=== PATIENT | male | born 1955 | race American Indian/Alaskan Native ===

== ENCOUNTER 2017-03-16 01:04 | Emergency (ER) | payer MEDICAID ==
--- NOTE | 2017-03-16 06:25 | Emergency Department Report ---
ED General Adult HPI - General Chief complaint: Back Pain/Injury Stated complaint: BACK & NECK PAIN Time Seen by Provider: 03/16/17 06:24 Source: patient Mode of arrival: Ambulatory Limitations: No Limitations - History of Present Illness Initial comments: Patient states that he is here for chronic neck and back pain. He denies any difficulty with his bowel movements or any change in his ability to urinate. He is end-stage renal failure patient on dialysis. This is his dialysis today. He reports no neurological change. He states he is scheduled for a lumbar fusion on Monday. He presents to the emergency department hypertensive. He states he last took his blood pressure medicine last night. -: year(s) Location: neck, back Radiation: non-radiation Quality: aching Consistency: intermittent Improves with: none Worsens with: none Associated Symptoms: denies other symptoms (intermittent mild shortness of breath), shortness of breath Treatments Prior to Arrival: none - Related Data Home Medications Medication Instructions Recorded Confirmed Last Taken Clonidine HCl [Catapres] 0.3 mg PO BID 05/21/15 02/13/17 02/13/17 05:00 Lisinopril [Zestril TAB] 20 mg PO BID 05/21/15 02/13/17 02/12/17 oxyCODONE [Roxicodone TAB] 5 mg PO Q6HR PRN 02/13/17 02/13/17 02/12/17 15:00 Previous Rx's Medication Instructions Recorded Last Taken Type Sulfamethoxazole/Trimethoprim 1 each PO BID #20 tablet 05/21/15 02/12/17 Rx [Bactrim DS TAB] Allergies Allergy/AdvReac Type Severity Reaction Status Date / Time aspirin Allergy Unknown Verified 03/16/17 01:25 bee venom (honey bee) Allergy Anaphylaxis Verified 03/16/17 01:27 pork derived (porcine) Allergy Rash Verified 03/16/17 01:27 Pork/Porcine Containing AdvReac Severe Nausea,VOMI Verified 02/13/17 09:31 Products TING ED Review of Systems ROS: Stated complaint: BACK & NECK PAIN Other details as noted in HPI Constitutional: denies: chills, fever Eyes: denies: eye pain, eye discharge, vision change ENT: denies: ear pain, throat pain Respiratory: SOB with exertion. denies: cough, SOB at rest, wheezing Cardiovascular: denies: chest pain, palpitations Endocrine: no symptoms reported Gastrointestinal: denies: abdominal pain, nausea, diarrhea Genitourinary: denies: urgency, dysuria Musculoskeletal: as per HPI, back pain. 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, dialysis - Surgical History Past Surgical History?: Yes Additional Surgical History: neck and back surgery x3 - Social History Smoking Status: Never Smoker Substance Use Type: None - Medications Home Medications: Home Medications Medication Instructions Recorded Confirmed Last Taken Type Clonidine HCl [Catapres] 0.3 mg PO BID 05/21/15 02/13/17 02/13/17 05:00 History Lisinopril [Zestril TAB] 20 mg PO BID 05/21/15 02/13/17 02/12/17 History Sulfamethoxazole/Trimethoprim 1 each PO BID #20 tablet 05/21/15 02/13/17 Rx [Bactrim DS TAB] oxyCODONE [Roxicodone TAB] 5 mg PO Q6HR PRN 02/13/17 02/13/17 02/12/17 15:00 History ED Physical Exam - General Limitations: No Limitations General appearance: alert, in no apparent distress - Head Head exam: Present: atraumatic, normocephalic - Eye Eye exam: Present: normal appearance. Absent: scleral icterus - ENT ENT exam: Present: mucous membranes moist - Neck Neck exam: Present: normal inspection, full ROM. Absent: tenderness, meningismus - Respiratory Respiratory exam: Present: normal lung sounds bilaterally. Absent: respiratory distress - Cardiovascular Cardiovascular Exam: Present: regular rate, normal rhythm. Absent: systolic murmur, diastolic murmur, rubs, gallop - GI/Abdominal GI/Abdominal exam: Present: soft, normal bowel sounds. Absent: distended, tenderness, guarding, rebound - Rectal Rectal exam: Present: deferred - Extremities Exam Extremities exam: Present: normal inspection, full ROM, other (straight-leg raises negative bilaterally) - Back Exam Back exam: Present: normal inspection - Neurological Exam Neurological exam: Present: alert, oriented X3, CN II-XII intact, reflexes normal (symmetrical). Absent: motor sensory deficit - Psychiatric Psychiatric exam: Present: normal affect, normal mood - Skin Skin exam: Present: warm, dry, intact, normal color. Absent: rash ED Course Vital Signs 03/16/17 03/16/17 03/16/17 01:11 01:14 01:16 Temperature 97.6 F 97.6 F 97.6 F Pulse Rate 45 L 88 88 Respiratory 18 18 18 Rate Blood Pressure 189/98 189/98 Blood Pressure 189/98 [Right] O2 Sat by Pulse 100 100 100 Oximetry 03/16/17 03/16/17 03/16/17 04:36 04:45 04:46 Temperature 97.4 F L Pulse Rate 83 Respiratory 19 Rate Blood Pressure 142/122 Blood Pressure 202/123 [Right] O2 Sat by Pulse 98 99 100 Oximetry 03/16/17 03/16/17 08:20 08:30 Temperature Pulse Rate Respiratory 16 Rate Blood Pressure 184/84 Blood Pressure [Right] O2 Sat by Pulse Oximetry - Reevaluation(s) Reevaluation #1: The patient was seen by the hospitalist nurse practitioner Kelly. She told me that the patient has elected to sign out AGAINST MEDICAL ADVICE. She advised the patient of the risks and benefits. He will be signing out AMA. I' ve given him Kayexalate as his potassium was 5.4. 03/16/17 10:37 ED Medical Decision Making - Lab Data Result diagrams: 03/16/17 07:51 03/16/17 07:51 Laboratory Results - last 24 hr 03/16/17 03/16/17 03/16/17 07:51 07:51 07:51 WBC 4.3 L RBC 3.52 L Hgb 11.5 L Hct 35.1 L MCV 100 H MCH 33 H MCHC 33 RDW 16.3 H Plt Count 134 L Lymph % (Auto) 31.9 [place] % (Auto) 10.8 H Eos % (Auto) 3.8 Baso % (Auto) 1.2 Lymph # 1.4 [place] # 0.5 Eos # 0.2 Baso # 0.1 Seg Neutrophils % 52.3 Seg Neutrophils # 2.3 PT 16.1 H INR 1.30 H APTT 33.1 Sodium 140 Potassium 5.4 H Chloride 96.4 L Carbon Dioxide 27 Anion Gap 22 BUN 36 H Creatinine 7.0 H Estimated GFR 10 BUN/Creatinine Ratio 5.14 Glucose 88 Calcium 10.0 Total Bilirubin 0.70 Direct Bilirubin 0.3 H Indirect Bilirubin 0.4 AST 25 ALT 19 Alkaline Phosphatase 70 Troponin T Total Protein 7.0 Albumin 3.6 L Albumin/Globulin Ratio 1.1 Triglycerides Cholesterol LDL Cholesterol Direct HDL Cholesterol Cholesterol/HDL Ratio 03/16/17 07:51 WBC RBC Hgb Hct MCV MCH MCHC RDW Plt Count Lymph % (Auto) [place] % (Auto) Eos % (Auto) Baso % (Auto) Lymph # [place] # Eos # Baso # Seg Neutrophils % Seg Neutrophils # PT INR APTT Sodium Potassium Chloride Carbon Dioxide Anion Gap BUN Creatinine Estimated GFR BUN/Creatinine Ratio Glucose Calcium Total Bilirubin Direct Bilirubin Indirect Bilirubin AST ALT Alkaline Phosphatase Troponin T 0.236 H* Total Protein Albumin Albumin/Globulin Ratio Triglycerides 71 Cholesterol 103 LDL Cholesterol Direct 43 L HDL Cholesterol 46 Cholesterol/HDL Ratio 2.23 - EKG Data -: EKG Interpreted by Me EKG shows normal: sinus rhythm, axis (left anterior fascicular block), intervals , QRS complexes, ST-T waves - EKG Data Interpretation: LVH (LVH 1 PVC noted and evidence of acute ischemia she was in V2 possibly consistent with old anteroseptal zone) - Radiology Data interpreted by me: Cardio megaly without decompensation on chest x-ray Critical care attestation.: If time is entered above; I have spent that time in minutes in the direct care of this critically ill patient, excluding procedure time. ED Disposition Clinical Impression: Uncontrolled hypertension, End-stage renal disease needing dialysis, Hyperkalemia, Elevated troponin Disposition: [id number] LEFT AGAINST MED ADVICE Is pt being admited?: No Does the pt Need Aspirin: No Condition: Stable Instructions: Hypertension (ED), End-Stage Kidney Disease (ED) Additional Instructions: Review of blood pressure is poorly controlled, your heart marker was elevated, your potassium was elevated. There were multiple reasons for used to be admitted for further stabilization on dialysis. You have elected to sign out AGAINST MEDICAL ADVICE. I would recommend that you go to dialysis clinic today. Referrals: HUGO FELIZ MD [Primary Care Provider] - [place] Forms: AMA Form Time of Disposition: 10:40
[2017-03-16] MEDS ORDERED: BENADRYL IV ONE (06:47)
[2017-03-16] MEDS ORDERED: MORPHINE IV ONE (06:47)
[2017-03-16] MEDS ORDERED: ZOFRAN IV ONE (06:47)
[2017-03-16] MEDS ORDERED: NORMODYNE IV ONE (06:48)
--- NOTE | 2017-03-16 07:40 | XRay Report ---
Single view chest: History: Hypertension. Findings: Cardiomegaly. Trachea is midline. No consolidation, pneumothorax or pleural effusion. Impression: Cardiomegaly. No lung changes.
[2017-03-16 08:01] LABS: Basophils % (Auto) 1.2 % (0.0-1.8); Eosinophils % (Auto) 3.8 % (0.0-4.3); Hematocrit 35.1 % (35.5-45.6); Hemoglobin 11.5 gm/dl (11.8-15.2); Mean Corpuscular HGB Conc 33 % (32-34); Mean Corpuscular Hemoglobin 33 pg (28-32); Mean Corpuscular Volume 100 fl (84-94); Platelet Count 134 K/mm3 (140-440); Red Blood Count 3.52 M/mm3 (3.65-5.03); Red Cell Distribution Width 16.3 % (13.2-15.2); White Blood Count 4.3 K/mm3 (4.5-11.0)
[2017-03-16 08:10] LABS: INR 1.3 (0.87-1.13)
[2017-03-16 08:12] LABS: Partial Thromboplastin Time 33.1 Sec. (24.2-36.6)
[2017-03-16 08:28] LABS: Alanine Aminotransferase 19 units/L (7-56); Albumin 3.6 g/dL (3.9-5); Albumin/Globulin Ratio 1.1 %; Alkaline Phosphatase 70 units/L (35-129); Anion Gap 22 mmol/L; BUN/Creatinine Ratio 5.14; Bilirubin,Direct 0.3 mg/dL (0-0.2); Bilirubin,Indirect 0.4 mg/dL; Blood Urea Nitrogen 36 mg/dL (9-20); Carbon Dioxide 27 mmol/L (22-30); Chloride 96.4 mmol/L (98-107); Glucose 88 mg/dL (75-100); Potassium 5.4 mmol/L (3.6-5.0); Sodium 140 mmol/L (137-145)
[2017-03-16] MEDS ORDERED: NITRO-BID 2% TP ONE (08:32)
[2017-03-16] MEDS ORDERED: KIONEX PO ONE (10:36)
[2017-03-16 12:29] VITALS: BP 155/103
== END 2017-03-16 11:42 | disposition left against medical advice (07) ==
LOC: ED 01:04
DX: I13.11 Hypertensive heart and chronic kidney disease without heart failure, with stage 5 chronic kidney disease, or end stage renal disease (principal); N18.6 End stage renal disease; Z99.2 Dependence on renal dialysis; E87.5 Hyperkalemia; R79.89 Other specified abnormal findings of blood chemistry
CPT/HCPCS: 36415; 71010; 80048; 80061; 80074; 83880; 84484; 85025; 85610; 85730; 93005; 93010; 96374; 96375; 99284; J1200; J2270; J2405

== ENCOUNTER 2018-08-18 18:35 | Inpatient (IN) | payer MEDICAID ==
--- NOTE | 2018-08-18 20:31 | Emergency Department Report ---
ED Chest Pain HPI - General Chief Complaint: Chest Pain Stated Complaint: CHEST PAIN Time Seen by Provider: 08/18/18 19:37 Source: patient Mode of arrival: Ambulatory Limitations: Physical Limitation - History of Present Illness Initial Comments: 71-year-old male with history of ESRD, CHF, afib, chronic respiratory failure, hypertension and diabetes presents to the ED with complaint of left-sided chest pain that began this evening. Onset while at rest, patient states he was laying in the bed. Patient states pain feels like a constant pressure. Also reports shortness of breath. Reports swelling to bilateral feet. Patient states he was dialyzed today. Nepgrology: Dr Blum PCP: Dr Alhaji WASSERMAN Complaint: chest pain -: This evening Onset: during rest Pain Location: left chest Pain Radiation: none Severity: moderate Severity scale (0 -10): 9 Quality: pressure Consistency: constant Improves With: nothing Worsens With: nothing re: diaphoresis, dyspnea Other Symptoms: denies: cough, fever Treatments Prior to Arrival: none - Related Data Previous Rx's Medication Instructions Recorded Last Taken Type Acetaminophen [Acetaminophen TAB] 650 mg PO Q4H PRN tablet 05/05/18 Unknown Rx FLUoxetine HCL [Fluoxetine HCl] 40 mg PO QDAY #30 capsule 05/05/18 Unknown Rx Famotidine [Pepcid] 10 mg PO BID #15 tablet 05/05/18 Unknown Rx Fe Fumarate/FA/Mv, Min Comb#15 1 each PO QDAY #30 capsule 05/05/18 Unknown Rx [Hemocyte Plus] Losartan [Cozaar] 100 mg PO QDAY 30 Days tablet 05/05/18 Unknown Rx Metoprolol Xl [Metoprolol 100 mg PO QDAY #30 tablet 05/05/18 Unknown Rx SUCCINATE ER TAB] diphenhydrAMINE [Benadryl CAP] 25 mg PO Q6H PRN #15 capsule 05/05/18 Unknown Rx oxyCODONE /ACETAMINOPHEN [Percocet 1 tab PO Q6H PRN #20 tablet 05/05/18 Unknown Rx 5/325 mg] Allergies Allergy/AdvReac Type Severity Reaction Status Date / Time aspirin Allergy Unknown Verified 03/16/17 01:25 pork derived (porcine) Allergy Rash Verified 03/16/17 01:27 venom-honey bee Allergy Anaphylaxis Verified 03/16/17 01:27 [bee venom (honey bee)] Pork/Porcine Containing AdvReac Severe Nausea,VOMI Verified 02/13/17 09:31 Products TING Heart Score - HEART Score History: Slightly suspicious EKG: Non-specific Age: > 65 Risk factors: 1-2 risk factors Troponin: 1-3x normal limit HEART Score: 5 ED Review of Systems ROS: Stated complaint: CHEST PAIN Other details as noted in HPI Comment: All other systems reviewed and negative Constitutional: denies: fever Respiratory: shortness of breath Cardiovascular: chest pain Musculoskeletal: other (reports pedal edema) ED Past Medical Hx - Past Medical History Previous Medical History?: Yes Hx Hypertension: Yes Hx Heart Attack/AMI: No Hx Congestive Heart Failure: Yes Hx Diabetes: Yes (IDDM) Hx Deep Vein Thrombosis: No Hx Renal Disease: No Hx Kidney Stones: No Hx Psychiatric Treatment: Yes (PTSD) Hx Asthma: No Hx COPD: No Additional medical history: 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, dialysis - Surgical History Past Surgical History?: Yes Hx Coronary Stent: No Hx Pacemaker: No Hx Internal Defibrillator: No Additional Surgical History: neck and back surgery x3 - Social History Smoking Status: Unknown if ever smoked Substance Use Type: None - Medications Home Medications: Home Medications Medication Instructions Recorded Confirmed Last Taken Type Acetaminophen [Acetaminophen TAB] 650 mg PO Q4H PRN tablet 05/05/18 Unknown Rx FLUoxetine HCL [Fluoxetine HCl] 40 mg PO QDAY #30 capsule 05/05/18 Unknown Rx Famotidine [Pepcid] 10 mg PO BID #15 tablet 05/05/18 Unknown Rx Fe Fumarate/FA/Mv, Min Comb#15 1 each PO QDAY #30 capsule 05/05/18 Unknown Rx [Hemocyte Plus] Losartan [Cozaar] 100 mg PO QDAY 30 Days tablet 05/05/18 Unknown Rx Metoprolol Xl [Metoprolol 100 mg PO QDAY #30 tablet 05/05/18 Unknown Rx SUCCINATE ER TAB] diphenhydrAMINE [Benadryl CAP] 25 mg PO Q6H PRN #15 capsule 05/05/18 Unknown Rx oxyCODONE /ACETAMINOPHEN [Percocet 1 tab PO Q6H PRN #20 tablet 05/05/18 Unknown Rx 5/325 mg] ED Physical Exam - General Limitations: Physical Limitation General appearance: alert, in no apparent distress, other (appears frail) - Head Head exam: Present: atraumatic, normocephalic - Eye Eye exam: Present: normal appearance - ENT ENT exam: Present: mucous membranes moist - Neck Neck exam: Present: normal inspection - Respiratory Respiratory exam: Present: normal lung sounds bilaterally. Absent: respiratory distress - Cardiovascular Cardiovascular Exam: Present: regular rate, normal rhythm - GI/Abdominal GI/Abdominal exam: Present: soft. Absent: distended, tenderness - Extremities Exam Extremities exam: Present: pedal edema. Absent: calf tenderness - Neurological Exam Neurological exam: Present: alert, oriented X3 - Psychiatric Psychiatric exam: Present: normal affect, normal mood - Skin Skin exam: Present: warm, dry, intact, normal color ED Course Vital Signs 08/18/18 08/18/18 08/18/18 19:16 19:27 19:31 Temperature 98.7 F Pulse Rate 92 H 94 H 91 H Respiratory 14 14 24 Rate Blood Pressure 157/122 156/111 O2 Sat by Pulse 100 100 Oximetry 08/18/18 08/18/18 08/18/18 19:45 20:01 20:15 Temperature Pulse Rate 86 98 H 88 Respiratory 16 17 23 Rate Blood Pressure 156/111 149/112 160/115 O2 Sat by Pulse 100 100 100 Oximetry 08/18/18 08/18/18 08/18/18 20:31 20:45 21:01 Temperature Pulse Rate 89 92 H 94 H Respiratory 19 31 H 25 H Rate Blood Pressure 160/111 153/124 145/117 O2 Sat by Pulse 100 100 100 Oximetry 08/18/18 08/18/18 08/18/18 21:15 21:30 21:45 Temperature Pulse Rate 88 88 87 Respiratory 23 22 31 H Rate Blood Pressure 151/115 161/116 159/116 O2 Sat by Pulse 100 100 100 Oximetry 08/19/18 08/19/18 00:57 01:00 Temperature Pulse Rate 88 84 Respiratory Rate Blood Pressure 156/113 151/113 O2 Sat by Pulse Oximetry ED Medical Decision Making - Lab Data Result diagrams: 08/18/18 19:51 08/18/18 19:58 - EKG Data -: EKG Interpreted by Ri EKG shows normal: intervals, QRS complexes Rate: normal - EKG Data When compared to previous EKG there are: no significant change (04/24/18) Interpretation: no acute changes, other (Afib, LAFB) - Radiology Data Radiology results: pending, image reviewed CXR: moderate sized left-sided pleural effusion w/ adjacent consolidation. Small to moderate right-sided pleural effusion w/ hazy opacities right mid to lower lung. Findings are nonspecific and could reflect bilateral pneumonia or edema. Radiology reports not crossing into [place] due to tech issues; results faxed to ED - Medical Decision Making 71-year-old male who issues and seizure related disease and CHF who presents to ED with left-sided constant chest pain since earlier today. Reports associated shortness of breath as well. Patient has large bilateral pleural effusions, left greater than right. Also a consolidation in left upper lobe. Patient is afebrile, wbc's normal, however will cover with a dose of Levaquin for possible pneumonia. EKG shows A. fib with normal rate, no ST changes. Troponin elevated 0.2, however this may be due to patient's renal disease. Unable to give aspirin as patient is allergic. Spoke with Dr Saez, hospitalist, for admission. - Differential Diagnosis ACS, pneumonia, pulm edema Critical care attestation.: If time is entered above; I have spent that time in minutes in the direct care of this critically ill patient, excluding procedure time. ED Disposition Clinical Impression: Pleural effusion, Chest pain Disposition: OP ADMIT IP TO THIS HOSP Is pt being admited?: Yes Condition: Stable Time of Disposition: 22:48
[2018-08-18 20:36] LABS: Basophils % (Auto) 0.5 % (0.0-1.8); Eosinophils % (Auto) 0.5 % (0.0-4.3); Hematocrit 27.7 % (35.5-45.6); Hemoglobin 9.4 gm/dl (11.8-15.2); Lymphocytes # (Auto) 0.9 K/mm3 (1.2-5.4); Lymphocytes % (Auto) 22.1 % (13.4-35.0); Mean Corpuscular HGB Conc 34 % (32-34); Mean Corpuscular Volume 98 fl (84-94); Monocytes # (Auto) 0.3 K/mm3 (0.0-0.8); Monocytes % (Auto) 7.5 % (0.0-7.3); Red Blood Count 2.82 M/mm3 (3.65-5.03)
[2018-08-18 20:46] LABS: Platelet Count 82 K/mm3 (140-440); Red Cell Distribution Width 22.8 % (13.2-15.2)
[2018-08-18 20:49] LABS: Calcium 8.2 mg/dL (8.4-10.2)
[2018-08-18 20:50] LABS: INR 1.33 (0.87-1.13); Partial Thromboplastin Time 36.1 Sec. (24.2-36.6)
[2018-08-18] MEDS ORDERED: MORPHINE IV ONE (21:03)
[2018-08-18] MEDS ORDERED: ZOFRAN IV ONE (21:03)
[2018-08-18] MEDS ORDERED: K-DUR PO ONE (21:30)
[2018-08-18] MEDS ORDERED: LEVAQUIN 750MG/150ML 750 MG/150 ML BAG IV ONE (22:47)
--- NOTE | 2018-08-18 22:57 | History and Physical Report ---
History of Present Illness Date of examination: 08/18/18 History of present illness: 71-year-old man with a history of end-stage renal disease on dialysis, hypertension, CHF, A. fib, coronary artery disease, PTSD comes emergency room with complaints of chest pain. Pain is in the left chest which he describes as sharp pain, feeling like someone stepping on it, constant, intensity 5/10, no radiation, Other than her exacerbating or relieving factors. Denies nausea vomiting, diaphoresis or palpitation. He has baseline shortness of breath which has not worsened, also complaining of cough, nonproductive, no fever or chills Review of systems Constitutional: no weight loss, chills, fever Ears, eyes, nose, mouth and throat: no nasal congestion, no nasal discharge, no sinus pressure, no vision change, no red eye. Neck: No neck pain or rigidity. Cardiovascular: no palpitations Respiratory: + cough, shortness of breath Gastrointestinal: no hematochezia, abdominal pain Genitourinary : no frequency , no hematuria Musculoskeletal: no joint swelling or muscle ache Integumentary: no rash, no pruritis Neurological: no parathesias, no focal weakness Endocrine: no cold or heat intolerance, no polyuria or polydipsia Hematologic/Lymphatic: no easy bruising, no easy bleeding, no gland swelling Allergic/Immunologic: no urticaria, no angioedema. PAST MEDICAL HISTORY: end-stage renal disease on dialysis, hypertension, CHF, A. fib PAST SURGICAL HISTORY: Left arm amputation, multiple fingers amputation, AV fistula, neck and back surgery SOCIAL HISTORY: Denies alcohol, drugs, tobacco FAMILY HISTORY: Hypertension Medications and Allergies Allergies Allergy/AdvReac Type Severity Reaction Status Date / Time aspirin Allergy Unknown Verified 03/16/17 01:25 pork derived (porcine) Allergy Rash Verified 03/16/17 01:27 venom-honey bee Allergy Anaphylaxis Verified 03/16/17 01:27 [bee venom (honey bee)] Pork/Porcine Containing AdvReac Severe Nausea,VOMI Verified 02/13/17 09:31 Products TING Home Medications Medication Instructions Recorded Confirmed Last Taken Type Acetaminophen [Acetaminophen TAB] 650 mg PO Q4H PRN tablet 05/05/18 Unknown Rx FLUoxetine HCL [Fluoxetine HCl] 40 mg PO QDAY #30 capsule 05/05/18 Unknown Rx Famotidine [Pepcid] 10 mg PO BID #15 tablet 05/05/18 Unknown Rx Fe Fumarate/FA/Mv, Min Comb#15 1 each PO QDAY #30 capsule 05/05/18 Unknown Rx [Hemocyte Plus] Losartan [Cozaar] 100 mg PO QDAY 30 Days tablet 05/05/18 Unknown Rx Metoprolol Xl [Metoprolol 100 mg PO QDAY #30 tablet 05/05/18 Unknown Rx SUCCINATE ER TAB] diphenhydrAMINE [Benadryl CAP] 25 mg PO Q6H PRN #15 capsule 05/05/18 Unknown Rx oxyCODONE /ACETAMINOPHEN [Percocet 1 tab PO Q6H PRN #20 tablet 05/05/18 Unknown Rx 5/325 mg] Active Meds: Active Medications Levofloxacin/Dextrose (Levaquin 750mg/150ml) 750 mg in 150 mls @ 100 mls/hr IV ONCE ONE Stop: 08/19/18 00:16 Exam - Physical Exam Narrative exam: General Apperance: The patient lying in bed, breathing comfortable HEENT: Normocephalic, atraumatic. Pupils equally round and reactive to light, EOMI, no sclericterus or JVD or thyromegaly or nodule. , no carotid bruit, mucous membranes moist, no exudate or erythema Heart: S1-S2, regular is rhythm Lungs: Decreased breath sounds bilaterally, breathing comfortable Abdomen: Positive bowel sounds, soft, nontender, nondistended, no organomegaly Extremities: amputation of the left arm, No edema cyanosis clubbing Skin: no rash, nodule, warm and dry Neuro: cranial nerves 2-12 intact, speech is fluent, motor/sensory intact - Constitutional Vitals: Temp Pulse Resp BP Pulse Ox 98.7 F 87 31 H 159/116 100 08/18/18 19:27 08/18/18 21:45 08/18/18 21:45 08/18/18 21:45 08/18/18 21:45 Results - Labs CBC & Chem 7: 08/18/18 19:51 08/18/18 19:58 Labs: Abnormal lab results 08/18/18 08/18/18 08/18/18 Range/Units 19:51 19:58 19:58 WBC 4.0 L (4.5-11.0) K/mm3 RBC 2.82 L (3.65-5.03) M/mm3 Hgb 9.4 L (11.8-15.2) gm/dl Hct 27.7 L (35.5-45.6) % MCV 98 H (84-94) fl MCH 33 H (28-32) pg RDW 22.8 H (13.2-15.2) % Plt Count 82 L (140-440) K/mm3 [place] % (Auto) 7.5 H (0.0-7.3) % Lymph # 0.9 L (1.2-5.4) K/mm3 PT 17.3 H (12.2-14.9) Sec. INR 1.33 H (0.87-1.13) Potassium (3.6-5.0) mmol/L Creatinine (0.8-1.5) mg/dL Calcium (8.4-10.2) mg/dL Troponin T 0.205 H* (0.00-0.029) ng/mL 08/18/18 Range/Units 19:58 WBC (4.5-11.0) K/mm3 RBC (3.65-5.03) M/mm3 Hgb (11.8-15.2) gm/dl Hct (35.5-45.6) % MCV (84-94) fl MCH (28-32) pg RDW (13.2-15.2) % Plt Count (140-440) K/mm3 [place] % (Auto) (0.0-7.3) % Lymph # (1.2-5.4) K/mm3 PT (12.2-14.9) Sec. INR (0.87-1.13) Potassium 2.6 L* (3.6-5.0) mmol/L Creatinine 2.6 H (0.8-1.5) mg/dL Calcium 8.2 L (8.4-10.2) mg/dL Troponin T (0.00-0.029) ng/mL - Imaging and Cardiology Chest x-ray: report reviewed CT scan - chest: report reviewed Assessment and Plan Assessment Community-acquired pneumonia Chest pain Pleural effusion Coronary artery disease CHF A. fib Hypertension End-stage renal disease on dialysis PTSD Thrombocytopenia Plan Admit to medicine Start IV Levaquin, check cardiac enzymes, consult cardiology Consult renal for dialysis, pulmonary Continue appropriate outpatient medications DVT prophylaxis
[2018-08-18 23:00] LABS: Chol/HDL Ratio 1.58 %
[2018-08-18] MEDS: PERCOCET 5/325 PO PRN (23:00)
--- NOTE | 2018-08-18 23:20 | XRay Report ---
XR CHEST 1V AP CLINICAL INDICATION: Male, 71 years of age. chest pain COMPARISON: April 2018. Findings: Frontal view(s) of the chest obtained. Mild cardiac enlargement. Right IJ line and tunnele d catheter remains in place. Moderate to large left-sided pleural effusion increase in size from prio r study. Small to moderate right-sided pleural effusion. Hazy opacities right mid to lower lung. Mult iple surgical clips in the upper abdomen. No gross pneumothorax. IMPRESSION: Moderate size left-sided pleural effusion with adjacent consolidation. [id number] right-sided pleural effusion with hazy opacities right mid to lower lung. Findings are nonspecific and could refl ect bilateral pneumonia or edema. This document is electronically signed by Shawn Gama DO., August 18 2018 07:55:35 PM ET
--- NOTE | 2018-08-18 23:41 | Cat Scan Report ---
PROCEDURE: CT CHEST WO CON TECHNIQUE: Computerized axial tomography of the chest was performed without contrast material. This study is performed without intravenous contrast and the sensitivity for pathology, including neoplasm s, adenopathy, abscess, pulmonary embolism and aortic dissection, is reduced. HISTORY: sob, abnormal cxr COMPARISONS: X-ray chest also performed today and CT chest dated April 30, 2018 . FINDINGS: There are large bilateral pleural fluid collections, left greater than right, with associated meron sive atelectasis in the adjacent lung. There is pulmonary consolidation without volume loss, possible pulmonary infiltrate in the left upper lobe. There is a focus of nodular consolidation in the posterior aspect of the right upper lobe. The trachea and bronchi are patent. The heart is markedly enlarged with atherosclerotic vascular calcification of the coronary arteries. A right central venous double-lumen catheter is demonstrated with the tip in the right atrium. A vascular stent is demonstrated in the left subclavian vein. There is mild aneurysmal dilatation of the descending thoracic aorta (4.3 cm) and posterior aortic ar ch (3.7 cm) similar in appearance to the previous study. There is no evidence of intrathoracic adenopathy. The visualized portion of the upper abdomen is notable for surgical clips in the upper abdomen, exten sive atherosclerotic vascular calcification of the large, medium and small caliber arteries and numer ous bilateral renal cysts. The bony structures are notable for changes consistent with chronic renal disease. There is retained hardware in the cervical and upper thoracic spine. There is lucency surrounding the most inferior screws that is similar in appearance to the previous study. This can be indicative of loosening of the hardware. This is not significantly changed in the interval. IMPRESSION: 1. Large bilateral pleural effusions, left greater than right, with associated compressive atelectasi s. 2. Pulmonary consolidation in left upper lobe without volume loss which may represent a pulmonary inf iltrate. 3. Marked cardiomegaly. 4. Double-lumen central venous catheter with tip in the right atrium. 5. Stent in the left subclavian vein. 6. No significant change in mild aneurysmal dilatation of the thoracic aorta. 7. No significant change in lucency surrounding the most inferior screws in the upper thoracic spine and bony changes consistent with chronic renal disease. This document is electronically signed by Grace Calles MD., August 18 2018 11:38:44 PM ET
[2018-08-18] MEDS ORDERED: TYLENOL PO PRN (23:42)
[2018-08-18] MEDS ORDERED: SODIUM CHLORIDE FLUSH SYRINGE 10 ML IV PRN (23:42)
[2018-08-18] MEDS ORDERED: ZOFRAN IV PRN (23:42)
[2018-08-19 00:38] LABS: Creatine Kinase MB 3.1 ng/mL (0.0-4.0)
[2018-08-19] MEDS: CATAPRES PO ONE ×2 (00:57→01:00)
[2018-08-19] MEDS ORDERED: LEVAQUIN 750MG/150ML 750 MG/150 ML BAG IV ONE (01:16)
[2018-08-19] MEDS ORDERED: CATAPRES ONE (01:18)
[2018-08-19] MEDS ORDERED: APRESOLINE IV ONE (01:32)
[2018-08-19] MEDS: PERCOCET 5/325 PO PRN ×4 (03:29→21:49)
[2018-08-19 07:44] LABS: Basophils % (Auto) 0.7 % (0.0-1.8); Eosinophils % (Auto) 0.6 % (0.0-4.3); Hematocrit 29.6 % (35.5-45.6); Hemoglobin 9.6 gm/dl (11.8-15.2); Lymphocytes # (Auto) 0.9 K/mm3 (1.2-5.4); Lymphocytes % (Auto) 27.7 % (13.4-35.0); Mean Corpuscular HGB Conc 32 % (32-34); Mean Corpuscular Volume 101 fl (84-94); Monocytes # (Auto) 0.3 K/mm3 (0.0-0.8); Monocytes % (Auto) 8.6 % (0.0-7.3); Red Blood Count 2.92 M/mm3 (3.65-5.03)
[2018-08-19 07:53] LABS: Creatine Kinase MB 2.7 ng/mL (0.0-4.0)
[2018-08-19 07:58] LABS: Calcium 8.2 mg/dL (8.4-10.2)
[2018-08-19 07:59] LABS: Platelet Count 81 K/mm3 (140-440); Red Cell Distribution Width 22.8 % (13.2-15.2)
--- NOTE | 2018-08-19 10:04 | Progress Note ---
Assessment and Plan Assessment and plan: --Atypical chest pain; probably noncardiac Heart cath ; single vessel disease with moderate severity, nonobstructive stenosis of proximal LAD, Dilated cardiomyopathy EF 30% Continue current management, cardiology consult if needed --Nonspecific chronic elevation of troponins; Consult cardiology if needed --Large bilateral pleural effusion left more than right; Patient had thoracentesis in the past, pulmonary consulted Possible thoracentesis if needed --Hypokalemia; received supplementation Repeat potassium levels within normal limits, follow electrolytes --End-stage renal disease; on hemodialysis TTS Nephrology following, HD per scheduled --Hypertension; moderate control, continue current antihypertensives ,PRN meds --DVT prophylaxis; heparin renal dose Closely monitor the patient and adjust management as needed Plan of care reviewed with the patient and his nurse --Full Code History Interval history: Patient seen and examined medical records reviewed Patient feels slightly better denies any chest pain or shortness of breath Alert awake oriented , vital signs reviewed Hospitalist Physical - Constitutional Vitals: Temp Pulse Resp BP Pulse Ox 97.8 F 88 18 146/116 100 08/19/18 09:06 08/19/18 09:06 08/19/18 09:06 08/19/18 09:06 08/19/18 09:06 General appearance: Present: no acute distress, well-nourished - EENT Eyes: Present: PERRL, EOM intact - Neck Neck: Present: supple, normal ROM - Respiratory Respiratory effort: normal Respiratory: bilateral: diminished (left more than right), rales, negative: rh onchi, wheezing - Cardiovascular Rhythm: regular Heart Sounds: Present: S1 & S2 - Extremities Extremities: no ischemia, No edema - Abdominal General gastrointestinal: soft, non-tender, non-distended, normal bowel sounds - Integumentary Integumentary: Present: clear, warm - Psychiatric Psychiatric: appropriate mood/affect, cooperative - Neurologic Neurologic: moves all extremities Results - Labs CBC & Chem 7: 08/19/18 07:04 08/19/18 07:04 Labs: Laboratory Last Values WBC 3.2 K/mm3 (4.5-11.0) L 08/19/18 07:04 RBC 2.92 M/mm3 (3.65-5.03) L 08/19/18 07:04 Hgb 9.6 gm/dl (11.8-15.2) L 08/19/18 07:04 Hct 29.6 % (35.5-45.6) L 08/19/18 07:04 MCV 101 fl (84-94) H 08/19/18 07:04 MCH 33 pg (28-32) H 08/19/18 07:04 MCHC 32 % (32-34) 08/19/18 07:04 RDW 22.8 % (13.2-15.2) H 08/19/18 07:04 Plt Count 81 K/mm3 (140-440) L 08/19/18 07:04 Lymph % (Auto) 27.7 % (13.4-35.0) 08/19/18 07:04 [place] % (Auto) 8.6 % (0.0-7.3) H 08/19/18 07:04 Eos % (Auto) 0.6 % (0.0-4.3) 08/19/18 07:04 Baso % (Auto) 0.7 % (0.0-1.8) 08/19/18 07:04 Lymph # 0.9 K/mm3 (1.2-5.4) L 08/19/18 07:04 [place] # 0.3 K/mm3 (0.0-0.8) 08/19/18 07:04 Eos # 0.0 K/mm3 (0.0-0.4) 08/19/18 07:04 Baso # 0.0 K/mm3 (0.0-0.1) 08/19/18 07:04 Seg Neutrophils % 62.4 % (40.0-70.0) 08/19/18 07:04 Seg Neutrophils # 2.0 K/mm3 (1.8-7.7) 08/19/18 07:04 PT 17.3 Sec. (12.2-14.9) H 08/18/18 19:58 INR 1.33 (0.87-1.13) H 08/18/18 19:58 APTT 36.1 Sec. (24.2-36.6) 08/18/18 19:58 Sodium 141 mmol/L (137-145) 08/19/18 07:04 Potassium 3.7 mmol/L (3.6-5.0) D 08/19/18 07:04 Chloride 102.9 mmol/L (98-107) 08/19/18 07:04 Carbon Dioxide 24 mmol/L (22-30) 08/19/18 07:04 Anion Gap 18 mmol/L 08/19/18 07:04 BUN 23 mg/dL (9-20) H 08/19/18 07:04 Creatinine 2.9 mg/dL (0.8-1.5) H 08/19/18 07:04 Estimated GFR 26 ml/min 08/19/18 07:04 BUN/Creatinine Ratio 8 % 08/19/18 07:04 Glucose 85 mg/dL (75-100) 08/19/18 07:04 Calcium 8.2 mg/dL (8.4-10.2) L 08/19/18 07:04 Total Creatine Kinase 29 units/L (55-170) L 08/19/18 07:04 CK-MB (CK-2) 2.7 ng/mL (0.0-4.0) 08/19/18 07:04 CK-MB (CK-2) Rel Index 9.3 (0-4) H 08/19/18 07:04 Troponin T 0.191 ng/mL (0.00-0.029) H* 08/19/18 07:04 NT-Pro-B Natriuret Pep 38562 pg/mL (0-900) H 08/18/18 19:58 Triglycerides 67 mg/dL (2-149) 08/18/18 19:58 Cholesterol 68 mg/dL (50-199) 08/18/18 19:58 LDL Cholesterol Direct 16 mg/dL (50-130) L 08/18/18 19:58 HDL Cholesterol 43 mg/dL (40-59) 08/18/18 19:58 Cholesterol/HDL Ratio 1.58 % 08/18/18 19:58
[2018-08-19] MEDS: SODIUM CHLORIDE FLUSH SYRINGE 10 ML IV SCH ×2 (10:37→21:50)
--- NOTE | 2018-08-19 11:32 | Consultation ---
History of Present Illness - Reason for Consult Consult date: 08/19/18 end stage renal disease Requesting physician: EVER RESENDEZ - History of Present Illness 71-year-old man with a history of end-stage renal disease on dialysis, hypertension, CHF, A. fib, coronary artery disease, PTSD comes emergency room with complaints of chest pain. Pain is in the left chest which he describes as sharp pain, feeling like someone stepping on it, constant, intensity 5/10, no r adiation, Other than her exacerbating or relieving factors. Denies nausea vomiting, diaphoresis or palpitation. He has baseline shortness of breath which has not worsened, also complaining of cough, nonproductive, no fever or chills Past History Past Medical History: atrial fib, CAD, dialysis, heart failure, hypertension Past Surgical History: Other (history of creation of AV fistula and left hand amputation) Social history: no significant social history Family history: no significant family history Medications and Allergies Allergies Allergy/AdvReac Type Severity Reaction Status Date / Time aspirin Allergy Unknown Verified 03/16/17 01:25 pork derived (porcine) Allergy Rash Verified 03/16/17 01:27 venom-honey bee Allergy Anaphylaxis Verified 03/16/17 01:27 [bee venom (honey bee)] Pork/Porcine Containing AdvReac Severe Nausea,VOMI Verified 02/13/17 09:31 Products TING Home Medications Medication Instructions Recorded Confirmed Last Taken Type Acetaminophen [Acetaminophen TAB] 650 mg PO Q4H PRN tablet 05/05/18 Unknown Rx FLUoxetine HCL [Fluoxetine HCl] 40 mg PO QDAY #30 capsule 05/05/18 Unknown Rx Famotidine [Pepcid] 10 mg PO BID #15 tablet 05/05/18 Unknown Rx Fe Fumarate/FA/Mv, Min Comb#15 1 each PO QDAY #30 capsule 05/05/18 Unknown Rx [Hemocyte Plus] Losartan [Cozaar] 100 mg PO QDAY 30 Days tablet 05/05/18 Unknown Rx Metoprolol Xl [Metoprolol 100 mg PO QDAY #30 tablet 05/05/18 Unknown Rx SUCCINATE ER TAB] diphenhydrAMINE [Benadryl CAP] 25 mg PO Q6H PRN #15 capsule 05/05/18 Unknown Rx oxyCODONE /ACETAMINOPHEN [Percocet 1 tab PO Q6H PRN #20 tablet 05/05/18 Unknown Rx 5/325 mg] Active Meds: Active Medications Acetaminophen (Tylenol) 650 mg PO Q4H PRN PRN Reason: Pain MILD(1-3)/Fever >100.5/DOUGLAS Levofloxacin/Dextrose (Levaquin 250mg/50ml) 250 mg in 50 mls @ 50 mls/hr IV Q24HR BEAN; Protocol Ondansetron HCl (Zofran) 4 mg IV Q4H PRN PRN Reason: Nausea And Vomiting Oxycodone/Acetaminophen (Percocet 5/325) 1 tab PO Q4H PRN PRN Reason: Pain, Moderate (4-6) Last Admin: 08/19/18 07:27 Dose: 1 tab Documented by: Sodium Chloride (Sodium Chloride Flush Syringe 10 Ml) 10 ml IV BID BEAN Last Admin: 08/19/18 10:37 Dose: 10 ml Documented by: Sodium Chloride (Sodium Chloride Flush Syringe 10 Ml) 10 ml IV PRN PRN PRN Reason: LINE FLUSH Review of Systems All systems: negative (except as noted above) Exam - Vital Signs Vital signs: Vital Signs Pulse Resp 92 H 14 08/18/18 19:16 08/18/18 19:16 - General Appearance General appearance: chronically ill, frail EENT: PERRL, mucous membranes moist Neck: Present: neck supple, trachea midline, Other (right IJ PermCath in place). Absent: JVD/HJR, Masses Respiratory: Clear to Ascultation Heart: irregular Gastrointestinal: Present: normal. Absent: tenderness, distended, masses, guarding Integumentary: other (no edema. Left hand has been amputated) Results - Lab Results 08/19/18 07:04 08/19/18 07:04 Most recent lab results Calcium 8.2 mg/dL (8.4-10.2) L 08/19/18 07:04 Assessment and Plan Impression * End-stage renal disease and maintenance hemodialysis * Chest pain * Severe peripheral vascular disease * Hypertension * Chronic atrial fibrillation * Coronary artery disease * History of CHF * Anemia secondary to ESRD Recommendations * Patient undergoes dialysis on TTS schedule continue hemodialysis under the ca re of Dr. Canseco * He did complete his dialysis treatment yesterday. No indication for dialysis today * Plan to continue him on his outpatient schedule * Chest pain workup as per primary team and cardiology services * Adjust diet and admits for ESRD state * Binders with meals * Procrit per protocol * Thank you very much for the consultation. Shall follow along with you
[2018-08-19] MEDS ORDERED: D50W (25GM) Syringe IV ONE (12:00)
--- NOTE | 2018-08-19 15:40 | Consultation ---
History of Present Illness Consult date: 08/19/18 Requesting physician: EVER RESENDEZ Reason for consult: pleural effusion History of present illness: Patient well known to me as I saw him last admission for the same complaint. Admitted with left sided chest pain and found to have large left sided effusion. Patient had same effusion prior admit, tapped and transudate. He is on HD but i'm not sure if they can pull more fluid. Past History Past Medical History: atrial fib, CAD, dialysis, heart failure, hypertension, other (pleural effusion) Past Surgical History: Other (history of creation of AV fistula and left hand amputation) Social history: no significant social history Family history: no significant family history Medications and Allergies Allergies Allergy/AdvReac Type Severity Reaction Status Date / Time aspirin Allergy Unknown Verified 03/16/17 01:25 pork derived (porcine) Allergy Rash Verified 03/16/17 01:27 venom-honey bee Allergy Anaphylaxis Verified 03/16/17 01:27 [bee venom (honey bee)] Pork/Porcine Containing AdvReac Severe Nausea,VOMI Verified 02/13/17 09:31 Products TING Home Medications Medication Instructions Recorded Confirmed Last Taken Type Acetaminophen [Acetaminophen TAB] 650 mg PO Q4H PRN tablet 05/05/18 Unknown Rx FLUoxetine HCL [Fluoxetine HCl] 40 mg PO QDAY #30 capsule 05/05/18 Unknown Rx Famotidine [Pepcid] 10 mg PO BID #15 tablet 05/05/18 Unknown Rx Fe Fumarate/FA/Mv, Min Comb#15 1 each PO QDAY #30 capsule 05/05/18 Unknown Rx [Hemocyte Plus] Losartan [Cozaar] 100 mg PO QDAY 30 Days tablet 05/05/18 Unknown Rx Metoprolol Xl [Metoprolol 100 mg PO QDAY #30 tablet 05/05/18 Unknown Rx SUCCINATE ER TAB] diphenhydrAMINE [Benadryl CAP] 25 mg PO Q6H PRN #15 capsule 05/05/18 Unknown Rx oxyCODONE /ACETAMINOPHEN [Percocet 1 tab PO Q6H PRN #20 tablet 05/05/18 Unknown Rx 5/325 mg] Active Meds: Active Medications Acetaminophen (Tylenol) 650 mg PO Q4H PRN PRN Reason: Pain MILD(1-3)/Fever >100.5/DOUGLAS Levofloxacin/Dextrose (Levaquin 250mg/50ml) 250 mg in 50 mls @ 50 mls/hr IV Q24HR BEAN; Protocol Ondansetron HCl (Zofran) 4 mg IV Q4H PRN PRN Reason: Nausea And Vomiting Oxycodone/Acetaminophen (Percocet 5/325) 1 tab PO Q4H PRN PRN Reason: Pain, Moderate (4-6) Last Admin: 08/19/18 14:37 Dose: 1 tab Documented by: Sodium Chloride (Sodium Chloride Flush Syringe 10 Ml) 10 ml IV BID BEAN Last Admin: 08/19/18 10:37 Dose: 10 ml Documented by: Sodium Chloride (Sodium Chloride Flush Syringe 10 Ml) 10 ml IV PRN PRN PRN Reason: LINE FLUSH Review of Systems All systems: negative Physical Examination Vital signs: Vital Signs Pulse Resp 92 H 14 08/18/18 19:16 08/18/18 19:16 General appearance: other (cachectic) Eyes: non-icteric Neck: supple Effort: normal Ascultation: Left: diminished breath sounds Percussion: Left: dull Tactile fremitus: Left: diminished Cardiovascular: regular rate and rhythm Gastrointestinal: soft Extremities: other (no left hand. impaired dark digits maybe from renal disease or PVD) normal mental status Results - Laboratory Findings CBC and BMP: 08/19/18 07:04 08/19/18 07:04 PT/INR, D-dimer PT 17.3 Sec. (12.2-14.9) H 08/18/18 19:58 INR 1.33 (0.87-1.13) H 08/18/18 19:58 Abnormal lab findings: Abnormal Labs 08/18/18 08/18/18 08/18/18 19:51 19:58 19:58 WBC 4.0 L RBC 2.82 L Hgb 9.4 L Hct 27.7 L MCV 98 H MCH 33 H RDW 22.8 H Plt Count 82 L [place] % (Auto) 7.5 H Lymph # 0.9 L PT 17.3 H INR 1.33 H Potassium BUN Creatinine Calcium Total Creatine Kinase CK-MB (CK-2) Rel Index Troponin T 0.205 H* NT-Pro-B Natriuret Pep 99879 H LDL Cholesterol Direct 16 L 08/18/18 08/19/18 08/19/18 19:58 00:06 07:04 WBC 3.2 L RBC 2.92 L Hgb 9.6 L Hct 29.6 L MCV 101 H MCH 33 H RDW 22.8 H Plt Count 81 L [place] % (Auto) 8.6 H Lymph # 0.9 L PT INR Potassium 2.6 L* BUN Creatinine 2.6 H Calcium 8.2 L Total Creatine Kinase 32 L CK-MB (CK-2) Rel Index 9.6 H Troponin T 0.190 H* NT-Pro-B Natriuret Pep LDL Cholesterol Direct 08/19/18 08/19/18 07:04 07:04 WBC RBC Hgb Hct MCV MCH RDW Plt Count [place] % (Auto) Lymph # PT INR Potassium BUN 23 H Creatinine 2.9 H Calcium 8.2 L Total Creatine Kinase 29 L CK-MB (CK-2) Rel Index 9.3 H Troponin T 0.191 H* NT-Pro-B Natriuret Pep LDL Cholesterol Direct - Diagnostic Findings Chest x-ray: image reviewed (large left sided effusion) Assessment and Plan 71 y/o male with chronic effusions, left greater than right. 1. Patient states that he is short of breath but clinically does not appear to be in distress 2. Effusion was a transudate, if possible would suggest pulling more on HD but likely not able to 3. 2 options. Drain now and see how fast it comes back, last time took 2 months, or see if there is an stable family member who can be relied on to learn the Pleurx draining technique and place catheter. he is going to talk to his .
[2018-08-20] MEDS: PERCOCET 5/325 PO PRN ×3 (02:19→17:07)
[2018-08-20] MEDS: APRESOLINE IV PRN (05:16)
[2018-08-20 06:24] LABS: Calcium 8.6 mg/dL (8.4-10.2)
--- NOTE | 2018-08-20 09:23 | Progress Note ---
Assessment and Plan Impression * End-stage renal disease and maintenance hemodialysis * Bilateral pleural effusion * Chest pain * Severe peripheral vascular disease * Hypertension * Chronic atrial fibrillation * Coronary artery disease * History of CHF * Anemia secondary to ESRD Recommendations * Patient undergoes dialysis on TTS schedule under the care of Dr. Canseco * He does have large pleural effusion on the left side. * Pulmonary consultation appreciated. He will most likely require thoracentesis * Shall attempt dialysis today and remove fluid as tolerated * Adjust diet and admits for ESRD state * Binders with meals * Procrit per protocol Subjective Date of service: 08/20/18 Interval history: Patient states that he has some chest pain and shortness of breath last night. Appears comfortable this morning. Denies any nausea or vomiting Objective - Vital Signs Vital signs: Vital Signs - 12hr 08/19/18 08/20/18 08/20/18 23:47 04:35 08:30 Temperature 97.6 F 97.5 F L 98.6 F Pulse Rate 64 86 91 H Respiratory 18 18 16 Rate Blood Pressure 141/106 145/115 141/102 O2 Sat by Pulse 100 100 100 Oximetry - General Appearance General appearance: chronically ill, frail, other (pleasant -[place]ian male) EENT: PERRL, mucous membranes moist Neck: no JVD, no thyromegaly, no carotid bruit, supple, other (right IJ PermCath in place) Respiratory: Present: Decreased Breath Sounds (at the bases) Cardiology: irregular Gastrointestinal: normal, normoactive bowel sounds Integumentary: other (left hand has been amputated) - Lab 08/19/18 07:04 08/20/18 05:46 Most recent lab results Calcium 8.6 mg/dL (8.4-10.2) 08/20/18 05:46 Medications & Allergies - Medications Allergies/Adverse Reactions: Allergies aspirin Allergy (Verified 03/16/17 01:25) Unknown stomach cramps pork derived (porcine) Allergy (Verified 03/16/17 01:27) Rash venom-honey bee [bee venom (honey bee)] Allergy (Verified 03/16/17 01:27) Anaphylaxis Pork/Porcine Containing Products Adverse Reaction (Severe, Verified 02/13/17 09:31) Nausea,VOMITING Home Medications: Home Medications Medication Instructions Recorded Confirmed Last Taken Type Acetaminophen [Acetaminophen TAB] 650 mg PO Q4H PRN tablet 05/05/18 08/19/18 Unknown Rx FLUoxetine HCL [Fluoxetine HCl] 40 mg PO QDAY #30 capsule 05/05/18 08/19/18 Unknown Rx Famotidine [Pepcid] 10 mg PO BID #15 tablet 05/05/18 08/19/18 Unknown Rx Fe Fumarate/FA/Mv, Min Comb#15 1 each PO QDAY #30 capsule 05/05/18 08/19/18 Unknown Rx [Hemocyte Plus] Losartan [Cozaar] 100 mg PO QDAY 30 Days tablet 05/05/18 08/19/18 Unknown Rx Metoprolol Xl [Metoprolol 100 mg PO QDAY #30 tablet 05/05/18 08/19/18 Unknown Rx SUCCINATE ER TAB] diphenhydrAMINE [Benadryl CAP] 25 mg PO Q6H PRN #15 capsule 05/05/18 08/19/18 Unknown Rx oxyCODONE /ACETAMINOPHEN [Percocet 1 tab PO Q6H PRN #20 tablet 05/05/18 08/19/18 Unknown Rx 5/325 mg] Active Medications: Generic Name Dose Route Start Last Admin Trade Name Freq PRN Reason Stop Dose Admin Acetaminophen 650 mg 08/18/18 23:42 Tylenol PO Q4H PRN Pain MILD(1-3)/Fever >100.5/DOUGLAS Hydralazine HCl 5 mg 08/20/18 04:55 08/20/18 05:16 Apresoline IV 5 mg Q6H PRN Administration Hypertension Levofloxacin/Dextrose 250 mg in 50 mls @ 50 mls/hr 08/20/18 10:00 Levaquin 250mg/50ml IV Q24HR [facility] Protocol Ondansetron HCl 4 mg 08/18/18 23:42 Zofran IV Q4H PRN Nausea And Vomiting Oxycodone/Acetaminophen 1 tab 08/18/18 23:42 08/20/18 08:11 Percocet 5/325 PO 1 tab Q4H PRN Administration Pain, Moderate (4-6) Sodium Chloride 10 ml 08/19/18 10:00 08/19/18 21:50 Sodium Chloride Flush Syringe 10 Ml IV 10 ml BID BEAN Administration Sodium Chloride 10 ml 08/18/18 23:42 Sodium Chloride Flush Syringe 10 Ml IV PRN PRN LINE FLUSH
[2018-08-20] MEDS: LEVAQUIN 250MG/50ML 250 MG/50 ML BAG IV SCH (09:44)
[2018-08-20] MEDS: SODIUM CHLORIDE FLUSH SYRINGE 10 ML IV SCH ×2 (09:45→21:10)
[2018-08-20] MEDS ORDERED: NACL 0.9% 100 ML IV PRN (10:00)
--- NOTE | 2018-08-20 11:31 | Progress Note ---
Assessment and Plan Assessment and plan: --Large bilateral pleural effusion left more than right; Patient had thoracentesis in the past, pulmonary consulted Possible thoracentesis if needed -Atypical chest pain; probably noncardiac Heart cath ; single vessel disease with moderate severity, nonobstructive stenosis of proximal LAD, Dilated cardiomyopathy EF 30% Continue current management, cardiology consult if needed --Nonspecific chronic elevation of troponins; Consult cardiology if needed --Hypokalemia; received supplementation Repeat potassium levels within normal limits, follow electrolytes --End-stage renal disease; on hemodialysis TTS Nephrology following, HD per scheduled --Hypertension; moderate control, continue current antihypertensives ,PRN meds --DVT prophylaxis; heparin renal dose Closely monitor the patient and adjust management as needed Plan of care reviewed with the patient and his nurse --Full Code Closely monitor the patient and adjust management as needed Plan of care reviewed with the patient and his nurse History Interval history: Patient seen and examined medical records reviewed Scheduled for hemodialysis today Patient has mild shortness of breath Alert awake oriented 3 not in acute distress Vital signs reviewed Hospitalist Physical - Constitutional Vitals: Temp Pulse Resp BP Pulse Ox 98.6 F 91 H 16 141/102 100 08/20/18 08:30 08/20/18 08:30 08/20/18 08:30 08/20/18 08:30 08/20/18 08:30 General appearance: Present: no acute distress, well-nourished - EENT Eyes: Present: PERRL, EOM intact - Neck Neck: Present: supple, normal ROM - Respiratory Respiratory effort: normal Respiratory: bilateral: diminished (left more than right), rhonchi (left more th an right), negative: rales, wheezing - Cardiovascular Rhythm: regular Heart Sounds: Present: S1 & S2 - Extremities Extremities: no ischemia, No edema - Abdominal General gastrointestinal: soft, non-tender, non-distended, normal bowel sounds - Integumentary Integumentary: Present: clear, warm - Psychiatric Psychiatric: appropriate mood/affect, cooperative - Neurologic Neurologic: CNII-XII intact, moves all extremities Results - Labs CBC & Chem 7: 08/19/18 07:04 08/20/18 05:46 Labs: Laboratory Last Values WBC 3.2 K/mm3 (4.5-11.0) L 08/19/18 07:04 RBC 2.92 M/mm3 (3.65-5.03) L 08/19/18 07:04 Hgb 9.6 gm/dl (11.8-15.2) L 08/19/18 07:04 Hct 29.6 % (35.5-45.6) L 08/19/18 07:04 MCV 101 fl (84-94) H 08/19/18 07:04 MCH 33 pg (28-32) H 08/19/18 07:04 MCHC 32 % (32-34) 08/19/18 07:04 RDW 22.8 % (13.2-15.2) H 08/19/18 07:04 Plt Count 81 K/mm3 (140-440) L 08/19/18 07:04 Lymph % (Auto) 27.7 % (13.4-35.0) 08/19/18 07:04 [place] % (Auto) 8.6 % (0.0-7.3) H 08/19/18 07:04 Eos % (Auto) 0.6 % (0.0-4.3) 08/19/18 07:04 Baso % (Auto) 0.7 % (0.0-1.8) 08/19/18 07:04 Lymph # 0.9 K/mm3 (1.2-5.4) L 08/19/18 07:04 [place] # 0.3 K/mm3 (0.0-0.8) 08/19/18 07:04 Eos # 0.0 K/mm3 (0.0-0.4) 08/19/18 07:04 Baso # 0.0 K/mm3 (0.0-0.1) 08/19/18 07:04 Seg Neutrophils % 62.4 % (40.0-70.0) 08/19/18 07:04 Seg Neutrophils # 2.0 K/mm3 (1.8-7.7) 08/19/18 07:04 PT 17.3 Sec. (12.2-14.9) H 08/18/18 19:58 INR 1.33 (0.87-1.13) H 08/18/18 19:58 APTT 36.1 Sec. (24.2-36.6) 08/18/18 19:58 Sodium 136 mmol/L (137-145) L 08/20/18 05:46 Potassium 4.9 mmol/L (3.6-5.0) D 08/20/18 05:46 Chloride 99.9 mmol/L (98-107) 08/20/18 05:46 Carbon Dioxide 24 mmol/L (22-30) 08/20/18 05:46 Anion Gap 17 mmol/L 08/20/18 05:46 BUN 32 mg/dL (9-20) H 08/20/18 05:46 Creatinine 4.2 mg/dL (0.8-1.5) H 08/20/18 05:46 Estimated GFR 17 ml/min 08/20/18 05:46 BUN/Creatinine Ratio 8 % 08/20/18 05:46 Glucose 93 mg/dL (75-100) 08/20/18 05:46 POC Glucose 117 (70-105) H 08/19/18 17:04 Calcium 8.6 mg/dL (8.4-10.2) 08/20/18 05:46 Total Creatine Kinase 29 units/L (55-170) L 08/19/18 07:04 CK-MB (CK-2) 2.7 ng/mL (0.0-4.0) 08/19/18 07:04 CK-MB (CK-2) Rel Index 9.3 (0-4) H 08/19/18 07:04 Troponin T 0.191 ng/mL (0.00-0.029) H* 08/19/18 07:04 NT-Pro-B Natriuret Pep 40005 pg/mL (0-900) H 08/18/18 19:58 Triglycerides 67 mg/dL (2-149) 08/18/18 19:58 Cholesterol 68 mg/dL (50-199) 08/18/18 19:58 LDL Cholesterol Direct 16 mg/dL (50-130) L 08/18/18 19:58 HDL Cholesterol 43 mg/dL (40-59) 08/18/18 19:58 Cholesterol/HDL Ratio 1.58 % 08/18/18 19:58
[2018-08-20] MEDS ORDERED: NACL 0.9 (PRIMING MACHINE ONLY DIALYSIS) MC ONE (13:11)
--- NOTE | 2018-08-20 13:35 | Progress Note ---
Assessment and Plan 71 y/o male with chronic effusions, left greater than right. No new recs for today. Please see below. 1. Patient states that he is short of breath but clinically does not appear to be in distress 2. Effusion was a transudate, if possible would suggest pulling more on HD but likely not able to 3. 2 options. Drain now and see how fast it comes back, last time took 2 months, or see if there is an stable family member who can be relied on to learn the Pleurx draining technique and place catheter. he is going to talk to his . Subjective Date of service: 08/20/18 Interval history: Patient currently in HD. Breathing is stable. Has not spoke with . Objective Vital Signs - 12hr 08/20/18 08/20/18 08/20/18 04:35 08:30 10:00 Temperature 97.5 F L 98.6 F Pulse Rate 86 91 H Respiratory 18 16 Rate Blood Pressure 145/115 141/102 O2 Sat by Pulse 100 100 98 Oximetry Constitutional: other (cachectic) Eyes: non-icteric Neck: supple Effort: normal Ascultation: Left: diminished breath sounds Percussion: Left: dull Tactile fremitus: Left: diminished Cardiovascular: regular rate and rhythm Gastrointestinal: soft Extremities: other (no left hand. impaired dark digits maybe from renal disease or PVD) Neurologic: normal mental status CBC and BMP: 08/19/18 07:04 08/20/18 05:46 ABG, PT/INR, D-dimer: PT/INR, D-dimer PT 17.3 Sec. (12.2-14.9) H 08/18/18 19:58 INR 1.33 (0.87-1.13) H 08/18/18 19:58 Abnormal lab findings: Abnormal Labs 08/18/18 08/18/18 08/18/18 19:51 19:58 19:58 WBC 4.0 L RBC 2.82 L Hgb 9.4 L Hct 27.7 L MCV 98 H MCH 33 H RDW 22.8 H Plt Count 82 L [place] % (Auto) 7.5 H Lymph # 0.9 L PT 17.3 H INR 1.33 H Sodium Potassium BUN Creatinine POC Glucose Calcium Total Creatine Kinase CK-MB (CK-2) Rel Index Troponin T 0.205 H* NT-Pro-B Natriuret Pep 49317 H LDL Cholesterol Direct 16 L 08/18/18 08/19/18 08/19/18 19:58 00:06 07:04 WBC 3.2 L RBC 2.92 L Hgb 9.6 L Hct 29.6 L MCV 101 H MCH 33 H RDW 22.8 H Plt Count 81 L [place] % (Auto) 8.6 H Lymph # 0.9 L PT INR Sodium Potassium 2.6 L* BUN Creatinine 2.6 H POC Glucose Calcium 8.2 L Total Creatine Kinase 32 L CK-MB (CK-2) Rel Index 9.6 H Troponin T 0.190 H* NT-Pro-B Natriuret Pep LDL Cholesterol Direct 08/19/18 08/19/18 08/19/18 07:04 07:04 17:04 WBC RBC Hgb Hct MCV MCH RDW Plt Count [place] % (Auto) Lymph # PT INR Sodium Potassium BUN 23 H Creatinine 2.9 H POC Glucose 117 H Calcium 8.2 L Total Creatine Kinase 29 L CK-MB (CK-2) Rel Index 9.3 H Troponin T 0.191 H* NT-Pro-B Natriuret Pep LDL Cholesterol Direct 08/20/18 05:46 WBC RBC Hgb Hct MCV MCH RDW Plt Count [place] % (Auto) Lymph # PT INR Sodium 136 L Potassium BUN 32 H Creatinine 4.2 H POC Glucose Calcium Total Creatine Kinase CK-MB (CK-2) Rel Index Troponin T NT-Pro-B Natriuret Pep LDL Cholesterol Direct
[2018-08-20] MEDS ORDERED: BENADRYL IV ONE ×2 (18:35→21:05)
[2018-08-21] MEDS: PERCOCET 5/325 PO PRN ×2 (01:06→21:20)
[2018-08-21] MEDS: BENADRYL PO PRN ×2 (05:50→21:20)
[2018-08-21] MEDS: APRESOLINE IV PRN (05:57)
--- NOTE | 2018-08-21 09:02 | Progress Note ---
Assessment and Plan Impression * End-stage renal disease and maintenance hemodialysis * Bilateral pleural effusion * Chest pain * Severe peripheral vascular disease * Hypertension * Chronic atrial fibrillation * Coronary artery disease * History of CHF * Anemia secondary to ESRD Recommendations * Patient had uneventful hemodialysis yesterday. Continue dialysis on MWF schedule for now * Patient undergoes dialysis on TTS schedule under the care of Dr. Canseco * He does have large pleural effusion on the left side. * Pulmonary consultation appreciated. He will most likely require thoracentesis * Adjust diet and admits for ESRD state * Binders with meals * Procrit per protocol Subjective Date of service: 08/21/18 Interval history: Patient had uneventful hemodialysis yesterday. Feels somewhat better today. No nausea or vomiting. Shortness of breath is slightly better Objective - Vital Signs Vital signs: Vital Signs - 12hr 08/21/18 08/21/18 08/21/18 00:11 01:06 05:09 Temperature 97.0 F L 98.0 F Pulse Rate 64 90 Respiratory 18 20 18 Rate Blood Pressure 155/108 159/109 O2 Sat by Pulse 100 100 Oximetry 08/21/18 05:57 Temperature Pulse Rate 90 Respiratory Rate Blood Pressure 159/109 O2 Sat by Pulse Oximetry - General Appearance General appearance: well-developed, well-nourished, appears stated age EENT: PERRL, mucous membranes moist Neck: no JVD, no thyromegaly, no carotid bruit, supple, other (right IJ PermCath in place) Respiratory: Present: Decreased Breath Sounds (at the bases) Cardiology: regular, normal heart rate, S1S2, no murmurs Gastrointestinal: normal, normoactive bowel sounds Integumentary: other (left hand has been amputated) - Lab 08/19/18 07:04 08/20/18 05:46 Most recent lab results Calcium 8.6 mg/dL (8.4-10.2) 08/20/18 05:46 Medications & Allergies - Medications Allergies/Adverse Reactions: Allergies aspirin Allergy (Verified 03/16/17 01:25) Unknown stomach cramps pork derived (porcine) Allergy (Verified 03/16/17 01:27) Rash venom-honey bee [bee venom (honey bee)] Allergy (Verified 03/16/17 01:27) Anaphylaxis Pork/Porcine Containing Products Adverse Reaction (Severe, Verified 02/13/17 09:31) Nausea,VOMITING Home Medications: Home Medications Medication Instructions Recorded Confirmed Last Taken Type Acetaminophen [Acetaminophen TAB] 650 mg PO Q4H PRN tablet 05/05/18 08/19/18 U nknown Rx FLUoxetine HCL [Fluoxetine HCl] 40 mg PO QDAY #30 capsule 05/05/18 08/19/18 Unknown Rx Famotidine [Pepcid] 10 mg PO BID #15 tablet 05/05/18 08/19/18 Unknown Rx Fe Fumarate/FA/Mv, Min Comb#15 1 each PO QDAY #30 capsule 05/05/18 08/19/18 Unknown Rx [Hemocyte Plus] Losartan [Cozaar] 100 mg PO QDAY 30 Days tablet 05/05/18 08/19/18 Unknown Rx Metoprolol Xl [Metoprolol 100 mg PO QDAY #30 tablet 05/05/18 08/19/18 Unknown Rx SUCCINATE ER TAB] diphenhydrAMINE [Benadryl CAP] 25 mg PO Q6H PRN #15 capsule 05/05/18 08/19/18 Unknown Rx oxyCODONE /ACETAMINOPHEN [Percocet 1 tab PO Q6H PRN #20 tablet 05/05/18 08/19/18 Unknown Rx 5/325 mg] Active Medications: Generic Name Dose Route Start Last Admin Trade Name Freq PRN Reason Stop Dose Admin Acetaminophen 650 mg 08/18/18 23:42 Tylenol PO Q4H PRN Pain MILD(1-3)/Fever >100.5/DOUGLAS Diphenhydramine HCl 25 mg 08/21/18 05:35 08/21/18 05:50 Benadryl PO 25 mg Q6H PRN Administration Itching Hydralazine HCl 5 mg 08/20/18 04:55 08/21/18 05:57 Apresoline IV 5 mg Q6H PRN Administration Hypertension Levofloxacin/Dextrose 250 mg in 50 mls @ 50 mls/hr 08/20/18 10:00 08/20/18 09:44 Levaquin 250mg/50ml IV 50 mls/hr Q24HR BEAN Administration Protocol Sodium Chloride 100 mls @ 999 mls/hr 08/20/18 10:00 Nacl 0.9% IV KATERYNA PRN Hypotension Ondansetron HCl 4 mg 08/18/18 23:42 Zofran IV Q4H PRN Nausea And Vomiting Oxycodone/Acetaminophen 1 tab 08/18/18 23:42 08/21/18 01:06 Percocet 5/325 PO 1 tab Q4H PRN Administration Pain, Moderate (4-6) Sodium Chloride 10 ml 08/19/18 10:00 08/20/18 21:10 Sodium Chloride Flush Syringe 10 Ml IV 10 ml BID BEAN Administration Sodium Chloride 10 ml 08/18/18 23:42 Sodium Chloride Flush Syringe 10 Ml IV PRN PRN LINE FLUSH
[2018-08-21] MEDS: SODIUM CHLORIDE FLUSH SYRINGE 10 ML IV SCH ×2 (09:27→21:20)
[2018-08-21] MEDS: LEVAQUIN 250MG/50ML 250 MG/50 ML BAG IV SCH (09:27)
--- NOTE | 2018-08-21 10:50 | Progress Note ---
Assessment and Plan Assessment and plan: --Large bilateral pleural effusion left more than right; Patient had thoracentesis in the past, pulmonary consulted Possible thoracentesis if needed, patient has no respiratory distress or compromise Discussed the case with pulmonary, if no improvement of symptoms after hemodialysis Patient may need thoracentesis. Closely monitor -Atypical chest pain; probably noncardiac Heart cath ; single vessel disease with moderate severity, nonobstructive stenosis of proximal LAD, Dilated cardiomyopathy EF 30% Continue current management, cardiology consult if needed --Nonspecific chronic elevation of troponins; Consult cardiology if needed --Hypokalemia; received supplementation Repeat potassium levels within normal limits, follow electrolytes --End-stage renal disease; on hemodialysis TTS Nephrology following, HD per scheduled --Hypertension; moderate control, continue current antihypertensives ,PRN meds --DVT prophylaxis; heparin renal dose Closely monitor the patient and adjust management as needed Plan of care reviewed with the patient and his nurse --Full Code Closely monitor the patient and adjust management as needed Plan of care reviewed with the patient and his nurse Possible discharge in 1-2 days if stable History Interval history: Patient seen and examined medical records reviewed Patient feels better no new complaints Alert awake oriented 3 Vital signs reviewed Hospitalist Physical - Constitutional Vitals: Temp Pulse Resp BP Pulse Ox 97.5 F L 68 20 150/106 100 08/21/18 08:08 08/21/18 08:08 08/21/18 08:08 08/21/18 08:08 08/21/18 08:08 General appearance: Present: no acute distress, well-nourished - EENT Eyes: Present: PERRL, EOM intact - Neck Neck: Present: supple, normal ROM - Respiratory Respiratory effort: normal Respiratory: bilateral: diminished (left more than right), negative: rales, rhonchi, wheezing - Cardiovascular Rhythm: regular Heart Sounds: Present: S1 & S2 - Extremities Extremities: no ischemia, No edema - Abdominal General gastrointestinal: soft, non-tender, non-distended, normal bowel sounds - Integumentary Integumentary: Present: clear, warm - Psychiatric Psychiatric: appropriate mood/affect, cooperative - Neurologic Neurologic: CNII-XII intact, moves all extremities Results - Labs CBC & Chem 7: 08/19/18 07:04 08/20/18 05:46 Labs: Laboratory Last Values WBC 3.2 K/mm3 (4.5-11.0) L 08/19/18 07:04 RBC 2.92 M/mm3 (3.65-5.03) L 08/19/18 07:04 Hgb 9.6 gm/dl (11.8-15.2) L 08/19/18 07:04 Hct 29.6 % (35.5-45.6) L 08/19/18 07:04 MCV 101 fl (84-94) H 08/19/18 07:04 MCH 33 pg (28-32) H 08/19/18 07:04 MCHC 32 % (32-34) 08/19/18 07:04 RDW 22.8 % (13.2-15.2) H 08/19/18 07:04 Plt Count 81 K/mm3 (140-440) L 08/19/18 07:04 Lymph % (Auto) 27.7 % (13.4-35.0) 08/19/18 07:04 [place] % (Auto) 8.6 % (0.0-7.3) H 08/19/18 07:04 Eos % (Auto) 0.6 % (0.0-4.3) 08/19/18 07:04 Baso % (Auto) 0.7 % (0.0-1.8) 08/19/18 07:04 Lymph # 0.9 K/mm3 (1.2-5.4) L 08/19/18 07:04 [place] # 0.3 K/mm3 (0.0-0.8) 08/19/18 07:04 Eos # 0.0 K/mm3 (0.0-0.4) 08/19/18 07:04 Baso # 0.0 K/mm3 (0.0-0.1) 08/19/18 07:04 Seg Neutrophils % 62.4 % (40.0-70.0) 08/19/18 07:04 Seg Neutrophils # 2.0 K/mm3 (1.8-7.7) 08/19/18 07:04 PT 17.3 Sec. (12.2-14.9) H 08/18/18 19:58 INR 1.33 (0.87-1.13) H 08/18/18 19:58 APTT 36.1 Sec. (24.2-36.6) 08/18/18 19:58 Sodium 136 mmol/L (137-145) L 08/20/18 05:46 Potassium 4.9 mmol/L (3.6-5.0) D 08/20/18 05:46 Chloride 99.9 mmol/L (98-107) 08/20/18 05:46 Carbon Dioxide 24 mmol/L (22-30) 08/20/18 05:46 Anion Gap 17 mmol/L 08/20/18 05:46 BUN 32 mg/dL (9-20) H 08/20/18 05:46 Creatinine 4.2 mg/dL (0.8-1.5) H 08/20/18 05:46 Estimated GFR 17 ml/min 08/20/18 05:46 BUN/Creatinine Ratio 8 % 08/20/18 05:46 Glucose 93 mg/dL (75-100) 08/20/18 05:46 POC Glucose 117 (70-105) H 08/19/18 17:04 Calcium 8.6 mg/dL (8.4-10.2) 08/20/18 05:46 Total Creatine Kinase 29 units/L (55-170) L 08/19/18 07:04 CK-MB (CK-2) 2.7 ng/mL (0.0-4.0) 08/19/18 07:04 CK-MB (CK-2) Rel Index 9.3 (0-4) H 08/19/18 07:04 Troponin T 0.191 ng/mL (0.00-0.029) H* 08/19/18 07:04 NT-Pro-B Natriuret Pep 83536 pg/mL (0-900) H 08/18/18 19:58 Triglycerides 67 mg/dL (2-149) 08/18/18 19:58 Cholesterol 68 mg/dL (50-199) 08/18/18 19:58 LDL Cholesterol Direct 16 mg/dL (50-130) L 08/18/18 19:58 HDL Cholesterol 43 mg/dL (40-59) 08/18/18 19:58 Cholesterol/HDL Ratio 1.58 % 08/18/18 19:58
--- NOTE | 2018-08-21 11:51 | Progress Note ---
Assessment and Plan Shortness of breath secondary to chronic effusions, left greater than right. Transudate as per prior tabs Congestive heart failure Pneumoniae. CAD recommendations End-stage renal disease Recommendations Continue hemodialysis. If no additional improvement after HD, consider then sonographic guided thoracenteses. Patient as reported improvement with this in the past. She also ID comments. Discussed with patient and hopitalist in detail. All questions answered Subjective Date of service: 08/21/18 Principal diagnosis: shortness of breath, volume overload, pleural effusion Interval history: Currently on hemodialysis. Reports feeling better Objective Vital Signs - 12hr 08/21/18 08/21/18 08/21/18 00:11 01:06 05:09 Temperature 97.0 F L 98.0 F Pulse Rate 64 90 Respiratory 18 20 18 Rate Blood Pressure 155/108 159/109 Blood Pressure [Right] O2 Sat by Pulse 100 100 Oximetry 08/21/18 08/21/18 05:57 08:08 Temperature 97.5 F L Pulse Rate 90 68 Respiratory 20 Rate Blood Pressure 159/109 Blood Pressure 150/106 [Right] O2 Sat by Pulse 100 Oximetry Constitutional: other (chronically ill) Eyes: non-icteric Neck: supple, no JVD Effort: normal Ascultation: Left: diminished breath sounds Percussion: Left: dull Tactile fremitus: Left: diminished Cardiovascular: regular rate and rhythm Gastrointestinal: soft Extremities: other (covered wound the right foot no exudates) Neurologic: normal mental status CBC and BMP: 08/19/18 07:04 08/20/18 05:46 ABG, PT/INR, D-dimer: PT/INR, D-dimer PT 17.3 Sec. (12.2-14.9) H 08/18/18 19:58 INR 1.33 (0.87-1.13) H 08/18/18 19:58 Abnormal lab findings: Abnormal Labs 08/18/18 08/18/18 08/18/18 19:51 19:58 19:58 WBC 4.0 L RBC 2.82 L Hgb 9.4 L Hct 27.7 L MCV 98 H MCH 33 H RDW 22.8 H Plt Count 82 L [place] % (Auto) 7.5 H Lymph # 0.9 L PT 17.3 H INR 1.33 H Sodium Potassium BUN Creatinine POC Glucose Calcium Total Creatine Kinase CK-MB (CK-2) Rel Index Troponin T 0.205 H* NT-Pro-B Natriuret Pep 55564 H LDL Cholesterol Direct 16 L 08/18/18 08/19/18 08/19/18 19:58 00:06 07:04 WBC 3.2 L RBC 2.92 L Hgb 9.6 L Hct 29.6 L MCV 101 H MCH 33 H RDW 22.8 H Plt Count 81 L [place] % (Auto) 8.6 H Lymph # 0.9 L PT INR Sodium Potassium 2.6 L* BUN Creatinine 2.6 H POC Glucose Calcium 8.2 L Total Creatine Kinase 32 L CK-MB (CK-2) Rel Index 9.6 H Troponin T 0.190 H* NT-Pro-B Natriuret Pep LDL Cholesterol Direct 08/19/18 08/19/18 08/19/18 07:04 07:04 17:04 WBC RBC Hgb Hct MCV MCH RDW Plt Count [place] % (Auto) Lymph # PT INR Sodium Potassium BUN 23 H Creatinine 2.9 H POC Glucose 117 H Calcium 8.2 L Total Creatine Kinase 29 L CK-MB (CK-2) Rel Index 9.3 H Troponin T 0.191 H* NT-Pro-B Natriuret Pep LDL Cholesterol Direct 08/20/18 05:46 WBC RBC Hgb Hct MCV MCH RDW Plt Count [place] % (Auto) Lymph # PT INR Sodium 136 L Potassium BUN 32 H Creatinine 4.2 H POC Glucose Calcium Total Creatine Kinase CK-MB (CK-2) Rel Index Troponin T NT-Pro-B Natriuret Pep LDL Cholesterol Direct
[2018-08-22] MEDS: PERCOCET 5/325 PO PRN ×3 (03:40→17:54)
[2018-08-22] MEDS: APRESOLINE IV PRN ×2 (03:52→22:09)
[2018-08-22] MEDS: LEVAQUIN 250MG/50ML 250 MG/50 ML BAG IV SCH (08:59)
[2018-08-22] MEDS: SODIUM CHLORIDE FLUSH SYRINGE 10 ML IV SCH ×2 (10:48→22:11)
--- NOTE | 2018-08-22 11:10 | Event Note ---
Date: 08/22/18 Came to see patient, currently out on study. We'll see back when available for review.
[2018-08-22] MEDS: BENADRYL PO PRN ×2 (12:10→16:34)
--- NOTE | 2018-08-22 15:57 | Progress Note ---
Assessment and Plan Assessment and plan: --Large bilateral pleural effusion left more than right; Patient had thoracentesis in the past, Thoracentesis if needed, management per pulmonary -Atypical chest pain; probably noncardiac Heart cath ; single vessel disease with moderate severity, nonobstructive stenosis of proximal LAD, Dilated cardiomyopathy EF 30% Medical management --Nonspecific chronic elevation of troponins; Consult cardiology if needed --Hypokalemia; resolved --End-stage renal disease; on hemodialysis per schedule Nephrology following, --Hypertension; moderate control, continue current antihypertensives ,PRN meds --DVT prophylaxis; heparin renal dose --Full Code Closely monitor the patient and adjust management as needed Plan of care reviewed with the patient and his nurse Possible discharge tomorrow if cleared by pulmonary History Interval history: Patient seen and examined medical records reviewed Patient feels slightly better scheduled for hemodialysis today No new complaints Vital signs reviewed Hospitalist Physical - Constitutional Vitals: Temp Pulse Resp BP Pulse Ox 98.2 F 71 18 147/68 100 08/22/18 10:20 08/22/18 12:15 08/22/18 10:20 08/22/18 12:15 08/22/18 08:00 General appearance: Present: no acute distress, well-nourished - EENT Eyes: Present: PERRL, EOM intact - Neck Neck: Present: supple, normal ROM - Respiratory Respiratory effort: normal Respiratory: bilateral: diminished (left more than right), negative: rales, rhonchi, wheezing - Cardiovascular Rhythm: regular Heart Sounds: Present: S1 & S2 - Extremities Extremities: no ischemia, No edema Peripheral Pulses: within normal limits - Abdominal General gastrointestinal: soft, non-tender, non-distended, normal bowel sounds - Integumentary Integumentary: Present: clear, warm - Psychiatric Psychiatric: appropriate mood/affect, cooperative - Neurologic Neurologic: CNII-XII intact, moves all extremities Results - Labs CBC & Chem 7: 08/19/18 07:04 08/20/18 05:46 Labs: Laboratory Last Values WBC 3.2 K/mm3 (4.5-11.0) L 08/19/18 07:04 RBC 2.92 M/mm3 (3.65-5.03) L 08/19/18 07:04 Hgb 9.6 gm/dl (11.8-15.2) L 08/19/18 07:04 Hct 29.6 % (35.5-45.6) L 08/19/18 07:04 MCV 101 fl (84-94) H 08/19/18 07:04 MCH 33 pg (28-32) H 08/19/18 07:04 MCHC 32 % (32-34) 08/19/18 07:04 RDW 22.8 % (13.2-15.2) H 08/19/18 07:04 Plt Count 81 K/mm3 (140-440) L 08/19/18 07:04 Lymph % (Auto) 27.7 % (13.4-35.0) 08/19/18 07:04 [place] % (Auto) 8.6 % (0.0-7.3) H 08/19/18 07:04 Eos % (Auto) 0.6 % (0.0-4.3) 08/19/18 07:04 Baso % (Auto) 0.7 % (0.0-1.8) 08/19/18 07:04 Lymph # 0.9 K/mm3 (1.2-5.4) L 08/19/18 07:04 [place] # 0.3 K/mm3 (0.0-0.8) 08/19/18 07:04 Eos # 0.0 K/mm3 (0.0-0.4) 08/19/18 07:04 Baso # 0.0 K/mm3 (0.0-0.1) 08/19/18 07:04 Seg Neutrophils % 62.4 % (40.0-70.0) 08/19/18 07:04 Seg Neutrophils # 2.0 K/mm3 (1.8-7.7) 08/19/18 07:04 PT 17.3 Sec. (12.2-14.9) H 08/18/18 19:58 INR 1.33 (0.87-1.13) H 08/18/18 19:58 APTT 36.1 Sec. (24.2-36.6) 08/18/18 19:58 Sodium 136 mmol/L (137-145) L 08/20/18 05:46 Potassium 4.9 mmol/L (3.6-5.0) D 08/20/18 05:46 Chloride 99.9 mmol/L (98-107) 08/20/18 05:46 Carbon Dioxide 24 mmol/L (22-30) 08/20/18 05:46 Anion Gap 17 mmol/L 08/20/18 05:46 BUN 32 mg/dL (9-20) H 08/20/18 05:46 Creatinine 4.2 mg/dL (0.8-1.5) H 08/20/18 05:46 Estimated GFR 17 ml/min 08/20/18 05:46 BUN/Creatinine Ratio 8 % 08/20/18 05:46 Glucose 93 mg/dL (75-100) 08/20/18 05:46 POC Glucose 117 (70-105) H 08/19/18 17:04 Calcium 8.6 mg/dL (8.4-10.2) 08/20/18 05:46 Total Creatine Kinase 29 units/L (55-170) L 08/19/18 07:04 CK-MB (CK-2) 2.7 ng/mL (0.0-4.0) 08/19/18 07:04 CK-MB (CK-2) Rel Index 9.3 (0-4) H 08/19/18 07:04 Troponin T 0.191 ng/mL (0.00-0.029) H* 08/19/18 07:04 NT-Pro-B Natriuret Pep 16247 pg/mL (0-900) H 08/18/18 19:58 Triglycerides 67 mg/dL (2-149) 08/18/18 19:58 Cholesterol 68 mg/dL (50-199) 08/18/18 19:58 LDL Cholesterol Direct 16 mg/dL (50-130) L 08/18/18 19:58 HDL Cholesterol 43 mg/dL (40-59) 08/18/18 19:58 Cholesterol/HDL Ratio 1.58 % 08/18/18 19:58
--- NOTE | 2018-08-22 17:22 | Progress Note ---
Assessment and Plan - Patient Problems (1) ESRD (end stage renal disease) on dialysis Current Visit: Yes Status: Acute Plan to address problem: ESRD on hemodialysis Dialysis access : AVF - Ultrafiltration goal: 3L - Will assess volume status daily (2) HTN (hypertension) Current Visit: Yes Status: Acute Plan to address problem: HTN : uncontrolled. - ensure current medications. (3) Pleural effusion Current Visit: Yes Status: Acute Plan to address problem: Bilateral Pleural effusion Congestive heart failure - CXR with cardiomegaly ,bilateral effusion - optimize volume status on HD. (4) Anemia Current Visit: Yes Status: Acute Qualifiers: Chronic kidney disease stage: on chronic dialysis Plan to address problem: Moderate Anemia : Hb: 9.6g/dl - etiology 2/2 Chronic kidney disease - Monitor CBC . We will follow with you. Thank you for this consult. Subjective Principal diagnosis: shortness of breath, volume overload, pleural effusion Interval history: 71 year old Gentleman with medical history of ESRD , HTN , Atrial fibrillation , CHF admitted with volume overload , nephrology following . Patient seen today on dialysis at 11.00am . complains of itching Objective - Vital Signs Vital signs: Vital Signs - 12hr 08/22/18 08/22/18 08/22/18 07:57 08:00 08:50 Temperature 97.4 F L Pulse Rate Respiratory 20 20 Rate Blood Pressure 156/114 O2 Sat by Pulse 100 Oximetry 08/22/18 08/22/18 08/22/18 10:20 10:25 10:30 Temperature 98.2 F Pulse Rate 82 68 74 Respiratory 18 Rate Blood Pressure 145/84 131/75 178/77 O2 Sat by Pulse Oximetry 08/22/18 08/22/18 08/22/18 10:45 11:00 11:15 Temperature Pulse Rate 73 72 82 Respiratory Rate Blood Pressure 156/86 140/96 148/59 O2 Sat by Pulse Oximetry 08/22/18 08/22/18 08/22/18 11:30 11:45 12:00 Temperature Pulse Rate 96 H 93 H 82 Respiratory Rate Blood Pressure 170/71 155/65 165/81 O2 Sat by Pulse Oximetry 08/22/18 12:15 Temperature Pulse Rate 71 Respiratory Rate Blood Pressure 147/68 O2 Sat by Pulse Oximetry - General Appearance General appearance: well-developed, frail EENT: ATNC, PERRL, mucous membranes dry Neck: no JVD Respiratory: Present: Clear to Ascultation Cardiology: regular, S1S2 Gastrointestinal: normoactive bowel sounds Integumentary: no rash, chronic venous stasis Neurologic: alert and oriented x3 Psychiatric: mood/affect appropriate - Lab 08/19/18 07:04 08/20/18 05:46 Most recent lab results Calcium 8.6 mg/dL (8.4-10.2) 08/20/18 05:46 - Imaging Chest x-ray: image reviewed Medications & Allergies - Medications Allergies/Adverse Reactions: Allergies aspirin Allergy (Verified 03/16/17 01:25) Unknown stomach cramps pork derived (porcine) Allergy (Verified 03/16/17 01:27) Rash venom-honey bee [bee venom (honey bee)] Allergy (Verified 03/16/17 01:27) Anaphylaxis Pork/Porcine Containing Products Adverse Reaction (Severe, Verified 02/13/17 09:31) Nausea,VOMITING Home Medications: Home Medications Medication Instructions Recorded Confirmed Last Taken Type Acetaminophen [Acetaminophen TAB] 650 mg PO Q4H PRN tablet 05/05/18 08/19/18 Unknown Rx FLUoxetine HCL [Fluoxetine HCl] 40 mg PO QDAY #30 capsule 05/05/18 08/19/18 Unknown Rx Famotidine [Pepcid] 10 mg PO BID #15 tablet 05/05/18 08/19/18 Unknown Rx Fe Fumarate/FA/Mv, Min Comb#15 1 each PO QDAY #30 capsule 05/05/18 08/19/18 Unknown Rx [Hemocyte Plus] Losartan [Cozaar] 100 mg PO QDAY 30 Days tablet 05/05/18 08/19/18 Unknown Rx Metoprolol Xl [Metoprolol 100 mg PO QDAY #30 tablet 05/05/18 08/19/18 Unknown Rx SUCCINATE ER TAB] diphenhydrAMINE [Benadryl CAP] 25 mg PO Q6H PRN #15 capsule 05/05/18 08/19/18 Unknown Rx oxyCODONE /ACETAMINOPHEN [Percocet 1 tab PO Q6H PRN #20 tablet 05/05/18 08/19/18 Unknown Rx 5/325 mg] Active Medications: Generic Name Dose Route Start Last Admin Trade Name Freq PRN Reason Stop Dose Admin Acetaminophen 650 mg 08/18/18 23:42 Tylenol PO Q4H PRN Pain MILD(1-3)/Fever >100.5/DOUGLAS Diphenhydramine HCl 25 mg 08/21/18 05:35 08/22/18 16:34 Benadryl PO 25 mg Q6H PRN Administration Itching Hydralazine HCl 5 mg 08/20/18 04:55 08/22/18 03:52 Apresoline IV 5 mg Q6H PRN Administration Hypertension Sodium Chloride 100 mls @ 999 mls/hr 08/20/18 10:00 Nacl 0.9% IV KATERYNA PRN Hypotension Levofloxacin/Dextrose 500 mg in 100 mls @ 100 mls/hr 08/24/18 10:00 Levaquin 500mg/100ml IV Q48HR BEAN Ondansetron HCl 4 mg 08/18/18 23:42 Zofran IV Q4H PRN Nausea And Vomiting Oxycodone/Acetaminophen 1 tab 08/18/18 23:42 08/22/18 08:50 Percocet 5/325 PO 1 tab Q4H PRN Administration Pain, Moderate (4-6) Sodium Chloride 10 ml 08/19/18 10:00 08/22/18 10:48 Sodium Chloride Flush Syringe 10 Ml IV Not Given BID BEAN Sodium Chloride 10 ml 08/18/18 23:42 Sodium Chloride Flush Syringe 10 Ml IV PRN PRN LINE FLUSH
[2018-08-23] MEDS: PERCOCET 5/325 PO PRN ×3 (03:32→15:06)
[2018-08-23] MEDS: SODIUM CHLORIDE FLUSH SYRINGE 10 ML IV SCH (10:38)
--- NOTE | 2018-08-23 11:34 | Progress Note ---
Assessment and Plan Shortness of breath secondary to chronic effusions, left greater than right. Controlled. Transudate as per prior tabs Congestive heart failure Pneumoniae. CAD recommendations End-stage renal disease Recommendations Fluid management, Hemodialysis,per nephrology. Follow up as needed. Sees at the office Discussed with patient and hospitalist in detail. All questions answered Subjective Date of service: 08/23/18 Principal diagnosis: shortness of breath, volume overload, pleural effusion Objective Vital Signs - 12hr 08/23/18 08/23/18 08/23/18 03:54 07:52 08:34 Temperature 98.3 F 97.9 F Pulse Rate 61 80 Respiratory 16 14 Rate Blood Pressure 155/88 145/104 O2 Sat by Pulse 100 100 100 Oximetry Constitutional: other (chronically ill) Eyes: non-icteric Neck: supple, no JVD Effort: normal Ascultation: Left: diminished breath sounds Percussion: Left: dull Tactile fremitus: Left: diminished Cardiovascular: regular rate and rhythm Gastrointestinal: soft Extremities: other (covered wound the right foot no exudates) Neurologic: normal mental status CBC and BMP: 08/19/18 07:04 08/20/18 05:46 ABG, PT/INR, D-dimer: PT/INR, D-dimer PT 17.3 Sec. (12.2-14.9) H 08/18/18 19:58 INR 1.33 (0.87-1.13) H 08/18/18 19:58 Abnormal lab findings: Abnormal Labs 08/18/18 08/18/18 08/18/18 19:51 19:58 19:58 WBC 4.0 L RBC 2.82 L Hgb 9.4 L Hct 27.7 L MCV 98 H MCH 33 H RDW 22.8 H Plt Count 82 L [place] % (Auto) 7.5 H Lymph # 0.9 L PT 17.3 H INR 1.33 H Sodium Potassium BUN Creatinine POC Glucose Calcium Total Creatine Kinase CK-MB (CK-2) Rel Index Troponin T 0.205 H* NT-Pro-B Natriuret Pep 16230 H LDL Cholesterol Direct 16 L 08/18/18 08/19/18 08/19/18 19:58 00:06 07:04 WBC 3.2 L RBC 2.92 L Hgb 9.6 L Hct 29.6 L MCV 101 H MCH 33 H RDW 22.8 H Plt Count 81 L [place] % (Auto) 8.6 H Lymph # 0.9 L PT INR Sodium Potassium 2.6 L* BUN Creatinine 2.6 H POC Glucose Calcium 8.2 L Total Creatine Kinase 32 L CK-MB (CK-2) Rel Index 9.6 H Troponin T 0.190 H* NT-Pro-B Natriuret Pep LDL Cholesterol Direct 08/19/18 08/19/18 08/19/18 07:04 07:04 17:04 WBC RBC Hgb Hct MCV MCH RDW Plt Count [place] % (Auto) Lymph # PT INR Sodium Potassium BUN 23 H Creatinine 2.9 H POC Glucose 117 H Calcium 8.2 L Total Creatine Kinase 29 L CK-MB (CK-2) Rel Index 9.3 H Troponin T 0.191 H* NT-Pro-B Natriuret Pep LDL Cholesterol Direct 08/20/18 05:46 WBC RBC Hgb Hct MCV MCH RDW Plt Count [place] % (Auto) Lymph # PT INR Sodium 136 L Potassium BUN 32 H Creatinine 4.2 H POC Glucose Calcium Total Creatine Kinase CK-MB (CK-2) Rel Index Troponin T NT-Pro-B Natriuret Pep LDL Cholesterol Direct
--- NOTE | 2018-08-23 15:37 | Discharge Summary ---
Providers - Providers Date of Admission: 08/18/18 23:42 Date of discharge: 08/23/18 Attending physician: MIKA VERDE 08/18/18 23:42 Consult to Physician [CONS] Routine Comment: Consulting Provider: KENNY PINEDA Physician Instructions: Reason For Exam: pleural effusion 08/19/18 05:19 Consult to Physician [CONS] Routine Comment: Consulting Provider: LUDA ANDERSON Physician Instructions: Reason For Exam: hd Primary care physician: MUTTON PUNCHER Hospitalization Reason for admission: Chest pain,shortness of breath Condition: Stable Pertinent studies: CXR,CT chest Hospital course: 71-year-old man with a history of end-stage renal disease on dialysis, hypertension, CHF, A. fib, coronary artery disease, PTSD comes emergency room with complaints of chest pain and shortness of breath. Admitted , symptomatically managed,evaluated by pulm ,no need for thoracentesis, medicalmanagement.Evaluated by nephrology and pulmonary,meds optimised Pt received HD per schedule,Symptoms improved,today patient is comfortable, no new complaints,vital signs stable Cleared by pulm and nephrology Patient is stable at discharge. Discharge Diagnosis: --Large bilateral pleural effusion left more than right; Patient had thoracentesis in the past,Stable with our resp distress Thoracentesis not needed, f/u pulmonary upon dc -Atypical chest pain; probably noncardiac,probably GERD Heart cath ; single vessel disease with moderate severity, nonobstructive stenosis of proximal LAD, Dilated cardiomyopathy EF 30% Medical management --Nonspecific chronic elevation of troponins; Consult cardiology if needed --Hypokalemia; resolved --End-stage renal disease; on hemodialysis per schedule Nephrology following, --Hypertension; moderate control, continue current antihypertensives ,PRN meds --DVT prophylaxis; heparin renal dose --Full Code cleared by pulmonary and nephrology Stable at discharge Disposition: [id number] HOME UNDER HOME HLTH Time spent for discharge: 32 min Core Measure Documentation - Palliative Care Palliative Care/ Comfort Measures: Not Applicable - Core Measures Any of the following diagnoses?: none Exam - Constitutional Vitals: Temp Pulse Resp BP Pulse Ox 97.9 F 58 L 14 156/122 100 08/23/18 07:52 08/23/18 12:28 08/23/18 07:52 08/23/18 12:28 08/23/18 12:28 General appearance: Present: no acute distress, well-nourished - EENT Eyes: Present: PERRL, EOM intact - Neck Neck: Present: supple, normal ROM - Respiratory Respiratory effort: normal Respiratory: bilateral: diminished, negative: rales, rhonchi, wheezing - Cardiovascular Rhythm: regular Heart Sounds: Present: S1 & S2 - Extremities Extremities: no ischemia, pulses intact - Abdominal General gastrointestinal: Present: soft, non-tender, non-distended - Integumentary Integumentary: Present: clear, warm - Musculoskeletal Musculoskeletal: strength equal bilaterally, generalized weakness - Psychiatric Psychiatric: appropriate mood/affect, cooperative - Neurologic Neurologic: other (residual weakness) Plan Activity: advance as tolerated, fall precautions Diet: renal Special Instructions: physical therapy Additional Instructions: Follow nephrology, hemodialysis per schedule. Continue all the home medications as before. Continue home oxygen as needed. Resume health. No new prescriptions needed Follow up with: AVRIL BENITEZ MD [Primary Care Provider] - 3-5 Days ARIADNE MESA MD [Staff Physician] - 7 Days AUSTIN RIGGINS MD [Referring] - 7 Days
--- NOTE | 2018-08-23 16:49 | Progress Note ---
Assessment and Plan - Patient Problems (1) ESRD (end stage renal disease) on dialysis Current Visit: Yes Status: Acute Plan to address problem: ESRD on hemodialysis Dialysis access : AVF - Ultrafiltration goal: 3L -We'll hold hemodialysis today -We will repeat dialysis tomorrow if the patient remains inpatient (2) HTN (hypertension) Current Visit: Yes Status: Acute Plan to address problem: HTN : uncontrolled. - ensure current medications. (3) Pleural effusion Current Visit: Yes Status: Acute (4) Anemia Current Visit: Yes Status: Acute Qualifiers: Chronic kidney disease stage: on chronic dialysis Plan to address problem: Moderate Anemia : Hb: 9.6g/dl - etiology 2/2 Chronic kidney disease - Monitor CBC . We will follow with you. Thank you for this consult. Subjective Principal diagnosis: shortness of breath, volume overload, pleural effusion Interval history: 71 year old Gentleman with medical history of ESRD , HTN , Atrial fibrillation , CHF admitted with volume overload , nephrology following . Patient was seen today tolerated dialysis well yesterday Bilateral effusions on chest x-ray with cardiomegaly Peripheral edema is much improved No nausea or vomiting no fever or chills He complains of area of ulceration at the base of his right thumb Objective - Vital Signs Vital signs: Vital Signs - 12hr 08/23/18 08/23/18 08/23/18 07:52 08:34 12:28 Temperature 97.9 F Pulse Rate 80 58 L Respiratory 14 Rate Blood Pressure 145/104 156/122 O2 Sat by Pulse 100 100 100 Oximetry - General Appearance General appearance: well-developed, well-nourished EENT: ATNC, PERRL Neck: no JVD, JVD Respiratory: Present: Decreased Breath Sounds Cardiology: regular, S1S2 Gastrointestinal: normal, normoactive bowel sounds Integumentary: chronic venous stasis, other (right hand with serial of ulceration/possible ischemia, status post left hand amputation) Neurologic: alert and oriented x3 Musculoskeletal: joint swelling, other (right thumb ulcer, left hand amputation) Psychiatric: mood/affect appropriate - Lab 08/19/18 07:04 08/20/18 05:46 Most recent lab results Calcium 8.6 mg/dL (8.4-10.2) 08/20/18 05:46 - Imaging Chest x-ray: image reviewed (every chest x-ray with cardiomegaly bilateral effusions) Medications & Allergies - Medications Allergies/Adverse Reactions: Allergies aspirin Allergy (Verified 03/16/17 01:25) Unknown stomach cramps pork derived (porcine) Allergy (Verified 03/16/17 01:27) Rash venom-honey bee [bee venom (honey bee)] Allergy (Verified 03/16/17 01:27) Anaphylaxis Pork/Porcine Containing Products Adverse Reaction (Severe, Verified 02/13/17 09:31) Nausea,VOMITING Home Medications: Home Medications Medication Instructions Recorded Confirmed Last Taken Type Acetaminophen [Acetaminophen TAB] 650 mg PO Q4H PRN tablet 05/05/18 08/19/18 Unknown Rx FLUoxetine HCL [Fluoxetine HCl] 40 mg PO QDAY #30 capsule 05/05/18 08/19/18 Unknown Rx Famotidine [Pepcid] 10 mg PO BID #15 tablet 05/05/18 08/19/18 Unknown Rx Fe Fumarate/FA/Mv, Min Comb#15 1 each PO QDAY #30 capsule 05/05/18 08/19/18 Unknown Rx [Hemocyte Plus] Losartan [Cozaar] 100 mg PO QDAY 30 Days tablet 05/05/18 08/19/18 Unknown Rx Metoprolol Xl [Metoprolol 100 mg PO QDAY #30 tablet 05/05/18 08/19/18 Unknown Rx SUCCINATE ER TAB] diphenhydrAMINE [Benadryl CAP] 25 mg PO Q6H PRN #15 capsule 05/05/18 08/19/18 Unknown Rx oxyCODONE /ACETAMINOPHEN [Percocet 1 tab PO Q6H PRN #20 tablet 05/05/18 08/19/18 Unknown Rx 5/325 mg] Active Medications: Generic Name Dose Route Start Last Admin Trade Name Freq PRN Reason Stop Dose Admin Acetaminophen 650 mg 08/18/18 23:42 Tylenol PO Q4H PRN Pain MILD(1-3)/Fever >100.5/DOUGLAS Diphenhydramine HCl 25 mg 08/21/18 05:35 08/22/18 16:34 Benadryl PO 25 mg Q6H PRN Administration Itching Hydralazine HCl 5 mg 08/20/18 04:55 08/22/18 22:09 Apresoline IV 5 mg Q6H PRN Administration Hypertension Sodium Chloride 100 mls @ 999 mls/hr 08/20/18 10:00 Nacl 0.9% IV KATERYNA PRN Hypotension Levofloxacin/Dextrose 500 mg in 100 mls @ 100 mls/hr 08/24/18 10:00 Levaquin 500mg/100ml IV Q48HR BEAN Ondansetron HCl 4 mg 08/18/18 23:42 Zofran IV Q4H PRN Nausea And Vomiting Oxycodone/Acetaminophen 1 tab 08/18/18 23:42 08/23/18 15:06 Percocet 5/325 PO 1 tab Q4H PRN Administration Pain, Moderate (4-6) Sodium Chloride 10 ml 08/19/18 10:00 08/23/18 10:38 Sodium Chloride Flush Syringe 10 Ml IV 10 ml BID BEAN Administration Sodium Chloride 10 ml 08/18/18 23:42 Sodium Chloride Flush Syringe 10 Ml IV PRN PRN LINE FLUSH
[2018-08-23 18:47] VITALS: BP 150/111
[2018-08-24] MEDS ORDERED: LEVAQUIN 500MG/100ML 500 MG/100 ML BAG IV SCH (10:00)
== END 2018-08-23 18:45 | disposition home health service (06) | DRG 871 ==
LOC: EDBD → ED 18:35 → 4A 23:42
PROVIDERS: ADMIT Internal Medicine; ATTEND Internal Medicine
PROC: 5A1D70Z Performance of Urinary Filtration, Intermittent, Less than 6 Hours Per Day (ICD-10-PCS; principal; 2018-08-20)
PROC: 5A1D70Z Performance of Urinary Filtration, Intermittent, Less than 6 Hours Per Day (ICD-10-PCS; 2018-08-22)
DX: A41.9 Sepsis, unspecified organism (principal); J18.9 Pneumonia, unspecified organism; N18.6 End stage renal disease; I25.10 Atherosclerotic heart disease of native coronary artery without angina pectoris; J90 Pleural effusion, not elsewhere classified; E87.6 Hypokalemia; I13.2 Hypertensive heart and chronic kidney disease with heart failure and with stage 5 chronic kidney disease, or end stage renal disease; I50.9 Heart failure, unspecified; I42.0 Dilated cardiomyopathy; I48.2 Chronic atrial fibrillation; D63.1 Anemia in chronic kidney disease; F43.10 Post-traumatic stress disorder, unspecified; D69.6 Thrombocytopenia, unspecified; J96.10 Chronic respiratory failure, unspecified whether with hypoxia or hypercapnia; E11.22 Type 2 diabetes mellitus with diabetic chronic kidney disease; E11.51 Type 2 diabetes mellitus with diabetic peripheral angiopathy without gangrene; Z99.2 Dependence on renal dialysis; Z88.6 Allergy status to analgesic agent; Z79.899 Other long term (current) drug therapy; Z89.112 Acquired absence of left hand; Z91.030 Bee allergy status; Z89.029 Acquired absence of unspecified finger(s); Z82.49 Family history of ischemic heart disease and other diseases of the circulatory system
CPT/HCPCS: 36415; 71045; 71250; 80048; 80061; 82550; 82553; 82962; 83880; 84484; 85025; 85610; 85730; 87040; 93005; 93010; 94760; G0378; J0360; J1200; J1956; J2270; J2405; J7030

== ENCOUNTER 2018-08-24 23:58 | Inpatient (IN) | payer MEDICAID ==
[2018-08-25] MEDS ORDERED: MORPHINE IV ONE ×2 (00:49→04:36)
--- NOTE | 2018-08-25 00:51 | Emergency Department Report ---
ED Chest Pain HPI - General Chief Complaint: Chest Pain Stated Complaint: CHEST PAIN Time Seen by Provider: 08/25/18 00:48 Source: patient, EMS Mode of arrival: Stretcher Limitations: Physical Limitation - History of Present Illness Initial Comments: Patient is a 8-year-old male that presents emergency room with chest pain 1-1/2 hours prior to arrival. Patient brought in by EMS. Patient states he is allergic to aspirin. Fish states he received nitroglycerin and the chest pain is unchanged. Patient states the pain is in the center of his chest and is nonradiating. Patient states the pain is a 10 out of 10. Patient states the pain is worse with exertion and better with rest. Patient states that the chest pain is not changed with nitroglycerin. Patient denies shortness of breath. Patient denies fever and chills. Patient denies diaphoresis. MD Complaint: chest pain -: Sudden Onset: during rest Pain Location: substernal, left chest Pain Radiation: none Severity: severe Severity scale (0 -10): 10 Quality: sharp Consistency: constant Improves With: rest Worsens With: exertion re: denies: nausea, vomting, diaphoresis, dyspnea, sense of impending doom Other Symptoms: denies: cough, fever, syncope, rash, acid taste in mouth, leg swelling, palpitations, burping Treatments Prior to Arrival: nitroglycerin, oxygen Aspirin use within the Past 7 Days: (0) No - Related Data On Oral Contraceptives: No Previous Rx's Medication Instructions Recorded Last Taken Type Acetaminophen [Acetaminophen TAB] 650 mg PO Q4H PRN tablet 05/05/18 Unknown Rx FLUoxetine HCL [Fluoxetine HCl] 40 mg PO QDAY #30 capsule 05/05/18 Unknown Rx Famotidine [Pepcid] 10 mg PO BID #15 tablet 05/05/18 Unknown Rx Fe Fumarate/FA/Mv, Min Comb#15 1 each PO QDAY #30 capsule 05/05/18 Unknown Rx [Hemocyte Plus] Losartan [Cozaar] 100 mg PO QDAY 30 Days tablet 05/05/18 Unknown Rx Metoprolol Xl [Metoprolol 100 mg PO QDAY #30 tablet 05/05/18 Unknown Rx SUCCINATE ER TAB] diphenhydrAMINE [Benadryl CAP] 25 mg PO Q6H PRN #15 capsule 05/05/18 Unknown Rx oxyCODONE /ACETAMINOPHEN [Percocet 1 tab PO Q6H PRN #20 tablet 05/05/18 Unknown Rx 5/325 mg] Allergies Allergy/AdvReac Type Severity Reaction Status Date / Time aspirin Allergy Unknown Verified 03/16/17 01:25 pork derived (porcine) Allergy Rash Verified 03/16/17 01:27 venom-honey bee Allergy Anaphylaxis Verified 03/16/17 01:27 [bee venom (honey bee)] Pork/Porcine Containing AdvReac Severe Nausea,VOMI Verified 02/13/17 09:31 Products TING Heart Score - HEART Score History: Moderately suspicious EKG: Non-specific Age: 45-65 Risk factors: > 3 risk factors or hx of atherosclerotic disease Troponin: > 3x normal limit HEART Score: 7 ED Review of Systems ROS: Stated complaint: CHEST PAIN Other details as noted in HPI Constitutional: denies: chills, fever Eyes: denies: eye pain, eye discharge, vision change ENT: denies: ear pain, throat pain Respiratory: denies: cough, shortness of breath, wheezing Cardiovascular: chest pain. denies: palpitations Endocrine: no symptoms reported Gastrointestinal: denies: abdominal pain, nausea, diarrhea Genitourinary: denies: urgency, dysuria Musculoskeletal: denies: back pain, joint swelling, arthralgia Skin: denies: rash, lesions Neurological: denies: headache, weakness, paresthesias Psychiatric: denies: anxiety, depression Hematological/Lymphatic: denies: easy bleeding, easy bruising ED Past Medical Hx - Past Medical History Previous Medical History?: Yes Hx Hypertension: Yes Hx Heart Attack/AMI: No Hx Congestive Heart Failure: Yes Hx Diabetes: Yes (IDDM) Hx Deep Vein Thrombosis: No Hx Renal Disease: No Hx Kidney Stones: No Hx Psychiatric Treatment: Yes (PTSD) Hx Asthma: No Hx COPD: No Additional medical history: 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, dialysis - Surgical History Past Surgical History?: Yes Hx Coronary Stent: No Hx Pacemaker: No Hx Internal Defibrillator: No Additional Surgical History: neck and back surgery x3 - Family History Family history: no significant - Social History Smoking Status: Never Smoker Substance Use Type: None - Medications Home Medications: Home Medications Medication Instructions Recorded Confirmed Last Taken Type Acetaminophen [Acetaminophen TAB] 650 mg PO Q4H PRN tablet 05/05/18 08/19/18 U nknown Rx FLUoxetine HCL [Fluoxetine HCl] 40 mg PO QDAY #30 capsule 05/05/18 08/19/18 Unknown Rx Famotidine [Pepcid] 10 mg PO BID #15 tablet 05/05/18 08/19/18 Unknown Rx Fe Fumarate/FA/Mv, Min Comb#15 1 each PO QDAY #30 capsule 05/05/18 08/19/18 Unknown Rx [Hemocyte Plus] Losartan [Cozaar] 100 mg PO QDAY 30 Days tablet 05/05/18 08/19/18 Unknown Rx Metoprolol Xl [Metoprolol 100 mg PO QDAY #30 tablet 05/05/18 08/19/18 Unknown Rx SUCCINATE ER TAB] diphenhydrAMINE [Benadryl CAP] 25 mg PO Q6H PRN #15 capsule 05/05/18 08/19/18 Unknown Rx oxyCODONE /ACETAMINOPHEN [Percocet 1 tab PO Q6H PRN #20 tablet 05/05/18 08/19/18 Unknown Rx 5/325 mg] ED Physical Exam - General Limitations: Physical Limitation General appearance: alert, in no apparent distress - Head Head exam: Present: atraumatic, normocephalic - Eye Eye exam: Present: normal appearance, PERRL Pupils: Present: normal accommodation - ENT ENT exam: Present: normal exam, mucous membranes moist - Neck Neck exam: Present: normal inspection - Respiratory Respiratory exam: Present: normal lung sounds bilaterally. Absent: respiratory distress - Cardiovascular Cardiovascular Exam: Present: regular rate, normal rhythm. Absent: systolic murmur, diastolic murmur, rubs, gallop - GI/Abdominal GI/Abdominal exam: Present: soft, normal bowel sounds - Rectal Rectal exam: Present: deferred - Extremities Exam Extremities exam: Present: normal inspection - Back Exam Back exam: Present: normal inspection - Neurological Exam Neurological exam: Present: alert, oriented X3 - Psychiatric Psychiatric exam: Present: normal affect, normal mood - Skin Skin exam: Present: warm, dry, intact, normal color. Absent: rash ED Course Vital Signs 08/25/18 00:38 Temperature 97.4 F L Pulse Rate 97 H Respiratory 18 Rate Blood Pressure 136/110 O2 Sat by Pulse 99 Oximetry - Reevaluation(s) Reevaluation #1: Discussed all results with patient. 08/25/18 01:53 Stress plan of care with patient. Patient agrees with plan of care. Patient states his pain has improved. 08/25/18 02:12 - Consultations Consultation #1: Hospitalist consulted for admission. Hospitalist to admit patient and assume care of patient. Bridging orders were placed 08/25/18 02:12 ARSALAN score - Arsalan Score Age > 65: (1) Yes Aspirin use within the Past 7 Days: (0) No 3 or more CAD Risk Factors: (1) Yes 2 or more Angina events in past 24 hrs: (0) No Known CAD with more than 50% Stenosis: (0) No Elevated Cardiac Markers: (1) Yes ST Deviation Greater than 0.5mm: (0) No ARSALAN Score: 3 ED Medical Decision Making - Lab Data Result diagrams: 08/25/18 01:07 08/25/18 01:07 - EKG Data -: EKG Interpreted by Me EKG shows normal: intervals, QRS complexes, ST-T waves Rate: tachycardia - EKG Data Interpretation: LVH, other (A. fib with a fascicular block.) - Radiology Data Radiology results: image reviewed interpreted by me: Left large pleural effusion. - Medical Decision Making Patient is a 71-year-old male that comes emergency with chest pain 1-1/2 hours prior to arrival. Patient states chest pain was in the center of his chest. Patient initial cardiac workup was negative. Patient's troponin is elevated most likely secondary to chronic kidney disease. X-ray done and findings consistent with large pleural effusion for which the patient has a chronic large pleural effusion in the past. Patient's EKG shows A. fib. Patient will be admitted to the hospitalist service for further evaluation and treatment. - Differential Diagnosis chest pain, ACS. Critical Care Time: Yes Critical care attestation.: If time is entered above; I have spent that time in minutes in the direct care of this critically ill patient, excluding procedure time. Critical Care Time: 35 minutes ED Disposition Clinical Impression: ESRD (end stage renal disease) on dialysis, ESRD needing dialysis, Elevated troponin I level, Pleural effusion Chest pain Qualifiers: Chest pain type: unspecified Qualified Code(s): R07.9 - Chest pain, unspecified Afib Qualifiers: Atrial fibrillation type: unspecified Qualified Code(s): I48.91 - Unspecified atrial fibrillation Disposition: OP ADMIT IP TO THIS HOSP Is pt being admited?: Yes Does the pt Need Aspirin: No Condition: Critical Time of Disposition: 02:15
[2018-08-25 01:22] LABS: Basophils % (Auto) 1.2 % (0.0-1.8); Eosinophils % (Auto) 0.9 % (0.0-4.3); Hematocrit 31.8 % (35.5-45.6); Hemoglobin 10.5 gm/dl (11.8-15.2); Lymphocytes # (Auto) 0.8 K/mm3 (1.2-5.4); Lymphocytes % (Auto) 20.6 % (13.4-35.0); Mean Corpuscular HGB Conc 33 % (32-34); Mean Corpuscular Volume 101 fl (84-94); Monocytes # (Auto) 0.5 K/mm3 (0.0-0.8); Monocytes % (Auto) 12.2 % (0.0-7.3); Red Blood Count 3.14 M/mm3 (3.65-5.03)
[2018-08-25 01:23] LABS: Platelet Count 98 K/mm3 (140-440); Red Cell Distribution Width 22.3 % (13.2-15.2)
[2018-08-25 01:42] LABS: Albumin 2.4 g/dL (3.9-5); Calcium 8.9 mg/dL (8.4-10.2)
--- NOTE | 2018-08-25 02:37 | XRay Report ---
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 CPT 10494 HISTORY: Shortness of breath COMPARISONS: August 18, 2018. FINDINGS: Heart: The heart is enlarged.. Mediastinum/Vessels: Normal. Lungs/Pleural space: There is bilateral perihilar edema or infiltrate. There is a large left pleural effusion. There is no pneumothorax.. Bony thorax: No acute osseous abnormality. Life support devices: There is a right-sided central venous catheter. The tip is in the right atrium of the heart.. IMPRESSION: The heart is enlarged.. There is bilateral perihilar edema or infiltrate. There is a large left pleural effusion. There is no pneumothorax.. There is a right-sided central venous catheter. The tip is in the right atrium of the heart... This document is electronically signed by Carlos Skinner MD., August 25 2018 02:35:09 AM ET
[2018-08-25] MEDS ORDERED: ZOFRAN IV PRN (03:58)
[2018-08-25] MEDS ORDERED: MILK OF MAGNESIA PO PRN (03:58)
--- NOTE | 2018-08-25 04:09 | History and Physical Report ---
History of Present Illness Date of examination: 08/25/18 Date of admission: 08/25/18 02:23 Chief complaint: Chest pain History of present illness: Patient is a 71-year-old male with past medical history of DM type II, hypertension, end-stage renal disease on hemodialysis, CAD, hyperlipidemia, PVD, who was brought to the ER by EMS with complaints of chest pain for about 1-2 hours before arriving. Patient states that he was admitted last week for this same complaints, he feels like someone is walking on her chest, he was told that he has fluid in his lungs and needed to help remove it, but he refused. Patient states that the pain started around 11 PM tonight, he received nitroglycerin in the ambulance with no improvement. Patient states the pain is an intensity of 10 out of 10, it is located in the mid sternal area, associated with shortness of breath, patient denies radiation of the pain. Patient denies cough, fever and chills, denies diaphoresis, denies palpitation. In the ER his EKG shows no STEMI criteria, troponin was 0.210 his H&H was 10.5/31.8, platelet 98.0. Patient is admitted for further evaluation of the chest Pain. Past History Past Medical History: CAD, diabetes, ESRD, hypertension, hyperlipidemia Social history: no significant social history Medications and Allergies Allergies Allergy/AdvReac Type Severity Reaction Status Date / Time aspirin Allergy Unknown Verified 03/16/17 01:25 pork derived (porcine) Allergy Rash Verified 03/16/17 01:27 venom-honey bee Allergy Anaphylaxis Verified 03/16/17 01:27 [bee venom (honey bee)] Pork/Porcine Containing AdvReac Severe Nausea,VOMI Verified 02/13/17 09:31 Products TING Home Medications Medication Instructions Recorded Confirmed Last Taken Type Acetaminophen [Acetaminophen TAB] 650 mg PO Q4H PRN tablet 05/05/18 08/19/18 Unknown Rx FLUoxetine HCL [Fluoxetine HCl] 40 mg PO QDAY #30 capsule 05/05/18 08/19/18 Unknown Rx Famotidine [Pepcid] 10 mg PO BID #15 tablet 05/05/18 08/19/18 Unknown Rx Fe Fumarate/FA/Mv, Min Comb#15 1 each PO QDAY #30 capsule 05/05/18 08/19/18 Unknown Rx [Hemocyte Plus] Losartan [Cozaar] 100 mg PO QDAY 30 Days tablet 05/05/18 08/19/18 Unknown Rx Metoprolol Xl [Metoprolol 100 mg PO QDAY #30 tablet 05/05/18 08/19/18 Unknown Rx SUCCINATE ER TAB] diphenhydrAMINE [Benadryl CAP] 25 mg PO Q6H PRN #15 capsule 05/05/18 08/19/18 Unknown Rx oxyCODONE /ACETAMINOPHEN [Percocet 1 tab PO Q6H PRN #20 tablet 05/05/18 08/19/18 Unknown Rx 5/325 mg] Active Meds: Active Medications Acetaminophen (Tylenol) 650 mg PO Q4H PRN PRN Reason: Pain MILD(1-3)/Fever >100.5/DOUGLAS Magnesium Hydroxide (Milk Of Magnesia) 30 ml PO Q4H PRN PRN Reason: Constipation Ondansetron HCl (Zofran) 4 mg IV Q8H PRN PRN Reason: Nausea And Vomiting Oxycodone/Acetaminophen (Percocet 5/325) 1 tab PO Q6H PRN PRN Reason: Pain, Moderate (4-6) Sodium Chloride (Sodium Chloride Flush Syringe 10 Ml) 10 ml IV BID BEAN Sodium Chloride (Sodium Chloride Flush Syringe 10 Ml) 10 ml IV PRN PRN PRN Reason: LINE FLUSH Review of Systems Constitutional: other (chest pain) Cardiovascular: chest pain, shortness of breath Integumentary: darkening of skin Psychiatric: anxiety Exam - Constitutional Vitals: Temp Pulse Resp BP Pulse Ox 97.4 F L 97 H 18 136/110 99 08/25/18 00:38 08/25/18 00:38 08/25/18 00:38 08/25/18 00:38 08/25/18 00:38 General appearance: Present: mild distress - EENT Eyes: Present: PERRL ENT: hearing intact - Neck Neck: Present: normal ROM - Respiratory Respiratory effort: normal Respiratory: bilateral: diminished - Cardiovascular Rhythm: irregularly irregular - Extremities Extremities: no ischemia Extremity abnormal: edema, other (trace) Peripheral Pulses: within normal limits - Abdominal General gastrointestinal: Present: soft, non-tender, non-distended Male genitourinary: Present: deferred - Rectal Rectal Exam: deferred - Integumentary Integumentary: Present: warm, dry - Musculoskeletal Musculoskeletal: generalized weakness - Psychiatric Psychiatric: appropriate mood/affect - Neurologic Neurologic: moves all extremities Results - Labs CBC & Chem 7: 08/25/18 01:07 08/25/18 01:07 Labs: Laboratory Last Values WBC 4.0 K/mm3 (4.5-11.0) L 08/25/18 01:07 RBC 3.14 M/mm3 (3.65-5.03) L 08/25/18 01:07 Hgb 10.5 gm/dl (11.8-15.2) L 08/25/18 01:07 Hct 31.8 % (35.5-45.6) L 08/25/18 01:07 MCV 101 fl (84-94) H 08/25/18 01:07 MCH 34 pg (28-32) H 08/25/18 01:07 MCHC 33 % (32-34) 08/25/18 01:07 RDW 22.3 % (13.2-15.2) H 08/25/18 01:07 Plt Count 98 K/mm3 (140-440) L 08/25/18 01:07 Lymph % (Auto) 20.6 % (13.4-35.0) 08/25/18 01:07 [place] % (Auto) 12.2 % (0.0-7.3) H 08/25/18 01:07 Eos % (Auto) 0.9 % (0.0-4.3) 08/25/18 01:07 Baso % (Auto) 1.2 % (0.0-1.8) 08/25/18 01:07 Lymph # 0.8 K/mm3 (1.2-5.4) L 08/25/18 01:07 [place] # 0.5 K/mm3 (0.0-0.8) 08/25/18 01:07 Eos # 0.0 K/mm3 (0.0-0.4) 08/25/18 01:07 Baso # 0.0 K/mm3 (0.0-0.1) 08/25/18 01:07 Seg Neutrophils % 65.1 % (40.0-70.0) 08/25/18 01:07 Seg Neutrophils # 2.6 K/mm3 (1.8-7.7) 08/25/18 01:07 Sodium 137 mmol/L (137-145) 08/25/18 01:07 Potassium 3.8 mmol/L (3.6-5.0) D 08/25/18 01:07 Chloride 98.0 mmol/L (98-107) 08/25/18 01:07 Carbon Dioxide 23 mmol/L (22-30) 08/25/18 01:07 Anion Gap 20 mmol/L 08/25/18 01:07 BUN 39 mg/dL (9-20) H 08/25/18 01:07 Creatinine 4.7 mg/dL (0.8-1.5) H 08/25/18 01:07 Estimated GFR 15 ml/min 08/25/18 01:07 BUN/Creatinine Ratio 8 % 08/25/18 01:07 Glucose 94 mg/dL (75-100) 08/25/18 01:07 Calcium 8.9 mg/dL (8.4-10.2) 08/25/18 01:07 Total Bilirubin 0.40 mg/dL (0.1-1.2) 08/25/18 01:07 AST 27 units/L (5-40) 08/25/18 01:07 ALT 19 units/L (7-56) 08/25/18 01:07 Alkaline Phosphatase 110 units/L (35-129) 08/25/18 01:07 Troponin T 0.210 ng/mL (0.00-0.029) H* 08/25/18 01:07 Total Protein 6.1 g/dL (6.3-8.2) L 08/25/18 01:07 Albumin 2.4 g/dL (3.9-5) L 08/25/18 01:07 Albumin/Globulin Ratio 0.6 % 08/25/18 01:07 Assessment and Plan Assessment and plan: 1. Chest pain R/o cardiac etiology 2. DM type II 3. CAD/CHF 4. Hyperlipidemia 5. PVD (s/p left arm amputation) 6. Hypertension 7. ESRD on hemodialysis. 8. Bilateral perihilar Edema/infiltrate Plan: Patient is admitted with chest pain Recently the cardiac Consult cardiology for chest pain Monitor for fever Consult nephrology for hemodialysis Consult cardiology which is Resume home meds DVT prophylaxis heparin Advance Directives: Yes VTE prophylaxis?: Chemical Plan of care discussed with patient/family: Yes
[2018-08-25] MEDS ORDERED: MORPHINE ONE (04:48)
[2018-08-25] MEDS ORDERED: PERCOCET 5/325 PO PRN (06:57)
[2018-08-25] MEDS: HumuLIN R SUB-Q SCH ×3 (09:21→22:37)
--- NOTE | 2018-08-25 09:22 | Consultation ---
History of Present Illness - Reason for Consult Consult date: 08/25/18 end stage renal disease - History of Present Illness The patient is a 71 YO male with history significanty for DM type 2, HTN, A.fib, CAD, CHF, PTSD, PAD s/p left forearm amputation and ESRD on hemodialysis (TTS) who presented to [facility] ED today with chest pain since last night. He was recently admitted with similar presentation. Pain is in the left side of the chest, constant, sharp, not radiating and exacerbating or relieving factors. Patient denies palpitation, N, V, D, increasing sob, diaphoresis, leg swelling, fever, chills, dizziness or syncope. Patient was last dialyzed 2 days ago. Nephrology was consulted for ESRD management. Past History Past Medical History: atrial fib, CAD, diabetes, dialysis, ESRD, hypertension, hyperlipidemia Social history: no significant social history Medications and Allergies Allergies Allergy/AdvReac Type Severity Reaction Status Date / Time aspirin Allergy Unknown Verified 03/16/17 01:25 pork derived (porcine) Allergy Rash Verified 03/16/17 01:27 venom-honey bee Allergy Anaphylaxis Verified 03/16/17 01:27 [bee venom (honey bee)] Pork/Porcine Containing AdvReac Severe Nausea,VOMI Verified 02/13/17 09:31 Products TING Home Medications Medication Instructions Recorded Confirmed Last Taken Type Acetaminophen [Acetaminophen TAB] 650 mg PO Q4H PRN tablet 05/05/18 08/19/18 Unknown Rx FLUoxetine HCL [Fluoxetine HCl] 40 mg PO QDAY #30 capsule 05/05/18 08/19/18 Unknown Rx Famotidine [Pepcid] 10 mg PO BID #15 tablet 05/05/18 08/19/18 Unknown Rx Fe Fumarate/FA/Mv, Min Comb#15 1 each PO QDAY #30 capsule 05/05/18 08/19/18 Unknown Rx [Hemocyte Plus] Losartan [Cozaar] 100 mg PO QDAY 30 Days tablet 05/05/18 08/19/18 Unknown Rx Metoprolol Xl [Metoprolol 100 mg PO QDAY #30 tablet 05/05/18 08/19/18 Unknown Rx SUCCINATE ER TAB] diphenhydrAMINE [Benadryl CAP] 25 mg PO Q6H PRN #15 capsule 05/05/18 08/19/18 Unknown Rx oxyCODONE /ACETAMINOPHEN [Percocet 1 tab PO Q6H PRN #20 tablet 05/05/18 08/19/18 Unknown Rx 5/325 mg] Active Meds: Active Medications Acetaminophen (Tylenol) 650 mg PO Q4H PRN PRN Reason: Pain MILD(1-3)/Fever >100.5/DOUGLAS Diphenhydramine HCl (Benadryl) 25 mg PO Q6H PRN PRN Reason: Itching Famotidine (Pepcid) 10 mg PO BID [facility] Fluoxetine HCl (Prozac) 40 mg PO QDAY [facility] Insulin Human Regular (Humulin R) 0 units SUB-Q ACHS [facility]; Protocol Last Admin: 08/25/18 09:21 Dose: Not Given Documented by: Losartan Potassium (Cozaar) 100 mg PO QDAY [facility] Magnesium Hydroxide (Milk Of Magnesia) 30 ml PO Q4H PRN PRN Reason: Constipation Metoprolol Succinate (Toprol Xl) 100 mg PO QDAY@0800 [facility] Multivitamins/Iron (Hemocyte Plus) 1 each PO QDAY [facility] Ondansetron HCl (Zofran) 4 mg IV Q8H PRN PRN Reason: Nausea And Vomiting Oxycodone/Acetaminophen (Percocet 5/325) 1 tab PO Q6H PRN PRN Reason: Pain, Moderate (4-6) Sodium Chloride (Sodium Chloride Flush Syringe 10 Ml) 10 ml IV BID [facility] Sodium Chloride (Sodium Chloride Flush Syringe 10 Ml) 10 ml IV PRN PRN PRN Reason: LINE FLUSH Review of Systems Constitutional: other (decreased appetite), no weight loss, no weight gain, no fever, no chills, no anorexia, no weakness Cardiovascular: chest pain, orthopnea, shortness of breath, dyspnea on exertion, high blood pressure, no rapid/irregular heart beat, no edema, no syncope, no lightheadedness, no leg edema Respiratory: cough, shortness of breath, dyspnea on exertion Gastrointestinal: no abdominal pain, no nausea, no vomiting, no diarrhea, no melena Genitourinary Male: no dysuria, no hematuria Rectal: no bleeding Musculoskeletal: no shooting arm pain, no redness of joints Integumentary: no rash, no redness, no wounds, no jaundice Neurological: no paralysis, no weakness, no seizures, no syncope, no convulsions, no aphasia, no change in speech, no change in mentation, no confusion Endocrine: no weight change Exam - Vital Signs Vital signs: Vital Signs Temp Pulse Resp BP Pulse Ox 97.4 F L 97 H 18 136/110 99 08/25/18 00:38 08/25/18 00:38 08/25/18 00:38 08/25/18 00:38 08/25/18 00:38 - General Appearance General appearance: well-developed, appears stated age, frail, other (not in distress, right IJ tunnel catheter) EENT: ATNC, PERRL, hearing intact, vision intact Neck: Present: neck supple, trachea midline Respiratory: Clear to Ascultation, Decreased Breath Sounds Heart: irregularly irregular, no murmurs Gastrointestinal: Present: normoactive bowel sounds. Absent: tenderness, disten ded Integumentary: warm and dry, ulcer (right thumb) Neurologic: no focal deficit, no asterixis, alert and oriented x3 Musculoskeletal: Present: other (trace pedal edema, left below elbow amputation) Psychiatric: cooperative Results - Lab Results 08/25/18 01:07 08/25/18 01:07 Most recent lab results Calcium 8.9 mg/dL (8.4-10.2) 08/25/18 01:07 Assessment and Plan 1. ESRD: Patient usually gets hemodialysis on TTSs. HD today, if the heart rate is too high. 2. Chest pain: Followed by cards. 3. A.fib with RVR. 4. DM type 2. 5. Chronic pleural effusion. 6. Anemia: Epogen if needed. 7. PAD.
--- NOTE | 2018-08-25 09:45 | Consultation ---
History of Present Illness Consult date: 08/25/18 Consult reason: chest pain History of present illness: Patient is a 71-year-old male with past medical history of DM type II, hypertension, end-stage renal disease on hemodialysis, CAD, hyperlipidemia, PVD, who was brought to the ER by EMS with complaints of chest pain for about 1-2 hours before arriving. Patient states that he was admitted last week for this same complaints, he feels like someone is walking on her chest, he was told that he has fluid in his lungs and needed to help remove it, but he refused. Patient states that the pain started around 11 PM last night. He reportedly received nitroglycerin in the ambulance with no improvement. Patient states the pain is located in the mid sternal area, associated with shortness of breath, patient denies radiation of the pain. Patient denies orthopnea, pnd, dizzziness, syncope or palpitation. EKG shows sinus rhythm with nonspecific STTW changes Past History Past Medical History: CAD, diabetes, ESRD, hypertension, hyperlipidemia Social history: no significant social history Medications and Allergies Allergies Allergy/AdvReac Type Severity Reaction Status Date / Time aspirin Allergy Unknown Verified 03/16/17 01:25 pork derived (porcine) Allergy Rash Verified 03/16/17 01:27 venom-honey bee Allergy Anaphylaxis Verified 03/16/17 01:27 [bee venom (honey bee)] Pork/Porcine Containing AdvReac Severe Nausea,VOMI Verified 02/13/17 09:31 Products TING Home Medications Medication Instructions Recorded Confirmed Last Taken Type Acetaminophen [Acetaminophen TAB] 650 mg PO Q4H PRN tablet 05/05/18 08/19/18 U nknown Rx FLUoxetine HCL [Fluoxetine HCl] 40 mg PO QDAY #30 capsule 05/05/18 08/19/18 Unknown Rx Famotidine [Pepcid] 10 mg PO BID #15 tablet 05/05/18 08/19/18 Unknown Rx Fe Fumarate/FA/Mv, Min Comb#15 1 each PO QDAY #30 capsule 05/05/18 08/19/18 Unknown Rx [Hemocyte Plus] Losartan [Cozaar] 100 mg PO QDAY 30 Days tablet 05/05/18 08/19/18 Unknown Rx Metoprolol Xl [Metoprolol 100 mg PO QDAY #30 tablet 11/17/18 03/03/19 Unknown Rx SUCCINATE ER TAB] diphenhydrAMINE [Benadryl CAP] 25 mg PO Q6H PRN #15 capsule 05/05/18 08/19/18 Unknown Rx oxyCODONE /ACETAMINOPHEN [Percocet 1 tab PO Q6H PRN #20 tablet 05/05/18 08/19/18 Unknown Rx 5/325 mg] Active Meds: Active Medications Acetaminophen (Tylenol) 650 mg PO Q4H PRN PRN Reason: Pain MILD(1-3)/Fever >100.5/DOUGLAS Diphenhydramine HCl (Benadryl) 25 mg PO Q6H PRN PRN Reason: Itching Famotidine (Pepcid) 10 mg PO BID BEAN Fluoxetine HCl (Prozac) 40 mg PO QDAY [facility] Insulin Human Regular (Humulin R) 0 units SUB-Q ACHS [facility]; Protocol Last Admin: 08/25/18 09:21 Dose: Not Given Documented by: Losartan Potassium (Cozaar) 100 mg PO QDAY [facility] Magnesium Hydroxide (Milk Of Magnesia) 30 ml PO Q4H PRN PRN Reason: Constipation Metoprolol Succinate (Toprol Xl) 100 mg PO QDAY@0800 [facility] Multivitamins/Iron (Hemocyte Plus) 1 each PO QDAY [facility] Ondansetron HCl (Zofran) 4 mg IV Q8H PRN PRN Reason: Nausea And Vomiting Oxycodone/Acetaminophen (Percocet 5/325) 1 tab PO Q6H PRN PRN Reason: Pain, Moderate (4-6) Sodium Chloride (Sodium Chloride Flush Syringe 10 Ml) 10 ml IV BID [facility] Sodium Chloride (Sodium Chloride Flush Syringe 10 Ml) 10 ml IV PRN PRN PRN Reason: LINE FLUSH Review of Systems All systems: negative (pertinent positives in HPI) Physical Examination Vital Signs Temp Pulse Resp BP Pulse Ox 97.4 F L 97 H 18 136/110 99 08/25/18 00:38 08/25/18 00:38 08/25/18 00:38 08/25/18 00:38 08/25/18 00:38 General appearance: no acute distress HEENT: Positive: PERRL, EOMI Cardiac: Positive: Reg Rate and Rhythm, Regular Rate Lungs: Positive: clear to auscultation Neuro: Positive: Grossly Intact Abdomen: Positive: Unremarkable Extremities: Present: normal. Absent: edema Results 03/09/19 01:07 08/25/18 01:07 Cardiac Enzymes 08/25/18 Range/Units 01:07 AST 27 (5-40) units/L CBC 08/25/18 Range/Units 01:07 WBC 4.0 L (4.5-11.0) K/mm3 RBC 3.14 L (3.65-5.03) M/mm3 Hgb 10.5 L (11.8-15.2) gm/dl Hct 31.8 L (35.5-45.6) % Plt Count 98 L (140-440) K/mm3 Lymph # 0.8 L (1.2-5.4) K/mm3 Lares # 0.5 (0.0-0.8) K/mm3 Eos # 0.0 (0.0-0.4) K/mm3 Baso # 0.0 (0.0-0.1) K/mm3 Comprehensive Metabolic Panel 08/25/18 Range/Units 01:07 Sodium 137 (137-145) mmol/L Potassium 3.8 D (3.6-5.0) mmol/L Chloride 98.0 (98-107) mmol/L Carbon Dioxide 23 (22-30) mmol/L BUN 39 H (9-20) mg/dL Creatinine 4.7 H (0.8-1.5) mg/dL Glucose 94 (75-100) mg/dL Calcium 8.9 (8.4-10.2) mg/dL AST 27 (5-40) units/L ALT 19 (7-56) units/L Alkaline Phosphatase 110 (35-129) units/L Total Protein 6.1 L (6.3-8.2) g/dL Albumin 2.4 L (3.9-5) g/dL EKG interpretations - Telemetry EKG Rhythm: Sinus Rhythm (with nonspecific STTW changes) Assessment and Plan 1. Chest pain - patient had an LHC 2016 showing moderate to severe calcification in the left main with minimal irregularities. LAD showed a long 50-70% stenosis of the proximal segment. LCx and RCA were angiographically normal. Given the known coronary disease in the LAD and typical anginal symptoms, would recommend repeat LHC with IFR of the LAD; however, the patient states he "fall all the time". given this, along with his extensive co-morbid ities, the patient is a poor candidate for intervention with long-term duel antiplatelet therapy. Recommend Maximal medical therapy with BB, and statin, as well as additinoal antianginals. Check echo. Patient is aspirin allergic 2. DM type II - management per primary 3. CAD/CHF - check echo. as above 4. Hyperlipidemia - high intensity statin 5. PVD (s/p left arm amputation) - high intensity statin. 6. Hypertension - maximize medical therapy 7. ESRD on hemodialysis - per nephrology
[2018-08-25] MEDS: TOPROL XL PO SCH (10:10)
[2018-08-25] MEDS ORDERED: TOPROL XL PO ONE (10:13)
[2018-08-25] MEDS ORDERED: NACL 0.9% 100 ML IV PRN (10:27)
--- NOTE | 2018-08-25 12:21 | Progress Note ---
<GLADIS DONG R - Last Filed: 08/25/18 12:17> Assessment and Plan Assessment and plan: Chest pain. Continue beta jett and statin. Cardiology consulted and recommends repeat LHC with IFR of the LAD. Patient had an LHC 2017 showing moderate to severe calcification in the left main with minimal irregularities. LAD showed a long 50-70% stenosis of the proximal segment. LCx and RCA were angiographically normal. Follow-up echocardiogram. Diabetes mellitus type 2. Continue Accu-Cheks Scheduled insulin. Hyperlipidemia. Continue statins. Peripheral vascular disease. Continue statins Hypertension. Continue antihypertensive medications. ESRD. Continue hemodialysis per nephrology. History Interval history: No new issues overnight. Hospitalist Physical - Constitutional Vitals: Temp Pulse Resp BP Pulse Ox 98.6 F 117 H 20 159/122 100 08/25/18 07:12 08/25/18 10:30 08/25/18 11:12 08/25/18 10:30 08/25/18 10:30 General appearance: Present: no acute distress - EENT Eyes: Present: PERRL, EOM intact ENT: hearing intact, clear oral mucosa, dentition normal - Neck Neck: Present: supple, normal ROM - Respiratory Respiratory effort: normal Respiratory: bilateral: CTA - Cardiovascular Rhythm: regular Heart Sounds: Present: S1 & S2. Absent: gallop, rub - Extremities Extremities: no ischemia, No edema, Full ROM - Abdominal General gastrointestinal: soft, non-tender, non-distended, normal bowel sounds - Integumentary Integumentary: Present: clear, warm, dry - Neurologic Neurologic: CNII-XII intact, moves all extremities Results - Labs CBC & Chem 7: 08/25/18 01:07 08/25/18 01:07 Labs: Laboratory Last Values WBC 4.0 K/mm3 (4.5-11.0) L 08/25/18 01:07 RBC 3.14 M/mm3 (3.65-5.03) L 08/25/18 01:07 Hgb 10.5 gm/dl (11.8-15.2) L 08/25/18 01:07 Hct 31.8 % (35.5-45.6) L 08/25/18 01:07 MCV 101 fl (84-94) H 08/25/18 01:07 MCH 34 pg (28-32) H 08/25/18 01:07 MCHC 33 % (32-34) 08/25/18 01:07 RDW 22.3 % (13.2-15.2) H 08/25/18 01:07 Plt Count 98 K/mm3 (140-440) L 08/25/18 01:07 Lymph % (Auto) 20.6 % (13.4-35.0) 08/25/18 01:07 Hardy % (Auto) 12.2 % (0.0-7.3) H 08/25/18 01:07 Eos % (Auto) 0.9 % (0.0-4.3) 08/25/18 01:07 Baso % (Auto) 1.2 % (0.0-1.8) 08/25/18 01:07 Lymph # 0.8 K/mm3 (1.2-5.4) L 08/25/18 01:07 Hardy # 0.5 K/mm3 (0.0-0.8) 08/25/18 01:07 Eos # 0.0 K/mm3 (0.0-0.4) 08/25/18 01:07 Baso # 0.0 K/mm3 (0.0-0.1) 08/25/18 01:07 Seg Neutrophils % 65.1 % (40.0-70.0) 08/25/18 01:07 Seg Neutrophils # 2.6 K/mm3 (1.8-7.7) 08/25/18 01:07 Sodium 137 mmol/L (137-145) 08/25/18 01:07 Potassium 3.8 mmol/L (3.6-5.0) D 08/25/18 01:07 Chloride 98.0 mmol/L (98-107) 08/25/18 01:07 Carbon Dioxide 23 mmol/L (22-30) 08/25/18 01:07 Anion Gap 20 mmol/L 08/25/18 01:07 BUN 39 mg/dL (9-20) H 08/25/18 01:07 Creatinine 4.7 mg/dL (0.8-1.5) H 08/25/18 01:07 Estimated GFR 15 ml/min 08/25/18 01:07 BUN/Creatinine Ratio 8 % 08/25/18 01:07 Glucose 94 mg/dL (75-100) 08/25/18 01:07 POC Glucose 82 (70-105) 08/25/18 09:10 Calcium 8.9 mg/dL (8.4-10.2) 08/25/18 01:07 Total Bilirubin 0.40 mg/dL (0.1-1.2) 08/25/18 01:07 AST 27 units/L (5-40) 08/25/18 01:07 ALT 19 units/L (7-56) 08/25/18 01:07 Alkaline Phosphatase 110 units/L (35-129) 08/25/18 01:07 Troponin T 0.210 ng/mL (0.00-0.029) H* 08/25/18 01:07 Total Protein 6.1 g/dL (6.3-8.2) L 08/25/18 01:07 Albumin 2.4 g/dL (3.9-5) L 08/25/18 01:07 Albumin/Globulin Ratio 0.6 % 08/25/18 01:07 <ENEDINA ROCHA - Last Filed: 08/25/18 22:36> Hospitalist Physical - Constitutional Vitals: Temp Pulse Resp BP Pulse Ox 97.9 F 72 18 161/116 100 08/25/18 18:04 08/25/18 18:04 08/25/18 18:04 08/25/18 18:04 08/25/18 21:55 Results - Labs CBC & Chem 7: 08/25/18 01:07 08/25/18 01:07 Labs: Laboratory Last Values WBC 4.0 K/mm3 (4.5-11.0) L 08/25/18 01:07 RBC 3.14 M/mm3 (3.65-5.03) L 08/25/18 01:07 Hgb 10.5 gm/dl (11.8-15.2) L 08/25/18 01:07 Hct 31.8 % (35.5-45.6) L 08/25/18 01:07 MCV 101 fl (84-94) H 08/25/18 01:07 MCH 34 pg (28-32) H 08/25/18 01:07 MCHC 33 % (32-34) 08/25/18 01:07 RDW 22.3 % (13.2-15.2) H 08/25/18 01:07 Plt Count 98 K/mm3 (140-440) L 08/25/18 01:07 Lymph % (Auto) 20.6 % (13.4-35.0) 08/25/18 01:07 Hardy % (Auto) 12.2 % (0.0-7.3) H 08/25/18 01:07 Eos % (Auto) 0.9 % (0.0-4.3) 08/25/18 01:07 Baso % (Auto) 1.2 % (0.0-1.8) 08/25/18 01:07 Lymph # 0.8 K/mm3 (1.2-5.4) L 08/25/18 01:07 Hardy # 0.5 K/mm3 (0.0-0.8) 08/25/18 01:07 Eos # 0.0 K/mm3 (0.0-0.4) 08/25/18 01:07 Baso # 0.0 K/mm3 (0.0-0.1) 08/25/18 01:07 Seg Neutrophils % 65.1 % (40.0-70.0) 08/25/18 01:07 Seg Neutrophils # 2.6 K/mm3 (1.8-7.7) 08/25/18 01:07 Sodium 137 mmol/L (137-145) 08/25/18 01:07 Potassium 3.8 mmol/L (3.6-5.0) D 08/25/18 01:07 Chloride 98.0 mmol/L (98-107) 08/25/18 01:07 Carbon Dioxide 23 mmol/L (22-30) 08/25/18 01:07 Anion Gap 20 mmol/L 08/25/18 01:07 BUN 39 mg/dL (9-20) H 08/25/18 01:07 Creatinine 4.7 mg/dL (0.8-1.5) H 08/25/18 01:07 Estimated GFR 15 ml/min 08/25/18 01:07 BUN/Creatinine Ratio 8 % 08/25/18 01:07 Glucose 94 mg/dL (75-100) 08/25/18 01:07 POC Glucose 146 (70-105) H 08/25/18 21:43 Calcium 8.9 mg/dL (8.4-10.2) 08/25/18 01:07 Total Bilirubin 0.40 mg/dL (0.1-1.2) 08/25/18 01:07 AST 27 units/L (5-40) 08/25/18 01:07 ALT 19 units/L (7-56) 08/25/18 01:07 Alkaline Phosphatase 110 units/L (35-129) 08/25/18 01:07 Troponin T 0.210 ng/mL (0.00-0.029) H* 08/25/18 01:07 Total Protein 6.1 g/dL (6.3-8.2) L 08/25/18 01:07 Albumin 2.4 g/dL (3.9-5) L 08/25/18 01:07 Albumin/Globulin Ratio 0.6 % 08/25/18 01:07
[2018-08-25] MEDS: CATAPRES PO PRN (16:32)
[2018-08-25] MEDS: COZAAR PO SCH (16:38)
[2018-08-25] MEDS: PEPCID PO SCH ×2 (21:15)
[2018-08-25] MEDS: HEMOCYTE PLUS PO SCH (21:16)
[2018-08-25] MEDS: PROzac PO SCH (21:16)
[2018-08-25] MEDS: PERCOCET 5/325 PO PRN (21:16)
[2018-08-25] MEDS: SODIUM CHLORIDE FLUSH SYRINGE 10 ML IV SCH ×2 (21:17)
[2018-08-26] MEDS: PERCOCET 5/325 PO PRN ×3 (04:03→17:52)
[2018-08-26 06:05] LABS: Basophils % (Auto) 0.8 % (0.0-1.8); Eosinophils % (Auto) 0.9 % (0.0-4.3); Hematocrit 32.5 % (35.5-45.6); Hemoglobin 10.6 gm/dl (11.8-15.2); Lymphocytes # (Auto) 0.8 K/mm3 (1.2-5.4); Lymphocytes % (Auto) 22.6 % (13.4-35.0); Mean Corpuscular HGB Conc 33 % (32-34); Mean Corpuscular Volume 102 fl (84-94); Monocytes # (Auto) 0.4 K/mm3 (0.0-0.8); Monocytes % (Auto) 10.7 % (0.0-7.3); Red Blood Count 3.19 M/mm3 (3.65-5.03)
[2018-08-26 06:08] LABS: Platelet Count 90 K/mm3 (140-440)
[2018-08-26] MEDS: BENADRYL PO PRN (06:15)
[2018-08-26 06:37] LABS: Calcium 8.6 mg/dL (8.4-10.2)
--- NOTE | 2018-08-26 08:28 | Progress Note ---
Assessment and Plan 1. ESRD: Continue hemodialysis three times a week, TTS schedule. 2. Chest pain: Followed by cards. 3. A.fib with RVR: SR now. 4. DM type 2. 5. Chronic pleural effusion. 6. Anemia: Epogen if needed. 7. PAD. Subjective Date of service: 08/26/18 Interval history: Patient was examined at the bedside. Objective - Vital Signs Vital signs: Vital Signs - 12hr 08/25/18 08/25/18 08/25/18 20:04 21:55 23:18 Temperature 97.2 F L 97.7 F Pulse Rate 80 67 Respiratory 16 18 Rate Blood Pressure 135/102 133/98 O2 Sat by Pulse 97 100 100 Oximetry 08/26/18 08/26/18 03:48 04:45 Temperature 97.8 F Pulse Rate 46 L 83 Respiratory 18 Rate Blood Pressure 150/106 O2 Sat by Pulse 99 Oximetry - General Appearance General appearance: well-developed, appears stated age, frail, other (not in distress, right IJ tunnel catheter) EENT: ATNC, PERRL, hearing intact, vision intact Neck: supple Respiratory: Present: Clear to Ascultation Cardiology: regular, S1S2, no murmurs Gastrointestinal: normoactive bowel sounds, no tenderness, no distended Integumentary: no rash, warm and dry Neurologic: no focal deficit, no asterixis, alert and oriented x3 Musculoskeletal: other (no edema, left below elbow amputation) - Lab 08/26/18 05:18 08/26/18 05:18 Most recent lab results Calcium 8.6 mg/dL (8.4-10.2) 08/26/18 05:18 Medications & Allergies - Medications Allergies/Adverse Reactions: Allergies aspirin Allergy (Verified 03/16/17 01:25) Unknown stomach cramps pork derived (porcine) Allergy (Verified 03/16/17 01:27) Rash venom-honey bee [bee venom (honey bee)] Allergy (Verified 03/16/17 01:27) Anaphylaxis Pork/Porcine Containing Products Adverse Reaction (Severe, Verified 02/13/17 09:31) Nausea,VOMITING Home Medications: Home Medications Medication Instructions Recorded Confirmed Last Taken Type Acetaminophen [Acetaminophen TAB] 650 mg PO Q4H PRN tablet 05/05/18 08/26/18 Unknown Rx FLUoxetine HCL [Fluoxetine HCl] 40 mg PO QDAY #30 capsule 05/05/18 08/26/18 Unknown Rx Famotidine [Pepcid] 10 mg PO BID #15 tablet 05/05/18 08/26/18 Unknown Rx Fe Fumarate/FA/Mv, Min Comb#15 1 each PO QDAY #30 capsule 05/05/18 08/26/18 Unk nown Rx [Hemocyte Plus] Losartan [Cozaar] 100 mg PO QDAY 30 Days tablet 05/05/18 08/26/18 Unknown Rx Metoprolol Xl [Metoprolol 100 mg PO QDAY #30 tablet 05/05/18 08/26/18 Unknown Rx SUCCINATE ER TAB] diphenhydrAMINE [Benadryl CAP] 25 mg PO Q6H PRN #15 capsule 05/05/18 08/26/18 Unknown Rx oxyCODONE /ACETAMINOPHEN [Percocet 1 tab PO Q6H PRN #20 tablet 05/05/18 08/26/18 Unknown Rx 5/325 mg] Active Medications: Generic Name Dose Route Start Last Admin [facility] Reason Stop Dose Admin Acetaminophen 650 mg 08/25/18 03:58 Tylenol PO Q4H PRN Pain MILD(1-3)/Fever >100.5/DOUGLAS Atorvastatin Calcium 40 mg 08/25/18 22:00 08/25/18 21:16 Lipitor PO 40 mg QHS BEAN Administration Clonidine HCl 0.1 mg 08/25/18 16:09 08/25/18 16:32 Catapres PO 0.1 mg Q4H PRN Administration Chest Pain Diphenhydramine HCl 25 mg 08/25/18 06:57 08/26/18 06:15 Benadryl PO 25 mg Q6H PRN Administration Itching Epoetin Prashant 10,000 unit 08/25/18 10:27 Procrit SUB-Q KATERYNA PRN hemodialysis Famotidine 10 mg 08/25/18 10:00 08/25/18 21:15 Pepcid PO 10 mg BID BEAN Administration Fluoxetine HCl 40 mg 08/25/18 10:00 08/25/18 21:16 Prozac PO 40 mg QDAY BEAN Administration Sodium Chloride 100 mls @ 999 mls/hr 08/25/18 10:27 Nacl 0.9% IV KATERYNA PRN Hypotension Insulin Human Regular 0 units 08/25/18 07:30 08/25/18 22:37 Humulin R SUB-Q Not Given ACHS [facility] Protocol Losartan Potassium 100 mg 08/25/18 10:00 08/25/18 16:38 Cozaar PO 100 mg QDAY BEAN Administration Magnesium Hydroxide 30 ml 08/25/18 03:58 Milk Of Magnesia PO Q4H PRN Constipation Metoprolol Succinate 100 mg 08/25/18 08:00 08/25/18 10:10 Toprol Xl PO 100 mg QDAY@0800 BEAN Administration Multivitamins/Iron 1 each 08/25/18 10:00 08/25/18 21:16 Hemocyte Plus PO 1 each QDAY BEAN Administration Ondansetron HCl 4 mg 08/25/18 03:58 Zofran IV Q8H PRN Nausea And Vomiting Oxycodone/Acetaminophen 1 tab 08/25/18 03:58 08/26/18 04:03 Percocet 5/325 PO 1 tab Q6H PRN Administration Pain, Moderate (4-6) Sodium Chloride 10 ml 08/25/18 10:00 08/25/18 21:17 Sodium Chloride Flush Syringe 10 Ml IV 10 ml BID BEAN Administration Sodium Chloride 10 ml 08/25/18 03:58 Sodium Chloride Flush Syringe 10 Ml IV PRN PRN LINE FLUSH
[2018-08-26] MEDS: HumuLIN R SUB-Q SCH ×4 (08:37→23:04)
[2018-08-26] MEDS: TOPROL XL PO SCH (08:49)
[2018-08-26] MEDS: CATAPRES PO PRN (08:50)
--- NOTE | 2018-08-26 09:39 | Progress Note ---
Assessment and Plan 1. Chest pain - patient had an LHC 2017 showing moderate to severe calcification in the left main with minimal irregularities. LAD showed a long 50-70% stenosis of the proximal segment. LCx and RCA were angiographically normal. Given the known coronary disease in the LAD and typical anginal symptoms, would recommend repeat LHC with IFR of the LAD; however, the patient states he "fall all the time". given this, along with his extensive co- morbidities, the patient is a poor candidate for intervention with long-term duel antiplatelet therapy. Recommend Maximal medical therapy with BB, and statin, as well as additional antianginals as blood pressure tolerates. echo pending. Patient is aspirin allergic 2. DM type II - management per primary 3. CAD/CHF - check echo. as above 4. Hyperlipidemia - high intensity statin 5. PVD (s/p left arm amputation) - high intensity statin. 6. Hypertension - maximize medical therapy 7. ESRD on hemodialysis - per nephrology Subjective Date of service: 08/26/18 Interval history: No acute events. Resting comfortably. no chest pain or SOB. Objective Vital Signs Temp Pulse Pulse Resp BP Pulse Ox Pulse Ox 08/26/18 08:50 87 157/124 08/26/18 08:49 87 157/124 08/26/18 08:33 97.9 F 86 16 157/124 99 08/26/18 04:45 83 08/26/18 03:48 97.8 F 46 L 18 150/106 99 08/25/18 23:18 97.7 F 67 18 133/98 100 08/25/18 21:55 100 08/25/18 20:04 97.2 F L 80 16 135/102 97 08/25/18 19:15 75 08/25/18 18:04 97.9 F 72 18 161/116 100 08/25/18 17:15 97.9 F 78 16 164/117 08/25/18 16:38 77 164/129 08/25/18 16:32 77 184/120 08/25/18 16:30 77 164/129 08/25/18 16:15 78 170/126 08/25/18 16:00 88 172/124 08/25/18 15:45 77 162/115 08/25/18 15:30 76 151/118 08/25/18 15:15 84 153/114 08/25/18 15:00 97.8 F 80 16 151/121 100 08/25/18 12:32 97.7 F 98 H 18 160/127 100 08/25/18 12:10 96 H 94 08/25/18 11:12 20 08/25/18 10:30 117 H 23 159/122 100 08/25/18 10:16 120 H 21 166/129 97 08/25/18 10:10 122 H 166/128 08/25/18 10:00 113 H 25 H 159/122 08/25/18 09:46 120 H 14 159/122 99 08/25/18 09:30 107 H 23 170/118 100 08/25/18 09:16 110 H 22 171/128 98 08/25/18 09:00 110 H 25 H 181/131 100 08/25/18 08:46 100 H 21 171/129 99 - Physical Examination HEENT: Positive: PERRL, EOMI Neck: Positive: neck supple, trachea midline Neuro: Positive: Grossly Intact Abdomen: Positive: Unremarkable Extremities: Present: normal. Absent: edema - Labs and Meds CBC 08/26/18 Range/Units 05:18 WBC 3.3 L (4.5-11.0) K/mm3 RBC 3.19 L (3.65-5.03) M/mm3 Hgb 10.6 L (11.8-15.2) gm/dl Hct 32.5 L (35.5-45.6) % Plt Count 90 L (140-440) K/mm3 Lymph # 0.8 L (1.2-5.4) K/mm3 Orange # 0.4 (0.0-0.8) K/mm3 Eos # 0.0 (0.0-0.4) K/mm3 Baso # 0.0 (0.0-0.1) K/mm3 Comprehensive Metabolic Panel 08/26/18 Range/Units 05:18 Sodium 141 (137-145) mmol/L Potassium 4.3 (3.6-5.0) mmol/L Chloride 102.9 (98-107) mmol/L Carbon Dioxide 28 (22-30) mmol/L BUN 28 H (9-20) mg/dL Creatinine 3.5 H (0.8-1.5) mg/dL Glucose 119 H (75-100) mg/dL Calcium 8.6 (8.4-10.2) mg/dL
[2018-08-26] MEDS ORDERED: NORVASC PO SCH ×2 (10:00→12:11)
[2018-08-26] MEDS: COZAAR PO SCH (10:34)
[2018-08-26] MEDS: PEPCID PO SCH ×2 (10:36→22:11)
[2018-08-26] MEDS: IMDUR PO SCH (10:36)
[2018-08-26] MEDS: SODIUM CHLORIDE FLUSH SYRINGE 10 ML IV SCH ×2 (10:37→22:13)
[2018-08-26] MEDS: PROzac PO SCH (10:37)
--- NOTE | 2018-08-26 11:28 | Progress Note ---
Assessment and Plan Assessment and plan: Chest pain. Continue beta jett and statin. Patient had an LHC 2017 showing moderate to severe calcification in the left main with minimal irregularities. LAD showed a long 50-70% stenosis of the proximal segment. LCx and RCA were angiographically normal. Cardiology consulted and recommends repeat LHC with IFR of the LAD. However, patient reportedly has multiple falls and extensive comorbidities. Therefore cardiology feels the patient is a poor candidate for intervention with long-term dual antiplatelet therapy. Follow-up echocardiogram. ? Pericarditis ? Costochondritis--given that the patient's pain is associated with rotational movement. Diabetes mellitus type 2. Continue Accu-Cheks Scheduled insulin. Hyperlipidemia. Continue statins. Peripheral vascular disease. Continue statins Hypertension. Continue antihypertensive medications. ESRD. Continue hemodialysis per nephrology. History Interval history: No new issues overnight. Patient complained of chest pain while in echocardiogram procedure today. Patient reports pain was associated with movement from a rotational perspective and not exertional. Pain is reproducible with palpation. Hospitalist Physical - Constitutional Vitals: Temp Pulse Resp BP Pulse Ox 97.9 F 83 16 157/112 99 08/26/18 08:33 08/26/18 10:36 08/26/18 08:33 08/26/18 10:36 08/26/18 08:33 General appearance: Present: no acute distress - EENT Eyes: Present: PERRL, EOM intact ENT: hearing intact, clear oral mucosa, dentition normal - Neck Neck: Present: supple, normal ROM - Respiratory Respiratory effort: normal Respiratory: bilateral: CTA - Cardiovascular Rhythm: regular Heart Sounds: Present: S1 & S2. Absent: gallop, rub - Extremities Extremities: no ischemia, No edema, Full ROM - Abdominal General gastrointestinal: soft, non-tender, non-distended, normal bowel sounds - Integumentary Integumentary: Present: clear, warm, dry - Neurologic Neurologic: CNII-XII intact, moves all extremities Results - Labs CBC & Chem 7: 08/26/18 05:18 08/26/18 05:18 Labs: Laboratory Last Values WBC 3.3 K/mm3 (4.5-11.0) L 08/26/18 05:18 RBC 3.19 M/mm3 (3.65-5.03) L 08/26/18 05:18 Hgb 10.6 gm/dl (11.8-15.2) L 08/26/18 05:18 Hct 32.5 % (35.5-45.6) L 08/26/18 05:18 MCV 102 fl (84-94) H 08/26/18 05:18 MCH 33 pg (28-32) H 08/26/18 05:18 MCHC 33 % (32-34) 08/26/18 05:18 RDW 22.0 % (13.2-15.2) H 08/26/18 05:18 Plt Count 90 K/mm3 (140-440) L 08/26/18 05:18 Lymph % (Auto) 22.6 % (13.4-35.0) 08/26/18 05:18 Waldo % (Auto) 10.7 % (0.0-7.3) H 08/26/18 05:18 Eos % (Auto) 0.9 % (0.0-4.3) 08/26/18 05:18 Baso % (Auto) 0.8 % (0.0-1.8) 08/26/18 05:18 Lymph # 0.8 K/mm3 (1.2-5.4) L 08/26/18 05:18 Waldo # 0.4 K/mm3 (0.0-0.8) 08/26/18 05:18 Eos # 0.0 K/mm3 (0.0-0.4) 08/26/18 05:18 Baso # 0.0 K/mm3 (0.0-0.1) 08/26/18 05:18 Seg Neutrophils % 65.0 % (40.0-70.0) 08/26/18 05:18 Seg Neutrophils # 2.2 K/mm3 (1.8-7.7) 08/26/18 05:18 Sodium 141 mmol/L (137-145) 08/26/18 05:18 Potassium 4.3 mmol/L (3.6-5.0) 08/26/18 05:18 Chloride 102.9 mmol/L (98-107) 08/26/18 05:18 Carbon Dioxide 28 mmol/L (22-30) 08/26/18 05:18 Anion Gap 14 mmol/L 08/26/18 05:18 BUN 28 mg/dL (9-20) H 08/26/18 05:18 Creatinine 3.5 mg/dL (0.8-1.5) H 08/26/18 05:18 Estimated GFR 21 ml/min 08/26/18 05:18 BUN/Creatinine Ratio 8 % 08/26/18 05:18 Glucose 119 mg/dL (75-100) H 08/26/18 05:18 POC Glucose 107 (70-105) H 08/26/18 07:36 Calcium 8.6 mg/dL (8.4-10.2) 08/26/18 05:18 Total Bilirubin 0.40 mg/dL (0.1-1.2) 08/25/18 01:07 AST 27 units/L (5-40) 08/25/18 01:07 ALT 19 units/L (7-56) 08/25/18 01:07 Alkaline Phosphatase 110 units/L (35-129) 08/25/18 01:07 Troponin T 0.210 ng/mL (0.00-0.029) H* 08/25/18 01:07 Total Protein 6.1 g/dL (6.3-8.2) L 08/25/18 01:07 Albumin 2.4 g/dL (3.9-5) L 08/25/18 01:07 Albumin/Globulin Ratio 0.6 % 08/25/18 01:07
[2018-08-26] MEDS: HEMOCYTE PLUS PO SCH (13:45)
[2018-08-26] MEDS: APRESOLINE PO SCH ×2 (13:45→22:11)
[2018-08-27] MEDS: PERCOCET 5/325 PO PRN ×3 (01:17→21:15)
[2018-08-27] MEDS: APRESOLINE PO SCH ×3 (06:12→21:16)
[2018-08-27] MEDS: TOPROL XL PO SCH (08:10)
[2018-08-27] MEDS: HumuLIN R SUB-Q SCH ×4 (08:43→21:30)
[2018-08-27] MEDS: HEMOCYTE PLUS PO SCH (09:35)
[2018-08-27] MEDS: PEPCID PO SCH ×2 (09:35→21:16)
[2018-08-27] MEDS: IMDUR PO SCH (09:36)
[2018-08-27] MEDS: COZAAR PO SCH (09:36)
[2018-08-27] MEDS: PROzac PO SCH (09:36)
[2018-08-27] MEDS: NORVASC PO SCH (09:37)
[2018-08-27] MEDS: SODIUM CHLORIDE FLUSH SYRINGE 10 ML IV SCH ×2 (09:38→21:16)
--- NOTE | 2018-08-27 09:43 | Progress Note ---
Assessment and Plan 1. ESRD: Continue hemodialysis three times a week, TTS schedule. 2. Chest pain: Followed by cards. 3. A.fib with RVR: SR now. 4. DM type 2. 5. Chronic pleural effusion. 6. Anemia: Epogen if needed. 7. PAD. Subjective Date of service: 08/27/18 Interval history: Patient was examined at the bedside. Objective - Vital Signs Vital signs: Vital Signs - 12hr 08/26/18 08/27/18 08/27/18 22:11 00:13 03:44 Temperature 98.6 F 98.4 F Pulse Rate 74 65 81 Respiratory 17 18 Rate Blood Pressure 114/86 117/82 134/99 O2 Sat by Pulse 100 100 Oximetry 08/27/18 08/27/18 08/27/18 04:00 06:12 08:10 Temperature Pulse Rate 74 81 81 Respiratory Rate Blood Pressure 134/99 134/99 O2 Sat by Pulse Oximetry 08/27/18 08/27/18 08/27/18 08:38 09:36 09:37 Temperature 97.3 F L Pulse Rate 71 71 71 Respiratory 14 Rate Blood Pressure 137/94 137/94 137/94 O2 Sat by Pulse 100 Oximetry - General Appearance General appearance: well-developed, frail, other (not in distress, right IJ tunnel catheter) EENT: ATNC, PERRL, hearing intact, vision intact Neck: supple Respiratory: Present: Clear to Ascultation Cardiology: regular, S1S2, no murmurs Gastrointestinal: normoactive bowel sounds, no tenderness, no distended Integumentary: warm and dry Neurologic: no focal deficit, no asterixis, alert and oriented x3 Musculoskeletal: other (left below elbow amputation) - Lab 08/26/18 05:18 08/26/18 05:18 Most recent lab results Calcium 8.6 mg/dL (8.4-10.2) 08/26/18 05:18 Medications & Allergies - Medications Allergies/Adverse Reactions: Allergies aspirin Allergy (Verified 03/16/17 01:25) Unknown stomach cramps pork derived (porcine) Allergy (Verified 03/16/17 01:27) Rash venom-honey bee [bee venom (honey bee)] Allergy (Verified 03/16/17 01:27) Anaphylaxis Pork/Porcine Containing Products Adverse Reaction (Severe, Verified 02/13/17 09:31) Nausea,VOMITING Home Medications: Home Medications Medication Instructions Recorded Confirmed Last Taken Type Acetaminophen [Acetaminophen TAB] 650 mg PO Q4H PRN tablet 05/05/18 08/26/18 Unknown Rx FLUoxetine HCL [Fluoxetine HCl] 40 mg PO QDAY #30 capsule 05/05/18 08/26/18 Unknown Rx Famotidine [Pepcid] 10 mg PO BID #15 tablet 05/05/18 08/26/18 Unknown Rx Fe Fumarate/FA/Mv, Min Comb#15 1 each PO QDAY #30 capsule 05/05/18 08/26/18 Unknown Rx [Hemocyte Plus] Losartan [Cozaar] 100 mg PO QDAY 30 Days tablet 05/05/18 08/26/18 Unknown Rx Metoprolol Xl [Metoprolol 100 mg PO QDAY #30 tablet 05/05/18 08/26/18 Unknown Rx SUCCINATE ER TAB] diphenhydrAMINE [Benadryl CAP] 25 mg PO Q6H PRN #15 capsule 05/05/18 08/26/18 Unknown Rx oxyCODONE /ACETAMINOPHEN [Percocet 1 tab PO Q6H PRN #20 tablet 05/05/18 08/26/18 Unknown Rx 5/325 mg] Active Medications: Generic Name Dose Route Start Last Admin Trade Name Freq PRN Reason Stop Dose Admin Acetaminophen 650 mg 08/25/18 03:58 Tylenol PO Q4H PRN Pain MILD(1-3)/Fever >100.5/DOUGLAS Amlodipine Besylate 10 mg 08/27/18 10:00 08/27/18 09:37 Norvasc PO 10 mg DAILY BEAN Administration Atorvastatin Calcium 40 mg 08/25/18 22:00 08/26/18 22:12 Lipitor PO 40 mg QHS BEAN Administration Clonidine HCl 0.1 mg 08/25/18 16:09 08/26/18 08:50 Catapres PO 0.1 mg Q4H PRN Administration Chest Pain Diphenhydramine HCl 25 mg 08/25/18 06:57 08/26/18 06:15 Benadryl PO 25 mg Q6H PRN Administration Itching Epoetin Prashant 10,000 unit 08/25/18 10:27 Procrit SUB-Q KATERYNA PRN hemodialysis Famotidine 10 mg 08/25/18 10:00 08/27/18 09:35 Pepcid PO 10 mg BID BEAN Administration Fluoxetine HCl 40 mg 08/25/18 10:00 08/27/18 09:36 Prozac PO 40 mg QDAY BEAN Administration Hydralazine HCl 50 mg 08/26/18 14:00 08/27/18 06:12 Apresoline PO 50 mg Q8HR BEAN Administration Sodium Chloride 100 mls @ 999 mls/hr 08/25/18 10:27 Nacl 0.9% IV KATERYNA PRN Hypotension Insulin Human Regular 0 units 08/25/18 07:30 08/27/18 08:43 Humulin R SUB-Q Not Given ACHS [facility] Protocol Isosorbide Mononitrate 30 mg 08/26/18 10:00 08/27/18 09:36 Imdur PO 30 mg QDAY BEAN Administration Losartan Potassium 100 mg 08/25/18 10:00 08/27/18 09:36 Cozaar PO 100 mg QDAY BEAN Administration Magnesium Hydroxide 30 ml 08/25/18 03:58 08/27/18 09:37 Milk Of Magnesia PO 30 ml Q4H PRN Administration Constipation Metoprolol Succinate 100 mg 08/25/18 08:00 08/27/18 08:10 Toprol Xl PO 100 mg QDAY@0800 BEAN Administration Multivitamins/Iron 1 each 08/25/18 10:00 08/27/18 09:35 Hemocyte Plus PO 1 each QDAY BEAN Administration Ondansetron HCl 4 mg 08/25/18 03:58 Zofran IV Q8H PRN Nausea And Vomiting Oxycodone/Acetaminophen 1 tab 08/25/18 03:58 08/27/18 01:17 Percocet 5/325 PO 1 tab Q6H PRN Administration Pain, Moderate (4-6) Sodium Chloride 10 ml 08/25/18 10:00 08/27/18 09:38 Sodium Chloride Flush Syringe 10 Ml IV 10 ml BID BEAN Administration Sodium Chloride 10 ml 08/25/18 03:58 Sodium Chloride Flush Syringe 10 Ml IV PRN PRN LINE FLUSH
--- NOTE | 2018-08-27 11:11 | Progress Note ---
Assessment and Plan Assessment and plan: Chest pain. Continue beta jett and statin. Patient had an LHC 2017 showing moderate to severe calcification in the left main with minimal irregularities. LAD showed a long 50-70% stenosis of the proximal segment. LCx and RCA were angiographically normal. Cardiology consulted and recommends repeat LHC with IFR of the LAD. However, patient reportedly has history of multiple falls and extensive comorbidities. Therefore cardiology feels the patient is a poor candidate for intervention with long-term dual antiplatelet therapy. Echocardiogram reveals severe four-chamber dilated cardiomyopathy with moderate concentric left ventricular hypertrophy and an EF of 10-15%. ? Costochondritis--patient's pain is associated with rotational movement. Dilated cardiomyopathy. Patient with severe four-chamber dilated cardiomyopathy. Left ventricle is moderate to severely dilated. Acute systolic heart failure. EF 10-15%. Diabetes mellitus type 2. Continue Accu-Cheks Scheduled insulin. Hyperlipidemia. Continue statins. Peripheral vascular disease. Continue statins Hypertension. Continue antihypertensive medications. ESRD. Continue hemodialysis per nephrology. History Interval history: No new issues overnight. Patient complained of chest pain while in echocardiogram procedure today. Patient reports pain was associated with movement from a rotational perspective and not exertional. Pain is reproducible with palpation. Hospitalist Physical - Constitutional Vitals: Temp Pulse Resp BP Pulse Ox 97.3 F L 71 14 137/94 100 08/27/18 08:38 08/27/18 09:37 08/27/18 08:38 08/27/18 09:37 08/27/18 08:38 General appearance: Present: no acute distress - EENT Eyes: Present: PERRL, EOM intact ENT: hearing intact, clear oral mucosa, dentition normal - Neck Neck: Present: supple, normal ROM - Respiratory Respiratory effort: normal Respiratory: bilateral: CTA - Cardiovascular Rhythm: regular Heart Sounds: Present: S1 & S2. Absent: gallop, rub - Extremities Extremities: no ischemia, No edema, Full ROM - Abdominal General gastrointestinal: soft, non-tender, non-distended, normal bowel sounds - Integumentary Integumentary: Present: clear, warm, dry - Neurologic Neurologic: CNII-XII intact, moves all extremities Results - Labs CBC & Chem 7: 08/26/18 05:18 08/26/18 05:18 Labs: Laboratory Last Values WBC 3.3 K/mm3 (4.5-11.0) L 08/26/18 05:18 RBC 3.19 M/mm3 (3.65-5.03) L 08/26/18 05:18 Hgb 10.6 gm/dl (11.8-15.2) L 08/26/18 05:18 Hct 32.5 % (35.5-45.6) L 08/26/18 05:18 MCV 102 fl (84-94) H 08/26/18 05:18 MCH 33 pg (28-32) H 08/26/18 05:18 MCHC 33 % (32-34) 08/26/18 05:18 RDW 22.0 % (13.2-15.2) H 08/26/18 05:18 Plt Count 90 K/mm3 (140-440) L 08/26/18 05:18 Lymph % (Auto) 22.6 % (13.4-35.0) 08/26/18 05:18 Story % (Auto) 10.7 % (0.0-7.3) H 08/26/18 05:18 Eos % (Auto) 0.9 % (0.0-4.3) 08/26/18 05:18 Baso % (Auto) 0.8 % (0.0-1.8) 08/26/18 05:18 Lymph # 0.8 K/mm3 (1.2-5.4) L 08/26/18 05:18 Story # 0.4 K/mm3 (0.0-0.8) 08/26/18 05:18 Eos # 0.0 K/mm3 (0.0-0.4) 08/26/18 05:18 Baso # 0.0 K/mm3 (0.0-0.1) 08/26/18 05:18 Seg Neutrophils % 65.0 % (40.0-70.0) 08/26/18 05:18 Seg Neutrophils # 2.2 K/mm3 (1.8-7.7) 08/26/18 05:18 Sodium 141 mmol/L (137-145) 08/26/18 05:18 Potassium 4.3 mmol/L (3.6-5.0) 08/26/18 05:18 Chloride 102.9 mmol/L (98-107) 08/26/18 05:18 Carbon Dioxide 28 mmol/L (22-30) 08/26/18 05:18 Anion Gap 14 mmol/L 08/26/18 05:18 BUN 28 mg/dL (9-20) H 08/26/18 05:18 Creatinine 3.5 mg/dL (0.8-1.5) H 08/26/18 05:18 Estimated GFR 21 ml/min 08/26/18 05:18 BUN/Creatinine Ratio 8 % 08/26/18 05:18 Glucose 119 mg/dL (75-100) H 08/26/18 05:18 POC Glucose 90 (70-105) 08/26/18 16:51 Calcium 8.6 mg/dL (8.4-10.2) 08/26/18 05:18 Total Bilirubin 0.40 mg/dL (0.1-1.2) 08/25/18 01:07 AST 27 units/L (5-40) 08/25/18 01:07 ALT 19 units/L (7-56) 08/25/18 01:07 Alkaline Phosphatase 110 units/L (35-129) 08/25/18 01:07 Troponin T 0.210 ng/mL (0.00-0.029) H* 08/25/18 01:07 Total Protein 6.1 g/dL (6.3-8.2) L 08/25/18 01:07 Albumin 2.4 g/dL (3.9-5) L 08/25/18 01:07 Albumin/Globulin Ratio 0.6 % 08/25/18 01:07
--- NOTE | 2018-08-27 11:44 | Progress Note ---
Assessment and Plan Chest pain, managed medically ASA allergy DM type II PVD s/p left arm amputation Hypertension ESRD on hemodialysis Thrombocytopenia, chronic Nonischemic CMP, EF 25-30% Non-obstructive CAD [facility] 01/2017 revealed non-obstructive, single vessel disease of the proximal LAD recommended for medical therapy. Permanent Atrial fibrillation, rate control off coumadin and aspirin due to recent history of GIB 04/09/2018 Subjective Date of service: 08/27/18 Interval history: Patient complains of chest pain. Objective Vital Signs Temp Pulse Pulse Pulse Resp BP BP 08/27/18 10:00 71 71 19 08/27/18 09:37 71 137/94 08/27/18 09:36 71 137/94 08/27/18 08:38 97.3 F L 71 14 137/94 08/27/18 08:10 81 134/99 08/27/18 06:12 81 134/99 08/27/18 04:00 74 08/27/18 03:44 98.4 F 81 18 134/99 08/27/18 00:13 98.6 F 65 17 117/82 08/26/18 22:11 74 114/86 08/26/18 21:40 08/26/18 20:00 76 08/26/18 17:06 98.2 F 69 19 133/95 08/26/18 16:46 97.6 F 62 14 133/95 08/26/18 13:45 75 150/112 08/26/18 13:29 73 150/112 08/26/18 12:00 77 08/26/18 11:49 97.7 F 78 14 148/109 Pulse Ox 08/27/18 10:00 97 08/27/18 09:37 08/27/18 09:36 08/27/18 08:38 100 08/27/18 08:10 08/27/18 06:12 08/27/18 04:00 08/27/18 03:44 100 08/27/18 00:13 100 08/26/18 22:11 08/26/18 21:40 97 08/26/18 20:00 08/26/18 17:06 98 08/26/18 16:46 93 08/26/18 13:45 08/26/18 13:29 100 08/26/18 12:00 03/10/19 11:49 100 - Physical Examination General: No Apparent Distress HEENT: Positive: PERRL Neck: Positive: trachea midline Cardiac: Positive: Reg Rate and Rhythm Lungs: Positive: Decreased Breath Sounds Neuro: Positive: Grossly Intact, Weakness Extremities: Absent: edema
[2018-08-28] MEDS: TYLENOL PO PRN (00:51)
[2018-08-28] MEDS: PERCOCET 5/325 PO PRN (03:03)
[2018-08-28] MEDS: APRESOLINE PO SCH ×3 (05:26→22:48)
[2018-08-28] MEDS: MORPHINE IV PRN ×2 (05:30→14:42)
[2018-08-28 07:13] LABS: Basophils % (Auto) 0.6 % (0.0-1.8); Hematocrit 31.1 % (35.5-45.6); Hemoglobin 10.1 gm/dl (11.8-15.2); Lymphocytes # (Auto) 0.7 K/mm3 (1.2-5.4); Mean Corpuscular HGB Conc 33 % (32-34); Mean Corpuscular Volume 102 fl (84-94); Monocytes # (Auto) 0.4 K/mm3 (0.0-0.8); Monocytes % (Auto) 8.6 % (0.0-7.3); Red Blood Count 3.07 M/mm3 (3.65-5.03)
[2018-08-28 07:17] LABS: Platelet Count 94 K/mm3 (140-440); Red Cell Distribution Width 21.9 % (13.2-15.2)
[2018-08-28 07:20] LABS: Creatine Kinase MB 3.1 ng/mL (0.0-4.0)
[2018-08-28 07:26] LABS: Calcium 9.2 mg/dL (8.4-10.2)
[2018-08-28 08:38] LABS: Chol/HDL Ratio 1.63 %
[2018-08-28] MEDS: HumuLIN R SUB-Q SCH ×4 (08:53→22:48)
--- NOTE | 2018-08-28 09:48 | Progress Note ---
Assessment and Plan 1. ESRD: Continue hemodialysis three times a week, TTS schedule. 2. Chest pain: Followed by cards. 3. A.fib with RVR: SR now. 4. DM type 2. 5. Chronic pleural effusion. 6. Anemia: Epogen if needed. 7. PAD. Subjective Date of service: 08/28/18 Interval history: Patient was examined while on HD. Objective - Vital Signs Vital signs: Vital Signs - 12hr 08/28/18 08/28/18 08/28/18 00:05 03:12 04:35 Temperature 98.2 F 97.4 F L Pulse Rate 69 66 65 Respiratory 18 14 20 Rate Respiratory 20 Rate [Left Arm] Blood Pressure 123/91 153/111 Blood Pressure 132/97 [Right] O2 Sat by Pulse 100 100 100 Oximetry 08/28/18 08/28/18 05:26 08:33 Temperature 97.5 F L Pulse Rate 83 66 Respiratory 18 Rate Respiratory Rate [Left Arm] Blood Pressure 146/108 140/108 Blood Pressure [Right] O2 Sat by Pulse 97 Oximetry - General Appearance General appearance: well-developed, appears stated age, other (not in distress, right IJ tunnel catheter) EENT: ATNC, PERRL Neck: supple Respiratory: Present: Clear to Ascultation Cardiology: regular, S1S2, no murmurs Gastrointestinal: normoactive bowel sounds, no tenderness, no distended Integumentary: other (right thumb necrotic area ) Neurologic: no focal deficit, no asterixis, alert and oriented x3 Musculoskeletal: other (left below elbow amputation) - Lab 08/28/18 06:24 08/28/18 06:24 Most recent lab results Calcium 9.2 mg/dL (8.4-10.2) 08/28/18 06:24 Medications & Allergies - Medications Allergies/Adverse Reactions: Allergies aspirin Allergy (Verified 03/16/17 01:25) Unknown stomach cramps pork derived (porcine) Allergy (Verified 03/16/17 01:27) Rash venom-honey bee [bee venom (honey bee)] Allergy (Verified 03/16/17 01:27) Anaphylaxis Pork/Porcine Containing Products Adverse Reaction (Severe, Verified 02/13/17 09:31) Nausea,VOMITING Home Medications: Home Medications Medication Instructions Recorded Confirmed Last Taken Type Acetaminophen [Acetaminophen TAB] 650 mg PO Q4H PRN tablet 05/05/18 08/26/18 Unknown Rx FLUoxetine HCL [Fluoxetine HCl] 40 mg PO QDAY #30 capsule 05/05/18 08/26/18 Unknown Rx Famotidine [Pepcid] 10 mg PO BID #15 tablet 05/05/18 08/26/18 Unknown Rx Fe Fumarate/FA/Mv, Min Comb#15 1 each PO QDAY #30 capsule 05/05/18 08/26/18 Unknown Rx [Hemocyte Plus] Losartan [Cozaar] 100 mg PO QDAY 30 Days tablet 05/05/18 08/26/18 Unknown Rx Metoprolol Xl [Metoprolol 100 mg PO QDAY #30 tablet 05/05/18 08/26/18 Unknown Rx SUCCINATE ER TAB] diphenhydrAMINE [Benadryl CAP] 25 mg PO Q6H PRN #15 capsule 05/05/18 08/26/18 Unknown Rx oxyCODONE /ACETAMINOPHEN [Percocet 1 tab PO Q6H PRN #20 tablet 05/05/18 08/26/18 Unknown Rx 5/325 mg] Active Medications: Generic Name Dose Route Start Last Admin Trade Name Freq PRN Reason Stop Dose Admin Acetaminophen 650 mg 08/25/18 03:58 08/28/18 00:51 Tylenol PO 650 mg Q4H PRN Administration Pain MILD(1-3)/Fever >100.5/DOUGLAS Amlodipine Besylate 10 mg 08/27/18 10:00 08/27/18 09:37 Norvasc PO 10 mg DAILY BEAN Administration Atorvastatin Calcium 40 mg 08/25/18 22:00 08/27/18 21:15 Lipitor PO 40 mg QHS BEAN Administration Clonidine HCl 0.1 mg 08/25/18 16:09 08/26/18 08:50 Catapres PO 0.1 mg Q4H PRN Administration Chest Pain Diphenhydramine HCl 25 mg 08/25/18 06:57 08/26/18 06:15 Benadryl PO 25 mg Q6H PRN Administration Itching Epoetin Prashant 10,000 unit 08/25/18 10:27 Procrit SUB-Q KATERYNA PRN hemodialysis Famotidine 10 mg 08/25/18 10:00 08/27/18 21:16 Pepcid PO 10 mg BID BAEN Administration Fluoxetine HCl 40 mg 08/25/18 10:00 08/27/18 09:36 Prozac PO 40 mg QDAY BEAN Administration Hydralazine HCl 50 mg 08/26/18 14:00 08/28/18 05:26 Apresoline PO 50 mg Q8HR BEAN Administration Sodium Chloride 100 mls @ 999 mls/hr 08/25/18 10:27 Nacl 0.9% IV KATERYNA PRN Hypotension Insulin Human Regular 0 units 08/25/18 07:30 08/28/18 08:53 Humulin R SUB-Q [facility] Isosorbide Mononitrate 30 mg 08/26/18 10:00 08/27/18 09:36 Imdur PO 30 mg QDAY BEAN Administration Losartan Potassium 100 mg 08/25/18 10:00 08/27/18 09:36 Cozaar PO 100 mg QDAY BEAN Administration Magnesium Hydroxide 30 ml 08/25/18 03:58 08/27/18 09:37 Milk Of Magnesia PO 30 ml Q4H PRN Administration Constipation Metoprolol Succinate 100 mg 08/25/18 08:00 08/27/18 08:10 Toprol Xl PO 100 mg QDAY@0800 BEAN Administration Morphine Sulfate 2 mg 08/28/18 05:20 08/28/18 05:30 Morphine IV 2 mg Q4H PRN Administration Pain, Moderate (4-6) Multivitamins/Iron 1 each 08/25/18 10:00 08/27/18 09:35 Hemocyte Plus PO 1 each QDAY BEAN Administration Ondansetron HCl 4 mg 08/25/18 03:58 Zofran IV Q8H PRN Nausea And Vomiting Sodium Chloride 10 ml 08/25/18 10:00 08/27/18 21:16 Sodium Chloride Flush Syringe 10 Ml IV 10 ml BID BEAN Administration Sodium Chloride 10 ml 08/25/18 03:58 Sodium Chloride Flush Syringe 10 Ml IV PRN PRN LINE FLUSH
[2018-08-28] MEDS ORDERED: NACL 0.9% 100 ML IV PRN (11:00)
--- NOTE | 2018-08-28 12:08 | Progress Note ---
Assessment and Plan Chest pain, managed medically ASA allergy DM type II PVD s/p left arm amputation Hypertension ESRD on hemodialysis Thrombocytopenia, chronic Hx of Nonischemic CMP EF 15-20% by echo this admission. Non-obstructive CAD [facility] 01/2017 revealed non-obstructive, single vessel disease of the proximal LAD recommended for medical therapy. Permanent Atrial fibrillation, rate control off coumadin and aspirin due to recent history of GIB 04/09/2018 Recommend; Due to his multiple severe comorbidities, the patient has previously been determ ined a poor candidate for further aggressive cardiac invasive management. Continue medical therapy for chronic atrial fibrillation, dilated cardiomyopathy and non-obstructive CAD. Subjective Date of service: 08/28/18 Interval history: No interval changes. No distress noted. For dialysis today. Objective Vital Signs Temp Pulse Resp Resp BP BP Pulse Ox 08/28/18 10:30 79 140/85 08/28/18 10:20 98.0 F 70 18 197/103 08/28/18 08:33 97.5 F L 66 18 140/108 97 08/28/18 05:26 83 146/108 08/28/18 04:35 65 20 20 132/97 100 08/28/18 03:12 97.4 F L 66 14 153/111 100 08/28/18 00:05 98.2 F 69 18 123/91 100 08/27/18 20:06 100 08/27/18 20:04 97.4 F L 58 L 16 124/75 99 08/27/18 17:49 97.5 F L 68 16 144/62 99 08/27/18 16:31 60 105/78 08/27/18 14:10 60 105/78 98 08/27/18 12:35 97.4 F L 55 L 14 140/95 100 - Physical Examination General: No Apparent Distress HEENT: Positive: PERRL Neck: Positive: trachea midline Cardiac: Positive: irregularly irregular Lungs: Positive: Decreased Breath Sounds Neuro: Positive: Weakness Extremities: Absent: edema - Labs and Meds Cardiac Enzymes 08/28/18 Range/Units 06:24 CK-MB (CK-2) 3.1 (0.0-4.0) ng/mL Lipids 08/28/18 Range/Units 06:24 Triglycerides 49 (2-149) mg/dL Cholesterol 72 (50-199) mg/dL HDL Cholesterol 44 (40-59) mg/dL Cholesterol/HDL Ratio 1.63 % CBC 08/28/18 Range/Units 06:24 WBC 4.3 L (4.5-11.0) K/mm3 RBC 3.07 L (3.65-5.03) M/mm3 Hgb 10.1 L (11.8-15.2) gm/dl Hct 31.1 L (35.5-45.6) % Plt Count 94 L (140-440) K/mm3 Lymph # 0.7 L (1.2-5.4) K/mm3 [place] # 0.4 (0.0-0.8) K/mm3 Eos # 0.0 (0.0-0.4) K/mm3 Baso # 0.0 (0.0-0.1) K/mm3 Comprehensive Metabolic Panel 08/28/18 Range/Units 06:24 Sodium 134 L (137-145) mmol/L Potassium 5.2 H D (3.6-5.0) mmol/L Chloride 99.3 (98-107) mmol/L Carbon Dioxide 25 (22-30) mmol/L BUN 45 H (9-20) mg/dL Creatinine 5.5 H D (0.8-1.5) mg/dL Glucose 128 H (75-100) mg/dL Calcium 9.2 (8.4-10.2) mg/dL
[2018-08-28] MEDS: PROCRIT SUB-Q PRN (13:15)
[2018-08-28] MEDS ORDERED: NACL 0.9 (PRIMING MACHINE ONLY DIALYSIS) MC ONE (13:24)
[2018-08-28] MEDS: NORVASC PO SCH (14:42)
[2018-08-28] MEDS: TOPROL XL PO SCH (14:42)
[2018-08-28] MEDS: IMDUR PO SCH (14:42)
[2018-08-28] MEDS: PEPCID PO SCH ×2 (14:42→22:48)
[2018-08-28] MEDS: SODIUM CHLORIDE FLUSH SYRINGE 10 ML IV SCH ×2 (14:43→22:48)
[2018-08-28] MEDS: PROzac PO SCH (14:43)
[2018-08-28] MEDS: COZAAR PO SCH (14:43)
[2018-08-28] MEDS: HEMOCYTE PLUS PO SCH (14:44)
--- NOTE | 2018-08-28 16:48 | Progress Note ---
Assessment and Plan Assessment and plan: Chest pain. Continue beta jett and statin. Patient had an LHC 2017 showing moderate to severe calcification in the left main with minimal irregularities. LAD showed a long 50-70% stenosis of the proximal segment. LCx and RCA were angiographically normal. Cardiology consulted and recommends repeat LHC with IFR of the LAD. However, patient reportedly has history of multiple falls and extensive comorbidities. Therefore cardiology feels the patient is a poor candidate for intervention with long-term dual antiplatelet therapy. Echocardiogram reveals severe four-chamber dilated cardiomyopathy with moderate concentric left ventricular hypertrophy and an EF of 10-15%. Elevated troponin. pain control. Dilated cardiomyopathy. Patient with severe four-chamber dilated cardiomyopathy. Left ventricle is moderate to severely dilated. Acute systolic heart failure. EF 10-15%. Diabetes mellitus type 2. Continue Accu-Cheks Scheduled insulin. Hyperlipidemia. Continue statins. Peripheral vascular disease. Continue statins. Right thumb tip darkish discoloration; will consult vascular. Hypertension. Continue antihypertensive medications. ESRD. Continue hemodialysis per nephrology. Patient is appropriate for hospice and have discussed with him and he wants to be explained more with hospice people and I put a hospice consult. History Interval history: Patient was seen and evaluated after he came back from dialysis, patient is complaining left-sided chest pain or radiation to the left arm, pain is worse at the amputee site. Hospitalist Physical - Physical exam Narrative exam: Not in cardiopulmonary distress. The patient is emaciated. Vital signs as documented. Head exam is unremarkable. No scleral icterus . Neck is without jugular venous distension, thyromegaly, or carotid bruits. Lungs are clear to auscultation. Cardiac exam reveals regular rate and Rhythm. Abdominal exam reveals normal bowel sounds, no masses, no organomegaly and no aortic enlargement. Extremities left arm amputee, no ulcer. dark discoloration of the the tip of the right thumb. SKIP MINER: Alert and oriented 3. No focal weakness. - Constitutional Vitals: Temp Pulse Resp BP Pulse Ox 98.0 F 61 18 160/90 97 08/28/18 13:30 08/28/18 13:30 08/28/18 13:30 08/28/18 13:30 08/28/18 08:33 General appearance: Present: no acute distress Results - Labs CBC & Chem 7: 08/28/18 06:24 08/28/18 06:24 Labs: Laboratory Last Values WBC 4.3 K/mm3 (4.5-11.0) L 08/28/18 06:24 RBC 3.07 M/mm3 (3.65-5.03) L 08/28/18 06:24 Hgb 10.1 gm/dl (11.8-15.2) L 08/28/18 06:24 Hct 31.1 % (35.5-45.6) L 08/28/18 06:24 MCV 102 fl (84-94) H 08/28/18 06:24 MCH 33 pg (28-32) H 08/28/18 06:24 MCHC 33 % (32-34) 08/28/18 06:24 RDW 21.9 % (13.2-15.2) H 08/28/18 06:24 Plt Count 94 K/mm3 (140-440) L 08/28/18 06:24 Lymph % (Auto) 17.0 % (13.4-35.0) 08/28/18 06:24 M[place]racken % (Auto) 8.6 % (0.0-7.3) H 08/28/18 06:24 Eos % (Auto) 1.0 % (0.0-4.3) 08/28/18 06:24 Baso % (Auto) 0.6 % (0.0-1.8) 08/28/18 06:24 Lymph # 0.7 K/mm3 (1.2-5.4) L 08/28/18 06:24 [place] # 0.4 K/mm3 (0.0-0.8) 08/28/18 06:24 Eos # 0.0 K/mm3 (0.0-0.4) 08/28/18 06:24 Baso # 0.0 K/mm3 (0.0-0.1) 08/28/18 06:24 Seg Neutrophils % 72.8 % (40.0-70.0) H 08/28/18 06:24 Seg Neutrophils # 3.1 K/mm3 (1.8-7.7) 08/28/18 06:24 Sodium 134 mmol/L (137-145) L 08/28/18 06:24 Potassium 5.2 mmol/L (3.6-5.0) H D 08/28/18 06:24 Chloride 99.3 mmol/L (98-107) 08/28/18 06:24 Carbon Dioxide 25 mmol/L (22-30) 08/28/18 06:24 Anion Gap 15 mmol/L 08/28/18 06:24 BUN 45 mg/dL (9-20) H 08/28/18 06:24 Creatinine 5.5 mg/dL (0.8-1.5) H D 08/28/18 06:24 Estimated GFR 13 ml/min 08/28/18 06:24 BUN/Creatinine Ratio 8 % 08/28/18 06:24 Glucose 128 mg/dL (75-100) H 08/28/18 06:24 POC Glucose 90 (70-105) 08/26/18 16:51 Calcium 9.2 mg/dL (8.4-10.2) 08/28/18 06:24 Total Bilirubin 0.40 mg/dL (0.1-1.2) 08/25/18 01:07 AST 27 units/L (5-40) 08/25/18 01:07 ALT 19 units/L (7-56) 08/25/18 01:07 Alkaline Phosphatase 110 units/L (35-129) 08/25/18 01:07 Total Creatine Kinase 39 units/L (55-170) L 08/28/18 06:24 CK-MB (CK-2) 3.1 ng/mL (0.0-4.0) 08/28/18 06:24 CK-MB (CK-2) Rel Index 7.9 (0-4) H 08/28/18 06:24 Troponin T 0.191 ng/mL (0.00-0.029) H* 08/28/18 06:24 Total Protein 6.1 g/dL (6.3-8.2) L 08/25/18 01:07 Albumin 2.4 g/dL (3.9-5) L 08/25/18 01:07 Albumin/Globulin Ratio 0.6 % 08/25/18 01:07 Triglycerides 49 mg/dL (2-149) 08/28/18 06:24 Cholesterol 72 mg/dL (50-199) 08/28/18 06:24 LDL Cholesterol Direct 20 mg/dL (50-130) L 08/28/18 06:24 HDL Cholesterol 44 mg/dL (40-59) 08/28/18 06:24 Cholesterol/HDL Ratio 1.63 % 08/28/18 06:24 Nutrition/Malnutrition Assess - Dietary Evaluation Nutrition/Malnutrition Findings: Nutrition Notes Start: 08/27/18 16:14 Freq: Status: Active Protocol: Document 08/27/18 16:14 RM (Rec: 08/27/18 16:23 RM [id number]) Nutrition Notes Need for Assessment generated from: Low BMI Initial or Follow up Assessment Current Diagnosis Coronary Artery Disease, Diabetes,Hypertension, Hyperlipidemia Other Pertinent Diagnosis ESRD on HD Current Diet Renal Labs/Tests Reviewed Pertinent Medications Reviewed Height 6 ft 1 in Weight 53 kg [place] Body Weight (kg) 83.63 BMI 15.4 Subjective/Other Information Screened for low BMI. Pt stated that [employer] some days he would not eat at all and others he would eat 2 meals. Declined regular ONS d/t it causeing him diarrhea but requested double portions. Pt agreed to receiving double protein portions. Pt unsure of dry wt. Noted temporal wasting. Burn Absent Trauma Absent #1 Nutrition Diagnosis Malnutrition Etiology decreased appetite, ESRD on HD As Evidenced by Signs and Symptoms pt statement that [employer] some days he would not eat at all and other days he would eat 2 meals, pt BMI of 15.4, temporal wasting Is patient on ventilator? No Is Patient Ambulatory and/or Out of Bed No REE-([facility]-confined to bed) 1665.972 Kcal/Kg value to use for calculation 41 Approximate Energy Requirements Using 2173 kcal/Kg Calculation Used for Recommendations Kcal/kg Additional Notes Protein Needs: 64-80g (1.2-1. 5g/kg) Fluid needs: 1 ml/kcal Nutrition Intervention Change Diet Order: Continue current Add Supplement/Snack (indicate name/kcal Ensure Clear Mixed Marie 1 /protein ) daily Provides kCal: 240 Provides Protein (gm) 8 Goal #1 Meet at least 75% of calorie and protein needs via PO and ONS intakes Anticipated Discharge Needs: Renal diet Follow-Up By: 08/29/18 Additional Comments Follow for PO and ONS intakes
[2018-08-28] MEDS: DILAUDID IV PRN (20:55)
[2018-08-28] MEDS: BENADRYL PO PRN (22:48)
[2018-08-29] MEDS: DILAUDID IV PRN ×6 (01:03→23:29)
[2018-08-29] MEDS: SODIUM CHLORIDE FLUSH SYRINGE 10 ML IV PRN (01:04)
[2018-08-29] MEDS: APRESOLINE PO SCH ×3 (06:54→23:28)
[2018-08-29 08:27] LABS: Calcium 9.3 mg/dL (8.4-10.2)
[2018-08-29] MEDS: HEMOCYTE PLUS PO SCH (09:41)
[2018-08-29] MEDS: PROzac PO SCH (09:41)
[2018-08-29] MEDS: TOPROL XL PO SCH (09:41)
[2018-08-29] MEDS: IMDUR PO SCH (09:42)
[2018-08-29] MEDS: HumuLIN R SUB-Q SCH ×4 (09:42→23:29)
[2018-08-29] MEDS: COZAAR PO SCH (09:42)
[2018-08-29] MEDS: NORVASC PO SCH (09:42)
[2018-08-29] MEDS: PEPCID PO SCH ×2 (09:43→23:28)
[2018-08-29] MEDS: SODIUM CHLORIDE FLUSH SYRINGE 10 ML IV SCH ×2 (09:43→23:29)
--- NOTE | 2018-08-29 10:40 | Progress Note ---
Assessment and Plan 1. ESRD: Continue hemodialysis three times a week, TTS schedule. 2. Chest pain: Followed by cards. 3. A.fib with RVR: SR now. 4. DM type 2. 5. Chronic pleural effusion. 6. Anemia: Epogen if needed. 7. PAD. Subjective Date of service: 08/29/18 Interval history: Patient was examined at the bedside. Objective - Vital Signs Vital signs: Vital Signs - 12hr 08/28/18 08/29/18 08/29/18 22:48 00:04 04:00 Temperature 98.6 F Pulse Rate 63 63 80 Respiratory 16 Rate Respiratory Rate [Left Arm] Blood Pressure 126/83 137/84 O2 Sat by Pulse 100 Oximetry 08/29/18 08/29/18 08/29/18 04:40 06:54 10:00 Temperature 98.2 F Pulse Rate 78 78 Respiratory 20 Rate Respiratory 18 Rate [Left Arm] Blood Pressure 136/99 136/99 O2 Sat by Pulse 100 97 Oximetry 08/29/18 10:15 Temperature 97.9 F Pulse Rate 79 Respiratory 20 Rate Respiratory Rate [Left Arm] Blood Pressure 157/110 O2 Sat by Pulse 100 Oximetry - General Appearance General appearance: well-developed, appears stated age, frail, other (not in distress, right IJ tunnel catheter) EENT: ATNC, PERRL, hearing intact, vision intact Neck: supple Respiratory: Present: Clear to Ascultation Cardiology: regular, S1S2, no murmurs Gastrointestinal: normoactive bowel sounds, no tenderness, no distended Neurologic: no focal deficit, no asterixis, alert and oriented x3 Musculoskeletal: other (no edema, riht thumb tip ischemia, left below elbow amputation) - Lab 08/28/18 06:24 08/29/18 06:40 Most recent lab results Calcium 9.3 mg/dL (8.4-10.2) 08/29/18 06:40 Medications & Allergies - Medications Allergies/Adverse Reactions: Allergies aspirin Allergy (Verified 03/16/17 01:25) Unknown stomach cramps pork derived (porcine) Allergy (Verified 03/16/17 01:27) Rash venom-honey bee [bee venom (honey bee)] Allergy (Verified 03/16/17 01:27) Anaphylaxis Pork/Porcine Containing Products Adverse Reaction (Severe, Verified 02/13/17 09:31) Nausea,VOMITING Home Medications: Home Medications Medication Instructions Recorded Confirmed Last Taken Type Acetaminophen [Acetaminophen TAB] 650 mg PO Q4H PRN tablet 05/05/18 08/26/18 Unknown Rx FLUoxetine HCL [Fluoxetine HCl] 40 mg PO QDAY #30 capsule 05/05/18 08/26/18 Unknown Rx Famotidine [Pepcid] 10 mg PO BID #15 tablet 05/05/18 08/26/18 Unknown Rx Fe Fumarate/FA/Mv, Min Comb#15 1 each PO QDAY #30 capsule 05/05/18 08/26/18 Unknown Rx [Hemocyte Plus] Losartan [Cozaar] 100 mg PO QDAY 30 Days tablet 05/05/18 08/26/18 Unknown Rx Metoprolol Xl [Metoprolol 100 mg PO QDAY #30 tablet 05/05/18 08/26/18 Unknown Rx SUCCINATE ER TAB] diphenhydrAMINE [Benadryl CAP] 25 mg PO Q6H PRN #15 capsule 05/05/18 08/26/18 Unknown Rx oxyCODONE /ACETAMINOPHEN [Percocet 1 tab PO Q6H PRN #20 tablet 05/05/18 08/26/18 Unknown Rx 5/325 mg] Active Medications: Generic Name Dose Route Start Last Admin Trade Name Freq PRN Reason Stop Dose Admin Acetaminophen 650 mg 08/25/18 03:58 08/28/18 00:51 Tylenol PO 650 mg Q4H PRN Administration Pain MILD(1-3)/Fever >100.5/DOUGLAS Amlodipine Besylate 10 mg 08/27/18 10:00 08/29/18 09:42 Norvasc PO 10 mg DAILY BEAN Administration Atorvastatin Calcium 40 mg 08/25/18 22:00 08/28/18 22:48 Lipitor PO 40 mg QHS BEAN Administration Clonidine HCl 0.1 mg 08/25/18 16:09 08/26/18 08:50 Catapres PO 0.1 mg Q4H PRN Administration Chest Pain Diphenhydramine HCl 25 mg 08/25/18 06:57 08/28/18 22:48 Benadryl PO 25 mg Q6H PRN Administration Itching Epoetin Prashant 10,000 unit 08/25/18 10:27 08/28/18 13:15 Procrit SUB-Q 10,000 unit KATERYNA PRN Administration hemodialysis Famotidine 10 mg 08/25/18 10:00 08/29/18 09:43 Pepcid PO 10 mg BID BEAN Administration Fluoxetine HCl 40 mg 08/25/18 10:00 08/29/18 09:41 Prozac PO 40 mg QDAY BEAN Administration Hydralazine HCl 50 mg 08/26/18 14:00 08/29/18 06:54 Apresoline PO 50 mg Q8HR BEAN Administration Hydromorphone HCl 0.5 mg 08/28/18 16:42 08/29/18 06:54 Dilaudid IV 0.5 mg Q3H PRN Administration Pain , Severe (7-10) Sodium Chloride 100 mls @ 999 mls/hr 08/28/18 11:00 Nacl 0.9% IV KATERYNA PRN Hypotension Insulin Human Regular 0 units 08/25/18 07:30 08/29/18 09:42 Humulin R SUB-Q Not Given ACHS [facility] Protocol Isosorbide Mononitrate 30 mg 08/26/18 10:00 08/29/18 09:42 Imdur PO 30 mg QDAY BEAN Administration Losartan Potassium 100 mg 08/25/18 10:00 08/29/18 09:42 Cozaar PO 100 mg QDAY [facility] Administration Magnesium Hydroxide 30 ml 08/25/18 03:58 08/27/18 09:37 Milk Of Magnesia PO 30 ml Q4H PRN Administration Constipation Metoprolol Succinate 100 mg 08/25/18 08:00 08/29/18 09:41 Toprol Xl PO 100 mg QDAY@0800 BEAN Administration Multivitamins/Iron 1 each 08/25/18 10:00 08/29/18 09:41 Hemocyte Plus PO 1 each QDAY BEAN Administration Ondansetron HCl 4 mg 08/25/18 03:58 Zofran IV Q8H PRN Nausea And Vomiting Sodium Chloride 10 ml 08/25/18 10:00 08/29/18 09:43 Sodium Chloride Flush Syringe 10 Ml IV 10 ml BID BEAN Administration Sodium Chloride 10 ml 08/25/18 03:58 08/29/18 01:04 Sodium Chloride Flush Syringe 10 Ml IV 10 ml PRN PRN Administration LINE FLUSH
--- NOTE | 2018-08-29 11:16 | Progress Note ---
Assessment and Plan Chest pain, managed medically ASA allergy DM type II PVD s/p left arm amputation Hypertension ESRD on hemodialysis Thrombocytopenia, chronic Hx of Nonischemic CMP EF 15-20% by echo this admission. Non-obstructive CAD [facility] 01/2017 revealed non-obstructive, single vessel disease of the proximal LAD recommended for medical therapy. Permanent Atrial fibrillation, rate control off coumadin and aspirin due to recent history of GIB 04/09/2018 Recommend; Due to his multiple severe comorbidities, the patient has previously been determ ined a poor candidate for further aggressive cardiac invasive management. Continue medical therapy for chronic atrial fibrillation, dilated cardiomyopathy and non-obstructive CAD. Consider rule out PE protocol and rule out DVT of LUE. Subjective Date of service: 08/29/18 Interval history: Patient complains of chest pain and LUE pain. Objective Vital Signs Temp Pulse Resp Resp BP Pulse Ox 08/29/18 10:15 97.9 F 79 20 157/110 100 08/29/18 10:00 18 97 08/29/18 06:54 78 136/99 08/29/18 04:40 98.2 F 78 20 136/99 100 08/29/18 04:00 80 08/29/18 00:04 98.6 F 63 16 137/84 100 08/28/18 22:48 63 126/83 08/28/18 21:39 100 08/28/18 21:00 98.4 F 63 18 126/83 100 08/28/18 20:00 85 08/28/18 16:53 75 149/101 96 08/28/18 13:30 98.0 F 61 18 160/90 08/28/18 13:20 70 170/76 08/28/18 13:00 68 174/78 08/28/18 12:45 68 176/78 08/28/18 12:30 86 172/92 08/28/18 12:15 67 187/95 08/28/18 12:00 66 164/71 08/28/18 11:45 68 156/71 08/28/18 11:30 77 154/74 08/28/18 11:15 78 162/79 - Physical Examination General: No Apparent Distress HEENT: Positive: PERRL Neck: Positive: trachea midline Cardiac: Positive: irregularly irregular Lungs: Positive: Decreased Breath Sounds Neuro: Positive: Weakness Extremities: Absent: edema - Labs and Meds Comprehensive Metabolic Panel 08/29/18 Range/Units 06:40 Sodium 137 (137-145) mmol/L Potassium 4.4 (3.6-5.0) mmol/L Chloride 100.4 (98-107) mmol/L Carbon Dioxide 27 (22-30) mmol/L BUN 23 H (9-20) mg/dL Creatinine 3.6 H (0.8-1.5) mg/dL Glucose 87 (75-100) mg/dL Calcium 9.3 (8.4-10.2) mg/dL
--- NOTE | 2018-08-29 16:10 | Progress Note ---
Assessment and Plan Assessment and plan: Chest pain. Continue beta jett and statin. Patient had an LHC 2017 showing moderate to severe calcification in the left main with minimal irregularities. LAD showed a long 50-70% stenosis of the proximal segment. LCx and RCA were angiographically normal. Cardiology consulted and recommends repeat LHC with IFR of the LAD. However, patient reportedly has history of multiple falls and extensive comorbidities. Therefore cardiology feels the patient is a poor candidate for intervention with long-term dual antiplatelet therapy. Echocardiogram reveals severe four-chamber dilated cardiomyopathy with moderate concentric left ventricular hypertrophy and an EF of 10-15%. Elevated troponin. pain control. Dilated cardiomyopathy. Patient with severe four-chamber dilated cardiomyopathy. Left ventricle is moderate to severely dilated. Acute systolic heart failure. EF 10-15%. Diabetes mellitus type 2. Continue Accu-Cheks Scheduled insulin. Hyperlipidemia. Continue statins. Peripheral vascular disease. Continue statins. Right thumb tip dry gangrene -Vascular surgery consult. Hypertension. Continue antihypertensive medications. ESRD. Continue hemodialysis per nephrology. Left upper extremity pain - Doppler ultrasound ordered Patient is appropriate for hospice and have discussed with him and he wants to be explained more with hospice people and I put a hospice consult. History Interval history: Patient was seen and evaluated this morning, patient is c/o left upper extremity pain. Hospitalist Physical - Physical exam Narrative exam: Not in cardiopulmonary distress. The patient is emaciated. Vital signs as documented. Head exam is unremarkable. No scleral icterus . Neck is without jugular venous distension, thyromegaly, or carotid bruits. Lungs are clear to auscultation. Cardiac exam reveals regular rate and Rhythm. Abdominal exam reveals normal bowel sounds, no masses, no organomegaly and no aortic enlargement. Extremities left arm amputee, no ulcer. dark discoloration of the the tip of the right thumb. INDUSTRIAL TRAINER: Alert and oriented 3. No focal weakness. - Constitutional Vitals: Temp Pulse Resp BP Pulse Ox 98.6 F 78 20 158/119 100 08/29/18 13:22 08/29/18 13:21 08/29/18 13:21 08/29/18 13:21 08/29/18 13:21 General appearance: Present: no acute distress Results - Labs CBC & Chem 7: 08/28/18 06:24 08/29/18 06:40 Labs: Laboratory Last Values WBC 4.3 K/mm3 (4.5-11.0) L 08/28/18 06:24 RBC 3.07 M/mm3 (3.65-5.03) L 08/28/18 06:24 Hgb 10.1 gm/dl (11.8-15.2) L 08/28/18 06:24 Hct 31.1 % (35.5-45.6) L 08/28/18 06:24 MCV 102 fl (84-94) H 08/28/18 06:24 MCH 33 pg (28-32) H 08/28/18 06:24 MCHC 33 % (32-34) 08/28/18 06:24 RDW 21.9 % (13.2-15.2) H 08/28/18 06:24 Plt Count 94 K/mm3 (140-440) L 08/28/18 06:24 Lymph % (Auto) 17.0 % (13.4-35.0) 08/28/18 06:24 Hinds % (Auto) 8.6 % (0.0-7.3) H 08/28/18 06:24 Eos % (Auto) 1.0 % (0.0-4.3) 08/28/18 06:24 Baso % (Auto) 0.6 % (0.0-1.8) 08/28/18 06:24 Lymph # 0.7 K/mm3 (1.2-5.4) L 08/28/18 06:24 Hinds # 0.4 K/mm3 (0.0-0.8) 08/28/18 06:24 Eos # 0.0 K/mm3 (0.0-0.4) 08/28/18 06:24 Baso # 0.0 K/mm3 (0.0-0.1) 08/28/18 06:24 Seg Neutrophils % 72.8 % (40.0-70.0) H 08/28/18 06:24 Seg Neutrophils # 3.1 K/mm3 (1.8-7.7) 08/28/18 06:24 Sodium 137 mmol/L (137-145) 08/29/18 06:40 Potassium 4.4 mmol/L (3.6-5.0) 08/29/18 06:40 Chloride 100.4 mmol/L (98-107) 08/29/18 06:40 Carbon Dioxide 27 mmol/L (22-30) 08/29/18 06:40 Anion Gap 14 mmol/L 08/29/18 06:40 BUN 23 mg/dL (9-20) H 08/29/18 06:40 Creatinine 3.6 mg/dL (0.8-1.5) H 08/29/18 06:40 Estimated GFR 21 ml/min 08/29/18 06:40 BUN/Creatinine Ratio 6 % 08/29/18 06:40 Glucose 87 mg/dL (75-100) 08/29/18 06:40 POC Glucose 90 (70-105) 08/26/18 16:51 Calcium 9.3 mg/dL (8.4-10.2) 08/29/18 06:40 Total Bilirubin 0.40 mg/dL (0.1-1.2) 08/25/18 01:07 AST 27 units/L (5-40) 08/25/18 01:07 ALT 19 units/L (7-56) 08/25/18 01:07 Alkaline Phosphatase 110 units/L (35-129) 08/25/18 01:07 Total Creatine Kinase 39 units/L (55-170) L 08/28/18 06:24 CK-MB (CK-2) 3.1 ng/mL (0.0-4.0) 08/28/18 06:24 CK-MB (CK-2) Rel Index 7.9 (0-4) H 08/28/18 06:24 Troponin T 0.191 ng/mL (0.00-0.029) H* 08/28/18 06:24 Total Protein 6.1 g/dL (6.3-8.2) L 08/25/18 01:07 Albumin 2.4 g/dL (3.9-5) L 08/25/18 01:07 Albumin/Globulin Ratio 0.6 % 08/25/18 01:07 Triglycerides 49 mg/dL (2-149) 08/28/18 06:24 Cholesterol 72 mg/dL (50-199) 08/28/18 06:24 LDL Cholesterol Direct 20 mg/dL (50-130) L 08/28/18 06:24 HDL Cholesterol 44 mg/dL (40-59) 08/28/18 06:24 Cholesterol/HDL Ratio 1.63 % 08/28/18 06:24 Nutrition/Malnutrition Assess - Dietary Evaluation Nutrition/Malnutrition Findings: Nutrition Notes Start: 08/27/18 16:14 Freq: Status: Active Protocol: Document 08/29/18 15:19 RM (Rec: 08/29/18 15:33 RM [email or web address]) Nutrition Notes Initial or Follow up Reassessment Current Diagnosis Coronary Artery Disease, Diabetes,Hypertension, Hyperlipidemia Other Pertinent Diagnosis ESRD on HD Current Diet Renal Labs/Tests Reviewed Pertinent Medications Reviewed Height 6 ft 1 in Weight 55.1 kg [place] Body Weight (kg) 83.63 BMI 16.0 Subjective/Other Information Pt stated that he eats 1/4 to 1/3 of his meals and drinks the Ensure Clear. Pt and pt considering hospice for pt. Percent of energy/protein needs met: 37%/47% Burn Absent Trauma Absent #1 Nutrition Diagnosis Malnutrition Diagnosis Progress(for reassessment Continues documentation) Is patient on ventilator? No Is Patient Ambulatory and/or Out of Bed No REE-([facility]-confined to bed) 1691.136 Kcal/Kg value to use for calculation 41 Approximate Energy Requirements Using 2259 kcal/Kg Calculation Used for Recommendations Kcal/kg Additional Notes Protein Needs: 64-80g (1.2-1. 5g/kg) Fluid needs: 1 ml/kcal Nutrition Intervention Change Diet Order: Continue current Add Supplement/Snack (indicate name/kcal Ensure Clear Mixed Marie 1 /protein ) daily Provides kCal: 240 Provides Protein (gm) 8 Goal #1 Meet at least 75% of calorie and protein needs via PO and ONS intakes Anticipated Discharge Needs: Renal diet Follow-Up By: 08/31/18 Additional Comments Follow for PO and ONS intakes
--- NOTE | 2018-08-29 17:03 | Consultation ---
History of Present Illness - Reason for Consult Consult date: 08/29/18 ulceration on the right thumb Requesting physician: GINA CONTRERAS - History of Present Illness Patient is a 63-year-old man with end-stage renal disease. He has been chronically dialyzed through dialysis access in both upper extremities. 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 He has no current dialysis access which is patent in the left upper extremity. Approximately 2 months ago, he developed a painful ulceration on the right thumb near the nail. This gives him constant pain. He currently has no working dialysis access in his right upper extremity. He is currently being dialyzed by a jugular vein permacath. Past History Past Medical History: CAD, diabetes, ESRD, hypertension, hyperlipidemia Social history: no significant social history Medications and Allergies Allergies Allergy/AdvReac Type Severity Reaction Status Date / Time aspirin Allergy Unknown Verified 03/16/17 01:25 pork derived (porcine) Allergy Rash Verified 03/16/17 01:27 venom-honey bee Allergy Anaphylaxis Verified 03/16/17 01:27 [bee venom (honey bee)] Pork/Porcine Containing AdvReac Severe Nausea,VOMI Verified 02/13/17 09:31 Products TING Home Medications Medication Instructions Recorded Confirmed Last Taken Type Acetaminophen [Acetaminophen TAB] 650 mg PO Q4H PRN tablet 05/05/18 08/26/18 Unknown Rx FLUoxetine HCL [Fluoxetine HCl] 40 mg PO QDAY #30 capsule 05/05/18 08/26/18 Unknown Rx Famotidine [Pepcid] 10 mg PO BID #15 tablet 05/05/18 08/26/18 Unknown Rx Fe Fumarate/FA/Mv, Min Comb#15 1 each PO QDAY #30 capsule 05/05/18 08/26/18 Unknown Rx [Hemocyte Plus] Losartan [Cozaar] 100 mg PO QDAY 30 Days tablet 05/05/18 08/26/18 Unknown Rx Metoprolol Xl [Metoprolol 100 mg PO QDAY #30 tablet 05/05/18 08/26/18 Unknown Rx SUCCINATE ER TAB] diphenhydrAMINE [Benadryl CAP] 25 mg PO Q6H PRN #15 capsule 05/05/18 08/26/18 Unknown Rx oxyCODONE /ACETAMINOPHEN [Percocet 1 tab PO Q6H PRN #20 tablet 05/05/18 08/26/18 Unknown Rx 5/325 mg] Active Meds: Active Medications Acetaminophen (Tylenol) 650 mg PO Q4H PRN PRN Reason: Pain MILD(1-3)/Fever >100.5/DOUGLAS Last Admin: 08/28/18 00:51 Dose: 650 mg Documented by: Amlodipine Besylate (Norvasc) 10 mg PO DAILY [facility] Last Admin: 08/29/18 09:42 Dose: 10 mg Documented by: Apixaban (Eliquis) 2.5 mg PO Q12HR [facility]; Protocol Atorvastatin Calcium (Lipitor) 40 mg PO QHS [facility] Last Admin: 08/28/18 22:48 Dose: 40 mg Documented by: Clonidine HCl (Catapres) 0.1 mg PO Q4H PRN PRN Reason: Chest Pain Last Admin: 08/26/18 08:50 Dose: 0.1 mg Documented by: Diphenhydramine HCl (Benadryl) 25 mg PO Q6H PRN PRN Reason: Itching Last Admin: 08/28/18 22:48 Dose: 25 mg Documented by: Epoetin Prashant (Procrit) 10,000 unit SUB-Q KATERYNA PRN PRN Reason: hemodialysis Last Admin: 08/28/18 13:15 Dose: 10,000 unit Documented by: Famotidine (Pepcid) 10 mg PO BID [facility] Last Admin: 08/29/18 09:43 Dose: 10 mg Documented by: Fluoxetine HCl (Prozac) 40 mg PO QDAY [facility] Last Admin: 08/29/18 09:41 Dose: 40 mg Documented by: Hydralazine HCl (Apresoline) 50 mg PO Q8HR [facility] Last Admin: 08/29/18 16:15 Dose: 50 mg Documented by: Hydromorphone HCl (Dilaudid) 0.5 mg IV Q3H PRN PRN Reason: Pain , Severe (7-10) Last Admin: 08/29/18 16:16 Dose: 0.5 mg Documented by: Sodium Chloride (Nacl 0.9%) 100 mls @ 999 mls/hr IV KATERYNA PRN PRN Reason: Hypotension Insulin Human Regular (Humulin R) 0 units SUB-Q ACHS [facility]; Protocol Last Admin: 08/29/18 15:02 Dose: Not Given Documented by: Isosorbide Mononitrate (Imdur) 30 mg PO QDAY [facility] Last Admin: 08/29/18 09:42 Dose: 30 mg Documented by: Losartan Potassium (Cozaar) 100 mg PO QDAY [facility] Last Admin: 08/29/18 09:42 Dose: 100 mg Documented by: Magnesium Hydroxide (Milk Of Magnesia) 30 ml PO Q4H PRN PRN Reason: Constipation Last Admin: 08/27/18 09:37 Dose: 30 ml Documented by: Metoprolol Succinate (Toprol Xl) 100 mg PO QDAY@0800 [facility] Last Admin: 08/29/18 09:41 Dose: 100 mg Documented by: Multivitamins/Iron (Hemocyte Plus) 1 each PO QDAY [facility] Last Admin: 08/29/18 09:41 Dose: 1 each Documented by: Ondansetron HCl (Zofran) 4 mg IV Q8H PRN PRN Reason: Nausea And Vomiting Sodium Chloride (Sodium Chloride Flush Syringe 10 Ml) 10 ml IV BID [facility] Last Admin: 08/29/18 09:43 Dose: 10 ml Documented by: Sodium Chloride (Sodium Chloride Flush Syringe 10 Ml) 10 ml IV PRN PRN PRN Reason: LINE FLUSH Last Admin: 08/29/18 01:04 Dose: 10 ml Documented by: Exam - Constitutional Vitals: Temp Pulse Resp BP Pulse Ox 98.6 F 78 20 158/119 100 08/29/18 13:22 08/29/18 13:21 08/29/18 13:21 08/29/18 13:21 08/29/18 13:21 General appearance: Present: no acute distress - EENT Eyes: Present: EOM intact ENT: hearing intact - Neck Neck: Present: supple - Respiratory Respiratory effort: normal Respiratory: bilateral: CTA - Cardiovascular Rhythm: regular Heart Sounds: Present: S1 & S2. Absent: rub, click - Extremities Extremity abnormal: other (the left arm is amputated from the mid forearm. The wound appears to be well-healed. On the right arm, there is a 2+ radial and 2+ ulnar pulse. There is a superficial ulceration near the thumb which has dry e schar over it. There is no erythema and no drainage from the area. There are multiple old dialysis access sites in the right upper extremity but none of them are patent.) - Abdominal General gastrointestinal: Present: soft, non-tender - Integumentary Integumentary: Present: clear, warm, dry - Additional findings Additional findings: There is a permacath in the right internal jugular vein. Results - Labs CBC & Chem 7: 08/28/18 06:24 08/29/18 06:40 Labs: Abnormal lab results 08/29/18 Range/Units 06:40 BUN 23 H (9-20) mg/dL Creatinine 3.6 H (0.8-1.5) mg/dL Assessment and Plan - Patient Problems (1) Ulcer of upper extremity Current Visit: Yes Status: Chronic Qualifiers: Non-pressure ulcer stage: limited to breakdown of skin Qualified Code(s): L98.491 - Non-pressure chronic ulcer of skin of other sites limited to breakdown of skin Plan to address problem: Patient has a likely ischemic ulcer of the right thumb. However, the ischemia is probably related to small vessel disease intrinsic to the thumb itself. Macrovascular perfusion appears to be preserved. Recommend upper extremity arterial studies just to rule out any proximal stenosis which may be of significance in this issue. Otherwise, wound care and pain control are appropriate. Thank you for this consult.
[2018-08-29] MEDS: ELIQUIS PO SCH (23:28)
[2018-08-30] MEDS: DILAUDID IV PRN ×3 (03:01→21:49)
[2018-08-30] MEDS: APRESOLINE PO SCH ×3 (06:41→21:57)
[2018-08-30] MEDS: HumuLIN R SUB-Q SCH ×3 (07:45→17:23)
--- NOTE | 2018-08-30 08:24 | Progress Note ---
Assessment and Plan 1. ESRD: Continue hemodialysis three times a week, TTS schedule. 2. Coronary artery disease and severe nonischemic cardiomyopathy: Medical therapy. Followed by cards. 3. A.fib with RVR: SR now. 4. DM type 2. 5. Chronic pleural effusion. 6. Anemia: Epogen if needed. 7. PAD. Subjective Date of service: 08/30/18 Interval history: Patient was examined at the bedside. Objective - Vital Signs Vital signs: Vital Signs - 12hr 08/29/18 08/29/18 08/29/18 20:35 21:52 22:00 Temperature 97.9 F Pulse Rate 53 L Pulse Rate [ 77 Apical] Respiratory 20 16 Rate Blood Pressure 119/86 O2 Sat by Pulse 100 96 Oximetry 08/29/18 08/30/18 08/30/18 23:29 00:58 03:01 Temperature 98.4 F Pulse Rate 72 Pulse Rate [ Apical] Respiratory 16 20 18 Rate Blood Pressure 128/92 O2 Sat by Pulse 95 Oximetry 08/30/18 08/30/18 08/30/18 04:16 06:41 07:26 Temperature 97.7 F Pulse Rate 72 74 Pulse Rate [ Apical] Respiratory 18 16 Rate Blood Pressure 134/97 O2 Sat by Pulse 100 Oximetry - General Appearance General appearance: well-developed, appears stated age, frail, other (not in distress, right IJ tunnel catheter) EENT: ATNC, PERRL, hearing intact, vision intact Neck: supple Respiratory: Present: Clear to Ascultation Cardiology: regular, S1S2, no murmurs Gastrointestinal: normoactive bowel sounds, no tenderness, no distended Neurologic: no focal deficit, no asterixis, alert and oriented x3 Musculoskeletal: other (no edema, tip of right thumb ischemic area, left below elbow amputation) - Lab 08/28/18 06:24 08/29/18 06:40 Most recent lab results Calcium 9.3 mg/dL (8.4-10.2) 08/29/18 06:40 Medications & Allergies - Medications Allergies/Adverse Reactions: Allergies aspirin Allergy (Verified 03/16/17 01:25) Unknown stomach cramps pork derived (porcine) Allergy (Verified 03/16/17 01:27) Rash venom-honey bee [bee venom (honey bee)] Allergy (Verified 03/16/17 01:27) Anaphylaxis Pork/Porcine Containing Products Adverse Reaction (Severe, Verified 02/13/17 09:31) Nausea,VOMITING Home Medications: Home Medications Medication Instructions Recorded Confirmed Last Taken Type Acetaminophen [Acetaminophen TAB] 650 mg PO Q4H PRN tablet 05/05/18 08/26/18 Unknown Rx FLUoxetine HCL [Fluoxetine HCl] 40 mg PO QDAY #30 capsule 05/05/18 08/26/18 Unknown Rx Famotidine [Pepcid] 10 mg PO BID #15 tablet 05/05/18 08/26/18 Unknown Rx Fe Fumarate/FA/Mv, Min Comb#15 1 each PO QDAY #30 capsule 05/05/18 08/26/18 Unknown Rx [Hemocyte Plus] Losartan [Cozaar] 100 mg PO QDAY 30 Days tablet 05/05/18 08/26/18 Unknown Rx Metoprolol Xl [Metoprolol 100 mg PO QDAY #30 tablet 05/05/18 08/26/18 Unknown Rx SUCCINATE ER TAB] diphenhydrAMINE [Benadryl CAP] 25 mg PO Q6H PRN #15 capsule 05/05/18 08/26/18 Unknown Rx oxyCODONE /ACETAMINOPHEN [Percocet 1 tab PO Q6H PRN #20 tablet 05/05/18 08/26/18 Unknown Rx 5/325 mg] Active Medications: Generic Name Dose Route Start Last Admin Trade Name Freq PRN Reason Stop Dose Admin Acetaminophen 650 mg 08/25/18 03:58 08/28/18 00:51 Tylenol PO 650 mg Q4H PRN Administration Pain MILD(1-3)/Fever >100.5/DOUGLAS Amlodipine Besylate 10 mg 08/27/18 10:00 08/29/18 09:42 Norvasc PO 10 mg DAILY [facility] Administration Apixaban 2.5 mg 08/29/18 22:00 08/29/18 23:28 Eliquis PO 2.5 mg Q12HR [facility] Administration Protocol Atorvastatin Calcium 40 mg 08/25/18 22:00 08/29/18 23:27 Lipitor PO 40 mg QHS [facility] Administration Clonidine HCl 0.1 mg 08/25/18 16:09 08/26/18 08:50 Catapres PO 0.1 mg Q4H PRN Administration Chest Pain Diphenhydramine HCl 25 mg 08/25/18 06:57 08/28/18 22:48 Benadryl PO 25 mg Q6H PRN Administration Itching Epoetin Prashant 10,000 unit 08/25/18 10:27 08/28/18 13:15 Procrit SUB-Q 10,000 unit KATERYNA PRN Administration hemodialysis Famotidine 10 mg 08/25/18 10:00 08/29/18 23:28 Pepcid PO 10 mg BID [facility] Administration Fluoxetine HCl 40 mg 08/25/18 10:00 08/29/18 09:41 Prozac PO 40 mg QDAY [facility] Administration Hydralazine HCl 50 mg 08/26/18 14:00 08/30/18 06:41 Apresoline PO 50 mg Q8HR [facility] Administration Hydromorphone HCl 0.5 mg 08/28/18 16:42 08/30/18 06:41 Dilaudid IV 0.5 mg Q3H PRN Administration Pain , Severe (7-10) Sodium Chloride 100 mls @ 999 mls/hr 08/28/18 11:00 Nacl 0.9% IV KATERYNA PRN Hypotension Insulin Human Regular 0 units 08/25/18 07:30 08/30/18 07:45 Humulin R SUB-Q Not Given ACHS [facility] Protocol Isosorbide Mononitrate 30 mg 08/26/18 10:00 08/29/18 09:42 Imdur PO 30 mg QDAY [facility] Administration Losartan Potassium 100 mg 08/25/18 10:00 08/29/18 09:42 Cozaar PO 100 mg QDAY [facility] Administration Magnesium Hydroxide 30 ml 08/25/18 03:58 08/27/18 09:37 Milk Of Magnesia PO 30 ml Q4H PRN Administration Constipation Metoprolol Succinate 100 mg 08/25/18 08:00 08/29/18 09:41 Toprol Xl PO 100 mg QDAY@0800 [facility] Administration Multivitamins/Iron 1 each 08/25/18 10:00 08/29/18 09:41 Hemocyte Plus PO 1 each QDAY [facility] Administration Ondansetron HCl 4 mg 08/25/18 03:58 Zofran IV Q8H PRN Nausea And Vomiting Sodium Chloride 10 ml 08/25/18 10:00 08/29/18 23:29 Sodium Chloride Flush Syringe 10 Ml IV 10 ml BID [facility] Administration Sodium Chloride 10 ml 08/25/18 03:58 08/29/18 01:04 Sodium Chloride Flush Syringe 10 Ml IV 10 ml PRN PRN Administration LINE FLUSH
[2018-08-30] MEDS: TOPROL XL PO SCH (09:53)
[2018-08-30] MEDS: IMDUR PO SCH (09:54)
[2018-08-30] MEDS: NORVASC PO SCH (09:54)
[2018-08-30] MEDS: SODIUM CHLORIDE FLUSH SYRINGE 10 ML IV SCH (09:54)
[2018-08-30] MEDS: COZAAR PO SCH (09:54)
[2018-08-30] MEDS: PROzac PO SCH (09:54)
[2018-08-30] MEDS: PEPCID PO SCH ×2 (09:54→21:51)
[2018-08-30] MEDS: HEMOCYTE PLUS PO SCH (09:54)
[2018-08-30] MEDS: ELIQUIS PO SCH ×2 (09:54→21:51)
--- NOTE | 2018-08-30 11:30 | Progress Note ---
Assessment and Plan Chest pain, managed medically ASA allergy DM type II PVD s/p left arm amputation Ischemic right thumb Hypertension ESRD on hemodialysis Thrombocytopenia, chronic Hx of Nonischemic CMP EF 15-20% by echo this admission. Non-obstructive CAD [facility] 01/2017 revealed non-obstructive, single vessel disease of the proximal LAD recommended for medical therapy. Permanent Atrial fibrillation, rate control resumed on low dose eliquis Recommend; Due to his multiple severe comorbidities, the patient has previously been determined a poor candidate for further aggressive cardiac invasive management. Continue medical therapy for chronic atrial fibrillation, dilated cardiomyopathy and non-obstructive CAD. Conservative cardiac management. Subjective Date of service: 08/30/18 Interval history: No acute changes. Stable afib on telemetry. Objective Vital Signs Temp Pulse Pulse Resp BP Pulse Ox 08/30/18 10:17 97.5 F L 83 12 148/107 99 08/30/18 07:26 74 08/30/18 06:41 16 08/30/18 04:16 97.7 F 72 18 134/97 100 08/30/18 03:01 18 08/30/18 00:58 98.4 F 72 20 128/92 95 08/29/18 23:29 16 08/29/18 22:00 77 16 08/29/18 21:52 96 08/29/18 20:35 97.9 F 53 L 20 119/86 100 08/29/18 20:00 77 08/29/18 18:25 98.2 F 08/29/18 18:23 76 18 133/92 100 08/29/18 13:22 98.6 F 08/29/18 13:21 78 20 158/119 100 08/29/18 12:00 80 - Physical Examination General: No Apparent Distress HEENT: Positive: PERRL Neck: Positive: trachea midline Cardiac: Positive: irregularly irregular Lungs: Positive: Decreased Breath Sounds Neuro: Positive: Weakness Abdomen: Positive: Unremarkable Extremities: Absent: edema
--- NOTE | 2018-08-30 15:46 | Progress Note ---
Assessment and Plan Assessment and plan: Chest pain. Continue beta jett and statin. Patient had an LHC 2017 showing moderate to severe calcification in the left main with minimal irregularities. LAD showed a long 50-70% stenosis of the proximal segment. LCx and RCA were angiographically normal. Cardiology consulted and recommends repeat LHC with IFR of the LAD. However, patient reportedly has history of multiple falls and extensive comorbidities. Therefore cardiology feels the patient is a poor candidate for intervention with long-term dual antiplatelet therapy. Echocardiogram reveals severe four-chamber dilated cardiomyopathy with moderate concentric left ventricular hypertrophy and an EF of 10-15%. Elevated troponin. pain control. Dilated cardiomyopathy. Patient with severe four-chamber dilated cardiomyopathy. Left ventricle is moderate to severely dilated. Acute systolic heart failure. EF 10-15%. Diabetes mellitus type 2. Continue Accu-Cheks Scheduled insulin. Hyperlipidemia. Continue statins. Peripheral vascular disease. Continue statins. Right thumb tip dry gangrene -Vascular surgery consult. Hypertension. Continue antihypertensive medications. ESRD. Continue hemodialysis per nephrology. History of A. fib; on low-dose eliquis Left upper extremity pain - Doppler ultrasound ordered Disposition; continue inpatient care; continue discussion about hospice. History Interval history: Patient was seen and evaluated this morning, patient is c/o left upper extremity pain. Hospitalist Physical - Physical exam Narrative exam: Not in cardiopulmonary distress. The patient is emaciated. Vital signs as documented. Head exam is unremarkable. No scleral icterus . Neck is without jugular venous distension, thyromegaly, or carotid bruits. Lungs are clear to auscultation. Cardiac exam reveals regular rate and Rhythm. Abdominal exam reveals normal bowel sounds, no masses, no organomegaly and no aortic enlargement. Extremities left arm amputee, no ulcer. dark discoloration of the the tip of the right thumb. SPLIT LEATHER MOSSER: Alert and oriented 3. No focal weakness. - Constitutional Vitals: Temp Pulse Resp BP Pulse Ox 98.4 F 83 20 145/98 100 08/30/18 15:37 08/30/18 15:37 08/30/18 15:37 08/30/18 15:37 08/30/18 15:37 General appearance: Present: no acute distress Results - Labs CBC & Chem 7: 08/28/18 06:24 08/29/18 06:40 Labs: Laboratory Last Values WBC 4.3 K/mm3 (4.5-11.0) L 08/28/18 06:24 RBC 3.07 M/mm3 (3.65-5.03) L 08/28/18 06:24 Hgb 10.1 gm/dl (11.8-15.2) L 08/28/18 06:24 Hct 31.1 % (35.5-45.6) L 08/28/18 06:24 MCV 102 fl (84-94) H 08/28/18 06:24 MCH 33 pg (28-32) H 08/28/18 06:24 MCHC 33 % (32-34) 08/28/18 06:24 RDW 21.9 % (13.2-15.2) H 08/28/18 06:24 Plt Count 94 K/mm3 (140-440) L 08/28/18 06:24 Lymph % (Auto) 17.0 % (13.4-35.0) 08/28/18 06:24 [place] % (Auto) 8.6 % (0.0-7.3) H 08/28/18 06:24 Eos % (Auto) 1.0 % (0.0-4.3) 08/28/18 06:24 Baso % (Auto) 0.6 % (0.0-1.8) 08/28/18 06:24 Lymph # 0.7 K/mm3 (1.2-5.4) L 08/28/18 06:24 [place] # 0.4 K/mm3 (0.0-0.8) 08/28/18 06:24 Eos # 0.0 K/mm3 (0.0-0.4) 08/28/18 06:24 Baso # 0.0 K/mm3 (0.0-0.1) 08/28/18 06:24 Seg Neutrophils % 72.8 % (40.0-70.0) H 08/28/18 06:24 Seg Neutrophils # 3.1 K/mm3 (1.8-7.7) 08/28/18 06:24 Sodium 137 mmol/L (137-145) 08/29/18 06:40 Potassium 4.4 mmol/L (3.6-5.0) 08/29/18 06:40 Chloride 100.4 mmol/L (98-107) 08/29/18 06:40 Carbon Dioxide 27 mmol/L (22-30) 08/29/18 06:40 Anion Gap 14 mmol/L 08/29/18 06:40 BUN 23 mg/dL (9-20) H 08/29/18 06:40 Creatinine 3.6 mg/dL (0.8-1.5) H 08/29/18 06:40 Estimated GFR 21 ml/min 08/29/18 06:40 BUN/Creatinine Ratio 6 % 08/29/18 06:40 Glucose 87 mg/dL (75-100) 08/29/18 06:40 POC Glucose 103 (70-105) 08/30/18 07:48 Calcium 9.3 mg/dL (8.4-10.2) 08/29/18 06:40 Total Bilirubin 0.40 mg/dL (0.1-1.2) 08/25/18 01:07 AST 27 units/L (5-40) 08/25/18 01:07 ALT 19 units/L (7-56) 08/25/18 01:07 Alkaline Phosphatase 110 units/L (35-129) 08/25/18 01:07 Total Creatine Kinase 39 units/L (55-170) L 08/28/18 06:24 CK-MB (CK-2) 3.1 ng/mL (0.0-4.0) 08/28/18 06:24 CK-MB (CK-2) Rel Index 7.9 (0-4) H 08/28/18 06:24 Troponin T 0.191 ng/mL (0.00-0.029) H* 08/28/18 06:24 Total Protein 6.1 g/dL (6.3-8.2) L 08/25/18 01:07 Albumin 2.4 g/dL (3.9-5) L 08/25/18 01:07 Albumin/Globulin Ratio 0.6 % 08/25/18 01:07 Triglycerides 49 mg/dL (2-149) 08/28/18 06:24 Cholesterol 72 mg/dL (50-199) 08/28/18 06:24 LDL Cholesterol Direct 20 mg/dL (50-130) L 08/28/18 06:24 HDL Cholesterol 44 mg/dL (40-59) 08/28/18 06:24 Cholesterol/HDL Ratio 1.63 % 08/28/18 06:24 Nutrition/Malnutrition Assess - Dietary Evaluation Nutrition/Malnutrition Findings: Nutrition Notes Start: 08/27/18 16:14 Freq: Status: Active Protocol: Document 08/29/18 15:19 RM (Rec: 08/29/18 15:33 RM [email or web address]) Nutrition Notes Initial or Follow up Reassessment Current Diagnosis Coronary Artery Disease, Diabetes,Hypertension, Hyperlipidemia Other Pertinent Diagnosis ESRD on HD Current Diet Renal Labs/Tests Reviewed Pertinent Medications Reviewed Height 6 ft 1 in Weight 55.1 kg [place] Body Weight (kg) 83.63 BMI 16.0 Subjective/Other Information Pt stated that he eats 1/4 to 1/3 of his meals and drinks the Ensure Clear. Pt and pt considering hospice for pt. Percent of energy/protein needs met: 37%/47% Burn Absent Trauma Absent #1 Nutrition Diagnosis Malnutrition Diagnosis Progress(for reassessment Continues documentation) Is patient on ventilator? No Is Patient Ambulatory and/or Out of Bed No REE-([facility]-confined to bed) 1691.136 Kcal/Kg value to use for calculation 41 Approximate Energy Requirements Using 2259 kcal/Kg Calculation Used for Recommendations Kcal/kg Additional Notes Protein Needs: 64-80g (1.2-1. 5g/kg) Fluid needs: 1 ml/kcal Nutrition Intervention Change Diet Order: Continue current Add Supplement/Snack (indicate name/kcal Ensure Clear Mixed Marie 1 /protein ) daily Provides kCal: 240 Provides Protein (gm) 8 Goal #1 Meet at least 75% of calorie and protein needs via PO and ONS intakes Anticipated Discharge Needs: Renal diet Follow-Up By: 08/31/18 Additional Comments Follow for PO and ONS intakes
--- NOTE | 2018-08-30 16:31 | Vascular Lab Report ---
PROCEDURE: VL VENOUS DUPLEX UE BILAT TECHNIQUE: Duplex Doppler imaging of the veins of the bilateral upper extremities was performed HISTORY: pain in the left arm COMPARISONS: None. FINDINGS: There is echogenic, partially mobile thrombus within the distal right subclavian vein, with some flow around it. The proximal right subclavian vein is poorly visualized due to dialysis access. The right internal jugular vein, axillary vein, brachial vein, basilic vein, and cephalic vein are pa tent and compressible. There appears to be a thrombosed radial artery to cephalic vein arteriovenous fistula. The left internal jugular vein, subclavian vein, axillary vein, brachial vein, basilic vein, and ceph alic vein are patent. There is a thrombosed arteriovenous fistula in the mid biceps area. In the area of the patient's pain in the left antecubital fossa, there is a hypoechoic, irregular and nonvascularized area that measures 3.4 x 0.5 cm, that may represent a hematoma IMPRESSION: 1. Nonocclusive and partially mobile thrombus in the distal right subclavian vein. 2. Possible thrombosed right radial to cephalic arteriovenous fistula 3. Thrombosed left mid biceps arteriovenous fistula. 4. Painful area in the left antecubital fossa that demonstrates an irregular hypoechoic area that may represent a hematoma. Findings were discussed with RONALDO Helms at 4:27 PM, Eastern standard time, on 08/30/2018. This document is electronically signed by Lizette Barone MD., August 30 2018 04:28:36 PM ET
[2018-08-30] MEDS: PROCRIT SUB-Q PRN (18:30)
--- NOTE | 2018-08-30 18:30 | Event Note ---
Date: 08/30/18 Pt on HD. He complains of LUE pain. Denies discomfort of the RUE except mild pain at the ulcer on his right thumb wound. Arterial duplex complete, but await official report. Further recommendations pending these results No vascular surgery intervention recommended at this point.
[2018-08-30] MEDS ORDERED: NACL 0.9 (PRIMING MACHINE ONLY DIALYSIS) MC ONE (19:00)
[2018-08-30] MEDS: TYLENOL PO PRN (20:40)
[2018-08-31] MEDS: HumuLIN R SUB-Q SCH ×5 (05:30→22:14)
[2018-08-31] MEDS: APRESOLINE PO SCH ×3 (05:35→21:33)
[2018-08-31] MEDS: DILAUDID IV PRN ×3 (05:35→18:24)
[2018-08-31] MEDS: SODIUM CHLORIDE FLUSH SYRINGE 10 ML IV SCH ×3 (07:37→21:32)
--- NOTE | 2018-08-31 07:58 | Progress Note ---
Assessment and Plan 1. ESRD: Continue hemodialysis three times a week, TTS schedule. 2. Coronary artery disease and severe nonischemic cardiomyopathy: Medical therapy. Followed by cards. 3. A.fib with RVR: Rate controlled. 4. DM type 2. 5. Chronic pleural effusion. 6. Anemia: Epogen if needed. 7. PAD. Subjective Date of service: 08/31/18 Interval history: Patient was examined at the bedside. Doing ok. Objective - Vital Signs Vital signs: Vital Signs - 12hr 08/30/18 08/30/18 08/30/18 20:27 20:40 21:40 Temperature 98.2 F Pulse Rate 90 Respiratory 16 17 17 Rate Respiratory Rate [Bilateral Leg] Blood Pressure Blood Pressure 139/101 [Right] O2 Sat by Pulse 95 Oximetry 08/30/18 08/30/18 08/30/18 21:49 21:57 22:00 Temperature Pulse Rate 90 Respiratory 16 16 Rate Respiratory 16 Rate [Bilateral Leg] Blood Pressure 139/101 Blood Pressure [Right] O2 Sat by Pulse 95 Oximetry 08/30/18 08/31/18 08/31/18 22:19 00:42 04:20 Temperature 99.2 F Pulse Rate 72 90 Respiratory 17 16 Rate Respiratory Rate [Bilateral Leg] Blood Pressure Blood Pressure 132/88 [Right] O2 Sat by Pulse 96 Oximetry 08/31/18 08/31/18 08/31/18 05:25 05:35 06:05 Temperature 98 F Pulse Rate 68 81 Respiratory 16 16 17 Rate Respiratory Rate [Bilateral Leg] Blood Pressure 134/94 Blood Pressure 134/94 [Right] O2 Sat by Pulse 97 Oximetry - General Appearance General appearance: well-developed, appears stated age, frail, other (not in distress, right IJ tunnel catheter) EENT: ATNC, PERRL, hearing intact, vision intact Neck: supple Respiratory: Present: Clear to Ascultation Cardiology: irregularly irregular, S1S2, no murmurs Gastrointestinal: normoactive bowel sounds, no tenderness, no distended Integumentary: no rash, warm and dry Neurologic: no focal deficit, no asterixis, alert and oriented x3 Musculoskeletal: other (no edema, right thumb tip appears necrotic) - Lab 08/28/18 06:24 08/29/18 06:40 Most recent lab results Calcium 9.3 mg/dL (8.4-10.2) 08/29/18 06:40 Medications & Allergies - Medications Allergies/Adverse Reactions: Allergies aspirin Allergy (Verified 03/16/17 01:25) Unknown stomach cramps pork derived (porcine) Allergy (Verified 03/16/17 01:27) Rash venom-honey bee [bee venom (honey bee)] Allergy (Verified 03/16/17 01:27) Anaphylaxis Pork/Porcine Containing Products Adverse Reaction (Severe, Verified 02/13/17 09:31) Nausea,VOMITING Home Medications: Home Medications Medication Instructions Recorded Confirmed Last Taken Type Acetaminophen [Acetaminophen TAB] 650 mg PO Q4H PRN tablet 05/05/18 08/26/18 Unknown Rx FLUoxetine HCL [Fluoxetine HCl] 40 mg PO QDAY #30 capsule 05/05/18 08/26/18 Unknown Rx Famotidine [Pepcid] 10 mg PO BID #15 tablet 05/05/18 08/26/18 Unknown Rx Fe Fumarate/FA/Mv, Min Comb#15 1 each PO QDAY #30 capsule 05/05/18 08/26/18 Unknown Rx [Hemocyte Plus] Losartan [Cozaar] 100 mg PO QDAY 30 Days tablet 05/05/18 08/26/18 Unknown Rx Metoprolol Xl [Metoprolol 100 mg PO QDAY #30 tablet 05/05/18 08/26/18 Unknown Rx SUCCINATE ER TAB] diphenhydrAMINE [Benadryl CAP] 25 mg PO Q6H PRN #15 capsule 05/05/18 08/26/18 Unknown Rx oxyCODONE /ACETAMINOPHEN [Percocet 1 tab PO Q6H PRN #20 tablet 05/05/18 08/26/18 Unknown Rx 5/325 mg] Active Medications: Generic Name Dose Route Start Last Admin Trade Name Freq PRN Reason Stop Dose Admin Acetaminophen 650 mg 08/25/18 03:58 08/30/18 20:40 Tylenol PO 650 mg Q4H PRN Administration Pain MILD(1-3)/Fever >100.5/DOUGLAS Amlodipine Besylate 10 mg 08/27/18 10:00 08/30/18 09:54 Norvasc PO 10 mg DAILY BEAN Administration Apixaban 2.5 mg 08/29/18 22:00 08/30/18 21:51 Eliquis PO 2.5 mg Q12HR BEAN Administration Protocol Atorvastatin Calcium 40 mg 08/25/18 22:00 08/30/18 21:51 Lipitor PO 40 mg QHS BEAN Administration Clonidine HCl 0.1 mg 08/25/18 16:09 08/26/18 08:50 Catapres PO 0.1 mg Q4H PRN Administration Chest Pain Diphenhydramine HCl 25 mg 08/25/18 06:57 08/28/18 22:48 Benadryl PO 25 mg Q6H PRN Administration Itching Epoetin Prashant 10,000 unit 08/25/18 10:27 08/30/18 18:30 Procrit SUB-Q 10,000 unit KATERYNA PRN Administration hemodialysis Famotidine 10 mg 08/25/18 10:00 08/30/18 21:51 Pepcid PO 10 mg BID BEAN Administration Fluoxetine HCl 40 mg 08/25/18 10:00 08/30/18 09:54 Prozac PO 40 mg QDAY BEAN Administration Hydralazine HCl 50 mg 08/26/18 14:00 08/31/18 05:35 Apresoline PO 50 mg Q8HR BEAN Administration Hydromorphone HCl 0.5 mg 08/30/18 21:29 08/31/18 05:35 Dilaudid IV 0.5 mg Q4H PRN Administration Pain , Severe (7-10) Sodium Chloride 100 mls @ 999 mls/hr 08/28/18 11:00 Nacl 0.9% IV KATERYNA PRN Hypotension Insulin Human Regular 0 units 08/25/18 07:30 08/31/18 05:30 Humulin R SUB-Q Not Given ACHS [facility] Protocol Isosorbide Mononitrate 30 mg 08/26/18 10:00 08/30/18 09:54 Imdur PO 30 mg QDAY BEAN Administration Losartan Potassium 100 mg 08/25/18 10:00 08/30/18 09:54 Cozaar PO 100 mg QDAY BEAN Administration Magnesium Hydroxide 30 ml 08/25/18 03:58 08/27/18 09:37 Milk Of Magnesia PO 30 ml Q4H PRN Administration Constipation Metoprolol Succinate 100 mg 08/25/18 08:00 08/30/18 09:53 Toprol Xl PO 100 mg QDAY@0800 [facility] Administration Multivitamins/Iron 1 each 08/25/18 10:00 08/30/18 09:54 Hemocyte Plus PO 1 each QDAY BEAN Administration Ondansetron HCl 4 mg 08/25/18 03:58 08/30/18 16:25 Zofran IV 4 mg Q8H PRN Administration Nausea And Vomiting Sodium Chloride 10 ml 08/25/18 10:00 08/31/18 07:37 Sodium Chloride Flush Syringe 10 Ml IV Not Given BID BEAN Sodium Chloride 10 ml 08/25/18 03:58 08/29/18 01:04 Sodium Chloride Flush Syringe 10 Ml IV 10 ml PRN PRN Administration LINE FLUSH
[2018-08-31] MEDS: COZAAR PO SCH (09:34)
[2018-08-31] MEDS: PEPCID PO SCH ×2 (09:34→21:32)
[2018-08-31] MEDS: IMDUR PO SCH (09:34)
[2018-08-31] MEDS: TOPROL XL PO SCH (09:34)
[2018-08-31] MEDS: NORVASC PO SCH (09:34)
[2018-08-31] MEDS: PROzac PO SCH (09:35)
[2018-08-31] MEDS: ELIQUIS PO SCH ×2 (09:35→21:32)
[2018-08-31] MEDS: HEMOCYTE PLUS PO SCH (09:35)
--- NOTE | 2018-08-31 10:40 | Progress Note ---
Assessment and Plan Chest pain, managed medically ASA allergy DM type II PVD s/p left arm amputation Ischemic right thumb Hypertension ESRD on hemodialysis Thrombocytopenia, chronic Hx of Nonischemic CMP EF 15-20% by echo this admission. Non-obstructive CAD [facility] 01/2017 revealed non-obstructive, single vessel disease of the proximal LAD recommended for medical therapy. Permanent Atrial fibrillation, rate control resumed on low dose eliquis Recommend: Continue medical therapy for chronic atrial fibrillation, dilated cardiomyopathy and non-obstructive CAD. Conservative cardiac management. Subjective Date of service: 08/31/18 Interval history: Patient complains of LUE pain. No distress noted. Stable afib on telemetry. Objective Vital Signs Temp Pulse Resp Resp BP BP Pulse Ox 08/31/18 09:13 98.2 F 80 20 133/98 90 08/31/18 06:05 17 08/31/18 05:35 81 16 134/94 08/31/18 05:25 98 F 68 16 134/94 97 08/31/18 04:20 90 08/31/18 00:42 99.2 F 72 16 132/88 96 08/30/18 22:19 17 08/30/18 22:00 16 16 95 08/30/18 21:57 90 139/101 08/30/18 21:49 16 08/30/18 21:40 17 08/30/18 20:40 17 08/30/18 20:27 98.2 F 90 16 139/101 95 08/30/18 19:15 98.2 F 98 H 18 130/96 08/30/18 19:00 94 H 158/94 08/30/18 18:45 96 H 168/90 08/30/18 18:30 94 H 164/96 08/30/18 18:15 96 H 163/97 08/30/18 18:00 106 H 164/96 08/30/18 17:45 108 H 160/98 08/30/18 17:30 118 H 161/111 08/30/18 17:15 94 H 170/108 08/30/18 17:00 96 H 168/94 08/30/18 16:45 98 H 170/98 08/30/18 16:30 100 H 171/108 08/30/18 16:15 89 169/111 08/30/18 16:00 98.4 F 120 H 18 149/108 08/30/18 15:37 98.4 F 83 20 145/98 100 - Physical Examination General: No Apparent Distress HEENT: Positive: PERRL Neck: Positive: trachea midline Cardiac: Positive: irregularly irregular Lungs: Positive: Decreased Breath Sounds Neuro: Positive: Weakness Extremities: Absent: edema
--- NOTE | 2018-08-31 16:24 | Progress Note ---
Assessment and Plan Assessment and plan: Chest pain. Continue beta jett and statin. Patient had an LHC 2017 showing moderate to severe calcification in the left main with minimal irregularities. LAD showed a long 50-70% stenosis of the proximal segment. LCx and RCA were angiographically normal. Cardiology consulted and recommends repeat LHC with IFR of the LAD. However, patient reportedly has history of multiple falls and extensive comorbidities. Therefore cardiology feels the patient is a poor candidate for intervention with long-term dual antiplatelet therapy. Echocardiogram reveals severe four-chamber dilated cardiomyopathy with moderate concentric left ventricular hypertrophy and an EF of 10-15%. Elevated troponin. pain control. Dilated cardiomyopathy. Patient with severe four-chamber dilated cardiomyopathy. Left ventricle is moderate to severely dilated. Acute systolic heart failure. EF 10-15%. Diabetes mellitus type 2. Continue Accu-Cheks Scheduled insulin. Hyperlipidemia. Continue statins. Peripheral vascular disease. Continue statins. Right thumb tip dry gangrene -Vascular surgery consult. -Did and showed no occlusive distal right subclavian vein DVT -Left antecubital fossa hematoma thrombosed, aVF -We will follow vascular recommendations -Patient is already on eliquis Hypertension. Continue antihypertensive medications. ESRD. Continue hemodialysis per nephrology. History of A. fib; on low-dose eliquis Left upper extremity pain -Left antecubital fossa hematoma Disposition; continue inpatient care; patient refused hospice care. Pending vascular recommendations. History Interval history: Patient was seen and evaluated this morning, patient is c/o left upper extremity pain. Hospitalist Physical - Physical exam Narrative exam: Not in cardiopulmonary distress. The patient is emaciated. Vital signs as documented. Head exam is unremarkable. No scleral icterus . Neck is without jugular venous distension, thyromegaly, or carotid bruits. Lungs are clear to auscultation. Cardiac exam reveals regular rate and Rhythm. Abdominal exam reveals normal bowel sounds, no masses, no organomegaly and no aortic enlargement. Extremities left arm amputee, no ulcer. dark discoloration of the the tip of the right thumb. Mild tenderness in the left antecubital fossa. TELEMETRY REGISTERED NURSE: Alert and oriented 3. No focal weakness. - Constitutional Vitals: Temp Pulse Resp BP Pulse Ox 97.9 F 66 18 180/119 100 08/31/18 15:04 08/31/18 15:04 08/31/18 15:04 08/31/18 15:04 08/31/18 15:04 General appearance: Present: no acute distress Results - Labs CBC & Chem 7: 08/28/18 06:24 08/29/18 06:40 Labs: Laboratory Last Values WBC 4.3 K/mm3 (4.5-11.0) L 08/28/18 06:24 RBC 3.07 M/mm3 (3.65-5.03) L 08/28/18 06:24 Hgb 10.1 gm/dl (11.8-15.2) L 08/28/18 06:24 Hct 31.1 % (35.5-45.6) L 08/28/18 06:24 MCV 102 fl (84-94) H 08/28/18 06:24 MCH 33 pg (28-32) H 08/28/18 06:24 MCHC 33 % (32-34) 08/28/18 06:24 RDW 21.9 % (13.2-15.2) H 08/28/18 06:24 Plt Count 94 K/mm3 (140-440) L 08/28/18 06:24 Lymph % (Auto) 17.0 % (13.4-35.0) 08/28/18 06:24 [place] % (Auto) 8.6 % (0.0-7.3) H 08/28/18 06:24 Eos % (Auto) 1.0 % (0.0-4.3) 08/28/18 06:24 Baso % (Auto) 0.6 % (0.0-1.8) 08/28/18 06:24 Lymph # 0.7 K/mm3 (1.2-5.4) L 08/28/18 06:24 [place] # 0.4 K/mm3 (0.0-0.8) 08/28/18 06:24 Eos # 0.0 K/mm3 (0.0-0.4) 08/28/18 06:24 Baso # 0.0 K/mm3 (0.0-0.1) 08/28/18 06:24 Seg Neutrophils % 72.8 % (40.0-70.0) H 08/28/18 06:24 Seg Neutrophils # 3.1 K/mm3 (1.8-7.7) 08/28/18 06:24 Sodium 137 mmol/L (137-145) 08/29/18 06:40 Potassium 4.4 mmol/L (3.6-5.0) 08/29/18 06:40 Chloride 100.4 mmol/L (98-107) 08/29/18 06:40 Carbon Dioxide 27 mmol/L (22-30) 08/29/18 06:40 Anion Gap 14 mmol/L 08/29/18 06:40 BUN 23 mg/dL (9-20) H 08/29/18 06:40 Creatinine 3.6 mg/dL (0.8-1.5) H 08/29/18 06:40 Estimated GFR 21 ml/min 08/29/18 06:40 BUN/Creatinine Ratio 6 % 08/29/18 06:40 Glucose 87 mg/dL (75-100) 08/29/18 06:40 POC Glucose 115 (70-105) H 08/31/18 11:22 Calcium 9.3 mg/dL (8.4-10.2) 08/29/18 06:40 Total Bilirubin 0.40 mg/dL (0.1-1.2) 08/25/18 01:07 AST 27 units/L (5-40) 08/25/18 01:07 ALT 19 units/L (7-56) 08/25/18 01:07 Alkaline Phosphatase 110 units/L (35-129) 08/25/18 01:07 Total Creatine Kinase 39 units/L (55-170) L 08/28/18 06:24 CK-MB (CK-2) 3.1 ng/mL (0.0-4.0) 08/28/18 06:24 CK-MB (CK-2) Rel Index 7.9 (0-4) H 08/28/18 06:24 Troponin T 0.191 ng/mL (0.00-0.029) H* 08/28/18 06:24 Total Protein 6.1 g/dL (6.3-8.2) L 08/25/18 01:07 Albumin 2.4 g/dL (3.9-5) L 08/25/18 01:07 Albumin/Globulin Ratio 0.6 % 08/25/18 01:07 Triglycerides 49 mg/dL (2-149) 08/28/18 06:24 Cholesterol 72 mg/dL (50-199) 08/28/18 06:24 LDL Cholesterol Direct 20 mg/dL (50-130) L 08/28/18 06:24 HDL Cholesterol 44 mg/dL (40-59) 08/28/18 06:24 Cholesterol/HDL Ratio 1.63 % 08/28/18 06:24 Nutrition/Malnutrition Assess - Dietary Evaluation Nutrition/Malnutrition Findings: Nutrition Notes Start: 08/27/18 16:14 Freq: Status: Active Protocol: Document 08/31/18 10:47 TW (Rec: 08/31/18 10:50 TW [email or web address]) Co-Sign 08/31/18 10:47 LP Nutrition Notes Initial or Follow up Reassessment Current Diagnosis Coronary Artery Disease, Diabetes,Hypertension, Hyperlipidemia Other Pertinent Diagnosis ESRD on HD Current Diet Renal Labs/Tests Reviewed Pertinent Medications Reviewed Height 6 ft 1 in Weight 55.7 kg [place] Body Weight (kg) 83.63 BMI 16.2 Subjective/Other Information Pt stated he is eating about 25% of meals and only wants 1 Ensure Clear a day so he does not get sick of it. Percent of energy/protein needs met: 24%/30% Burn Absent Trauma Absent #1 Nutrition Diagnosis Malnutrition Diagnosis Progress(for reassessment Continues documentation) Is patient on ventilator? No Is Patient Ambulatory and/or Out of Bed No REE-([facility]-confined to bed) 1698.336 Kcal/Kg value to use for calculation 41 Approximate Energy Requirements Using 2284 kcal/Kg Calculation Used for Recommendations Kcal/kg Additional Notes Protein Needs: 64-80g (1.2-1. 5g/kg) Fluid needs: 1 ml/kcal Nutrition Intervention Change Diet Order: Continue current Add Supplement/Snack (indicate name/kcal Ensure Clear Mixed Marie 1 /protein ) daily Provides kCal: 240 Provides Protein (gm) 8 Goal #1 Meet at least 75% of calorie and protein needs via PO and ONS intakes Anticipated Discharge Needs: Renal diet Follow-Up By: 09/05/18 Additional Comments Follow for PO and ONS intakes
--- NOTE | 2018-08-31 16:37 | Event Note ---
Date: 08/31/18 Upper extremity arterial study on the right shows patent vessels down to the level of the hand. The radial and ulnar arteries are heavily calcified but multiphasic waveforms are seen throughout. Pathology likely related to small vessel calcification which is not amenable to surgical intervention. Recommend wound care is necessary to the right thumb. No vascular intervention needed at this time.
[2018-08-31] MEDS: CATAPRES PO PRN (18:25)
--- NOTE | 2018-08-31 22:52 | Vascular Lab Report ---
PROCEDURE: VL ARTERIAL DUPLEX UE RT HISTORY: Iscemic right hand FINDINGS: Real-time ultrasound of the right arm was performed using grayscale and color Doppler image s. These images demonstrate that peak systolic velocity in the right distal subclavian artery was 33 cm/ s; proximal right axillary artery 25 cm/s; distal axillary artery 25 cm/s; proximal right brachial ar naveen 54 cm/s; distal brachial artery 42 cm/s; proximal radial artery 41 cm/s; distal radial artery 42 cm/s; proximal ulna 123 cm/s; distal ulnar artery 44 cm second. There is a suspected right AV dialysis fistula, which appears occluded. There is nonocclusive thrombus within the right subclavian vein. IMPRESSION: The right arm arterial vasculature appears patent Deep venous thrombus in right subclavian vein This document is electronically signed by Steve Umana MD., August 31 2018 10:50:06 PM ET
[2018-09-01] MEDS: DILAUDID IV PRN ×4 (00:32→18:15)
[2018-09-01] MEDS: SODIUM CHLORIDE FLUSH SYRINGE 10 ML IV PRN ×2 (00:34→06:38)
[2018-09-01] MEDS: APRESOLINE PO SCH ×3 (06:34→23:08)
[2018-09-01] MEDS: HumuLIN R SUB-Q SCH ×3 (07:30→23:10)
--- NOTE | 2018-09-01 09:22 | Progress Note ---
Assessment and Plan 1. ESRD: Continue hemodialysis three times a week, TTS schedule. 2. Coronary artery disease and severe nonischemic cardiomyopathy: Medical therapy. 3. A.fib with RVR: Rate controlled. 4. DM type 2. 5. Chronic pleural effusion. 6. Anemia: Epogen if needed. 7. PAD. Subjective Date of service: 09/01/18 Interval history: Patient was examined at the bedside. Doing ok. Objective - Vital Signs Vital signs: Vital Signs - 12hr 08/31/18 09/01/18 09/01/18 21:33 00:36 04:35 Temperature 98.1 F Pulse Rate 81 82 75 Respiratory 20 Rate Blood Pressure 104/61 113/80 O2 Sat by Pulse 98 Oximetry 09/01/18 09/01/18 06:13 06:34 Temperature 98.5 F Pulse Rate 76 71 Respiratory 20 Rate Blood Pressure 126/88 128/88 O2 Sat by Pulse 100 Oximetry - General Appearance General appearance: well-developed, appears stated age, other (not in distress, right IJ tunnel catheter) EENT: ATNC, PERRL, hearing intact, vision intact Neck: supple Respiratory: Present: Clear to Ascultation Cardiology: irregularly irregular, S1S2 Gastrointestinal: normoactive bowel sounds, no tenderness, no distended Integumentary: no rash, warm and dry Neurologic: no focal deficit, no asterixis, alert and oriented x3 Musculoskeletal: other (left below elbow amputation) - Lab 08/28/18 06:24 08/29/18 06:40 Most recent lab results Calcium 9.3 mg/dL (8.4-10.2) 08/29/18 06:40 Medications & Allergies - Medications Allergies/Adverse Reactions: Allergies aspirin Allergy (Verified 03/16/17 01:25) Unknown stomach cramps pork derived (porcine) Allergy (Verified 03/16/17 01:27) Rash venom-honey bee [bee venom (honey bee)] Allergy (Verified 03/16/17 01:27) Anaphylaxis Pork/Porcine Containing Products Adverse Reaction (Severe, Verified 02/13/17 09:31) Nausea,VOMITING Home Medications: Home Medications Medication Instructions Recorded Confirmed Last Taken Type Acetaminophen [Acetaminophen TAB] 650 mg PO Q4H PRN tablet 05/05/18 08/26/18 Unknown Rx FLUoxetine HCL [Fluoxetine HCl] 40 mg PO QDAY #30 capsule 05/05/18 08/26/18 Unknown Rx Famotidine [Pepcid] 10 mg PO BID #15 tablet 05/05/18 08/26/18 Unknown Rx Fe Fumarate/FA/Mv, Min Comb#15 1 each PO QDAY #30 capsule 05/05/18 08/26/18 Unknown Rx [Hemocyte Plus] Losartan [Cozaar] 100 mg PO QDAY 30 Days tablet 05/05/18 08/26/18 Unknown Rx Metoprolol Xl [Metoprolol 100 mg PO QDAY #30 tablet 05/05/18 08/26/18 Unknown Rx SUCCINATE ER TAB] diphenhydrAMINE [Benadryl CAP] 25 mg PO Q6H PRN #15 capsule 05/05/18 08/26/18 Unknown Rx oxyCODONE /ACETAMINOPHEN [Percocet 1 tab PO Q6H PRN #20 tablet 05/05/18 08/26/18 Unknown Rx 5/325 mg] Active Medications: Generic Name Dose Route Start Last Admin Trade Name Freq PRN Reason Stop Dose Admin Acetaminophen 650 mg 08/25/18 03:58 08/30/18 20:40 Tylenol PO 650 mg Q4H PRN Administration Pain MILD(1-3)/Fever >100.5/DOUGLAS Amlodipine Besylate 10 mg 08/27/18 10:00 08/31/18 09:34 Norvasc PO 10 mg DAILY BEAN Administration Apixaban 2.5 mg 08/29/18 22:00 08/31/18 21:32 Eliquis PO 2.5 mg Q12HR BEAN Administration Protocol Atorvastatin Calcium 40 mg 08/25/18 22:00 08/31/18 21:32 Lipitor PO 40 mg QHS BEAN Administration Clonidine HCl 0.1 mg 08/25/18 16:09 08/31/18 18:25 Catapres PO 0.1 mg Q4H PRN Administration Chest Pain Diphenhydramine HCl 25 mg 08/25/18 06:57 08/28/18 22:48 Benadryl PO 25 mg Q6H PRN Administration Itching Epoetin Prashant 10,000 unit 08/25/18 10:27 08/30/18 18:30 Procrit SUB-Q 10,000 unit KATERYNA PRN Administration hemodialysis Famotidine 10 mg 08/25/18 10:00 08/31/18 21:32 Pepcid PO 10 mg BID BEAN Administration Fluoxetine HCl 40 mg 08/25/18 10:00 08/31/18 09:35 Prozac PO 40 mg QDAY BEAN Administration Hydralazine HCl 50 mg 08/26/18 14:00 09/01/18 06:34 Apresoline PO 50 mg Q8HR BEAN Administration Hydromorphone HCl 0.5 mg 08/30/18 21:29 09/01/18 06:35 Dilaudid IV 0.5 mg Q4H PRN Administration Pain , Severe (7-10) Sodium Chloride 100 mls @ 999 mls/hr 08/28/18 11:00 Nacl 0.9% IV KATERYNA PRN Hypotension Insulin Human Regular 0 units 08/25/18 07:30 08/31/18 22:14 Humulin R SUB-Q Not Given ACHS [facility] Protocol Isosorbide Mononitrate 30 mg 08/26/18 10:00 08/31/18 09:34 Imdur PO 30 mg QDAY [facility] Administration Losartan Potassium 100 mg 08/25/18 10:00 08/31/18 09:34 Cozaar PO 100 mg QDAY BEAN Administration Magnesium Hydroxide 30 ml 08/25/18 03:58 08/27/18 09:37 Milk Of Magnesia PO 30 ml Q4H PRN Administration Constipation Metoprolol Succinate 100 mg 08/25/18 08:00 08/31/18 09:34 Toprol Xl PO 100 mg QDAY@0800 BEAN Administration Multivitamins/Iron 1 each 08/25/18 10:00 08/31/18 09:35 Hemocyte Plus PO 1 each QDAY BEAN Administration Ondansetron HCl 4 mg 08/25/18 03:58 08/30/18 16:25 Zofran IV 4 mg Q8H PRN Administration Nausea And Vomiting Sodium Chloride 10 ml 08/25/18 10:00 08/31/18 21:32 Sodium Chloride Flush Syringe 10 Ml IV 10 ml BID BEAN Administration Sodium Chloride 10 ml 08/25/18 03:58 09/01/18 06:38 Sodium Chloride Flush Syringe 10 Ml IV 10 ml PRN PRN Administration LINE FLUSH
[2018-09-01] MEDS: PROzac PO SCH (10:50)
[2018-09-01] MEDS: PEPCID PO SCH ×2 (10:50→23:07)
[2018-09-01] MEDS: ELIQUIS PO SCH ×2 (10:51→23:07)
[2018-09-01] MEDS: NORVASC PO SCH (10:51)
[2018-09-01] MEDS: IMDUR PO SCH (10:51)
[2018-09-01] MEDS: SODIUM CHLORIDE FLUSH SYRINGE 10 ML IV SCH ×2 (10:52→23:08)
[2018-09-01] MEDS: TOPROL XL PO SCH (11:02)
[2018-09-01] MEDS: HEMOCYTE PLUS PO SCH (11:03)
[2018-09-01] MEDS: COZAAR PO SCH (11:03)
--- NOTE | 2018-09-01 15:01 | Progress Note ---
Assessment and Plan Assessment and plan: Chest pain. Continue beta jett and statin. Patient had an LHC 2017 showing moderate to severe calcification in the left main with minimal irregularities. LAD showed a long 50-70% stenosis of the proximal segment. LCx and RCA were angiographically normal. Cardiology consulted and recommends repeat LHC with IFR of the LAD. However, patient reportedly has history of multiple falls and extensive comorbidities. Therefore cardiology feels the patient is a poor candidate for intervention with long-term dual antiplatelet therapy. Echocardiogram reveals severe four-chamber dilated cardiomyopathy with moderate concentric left ventricular hypertrophy and an EF of 10-15%. Elevated troponin. pain control. Dilated cardiomyopathy. Patient with severe four-chamber dilated cardiomyopathy. Left ventricle is moderate to severely dilated. Acute systolic heart failure. EF 10-15%. Diabetes mellitus type 2. Continue Accu-Cheks Scheduled insulin. Hyperlipidemia. Continue statins. Peripheral vascular disease. Continue statins. Right thumb tip dry gangrene -Vascular surgery consult. -Did and showed no occlusive distal right subclavian vein DVT -Left antecubital fossa hematoma thrombosed, aVF -Vascular said they are not going to do any intervention -Patient is already on eliquis Hypertension. Continue antihypertensive medications. ESRD. Continue hemodialysis per nephrology. History of A. fib; on low-dose eliquis Left upper extremity pain -Left antecubital fossa hematoma Disposition; continue inpatient care; patient refused hospice care. Patient refused discharge. History Interval history: Patient was seen and evaluated this morning, patient is c/o left upper extremity pain and patient said he will not go home like this and he refused hospice care. Hospitalist Physical - Physical exam Narrative exam: Not in cardiopulmonary distress. The patient is emaciated. Vital signs as documented. Head exam is unremarkable. No scleral icterus . Neck is without jugular venous distension, thyromegaly, or carotid bruits. Lungs are clear to auscultation. Cardiac exam reveals regular rate and Rhythm. Abdominal exam reveals normal bowel sounds, no masses, no organomegaly and no aortic enlargement. Extremities left arm amputee, no ulcer. dark discoloration of the the tip of the right thumb. Mild tenderness in the left antecubital fossa. [employer]: Alert and oriented 3. No focal weakness. - Constitutional Vitals: Temp Pulse Resp BP Pulse Ox 98.5 F 71 20 128/88 100 09/01/18 06:13 09/01/18 11:03 09/01/18 11:03 09/01/18 11:03 09/01/18 06:13 General appearance: Present: no acute distress Results - Labs CBC & Chem 7: 08/28/18 06:24 08/29/18 06:40 Labs: Laboratory Last Values WBC 4.3 K/mm3 (4.5-11.0) L 08/28/18 06:24 RBC 3.07 M/mm3 (3.65-5.03) L 08/28/18 06:24 Hgb 10.1 gm/dl (11.8-15.2) L 08/28/18 06:24 Hct 31.1 % (35.5-45.6) L 08/28/18 06:24 MCV 102 fl (84-94) H 08/28/18 06:24 MCH 33 pg (28-32) H 08/28/18 06:24 MCHC 33 % (32-34) 08/28/18 06:24 RDW 21.9 % (13.2-15.2) H 08/28/18 06:24 Plt Count 94 K/mm3 (140-440) L 08/28/18 06:24 Lymph % (Auto) 17.0 % (13.4-35.0) 08/28/18 06:24 [place] % (Auto) 8.6 % (0.0-7.3) H 08/28/18 06:24 Eos % (Auto) 1.0 % (0.0-4.3) 08/28/18 06:24 Baso % (Auto) 0.6 % (0.0-1.8) 08/28/18 06:24 Lymph # 0.7 K/mm3 (1.2-5.4) L 08/28/18 06:24 [place] # 0.4 K/mm3 (0.0-0.8) 08/28/18 06:24 Eos # 0.0 K/mm3 (0.0-0.4) 08/28/18 06:24 Baso # 0.0 K/mm3 (0.0-0.1) 08/28/18 06:24 Seg Neutrophils % 72.8 % (40.0-70.0) H 08/28/18 06:24 Seg Neutrophils # 3.1 K/mm3 (1.8-7.7) 08/28/18 06:24 Sodium 137 mmol/L (137-145) 08/29/18 06:40 Potassium 4.4 mmol/L (3.6-5.0) 08/29/18 06:40 Chloride 100.4 mmol/L (98-107) 08/29/18 06:40 Carbon Dioxide 27 mmol/L (22-30) 08/29/18 06:40 Anion Gap 14 mmol/L 08/29/18 06:40 BUN 23 mg/dL (9-20) H 08/29/18 06:40 Creatinine 3.6 mg/dL (0.8-1.5) H 08/29/18 06:40 Estimated GFR 21 ml/min 08/29/18 06:40 BUN/Creatinine Ratio 6 % 08/29/18 06:40 Glucose 87 mg/dL (75-100) 08/29/18 06:40 POC Glucose 85 (70-105) 09/01/18 12:09 Calcium 9.3 mg/dL (8.4-10.2) 08/29/18 06:40 Total Bilirubin 0.40 mg/dL (0.1-1.2) 08/25/18 01:07 AST 27 units/L (5-40) 08/25/18 01:07 ALT 19 units/L (7-56) 08/25/18 01:07 Alkaline Phosphatase 110 units/L (35-129) 08/25/18 01:07 Total Creatine Kinase 39 units/L (55-170) L 08/28/18 06:24 CK-MB (CK-2) 3.1 ng/mL (0.0-4.0) 08/28/18 06:24 CK-MB (CK-2) Rel Index 7.9 (0-4) H 08/28/18 06:24 Troponin T 0.191 ng/mL (0.00-0.029) H* 08/28/18 06:24 Total Protein 6.1 g/dL (6.3-8.2) L 08/25/18 01:07 Albumin 2.4 g/dL (3.9-5) L 08/25/18 01:07 Albumin/Globulin Ratio 0.6 % 08/25/18 01:07 Triglycerides 49 mg/dL (2-149) 08/28/18 06:24 Cholesterol 72 mg/dL (50-199) 08/28/18 06:24 LDL Cholesterol Direct 20 mg/dL (50-130) L 08/28/18 06:24 HDL Cholesterol 44 mg/dL (40-59) 08/28/18 06:24 Cholesterol/HDL Ratio 1.63 % 08/28/18 06:24 Nutrition/Malnutrition Assess - Dietary Evaluation Nutrition/Malnutrition Findings: Nutrition Notes Start: 08/27/18 16:14 Freq: Status: Active Protocol: Document 08/31/18 10:47 TW (Rec: 08/31/18 10:50 TW [email or web address]) Co-Sign 08/31/18 10:47 LP Nutrition Notes Initial or Follow up Reassessment Current Diagnosis Coronary Artery Disease, Diabetes,Hypertension, Hyperlipidemia Other Pertinent Diagnosis ESRD on HD Current Diet Renal Labs/Tests Reviewed Pertinent Medications Reviewed Height 6 ft 1 in Weight 55.7 kg [place] Body Weight (kg) 83.63 BMI 16.2 Subjective/Other Information Pt stated he is eating about 25% of meals and only wants 1 Ensure Clear a day so he does not get sick of it. Percent of energy/protein needs met: 24%/30% Burn Absent Trauma Absent #1 Nutrition Diagnosis Malnutrition Diagnosis Progress(for reassessment Continues documentation) Is patient on ventilator? No Is Patient Ambulatory and/or Out of Bed No REE-([facility]-confined to bed) 1698.336 Kcal/Kg value to use for calculation 41 Approximate Energy Requirements Using 2284 kcal/Kg Calculation Used for Recommendations Kcal/kg Additional Notes Protein Needs: 64-80g (1.2-1. 5g/kg) Fluid needs: 1 ml/kcal Nutrition Intervention Change Diet Order: Continue current Add Supplement/Snack (indicate name/kcal Ensure Clear Mixed Marie 1 /protein ) daily Provides kCal: 240 Provides Protein (gm) 8 Goal #1 Meet at least 75% of calorie and protein needs via PO and ONS intakes Anticipated Discharge Needs: Renal diet Follow-Up By: 09/05/18 Additional Comments Follow for PO and ONS intakes
[2018-09-01] MEDS ORDERED: NACL 0.9 (PRIMING MACHINE ONLY DIALYSIS) MC ONE (17:18)
[2018-09-02] MEDS: SODIUM CHLORIDE FLUSH SYRINGE 10 ML IV PRN (00:49)
[2018-09-02] MEDS: DILAUDID IV PRN ×5 (00:49→23:00)
[2018-09-02] MEDS: APRESOLINE PO SCH ×3 (07:09→22:37)
[2018-09-02] MEDS: HumuLIN R SUB-Q SCH ×5 (07:30→22:39)
[2018-09-02] MEDS: TOPROL XL PO SCH ×2 (08:49→20:55)
[2018-09-02] MEDS: PROzac PO SCH (10:49)
[2018-09-02] MEDS: IMDUR PO SCH (10:50)
[2018-09-02] MEDS: HEMOCYTE PLUS PO SCH (10:50)
[2018-09-02] MEDS: COZAAR PO SCH (10:50)
[2018-09-02] MEDS: ELIQUIS PO SCH ×2 (10:50→22:38)
[2018-09-02] MEDS: PEPCID PO SCH ×2 (10:50→22:56)
--- NOTE | 2018-09-02 10:50 | Progress Note ---
Assessment and Plan 1. ESRD: Continue hemodialysis three times a week, TTS schedule. 2. Coronary artery disease and severe nonischemic cardiomyopathy: Medical therapy. 3. A.fib with RVR: Rate controlled. 4. DM type 2. 5. Chronic pleural effusion. 6. Anemia: Epogen if needed. 7. PAD. Subjective Date of service: 09/02/18 Interval history: Patient was examined at the bedside. Doing ok. Objective - Vital Signs Vital signs: Vital Signs - 12hr 09/01/18 09/02/18 09/02/18 23:08 00:37 04:50 Temperature 97.8 F Pulse Rate 70 50 L 76 Respiratory 20 Rate Blood Pressure 121/87 118/78 Blood Pressure [Right] O2 Sat by Pulse 99 Oximetry 09/02/18 09/02/18 09/02/18 07:09 08:21 08:49 Temperature 98.7 F Pulse Rate 71 79 79 Respiratory 20 Rate Blood Pressure 134/88 134/88 Blood Pressure 134/88 [Right] O2 Sat by Pulse 97 Oximetry - General Appearance General appearance: well-developed, appears stated age, other (not in distress, right IJ tunnel catheter) EENT: ATNC, PERRL, hearing intact, vision intact Neck: supple Respiratory: Present: Clear to Ascultation Cardiology: irregularly irregular, S1S2, no murmurs Gastrointestinal: normoactive bowel sounds Neurologic: no focal deficit, no asterixis, alert and oriented x3 Musculoskeletal: other (no edema, left below elbow amputation) - Lab 08/28/18 06:24 08/29/18 06:40 Most recent lab results Calcium 9.3 mg/dL (8.4-10.2) 08/29/18 06:40 Medications & Allergies - Medications Allergies/Adverse Reactions: Allergies aspirin Allergy (Verified 03/16/17 01:25) Unknown stomach cramps pork derived (porcine) Allergy (Verified 03/16/17 01:27) Rash venom-honey bee [bee venom (honey bee)] Allergy (Verified 03/16/17 01:27) Anaphylaxis Pork/Porcine Containing Products Adverse Reaction (Severe, Verified 02/13/17 09:31) Nausea,VOMITING Home Medications: Home Medications Medication Instructions Recorded Confirmed Last Taken Type Acetaminophen [Acetaminophen TAB] 650 mg PO Q4H PRN tablet 05/05/18 08/26/18 Unknown Rx FLUoxetine HCL [Fluoxetine HCl] 40 mg PO QDAY #30 capsule 05/05/18 08/26/18 Unknown Rx Famotidine [Pepcid] 10 mg PO BID #15 tablet 05/05/18 08/26/18 Unknown Rx Fe Fumarate/FA/Mv, Min Comb#15 1 each PO QDAY #30 capsule 05/05/18 08/26/18 Unknown Rx [Hemocyte Plus] Losartan [Cozaar] 100 mg PO QDAY 30 Days tablet 05/05/18 08/26/18 Unknown Rx Metoprolol Xl [Metoprolol 100 mg PO QDAY #30 tablet 05/05/18 08/26/18 Unknown Rx SUCCINATE ER TAB] diphenhydrAMINE [Benadryl CAP] 25 mg PO Q6H PRN #15 capsule 05/05/18 08/26/18 Unknown Rx oxyCODONE /ACETAMINOPHEN [Percocet 1 tab PO Q6H PRN #20 tablet 05/05/18 08/26/18 Unknown Rx 5/325 mg] Active Medications: Generic Name Dose Route Start Last Admin Trade Name Freq PRN Reason Stop Dose Admin Acetaminophen 650 mg 08/25/18 03:58 08/30/18 20:40 Tylenol PO 650 mg Q4H PRN Administration Pain MILD(1-3)/Fever >100.5/DOUGLAS Amlodipine Besylate 10 mg 08/27/18 10:00 09/01/18 10:51 Norvasc PO 10 mg DAILY BEAN Administration Apixaban 2.5 mg 08/29/18 22:00 09/01/18 23:07 Eliquis PO 2.5 mg Q12HR BEAN Administration Protocol Atorvastatin Calcium 40 mg 08/25/18 22:00 09/01/18 23:07 Lipitor PO 40 mg QHS BEAN Administration Clonidine HCl 0.1 mg 08/25/18 16:09 08/31/18 18:25 Catapres PO 0.1 mg Q4H PRN Administration Chest Pain Diphenhydramine HCl 25 mg 08/25/18 06:57 08/28/18 22:48 Benadryl PO 25 mg Q6H PRN Administration Itching Epoetin Prashant 10,000 unit 08/25/18 10:27 08/30/18 18:30 Procrit SUB-Q 10,000 unit KATERYNA PRN Administration hemodialysis Famotidine 10 mg 08/25/18 10:00 09/01/18 23:07 Pepcid PO 10 mg BID BEAN Administration Fluoxetine HCl 40 mg 08/25/18 10:00 09/01/18 10:50 Prozac PO 40 mg QDAY BEAN Administration Hydralazine HCl 50 mg 08/26/18 14:00 09/02/18 07:09 Apresoline PO 50 mg Q8HR BEAN Administration Hydromorphone HCl 0.5 mg 08/30/18 21:29 09/02/18 07:10 Dilaudid IV 0.5 mg Q4H PRN Administration Pain , Severe (7-10) Sodium Chloride 100 mls @ 999 mls/hr 08/28/18 11:00 Nacl 0.9% IV KATERYNA PRN Hypotension Insulin Human Regular 0 units 08/25/18 07:30 09/02/18 07:30 Humulin R SUB-Q Not Given ACHS [facility] Protocol Isosorbide Mononitrate 30 mg 08/26/18 10:00 09/01/18 10:51 Imdur PO 30 mg QDAY BEAN Administration Losartan Potassium 100 mg 08/25/18 10:00 09/01/18 11:03 Cozaar PO 100 mg QDAY BEAN Administration Magnesium Hydroxide 30 ml 08/25/18 03:58 08/27/18 09:37 Milk Of Magnesia PO 30 ml Q4H PRN Administration Constipation Metoprolol Succinate 100 mg 08/25/18 08:00 09/02/18 08:49 Toprol Xl PO 100 mg QDAY@0800 BEAN Administration Multivitamins/Iron 1 each 08/25/18 10:00 09/01/18 11:03 Hemocyte Plus PO 1 each QDAY BEAN Administration Ondansetron HCl 4 mg 08/25/18 03:58 08/30/18 16:25 Zofran IV 4 mg Q8H PRN Administration Nausea And Vomiting Sodium Chloride 10 ml 08/25/18 10:00 09/01/18 23:08 Sodium Chloride Flush Syringe 10 Ml IV 10 ml BID BEAN Administration Sodium Chloride 10 ml 08/25/18 03:58 09/02/18 00:49 Sodium Chloride Flush Syringe 10 Ml IV 10 ml PRN PRN Administration LINE FLUSH
[2018-09-02] MEDS: SODIUM CHLORIDE FLUSH SYRINGE 10 ML IV SCH ×2 (10:51→22:38)
[2018-09-02] MEDS: NORVASC PO SCH (10:51)
--- NOTE | 2018-09-02 11:07 | Progress Note ---
Assessment and Plan Assessment and plan: NSTEMI -Continue conservative management with beta jett and statin. Patient had an LHC in 2017 which showed moderate to severe calcification in the left main with minimal irregularities. LAD showed a long 50-70% stenosis of the proximal segment. LCx and RCA were angiographically normal. Cardiology consulted and recommends repeat LHC with IFR of the LAD. However, patient reportedly has history of multiple falls and extensive comorbidities. Therefore cardiology determined that the patient is a poor candidate for intervention with long-term dual antiplatelet therapy. Echocardiogram reveals severe four-chamber dilated cardiomyopathy with moderate concentric left ventricular hypertrophy and an EF of 10-15%. Chronic combined systolic and diastolic heart failure with EF of 10-15% -Stable Diabetes mellitus type 2. -Controlled Hyperlipidemia. -Continue statins. Peripheral vascular disease with ischemic ulcer of right thumb -No surgical intervention by vascular surgery DVT right subclavian vein -Continue current dose of eliquis Hypertension. -Blood pressure low normal, XLToprol dose decreased ESRD. -Continue hemodialysis per nephrology. History of chronic A. fib -HR controlled -cont on low-dose eliquis Chronic anemia -H/H stable Disposition: Prognosis is very poor. continue inpatient care, patient refused hospice care and discharge. History Interval history: Pt complaining of constipation Hospitalist Physical - Constitutional Vitals: Temp Pulse Resp BP Pulse Ox 98.7 F 69 20 126/85 97 09/02/18 08:21 09/02/18 10:51 09/02/18 08:21 09/02/18 10:51 09/02/18 08:21 General appearance: Present: no acute distress - EENT Eyes: Present: PERRL, EOM intact ENT: hearing intact, clear oral mucosa - Neck Neck: Present: supple - Respiratory Respiratory effort: normal Respiratory: bilateral: CTA - Cardiovascular Rhythm: irregularly irregular Heart Sounds: Present: S1 & S2 - Extremities Extremities: No edema - Abdominal General gastrointestinal: soft, non-tender, non-distended, normal bowel sounds - Neurologic Neurologic: other (awake and responsive) Results - Labs CBC & Chem 7: 08/28/18 06:24 08/29/18 06:40 Labs: Laboratory Last Values WBC 4.3 K/mm3 (4.5-11.0) L 08/28/18 06:24 RBC 3.07 M/mm3 (3.65-5.03) L 08/28/18 06:24 Hgb 10.1 gm/dl (11.8-15.2) L 08/28/18 06:24 Hct 31.1 % (35.5-45.6) L 08/28/18 06:24 MCV 102 fl (84-94) H 08/28/18 06:24 MCH 33 pg (28-32) H 08/28/18 06:24 MCHC 33 % (32-34) 08/28/18 06:24 RDW 21.9 % (13.2-15.2) H 08/28/18 06:24 Plt Count 94 K/mm3 (140-440) L 08/28/18 06:24 Lymph % (Auto) 17.0 % (13.4-35.0) 08/28/18 06:24 [place] % (Auto) 8.6 % (0.0-7.3) H 08/28/18 06:24 Eos % (Auto) 1.0 % (0.0-4.3) 08/28/18 06:24 Baso % (Auto) 0.6 % (0.0-1.8) 08/28/18 06:24 Lymph # 0.7 K/mm3 (1.2-5.4) L 08/28/18 06:24 [place] # 0.4 K/mm3 (0.0-0.8) 08/28/18 06:24 Eos # 0.0 K/mm3 (0.0-0.4) 08/28/18 06:24 Baso # 0.0 K/mm3 (0.0-0.1) 08/28/18 06:24 Seg Neutrophils % 72.8 % (40.0-70.0) H 08/28/18 06:24 Seg Neutrophils # 3.1 K/mm3 (1.8-7.7) 08/28/18 06:24 Sodium 137 mmol/L (137-145) 08/29/18 06:40 Potassium 4.4 mmol/L (3.6-5.0) 08/29/18 06:40 Chloride 100.4 mmol/L (98-107) 08/29/18 06:40 Carbon Dioxide 27 mmol/L (22-30) 08/29/18 06:40 Anion Gap 14 mmol/L 08/29/18 06:40 BUN 23 mg/dL (9-20) H 08/29/18 06:40 Creatinine 3.6 mg/dL (0.8-1.5) H 08/29/18 06:40 Estimated GFR 21 ml/min 08/29/18 06:40 BUN/Creatinine Ratio 6 % 08/29/18 06:40 Glucose 87 mg/dL (75-100) 08/29/18 06:40 POC Glucose 87 (70-105) 09/02/18 08:25 Calcium 9.3 mg/dL (8.4-10.2) 08/29/18 06:40 Total Bilirubin 0.40 mg/dL (0.1-1.2) 08/25/18 01:07 AST 27 units/L (5-40) 08/25/18 01:07 ALT 19 units/L (7-56) 08/25/18 01:07 Alkaline Phosphatase 110 units/L (35-129) 08/25/18 01:07 Total Creatine Kinase 39 units/L (55-170) L 08/28/18 06:24 CK-MB (CK-2) 3.1 ng/mL (0.0-4.0) 08/28/18 06:24 CK-MB (CK-2) Rel Index 7.9 (0-4) H 08/28/18 06:24 Troponin T 0.191 ng/mL (0.00-0.029) H* 08/28/18 06:24 Total Protein 6.1 g/dL (6.3-8.2) L 08/25/18 01:07 Albumin 2.4 g/dL (3.9-5) L 08/25/18 01:07 Albumin/Globulin Ratio 0.6 % 08/25/18 01:07 Triglycerides 49 mg/dL (2-149) 08/28/18 06:24 Cholesterol 72 mg/dL (50-199) 08/28/18 06:24 LDL Cholesterol Direct 20 mg/dL (50-130) L 08/28/18 06:24 HDL Cholesterol 44 mg/dL (40-59) 08/28/18 06:24 Cholesterol/HDL Ratio 1.63 % 08/28/18 06:24 Nutrition/Malnutrition Assess - Dietary Evaluation Nutrition/Malnutrition Findings: Nutrition Notes Start: 08/27/18 16:14 Freq: Status: Active Protocol: Document 08/31/18 10:47 TW (Rec: 08/31/18 10:50 TW [email or web address]) Co-Sign 08/31/18 10:47 LP Nutrition Notes Initial or Follow up Reassessment Current Diagnosis Coronary Artery Disease, Diabetes,Hypertension, Hyperlipidemia Other Pertinent Diagnosis ESRD on HD Current Diet Renal Labs/Tests Reviewed Pertinent Medications Reviewed Height 6 ft 1 in Weight 55.7 kg [place] Body Weight (kg) 83.63 BMI 16.2 Subjective/Other Information Pt stated he is eating about 25% of meals and only wants 1 Ensure Clear a day so he does not get sick of it. Percent of energy/protein needs met: 24%/30% Burn Absent Trauma Absent #1 Nutrition Diagnosis Malnutrition Diagnosis Progress(for reassessment Continues documentation) Is patient on ventilator? No Is Patient Ambulatory and/or Out of Bed No REE-([facility]-confined to bed) 1698.336 Kcal/Kg value to use for calculation 41 Approximate Energy Requirements Using 2284 kcal/Kg Calculation Used for Recommendations Kcal/kg Additional Notes Protein Needs: 64-80g (1.2-1. 5g/kg) Fluid needs: 1 ml/kcal Nutrition Intervention Change Diet Order: Continue current Add Supplement/Snack (indicate name/kcal Ensure Clear Mixed Marie 1 /protein ) daily Provides kCal: 240 Provides Protein (gm) 8 Goal #1 Meet at least 75% of calorie and protein needs via PO and ONS intakes Anticipated Discharge Needs: Renal diet Follow-Up By: 09/05/18 Additional Comments Follow for PO and ONS intakes
[2018-09-02] MEDS ORDERED: MIRALAX 3350 PO PRN (12:43)
[2018-09-02] MEDS: SENOKOT S PO SCH ×2 (14:00→22:38)
[2018-09-02] MEDS: CEPHULAC PO SCH ×2 (14:00→22:38)
[2018-09-03] MEDS: DILAUDID IV PRN ×5 (03:15→21:53)
[2018-09-03] MEDS: APRESOLINE PO SCH ×3 (05:49→22:00)
--- NOTE | 2018-09-03 08:09 | Progress Note ---
Assessment and Plan 1. ESRD: Continue hemodialysis three times a week, TTS schedule. 2. Coronary artery disease and severe nonischemic cardiomyopathy: Medical therapy. 3. A.fib with RVR: Rate controlled. 4. DM type 2. 5. Chronic pleural effusion. 6. Anemia: Epogen if needed. 7. PAD. Subjective Date of service: 09/03/18 Interval history: Patient was examined at the bedside. C/o intermittent left arm pain. Objective - Vital Signs Vital signs: Vital Signs - 12hr 09/02/18 09/02/18 09/03/18 20:55 22:37 00:00 Temperature 98.2 F Pulse Rate 61 61 64 Respiratory 18 Rate Blood Pressure 106/71 106/71 Blood Pressure 103/68 [Right] O2 Sat by Pulse 100 Oximetry 09/03/18 09/03/18 09/03/18 04:00 05:00 05:49 Temperature Pulse Rate 66 64 66 Respiratory 16 Rate Blood Pressure 110/77 Blood Pressure 110/77 [Right] O2 Sat by Pulse Oximetry 09/03/18 07:54 Temperature 97.9 F Pulse Rate 73 Respiratory 18 Rate Blood Pressure 115/81 Blood Pressure [Right] O2 Sat by Pulse 100 Oximetry - General Appearance General appearance: well-developed, appears stated age, other (not in distress, right IJ tunnel catheter) EENT: ATNC, PERRL, hearing intact, vision intact Neck: supple Respiratory: Present: Clear to Ascultation Cardiology: irregularly irregular, S1S2, no murmurs Gastrointestinal: normoactive bowel sounds Integumentary: other (right thumb tip necrosis) Neurologic: no focal deficit, no asterixis, alert and oriented x3 Musculoskeletal: other (no edema, left below elbow amputation) - Lab 09/03/18 08:31 08/29/18 06:40 Most recent lab results Calcium 9.3 mg/dL (8.4-10.2) 08/29/18 06:40 Medications & Allergies - Medications Allergies/Adverse Reactions: Allergies aspirin Allergy (Verified 03/16/17 01:25) Unknown stomach cramps pork derived (porcine) Allergy (Verified 03/16/17 01:27) Rash venom-honey bee [bee venom (honey bee)] Allergy (Verified 03/16/17 01:27) Anaphylaxis Pork/Porcine Containing Products Adverse Reaction (Severe, Verified 02/13/17 09:31) Nausea,VOMITING Home Medications: Home Medications Medication Instructions Recorded Confirmed Last Taken Type Acetaminophen [Acetaminophen TAB] 650 mg PO Q4H PRN tablet 05/05/18 08/26/18 Unknown Rx FLUoxetine HCL [Fluoxetine HCl] 40 mg PO QDAY #30 capsule 05/05/18 08/26/18 Unknown Rx Famotidine [Pepcid] 10 mg PO BID #15 tablet 05/05/18 08/26/18 Unknown Rx Fe Fumarate/FA/Mv, Min Comb#15 1 each PO QDAY #30 capsule 05/05/18 08/26/18 Unknown Rx [Hemocyte Plus] Losartan [Cozaar] 100 mg PO QDAY 30 Days tablet 05/05/18 08/26/18 Unknown Rx Metoprolol Xl [Metoprolol 100 mg PO QDAY #30 tablet 05/05/18 08/26/18 Unknown Rx SUCCINATE ER TAB] diphenhydrAMINE [Benadryl CAP] 25 mg PO Q6H PRN #15 capsule 05/05/18 08/26/18 Unknown Rx oxyCODONE /ACETAMINOPHEN [Percocet 1 tab PO Q6H PRN #20 tablet 05/05/18 08/26/18 Unknown Rx 5/325 mg] Active Medications: Generic Name Dose Route Start Last Admin Trade Name Freq PRN Reason Stop Dose Admin Acetaminophen 650 mg 08/25/18 03:58 08/30/18 20:40 Tylenol PO 650 mg Q4H PRN Administration Pain MILD(1-3)/Fever >100.5/DOUGLAS Amlodipine Besylate 10 mg 08/27/18 10:00 09/02/18 10:51 Norvasc PO 10 mg DAILY BEAN Administration Apixaban 2.5 mg 08/29/18 22:00 09/02/18 22:38 Eliquis PO 2.5 mg Q12HR BEAN Administration Protocol Atorvastatin Calcium 40 mg 08/25/18 22:00 09/02/18 22:38 Lipitor PO 40 mg QHS BEAN Administration Clonidine HCl 0.1 mg 08/25/18 16:09 08/31/18 18:25 Catapres PO 0.1 mg Q4H PRN Administration Chest Pain Diphenhydramine HCl 25 mg 08/25/18 06:57 08/28/18 22:48 Benadryl PO 25 mg Q6H PRN Administration Itching Epoetin Prashant 10,000 unit 08/25/18 10:27 08/30/18 18:30 Procrit SUB-Q 10,000 unit KATERYNA PRN Administration hemodialysis Famotidine 10 mg 08/25/18 10:00 09/02/18 22:56 Pepcid PO 10 mg BID [facility] Administration Fluoxetine HCl 40 mg 08/25/18 10:00 09/02/18 10:49 Prozac PO Not Given QDAY [facility] Hydralazine HCl 50 mg 08/26/18 14:00 09/03/18 05:49 Apresoline PO 50 mg Q8HR [facility] Administration Hydromorphone HCl 0.5 mg 08/30/18 21:29 09/03/18 03:15 Dilaudid IV 0.5 mg Q4H PRN Administration Pain , Severe (7-10) Sodium Chloride 100 mls @ 999 mls/hr 08/28/18 11:00 Nacl 0.9% IV KATERYNA PRN Hypotension Insulin Human Regular 0 units 08/25/18 07:30 09/02/18 22:39 Humulin R SUB-Q [facility] Protocol Isosorbide Mononitrate 30 mg 08/26/18 10:00 09/02/18 10:50 Imdur PO 30 mg QDAY [facility] Administration Lactulose 20 gm 09/02/18 14:00 09/02/18 22:38 Cephulac PO 09/05/18 13:59 Not Given BID [facility] Losartan Potassium 100 mg 08/25/18 10:00 09/02/18 10:50 Cozaar PO 100 mg QDAY [facility] Administration Magnesium Hydroxide 30 ml 08/25/18 03:58 08/27/18 09:37 Milk Of Magnesia PO 30 ml Q4H PRN Administration Constipation Metoprolol Succinate 50 mg 09/02/18 20:00 09/02/18 20:55 Toprol Xl PO Not Given QDAY@0800 [facility] Multivitamins/Iron 1 each 08/25/18 10:00 09/02/18 10:50 Hemocyte Plus PO 1 each QDAY [facility] Administration Ondansetron HCl 4 mg 08/25/18 03:58 08/30/18 16:25 Zofran IV 4 mg Q8H PRN Administration Nausea And Vomiting Polyethylene Glycol 17 gm 09/02/18 12:43 Miralax 3350 PO QDAY PRN Constipation Senna/Docusate Sodium 1 tab 09/02/18 14:00 09/02/18 22:38 Senokot S PO Not Given BID BEAN Sodium Chloride 10 ml 08/25/18 10:00 09/02/18 22:38 Sodium Chloride Flush Syringe 10 Ml IV 10 ml BID BEAN Administration Sodium Chloride 10 ml 08/25/18 03:58 09/02/18 00:49 Sodium Chloride Flush Syringe 10 Ml IV 10 ml PRN PRN Administration LINE FLUSH
[2018-09-03] MEDS: HumuLIN R SUB-Q SCH ×4 (08:35→21:57)
[2018-09-03] MEDS: TOPROL XL PO SCH (08:39)
[2018-09-03 08:52] LABS: Hematocrit 30.5 % (35.5-45.6); Hemoglobin 9.8 gm/dl (11.8-15.2); Mean Corpuscular HGB Conc 32 % (32-34); Mean Corpuscular Volume 104 fl (84-94); Platelet Count 140 K/mm3 (140-440); Red Blood Count 2.94 M/mm3 (3.65-5.03)
[2018-09-03 08:55] LABS: Red Cell Distribution Width 21.3 % (13.2-15.2)
[2018-09-03] MEDS: COZAAR PO SCH (10:26)
[2018-09-03] MEDS: IMDUR PO SCH (10:26)
[2018-09-03] MEDS: CEPHULAC PO SCH ×2 (10:26→21:52)
[2018-09-03] MEDS: ELIQUIS PO SCH ×2 (10:27→21:53)
[2018-09-03] MEDS: NORVASC PO SCH (10:27)
[2018-09-03] MEDS: PROzac PO SCH (10:27)
[2018-09-03] MEDS: SENOKOT S PO SCH ×2 (10:28→21:52)
[2018-09-03] MEDS: SODIUM CHLORIDE FLUSH SYRINGE 10 ML IV SCH ×2 (10:28→21:52)
[2018-09-03] MEDS: HEMOCYTE PLUS PO SCH (10:29)
[2018-09-03] MEDS: PEPCID PO SCH ×2 (11:48→21:52)
--- NOTE | 2018-09-03 14:41 | Progress Note ---
Assessment and Plan Assessment and plan: NSTEMI -Continue conservative management with beta jett and statin. Patient had an LHC in 2017 which showed moderate to severe calcification in the left main with minimal irregularities. LAD showed a long 50-70% stenosis of the proximal segment. LCx and RCA were angiographically normal. Cardiology consulted and recommended repeat LHC with IFR of the LAD. However, patient reportedly has history of multiple falls and extensive comorbidities. Therefore cardiology determined that the patient is a poor candidate for intervention with long-term dual antiplatelet therapy. Echocardiogram reveals severe four-chamber dilated cardiomyopathy with moderate concentric left ventricular hypertrophy and an EF of 10-15%. Chronic combined systolic and diastolic heart failure with EF of 10-15% -Stable Diabetes mellitus type 2. -Controlled Hyperlipidemia. -Continue statins. Peripheral vascular disease with ischemic ulcer of right thumb -No surgical intervention by vascular surgery DVT right subclavian vein -Continue current dose of eliquis Hypertension. -Blood pressure low normal, XLToprol dose decreased ESRD. -Continue hemodialysis per nephrology. History of chronic A. fib -HR controlled -cont on low-dose eliquis Chronic anemia -H/H stable -on epogen Disposition: Prognosis is very poor. continue inpatient care, patient refused hospice care or home discharge. History Interval history: Patient continues to complain of left arm pain, otherwise no new complaint. He admits to having bowel movement. Hospitalist Physical - Constitutional Vitals: Temp Pulse Resp BP Pulse Ox 98.0 F 63 18 105/73 100 09/03/18 11:50 09/03/18 14:12 09/03/18 11:50 09/03/18 14:12 09/03/18 11:50 General appearance: Present: no acute distress - EENT Eyes: Present: PERRL, EOM intact ENT: hearing intact, clear oral mucosa - Neck Neck: Present: supple - Respiratory Respiratory effort: normal Respiratory: bilateral: CTA - Cardiovascular Rhythm: irregularly irregular Heart Sounds: Present: S1 & S2 - Extremities Extremities: No edema (in BLE) Extremity abnormal: other (left forearm amputation with healing ulcer on the amputated area) - Abdominal General gastrointestinal: soft, non-tender, non-distended, normal bowel sounds - Neurologic Neurologic: CNII-XII intact Results - Labs CBC & Chem 7: 09/03/18 08:31 08/29/18 06:40 Labs: Laboratory Last Values WBC 4.6 K/mm3 (4.5-11.0) 09/03/18 08:31 RBC 2.94 M/mm3 (3.65-5.03) L 09/03/18 08:31 Hgb 9.8 gm/dl (11.8-15.2) L 09/03/18 08:31 Hct 30.5 % (35.5-45.6) L 09/03/18 08:31 MCV 104 fl (84-94) H 09/03/18 08:31 MCH 33 pg (28-32) H 09/03/18 08:31 MCHC 32 % (32-34) 09/03/18 08:31 RDW 21.3 % (13.2-15.2) H 09/03/18 08:31 Plt Count 140 K/mm3 (140-440) 09/03/18 08:31 Lymph % (Auto) 17.0 % (13.4-35.0) 08/28/18 06:24 [place] % (Auto) 8.6 % (0.0-7.3) H 08/28/18 06:24 Eos % (Auto) 1.0 % (0.0-4.3) 08/28/18 06:24 Baso % (Auto) 0.6 % (0.0-1.8) 08/28/18 06:24 Lymph # 0.7 K/mm3 (1.2-5.4) L 08/28/18 06:24 [place] # 0.4 K/mm3 (0.0-0.8) 08/28/18 06:24 Eos # 0.0 K/mm3 (0.0-0.4) 08/28/18 06:24 Baso # 0.0 K/mm3 (0.0-0.1) 08/28/18 06:24 Seg Neutrophils % 72.8 % (40.0-70.0) H 08/28/18 06:24 Seg Neutrophils # 3.1 K/mm3 (1.8-7.7) 08/28/18 06:24 Sodium 137 mmol/L (137-145) 08/29/18 06:40 Potassium 4.4 mmol/L (3.6-5.0) 08/29/18 06:40 Chloride 100.4 mmol/L (98-107) 08/29/18 06:40 Carbon Dioxide 27 mmol/L (22-30) 08/29/18 06:40 Anion Gap 14 mmol/L 08/29/18 06:40 BUN 23 mg/dL (9-20) H 08/29/18 06:40 Creatinine 3.6 mg/dL (0.8-1.5) H 08/29/18 06:40 Estimated GFR 21 ml/min 08/29/18 06:40 BUN/Creatinine Ratio 6 % 08/29/18 06:40 Glucose 87 mg/dL (75-100) 08/29/18 06:40 POC Glucose 99 (70-105) 09/03/18 11:52 Calcium 9.3 mg/dL (8.4-10.2) 08/29/18 06:40 Total Bilirubin 0.40 mg/dL (0.1-1.2) 08/25/18 01:07 AST 27 units/L (5-40) 08/25/18 01:07 ALT 19 units/L (7-56) 08/25/18 01:07 Alkaline Phosphatase 110 units/L (35-129) 08/25/18 01:07 Total Creatine Kinase 39 units/L (55-170) L 08/28/18 06:24 CK-MB (CK-2) 3.1 ng/mL (0.0-4.0) 08/28/18 06:24 CK-MB (CK-2) Rel Index 7.9 (0-4) H 08/28/18 06:24 Troponin T 0.191 ng/mL (0.00-0.029) H* 08/28/18 06:24 Total Protein 6.1 g/dL (6.3-8.2) L 08/25/18 01:07 Albumin 2.4 g/dL (3.9-5) L 08/25/18 01:07 Albumin/Globulin Ratio 0.6 % 08/25/18 01:07 Triglycerides 49 mg/dL (2-149) 08/28/18 06:24 Cholesterol 72 mg/dL (50-199) 08/28/18 06:24 LDL Cholesterol Direct 20 mg/dL (50-130) L 08/28/18 06:24 HDL Cholesterol 44 mg/dL (40-59) 08/28/18 06:24 Cholesterol/HDL Ratio 1.63 % 08/28/18 06:24 Active Medications - Current Medications Current Medications: Generic Name Dose Route Start Last Admin Trade Name Freq PRN Reason Stop Dose Admin Acetaminophen 650 mg 08/25/18 03:58 08/30/18 20:40 Tylenol PO 650 mg Q4H PRN Administration Pain MILD(1-3)/Fever >100.5/DOUGLAS Amlodipine Besylate 10 mg 08/27/18 10:00 09/03/18 10:27 Norvasc PO 10 mg DAILY BEAN Administration Apixaban 2.5 mg 08/29/18 22:00 09/03/18 10:27 Eliquis PO 2.5 mg Q12HR BEAN Administration Protocol Atorvastatin Calcium 40 mg 08/25/18 22:00 09/02/18 22:38 Lipitor PO 40 mg QHS BEAN Administration Clonidine HCl 0.1 mg 08/25/18 16:09 08/31/18 18:25 Catapres PO 0.1 mg Q4H PRN Administration Chest Pain Diphenhydramine HCl 25 mg 08/25/18 06:57 08/28/18 22:48 Benadryl PO 25 mg Q6H PRN Administration Itching Epoetin Prashant 10,000 unit 08/25/18 10:27 08/30/18 18:30 Procrit SUB-Q 10,000 unit KATERYNA PRN Administration hemodialysis Famotidine 10 mg 08/25/18 10:00 09/03/18 11:48 Pepcid PO 10 mg BID [facility] Administration Fluoxetine HCl 40 mg 08/25/18 10:00 09/03/18 10:27 Prozac PO 40 mg QDAY BEAN Administration Hydralazine HCl 50 mg 08/26/18 14:00 09/03/18 14:12 Apresoline PO Not Given Q8HR [facility] Hydromorphone HCl 0.5 mg 08/30/18 21:29 09/03/18 13:32 Dilaudid IV 0.5 mg Q4H PRN Administration Pain , Severe (7-10) Sodium Chloride 100 mls @ 999 mls/hr 08/28/18 11:00 Nacl 0.9% IV KATERYNA PRN Hypotension Insulin Human Regular 0 units 08/25/18 07:30 09/03/18 11:48 Humulin R SUB-Q Not Given ACHS BEAN Protocol Isosorbide Mononitrate 30 mg 08/26/18 10:00 09/03/18 10:26 Imdur PO 30 mg QDAY BEAN Administration Lactulose 20 gm 09/02/18 14:00 09/03/18 10:26 Cephulac PO 09/05/18 13:59 Not Given BID BEAN Losartan Potassium 100 mg 08/25/18 10:00 09/03/18 10:26 Cozaar PO 100 mg QDAY BE[facility] Administration Magnesium Hydroxide 30 ml 08/25/18 03:58 08/27/18 09:37 Milk Of Magnesia PO 30 ml Q4H PRN Administration Constipation Metoprolol Succinate 50 mg 09/02/18 20:00 09/03/18 08:39 Toprol Xl PO 50 mg QDAY@0800 [facility] Administration Multivitamins/Iron 1 each 08/25/18 10:00 09/03/18 10:29 Hemocyte Plus PO 1 each QDAY BE[facility] Administration Ondansetron HCl 4 mg 08/25/18 03:58 08/30/18 16:25 Zofran IV 4 mg Q8H PRN Administration Nausea And Vomiting Polyethylene Glycol 17 gm 09/02/18 12:43 Miralax 3350 PO QDAY PRN Constipation Senna/Docusate Sodium 1 tab 09/02/18 14:00 09/03/18 10:28 Senokot S PO Not Given BID BEAN Sodium Chloride 10 ml 08/25/18 10:00 09/03/18 10:28 Sodium Chloride Flush Syringe 10 Ml IV 10 ml BID BEAN Administration Sodium Chloride 10 ml 08/25/18 03:58 09/02/18 00:49 Sodium Chloride Flush Syringe 10 Ml IV 10 ml PRN PRN Administration LINE FLUSH Nutrition/Malnutrition Assess - Dietary Evaluation Nutrition/Malnutrition Findings: Nutrition Notes Start: 08/27/18 16:14 Freq: Status: Active Protocol: Document 08/31/18 10:47 TW (Rec: 08/31/18 10:50 TW [email or web address]) Co-Sign 08/31/18 10:47 LP Nutrition Notes Initial or Follow up Reassessment Current Diagnosis Coronary Artery Disease, Diabetes,Hypertension, Hyperlipidemia Other Pertinent Diagnosis ESRD on HD Current Diet Renal Labs/Tests Reviewed Pertinent Medications Reviewed Height 6 ft 1 in Weight 55.7 kg [place] Body Weight (kg) 83.63 BMI 16.2 Subjective/Other Information Pt stated he is eating about 25% of meals and only wants 1 Ensure Clear a day so he does not get sick of it. Percent of energy/protein needs met: 24%/30% Burn Absent Trauma Absent #1 Nutrition Diagnosis Malnutrition Diagnosis Progress(for reassessment Continues documentation) Is patient on ventilator? No Is Patient Ambulatory and/or Out of Bed No REE-([facility]-confined to bed) 1698.336 Kcal/Kg value to use for calculation 41 Approximate Energy Requirements Using 2284 kcal/Kg Calculation Used for Recommendations Kcal/kg Additional Notes Protein Needs: 64-80g (1.2-1. 5g/kg) Fluid needs: 1 ml/kcal Nutrition Intervention Change Diet Order: Continue current Add Supplement/Snack (indicate name/kcal Ensure Clear Mixed Marie 1 /protein ) daily Provides kCal: 240 Provides Protein (gm) 8 Goal #1 Meet at least 75% of calorie and protein needs via PO and ONS intakes Anticipated Discharge Needs: Renal diet Follow-Up By: 09/05/18 Additional Comments Follow for PO and ONS intakes
[2018-09-04] MEDS: DILAUDID IV PRN ×5 (01:55→21:09)
[2018-09-04] MEDS: BENADRYL PO PRN (01:59)
[2018-09-04] MEDS: APRESOLINE PO SCH ×3 (06:44→21:11)
[2018-09-04] MEDS: HumuLIN R SUB-Q SCH ×4 (08:04→22:00)
--- NOTE | 2018-09-04 08:44 | Progress Note ---
Assessment and Plan 1. ESRD: Continue hemodialysis three times a week, TTS schedule. 2. Coronary artery disease and severe nonischemic cardiomyopathy: Medical therapy. 3. A.fib with RVR: Rate controlled. 4. DM type 2. 5. Chronic pleural effusion. 6. Anemia: Epogen if needed. 7. PAD. Subjective Date of service: 09/04/18 Interval history: Patient was examined at the bedside. Doing ok. Objective - Vital Signs Vital signs: Vital Signs - 12hr 09/04/18 09/04/18 09/04/18 00:00 04:47 06:44 Temperature 98.1 F 98.1 F Pulse Rate 76 73 73 Respiratory 18 18 Rate Blood Pressure 125/81 125/81 Blood Pressure 103/61 [Right] O2 Sat by Pulse 100 95 Oximetry - General Appearance General appearance: well-developed, appears stated age, other (not in distress, right IJ tunnel catheter) EENT: ATNC, PERRL, hearing intact, vision intact Neck: supple Respiratory: Present: Clear to Ascultation Cardiology: irregularly irregular, S1S2, no murmurs Gastrointestinal: normoactive bowel sounds, no tenderness, no distended Integumentary: other (right thumb tip necrotic area) Neurologic: no focal deficit, no asterixis, alert and oriented x3 Musculoskeletal: other (left below elbow amputation) - Lab 09/03/18 08:31 08/29/18 06:40 Most recent lab results Calcium 9.3 mg/dL (8.4-10.2) 08/29/18 06:40 Medications & Allergies - Medications Allergies/Adverse Reactions: Allergies aspirin Allergy (Verified 03/16/17 01:25) Unknown stomach cramps pork derived (porcine) Allergy (Verified 03/16/17 01:27) Rash venom-honey bee [bee venom (honey bee)] Allergy (Verified 03/16/17 01:27) Anaphylaxis Pork/Porcine Containing Products Adverse Reaction (Severe, Verified 02/13/17 09:31) Nausea,VOMITING Home Medications: Home Medications Medication Instructions Recorded Confirmed Last Taken Type Acetaminophen [Acetaminophen TAB] 650 mg PO Q4H PRN tablet 05/05/18 08/26/18 Unknown Rx FLUoxetine HCL [Fluoxetine HCl] 40 mg PO QDAY #30 capsule 05/05/18 08/26/18 Unknown Rx Famotidine [Pepcid] 10 mg PO BID #15 tablet 05/05/18 08/26/18 Unknown Rx Fe Fumarate/FA/Mv, Min Comb#15 1 each PO QDAY #30 capsule 05/05/18 08/26/18 Unknown Rx [Hemocyte Plus] Losartan [Cozaar] 100 mg PO QDAY 30 Days tablet 05/05/18 08/26/18 Unknown Rx Metoprolol Xl [Metoprolol 100 mg PO QDAY #30 tablet 05/05/18 08/26/18 Unknown Rx SUCCINATE ER TAB] diphenhydrAMINE [Benadryl CAP] 25 mg PO Q6H PRN #15 capsule 05/05/18 08/26/18 Unknown Rx oxyCODONE /ACETAMINOPHEN [Percocet 1 tab PO Q6H PRN #20 tablet 05/05/18 08/26/18 Unknown Rx 5/325 mg] Active Medications: Generic Name Dose Route Start Last Admin Trade Name Freq PRN Reason Stop Dose Admin Acetaminophen 650 mg 08/25/18 03:58 08/30/18 20:40 Tylenol PO 650 mg Q4H PRN Administration Pain MILD(1-3)/Fever >100.5/DOUGLAS Amlodipine Besylate 10 mg 08/27/18 10:00 09/03/18 10:27 Norvasc PO 10 mg DAILY BEAN Administration Apixaban 2.5 mg 08/29/18 22:00 09/03/18 21:53 Eliquis PO 2.5 mg Q12HR BEAN Administration Protocol Atorvastatin Calcium 40 mg 08/25/18 22:00 09/03/18 21:52 Lipitor PO 40 mg QHS BEAN Administration Clonidine HCl 0.1 mg 08/25/18 16:09 08/31/18 18:25 Catapres PO 0.1 mg Q4H PRN Administration Chest Pain Diphenhydramine HCl 25 mg 08/25/18 06:57 09/04/18 01:59 Benadryl PO 25 mg Q6H PRN Administration Itching Epoetin Prashant 10,000 unit 08/25/18 10:27 08/30/18 18:30 Procrit SUB-Q 10,000 unit KATERYNA PRN Administration hemodialysis Famotidine 10 mg 08/25/18 10:00 09/03/18 21:52 Pepcid PO 10 mg BID BEAN Administration Fluoxetine HCl 40 mg 08/25/18 10:00 09/03/18 10:27 Prozac PO 40 mg QDAY [facility] Administration Hydralazine HCl 50 mg 08/26/18 14:00 09/04/18 06:44 Apresoline PO 50 mg Q8HR BEAN Administration Hydromorphone HCl 0.5 mg 08/30/18 21:29 09/04/18 06:44 Dilaudid IV 0.5 mg Q4H PRN Administration Pain , Severe (7-10) Sodium Chloride 100 mls @ 999 mls/hr 08/28/18 11:00 Nacl 0.9% IV KATERYNA PRN Hypotension Insulin Human Regular 0 units 08/25/18 07:30 09/03/18 21:57 Humulin R SUB-Q Not Given ACHS [facility] Protocol Isosorbide Mononitrate 30 mg 08/26/18 10:00 09/03/18 10:26 Imdur PO 30 mg QDAY [facility] Administration Lactulose 20 gm 09/02/18 14:00 09/03/18 21:52 Cephulac PO 09/05/18 13:59 Not Given BID BEAN Losartan Potassium 100 mg 08/25/18 10:00 09/03/18 10:26 Cozaar PO 100 mg QDAY [facility] Administration Magnesium Hydroxide 30 ml 08/25/18 03:58 08/27/18 09:37 Milk Of Magnesia PO 30 ml Q4H PRN Administration Constipation Metoprolol Succinate 50 mg 09/02/18 20:00 09/03/18 08:39 Toprol Xl PO 50 mg QDAY@0800 [facility] Administration Multivitamins/Iron 1 each 08/25/18 10:00 09/03/18 10:29 Hemocyte Plus PO 1 each QDAY [facility] Administration Ondansetron HCl 4 mg 08/25/18 03:58 08/30/18 16:25 Zofran IV 4 mg Q8H PRN Administration Nausea And Vomiting Polyethylene Glycol 17 gm 09/02/18 12:43 Miralax 3350 PO QDAY PRN Constipation Senna/Docusate Sodium 1 tab 09/02/18 14:00 09/03/18 21:52 Senokot S PO Not Given BID BEAN Sodium Chloride 10 ml 08/25/18 10:00 09/03/18 21:52 Sodium Chloride Flush Syringe 10 Ml IV 10 ml BID [facility]AN Administration Sodium Chloride 10 ml 08/25/18 03:58 09/02/18 00:49 Sodium Chloride Flush Syringe 10 Ml IV 10 ml PRN PRN Administration LINE FLUSH
[2018-09-04] MEDS: TOPROL XL PO SCH (09:50)
[2018-09-04] MEDS: ELIQUIS PO SCH ×2 (09:50→21:07)
[2018-09-04] MEDS: HEMOCYTE PLUS PO SCH (09:50)
[2018-09-04] MEDS: COZAAR PO SCH (09:50)
[2018-09-04] MEDS: SENOKOT S PO SCH ×2 (09:50→21:08)
[2018-09-04] MEDS: NORVASC PO SCH (09:51)
[2018-09-04] MEDS: IMDUR PO SCH (09:51)
[2018-09-04] MEDS: PEPCID PO SCH ×2 (09:51→21:07)
[2018-09-04] MEDS: PROzac PO SCH (09:51)
[2018-09-04] MEDS: CEPHULAC PO SCH ×2 (10:05→21:08)
--- NOTE | 2018-09-04 11:59 | Progress Note ---
Assessment and Plan Assessment and plan: NSTEMI -Continue conservative management with beta jett and statin. Patient had an LHC in 2017 which showed moderate to severe calcification in the left main with minimal irregularities. LAD showed a long 50-70% stenosis of the proximal segment. LCx and RCA were angiographically normal. Cardiology consulted and recommended repeat LHC with IFR of the LAD. However, patient reportedly has history of multiple falls and extensive comorbidities. Therefore, cardiology determined that the patient is a poor candidate for intervention with long-term dual antiplatelet therapy. Echocardiogram reveals severe four-chamber dilated cardiomyopathy with moderate concentric left ventricular hypertrophy and an EF of 10-15%. Chronic combined systolic and diastolic heart failure with EF of 10-15% -Stable Diabetes mellitus type 2. -Controlled Hyperlipidemia. -Continue statins. Peripheral vascular disease with ischemic ulcer of right thumb -No surgical intervention by vascular surgery DVT right subclavian vein -Continue current dose of eliquis Hypertension. -Blood pressure low normal, XLToprol dose decreased ESRD. -Continue hemodialysis per nephrology. History of chronic A. fib -HR controlled -cont on low-dose eliquis Chronic anemia -H/H stable -on epogen Disposition: Prognosis is very poor. continue inpatient care, patient refused hospice care or home discharge. History Interval history: No new issues overnight. Hospitalist Physical - Constitutional Vitals: Temp Pulse Resp BP Pulse Ox 97.8 F 65 18 121/79 100 09/04/18 11:50 09/04/18 11:50 09/04/18 11:50 09/04/18 11:50 09/04/18 11:50 General appearance: Present: no acute distress - EENT Eyes: Present: PERRL, EOM intact ENT: hearing intact, clear oral mucosa, dentition normal - Neck Neck: Present: supple, normal ROM - Respiratory Respiratory effort: normal Respiratory: bilateral: CTA - Cardiovascular Rhythm: regular Heart Sounds: Present: S1 & S2. Absent: gallop, rub - Extremities Extremities: no ischemia, No edema, Full ROM - Abdominal General gastrointestinal: soft, non-tender, non-distended, normal bowel sounds - Integumentary Integumentary: Present: clear, warm, dry - Neurologic Neurologic: CNII-XII intact, moves all extremities Results - Labs CBC & Chem 7: 09/03/18 08:31 08/29/18 06:40 Labs: Laboratory Last Values WBC 4.6 K/mm3 (4.5-11.0) 09/03/18 08:31 RBC 2.94 M/mm3 (3.65-5.03) L 09/03/18 08:31 Hgb 9.8 gm/dl (11.8-15.2) L 09/03/18 08:31 Hct 30.5 % (35.5-45.6) L 09/03/18 08:31 MCV 104 fl (84-94) H 09/03/18 08:31 MCH 33 pg (28-32) H 09/03/18 08:31 MCHC 32 % (32-34) 09/03/18 08:31 RDW 21.3 % (13.2-15.2) H 09/03/18 08:31 Plt Count 140 K/mm3 (140-440) 09/03/18 08:31 Lymph % (Auto) 17.0 % (13.4-35.0) 08/28/18 06:24 [place] % (Auto) 8.6 % (0.0-7.3) H 08/28/18 06:24 Eos % (Auto) 1.0 % (0.0-4.3) 08/28/18 06:24 Baso % (Auto) 0.6 % (0.0-1.8) 08/28/18 06:24 Lymph # 0.7 K/mm3 (1.2-5.4) L 08/28/18 06:24 [place] # 0.4 K/mm3 (0.0-0.8) 08/28/18 06:24 Eos # 0.0 K/mm3 (0.0-0.4) 08/28/18 06:24 Baso # 0.0 K/mm3 (0.0-0.1) 08/28/18 06:24 Seg Neutrophils % 72.8 % (40.0-70.0) H 08/28/18 06:24 Seg Neutrophils # 3.1 K/mm3 (1.8-7.7) 08/28/18 06:24 Sodium 137 mmol/L (137-145) 08/29/18 06:40 Potassium 4.4 mmol/L (3.6-5.0) 08/29/18 06:40 Chloride 100.4 mmol/L (98-107) 08/29/18 06:40 Carbon Dioxide 27 mmol/L (22-30) 08/29/18 06:40 Anion Gap 14 mmol/L 08/29/18 06:40 BUN 23 mg/dL (9-20) H 08/29/18 06:40 Creatinine 3.6 mg/dL (0.8-1.5) H 08/29/18 06:40 Estimated GFR 21 ml/min 08/29/18 06:40 BUN/Creatinine Ratio 6 % 08/29/18 06:40 Glucose 87 mg/dL (75-100) 08/29/18 06:40 POC Glucose 91 (70-105) 09/04/18 08:09 Calcium 9.3 mg/dL (8.4-10.2) 08/29/18 06:40 Total Bilirubin 0.40 mg/dL (0.1-1.2) 08/25/18 01:07 AST 27 units/L (5-40) 08/25/18 01:07 ALT 19 units/L (7-56) 08/25/18 01:07 Alkaline Phosphatase 110 units/L (35-129) 08/25/18 01:07 Total Creatine Kinase 39 units/L (55-170) L 08/28/18 06:24 CK-MB (CK-2) 3.1 ng/mL (0.0-4.0) 08/28/18 06:24 CK-MB (CK-2) Rel Index 7.9 (0-4) H 08/28/18 06:24 Troponin T 0.191 ng/mL (0.00-0.029) H* 08/28/18 06:24 Total Protein 6.1 g/dL (6.3-8.2) L 08/25/18 01:07 Albumin 2.4 g/dL (3.9-5) L 08/25/18 01:07 Albumin/Globulin Ratio 0.6 % 08/25/18 01:07 Triglycerides 49 mg/dL (2-149) 08/28/18 06:24 Cholesterol 72 mg/dL (50-199) 08/28/18 06:24 LDL Cholesterol Direct 20 mg/dL (50-130) L 08/28/18 06:24 HDL Cholesterol 44 mg/dL (40-59) 08/28/18 06:24 Cholesterol/HDL Ratio 1.63 % 08/28/18 06:24 Active Medications - Current Medications Current Medications: Generic Name Dose Route Start Last Admin Trade Name Freq PRN Reason Stop Dose Admin Acetaminophen 650 mg 08/25/18 03:58 08/30/18 20:40 Tylenol PO 650 mg Q4H PRN Administration Pain MILD(1-3)/Fever >100.5/DOUGLAS Amlodipine Besylate 10 mg 08/27/18 10:00 09/04/18 09:51 Norvasc PO 10 mg DAILY BEAN Administration Apixaban 2.5 mg 08/29/18 22:00 09/04/18 09:50 Eliquis PO 2.5 mg Q12HR BEAN Administration Protocol Atorvastatin Calcium 40 mg 08/25/18 22:00 09/03/18 21:52 Lipitor PO 40 mg QHS BEAN Administration Clonidine HCl 0.1 mg 08/25/18 16:09 08/31/18 18:25 Catapres PO 0.1 mg Q4H PRN Administration Chest Pain Diphenhydramine HCl 25 mg 08/25/18 06:57 09/04/18 01:59 Benadryl PO 25 mg Q6H PRN Administration Itching Epoetin Prashant 10,000 unit 08/25/18 10:27 08/30/18 18:30 Procrit SUB-Q 10,000 unit KATERYNA PRN Administration hemodialysis Famotidine 10 mg 08/25/18 10:00 09/04/18 09:51 Pepcid PO 10 mg BID BEAN Administration Fluoxetine HCl 40 mg 08/25/18 10:00 09/04/18 09:51 Prozac PO 40 mg QDAY BEAN Administration Hydralazine HCl 50 mg 08/26/18 14:00 09/04/18 06:44 Apresoline PO 50 mg Q8HR BEAN Administration Hydromorphone HCl 0.5 mg 08/30/18 21:29 09/04/18 06:44 Dilaudid IV 0.5 mg Q4H PRN Administration Pain , Severe (7-10) Sodium Chloride 100 mls @ 999 mls/hr 08/28/18 11:00 Nacl 0.9% IV KATERYNA PRN Hypotension Insulin Human Regular 0 units 08/25/18 07:30 09/03/18 21:57 Humulin R SUB-Q Not Given ACHS [facility] Protocol Isosorbide Mononitrate 30 mg 08/26/18 10:00 09/04/18 09:51 Imdur PO 30 mg QDAY BEAN Administration Lactulose 20 gm 09/02/18 14:00 09/03/18 21:52 Cephulac PO 09/05/18 13:59 Not Given BID BEAN Losartan Potassium 100 mg 08/25/18 10:00 09/04/18 09:50 Cozaar PO 100 mg QDAY BEAN Administration Magnesium Hydroxide 30 ml 08/25/18 03:58 08/27/18 09:37 Milk Of Magnesia PO 30 ml Q4H PRN Administration Constipation Metoprolol Succinate 50 mg 09/02/18 20:00 09/04/18 09:50 Toprol Xl PO 50 mg QDAY@0800 BEAN Administration Multivitamins/Iron 1 each 08/25/18 10:00 09/04/18 09:50 Hemocyte Plus PO 1 each QDAY BEAN Administration Ondansetron HCl 4 mg 08/25/18 03:58 08/30/18 16:25 Zofran IV 4 mg Q8H PRN Administration Nausea And Vomiting Polyethylene Glycol 17 gm 09/02/18 12:43 Miralax 3350 PO QDAY PRN Constipation Senna/Docusate Sodium 1 tab 09/02/18 14:00 09/04/18 09:50 Senokot S PO 1 tab BID BEAN Administration Sodium Chloride 10 ml 08/25/18 10:00 09/03/18 21:52 Sodium Chloride Flush Syringe 10 Ml IV 10 ml BID BEAN Administration Sodium Chloride 10 ml 08/25/18 03:58 09/02/18 00:49 Sodium Chloride Flush Syringe 10 Ml IV 10 ml PRN PRN Administration LINE FLUSH Nutrition/Malnutrition Assess - Dietary Evaluation Nutrition/Malnutrition Findings: Nutrition Notes Start: 08/27/18 16:14 Freq: Status: Active Protocol: Document 08/31/18 10:47 TW (Rec: 08/31/18 10:50 TW [email or web address]) Co-Sign 08/31/18 10:47 LP Nutrition Notes Initial or Follow up Reassessment Current Diagnosis Coronary Artery Disease, Diabetes,Hypertension, Hyperlipidemia Other Pertinent Diagnosis ESRD on HD Current Diet Renal Labs/Tests Reviewed Pertinent Medications Reviewed Height 6 ft 1 in Weight 55.7 kg [place] Body Weight (kg) 83.63 BMI 16.2 Subjective/Other Information Pt stated he is eating about 25% of meals and only wants 1 Ensure Clear a day so he does not get sick of it. Percent of energy/protein needs met: 24%/30% Burn Absent Trauma Absent #1 Nutrition Diagnosis Malnutrition Diagnosis Progress(for reassessment Continues documentation) Is patient on ventilator? No Is Patient Ambulatory and/or Out of Bed No REE-([facility]-confined to bed) 1698.336 Kcal/Kg value to use for calculation 41 Approximate Energy Requirements Using 2284 kcal/Kg Calculation Used for Recommendations Kcal/kg Additional Notes Protein Needs: 64-80g (1.2-1. 5g/kg) Fluid needs: 1 ml/kcal Nutrition Intervention Change Diet Order: Continue current Add Supplement/Snack (indicate name/kcal Ensure Clear Mixed Marie 1 /protein ) daily Provides kCal: 240 Provides Protein (gm) 8 Goal #1 Meet at least 75% of calorie and protein needs via PO and ONS intakes Anticipated Discharge Needs: Renal diet Follow-Up By: 09/05/18 Additional Comments Follow for PO and ONS intakes
[2018-09-04] MEDS ORDERED: NACL 0.9 (PRIMING MACHINE ONLY DIALYSIS) MC ONE (15:02)
[2018-09-04] MEDS: PROCRIT SUB-Q PRN (18:25)
[2018-09-04] MEDS: SODIUM CHLORIDE FLUSH SYRINGE 10 ML IV SCH (21:08)
[2018-09-05] MEDS: DILAUDID IV PRN ×3 (01:57→10:10)
[2018-09-05] MEDS: APRESOLINE PO SCH ×2 (06:11→14:50)
--- NOTE | 2018-09-05 08:06 | Progress Note ---
Assessment and Plan 1. ESRD: Continue hemodialysis three times a week, TTS schedule. 2. Coronary artery disease and severe nonischemic cardiomyopathy: Medical therapy. 3. A.fib with RVR: Rate controlled. 4. DM type 2. 5. Chronic pleural effusion. 6. Anemia: Epogen if needed. 7. PAD. Subjective Date of service: 09/05/18 Interval history: Patient was examined at the bedside. Doing ok. Objective - Vital Signs Vital signs: Vital Signs - 12hr 09/04/18 09/04/18 09/05/18 21:11 23:05 05:35 Temperature 98.3 F 99.0 F Pulse Rate 74 81 75 Respiratory 16 20 Rate Blood Pressure 122/87 144/89 O2 Sat by Pulse 99 87 Oximetry 09/05/18 06:11 Temperature Pulse Rate 81 Respiratory Rate Blood Pressure 122/87 O2 Sat by Pulse Oximetry - General Appearance General appearance: well-developed, appears stated age, other (not in distress, right IJ tunnel catheter) EENT: ATNC, PERRL, hearing intact, vision intact Neck: supple Respiratory: Present: Clear to Ascultation Cardiology: irregularly irregular, S1S2, no murmurs Gastrointestinal: normoactive bowel sounds, no tenderness, no distended Integumentary: warm and dry Neurologic: no focal deficit, no asterixis, alert and oriented x3 Musculoskeletal: other (no edema, left below elbow amputation) - Lab 09/03/18 08:31 08/29/18 06:40 Most recent lab results Calcium 9.3 mg/dL (8.4-10.2) 08/29/18 06:40 Medications & Allergies - Medications Allergies/Adverse Reactions: Allergies aspirin Allergy (Verified 03/16/17 01:25) Unknown stomach cramps pork derived (porcine) Allergy (Verified 03/16/17 01:27) Rash venom-honey bee [bee venom (honey bee)] Allergy (Verified 03/16/17 01:27) Anaphylaxis Pork/Porcine Containing Products Adverse Reaction (Severe, Verified 02/13/17 09:31) Nausea,VOMITING Home Medications: Home Medications Medication Instructions Recorded Confirmed Last Taken Type Acetaminophen [Acetaminophen TAB] 650 mg PO Q4H PRN tablet 05/05/18 08/26/18 Unknown Rx diphenhydrAMINE [Benadryl CAP] 25 mg PO Q6H PRN #15 capsule 05/05/18 08/26/18 Unknown Rx Apixaban [Eliquis] 2.5 mg PO Q12HR #60 tablet 09/05/18 Unknown Rx AtorvaSTATin [Lipitor] 40 mg PO QHS #30 tablet 09/05/18 Unknown Rx Epoetin Prashant 10,000 Unit [Procrit] 10,000 unit SUB-Q KATERYNA PRN #30 vial 09/05/18 Unknown Rx FLUoxetine HCL [Fluoxetine HCl] 40 mg PO QDAY #30 capsule 09/05/18 Unknown Rx Famotidine [Pepcid] 10 mg PO BID #15 tablet 09/05/18 Unknown Rx Fe Fumarate/FA/Mv, Min Comb#15 1 each PO QDAY #30 capsule 09/05/18 Unknown Rx [Hemocyte Plus] ISOSORBIDE MONOnitrate [Imdur ER] 30 mg PO QDAY #30 tablet 09/05/18 Unknown Rx Lactulose [Cephulac] 20 gm PO BID oral.liqd 09/05/18 Unknown Rx Losartan [Cozaar] 100 mg PO QDAY 30 Days tablet 09/05/18 Unknown Rx Metoprolol Xl [Metoprolol 100 mg PO QDAY #30 tablet 09/05/18 Unknown Rx SUCCINATE ER TAB] Polyethylene Glycol 3350 [Miralax 17 gm PO QDAY PRN powd.pack 09/05/18 Unknown Rx 3350] Sennosides/Docusate [Senokot S] 1 tab PO BID tablet 09/05/18 Unknown Rx amLODIPine [Norvasc] 10 mg PO DAILY #30 tablet 09/05/18 Unknown Rx hydrALAZINE [Apresoline TAB] 50 mg PO Q8HR #90 tablet 09/05/18 Unknown Rx oxyCODONE /ACETAMINOPHEN [Percocet 1 tab PO Q6H PRN #20 tablet 09/05/18 Unknown Rx 5/325 mg] Active Medications: Generic Name Dose Route Start Last Admin Trade Name Freq PRN Reason Stop Dose Admin Acetaminophen 650 mg 08/25/18 03:58 08/30/18 20:40 Tylenol PO 650 mg Q4H PRN Administration Pain MILD(1-3)/Fever >100.5/DOUGLAS Amlodipine Besylate 10 mg 08/27/18 10:00 09/04/18 09:51 Norvasc PO 10 mg DAILY BEAN Administration Apixaban 2.5 mg 08/29/18 22:00 09/04/18 21:07 Eliquis PO 2.5 mg Q12HR BEAN Administration Protocol Atorvastatin Calcium 40 mg 08/25/18 22:00 09/04/18 21:07 Lipitor PO 40 mg QHS BEAN Administration Clonidine HCl 0.1 mg 08/25/18 16:09 08/31/18 18:25 Catapres PO 0.1 mg Q4H PRN Administration Chest Pain Diphenhydramine HCl 25 mg 08/25/18 06:57 09/04/18 01:59 Benadryl PO 25 mg Q6H PRN Administration Itching Epoetin Prashant 10,000 unit 08/25/18 10:27 09/04/18 18:25 Procrit SUB-Q 10,000 unit KATERYNA PRN Administration hemodialysis Famotidine 10 mg 08/25/18 10:00 09/04/18 21:07 Pepcid PO 10 mg BID BEAN Administration Fluoxetine HCl 40 mg 08/25/18 10:00 09/04/18 09:51 Prozac PO 40 mg QDAY BEAN Administration Hydralazine HCl 50 mg 08/26/18 14:00 09/05/18 06:11 Apresoline PO 50 mg Q8HR BEAN Administration Hydromorphone HCl 0.5 mg 08/30/18 21:29 09/05/18 06:10 Dilaudid IV 0.5 mg Q4H PRN Administration Pain , Severe (7-10) Sodium Chloride 100 mls @ 999 mls/hr 08/28/18 11:00 Nacl 0.9% IV KATERYNA PRN Hypotension Insulin Human Regular 0 units 08/25/18 07:30 09/04/18 22:00 Humulin R SUB-Q Not Given ACHS [facility] Protocol Isosorbide Mononitrate 30 mg 08/26/18 10:00 09/04/18 09:51 Imdur PO 30 mg QDAY BEAN Administration Lactulose 20 gm 09/02/18 14:00 09/04/18 21:08 Cephulac PO 09/05/18 13:59 Not Given BID BEAN Losartan Potassium 100 mg 08/25/18 10:00 09/04/18 09:50 Cozaar PO 100 mg QDAY BEAN Administration Magnesium Hydroxide 30 ml 08/25/18 03:58 08/27/18 09:37 Milk Of Magnesia PO 30 ml Q4H PRN Administration Constipation Metoprolol Succinate 50 mg 09/02/18 20:00 09/04/18 09:50 Toprol Xl PO 50 mg QDAY@0800 BEAN Administration Multivitamins/Iron 1 each 08/25/18 10:00 09/04/18 09:50 Hemocyte Plus PO 1 each QDAY BEAN Administration Ondansetron HCl 4 mg 08/25/18 03:58 08/30/18 16:25 Zofran IV 4 mg Q8H PRN Administration Nausea And Vomiting Polyethylene Glycol 17 gm 09/02/18 12:43 Miralax 3350 PO QDAY PRN Constipation Senna/Docusate Sodium 1 tab 09/02/18 14:00 09/04/18 21:08 Senokot S PO Not Given BID BEAN Sodium Chloride 10 ml 08/25/18 10:00 09/04/18 21:08 Sodium Chloride Flush Syringe 10 Ml IV 10 ml BID BEAN Administration Sodium Chloride 10 ml 08/25/18 03:58 09/02/18 00:49 Sodium Chloride Flush Syringe 10 Ml IV 10 ml PRN PRN Administration LINE FLUSH
[2018-09-05] MEDS: COZAAR PO SCH (09:39)
[2018-09-05] MEDS: PROzac PO SCH (09:39)
[2018-09-05] MEDS: HEMOCYTE PLUS PO SCH (09:39)
[2018-09-05] MEDS: TOPROL XL PO SCH (09:39)
[2018-09-05] MEDS: SODIUM CHLORIDE FLUSH SYRINGE 10 ML IV SCH (09:39)
[2018-09-05] MEDS: SENOKOT S PO SCH (09:40)
[2018-09-05] MEDS: ELIQUIS PO SCH (09:40)
[2018-09-05] MEDS: CEPHULAC PO SCH (09:40)
[2018-09-05] MEDS: PEPCID PO SCH (09:40)
[2018-09-05] MEDS: NORVASC PO SCH (09:40)
[2018-09-05] MEDS: IMDUR PO SCH (09:40)
[2018-09-05] MEDS: HumuLIN R SUB-Q SCH ×2 (09:44→12:52)
--- NOTE | 2018-09-05 12:16 | Discharge Summary ---
Providers - Providers Date of Admission: 08/25/18 02:23 Date of discharge: 09/05/18 Attending physician: GLADIS DONG 08/25/18 07:03 Consult to Physician [CONS] Routine Comment: DR DIAMOND NOTIFIED 08 Consulting Provider: LYRIC DIAMOND Physician Instructions: Reason For Exam: hemodialysis 08/26/18 08:10 Consult to Wound/ET Nurse [CONS] Routine Reason For Exam: wound eval 08/29/18 08:23 Consult to Physician [CONS] Routine Comment: Consulting Provider: DIONY PAYAN Physician Instructions: Reason For Exam: dark discoloration of the tip of the right thumb Primary care physician: ARSLAN PIMENTEL Hospitalization Reason for admission: cp Condition: Critical Hospital course: Patient is a 71-year-old male with past medical history of DM type II, hypertension, end-stage renal disease on hemodialysis, CAD, hyperlipidemia, PVD, who was brought to the ER by EMS with complaints of chest pain for about 1-2 hours before arriving. Patient had an LHC 2017 showing moderate to severe calcification in the left main with minimal irregularities. LAD showed a long 50-70% stenosis of the proximal segment. LCx and RCA were angiographically normal. Cardiology consulted and recommends repeat LHC with IFR of the LAD. However, patient reportedly has history of multiple falls and extensive comor bidities. Therefore cardiology feels the patient is a poor candidate for intervention with long-term dual antiplatelet therapy. Echocardiogram revealed severe four-chamber dilated cardiomyopathy with moderate concentric left ventricular hypertrophy and an EF of 10-15%. Other complications during hospital stay included an ulceration of his right upper extremity. 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 Additionally, 2 months ago, he developed a painful ulceration on the right thumb near the nail. Vascular surgery evaluated this during the hospitalization and felt that it was likely an ischemic ulcer of the right thumb. However, the ischemia is probably related to small vessel disease intrinsic to the thumb itself. Macrovascular perfusion appears to be preserved. Upper extremity arterial studies were found to be negative. Upper extremity arterial study on the right shows patent vessels down to the level of the hand. The radial and ulnar arteries are heavily calcified but multiphasic waveforms are seen throughout. Pathology likely related to small vessel calcification which is not amenable to surgical intervention. Also, patient was noted to have DVT of the right subclavian vein for which she has continued treatment with eliquis. A hospice consultation was placed given the patient's severe dilated cardiomyopathy/end-stage systolic heart failure and severe peripheral vascular disease. Case management met with the patient and patient opted to be discharged home with home health and is willing for hospice rep. to visit with him and his in the home. Dedicated discharge time 38 minutes. Disposition: [id number] TO HOME OR SELFCARE Time spent for discharge: 38 - Discharge Diagnoses (1) Afib Status: Acute Qualifiers: Atrial fibrillation type: unspecified Qualified Code(s): I48.91 - Unspecified atrial fibrillation (2) Chest pain Status: Acute Qualifiers: Chest pain type: unspecified Qualified Code(s): R07.9 - Chest pain, unspecified (3) ESRD (end stage renal disease) on dialysis Status: Acute (4) ESRD needing dialysis Status: Chronic (5) Ulcer of upper extremity Status: Chronic Qualifiers: Non-pressure ulcer stage: limited to breakdown of skin Qualified Code(s): L98.491 - Non-pressure chronic ulcer of skin of other sites limited to breakdown of skin (6) Acute exacerbation of CHF (congestive heart failure) Status: Acute Qualifiers: Heart failure type: combined systolic and diastolic Qualified Code(s): I50.43 - Acute on chronic combined systolic (congestive) and diastolic (congestive) heart failure (7) HTN (hypertension) Status: Acute (8) Cardiomyopathy Status: Chronic Qualifiers: Cardiomyopathy type: dilated Qualified Code(s): I42.0 - Dilated cardiomyopathy (9) HTN (hypertension) Status: Chronic Qualifiers: Hypertension type: essential hypertension Qualified Code(s): I10 - Essential (primary) hypertension (10) IDDM (insulin dependent diabetes mellitus) Status: Chronic Core Measure Documentation - Palliative Care Palliative Care/ Comfort Measures: Not Applicable - Core Measures Any of the following diagnoses?: none Exam - Constitutional Vitals: Temp Pulse Resp BP Pulse Ox 98.2 F 81 20 122/87 87 09/05/18 10:05 09/05/18 06:11 09/05/18 05:35 09/05/18 06:11 09/05/18 05:35 General appearance: Present: no acute distress, well-nourished - EENT Eyes: Present: PERRL ENT: hearing intact, clear oral mucosa - Neck Neck: Present: supple, normal ROM - Respiratory Respiratory effort: normal Respiratory: bilateral: CTA - Cardiovascular Heart Sounds: Present: S1 & S2. Absent: rub, click - Extremities Extremities: pulses symmetrical, No edema Peripheral Pulses: within normal limits - Abdominal General gastrointestinal: Present: soft, non-tender, non-distended, normal bowel sounds Male genitourinary: Present: normal - Integumentary Integumentary: Present: clear, warm, dry - Musculoskeletal Musculoskeletal: gait normal, strength equal bilaterally - Psychiatric Psychiatric: appropriate mood/affect, intact judgment & insight - Neurologic Neurologic: CNII-XII intact, moves all extremities Plan Activity: no restrictions Weight Bearing Status: Full Weight Bearing Diet: low fat, low cholesterol, low salt, diabetic, renal [facility] - [facility]5 Days Prescriptions: hydrALAZINE [Apresoline TAB] 50 mg PO Q8HR #90 tablet Losartan [Cozaar] 100 mg PO QDAY 30 Days tablet Apixaban [Eliquis] 2.5 mg PO Q12HR #60 tablet FLUoxetine HCL [Fluoxetine HCl] 40 mg PO QDAY #30 capsule Fe Fumarate/FA/Mv, Min Comb#15 [Hemocyte Plus] 1 each PO QDAY #30 capsule ISOSORBIDE MONOnitrate [Imdur ER] 30 mg PO QDAY #30 tablet AtorvaSTATin [Lipitor] 40 mg PO QHS #30 tablet Metoprolol Xl [Metoprolol SUCCINATE ER TAB] 100 mg PO QDAY #30 tablet amLODIPine [Norvasc] 10 mg PO DAILY #30 tablet Famotidine [Pepcid] 10 mg PO BID #15 tablet oxyCODONE /ACETAMINOPHEN [Percocet 5/325 mg] 1 tab PO Q6H PRN #20 tablet PRN Reason: Pain , Severe (7-10) Epoetin Prashant 10,000 Unit [Procrit] 10,000 unit SUB-Q KATERYNA PRN #30 vial PRN Reason: Hemodialysis
[2018-09-05 12:29] VITALS: BP 113/83
== END 2018-09-05 17:44 | disposition hospice, home (50) | DRG 280 ==
LOC: EDBD → ED 23:58 → EDBD 08-25 02:23 → 4A 08-25 02:23
PROVIDERS: ADMIT Internal Medicine; ATTEND Hospitalist
PROC: 5A1D70Z Performance of Urinary Filtration, Intermittent, Less than 6 Hours Per Day (ICD-10-PCS; principal; 2018-08-25)
PROC: 5A1D70Z Performance of Urinary Filtration, Intermittent, Less than 6 Hours Per Day (ICD-10-PCS; 2018-08-28)
PROC: 5A1D70Z Performance of Urinary Filtration, Intermittent, Less than 6 Hours Per Day (ICD-10-PCS; 2018-08-30)
PROC: 5A1D70Z Performance of Urinary Filtration, Intermittent, Less than 6 Hours Per Day (ICD-10-PCS; 2018-09-01)
PROC: 5A1D70Z Performance of Urinary Filtration, Intermittent, Less than 6 Hours Per Day (ICD-10-PCS; 2018-09-04)
DX: I21.4 Non-ST elevation (NSTEMI) myocardial infarction (principal); N18.6 End stage renal disease; I50.43 Acute on chronic combined systolic (congestive) and diastolic (congestive) heart failure; I13.2 Hypertensive heart and chronic kidney disease with heart failure and with stage 5 chronic kidney disease, or end stage renal disease; R07.9 Chest pain, unspecified; E11.22 Type 2 diabetes mellitus with diabetic chronic kidney disease; F41.9 Anxiety disorder, unspecified; M94.0 Chondrocostal junction syndrome [Tietze]; I25.10 Atherosclerotic heart disease of native coronary artery without angina pectoris; L98.491 Non-pressure chronic ulcer of skin of other sites limited to breakdown of skin; I42.0 Dilated cardiomyopathy; D69.6 Thrombocytopenia, unspecified; I48.2 Chronic atrial fibrillation; E11.52 Type 2 diabetes mellitus with diabetic peripheral angiopathy with gangrene; I82.621 Acute embolism and thrombosis of deep veins of right upper extremity; I96 Gangrene, not elsewhere classified; E78.5 Hyperlipidemia, unspecified; Z88.6 Allergy status to analgesic agent; Z91.030 Bee allergy status; Z88.8 Allergy status to other drugs, medicaments and biological substances; Z91.018 Allergy to other foods; Z79.899 Other long term (current) drug therapy; Z79.01 Long term (current) use of anticoagulants; Z89.212 Acquired absence of left upper limb below elbow; Z79.84 Long term (current) use of oral hypoglycemic drugs; Z99.2 Dependence on renal dialysis
CPT/HCPCS: 36415; 71045; 80048; 80053; 80061; 82550; 82553; 82962; 84484; 85025; 85027; 93005; 93010; 93306; 93970; 94760; G0378; A9270-GY; J0885; J1170; J1815; J2270; J2405; J7030

== ENCOUNTER 2018-09-21 20:49 | Inpatient (IN) | payer MEDICAID ==
--- NOTE | 2018-09-21 21:15 | Emergency Department Report ---
ED Chest Pain HPI - General Chief Complaint: Chest Pain Stated Complaint: CHEST PAIN Time Seen by Provider: 09/21/18 20:53 Source: patient, EMS Mode of arrival: Stretcher Limitations: Physical Limitation - History of Present Illness Initial Comments: 63-year-old male with history of A. fib, ESRD, CHF, CAD presents to ED with acute exacerbation of chronic left-sided chest pain. Patient states pain is sharp in nature and began this evening, approximately 2 hours ago. Patient states no relief with changing positions. Reports associated shortness of breath, for which he states he had to use his oxygen at home. Patient was recently seen for same and discharged approximately 2 weeks ago on 09/05/18. Cardiology recommended medical management for patient's chest pain. Patient was found to have nonobstructive CAD after undergoing left heart cath in 2017. Due to his multiple severe comorbidities, patient was found by cardiology to be a poor candidate for further cardiac invasive management. Patient reports he was dialyzed yesterday. MD Complaint: chest pain -: This evening Onset: during rest Pain Location: left chest Pain Radiation: none Severity: moderate Severity scale (0 -10): 8 Quality: sharp Consistency: constant Improves With: nothing Worsens With: nothing re: dyspnea. denies: nausea, vomting, diaphoresis Treatments Prior to Arrival: none - Related Data Previous Rx's Medication Instructions Recorded Last Taken Type Acetaminophen [Acetaminophen TAB] 650 mg PO Q4H PRN tablet 05/05/18 09/21/18 Rx diphenhydrAMINE [Benadryl CAP] 25 mg PO Q6H PRN #15 capsule 05/05/18 09/21/18 Rx Apixaban [Eliquis] 2.5 mg PO Q12HR #60 tablet 09/05/18 09/21/18 Rx AtorvaSTATin [Lipitor] 40 mg PO QHS #30 tablet 09/05/18 09/21/18 Rx Epoetin Prashant 10,000 Unit [Procrit] 10,000 unit SUB-Q KATERYNA PRN #30 vial 09/05/18 09/21/18 Rx FLUoxetine HCL [Fluoxetine HCl] 40 mg PO QDAY #30 capsule 09/05/18 09/21/18 Rx Famotidine [Pepcid] 10 mg PO BID #15 tablet 09/05/18 09/21/18 Rx Fe Fumarate/FA/Mv, Min Comb#15 1 each PO QDAY #30 capsule 09/05/18 09/21/18 Rx [Hemocyte Plus] ISOSORBIDE MONOnitrate [Imdur ER] 30 mg PO QDAY #30 tablet 09/05/18 09/21/18 Rx Lactulose [Cephulac] 20 gm PO BID oral.liqd 09/05/18 09/21/18 Rx Losartan [Cozaar] 100 mg PO QDAY 30 Days tablet 09/05/18 09/21/18 Rx Metoprolol Xl [Metoprolol 100 mg PO QDAY #30 tablet 09/05/18 09/21/18 Rx SUCCINATE ER TAB] Polyethylene Glycol 3350 [Miralax 17 gm PO QDAY PRN powd.pack 09/05/18 09/21/18 Rx 3350] Sennosides/Docusate [Senokot S] 1 tab PO BID tablet 09/05/18 09/21/18 Rx amLODIPine [Norvasc] 10 mg PO DAILY #30 tablet 09/05/18 09/21/18 Rx hydrALAZINE [Apresoline TAB] 50 mg PO Q8HR #90 tablet 09/05/18 09/21/18 Rx oxyCODONE /ACETAMINOPHEN [Percocet 1 tab PO Q6H PRN #20 tablet 09/05/18 09/21/18 Rx 5/325 mg] Allergies Allergy/AdvReac Type Severity Reaction Status Date / Time aspirin Allergy Unknown Verified 03/16/17 01:25 pork derived (porcine) Allergy Rash Verified 03/16/17 01:27 venom-honey bee Allergy Anaphylaxis Verified 03/16/17 01:27 [bee venom (honey bee)] Pork/Porcine Containing AdvReac Severe Nausea,VOMI Verified 02/13/17 09:31 Products TING Heart Score - HEART Score History: Slightly suspicious EKG: Non-specific Age: 45-65 Risk factors: > 3 risk factors or hx of atherosclerotic disease Troponin: 1-3x normal limit HEART Score: 5 ED Review of Systems ROS: Stated complaint: CHEST PAIN Other details as noted in HPI Comment: All other systems reviewed and negative Constitutional: denies: chills, fever Respiratory: shortness of breath. 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, dialysis - Surgical History Hx Coronary Stent: No Hx Pacemaker: No Hx Internal Defibrillator: No Additional Surgical History: neck and back surgery x3 - Social History Smoking Status: Former Smoker Substance Use Type: None - Medications Home Medications: Home Medications Medication Instructions Recorded Confirmed Last Taken Type Acetaminophen [Acetaminophen TAB] 650 mg PO Q4H PRN tablet 05/05/18 09/21/18 09/21/18 Rx diphenhydrAMINE [Benadryl CAP] 25 mg PO Q6H PRN #15 capsule 05/05/18 09/21/18 09/21/18 Rx Apixaban [Eliquis] 2.5 mg PO Q12HR #60 tablet 09/05/18 09/21/18 09/21/18 Rx AtorvaSTATin [Lipitor] 40 mg PO QHS #30 tablet 09/05/18 09/21/18 09/21/18 Rx Epoetin Prashant 10,000 Unit [Procrit] 10,000 unit SUB-Q KATERYNA PRN #30 vial 09/05/18 09/21/18 09/21/18 Rx FLUoxetine HCL [Fluoxetine HCl] 40 mg PO QDAY #30 capsule 09/05/18 09/21/18 09/21/18 Rx Famotidine [Pepcid] 10 mg PO BID #15 tablet 09/05/18 09/21/18 09/21/18 Rx Fe Fumarate/FA/Mv, Min Comb#15 1 each PO QDAY #30 capsule 09/05/18 09/21/18 Rx [Hemocyte Plus] ISOSORBIDE MONOnitrate [Imdur ER] 30 mg PO QDAY #30 tablet 09/05/18 09/21/18 09/21/18 Rx Lactulose [Cephulac] 20 gm PO BID oral.liqd 09/05/18 09/21/18 09/21/18 Rx Losartan [Cozaar] 100 mg PO QDAY 30 Days tablet 03/20/19 04/05/19 04/05/19 Rx Metoprolol Xl [Metoprolol 100 mg PO QDAY #30 tablet 09/05/18 09/21/18 09/21/18 Rx SUCCINATE ER TAB] Polyethylene Glycol 3350 [Miralax 17 gm PO QDAY PRN powd.pack 09/05/18 09/21/18 09/21/18 Rx 3350] Sennosides/Docusate [Senokot S] 1 tab PO BID tablet 09/05/18 09/21/18 09/21/18 Rx amLODIPine [Norvasc] 10 mg PO DAILY #30 tablet 09/05/18 09/21/18 09/21/18 Rx hydrALAZINE [Apresoline TAB] 50 mg PO Q8HR #90 tablet 09/05/18 09/21/18 09/21/18 Rx oxyCODONE /ACETAMINOPHEN [Percocet 1 tab PO Q6H PRN #20 tablet 09/05/18 09/21/18 09/21/18 Rx 5/325 mg] ED Physical Exam - General Limitations: Physical Limitation General appearance: alert, in no apparent distress, other (appears frail) - Head Head exam: Present: atraumatic, normocephalic - Eye Eye exam: Present: normal appearance - ENT ENT exam: Present: mucous membranes moist - Neck Neck exam: Present: normal inspection - Respiratory Respiratory exam: Present: normal lung sounds bilaterally. Absent: respiratory distress - Cardiovascular Cardiovascular Exam: Present: regular rate, normal rhythm - GI/Abdominal GI/Abdominal exam: Present: soft. Absent: distended, tenderness - Extremities Exam Extremities exam: Present: normal inspection - Neurological Exam Neurological exam: Present: alert, oriented X3 - Psychiatric Psychiatric exam: Present: normal affect, normal mood - Skin Skin exam: Present: warm, dry, intact, normal color ED Course Vital Signs 09/21/18 09/21/18 09/21/18 20:48 20:50 21:00 Temperature 97.7 F Pulse Rate 87 84 101 H Respiratory 11 L 17 22 Rate Blood Pressure 152/100 152/110 O2 Sat by Pulse 99 97 Oximetry 09/21/18 09/21/18 09/21/18 21:16 21:30 21:46 Temperature Pulse Rate 89 88 102 H Respiratory 19 19 20 Rate Blood Pressure 155/109 139/102 155/123 O2 Sat by Pulse 98 100 100 Oximetry 09/21/18 09/21/18 09/21/18 22:00 22:16 22:30 Temperature Pulse Rate 96 H 87 101 H Respiratory 15 21 17 Rate Blood Pressure 151/121 150/121 157/115 O2 Sat by Pulse 100 99 100 Oximetry 09/21/18 09/21/18 22:45 23:00 Temperature Pulse Rate 86 97 H Respiratory 19 16 Rate Blood Pressure 164/123 156/113 O2 Sat by Pulse 100 100 Oximetry - Reevaluation(s) Reevaluation #1: 09/21/18 22:36 Trop resulted at 0.20. Chart review shows that this seems to be pt's baseline troponin, given hx of ESRD, dating back to 2017. Troponin has been generally 0.19-0.2. ROGER score - Roger Score Age > 65: (1) Yes Aspirin use within the Past 7 Days: (0) No 3 or more CAD Risk Factors: (1) Yes 2 or more Angina events in past 24 hrs: (0) No Known CAD with more than 50% Stenosis: (0) No Elevated Cardiac Markers: (1) Yes ST Deviation Greater than 0.5mm: (0) No ROGER Score: 3 ED Medical Decision Making - Lab Data Result diagrams: 09/21/18 21:25 09/21/18 21:45 - EKG Data -: EKG Interpreted by Me EKG shows normal: QRS complexes Rate: normal - EKG Data Interpretation: nonspecific ST-T wave adriana, LVH, other (Afib) - Radiology Data Radiology results: report reviewed, image reviewed - Medical Decision Making 63-year-old male with left-sided chest pain. Reports associated shortness of breath, however O2 sats normal on room air, patient in no respiratory distress. EKG shows A. fib, no ST changes. Troponin elevated at 0.2, which appears to be patient's baseline. Following last admission, patient states he and his met with hospice representatives. However he was unhappy with the idea of hospice because he felt as if they were trying to "off" him, by telling him that he would have to discontinue dialysis. I explained to patient that there are other palliative care options and when she could remain on dialysis, but they would be able to address his medical problems and prevent some of his hospital admissions. Spoke with hospitalist, Dr. Saez, will admit for further management. - Differential Diagnosis pleural effusion, ACS, chronic pain Critical care attestation.: If time is entered above; I have spent that time in minutes in the direct care o f this critically ill patient, excluding procedure time. ED Disposition Clinical Impression: Chest pain, Pleural effusion, ESRD (end stage renal disease) on dialysis Disposition: OP ADMIT IP TO THIS HOSP Is pt being admited?: Yes Condition: Stable Time of Disposition: 22:59
[2018-09-21] MEDS ORDERED: MORPHINE IV ONE ×2 (21:27→23:05)
[2018-09-21 21:36] LABS: Basophils % (Auto) 0.8 % (0.0-1.8); Eosinophils # (Auto) 0.1 K/mm3 (0.0-0.4); Eosinophils % (Auto) 2.8 % (0.0-4.3); Hematocrit 30.1 % (35.5-45.6); Lymphocytes % (Auto) 21.6 % (13.4-35.0); Mean Corpuscular HGB Conc 33 % (32-34); Mean Corpuscular Volume 103 fl (84-94); Monocytes # (Auto) 0.4 K/mm3 (0.0-0.8); Monocytes % (Auto) 9.2 % (0.0-7.3); Platelet Count 116 K/mm3 (140-440); Red Blood Count 2.94 M/mm3 (3.65-5.03)
[2018-09-21 22:23] LABS: Calcium 8.6 mg/dL (8.4-10.2)
[2018-09-21 22:44] LABS: Chol/HDL Ratio 1.45 %
--- NOTE | 2018-09-21 22:47 | XRay Report ---
PROCEDURE: XR CHEST 1V AP TECHNIQUE: Chest radiograph single view. HISTORY: Chest Pain COMPARISONS: 08/25/2018 . FINDINGS: Heart: Heart is enlarged. Mediastinum/Vessels: Normal. Lungs/Pleural space: There is a large left pleural effusion similar to prior study. Lungs are well e xpanded. There are no pneumothoraces.. Bony thorax: No acute osseous abnormality. Life support devices: There is a right-sided central venous catheter. The tip is in the superior vena cava.. IMPRESSION: Heart is enlarged. There is a large left pleural effusion similar to prior study. Lungs are well expanded. There are no pneumothoraces.. There is a right-sided central venous catheter. The tip is in the superior vena cava... This document is electronically signed by Carlos Skinner MD., September 21 2018 10:46:04 PM ET
[2018-09-21] MEDS ORDERED: K-DUR PO ONE (23:05)
[2018-09-21] MEDS ORDERED: TYLENOL PO PRN (23:41)
[2018-09-21] MEDS ORDERED: ZOFRAN IV PRN (23:41)
[2018-09-21] MEDS ORDERED: D50W (25GM) Syringe IV PRN (23:41)
[2018-09-21] MEDS ORDERED: MIRALAX 3350 PO PRN (23:45)
--- NOTE | 2018-09-21 23:46 | History and Physical Report ---
<EVER RESENDEZ Christian - Last Filed: 09/22/18 00:15> History of Present Illness Date of examination: 09/21/18 History of present illness: 63-year-old man with a history of end-stage renal disease on dialysis, hypertension, CHF, A. fib, coronary artery disease, PTSD comes emergency room with complaints of chest pain. Pain is in the left chest which he describes as sharp pain, feeling like someone stepping on it, constant, intensity 5/10, no radiation, Other than her exacerbating or relieving factors. Denies nausea vomiting, diaphoresis or palpitation. He has baseline shortness of breath which has not worsened, also complaining of cough, nonproductive, no fever or chills Review of systems Constitutional: no weight loss, chills, fever Ears, eyes, nose, mouth and throat: no nasal congestion, no nasal discharge, no sinus pressure, no vision change, no red eye. Neck: No neck pain or rigidity. Cardiovascular: no palpitations Respiratory: + cough, shortness of breath Gastrointestinal: no hematochezia, abdominal pain Genitourinary : no frequency , no hematuria Musculoskeletal: no joint swelling or muscle ache Integumentary: no rash, no pruritis Neurological: no parathesias, no focal weakness Endocrine: no cold or heat intolerance, no polyuria or polydipsia Hematologic/Lymphatic: no easy bruising, no easy bleeding, no gland swelling Allergic/Immunologic: no urticaria, no angioedema. PAST MEDICAL HISTORY: end-stage renal disease on dialysis, hypertension, CHF, A. fib PAST SURGICAL HISTORY: Left arm amputation, multiple fingers amputation, AV fistula, neck and back surgery SOCIAL HISTORY: Denies alcohol, drugs, tobacco FAMILY HISTORY: Hypertension Medications and Allergies Allergies Allergy/AdvReac Type Severity Reaction Status Date / Time aspirin Allergy Unknown Verified 03/16/17 01:25 pork derived (porcine) Allergy Rash Verified 03/16/17 01:27 venom-honey bee Allergy Anaphylaxis Verified 03/16/17 01:27 [bee venom (honey bee)] Pork/Porcine Containing AdvReac Severe Nausea,VOMI Verified 02/13/17 09:31 Products TING Home Medications Medication Instructions Recorded Confirmed Last Taken Type Acetaminophen [Acetaminophen TAB] 650 mg PO Q4H PRN tablet 05/05/18 09/21/18 09/21/18 Rx diphenhydrAMINE [Benadryl CAP] 25 mg PO Q6H PRN #15 capsule 05/05/18 09/21/18 09/21/18 Rx Apixaban [Eliquis] 2.5 mg PO Q12HR #60 tablet 09/05/18 09/21/18 09/21/18 Rx AtorvaSTATin [Lipitor] 40 mg PO QHS #30 tablet 09/05/18 09/21/18 09/21/18 Rx Epoetin Prashant 10,000 Unit [Procrit] 10,000 unit SUB-Q KATERYNA PRN #30 vial 09/05/18 09/21/18 09/21/18 Rx FLUoxetine HCL [Fluoxetine HCl] 40 mg PO QDAY #30 capsule 09/05/18 09/21/18 09/21/18 Rx Famotidine [Pepcid] 10 mg PO BID #15 tablet 09/05/18 09/21/18 09/21/18 Rx Fe Fumarate/FA/Mv, Min Comb#15 1 each PO QDAY #30 capsule 09/05/18 09/21/18 0 09/21/18 Rx [Hemocyte Plus] ISOSORBIDE MONOnitrate [Imdur ER] 30 mg PO QDAY #30 tablet 09/05/18 09/21/18 09/21/18 Rx Lactulose [Cephulac] 20 gm PO BID oral.liqd 09/05/18 09/21/18 09/21/18 Rx Losartan [Cozaar] 100 mg PO QDAY 30 Days tablet 09/05/18 09/21/18 09/21/18 Rx Metoprolol Xl [Metoprolol 100 mg PO QDAY #30 tablet 09/05/18 09/21/18 09/21/18 Rx SUCCINATE ER TAB] Polyethylene Glycol 3350 [Miralax 17 gm PO QDAY PRN powd.pack 09/05/18 09/21/18 09/21/18 Rx 3350] Sennosides/Docusate [Senokot S] 1 tab PO BID tablet 09/05/18 09/21/18 09/21/18 Rx amLODIPine [Norvasc] 10 mg PO DAILY #30 tablet 09/05/18 09/21/18 09/21/18 Rx hydrALAZINE [Apresoline TAB] 50 mg PO Q8HR #90 tablet 09/05/18 09/21/18 09/21/18 Rx oxyCODONE /ACETAMINOPHEN [Percocet 1 tab PO Q6H PRN #20 tablet 09/05/18 09/21/18 09/21/18 Rx 5/325 mg] Active Meds: Active Medications Acetaminophen (Tylenol) 650 mg PO Q4H PRN PRN Reason: Pain MILD(1-3)/Fever >100.5/DOUGLAS Dextrose (D50w (25gm) Syringe) 50 ml IV PRN PRN PRN Reason: Hypoglycemia Insulin Human Lispro (Humalog) 0 unit SUB-Q ACHS BEAN; Protocol Morphine Sulfate (Morphine) 2 mg IV Q4H PRN PRN Reason: Pain, Moderate (4-6) Ondansetron HCl (Zofran) 4 mg IV Q4H PRN PRN Reason: Nausea And Vomiting Sodium Chloride (Sodium Chloride Flush Syringe 10 Ml) 10 ml IV BID BEAN Sodium Chloride (Sodium Chloride Flush Syringe 10 Ml) 10 ml IV PRN PRN PRN Reason: LINE FLUSH Exam - Physical Exam Narrative exam: General Apperance: The patient lying in bed, breathing comfortable HEENT: Normocephalic, atraumatic. Pupils equally round and reactive to light, EOMI, no sclericterus or JVD or thyromegaly or nodule. , no carotid bruit, mucous membranes moist, no exudate or erythema Heart: S1-S2, regular is rhythm Lungs: Decreased breath sounds bilaterally, breathing comfortable Abdomen: Positive bowel sounds, soft, nontender, nondistended, no organomegaly Extremities: amputation of the left arm, No edema cyanosis clubbing Skin: no rash, nodule, warm and dry Neuro: cranial nerves 2-12 intact, speech is fluent, motor/sensory intact - Constitutional Vitals: Temp Pulse Resp BP Pulse Ox 97.7 F 97 H 16 156/113 100 09/21/18 20:50 09/21/18 23:00 09/21/18 23:00 09/21/18 23:00 09/21/18 23:00 Results - Labs CBC & Chem 7: 09/21/18 21:25 09/21/18 21:45 Labs: Abnormal lab results 09/21/18 09/21/18 Range/Units 21:25 21:45 RBC 2.94 L (3.65-5.03) M/mm3 Hgb 10.0 L (11.8-15.2) gm/dl Hct 30.1 L (35.5-45.6) % MCV 103 H (84-94) fl MCH 34 H (28-32) pg RDW 18.0 H (13.2-15.2) % Plt Count 116 L (140-440) K/mm3 King % (Auto) 9.2 H (0.0-7.3) % Lymph # 1.0 L (1.2-5.4) K/mm3 Potassium 3.1 L (3.6-5.0) mmol/L BUN 36 H (9-20) mg/dL Creatinine 5.9 H (0.8-1.5) mg/dL Troponin T 0.200 H* (0.00-0.029) ng/mL LDL Cholesterol Direct 19 L (50-130) mg/dL Assessment and Plan Assessment unstable angina Coronary artery disease Pleural effusion CHF, Chronic, systolic A. fib Hypertension End-stage renal disease on dialysis PTSD Plan Admit to medicine check cardiac enzymes, consult cardiology Consult renal for dialysis Continue appropriate outpatient medications DVT prophylaxis <MARY ANN JACKSON A - Last Filed: 09/22/18 07:28> History of Present Illness Date of admission: 09/21/18 23:41 Medications and Allergies Active Meds: Active Medications Acetaminophen (Tylenol) 650 mg PO Q4H PRN PRN Reason: Pain MILD(1-3)/Fever >100.5/DOUGLAS Amlodipine Besylate (Norvasc) 10 mg PO DAILY [facility] Apixaban (Eliquis) 2.5 mg PO Q12HR [facility]; Protocol Atorvastatin Calcium (Lipitor) 40 mg PO QHS [facility] Dextrose (D50w (25gm) Syringe) 50 ml IV PRN PRN PRN Reason: Hypoglycemia Famotidine (Pepcid) 10 mg PO BID [facility] Fluoxetine HCl (Prozac) 40 mg PO QDAY [facility] Hydralazine HCl (Apresoline) 50 mg PO Q8HR [facility] Last Admin: 09/22/18 05:38 Dose: 50 mg Documented by: Hydralazine HCl (Apresoline) 20 mg IV Q4H PRN PRN Reason: Hypertension Last Admin: 09/22/18 02:27 Dose: 20 mg Documented by: Insulin Human Lispro (Humalog) 0 unit SUB-Q [facility]; Protocol Isosorbide Mononitrate (Imdur) 30 mg PO QDAY [facility] Losartan Potassium (Cozaar) 100 mg PO QDAY [facility] Metoprolol Succinate (Toprol Xl) 100 mg PO QDAY@0800 [facility] Morphine Sulfate (Morphine) 2 mg IV Q4H PRN PRN Reason: Pain, Moderate (4-6) Last Admin: 09/22/18 03:32 Dose: 2 mg Documented by: Multivitamins/Iron (Hemocyte Plus) 1 each PO QDAY [facility] Ondansetron HCl (Zofran) 4 mg IV Q4H PRN PRN Reason: Nausea And Vomiting Polyethylene Glycol (Miralax 3350) 17 gm PO QDAY PRN PRN Reason: Constipation Sodium Chloride (Sodium Chloride Flush Syringe 10 Ml) 10 ml IV BID [facility] Sodium Chloride (Sodium Chloride Flush Syringe 10 Ml) 10 ml IV PRN PRN PRN Reason: LINE FLUSH Exam - Constitutional Vitals: Temp Pulse Resp BP Pulse Ox 97.6 F 101 H 18 142/104 98 09/22/18 05:18 09/22/18 05:18 09/22/18 05:18 09/22/18 05:18 09/22/18 05:18 Results - Labs CBC & Chem 7: 09/22/18 03:24 09/22/18 03:24 Labs: Abnormal lab results 09/21/18 09/21/18 09/22/18 Range/Units 21:25 21:45 00:03 RBC 2.94 L (3.65-5.03) M/mm3 Hgb 10.0 L (11.8-15.2) gm/dl Hct 30.1 L (35.5-45.6) % MCV 103 H (84-94) fl MCH 34 H (28-32) pg RDW 18.0 H (13.2-15.2) % Plt Count 116 L (140-440) K/mm3 King % (Auto) 9.2 H (0.0-7.3) % Lymph # 1.0 L (1.2-5.4) K/mm3 Potassium 3.1 L (3.6-5.0) mmol/L Carbon Dioxide (22-30) mmol/L BUN 36 H (9-20) mg/dL Creatinine 5.9 H (0.8-1.5) mg/dL Glucose (75-100) mg/dL Total Creatine Kinase (55-170) units/L CK-MB (CK-2) Rel Index (0-4) Troponin T 0.200 H* 0.219 H* (0.00-0.029) ng/mL LDL Cholesterol Direct 19 L (50-130) mg/dL 09/22/18 09/22/18 09/22/18 Range/Units 00:39 00:39 03:24 RBC (3.65-5.03) M/mm3 Hgb (11.8-15.2) gm/dl Hct (35.5-45.6) % MCV (84-94) fl MCH (28-32) pg RDW (13.2-15.2) % Plt Count (140-440) K/mm3 King % (Auto) (0.0-7.3) % Lymph # (1.2-5.4) K/mm3 Potassium (3.6-5.0) mmol/L Carbon Dioxide (22-30) mmol/L BUN (9-20) mg/dL Creatinine (0.8-1.5) mg/dL Glucose (75-100) mg/dL Total Creatine Kinase 36 L (55-170) units/L CK-MB (CK-2) Rel Index 8.8 H (0-4) Troponin T 0.222 H* 0.216 H* (0.00-0.029) ng/mL LDL Cholesterol Direct (50-130) mg/dL 09/22/18 09/22/18 09/22/18 Range/Units 03:24 03:24 05:09 RBC 3.37 L (3.65-5.03) M/mm3 Hgb 11.3 L (11.8-15.2) gm/dl Hct 34.9 L (35.5-45.6) % MCV 104 H (84-94) fl MCH 33 H (28-32) pg RDW 18.2 H (13.2-15.2) % Plt Count 121 L (140-440) K/mm3 King % (Auto) 7.4 H (0.0-7.3) % Lymph # (1.2-5.4) K/mm3 Potassium (3.6-5.0) mmol/L Carbon Dioxide 21 L (22-30) mmol/L BUN 38 H (9-20) mg/dL Creatinine 6.1 H (0.8-1.5) mg/dL Glucose 104 H (75-100) mg/dL Total Creatine Kinase 40 L (55-170) units/L CK-MB (CK-2) Rel Index 8.5 H (0-4) Troponin T (0.00-0.029) ng/mL LDL Cholesterol Direct (50-130) mg/dL 09/22/18 Range/Units 05:09 RBC (3.65-5.03) M/mm3 Hgb (11.8-15.2) gm/dl Hct (35.5-45.6) % MCV (84-94) fl MCH (28-32) pg RDW (13.2-15.2) % Plt Count (140-440) K/mm3 King % (Auto) (0.0-7.3) % Lymph # (1.2-5.4) K/mm3 Potassium (3.6-5.0) mmol/L Carbon Dioxide (22-30) mmol/L BUN (9-20) mg/dL Creatinine (0.8-1.5) mg/dL Glucose (75-100) mg/dL Total Creatine Kinase (55-170) units/L CK-MB (CK-2) Rel Index (0-4) Troponin T 0.215 H* (0.00-0.029) ng/mL LDL Cholesterol Direct (50-130) mg/dL
[2018-09-22 01:16] LABS: Creatine Kinase MB 3.2 ng/mL (0.0-4.0)
[2018-09-22] MEDS ORDERED: APRESOLINE IV PRN (01:23)
[2018-09-22] MEDS: MORPHINE IV PRN ×4 (03:32→20:05)
[2018-09-22 03:41] LABS: Eosinophils # (Auto) 0.1 K/mm3 (0.0-0.4); Eosinophils % (Auto) 3.1 % (0.0-4.3); Hematocrit 34.9 % (35.5-45.6); Hemoglobin 11.3 gm/dl (11.8-15.2); Lymphocytes # (Auto) 1.3 K/mm3 (1.2-5.4); Lymphocytes % (Auto) 26.6 % (13.4-35.0); Mean Corpuscular HGB Conc 32 % (32-34); Mean Corpuscular Volume 104 fl (84-94); Monocytes # (Auto) 0.3 K/mm3 (0.0-0.8); Monocytes % (Auto) 7.4 % (0.0-7.3); Platelet Count 121 K/mm3 (140-440); Red Blood Count 3.37 M/mm3 (3.65-5.03); Red Cell Distribution Width 18.2 % (13.2-15.2)
[2018-09-22 04:05] LABS: Calcium 9.3 mg/dL (8.4-10.2)
[2018-09-22] MEDS: APRESOLINE PO SCH ×3 (05:38→22:29)
[2018-09-22 06:06] LABS: Creatine Kinase MB 3.4 ng/mL (0.0-4.0)
--- NOTE | 2018-09-22 07:24 | Consultation ---
History of Present Illness Consult date: 09/22/18 History of present illness: 63 year old -[place] male presenting with left precordial chest pain. Pain is sharp and states this intense and is constant at a time of my evaluation denied any fever or chills. Previous chest x-rays had showed patient to have left pleural effusion. Past History Past Medical History: atrial fib, CAD, COPD, ESRD, hypertension, hyperlipidemia Social history: no significant social history Family history: no significant family history Medications and Allergies Allergies Allergy/AdvReac Type Severity Reaction Status Date / Time aspirin Allergy Unknown Verified 03/16/17 01:25 pork derived (porcine) Allergy Rash Verified 03/16/17 01:27 venom-honey bee Allergy Anaphylaxis Verified 03/16/17 01:27 [bee venom (honey bee)] Pork/Porcine Containing AdvReac Severe Nausea,VOMI Verified 02/13/17 09:31 Products TING Home Medications Medication Instructions Recorded Confirmed Last Taken Type Acetaminophen [Acetaminophen TAB] 650 mg PO Q4H PRN tablet 05/05/18 09/21/18 09/21/18 Rx diphenhydrAMINE [Benadryl CAP] 25 mg PO Q6H PRN #15 capsule 05/05/18 09/21/18 09/21/18 Rx Apixaban [Eliquis] 2.5 mg PO Q12HR #60 tablet 09/05/18 09/21/18 09/21/18 Rx AtorvaSTATin [Lipitor] 40 mg PO QHS #30 tablet 09/05/18 09/21/18 09/21/18 Rx Epoetin Prashant 10,000 Unit [Procrit] 10,000 unit SUB-Q KATERYNA PRN #30 vial 09/05/18 09/21/18 09/21/18 Rx FLUoxetine HCL [Fluoxetine HCl] 40 mg PO QDAY #30 capsule 09/05/18 09/21/18 09/21/18 Rx Famotidine [Pepcid] 10 mg PO BID #15 tablet 09/05/18 09/21/18 09/21/18 Rx Fe Fumarate/FA/Mv, Min Comb#15 1 each PO QDAY #30 capsule 09/05/18 09/21/18 09/21/18 Rx [Hemocyte Plus] ISOSORBIDE MONOnitrate [Imdur ER] 30 mg PO QDAY #30 tablet 09/05/18 09/21/18 09/21/18 Rx Lactulose [Cephulac] 20 gm PO BID oral.liqd 09/05/18 09/21/18 09/21/18 Rx Losartan [Cozaar] 100 mg PO QDAY 30 Days tablet 09/05/18 09/21/18 09/21/18 Rx Metoprolol Xl [Metoprolol 100 mg PO QDAY #30 tablet 09/05/18 09/21/18 09/21/18 Rx SUCCINATE ER TAB] Polyethylene Glycol 3350 [Miralax 17 gm PO QDAY PRN powd.pack 09/05/18 09/21/18 09/21/18 Rx 3350] Sennosides/Docusate [Senokot S] 1 tab PO BID tablet 09/05/18 09/21/18 09/21/18 Rx amLODIPine [Norvasc] 10 mg PO DAILY #30 tablet 09/05/18 09/21/18 09/21/18 Rx hydrALAZINE [Apresoline TAB] 50 mg PO Q8HR #90 tablet 09/05/18 09/21/18 09/21/18 Rx oxyCODONE /ACETAMINOPHEN [Percocet 1 tab PO Q6H PRN #20 tablet 09/05/18 09/21/18 09/21/18 Rx 5/325 mg] Active Meds: Active Medications Acetaminophen (Tylenol) 650 mg PO Q4H PRN PRN Reason: Pain MILD(1-3)/Fever >100.5/DOUGLAS Amlodipine Besylate (Norvasc) 10 mg PO DAILY [facility] Apixaban (Eliquis) 2.5 mg PO Q12HR [facility]; Protocol Atorvastatin Calcium (Lipitor) 40 mg PO QHS [facility] Dextrose (D50w (25gm) Syringe) 50 ml IV PRN PRN PRN Reason: Hypoglycemia Famotidine (Pepcid) 10 mg PO BID [facility] Fluoxetine HCl (Prozac) 40 mg PO QDAY [facility] Hydralazine HCl (Apresoline) 50 mg PO Q8HR [facility] Last Admin: 09/22/18 05:38 Dose: 50 mg Documented by: Hydralazine HCl (Apresoline) 20 mg IV Q4H PRN PRN Reason: Hypertension Last Admin: 09/22/18 02:27 Dose: 20 mg Documented by: Insulin Human Lispro (Humalog) 0 unit SUB-Q [facility]; Protocol Isosorbide Mononitrate (Imdur) 30 mg PO QDAY [facility] Losartan Potassium (Cozaar) 100 mg PO QDAY [facility] Metoprolol Succinate (Toprol Xl) 100 mg PO QDAY@0800 [facility] Morphine Sulfate (Morphine) 2 mg IV Q4H PRN PRN Reason: Pain, Moderate (4-6) Last Admin: 09/22/18 03:32 Dose: 2 mg Documented by: Multivitamins/Iron (Hemocyte Plus) 1 each PO QDAY [facility] Ondansetron HCl (Zofran) 4 mg IV Q4H PRN PRN Reason: Nausea And Vomiting Polyethylene Glycol (Miralax 3350) 17 gm PO QDAY PRN PRN Reason: Constipation Sodium Chloride (Sodium Chloride Flush Syringe 10 Ml) 10 ml IV BID [facility] Sodium Chloride (Sodium Chloride Flush Syringe 10 Ml) 10 ml IV PRN PRN PRN Reason: LINE FLUSH Review of Systems Constitutional: weight loss, anorexia, fatigue, no fever, no chills Ears, nose, mouth and throat: no deferred, no ear pain, no ear discharge, no sinus pressure, no sinus pain, no mouth pain Cardiovascular: chest pain, shortness of breath, no orthopnea, no palpitations, no edema, no syncope, no dyspnea on exertion, no paroxysmal nocturnal dyspnea Respiratory: shortness of breath, dyspnea on exertion, no congestion, no wheezing Gastrointestinal: no abdominal pain, no nausea, no vomiting, no diarrhea, no constipation Genitourinary Male: no dysuria, no flank pain Musculoskeletal: no neck stiffness, no neck pain, no shooting arm pain Integumentary: no rash, no pruritis, no redness Neurological: no paralysis, no parathesias, no numbness Endocrine: no cold intolerance, no heat intolerance, no polyphagia, no excessive thirst, no polydipsia, no polyuria Hematologic/Lymphatic: no easy bruising, no easy bleeding Physical Examination Vital Signs Pulse Resp Pulse Ox 87 11 L 99 09/21/18 20:48 09/21/18 20:48 09/21/18 20:48 General appearance: no acute distress HEENT: Positive: EOMI, Normocephaly, Mucus Membranes Moist Neck: Negative: neck supple, trachea midline, JVD/HJR Cardiac: Positive: Regular Rate, S1/S2, S3, PMI, Laterally Displaced Lungs: Positive: Other (decreased left sided breath sounds) Neuro: Positive: Grossly Intact Abdomen: Positive: Unremarkable, Active Bowel Sounds Extremities: Absent: edema Results 09/22/18 03:24 09/22/18 03:24 Cardiac Enzymes 09/22/18 09/22/18 Range/Units 00:39 05:09 CK-MB (CK-2) 3.2 3.4 (0.0-4.0) ng/mL Lipids 09/21/18 Range/Units 21:45 Triglycerides 47 (2-149) mg/dL Cholesterol 74 (50-199) mg/dL HDL Cholesterol 51 (40-59) mg/dL Cholesterol/HDL Ratio 1.45 % CBC 09/21/18 09/22/18 Range/Units 21:25 03:24 WBC 4.7 4.7 (4.5-11.0) K/mm3 RBC 2.94 L 3.37 L (3.65-5.03) M/mm3 Hgb 10.0 L 11.3 L (11.8-15.2) gm/dl Hct 30.1 L 34.9 L (35.5-45.6) % Plt Count 116 L 121 L (140-440) K/mm3 Lymph # 1.0 L 1.3 (1.2-5.4) K/mm3 [place] # 0.4 0.3 (0.0-0.8) K/mm3 Eos # 0.1 0.1 (0.0-0.4) K/mm3 Baso # 0.0 0.0 (0.0-0.1) K/mm3 Comprehensive Metabolic Panel 09/21/18 09/22/18 Range/Units 21:45 03:24 Sodium 142 141 (137-145) mmol/L Potassium 3.1 L 3.8 D (3.6-5.0) mmol/L Chloride 104.5 101.3 (98-107) mmol/L Carbon Dioxide 26 21 L (22-30) mmol/L BUN 36 H 38 H (9-20) mg/dL Creatinine 5.9 H 6.1 H (0.8-1.5) mg/dL Glucose 81 104 H (75-100) mg/dL Calcium 8.6 9.3 (8.4-10.2) mg/dL EKG interpretations - EKG Sinus rhythms and dysrhythmias: sinus rhythm Assessment and Plan 1. Chest pain probably pleuritic from left-sided pleural effusion 2. Chronic atrial fibrillation 3. Coronary artery disease 4. Essential hypertension 5. End-stage renal disease on hemodialysis 6. PTSD Plan. Patient's chest pain appears to be noncardiac probably related to pleurisy from left-sided pleural effusion. Recommend pulmonary consult to evaluate. Serial cardiac isoenzymes fequivocally elevated secondary to ESRD and trend flat,not consistent with acute coronary syndrome.
[2018-09-22] MEDS: HumaLOG SUB-Q SCH ×4 (07:30→22:55)
--- NOTE | 2018-09-22 07:37 | Progress Note ---
Subjective Date of service: 09/22/18 Objective - Vital Signs Vital signs: Vital Signs - 12hr 09/21/18 09/21/18 09/21/18 20:48 20:50 21:00 Temperature 97.7 F Pulse Rate 87 84 101 H Respiratory 11 L 17 22 Rate Blood Pressure 152/100 152/110 O2 Sat by Pulse 99 97 Oximetry 09/21/18 09/21/18 09/21/18 21:16 21:30 21:46 Temperature Pulse Rate 89 88 102 H Respiratory 19 19 20 Rate Blood Pressure 155/109 139/102 155/123 O2 Sat by Pulse 98 100 100 Oximetry 09/21/18 09/21/18 09/21/18 22:00 22:16 22:30 Temperature Pulse Rate 96 H 87 101 H Respiratory 15 21 17 Rate Blood Pressure 151/121 150/121 157/115 O2 Sat by Pulse 100 99 100 Oximetry 09/21/18 09/21/18 09/21/18 22:45 23:00 23:01 Temperature Pulse Rate 86 97 H 94 H Respiratory 19 16 17 Rate Blood Pressure 164/123 156/113 156/113 O2 Sat by Pulse 100 100 98 Oximetry 09/21/18 09/21/18 09/21/18 23:10 23:20 23:30 Temperature Pulse Rate 82 96 H 98 H Respiratory 19 22 18 Rate Blood Pressure 156/113 158/118 158/121 O2 Sat by Pulse 100 99 100 Oximetry 09/21/18 09/21/18 09/22/18 23:40 23:50 00:00 Temperature Pulse Rate 89 98 H 107 H Respiratory 18 23 15 Rate Blood Pressure 158/121 159/113 153/108 O2 Sat by Pulse 100 99 98 Oximetry 09/22/18 09/22/18 09/22/18 00:10 00:20 01:02 Temperature 97.4 F L Pulse Rate 98 H 101 H 89 Respiratory 13 17 18 Rate Blood Pressure 153/108 170/121 176/122 O2 Sat by Pulse 99 96 96 Oximetry 09/22/18 09/22/18 02:40 05:18 Temperature 97.6 F Pulse Rate 103 H 101 H Respiratory 18 Rate Blood Pressure 142/104 O2 Sat by Pulse 98 Oximetry - Lab 09/22/18 03:24 09/22/18 03:24 Most recent lab results Calcium 9.3 mg/dL (8.4-10.2) 09/22/18 03:24 Medications & Allergies - Medications Allergies/Adverse Reactions: Allergies aspirin Allergy (Verified 03/16/17 01:25) Unknown stomach cramps pork derived (porcine) Allergy (Verified 03/16/17 01:27) Rash venom-honey bee [bee venom (honey bee)] Allergy (Verified 03/16/17 01:27) Anaphylaxis Pork/Porcine Containing Products Adverse Reaction (Severe, Verified 02/13/17 09:31) Nausea,VOMITING Home Medications: Home Medications Medication Instructions Recorded Confirmed Last Taken Type Acetaminophen [Acetaminophen TAB] 650 mg PO Q4H PRN tablet 05/05/18 09/21/18 09/21/18 Rx diphenhydrAMINE [Benadryl CAP] 25 mg PO Q6H PRN #15 capsule 05/05/18 09/21/18 09/21/18 Rx Apixaban [Eliquis] 2.5 mg PO Q12HR #60 tablet 09/05/18 09/21/18 09/21/18 Rx AtorvaSTATin [Lipitor] 40 mg PO QHS #30 tablet 09/05/18 09/21/18 09/21/18 Rx Epoetin Prashant 10,000 Unit [Procrit] 10,000 unit SUB-Q KATERYNA PRN #30 vial 09/05/18 09/21/18 09/21/18 Rx FLUoxetine HCL [Fluoxetine HCl] 40 mg PO QDAY #30 capsule 09/05/18 09/21/18 09/21/18 Rx Famotidine [Pepcid] 10 mg PO BID #15 tablet 09/05/18 09/21/18 09/21/18 Rx Fe Fumarate/FA/Mv, Min Comb#15 1 each PO QDAY #30 capsule 09/05/18 09/21/18 09/21/18 Rx [Hemocyte Plus] ISOSORBIDE MONOnitrate [Imdur ER] 30 mg PO QDAY #30 tablet 09/05/18 09/21/18 09/21/18 Rx Lactulose [Cephulac] 20 gm PO BID oral.liqd 09/05/18 09/21/18 09/21/18 Rx Losartan [Cozaar] 100 mg PO QDAY 30 Days tablet 09/05/18 09/21/18 09/21/18 Rx Metoprolol Xl [Metoprolol 100 mg PO QDAY #30 tablet 09/05/18 09/21/18 09/21/18 Rx SUCCINATE ER TAB] Polyethylene Glycol 3350 [Miralax 17 gm PO QDAY PRN powd.pack 09/05/18 09/21/18 09/21/18 Rx 3350] Sennosides/Docusate [Senokot S] 1 tab PO BID tablet 09/05/18 09/21/18 09/21/18 Rx amLODIPine [Norvasc] 10 mg PO DAILY #30 tablet 09/05/18 09/21/18 09/21/18 Rx hydrALAZINE [Apresoline TAB] 50 mg PO Q8HR #90 tablet 09/05/18 09/21/18 09/21/18 Rx oxyCODONE /ACETAMINOPHEN [Percocet 1 tab PO Q6H PRN #20 tablet 09/05/18 09/21/18 09/21/18 Rx 5/325 mg] Active Medications: Generic Name Dose Route Start Last Admin Trade Name Freq PRN Reason Stop Dose Admin Acetaminophen 650 mg 09/21/18 23:41 Tylenol PO Q4H PRN Pain MILD(1-3)/Fever >100.5/DOUGLAS Amlodipine Besylate 10 mg 09/22/18 10:00 Norvasc PO DAILY [facility] Apixaban 2.5 mg 09/22/18 10:00 Eliquis PO Q12HR [facility] Protocol Atorvastatin Calcium 40 mg 09/22/18 22:00 Lipitor PO QHS [facility] Dextrose 50 ml 09/21/18 23:41 D50w (25gm) Syringe IV PRN PRN Hypoglycemia Famotidine 10 mg 09/22/18 10:00 Pepcid PO BID [facility] Fluoxetine HCl 40 mg 09/22/18 10:00 Prozac PO QDAY [facility] Hydralazine HCl 50 mg 09/22/18 06:00 09/22/18 05:38 Apresoline PO 50 mg Q8HR [facility] Administration Hydralazine HCl 20 mg 09/22/18 01:23 09/22/18 02:27 Apresoline IV 20 mg Q4H PRN Administration Hypertension Insulin Human Lispro 0 unit 09/22/18 07:30 Humalog SUB-Q ACHS [facility] Protocol Isosorbide Mononitrate 30 mg 09/22/18 10:00 Imdur PO QDAY [facility] Losartan Potassium 100 mg 09/22/18 10:00 Cozaar PO QDAY [facility] Metoprolol Succinate 100 mg 09/22/18 08:00 Toprol Xl PO QDAY@0800 [facility] Morphine Sulfate 2 mg 09/21/18 23:41 09/22/18 03:32 Morphine IV 2 mg Q4H PRN Administration Pain, Moderate (4-6) Multivitamins/Iron 1 each 09/22/18 10:00 Hemocyte Plus PO QDAY [facility] Ondansetron HCl 4 mg 09/21/18 23:41 Zofran IV Q4H PRN Nausea And Vomiting Polyethylene Glycol 17 gm 09/21/18 23:45 Miralax 3350 PO QDAY PRN Constipation Sodium Chloride 10 ml 09/22/18 10:00 Sodium Chloride Flush Syringe 10 Ml IV BID [facility] Sodium Chloride 10 ml 09/21/18 23:41 Sodium Chloride Flush Syringe 10 Ml IV PRN PRN LINE FLUSH
--- NOTE | 2018-09-22 07:41 | Consultation ---
History of Present Illness - Reason for Consult Consult date: 09/22/18 end stage renal disease, other (anemia) - History of Present Illness The patient is a 63 YO male with history significant for DM type 2, HTN, A.fib, CAD, CHF, PTSD, PAD s/p left forearm amputation and ESRD on hemodialysis (TTS) who presented to [facility] ED with c/o chest pain. Pain was in the left side of the chest, sharp in charater, constant, intensity 5/10, not radiating and no exacerbating or relieving factors. He was recently admitted with similar presentation. Patient denies palpitation, N, V, D, increasing sob, diaphoresis, leg swelling, fever, chills, dizziness or syncope. Patient was last dialyzed 2 days ago. Nephrology was consulted for ESRD management. Past History Past Medical History: atrial fib, CAD, COPD, ESRD, hypertension, hyperlipidemia Social history: no significant social history Family history: no significant family history Medications and Allergies Allergies Allergy/AdvReac Type Severity Reaction Status Date / Time aspirin Allergy Unknown Verified 03/16/17 01:25 pork derived (porcine) Allergy Rash Verified 03/16/17 01:27 venom-honey bee Allergy Anaphylaxis Verified 03/16/17 01:27 [bee venom (honey bee)] Pork/Porcine Containing AdvReac Severe Nausea,VOMI Verified 02/13/17 09:31 Products TING Home Medications Medication Instructions Recorded Confirmed Last Taken Type Acetaminophen [Acetaminophen TAB] 650 mg PO Q4H PRN tablet 05/05/18 09/21/18 09/21/18 Rx diphenhydrAMINE [Benadryl CAP] 25 mg PO Q6H PRN #15 capsule 05/05/18 09/21/18 09/21/18 Rx Apixaban [Eliquis] 2.5 mg PO Q12HR #60 tablet 09/05/18 09/21/18 09/21/18 Rx AtorvaSTATin [Lipitor] 40 mg PO QHS #30 tablet 09/05/18 09/21/18 09/21/18 Rx Epoetin Prashant 10,000 Unit [Procrit] 10,000 unit SUB-Q K[facility] PRN #30 vial 09/05/18 09/21/18 09/21/18 Rx FLUoxetine HCL [Fluoxetine HCl] 40 mg PO QDAY #30 capsule 09/05/18 09/21/1819 Rx Famotidine [Pepcid] 10 mg PO BID #15 tablet 09/05/18 09/21/18 09/21/18 Rx Fe Fumarate/FA/Mv, Min Comb#15 1 each PO QDAY #30 capsule 09/05/18 09/21/18 09/21/18 Rx [Hemocyte Plus] ISOSORBIDE MONOnitrate [Imdur ER] 30 mg PO QDAY #30 tablet 09/05/18 09/21/18 09/21/18 Rx Lactulose [Cephulac] 20 gm PO BID oral.liqd 09/05/18 09/21/18 09/21/18 Rx Losartan [Cozaar] 100 mg PO QDAY 30 Days tablet 09/05/18 09/21/18 09/21/18 Rx Metoprolol Xl [Metoprolol 100 mg PO QDAY #30 tablet 09/05/18 09/21/18 09/21/18 Rx SUCCINATE ER TAB] Polyethylene Glycol 3350 [Miralax 17 gm PO QDAY PRN powd.pack 09/05/18 09/21/18 09/21/18 Rx 3350] Sennosides/Docusate [Senokot S] 1 tab PO BID tablet 09/05/18 09/21/18 09/21/18 Rx amLODIPine [Norvasc] 10 mg PO DAILY #30 tablet 09/05/18 09/21/18 09/21/18 Rx hydrALAZINE [Apresoline TAB] 50 mg PO Q8HR #90 tablet 09/05/18 09/21/18 09/21/18 Rx oxyCODONE /ACETAMINOPHEN [Percocet 1 tab PO Q6H PRN #20 tablet 09/05/18 09/21/18 09/21/18 Rx 5/325 mg] Active Meds: Active Medications Acetaminophen (Tylenol) 650 mg PO Q4H PRN PRN Reason: Pain MILD(1-3)/Fever >100.5/DOUGLAS Amlodipine Besylate (Norvasc) 10 mg PO DAILY [facility] Apixaban (Eliquis) 2.5 mg PO Q12HR [facility]; Protocol Atorvastatin Calcium (Lipitor) 40 mg PO QHS [facility] Dextrose (D50w (25gm) Syringe) 50 ml IV PRN PRN PRN Reason: Hypoglycemia Famotidine (Pepcid) 10 mg PO BID [facility] Fluoxetine HCl (Prozac) 40 mg PO QDAY [facility] Hydralazine HCl (Apresoline) 50 mg PO Q8HR [facility] Last Admin: 09/22/18 05:38 Dose: 50 mg Documented by: Hydralazine HCl (Apresoline) 20 mg IV Q4H PRN PRN Reason: Hypertension Last Admin: 09/22/18 02:27 Dose: 20 mg Documented by: Insulin Human Lispro (Humalog) 0 unit SUB-Q [facility]; Protocol Isosorbide Mononitrate (Imdur) 30 mg PO QDAY [facility] Losartan Potassium (Cozaar) 100 mg PO QDAY [facility] Metoprolol Succinate (Toprol Xl) 100 mg PO QDAY@0800 [facility] Morphine Sulfate (Morphine) 2 mg IV Q4H PRN PRN Reason: Pain, Moderate (4-6) Last Admin: 09/22/18 03:32 Dose: 2 mg Documented by: Multivitamins/Iron (Hemocyte Plus) 1 each PO QDAY [facility] Ondansetron HCl (Zofran) 4 mg IV Q4H PRN PRN Reason: Nausea And Vomiting Polyethylene Glycol (Miralax 3350) 17 gm PO QDAY PRN PRN Reason: Constipation Sodium Chloride (Sodium Chloride Flush Syringe 10 Ml) 10 ml IV BID [facility] Sodium Chloride (Sodium Chloride Flush Syringe 10 Ml) 10 ml IV PRN PRN PRN Reason: LINE FLUSH Review of Systems Constitutional: no weight loss, no weight gain, no fever, no chills, no weakness Cardiovascular: chest pain, shortness of breath, dyspnea on exertion, high blood pressure, no orthopnea, no edema, no syncope, no lightheadedness, no leg edema Respiratory: shortness of breath, no cough, no hemoptysis Gastrointestinal: no abdominal pain, no nausea, no vomiting, no diarrhea, no melena Genitourinary Male: no dysuria, no hematuria Rectal: no bleeding Integumentary: sores (right thumb), no rash, no redness Neurological: no paralysis, no weakness, no convulsions, no aphasia, no change in speech, no change in mentation, no confusion, no memory loss, no double vision, no loss of vision Exam - Vital Signs Vital signs: Vital Signs Pulse Resp Pulse Ox 87 11 L 99 09/21/18 20:48 09/21/18 20:48 09/21/18 20:48 - General Appearance General appearance: well-developed, appears stated age, other (not in distress, right IJ tunnel catheter) EENT: ATNC, PERRL Neck: Present: neck supple, trachea midline Respiratory: Clear to Ascultation, Decreased Breath Sounds Heart: S1S2, no murmurs Gastrointestinal: Present: normoactive bowel sounds. Absent: tenderness, distended Integumentary: warm and dry, other (right thumb tip dry ulcer) Neurologic: no focal deficit, no asterixis, alert and oriented x3 Musculoskeletal: Present: other (no edema) Results - Lab Results 09/22/18 03:24 09/22/18 03:24 Most recent lab results Calcium 9.3 mg/dL (8.4-10.2) 09/22/18 03:24 Assessment and Plan 1. ESRD: Continue hemodialysis three times a week, TTS schedule. 2. Chest pain: Evaluated by Cards. h/o Coronary artery disease and severe nonischemic cardiomyopathy. 3. A.fib: Rate controlled. 4. DM type 2. 5. Chronic pleural effusion. 6. Anemia: Epogen if needed. 7. PAD.
[2018-09-22] MEDS ORDERED: NACL 0.9% 100 ML IV PRN (08:24)
[2018-09-22] MEDS: COZAAR PO SCH (09:02)
[2018-09-22] MEDS: PROzac PO SCH (09:03)
[2018-09-22] MEDS: IMDUR PO SCH (09:03)
[2018-09-22] MEDS: NORVASC PO SCH (09:04)
[2018-09-22] MEDS: PEPCID PO SCH ×2 (09:04→22:22)
[2018-09-22] MEDS: TOPROL XL PO SCH (09:12)
--- NOTE | 2018-09-22 09:50 | Progress Note ---
Assessment and Plan Assessment and plan: 63-year-old man who presented to the hospital complaining of chest pain 2 hours PMH; A. fib, end-stage renal disease on dialysis, , CHF EF of 10%, hypertension, diabetes, CAD with recent cath showing a long LAD stenosis of 50-70% and proximal segments Chest x-ray shows large left pleural effusion similar to previous study. Diagnoses Chest pain Left pleural effusion End-stage renal disease CHF EF 10% Chronic CAD Diabetes Atrial fibrillation Hypercoagulable states Plan Cardiology input appreciated, chest pain is most likely related to his large pleural effusion Obtain thoracentesis and send fluid for analysis Continue dialysis per nephrology Optimize medications for chronic conditions DVT prophylaxis, on eliquis which will be held for planned thoracentesis on Monday. We'll restart after thoracentesis History Interval history: Review of systems Constitutional: No fevers, no malaise, no joint pains CVS: Continues to complain of pleuritic left-sided chest pain, no orthopnea, no dyspnea on exertion, no pedal edema GI: No abdominal pain, no diarrhea, no vomiting, no constipation Respiratory: No shortness of breath, no wheezing, no coughing Hospitalist Physical - Physical exam Narrative exam: General.: Appears well, no distress, nontoxic HEENT: Moist mucous membranes, extraocular muscles intact, no lymphadenopathy Neck: supple Cardiac: S1-S2 heard Lungs: Dullness to left lung Abdomen: soft , nontender, nondistended, bowel sounds positive Extremities: no edema clubbing or cyanosis Skin: no rash or lesions Neurologic: no gross focal deficits Psych: calm, and cooperative - Constitutional Vitals: Temp Pulse Resp BP Pulse Ox 97.9 F 92 H 20 148/102 97 09/22/18 08:56 09/22/18 09:12 09/22/18 09:04 09/22/18 09:12 09/22/18 08:56 General appearance: Present: no acute distress Results - Labs CBC & Chem 7: 09/22/18 03:24 09/22/18 03:24 Labs: Laboratory Last Values WBC 4.7 K/mm3 (4.5-11.0) 09/22/18 03:24 RBC 3.37 M/mm3 (3.65-5.03) L 09/22/18 03:24 Hgb 11.3 gm/dl (11.8-15.2) L 09/22/18 03:24 Hct 34.9 % (35.5-45.6) L 09/22/18 03:24 MCV 104 fl (84-94) H 09/22/18 03:24 MCH 33 pg (28-32) H 09/22/18 03:24 MCHC 32 % (32-34) 09/22/18 03:24 RDW 18.2 % (13.2-15.2) H 09/22/18 03:24 Plt Count 121 K/mm3 (140-440) L 09/22/18 03:24 Lymph % (Auto) 26.6 % (13.4-35.0) 09/22/18 03:24 [place] % (Auto) 7.4 % (0.0-7.3) H 09/22/18 03:24 Eos % (Auto) 3.1 % (0.0-4.3) 09/22/18 03:24 Baso % (Auto) 1.0 % (0.0-1.8) 09/22/18 03:24 Lymph # 1.3 K/mm3 (1.2-5.4) 09/22/18 03:24 [place] # 0.3 K/mm3 (0.0-0.8) 09/22/18 03:24 Eos # 0.1 K/mm3 (0.0-0.4) 09/22/18 03:24 Baso # 0.0 K/mm3 (0.0-0.1) 09/22/18 03:24 Seg Neutrophils % 61.9 % (40.0-70.0) 09/22/18 03:24 Seg Neutrophils # 2.9 K/mm3 (1.8-7.7) 09/22/18 03:24 Sodium 141 mmol/L (137-145) 09/22/18 03:24 Potassium 3.8 mmol/L (3.6-5.0) D 09/22/18 03:24 Chloride 101.3 mmol/L (98-107) 09/22/18 03:24 Carbon Dioxide 21 mmol/L (22-30) L 09/22/18 03:24 Anion Gap 23 mmol/L 09/22/18 03:24 BUN 38 mg/dL (9-20) H 09/22/18 03:24 Creatinine 6.1 mg/dL (0.8-1.5) H 09/22/18 03:24 Estimated GFR 11 ml/min 09/22/18 03:24 BUN/Creatinine Ratio 6 % 09/22/18 03:24 Glucose 104 mg/dL (75-100) H 09/22/18 03:24 Calcium 9.3 mg/dL (8.4-10.2) 09/22/18 03:24 Total Creatine Kinase 40 units/L (55-170) L 09/22/18 05:09 CK-MB (CK-2) 3.4 ng/mL (0.0-4.0) 09/22/18 05:09 CK-MB (CK-2) Rel Index 8.5 (0-4) H 09/22/18 05:09 Troponin T 0.215 ng/mL (0.00-0.029) H* 09/22/18 05:09 Triglycerides 47 mg/dL (2-149) 09/21/18 21:45 Cholesterol 74 mg/dL (50-199) 09/21/18 21:45 LDL Cholesterol Direct 19 mg/dL (50-130) L 09/21/18 21:45 HDL Cholesterol 51 mg/dL (40-59) 09/21/18 21:45 Cholesterol/HDL Ratio 1.45 % 09/21/18 21:45 Active Medications - Current Medications Current Medications: Generic Name Dose Route Start Last Admin Trade Name Freq PRN Reason Stop Dose Admin Acetaminophen 650 mg 09/21/18 23:41 Tylenol PO Q4H PRN Pain MILD(1-3)/Fever >100.5/DOUGLAS Amlodipine Besylate 10 mg 09/22/18 10:00 09/22/18 09:04 Norvasc PO 10 mg DAILY BEAN Administration Atorvastatin Calcium 40 mg 09/22/18 22:00 Lipitor PO QHS BEAN Dextrose 50 ml 09/21/18 23:41 D50w (25gm) Syringe IV PRN PRN Hypoglycemia Famotidine 10 mg 09/22/18 10:00 09/22/18 09:04 Pepcid PO 10 mg BID BEAN Administration Fluoxetine HCl 40 mg 09/22/18 10:00 09/22/18 09:03 Prozac PO 40 mg QDAY BEAN Administration Hydralazine HCl 50 mg 09/22/18 06:00 09/22/18 05:38 Apresoline PO 50 mg Q8HR BEAN Administration Hydralazine HCl 20 mg 09/22/18 01:23 09/22/18 02:27 Apresoline IV 20 mg Q4H PRN Administration Hypertension Sodium Chloride 100 mls @ 999 mls/hr 09/22/18 08:24 Nacl 0.9% IV KATERYNA PRN Hypotension Insulin Human Lispro 0 unit 09/22/18 07:30 09/22/18 07:30 Humalog SUB-Q Not Given ACHS [facility] Protocol Isosorbide Mononitrate 30 mg 09/22/18 10:00 09/22/18 09:03 Imdur PO 30 mg QDAY [facility] Administration Losartan Potassium 100 mg 09/22/18 10:00 09/22/18 09:02 Cozaar PO 100 mg QDAY [facility] Administration Metoprolol Succinate 100 mg 09/22/18 08:00 09/22/18 09:12 Toprol Xl PO 100 mg QDAY@0800 [facility] Administration Morphine Sulfate 2 mg 09/21/18 23:41 09/22/18 09:04 Morphine IV 2 mg Q4H PRN Administration Pain, Moderate (4-6) Multivitamins/Iron 1 each 09/22/18 10:00 Hemocyte Plus PO QDAY [facility] Ondansetron HCl 4 mg 09/21/18 23:41 Zofran IV Q4H PRN Nausea And Vomiting Polyethylene Glycol 17 gm 09/21/18 23:45 Miralax 3350 PO QDAY PRN Constipation Sodium Chloride 10 ml 09/22/18 10:00 Sodium Chloride Flush Syringe 10 Ml IV BID BEAN Sodium Chloride 10 ml 09/21/18 23:41 Sodium Chloride Flush Syringe 10 Ml IV PRN PRN LINE FLUSH
[2018-09-22] MEDS ORDERED: ELIQUIS PO SCH (10:00)
[2018-09-22] MEDS: SODIUM CHLORIDE FLUSH SYRINGE 10 ML IV SCH (10:00)
[2018-09-22] MEDS: HEMOCYTE PLUS PO SCH (10:00)
[2018-09-22] MEDS ORDERED: NACL 0.9 (PRIMING MACHINE ONLY DIALYSIS) MC ONE (12:23)
[2018-09-22] MEDS: HEPARIN SUB-Q SCH ×2 (14:48→22:21)
[2018-09-22] MEDS: SODIUM CHLORIDE FLUSH SYRINGE 10 ML IV PRN (22:34)
[2018-09-23] MEDS: MORPHINE IV PRN ×5 (00:30→19:56)
[2018-09-23] MEDS: HEPARIN SUB-Q SCH ×2 (06:30→14:38)
[2018-09-23] MEDS: APRESOLINE PO SCH ×3 (06:30→22:13)
[2018-09-23] MEDS: HumaLOG SUB-Q SCH ×4 (07:30→22:55)
[2018-09-23] MEDS: TOPROL XL PO SCH (08:14)
[2018-09-23] MEDS: SODIUM CHLORIDE FLUSH SYRINGE 10 ML IV SCH ×3 (08:31→22:16)
--- NOTE | 2018-09-23 09:02 | Progress Note ---
Assessment and Plan Assessment and plan: 63-year-old man who presented to the hospital complaining of chest pain 2 hours PMH; A. fib, end-stage renal disease on dialysis, , CHF EF of 10%, hypertension, diabetes, CAD with recent cath showing a long LAD stenosis of 50-70% and proximal segments Chest x-ray shows large left pleural effusion similar to previous study. Diagnoses Chest pain Left pleural effusion End-stage renal disease CHF EF 10% Chronic CAD Diabetes Atrial fibrillation Hypercoagulable states Plan Cardiology input appreciated, chest pain is most likely related to his large pleural effusion Obtain thoracentesis and send fluid for analysis Continue dialysis per nephrology Optimize medications for chronic conditions DVT prophylaxis, on eliquis which will be held for planned thoracentesis on Monday. We'll restart after thoracentesis History Interval history: Review of systems Constitutional: No fevers, no malaise, no joint pains CVS: Continues to complain of pleuritic left-sided chest pain, no orthopnea, no dyspnea on exertion, no pedal edema GI: No abdominal pain, no diarrhea, no vomiting, no constipation Respiratory: No shortness of breath, no wheezing, no coughing Hospitalist Physical - Physical exam Narrative exam: General.: Appears well, no distress, nontoxic HEENT: Moist mucous membranes, extraocular muscles intact, no lymphadenopathy Neck: supple Cardiac: S1-S2 heard Lungs: Dullness to left lung Abdomen: soft , nontender, nondistended, bowel sounds positive Extremities: no edema clubbing or cyanosis Skin: no rash or lesions Neurologic: no gross focal deficits Psych: calm, and cooperative - Constitutional Vitals: Temp Pulse Resp BP Pulse Ox 98.8 F 71 20 143/96 97 09/23/18 05:34 09/23/18 08:18 09/23/18 08:18 09/23/18 08:14 09/23/18 08:18 General appearance: Present: no acute distress Results - Labs CBC & Chem 7: 09/22/18 03:24 09/22/18 03:24 Labs: Laboratory Last Values WBC 4.7 K/mm3 (4.5-11.0) 09/22/18 03:24 RBC 3.37 M/mm3 (3.65-5.03) L 09/22/18 03:24 Hgb 11.3 gm/dl (11.8-15.2) L 09/22/18 03:24 Hct 34.9 % (35.5-45.6) L 09/22/18 03:24 MCV 104 fl (84-94) H 09/22/18 03:24 MCH 33 pg (28-32) H 09/22/18 03:24 MCHC 32 % (32-34) 09/22/18 03:24 RDW 18.2 % (13.2-15.2) H 09/22/18 03:24 Plt Count 121 K/mm3 (140-440) L 09/22/18 03:24 Lymph % (Auto) 26.6 % (13.4-35.0) 09/22/18 03:24 [place] % (Auto) 7.4 % (0.0-7.3) H 09/22/18 03:24 Eos % (Auto) 3.1 % (0.0-4.3) 09/22/18 03:24 Baso % (Auto) 1.0 % (0.0-1.8) 09/22/18 03:24 Lymph # 1.3 K/mm3 (1.2-5.4) 09/22/18 03:24 [place] # 0.3 K/mm3 (0.0-0.8) 09/22/18 03:24 Eos # 0.1 K/mm3 (0.0-0.4) 09/22/18 03:24 Baso # 0.0 K/mm3 (0.0-0.1) 09/22/18 03:24 Seg Neutrophils % 61.9 % (40.0-70.0) 09/22/18 03:24 Seg Neutrophils # 2.9 K/mm3 (1.8-7.7) 09/22/18 03:24 Sodium 141 mmol/L (137-145) 09/22/18 03:24 Potassium 3.8 mmol/L (3.6-5.0) D 09/22/18 03:24 Chloride 101.3 mmol/L (98-107) 09/22/18 03:24 Carbon Dioxide 21 mmol/L (22-30) L 09/22/18 03:24 Anion Gap 23 mmol/L 09/22/18 03:24 BUN 38 mg/dL (9-20) H 09/22/18 03:24 Creatinine 6.1 mg/dL (0.8-1.5) H 09/22/18 03:24 Estimated GFR 11 ml/min 09/22/18 03:24 BUN/Creatinine Ratio 6 % 09/22/18 03:24 Glucose 104 mg/dL (75-100) H 09/22/18 03:24 POC Glucose 83 (70-105) 09/23/18 07:26 Calcium 9.3 mg/dL (8.4-10.2) 09/22/18 03:24 Total Creatine Kinase 40 units/L (55-170) L 09/22/18 05:09 CK-MB (CK-2) 3.4 ng/mL (0.0-4.0) 09/22/18 05:09 CK-MB (CK-2) Rel Index 8.5 (0-4) H 09/22/18 05:09 Troponin T 0.215 ng/mL (0.00-0.029) H* 09/22/18 05:09 Triglycerides 47 mg/dL (2-149) 09/21/18 21:45 Cholesterol 74 mg/dL (50-199) 09/21/18 21:45 LDL Cholesterol Direct 19 mg/dL (50-130) L 09/21/18 21:45 HDL Cholesterol 51 mg/dL (40-59) 09/21/18 21:45 Cholesterol/HDL Ratio 1.45 % 09/21/18 21:45 Active Medications - Current Medications Current Medications: Generic Name Dose Route Start Last Admin Trade Name Freq PRN Reason Stop Dose Admin Acetaminophen 650 mg 09/21/18 23:41 Tylenol PO Q4H PRN Pain MILD(1-3)/Fever >100.5/DOUGLAS Amlodipine Besylate 10 mg 09/22/18 10:00 09/22/18 09:04 Norvasc PO 10 mg DAILY BEAN Administration Atorvastatin Calcium 40 mg 09/22/18 22:00 09/22/18 22:22 Lipitor PO 40 mg QHS BEAN Administration Dextrose 50 ml 09/21/18 23:41 D50w (25gm) Syringe IV PRN PRN Hypoglycemia Famotidine 10 mg 09/22/18 10:00 09/22/18 22:22 Pepcid PO 10 mg BID BEAN Administration Fluoxetine HCl 40 mg 09/22/18 10:00 09/22/18 09:03 Prozac PO 40 mg QDAY [facility] Administration Heparin Sodium (Porcine) 5,000 unit 09/22/18 14:00 09/23/18 06:30 Heparin SUB-Q 09/25/18 23:59 5,000 unit Q8HR BEAN Administration Hydralazine HCl 50 mg 09/22/18 06:00 09/23/18 06:30 Apresoline PO 50 mg Q8HR BEAN Administration Hydralazine HCl 20 mg 09/22/18 01:23 09/22/18 02:27 Apresoline IV 20 mg Q4H PRN Administration Hypertension Sodium Chloride 100 mls @ 999 mls/hr 09/22/18 08:24 Nacl 0.9% IV KATERYNA PRN Hypotension Insulin Human Lispro 0 unit 09/22/18 07:30 09/22/18 22:55 Humalog SUB-Q Not Given ACHS [facility] Protocol Isosorbide Mononitrate 30 mg 09/22/18 10:00 09/22/18 09:03 Imdur PO 30 mg QDAY [facility] Administration Losartan Potassium 100 mg 09/22/18 10:00 09/22/18 09:02 Cozaar PO 100 mg QDAY [facility] Administration Metoprolol Succinate 100 mg 09/22/18 08:00 09/23/18 08:14 Toprol Xl PO 100 mg QDAY@0800 [facility] Administration Morphine Sulfate 2 mg 09/21/18 23:41 09/23/18 04:43 Morphine IV 2 mg Q4H PRN Administration Pain, Moderate (4-6) Multivitamins/Iron 1 each 09/22/18 10:00 09/22/18 10:00 Hemocyte Plus PO Not Given QDAY [facility] Ondansetron HCl 4 mg 09/21/18 23:41 Zofran IV Q4H PRN Nausea And Vomiting Polyethylene Glycol 17 gm 09/21/18 23:45 Miralax 3350 PO QDAY PRN Constipation Sodium Chloride 10 ml 09/22/18 10:00 09/23/18 08:31 Sodium Chloride Flush Syringe 10 Ml IV Not Given BID BEAN Sodium Chloride 10 ml 09/21/18 23:41 09/22/18 22:34 Sodium Chloride Flush Syringe 10 Ml IV 10 ml PRN PRN Administration LINE FLUSH
[2018-09-23] MEDS: COZAAR PO SCH (10:09)
[2018-09-23] MEDS: IMDUR PO SCH (10:10)
[2018-09-23] MEDS: PEPCID PO SCH ×2 (10:10→22:13)
[2018-09-23] MEDS: NORVASC PO SCH (10:11)
[2018-09-23] MEDS: PROzac PO SCH (10:11)
--- NOTE | 2018-09-23 10:25 | Progress Note ---
Assessment and Plan 1. ESRD: Continue hemodialysis three times a week, TTS schedule. Last dialyzed yesterday. 2. Chest pain: Evaluated by Cards. H/o Coronary artery disease and severe Cardiomyopathy. 3. A.fib: Rate controlled. 4. DM type 2. 5. Chronic pleural effusion. 6. Anemia: Epogen if needed. 7. PAD. Subjective Date of service: 09/23/18 Interval history: Patient was seen and examined at the bedside. Objective - Vital Signs Vital signs: Vital Signs - 12hr 09/22/18 09/22/18 09/22/18 22:28 22:29 23:28 Temperature 97.7 F 97.5 F L Pulse Rate 76 79 74 Pulse Rate [ Right Radial] Respiratory 17 20 Rate Respiratory Rate [Back] Respiratory Rate [Bilateral Leg] Blood Pressure 133/99 133/103 Blood Pressure 133/99 [Right] O2 Sat by Pulse 100 97 Oximetry 09/23/18 09/23/18 09/23/18 00:30 01:00 02:00 Temperature Pulse Rate Pulse Rate [ Right Radial] Respiratory 16 17 Rate Respiratory 17 Rate [Back] Respiratory 17 Rate [Bilateral Leg] Blood Pressure Blood Pressure [Right] O2 Sat by Pulse Oximetry 09/23/18 09/23/18 09/23/18 04:43 05:13 05:34 Temperature 98.8 F Pulse Rate 71 Pulse Rate [ Right Radial] Respiratory 16 16 20 Rate Respiratory Rate [Back] Respiratory Rate [Bilateral Leg] Blood Pressure 143/96 Blood Pressure [Right] O2 Sat by Pulse 97 Oximetry 09/23/18 09/23/18 09/23/18 06:30 08:14 08:18 Temperature Pulse Rate 71 71 Pulse Rate [ 71 Right Radial] Respiratory 20 Rate Respiratory Rate [Back] Respiratory Rate [Bilateral Leg] Blood Pressure 143/96 143/96 Blood Pressure [Right] O2 Sat by Pulse 97 Oximetry 09/23/18 09/23/18 10:09 10:11 Temperature Pulse Rate Pulse Rate [ Right Radial] Respiratory 20 Rate Respiratory Rate [Back] Respiratory Rate [Bilateral Leg] Blood Pressure 143/96 Blood Pressure [Right] O2 Sat by Pulse Oximetry - General Appearance General appearance: well-developed, appears stated age, other (not in distress, right IJ tunnel catheter) EENT: ATNC, PERRL Neck: supple Respiratory: Present: Clear to Ascultation, Decreased Breath Sounds Cardiology: S1S2, no murmurs Gastrointestinal: normoactive bowel sounds, no tenderness, no distended Integumentary: warm and dry, other (righ thumb tip chronic ischemic ulcer) Neurologic: no focal deficit, no asterixis, alert and oriented x3 Musculoskeletal: other (no edema) - Lab 09/22/18 03:24 09/22/18 03:24 Most recent lab results Calcium 9.3 mg/dL (8.4-10.2) 09/22/18 03:24 Medications & Allergies - Medications Allergies/Adverse Reactions: Allergies aspirin Allergy (Verified 03/16/17 01:25) Unknown stomach cramps pork derived (porcine) Allergy (Verified 03/16/17 01:27) Rash venom-honey bee [bee venom (honey bee)] Allergy (Verified 03/16/17 01:27) Anaphylaxis Pork/Porcine Containing Products Adverse Reaction (Severe, Verified 02/13/17 09:31) Nausea,VOMITING Home Medications: Home Medications Medication Instructions Recorded Confirmed Last Taken Type Acetaminophen [Acetaminophen TAB] 650 mg PO Q4H PRN tablet 05/05/18 09/21/18 09/21/18 Rx diphenhydrAMINE [Benadryl CAP] 25 mg PO Q6H PRN #15 capsule 05/05/18 09/21/18 09/21/18 Rx Apixaban [Eliquis] 2.5 mg PO Q12HR #60 tablet 09/05/18 09/21/18 09/21/18 Rx AtorvaSTATin [Lipitor] 40 mg PO QHS #30 tablet 09/05/18 09/21/18 09/21/18 Rx Epoetin Prashant 10,000 Unit [Procrit] 10,000 unit SUB-Q KATERYNA PRN #30 vial 09/05/18 09/21/18 09/21/18 Rx FLUoxetine HCL [Fluoxetine HCl] 40 mg PO QDAY #30 capsule 09/05/18 09/21/18 09/21/18 Rx Famotidine [Pepcid] 10 mg PO BID #15 tablet 09/05/18 09/21/18 09/21/18 Rx Fe Fumarate/FA/Mv, Min Comb#15 1 each PO QDAY #30 capsule 09/05/18 09/21/1811/04 Rx [Hemocyte Plus] ISOSORBIDE MONOnitrate [Imdur ER] 30 mg PO QDAY #30 tablet 09/05/18 09/21/18 09/21/18 Rx Lactulose [Cephulac] 20 gm PO BID oral.liqd 09/05/18 09/21/18 09/21/18 Rx Losartan [Cozaar] 100 mg PO QDAY 30 Days tablet 09/05/18 09/21/18 09/21/18 Rx Metoprolol Xl [Metoprolol 100 mg PO QDAY #30 tablet 09/05/18 09/21/18 09/21/18 Rx SUCCINATE ER TAB] Polyethylene Glycol 3350 [Miralax 17 gm PO QDAY PRN powd.pack 09/05/18 09/21/18 09/21/18 Rx 3350] Sennosides/Docusate [Senokot S] 1 tab PO BID tablet 09/05/18 09/21/18 09/21/18 Rx amLODIPine [Norvasc] 10 mg PO DAILY #30 tablet 09/05/18 09/21/18 09/21/18 Rx hydrALAZINE [Apresoline TAB] 50 mg PO Q8HR #90 tablet 09/05/18 09/21/18 09/21/18 Rx oxyCODONE /ACETAMINOPHEN [Percocet 1 tab PO Q6H PRN #20 tablet 09/05/18 09/21/18 09/21/18 Rx 5/325 mg] Active Medications: Generic Name Dose Route Start Last Admin Trade Name Freq PRN Reason Stop Dose Admin Acetaminophen 650 mg 09/21/18 23:41 Tylenol PO Q4H PRN Pain MILD(1-3)/Fever >100.5/DOUGLAS Amlodipine Besylate 10 mg 09/22/18 10:00 09/23/18 10:11 Norvasc PO 10 mg DAILY BEAN Administration Atorvastatin Calcium 40 mg 09/22/18 22:00 09/22/18 22:22 Lipitor PO 40 mg QHS BEAN Administration Dextrose 50 ml 09/21/18 23:41 D50w (25gm) Syringe IV PRN PRN Hypoglycemia Famotidine 10 mg 09/22/18 10:00 09/23/18 10:10 Pepcid PO 10 mg BID BEAN Administration Fluoxetine HCl 40 mg 09/22/18 10:00 09/23/18 10:11 Prozac PO 40 mg QDAY [facility] Administration Heparin Sodium (Porcine) 5,000 unit 09/22/18 14:00 09/23/18 06:30 Heparin SUB-Q 09/25/18 23:59 5,000 unit Q8HR BEAN Administration Hydralazine HCl 50 mg 09/22/18 06:00 09/23/18 06:30 Apresoline PO 50 mg Q8HR BEAN Administration Hydralazine HCl 20 mg 09/22/18 01:23 09/22/18 02:27 Apresoline IV 20 mg Q4H PRN Administration Hypertension Sodium Chloride 100 mls @ 999 mls/hr 09/22/18 08:24 Nacl 0.9% IV KATERYNA PRN Hypotension Insulin Human Lispro 0 unit 09/22/18 07:30 09/23/18 07:30 [facility]alog SUB-Q [facility] Protocol Isosorbide Mononitrate 30 mg 09/22/18 10:00 09/23/18 10:10 Imdur PO 30 mg QDAY [facility] Administration Losartan Potassium 100 mg 09/22/18 10:00 09/23/18 10:09 Cozaar PO 100 mg QDAY [facility] Administration Metoprolol Succinate 100 mg 09/22/18 08:00 09/23/18 08:14 Toprol Xl PO 100 mg QDAY@0800 [facility] Administration Morphine Sulfate 2 mg 09/21/18 23:41 09/23/18 10:11 Morphine IV 2 mg Q4H PRN Administration Pain, Moderate (4-6) Multivitamins/Iron 1 each 09/22/18 10:00 09/22/18 10:00 Hemocyte Plus PO Not Given QDAY [facility] Ondansetron HCl 4 mg 09/21/18 23:41 09/23/18 10:12 Zofran IV 4 mg Q4H PRN Administration Nausea And Vomiting Polyethylene Glycol 17 gm 09/21/18 23:45 Miralax 3350 PO QDAY PRN Constipation Sodium Chloride 10 ml 09/22/18 10:00 09/23/18 10:19 Sodium Chloride Flush Syringe 10 Ml IV 10 ml BID BEAN Administration Sodium Chloride 10 ml 09/21/18 23:41 09/22/18 22:34 Sodium Chloride Flush Syringe 10 Ml IV 10 ml PRN PRN Administration LINE FLUSH
[2018-09-23] MEDS: HEMOCYTE PLUS PO SCH (11:11)
--- NOTE | 2018-09-23 12:00 | Progress Note ---
Assessment and Plan 1. Chest pain probably pleuritic from left-sided pleural effusion 2. Chronic atrial fibrillation 3. Coronary artery disease 4. Essential hypertension 5. End-stage renal disease on hemodialysis 6. PTSD Plan. Patient's chest pain appears to be noncardiac probably related to pleurisy from left-sided pleural effusion. Recommend pulmonary consult to evaluate. Serial cardiac isoenzymes fequivocally elevated secondary to ESRD and trend flat,not consistent with acute coronary syndrome. Subjective Date of service: 09/23/18 Interval history: Patient having vomiting Objective Vital Signs Temp Pulse Pulse Resp Resp Resp BP 09/23/18 10:11 20 09/23/18 10:09 143/96 09/23/18 08:18 71 20 09/23/18 08:14 71 143/96 09/23/18 06:30 71 143/96 09/23/18 05:34 98.8 F 71 20 143/96 09/23/18 05:13 16 09/23/18 04:43 16 09/23/18 02:00 17 17 09/23/18 01:00 17 09/23/18 00:30 16 09/22/18 23:28 97.5 F L 74 20 133/103 09/22/18 22:29 79 133/99 09/22/18 22:28 97.7 F 76 17 09/22/18 22:23 09/22/18 22:00 09/22/18 20:35 17 09/22/18 20:05 17 09/22/18 16:43 97.6 F 72 19 122/92 09/22/18 14:49 77 123/77 09/22/18 13:40 98.0 F 78 18 131/87 09/22/18 13:30 80 140/74 09/22/18 13:15 81 144/76 09/22/18 13:00 74 123/95 09/22/18 12:45 72 129/88 09/22/18 12:30 82 113/85 09/22/18 12:15 65 146/71 09/22/18 12:00 81 134/82 BP Pulse Ox 09/23/18 10:11 09/23/18 10:09 09/23/18 08:18 97 09/23/18 08:14 09/23/18 06:30 09/23/18 05:34 97 09/23/18 05:13 09/23/18 04:43 09/23/18 02:00 09/23/18 01:00 09/23/18 00:30 09/22/18 23:28 97 09/22/18 22:29 09/22/18 22:28 133/99 100 09/22/18 22:23 96 09/22/18 22:00 99 09/22/18 20:35 09/22/18 20:05 09/22/18 16:43 99 09/22/18 14:49 09/22/18 13:40 09/22/18 13:30 09/22/18 13:15 09/22/18 13:00 09/22/18 12:45 09/22/18 12:30 09/22/18 12:15 09/22/18 12:00 - Physical Examination General: Appears Well HEENT: Positive: EOMI, Normocephaly, Mucus Membranes Moist Neck: Positive: neck supple, trachea midline, JVD/HJR Cardiac: Positive: irregularly irregular, S1/S2, S3, PMI, Dilated, Laterally Displaced Lungs: Positive: Other (decreased breath sounds left base) Neuro: Positive: Grossly Intact Abdomen: Positive: Unremarkable, Active Bowel Sounds Extremities: Absent: edema - EKG Sinus rhythms and dysrhythmias: sinus rhythm
[2018-09-23] MEDS: SODIUM CHLORIDE FLUSH SYRINGE 10 ML IV PRN (19:57)
[2018-09-24] MEDS: MORPHINE IV PRN ×4 (00:34→21:33)
[2018-09-24] MEDS: HEPARIN SUB-Q SCH ×4 (06:29→21:09)
[2018-09-24] MEDS: APRESOLINE PO SCH ×3 (06:30→21:32)
[2018-09-24] MEDS: IMDUR PO SCH (10:04)
[2018-09-24] MEDS: COZAAR PO SCH (10:04)
[2018-09-24] MEDS: SODIUM CHLORIDE FLUSH SYRINGE 10 ML IV SCH ×2 (10:06→21:01)
[2018-09-24 11:03] LABS: INR 1.24 (0.87-1.13)
[2018-09-24] MEDS: HumaLOG SUB-Q SCH ×4 (11:19→21:32)
--- NOTE | 2018-09-24 11:42 | Progress Note ---
Assessment and Plan Left pleural effusion DM type II PVD s/p left arm amputation Hypertension ESRD on hemodialysis Thrombocytopenia, chronic Hx of Nonischemic CMP, EF 15-20% Non-obstructive CAD [facility] 01/2017 revealed non-obstructive, single vessel disease of the proximal LAD recommended for medical therapy. Permanent Atrial fibrillation, rate control on low dose eliquis as an outpatient Recommend: Dialysis for fluid management. Continue medical therapy for chronic atrial fibrillation, dilated cardiomyopathy and non-obstructive CAD as tolerated. Conservative cardiac management. Subjective Date of service: 09/24/18 Interval history: Patient is resting in bed comfortably. Awaits planned thoracentesis. Afib with a well controlled ventricular rate on telemetry. Objective Vital Signs Temp Pulse Resp Resp BP BP Pulse Ox 09/24/18 10:06 135/91 09/24/18 10:04 70 135/91 09/24/18 05:40 66 100 09/24/18 05:39 97.3 F L 56 L 18 122/91 85 09/24/18 01:04 17 09/24/18 00:34 17 09/23/18 22:59 97.5 F L 64 18 122/83 100 09/23/18 22:13 70 123/88 09/23/18 22:10 97.6 F 70 17 123/88 100 09/23/18 20:26 17 09/23/18 20:00 17 09/23/18 19:56 16 09/23/18 16:54 99.6 F 63 20 118/85 97 09/23/18 14:37 20 - Physical Examination General: Appears Well HEENT: Positive: PERRL Neck: Positive: trachea midline Cardiac: Positive: Reg Rate and Rhythm Lungs: Positive: Decreased Breath Sounds Neuro: Positive: Grossly Intact - Labs and Meds Coagulation 09/24/18 Range/Units 10:17 PT 16.4 H (12.2-14.9) Sec. INR 1.24 H (0.87-1.13)
[2018-09-24] MEDS: NORVASC PO SCH (12:06)
[2018-09-24] MEDS: TOPROL XL PO SCH (12:06)
[2018-09-24] MEDS: HEMOCYTE PLUS PO SCH ×2 (12:14→16:08)
[2018-09-24] MEDS: PROzac PO SCH ×2 (12:14→16:08)
[2018-09-24] MEDS: PEPCID PO SCH ×3 (12:14→21:01)
--- NOTE | 2018-09-24 12:40 | Progress Note ---
Assessment and Plan Assessment and plan: 63-year-old man who presented to the hospital complaining of chest pain 2 hours PMH; A. fib, end-stage renal disease on dialysis, , CHF EF of 10%, hypertension, diabetes, CAD with recent cath showing a long LAD stenosis of 50-70% and proximal segments Chest x-ray shows large left pleural effusion similar to previous study. Diagnoses Chest pain Left pleural effusion End-stage renal disease CHF EF 10% Chronic CAD Diabetes Atrial fibrillation Hypercoagulable states Plan Cardiology input appreciated, chest pain is most likely related to his large pleural effusion Obtain thoracentesis and send fluid for analysis Continue dialysis per nephrology Optimize medications for chronic conditions DVT prophylaxis, on eliquis which will be held for planned thoracentesis on Monday. We'll restart after thoracentesis History Interval history: Review of systems Constitutional: No fevers, no malaise, no joint pains CVS: Continues to complain of pleuritic left-sided chest pain, no orthopnea, no dyspnea on exertion, no pedal edema GI: No abdominal pain, no diarrhea, no vomiting, no constipation Respiratory: No shortness of breath, no wheezing, no coughing Hospitalist Physical - Physical exam Narrative exam: General.: Appears well, no distress, nontoxic HEENT: Moist mucous membranes, extraocular muscles intact, no lymphadenopathy Neck: supple Cardiac: S1-S2 heard Lungs: Dullness to left lung Abdomen: soft , nontender, nondistended, bowel sounds positive Extremities: no edema clubbing or cyanosis Skin: no rash or lesions Neurologic: no gross focal deficits Psych: calm, and cooperative - Constitutional Vitals: Temp Pulse Resp BP Pulse Ox 97.5 F L 67 20 147/101 97 09/24/18 11:57 09/24/18 11:57 09/24/18 11:57 09/24/18 11:57 09/24/18 11:57 General appearance: Present: no acute distress Results - Labs CBC & Chem 7: 09/22/18 03:24 09/22/18 03:24 Labs: Laboratory Last Values WBC 4.7 K/mm3 (4.5-11.0) 09/22/18 03:24 RBC 3.37 M/mm3 (3.65-5.03) L 09/22/18 03:24 Hgb 11.3 gm/dl (11.8-15.2) L 09/22/18 03:24 Hct 34.9 % (35.5-45.6) L 09/22/18 03:24 MCV 104 fl (84-94) H 09/22/18 03:24 MCH 33 pg (28-32) H 09/22/18 03:24 MCHC 32 % (32-34) 09/22/18 03:24 RDW 18.2 % (13.2-15.2) H 09/22/18 03:24 Plt Count 121 K/mm3 (140-440) L 09/22/18 03:24 Lymph % (Auto) 26.6 % (13.4-35.0) 09/22/18 03:24 Foster % (Auto) 7.4 % (0.0-7.3) H 09/22/18 03:24 Eos % (Auto) 3.1 % (0.0-4.3) 09/22/18 03:24 Baso % (Auto) 1.0 % (0.0-1.8) 09/22/18 03:24 Lymph # 1.3 K/mm3 (1.2-5.4) 09/22/18 03:24 Foster # 0.3 K/mm3 (0.0-0.8) 09/22/18 03:24 Eos # 0.1 K/mm3 (0.0-0.4) 09/22/18 03:24 Baso # 0.0 K/mm3 (0.0-0.1) 09/22/18 03:24 Seg Neutrophils % 61.9 % (40.0-70.0) 09/22/18 03:24 Seg Neutrophils # 2.9 K/mm3 (1.8-7.7) 09/22/18 03:24 PT 16.4 Sec. (12.2-14.9) H 09/24/18 10:17 INR 1.24 (0.87-1.13) H 09/24/18 10:17 Sodium 141 mmol/L (137-145) 09/22/18 03:24 Potassium 3.8 mmol/L (3.6-5.0) D 09/22/18 03:24 Chloride 101.3 mmol/L (98-107) 09/22/18 03:24 Carbon Dioxide 21 mmol/L (22-30) L 09/22/18 03:24 Anion Gap 23 mmol/L 09/22/18 03:24 BUN 38 mg/dL (9-20) H 09/22/18 03:24 Creatinine 6.1 mg/dL (0.8-1.5) H 09/22/18 03:24 Estimated GFR 11 ml/min 09/22/18 03:24 BUN/Creatinine Ratio 6 % 09/22/18 03:24 Glucose 104 mg/dL (75-100) H 09/22/18 03:24 POC Glucose 90 (70-105) 09/24/18 12:03 Calcium 9.3 mg/dL (8.4-10.2) 09/22/18 03:24 Total Creatine Kinase 40 units/L (55-170) L 09/22/18 05:09 CK-MB (CK-2) 3.4 ng/mL (0.0-4.0) 09/22/18 05:09 CK-MB (CK-2) Rel Index 8.5 (0-4) H 09/22/18 05:09 Troponin T 0.215 ng/mL (0.00-0.029) H* 09/22/18 05:09 Triglycerides 47 mg/dL (2-149) 09/21/18 21:45 Cholesterol 74 mg/dL (50-199) 09/21/18 21:45 LDL Cholesterol Direct 19 mg/dL (50-130) L 09/21/18 21:45 HDL Cholesterol 51 mg/dL (40-59) 09/21/18 21:45 Cholesterol/HDL Ratio 1.45 % 09/21/18 21:45 Active Medications - Current Medications Current Medications: Generic Name Dose Route Start Last Admin Trade Name Freq PRN Reason Stop Dose Admin Acetaminophen 650 mg 09/21/18 23:41 Tylenol PO Q4H PRN Pain MILD(1-3)/Fever >100.5/DOUGLAS Amlodipine Besylate 10 mg 09/22/18 10:00 09/24/18 12:06 Norvasc PO 10 mg DAILY BEAN Administration Atorvastatin Calcium 40 mg 09/22/18 22:00 09/23/18 22:13 Lipitor PO 40 mg QHS BEAN Administration Dextrose 50 ml 09/21/18 23:41 D50w (25gm) Syringe IV PRN PRN Hypoglycemia Famotidine 10 mg 09/22/18 10:00 09/24/18 12:14 Pepcid PO Not Given BID [facility] Fluoxetine HCl 40 mg 09/22/18 10:00 09/24/18 12:14 Prozac PO Not Given QDAY [facility] Heparin Sodium (Porcine) 5,000 unit 09/22/18 14:00 09/24/18 06:30 Heparin SUB-Q 09/25/18 23:59 Not Given Q8HR [facility] Hydralazine HCl 50 mg 09/22/18 06:00 09/24/18 06:30 Apresoline PO Not Given Q8HR [facility] Hydralazine HCl 20 mg 09/22/18 01:23 09/22/18 02:27 Apresoline IV 20 mg Q4H PRN Administration Hypertension Sodium Chloride 100 mls @ 999 mls/hr 09/22/18 08:24 Nacl 0.9% IV KATERYNA PRN Hypotension Insulin Human Lispro 0 unit 09/22/18 07:30 09/24/18 12:15 Humalog SUB-Q Not Given [facility] Protocol Isosorbide Mononitrate 30 mg 09/22/18 10:00 09/24/18 10:04 Imdur PO 30 mg QDAY [facility] Administration Losartan Potassium 100 mg 09/22/18 10:00 09/24/18 10:04 Cozaar PO 100 mg QDAY [facility] Administration Metoprolol Succinate 100 mg 09/22/18 08:00 09/24/18 12:06 Toprol Xl PO 100 mg QDAY@0800 [facility] Administration Morphine Sulfate 2 mg 09/21/18 23:41 09/24/18 12:10 Morphine IV 2 mg Q4H PRN Administration Pain, Moderate (4-6) Multivitamins/Iron 1 each 09/22/18 10:00 09/24/18 12:14 Hemocyte Plus PO Not Given QDAY [facility] Ondansetron HCl 4 mg 09/21/18 23:41 09/23/18 10:12 Zofran IV 4 mg Q4H PRN Administration Nausea And Vomiting Polyethylene Glycol 17 gm 09/21/18 23:45 Miralax 3350 PO QDAY PRN Constipation Sodium Chloride 10 ml 09/22/18 10:00 09/24/18 10:06 Sodium Chloride Flush Syringe 10 Ml IV 10 ml BID BEAN Administration Sodium Chloride 10 ml 09/21/18 23:41 09/23/18 19:57 Sodium Chloride Flush Syringe 10 Ml IV 10 ml PRN PRN Administration LINE FLUSH
--- NOTE | 2018-09-24 12:45 | Progress Note ---
Assessment and Plan 1. ESRD: Continue hemodialysis three times a week, TTS schedule. Last dialyzed 2 days ago. 2. Chest pain: Evaluated by Cards. H/o Coronary artery disease and severe Cardiomyopathy. 3. A.fib: Rate controlled. 4. DM type 2. 5. Chronic pleural effusion. 6. Anemia: Epogen if needed. 7. PAD. Subjective Date of service: 09/24/18 Interval history: Patient was seen and examined at the bedside. No new complaint. Objective - Vital Signs Vital signs: Vital Signs - 12hr 09/24/18 09/24/18 09/24/18 01:04 05:39 05:40 Temperature 97.3 F L Pulse Rate 56 L 66 Respiratory 17 18 Rate Blood Pressure 122/91 O2 Sat by Pulse 85 100 Oximetry 09/24/18 09/24/18 09/24/18 10:04 10:06 11:57 Temperature 97.5 F L Pulse Rate 70 67 Respiratory 20 Rate Blood Pressure 135/91 135/91 147/101 O2 Sat by Pulse 97 Oximetry - General Appearance General appearance: well-developed, appears stated age, other (not in distress, right IJ tunnel catheter) EENT: ATNC Neck: supple Respiratory: Present: Clear to Ascultation Cardiology: S1S2, no murmurs Gastrointestinal: normoactive bowel sounds, no tenderness, no distended Integumentary: warm and dry Neurologic: no asterixis, alert and oriented x3 Musculoskeletal: other (left below elbow amputation, right thumb tip is nectrotic) - Lab 09/22/18 03:24 09/22/18 03:24 Most recent lab results Calcium 9.3 mg/dL (8.4-10.2) 09/22/18 03:24 Medications & Allergies - Medications Allergies/Adverse Reactions: Allergies aspirin Allergy (Verified 03/16/17 01:25) Unknown stomach cramps pork derived (porcine) Allergy (Verified 03/16/17 01:27) Rash venom-honey bee [bee venom (honey bee)] Allergy (Verified 03/16/17 01:27) Anaphylaxis Pork/Porcine Containing Products Adverse Reaction (Severe, Verified 02/13/17 09:31) Nausea,VOMITING Home Medications: Home Medications Medication Instructions Recorded Confirmed Last Taken Type Acetaminophen [Acetaminophen TAB] 650 mg PO Q4H PRN tablet 05/05/18 09/21/18 09/21/18 Rx diphenhydrAMINE [Benadryl CAP] 25 mg PO Q6H PRN #15 capsule 05/05/18 09/21/18 09/21/18 Rx Apixaban [Eliquis] 2.5 mg PO Q12HR #60 tablet 09/05/18 09/21/18 09/21/18 Rx AtorvaSTATin [Lipitor] 40 mg PO QHS #30 tablet 09/05/18 09/21/18 09/21/18 Rx Epoetin Prashant 10,000 Unit [Procrit] 10,000 unit SUB-Q KATERYNA PRN #30 vial 09/05/18 09/21/18 09/21/18 Rx FLUoxetine HCL [Fluoxetine HCl] 40 mg PO QDAY #30 capsule 09/05/18 09/21/18 09/21/18 Rx Famotidine [Pepcid] 10 mg PO BID #15 tablet 09/05/18 09/21/18 09/21/18 Rx Fe Fumarate/FA/Mv, Min Comb#15 1 each PO QDAY #30 capsule 09/05/18 09/21/18 09/21/18 Rx [Hemocyte Plus] ISOSORBIDE MONOnitrate [Imdur ER] 30 mg PO QDAY #30 tablet 09/05/18 09/21/18 09/21/18 Rx Lactulose [Cephulac] 20 gm PO BID oral.liqd 09/05/18 09/21/18 09/21/18 Rx Losartan [Cozaar] 100 mg PO QDAY 30 Days tablet 09/05/18 09/21/18 09/21/18 Rx Metoprolol Xl [Metoprolol 100 mg PO QDAY #30 tablet 09/05/18 09/21/18 09/21/18 Rx SUCCINATE ER TAB] Polyethylene Glycol 3350 [Miralax 17 gm PO QDAY PRN powd.pack 09/05/18 09/21/18 09/21/18 Rx 3350] Sennosides/Docusate [Senokot S] 1 tab PO BID tablet 09/05/18 09/21/18 09/21/18 Rx amLODIPine [Norvasc] 10 mg PO DAILY #30 tablet 09/05/18 09/21/18 09/21/18 Rx hydrALAZINE [Apresoline TAB] 50 mg PO Q8HR #90 tablet 09/05/18 09/21/18 09/21/18 Rx oxyCODONE /ACETAMINOPHEN [Percocet 1 tab PO Q6H PRN #20 tablet 09/05/18 09/21/18 09/21/18 Rx 5/325 mg] Active Medications: Generic Name Dose Route Start Last Admin Trade Name Freq PRN Reason Stop Dose Admin Acetaminophen 650 mg 09/21/18 23:41 Tylenol PO Q4H PRN Pain MILD(1-3)/Fever >100.5/DOUGLAS Amlodipine Besylate 10 mg 09/22/18 10:00 09/24/18 12:06 Norvasc PO 10 mg DAILY BEAN Administration Atorvastatin Calcium 40 mg 09/22/18 22:00 09/23/18 22:13 Lipitor PO 40 mg QHS [facility] Administration Dextrose 50 ml 09/21/18 23:41 D50w (25gm) Syringe IV PRN PRN Hypoglycemia Famotidine 10 mg 09/22/18 10:00 09/24/18 12:14 Pepcid PO Not Given BID [facility] Fluoxetine HCl 40 mg 09/22/18 10:00 09/24/18 12:14 Prozac PO Not Given QDAY [facility] Heparin Sodium (Porcine) 5,000 unit 09/22/18 14:00 09/24/18 06:30 Heparin SUB-Q 09/25/18 23:59 Not Given Q8HR [facility] Hydralazine HCl 50 mg 09/22/18 06:00 09/24/18 06:30 Apresoline PO Not Given Q8HR [facility] Hydralazine HCl 20 mg 09/22/18 01:23 09/22/18 02:27 Apresoline IV 20 mg Q4H PRN Administration Hypertension Sodium Chloride 100 mls @ 999 mls/hr 09/22/18 08:24 Nacl 0.9% IV KATERYNA PRN Hypotension Insulin Human Lispro 0 unit 09/22/18 07:30 09/24/18 12:15 Humalog SUB-Q Not Given ACHS [facility] Protocol Isosorbide Mononitrate 30 mg 09/22/18 10:00 09/24/18 10:04 Imdur PO 30 mg QDAY BEAN Administration Losartan Potassium 100 mg 09/22/18 10:00 09/24/18 10:04 Cozaar PO 100 mg QDAY [facility] Administration Metoprolol Succinate 100 mg 09/22/18 08:00 09/24/18 12:06 Toprol Xl PO 100 mg QDAY@0800 [facility] Administration Morphine Sulfate 2 mg 09/21/18 23:41 09/24/18 12:10 Morphine IV 2 mg Q4H PRN Administration Pain, Moderate (4-6) Multivitamins/Iron 1 each 09/22/18 10:00 09/24/18 12:14 Hemocyte Plus PO Not Given QDAY [facility] Ondansetron HCl 4 mg 09/21/18 23:41 09/23/18 10:12 Zofran IV 4 mg Q4H PRN Administration Nausea And Vomiting Polyethylene Glycol 17 gm 09/21/18 23:45 Miralax 3350 PO QDAY PRN Constipation Sodium Chloride 10 ml 09/22/18 10:00 09/24/18 10:06 Sodium Chloride Flush Syringe 10 Ml IV 10 ml BID BEAN Administration Sodium Chloride 10 ml 09/21/18 23:41 09/23/18 19:57 Sodium Chloride Flush Syringe 10 Ml IV 10 ml PRN PRN Administration LINE FLUSH
[2018-09-24] MEDS ORDERED: XYLOCAINE 1% 20 mL ONE (13:55)
--- NOTE | 2018-09-24 14:18 | Procedure Note ---
Date of procedure: 09/24/18 Pre-op diagnosis: lt. pleural effusion Post-op diagnosis: same Procedure: thorasentesis Findings: straw colored fluid Anesthesia: local Surgeon: EMERALD PAYAN Estimated blood loss: none Pathology: list (120cc lt effusion) Specimen disposition: to lab Condition: stable Disposition: floor
--- NOTE | 2018-09-24 14:54 | Ultrasound Report ---
Ultrasound-guided left thoracentesis: Imaging over the posterior left chest demonstrates a moderate volume of clear pleural fluid. The skin was marked for entrance site. The skin was cleansed and draped. 1% lidocaine used for local anesthesia. A small skin ezequiel a 5 [place] Y[place] catheter was successfully placed into the fluid pocket. 120 cc of straw-colored fluid was successfully removed for laboratory evaluation and a total of 720 cc was removed. Imaging following removal of the fluid showed no significant residual. There is no apparent patient or technical complications. AP chest: An expiratory view was obtained following left thoracentesis. No pneumothorax identified. There is significantly less fluid noted in the left chest than on prior exam of September 21. There is still a small amount residual at the left lung base with consolidation at the base. The findings otherwise appear unchanged. Impression: No complication of left thoracentesis identified.
[2018-09-24 16:26] LABS: Total Cells Counted 100 /mm3
[2018-09-25] MEDS: MORPHINE IV PRN ×4 (02:46→15:54)
[2018-09-25] MEDS: APRESOLINE PO SCH ×2 (06:13→14:44)
[2018-09-25] MEDS: HEPARIN SUB-Q SCH ×2 (06:16→14:16)
--- NOTE | 2018-09-25 08:41 | Progress Note ---
Assessment and Plan Left pleural effusion s/p thoracentesis Acute systolic heart failure DM type II PVD s/p left arm amputation Hypertension ESRD on hemodialysis Thrombocytopenia, chronic Hx of Nonischemic CMP, EF 15-20% Non-obstructive CAD [facility] 01/2017 revealed non-obstructive, single vessel disease of the proximal LAD recommended for medical therapy. Permanent Atrial fibrillation, rate control on low dose eliquis as an outpatient Recommend: Dialysis for fluid management. Continue medical therapy for chronic atrial fibrillation, dilated cardiomyopathy and non-obstructive CAD as tolerated. Otherwise, conservative cardiac management. Subjective Date of service: 09/25/18 Interval history: Patient has no complaints; reports his breathing is better. Objective Vital Signs Temp Pulse Pulse Resp Resp BP Pulse Ox 09/25/18 07:22 18 09/25/18 06:52 17 09/25/18 06:13 58 L 130/88 09/25/18 04:05 97.4 F L 58 L 18 130/88 98 09/25/18 03:16 18 09/25/18 02:46 18 09/24/18 22:03 18 09/24/18 22:00 60 18 09/24/18 21:33 18 09/24/18 21:32 60 107/81 09/24/18 21:07 98.0 F 56 L 20 107/81 98 09/24/18 20:00 18 09/24/18 17:40 97.6 F 63 20 111/84 98 09/24/18 11:57 97.5 F L 67 20 147/101 97 09/24/18 10:06 135/91 09/24/18 10:04 70 135/91 - Physical Examination General: No Apparent Distress HEENT: Positive: PERRL Neck: Positive: trachea midline Cardiac: Positive: irregularly irregular Lungs: Positive: Decreased Breath Sounds Neuro: Positive: Grossly Intact Abdomen: Positive: Active Bowel Sounds Extremities: Absent: edema - Labs and Meds Coagulation 09/24/18 Range/Units 10:17 PT 16.4 H (12.2-14.9) Sec. INR 1.24 H (0.87-1.13)
--- NOTE | 2018-09-25 10:28 | Progress Note ---
Assessment and Plan 1. ESRD: Continue hemodialysis three times a week, TTS schedule. Last dialyzed 2 days ago. 2. Chest pain: Evaluated by Cards. H/o Coronary artery disease and severe Cardiomyopathy. 3. A.fib: Rate controlled. 4. DM type 2. 5. Chronic pleural effusion: S/p pleurocentesis. 6. Anemia: Epogen if needed. 7. PAD. Subjective Date of service: 09/25/18 Interval history: Patient was seen and examined at the bedside. No new complaint. Objective - Vital Signs Vital signs: Vital Signs - 12hr 09/25/18 09/25/18 09/25/18 02:46 03:16 04:05 Temperature 97.4 F L Pulse Rate 58 L Respiratory 18 18 18 Rate Blood Pressure 130/88 O2 Sat by Pulse 98 Oximetry 09/25/18 09/25/18 09/25/18 06:13 06:52 07:22 Temperature Pulse Rate 58 L Respiratory 17 18 Rate Blood Pressure 130/88 O2 Sat by Pulse Oximetry - General Appearance General appearance: well-developed, appears stated age, other (not in distress, right IJ tunnel catheter) EENT: ATNC, PERRL Neck: supple Respiratory: Present: Clear to Ascultation Cardiology: S1S2, no murmurs Gastrointestinal: normoactive bowel sounds, no tenderness, no distended Integumentary: other (right thumb tip necrotic) Neurologic: no focal deficit, no asterixis, alert and oriented x3 Musculoskeletal: other (no edema, left below elbow amputation) - Lab 09/22/18 03:24 09/22/18 03:24 Most recent lab results Calcium 9.3 mg/dL (8.4-10.2) 09/22/18 03:24 Medications & Allergies - Medications Allergies/Adverse Reactions: Allergies aspirin Allergy (Verified 03/16/17 01:25) Unknown stomach cramps pork derived (porcine) Allergy (Verified 03/16/17 01:27) Rash venom-honey bee [bee venom (honey bee)] Allergy (Verified 03/16/17 01:27) Anaphylaxis Pork/Porcine Containing Products Adverse Reaction (Severe, Verified 02/13/17 09:31) Nausea,VOMITING Home Medications: Home Medications Medication Instructions Recorded Confirmed Last Taken Type Acetaminophen [Acetaminophen TAB] 650 mg PO Q4H PRN tablet 05/05/18 09/21/18 09/21/18 Rx diphenhydrAMINE [Benadryl CAP] 25 mg PO Q6H PRN #15 capsule 05/05/18 09/21/18 09/21/18 Rx Apixaban [Eliquis] 2.5 mg PO Q12HR #60 tablet 09/05/18 09/21/18 09/21/18 Rx AtorvaSTATin [Lipitor] 40 mg PO QHS #30 tablet 09/05/18 09/21/18 09/21/18 Rx Epoetin Prashant 10,000 Unit [Procrit] 10,000 unit SUB-Q KATERYNA PRN #30 vial 09/05/18 09/21/18 09/21/18 Rx FLUoxetine HCL [Fluoxetine HCl] 40 mg PO QDAY #30 capsule 09/05/18 09/21/18 0 09/21/18 Rx Famotidine [Pepcid] 10 mg PO BID #15 tablet 09/05/18 09/21/18 09/21/18 Rx Fe Fumarate/FA/Mv, Min Comb#15 1 each PO QDAY #30 capsule 09/05/18 09/21/18 09/21/18 Rx [Hemocyte Plus] ISOSORBIDE MONOnitrate [Imdur ER] 30 mg PO QDAY #30 tablet 09/05/18 09/21/18 09/21/18 Rx Lactulose [Cephulac] 20 gm PO BID oral.liqd 09/05/18 09/21/18 09/21/18 Rx Losartan [Cozaar] 100 mg PO QDAY 30 Days tablet 09/05/18 09/21/18 09/21/18 Rx Metoprolol Xl [Metoprolol 100 mg PO QDAY #30 tablet 09/05/18 09/21/18 09/21/18 Rx SUCCINATE ER TAB] Polyethylene Glycol 3350 [Miralax 17 gm PO QDAY PRN powd.pack 09/05/18 09/21/18 09/21/18 Rx 3350] Sennosides/Docusate [Senokot S] 1 tab PO BID tablet 09/05/18 09/21/18 09/21/18 Rx amLODIPine [Norvasc] 10 mg PO DAILY #30 tablet 09/05/18 09/21/18 09/21/18 Rx hydrALAZINE [Apresoline TAB] 50 mg PO Q8HR #90 tablet 09/05/18 09/21/18 09/21/18 Rx oxyCODONE /ACETAMINOPHEN [Percocet 1 tab PO Q6H PRN #20 tablet 09/05/18 09/21/18 09/21/18 Rx 5/325 mg] Active Medications: Generic Name Dose Route Start Last Admin Trade Name Freq PRN Reason Stop Dose Admin Acetaminophen 650 mg 09/21/18 23:41 Tylenol PO Q4H PRN Pain MILD(1-3)/Fever >100.5/DOUGLAS Amlodipine Besylate 10 mg 09/22/18 10:00 09/24/18 12:06 Norvasc PO 10 mg DAILY [facility] Administration Apixaban 2.5 mg 09/25/18 22:00 Eliquis PO Q12HR [facility] Protocol Atorvastatin Calcium 40 mg 09/22/18 22:00 09/24/18 21:02 Lipitor PO 40 mg QHS [facility] Administration Dextrose 50 ml 09/21/18 23:41 D50w (25gm) Syringe IV PRN PRN Hypoglycemia Famotidine 10 mg 09/22/18 10:00 09/24/18 21:01 Pepcid PO 10 mg BID BEAN Administration Fluoxetine HCl 40 mg 09/22/18 10:00 09/24/18 16:08 Prozac PO 40 mg QDAY [facility] Administration Heparin Sodium (Porcine) 5,000 unit 09/22/18 14:00 09/25/18 06:16 Heparin SUB-Q 09/25/18 23:59 5,000 unit Q8HR [facility] Administration Hydralazine HCl 50 mg 09/22/18 06:00 09/25/18 06:13 Apresoline PO 50 mg Q8HR [facility] Administration Hydralazine HCl 20 mg 09/22/18 01:23 09/22/18 02:27 Apresoline IV 20 mg Q4H PRN Administration Hypertension Sodium Chloride 100 mls @ 999 mls/hr 09/22/18 08:24 Nacl 0.9% IV KATERYNA PRN Hypotension Insulin Human Lispro 0 unit 09/22/18 07:30 09/24/18 21:32 Humalog SUB-Q Not Given ACHS [facility] Protocol Isosorbide Mononitrate 30 mg 09/22/18 10:00 09/24/18 10:04 Imdur PO 30 mg QDAY BE[facility] Administration Losartan Potassium 100 mg 09/22/18 10:00 09/24/18 10:04 Cozaar PO 100 mg QDAY [facility] Administration Metoprolol Succinate 100 mg 09/22/18 08:00 09/24/18 12:06 Toprol Xl PO 100 mg QDAY@0800 [facility] Administration Morphine Sulfate 2 mg 09/21/18 23:41 09/25/18 06:52 Morphine IV 2 mg Q4H PRN Administration Pain, Moderate (4-6) Multivitamins/Iron 1 each 09/22/18 10:00 09/24/18 16:08 Hemocyte Plus PO 1 each QDAY [facility] Administration Ondansetron HCl 4 mg 09/21/18 23:41 09/23/18 10:12 Zofran IV 4 mg Q4H PRN Administration Nausea And Vomiting Polyethylene Glycol 17 gm 09/21/18 23:45 Miralax 3350 PO QDAY PRN Constipation Sodium Chloride 10 ml 09/22/18 10:00 09/24/18 21:01 Sodium Chloride Flush Syringe 10 Ml IV 10 ml BID BEAN Administration Sodium Chloride 10 ml 09/21/18 23:41 09/23/18 19:57 Sodium Chloride Flush Syringe 10 Ml IV 10 ml PRN PRN Administration LINE FLUSH
--- NOTE | 2018-09-25 11:47 | Discharge Summary ---
Providers - Providers Date of Admission: 09/21/18 23:41 Attending physician: SHERRY MOBLEY MD 09/21/18 23:41 Consult to Physician [CONS] Routine Comment: Consulting Provider: DELMA VAUGHN Physician Instructions: Reason For Exam: ua 09/22/18 00:08 Consult to Physician [CONS] Routine Comment: Consulting Provider: LYRIC DIAMOND Physician Instructions: Reason For Exam: hd 09/22/18 09:47 Physical Therapy Evaluation and Treat [CONS] Routine Comment: Reason For Exam: debility 09/23/18 13:59 Consult to Wound/ET Nurse [CONS] Routine Reason For Exam: wound eval 09/24/18 13:00 Physical Therapy Evaluation and Treat [CONS] Routine Comment: Reason For Exam: ataxia Primary care physician: ARSLAN PIMENTEL Hospitalization Condition: Stable Hospital course: 63-year-old man who presented to the hospital complaining of chest pain 2 hours PMH; A. fib, end-stage renal disease on dialysis, , CHF EF of 10%, hypertension, diabetes, CAD with recent cath showing a long LAD stenosis of 50-70% and proximal segments Chest x-ray shows large left pleural effusion similar to previous study. Diagnoses Chest pain Left pleural effusion-transudative End-stage renal disease CHF EF 10% Chronic CAD Diabetes Atrial fibrillation Hypercoagulable states Hospital Course Cardiology evaluated the patient and per their consult, chest pain did not appear cardiac in etiology, chest pain is most due related to his large pleural effusion he received thoracentesis and 720cc of transudate was drained, after which his symptoms improved He was continued on his chronic meds and HD while in the hospital he was dc in improved condition Disposition: [id number] HOME UNDER HOME [facility] Time spent for discharge: 33 mins Core Measure Documentation - Palliative Care Palliative Care/ Comfort Measures: Not Applicable - Core Measures Any of the following diagnoses?: heart failure - Heart Failure Discharge Requirements BEATRICE/ARB for LVSD if EF <40%: Yes Beta jett at discharge: Yes Exam - Physical Exam Narrative exam: General.: Appears well, no distress, nontoxic HEENT: Moist mucous membranes, extraocular muscles intact, no lymphadenopathy Neck: supple Cardiac: S1-S2 heard Lungs: Dullness to left lung base Abdomen: soft , nontender, nondistended, bowel sounds positive Extremities: no edema clubbing or cyanosis Skin: no rash or lesions Neurologic: no gross focal deficits Psych: calm, and cooperative - Constitutional Vitals: Temp Pulse Resp BP Pulse Ox 97.4 F L 66 18 139/98 98 09/25/18 09:30 09/25/18 10:30 09/25/18 09:30 09/25/18 10:30 09/25/18 04:05 Plan Follow up with: JOSEPH JORGE MD [Staff Physician] - 3-5 Days
[2018-09-25] MEDS ORDERED: NACL 0.9 (PRIMING MACHINE ONLY DIALYSIS) MC ONE (11:57)
[2018-09-25] MEDS: HumaLOG SUB-Q SCH ×2 (12:41→13:33)
[2018-09-25] MEDS: TOPROL XL PO SCH (14:14)
[2018-09-25] MEDS: PROzac PO SCH (14:15)
[2018-09-25] MEDS: PEPCID PO SCH (14:15)
[2018-09-25] MEDS: HEMOCYTE PLUS PO SCH (14:23)
[2018-09-25] MEDS: COZAAR PO SCH (14:43)
[2018-09-25] MEDS: IMDUR PO SCH (14:44)
[2018-09-25] MEDS: NORVASC PO SCH (14:44)
[2018-09-25] MEDS: SODIUM CHLORIDE FLUSH SYRINGE 10 ML IV SCH (14:45)
[2018-09-25 17:39] VITALS: BP 113/88
[2018-09-25] MEDS ORDERED: ELIQUIS PO SCH (22:00)
[2018-09-28 09:39] LABS: LDH,Body Fluid 49
[2018-09-28 09:40] LABS: Total Protein,Body Fluid < 3.0 (15.0-45.0)
== END 2018-09-25 18:45 | disposition home health service (06) | DRG 291 ==
LOC: EDBD → ED 20:49 → 4A 23:41 → 3A 09-22 14:04
PROVIDERS: ADMIT Internal Medicine; ATTEND Internal Medicine
PROC: 5A1D70Z Performance of Urinary Filtration, Intermittent, Less than 6 Hours Per Day (ICD-10-PCS; 2018-09-22)
PROC: 0W9B3ZZ Drainage of Left Pleural Cavity, Percutaneous Approach (ICD-10-PCS; principal; 2018-09-24)
PROC: 5A1D70Z Performance of Urinary Filtration, Intermittent, Less than 6 Hours Per Day (ICD-10-PCS; 2018-09-25)
DX: I13.2 Hypertensive heart and chronic kidney disease with heart failure and with stage 5 chronic kidney disease, or end stage renal disease (principal); I50.21 Acute systolic (congestive) heart failure; N18.6 End stage renal disease; J91.8 Pleural effusion in other conditions classified elsewhere; I25.10 Atherosclerotic heart disease of native coronary artery without angina pectoris; I48.2 Chronic atrial fibrillation; D68.59 Other primary thrombophilia; F43.10 Post-traumatic stress disorder, unspecified; I42.0 Dilated cardiomyopathy; D69.6 Thrombocytopenia, unspecified; X58.XXXA Exposure to other specified factors, initial encounter; E11.22 Type 2 diabetes mellitus with diabetic chronic kidney disease; Z99.2 Dependence on renal dialysis; Z89.202 Acquired absence of left upper limb, unspecified level; Z82.49 Family history of ischemic heart disease and other diseases of the circulatory system; Z79.01 Long term (current) use of anticoagulants; Z79.899 Other long term (current) drug therapy; Z91.030 Bee allergy status; Z91.018 Allergy to other foods; Y93.89 Activity, other specified; Y92.89 Other specified places as the place of occurrence of the external cause; Y99.8 Other external cause status
CPT/HCPCS: 32555; 36415; 71045; 80048; 80061; 82550; 82553; 82962; 83605; 84160; 84484; 85025; 85610; 87116; 88112; 88305; 88341; 88342; 89051; 93005; 93010; G0378; A9270-GY; J0360; J1644; J2270; J2405; J7030

== ENCOUNTER 2018-10-08 00:12 | Emergency (ER) | payer MEDICAID ==
--- NOTE | 2018-10-08 01:20 | Emergency Department Report ---
ED General Adult HPI - General Chief complaint: Weakness Stated complaint: BLEEDING FROM PORT Time Seen by Provider: 10/08/18 00:26 Source: EMS Mode of arrival: Stretcher Limitations: Physical Limitation - History of Present Illness Initial comments: Mr. Herrera has hx of ESRD on HD. Last dialysis session performed on . Next HD scheduled on Monday due to holiday weekend. Noticed blood on shirt, leaking from dialysis catheter at right chest. Occurred while sitting at home watching TV. No pain, has been in normal state of health. -: Sudden, minutes(s) (10) Severity scale (0 -10): 0 Improves with: other (EMS treatment) Associated Symptoms: denies other symptoms - Related Data Previous Rx's Medication Instructions Recorded Last Taken Type Acetaminophen [Acetaminophen TAB] 650 mg PO Q4H PRN tablet 05/05/18 09/21/18 Rx diphenhydrAMINE [Benadryl CAP] 25 mg PO Q6H PRN #15 capsule 05/05/18 09/21/18 Rx Apixaban [Eliquis] 2.5 mg PO Q12HR #60 tablet 09/05/18 09/21/18 Rx AtorvaSTATin [Lipitor] 40 mg PO QHS #30 tablet 09/05/18 09/21/18 Rx Epoetin Prashant 10,000 Unit [Procrit] 10,000 unit SUB-Q KATERYNA PRN #30 vial 09/05/18 09/21/18 Rx FLUoxetine HCL [Fluoxetine HCl] 40 mg PO QDAY #30 capsule 09/05/18 09/21/18 Rx Famotidine [Pepcid] 10 mg PO BID #15 tablet 09/05/18 09/21/18 Rx Fe Fumarate/FA/Mv, Min Comb#15 1 each PO QDAY #30 capsule 09/05/18 09/21/18 Rx [Hemocyte Plus] ISOSORBIDE MONOnitrate [Imdur ER] 30 mg PO QDAY #30 tablet 09/05/18 09/21/18 Rx Lactulose [Cephulac] 20 gm PO BID oral.liqd 09/05/18 09/21/18 Rx Losartan [Cozaar] 100 mg PO QDAY 30 Days tablet 09/05/18 09/21/18 Rx Metoprolol Xl [Metoprolol 100 mg PO QDAY #30 tablet 09/05/18 09/21/18 Rx SUCCINATE ER TAB] Polyethylene Glycol 3350 [Miralax 17 gm PO QDAY PRN powd.pack 09/05/18 09/21/18 Rx 3350] Sennosides/Docusate [Senokot S] 1 tab PO BID tablet 09/05/18 09/21/18 Rx amLODIPine [Norvasc] 10 mg PO DAILY #30 tablet 09/05/18 09/21/18 Rx hydrALAZINE [Apresoline TAB] 50 mg PO Q8HR #90 tablet 09/05/18 09/21/18 Rx oxyCODONE /ACETAMINOPHEN [Percocet 1 tab PO Q6H PRN #20 tablet 09/05/18 09/21/18 Rx 5/325 mg] Allergies Allergy/AdvReac Type Severity Reaction Status Date / Time aspirin Allergy Unknown Verified 03/16/17 01:25 pork derived (porcine) Allergy Rash Verified 03/16/17 01:27 venom-honey bee Allergy Anaphylaxis Verified 03/16/17 01:27 [bee venom (honey bee)] Pork/Porcine Containing AdvReac Severe Nausea,VOMI Verified 02/13/17 09:31 Products TING ED Review of Systems ROS: Stated complaint: BLEEDING FROM PORT Other details as noted in HPI Comment: All other systems reviewed and negative Constitutional: denies: diaphoresis, fever, malaise Respiratory: denies: cough Cardiovascular: denies: chest pain ED Past Medical Hx - Past Medical History Previous Medical History?: Yes Hx Hypertension: Yes Hx Heart Attack/AMI: No Hx Congestive Heart Failure: No Hx Diabetes: No (IDDM) Hx Deep Vein Thrombosis: No Hx Renal Disease: No Hx Kidney Stones: No Hx Psychiatric Treatment: Yes (PTSD) Hx Asthma: No Hx COPD: No Additional medical history: 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, dialysis - Surgical History Past Surgical History?: Yes Hx Coronary Stent: No Hx Pacemaker: No Hx Internal Defibrillator: No Additional Surgical History: neck and back surgery x3 - Social History Smoking Status: Former Smoker Substance Use Type: Alcohol - Medications Home Medications: Home Medications Medication Instructions Recorded Confirmed Last Taken Type Acetaminophen [Acetaminophen TAB] 650 mg PO Q4H PRN tablet 05/05/18 09/21/18 09/21/18 Rx diphenhydrAMINE [Benadryl CAP] 25 mg PO Q6H PRN #15 capsule 05/05/18 09/21/18 09/21/18 Rx Apixaban [Eliquis] 2.5 mg PO Q12HR #60 tablet 09/05/18 09/21/18 09/21/18 Rx AtorvaSTATin [Lipitor] 40 mg PO QHS #30 tablet 09/05/18 09/21/18 09/21/18 Rx Epoetin Prashant 10,000 Unit [Procrit] 10,000 unit SUB-Q KATERYNA PRN #30 vial 09/05/18 09/21/18 09/21/18 Rx FLUoxetine HCL [Fluoxetine HCl] 40 mg PO QDAY #30 capsule 09/05/18 09/21/18 09/21/18 Rx Famotidine [Pepcid] 10 mg PO BID #15 tablet 09/05/18 09/21/18 09/21/18 Rx Fe Fumarate/FA/Mv, Min Comb#15 1 each PO QDAY #30 capsule 09/05/18 09/21/18 09/21/18 Rx [Hemocyte Plus] ISOSORBIDE MONOnitrate [Imdur ER] 30 mg PO QDAY #30 tablet 09/05/18 09/21/18 09/21/18 Rx Lactulose [Cephulac] 20 gm PO BID oral.liqd 09/05/18 09/21/18 09/21/18 Rx Losartan [Cozaar] 100 mg PO QDAY 30 Days tablet 09/05/18 09/21/18 09/21/18 Rx Metoprolol Xl [Metoprolol 100 mg PO QDAY #30 tablet 09/05/18 09/21/18 09/21/18 Rx SUCCINATE ER TAB] Polyethylene Glycol 3350 [Miralax 17 gm PO QDAY PRN powd.pack 09/05/18 09/21/18 09/21/18 Rx 3350] Sennosides/Docusate [Senokot S] 1 tab PO BID tablet 09/05/18 09/21/18 09/21/18 Rx amLODIPine [Norvasc] 10 mg PO DAILY #30 tablet 09/05/18 09/21/18 09/21/18 Rx hydrALAZINE [Apresoline TAB] 50 mg PO Q8HR #90 tablet 09/05/18 09/21/1809/21/19 Rx oxyCODONE /ACETAMINOPHEN [Percocet 1 tab PO Q6H PRN #20 tablet 09/05/18 09/21/18 09/21/18 Rx 5/325 mg] ED Physical Exam - General Limitations: No Limitations, Physical Limitation General appearance: alert, in no apparent distress - Head Head exam: Present: atraumatic, normocephalic - Eye Eye exam: Present: normal appearance - ENT ENT exam: Present: mucous membranes moist - Neck Neck exam: Present: normal inspection, full ROM - Respiratory Respiratory exam: Present: normal lung sounds bilaterally. Absent: respiratory distress, wheezes, rales, rhonchi - Cardiovascular Cardiovascular Exam: Present: regular rate, normal rhythm, normal heart sounds, other (dried blood at caps of tunneled dialysis catheter at chest, no bleeding at insertion site). Absent: systolic murmur, diastolic murmur, rubs, gallop - GI/Abdominal GI/Abdominal exam: Present: soft, normal bowel sounds. Absent: distended, tenderness - Rectal Rectal exam: Present: deferred - Extremities Exam Extremities exam: Present: normal inspection - Back Exam Back exam: Present: normal inspection - Neurological Exam Neurological exam: Present: alert, oriented X3 - Psychiatric Psychiatric exam: Present: normal affect - Skin Skin exam: Present: warm, dry, intact, normal color. Absent: rash ED Course Vital Signs 10/08/18 10/08/18 10/08/18 00:29 00:45 00:48 Temperature 98.3 F 98.3 F Pulse Rate 95 H 97 H Respiratory 22 18 18 Rate Blood Pressure 128/95 Blood Pressure 128/95 [Right] O2 Sat by Pulse 98 98 99 Oximetry ED Medical Decision Making - Medical Decision Making Mr. Herrera appears to have blood oozing from caps of dialysis tunneled catheter. Given reassurance. Observed in ED for one hour without rebleeding. dc'd home Critical care attestation.: If time is entered above; I have spent that time in minutes in the direct care of this critically ill patient, excluding procedure time. ED Disposition Clinical Impression: Problem with dialysis access Disposition: DC-01 TO HOME OR SELFCARE Is pt being admited?: No Does the pt Need Aspirin: No Condition: Stable Additional Instructions: Please call 911 if bleeding recurs.
[2018-10-08 11:37] VITALS: BP 158/100
== END 2018-10-08 11:36 | disposition home or self-care (01) ==
LOC: EDBD → ED 00:12
DX: T82.838A Hemorrhage due to vascular prosthetic devices, implants and grafts, initial encounter (principal); I12.0 Hypertensive chronic kidney disease with stage 5 chronic kidney disease or end stage renal disease; N18.6 End stage renal disease; Z99.2 Dependence on renal dialysis; Z87.891 Personal history of nicotine dependence; Z88.8 Allergy status to other drugs, medicaments and biological substances; Z88.6 Allergy status to analgesic agent; Z91.030 Bee allergy status
CPT/HCPCS: 99283

== ENCOUNTER 2018-10-14 04:58 | Emergency (ER) | payer MEDICAID ==
[2018-10-14] MEDS ORDERED: ZOFRAN IM ONE (06:27)
[2018-10-14] MEDS ORDERED: MORPHINE IM ONE (06:27)
--- NOTE | 2018-10-14 06:27 | Emergency Department Report ---
ED Fall HPI - General Chief Complaint: Fall Stated Complaint: BACK PAIN Time Seen by Provider: 10/14/18 06:19 Source: patient, EMS Mode of arrival: Stretcher - History of Present Illness Initial Comments: Patient is 71 years old male with history of end-stage renal disease, last dialysis was yesterday. Patient discharged from the hospital yesterday. Patient stated that he tried to get out of his bed and he tripped and fell landing on his back. Patient stated that he hit his head. He denied any loss of consciousness. Patient is complaining of lower back pain. Patient denied any chest pain, shortness of breath, any weakness numbness or tingling sensation. MD Complaint: fall -: Last night Fall From: out of bed Fall Witnessed: yes, by family Place Fall Occurred: home Loss of Consciousness: none Prolonged Down Time?: no Symptoms Prior to Fall: none Location: head, back Severity: moderate Severity scale (0 -10): 4 Quality: sharp Context: tripped/slipped Associated Symptoms: denies - Related Data Previous Rx's Medication Instructions Recorded Last Taken Type Acetaminophen [Acetaminophen TAB] 650 mg PO Q4H PRN tablet 05/05/18 09/21/18 Rx diphenhydrAMINE [Benadryl CAP] 25 mg PO Q6H PRN #15 capsule 05/05/18 09/21/18 Rx Apixaban [Eliquis] 2.5 mg PO Q12HR #60 tablet 09/05/18 09/21/18 Rx AtorvaSTATin [Lipitor] 40 mg PO QHS #30 tablet 09/05/18 09/21/18 Rx Epoetin Prashant 10,000 Unit [Procrit] 10,000 unit SUB-Q KATERYNA PRN #30 vial 09/05/18 09/21/18 Rx FLUoxetine HCL [Fluoxetine HCl] 40 mg PO QDAY #30 capsule 09/05/18 09/21/18 Rx Famotidine [Pepcid] 10 mg PO BID #15 tablet 09/05/18 09/21/18 Rx Fe Fumarate/FA/Mv, Min Comb#15 1 each PO QDAY #30 capsule 09/05/18 09/21/18 Rx [Hemocyte Plus] ISOSORBIDE MONOnitrate [Imdur ER] 30 mg PO QDAY #30 tablet 09/05/18 09/21/18 Rx Lactulose [Cephulac] 20 gm PO BID oral.liqd 09/05/18 09/21/18 Rx Losartan [Cozaar] 100 mg PO QDAY 30 Days tablet 09/05/18 09/21/18 Rx Metoprolol Xl [Metoprolol 100 mg PO QDAY #30 tablet 09/05/18 09/21/18 Rx SUCCINATE ER TAB] Polyethylene Glycol 3350 [Miralax 17 gm PO QDAY PRN powd.pack 09/05/18 09/21/18 Rx 3350] Sennosides/Docusate [Senokot S] 1 tab PO BID tablet 09/05/18 09/21/18 Rx amLODIPine [Norvasc] 10 mg PO DAILY #30 tablet 09/05/18 09/21/18 Rx hydrALAZINE [Apresoline TAB] 50 mg PO Q8HR #90 tablet 09/05/18 09/21/18 Rx oxyCODONE /ACETAMINOPHEN [Percocet 1 tab PO Q6H PRN #20 tablet 09/05/18 09/21/18 Rx 5/325 mg] Azithromycin [Zithromax Z-IGNACIO] 0 mg PO DAILY #1 tab 10/13/18 Unknown Rx Allergies Allergy/AdvReac Type Severity Reaction Status Date / Time aspirin Allergy Unknown Verified 03/16/17 01:25 pork derived (porcine) Allergy Rash Verified 03/16/17 01:27 venom-honey bee Allergy Anaphylaxis Verified 03/16/17 01:27 [bee venom (honey bee)] Pork/Porcine Containing AdvReac Severe Nausea,VOMI Verified 02/13/17 09:31 Products TING ED Review of Systems ROS: Stated complaint: BACK PAIN Other details as noted in HPI Comment: All other systems reviewed and negative Constitutional: denies: chills, fever Respiratory: denies: cough, orthopnea, shortness of breath, SOB with exertion, SOB at rest, wheezing Cardiovascular: denies: chest pain, palpitations, dyspnea on exertion Gastrointestinal: denies: abdominal pain, nausea, vomiting, diarrhea, constipation, hematemesis, melena, hematochezia Musculoskeletal: back pain Neurological: denies: headache, weakness ED Past Medical Hx - Past Medical History Previous Medical History?: Yes Hx Hypertension: Yes Hx Heart Attack/AMI: No Hx Congestive Heart Failure: Yes Hx Diabetes: Yes Hx Deep Vein Thrombosis: Yes Hx Renal Disease: No Hx Arthritis: Yes Hx Kidney Stones: No Hx Psychiatric Treatment: Yes (PTSD) Hx Asthma: No Hx COPD: Yes (Pt is on Home O2 2L/NC.) Additional medical history: 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, dialysis - Surgical History Past Surgical History?: Yes Hx Coronary Stent: No Hx Pacemaker: No Hx Internal Defibrillator: No Additional Surgical History: neck and back surgery x3 - Social History Smoking Status: Former Smoker Substance Use Type: None - Medications Home Medications: Home Medications Medication Instructions Recorded Confirmed Last Taken Type Acetaminophen [Acetaminophen TAB] 650 mg PO Q4H PRN tablet 05/05/18 10/12/18 09/21/18 Rx diphenhydrAMINE [Benadryl CAP] 25 mg PO Q6H PRN #15 capsule 05/05/18 10/12/18 09/21/18 Rx Apixaban [Eliquis] 2.5 mg PO Q12HR #60 tablet 09/05/18 10/12/18 09/21/18 Rx AtorvaSTATin [Lipitor] 40 mg PO QHS #30 tablet 09/05/18 10/12/18 09/21/18 Rx Epoetin Prashant 10,000 Unit [Procrit] 10,000 unit SUB-Q KATERYNA PRN #30 vial 09/05/18 10/12/18 09/21/18 Rx FLUoxetine HCL [Fluoxetine HCl] 40 mg PO QDAY #30 capsule 09/05/18 10/12/18 09/21/18 Rx Famotidine [Pepcid] 10 mg PO BID #15 tablet 09/05/18 10/12/18 09/21/18 Rx Fe Fumarate/FA/Mv, Min Comb#15 1 each PO QDAY #30 capsule 09/05/18 10/12/18 09/21/18 Rx [Hemocyte Plus] ISOSORBIDE MONOnitrate [Imdur ER] 30 mg PO QDAY #30 tablet 09/05/18 10/12/18 09/21/18 Rx Lactulose [Cephulac] 20 gm PO BID oral.liqd 09/05/18 10/12/18 09/21/18 Rx Losartan [Cozaar] 100 mg PO QDAY 30 Days tablet 09/05/18 10/12/18 09/21/18 Rx Metoprolol Xl [Metoprolol 100 mg PO QDAY #30 tablet 09/05/18 10/12/18 09/21/18 Rx SUCCINATE ER TAB] Polyethylene Glycol 3350 [Miralax 17 gm PO QDAY PRN powd.pack 09/05/18 10/12/18 09/21/18 Rx 3350] Sennosides/Docusate [Senokot S] 1 tab PO BID tablet 09/05/18 10/12/18 09/21/18 Rx amLODIPine [Norvasc] 10 mg PO DAILY #30 tablet 09/05/18 10/12/18 09/21/18 Rx hydrALAZINE [Apresoline TAB] 50 mg PO Q8HR #90 tablet 09/05/18 10/12/18 09/21/18 Rx oxyCODONE /ACETAMINOPHEN [Percocet 1 tab PO Q6H PRN #20 tablet 09/05/18 10/12/18 09/21/18 Rx 5/325 mg] Azithromycin [Zithromax Z-IGNACIO] 0 mg PO DAILY #1 tab 10/13/18 Unknown Rx ED Physical Exam - General Limitations: No Limitations General appearance: alert, in no apparent distress - Head Head exam: Present: atraumatic, normocephalic, normal inspection - Eye Eye exam: Present: normal appearance - ENT ENT exam: Present: normal exam, normal orophraynx, mucous membranes moist - Neck Neck exam: Present: normal inspection, full ROM. Absent: tenderness, meningismus, lymphadenopathy, thyromegaly - Respiratory Respiratory exam: Present: normal lung sounds bilaterally - Cardiovascular Cardiovascular Exam: Present: regular rate, normal heart sounds - GI/Abdominal GI/Abdominal exam: Present: soft, normal bowel sounds. Absent: distended, tenderness, guarding, rebound, rigid, mass, bruit, pulsatile mass, hernia - Extremities Exam Extremities exam: Present: normal inspection, full ROM, normal capillary refill - Back Exam Back exam: Present: normal inspection. Absent: tenderness, CVA tenderness (R), CVA tenderness (L), muscle spasm, paraspinal tenderness, vertebral tenderness - Neurological Exam Neurological exam: Present: alert, oriented X3, CN II-XII intact - Skin Skin exam: Present: warm, intact, normal color ED Course Vital Signs 10/14/18 10/14/18 10/14/18 05:08 06:25 06:38 Temperature 97.8 F Pulse Rate 73 Respiratory 18 18 18 Rate Blood Pressure 123/89 Blood Pressure [Left] O2 Sat by Pulse 97 97 Oximetry 10/14/18 10/14/18 06:42 08:39 Temperature Pulse Rate 79 70 Respiratory 18 18 Rate Blood Pressure Blood Pressure 139/93 151/97 [Left] O2 Sat by Pulse 99 95 Oximetry ED Medical Decision Making - Lab Data Result diagrams: 10/14/18 07:29 10/14/18 07:25 - Radiology Data Radiology results: report reviewed CT brain, CT cervical spine, CT lumbar spine are negative for acute finding. - Medical Decision Making Patient is 71 years old male with history of end-stage renal disease, last dialysis was yesterday. Patient discharged from the hospital yesterday. Patien t stated that he tried to get out of his bed and he tripped and fell landing on his back. Patient stated that he hit his head. He denied any loss of consciousness. Patient is complaining of lower back pain. Patient denied any chest pain, shortness of breath, any weakness numbness or tingling sensation. CT brain, CT C-spine, CT lumbar spine are negative for acute findings. Labs reviewed and is unremarkable. Critical care attestation.: If time is entered above; I have spent that time in minutes in the direct care of this critically ill patient, excluding procedure time. ED Disposition Clinical Impression: Fall, Head injury, Back contusion Disposition: -01 TO HOME OR SELFCARE Is pt being admited?: No Condition: Stable Instructions: Fall Prevention for Older Adults (ED), Minor Head Injury (ED), Contusion in Adults (ED) Referrals: PRIMARY CARE, [Primary Care Provider] - 3-5 Days
[2018-10-14] MEDS ORDERED: MORPHINE ONE (06:31)
[2018-10-14] MEDS ORDERED: ZOFRAN ONE (06:31)
--- NOTE | 2018-10-14 07:37 | Cat Scan Report ---
PROCEDURE: CT CERVICAL SPINE WO CON TECHNIQUE: Routine axial imaging was obtained of the cervical spine without IV contrast. HISTORY: NECK INJURY COMPARISONS: None FINDINGS: There is been previous multilevel fusion surgery with hardware extending from the pedicles of C2 thro ugh the upper thoracic spine. Additional anterior hardware is seen at the C3-C4 level with posterior laminectomies at this level. There is complete fusion at the C5-C6 level with a bone graft in place. There is no evidence of fracture. There is no evidence of hardware complication. The prevertebral sof t tissues appear intact. There is moderate to severe arthritic changes of the C1-C2 articulation with erosions of the tip of the odontoid process. The surrounding soft tissues reveal extensive vascular calcifications in the soft tissues. IMPRESSION: Extensive remote postsurgical changes with hardware extending from C2 through the upper thoracic spin e. No evidence of hardware complication or acute fracture. Extensive vascular calcifications in the soft tissues.. This document is electronically signed by Juan Garcia MD., October 14 2018 07:34:17 AM ET
--- NOTE | 2018-10-14 07:38 | Cat Scan Report ---
PROCEDURE: CT HEAD/BRAIN WO CON TECHNIQUE: Routine axial imaging was obtained of the brain without IV contrast. HISTORY: head injury COMPARISONS: None FINDINGS: There is age-related volume loss. There is no evidence of acute stroke or hemorrhage. The ventricular system is appropriate in size and is symmetric. The visualized sinuses are clear. The mastoid air ce lls are well pneumatized. The calvarium appears intact. The soft tissues reveal extensive vascular ca lcifications in the soft tissues. IMPRESSION: Age-related volume loss. No evidence of acute stroke or hemorrhage.. This document is electronically signed by Juan Garcia MD., October 14 2018 07:36:18 AM ET
[2018-10-14 07:40] LABS: Basophils # (Auto) 0.1 K/mm3 (0.0-0.1); Basophils % (Auto) 1.2 % (0.0-1.8); Eosinophils # (Auto) 0.2 K/mm3 (0.0-0.4); Eosinophils % (Auto) 3.9 % (0.0-4.3); Hematocrit 29.7 % (35.5-45.6); Hemoglobin 9.5 gm/dl (11.8-15.2); Lymphocytes # (Auto) 0.8 K/mm3 (1.2-5.4); Mean Corpuscular HGB Conc 32 % (32-34); Mean Corpuscular Volume 104 fl (84-94); Monocytes # (Auto) 0.4 K/mm3 (0.0-0.8); Monocytes % (Auto) 10.2 % (0.0-7.3); Platelet Count 145 K/mm3 (140-440); Red Blood Count 2.87 M/mm3 (3.65-5.03); Red Cell Distribution Width 16.6 % (13.2-15.2)
--- NOTE | 2018-10-14 07:47 | Cat Scan Report ---
PROCEDURE: CT LUMBAR SPINE WO CON TECHNIQUE: Routine axial imaging was obtained of the lumbar spine without IV contrast with sagittal and coronal reconstructions. HISTORY: injury COMPARISONS: None FINDINGS: There has been previous laminectomies at the L4-5 and L5-S1 levels. At the L5-S1 level there has been fusion along with placement of a disc prosthesis. The left bone scr ew at L5 partially erodes through the superior endplate of L4. There are no additional hardware issue s. There is a grade 1 anterolisthesis of L4 over L5. The upper lumbar disks are normal height. There are Schmorl's nodes involving the endplates of L2 and L3. There is mild canal stenosis at the L3 level with bulging of the annulus. There is borderline canal s ize at the L2-3 level. There is osteoporosis. There is no evidence of acute fracture. IMPRESSION: Central laminectomy at the L5-S1 level as described. The left L5 bone screw protrudes through the sup erior endplate of L5.. Central laminectomy at the L4-5 level with grade 1 anterolisthesis. Central bulging of the L3-4 disc annulus with mild canal stenosis. Borderline canal size at the L2-3 level. Multiple Schmorl's nodes indenting endplates at L2, L3 and L4. Osteoporosis. No evidence of fracture. This document is electronically signed by Juan Garcia MD., October 14 2018 07:46:05 AM ET
[2018-10-14 08:48] VITALS: BP 151/97
[2018-10-14 08:53] LABS: Calcium 9.2 mg/dL (8.4-10.2)
== END 2018-10-14 14:53 | disposition home or self-care (01) ==
LOC: EDBD → ED 04:58
DX: S30.0XXA Contusion of lower back and pelvis, initial encounter (principal); S09.90XA Unspecified injury of head, initial encounter; I13.2 Hypertensive heart and chronic kidney disease with heart failure and with stage 5 chronic kidney disease, or end stage renal disease; I50.9 Heart failure, unspecified; E11.22 Type 2 diabetes mellitus with diabetic chronic kidney disease; N18.6 End stage renal disease; Z99.2 Dependence on renal dialysis; J44.9 Chronic obstructive pulmonary disease, unspecified; M19.90 Unspecified osteoarthritis, unspecified site; Z87.891 Personal history of nicotine dependence; Z88.6 Allergy status to analgesic agent; Z91.018 Allergy to other foods; Z91.030 Bee allergy status; W06.XXXA Fall from bed, initial encounter; Y93.89 Activity, other specified; Y92.098 Other place in other non-institutional residence as the place of occurrence of the external cause; Y99.8 Other external cause status
CPT/HCPCS: 36415; 70450; 72125; 72131; 80048; 85025; 96372; 99284; J2270; J2405

== ENCOUNTER 2018-11-05 21:47 | Inpatient (IN) | payer MEDICAID ==
[2018-11-05 23:00] LABS: Basophils # (Auto) 0.1 K/mm3 (0.0-0.1); Basophils % (Auto) 1.2 % (0.0-1.8); Eosinophils # (Auto) 0.2 K/mm3 (0.0-0.4); Eosinophils % (Auto) 4.6 % (0.0-4.3); Hemoglobin 10.4 gm/dl (11.8-15.2); Lymphocytes # (Auto) 1.4 K/mm3 (1.2-5.4); Lymphocytes % (Auto) 29.5 % (13.4-35.0); Mean Corpuscular HGB Conc 33 % (32-34); Mean Corpuscular Volume 103 fl (84-94); Monocytes # (Auto) 0.4 K/mm3 (0.0-0.8); Monocytes % (Auto) 8.1 % (0.0-7.3); Platelet Count 149 K/mm3 (140-440); Red Blood Count 3.11 M/mm3 (3.65-5.03); Red Cell Distribution Width 16.8 % (13.2-15.2)
[2018-11-05] MEDS ORDERED: BSS ONE (23:14)
[2018-11-05] MEDS ORDERED: TETRACAINE 0.5% ONE (23:14)
[2018-11-05] MEDS ORDERED: FUL-GLO OP ONE (23:15)
[2018-11-05 23:18] LABS: Albumin 3.1 g/dL (3.9-5); Calcium 8.4 mg/dL (8.4-10.2)
--- NOTE | 2018-11-05 23:37 | XRay Report ---
PROCEDURE: XR CHEST 1V AP TECHNIQUE: Chest radiograph single view. HISTORY: morin, hx of esrd COMPARISONS: October 11, 2018 . FINDINGS: Heart: The heart size is slightly pronounced but stable. Mediastinum/Vessels: Normal. Lungs/Pleural space: No significant change in infiltrate/atelectasis and effusion in the left lower lung. Slight atelectasis right lower lung.. Bony thorax: There is been previous spinal fixation in the lower cervical upper thoracic vertebral se gments.. Life support devices: Right central catheter ends in the SVC. IMPRESSION: There is been no significant change in infiltrate/atelectasis and effusion in the left l ower lung. There is slight atelectasis right lower lung. Mild stable cardiomegaly.. This document is electronically signed by Zandra Yang DO., Nov 05 2018 11:35:25 PM ET
--- NOTE | 2018-11-05 23:57 | Cat Scan Report ---
PROCEDURE: CT ABDOMEN PELVIS WO CON TECHNIQUE: Computerized axial tomography of the abdomen and pelvis was performed without intravenous contrast. This study is performed without intravascular contrast material and its sensitivity for ab dominal and pelvic pathology, including neoplasms, inflammation, abscess, free fluid, thrombosis, art erial dissection and infarction, is reduced compared with a contrast enhanced study. CT DOSE LENGTH PRODUCT: mGycm HISTORY: abd pain, diarrhea, hx of stomach vs intestinal COMPARISONS: None . FINDINGS: There is moderate degree cardiomegaly. Coronary arterial calcification is noted. Mild degree of bilat eral pleural effusions are identified. Liver, spleen, pancreas and adrenal glands are within normal l imits. Bilateral kidneys demonstrate multiple cystic lesions with parenchymal distortion. There is no obstructive uropathy. Urinary bladder is empty. Mild degree of ascites is noted. There is no free ai r. Status post cholecystectomy. Small bowel loops are within normal limits. Appendix is not definitiv heelne visualized. There are no inflammatory changes in the right lower quadrant. Sclerotic changes are noted throughout skeleton consistent with renal osteodystrophy. Vertebral height is normal. IMPRESSION: Mild degree of ascites in mild degree bilateral pleural effusions Moderate degree cardiomegaly with coronary vascular calcification Polycystic kidney disease with atrophic bilateral renal parenchyma. No obvious acute intra-abdominal or pelvic pathology as visualized on this noncontrast study. This document is electronically signed by Russell Landa MD., Nov 05 2018 11:55:40 PM ET
[2018-11-06] MEDS ORDERED: NORCO 5/325 PO ONE (00:22)
[2018-11-06] MEDS ORDERED: IMODIUM PO ONE (00:23)
[2018-11-06] MEDS ORDERED: NACL 0.9% 100 ML IV PRN (00:41)
--- NOTE | 2018-11-06 01:05 | Emergency Department Report ---
ED Abdominal Pain HPI - General Chief Complaint: Nausea/Vomiting/Diarrhea Stated Complaint: DIARRHEA Time Seen by Provider: 11/05/18 22:19 Source: patient, EMS Mode of arrival: Stretcher Limitations: No Limitations - History of Present Illness Initial Comments: 71-year-old male with a past medical history CHF, COPD on 2 L of oxygen at home, DVT, hypertension, A. fib currently on Eliquis, and end-stage renal disease on dialysis presents to the hospital complaints of diarrhea and abdominal pain. Symptoms 1 day. Patient states he has 8 episodes of black watery stool. He complains of lower and left-sided abdominal pain. No complaints of fever, re cent antibiotic use, or travel. Patient has been compliant with his Monday, , and Monday dialysis and is due again tomorrow. Complains of chronic shortness of breath with exertion and is on home oxygen. Patient states he has had his stomach partially removed after a war injury. Patient also was noted to have a red left eye. Patient states he woke up with his eye discoloration 2 day s ago. He denies blurry vision and complains of mild pain. He does not wear glasses or contacts. Severity scale (0 -10): 8 - Related Data Previous Rx's Medication Instructions Recorded Last Taken Type Acetaminophen [Acetaminophen TAB] 650 mg PO Q4H PRN tablet 05/05/18 09/21/18 Rx diphenhydrAMINE [Benadryl CAP] 25 mg PO Q6H PRN #15 capsule 05/05/18 09/21/18 Rx Apixaban [Eliquis] 2.5 mg PO Q12HR #60 tablet 09/05/18 09/21/18 Rx AtorvaSTATin [Lipitor] 40 mg PO QHS #30 tablet 09/05/18 09/21/18 Rx Epoetin Prashant 10,000 Unit [Procrit] 10,000 unit SUB-Q KATERYNA PRN #30 vial 09/05/18 09/21/18 Rx FLUoxetine HCL [Fluoxetine HCl] 40 mg PO QDAY #30 capsule 09/05/18 09/21/18 Rx Famotidine [Pepcid] 10 mg PO BID #15 tablet 09/05/18 09/21/18 Rx Fe Fumarate/FA/Mv, Min Comb#15 1 each PO QDAY #30 capsule 09/05/18 09/21/18 Rx [Hemocyte Plus] ISOSORBIDE MONOnitrate [Imdur ER] 30 mg PO QDAY #30 tablet 09/05/18 09/21/18 Rx Lactulose [Cephulac] 20 gm PO BID oral.liqd 09/05/18 09/21/18 Rx Losartan [Cozaar] 100 mg PO QDAY 30 Days tablet 09/05/18 09/21/18 Rx Metoprolol Xl [Metoprolol 100 mg PO QDAY #30 tablet 09/05/18 09/21/18 Rx SUCCINATE ER TAB] Polyethylene Glycol 3350 [Miralax 17 gm PO QDAY PRN powd.pack 09/05/18 09/21/18 Rx 3350] Sennosides/Docusate [Senokot S] 1 tab PO BID tablet 09/05/18 09/21/18 Rx amLODIPine [Norvasc] 10 mg PO DAILY #30 tablet 09/05/18 09/21/18 Rx hydrALAZINE [Apresoline TAB] 50 mg PO Q8HR #90 tablet 09/05/18 09/21/18 Rx oxyCODONE /ACETAMINOPHEN [Percocet 1 tab PO Q6H PRN #20 tablet 09/05/18 09/21/18 Rx 5/325 mg] Azithromycin [Zithromax Z-IGNACIO] 0 mg PO DAILY #1 tab 10/13/18 Unknown Rx Allergies Allergy/AdvReac Type Severity Reaction Status Date / Time aspirin Allergy Unknown Verified 03/16/17 01:25 pork derived (porcine) Allergy Rash Verified 03/16/17 01:27 venom-honey bee Allergy Anaphylaxis Verified 03/16/17 01:27 [bee venom (honey bee)] Pork/Porcine Containing AdvReac Severe Nausea,VOMI Verified 02/13/17 09:31 Products TING ED Review of Systems ROS: Stated complaint: DIARRHEA Other details as noted in HPI Comment: All other systems reviewed and negative ED Past Medical Hx - Past Medical History Previous Medical History?: Yes Hx Hypertension: Yes Hx Heart Attack/AMI: No Hx Congestive Heart Failure: Yes Hx Diabetes: Yes Hx Deep Vein Thrombosis: Yes Hx Renal Disease: No Hx Arthritis: Yes Hx Kidney Stones: No Hx Psychiatric Treatment: Yes (PTSD) Hx Asthma: No Hx COPD: Yes (Pt is on Home O2 2L/NC.) Additional medical history: 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 abd surgery after war related ingury partial "stomach removal' - Social History Smoking Status: Former Smoker Substance Use Type: Prescribed - Medications Home Medications: Home Medications Medication Instructions Recorded Confirmed Last Taken Type Acetaminophen [Acetaminophen TAB] 650 mg PO Q4H PRN tablet 05/05/18 10/12/18 09/21/18 Rx diphenhydrAMINE [Benadryl CAP] 25 mg PO Q6H PRN #15 capsule 05/05/18 10/12/18 09/21/18 Rx Apixaban [Eliquis] 2.5 mg PO Q12HR #60 tablet 09/05/18 10/12/18 09/21/18 Rx AtorvaSTATin [Lipitor] 40 mg PO QHS #30 tablet 09/05/18 10/12/18 09/21/18 Rx Epoetin Prashant 10,000 Unit [Procrit] 10,000 unit SUB-Q KATERYNA PRN #30 vial 09/05/18 0 10/12/18 09/21/18 Rx FLUoxetine HCL [Fluoxetine HCl] 40 mg PO QDAY #30 capsule 09/05/18 10/12/18 Rx Famotidine [Pepcid] 10 mg PO BID #15 tablet 09/05/18 10/12/18 09/21/18 Rx Fe Fumarate/FA/Mv, Min Comb#15 1 each PO QDAY #30 capsule 09/05/18 10/12/18 09/21/18 Rx [Hemocyte Plus] ISOSORBIDE MONOnitrate [Imdur ER] 30 mg PO QDAY #30 tablet 09/05/18 10/12/18 09/21/18 Rx Lactulose [Cephulac] 20 gm PO BID oral.liqd 09/05/18 10/12/18 09/21/18 Rx Losartan [Cozaar] 100 mg PO QDAY 30 Days tablet 09/05/18 10/12/18 09/21/18 Rx Metoprolol Xl [Metoprolol 100 mg PO QDAY #30 tablet 09/05/18 10/12/18 09/21/18 Rx SUCCINATE ER TAB] Polyethylene Glycol 3350 [Miralax 17 gm PO QDAY PRN powd.pack 09/05/18 10/12/18 09/21/18 Rx 3350] Sennosides/Docusate [Senokot S] 1 tab PO BID tablet 09/05/18 10/12/18 09/21/18 Rx amLODIPine [Norvasc] 10 mg PO DAILY #30 tablet 09/05/18 10/12/18 09/21/18 Rx hydrALAZINE [Apresoline TAB] 50 mg PO Q8HR #90 tablet 09/05/18 10/12/18 09/21/18 Rx oxyCODONE /ACETAMINOPHEN [Percocet 1 tab PO Q6H PRN #20 tablet 09/05/18 10/12/18 09/21/18 Rx 5/325 mg] Azithromycin [Zithromax Z-IGNACIO] 0 mg PO DAILY #1 tab 10/13/18 Unknown Rx ED Physical Exam - General Limitations: No Limitations - Other Other exam information: General: No limitations, patient is alert in no acute distress Head exam: Atraumatic, normocephalic Eyes exam: Diffuse left eyes subconjunctival hematoma. Pupils equal reactive to light. No fluorescein uptake with staining. Right 20/40, Left 20/50, Both 20/30 ENT: Moist mucous membrane, normal oropharynx Neck exam: Normal inspection, full range of motion, no meningismus nontender Respiratory exam: Clear to auscultation bilateral, no wheezes, rales, crackles Cardiovascular: Irregular rhythm. Right upper chest wall Vas-Cath. Clotted previous right arm access. Left arm access site with jonathon with palpable pulse Abdomen: Soft, nondistended, midline vertical upper abdominal scar noted. Tenderness to the left lower quadrant and epigastric tenderness, with normal bowel sounds, no rebound, or guarding Extremity: Full range of motion normal inspection no deformity Back: Normal Inspection, full range of motion, no tenderness Neurologic: Alert, oriented x3, cranial nerves intact, no motor or sensory deficit Psychiatric: normal affect, normal mood Skin: Warm, dry, intact ED Course Vital Signs 11/05/18 11/05/18 11/05/18 21:59 23:00 23:50 Temperature 97.6 F 97.7 F Pulse Rate 82 76 Respiratory 22 20 20 Rate Blood Pressure 166/119 Blood Pressure 166/105 [Right] O2 Sat by Pulse 100 98 98 Oximetry 11/06/18 00:31 Temperature Pulse Rate Respiratory 20 Rate Blood Pressure Blood Pressure [Right] O2 Sat by Pulse Oximetry - Consultations Consultation #1: 11/06/18 01:17 Is discussed with one call toe puncher is Dr. Masters who recommends admission for dialysis and reassessment of pleural effusion after volume/fluid removal. ED Medical Decision Making - Lab Data Result diagrams: 11/05/18 22:07 11/05/18 22:07 Lab Results 11/05/18 11/05/18 Range/Units 22:07 22:07 WBC 4.8 (4.5-11.0) K/mm3 RBC 3.11 L (3.65-5.03) M/mm3 Hgb 10.4 L (11.8-15.2) gm/dl Hct 32.0 L (35.5-45.6) % MCV 103 H (84-94) fl MCH 33 H (28-32) pg MCHC 33 (32-34) % RDW 16.8 H (13.2-15.2) % Plt Count 149 (140-440) K/mm3 Lymph % (Auto) 29.5 (13.4-35.0) % Mcculloch % (Auto) 8.1 H (0.0-7.3) % Eos % (Auto) 4.6 H (0.0-4.3) % Baso % (Auto) 1.2 (0.0-1.8) % Lymph # 1.4 (1.2-5.4) K/mm3 [place]cculloch # 0.4 (0.0-0.8) K/mm3 Eos # 0.2 (0.0-0.4) K/mm3 Baso # 0.1 (0.0-0.1) K/mm3 Seg Neutrophils % 56.6 (40.0-70.0) % Seg Neutrophils # 2.7 (1.8-7.7) K/mm3 Sodium 141 (137-145) mmol/L Potassium 4.8 (3.6-5.0) mmol/L Chloride 103.4 (98-107) mmol/L Carbon Dioxide 22 (22-30) mmol/L Anion Gap 20 mmol/L BUN 56 H (9-20) mg/dL Creatinine 8.4 H (0.8-1.5) mg/dL Estimated GFR 8 ml/min BUN/Creatinine Ratio 7 % Glucose 64 L (75-100) mg/dL Calcium 8.4 (8.4-10.2) mg/dL Total Bilirubin 0.40 (0.1-1.2) mg/dL AST 48 H (5-40) units/L ALT 28 (7-56) units/L Alkaline Phosphatase 151 H (35-129) units/L Total Protein 6.3 (6.3-8.2) g/dL Albumin 3.1 L (3.9-5) g/dL Albumin/Globulin Ratio 1.0 % - EKG Data -: EKG Interpreted by Me (atrial fibrillation ) EKG shows normal: axis (qrs -59), QRS complexes (qrsd 109), ST-T waves (no stemi) Rate: normal (90) - Medical Decision Making Patient be admitted to the hospital to receive dialysis for ascites and pleural effusions identified on CT. Patient appears to have a spontaneous subconjunctival hemorrhage upon awaking and is on anticoagulants. No signs of cornea abrasion and patient has a good visual acuity. Outpatient follow-up ophthalmology suggested - Differential Diagnosis gastroenteritis, food poisoning, obstruction Critical Care Time: No Critical care attestation.: If time is entered above; I have spent that time in minutes in the direct care of this critically ill patient, excluding procedure time. ED Disposition Clinical Impression: Acute diarrhea, Afib, Anticoagulant long-term use, Pleural effusion, ESRD needing dialysis, Subconjunctival hemorrhage of left eye, HTN (hypertension) Disposition: -09 OP ADMIT IP TO THIS HOSP Is pt being admited?: Yes Condition: Stable Time of Disposition: 01:05 (DR Cordero/hosp)
[2018-11-06] MEDS ORDERED: SODIUM CHLORIDE FLUSH SYRINGE 10 ML IV PRN (01:48)
[2018-11-06] MEDS ORDERED: TYLENOL PO PRN (01:48)
[2018-11-06] MEDS ORDERED: ZOFRAN IV PRN (01:48)
[2018-11-06] MEDS ORDERED: APRESOLINE IV PRN (01:58)
[2018-11-06] MEDS ORDERED: TETRACAINE 0.5% OU ONE (02:00)
[2018-11-06] MEDS: NORVASC PO SCH ×2 (02:33→09:35)
[2018-11-06] MEDS: DILAUDID IV PRN ×6 (02:35→23:59)
--- NOTE | 2018-11-06 03:08 | History and Physical Report ---
History of Present Illness Date of examination: 11/06/18 Chief complaint: Diarrhea History of present illness: Patient is a 71 year old -[place] male with history of end-stage renal disease on hemodialysis who presented to the ED with a day history of diarrhea. He stated that he has had 8 episodes of diarrhea today. The stool is nonbloody, non-mucoid and foul-smelling. He has associated generalized abdominal pain, headaches, lightheadedness and generalized weakness. He also has positive history of shortness of breath on mild exertion. He denies chest pain, palpitations, fever, chills, leg swelling, sore throat, runny nose or congestion, orthopnea or PND. No nausea, vomiting, syncope or loss of consciousness. Of note, patient admits to taking antibiotic about a week ago Past History Past Medical History: atrial fib, arthritis, COPD (on home oxygen 2 L), diabetes, dialysis, DVT, ESRD, heart failure, hypertension, other (PTSD) Past Surgical History: Other (neck and back surgery, dialysis catheter placem ent, left forearm amputation, clot removal in left upper extremity) Social history: smoking (patient smoked cigarettes for 10 years but quit 5-6 years ago. He denies alcohol or illicit drug use) Family history: other (reviewed and noncontributory to current complaint) Medications and Allergies Allergies Allergy/AdvReac Type Severity Reaction Status Date / Time aspirin Allergy Unknown Verified 03/16/17 01:25 pork derived (porcine) Allergy Rash Verified 03/16/17 01:27 venom-honey bee Allergy Anaphylaxis Verified 03/16/17 01:27 [bee venom (honey bee)] Pork/Porcine Containing AdvReac Severe Nausea,VOMI Verified 02/13/17 09:31 Products TING Home Medications Medication Instructions Recorded Confirmed Last Taken Type Acetaminophen [Acetaminophen TAB] 650 mg PO Q4H PRN tablet 05/05/18 10/12/18 09/21/18 Rx diphenhydrAMINE [Benadryl CAP] 25 mg PO Q6H PRN #15 capsule 05/05/18 10/12/18 09/21/18 Rx Apixaban [Eliquis] 2.5 mg PO Q12HR #60 tablet 09/05/18 10/12/18 09/21/18 Rx AtorvaSTATin [Lipitor] 40 mg PO QHS #30 tablet 09/05/18 10/12/18 09/21/18 Rx Epoetin Prashant 10,000 Unit [Procrit] 10,000 unit SUB-Q KATERYNA PRN #30 vial 09/05/18 10/12/18 09/21/18 Rx FLUoxetine HCL [Fluoxetine HCl] 40 mg PO QDAY #30 capsule 09/05/18 10/12/18 04/11/04 Rx Famotidine [Pepcid] 10 mg PO BID #15 tablet 09/05/18 10/12/18 09/21/18 Rx Fe Fumarate/FA/Mv, Min Comb#15 1 each PO QDAY #30 capsule 09/05/18 10/12/18 09/21/18 Rx [Hemocyte Plus] ISOSORBIDE MONOnitrate [Imdur ER] 30 mg PO QDAY #30 tablet 09/05/18 10/12/18 09/21/18 Rx Lactulose [Cephulac] 20 gm PO BID oral.liqd 09/05/18 10/12/18 09/21/18 Rx Losartan [Cozaar] 100 mg PO QDAY 30 Days tablet 09/05/18 10/12/18 09/21/18 Rx Metoprolol Xl [Metoprolol 100 mg PO QDAY #30 tablet 09/05/18 10/12/18 09/21/18 Rx SUCCINATE ER TAB] Polyethylene Glycol 3350 [Miralax 17 gm PO QDAY PRN powd.pack 09/05/18 10/12/18 09/21/18 Rx 3350] Sennosides/Docusate [Senokot S] 1 tab PO BID tablet 09/05/18 10/12/18 09/21/18 Rx amLODIPine [Norvasc] 10 mg PO DAILY #30 tablet 09/05/18 10/12/18 09/21/18 Rx hydrALAZINE [Apresoline TAB] 50 mg PO Q8HR #90 tablet 09/05/18 10/12/18 09/21/18 Rx oxyCODONE /ACETAMINOPHEN [Percocet 1 tab PO Q6H PRN #20 tablet 09/05/18 10/12/18 09/21/18 Rx 5/325 mg] Azithromycin [Zithromax Z-IGNACIO] 0 mg PO DAILY #1 tab 10/13/18 Unknown Rx Active Meds: Active Medications Acetaminophen (Tylenol) 650 mg PO Q4H PRN PRN Reason: Pain MILD(1-3)/Fever >100.5/DOUGLAS Amlodipine Besylate (Norvasc) 10 mg PO QDAY [facility] Last Admin: 11/06/18 02:33 Dose: 10 mg Documented by: Hydralazine HCl (Apresoline) 20 mg IV Q4H PRN PRN Reason: Blood Pressure Hydromorphone HCl (Dilaudid) 0.5 mg IV Q3H PRN PRN Reason: Pain , Severe (7-10) Last Admin: 11/06/18 02:35 Dose: 0.5 mg Documented by: Sodium Chloride (Nacl 0.9%) 100 mls @ 999 mls/hr IV KATERYNA PRN PRN Reason: Hypotension Losartan Potassium (Cozaar) 100 mg PO QDAY [facility] Metoprolol Succinate (Toprol Xl) 50 mg PO QDAY [facility] Ondansetron HCl (Zofran) 4 mg IV Q8H PRN PRN Reason: Nausea And Vomiting Sodium Chloride (Sodium Chloride Flush Syringe 10 Ml) 10 ml IV BID BEAN Sodium Chloride (Sodium Chloride Flush Syringe 10 Ml) 10 ml IV PRN PRN PRN Reason: LINE FLUSH Review of Systems All systems: negative (except as documented in the HPI, 14 point system were negative) Exam - Constitutional Vitals: Temp Pulse Resp BP Pulse Ox 97.7 F 89 20 169/130 98 11/05/18 23:00 11/06/18 02:33 11/06/18 02:35 11/06/18 02:33 11/05/18 23:50 General appearance: Present: no acute distress - EENT Eyes: Present: PERRL, EOM intact, conjunctival injection (left eye) ENT: hearing intact, clear oral mucosa - Neck Neck: Present: supple - Respiratory Respiratory effort: normal Respiratory: bilateral: diminished - Cardiovascular Rhythm: irregularly irregular Heart Sounds: Present: S1 & S2 - Extremities Extremities: No edema Extremity abnormal: other (LT forearm amputation) - Abdominal General gastrointestinal: Present: soft, tender (generalized), non-distended, normal bowel sounds Male genitourinary: Present: deferred - Integumentary Integumentary: Present: clear, warm, dry - Musculoskeletal Musculoskeletal: strength equal bilaterally - Psychiatric Psychiatric: appropriate mood/affect, intact judgment & insight - Neurologic Neurologic: moves all extremities Results - Labs CBC & Chem 7: 11/05/18 22:07 11/05/18 22:07 Labs: Laboratory Last Values WBC 4.8 K/mm3 (4.5-11.0) 11/05/18 22:07 RBC 3.11 M/mm3 (3.65-5.03) L 11/05/18 22:07 Hgb 10.4 gm/dl (11.8-15.2) L 11/05/18 22:07 Hct 32.0 % (35.5-45.6) L 11/05/18 22:07 MCV 103 fl (84-94) H 11/05/18 22:07 MCH 33 pg (28-32) H 11/05/18 22:07 MCHC 33 % (32-34) 11/05/18 22:07 RDW 16.8 % (13.2-15.2) H 11/05/18 22:07 Plt Count 149 K/mm3 (140-440) 11/05/18 22:07 Lymph % (Auto) 29.5 % (13.4-35.0) 11/05/18 22:07 [place]ney % (Auto) 8.1 % (0.0-7.3) H 11/05/18 22:07 Eos % (Auto) 4.6 % (0.0-4.3) H 11/05/18 22:07 Baso % (Auto) 1.2 % (0.0-1.8) 11/05/18 22:07 Lymph # 1.4 K/mm3 (1.2-5.4) 11/05/18 22:07 [place]ney # 0.4 K/mm3 (0.0-0.8) 11/05/18 22:07 Eos # 0.2 K/mm3 (0.0-0.4) 11/05/18 22:07 Baso # 0.1 K/mm3 (0.0-0.1) 11/05/18 22:07 Seg Neutrophils % 56.6 % (40.0-70.0) 11/05/18 22:07 Seg Neutrophils # 2.7 K/mm3 (1.8-7.7) 11/05/18 22:07 Sodium 141 mmol/L (137-145) 11/05/18 22:07 Potassium 4.8 mmol/L (3.6-5.0) 11/05/18 22:07 Chloride 103.4 mmol/L (98-107) 11/05/18 22:07 Carbon Dioxide 22 mmol/L (22-30) 11/05/18 22:07 20 mmol/L 11/05/18 22:07 BUN 56 mg/dL (9-20) H 11/05/18 22:07 8.4 mg/dL (0.8-1.5) H 11/05/18 22:07 Estimated GFR 8 ml/min 11/05/18 22:07 7 % 11/05/18 22:07 Glucose 64 mg/dL (75-100) L 11/05/18 22:07 POC Glucose 82 (70-105) 11/06/18 01:16 Calcium 8.4 mg/dL (8.4-10.2) 11/05/18 22:07 0.40 mg/dL (0.1-1.2) 11/05/18 22:07 AST 48 units/L (5-40) H 11/05/18 22:07 ALT 28 units/L (7-56) 11/05/18 22:07 151 units/L (35-129) H 11/05/18 22:07 6.3 g/dL (6.3-8.2) 11/05/18 22:07 3.1 g/dL (3.9-5) L 11/05/18 22:07 1.0 % 11/05/18 22:07 Assessment and Plan Assessment and plan: Diarrhea -Stool studies including C. difficile toxin -Contact isolation Acute and chronic combined systolic heart failure with EF of 10-15% -No diuretic since patient does not make urine -Nephrology consulted for hemodialysis Hypertensive urgency -On antihypertensives, adjust as needed Fluid overload in ESRD on HD -Nephrology consulted Chronic atrial fibrillation -Heart rate controlled -Continue home anticoagulation with Eliquis DM2 with hypoglycemia -On hypoglycemic protocol COPD -No acute exacerbation -On duonebs Chronic hypoxic respiratory failure on home oxygen 2 L -Cont oxygen supplementation as needed Left subconjunctival hemorrhage -We will monitor. Disposition: For discharge when medically stable Time spent: 38 minutes
[2018-11-06] MEDS ORDERED: FUL-GLO OP ONE (03:16)
[2018-11-06] MEDS ORDERED: PROVENTIL IH PRN (03:18)
[2018-11-06] MEDS: COZAAR PO SCH ×2 (04:13→09:35)
[2018-11-06] MEDS ORDERED: D50W (25GM) Syringe IV PRN (04:35)
[2018-11-06] MEDS: TOPROL XL PO SCH ×2 (05:00→09:35)
[2018-11-06] MEDS: HumaLOG SUB-Q SCH ×4 (07:30→22:43)
--- NOTE | 2018-11-06 09:14 | Consultation ---
History of Present Illness - Reason for Consult Consult date: 11/06/18 end stage renal disease - History of Present Illness The patient is a 71 YO male who is known to our service with history significant for DM type 2, HTN, A.fib, CAD, CHF, PTSD, PAD s/p left forearm amputation, chronic L pleural effusion and ESRD on hemodialysis (TTS) who presented to [facility] ED with c/o diarrhea. Per patient the symptoms started yesterday evening iwth watery stools. He had about 4-5 episodes before he came to the ER. Associated symptoms include abd discomfort. He denies any N, V, fever, chills, increasing sob, diaphoresis, leg swelling, dizziness or syncope. Patient was last dialyzed 3 days ago. Nephrology was consulted for ESRD management. Past History Past Medical History: atrial fib, arthritis, COPD (on home oxygen 2 L), diabetes, dialysis, DVT, ESRD, heart failure, hypertension, other (PTSD) Past Surgical History: Other (neck and back surgery, dialysis catheter placement, left forearm amputation, clot removal in left upper extremity) Social history: smoking (patient smoked cigarettes for 10 years but quit 5-6 years ago. He denies alcohol or illicit drug use) Family history: other (reviewed and noncontributory to current complaint) Medications and Allergies Allergies Allergy/AdvReac Type Severity Reaction Status Date / Time aspirin Allergy Unknown Verified 03/16/17 01:25 pork derived (porcine) Allergy Rash Verified 03/16/17 01:27 venom-honey bee Allergy Anaphylaxis Verified 03/16/17 01:27 [bee venom (honey bee)] Pork/Porcine Containing AdvReac Severe Nausea,VOMI Verified 02/13/17 09:31 Products TING Home Medications Medication Instructions Recorded Confirmed Last Taken Type Acetaminophen [Acetaminophen TAB] 650 mg PO Q4H PRN tablet 05/05/18 11/06/18 0 09/21/18 Rx Apixaban [Eliquis] 2.5 mg PO Q12HR #60 tablet 09/05/18 11/06/18 09/21/18 Rx AtorvaSTATin [Lipitor] 40 mg PO QHS #30 tablet 09/05/18 11/06/18 09/21/18 Rx Epoetin Prashant 10,000 Unit [Procrit] 10,000 unit SUB-Q KATERYNA PRN #30 vial 03/11/06/18 09/21/18 Rx FLUoxetine HCL [Fluoxetine HCl] 40 mg PO QDAY #30 capsule 09/05/18 11/06/18 09/21/18 Rx Famotidine [Pepcid] 10 mg PO BID #15 tablet 09/05/18 11/06/18 09/21/18 Rx Fe Fumarate/FA/Mv, Min Comb#15 1 each PO QDAY #30 capsule 09/05/18 11/06/18 09/21/18 Rx [Hemocyte Plus] ISOSORBIDE MONOnitrate [Imdur ER] 30 mg PO QDAY #30 tablet 09/05/18 11/06/18 09/21/18 Rx Losartan [Cozaar] 100 mg PO QDAY 30 Days tablet 09/05/18 11/06/18 09/21/18 Rx Metoprolol Xl [Metoprolol 100 mg PO QDAY #30 tablet 09/05/18 11/06/18 09/21/18 Rx SUCCINATE ER TAB] Polyethylene Glycol 3350 [Miralax 17 gm PO QDAY PRN powd.pack 09/05/18 11/06/18 09/21/18 Rx 3350] Sennosides/Docusate [Senokot S] 1 tab PO BID tablet 09/05/18 11/06/18 09/21/18 Rx amLODIPine [Norvasc] 10 mg PO DAILY #30 tablet 09/05/18 11/06/18 09/21/18 Rx Azithromycin [Zithromax Z-IGNACIO] 0 mg PO DAILY #1 tab 10/13/18 11/06/18 Unknown Rx hydrALAZINE [Apresoline TAB] 50 mg PO BID 11/06/18 11/06/18 Unknown History Active Meds: Active Medications Acetaminophen (Tylenol) 650 mg PO Q4H PRN PRN Reason: Pain MILD(1-3)/Fever >100.5/DOUGLAS Albuterol (Proventil) 2.5 mg IH Q4HRT PRN PRN Reason: Shortness Of Breath Amlodipine Besylate (Norvasc) 10 mg PO QDAY BEAN Last Admin: 11/06/18 02:33 Dose: 10 mg Documented by: Apixaban (Eliquis) 2.5 mg PO Q12HR BEAN; Protocol Dextrose (D50w (25gm) Syringe) 50 ml IV PRN PRN PRN Reason: Hypoglycemia Hydralazine HCl (Apresoline) 20 mg IV Q4H PRN PRN Reason: Blood Pressure Hydromorphone HCl (Dilaudid) 0.5 mg IV Q3H PRN PRN Reason: Pain , Severe (7-10) Last Admin: 11/06/18 07:11 Dose: 0.5 mg Documented by: Sodium Chloride (Nacl 0.9%) 100 mls @ 999 mls/hr IV KATERYNA PRN PRN Reason: Hypotension Insulin Human Lispro (Humalog) 0 unit SUB-Q ACHS [facility]; Protocol Losartan Potassium (Cozaar) 100 mg PO QDAY [facility] Last Admin: 11/06/18 04:13 Dose: 100 mg Documented by: Metoprolol Succinate (Toprol Xl) 50 mg PO QDAY [facility] Last Admin: 11/06/18 05:00 Dose: 50 mg Documented by: Ondansetron HCl (Zofran) 4 mg IV Q8H PRN PRN Reason: Nausea And Vomiting Sodium Chloride (Sodium Chloride Flush Syringe 10 Ml) 10 ml IV BID [facility] Sodium Chloride (Sodium Chloride Flush Syringe 10 Ml) 10 ml IV PRN PRN PRN Reason: LINE FLUSH Review of Systems Constitutional: no weight loss, no weight gain, no fever, no chills, no anorexia, no weakness, no poor appetite Cardiovascular: shortness of breath, dyspnea on exertion, decreased exercise tolerance, no chest pain, no orthopnea, no edema, no syncope, no lightheadedness Respiratory: shortness of breath, dyspnea on exertion, no cough, no hemoptysis Gastrointestinal: abdominal pain, diarrhea, no nausea, no vomiting, no he matemesis, no melena Genitourinary Male: no dysuria, no hematuria Rectal: no bleeding Musculoskeletal: no muscle weakness, no muscle cramps Integumentary: no rash, no jaundice Neurological: no paralysis, no weakness, no convulsions, no aphasia, no change in speech, no change in mentation, no confusion Exam - Vital Signs Vital signs: Vital Signs Temp Pulse Resp BP Pulse Ox 97.6 F 82 22 166/119 100 11/05/18 21:59 11/05/18 21:59 11/05/18 21:59 11/05/18 21:59 11/05/18 21:59 - General Appearance General appearance: well-developed, appears stated age, other (not in distress, R IJ tunnel catheter) EENT: ATNC, PERRL, hearing intact, vision intact Neck: Present: neck supple, trachea midline Respiratory: Clear to Ascultation, Decreased Breath Sounds (L base) Heart: irregularly irregular, S1S2, no murmurs Gastrointestinal: Present: normoactive bowel sounds. Absent: tenderness, distended Integumentary: no rash Neurologic: no focal deficit, no asterixis, alert and oriented x3 Musculoskeletal: Present: other (L below elbow amputation) Results - Lab Results 11/05/18 22:07 11/05/18 22:07 Most recent lab results Calcium 8.4 mg/dL (8.4-10.2) 11/05/18 22:07 Assessment and Plan 1. ESRD: Continue hemodialysis three times a week, TTS schedule. HD today. 2. Diarrhea: Resolved now. 3. A.fib: Rate controlled. 4. DM type 2. 5. Chronic pleural effusion. 6. Anemia: Epogen if needed. 7. PAD.
[2018-11-06] MEDS: ELIQUIS PO SCH ×2 (09:35→22:41)
[2018-11-06] MEDS: SODIUM CHLORIDE FLUSH SYRINGE 10 ML IV SCH ×2 (09:38→22:43)
[2018-11-06] MEDS ORDERED: HEPARIN SUB-Q SCH (10:00)
--- NOTE | 2018-11-06 10:14 | Event Note ---
Date: 11/06/18 Patient was admitted this morning with diarrhea Patient feels slightly better, stool analysis pending Medical records reviewed, agree with the current management
[2018-11-06] MEDS ORDERED: NACL 0.9 (PRIMING MACHINE ONLY DIALYSIS) MC ONE (11:11)
[2018-11-06] MEDS ORDERED: MIRALAX 3350 PO PRN (19:16)
[2018-11-06] MEDS: APRESOLINE PO SCH (22:41)
[2018-11-07] MEDS: DILAUDID IV PRN ×6 (03:20→23:10)
[2018-11-07] MEDS ORDERED: BENADRYL PO ONE (04:28)
[2018-11-07 07:10] LABS: Basophils # (Auto) 0.1 K/mm3 (0.0-0.1); Basophils % (Auto) 1.9 % (0.0-1.8); Eosinophils # (Auto) 0.2 K/mm3 (0.0-0.4); Hematocrit 30.2 % (35.5-45.6); Lymphocytes # (Auto) 0.9 K/mm3 (1.2-5.4); Lymphocytes % (Auto) 21.6 % (13.4-35.0); Mean Corpuscular HGB Conc 33 % (32-34); Mean Corpuscular Volume 103 fl (84-94); Monocytes # (Auto) 0.3 K/mm3 (0.0-0.8); Monocytes % (Auto) 7.2 % (0.0-7.3); Platelet Count 128 K/mm3 (140-440); Red Blood Count 2.95 M/mm3 (3.65-5.03); Red Cell Distribution Width 17.1 % (13.2-15.2)
[2018-11-07 07:34] LABS: Albumin 2.9 g/dL (3.9-5); Calcium 8.6 mg/dL (8.4-10.2)
--- NOTE | 2018-11-07 09:05 | Progress Note ---
Assessment and Plan 1. ESRD: Continue hemodialysis three times a week, TTS schedule. 2. Diarrhea: Resolved. 3. A.fib: Rate controlled. 4. DM type 2. 5. Chronic pleural effusion. 6. Anemia: Epogen if needed. 7. PAD. Subjective Date of service: 11/07/18 Interval history: Patient is feeling better today. Objective - Vital Signs Vital signs: Vital Signs - 12hr 11/06/18 11/06/18 11/06/18 22:41 23:01 23:59 Temperature 97.4 F L Pulse Rate 70 64 Respiratory 16 18 Rate Blood Pressure 123/84 149/102 O2 Sat by Pulse 100 Oximetry 11/07/18 11/07/18 11/07/18 00:29 03:20 03:31 Temperature 97.8 F Pulse Rate 72 Respiratory 18 18 16 Rate Blood Pressure 147/100 O2 Sat by Pulse 100 Oximetry 11/07/18 11/07/18 03:50 06:36 Temperature Pulse Rate Respiratory 18 18 Rate Blood Pressure O2 Sat by Pulse Oximetry - General Appearance General appearance: well-developed, appears stated age, other (not in distress, R IJ tunnel catheter) EENT: PERRL, other (L subconjunctival hemorrhage (POA)) Neck: supple Respiratory: Present: Clear to Ascultation Cardiology: irregularly irregular, S1S2, no murmurs Gastrointestinal: normoactive bowel sounds, no tenderness, no distended Integumentary: no rash, warm and dry Neurologic: no focal deficit, no asterixis, alert and oriented x3 Musculoskeletal: other (L arm below elbow amputation) - Lab 11/07/18 05:10 11/07/18 05:10 Most recent lab results Calcium 8.6 mg/dL (8.4-10.2) 11/07/18 05:10 Magnesium 1.80 mg/dL (1.7-2.3) 11/07/18 05:10 Medications & Allergies - Medications Allergies/Adverse Reactions: Allergies aspirin Allergy (Verified 03/16/17 01:25) Unknown stomach cramps pork derived (porcine) Allergy (Verified 03/16/17 01:27) Rash venom-honey bee [bee venom (honey bee)] Allergy (Verified 03/16/17 01:27) Anaphylaxis Pork/Porcine Containing Products Adverse Reaction (Severe, Verified 02/13/17 09:31) Nausea,VOMITING Home Medications: Home Medications Medication Instructions Recorded Confirmed Last Taken Type Acetaminophen [Acetaminophen TAB] 650 mg PO Q4H PRN tablet 05/05/18 11/06/18 09/21/18 Rx Apixaban [Eliquis] 2.5 mg PO Q12HR #60 tablet 09/05/18 11/06/18 09/21/18 Rx AtorvaSTATin [Lipitor] 40 mg PO QHS #30 tablet 09/05/18 11/06/18 09/21/18 Rx Epoetin Prashant 10,000 Unit [Procrit] 10,000 unit SUB-Q KATERYNA PRN #30 vial 09/05/18 11/06/18 09/21/18 Rx FLUoxetine HCL [Fluoxetine HCl] 40 mg PO QDAY #30 capsule 09/05/18 11/06/1811/04 Rx Famotidine [Pepcid] 10 mg PO BID #15 tablet 09/05/18 11/06/18 09/21/18 Rx Fe Fumarate/FA/Mv, Min Comb#15 1 each PO QDAY #30 capsule 09/05/18 11/06/18 09/21/18 Rx [Hemocyte Plus] ISOSORBIDE MONOnitrate [Imdur ER] 30 mg PO QDAY #30 tablet 09/05/18 11/06/18 09/21/18 Rx Losartan [Cozaar] 100 mg PO QDAY 30 Days tablet 09/05/18 11/06/18 09/21/18 Rx Metoprolol Xl [Metoprolol 100 mg PO QDAY #30 tablet 09/05/18 11/06/18 09/21/18 Rx SUCCINATE ER TAB] Polyethylene Glycol 3350 [Miralax 17 gm PO QDAY PRN powd.pack 09/05/18 11/06/18 09/21/18 Rx 3350] Sennosides/Docusate [Senokot S] 1 tab PO BID tablet 09/05/18 11/06/18 09/21/18 Rx amLODIPine [Norvasc] 10 mg PO DAILY #30 tablet 09/05/18 11/06/18 09/21/18 Rx hydrALAZINE [Apresoline TAB] 50 mg PO BID 11/06/18 11/06/18 Unknown History Mag Hydrox/Aluminum Hyd/Simeth 355 ml PO DAILY PRN 15 Days 11/08/18 Unknown Rx [Maalox Advanced Suspension] oral.susp Active Medications: Generic Name Dose Route Start Last Admin Trade Name Freq PRN Reason Stop Dose Admin Acetaminophen 650 mg 11/06/18 01:48 Tylenol PO Q4H PRN Pain MILD(1-3)/Fever >100.5/DOUGLAS Albuterol 2.5 mg 11/06/18 03:18 Proventil IH Q4HRT PRN Shortness Of Breath Amlodipine Besylate 10 mg 11/06/18 01:57 11/06/18 09:35 Norvasc PO 10 mg QDAY BEAN Administration Apixaban 2.5 mg 11/06/18 10:00 11/06/18 22:41 Eliquis PO 2.5 mg Q12HR BEAN Administration Protocol Atorvastatin Calcium 40 mg 11/06/18 22:00 11/06/18 22:41 Lipitor PO 40 mg QHS BEAN Administration Dextrose 50 ml 11/06/18 04:35 D50w (25gm) Syringe IV PRN PRN Hypoglycemia Fluoxetine HCl 40 mg 11/07/18 10:00 Prozac PO QDAY BEAN Hydralazine HCl 20 mg 11/06/18 01:58 Apresoline IV Q4H PRN Blood Pressure Hydralazine HCl 50 mg 11/06/18 22:00 11/06/18 22:41 Apresoline PO 50 mg BID BEAN Administration Hydromorphone HCl 0.5 mg 11/06/18 01:48 11/07/18 06:36 Dilaudid IV 0.5 mg Q3H PRN Administration Pain , Severe (7-10) Sodium Chloride 100 mls @ 999 mls/hr 11/06/18 00:41 Nacl 0.9% IV KATERYNA PRN Hypotension Insulin Human Lispro 0 unit 11/06/18 07:30 11/06/18 22:43 Humalog SUB-Q Not Given ACHS [facility] Protocol Isosorbide Mononitrate 30 mg 11/07/18 10:00 Imdur PO QDAY BEAN Losartan Potassium 100 mg 11/06/18 01:57 11/06/18 09:35 Cozaar PO 100 mg QDAY BEAN Administration Metoprolol Succinate 50 mg 11/06/18 01:58 11/06/18 09:35 Toprol Xl PO 50 mg QDAY BEAN Administration Ondansetron HCl 4 mg 11/06/18 01:48 Zofran IV Q8H PRN Nausea And Vomiting Polyethylene Glycol 17 gm 11/06/18 19:16 Miralax 3350 PO QDAY PRN Constipation Sodium Chloride 10 ml 11/06/18 10:00 11/06/18 22:43 Sodium Chloride Flush Syringe 10 Ml IV 10 ml BID BEAN Administration Sodium Chloride 10 ml 11/06/18 01:48 Sodium Chloride Flush Syringe 10 Ml IV PRN PRN LINE FLUSH
[2018-11-07] MEDS ORDERED: NON-FORMULARY (Fluoxetine Hcl [Fluoxetine Hcl] 40 MG) PO SCH (10:00)
[2018-11-07] MEDS: HumaLOG SUB-Q SCH ×4 (11:27→21:47)
[2018-11-07] MEDS: PROzac PO SCH (11:29)
[2018-11-07] MEDS: COZAAR PO SCH (11:31)
[2018-11-07] MEDS: APRESOLINE PO SCH ×2 (11:31→21:46)
[2018-11-07] MEDS: ELIQUIS PO SCH ×2 (11:34→21:46)
[2018-11-07] MEDS: SODIUM CHLORIDE FLUSH SYRINGE 10 ML IV SCH ×2 (11:34→21:47)
--- NOTE | 2018-11-07 18:41 | Progress Note ---
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% No diuretic since patient does not make urine Hemodialysis per schedule --Hypertensive urgency; blood pressures moderate control Continue antihypertensives, when necessary medications --Fluid overload in ESRD on HD, nephrology following --Chronic atrial fibrillation; rate controlled Continue beta blockers ,anticoagulation with Eliquis --DM2 with hypoglycemia; close monitoring of blood sugars --History of COPD; well compensated Continue oxygen and DuoNeb's , supportive care --The left forearm s/p vascular procedure Surgical clips and wound clean, continue wound care --Chronic hypoxic respiratory failure on home oxygen 2 L Stable --Left subconjunctival hemorrhage improved; Disposition: Possible discharge tomorrow if stable Plan of care is reviewed with the patient and his nurse Consults noted no appreciated History Interval history: Patient seen and examined and medical records reviewed No new events reported by the nursing Diarrhea significantly improved Vital signs noted Hospitalist Physical - Constitutional Vitals: Temp Pulse Resp BP Pulse Ox 98.0 F 71 14 146/99 100 11/07/18 16:55 11/07/18 16:55 11/07/18 16:55 11/07/18 16:55 11/07/18 16:55 General appearance: Present: no acute distress, well-nourished, cachectic, disheveled - EENT Eyes: Present: PERRL, EOM intact - Neck Neck: Present: supple, normal ROM - Respiratory Respiratory effort: normal Respiratory: bilateral: diminished, negative: rales, rhonchi, wheezing - Cardiovascular Rhythm: regular Heart Sounds: Present: S1 & S2 - Extremities Extremities: no ischemia, No edema - Abdominal General gastrointestinal: soft, non-tender, non-distended, normal bowel sounds - Integumentary Integumentary: Present: clear, warm - Psychiatric Psychiatric: appropriate mood/affect, cooperative - Neurologic Neurologic: CNII-XII intact, moves all extremities Results - Labs CBC & Chem 7: 11/07/18 05:10 11/07/18 05:10 Labs: Laboratory Last Values WBC 4.2 K/mm3 (4.5-11.0) L 11/07/18 05:10 RBC 2.95 M/mm3 (3.65-5.03) L 11/07/18 05:10 Hgb 10.0 gm/dl (11.8-15.2) L 11/07/18 05:10 Hct 30.2 % (35.5-45.6) L 11/07/18 05:10 MCV 103 fl (84-94) H 11/07/18 05:10 MCH 34 pg (28-32) H 11/07/18 05:10 MCHC 33 % (32-34) 11/07/18 05:10 RDW 17.1 % (13.2-15.2) H 11/07/18 05:10 Plt Count 128 K/mm3 (140-440) L 11/07/18 05:10 Lymph % (Auto) 21.6 % (13.4-35.0) 11/07/18 05:10 C[place]ay % (Auto) 7.2 % (0.0-7.3) 11/07/18 05:10 Eos % (Auto) 4.0 % (0.0-4.3) 11/07/18 05:10 Baso % (Auto) 1.9 % (0.0-1.8) H 11/07/18 05:10 Lymph # 0.9 K/mm3 (1.2-5.4) L 11/07/18 05:10 [place]ay # 0.3 K/mm3 (0.0-0.8) 11/07/18 05:10 Eos # 0.2 K/mm3 (0.0-0.4) 11/07/18 05:10 Baso # 0.1 K/mm3 (0.0-0.1) 11/07/18 05:10 Seg Neutrophils % 65.3 % (40.0-70.0) 11/07/18 05:10 Seg Neutrophils # 2.7 K/mm3 (1.8-7.7) 11/07/18 05:10 Sodium 140 mmol/L (137-145) 11/07/18 05:10 Potassium 4.2 mmol/L (3.6-5.0) 11/07/18 05:10 Chloride 99.8 mmol/L (98-107) 11/07/18 05:10 Carbon Dioxide 25 mmol/L (22-30) 11/07/18 05:10 19 mmol/L 11/07/18 05:10 BUN 27 mg/dL (9-20) H 11/07/18 05:10 4.7 mg/dL (0.8-1.5) H 11/07/18 05:10 Estimated GFR 15 ml/min 11/07/18 05:10 6 % 11/07/18 05:10 Glucose 92 mg/dL (75-100) 11/07/18 05:10 POC Glucose 98 (70-105) 11/07/18 12:11 Calcium 8.6 mg/dL (8.4-10.2) 11/07/18 05:10 Magnesium 1.80 mg/dL (1.7-2.3) 11/07/18 05:10 0.30 mg/dL (0.1-1.2) 11/07/18 05:10 AST 64 units/L (5-40) H 11/07/18 05:10 ALT 34 units/L (7-56) 11/07/18 05:10 151 units/L (35-129) H 11/07/18 05:10 6.4 g/dL (6.3-8.2) 11/07/18 05:10 2.9 g/dL (3.9-5) L 11/07/18 05:10 0.8 % 11/07/18 05:10 Active Medications - Current Medications Current Medications: Generic Name Dose Route Start Last Admin Trade Name Freq PRN Reason Stop Dose Admin Acetaminophen 650 mg 11/06/18 01:48 Tylenol PO Q4H PRN Pain MILD(1-3)/Fever >100.5/DOUGLAS Albuterol 2.5 mg 11/06/18 03:18 Proventil IH Q4HRT PRN Shortness Of Breath Amlodipine Besylate 10 mg 11/06/18 01:57 11/06/18 09:35 Norvasc PO 10 mg QDAY BEAN Administration Apixaban 2.5 mg 11/06/18 10:00 11/07/18 11:34 Eliquis PO 2.5 mg Q12HR BEAN Administration Protocol Atorvastatin Calcium 40 mg 11/06/18 22:00 11/06/18 22:41 Lipitor PO 40 mg QHS BEAN Administration Dextrose 50 ml 11/06/18 04:35 D50w (25gm) Syringe IV PRN PRN Hypoglycemia Fluoxetine HCl 40 mg 11/07/18 10:00 11/07/18 11:29 Prozac PO 40 mg QDAY BEAN Administration Hydralazine HCl 20 mg 11/06/18 01:58 Apresoline IV Q4H PRN Blood Pressure Hydralazine HCl 50 mg 11/06/18 22:00 11/07/18 11:31 Apresoline PO 50 mg BID BEAN Administration Hydromorphone HCl 0.5 mg 11/06/18 01:48 11/07/18 15:48 Dilaudid IV 0.5 mg Q3H PRN Administration Pain , Severe (7-10) Sodium Chloride 100 mls @ 999 mls/hr 11/06/18 00:41 Nacl 0.9% IV KATERYNA PRN Hypotension Insulin Human Lispro 0 unit 11/06/18 07:30 11/07/18 11:30 Humalog SUB-Q Not Given ACHS [facility] Protocol Isosorbide Mononitrate 30 mg 11/07/18 10:00 Imdur PO QDAY BEAN Losartan Potassium 100 mg 11/06/18 01:57 11/07/18 11:31 Cozaar PO 100 mg QDAY BEAN Administration Metoprolol Succinate 50 mg 11/06/18 01:58 11/06/18 09:35 Toprol Xl PO 50 mg QDAY BEAN Administration Ondansetron HCl 4 mg 11/06/18 01:48 Zofran IV Q8H PRN Nausea And Vomiting Polyethylene Glycol 17 gm 11/06/18 19:16 Miralax 3350 PO QDAY PRN Constipation Sodium Chloride 10 ml 11/06/18 10:00 11/07/18 11:34 Sodium Chloride Flush Syringe 10 Ml IV 10 ml BID BEAN Administration Sodium Chloride 10 ml 11/06/18 01:48 Sodium Chloride Flush Syringe 10 Ml IV PRN PRN LINE FLUSH Nutrition/Malnutrition Assess - Dietary Evaluation Nutrition/Malnutrition Findings: Nutrition Notes Start: 11/06/18 15:53 Freq: Status: Active Protocol: Document 11/06/18 15:53 RM (Rec: 11/06/18 15:59 RM [id number]) Nutrition Notes Need for Assessment generated from: continuous improvement specialist Initial or Follow up Assessment Current Diagnosis COPD,Diabetes Other Pertinent Diagnosis ESRD on HD, diarrhea, Fluid overload, Abdominal pain Current Diet Renal Labs/Tests Reviewed Pertinent Medications Reviewed Height 5 ft 9 in Weight 50.8 kg [place] Body Weight (kg) 72.72 BMI 16.5 Subjective/Other Information Screened for malnutrition, new onset DM, and Low BMI. Pt stated that SALES ORDER CLERK his appetite was poor and that he ate 0-2 meals daily. Stated he has not had the chance to eat yet d/t having just come back from HD. Declined regular ONS d/t it causing him diarrhea. Unsure of dry wt. Declined DM diet education. Noted temporal wasting. Burn Absent Trauma Absent #1 Nutrition Diagnosis Malnutrition Etiology decreased appetite As Evidenced by Signs and Symptoms pt statement that SALES ORDER CLERK he ate 1 -2 meals daily, temporal wasting, BMI of 16.5 Is patient on ventilator? No Is Patient Ambulatory and/or Out of Bed No REE-([facility]-confined to bed) 1516.164 Kcal/Kg value to use for calculation 36 Approximate Energy Requirements Using 1829 kcal/Kg Calculation Used for Recommendations Kcal/kg Additional Notes Protein needs: 61-76g (1.2-1. 5g/kg) Fluid needs: 1 ml/kcal Nutrition Intervention Change Diet Order: Continue current Add Supplement/Snack (indicate name/kcal Ensure Clear BID /protein ) Provides kCal: 480 Provides Protein (gm) 16 Goal #1 Meet at least 75% of calorie and protein needs via PO and ONS intakes Anticipated Discharge Needs: Renal diet Follow-Up By: 11/13/18 Additional Comments Follow for PO and ONS intakes
[2018-11-07] MEDS: TOPROL XL PO SCH (19:02)
[2018-11-07] MEDS: IMDUR PO SCH (19:02)
[2018-11-07] MEDS: NORVASC PO SCH (19:03)
[2018-11-08] MEDS: DILAUDID IV PRN ×3 (02:26→09:27)
[2018-11-08] MEDS: PROzac PO SCH (09:28)
[2018-11-08] MEDS: ELIQUIS PO SCH (09:29)
--- NOTE | 2018-11-08 09:55 | Progress Note ---
Assessment and Plan 1. ESRD: Continue hemodialysis three times a week, TTS schedule. 2. Diarrhea: Resolved. 3. A.fib: Rate controlled. 4. DM type 2. 5. Chronic pleural effusion. 6. Anemia: Epogen if needed. 7. PAD. Subjective Date of service: 11/08/18 Interval history: Patient is feeling better. Objective - Vital Signs Vital signs: Vital Signs - 12hr 11/07/18 11/07/18 11/07/18 23:10 23:22 23:40 Temperature 98.6 F Pulse Rate 61 Respiratory 18 22 18 Rate Blood Pressure 127/91 O2 Sat by Pulse 98 Oximetry 11/08/18 11/08/18 11/08/18 02:26 02:56 04:16 Temperature 98.4 F Pulse Rate 78 Respiratory 18 18 19 Rate Blood Pressure 153/99 O2 Sat by Pulse 97 Oximetry 11/08/18 11/08/18 06:10 08:15 Temperature 97.5 F L Pulse Rate 68 Respiratory 18 16 Rate Blood Pressure 148/104 O2 Sat by Pulse 100 Oximetry - General Appearance General appearance: well-developed, appears stated age, other (not in distress, R IJ tunnel catheter) EENT: PERRL, other (L subconjunctival hemorrhage (POA)) Neck: supple Respiratory: Present: Clear to Ascultation Cardiology: irregularly irregular, S1S2, no murmurs Gastrointestinal: normoactive bowel sounds, no tenderness, no distended Integumentary: no rash, warm and dry Neurologic: no focal deficit, no asterixis, alert and oriented x3 Musculoskeletal: other (no edema, L arm below elbow amputation) - Lab 11/07/18 05:10 11/07/18 05:10 Most recent lab results Calcium 8.6 mg/dL (8.4-10.2) 11/07/18 05:10 Magnesium 1.80 mg/dL (1.7-2.3) 11/07/18 05:10 Medications & Allergies - Medications Allergies/Adverse Reactions: Allergies aspirin Allergy (Verified 03/16/17 01:25) Unknown stomach cramps pork derived (porcine) Allergy (Verified 03/16/17 01:27) Rash venom-honey bee [bee venom (honey bee)] Allergy (Verified 03/16/17 01:27) Anaphylaxis Pork/Porcine Containing Products Adverse Reaction (Severe, Verified 02/13/17 09:31) Nausea,VOMITING Home Medications: Home Medications Medication Instructions Recorded Confirmed Last Taken Type Acetaminophen [Acetaminophen TAB] 650 mg PO Q4H PRN tablet 05/05/18 11/06/18 09/21/18 Rx Apixaban [Eliquis] 2.5 mg PO Q12HR #60 tablet 09/05/18 11/06/18 09/21/18 Rx AtorvaSTATin [Lipitor] 40 mg PO QHS #30 tablet 09/05/18 11/06/18 09/21/18 Rx Epoetin Prashant 10,000 Unit [Procrit] 10,000 unit SUB-Q KATERYNA PRN #30 vial 09/05/18 11/06/18 09/21/18 Rx FLUoxetine HCL [Fluoxetine HCl] 40 mg PO QDAY #30 capsule 09/05/18 11/06/18 09/21/18 Rx Famotidine [Pepcid] 10 mg PO BID #15 tablet 09/05/18 11/06/18 09/21/18 Rx Fe Fumarate/FA/Mv, Min Comb#15 1 each PO QDAY #30 capsule 09/05/18 11/06/18 09/21/18 Rx [Hemocyte Plus] ISOSORBIDE MONOnitrate [Imdur ER] 30 mg PO QDAY #30 tablet 09/05/18 11/06/18 09/21/18 Rx Losartan [Cozaar] 100 mg PO QDAY 30 Days tablet 09/05/18 11/06/18 09/21/18 Rx Metoprolol Xl [Metoprolol 100 mg PO QDAY #30 tablet 09/05/18 11/06/18 09/21/18 Rx SUCCINATE ER TAB] Polyethylene Glycol 3350 [Miralax 17 gm PO QDAY PRN powd.pack 09/05/18 11/06/18 09/21/18 Rx 3350] Sennosides/Docusate [Senokot S] 1 tab PO BID tablet 09/05/18 11/06/18 09/21/18 Rx amLODIPine [Norvasc] 10 mg PO DAILY #30 tablet 09/05/18 11/06/18 09/21/18 Rx hydrALAZINE [Apresoline TAB] 50 mg PO BID 11/06/18 11/06/18 Unknown History Mag Hydrox/Aluminum Hyd/Simeth 355 ml PO DAILY PRN 15 Days 11/08/18 Unknown Rx [Maalox Advanced Suspension] oral.susp Active Medications: Generic Name Dose Route Start Last Admin Trade Name Freq PRN Reason Stop Dose Admin Acetaminophen 650 mg 11/06/18 01:48 Tylenol PO Q4H PRN Pain MILD(1-3)/Fever >100.5/DOUGLAS Albuterol 2.5 mg 11/06/18 03:18 Proventil IH Q4HRT PRN Shortness Of Breath Amlodipine Besylate 10 mg 11/06/18 01:57 11/07/18 19:03 Norvasc PO Not Given QDAY BEAN Apixaban 2.5 mg 11/06/18 10:00 11/08/18 09:29 Eliquis PO 2.5 mg Q12HR BEAN Administration Protocol Atorvastatin Calcium 40 mg 11/06/18 22:00 11/07/18 21:46 Lipitor PO 40 mg QHS BEAN Administration Dextrose 50 ml 11/06/18 04:35 D50w (25gm) Syringe IV PRN PRN Hypoglycemia Fluoxetine HCl 40 mg 11/07/18 10:00 11/08/18 09:28 Prozac PO 40 mg QDAY BEAN Administration Hydralazine HCl 20 mg 11/06/18 01:58 Apresoline IV Q4H PRN Blood Pressure Hydralazine HCl 50 mg 11/06/18 22:00 11/07/18 21:46 Apresoline PO 50 mg BID BEAN Administration Hydromorphone HCl 0.5 mg 11/06/18 01:48 11/08/18 09:27 Dilaudid IV 0.5 mg Q3H PRN Administration Pain , Severe (7-10) Sodium Chloride 100 mls @ 999 mls/hr 11/06/18 00:41 Nacl 0.9% IV KATERYNA PRN Hypotension Insulin Human Lispro 0 unit 11/06/18 07:30 11/07/18 21:47 Humalog SUB-Q Not Given ACHS [facility] Protocol Isosorbide Mononitrate 30 mg 11/07/18 10:00 11/07/18 19:02 Imdur PO Not Given QDAY BEAN Losartan Potassium 100 mg 11/06/18 01:57 11/07/18 11:31 Cozaar PO 100 mg QDAY BEAN Administration Metoprolol Succinate 50 mg 11/06/18 01:58 11/07/18 19:02 Toprol Xl PO Not Given QDAY BEAN Ondansetron HCl 4 mg 11/06/18 01:48 Zofran IV Q8H PRN Nausea And Vomiting Polyethylene Glycol 17 gm 11/06/18 19:16 Miralax 3350 PO QDAY PRN Constipation Sodium Chloride 10 ml 11/06/18 10:00 11/07/18 21:47 Sodium Chloride Flush Syringe 10 Ml IV 10 ml BID BEAN Administration Sodium Chloride 10 ml 11/06/18 01:48 Sodium Chloride Flush Syringe 10 Ml IV PRN PRN LINE FLUSH
[2018-11-08] MEDS ORDERED: BENADRYL PO NR (11:30)
[2018-11-08] MEDS: TOPROL XL PO SCH (14:24)
[2018-11-08] MEDS: APRESOLINE PO SCH (14:25)
[2018-11-08] MEDS: COZAAR PO SCH (14:25)
[2018-11-08] MEDS: NORVASC PO SCH (14:26)
[2018-11-08] MEDS: IMDUR PO SCH (14:26)
[2018-11-08] MEDS: SODIUM CHLORIDE FLUSH SYRINGE 10 ML IV SCH (14:27)
--- NOTE | 2018-11-08 14:46 | Discharge Summary ---
Providers - Providers Date of Admission: 11/06/18 04:27 Date of discharge: 11/08/18 Attending physician: MIKA VERDE 11/06/18 07:07 Consult to Wound/ET Nurse [CONS] Routine Reason For Exam: wound eval Primary care physician: ARSLAN PIMENTEL Hospitalization Reason for admission: Diarrhea and shortness of breath Condition: Stable Pertinent studies: ct abdomen and pelvis CXR Hospital course: Patient is a 71 year old -[place] male with history of end-stage renal disease on hemodialysis was admitted through ED with history of diarrhea. He stated that he has had 8 episodes of diarrhea generalized weakness. He also c/o history of shortness of breath on mild exertion. noted to have uncontrolled hypertension. Managed with appropriate management,Renal evaluated HD per schedule. 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% No diuretic since patient does not make urine Hemodialysis per schedule --Hypertensive urgency; blood pressures moderate control Continue antihypertensives, when necessary medications --Fluid overload in ESRD on HD, nephrology following --Chronic atrial fibrillation; rate controlled Continue beta blockers ,anticoagulation with Eliquis --DM2 with hypoglycemia; close monitoring of blood sugars --History of COPD; well compensated Continue oxygen and DuoNeb's , supportive care --The left forearm s/p vascular procedure Surgical clips and wound clean, continue wound care --Chronic hypoxic respiratory failure on home oxygen 2 L Stable --Left subconjunctival hemorrhage improved; Disposition: Possible discharge tomorrow if stable Plan of care is reviewed with the patient and his nurse Consults noted no appreciated Disposition: [id number] TO HOME OR SELFCARE Time spent for discharge: 32 min Core Measure Documentation - Palliative Care Palliative Care/ Comfort Measures: Not Applicable - Core Measures Any of the following diagnoses?: none Exam - Constitutional Vitals: Temp Pulse Resp BP Pulse Ox 98.3 F 71 18 150/110 100 11/08/18 10:20 11/08/18 14:26 11/08/18 10:20 11/08/18 14:26 11/08/18 08:15 General appearance: Present: no acute distress, well-nourished - EENT Eyes: Present: PERRL, EOM intact - Neck Neck: Present: supple, normal ROM - Respiratory Respiratory effort: normal Respiratory: bilateral: diminished, negative: rales, rhonchi, wheezing - Cardiovascular Rhythm: regular Heart Sounds: Present: S1 & S2 - Extremities Extremities: no ischemia, No edema - Abdominal General gastrointestinal: Present: soft, non-tender, non-distended, normal bowel sounds - Integumentary Integumentary: Present: clear, warm - Musculoskeletal Musculoskeletal: strength equal bilaterally - Psychiatric Psychiatric: appropriate mood/affect, cooperative - Neurologic Neurologic: moves all extremities Plan Activity: advance as tolerated, fall precautions Diet: renal, other (cardiac diet) Additional Instructions: f/u renal ,Hemodialysis per schedule TTS. Follow private peanut separator per schedule Follow up with: ARSLAN PIMENTEL MD [Primary Care Provider] - 7 Days LYRIC DIAMOND MD [Staff Physician] - 7 Days Prescriptions: Mag Hydrox/Aluminum Hyd/Simeth [Maalox Advanced Suspension] 355 ml PO DAILY PRN 15 Days oral.susp PRN Reason: Dyspepsia
[2018-11-08] MEDS ORDERED: NACL 0.9 (PRIMING MACHINE ONLY DIALYSIS) MC ONE (14:57)
[2018-11-08 17:53] VITALS: BP 142/101
== END 2018-11-08 19:48 | disposition home or self-care (01) | DRG 291 ==
LOC: EDBD → ED 21:47 → 4A 11-06 04:27
PROVIDERS: ADMIT Internal Medicine; ATTEND Internal Medicine
PROC: 5A1D70Z Performance of Urinary Filtration, Intermittent, Less than 6 Hours Per Day (ICD-10-PCS; principal; 2018-11-06)
PROC: 5A1D70Z Performance of Urinary Filtration, Intermittent, Less than 6 Hours Per Day (ICD-10-PCS; 2018-11-08)
DX: I13.2 Hypertensive heart and chronic kidney disease with heart failure and with stage 5 chronic kidney disease, or end stage renal disease (principal); I50.43 Acute on chronic combined systolic (congestive) and diastolic (congestive) heart failure; N18.6 End stage renal disease; I16.0 Hypertensive urgency; E11.649 Type 2 diabetes mellitus with hypoglycemia without coma; H11.32 Conjunctival hemorrhage, left eye; I48.2 Chronic atrial fibrillation; E11.22 Type 2 diabetes mellitus with diabetic chronic kidney disease; J44.9 Chronic obstructive pulmonary disease, unspecified; E11.51 Type 2 diabetes mellitus with diabetic peripheral angiopathy without gangrene; J96.11 Chronic respiratory failure with hypoxia; D64.9 Anemia, unspecified; M19.90 Unspecified osteoarthritis, unspecified site; Z86.718 Personal history of other venous thrombosis and embolism; Z89.212 Acquired absence of left upper limb below elbow; Z87.891 Personal history of nicotine dependence; Z88.6 Allergy status to analgesic agent; Z91.030 Bee allergy status; Z79.899 Other long term (current) drug therapy; Z79.01 Long term (current) use of anticoagulants
CPT/HCPCS: 36415; 71045; 74176; 80048; 80053; 82271; 82962; 83735; 85025; 93005; 93010; G0378; A9270-GY; J1170; J7030

== ENCOUNTER 2018-11-19 23:41 | Inpatient (IN) | payer MEDICAID ==
[2018-11-19] MEDS ORDERED: CARDIZEM/D5W 100MG/100ML 100 MG/100 ML BAG IV SCH (23:45)
[2018-11-19] MEDS ORDERED: SOLU-Medrol IV ONE (23:51)
[2018-11-19] MEDS ORDERED: ATROVENT IH ONE (23:51)
[2018-11-19] MEDS ORDERED: XOPENEX IH ONE (23:51)
[2018-11-19] MEDS ORDERED: ZOFRAN IV ONE (23:53)
[2018-11-19] MEDS ORDERED: MORPHINE IV ONE (23:53)
--- NOTE | 2018-11-19 23:56 | Emergency Department Report ---
ED Shortness of Breath HPI - General Stated Complaint: CHEST PAIN Time Seen by Provider: 11/19/18 23:45 Source: patient, EMS Mode of arrival: Stretcher Limitations: No Limitations - History of Present Illness Initial Comments: 71-year-old male with a past medical history of CHF with EF of 10-15%, hypertension, end-stage renal disease on dialysis Monday, , and Monday, chronic atrial fibrillation anticoagulated on Eliquis, COPD with 2 L O2 oxygen dependence and recent left forearm vascular procedure with surgical clips still in place presents to the hospital complains of shortness of breath since waking up 14 hours ago. Patient states he was short of breath with wheezing. Symptoms are lying supine did not significantly improve with sitting up. He uses home nebulizer treatments without any improvement. This complains of constant left-sided chest pain throughout the day. Pain is worse with palpation. No complaints of cough and fever. Patient is compliant with his dialysis. His medical records were reviewed. Patient was just admitted here November 09 until 11/08/2018 for diarrhea and volume overload.. - Related Data Home Medications Medication Instructions Recorded Confirmed Last Taken hydrALAZINE [Apresoline TAB] 50 mg PO BID 11/06/18 11/06/18 Unknown Previous Rx's Medication Instructions Recorded Last Taken Type Acetaminophen [Acetaminophen TAB] 650 mg PO Q4H PRN tablet 05/05/18 09/21/18 Rx Apixaban [Eliquis] 2.5 mg PO Q12HR #60 tablet 09/05/18 09/21/18 Rx AtorvaSTATin [Lipitor] 40 mg PO QHS #30 tablet 09/05/18 09/21/18 Rx Epoetin Prashant 10,000 Unit [Procrit] 10,000 unit SUB-Q KATERYNA PRN #30 vial 09/05/18 09/21/18 Rx FLUoxetine HCL [Fluoxetine HCl] 40 mg PO QDAY #30 capsule 09/05/18 09/21/18 Rx Famotidine [Pepcid] 10 mg PO BID #15 tablet 09/05/18 09/21/18 Rx Fe Fumarate/FA/Mv, Min Comb#15 1 each PO QDAY #30 capsule 09/05/18 09/21/18 Rx [Hemocyte Plus] ISOSORBIDE MONOnitrate [Imdur ER] 30 mg PO QDAY #30 tablet 09/05/18 09/21/18 Rx Losartan [Cozaar] 100 mg PO QDAY 30 Days tablet 09/05/18 09/21/18 Rx Metoprolol Xl [Metoprolol 100 mg PO QDAY #30 tablet 09/05/18 09/21/18 Rx SUCCINATE ER TAB] Polyethylene Glycol 3350 [Miralax 17 gm PO QDAY PRN powd.pack 09/05/18 09/21/18 Rx 3350] Sennosides/Docusate [Senokot S] 1 tab PO BID tablet 09/05/18 09/21/18 Rx amLODIPine [Norvasc] 10 mg PO DAILY #30 tablet 09/05/18 09/21/18 Rx Mag Hydrox/Aluminum Hyd/Simeth 355 ml PO DAILY PRN 15 Days 11/08/18 Unknown Rx [Maalox Advanced Suspension] oral.susp Allergies Allergy/AdvReac Type Severity Reaction Status Date / Time aspirin Allergy Unknown Verified 03/16/17 01:25 pork derived (porcine) Allergy Rash Verified 03/16/17 01:27 venom-honey bee Allergy Anaphylaxis Verified 03/16/17 01:27 [bee venom (honey bee)] Pork/Porcine Containing AdvReac Severe Nausea,VOMI Verified 02/13/17 09:31 Products TING ED Review of Systems ROS: Stated complaint: CHEST PAIN Other details as noted in HPI Comment: All other systems reviewed and negative ED Past Medical Hx - Past Medical History Hx Hypertension: Yes Hx Heart Attack/AMI: No Hx Congestive Heart Failure: Yes Hx Diabetes: Yes Hx Deep Vein Thrombosis: Yes Hx Renal Disease: No Hx Arthritis: Yes Hx Kidney Stones: No Hx Psychiatric Treatment: Yes (PTSD) Hx Asthma: No Hx COPD: Yes (Pt is on Home O2 2L/NC.) Additional medical history: 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 abd surgery after war related ingury partial "stomach removal' - Social History Smoking Status: Former Smoker - Medications Home Medications: Home Medications Medication Instructions Recorded Confirmed Last Taken Type Acetaminophen [Acetaminophen TAB] 650 mg PO Q4H PRN tablet 05/05/18 11/06/18 09/21/18 Rx Apixaban [Eliquis] 2.5 mg PO Q12HR #60 tablet 09/05/18 11/06/18 09/21/18 Rx AtorvaSTATin [Lipitor] 40 mg PO QHS #30 tablet 09/05/18 11/06/18 09/21/18 Rx Epoetin Prashant 10,000 Unit [Procrit] 10,000 unit SUB-Q KATERYNA PRN #30 vial 09/05/18 11/06/18 09/21/18 Rx FLUoxetine HCL [Fluoxetine HCl] 40 mg PO QDAY #30 capsule 09/05/18 11/06/18 09/21/18 Rx Famotidine [Pepcid] 10 mg PO BID #15 tablet 09/05/18 11/06/18 09/21/18 Rx Fe Fumarate/FA/Mv, Min Comb#15 1 each PO QDAY #30 capsule 09/05/18 11/06/18 09/21/18 Rx [Hemocyte Plus] ISOSORBIDE MONOnitrate [Imdur ER] 30 mg PO QDAY #30 tablet 09/05/18 11/06/18 09/21/18 Rx Losartan [Cozaar] 100 mg PO QDAY 30 Days tablet 09/05/18 11/06/18 09/21/18 Rx Metoprolol Xl [Metoprolol 100 mg PO QDAY #30 tablet 09/05/18 11/06/18 09/21/18 Rx SUCCINATE ER TAB] Polyethylene Glycol 3350 [Miralax 17 gm PO QDAY PRN powd.pack 09/05/18 11/06/18 09/21/18 Rx 3350] Sennosides/Docusate [Senokot S] 1 tab PO BID tablet 09/05/18 11/06/18 09/21/18 Rx amLODIPine [Norvasc] 10 mg PO DAILY #30 tablet 09/05/18 11/06/18 09/21/18 Rx hydrALAZINE [Apresoline TAB] 50 mg PO BID 11/06/18 11/06/18 Unknown History Mag Hydrox/Aluminum Hyd/Simeth 355 ml PO DAILY PRN 15 Days 11/08/18 Unknown Rx [Maalox Advanced Suspension] oral.susp ED Physical Exam - Other Other exam information: General: No limitations, patient is alert in no acute distress Head exam: Atraumatic, normocephalic Eyes exam: Normal appearance, residual subconjunctival hemorrhage ENT: Moist mucous membrane, normal oropharynx Neck exam: Normal inspection, full range of motion, no meningismus nontender Respiratory exam: Diminished breath sounds bilaterally with mild expiratory wheezing. No accessory muscle use Cardiovascular: Irregular rhythm and tachycardiac. left chest wall tenderness. Abdomen: Soft, nondistended, and nontender, with normal bowel sounds, no rebound, or guarding Extremity: Left arm partial amputation, surgical clips from recent vascular procedure. No lower extremity edema, calf tenderness or leg asymmetry Back: Normal Inspection Neurologic: Alert, oriented x3, cranial nerves intact, no motor or sensory deficit Psychiatric: normal affect, normal mood Skin: Warm, dry, intact ED Course Vital Signs 11/19/18 11/20/18 11/20/18 23:58 00:56 00:57 Temperature 98.2 F Pulse Rate 112 H 125 H Respiratory 24 21 Rate Blood Pressure 153/119 Blood Pressure 162/111 [Right] O2 Sat by Pulse 97 97 Oximetry - Consultations Consultation #1: 11/20/18 01:[address] Nicole. Will plan for dialysis in am ED Medical Decision Making - Lab Data Result diagrams: 11/20/18 00:17 11/20/18 00:17 Lab Results 11/20/18 11/20/18 11/20/18 Range/Units 00:17 00:17 00:17 WBC 5.0 (4.5-11.0) K/mm3 RBC 3.04 L (3.65-5.03) M/mm3 Hgb 10.0 L (11.8-15.2) gm/dl Hct 30.4 L (35.5-45.6) % MCV 100 H (84-94) fl MCH 33 H (28-32) pg MCHC 33 (32-34) % RDW 15.5 H (13.2-15.2) % Plt Count 106 L (140-440) K/mm3 Lymph % (Auto) 19.5 (13.4-35.0) % [place] % (Auto) 9.8 H (0.0-7.3) % Eos % (Auto) 1.2 (0.0-4.3) % Baso % (Auto) 1.5 (0.0-1.8) % Lymph # 1.0 L (1.2-5.4) K/mm3 [place] # 0.5 (0.0-0.8) K/mm3 Eos # 0.1 (0.0-0.4) K/mm3 Baso # 0.1 (0.0-0.1) K/mm3 Seg Neutrophils % 68.0 (40.0-70.0) % Seg Neutrophils # 3.4 (1.8-7.7) K/mm3 PT 19.0 H (12.2-14.9) Sec. INR 1.49 H (0.87-1.13) APTT 36.1 (24.2-36.6) Sec. Sodium 135 L (137-145) mmol/L Potassium 6.3 H* (3.6-5.0) mmol/L Chloride 96.9 L (98-107) mmol/L Carbon Dioxide 21 L (22-30) mmol/L Anion Gap 23 mmol/L BUN 54 H (9-20) mg/dL Creatinine 8.3 H (0.8-1.5) mg/dL Estimated GFR 8 ml/min BUN/Creatinine Ratio 7 % Glucose 86 (75-100) mg/dL Calcium 9.0 (8.4-10.2) mg/dL Troponin T 0.258 H* (0.00-0.029) ng/mL - EKG Data -: EKG Interpreted by Me (afib) EKG shows normal: axis (qrs -59), QRS complexes (qrsd 109), ST-T waves (no stemi,) - Radiology Data Radiology results: report reviewed PROCEDURE: XR CHEST 1V AP TECHNIQUE: Chest radiograph single view. HISTORY: Chest Pain COMPARISONS: 11/05/2018 . FINDINGS: Heart: The heart is enlarged. Mediastinum/Vessels: Normal. Lungs/Pleural space: There are bilateral lower lobe infiltrates and effusions greater on the left. There is no pneumothorax.. Bony thorax: No acute osseous abnormality. Life support devices: There is a right-sided central venous catheter. The tip is in the right atrium of the heart.. IMPRESSION: The heart is enlarged. There are bilateral lower lobe infiltrates and effusions greater on the left. There is no pneumothorax.. There is a right-sided central venous catheter. The tip is in the right atrium of the heart... - Medical Decision Making The patient has shortness of breath with wheezing. Patient treated with nebs and Solu-Medrol for COPD exacerbation. X-ray also has pleural effusions. Patient chronically has profuse on chest x-ray. His potassium is elevated. Ca se was discussed with nephrology. Meds order for hyperkalemia with plan to perform dialysis in the morning. There are no peaked T waves on EKG. Patient has reproducible left-sided chest wall tenderness with baseline elevation in troponin. No signs of ST elevation SD. Chronic A. fib noted slightly tachycardic. Cardizem was initiated. Hospitalist informed for admission. - Differential Diagnosis COPD, pneumonia, CHF, volume overload, SD Critical Care Time: No Critical care attestation.: If time is entered above; I have spent that time in minutes in the direct care of this critically ill patient, excluding procedure time. ED Disposition Clinical Impression: Atrial fibrillation with rapid ventricular response, Acute CHF (congestive heart failure), Pleural effusion, ESRD needing dialysis, Anticoagulant long-term use, Acute chest pain, Elevated troponin I level, COPD exacerbation, Hyperkalemia, Thrombocytopenia, HTN (hypertension) Disposition: -09 OP ADMIT IP TO THIS HOSP Is pt being admited?: Yes Condition: Stable Instructions: Chest Pain (ED), Hypertension (ED) Time of Disposition: 01:20 (DR Saez/hosp)
[2018-11-20 00:30] LABS: Basophils # (Auto) 0.1 K/mm3 (0.0-0.1); Basophils % (Auto) 1.5 % (0.0-1.8); Eosinophils # (Auto) 0.1 K/mm3 (0.0-0.4); Eosinophils % (Auto) 1.2 % (0.0-4.3); Hematocrit 30.4 % (35.5-45.6); Lymphocytes % (Auto) 19.5 % (13.4-35.0); Mean Corpuscular HGB Conc 33 % (32-34); Mean Corpuscular Volume 100 fl (84-94); Monocytes # (Auto) 0.5 K/mm3 (0.0-0.8); Monocytes % (Auto) 9.8 % (0.0-7.3); Platelet Count 106 K/mm3 (140-440); Red Blood Count 3.04 M/mm3 (3.65-5.03); Red Cell Distribution Width 15.5 % (13.2-15.2)
--- NOTE | 2018-11-20 00:40 | XRay Report ---
PROCEDURE: XR CHEST 1V AP TECHNIQUE: Chest radiograph single view. HISTORY: Chest Pain COMPARISONS: 11/05/2018 . FINDINGS: Heart: The heart is enlarged. Mediastinum/Vessels: Normal. Lungs/Pleural space: There are bilateral lower lobe infiltrates and effusions greater on the left. T here is no pneumothorax.. Bony thorax: No acute osseous abnormality. Life support devices: There is a right-sided central venous catheter. The tip is in the right atrium of the heart.. IMPRESSION: The heart is enlarged. There are bilateral lower lobe infiltrates and effusions greater on the left. There is no pneumothora x.. There is a right-sided central venous catheter. The tip is in the right atrium of the heart... This document is electronically signed by Carlos Skinner MD., November 20 2018 01:38:35 AM ET
[2018-11-20 00:44] LABS: INR 1.49 (0.87-1.13)
[2018-11-20 00:45] LABS: Partial Thromboplastin Time 36.1 Sec. (24.2-36.6)
[2018-11-20 00:53] LABS: BUN/Creatinine Ratio 7; Blood Urea Nitrogen 54 mg/dL (9-20); Hemolysis Index 10
[2018-11-20] MEDS ORDERED: HumuLIN R IV ONE (01:15)
[2018-11-20] MEDS ORDERED: D50W (25GM) Syringe IV ONE (01:15)
[2018-11-20] MEDS ORDERED: KIONEX PO ONE (01:25)
[2018-11-20 02:02] LABS: Chol/HDL Ratio 1.88 %; HDL Cholesterol 50 mg/dL (40-59); LDL Cholesterol,Direct 32 mg/dL (50-130)
[2018-11-20] MEDS ORDERED: TYLENOL PO PRN (02:09)
[2018-11-20] MEDS ORDERED: ZOFRAN IV PRN (02:09)
--- NOTE | 2018-11-20 02:14 | History and Physical Report ---
History of Present Illness Date of examination: 11/20/18 History of present illness: 71-year-old man with a history of end-stage renal disease on dialysis, hypertension, CHF, A. fib, coronary artery disease, PTSD comes emergency room with complaints of shortness of breath, wheezing since 8:00 yesterday morning, relief with nebulizer treatments.. Also complain of chest pain. Pain is in the left chest which he describes as sharp pain, constant, intensity 5/10, no radiation , cannot identify exacerbating factors, relieved with pain medication in the emergency room. Denies nausea vomiting, shortness of breath, + d iaphoresis, + palpitation. He was found to be in A. fib with RVR in the field, started on a Cardizem drip in the emergency room Review of systems Constitutional: no weight loss, chills, fever Ears, eyes, nose, mouth and throat: no nasal congestion, no nasal discharge, no sinus pressure, no vision change, no red eye. Neck: No neck pain or rigidity. Cardiovascular: no palpitations Respiratory: no cough, shortness of breath Gastrointestinal: no hematochezia, abdominal pain Genitourinary : no frequency , no hematuria Musculoskeletal: no joint swelling or muscle ache Integumentary: no rash, no pruritis Neurological: no parathesias, no focal weakness Endocrine: no cold or heat intolerance, no polyuria or polydipsia Hematologic/Lymphatic: no easy bruising, no easy bleeding, no gland swelling Allergic/Immunologic: no urticaria, no angioedema. PAST MEDICAL HISTORY: end-stage renal disease on dialysis, hypertension, CHF, A. fib PAST SURGICAL HISTORY: clot removal in left upper extremity left arm amputation, multiple fingers amputation, AV fistula, neck and back surgery SOCIAL HISTORY: Denies alcohol, drugs, tobacco FAMILY HISTORY: Hypertension Medications and Allergies Allergies Allergy/AdvReac Type Severity Reaction Status Date / Time aspirin Allergy Unknown Verified 03/16/17 01:25 pork derived (porcine) Allergy Rash Verified 03/16/17 01:27 venom-honey bee Allergy Anaphylaxis Verified 03/16/17 01:27 [bee venom (honey bee)] Pork/Porcine Containing AdvReac Severe Nausea,VOMI Verified 02/13/17 09:31 Products TING Home Medications Medication Instructions Recorded Confirmed Last Taken Type Acetaminophen [Acetaminophen TAB] 650 mg PO Q4H PRN tablet 05/05/18 11/20/18 09/21/18 Rx Apixaban [Eliquis] 2.5 mg PO Q12HR #60 tablet 09/05/18 11/20/18 09/21/18 Rx AtorvaSTATin [Lipitor] 40 mg PO QHS #30 tablet 09/05/18 11/20/18 09/21/18 Rx Epoetin Prashant 10,000 Unit [Procrit] 10,000 unit SUB-Q KATERYNA PRN #30 vial 09/05/18 11/20/18 09/21/18 Rx FLUoxetine HCL [Fluoxetine HCl] 40 mg PO QDAY #30 capsule 09/05/18 11/20/18 09/21/18 Rx Famotidine [Pepcid] 10 mg PO BID #15 tablet 09/05/18 11/20/18 09/21/18 Rx Fe Fumarate/FA/Mv, Min Comb#15 1 each PO QDAY #30 capsule 09/05/18 11/20/18 09/21/18 Rx [Hemocyte Plus] ISOSORBIDE MONOnitrate [Imdur ER] 30 mg PO QDAY #30 tablet 09/05/18 11/20/18 09/21/18 Rx Losartan [Cozaar] 100 mg PO QDAY 30 Days tablet 09/05/18 11/20/18 09/21/18 Rx Metoprolol Xl [Metoprolol 100 mg PO QDAY #30 tablet 09/05/18 11/20/18 09/21/18 Rx SUCCINATE ER TAB] Polyethylene Glycol 3350 [Miralax 17 gm PO QDAY PRN powd.pack 09/05/18 11/20/18 09/21/18 Rx 3350] Sennosides/Docusate [Senokot S] 1 tab PO BID tablet 09/05/18 11/20/18 09/21/18 Rx amLODIPine [Norvasc] 10 mg PO DAILY #30 tablet 09/05/18 11/20/18 09/21/18 Rx hydrALAZINE [Apresoline TAB] 50 mg PO BID 11/06/18 11/20/18 Unknown History Mag Hydrox/Aluminum Hyd/Simeth 355 ml PO DAILY PRN 15 Days 11/08/18 11/20/18 Unknown Rx [Maalox Advanced Suspension] oral.susp Active Meds: Active Medications Acetaminophen (Tylenol) 650 mg PO Q4H PRN PRN Reason: Pain MILD(1-3)/Fever >100.5/DOUGLAS Albuterol/Ipratropium (Duoneb *Not For Prn Use*) 1 ampul IH Q6HRT BEAN Diltiazem HCl (Cardizem/D5w 100mg/100ml) 100 mg in 100 mls @ 5 mls/hr IV TITR BEAN; Protocol Last Titration: 11/20/18 01:27 Dose: 10 mg/hr, 10 mls/hr Documented by: Methylprednisolone Sodium Succinate (Solu-Medrol) 80 mg IV Q6HR BEAN Ondansetron HCl (Zofran) 4 mg IV Q8H PRN PRN Reason: Nausea And Vomiting Sodium Chloride (Sodium Chloride Flush Syringe 10 Ml) 10 ml IV BID BEAN Sodium Chloride (Sodium Chloride Flush Syringe 10 Ml) 10 ml IV PRN PRN PRN Reason: LINE FLUSH Exam - Physical Exam Narrative exam: General Apperance: The patient lying in bed, breathing comfortable HEENT: Normocephalic, atraumatic. Pupils equally round and reactive to light, EOMI, Left subconjunctival hemorrhage no sclericterus or JVD or thyromegaly or nodule. , no carotid bruit, mucous membranes moist, no exudate or erythema Heart: S1-S2, regular is rhythm Lungs: Decreased breath, wheezing sounds bilaterally, breathing comfortable Abdomen: Positive bowel sounds, soft, nontender, nondistended, no organomegaly Extremities: amputation of the left forearm, No edema cyanosis clubbing Skin: no rash, nodule, warm and dry Neuro: cranial nerves 2-12 intact, speech is fluent, motor/sensory intact - Constitutional Vitals: Temp Pulse Resp BP Pulse Ox 98.2 F 89 18 153/119 97 11/19/18 23:58 11/20/18 01:10 11/20/18 01:10 11/20/18 00:56 11/20/18 00:57 Results - Labs CBC & Chem 7: 11/21/18 08:18 11/22/18 08:32 Labs: Abnormal lab results 11/20/18 11/20/18 11/20/18 Range/Units 00:17 00:17 00:17 RBC 3.04 L (3.65-5.03) M/mm3 Hgb 10.0 L (11.8-15.2) gm/dl Hct 30.4 L (35.5-45.6) % MCV 100 H (84-94) fl MCH 33 H (28-32) pg RDW 15.5 H (13.2-15.2) % Plt Count 106 L (140-440) K/mm3 [place] % (Auto) 9.8 H (0.0-7.3) % Lymph # 1.0 L (1.2-5.4) K/mm3 PT 19.0 H (12.2-14.9) Sec. INR 1.49 H (0.87-1.13) Sodium 135 L (137-145) mmol/L Potassium 6.3 H* (3.6-5.0) mmol/L Chloride 96.9 L (98-107) mmol/L Carbon Dioxide 21 L (22-30) mmol/L BUN 54 H (9-20) mg/dL Creatinine 8.3 H (0.8-1.5) mg/dL Troponin T 0.258 H* (0.00-0.029) ng/mL NT-Pro-B Natriuret Pep > 21352 H (0-900) pg/mL LDL Cholesterol Direct 32 L (50-130) mg/dL - Imaging and Cardiology EKG: image reviewed Chest x-ray: report reviewed Assessment and Plan Assessment A. fib with rvr pneumonia Chest pain Chronically elevated troponin Coronary artery disease CHF, Chronic, systolic Hypertension End-stage renal disease on dialysis PTSD Left subconjunctival hemorrhage Thrombocytopenia Plan Admit to medicine Megan wood drip check cardiac enzymes, consult cardiology Consult renal for dialysis, start levaquin patient recently treated forn pneumonia Continue appropriate outpatient medications DVT prophylaxis, monitor subconjunctival hemorrhage
[2018-11-20] MEDS ORDERED: PERCOCET 5/325 ONE (03:23)
[2018-11-20 03:24] LABS: Basophils % (Auto) 0.5 % (0.0-1.8); Eosinophils % (Auto) 0.3 % (0.0-4.3); Hemoglobin 10.5 gm/dl (11.8-15.2); Lymphocytes # (Auto) 0.6 K/mm3 (1.2-5.4); Lymphocytes % (Auto) 14.9 % (13.4-35.0); Mean Corpuscular HGB Conc 33 % (32-34); Mean Corpuscular Volume 101 fl (84-94); Monocytes # (Auto) 0.2 K/mm3 (0.0-0.8); Red Blood Count 3.16 M/mm3 (3.65-5.03); Red Cell Distribution Width 15.5 % (13.2-15.2)
[2018-11-20] MEDS ORDERED: PERCOCET 5/325 PO ONE (03:35)
[2018-11-20 03:47] LABS: Creatine Kinase MB 3.4 ng/mL (0.0-4.0)
[2018-11-20 03:50] LABS: Calcium 8.8 mg/dL (8.4-10.2)
[2018-11-20 03:57] LABS: Platelet Count 95 K/mm3 (140-440)
[2018-11-20] MEDS ORDERED: SOLU-Medrol IV SCH (06:00)
[2018-11-20] MEDS ORDERED: MIRALAX 3350 PO PRN (06:34)
[2018-11-20] MEDS ORDERED: DUONEB *Not for PRN Use IH SCH (08:00)
[2018-11-20] MEDS ORDERED: NACL 0.9% 100 ML IV PRN (09:19)
--- NOTE | 2018-11-20 09:20 | Consultation ---
History of Present Illness - Reason for Consult Consult date: 11/20/18 end stage renal disease, hyperkalemia - History of Present Illness The patient is a 71 YO male who is known to our service with history significant for DM type 2, HTN, Chronic A.fib, CAD, CHF, PTSD, PAD s/p left forearm ampu tation, chronic L pleural effusion (Transudate) and ESRD on hemodialysis (TTS) who presented to [facility] ED with c/o shortness of breath, wheezing and L sided chest pain. Pain was sharp, constant, intensity 5/10 and no radiation. He denies any N, V, fever, chills, diaphoresis, leg swelling, dizziness or syncope. He was found to be in A. fib with RVR in the field, started on Cardizem drip in the emergency room. Patient was admitted in the ICU. He was last dialyzed 3 days ago. Potassium level was 6.3 in the ED. Nephrology was consulted for ESRD and hyperkalemia management. Past History Past Medical History: atrial fib, anemia, diabetes, dialysis, ESRD, heart failure, hypertension, hyperlipidemia, other (L pleural effusion) Medications and Allergies Allergies Allergy/AdvReac Type Severity Reaction Status Date / Time aspirin Allergy Unknown Verified 03/16/17 01:25 pork derived (porcine) Allergy Rash Verified 03/16/17 01:27 venom-honey bee Allergy Anaphylaxis Verified 03/16/17 01:27 [bee venom (honey bee)] Pork/Porcine Containing AdvReac Severe Nausea,VOMI Verified 02/13/17 09:31 Products TING Home Medications Medication Instructions Recorded Confirmed Last Taken Type Acetaminophen [Acetaminophen TAB] 650 mg PO Q4H PRN tablet 05/05/18 11/20/18 09/21/18 Rx Apixaban [Eliquis] 2.5 mg PO Q12HR #60 tablet 09/05/18 11/20/18 09/21/18 Rx AtorvaSTATin [Lipitor] 40 mg PO QHS #30 tablet 09/05/18 11/20/18 09/21/18 Rx Epoetin Prashant 10,000 Unit [Procrit] 10,000 unit SUB-Q KATERYNA PRN #30 vial 09/05/18 11/20/18 09/21/18 Rx FLUoxetine HCL [Fluoxetine HCl] 40 mg PO QDAY #30 capsule 0311/20/18 09/21/18 Rx Famotidine [Pepcid] 10 mg PO BID #15 tablet 09/05/18 11/20/18 09/21/18 Rx Fe Fumarate/FA/Mv, Min Comb#15 1 each PO QDAY #30 capsule 09/05/18 11/20/18 09/21/18 Rx [Hemocyte Plus] ISOSORBIDE MONOnitrate [Imdur ER] 30 mg PO QDAY #30 tablet 09/05/18 11/20/18 09/21/18 Rx Losartan [Cozaar] 100 mg PO QDAY 30 Days tablet 09/05/18 11/20/18 09/21/18 Rx Metoprolol Xl [Metoprolol 100 mg PO QDAY #30 tablet 09/05/18 11/20/18 09/21/18 Rx SUCCINATE ER TAB] Polyethylene Glycol 3350 [Miralax 17 gm PO QDAY PRN powd.pack 09/05/18 11/20/18 09/21/18 Rx 3350] Sennosides/Docusate [Senokot S] 1 tab PO BID tablet 09/05/18 11/20/18 09/21/18 Rx amLODIPine [Norvasc] 10 mg PO DAILY #30 tablet 09/05/18 11/20/18 09/21/18 Rx hydrALAZINE [Apresoline TAB] 50 mg PO BID 11/06/18 11/20/18 Unknown History Mag Hydrox/Aluminum Hyd/Simeth 355 ml PO DAILY PRN 15 Days 11/08/18 11/20/18 Unknown Rx [Maalox Advanced Suspension] oral.susp Active Meds: Active Medications Acetaminophen (Tylenol) 650 mg PO Q4H PRN PRN Reason: Pain MILD(1-3)/Fever >100.5/DOUGLAS Albuterol/Ipratropium (Duoneb *Not For Prn Use*) 1 ampul IH Q6HRT [facility] Apixaban (Eliquis) 2.5 mg PO Q12HR [facility]; Protocol Atorvastatin Calcium (Lipitor) 40 mg PO QHS BEAN Famotidine (Pepcid) 10 mg PO BID BEAN Fluoxetine HCl (Prozac) 40 mg PO QDAY [facility] Diltiazem HCl (Cardizem/D5w 100mg/100ml) 100 mg in 100 mls @ 5 mls/hr IV TITR BEAN; Protocol Last Titration: 11/20/18 04:42 Dose: 10 mg/hr, 10 mls/hr Documented by: Levofloxacin (Levaquin) 500 mg PO Q48HR [facility] Methylprednisolone Sodium Succinate (Solu-Medrol) 80 mg IV Q6HR [facility] Last Admin: 11/20/18 06:00 Dose: 80 mg Documented by: Ondansetron HCl (Zofran) 4 mg IV Q8H PRN PRN Reason: Nausea And Vomiting Polyethylene Glycol (Miralax 3350) 17 gm PO QDAY PRN PRN Reason: Constipation Senna/Docusate Sodium (Senokot S) 1 tab PO BID BEAN Sodium Chloride (Sodium Chloride Flush Syringe 10 Ml) 10 ml IV BID BEAN Sodium Chloride (Sodium Chloride Flush Syringe 10 Ml) 10 ml IV PRN PRN PRN Reason: LINE FLUSH Review of Systems Constitutional: no weight loss, no weight gain, no fever, no chills, no anorexia, no weakness, no poor appetite Cardiovascular: chest pain, shortness of breath, dyspnea on exertion, high blood pressure, no orthopnea, no palpitations, no rapid/irregular heart beat, no edema, no syncope, no lightheadedness, no leg edema Respiratory: cough, shortness of breath, dyspnea on exertion, wheezing Gastrointestinal: no abdominal pain, no nausea, no vomiting, no diarrhea, no melena Genitourinary Male: no dysuria, no hematuria Integumentary: no rash, no wounds, no jaundice Neurological: no head injury, no paralysis, no weakness, no seizures, no syncope, no convulsions, no aphasia, no change in speech, no change in mentation, no confusion Exam - Vital Signs Vital signs: Vital Signs Pulse Resp Pulse Ox 116 H 28 H 97 11/19/18 23:52 11/19/18 23:52 11/19/18 23:52 - General Appearance General appearance: well-developed, appears stated age, other (not in distress, R IJ tunnel catheter) EENT: ATNC, PERRL, mucous membranes moist, hearing intact, vision intact Neck: Present: neck supple, trachea midline Respiratory: Clear to Ascultation, Decreased Breath Sounds (L side) Heart: irregularly irregular, S1S2, no murmurs Gastrointestinal: Present: normoactive bowel sounds. Absent: tenderness, distended Integumentary: no rash, warm and dry Neurologic: no focal deficit, no asterixis, alert and oriented x3 Musculoskeletal: Present: other (L forearm amputation) Results - Lab Results 11/21/18 08:18 11/22/18 08:32 Most recent lab results Calcium 8.8 mg/dL (8.4-10.2) 11/20/18 03:12 Assessment and Plan 1. ESRD: Continue hemodialysis three times a week, TTS schedule. HD today. 2. FEN: Hyperkalemia, HD today. Suspected volume overload, UF with HD as tolerated. Monitor lytes. 3. A.fib with RVR: Rate controlled. 4. DM type 2. 5. Chronic pleural effusion: Followed by pulmonary. 6. Anemia: Epogen with HD. 7. PAD.
--- NOTE | 2018-11-20 09:23 | Consultation ---
History of Present Illness - Reason for Consult Consult date: 11/20/18 Afib with RVR on cardizem Requesting physician: ENEDINA WASHINGTON - History of Present Illness 71 y/o male, well known to me as I have seen him several times in the hospital for left sided chest pain and left sided transudative effusion who presents again with left sided chest pain and shortness of breath. Does have moderate sized left sided effusion but also had afib with RVR. Started on cardizem drip. Currently appears to be in fib but rate controlled. patient is awake and alert. BP stable. Currently on oxygen satting 96%. No family at bedside. This is his 6th admit this year. Past History Past Medical History: ESRD, hypertension, hyperlipidemia, other (psych issues) Past Surgical History: Other (vas cath placement) Social history: ( has a stroke and cannot come to the hospital) Family history: no significant family history Medications and Allergies Allergies Allergy/AdvReac Type Severity Reaction Status Date / Time aspirin Allergy Unknown Verified 03/16/17 01:25 pork derived (porcine) Allergy Rash Verified 03/16/17 01:27 venom-honey bee Allergy Anaphylaxis Verified 03/16/17 01:27 [bee venom (honey bee)] Pork/Porcine Containing AdvReac Severe Nausea,VOMI Verified 02/13/17 09:31 Products TING Home Medications Medication Instructions Recorded Confirmed Last Taken Type Acetaminophen [Acetaminophen TAB] 650 mg PO Q4H PRN tablet 05/05/18 11/20/18 09/21/18 Rx Apixaban [Eliquis] 2.5 mg PO Q12HR #60 tablet 09/05/18 11/20/18 09/21/18 Rx AtorvaSTATin [Lipitor] 40 mg PO QHS #30 tablet 09/05/18 11/20/18 09/21/18 Rx Epoetin Prashant 10,000 Unit [Procrit] 10,000 unit SUB-Q KATERYNA PRN #30 vial 09/05/18 11/20/18 09/21/18 Rx FLUoxetine HCL [Fluoxetine HCl] 40 mg PO QDAY #30 capsule 09/05/18 11/20/18 09/21/18 Rx Famotidine [Pepcid] 10 mg PO BID #15 tablet 09/05/18 11/20/18 09/21/18 Rx Fe Fumarate/FA/Mv, Min Comb#15 1 each PO QDAY #30 capsule 09/05/18 11/20/18 09/21/18 Rx [Hemocyte Plus] ISOSORBIDE MONOnitrate [Imdur ER] 30 mg PO QDAY #30 tablet 09/05/18 11/20/18 09/21/18 Rx Losartan [Cozaar] 100 mg PO QDAY 30 Days tablet 09/05/18 11/20/18 09/21/18 Rx Metoprolol Xl [Metoprolol 100 mg PO QDAY #30 tablet 09/05/18 11/20/18 09/21/18 Rx SUCCINATE ER TAB] Polyethylene Glycol 3350 [Miralax 17 gm PO QDAY PRN powd.pack 09/05/18 11/20/18 09/21/18 Rx 3350] Sennosides/Docusate [Senokot S] 1 tab PO BID tablet 09/05/18 11/20/18 09/21/18 Rx amLODIPine [Norvasc] 10 mg PO DAILY #30 tablet 09/05/18 11/20/18 09/21/18 Rx hydrALAZINE [Apresoline TAB] 50 mg PO BID 11/06/18 11/20/18 Unknown History Mag Hydrox/Aluminum Hyd/Simeth 355 ml PO DAILY PRN 15 Days 11/08/18 11/20/18 Unknown Rx [Maalox Advanced Suspension] oral.susp Active Meds: Active Medications Acetaminophen (Tylenol) 650 mg PO Q4H PRN PRN Reason: Pain MILD(1-3)/Fever >100.5/DOUGLAS Albuterol/Ipratropium (Duoneb *Not For Prn Use*) 1 ampul IH Q6HRT BEAN Apixaban (Eliquis) 2.5 mg PO Q12HR BEAN; Protocol Atorvastatin Calcium (Lipitor) 40 mg PO QHS BEAN Famotidine (Pepcid) 10 mg PO BID BEAN Fluoxetine HCl (Prozac) 40 mg PO QDAY BEAN Diltiazem HCl (Cardizem/D5w 100mg/100ml) 100 mg in 100 mls @ 5 mls/hr IV TITR BEAN; Protocol Last Titration: 11/20/18 04:42 Dose: 10 mg/hr, 10 mls/hr Documented by: Levofloxacin (Levaquin) 500 mg PO Q48HR [facility] Methylprednisolone Sodium Succinate (Solu-Medrol) 80 mg IV Q6HR [facility] Last Admin: 11/20/18 06:00 Dose: 80 mg Documented by: Ondansetron HCl (Zofran) 4 mg IV Q8H PRN PRN Reason: Nausea And Vomiting Polyethylene Glycol (Miralax 3350) 17 gm PO QDAY PRN PRN Reason: Constipation Senna/Docusate Sodium (Senokot S) 1 tab PO BID BEAN Sodium Chloride (Sodium Chloride Flush Syringe 10 Ml) 10 ml IV BID BEAN Sodium Chloride (Sodium Chloride Flush Syringe 10 Ml) 10 ml IV PRN PRN PRN Reason: LINE FLUSH Review of Systems All systems: negative Exam - Constitutional Vitals: Temp Pulse Resp BP Pulse Ox 97.6 F 85 15 145/103 97 11/20/18 08:00 11/20/18 08:31 11/20/18 08:31 11/20/18 08:31 11/20/18 08:11 General appearance: Present: no acute distress, cachectic - EENT Eyes: Present: PERRL, conjunctival injection (of left eye) ENT: hearing intact, clear oral mucosa - Neck Neck: Present: supple, normal ROM - Respiratory Respiratory effort: normal Respiratory: left: diminished, bilateral: rales - Cardiovascular Rhythm: irregularly irregular - Extremities Extremities: pulses intact - Abdominal General gastrointestinal: Present: soft, non-tender, normal bowel sounds Male genitourinary: Present: deferred - Rectal Rectal Exam: deferred - Integumentary Integumentary: Present: clear, warm, dry - Psychiatric Psychiatric: appropriate mood/affect Results - Labs CBC & Chem 7: 11/20/18 03:11 11/20/18 03:12 Labs: Abnormal lab results 11/20/18 11/20/18 11/20/18 Range/Units 00:17 00:17 00:17 WBC (4.5-11.0) K/mm3 RBC 3.04 L (3.65-5.03) M/mm3 Hgb 10.0 L (11.8-15.2) gm/dl Hct 30.4 L (35.5-45.6) % MCV 100 H (84-94) fl MCH 33 H (28-32) pg RDW 15.5 H (13.2-15.2) % Plt Count 106 L (140-440) K/mm3 [place] % (Auto) 9.8 H (0.0-7.3) % Lymph # 1.0 L (1.2-5.4) K/mm3 Seg Neutrophils % (40.0-70.0) % PT 19.0 H (12.2-14.9) Sec. INR 1.49 H (0.87-1.13) Sodium 135 L (137-145) mmol/L Potassium 6.3 H* (3.6-5.0) mmol/L Chloride 96.9 L (98-107) mmol/L Carbon Dioxide 21 L (22-30) mmol/L BUN 54 H (9-20) mg/dL Creatinine 8.3 H (0.8-1.5) mg/dL Glucose (75-100) mg/dL Troponin T 0.258 H* (0.00-0.029) ng/mL NT-Pro-B Natriuret Pep > 39175 H (0-900) pg/mL LDL Cholesterol Direct 32 L (50-130) mg/dL 11/20/18 11/20/18 11/20/18 Range/Units 03:11 03:11 03:12 WBC 3.8 L (4.5-11.0) K/mm3 RBC 3.16 L (3.65-5.03) M/mm3 Hgb 10.5 L (11.8-15.2) gm/dl Hct 32.0 L (35.5-45.6) % MCV 101 H (84-94) fl MCH 33 H (28-32) pg RDW 15.5 H (13.2-15.2) % Plt Count 95 L (140-440) K/mm3 [place] % (Auto) (0.0-7.3) % Lymph # 0.6 L (1.2-5.4) K/mm3 Seg Neutrophils % 80.3 H (40.0-70.0) % PT (12.2-14.9) Sec. INR (0.87-1.13) Sodium 136 L (137-145) mmol/L Potassium 5.8 H (3.6-5.0) mmol/L Chloride 97.7 L (98-107) mmol/L Carbon Dioxide 20 L (22-30) mmol/L BUN 55 H (9-20) mg/dL Creatinine 8.4 H (0.8-1.5) mg/dL Glucose 121 H (75-100) mg/dL Troponin T 0.264 H* (0.00-0.029) ng/mL NT-Pro-B Natriuret Pep (0-900) pg/mL LDL Cholesterol Direct (50-130) mg/dL 11/20/18 Range/Units 05:43 WBC (4.5-11.0) K/mm3 RBC (3.65-5.03) M/mm3 Hgb (11.8-15.2) gm/dl Hct (35.5-45.6) % MCV (84-94) fl MCH (28-32) pg RDW (13.2-15.2) % Plt Count (140-440) K/mm3 [place] % (Auto) (0.0-7.3) % Lymph # (1.2-5.4) K/mm3 Seg Neutrophils % (40.0-70.0) % PT (12.2-14.9) Sec. INR (0.87-1.13) Sodium (137-145) mmol/L Potassium (3.6-5.0) mmol/L Chloride (98-107) mmol/L Carbon Dioxide (22-30) mmol/L BUN (9-20) mg/dL Creatinine (0.8-1.5) mg/dL Glucose (75-100) mg/dL Troponin T 0.253 H* (0.00-0.029) ng/mL NT-Pro-B Natriuret Pep (0-900) pg/mL LDL Cholesterol Direct (50-130) mg/dL - Imaging and Cardiology Chest x-ray: image reviewed (moderate left sided pleural effusion.) Assessment and Plan 71 y/o male with afib with RVR and left sided pleural effusion 1. Spoke with renal about the possiblity of trying to pull more fluid 2. Spoke with patient about the possibility of pleurx catheter. Concerned about family dynamics. Will talk with CM 3. Need to transition to oral rate control meds 4. Will discuss on rounds but likely needs to be switched to heparin therapy in the event that we need to do something invasive
--- NOTE | 2018-11-20 09:43 | Progress Note ---
Assessment and Plan Assessment and plan: Cole rader with RVRr pneumonia Chest pain Chronically elevated troponin Coronary artery disease CHF, Chronic, systolic Hypertension End-stage renal disease on dialysis PTSD Left subconjunctival hemorrhage Thrombocytopenia Plan Admitted to ICU Now off cardizem drip Cardiology following Nephrology following patient recently treated forn pneumonia Continue appropriate outpatient medications DVT prophylaxis, monitor subconjunctival hemorrhage Hospitalist Physical - Physical exam Narrative exam: Gen: Not in acute distress, lying in bed, HEENT: Normocephalic, atraumatic Neck: supple, no JVD Heart: S1 and S2 reg, no murmurs, rubs or gallop Lungs: Clear, no crackles, no wheeze Abd: soft, non tender, non distended, normal BS Ext: No edema, no clubbing, no cyanosis, Neuro: Awake,alert, oriented x 3, moves all ext, non focal Psych:Normal mood - Constitutional Vitals: Temp Pulse Resp BP Pulse Ox 97.6 F 85 15 145/103 97 11/20/18 08:00 11/20/18 08:31 11/20/18 08:31 11/20/18 08:31 11/20/18 08:11 Results - Labs CBC & Chem 7: 11/20/18 03:11 11/20/18 03:12 Labs: Laboratory Last Values WBC 3.8 K/mm3 (4.5-11.0) L 11/20/18 03:11 RBC 3.16 M/mm3 (3.65-5.03) L 11/20/18 03:11 Hgb 10.5 gm/dl (11.8-15.2) L 11/20/18 03:11 Hct 32.0 % (35.5-45.6) L 11/20/18 03:11 MCV 101 fl (84-94) H 11/20/18 03:11 MCH 33 pg (28-32) H 11/20/18 03:11 MCHC 33 % (32-34) 11/20/18 03:11 RDW 15.5 % (13.2-15.2) H 11/20/18 03:11 Plt Count 95 K/mm3 (140-440) L 11/20/18 03:11 Lymph % (Auto) 14.9 % (13.4-35.0) 11/20/18 03:11 [place] % (Auto) 4.0 % (0.0-7.3) 11/20/18 03:11 Eos % (Auto) 0.3 % (0.0-4.3) 11/20/18 03:11 Baso % (Auto) 0.5 % (0.0-1.8) 11/20/18 03:11 Lymph # 0.6 K/mm3 (1.2-5.4) L 11/20/18 03:11 [place] # 0.2 K/mm3 (0.0-0.8) 11/20/18 03:11 Eos # 0.0 K/mm3 (0.0-0.4) 11/20/18 03:11 Baso # 0.0 K/mm3 (0.0-0.1) 11/20/18 03:11 Seg Neutrophils % 80.3 % (40.0-70.0) H 11/20/18 03:11 Seg Neutrophils # 3.1 K/mm3 (1.8-7.7) 11/20/18 03:11 PT 19.0 Sec. (12.2-14.9) H 11/20/18 00:17 INR 1.49 (0.87-1.13) H 11/20/18 00:17 APTT 36.1 Sec. (24.2-36.6) 11/20/18 00:17 Sodium 136 mmol/L (137-145) L 11/20/18 03:12 Potassium 5.8 mmol/L (3.6-5.0) H 11/20/18 03:12 Chloride 97.7 mmol/L (98-107) L 11/20/18 03:12 Carbon Dioxide 20 mmol/L (22-30) L 11/20/18 03:12 24 mmol/L 11/20/18 03:12 BUN 55 mg/dL (9-20) H 11/20/18 03:12 8.4 mg/dL (0.8-1.5) H 11/20/18 03:12 Estimated GFR 8 ml/min 11/20/18 03:12 7 % 11/20/18 03:12 Glucose 121 mg/dL (75-100) H 11/20/18 03:12 Calcium 8.8 mg/dL (8.4-10.2) 11/20/18 03:12 100 units/L (55-170) 11/20/18 03:11 CK-MB (CK-2) 3.4 ng/mL (0.0-4.0) 11/20/18 03:11 CK-MB (CK-2) Rel Index 3.4 (0-4) 11/20/18 03:11 0.253 ng/mL (0.00-0.029) H* 11/20/18 05:43 NT-Pro-B Natriuret Pep > 35974 pg/mL (0-900) H 11/20/18 00:17 Triglycerides 83 mg/dL (2-149) 11/20/18 00:17 Cholesterol 94 mg/dL (50-199) 11/20/18 00:17 32 mg/dL (50-130) L 11/20/18 00:17 50 mg/dL (40-59) 11/20/18 00:17 1.88 % 11/20/18 00:17 Active Medications - Current Medications Current Medications: Generic Name Dose Route Start Last Admin Trade Name Freq PRN Reason Stop Dose Admin Acetaminophen 650 mg 11/20/18 02:09 Tylenol PO Q4H PRN Pain MILD(1-3)/Fever >100.5/DOUGLAS Apixaban 2.5 mg 11/20/18 10:00 Eliquis PO Q12HR [facility] Protocol Arformoterol Tartrate 15 mcg 11/20/18 09:45 Brovana Nebu IH Q12HRT [facility] Atorvastatin Calcium 40 mg 11/20/18 22:00 Lipitor PO QHS BEAN Budesonide 0.5 mg 11/20/18 09:45 Pulmicort IH Q12HRT BEAN Famotidine 10 mg 11/20/18 10:00 Pepcid PO BID BEAN Fluoxetine HCl 40 mg 11/20/18 10:00 Prozac PO QDAY BEAN Diltiazem HCl 100 mg in 100 mls @ 5 mls/hr 11/19/18 23:45 11/20/18 04:42 Cardizem/D5w 100mg/100ml IV 10 mg/hr TITR BEAN 10 mls/hr Titration Protocol 5 MG/HR Sodium Chloride 100 mls @ 999 mls/hr 11/20/18 09:19 Nacl 0.9% IV KATERYNA PRN Hypotension Levofloxacin 500 mg 11/20/18 10:00 Levaquin PO Q48HR BEAN Ondansetron HCl 4 mg 11/20/18 02:09 Zofran IV Q8H PRN Nausea And Vomiting Polyethylene Glycol 17 gm 11/20/18 06:34 Miralax 3350 PO QDAY PRN Constipation Senna/Docusate Sodium 1 tab 11/20/18 10:00 Senokot S PO BID BEAN Sodium Chloride 10 ml 11/20/18 10:00 Sodium Chloride Flush Syringe 10 Ml IV BID BEAN Sodium Chloride 10 ml 11/20/18 02:09 Sodium Chloride Flush Syringe 10 Ml IV PRN PRN LINE FLUSH
[2018-11-20] MEDS ORDERED: LEVAQUIN 250MG/50ML 250 MG/50 ML BAG IV SCH (10:00)
[2018-11-20] MEDS ORDERED: LEVAQUIN PO SCH (10:00)
[2018-11-20] MEDS: PEPCID PO SCH ×2 (10:02→21:29)
[2018-11-20] MEDS: SENOKOT S PO SCH ×2 (10:02→21:29)
[2018-11-20] MEDS: ELIQUIS PO SCH ×2 (10:02→21:29)
[2018-11-20] MEDS: PROzac PO SCH (10:03)
[2018-11-20] MEDS: SODIUM CHLORIDE FLUSH SYRINGE 10 ML IV SCH ×2 (10:03→21:29)
[2018-11-20] MEDS: LOPRESSOR PO SCH ×2 (10:32→17:28)
[2018-11-20 10:47] LABS: Creatine Kinase MB 4.6 ng/mL (0.0-4.0)
[2018-11-20] MEDS: BROVANA NEBU IH SCH ×2 (11:10→20:54)
[2018-11-20] MEDS: PULMICORT IH SCH ×2 (11:11→20:54)
--- NOTE | 2018-11-20 11:27 | Consultation ---
History of Present Illness Consult date: 11/20/18 Consult reason: atrial fibrillation, congestive heart failure History of present illness: Patient is a 71 year old man with frequent hospitalizations. He has end-stage renal disease on hemodialysis. He has severe dilated nonischemic cardiomyopathy. He has single vessel, mild nonobstructive disease of the LAD noted on a cardiac catheterization January of 2017. His latest cardiac workup was done at [facility] a month ago. He had a persantine thallium stress test that reports a no perfusion abnormalities, ejection fraction 40% by echocardiogram. He has chronic atrial fibrillation and is on low dose eliquis therapy. In addition, he has recurrent pleural effusion requiring frequent thoracentesis. Patient returns with chest pain anad shortness of breath, admitted with rapid atrial fibrillation, decompensated heart failure with left pleural effusion. Currently undergoing dialysis and appears comfortable. He is on intravenous Diltiazem drip for rate control. A cardiac consultation was requested for CHF and atrial fibrillation management. Past History Past Medical History: ESRD, heart failure, hypertension, hyperlipidemia, other (psych issues) Past Surgical History: Other (vas cath placement) Social history: ( has a stroke and cannot come to the hospital) Family history: no significant family history Medications and Allergies Allergies Allergy/AdvReac Type Severity Reaction Status Date / Time aspirin Allergy Unknown Verified 03/16/17 01:25 pork derived (porcine) Allergy Rash Verified 03/16/17 01:27 venom-honey bee Allergy Anaphylaxis Verified 03/16/17 01:27 [bee venom (honey bee)] Pork/Porcine Containing AdvReac Severe Nausea,VOMI Verified 02/13/17 09:31 Products TING Home Medications Medication Instructions Recorded Confirmed Last Taken Type Acetaminophen [Acetaminophen TAB] 650 mg PO Q4H PRN tablet 05/05/18 11/20/18 09/21/18 Rx Apixaban [Eliquis] 2.5 mg PO Q12HR #60 tablet 09/05/18 11/20/18 09/21/18 Rx AtorvaSTATin [Lipitor] 40 mg PO QHS #30 tablet 09/05/18 11/20/18 09/21/18 Rx Epoetin Prashant 10,000 Unit [Procrit] 10,000 unit SUB-Q KATERYNA PRN #30 vial 09/05/18 11/20/18 09/21/18 Rx FLUoxetine HCL [Fluoxetine HCl] 40 mg PO QDAY #30 capsule 09/05/18 11/20/18 09/21/18 Rx Famotidine [Pepcid] 10 mg PO BID #15 tablet 09/05/18 11/20/18 09/21/18 Rx Fe Fumarate/FA/Mv, Min Comb#15 1 each PO QDAY #30 capsule 09/05/18 11/20/18 09/21/18 Rx [Hemocyte Plus] ISOSORBIDE MONOnitrate [Imdur ER] 30 mg PO QDAY #30 tablet 09/05/18 11/20/18 09/21/18 Rx Losartan [Cozaar] 100 mg PO QDAY 30 Days tablet 09/05/18 11/20/18 09/21/18 Rx Metoprolol Xl [Metoprolol 100 mg PO QDAY #30 tablet 09/05/18 11/20/18 09/21/18 Rx SUCCINATE ER TAB] Polyethylene Glycol 3350 [Miralax 17 gm PO QDAY PRN powd.pack 09/05/18 11/20/18 09/21/18 Rx 3350] Sennosides/Docusate [Senokot S] 1 tab PO BID tablet 09/05/18 11/20/18 09/21/18 Rx amLODIPine [Norvasc] 10 mg PO DAILY #30 tablet 09/05/18 11/20/18 09/21/18 Rx hydrALAZINE [Apresoline TAB] 50 mg PO BID 11/06/18 11/20/18 Unknown History Mag Hydrox/Aluminum Hyd/Simeth 355 ml PO DAILY PRN 15 Days 11/08/18 11/20/18 Unknown Rx [Maalox Advanced Suspension] oral.susp Active Meds: Active Medications Acetaminophen (Tylenol) 650 mg PO Q4H PRN PRN Reason: Pain MILD(1-3)/Fever >100.5/DOUGLAS Apixaban (Eliquis) 2.5 mg PO Q12HR BEAN; Protocol Last Admin: 11/20/18 10:02 Dose: 2.5 mg Documented by: Arformoterol Tartrate (Brovana Nebu) 15 mcg IH Q12HRT BEAN Last Admin: 11/20/18 11:10 Dose: Not Given Documented by: Atorvastatin Calcium (Lipitor) 40 mg PO QHS BEAN Budesonide (Pulmicort) 0.5 mg IH Q12HRT [facility] Last Admin: 11/20/18 11:11 Dose: Not Given Documented by: Famotidine (Pepcid) 10 mg PO BID [facility] Last Admin: 11/20/18 10:02 Dose: 10 mg Documented by: Fluoxetine HCl (Prozac) 40 mg PO QDAY [facility] Last Admin: 11/20/18 10:03 Dose: Not Given Documented by: Diltiazem HCl (Cardizem/D5w 100mg/100ml) 100 mg in 100 mls @ 5 mls/hr IV TITR [facility]; Protocol Last Titration: 11/20/18 10:33 Dose: 0 mg/hr, 0 mls/hr Documented by: Sodium Chloride (Nacl 0.9%) 100 mls @ 999 mls/hr IV KATERYNA PRN PRN Reason: Hypotension Metoprolol Tartrate (Lopressor) 25 mg PO Q6HR [facility] Last Admin: 11/20/18 10:32 Dose: 25 mg Documented by: Ondansetron HCl (Zofran) 4 mg IV Q8H PRN PRN Reason: Nausea And Vomiting Polyethylene Glycol (Miralax 3350) 17 gm PO QDAY PRN PRN Reason: Constipation Senna/Docusate Sodium (Senokot S) 1 tab PO BID [facility] Last Admin: 11/20/18 10:02 Dose: 1 tab Documented by: Sodium Chloride (Sodium Chloride Flush Syringe 10 Ml) 10 ml IV BID [facility] Last Admin: 11/20/18 10:03 Dose: 10 ml Documented by: Sodium Chloride (Sodium Chloride Flush Syringe 10 Ml) 10 ml IV PRN PRN PRN Reason: LINE FLUSH Physical Examination Vital Signs Pulse Resp Pulse Ox 116 H 28 H 97 11/19/18 23:52 11/19/18 23:52 11/19/18 23:52 General appearance: no acute distress HEENT: Positive: PERRL Neck: Positive: trachea midline Cardiac: Positive: irregularly irregular Lungs: Positive: Decreased Breath Sounds Neuro: Positive: Grossly Intact, Weakness Results 11/20/18 03:11 11/20/18 03:12 Cardiac Enzymes 11/20/18 11/20/18 Range/Units 03:11 09:29 CK-MB (CK-2) 3.4 4.6 H (0.0-4.0) ng/mL Coagulation 11/20/18 Range/Units 00:17 PT 19.0 H (12.2-14.9) Sec. INR 1.49 H (0.87-1.13) APTT 36.1 (24.2-36.6) Sec. Lipids 11/20/18 Range/Units 00:17 Triglycerides 83 (2-149) mg/dL Cholesterol 94 (50-199) mg/dL HDL Cholesterol 50 (40-59) mg/dL Cholesterol/HDL Ratio 1.88 % CBC 11/20/18 11/20/18 Range/Units 00:17 03:11 WBC 5.0 3.8 L (4.5-11.0) K/mm3 RBC 3.04 L 3.16 L (3.65-5.03) M/mm3 Hgb 10.0 L 10.5 L (11.8-15.2) gm/dl Hct 30.4 L 32.0 L (35.5-45.6) % Plt Count 106 L 95 L (140-440) K/mm3 Lymph # 1.0 L 0.6 L (1.2-5.4) K/mm3 [place] # 0.5 0.2 (0.0-0.8) K/mm3 Eos # 0.1 0.0 (0.0-0.4) K/mm3 Baso # 0.1 0.0 (0.0-0.1) K/mm3 Comprehensive Metabolic Panel 11/20/18 11/20/18 Range/Units 00:17 03:12 Sodium 135 L 136 L (137-145) mmol/L Potassium 6.3 H* 5.8 H (3.6-5.0) mmol/L Chloride 96.9 L 97.7 L (98-107) mmol/L Carbon Dioxide 21 L 20 L (22-30) mmol/L BUN 54 H 55 H (9-20) mg/dL Creatinine 8.3 H 8.4 H (0.8-1.5) mg/dL Glucose 86 121 H (75-100) mg/dL Calcium 9.0 8.8 (8.4-10.2) mg/dL Assessment and Plan Left pleural effusion Decompensated systolic heart failure DM type II PVD s/p left arm amputation Hypertension ESRD on hemodialysis Thrombocytopenia, chronic Hx of Nonischemic CMP, EF 40% Non-obstructive CAD LHC 01/2017 revealed non-obstructive, single vessel disease of the proximal LAD recommended for medical therapy. normal perfusion MPI at [facility] 10/03/18. Permanent Atrial fibrillation, rate control on low dose eliquis as an outpatient
[2018-11-20] MEDS: NORVASC PO SCH (14:41)
[2018-11-20] MEDS: IMDUR PO SCH (14:41)
[2018-11-20] MEDS: MORPHINE IV PRN (17:28)
[2018-11-20] MEDS: SODIUM CHLORIDE FLUSH SYRINGE 10 ML IV PRN (17:30)
--- NOTE | 2018-11-20 17:51 | Event Note ---
Date: 11/20/18 Patient with rapid afib. I have seen and examined him. Continue current management. May transfer out of ICU later today.
[2018-11-20] MEDS ORDERED: APRESOLINE IV PRN (18:27)
[2018-11-20] MEDS ORDERED: PROVENTIL IH PRN (22:12)
[2018-11-21] MEDS: LOPRESSOR PO SCH ×5 (00:29→23:14)
[2018-11-21] MEDS: MORPHINE IV PRN ×5 (00:37→23:12)
[2018-11-21] MEDS ORDERED: NACL 0.9% 100 ML IV PRN (07:38)
[2018-11-21] MEDS: BROVANA NEBU IH SCH ×2 (08:34→19:25)
[2018-11-21] MEDS: PULMICORT IH SCH ×2 (08:34→19:25)
[2018-11-21 08:41] LABS: Hematocrit 26.8 % (35.5-45.6); Mean Corpuscular HGB Conc 34 % (32-34); Mean Corpuscular Volume 99 fl (84-94); Red Blood Count 2.71 M/mm3 (3.65-5.03); Red Cell Distribution Width 15.6 % (13.2-15.2)
[2018-11-21 08:43] LABS: Platelet Count 93 K/mm3 (140-440)
[2018-11-21 09:00] LABS: Calcium 8.4 mg/dL (8.4-10.2)
--- NOTE | 2018-11-21 09:29 | Progress Note ---
Assessment and Plan Assessment and plan: Cole rader with RVR Chest pain Chronically elevated troponin Coronary artery disease CHF, Chronic, systolic Hypertension End-stage renal disease on dialysis PTSD Left subconjunctival hemorrhage Thrombocytopenia Hyperkalemia Plan Admitted to medicine Off cardizem drip, now on oral meds Cardiology following Nephrology following patient recently treated for pneumonia Continue appropriate outpatient medications DVT prophylaxis, monitor subconjunctival hemorrhage History Interval history: Less shortness of breath No more chest pain Hospitalist Physical - Physical exam Narrative exam: Gen: Not in acute distress, lying in bed, HEENT: Normocephalic, atraumatic Neck: supple, no JVD Heart: S1 and S2 irreg, no murmurs, rubs or gallop Lungs: Clear, no crackles, no wheeze Abd: soft, non tender, non distended, normal BS Ext: No edema, no clubbing, no cyanosis, Neuro: Awake,alert, oriented x 3, moves all ext Psych:Normal mood - Constitutional Vitals: Temp Pulse Resp BP Pulse Ox 98.0 F 74 18 156/109 98 11/21/18 05:07 11/21/18 06:06 11/21/18 05:06 11/21/18 06:06 11/21/18 05:06 General appearance: Present: no acute distress Results - Labs CBC & Chem 7: 11/21/18 08:18 11/21/18 08:18 Labs: Laboratory Last Values WBC 5.2 K/mm3 (4.5-11.0) 11/21/18 08:18 RBC 2.71 M/mm3 (3.65-5.03) L 11/21/18 08:18 Hgb 9.0 gm/dl (11.8-15.2) L 11/21/18 08:18 Hct 26.8 % (35.5-45.6) L 11/21/18 08:18 MCV 99 fl (84-94) H 11/21/18 08:18 MCH 33 pg (28-32) H 11/21/18 08:18 MCHC 34 % (32-34) 11/21/18 08:18 RDW 15.6 % (13.2-15.2) H 11/21/18 08:18 Plt Count 93 K/mm3 (140-440) L 11/21/18 08:18 Lymph % (Auto) 14.9 % (13.4-35.0) 11/20/18 03:11 [place] % (Auto) 4.0 % (0.0-7.3) 11/20/18 03:11 Eos % (Auto) 0.3 % (0.0-4.3) 11/20/18 03:11 Baso % (Auto) 0.5 % (0.0-1.8) 11/20/18 03:11 Lymph # 0.6 K/mm3 (1.2-5.4) L 11/20/18 03:11 [place] # 0.2 K/mm3 (0.0-0.8) 11/20/18 03:11 Eos # 0.0 K/mm3 (0.0-0.4) 11/20/18 03:11 Baso # 0.0 K/mm3 (0.0-0.1) 11/20/18 03:11 Seg Neutrophils % 80.3 % (40.0-70.0) H 11/20/18 03:11 Seg Neutrophils # 3.1 K/mm3 (1.8-7.7) 11/20/18 03:11 PT 19.0 Sec. (12.2-14.9) H 11/20/18 00:17 INR 1.49 (0.87-1.13) H 11/20/18 00:17 APTT 36.1 Sec. (24.2-36.6) 11/20/18 00:17 Sodium 138 mmol/L (137-145) 11/21/18 08:18 Potassium 5.5 mmol/L (3.6-5.0) H 11/21/18 08:18 Chloride 97.9 mmol/L (98-107) L 11/21/18 08:18 Carbon Dioxide 25 mmol/L (22-30) 11/21/18 08:18 21 mmol/L 11/21/18 08:18 BUN 39 mg/dL (9-20) H 11/21/18 08:18 5.7 mg/dL (0.8-1.5) H 11/21/18 08:18 Estimated GFR 12 ml/min 11/21/18 08:18 7 % 11/21/18 08:18 Glucose 107 mg/dL (75-100) H 11/21/18 08:18 Calcium 8.4 mg/dL (8.4-10.2) 11/21/18 08:18 108 units/L (55-170) 11/20/18 09:29 CK-MB (CK-2) 4.6 ng/mL (0.0-4.0) H 11/20/18 09:29 CK-MB (CK-2) Rel Index 4.2 (0-4) H 11/20/18 09:29 0.219 ng/mL (0.00-0.029) H* 11/20/18 09:29 NT-Pro-B Natriuret Pep > 02015 pg/mL (0-900) H 11/20/18 00:17 Triglycerides 83 mg/dL (2-149) 11/20/18 00:17 Cholesterol 94 mg/dL (50-199) 11/20/18 00:17 32 mg/dL (50-130) L 11/20/18 00:17 50 mg/dL (40-59) 11/20/18 00:17 1.88 % 11/20/18 00:17 Active Medications - Current Medications Current Medications: Generic Name Dose Route Start Last Admin Trade Name Freq PRN Reason Stop Dose Admin Acetaminophen 650 mg 11/20/18 02:09 Tylenol PO Q4H PRN Pain MILD(1-3)/Fever >100.5/DOUGLAS Albuterol 2.5 mg 11/20/18 22:12 Proventil IH Q4HRT PRN Shortness Of Breath Amlodipine Besylate 10 mg 11/20/18 15:00 11/20/18 14:41 Norvasc PO 10 mg DAILY BEAN Administration Apixaban 2.5 mg 11/20/18 10:00 11/20/18 21:29 Eliquis PO 2.5 mg Q12HR BEAN Administration Protocol Arformoterol Tartrate 15 mcg 11/20/18 09:45 11/21/18 08:34 Brovana Nebu IH Not Given Q12HRT BEAN Atorvastatin Calcium 40 mg 11/20/18 22:00 11/20/18 21:29 Lipitor PO 40 mg QHS BEAN Administration Budesonide 0.5 mg 11/20/18 09:45 11/21/18 08:34 Pulmicort IH Not Given Q12HRT BEAN Famotidine 10 mg 11/20/18 10:00 11/20/18 21:29 Pepcid PO 10 mg BID BEAN Administration Fluoxetine HCl 40 mg 11/20/18 10:00 11/20/18 10:03 Prozac PO Not Given QDAY BEAN Hydralazine HCl 20 mg 11/20/18 18:27 Apresoline IV Q4HR PRN SBP>160 or DBP>110 Diltiazem HCl 100 mg in 100 mls @ 5 mls/hr 11/19/18 23:45 11/20/18 10:33 Cardizem/D5w 100mg/100ml IV 0 mg/hr TITR BEAN 0 mls/hr Titration Protocol 5 MG/HR Sodium Chloride 100 mls @ 999 mls/hr 11/21/18 07:38 Nacl 0.9% IV KATERYNA PRN Hypotension Isosorbide Mononitrate 30 mg 11/20/18 15:00 11/20/18 14:41 Imdur PO 30 mg DAILY BEAN Administration Metoprolol Tartrate 25 mg 11/20/18 11:00 11/21/18 06:06 Lopressor PO 25 mg Q6HR BEAN Administration Morphine Sulfate 2 mg 11/20/18 15:44 11/21/18 06:09 Morphine IV 2 mg Q4H PRN Administration Pain, Moderate (4-6) Ondansetron HCl 4 mg 11/20/18 02:09 Zofran IV Q8H PRN Nausea And Vomiting Polyethylene Glycol 17 gm 11/20/18 06:34 Miralax 3350 PO QDAY PRN Constipation Senna/Docusate Sodium 1 tab 11/20/18 10:00 11/20/18 21:29 Senokot S PO 1 tab BID EBAN Administration Sodium Chloride 10 ml 11/20/18 10:00 11/20/18 21:29 Sodium Chloride Flush Syringe 10 Ml IV 10 ml BID BEAN Administration Sodium Chloride 10 ml 11/20/18 02:09 11/20/18 17:30 Sodium Chloride Flush Syringe 10 Ml IV 10 ml PRN PRN Administration LINE FLUSH
--- NOTE | 2018-11-21 09:32 | Progress Note ---
Assessment and Plan Left pleural effusion Chronic systolic heart failure DM type II PVD s/p left arm amputation Hypertension ESRD on hemodialysis Thrombocytopenia, chronic Hx of Nonischemic CMP, EF 40% Non-obstructive CAD [facility] 01/2017 revealed non-obstructive, single vessel disease of the proximal LAD recommended for medical therapy. normal perfusion MPI at [facility] 10/03/18. Permanent Atrial fibrillation rate controlled with metoprolol on low dose eliquis as an outpatient Continue medical therapy for nonischemic cardiomyopathy and chronic systolic heart failure. Dialysis for fluid management. Subjective Date of service: 11/21/18 Interval history: Undergoing dialysis. No distress noted. Afib with a well controlled ventricular rate on telemetry. Objective Vital Signs Temp Pulse Pulse Pulse Resp Resp BP 11/21/18 06:06 74 156/109 11/21/18 05:07 98.0 F 11/21/18 05:06 74 18 156/109 11/21/18 00:37 20 11/21/18 00:29 98 H 145/102 11/20/18 23:31 97.6 F 11/20/18 23:30 92 H 20 145/102 11/20/18 21:24 97.6 F 11/20/18 21:04 78 20 11/20/18 20:57 11/20/18 20:56 98 H 11/20/18 20:54 84 17 11/20/18 20:04 74 20 141/99 11/20/18 18:41 79 15 144/101 11/20/18 18:30 79 22 144/101 11/20/18 18:21 153/112 11/20/18 18:11 151/102 11/20/18 18:00 79 14 153/112 11/20/18 17:50 78 17 153/112 11/20/18 17:41 78 12 155/111 11/20/18 17:31 73 14 155/111 11/20/18 17:28 77 162/109 11/20/18 17:21 86 12 162/109 11/20/18 17:11 83 13 149/108 11/20/18 17:01 73 17 149/108 11/20/18 16:51 73 16 155/107 11/20/18 16:41 69 17 136/83 11/20/18 16:30 73 22 136/83 11/20/18 16:21 76 21 155/107 11/20/18 16:11 74 18 154/108 11/20/18 16:01 76 15 154/108 11/20/18 16:00 97.5 F L 76 15 11/20/18 15:51 73 15 157/105 11/20/18 15:41 69 13 156/109 11/20/18 15:30 76 14 156/109 11/20/18 15:21 71 14 152/109 11/20/18 15:11 74 16 171/107 11/20/18 15:00 82 12 171/107 11/20/18 14:51 80 19 152/101 11/20/18 14:41 70 13 156/116 11/20/18 14:31 73 12 145/94 11/20/18 14:20 76 11 L 156/116 11/20/18 14:11 85 11 L 150/113 11/20/18 14:01 82 14 150/113 11/20/18 13:55 97.6 F 95 H 15 219/97 11/20/18 13:51 83 15 219/97 11/20/18 13:41 83 14 145/118 11/20/18 13:31 73 11 L 145/118 11/20/18 13:30 96 H 219/97 11/20/18 13:21 78 11 L 160/103 11/20/18 13:15 80 160/103 11/20/18 13:11 84 14 196/106 11/20/18 13:00 74 12 196/106 11/20/18 12:51 78 14 180/105 11/20/18 12:46 68 180/105 11/20/18 12:41 79 12 178/109 11/20/18 12:31 83 12 178/109 11/20/18 12:21 68 13 148/101 11/20/18 12:15 74 148/101 11/20/18 12:11 74 12 161/102 11/20/18 12:00 97.6 F 74 74 13 161/102 11/20/18 11:51 73 14 151/101 11/20/18 11:45 74 151/101 11/20/18 11:41 72 13 148/98 11/20/18 11:31 69 11 L 148/98 11/20/18 11:30 64 148/98 11/20/18 11:21 69 12 134/108 11/20/18 11:15 69 134/108 11/20/18 11:11 72 12 147/103 11/20/18 11:01 68 17 147/103 11/20/18 11:00 68 149/93 11/20/18 10:51 74 14 149/93 11/20/18 10:45 63 145/93 11/20/18 10:41 66 12 145/93 11/20/18 10:32 66 145/93 11/20/18 10:31 68 15 145/93 11/20/18 10:30 61 149/93 11/20/18 10:21 68 12 136/89 11/20/18 10:20 97.6 F 69 12 145/93 11/20/18 10:11 66 15 140/93 11/20/18 10:01 74 16 140/93 11/20/18 09:51 65 13 143/92 11/20/18 09:41 66 13 143/92 11/20/18 09:31 64 12 143/92 Pulse Ox Pulse Ox 11/21/18 06:06 11/21/18 05:07 11/21/18 05:06 98 11/21/18 00:37 11/21/18 00:29 11/20/18 23:31 11/20/18 23:30 98 11/20/18 21:24 11/20/18 21:04 11/20/18 20:57 98 11/20/18 20:56 11/20/18 20:54 99 11/20/18 20:04 99 11/20/18 18:41 100 11/20/18 18:30 100 11/20/18 18:21 100 11/20/18 18:11 100 11/20/18 18:00 100 11/20/18 17:50 100 11/20/18 17:41 100 11/20/18 17:31 11/20/18 17:28 11/20/18 17:21 84 11/20/18 17:11 11/20/18 17:01 85 11/20/18 16:51 87 11/20/18 16:41 11/20/18 16:30 100 11/20/18 16:21 100 11/20/18 16:11 97 11/20/18 16:01 92 11/20/18 16:00 98 11/20/18 15:51 95 11/20/18 15:41 94 11/20/18 15:30 98 11/20/18 15:21 99 11/20/18 15:11 99 11/20/18 15:00 96 11/20/18 14:51 100 11/20/18 14:41 11/20/18 14:31 11/20/18 14:20 11/20/18 14:11 11/20/18 14:01 85 11/20/18 13:55 11/20/18 13:51 11/20/18 13:41 100 11/20/18 13:31 99 11/20/18 13:30 11/20/18 13:21 100 11/20/18 13:15 11/20/18 13:11 98 11/20/18 13:00 98 11/20/18 12:51 100 11/20/18 12:46 11/20/18 12:41 99 11/20/18 12:31 100 11/20/18 12:21 99 11/20/18 12:15 11/20/18 12:11 98 11/20/18 12:00 99 11/20/18 11:51 100 11/20/18 11:45 11/20/18 11:41 97 11/20/18 11:31 98 11/20/18 11:30 11/20/18 11:21 99 11/20/18 11:15 11/20/18 11:11 100 11/20/18 11:01 95 11/20/18 11:00 11/20/18 10:51 98 11/20/18 10:45 11/20/18 10:41 100 11/20/18 10:32 11/20/18 10:31 11/20/18 10:30 11/20/18 10:21 11/20/18 10:20 98 11/20/18 10:11 95 11/20/18 10:01 97 11/20/18 09:51 100 11/20/18 09:41 97 11/20/18 09:31 95 - Physical Examination General: No Apparent Distress HEENT: Positive: PERRL Neck: Positive: trachea midline Cardiac: Positive: irregularly irregular Lungs: Positive: Decreased Breath Sounds Neuro: Positive: Grossly Intact, Weakness - Labs and Meds Cardiac Enzymes 11/20/18 Range/Units 09:29 CK-MB (CK-2) 4.6 H (0.0-4.0) ng/mL CBC 11/21/18 Range/Units 08:18 WBC 5.2 (4.5-11.0) K/mm3 RBC 2.71 L (3.65-5.03) M/mm3 Hgb 9.0 L (11.8-15.2) gm/dl Hct 26.8 L (35.5-45.6) % Plt Count 93 L (140-440) K/mm3 Comprehensive Metabolic Panel 11/21/18 Range/Units 08:18 Sodium 138 (137-145) mmol/L Potassium 5.5 H (3.6-5.0) mmol/L Chloride 97.9 L (98-107) mmol/L Carbon Dioxide 25 (22-30) mmol/L BUN 39 H (9-20) mg/dL Creatinine 5.7 H (0.8-1.5) mg/dL Glucose 107 H (75-100) mg/dL Calcium 8.4 (8.4-10.2) mg/dL
--- NOTE | 2018-11-21 09:36 | Progress Note ---
Assessment and Plan 1. ESRD: Continue hemodialysis three times a week, TTS schedule. Additional HD today. 2. FEN: Hyperkalemia, HD today. Suspected volume overload, UF with HD as tolerated. Monitor lytes. 3. A.fib with RVR: Rate controlled. 4. DM type 2. 5. Chronic pleural effusion: Followed by pulmonary. 6. Anemia: Epogen with HD. 7. PAD. Subjective Date of service: 11/21/18 Interval history: Patient was seen an examined at the bedside. Objective - Vital Signs Vital signs: Vital Signs - 12hr 11/20/18 11/20/18 11/21/18 23:30 23:31 00:29 Temperature 97.6 F Pulse Rate 92 H 98 H Respiratory 20 Rate Blood Pressure 145/102 145/102 O2 Sat by Pulse 98 Oximetry 11/21/18 11/21/18 11/21/18 00:37 05:06 05:07 Temperature 98.0 F Pulse Rate 74 Respiratory 20 18 Rate Blood Pressure 156/109 O2 Sat by Pulse 98 Oximetry 11/21/18 06:06 Temperature Pulse Rate 74 Respiratory Rate Blood Pressure 156/109 O2 Sat by Pulse Oximetry - General Appearance General appearance: well-developed, appears stated age, other (no dsitress, R IJ tunnel catheter) EENT: ATNC, PERRL, mucous membranes moist, hearing intact, vision intact Neck: supple Respiratory: Present: Clear to Ascultation Cardiology: irregularly irregular, S1S2, no murmurs Gastrointestinal: normoactive bowel sounds, no tenderness, no distended Integumentary: warm and dry Neurologic: no focal deficit, no asterixis, alert and oriented x3 Musculoskeletal: other (L forearm amputated) - Lab 11/21/18 08:18 11/22/18 08:32 Most recent lab results Calcium 8.4 mg/dL (8.4-10.2) 11/21/18 08:18 Medications & Allergies - Medications Allergies/Adverse Reactions: Allergies aspirin Allergy (Verified 03/16/17 01:25) Unknown stomach cramps pork derived (porcine) Allergy (Verified 03/16/17 01:27) Rash venom-honey bee [bee venom (honey bee)] Allergy (Verified 03/16/17 01:27) Anaphylaxis Pork/Porcine Containing Products Adverse Reaction (Severe, Verified 02/13/17 09:31) Nausea,VOMITING Home Medications: Home Medications Medication Instructions Recorded Confirmed Last Taken Type Acetaminophen [Acetaminophen TAB] 650 mg PO Q4H PRN tablet 05/05/18 11/20/18 09/21/18 Rx Apixaban [Eliquis] 2.5 mg PO Q12HR #60 tablet 09/05/18 11/20/18 09/21/18 Rx AtorvaSTATin [Lipitor] 40 mg PO QHS #30 tablet 09/05/18 11/20/18 09/21/18 Rx Epoetin Prashant 10,000 Unit [Procrit] 10,000 unit SUB-Q KATERYNA PRN #30 vial 09/05/18 11/20/18 09/21/18 Rx FLUoxetine HCL [Fluoxetine HCl] 40 mg PO QDAY #30 capsule 09/05/18 11/20/18 09/21/18 Rx Famotidine [Pepcid] 10 mg PO BID #15 tablet 09/05/18 11/20/18 09/21/18 Rx Fe Fumarate/FA/Mv, Min Comb#15 1 each PO QDAY #30 capsule 09/05/18 11/20/18 09/21/18 Rx [Hemocyte Plus] ISOSORBIDE MONOnitrate [Imdur ER] 30 mg PO QDAY #30 tablet 09/05/18 11/20/18 09/21/18 Rx Losartan [Cozaar] 100 mg PO QDAY 30 Days tablet 09/05/18 11/20/18 09/21/18 Rx Metoprolol Xl [Metoprolol 100 mg PO QDAY #30 tablet 09/05/18 11/20/18 09/21/18 Rx SUCCINATE ER TAB] Polyethylene Glycol 3350 [Miralax 17 gm PO QDAY PRN powd.pack 09/05/18 11/20/18 09/21/18 Rx 3350] Sennosides/Docusate [Senokot S] 1 tab PO BID tablet 09/05/18 11/20/18 09/21/18 Rx amLODIPine [Norvasc] 10 mg PO DAILY #30 tablet 09/05/18 11/20/18 09/21/18 Rx hydrALAZINE [Apresoline TAB] 50 mg PO BID 11/06/18 11/20/18 Unknown History Mag Hydrox/Aluminum Hyd/Simeth 355 ml PO DAILY PRN 15 Days 11/08/18 11/20/18 Unknown Rx [Maalox Advanced Suspension] oral.susp Active Medications: Generic Name Dose Route Start Last Admin Trade Name Tricia PRN Reason Stop Dose Admin Acetaminophen 650 mg 11/20/18 02:09 Tylenol PO Q4H PRN Pain MILD(1-3)/Fever >100.5/DOUGLAS Albuterol 2.5 mg 11/20/18 22:12 Proventil IH Q4HRT PRN Shortness Of Breath Amlodipine Besylate 10 mg 11/20/18 15:00 11/20/18 14:41 Norvasc PO 10 mg DAILY BEAN Administration Apixaban 2.5 mg 11/20/18 10:00 11/20/18 21:29 Eliquis PO 2.5 mg Q12HR BEAN Administration Protocol Arformoterol Tartrate 15 mcg 11/20/18 09:45 11/21/18 08:34 Brovana Nebu IH Not Given Q12HRT BEAN Atorvastatin Calcium 40 mg 11/20/18 22:00 11/20/18 21:29 Lipitor PO 40 mg QHS BEAN Administration Budesonide 0.5 mg 11/20/18 09:45 11/21/18 08:34 Pulmicort IH Not Given Q12HRT BEAN Famotidine 10 mg 11/20/18 10:00 11/20/18 21:29 Pepcid PO 10 mg BID BEAN Administration Fluoxetine HCl 40 mg 11/20/18 10:00 11/20/18 10:03 Prozac PO Not Given QDAY BEAN Hydralazine HCl 20 mg 11/20/18 18:27 Apresoline IV Q4HR PRN SBP>160 or DBP>110 Diltiazem HCl 100 mg in 100 mls @ 5 mls/hr 11/19/18 23:45 11/20/18 10:33 Cardizem/D5w 100mg/100ml IV 0 mg/hr TITR BEAN 0 mls/hr Titration Protocol 5 MG/HR Sodium Chloride 100 mls @ 999 mls/hr 11/21/18 07:38 Nacl 0.9% IV KATERYNA PRN Hypotension Isosorbide Mononitrate 30 mg 11/20/18 15:00 11/20/18 14:41 Imdur PO 30 mg DAILY BEAN Administration Metoprolol Tartrate 25 mg 11/20/18 11:00 11/21/18 06:06 Lopressor PO 25 mg Q6HR BEAN Administration Morphine Sulfate 2 mg 11/20/18 15:44 11/21/18 06:09 Morphine IV 2 mg Q4H PRN Administration Pain, Moderate (4-6) Ondansetron HCl 4 mg 11/20/18 02:09 Zofran IV Q8H PRN Nausea And Vomiting Polyethylene Glycol 17 gm 11/20/18 06:34 Miralax 3350 PO QDAY PRN Constipation Senna/Docusate Sodium 1 tab 11/20/18 10:00 11/20/18 21:29 Senokot S PO 1 tab BID BEAN Administration Sodium Chloride 10 ml 11/20/18 10:00 11/20/18 21:29 Sodium Chloride Flush Syringe 10 Ml IV 10 ml BID BEAN Administration Sodium Chloride 10 ml 11/20/18 02:09 11/20/18 17:30 Sodium Chloride Flush Syringe 10 Ml IV 10 ml PRN PRN Administration LINE FLUSH
[2018-11-21] MEDS: SENOKOT S PO SCH ×2 (12:32→22:28)
[2018-11-21] MEDS: PROzac PO SCH (12:32)
[2018-11-21] MEDS: IMDUR PO SCH (12:33)
[2018-11-21] MEDS: PEPCID PO SCH ×2 (12:33→22:28)
[2018-11-21] MEDS: NORVASC PO SCH (12:33)
[2018-11-21] MEDS: SODIUM CHLORIDE FLUSH SYRINGE 10 ML IV SCH ×2 (12:34→22:29)
[2018-11-21] MEDS: ELIQUIS PO SCH ×2 (12:35→22:28)
--- NOTE | 2018-11-21 13:22 | Progress Note ---
Assessment and Plan 71 y/o male with afib with RVR and left sided pleural effusion 1. Spoke with renal about the possiblity of trying to pull more fluid 2. Spoke with patient about the possibility of pleurx catheter. Concerned about family dynamics. Likely will not be a candidate as no one can drain it. 3. Need to transition to oral rate control meds Subjective Date of service: 11/21/18 Interval history: No acute events. Rate is better controlled Objective Vital Signs - 12hr 11/21/18 11/21/18 11/21/18 05:06 05:07 06:06 Temperature 98.0 F Pulse Rate 74 74 Respiratory 18 Rate Blood Pressure 156/109 156/109 O2 Sat by Pulse 98 Oximetry 11/21/18 11/21/18 11/21/18 08:50 09:00 09:15 Temperature 98.0 F Pulse Rate 105 H 79 67 Respiratory 18 Rate Blood Pressure 147/114 147/107 146/105 O2 Sat by Pulse Oximetry 11/21/18 11/21/18 11/21/18 09:30 09:45 10:15 Temperature Pulse Rate 71 62 78 Respiratory Rate Blood Pressure 148/116 148/111 149/119 O2 Sat by Pulse Oximetry 11/21/18 11/21/18 11/21/18 10:30 10:45 10:53 Temperature Pulse Rate 93 H 92 H 75 Respiratory Rate Blood Pressure 163/122 176/118 175/117 O2 Sat by Pulse Oximetry 11/21/18 11/21/18 11/21/18 11:00 12:33 12:34 Temperature 98.0 F Pulse Rate 82 75 75 Respiratory 18 Rate Blood Pressure 156/103 175/117 175/117 O2 Sat by Pulse Oximetry CBC and BMP: 11/21/18 08:18 11/22/18 08:32 ABG, PT/INR, D-dimer: PT/INR, D-dimer PT 19.0 Sec. (12.2-14.9) H 11/20/18 00:17 INR 1.49 (0.87-1.13) H 11/20/18 00:17 Abnormal lab findings: Abnormal Labs 11/20/18 11/20/18 11/20/18 00:17 00:17 00:17 WBC RBC 3.04 L Hgb 10.0 L Hct 30.4 L MCV 100 H MCH 33 H RDW 15.5 H Plt Count 106 L [place] % (Auto) 9.8 H Lymph # 1.0 L Seg Neutrophils % PT 19.0 H INR 1.49 H Sodium 135 L Potassium 6.3 H* Chloride 96.9 L Carbon Dioxide 21 L BUN 54 H Creatinine 8.3 H Glucose CK-MB (CK-2) CK-MB (CK-2) Rel Index Troponin T 0.258 H* NT-Pro-B Natriuret Pep > 58120 H LDL Cholesterol Direct 32 L 11/20/18 11/20/18 11/20/18 03:11 03:11 03:12 WBC 3.8 L RBC 3.16 L Hgb 10.5 L Hct 32.0 L MCV 101 H MCH 33 H RDW 15.5 H Plt Count 95 L [place] % (Auto) Lymph # 0.6 L Seg Neutrophils % 80.3 H PT INR Sodium 136 L Potassium 5.8 H Chloride 97.7 L Carbon Dioxide 20 L BUN 55 H Creatinine 8.4 H Glucose 121 H CK-MB (CK-2) CK-MB (CK-2) Rel Index Troponin T 0.264 H* NT-Pro-B Natriuret Pep LDL Cholesterol Direct 11/20/18 11/20/18 11/21/18 05:43 09:29 08:18 WBC RBC 2.71 L Hgb 9.0 L Hct 26.8 L MCV 99 H MCH 33 H RDW 15.6 H Plt Count 93 L [place] % (Auto) Lymph # Seg Neutrophils % PT INR Sodium Potassium Chloride Carbon Dioxide BUN Creatinine Glucose CK-MB (CK-2) 4.6 H CK-MB (CK-2) Rel Index 4.2 H Troponin T 0.253 H* 0.219 H* NT-Pro-B Natriuret Pep LDL Cholesterol Direct 11/21/18 08:18 WBC RBC Hgb Hct MCV MCH RDW Plt Count [place] % (Auto) Lymph # Seg Neutrophils % PT INR Sodium Potassium 5.5 H Chloride 97.9 L Carbon Dioxide BUN 39 H Creatinine 5.7 H Glucose 107 H CK-MB (CK-2) CK-MB (CK-2) Rel Index Troponin T NT-Pro-B Natriuret Pep LDL Cholesterol Direct
[2018-11-21 14:56] LABS: Hepatitis B Surface Antigen Non-Reactive (Negative); Hepatitis C Virus Antibody Reactive (NonReactive)
[2018-11-21] MEDS ORDERED: NACL 0.9 (PRIMING MACHINE ONLY DIALYSIS) MC ONE (15:08)
[2018-11-22] MEDS: MORPHINE IV PRN ×4 (03:32→18:45)
[2018-11-22] MEDS: LOPRESSOR PO SCH ×3 (06:33→18:46)
--- NOTE | 2018-11-22 08:52 | Progress Note ---
Assessment and Plan Assessment and plan: Cole rader with RVR Chest pain Chronically elevated troponin Coronary artery disease CHF, Chronic, systolic Hypertension End-stage renal disease on dialysis PTSD Left subconjunctival hemorrhage Thrombocytopenia Hyperkalemia,resolve Plan Admitted to medicine Off cardizem drip, now on oral meds Cardiology following Nephrology following patient recently treated for pneumonia Continue appropriate outpatient medications DVT prophylaxis Likely dc home tomorrow History Interval history: Less shortness of breath No more chest pain Hospitalist Physical - Physical exam Narrative exam: Gen: Not in acute distress, lying in bed, HEENT: Normocephalic, atraumatic Neck: supple, no JVD Heart: S1 and S2 irreg, no murmurs, rubs or gallop Lungs: Clear, no crackles, no wheeze Abd: soft, non tender, non distended, normal BS Ext: No edema, no clubbing, no cyanosis, Neuro: Awake,alert, oriented x 3, moves all ext Psych:Normal mood - Constitutional Vitals: Temp Pulse Resp BP Pulse Ox 98.4 F 72 18 149/113 98 11/22/18 03:50 11/22/18 06:33 11/22/18 03:50 11/22/18 06:33 11/22/18 03:50 General appearance: Present: no acute distress Results - Labs CBC & Chem 7: 11/21/18 08:18 11/22/18 08:32 Labs: Laboratory Last Values WBC 5.2 K/mm3 (4.5-11.0) 11/21/18 08:18 RBC 2.71 M/mm3 (3.65-5.03) L 11/21/18 08:18 Hgb 9.0 gm/dl (11.8-15.2) L 11/21/18 08:18 Hct 26.8 % (35.5-45.6) L 11/21/18 08:18 MCV 99 fl (84-94) H 11/21/18 08:18 MCH 33 pg (28-32) H 11/21/18 08:18 MCHC 34 % (32-34) 11/21/18 08:18 RDW 15.6 % (13.2-15.2) H 11/21/18 08:18 Plt Count 93 K/mm3 (140-440) L 11/21/18 08:18 Lymph % (Auto) 14.9 % (13.4-35.0) 11/20/18 03:11 [place] % (Auto) 4.0 % (0.0-7.3) 11/20/18 03:11 Eos % (Auto) 0.3 % (0.0-4.3) 11/20/18 03:11 Baso % (Auto) 0.5 % (0.0-1.8) 11/20/18 03:11 Lymph # 0.6 K/mm3 (1.2-5.4) L 11/20/18 03:11 [place] # 0.2 K/mm3 (0.0-0.8) 11/20/18 03:11 Eos # 0.0 K/mm3 (0.0-0.4) 11/20/18 03:11 Baso # 0.0 K/mm3 (0.0-0.1) 11/20/18 03:11 Seg Neutrophils % 80.3 % (40.0-70.0) H 11/20/18 03:11 Seg Neutrophils # 3.1 K/mm3 (1.8-7.7) 11/20/18 03:11 PT 19.0 Sec. (12.2-14.9) H 11/20/18 00:17 INR 1.49 (0.87-1.13) H 11/20/18 00:17 APTT 36.1 Sec. (24.2-36.6) 11/20/18 00:17 Sodium 138 mmol/L (137-145) 11/21/18 08:18 Potassium 5.5 mmol/L (3.6-5.0) H 11/21/18 08:18 Chloride 97.9 mmol/L (98-107) L 11/21/18 08:18 Carbon Dioxide 25 mmol/L (22-30) 11/21/18 08:18 21 mmol/L 11/21/18 08:18 BUN 39 mg/dL (9-20) H 11/21/18 08:18 5.7 mg/dL (0.8-1.5) H 11/21/18 08:18 Estimated GFR 12 ml/min 11/21/18 08:18 7 % 11/21/18 08:18 Glucose 107 mg/dL (75-100) H 11/21/18 08:18 Calcium 8.4 mg/dL (8.4-10.2) 11/21/18 08:18 108 units/L (55-170) 11/20/18 09:29 CK-MB (CK-2) 4.6 ng/mL (0.0-4.0) H 11/20/18 09:29 CK-MB (CK-2) Rel Index 4.2 (0-4) H 11/20/18 09:29 0.219 ng/mL (0.00-0.029) H* 11/20/18 09:29 NT-Pro-B Natriuret Pep > 53293 pg/mL (0-900) H 11/20/18 00:17 Triglycerides 83 mg/dL (2-149) 11/20/18 00:17 Cholesterol 94 mg/dL (50-199) 11/20/18 00:17 32 mg/dL (50-130) L 11/20/18 00:17 50 mg/dL (40-59) 11/20/18 00:17 1.88 % 11/20/18 00:17 Hepatitis A IgM Ab Non-reactive (NonReactive) 11/21/18 13:18 Hep Bs Antigen Non-reactive (Negative) 11/21/18 13:18 Hep B Core IgM Ab Non-reactive (NonReactive) 11/21/18 13:18 Reactive (NonReactive) A 11/21/18 13:18 Active Medications - Current Medications Current Medications: Generic Name Dose Route Start Last Admin Trade Name Freq PRN Reason Stop Dose Admin Acetaminophen 650 mg 11/20/18 02:09 Tylenol PO Q4H PRN Pain MILD(1-3)/Fever >100.5/DOUGLAS Albuterol 2.5 mg 11/20/18 22:12 Proventil IH Q4HRT PRN Shortness Of Breath Amlodipine Besylate 10 mg 11/20/18 15:00 11/21/18 12:33 Norvasc PO 10 mg DAILY BEAN Administration Apixaban 2.5 mg 11/20/18 10:00 11/21/18 22:28 Eliquis PO 2.5 mg Q12HR BEAN Administration Protocol Arformoterol Tartrate 15 mcg 11/20/18 09:45 11/21/18 19:25 Brovana Nebu IH Not Given Q12HRT [facility] Atorvastatin Calcium 40 mg 11/20/18 22:00 11/21/18 22:28 Lipitor PO 40 mg QHS BEAN Administration Budesonide 0.5 mg 11/20/18 09:45 11/21/18 19:25 Pulmicort IH Not Given Q12HRT BEAN Famotidine 10 mg 11/20/18 10:00 11/21/18 22:28 Pepcid PO 10 mg BID BEAN Administration Fluoxetine HCl 40 mg 11/20/18 10:00 11/21/18 12:32 Prozac PO 40 mg QDAY BEAN Administration Hydralazine HCl 20 mg 11/20/18 18:27 Apresoline IV Q4HR PRN SBP>160 or DBP>110 Sodium Chloride 100 mls @ 999 mls/hr 11/21/18 07:38 Nacl 0.9% IV KATERYNA PRN Hypotension Isosorbide Mononitrate 30 mg 11/20/18 15:00 11/21/18 12:33 Imdur PO 30 mg DAILY BEAN Administration Metoprolol Tartrate 25 mg 11/20/18 11:00 11/22/18 06:33 Lopressor PO 25 mg Q6HR BEAN Administration Morphine Sulfate 2 mg 11/20/18 15:44 11/22/18 03:32 Morphine IV 2 mg Q4H PRN Administration Pain, Moderate (4-6) Ondansetron HCl 4 mg 11/20/18 02:09 Zofran IV Q8H PRN Nausea And Vomiting Polyethylene Glycol 17 gm 11/20/18 06:34 Miralax 3350 PO QDAY PRN Constipation Senna/Docusate Sodium 1 tab 11/20/18 10:00 11/21/18 22:28 Senokot S PO 1 tab BID BEAN Administration Sodium Chloride 10 ml 11/20/18 10:00 11/21/18 22:29 Sodium Chloride Flush Syringe 10 Ml IV 10 ml BID BEAN Administration Sodium Chloride 10 ml 11/20/18 02:09 11/20/18 17:30 Sodium Chloride Flush Syringe 10 Ml IV 10 ml PRN PRN Administration LINE FLUSH Nutrition/Malnutrition Assess - Dietary Evaluation Nutrition/Malnutrition Findings: Nutrition Notes Start: 11/21/18 15:23 Freq: Status: Active Protocol: Document 11/21/18 15:23 RM (Rec: 11/21/18 15:33 RM [id number]) Nutrition Notes Need for Assessment generated from: Low BMI Initial or Follow up Assessment Current Diagnosis Coronary Artery Disease, Hypertension,Heart Failure Other Pertinent Diagnosis PTSD, ESRD on HD, Pneu Current Diet Cardiac Labs/Tests K 5.5 Pertinent Medications Reviewed Height 5 ft 9 in Weight 53.9 kg Usual Body Weight 80.91 kg [place] Body Weight (kg) 72.72 BMI 17.5 Weight change and time frame [facility]% wt loss X 2 years Subjective/Other Information Screened for low BMI. 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 Noted preferences. Stated his UBW was 175 to 180 lbs 2 years ago . Unsure of dry wt. Noted temporal wasting. Burn Absent Trauma Absent #1 Nutrition Diagnosis Malnutrition Etiology decreased appetite As Evidenced by Signs and Symptoms pt statement that IGNITION EXPERT he ate 1 meal daily, temporal wasting, BMI 18.1 Is patient on ventilator? No Is Patient Ambulatory and/or Out of Bed Yes REE-([place]-ambulatory/OOB) [ 1676.194 [id number]] Kcal/Kg value to use for calculation 37 Approximate Energy Requirements Using 1994 kcal/Kg Calculation Used for Recommendations Kcal/kg Additional Notes Protein Need: 67-72g (1.2-1.3g /kg) Fluid Needs: 1 ml/kcal Nutrition Intervention Change Diet Order: Continue current Add Supplement/Snack (indicate name/kcal Ensure Clear BID (M/W/F/Sun) /protein ) Provides kCal: 480 Provides Protein (gm) 16 Goal #1 Meet at least 75% of calorie and protein needs via PO and ONS intakes Anticipated Discharge Needs: Cardiac diet Follow-Up By: 11/23/18 Additional Comments Follow for PO and ONS intakes
[2018-11-22 09:11] LABS: Calcium 8.4 mg/dL (8.4-10.2)
[2018-11-22] MEDS ORDERED: NACL 0.9% 100 ML IV PRN (09:20)
--- NOTE | 2018-11-22 09:45 | Progress Note ---
Assessment and Plan 1. ESRD: Continue hemodialysis three times a week, TTS schedule. HD today. 2. FEN: Hyperkalemia, improved. Suspected volume overload, UF with HD as tolerated. Monitor lytes. 3. A.fib with RVR: Rate controlled. 4. DM type 2. 5. Chronic pleural effusion: Followed by pulmonary. 6. Anemia: Epogen with HD. 7. PAD. Subjective Date of service: 11/22/18 Interval history: Patient was seen an examined at the bedside. Doing ok. Objective - Vital Signs Vital signs: Vital Signs - 12hr 11/21/18 11/21/18 11/21/18 22:46 23:10 23:14 Temperature 97.4 F L Pulse Rate 90 89 Pulse Rate [ 74 Bilateral Throughout] Respiratory 16 Rate Respiratory 20 Rate [Bilateral Throughout] Blood Pressure 139/93 139/93 O2 Sat by Pulse 99 Oximetry 11/22/18 11/22/18 11/22/18 00:00 03:50 04:00 Temperature 98.4 F Pulse Rate 89 81 81 Pulse Rate [ Bilateral Throughout] Respiratory 18 Rate Respiratory Rate [Bilateral Throughout] Blood Pressure 151/104 O2 Sat by Pulse 98 Oximetry 11/22/18 11/22/18 06:33 07:41 Temperature 97.6 F Pulse Rate 72 Pulse Rate [ Bilateral Throughout] Respiratory 18 Rate Respiratory Rate [Bilateral Throughout] Blood Pressure 149/113 150/106 O2 Sat by Pulse Oximetry - General Appearance General appearance: well-developed, appears stated age, other (no distress, R IJ tunnel catheter) EENT: ATNC, PERRL, mucous membranes moist, hearing intact, vision intact Neck: supple Respiratory: Present: Clear to Ascultation Cardiology: irregularly irregular, S1S2, no murmurs Gastrointestinal: normoactive bowel sounds, no tenderness, no distended Integumentary: warm and dry Neurologic: no focal deficit, no asterixis, alert and oriented x3 Musculoskeletal: other (no edema, L forearm amputated) - Lab 11/21/18 08:18 11/22/18 08:32 Most recent lab results Calcium 8.4 mg/dL (8.4-10.2) 11/22/18 08:32 Medications & Allergies - Medications Allergies/Adverse Reactions: Allergies aspirin Allergy (Verified 03/16/17 01:25) Unknown stomach cramps pork derived (porcine) Allergy (Verified 03/16/17 01:27) Rash venom-honey bee [bee venom (honey bee)] Allergy (Verified 03/16/17 01:27) Anaphylaxis Pork/Porcine Containing Products Adverse Reaction (Severe, Verified 02/13/17 09:31) Nausea,VOMITING Home Medications: Home Medications Medication Instructions Recorded Confirmed Last Taken Type Acetaminophen [Acetaminophen TAB] 650 mg PO Q4H PRN tablet 05/05/18 11/20/18 09/21/18 Rx Apixaban [Eliquis] 2.5 mg PO Q12HR #60 tablet 09/05/18 11/20/18 09/21/18 Rx AtorvaSTATin [Lipitor] 40 mg PO QHS #30 tablet 09/05/18 11/20/18 09/21/18 Rx Epoetin Prashant 10,000 Unit [Procrit] 10,000 unit SUB-Q KATERYNA PRN #30 vial 09/05/18 11/20/18 09/21/18 Rx FLUoxetine HCL [Fluoxetine HCl] 40 mg PO QDAY #30 capsule 09/05/18 11/20/18 09/21/18 Rx Famotidine [Pepcid] 10 mg PO BID #15 tablet 09/05/18 11/20/18 09/21/18 Rx Fe Fumarate/FA/Mv, Min Comb#15 1 each PO QDAY #30 capsule 09/05/18 11/20/18 09/21/18 Rx [Hemocyte Plus] ISOSORBIDE MONOnitrate [Imdur ER] 30 mg PO QDAY #30 tablet 09/05/18 11/20/18 09/21/18 Rx Losartan [Cozaar] 100 mg PO QDAY 30 Days tablet 09/05/18 11/20/18 09/21/18 Rx Metoprolol Xl [Metoprolol 100 mg PO QDAY #30 tablet 09/05/18 11/20/18 09/21/18 Rx SUCCINATE ER TAB] Polyethylene Glycol 3350 [Miralax 17 gm PO QDAY PRN powd.pack 09/05/18 11/20/18 09/21/18 Rx 3350] Sennosides/Docusate [Senokot S] 1 tab PO BID tablet 09/05/18 11/20/18 09/21/18 Rx amLODIPine [Norvasc] 10 mg PO DAILY #30 tablet 09/05/18 11/20/18 09/21/18 Rx hydrALAZINE [Apresoline TAB] 50 mg PO BID 11/06/18 11/20/18 Unknown History Mag Hydrox/Aluminum Hyd/Simeth 355 ml PO DAILY PRN 15 Days 11/08/18 11/20/18 Unknown Rx [Maalox Advanced Suspension] oral.susp Active Medications: Generic Name Dose Route Start Last Admin Trade Name Freq PRN Reason Stop Dose Admin Acetaminophen 650 mg 11/20/18 02:09 Tylenol PO Q4H PRN Pain MILD(1-3)/Fever >100.5/DOUGLAS Albuterol 2.5 mg 11/20/18 22:12 Proventil IH Q4HRT PRN Shortness Of Breath Amlodipine Besylate 10 mg 11/20/18 15:00 11/21/18 12:33 Norvasc PO 10 mg DAILY BEAN Administration Apixaban 2.5 mg 11/20/18 10:00 11/21/18 22:28 Eliquis PO 2.5 mg Q12HR BEAN Administration Protocol Arformoterol Tartrate 15 mcg 11/20/18 09:45 11/21/18 19:25 Brovana Nebu IH Not Given Q12HRT BEAN Atorvastatin Calcium 40 mg 11/20/18 22:00 11/21/18 22:28 Lipitor PO 40 mg QHS BEAN Administration Budesonide 0.5 mg 11/20/18 09:45 11/21/18 19:25 Pulmicort IH Not Given Q12HRT BEAN Epoetin Prashant 10,000 unit 11/22/18 09:20 Procrit SUB-Q KATERYNA PRN hemodialysis Famotidine 10 mg 11/20/18 10:00 11/21/18 22:28 Pepcid PO 10 mg BID BEAN Administration Fluoxetine HCl 40 mg 11/20/18 10:00 11/21/18 12:32 Prozac PO 40 mg QDAY BEAN Administration Hydralazine HCl 20 mg 11/20/18 18:27 Apresoline IV Q4HR PRN SBP>160 or DBP>110 Sodium Chloride 100 mls @ 999 mls/hr 11/21/18 07:38 Nacl 0.9% IV KATERYNA PRN Hypotension Sodium Chloride 100 mls @ 999 mls/hr 11/22/18 09:20 Nacl 0.9% IV KATERYNA PRN Hypotension Isosorbide Mononitrate 30 mg 11/20/18 15:00 11/21/18 12:33 Imdur PO 30 mg DAILY BEAN Administration Metoprolol Tartrate 25 mg 11/20/18 11:00 11/22/18 06:33 Lopressor PO 25 mg Q6HR BEAN Administration Morphine Sulfate 2 mg 11/20/18 15:44 11/22/18 09:33 Morphine IV 2 mg Q4H PRN Administration Pain, Moderate (4-6) Ondansetron HCl 4 mg 11/20/18 02:09 Zofran IV Q8H PRN Nausea And Vomiting Polyethylene Glycol 17 gm 11/20/18 06:34 Miralax 3350 PO QDAY PRN Constipation Senna/Docusate Sodium 1 tab 11/20/18 10:00 11/21/18 22:28 Senokot S PO 1 tab BID BEAN Administration Sodium Chloride 10 ml 11/20/18 10:00 11/21/18 22:29 Sodium Chloride Flush Syringe 10 Ml IV 10 ml BID BEAN Administration Sodium Chloride 10 ml 11/20/18 02:09 11/20/18 17:30 Sodium Chloride Flush Syringe 10 Ml IV 10 ml PRN PRN Administration LINE FLUSH
--- NOTE | 2018-11-22 10:28 | Progress Note ---
Assessment and Plan Left pleural effusion Chronic systolic heart failure DM type II PVD s/p left arm amputation Hypertension ESRD on hemodialysis Thrombocytopenia, chronic Hx of Nonischemic CMP, EF 40% Non-obstructive CAD [facility] 01/2017 revealed non-obstructive, single vessel disease of the proximal LAD recommended for medical therapy. normal perfusion MPI at [facility] 10/03/18. Permanent Atrial fibrillation rate controlled with metoprolol on low dose eliquis as an outpatient Continue medical therapy for nonischemic cardiomyopathy and chronic systolic heart failure. Dialysis for fluid management. Otherwise, conservative cardiac management. Subjective Date of service: 11/22/18 Interval history: Patient complains of lower abdominal pain. Patient also reports intermittent chest pain and left arm pain overnight. Afib with a well controlled ventricular rate on telemetry. Objective Vital Signs Temp Pulse Pulse Pulse Resp Resp BP 11/22/18 07:41 97.6 F 18 150/106 11/22/18 06:33 72 149/113 11/22/18 04:00 81 11/22/18 03:50 98.4 F 81 18 151/104 11/22/18 00:00 89 11/21/18 23:14 89 139/93 11/21/18 23:10 97.4 F L 90 16 139/93 11/21/18 22:46 74 20 11/21/18 20:00 88 88 16 11/21/18 19:38 97.5 F L 86 17 143/96 11/21/18 19:27 11/21/18 19:26 76 20 11/21/18 18:12 79 127/84 11/21/18 16:35 98.2 F 79 18 127/89 11/21/18 16:00 89 11/21/18 13:50 97.8 F 81 20 147/98 11/21/18 12:34 75 175/117 11/21/18 12:33 75 175/117 11/21/18 12:32 82 175/117 11/21/18 12:00 87 11/21/18 11:00 98.0 F 82 18 156/103 11/21/18 10:53 75 175/117 11/21/18 10:45 92 H 176/118 11/21/18 10:30 93 H 163/122 Pulse Ox 11/22/18 07:41 11/22/18 06:33 11/22/18 04:00 11/22/18 03:50 98 11/22/18 00:00 11/21/18 23:14 11/21/18 23:10 99 11/21/18 22:46 11/21/18 20:00 100 11/21/18 19:38 100 11/21/18 19:27 97 11/21/18 19:26 11/21/18 18:12 11/21/18 16:35 94 11/21/18 16:00 11/21/18 13:50 100 11/21/18 12:34 11/21/18 12:33 11/21/18 12:32 99 11/21/18 12:00 11/21/18 11:00 11/21/18 10:53 11/21/18 10:45 11/21/18 10:30 - Physical Examination General: No Apparent Distress HEENT: Positive: PERRL Neck: Positive: trachea midline Cardiac: Positive: irregularly irregular Lungs: Positive: Decreased Breath Sounds Neuro: Positive: Grossly Intact, Weakness - Labs and Meds Comprehensive Metabolic Panel 11/22/18 Range/Units 08:32 Sodium 141 (137-145) mmol/L Potassium 4.7 (3.6-5.0) mmol/L Chloride 98.5 (98-107) mmol/L Carbon Dioxide 28 (22-30) mmol/L BUN 43 H (9-20) mg/dL Creatinine 5.5 H (0.8-1.5) mg/dL Glucose 85 (75-100) mg/dL Calcium 8.4 (8.4-10.2) mg/dL
[2018-11-22] MEDS: NORVASC PO SCH (13:57)
[2018-11-22] MEDS: ELIQUIS PO SCH ×2 (13:57→22:27)
[2018-11-22] MEDS: PEPCID PO SCH ×2 (13:58→22:27)
[2018-11-22] MEDS: SODIUM CHLORIDE FLUSH SYRINGE 10 ML IV SCH ×2 (13:59→22:27)
[2018-11-22] MEDS: IMDUR PO SCH (14:04)
[2018-11-22] MEDS: PROzac PO SCH (14:17)
[2018-11-22] MEDS: SENOKOT S PO SCH ×2 (14:17→22:28)
--- NOTE | 2018-11-22 17:02 | XRay Report ---
PROCEDURE: XR CHEST ROUTINE 2V TECHNIQUE: PA and lateral chest radiographs were obtained. HISTORY: pleural effusion bilateral COMPARISONS: 11/19/2018. FINDINGS: A right venous catheter remains in place with distal tip near the cavoatrial junction region. Stable postoperative findings. Nonspecific opacity unchanged in the lower half of the left lung. This is again most compatible with large pleural effusion and adjacent atelectasis and/or pneumonitis. Stable small pleural effusion right lung base. Findings suggest interval resolution of vascular congestion although the cardiac silhouette size ashley ins enlarged. IMPRESSION: Stable lower left lung opacity most compatible with large pleural effusion and adjacent atelectasis a nd/or pneumonitis Stable small right pleural effusion Findings suggest interval resolution of vascular congestion although cardiomegaly persists This document is electronically signed by Jamison Figureedo MD., November 22 2018 05:00:20 PM ET
[2018-11-22] MEDS: BROVANA NEBU IH SCH (20:32)
[2018-11-22] MEDS: PULMICORT IH SCH (20:32)
[2018-11-23] MEDS: LOPRESSOR PO SCH ×4 (00:41→17:57)
[2018-11-23] MEDS: MORPHINE IV PRN ×5 (02:03→21:57)
[2018-11-23] MEDS: BROVANA NEBU IH SCH ×3 (08:27→20:13)
[2018-11-23] MEDS: PULMICORT IH SCH ×3 (08:27→20:13)
--- NOTE | 2018-11-23 09:40 | Progress Note ---
Assessment and Plan Left pleural effusion Chronic systolic heart failure DM type II PVD s/p left arm amputation Hypertension ESRD on hemodialysis Thrombocytopenia, chronic Hx of Nonischemic CMP, EF 40% Non-obstructive CAD [facility] 01/2017 revealed non-obstructive, single vessel disease of the proximal LAD recommended for medical therapy. normal perfusion MPI at [facility] 10/03/18. Permanent Atrial fibrillation rate controlled with metoprolol on low dose eliquis as an outpatient Continue medical therapy for nonischemic cardiomyopathy and chronic systolic heart failure. Dialysis for fluid management. Otherwise, conservative cardiac management. Subjective Date of service: 11/23/18 Interval history: Patient complains of lower abdominal pain. Patient also reports intermittent chest pain and left arm pain overnight. Afib with a well controlled ventricular rate on telemetry. Objective Vital Signs Temp Pulse Pulse Pulse Pulse Resp Resp 11/23/18 08:38 60 16 11/23/18 08:28 65 16 11/23/18 08:26 11/23/18 07:53 98.0 F 75 18 11/23/18 07:46 98.0 F 67 18 11/23/18 07:40 98.0 F 70 16 11/23/18 05:45 79 11/23/18 04:00 98.4 F 84 16 11/23/18 00:41 88 11/22/18 23:10 98.1 F 88 18 11/22/18 22:00 84 84 16 11/22/18 20:40 77 16 11/22/18 20:34 11/22/18 20:32 78 16 11/22/18 19:51 97.5 F L 68 17 11/22/18 18:46 91 H 11/22/18 17:01 97.4 F L 18 11/22/18 14:19 97.5 F L 18 11/22/18 14:04 78 11/22/18 13:57 78 11/22/18 13:15 98.1 F 78 16 11/22/18 13:00 70 11/22/18 12:45 89 11/22/18 12:30 70 11/22/18 12:15 78 11/22/18 12:00 78 11/22/18 11:45 78 11/22/18 11:30 76 11/22/18 11:15 93 H 11/22/18 11:00 86 11/22/18 10:45 70 11/22/18 10:30 74 11/22/18 10:15 98.1 F 67 16 BP BP Pulse Ox 11/23/18 08:38 11/23/18 08:28 11/23/18 08:26 100 11/23/18 07:53 148/103 100 11/23/18 07:46 148/103 11/23/18 07:40 146/117 99 11/23/18 05:45 149/106 11/23/18 04:00 149/106 96 11/23/18 00:41 136/97 11/22/18 23:10 136/97 100 11/22/18 22:00 100 11/22/18 20:40 11/22/18 20:34 100 11/22/18 20:32 11/22/18 19:51 126/92 98 11/22/18 18:46 144/104 11/22/18 17:01 144/104 11/22/18 14:19 159/118 11/22/18 14:04 148/107 11/22/18 13:57 148/107 11/22/18 13:15 148/107 11/22/18 13:00 154/105 11/22/18 12:45 143/121 11/22/18 12:30 147/104 11/22/18 12:15 174/111 11/22/18 12:00 171/107 11/22/18 11:45 152/105 11/22/18 11:30 151/115 11/22/18 11:15 145/102 11/22/18 11:00 142/83 11/22/18 10:45 163/114 11/22/18 10:30 162/106 11/22/18 10:15 145/101 - Physical Examination General: No Apparent Distress HEENT: Positive: PERRL Neck: Positive: trachea midline Cardiac: Positive: irregularly irregular Lungs: Positive: Decreased Breath Sounds Neuro: Positive: Grossly Intact, Weakness
[2018-11-23] MEDS: PROzac PO SCH (10:28)
[2018-11-23] MEDS: IMDUR PO SCH (10:28)
[2018-11-23] MEDS: PEPCID PO SCH ×2 (10:29→21:56)
[2018-11-23] MEDS: ELIQUIS PO SCH (10:29)
[2018-11-23] MEDS: NORVASC PO SCH (10:29)
[2018-11-23] MEDS: SODIUM CHLORIDE FLUSH SYRINGE 10 ML IV SCH ×2 (10:30→21:56)
[2018-11-23] MEDS: SENOKOT S PO SCH ×2 (10:31→21:56)
--- NOTE | 2018-11-23 10:56 | Progress Note ---
Assessment and Plan Assessment and plan: Cole rader with RVR Chest pain Chronically elevated troponin Coronary artery disease CHF, Chronic, systolic Hypertension End-stage renal disease on dialysis PTSD Left subconjunctival hemorrhage Thrombocytopenia Hyperkalemia,resolved large left pleural effusion Plan Admitted to medicine Off cardizem drip, now on oral meds Cardiology following Nephrology following patient recently treated for pneumonia For thoracentesis of large left pleural eff. i discussed with Pulm Will hold Eliquis Continue appropriate outpatient medications DVT prophylaxis History Interval history: Less shortness of breath No more chest pain Hospitalist Physical - Physical exam Narrative exam: Gen: Not in acute distress, lying in bed, HEENT: Normocephalic, atraumatic Neck: supple, no JVD Heart: S1 and S2 irreg, no murmurs, rubs or gallop Lungs: Clear, no crackles, no wheeze Abd: soft, non tender, non distended, normal BS Ext: No edema, no clubbing, no cyanosis, Neuro: Awake,alert, oriented x 3, moves all ext Psych:Normal mood - Constitutional Vitals: Temp Pulse Resp BP Pulse Ox 98.0 F 60 16 148/103 100 11/23/18 07:53 11/23/18 08:38 11/23/18 08:38 11/23/18 10:29 11/23/18 08:26 General appearance: Present: no acute distress Results - Labs CBC & Chem 7: 11/21/18 08:18 11/22/18 08:32 Labs: Laboratory Last Values WBC 5.2 K/mm3 (4.5-11.0) 11/21/18 08:18 RBC 2.71 M/mm3 (3.65-5.03) L 11/21/18 08:18 Hgb 9.0 gm/dl (11.8-15.2) L 11/21/18 08:18 Hct 26.8 % (35.5-45.6) L 11/21/18 08:18 MCV 99 fl (84-94) H 11/21/18 08:18 MCH 33 pg (28-32) H 11/21/18 08:18 MCHC 34 % (32-34) 11/21/18 08:18 RDW 15.6 % (13.2-15.2) H 11/21/18 08:18 Plt Count 93 K/mm3 (140-440) L 11/21/18 08:18 Lymph % (Auto) 14.9 % (13.4-35.0) 11/20/18 03:11 [place] % (Auto) 4.0 % (0.0-7.3) 11/20/18 03:11 Eos % (Auto) 0.3 % (0.0-4.3) 11/20/18 03:11 Baso % (Auto) 0.5 % (0.0-1.8) 11/20/18 03:11 Lymph # 0.6 K/mm3 (1.2-5.4) L 11/20/18 03:11 [place] # 0.2 K/mm3 (0.0-0.8) 11/20/18 03:11 Eos # 0.0 K/mm3 (0.0-0.4) 11/20/18 03:11 Baso # 0.0 K/mm3 (0.0-0.1) 11/20/18 03:11 Seg Neutrophils % 80.3 % (40.0-70.0) H 11/20/18 03:11 Seg Neutrophils # 3.1 K/mm3 (1.8-7.7) 11/20/18 03:11 PT 19.0 Sec. (12.2-14.9) H 11/20/18 00:17 INR 1.49 (0.87-1.13) H 11/20/18 00:17 APTT 36.1 Sec. (24.2-36.6) 11/20/18 00:17 Sodium 141 mmol/L (137-145) 11/22/18 08:32 Potassium 4.7 mmol/L (3.6-5.0) 11/22/18 08:32 Chloride 98.5 mmol/L (98-107) 11/22/18 08:32 Carbon Dioxide 28 mmol/L (22-30) 11/22/18 08:32 19 mmol/L 11/22/18 08:32 BUN 43 mg/dL (9-20) H 11/22/18 08:32 5.5 mg/dL (0.8-1.5) H 11/22/18 08:32 Estimated GFR 12 ml/min 11/22/18 08:32 8 % 11/22/18 08:32 Glucose 85 mg/dL (75-100) 11/22/18 08:32 Calcium 8.4 mg/dL (8.4-10.2) 11/22/18 08:32 108 units/L (55-170) 11/20/18 09:29 CK-MB (CK-2) 4.6 ng/mL (0.0-4.0) H 11/20/18 09:29 CK-MB (CK-2) Rel Index 4.2 (0-4) H 11/20/18 09:29 0.219 ng/mL (0.00-0.029) H* 11/20/18 09:29 NT-Pro-B Natriuret Pep > 44851 pg/mL (0-900) H 11/20/18 00:17 Triglycerides 83 mg/dL (2-149) 11/20/18 00:17 Cholesterol 94 mg/dL (50-199) 11/20/18 00:17 32 mg/dL (50-130) L 11/20/18 00:17 50 mg/dL (40-59) 11/20/18 00:17 1.88 % 11/20/18 00:17 Hepatitis A IgM Ab Non-reactive (NonReactive) 11/21/18 13:18 Hep Bs Antigen Non-reactive (Negative) 11/21/18 13:18 Hep B Core IgM Ab Non-reactive (NonReactive) 11/21/18 13:18 Reactive (NonReactive) A 11/21/18 13:18 Active Medications - Current Medications Current Medications: Generic Name Dose Route Start Last Admin Trade Name Freq PRN Reason Stop Dose Admin Acetaminophen 650 mg 11/20/18 02:09 Tylenol PO Q4H PRN Pain MILD(1-3)/Fever >100.5/DOUGLAS Albuterol 2.5 mg 11/20/18 22:12 Proventil IH Q4HRT PRN Shortness Of Breath Amlodipine Besylate 10 mg 11/20/18 15:00 11/23/18 10:29 Norvasc PO 10 mg DAILY BEAN Administration Apixaban 2.5 mg 11/20/18 10:00 11/23/18 10:29 Eliquis PO 2.5 mg Q12HR BEAN Administration Protocol Arformoterol Tartrate 15 mcg 11/20/18 09:45 11/23/18 08:28 Brovana Nebu IH Not Given Q12HRT [facility] Atorvastatin Calcium 40 mg 11/20/18 22:00 11/22/18 22:27 Lipitor PO 40 mg QHS BEAN Administration Budesonide 0.5 mg 11/20/18 09:45 11/23/18 08:28 Pulmicort IH Not Given Q12HRT [facility] Epoetin Prashant 10,000 unit 11/22/18 09:20 Procrit SUB-Q KATERYNA PRN hemodialysis Famotidine 10 mg 11/20/18 10:00 11/23/18 10:29 Pepcid PO 10 mg BID BEAN Administration Fluoxetine HCl 40 mg 11/20/18 10:00 11/23/18 10:28 Prozac PO 40 mg QDAY BEAN Administration Hydralazine HCl 20 mg 11/20/18 18:27 Apresoline IV Q4HR PRN SBP>160 or DBP>110 Sodium Chloride 100 mls @ 999 mls/hr 11/21/18 07:38 Nacl 0.9% IV KATERYNA PRN Hypotension Isosorbide Mononitrate 30 mg 11/20/18 15:00 11/23/18 10:28 Imdur PO 30 mg DAILY [facility] Administration Metoprolol Tartrate 25 mg 11/20/18 11:00 11/23/18 05:45 Lopressor PO 25 mg Q6HR BEAN Administration Morphine Sulfate 2 mg 11/20/18 15:44 11/23/18 06:58 Morphine IV 2 mg Q4H PRN Administration Pain, Moderate (4-6) Ondansetron HCl 4 mg 11/20/18 02:09 Zofran IV Q8H PRN Nausea And Vomiting Polyethylene Glycol 17 gm 11/20/18 06:34 Miralax 3350 PO QDAY PRN Constipation Senna/Docusate Sodium 1 tab 11/20/18 10:00 11/23/18 10:31 Senokot S PO Not Given BID [facility] Sodium Chloride 10 ml 11/20/18 10:00 11/23/18 10:30 Sodium Chloride Flush Syringe 10 Ml IV 10 ml BID BEAN Administration Sodium Chloride 10 ml 11/20/18 02:09 11/20/18 17:30 Sodium Chloride Flush Syringe 10 Ml IV 10 ml PRN PRN Administration LINE FLUSH Nutrition/Malnutrition Assess - Dietary Evaluation Nutrition/Malnutrition Findings: Nutrition Notes Start: 11/21/18 15:23 Freq: Status: Active Protocol: Document 11/21/18 15:23 RM (Rec: 11/21/18 15:33 RM [id number]) Nutrition Notes Need for Assessment generated from: Low BMI Initial or Follow up Assessment Current Diagnosis Coronary Artery Disease, Hypertension,Heart Failure Other Pertinent Diagnosis PTSD, ESRD on HD, Pneu Current Diet Cardiac Labs/Tests K 5.5 Pertinent Medications Reviewed Height 5 ft 9 in Weight 53.9 kg Usual Body Weight 80.91 kg [place] Body Weight (kg) 72.72 BMI 17.5 Weight change and time frame [facility] 33% wt loss X 2 years Subjective/Other Information Screened for low BMI. 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 Noted preferences. Stated his UBW was 175 to 180 lbs 2 years ago . Unsure of dry wt. Noted temporal wasting. 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 No Is Patient Ambulatory and/or Out of Bed Yes REE-([facility]-ambulatory/OOB) [ 1676.194 NUTR.MSJOOB] Kcal/Kg value to use for calculation 37 Approximate Energy Requirements Using 1994 kcal/Kg Calculation Used for Recommendations Kcal/kg Additional Notes Protein Need: 67-72g (1.2-1.3g /kg) Fluid Needs: 1 ml/kcal Nutrition Intervention Change Diet Order: Continue current Add Supplement/Snack (indicate name/kcal Ensure Clear BID (M/W/F/Sun) /protein ) Provides kCal: 480 Provides Protein (gm) 16 Goal #1 Meet at least 75% of calorie and protein needs via PO and ONS intakes Anticipated Discharge Needs: Cardiac diet Follow-Up By: 11/23/18 Additional Comments Follow for PO and ONS intakes
--- NOTE | 2018-11-23 14:03 | Progress Note ---
Assessment and Plan 1. ESRD: Continue hemodialysis three times a week, TTS schedule. 2. FEN: Hyperkalemia, improved. Suspected volume overload, UF with HD as tolerated. Monitor lytes. 3. A.fib with RVR: Rate controlled. 4. DM type 2. 5. Chronic pleural effusion: Followed by pulmonary. 6. Anemia: Epogen with HD. 7. PAD. Subjective Date of service: 11/23/18 Interval history: Patient was seen an examined at the bedside. Doing ok. Objective - Vital Signs Vital signs: Vital Signs - 12hr 11/23/18 11/23/18 11/23/18 04:00 05:45 07:40 Temperature 98.4 F 98.0 F Pulse Rate 84 79 70 Pulse Rate [ Bilateral Throughout] Pulse Rate [ From Monitor] Pulse Rate [ Right Radial] Respiratory 16 16 Rate Respiratory Rate [Bilateral Throughout] Blood Pressure 149/106 149/106 146/117 Blood Pressure [Right] O2 Sat by Pulse 96 99 Oximetry 11/23/18 11/23/18 11/23/18 07:46 07:53 08:26 Temperature 98.0 F 98.0 F Pulse Rate 67 75 Pulse Rate [ Bilateral Throughout] Pulse Rate [ From Monitor] Pulse Rate [ Right Radial] Respiratory 18 18 Rate Respiratory Rate [Bilateral Throughout] Blood Pressure 148/103 Blood Pressure 148/103 [Right] O2 Sat by Pulse 100 100 Oximetry 11/23/18 11/23/18 11/23/18 08:28 08:38 10:00 Temperature Pulse Rate Pulse Rate [ 65 60 Bilateral Throughout] Pulse Rate [ 60 From Monitor] Pulse Rate [ 60 Right Radial] Respiratory 16 Rate Respiratory 16 16 Rate [Bilateral Throughout] Blood Pressure Blood Pressure [Right] O2 Sat by Pulse 100 Oximetry 11/23/18 11/23/18 11/23/18 10:28 10:29 13:13 Temperature 98.0 F Pulse Rate 75 Pulse Rate [ Bilateral Throughout] Pulse Rate [ From Monitor] Pulse Rate [ Right Radial] Respiratory 18 Rate Respiratory Rate [Bilateral Throughout] Blood Pressure 148/103 148/103 126/97 Blood Pressure [Right] O2 Sat by Pulse 97 Oximetry - General Appearance General appearance: well-developed, appears stated age, other (no distress, R IJ tunnel catheter) EENT: ATNC, PERRL, mucous membranes moist, hearing intact, vision intact Neck: supple Respiratory: Present: Clear to Ascultation Cardiology: irregularly irregular, S1S2, no murmurs Gastrointestinal: normoactive bowel sounds, no tenderness, no distended Integumentary: warm and dry Neurologic: no focal deficit, no asterixis, alert and oriented x3 Musculoskeletal: other (no edema, R IJ tunnel catheter) - Lab 11/21/18 08:18 11/22/18 08:32 Most recent lab results Calcium 8.4 mg/dL (8.4-10.2) 11/22/18 08:32 Medications & Allergies - Medications Allergies/Adverse Reactions: Allergies aspirin Allergy (Verified 03/16/17 01:25) Unknown stomach cramps pork derived (porcine) Allergy (Verified 03/16/17 01:27) Rash venom-honey bee [bee venom (honey bee)] Allergy (Verified 03/16/17 01:27) Anaphylaxis Pork/Porcine Containing Products Adverse Reaction (Severe, Verified 02/13/17 09:31) Nausea,VOMITING Home Medications: Home Medications Medication Instructions Recorded Confirmed Last Taken Type Acetaminophen [Acetaminophen TAB] 650 mg PO Q4H PRN tablet 05/05/18 11/20/18 09/21/18 Rx Apixaban [Eliquis] 2.5 mg PO Q12HR #60 tablet 09/05/18 11/20/18 09/21/18 Rx AtorvaSTATin [Lipitor] 40 mg PO QHS #30 tablet 09/05/18 11/20/18 09/21/18 Rx Epoetin Prashant 10,000 Unit [Procrit] 10,000 unit SUB-Q KATERYNA PRN #30 vial 09/05/18 11/20/18 09/21/18 Rx FLUoxetine HCL [Fluoxetine HCl] 40 mg PO QDAY #30 capsule 09/05/18 11/20/18 09/21/18 Rx Famotidine [Pepcid] 10 mg PO BID #15 tablet 09/05/18 11/20/18 09/21/18 Rx Fe Fumarate/FA/Mv, Min Comb#15 1 each PO QDAY #30 capsule 09/05/18 11/20/18 09/21/18 Rx [Hemocyte Plus] ISOSORBIDE MONOnitrate [Imdur ER] 30 mg PO QDAY #30 tablet 09/05/18 11/20/18 09/21/18 Rx Losartan [Cozaar] 100 mg PO QDAY 30 Days tablet 09/05/18 11/20/18 09/21/18 Rx Metoprolol Xl [Metoprolol 100 mg PO QDAY #30 tablet 09/05/18 11/20/18 09/21/18 Rx SUCCINATE ER TAB] Polyethylene Glycol 3350 [Miralax 17 gm PO QDAY PRN powd.pack 09/05/18 11/20/18 09/21/18 Rx 3350] Sennosides/Docusate [Senokot S] 1 tab PO BID tablet 09/05/18 11/20/18 09/21/18 Rx amLODIPine [Norvasc] 10 mg PO DAILY #30 tablet 09/05/18 11/20/18 09/21/18 Rx hydrALAZINE [Apresoline TAB] 50 mg PO BID 11/06/18 11/20/18 Unknown History Mag Hydrox/Aluminum Hyd/Simeth 355 ml PO DAILY PRN 15 Days 11/08/18 11/20/18 Unknown Rx [Maalox Advanced Suspension] oral.susp Active Medications: Generic Name Dose Route Start Last Admin Trade Name Freq PRN Reason Stop Dose Admin Acetaminophen 650 mg 11/20/18 02:09 Tylenol PO Q4H PRN Pain MILD(1-3)/Fever >100.5/DOUGLAS Albuterol 2.5 mg 11/20/18 22:12 Proventil IH Q4HRT PRN Shortness Of Breath Amlodipine Besylate 10 mg 11/20/18 15:00 11/23/18 10:29 Norvasc PO 10 mg DAILY BEAN Administration Arformoterol Tartrate 15 mcg 11/20/18 09:45 11/23/18 08:28 Brovana Nebu IH Not Given Q12HRT BEAN Atorvastatin Calcium 40 mg 11/20/18 22:00 11/22/18 22:27 Lipitor PO 40 mg QHS BEAN Administration Budesonide 0.5 mg 11/20/18 09:45 11/23/18 08:28 Pulmicort IH Not Given Q12HRT BEAN Epoetin Prashant 10,000 unit 11/22/18 09:20 Procrit SUB-Q KATERYNA PRN hemodialysis Famotidine 10 mg 11/20/18 10:00 11/23/18 10:29 Pepcid PO 10 mg BID BEAN Administration Fluoxetine HCl 40 mg 11/20/18 10:00 11/23/18 10:28 Prozac PO 40 mg QDAY BEAN Administration Hydralazine HCl 20 mg 11/20/18 18:27 Apresoline IV Q4HR PRN SBP>160 or DBP>110 Sodium Chloride 100 mls @ 999 mls/hr 11/21/18 07:38 Nacl 0.9% IV KATERYNA PRN Hypotension Isosorbide Mononitrate 30 mg 11/20/18 15:00 11/23/18 10:28 Imdur PO 30 mg DAILY BEAN Administration Metoprolol Tartrate 25 mg 11/20/18 11:00 11/23/18 11:44 Lopressor PO 25 mg Q6HR BEAN Administration Morphine Sulfate 2 mg 11/20/18 15:44 11/23/18 11:43 Morphine IV 2 mg Q4H PRN Administration Pain, Moderate (4-6) Ondansetron HCl 4 mg 11/20/18 02:09 Zofran IV Q8H PRN Nausea And Vomiting Polyethylene Glycol 17 gm 11/20/18 06:34 Miralax 3350 PO QDAY PRN Constipation Senna/Docusate Sodium 1 tab 11/20/18 10:00 11/23/18 10:31 Senokot S PO Not Given BID BEAN Sodium Chloride 10 ml 11/20/18 10:00 11/23/18 10:30 Sodium Chloride Flush Syringe 10 Ml IV 10 ml BID BEAN Administration Sodium Chloride 10 ml 11/20/18 02:09 11/20/18 17:30 Sodium Chloride Flush Syringe 10 Ml IV 10 ml PRN PRN Administration LINE FLUSH
[2018-11-24] MEDS: LOPRESSOR PO SCH ×5 (01:19→23:15)
[2018-11-24] MEDS: MORPHINE IV PRN ×5 (02:07→19:57)
[2018-11-24] MEDS: SODIUM CHLORIDE FLUSH SYRINGE 10 ML IV PRN (05:57)
[2018-11-24] MEDS: SENOKOT S PO SCH ×2 (10:10→21:20)
[2018-11-24] MEDS: PEPCID PO SCH ×2 (10:10→21:20)
[2018-11-24] MEDS: SODIUM CHLORIDE FLUSH SYRINGE 10 ML IV SCH ×2 (10:11→21:22)
--- NOTE | 2018-11-24 10:20 | Progress Note ---
Assessment and Plan Assessment and plan: Cole rader with RVR Chest pain Chronically elevated troponin Coronary artery disease CHF, Chronic, systolic Hypertension End-stage renal disease on dialysis PTSD Left subconjunctival hemorrhage Thrombocytopenia Hyperkalemia,resolved large left pleural effusion Plan Admitted to medicine Off cardizem drip, now on oral meds Cardiology following Nephrology following patient recently treated for pneumonia For thoracentesis of large left pleural effusion on Mon. I discussed with Pulm earlier. Eliquis on hold Continue appropriate outpatient medications History Interval history: No shortness of breath currently No more chest pain Hospitalist Physical - Physical exam Narrative exam: Gen: Not in acute distress, lying in bed, HEENT: Normocephalic, atraumatic Neck: supple, no JVD Heart: S1 and S2 irreg, no murmurs, rubs or gallop Lungs: Clear, Decreased breath sounds on left base, no crackles, no wheeze Abd: soft, non tender, non distended, normal BS Ext: No edema, no clubbing, no cyanosis, left partial forearm amputated Neuro: Awake,alert, oriented x 3, moves all ext Psych:Normal mood - Constitutional Vitals: Temp Pulse Resp BP Pulse Ox 97.7 F 60 18 162/113 98 11/24/18 07:20 11/24/18 05:54 11/24/18 07:20 11/24/18 07:20 11/24/18 05:08 General appearance: Present: no acute distress Results - Labs CBC & Chem 7: 11/26/18 04:54 11/26/18 04:54 Labs: Laboratory Last Values WBC 5.2 K/mm3 (4.5-11.0) 11/21/18 08:18 RBC 2.71 M/mm3 (3.65-5.03) L 11/21/18 08:18 Hgb 9.0 gm/dl (11.8-15.2) L 11/21/18 08:18 Hct 26.8 % (35.5-45.6) L 11/21/18 08:18 MCV 99 fl (84-94) H 11/21/18 08:18 MCH 33 pg (28-32) H 11/21/18 08:18 MCHC 34 % (32-34) 11/21/18 08:18 RDW 15.6 % (13.2-15.2) H 11/21/18 08:18 Plt Count 93 K/mm3 (140-440) L 11/21/18 08:18 Lymph % (Auto) 14.9 % (13.4-35.0) 11/20/18 03:11 [place] % (Auto) 4.0 % (0.0-7.3) 11/20/18 03:11 Eos % (Auto) 0.3 % (0.0-4.3) 11/20/18 03:11 Baso % (Auto) 0.5 % (0.0-1.8) 11/20/18 03:11 Lymph # 0.6 K/mm3 (1.2-5.4) L 11/20/18 03:11 [place] # 0.2 K/mm3 (0.0-0.8) 11/20/18 03:11 Eos # 0.0 K/mm3 (0.0-0.4) 11/20/18 03:11 Baso # 0.0 K/mm3 (0.0-0.1) 11/20/18 03:11 Seg Neutrophils % 80.3 % (40.0-70.0) H 11/20/18 03:11 Seg Neutrophils # 3.1 K/mm3 (1.8-7.7) 11/20/18 03:11 PT 19.0 Sec. (12.2-14.9) H 11/20/18 00:17 INR 1.49 (0.87-1.13) H 11/20/18 00:17 APTT 36.1 Sec. (24.2-36.6) 11/20/18 00:17 Sodium 141 mmol/L (137-145) 11/22/18 08:32 Potassium 4.7 mmol/L (3.6-5.0) 11/22/18 08:32 Chloride 98.5 mmol/L (98-107) 11/22/18 08:32 Carbon Dioxide 28 mmol/L (22-30) 11/22/18 08:32 19 mmol/L 11/22/18 08:32 BUN 43 mg/dL (9-20) H 11/22/18 08:32 5.5 mg/dL (0.8-1.5) H 11/22/18 08:32 Estimated GFR 12 ml/min 11/22/18 08:32 8 % 11/22/18 08:32 Glucose 85 mg/dL (75-100) 11/22/18 08:32 Calcium 8.4 mg/dL (8.4-10.2) 11/22/18 08:32 108 units/L (55-170) 11/20/18 09:29 CK-MB (CK-2) 4.6 ng/mL (0.0-4.0) H 11/20/18 09:29 CK-MB (CK-2) Rel Index 4.2 (0-4) H 11/20/18 09:29 0.219 ng/mL (0.00-0.029) H* 11/20/18 09:29 NT-Pro-B Natriuret Pep > 80019 pg/mL (0-900) H 11/20/18 00:17 Triglycerides 83 mg/dL (2-149) 11/20/18 00:17 Cholesterol 94 mg/dL (50-199) 11/20/18 00:17 32 mg/dL (50-130) L 11/20/18 00:17 50 mg/dL (40-59) 11/20/18 00:17 1.88 % 11/20/18 00:17 Hepatitis A IgM Ab Non-reactive (NonReactive) 11/21/18 13:18 Hep Bs Antigen Non-reactive (Negative) 11/21/18 13:18 Hep B Core IgM Ab Non-reactive (NonReactive) 11/21/18 13:18 Reactive (NonReactive) A 11/21/18 13:18 Active Medications - Current Medications Current Medications: Generic Name Dose Route Start Last Admin Trade Name Freq PRN Reason Stop Dose Admin Acetaminophen 650 mg 11/20/18 02:09 Tylenol PO Q4H PRN Pain MILD(1-3)/Fever >100.5/DOUGLAS Albuterol 2.5 mg 11/20/18 22:12 Proventil IH Q4HRT PRN Shortness Of Breath Amlodipine Besylate 10 mg 11/20/18 15:00 11/23/18 10:29 Norvasc PO 10 mg DAILY BEAN Administration Arformoterol Tartrate 15 mcg 11/20/18 09:45 11/23/18 20:13 Brovana Nebu IH 15 mcg Q12HRT BEAN Administration Atorvastatin Calcium 40 mg 11/20/18 22:00 11/23/18 21:56 Lipitor PO 40 mg QHS BEAN Administration Budesonide 0.5 mg 11/20/18 09:45 11/23/18 20:13 Pulmicort IH 0.5 mg Q12HRT BEAN Administration Epoetin Prashant 10,000 unit 11/22/18 09:20 Procrit SUB-Q KATERYNA PRN hemodialysis Famotidine 10 mg 11/20/18 10:00 11/23/18 21:56 Pepcid PO 10 mg BID BEAN Administration Fluoxetine HCl 40 mg 11/20/18 10:00 11/23/18 10:28 Prozac PO 40 mg QDAY BEAN Administration Hydralazine HCl 20 mg 11/20/18 18:27 Apresoline IV Q4HR PRN SBP>160 or DBP>110 Sodium Chloride 100 mls @ 999 mls/hr 11/21/18 07:38 Nacl 0.9% IV KATERYNA PRN Hypotension Isosorbide Mononitrate 30 mg 11/20/18 15:00 11/23/18 10:28 Imdur PO 30 mg DAILY BEAN Administration Metoprolol Tartrate 25 mg 11/20/18 11:00 11/24/18 05:54 Lopressor PO 25 mg Q6HR BEAN Administration Morphine Sulfate 2 mg 11/20/18 15:44 11/24/18 08:45 Morphine IV 2 mg Q4H PRN Administration Pain, Moderate (4-6) Ondansetron HCl 4 mg 11/20/18 02:09 Zofran IV Q8H PRN Nausea And Vomiting Polyethylene Glycol 17 gm 11/20/18 06:34 Miralax 3350 PO QDAY PRN Constipation Senna/Docusate Sodium 1 tab 11/20/18 10:00 11/23/18 21:56 Senokot S PO 1 tab BID BEAN Administration Sodium Chloride 10 ml 11/20/18 10:00 11/23/18 21:56 Sodium Chloride Flush Syringe 10 Ml IV 10 ml BID BEAN Administration Sodium Chloride 10 ml 11/20/18 02:09 11/24/18 05:57 Sodium Chloride Flush Syringe 10 Ml IV 10 ml PRN PRN Administration LINE FLUSH Nutrition/Malnutrition Assess - Dietary Evaluation Nutrition/Malnutrition Findings: Nutrition Notes Start: 11/21/18 15:23 Freq: Status: Active Protocol: Document 11/23/18 15:51 RM (Rec: 11/23/18 16:01 RM [id number]) Nutrition Notes Initial or Follow up Reassessment Current Diagnosis Coronary Artery Disease, Hypertension,Heart Failure Other Pertinent Diagnosis PTSD, ESRD on HD, Pneu Current Diet Cardiac Labs/Tests K 4.7 Pertinent Medications Reviewed Height 5 ft 9 in Weight 51.4 kg [place] Body Weight (kg) 72.72 BMI 16.7 Subjective/Other Information Pt stated that he eats most of his meals and drinks the Ensure Clear but requested Regular diet. Statistical Assistant explained risk of elevated K and cardiac risk. Pt still requested Regular diet. Percent of energy/protein needs met: 83%/93% Burn Absent Trauma Absent #1 Nutrition Diagnosis Malnutrition Diagnosis Progress(for reassessment Continues documentation) Is patient on ventilator? No Is Patient Ambulatory and/or Out of Bed Yes REE-([facility]-ambulatory/OOB) [ 1643.694 NUTR.MSJOOB] Kcal/Kg value to use for calculation 37 Approximate Energy Requirements Using 1902 kcal/Kg Calculation Used for Recommendations Kcal/kg Additional Notes Protein Need: 67-72g (1.2-1.3g /kg) Fluid Needs: 1 ml/kcal Nutrition Intervention Change Diet Order: Regular Add Supplement/Snack (indicate name/kcal Ensure Clear BID (M/W/F/Sun) /protein ) Provides kCal: 480 Provides Protein (gm) 16 Goal #1 Continue to meet at least 75% of calorie and protein needs via PO and ONS intakes Anticipated Discharge Needs: Renal diet Follow-Up By: 11/25/18 Additional Comments Follow for PO and ONS intakes, K lab
[2018-11-24] MEDS: PROCRIT SUB-Q PRN (12:00)
--- NOTE | 2018-11-24 12:32 | Progress Note ---
Assessment and Plan - Patient Problems (1) Acute on chronic systolic heart failure Current Visit: Yes Status: Acute Plan to address problem: Continue medical therapy for chronic systolic heart failure, continue hemodialysis for fluid overload. Subjective Date of service: 11/24/18 Interval history: Patient is comfortable, no new cardiac complaints, currently undergoing hemodialysis. Objective Vital Signs Temp Pulse Pulse Resp Resp BP Pulse Ox 11/24/18 11:30 83 133/90 11/24/18 11:15 68 158/110 11/24/18 11:00 69 150/87 11/24/18 10:45 66 136/93 11/24/18 10:30 58 L 158/84 11/24/18 10:15 81 144/99 11/24/18 10:00 75 117/76 11/24/18 09:30 63 131/91 11/24/18 09:07 71 151/105 11/24/18 09:05 75 153/134 11/24/18 09:00 97.7 F 76 18 153/134 11/24/18 07:20 97.7 F 18 162/113 11/24/18 05:57 18 11/24/18 05:54 60 155/108 11/24/18 05:08 98.4 F 60 18 155/108 98 11/24/18 04:56 16 11/24/18 04:21 99 11/24/18 02:07 20 11/24/18 01:19 69 133/104 11/24/18 00:37 98.5 F 69 18 133/104 99 11/23/18 21:57 20 11/23/18 20:41 97.8 F 67 18 136/93 100 11/23/18 20:28 84 16 11/23/18 20:14 100 11/23/18 20:13 82 16 11/23/18 17:06 98.1 F 74 18 147/113 99 11/23/18 13:13 98.0 F 75 18 126/97 97 - Physical Examination General: No Apparent Distress HEENT: Positive: PERRL Neck: Positive: trachea midline Cardiac: Positive: Reg Rate and Rhythm Lungs: Positive: Decreased Breath Sounds Neuro: Positive: Grossly Intact, Weakness Abdomen: Positive: Soft Skin: Positive: Clear Extremities: Absent: edema - Imaging and Cardiology EKG: image reviewed
[2018-11-24] MEDS ORDERED: NACL 0.9 (PRIMING MACHINE ONLY DIALYSIS) MC ONE (12:57)
--- NOTE | 2018-11-24 15:46 | Progress Note ---
Assessment and Plan 1. ESRD: Continue hemodialysis three times a week, TTS schedule. HD today. 2. FEN: Hyperkalemia, improved. Suspected volume overload, UF with HD as tolerated. Monitor lytes. 3. A.fib with RVR: Rate controlled. 4. DM type 2. 5. Chronic pleural effusion: Followed by pulmonary. 6. Anemia: Epogen with HD. 7. PAD. Subjective Date of service: 11/24/18 Interval history: Patient was seen an examined at the bedside. Doing ok. Objective - Vital Signs Vital signs: Vital Signs - 12hr 11/24/18 11/24/18 11/24/18 04:21 04:56 05:08 Temperature 98.4 F Pulse Rate 60 Respiratory 16 18 Rate Blood Pressure 155/108 O2 Sat by Pulse 99 98 Oximetry 11/24/18 11/24/18 11/24/18 05:54 05:57 07:20 Temperature 97.7 F Pulse Rate 60 Respiratory 18 18 Rate Blood Pressure 155/108 162/113 O2 Sat by Pulse Oximetry 11/24/18 11/24/18 11/24/18 09:00 09:05 09:07 Temperature 97.7 F Pulse Rate 76 75 71 Respiratory 18 Rate Blood Pressure 153/134 153/134 151/105 O2 Sat by Pulse Oximetry 11/24/18 11/24/18 11/24/18 09:30 10:00 10:15 Temperature Pulse Rate 63 75 81 Respiratory Rate Blood Pressure 131/91 117/76 144/99 O2 Sat by Pulse Oximetry 11/24/18 11/24/18 11/24/18 10:30 10:45 11:00 Temperature Pulse Rate 58 L 66 69 Respiratory Rate Blood Pressure 158/84 136/93 150/87 O2 Sat by Pulse Oximetry 11/24/18 11/24/18 11:15 11:30 Temperature Pulse Rate 68 83 Respiratory Rate Blood Pressure 158/110 133/90 O2 Sat by Pulse Oximetry - General Appearance General appearance: well-developed, appears stated age, other (no distress, R IJ tunnel catheter) EENT: ATNC, PERRL, mucous membranes moist, hearing intact, vision intact Neck: supple Respiratory: Present: Clear to Ascultation, Decreased Breath Sounds (L base) Cardiology: irregularly irregular, S1S2, no murmurs Gastrointestinal: normoactive bowel sounds, no tenderness, no distended Integumentary: no rash, warm and dry Neurologic: no focal deficit, no asterixis, alert and oriented x3 Musculoskeletal: other (no edema, L forearm amputated) - Lab 11/21/18 08:18 11/22/18 08:32 Most recent lab results Calcium 8.4 mg/dL (8.4-10.2) 11/22/18 08:32 Medications & Allergies - Medications Allergies/Adverse Reactions: Allergies aspirin Allergy (Verified 03/16/17 01:25) Unknown stomach cramps pork derived (porcine) Allergy (Verified 03/16/17 01:27) Rash venom-honey bee [bee venom (honey bee)] Allergy (Verified 03/16/17 01:27) Anaphylaxis Pork/Porcine Containing Products Adverse Reaction (Severe, Verified 02/13/17 09:31) Nausea,VOMITING Home Medications: Home Medications Medication Instructions Recorded Confirmed Last Taken Type Acetaminophen [Acetaminophen TAB] 650 mg PO Q4H PRN tablet 05/05/18 11/20/18 09/21/18 Rx Apixaban [Eliquis] 2.5 mg PO Q12HR #60 tablet 09/05/18 11/20/18 09/21/18 Rx AtorvaSTATin [Lipitor] 40 mg PO QHS #30 tablet 09/05/18 11/20/18 09/21/18 Rx Epoetin Prashant 10,000 Unit [Procrit] 10,000 unit SUB-Q KATERYNA PRN #30 vial 09/05/18 11/20/18 09/21/18 Rx FLUoxetine HCL [Fluoxetine HCl] 40 mg PO QDAY #30 capsule 09/05/18 11/20/18 09/21/18 Rx Famotidine [Pepcid] 10 mg PO BID #15 tablet 09/05/18 11/20/18 09/21/18 Rx Fe Fumarate/FA/Mv, Min Comb#15 1 each PO QDAY #30 capsule 09/05/18 11/20/18 09/21/18 Rx [Hemocyte Plus] ISOSORBIDE MONOnitrate [Imdur ER] 30 mg PO QDAY #30 tablet 09/05/18 11/20/18 09/21/18 Rx Losartan [Cozaar] 100 mg PO QDAY 30 Days tablet 09/05/18 11/20/18 09/21/18 Rx Metoprolol Xl [Metoprolol 100 mg PO QDAY #30 tablet 09/05/18 11/20/18 09/21/18 Rx SUCCINATE ER TAB] Polyethylene Glycol 3350 [Miralax 17 gm PO QDAY PRN powd.pack 09/05/18 11/20/18 09/21/18 Rx 3350] Sennosides/Docusate [Senokot S] 1 tab PO BID tablet 09/05/18 11/20/18 09/21/18 Rx amLODIPine [Norvasc] 10 mg PO DAILY #30 tablet 09/05/18 11/20/18 09/21/18 Rx hydrALAZINE [Apresoline TAB] 50 mg PO BID 11/06/18 11/20/18 Unknown History Mag Hydrox/Aluminum Hyd/Simeth 355 ml PO DAILY PRN 15 Days 11/08/18 11/20/18 Unknown Rx [Maalox Advanced Suspension] oral.susp Active Medications: Generic Name Dose Route Start Last Admin Trade Name Freq PRN Reason Stop Dose Admin Acetaminophen 650 mg 11/20/18 02:09 Tylenol PO Q4H PRN Pain MILD(1-3)/Fever >100.5/DOUGLAS Albuterol 2.5 mg 11/20/18 22:12 Proventil IH Q4HRT PRN Shortness Of Breath Amlodipine Besylate 10 mg 11/20/18 15:00 11/23/18 10:29 Norvasc PO 10 mg DAILY BEAN Administration Arformoterol Tartrate 15 mcg 11/20/18 09:45 11/23/18 20:13 Brovana Nebu IH 15 mcg Q12HRT BEAN Administration Atorvastatin Calcium 40 mg 11/20/18 22:00 11/23/18 21:56 Lipitor PO 40 mg QHS BEAN Administration Budesonide 0.5 mg 11/20/18 09:45 11/23/18 20:13 Pulmicort IH 0.5 mg Q12HRT BEAN Administration Epoetin Prashant 10,000 unit 11/22/18 09:20 Procrit SUB-Q KATERYNA PRN hemodialysis Famotidine 10 mg 11/20/18 10:00 11/23/18 21:56 Pepcid PO 10 mg BID BEAN Administration Fluoxetine HCl 40 mg 11/20/18 10:00 11/23/18 10:28 Prozac PO 40 mg QDAY BEAN Administration Hydralazine HCl 20 mg 11/20/18 18:27 Apresoline IV Q4HR PRN SBP>160 or DBP>110 Sodium Chloride 100 mls @ 999 mls/hr 11/21/18 07:38 Nacl 0.9% IV KATERYNA PRN Hypotension Isosorbide Mononitrate 30 mg 11/20/18 15:00 11/23/18 10:28 Imdur PO 30 mg DAILY BEAN Administration Metoprolol Tartrate 25 mg 11/20/18 11:00 11/24/18 05:54 Lopressor PO 25 mg Q6HR BEAN Administration Morphine Sulfate 2 mg 11/20/18 15:44 11/24/18 08:45 Morphine IV 2 mg Q4H PRN Administration Pain, Moderate (4-6) Ondansetron HCl 4 mg 11/20/18 02:09 Zofran IV Q8H PRN Nausea And Vomiting Polyethylene Glycol 17 gm 11/20/18 06:34 Miralax 3350 PO QDAY PRN Constipation Senna/Docusate Sodium 1 tab 11/20/18 10:00 11/23/18 21:56 Senokot S PO 1 tab BID BEAN Administration Sodium Chloride 10 ml 11/20/18 10:00 11/23/18 21:56 Sodium Chloride Flush Syringe 10 Ml IV 10 ml BID BEAN Administration Sodium Chloride 10 ml 11/20/18 02:09 11/24/18 05:57 Sodium Chloride Flush Syringe 10 Ml IV 10 ml PRN PRN Administration LINE FLUSH
[2018-11-24] MEDS: PULMICORT IH SCH ×2 (16:09→20:52)
[2018-11-24] MEDS: BROVANA NEBU IH SCH ×2 (16:09→20:52)
[2018-11-24] MEDS: IMDUR PO SCH (16:36)
[2018-11-24] MEDS: NORVASC PO SCH (16:37)
[2018-11-24] MEDS: PROzac PO SCH (16:37)
[2018-11-24] MEDS ORDERED: FLEXERIL PO ONE (22:40)
[2018-11-25] MEDS: MORPHINE IV PRN ×5 (01:37→20:32)
[2018-11-25] MEDS: LOPRESSOR PO SCH ×4 (04:43→17:26)
[2018-11-25] MEDS: BROVANA NEBU IH SCH ×2 (08:16→20:58)
[2018-11-25] MEDS: PULMICORT IH SCH ×2 (08:16→20:58)
[2018-11-25] MEDS: SENOKOT S PO SCH ×2 (10:37→20:32)
[2018-11-25] MEDS: IMDUR PO SCH (10:37)
[2018-11-25] MEDS: PROzac PO SCH (10:37)
[2018-11-25] MEDS: NORVASC PO SCH (10:37)
[2018-11-25] MEDS: PEPCID PO SCH ×2 (10:37→20:32)
[2018-11-25] MEDS: SODIUM CHLORIDE FLUSH SYRINGE 10 ML IV SCH (10:38)
--- NOTE | 2018-11-25 13:01 | Progress Note ---
Assessment and Plan - Patient Problems (1) Acute on chronic systolic heart failure Current Visit: Yes Status: Acute Plan to address problem: Continue medical therapy for chronic systolic heart failure, continue hemodialysis for fluid overload. Subjective Date of service: 11/25/18 Interval history: Patient is comfortable, no new cardiac complaints. Objective Vital Signs Temp Pulse Pulse Resp Resp BP BP 11/25/18 08:24 82 16 11/25/18 08:20 53 L 18 142/103 11/25/18 08:17 11/25/18 08:16 78 16 11/25/18 04:45 20 11/25/18 04:43 70 154/108 11/25/18 04:02 98.1 F 22 154/108 11/25/18 04:01 70 11/25/18 01:39 97.5 F L 70 20 132/52 11/25/18 01:37 20 11/25/18 01:17 70 11/24/18 23:15 69 128/96 11/24/18 22:21 20 11/24/18 21:21 18 11/24/18 21:05 92 H 20 11/24/18 20:54 11/24/18 20:53 82 20 11/24/18 19:59 98.0 F 69 18 128/96 11/24/18 16:48 97.7 F 78 18 174/98 11/24/18 16:12 98.1 F 18 154/116 Pulse Ox 11/25/18 08:24 11/25/18 08:20 99 11/25/18 08:17 96 11/25/18 08:16 11/25/18 04:45 11/25/18 04:43 11/25/18 04:02 11/25/18 04:01 99 11/25/18 01:39 11/25/18 01:37 11/25/18 01:17 100 11/24/18 23:15 11/24/18 22:21 11/24/18 21:21 11/24/18 21:05 11/24/18 20:54 99 11/24/18 20:53 11/24/18 19:59 100 11/24/18 16:48 11/24/18 16:12 - Physical Examination General: No Apparent Distress HEENT: Positive: PERRL Neck: Positive: trachea midline Cardiac: Positive: Reg Rate and Rhythm Lungs: Positive: Decreased Breath Sounds Neuro: Positive: Grossly Intact, Weakness Abdomen: Positive: Soft Skin: Positive: Clear Extremities: Present: Other (left arm below the elbow amputation). Absent: edema - Imaging and Cardiology EKG: image reviewed
--- NOTE | 2018-11-25 13:05 | Progress Note ---
Assessment and Plan 1. ESRD: Continue hemodialysis three times a week, TTS schedule. 2. FEN: Hyperkalemia, improved. Suspected volume overload, UF with HD as tolerated. Monitor lytes. 3. A.fib with RVR: Rate controlled. 4. DM type 2. 5. Chronic pleural effusion: US guided Thoracentesis tomorrow. 6. Anemia: Epogen with HD. 7. PAD. Subjective Date of service: 11/25/18 Interval history: Patient was seen an examined at the bedside. Doing ok. Objective - Vital Signs Vital signs: Vital Signs - 12hr 11/25/18 11/25/18 11/25/18 01:17 01:37 01:39 Temperature 97.5 F L Pulse Rate 70 70 Pulse Rate [ Bilateral Throughout] Respiratory 20 20 Rate Respiratory Rate [Bilateral Throughout] Blood Pressure Blood Pressure 132/52 [Right] O2 Sat by Pulse 100 Oximetry 11/25/18 11/25/18 11/25/18 04:01 04:02 04:43 Temperature 98.1 F Pulse Rate 70 70 Pulse Rate [ Bilateral Throughout] Respiratory 22 Rate Respiratory Rate [Bilateral Throughout] Blood Pressure 154/108 154/108 Blood Pressure [Right] O2 Sat by Pulse 99 Oximetry 11/25/18 11/25/18 11/25/18 04:45 08:16 08:17 Temperature Pulse Rate Pulse Rate [ 78 Bilateral Throughout] Respiratory 20 Rate Respiratory 16 Rate [Bilateral Throughout] Blood Pressure Blood Pressure [Right] O2 Sat by Pulse 96 Oximetry 11/25/18 11/25/18 11/25/18 08:20 08:24 12:33 Temperature 98.2 F Pulse Rate 53 L 56 L Pulse Rate [ 82 Bilateral Throughout] Respiratory 18 18 Rate Respiratory 16 Rate [Bilateral Throughout] Blood Pressure 142/103 127/93 Blood Pressure [Right] O2 Sat by Pulse 99 100 Oximetry - General Appearance General appearance: well-developed, appears stated age, other (no distress, R IJ tunnel catheter) EENT: ATNC, PERRL, hearing intact, vision intact Neck: supple Respiratory: Present: Clear to Ascultation, Decreased Breath Sounds (L base) Cardiology: irregularly irregular, S1S2, no murmurs Gastrointestinal: normoactive bowel sounds, no tenderness, no distended Integumentary: no rash, warm and dry Neurologic: no focal deficit, no asterixis, alert and oriented x3 Musculoskeletal: other (no edema, L forearm amputated) - Lab 11/21/18 08:18 11/22/18 08:32 Most recent lab results Calcium 8.4 mg/dL (8.4-10.2) 11/22/18 08:32 Medications & Allergies - Medications Allergies/Adverse Reactions: Allergies aspirin Allergy (Verified 03/16/17 01:25) Unknown stomach cramps pork derived (porcine) Allergy (Verified 03/16/17 01:27) Rash venom-honey bee [bee venom (honey bee)] Allergy (Verified 03/16/17 01:27) Anaphylaxis Pork/Porcine Containing Products Adverse Reaction (Severe, Verified 02/13/17 09:31) Nausea,VOMITING Home Medications: Home Medications Medication Instructions Recorded Confirmed Last Taken Type Acetaminophen [Acetaminophen TAB] 650 mg PO Q4H PRN tablet 05/05/18 11/20/18 09/21/18 Rx Apixaban [Eliquis] 2.5 mg PO Q12HR #60 tablet 09/05/18 11/20/18 09/21/18 Rx AtorvaSTATin [Lipitor] 40 mg PO QHS #30 tablet 09/05/18 11/20/18 09/21/18 Rx Epoetin Prashant 10,000 Unit [Procrit] 10,000 unit SUB-Q KATERYNA PRN #30 vial 09/05/18 11/20/18 09/21/18 Rx FLUoxetine HCL [Fluoxetine HCl] 40 mg PO QDAY #30 capsule 09/05/18 11/20/18 09/21/18 Rx Famotidine [Pepcid] 10 mg PO BID #15 tablet 09/05/18 11/20/18 09/21/18 Rx Fe Fumarate/FA/Mv, Min Comb#15 1 each PO QDAY #30 capsule 09/05/18 11/20/18 09/21/18 Rx [Hemocyte Plus] ISOSORBIDE MONOnitrate [Imdur ER] 30 mg PO QDAY #30 tablet 09/05/18 11/20/18 09/21/18 Rx Losartan [Cozaar] 100 mg PO QDAY 30 Days tablet 09/05/18 11/20/18 09/21/18 Rx Metoprolol Xl [Metoprolol 100 mg PO QDAY #30 tablet 09/05/18 11/20/18 09/21/18 Rx SUCCINATE ER TAB] Polyethylene Glycol 3350 [Miralax 17 gm PO QDAY PRN powd.pack 09/05/18 11/20/18 09/21/18 Rx 3350] Sennosides/Docusate [Senokot S] 1 tab PO BID tablet 09/05/18 11/20/18 09/21/18 Rx amLODIPine [Norvasc] 10 mg PO DAILY #30 tablet 09/05/18 11/20/18 09/21/18 Rx hydrALAZINE [Apresoline TAB] 50 mg PO BID 11/06/18 11/20/18 Unknown History Mag Hydrox/Aluminum Hyd/Simeth 355 ml PO DAILY PRN 15 Days 11/08/18 11/20/18 Unknown Rx [Maalox Advanced Suspension] oral.susp Active Medications: Generic Name Dose Route Start Last Admin Trade Name Freq PRN Reason Stop Dose Admin Acetaminophen 650 mg 11/20/18 02:09 11/24/18 21:21 Tylenol PO 650 mg Q4H PRN Administration Pain MILD(1-3)/Fever >100.5/DOUGLAS Albuterol 2.5 mg 11/20/18 22:12 Proventil IH Q4HRT PRN Shortness Of Breath Amlodipine Besylate 10 mg 11/20/18 15:00 11/25/18 10:37 Norvasc PO 10 mg DAILY BEAN Administration Arformoterol Tartrate 15 mcg 11/20/18 09:45 11/25/18 08:16 Brovana Nebu IH 15 mcg Q12HRT BEAN Administration Atorvastatin Calcium 40 mg 11/20/18 22:00 11/24/18 21:20 Lipitor PO 40 mg QHS BEAN Administration Budesonide 0.5 mg 11/20/18 09:45 11/25/18 08:16 Pulmicort IH 0.5 mg Q12HRT BEAN Administration Epoetin Prashant 10,000 unit 11/22/18 09:20 11/24/18 12:00 Procrit SUB-Q 10,000 unit KATERYNA PRN Administration hemodialysis Famotidine 10 mg 11/20/18 10:00 11/25/18 10:37 Pepcid PO 10 mg BID BEAN Administration Fluoxetine HCl 40 mg 11/20/18 10:00 11/25/18 10:37 Prozac PO 40 mg QDAY BEAN Administration Hydralazine HCl 20 mg 11/20/18 18:27 Apresoline IV Q4HR PRN SBP>160 or DBP>110 Sodium Chloride 100 mls @ 999 mls/hr 11/21/18 07:38 Nacl 0.9% IV KATERYNA PRN Hypotension Isosorbide Mononitrate 30 mg 11/20/18 15:00 11/25/18 10:37 Imdur PO 30 mg DAILY BEAN Administration Metoprolol Tartrate 25 mg 11/20/18 11:00 11/25/18 06:59 Lopressor PO Not Given Q6HR BEAN Morphine Sulfate 2 mg 11/20/18 15:44 11/25/18 10:36 Morphine IV 2 mg Q4H PRN Administration Pain, Moderate (4-6) Ondansetron HCl 4 mg 11/20/18 02:09 Zofran IV Q8H PRN Nausea And Vomiting Polyethylene Glycol 17 gm 11/20/18 06:34 Miralax 3350 PO QDAY PRN Constipation Senna/Docusate Sodium 1 tab 11/20/18 10:00 11/25/18 10:37 Senokot S PO 1 tab BID BEAN Administration Sodium Chloride 10 ml 11/20/18 10:00 11/25/18 10:38 Sodium Chloride Flush Syringe 10 Ml IV 10 ml BID BEAN Administration Sodium Chloride 10 ml 11/20/18 02:09 11/24/18 05:57 Sodium Chloride Flush Syringe 10 Ml IV 10 ml PRN PRN Administration LINE FLUSH
--- NOTE | 2018-11-25 13:54 | Progress Note ---
Assessment and Plan Assessment and plan: Cole rader with RVR Chest pain Chronically elevated troponin Coronary artery disease CHF, Chronic, systolic Hypertension End-stage renal disease on dialysis PTSD Left subconjunctival hemorrhage Thrombocytopenia Hyperkalemia,resolved large left pleural effusion Plan Admitted to medicine Off cardizem drip, now on oral meds Cardiology following Nephrology following patient recently treated for pneumonia For thoracentesis of large left pleural eff Mon. I discussed with Pulm earlier. Eliquis on hold Continue appropriate outpatient medications DVT prophylaxis History Interval history: No shortness of breath currently No more chest pain Hospitalist Physical - Physical exam Narrative exam: Gen: Not in acute distress, lying in bed, HEENT: Normocephalic, atraumatic Neck: supple, no JVD Heart: S1 and S2 irreg, no murmurs, rubs or gallop Lungs: Clear, Decreased breath sounds on left base, no crackles, no wheeze Abd: soft, non tender, non distended, normal BS Ext: No edema, no clubbing, no cyanosis, left partial forearm amputated Neuro: Awake,alert, oriented x 3, moves all ext Psych:Normal mood - Constitutional Vitals: Temp Pulse Resp BP Pulse Ox 98.2 F 56 L 18 127/93 100 11/25/18 12:33 11/25/18 12:33 11/25/18 12:33 11/25/18 12:33 11/25/18 12:33 General appearance: Present: no acute distress Results - Labs CBC & Chem 7: 11/21/18 08:18 11/22/18 08:32 Labs: Laboratory Last Values WBC 5.2 K/mm3 (4.5-11.0) 11/21/18 08:18 RBC 2.71 M/mm3 (3.65-5.03) L 11/21/18 08:18 Hgb 9.0 gm/dl (11.8-15.2) L 11/21/18 08:18 Hct 26.8 % (35.5-45.6) L 11/21/18 08:18 MCV 99 fl (84-94) H 11/21/18 08:18 MCH 33 pg (28-32) H 11/21/18 08:18 MCHC 34 % (32-34) 11/21/18 08:18 RDW 15.6 % (13.2-15.2) H 11/21/18 08:18 Plt Count 93 K/mm3 (140-440) L 11/21/18 08:18 Lymph % (Auto) 14.9 % (13.4-35.0) 11/20/18 03:11 [place] % (Auto) 4.0 % (0.0-7.3) 11/20/18 03:11 Eos % (Auto) 0.3 % (0.0-4.3) 11/20/18 03:11 Baso % (Auto) 0.5 % (0.0-1.8) 11/20/18 03:11 Lymph # 0.6 K/mm3 (1.2-5.4) L 11/20/18 03:11 [place] # 0.2 K/mm3 (0.0-0.8) 11/20/18 03:11 Eos # 0.0 K/mm3 (0.0-0.4) 11/20/18 03:11 Baso # 0.0 K/mm3 (0.0-0.1) 11/20/18 03:11 Seg Neutrophils % 80.3 % (40.0-70.0) H 11/20/18 03:11 Seg Neutrophils # 3.1 K/mm3 (1.8-7.7) 11/20/18 03:11 PT 19.0 Sec. (12.2-14.9) H 11/20/18 00:17 INR 1.49 (0.87-1.13) H 11/20/18 00:17 APTT 36.1 Sec. (24.2-36.6) 11/20/18 00:17 Sodium 141 mmol/L (137-145) 11/22/18 08:32 Potassium 4.7 mmol/L (3.6-5.0) 11/22/18 08:32 Chloride 98.5 mmol/L (98-107) 11/22/18 08:32 Carbon Dioxide 28 mmol/L (22-30) 11/22/18 08:32 19 mmol/L 11/22/18 08:32 BUN 43 mg/dL (9-20) H 11/22/18 08:32 5.5 mg/dL (0.8-1.5) H 11/22/18 08:32 Estimated GFR 12 ml/min 11/22/18 08:32 8 % 11/22/18 08:32 Glucose 85 mg/dL (75-100) 11/22/18 08:32 POC Glucose 96 (70-105) 11/25/18 11:39 Calcium 8.4 mg/dL (8.4-10.2) 11/22/18 08:32 108 units/L (55-170) 11/20/18 09:29 CK-MB (CK-2) 4.6 ng/mL (0.0-4.0) H 11/20/18 09:29 CK-MB (CK-2) Rel Index 4.2 (0-4) H 11/20/18 09:29 0.219 ng/mL (0.00-0.029) H* 11/20/18 09:29 NT-Pro-B Natriuret Pep > 88618 pg/mL (0-900) H 11/20/18 00:17 Triglycerides 83 mg/dL (2-149) 11/20/18 00:17 Cholesterol 94 mg/dL (50-199) 11/20/18 00:17 32 mg/dL (50-130) L 11/20/18 00:17 50 mg/dL (40-59) 11/20/18 00:17 1.88 % 11/20/18 00:17 Hepatitis A IgM Ab Non-reactive (NonReactive) 11/21/18 13:18 Hep Bs Antigen Non-reactive (Negative) 11/21/18 13:18 Hep B Core IgM Ab Non-reactive (NonReactive) 11/21/18 13:18 Reactive (NonReactive) A 11/21/18 13:18 Active Medications - Current Medications Current Medications: Generic Name Dose Route Start Last Admin Trade Name Freq PRN Reason Stop Dose Admin Acetaminophen 650 mg 11/20/18 02:09 11/24/18 21:21 Tylenol PO 650 mg Q4H PRN Administration Pain MILD(1-3)/Fever >100.5/DOUGLAS Albuterol 2.5 mg 11/20/18 22:12 Proventil IH Q4HRT PRN Shortness Of Breath Amlodipine Besylate 10 mg 11/20/18 15:00 11/25/18 10:37 Norvasc PO 10 mg DAILY BEAN Administration Arformoterol Tartrate 15 mcg 11/20/18 09:45 11/25/18 08:16 Brovana Nebu IH 15 mcg Q12HRT BEAN Administration Atorvastatin Calcium 40 mg 11/20/18 22:00 11/24/18 21:20 Lipitor PO 40 mg QHS BEAN Administration Budesonide 0.5 mg 11/20/18 09:45 11/25/18 08:16 Pulmicort IH 0.5 mg Q12HRT BEAN Administration Epoetin Prashant 10,000 unit 11/22/18 09:20 11/24/18 12:00 Procrit SUB-Q 10,000 unit KATERYNA PRN Administration hemodialysis Famotidine 10 mg 11/20/18 10:00 11/25/18 10:37 Pepcid PO 10 mg BID BEAN Administration Fluoxetine HCl 40 mg 11/20/18 10:00 11/25/18 10:37 Prozac PO 40 mg QDAY BEAN Administration Hydralazine HCl 20 mg 11/20/18 18:27 Apresoline IV Q4HR PRN SBP>160 or DBP>110 Sodium Chloride 100 mls @ 999 mls/hr 11/21/18 07:38 Nacl 0.9% IV KATERYNA PRN Hypotension Isosorbide Mononitrate 30 mg 11/20/18 15:00 11/25/18 10:37 Imdur PO 30 mg DAILY BEAN Administration Metoprolol Tartrate 25 mg 11/20/18 11:00 11/25/18 06:59 Lopressor PO Not Given Q6HR [facility] Morphine Sulfate 2 mg 11/20/18 15:44 11/25/18 10:36 Morphine IV 2 mg Q4H PRN Administration Pain, Moderate (4-6) Ondansetron HCl 4 mg 11/20/18 02:09 Zofran IV Q8H PRN Nausea And Vomiting Polyethylene Glycol 17 gm 11/20/18 06:34 Miralax 3350 PO QDAY PRN Constipation Senna/Docusate Sodium 1 tab 11/20/18 10:00 11/25/18 10:37 Senokot S PO 1 tab BID BEAN Administration Sodium Chloride 10 ml 11/20/18 10:00 11/25/18 10:38 Sodium Chloride Flush Syringe 10 Ml IV 10 ml BID BEAN Administration Sodium Chloride 10 ml 11/20/18 02:09 11/24/18 05:57 Sodium Chloride Flush Syringe 10 Ml IV 10 ml PRN PRN Administration LINE FLUSH Nutrition/Malnutrition Assess - Dietary Evaluation Nutrition/Malnutrition Findings: Nutrition Notes Start: 11/21/18 15:23 Freq: Status: Active Protocol: Document 11/24/18 17:13 RM (Rec: 11/24/18 17:14 RM [id number]) Nutrition Notes Need for Assessment generated from: MD Order Initial or Follow up Brief Note Subjective/Other Information Consulted for pt meal choices. Pt already being followed. Meal choices discussed yesterady. Nutrition Intervention Follow-Up By: 11/25/18 Additional Comments Follow for PO and ONS intakes, K lab
[2018-11-26] MEDS: MORPHINE IV PRN ×4 (02:31→21:50)
[2018-11-26] MEDS: SENOKOT S PO SCH ×3 (02:37→21:49)
[2018-11-26] MEDS: PEPCID PO SCH ×3 (02:37→21:49)
[2018-11-26] MEDS: LOPRESSOR PO SCH ×4 (02:48→18:41)
[2018-11-26 05:44] LABS: Basophils % (Auto) 0.5 % (0.0-1.8); Eosinophils # (Auto) 0.1 K/mm3 (0.0-0.4); Eosinophils % (Auto) 2.9 % (0.0-4.3); Hematocrit 32.3 % (35.5-45.6); Hemoglobin 10.7 gm/dl (11.8-15.2); Lymphocytes # (Auto) 0.9 K/mm3 (1.2-5.4); Lymphocytes % (Auto) 24.4 % (13.4-35.0); Mean Corpuscular HGB Conc 33 % (32-34); Mean Corpuscular Volume 100 fl (84-94); Monocytes # (Auto) 0.4 K/mm3 (0.0-0.8); Monocytes % (Auto) 9.7 % (0.0-7.3); Platelet Count 112 K/mm3 (140-440); Red Blood Count 3.25 M/mm3 (3.65-5.03); Red Cell Distribution Width 15.1 % (13.2-15.2)
[2018-11-26 06:13] LABS: Calcium 9.2 mg/dL (8.4-10.2)
[2018-11-26] MEDS: SODIUM CHLORIDE FLUSH SYRINGE 10 ML IV SCH ×3 (06:32→21:52)
[2018-11-26] MEDS: SODIUM CHLORIDE FLUSH SYRINGE 10 ML IV PRN (06:32)
[2018-11-26] MEDS ORDERED: NACL 0.9% 100 ML IV PRN (07:31)
[2018-11-26] MEDS: PULMICORT IH SCH ×2 (07:58→19:11)
[2018-11-26] MEDS: BROVANA NEBU IH SCH ×2 (07:58→19:11)
[2018-11-26] MEDS ORDERED: D50W (25GM) Vial IV NR (08:21)
[2018-11-26] MEDS ORDERED: HumuLIN R IV NR (08:21)
[2018-11-26] MEDS: PROzac PO SCH (10:42)
[2018-11-26] MEDS: IMDUR PO SCH (10:43)
[2018-11-26] MEDS: NORVASC PO SCH (10:43)
--- NOTE | 2018-11-26 11:47 | Progress Note ---
Assessment and Plan Left pleural effusion Chronic systolic heart failure Chronic and constant atypical chest pain DM type II PVD s/p left arm amputation Hypertension ESRD on hemodialysis Thrombocytopenia, chronic Hx of Nonischemic CMP, EF 40% Non-obstructive CAD [facility] 01/2017 revealed non-obstructive, single vessel disease of the proximal LAD recommended for medical therapy. normal perfusion MPI at [facility] 10/03/18. Permanent Atrial fibrillation rate controlled with metoprolol on low dose eliquis as an outpatient Continue medical therapy for nonischemic cardiomyopathy and chronic systolic heart failure. Dialysis for fluid management. Otherwise, conservative cardiac management. Subjective Date of service: 11/26/18 Interval history: Patient is resting in bed comfortably. Afib with a well controlled ventricular rate on telemetry. Objective Vital Signs Temp Pulse Pulse Resp Resp BP Pulse Ox 11/26/18 10:43 78 147/99 11/26/18 08:07 97.3 F L 78 16 147/99 96 11/26/18 07:58 72 18 100 11/26/18 06:31 20 11/26/18 06:30 69 137/99 11/26/18 03:54 98.0 F 69 18 137/99 96 11/25/18 23:51 98.0 F 75 18 100/75 99 11/25/18 21:01 97 11/25/18 21:00 82 20 11/25/18 19:18 97.0 F L 69 20 120/86 100 11/25/18 17:10 98.1 F 67 18 130/102 100 11/25/18 12:33 98.2 F 56 L 18 127/93 100 - Physical Examination General: No Apparent Distress HEENT: Positive: PERRL Neck: Positive: trachea midline Cardiac: Positive: irregularly irregular Lungs: Positive: Decreased Breath Sounds Neuro: Positive: Grossly Intact, Weakness Abdomen: Positive: Soft Skin: Positive: Clear Extremities: Present: Other (left arm below the elbow amputation). Absent: edema - Labs and Meds Cardiac Enzymes 11/26/18 Range/Units 04:54 AST 89 H (5-40) units/L CBC 11/26/18 Range/Units 04:54 WBC 3.8 L (4.5-11.0) K/mm3 RBC 3.25 L (3.65-5.03) M/mm3 Hgb 10.7 L (11.8-15.2) gm/dl Hct 32.3 L (35.5-45.6) % Plt Count 112 L (140-440) K/mm3 Lymph # 0.9 L (1.2-5.4) K/mm3 [place] # 0.4 (0.0-0.8) K/mm3 Eos # 0.1 (0.0-0.4) K/mm3 Baso # 0.0 (0.0-0.1) K/mm3 Comprehensive Metabolic Panel 11/26/18 Range/Units 04:54 Sodium 141 (137-145) mmol/L Potassium 5.5 H (3.6-5.0) mmol/L Chloride 100.4 (98-107) mmol/L Carbon Dioxide 25 (22-30) mmol/L BUN 48 H (9-20) mg/dL Creatinine 6.0 H (0.8-1.5) mg/dL Glucose 97 (75-100) mg/dL Calcium 9.2 (8.4-10.2) mg/dL AST 89 H (5-40) units/L ALT 75 H (7-56) units/L Alkaline Phosphatase 186 H (35-129) units/L Total Protein 6.8 (6.3-8.2) g/dL Albumin 3.0 L (3.9-5) g/dL
--- NOTE | 2018-11-26 12:16 | Progress Note ---
Assessment and Plan 1. ESRD: Continue hemodialysis three times a week, TTS schedule. Additional HD today for hyperkalemia. 2. FEN: Hyperkalemia, HD today. Suspected volume overload, UF with HD as tolerated. Monitor lytes. 3. A.fib with RVR: Rate controlled. 4. DM type 2. 5. Chronic pleural effusion: US guided Thoracentesis today. 6. Anemia: Epogen with HD. 7. PAD. Subjective Date of service: 11/26/18 Interval history: Patient was seen an examined at the bedside. Doing ok. Objective - Vital Signs Vital signs: Vital Signs - 12hr 11/26/18 11/26/18 11/26/18 03:54 06:30 06:31 Temperature 98.0 F Pulse Rate 69 69 Pulse Rate [ Bilateral Throughout] Respiratory 18 20 Rate Respiratory Rate [Bilateral Throughout] Blood Pressure 137/99 137/99 O2 Sat by Pulse 96 Oximetry 11/26/18 11/26/18 11/26/18 07:58 08:07 10:43 Temperature 97.3 F L Pulse Rate 78 78 Pulse Rate [ 72 Bilateral Throughout] Respiratory 16 Rate Respiratory 18 Rate [Bilateral Throughout] Blood Pressure 147/99 147/99 O2 Sat by Pulse 100 96 Oximetry - General Appearance General appearance: well-developed, appears stated age, other (no distress, R IJ tunnel catheter) EENT: ATNC, PERRL, hearing intact, vision intact Neck: supple Respiratory: Present: Clear to Ascultation Cardiology: irregularly irregular, S1S2, no murmurs Gastrointestinal: normoactive bowel sounds, no tenderness, no distended Integumentary: warm and dry Neurologic: no focal deficit, no asterixis, alert and oriented x3 Musculoskeletal: other (amputation of L forearm, no edema) - Lab 11/26/18 04:54 11/26/18 04:54 Most recent lab results Calcium 9.2 mg/dL (8.4-10.2) 11/26/18 04:54 Phosphorus 5.00 mg/dL (2.5-4.5) H 11/26/18 04:54 Medications & Allergies - Medications Allergies/Adverse Reactions: Allergies aspirin Allergy (Verified 03/16/17 01:25) Unknown stomach cramps pork derived (porcine) Allergy (Verified 03/16/17 01:27) Rash venom-honey bee [bee venom (honey bee)] Allergy (Verified 03/16/17 01:27) Anaphylaxis Pork/Porcine Containing Products Adverse Reaction (Severe, Verified 02/13/17 09:31) Nausea,VOMITING Home Medications: Home Medications Medication Instructions Recorded Confirmed Last Taken Type Acetaminophen [Acetaminophen TAB] 650 mg PO Q4H PRN tablet 05/05/18 11/20/18 09/21/18 Rx Apixaban [Eliquis] 2.5 mg PO Q12HR #60 tablet 09/05/18 11/20/18 09/21/18 Rx AtorvaSTATin [Lipitor] 40 mg PO QHS #30 tablet 09/05/18 11/20/18 09/21/18 Rx Epoetin Prashant 10,000 Unit [Procrit] 10,000 unit SUB-Q KATERYNA PRN #30 vial 09/05/18 11/20/18 09/21/18 Rx FLUoxetine HCL [Fluoxetine HCl] 40 mg PO QDAY #30 capsule 09/05/18 11/20/18 09/21/18 Rx Famotidine [Pepcid] 10 mg PO BID #15 tablet 09/05/18 11/20/18 09/21/18 Rx Fe Fumarate/FA/Mv, Min Comb#15 1 each PO QDAY #30 capsule 09/05/18 11/20/18 09/21/18 Rx [Hemocyte Plus] ISOSORBIDE MONOnitrate [Imdur ER] 30 mg PO QDAY #30 tablet 09/05/18 11/20/18 09/21/18 Rx Losartan [Cozaar] 100 mg PO QDAY 30 Days tablet 09/05/18 11/20/18 09/21/18 Rx Metoprolol Xl [Metoprolol 100 mg PO QDAY #30 tablet 09/05/18 11/20/18 09/21/18 Rx SUCCINATE ER TAB] Polyethylene Glycol 3350 [Miralax 17 gm PO QDAY PRN powd.pack 09/05/18 11/20/18 09/21/18 Rx 3350] Sennosides/Docusate [Senokot S] 1 tab PO BID tablet 09/05/18 11/20/18 09/21/18 Rx amLODIPine [Norvasc] 10 mg PO DAILY #30 tablet 09/05/18 11/20/18 09/21/18 Rx hydrALAZINE [Apresoline TAB] 50 mg PO BID 11/06/18 11/20/18 Unknown History Mag Hydrox/Aluminum Hyd/Simeth 355 ml PO DAILY PRN 15 Days 11/08/18 11/20/18 Unknown Rx [Maalox Advanced Suspension] oral.susp Active Medications: Generic Name Dose Route Start Last Admin Trade Name Freq PRN Reason Stop Dose Admin Acetaminophen 650 mg 11/20/18 02:09 11/24/18 21:21 Tylenol PO 650 mg Q4H PRN Administration Pain MILD(1-3)/Fever >100.5/DOUGLAS Albuterol 2.5 mg 11/20/18 22:12 Proventil IH Q4HRT PRN Shortness Of Breath Amlodipine Besylate 10 mg 11/20/18 15:00 11/26/18 10:43 Norvasc PO 10 mg DAILY BEAN Administration Arformoterol Tartrate 15 mcg 11/20/18 09:45 11/26/18 07:58 Brovana Nebu IH 15 mcg Q12HRT BEAN Administration Atorvastatin Calcium 40 mg 11/20/18 22:00 11/26/18 02:38 Lipitor PO Not Given QHS BEAN Budesonide 0.5 mg 11/20/18 09:45 11/26/18 07:58 Pulmicort IH 0.5 mg Q12HRT BEAN Administration Epoetin Prashant 10,000 unit 11/22/18 09:20 11/24/18 12:00 Procrit SUB-Q 10,000 unit KATERYNA PRN Administration hemodialysis Famotidine 10 mg 11/20/18 10:00 11/26/18 10:42 Pepcid PO 10 mg BID BEAN Administration Fluoxetine HCl 40 mg 11/20/18 10:00 11/26/18 10:42 Prozac PO 40 mg QDAY BEAN Administration Hydralazine HCl 20 mg 11/20/18 18:27 Apresoline IV Q4HR PRN SBP>160 or DBP>110 Sodium Chloride 100 mls @ 999 mls/hr 11/26/18 07:31 Nacl 0.9% IV KATERYNA PRN Hypotension Isosorbide Mononitrate 30 mg 11/20/18 15:00 11/26/18 10:43 Imdur PO 30 mg DAILY BEAN Administration Metoprolol Tartrate 25 mg 11/20/18 11:00 11/26/18 06:30 Lopressor PO 25 mg Q6HR BEAN Administration Morphine Sulfate 2 mg 11/20/18 15:44 11/26/18 06:31 Morphine IV 2 mg Q4H PRN Administration Pain, Moderate (4-6) Ondansetron HCl 4 mg 11/20/18 02:09 Zofran IV Q8H PRN Nausea And Vomiting Polyethylene Glycol 17 gm 11/20/18 06:34 Miralax 3350 PO QDAY PRN Constipation Senna/Docusate Sodium 1 tab 11/20/18 10:00 11/26/18 10:42 Senokot S PO 1 tab BID BEAN Administration Sodium Chloride 10 ml 11/20/18 10:00 11/26/18 10:47 Sodium Chloride Flush Syringe 10 Ml IV 10 ml BID BEAN Administration Sodium Chloride 10 ml 11/20/18 02:09 11/26/18 06:32 Sodium Chloride Flush Syringe 10 Ml IV 10 ml PRN PRN Administration LINE FLUSH
--- NOTE | 2018-11-26 16:11 | Progress Note ---
Assessment and Plan Assessment and plan: Patient is 71-year-old man with a history of end-stage renal disease on dialysis, hypertension, CHF, A. fib, coronary artery disease, PTSD presented to emergency room with complaints of shortness of breath, wheezing, chest pain. He was found to be in A. fib with RVR in the field, started on a Cardizem drip in the emergency room, admitted. He was later weaned off Cardizem drip, placed on oral Lopressor. For chest pain was evaluated by cardiology, chest pain determined to bee non cardiac. He has large left pleural effusion. I discussed with Pulmonology and US guided thoracentesis left recommended. This was ordered, but he was on Eliquis for afib and this was put on hold. To discharge home after thoracentesis on left. A. fib with RVR Chest pain Chronically elevated troponin Coronary artery disease,non obstructive CHF, Chronic, systolic Hypertension End-stage renal disease on dialysis PTSD Left subconjunctival hemorrhage Thrombocytopenia Hyperkalemia,resolved large left pleural effusion Chronic pain cardiomyopathy Plan Off cardizem drip, now on oral Metoprolol Cardiology following Nephrology following patient recently treated for pneumonia Patient has large left pleural effusion US guided thoracentesis ordered, was to be done today, not done yet. Eliquis on hold for thoracentesis, to resume on discharge Plan is to dc home after thoracentesis on left. History Interval history: No shortness of breath currently No more chest pain Hospitalist Physical - Physical exam Narrative exam: Gen: Not in acute distress, lying in bed, HEENT: Normocephalic, atraumatic Neck: supple, no JVD Heart: S1 and S2 irreg, no murmurs, rubs or gallop Lungs: Clear, Decreased breath sounds on left base, no crackles, no wheeze Abd: soft, non tender, non distended, normal BS Ext: No edema, no clubbing, no cyanosis, left partial forearm amputated Neuro: Awake,alert, oriented x 3, moves all ext Psych:Normal mood - Constitutional Vitals: Temp Pulse Resp BP Pulse Ox 97.3 F L 72 18 128/87 96 11/26/18 08:07 11/26/18 13:08 11/26/18 13:08 11/26/18 12:44 11/26/18 08:07 General appearance: Present: no acute distress Results - Labs CBC & Chem 7: 11/26/18 04:54 11/26/18 04:54 Labs: Laboratory Last Values WBC 3.8 K/mm3 (4.5-11.0) L 11/26/18 04:54 RBC 3.25 M/mm3 (3.65-5.03) L 11/26/18 04:54 Hgb 10.7 gm/dl (11.8-15.2) L 11/26/18 04:54 Hct 32.3 % (35.5-45.6) L 11/26/18 04:54 MCV 100 fl (84-94) H 11/26/18 04:54 MCH 33 pg (28-32) H 11/26/18 04:54 MCHC 33 % (32-34) 11/26/18 04:54 RDW 15.1 % (13.2-15.2) 11/26/18 04:54 Plt Count 112 K/mm3 (140-440) L 11/26/18 04:54 Lymph % (Auto) 24.4 % (13.4-35.0) 11/26/18 04:54 [place] % (Auto) 9.7 % (0.0-7.3) H 11/26/18 04:54 Eos % (Auto) 2.9 % (0.0-4.3) 11/26/18 04:54 Baso % (Auto) 0.5 % (0.0-1.8) 11/26/18 04:54 Lymph # 0.9 K/mm3 (1.2-5.4) L 11/26/18 04:54 [place] # 0.4 K/mm3 (0.0-0.8) 11/26/18 04:54 Eos # 0.1 K/mm3 (0.0-0.4) 11/26/18 04:54 Baso # 0.0 K/mm3 (0.0-0.1) 11/26/18 04:54 Seg Neutrophils % 62.5 % (40.0-70.0) 11/26/18 04:54 Seg Neutrophils # 2.4 K/mm3 (1.8-7.7) 11/26/18 04:54 PT 19.0 Sec. (12.2-14.9) H 11/20/18 00:17 INR 1.49 (0.87-1.13) H 11/20/18 00:17 APTT 36.1 Sec. (24.2-36.6) 11/20/18 00:17 Sodium 141 mmol/L (137-145) 11/26/18 04:54 Potassium 5.5 mmol/L (3.6-5.0) H 11/26/18 04:54 Chloride 100.4 mmol/L (98-107) 11/26/18 04:54 Carbon Dioxide 25 mmol/L (22-30) 11/26/18 04:54 21 mmol/L 11/26/18 04:54 BUN 48 mg/dL (9-20) H 11/26/18 04:54 6.0 mg/dL (0.8-1.5) H 11/26/18 04:54 Estimated GFR 11 ml/min 11/26/18 04:54 8 % 11/26/18 04:54 Glucose 97 mg/dL (75-100) 11/26/18 04:54 POC Glucose 96 (70-105) 11/26/18 07:23 Calcium 9.2 mg/dL (8.4-10.2) 11/26/18 04:54 Phosphorus 5.00 mg/dL (2.5-4.5) H 11/26/18 04:54 0.30 mg/dL (0.1-1.2) 11/26/18 04:54 AST 89 units/L (5-40) H 11/26/18 04:54 ALT 75 units/L (7-56) H 11/26/18 04:54 186 units/L (35-129) H 11/26/18 04:54 108 units/L (55-170) 11/20/18 09:29 CK-MB (CK-2) 4.6 ng/mL (0.0-4.0) H 11/20/18 09:29 CK-MB (CK-2) Rel Index 4.2 (0-4) H 11/20/18 09:29 0.219 ng/mL (0.00-0.029) H* 11/20/18 09:29 NT-Pro-B Natriuret Pep > 31523 pg/mL (0-900) H 11/20/18 00:17 6.8 g/dL (6.3-8.2) 11/26/18 04:54 3.0 g/dL (3.9-5) L 11/26/18 04:54 0.8 % 11/26/18 04:54 Triglycerides 83 mg/dL (2-149) 11/20/18 00:17 Cholesterol 94 mg/dL (50-199) 11/20/18 00:17 32 mg/dL (50-130) L 11/20/18 00:17 50 mg/dL (40-59) 11/20/18 00:17 1.88 % 11/20/18 00:17 Hepatitis A IgM Ab Non-reactive (NonReactive) 11/21/18 13:18 Hep Bs Antigen Non-reactive (Negative) 11/21/18 13:18 Hep B Core IgM Ab Non-reactive (NonReactive) 11/21/18 13:18 Reactive (NonReactive) A 11/21/18 13:18 Active Medications - Current Medications Current Medications: Generic Name Dose Route Start Last Admin Trade Name Freq PRN Reason Stop Dose Admin Acetaminophen 650 mg 11/20/18 02:09 11/24/18 21:21 Tylenol PO 650 mg Q4H PRN Administration Pain MILD(1-3)/Fever >100.5/DOUGLAS Albuterol 2.5 mg 11/20/18 22:12 Proventil IH Q4HRT PRN Shortness Of Breath Amlodipine Besylate 10 mg 11/20/18 15:00 11/26/18 10:43 Norvasc PO 10 mg DAILY BEAN Administration Arformoterol Tartrate 15 mcg 11/20/18 09:45 11/26/18 07:58 Brovana Nebu IH 15 mcg Q12HRT BEAN Administration Atorvastatin Calcium 40 mg 11/20/18 22:00 11/26/18 02:38 Lipitor PO Not Given QHS BEAN Budesonide 0.5 mg 11/20/18 09:45 11/26/18 07:58 Pulmicort IH 0.5 mg Q12HRT BEAN Administration Epoetin Prashant 10,000 unit 11/22/18 09:20 11/24/18 12:00 Procrit SUB-Q 10,000 unit KATERYNA PRN Administration hemodialysis Famotidine 10 mg 11/20/18 10:00 11/26/18 10:42 Pepcid PO 10 mg BID BEAN Administration Fluoxetine HCl 40 mg 11/20/18 10:00 11/26/18 10:42 Prozac PO 40 mg QDAY BEAN Administration Hydralazine HCl 20 mg 11/20/18 18:27 Apresoline IV Q4HR PRN SBP>160 or DBP>110 Sodium Chloride 100 mls @ 999 mls/hr 11/26/18 07:31 Nacl 0.9% IV KATERYNA PRN Hypotension Isosorbide Mononitrate 30 mg 11/20/18 15:00 11/26/18 10:43 Imdur PO 30 mg DAILY BEAN Administration Metoprolol Tartrate 25 mg 11/20/18 11:00 11/26/18 12:44 Lopressor PO 25 mg Q6HR BEAN Administration Morphine Sulfate 2 mg 11/20/18 15:44 11/26/18 06:31 Morphine IV 2 mg Q4H PRN Administration Pain, Moderate (4-6) Ondansetron HCl 4 mg 11/20/18 02:09 Zofran IV Q8H PRN Nausea And Vomiting Polyethylene Glycol 17 gm 11/20/18 06:34 Miralax 3350 PO QDAY PRN Constipation Senna/Docusate Sodium 1 tab 11/20/18 10:00 11/26/18 10:42 Senokot S PO 1 tab BID BEAN Administration Sodium Chloride 10 ml 11/20/18 10:00 11/26/18 10:47 Sodium Chloride Flush Syringe 10 Ml IV 10 ml BID BEAN Administration Sodium Chloride 10 ml 11/20/18 02:09 11/26/18 06:32 Sodium Chloride Flush Syringe 10 Ml IV 10 ml PRN PRN Administration LINE FLUSH Nutrition/Malnutrition Assess - Dietary Evaluation Nutrition/Malnutrition Findings: Nutrition Notes Start: 11/21/18 15:23 Freq: Status: Active Protocol: Document 11/25/18 14:51 RM (Rec: 11/25/18 14:57 RM [id number]) Nutrition Notes Initial or Follow up Reassessment Current Diagnosis Coronary Artery Disease, Hypertension,Heart Failure Other Pertinent Diagnosis PTSD, ESRD on HD, Pneu Current Diet Cardiac Labs/Tests No recent labs Pertinent Medications Reviewed Height 5 ft 9 in Weight 52.8 kg [place] Body Weight (kg) 72.72 BMI 17.2 Subjective/Other Information Pt stated that his appetite is good and that he is eating 100% of his meals. Also stated that he drinks the Ensure clear. Formulator Compounder requested BMP from MD. stated that pt is planned to be D/C'd soon and ordered for diet to be changed back to renal. Percent of energy/protein needs met: 83%/93% Burn Absent Trauma Absent #1 Nutrition Diagnosis Malnutrition Diagnosis Progress(for reassessment Continues documentation) Is patient on ventilator? No Is Patient Ambulatory and/or Out of Bed Yes REE-([place]-ambulatory/OOB) [ 1661.894 [id number]] Kcal/Kg value to use for calculation 37 Approximate Energy Requirements Using 4 kcal/Kg Calculation Used for Recommendations Kcal/kg Additional Notes Protein Need: 67-72g (1.2-1.3g /kg) Fluid Needs: 1 ml/kcal Nutrition Intervention Change Diet Order: Renal Add Supplement/Snack (indicate name/kcal Ensure Clear BID (M/W/F/Sun) /protein ) Provides kCal: 480 Provides Protein (gm) 16 Goal #1 Continue to meet at least 75% of calorie and protein needs via PO and ONS intakes Anticipated Discharge Needs: Renal diet Follow-Up By: 11/28/18 Additional Comments Follow for PO and ONS intakes
[2018-11-26] MEDS: PROCRIT SUB-Q PRN (20:39)
[2018-11-27] MEDS: LOPRESSOR PO SCH ×4 (01:32→18:18)
[2018-11-27] MEDS: MORPHINE IV PRN ×5 (02:42→19:49)
[2018-11-27 06:54] LABS: Calcium 8.8 mg/dL (8.4-10.2)
[2018-11-27] MEDS: BROVANA NEBU IH SCH ×2 (07:47→19:05)
[2018-11-27] MEDS: PULMICORT IH SCH ×2 (07:47→19:05)
[2018-11-27] MEDS ORDERED: NACL 0.9 (PRIMING MACHINE ONLY DIALYSIS) MC ONE (09:39)
--- NOTE | 2018-11-27 10:19 | Progress Note ---
Assessment and Plan Left pleural effusion Chronic systolic heart failure Chronic and constant atypical chest pain DM type II PVD s/p left arm amputation Hypertension ESRD on hemodialysis Thrombocytopenia, chronic Hx of Nonischemic CMP, EF 40% Non-obstructive CAD [facility] 01/2017 revealed non-obstructive, single vessel disease of the proximal LAD recommended for medical therapy. normal perfusion MPI at [facility] 10/03/18. Permanent Atrial fibrillation rate controlled with metoprolol on low dose eliquis as an outpatient Continue medical therapy for nonischemic cardiomyopathy and chronic systolic heart failure. Dialysis for fluid management. Otherwise, conservative cardiac management. Subjective Date of service: 11/27/18 Interval history: No interval changes. For planned thoracentesis Afib with a well controlled ventricular rate on telemetry. Objective Vital Signs Temp Pulse Pulse Pulse Pulse Pulse Resp 11/27/18 07:52 11/27/18 07:50 75 80 11/27/18 04:36 97.7 F 68 20 11/27/18 00:57 97.6 F 62 20 11/26/18 21:43 97.7 F 62 20 11/26/18 20:00 72 11/26/18 19:23 71 11/26/18 19:13 11/26/18 19:12 68 11/26/18 18:41 71 11/26/18 17:19 97.3 F L 50 L 18 11/26/18 17:00 98.2 F 73 18 11/26/18 16:40 84 11/26/18 16:30 84 11/26/18 16:15 81 11/26/18 16:00 72 11/26/18 15:45 69 11/26/18 15:30 73 11/26/18 15:15 76 11/26/18 15:00 51 L 11/26/18 14:45 71 11/26/18 14:40 80 11/26/18 14:20 98.2 F 65 18 11/26/18 13:08 72 76 18 11/26/18 12:44 72 11/26/18 10:43 78 Resp Resp BP Pulse Ox 11/27/18 07:52 100 11/27/18 07:50 18 16 11/27/18 04:36 132/97 99 11/27/18 00:57 115/79 100 11/26/18 21:43 113/82 100 11/26/18 20:00 11/26/18 19:23 18 11/26/18 19:13 100 11/26/18 19:12 16 11/26/18 18:41 109/83 11/26/18 17:19 107/79 100 11/26/18 17:00 131/62 11/26/18 16:40 112/64 11/26/18 16:30 132/62 11/26/18 16:15 123/62 11/26/18 16:00 119/62 11/26/18 15:45 132/86 11/26/18 15:30 129/64 11/26/18 15:15 132/97 11/26/18 15:00 134/88 11/26/18 14:45 142/93 11/26/18 14:40 133/85 11/26/18 14:20 135/85 11/26/18 13:08 11/26/18 12:44 128/87 11/26/18 10:43 147/99 - Physical Examination General: No Apparent Distress HEENT: Positive: PERRL Neck: Positive: trachea midline Cardiac: Positive: irregularly irregular Lungs: Positive: Decreased Breath Sounds Neuro: Positive: Grossly Intact, Weakness Extremities: Present: Other (left arm below the elbow amputation). Absent: edema - Labs and Meds Comprehensive Metabolic Panel 11/27/18 Range/Units 05:46 Sodium 132 L D (137-145) mmol/L Potassium 5.2 H (3.6-5.0) mmol/L Chloride 93.3 L (98-107) mmol/L Carbon Dioxide 24 (22-30) mmol/L BUN 37 H (9-20) mg/dL Creatinine 5.0 H (0.8-1.5) mg/dL Glucose 134 H (75-100) mg/dL Calcium 8.8 (8.4-10.2) mg/dL
--- NOTE | 2018-11-27 10:50 | Progress Note ---
Assessment and Plan 1. ESRD: Continue hemodialysis three times a week, TTS schedule. 2. FEN: Hyperkalemia, HD today. Suspected volume overload, UF with HD as tolerated. Monitor lytes. 3. A.fib with RVR: Rate controlled. 4. DM type 2. 5. Chronic pleural effusion: US guided Thoracentesis ordered. 6. Anemia: Epogen with HD. 7. PAD. Subjective Date of service: 11/27/18 Interval history: Patient was seen an examined at the bedside. Doing ok. Objective - Vital Signs Vital signs: Vital Signs - 12hr 11/27/18 11/27/18 11/27/18 00:57 04:36 07:50 Temperature 97.6 F 97.7 F Pulse Rate 62 68 Pulse Rate [ 75 Bilateral Throughout] Pulse Rate [ 80 Bilateral] Respiratory 20 20 Rate Respiratory 18 Rate [Bilateral Throughout] Respiratory 16 Rate [Bilateral ] Blood Pressure 115/79 132/97 O2 Sat by Pulse 100 99 Oximetry 11/27/18 07:52 Temperature Pulse Rate Pulse Rate [ Bilateral Throughout] Pulse Rate [ Bilateral] Respiratory Rate Respiratory Rate [Bilateral Throughout] Respiratory Rate [Bilateral ] Blood Pressure O2 Sat by Pulse 100 Oximetry - General Appearance General appearance: well-developed, appears stated age, other (no distress, R IJ tunnel catheter) EENT: ATNC, PERRL, hearing intact, vision intact Neck: supple Respiratory: Present: Clear to Ascultation, Decreased Breath Sounds (L side) Cardiology: irregularly irregular, S1S2 Gastrointestinal: normoactive bowel sounds, no tenderness, no distended Integumentary: warm and dry Neurologic: no focal deficit, no asterixis, alert and oriented x3 Musculoskeletal: other (amputation of L FA, no edema) - Lab 11/27/18 Unknown 11/27/18 05:46 Most recent lab results Calcium 8.8 mg/dL (8.4-10.2) 11/27/18 05:46 Phosphorus 5.00 mg/dL (2.5-4.5) H 11/26/18 04:54 Medications & Allergies - Medications Allergies/Adverse Reactions: Allergies aspirin Allergy (Verified 03/16/17 01:25) Unknown stomach cramps pork derived (porcine) Allergy (Verified 03/16/17 01:27) Rash venom-honey bee [bee venom (honey bee)] Allergy (Verified 03/16/17 01:27) Anaphylaxis Pork/Porcine Containing Products Adverse Reaction (Severe, Verified 02/13/17 09:31) Nausea,VOMITING Home Medications: Home Medications Medication Instructions Recorded Confirmed Last Taken Type Acetaminophen [Acetaminophen TAB] 650 mg PO Q4H PRN tablet 05/05/18 11/20/18 09/21/18 Rx Apixaban [Eliquis] 2.5 mg PO Q12HR #60 tablet 09/05/18 11/20/18 09/21/18 Rx AtorvaSTATin [Lipitor] 40 mg PO QHS #30 tablet 09/05/18 11/20/18 09/21/18 Rx Epoetin Prashant 10,000 Unit [Procrit] 10,000 unit SUB-Q KATERYNA PRN #30 vial 09/05/18 11/20/18 09/21/18 Rx FLUoxetine HCL [Fluoxetine HCl] 40 mg PO QDAY #30 capsule 09/05/18 11/20/18 09/21/18 Rx Famotidine [Pepcid] 10 mg PO BID #15 tablet 09/05/18 11/20/18 09/21/18 Rx Fe Fumarate/FA/Mv, Min Comb#15 1 each PO QDAY #30 capsule 09/05/18 11/20/18 09/21/18 Rx [Hemocyte Plus] ISOSORBIDE MONOnitrate [Imdur ER] 30 mg PO QDAY #30 tablet 09/05/18 11/20/18 09/21/18 Rx Losartan [Cozaar] 100 mg PO QDAY 30 Days tablet 09/05/18 11/20/18 09/21/18 Rx Metoprolol Xl [Metoprolol 100 mg PO QDAY #30 tablet 09/05/18 11/20/18 09/21/18 Rx SUCCINATE ER TAB] Polyethylene Glycol 3350 [Miralax 17 gm PO QDAY PRN powd.pack 09/05/18 11/20/18 09/21/18 Rx 3350] Sennosides/Docusate [Senokot S] 1 tab PO BID tablet 09/05/18 11/20/18 09/21/18 Rx amLODIPine [Norvasc] 10 mg PO DAILY #30 tablet 09/05/18 11/20/18 09/21/18 Rx hydrALAZINE [Apresoline TAB] 50 mg PO BID 11/06/18 11/20/18 Unknown History Mag Hydrox/Aluminum Hyd/Simeth 355 ml PO DAILY PRN 15 Days 11/08/18 11/20/18 Unknown Rx [Maalox Advanced Suspension] oral.susp Active Medications: Generic Name Dose Route Start Last Admin Trade Name Freq PRN Reason Stop Dose Admin Acetaminophen 650 mg 11/20/18 02:09 11/24/18 21:21 Tylenol PO 650 mg Q4H PRN Administration Pain MILD(1-3)/Fever >100.5/DOUGLAS Albuterol 2.5 mg 11/20/18 22:12 Proventil IH Q4HRT PRN Shortness Of Breath Amlodipine Besylate 10 mg 11/20/18 15:00 11/26/18 10:43 Norvasc PO 10 mg DAILY BEAN Administration Arformoterol Tartrate 15 mcg 11/20/18 09:45 11/27/18 07:47 Brovana Nebu IH 15 mcg Q12HRT BEAN Administration Atorvastatin Calcium 40 mg 11/20/18 22:00 11/26/18 21:49 Lipitor PO 40 mg QHS BEAN Administration Budesonide 0.5 mg 11/20/18 09:45 11/27/18 07:47 Pulmicort IH 0.5 mg Q12HRT BEAN Administration Epoetin Prashant 10,000 unit 11/22/18 09:20 11/26/18 20:39 Procrit SUB-Q 10,000 unit KATERYNA PRN Administration hemodialysis Famotidine 10 mg 11/20/18 10:00 11/26/18 21:49 Pepcid PO 10 mg BID BEAN Administration Fluoxetine HCl 40 mg 11/20/18 10:00 11/26/18 10:42 Prozac PO 40 mg QDAY BEAN Administration Hydralazine HCl 20 mg 11/20/18 18:27 Apresoline IV Q4HR PRN SBP>160 or DBP>110 Sodium Chloride 100 mls @ 999 mls/hr 11/26/18 07:31 Nacl 0.9% IV KATERYNA PRN Hypotension Isosorbide Mononitrate 30 mg 11/20/18 15:00 11/26/18 10:43 Imdur PO 30 mg DAILY BEAN Administration Metoprolol Tartrate 25 mg 11/20/18 11:00 11/27/18 05:32 Lopressor PO 25 mg Q6HR BEAN Administration Morphine Sulfate 2 mg 11/20/18 15:44 11/27/18 09:42 Morphine IV 2 mg Q4H PRN Administration Pain, Moderate (4-6) Ondansetron HCl 4 mg 11/20/18 02:09 Zofran IV Q8H PRN Nausea And Vomiting Polyethylene Glycol 17 gm 11/20/18 06:34 Miralax 3350 PO QDAY PRN Constipation Senna/Docusate Sodium 1 tab 11/20/18 10:00 11/26/18 21:49 Senokot S PO 1 tab BID BEAN Administration Sodium Chloride 10 ml 11/20/18 10:00 11/26/18 21:52 Sodium Chloride Flush Syringe 10 Ml IV 10 ml BID BEAN Administration Sodium Chloride 10 ml 11/20/18 02:09 11/26/18 06:32 Sodium Chloride Flush Syringe 10 Ml IV 10 ml PRN PRN Administration LINE FLUSH
[2018-11-27] MEDS: PROCRIT SUB-Q PRN (10:56)
--- NOTE | 2018-11-27 11:59 | Progress Note ---
Assessment and Plan Assessment and plan: Left pleural effusion. Thoracentesis per pulmonary. Chronic systolic heart failure/nonischemic cardiomyopathy Continue medical therapy for nonischemic cardiomyopathy and chronic systolic heart failure. Continue hemodialysis for fluid management. Chronic and constant atypical chest pain DM type II. Continue Accu-Cheks and sliding scale insulin. PVD s/p left arm amputation Hypertension. Continue antihypertensive medications. Hydralazine when necessary. Hyperlipidemia. Continue Lipitor. ESRD on hemodialysis Thrombocytopenia, chronic Hx of Nonischemic CMP, EF 40% Non-obstructive CAD. [facility] 01/2017 revealed non-obstructive, single vessel disease of the proximal LAD recommended for medical therapy. Normal perfusion MPI at [facility] 10/03/18. Permanent Atrial fibrillation. Rate controlled with metoprolol 25 mg by mouth every 6 hours. Pt is on low dose eliquis as an outpatient History Interval history: Patient is 71-year-old man with a history of end-stage renal disease on dialysis, hypertension, CHF, A. fib, coronary artery disease, PTSD presented to emergency room with complaints of shortness of breath, wheezing, chest pain. He was found to be in A. fib with RVR in the field, started on a Cardizem drip in the emergency room, admitted. He was later weaned off Cardizem drip, placed on oral Lopressor. For chest pain was evaluated by cardiology, chest pain determined to bee non cardiac. He has large left pleural effusion. I discussed with Pulmonology and US guided thoracentesis left recommended. This was ordered, but he was on Eliquis for afib and this was put on hold. To discharge home after thoracentesis on left. No new issues overnight. Hospitalist Physical - Constitutional Vitals: Temp Pulse Resp BP Pulse Ox 97.7 F 66 20 141/91 100 11/27/18 09:00 11/27/18 09:00 11/27/18 09:00 11/27/18 09:00 11/27/18 07:52 General appearance: Present: no acute distress - EENT Eyes: Present: PERRL, EOM intact ENT: hearing intact, clear oral mucosa, dentition normal - Neck Neck: Present: supple, normal ROM - Respiratory Respiratory effort: normal Respiratory: bilateral: CTA - Cardiovascular Rhythm: regular Heart Sounds: Present: S1 & S2. Absent: gallop, rub - Extremities Extremities: no ischemia, No edema, Full ROM - Abdominal General gastrointestinal: soft, non-tender, non-distended, normal bowel sounds - Integumentary Integumentary: Present: clear, warm, dry - Neurologic Neurologic: CNII-XII intact, moves all extremities Results - Labs CBC & Chem 7: 11/26/18 04:54 11/27/18 05:46 Labs: Laboratory Last Values WBC 3.8 K/mm3 (4.5-11.0) L 11/26/18 04:54 RBC 3.25 M/mm3 (3.65-5.03) L 11/26/18 04:54 Hgb 10.7 gm/dl (11.8-15.2) L 11/26/18 04:54 Hct 32.3 % (35.5-45.6) L 11/26/18 04:54 MCV 100 fl (84-94) H 11/26/18 04:54 MCH 33 pg (28-32) H 11/26/18 04:54 MCHC 33 % (32-34) 11/26/18 04:54 RDW 15.1 % (13.2-15.2) 11/26/18 04:54 Plt Count 112 K/mm3 (140-440) L 11/26/18 04:54 Lymph % (Auto) 24.4 % (13.4-35.0) 11/26/18 04:54 Ware % (Auto) 9.7 % (0.0-7.3) H 11/26/18 04:54 Eos % (Auto) 2.9 % (0.0-4.3) 11/26/18 04:54 Baso % (Auto) 0.5 % (0.0-1.8) 11/26/18 04:54 Lymph # 0.9 K/mm3 (1.2-5.4) L 11/26/18 04:54 Ware # 0.4 K/mm3 (0.0-0.8) 11/26/18 04:54 Eos # 0.1 K/mm3 (0.0-0.4) 11/26/18 04:54 Baso # 0.0 K/mm3 (0.0-0.1) 11/26/18 04:54 Seg Neutrophils % 62.5 % (40.0-70.0) 11/26/18 04:54 Seg Neutrophils # 2.4 K/mm3 (1.8-7.7) 11/26/18 04:54 PT 19.0 Sec. (12.2-14.9) H 11/20/18 00:17 INR 1.49 (0.87-1.13) H 11/20/18 00:17 APTT 36.1 Sec. (24.2-36.6) 11/20/18 00:17 Sodium 132 mmol/L (137-145) L D 11/27/18 05:46 Potassium 5.2 mmol/L (3.6-5.0) H 11/27/18 05:46 Chloride 93.3 mmol/L (98-107) L 11/27/18 05:46 Carbon Dioxide 24 mmol/L (22-30) 11/27/18 05:46 20 mmol/L 11/27/18 05:46 BUN 37 mg/dL (9-20) H 11/27/18 05:46 5.0 mg/dL (0.8-1.5) H 11/27/18 05:46 Estimated GFR 14 ml/min 11/27/18 05:46 7 % 11/27/18 05:46 Glucose 134 mg/dL (75-100) H 11/27/18 05:46 POC Glucose 96 (70-105) 11/26/18 07:23 Calcium 8.8 mg/dL (8.4-10.2) 11/27/18 05:46 Phosphorus 5.00 mg/dL (2.5-4.5) H 11/26/18 04:54 0.30 mg/dL (0.1-1.2) 11/26/18 04:54 AST 89 units/L (5-40) H 11/26/18 04:54 ALT 75 units/L (7-56) H 11/26/18 04:54 186 units/L (35-129) H 11/26/18 04:54 108 units/L (55-170) 11/20/18 09:29 CK-MB (CK-2) 4.6 ng/mL (0.0-4.0) H 11/20/18 09:29 CK-MB (CK-2) Rel Index 4.2 (0-4) H 11/20/18 09:29 0.219 ng/mL (0.00-0.029) H* 11/20/18 09:29 NT-Pro-B Natriuret Pep > 05555 pg/mL (0-900) H 11/20/18 00:17 6.8 g/dL (6.3-8.2) 11/26/18 04:54 3.0 g/dL (3.9-5) L 11/26/18 04:54 0.8 % 11/26/18 04:54 Triglycerides 83 mg/dL (2-149) 11/20/18 00:17 Cholesterol 94 mg/dL (50-199) 11/20/18 00:17 32 mg/dL (50-130) L 11/20/18 00:17 50 mg/dL (40-59) 11/20/18 00:17 1.88 % 11/20/18 00:17 Hepatitis A IgM Ab Non-reactive (NonReactive) 11/21/18 13:18 Hep Bs Antigen Non-reactive (Negative) 11/21/18 13:18 Hep B Core IgM Ab Non-reactive (NonReactive) 11/21/18 13:18 Reactive (NonReactive) A 11/21/18 13:18 Active Medications - Current Medications Current Medications: Generic Name Dose Route Start Last Admin Trade Name Freq PRN Reason Stop Dose Admin Acetaminophen 650 mg 11/20/18 02:09 11/24/18 21:21 Tylenol PO 650 mg Q4H PRN Administration Pain MILD(1-3)/Fever >100.5/DOUGLAS Albuterol 2.5 mg 11/20/18 22:12 Proventil IH Q4HRT PRN Shortness Of Breath Amlodipine Besylate 10 mg 11/20/18 15:00 11/26/18 10:43 Norvasc PO 10 mg DAILY BEAN Administration Arformoterol Tartrate 15 mcg 11/20/18 09:45 11/27/18 07:47 Brovana Nebu IH 15 mcg Q12HRT BEAN Administration Atorvastatin Calcium 40 mg 11/20/18 22:00 11/26/18 21:49 Lipitor PO 40 mg QHS BEAN Administration Budesonide 0.5 mg 11/20/18 09:45 11/27/18 07:47 Pulmicort IH 0.5 mg Q12HRT BEAN Administration Epoetin Prashant 10,000 unit 11/22/18 09:20 11/27/18 10:56 Procrit SUB-Q 10,000 unit KATERYNA PRN Administration hemodialysis Famotidine 10 mg 11/20/18 10:00 11/26/18 21:49 Pepcid PO 10 mg BID BEAN Administration Fluoxetine HCl 40 mg 11/20/18 10:00 11/26/18 10:42 Prozac PO 40 mg QDAY BEAN Administration Hydralazine HCl 20 mg 11/20/18 18:27 Apresoline IV Q4HR PRN SBP>160 or DBP>110 Sodium Chloride 100 mls @ 999 mls/hr 11/26/18 07:31 Nacl 0.9% IV KATERYNA PRN Hypotension Isosorbide Mononitrate 30 mg 11/20/18 15:00 11/26/18 10:43 Imdur PO 30 mg DAILY BEAN Administration Metoprolol Tartrate 25 mg 11/20/18 11:00 11/27/18 05:32 Lopressor PO 25 mg Q6HR BEAN Administration Morphine Sulfate 2 mg 11/20/18 15:44 11/27/18 09:42 Morphine IV 2 mg Q4H PRN Administration Pain, Moderate (4-6) Ondansetron HCl 4 mg 11/20/18 02:09 Zofran IV Q8H PRN Nausea And Vomiting Polyethylene Glycol 17 gm 11/20/18 06:34 Miralax 3350 PO QDAY PRN Constipation Senna/Docusate Sodium 1 tab 11/20/18 10:00 11/26/18 21:49 Senokot S PO 1 tab BID BEAN Administration Sodium Chloride 10 ml 11/20/18 10:00 11/26/18 21:52 Sodium Chloride Flush Syringe 10 Ml IV 10 ml BID BEAN Administration Sodium Chloride 10 ml 11/20/18 02:09 11/26/18 06:32 Sodium Chloride Flush Syringe 10 Ml IV 10 ml PRN PRN Administration LINE FLUSH Nutrition/Malnutrition Assess - Dietary Evaluation Nutrition/Malnutrition Findings: Nutrition Notes Start: 11/21/18 15:23 Freq: Status: Active Protocol: Document 11/25/18 14:51 RM (Rec: 11/25/18 14:57 RM [id number]) Nutrition Notes Initial or Follow up Reassessment Current Diagnosis Coronary Artery Disease, Hypertension,Heart Failure Other Pertinent Diagnosis PTSD, ESRD on HD, Pneu Current Diet Cardiac Labs/Tests No recent labs Pertinent Medications Reviewed Height 5 ft 9 in Weight 52.8 kg [place] Body Weight (kg) 72.72 BMI 17.2 Subjective/Other Information Pt stated that his appetite is good and that he is eating 100% of his meals. Also stated that he drinks the Ensure clear. Leather Worker requested BMP from MD. stated that pt is planned to be D/C'd soon and ordered for diet to be changed back to renal. Percent of energy/protein needs met: 83%/93% Burn Absent Trauma Absent #1 Nutrition Diagnosis Malnutrition Diagnosis Progress(for reassessment Continues documentation) Is patient on ventilator? No Is Patient Ambulatory and/or Out of Bed Yes REE-([place]-ambulatory/OOB) [ 1661.894 [id number]] Kcal/Kg value to use for calculation 37 Approximate Energy Requirements Using 1954 kcal/Kg Calculation Used for Recommendations Kcal/kg Additional Notes Protein Need: 67-72g (1.2-1.3g /kg) Fluid Needs: 1 ml/kcal Nutrition Intervention Change Diet Order: Renal Add Supplement/Snack (indicate name/kcal Ensure Clear BID (M/W/F/Sun) /protein ) Provides kCal: 480 Provides Protein (gm) 16 Goal #1 Continue to meet at least 75% of calorie and protein needs via PO and ONS intakes Anticipated Discharge Needs: Renal diet Follow-Up By: 11/28/18 Additional Comments Follow for PO and ONS intakes
[2018-11-27 12:35] LABS: Hematocrit 38.7 % (35.5-45.6); Hemoglobin 12.8 gm/dl (11.8-15.2); Mean Corpuscular HGB Conc 33 % (32-34); Mean Corpuscular Volume 99 fl (84-94); Platelet Count 177 K/mm3 (140-440); Red Cell Distribution Width 15.7 % (13.2-15.2)
[2018-11-27] MEDS: IMDUR PO SCH (13:43)
[2018-11-27] MEDS: SENOKOT S PO SCH (13:43)
[2018-11-27] MEDS: PROzac PO SCH (13:43)
[2018-11-27] MEDS: PEPCID PO SCH (13:43)
[2018-11-27] MEDS: NORVASC PO SCH (13:43)
[2018-11-27] MEDS ORDERED: D50W (25GM) Syringe IV PRN (16:45)
[2018-11-28] MEDS: HumuLIN R SUB-Q SCH ×4 (01:26→17:23)
[2018-11-28] MEDS: SODIUM CHLORIDE FLUSH SYRINGE 10 ML IV SCH ×2 (01:26→15:19)
[2018-11-28] MEDS: LOPRESSOR PO SCH ×4 (01:29→18:21)
[2018-11-28] MEDS: PEPCID PO SCH ×3 (01:29→22:05)
[2018-11-28] MEDS: SENOKOT S PO SCH ×3 (01:29→22:06)
[2018-11-28] MEDS: MORPHINE IV PRN ×4 (03:53→20:37)
[2018-11-28] MEDS: PULMICORT IH SCH ×2 (08:22→21:39)
[2018-11-28] MEDS: BROVANA NEBU IH SCH ×2 (08:22→21:39)
--- NOTE | 2018-11-28 09:30 | Progress Note ---
Assessment and Plan 1. ESRD: Continue hemodialysis three times a week, TTS schedule. 2. FEN: Hyperkalemia, s/p HD yesterday. Suspected volume overload, UF with HD as tolerated. Monitor lytes. 3. A.fib with RVR: Rate controlled. 4. DM type 2. 5. Chronic pleural effusion: Unable to do Thoracentesis due to very little pleural fluid left. Likely the pleural effusion has improved with UF during HD. 6. Anemia: Epogen with HD. 7. PAD. Subjective Date of service: 11/28/18 Interval history: Patient was seen an examined at the bedside. Doing ok. Objective - Vital Signs Vital signs: Vital Signs - 12hr 11/27/18 11/28/18 11/28/18 23:41 04:50 08:16 Temperature 98.1 F 98.5 F 97.7 F Pulse Rate 67 64 60 Pulse Rate [ Bilateral] Respiratory 18 18 14 Rate Respiratory Rate [Bilateral ] Blood Pressure 117/74 121/85 120/86 O2 Sat by Pulse 100 100 100 Oximetry 11/28/18 11/28/18 08:22 09:00 Temperature Pulse Rate 64 Pulse Rate [ 73 Bilateral] Respiratory Rate Respiratory 18 Rate [Bilateral ] Blood Pressure O2 Sat by Pulse Oximetry - General Appearance General appearance: well-developed, appears stated age, other (no distress, R IJ tunnel catheter) EENT: ATNC, PERRL, hearing intact, vision intact Neck: supple Respiratory: Present: Clear to Ascultation Cardiology: irregularly irregular, S1S2, no murmurs Gastrointestinal: normoactive bowel sounds, no tenderness, no distended Integumentary: warm and dry Neurologic: no focal deficit, no asterixis, alert and oriented x3 Musculoskeletal: other (no edema, L forearm amputation) - Lab 11/27/18 Unknown 11/27/18 05:46 Most recent lab results Calcium 8.8 mg/dL (8.4-10.2) 11/27/18 05:46 Phosphorus 5.00 mg/dL (2.5-4.5) H 11/26/18 04:54 Medications & Allergies - Medications Allergies/Adverse Reactions: Allergies aspirin Allergy (Verified 03/16/17 01:25) Unknown stomach cramps pork derived (porcine) Allergy (Verified 03/16/17 01:27) Rash venom-honey bee [bee venom (honey bee)] Allergy (Verified 03/16/17 01:27) Anaphylaxis Pork/Porcine Containing Products Adverse Reaction (Severe, Verified 02/13/17 09:31) Nausea,VOMITING Home Medications: Home Medications Medication Instructions Recorded Confirmed Last Taken Type Acetaminophen [Acetaminophen TAB] 650 mg PO Q4H PRN tablet 05/05/18 11/20/18 09/21/18 Rx Apixaban [Eliquis] 2.5 mg PO Q12HR #60 tablet 09/05/18 11/20/18 09/21/18 Rx AtorvaSTATin [Lipitor] 40 mg PO QHS #30 tablet 09/05/18 11/20/18 09/21/18 Rx Epoetin Prashant 10,000 Unit [Procrit] 10,000 unit SUB-Q KATERYNA PRN #30 vial 09/05/18 11/20/18 09/21/18 Rx FLUoxetine HCL [Fluoxetine HCl] 40 mg PO QDAY #30 capsule 09/05/18 11/20/18 09/21/18 Rx Famotidine [Pepcid] 10 mg PO BID #15 tablet 09/05/18 11/20/18 09/21/18 Rx Fe Fumarate/FA/Mv, Min Comb#15 1 each PO QDAY #30 capsule 09/05/18 11/20/18 09/21/18 Rx [Hemocyte Plus] ISOSORBIDE MONOnitrate [Imdur ER] 30 mg PO QDAY #30 tablet 09/05/18 11/20/18 09/21/18 Rx Losartan [Cozaar] 100 mg PO QDAY 30 Days tablet 09/05/18 11/20/18 09/21/18 Rx Metoprolol Xl [Metoprolol 100 mg PO QDAY #30 tablet 09/05/18 11/20/18 09/21/18 Rx SUCCINATE ER TAB] Polyethylene Glycol 3350 [Miralax 17 gm PO QDAY PRN powd.pack 09/05/18 11/20/18 09/21/18 Rx 3350] Sennosides/Docusate [Senokot S] 1 tab PO BID tablet 09/05/18 11/20/18 09/21/18 Rx amLODIPine [Norvasc] 10 mg PO DAILY #30 tablet 09/05/18 11/20/18 09/21/18 Rx hydrALAZINE [Apresoline TAB] 50 mg PO BID 11/06/18 11/20/18 Unknown History Mag Hydrox/Aluminum Hyd/Simeth 355 ml PO DAILY PRN 15 Days 11/08/18 11/20/18 Unknown Rx [Maalox Advanced Suspension] oral.susp Active Medications: Generic Name Dose Route Start Last Admin Trade Name Freq PRN Reason Stop Dose Admin Acetaminophen 650 mg 11/20/18 02:09 11/24/18 21:21 Tylenol PO 650 mg Q4H PRN Administration Pain MILD(1-3)/Fever >100.5/DOUGLAS Albuterol 2.5 mg 11/20/18 22:12 Proventil IH Q4HRT PRN Shortness Of Breath Amlodipine Besylate 10 mg 11/20/18 15:00 11/27/18 13:43 Norvasc PO 10 mg DAILY BEAN Administration Arformoterol Tartrate 15 mcg 11/20/18 09:45 11/28/18 08:22 Brovana Nebu IH 15 mcg Q12HRT BEAN Administration Atorvastatin Calcium 40 mg 11/20/18 22:00 11/28/18 01:29 Lipitor PO Not Given QHS BEAN Budesonide 0.5 mg 11/20/18 09:45 11/28/18 08:22 Pulmicort IH 0.5 mg Q12HRT BEAN Administration Dextrose 50 ml 11/27/18 16:45 D50w (25gm) Syringe IV PRN PRN Hypoglycemia Epoetin Prashant 10,000 unit 11/22/18 09:20 11/27/18 10:56 Procrit SUB-Q 10,000 unit KATERYNA PRN Administration hemodialysis Famotidine 10 mg 11/20/18 10:00 11/28/18 01:29 Pepcid PO Not Given BID BEAN Fluoxetine HCl 40 mg 11/20/18 10:00 11/27/18 13:43 Prozac PO 40 mg QDAY BEAN Administration Hydralazine HCl 20 mg 11/20/18 18:27 Apresoline IV Q4HR PRN SBP>160 or DBP>110 Sodium Chloride 100 mls @ 999 mls/hr 11/26/18 07:31 Nacl 0.9% IV KATERYNA PRN Hypotension Insulin Human Regular 0 units 11/27/18 22:00 11/28/18 09:00 Humulin R SUB-Q Not Given ACHS BEAN Protocol Isosorbide Mononitrate 30 mg 11/20/18 15:00 11/27/18 13:43 Imdur PO 30 mg DAILY BEAN Administration Metoprolol Tartrate 25 mg 11/20/18 11:00 11/28/18 05:18 Lopressor PO 25 mg Q6HR BEAN Administration Morphine Sulfate 2 mg 11/20/18 15:44 11/28/18 08:24 Morphine IV 2 mg Q4H PRN Administration Pain, Moderate (4-6) Ondansetron HCl 4 mg 11/20/18 02:09 Zofran IV Q8H PRN Nausea And Vomiting Polyethylene Glycol 17 gm 11/20/18 06:34 Miralax 3350 PO QDAY PRN Constipation Senna/Docusate Sodium 1 tab 11/20/18 10:00 11/28/18 01:29 Senokot S PO Not Given BID BEAN Sodium Chloride 10 ml 11/20/18 10:00 11/28/18 01:26 Sodium Chloride Flush Syringe 10 Ml IV Not Given BID BEAN Sodium Chloride 10 ml 11/20/18 02:09 11/26/18 06:32 Sodium Chloride Flush Syringe 10 Ml IV 10 ml PRN PRN Administration LINE FLUSH
--- NOTE | 2018-11-28 09:52 | Ultrasound Report ---
ULTRASOUND CHEST History: Left pleural effusion Findings: This was scheduled today an ultrasound guided left thoracentesis. Initial scan the left side of the chest demonstrates a small left pleural collection estimated at 100 cc. No radiographic window large enough for thoracentesis. Impression: Small left pleural effusion.
--- NOTE | 2018-11-28 11:43 | Progress Note ---
Assessment and Plan Assessment and plan: Abdominal pain. Patient complaining of left upper and lower quadrant abdominal pain. CT scan of the abdomen and pelvis. Left pleural effusion. No radiographic window available for thoracentesis. There is less than 100 mL of pleural fluid noted. Pleural effusion likely resolved with hemodialysis. Chronic systolic heart failure/nonischemic cardiomyopathy Continue medical therapy for nonischemic cardiomyopathy and chronic systolic heart failure. Continue hemodialysis for fluid management. Chronic and constant atypical chest pain DM type II. Continue Accu-Cheks and sliding scale insulin. PVD s/p left arm amputation Hypertension. Continue antihypertensive medications. Hydralazine when necessary. Hyperlipidemia. Continue Lipitor. ESRD on hemodialysis Thrombocytopenia, chronic Hx of Nonischemic CMP, EF 40% Non-obstructive CAD. LHC 01/2017 revealed non-obstructive, single vessel disease of the proximal LAD recommended for medical therapy. Normal perfusion MPI at [facility] 10/03/18. Permanent Atrial fibrillation. Rate controlled with metoprolol 25 mg by mouth every 6 hours. Resume eliquis since thoracentesis could not be completed. History Interval history: Patient is 71-year-old man with a history of end-stage renal disease on dialysis, hypertension, CHF, A. fib, coronary artery disease, PTSD presented to emergency room with complaints of shortness of breath, wheezing, chest pain. He was found to be in A. fib with RVR in the field, started on a Cardizem drip in the emergency room, admitted. He was later weaned off Cardizem drip, placed on oral Lopressor. For chest pain was evaluated by cardiology, chest pain determined to be non cardiac. He has large left pleural effusion. I discussed with Pulmonology and US guided thoracentesis left recommended. This was ordered, but he was on Eliquis for afib and this was put on hold. The pt however went down for the exam and there was no radiographic window large enough for th oracentesis. Only approximately 100 mL of fluid collection was estimated. Confusion likely resolved with hemodialysis. Patient now complains of primarily left upper quadrant and left lower quadrant abdominal pain. No new issues overnight. Hospitalist Physical - Constitutional Vitals: Temp Pulse Resp BP Pulse Ox 97.7 F 64 18 120/86 100 11/28/18 08:16 11/28/18 09:00 11/28/18 08:39 11/28/18 08:16 11/28/18 09:39 General appearance: Present: no acute distress - EENT Eyes: Present: PERRL, EOM intact ENT: hearing intact, clear oral mucosa, dentition normal - Neck Neck: Present: supple, normal ROM - Respiratory Respiratory effort: normal Respiratory: bilateral: CTA - Cardiovascular Rhythm: regular Heart Sounds: Present: S1 & S2. Absent: gallop, rub - Extremities Extremities: no ischemia, No edema, Full ROM - Abdominal General gastrointestinal: soft, non-tender, non-distended, normal bowel sounds - Integumentary Integumentary: Present: clear, warm, dry - Neurologic Neurologic: CNII-XII intact, moves all extremities Results - Labs CBC & Chem 7: 11/27/18 Unknown 11/27/18 05:46 Labs: Laboratory Last Values WBC 4.6 K/mm3 (4.5-11.0) 11/27/18 Unknown RBC 3.90 M/mm3 (3.65-5.03) 11/27/18 Unknown Hgb 12.8 gm/dl (11.8-15.2) 11/27/18 Unknown Hct 38.7 % (35.5-45.6) D 11/27/18 Unknown MCV 99 fl (84-94) H 11/27/18 Unknown MCH 33 pg (28-32) H 11/27/18 Unknown MCHC 33 % (32-34) 11/27/18 Unknown RDW 15.7 % (13.2-15.2) H 11/27/18 Unknown Plt Count 177 K/mm3 (140-440) 11/27/18 Unknown Lymph % (Auto) 24.4 % (13.4-35.0) 11/26/18 04:54 [place] % (Auto) 9.7 % (0.0-7.3) H 11/26/18 04:54 Eos % (Auto) 2.9 % (0.0-4.3) 11/26/18 04:54 Baso % (Auto) 0.5 % (0.0-1.8) 11/26/18 04:54 Lymph # 0.9 K/mm3 (1.2-5.4) L 11/26/18 04:54 [place] # 0.4 K/mm3 (0.0-0.8) 11/26/18 04:54 Eos # 0.1 K/mm3 (0.0-0.4) 11/26/18 04:54 Baso # 0.0 K/mm3 (0.0-0.1) 11/26/18 04:54 Seg Neutrophils % 62.5 % (40.0-70.0) 11/26/18 04:54 Seg Neutrophils # 2.4 K/mm3 (1.8-7.7) 11/26/18 04:54 PT 19.0 Sec. (12.2-14.9) H 11/20/18 00:17 INR 1.49 (0.87-1.13) H 11/20/18 00:17 APTT 36.1 Sec. (24.2-36.6) 11/20/18 00:17 Sodium 132 mmol/L (137-145) L D 11/27/18 05:46 Potassium 5.2 mmol/L (3.6-5.0) H 11/27/18 05:46 Chloride 93.3 mmol/L (98-107) L 11/27/18 05:46 Carbon Dioxide 24 mmol/L (22-30) 11/27/18 05:46 20 mmol/L 11/27/18 05:46 BUN 37 mg/dL (9-20) H 11/27/18 05:46 5.0 mg/dL (0.8-1.5) H 11/27/18 05:46 Estimated GFR 14 ml/min 11/27/18 05:46 7 % 11/27/18 05:46 Glucose 134 mg/dL (75-100) H 11/27/18 05:46 POC Glucose 72 (70-105) 11/28/18 08:21 Calcium 8.8 mg/dL (8.4-10.2) 11/27/18 05:46 Phosphorus 5.00 mg/dL (2.5-4.5) H 11/26/18 04:54 0.30 mg/dL (0.1-1.2) 11/26/18 04:54 AST 89 units/L (5-40) H 11/26/18 04:54 ALT 75 units/L (7-56) H 11/26/18 04:54 186 units/L (35-129) H 11/26/18 04:54 108 units/L (55-170) 11/20/18 09:29 CK-MB (CK-2) 4.6 ng/mL (0.0-4.0) H 11/20/18 09:29 CK-MB (CK-2) Rel Index 4.2 (0-4) H 11/20/18 09:29 0.219 ng/mL (0.00-0.029) H* 11/20/18 09:29 NT-Pro-B Natriuret Pep > 20836 pg/mL (0-900) H 11/20/18 00:17 6.8 g/dL (6.3-8.2) 11/26/18 04:54 3.0 g/dL (3.9-5) L 11/26/18 04:54 0.8 % 11/26/18 04:54 Triglycerides 83 mg/dL (2-149) 11/20/18 00:17 Cholesterol 94 mg/dL (50-199) 11/20/18 00:17 32 mg/dL (50-130) L 11/20/18 00:17 50 mg/dL (40-59) 11/20/18 00:17 1.88 % 11/20/18 00:17 Hepatitis A IgM Ab Non-reactive (NonReactive) 11/21/18 13:18 Hep Bs Antigen Non-reactive (Negative) 11/21/18 13:18 Hep B Core IgM Ab Non-reactive (NonReactive) 11/21/18 13:18 Reactive (NonReactive) A 11/21/18 13:18 Active Medications - Current Medications Current Medications: Generic Name Dose Route Start Last Admin Trade Name Freq PRN Reason Stop Dose Admin Acetaminophen 650 mg 11/20/18 02:09 11/24/18 21:21 Tylenol PO 650 mg Q4H PRN Administration Pain MILD(1-3)/Fever >100.5/DOUGLAS Albuterol 2.5 mg 11/20/18 22:12 Proventil IH Q4HRT PRN Shortness Of Breath Amlodipine Besylate 10 mg 11/20/18 15:00 11/27/18 13:43 Norvasc PO 10 mg DAILY BEAN Administration Arformoterol Tartrate 15 mcg 11/20/18 09:45 11/28/18 08:22 Brovana Nebu IH 15 mcg Q12HRT BEAN Administration Atorvastatin Calcium 40 mg 11/20/18 22:00 11/28/18 01:29 Lipitor PO Not Given QHS BEAN Budesonide 0.5 mg 11/20/18 09:45 11/28/18 08:22 Pulmicort IH 0.5 mg Q12HRT BEAN Administration Dextrose 50 ml 11/27/18 16:45 D50w (25gm) Syringe IV PRN PRN Hypoglycemia Epoetin Prashant 10,000 unit 11/22/18 09:20 11/27/18 10:56 Procrit SUB-Q 10,000 unit KATERYNA PRN Administration hemodialysis Famotidine 10 mg 11/20/18 10:00 11/28/18 01:29 Pepcid PO Not Given BID [facility] Fluoxetine HCl 40 mg 11/20/18 10:00 11/27/18 13:43 Prozac PO 40 mg QDAY BEAN Administration Hydralazine HCl 20 mg 11/20/18 18:27 Apresoline IV Q4HR PRN SBP>160 or DBP>110 Sodium Chloride 100 mls @ 999 mls/hr 11/26/18 07:31 Nacl 0.9% IV KATERYNA PRN Hypotension Insulin Human Regular 0 units 11/27/18 22:00 11/28/18 09:00 Humulin R SUB-Q Not Given ACHS [facility] Protocol Isosorbide Mononitrate 30 mg 11/20/18 15:00 11/27/18 13:43 Imdur PO 30 mg DAILY [facility] Administration Metoprolol Tartrate 25 mg 11/20/18 11:00 11/28/18 05:18 Lopressor PO 25 mg Q6HR [facility] Administration Morphine Sulfate 2 mg 11/20/18 15:44 11/28/18 08:24 Morphine IV 2 mg Q4H PRN Administration Pain, Moderate (4-6) Ondansetron HCl 4 mg 11/20/18 02:09 Zofran IV Q8H PRN Nausea And Vomiting Polyethylene Glycol 17 gm 11/20/18 06:34 Miralax 3350 PO QDAY PRN Constipation Senna/Docusate Sodium 1 tab 11/20/18 10:00 11/28/18 01:29 Senokot S PO Not Given BID [facility] Sodium Chloride 10 ml 11/20/18 10:00 11/28/18 01:26 Sodium Chloride Flush Syringe 10 Ml IV Not Given BID BEAN Sodium Chloride 10 ml 11/20/18 02:09 11/26/18 06:32 Sodium Chloride Flush Syringe 10 Ml IV 10 ml PRN PRN Administration LINE FLUSH Nutrition/Malnutrition Assess - Dietary Evaluation Nutrition/Malnutrition Findings: Nutrition Notes Start: 11/21/18 15:23 Freq: Status: Active Protocol: Document 11/25/18 14:51 RM (Rec: 11/25/18 14:57 RM [id number]) Nutrition Notes Initial or Follow up Reassessment Current Diagnosis Coronary Artery Disease, Hypertension,Heart Failure Other Pertinent Diagnosis PTSD, ESRD on HD, Pneu Current Diet Cardiac Labs/Tests No recent labs Pertinent Medications Reviewed Height 5 ft 9 in Weight 52.8 kg [place] Body Weight (kg) 72.72 BMI 17.2 Subjective/Other Information Pt stated that his appetite is good and that he is eating 100% of his meals. Also stated that he drinks the Ensure clear. Kindergarten Assistant requested BMP from . stated that pt is planned to be D/C'd soon and ordered for diet to be changed back to renal. Percent of energy/protein needs met: 83%/93% Burn Absent Trauma Absent #1 Nutrition Diagnosis Malnutrition Diagnosis Progress(for reassessment Continues documentation) Is patient on ventilator? No Is Patient Ambulatory and/or Out of Bed Yes REE-([facility]-ambulatory/OOB) [ 1551.894 [id number]] Kcal/Kg value to use for calculation 37 Approximate Energy Requirements Using 1954 kcal/Kg Calculation Used for Recommendations Kcal/kg Additional Notes Protein Need: 67-72g (1.2-1.3g /kg) Fluid Needs: 1 ml/kcal Nutrition Intervention Change Diet Order: Renal Add Supplement/Snack (indicate name/kcal Ensure Clear BID (M/W/F/Sun) /protein ) Provides kCal: 480 Provides Protein (gm) 16 Goal #1 Continue to meet at least 75% of calorie and protein needs via PO and ONS intakes Anticipated Discharge Needs: Renal diet Follow-Up By: 11/28/18 Additional Comments Follow for PO and ONS intakes
[2018-11-28] MEDS: PROzac PO SCH ×2 (12:18→12:24)
[2018-11-28] MEDS: IMDUR PO SCH (12:19)
[2018-11-28] MEDS: NORVASC PO SCH (12:19)
--- NOTE | 2018-11-28 18:15 | Cat Scan Report ---
PROCEDURE: CT ABDOMEN PELVIS WO CON TECHNIQUE: Computerized axial tomography of the abdomen and pelvis was performed without intravenous contrast. This study is performed without intravascular contrast material and its sensitivity for ab dominal and pelvic pathology, including neoplasms, inflammation, abscess, free fluid, thrombosis, art erial dissection and infarction, is reduced compared with a contrast enhanced study. CT DOSE LENGTH PRODUCT: 361.7 mGycm HISTORY: L upper and lower quad abd pain COMPARISONS: None . FINDINGS: Visualized lower thorax: Cardiomegaly. Bilateral pleural effusions, left greater than right and left lung base airspace consolidation. Liver: Normal size and attenuation. Spleen: Normal size and attenuation. Gallbladder and biliary system: Gallbladder is not identified. Pancreas: Normal. Adrenals: Normal. Kidneys: Bilateral cystic changes of the kidneys. GI tract: No appendiceal inflammation the colon is not fully distended, however there may be mild di ffuse colonic wall thickening, suggesting a nonspecific colitis. No acute inflammatory changes are se en. No bowel obstruction . Lymph nodes and mesentery: Normal. Vasculature: Diffuse arterial calcification Bladder: Normal. Reproductive organs: Normal. Peritoneum: No free fluid. Musculoskeletal structures: Diffuse sclerotic changes of the osseous structures, likely related to re nal osteodystrophy. There has been posterior fusion at L5-S1. IMPRESSION: Diffuse colonic wall thickening is likely accentuated by lack of distention, however findings could a lso be related to nonspecific diffuse mild colitis. No significant acute inflammatory changes are see n. No bowel obstruction. Other findings as above. This document is electronically signed by Lois Liao MD., November 28 2018 06:13:07 PM ET
[2018-11-28] MEDS: ELIQUIS PO SCH (22:06)
[2018-11-29] MEDS: LOPRESSOR PO SCH ×5 (00:22→23:04)
[2018-11-29] MEDS: MORPHINE IV PRN ×5 (00:23→19:41)
[2018-11-29] MEDS: SODIUM CHLORIDE FLUSH SYRINGE 10 ML IV SCH ×3 (06:05→23:05)
[2018-11-29] MEDS: HumuLIN R SUB-Q SCH ×5 (06:05→23:12)
[2018-11-29] MEDS: PULMICORT IH SCH ×2 (07:33→19:47)
[2018-11-29] MEDS: BROVANA NEBU IH SCH ×2 (07:33→19:46)
[2018-11-29] MEDS: PROzac PO SCH (09:21)
[2018-11-29] MEDS: ELIQUIS PO SCH ×2 (09:21→23:04)
[2018-11-29] MEDS: IMDUR PO SCH (09:21)
[2018-11-29] MEDS: PEPCID PO SCH ×2 (09:22→23:04)
[2018-11-29] MEDS: NORVASC PO SCH (09:22)
[2018-11-29] MEDS: SENOKOT S PO SCH ×2 (09:22→23:05)
--- NOTE | 2018-11-29 09:53 | Progress Note ---
Assessment and Plan 1. ESRD: Continue hemodialysis three times a week, TTS schedule. 2. FEN: Hyperkalemia, HD today. Suspected volume overload, UF with HD as tolerated. Monitor lytes. 3. A.fib with RVR: Rate controlled. 4. DM type 2. 5. Chronic pleural effusion: Unable to do Thoracentesis due to very little pleural fluid left. Likely the pleural effusion has improved with UF during HD. 6. Anemia: Epogen with HD. 7. PAD. Subjective Date of service: 11/29/18 Interval history: Patient was seen an examined at the bedside. Doing ok. Objective - Vital Signs Vital signs: Vital Signs - 12hr 11/28/18 11/28/18 11/28/18 22:00 23:42 23:43 Temperature 97.7 F Pulse Rate 76 50 L Pulse Rate [ Bilateral] Respiratory 18 Rate Respiratory Rate [Bilateral ] Blood Pressure 126/81 O2 Sat by Pulse 100 Oximetry 11/29/18 11/29/18 11/29/18 00:22 04:33 04:37 Temperature 97.6 F Pulse Rate 58 L 60 Pulse Rate [ Bilateral] Respiratory 18 Rate Respiratory Rate [Bilateral ] Blood Pressure 126/81 138/103 O2 Sat by Pulse 100 Oximetry 11/29/18 11/29/18 11/29/18 06:07 07:33 07:34 Temperature Pulse Rate 60 Pulse Rate [ 62 Bilateral] Respiratory Rate Respiratory 19 Rate [Bilateral ] Blood Pressure 138/103 O2 Sat by Pulse 100 Oximetry 11/29/18 09:18 Temperature 97.7 F Pulse Rate 74 Pulse Rate [ Bilateral] Respiratory 14 Rate Respiratory Rate [Bilateral ] Blood Pressure 122/88 O2 Sat by Pulse 100 Oximetry - General Appearance General appearance: well-developed, appears stated age, other (no distress, R IJ tunnel catheter) EENT: ATNC, PERRL, hearing intact, vision intact Neck: supple Respiratory: Present: Clear to Ascultation Cardiology: irregularly irregular, S1S2, no murmurs Gastrointestinal: normoactive bowel sounds, no tenderness, no distended Integumentary: warm and dry Neurologic: no focal deficit, no asterixis, alert and oriented x3 Musculoskeletal: other (no edema, L forearm amputated) - Lab 11/27/18 Unknown 11/27/18 05:46 Most recent lab results Calcium 8.8 mg/dL (8.4-10.2) 11/27/18 05:46 Phosphorus 5.00 mg/dL (2.5-4.5) H 11/26/18 04:54 Medications & Allergies - Medications Allergies/Adverse Reactions: Allergies aspirin Allergy (Verified 03/16/17 01:25) Unknown stomach cramps pork derived (porcine) Allergy (Verified 03/16/17 01:27) Rash venom-honey bee [bee venom (honey bee)] Allergy (Verified 03/16/17 01:27) Anaphylaxis Pork/Porcine Containing Products Adverse Reaction (Severe, Verified 02/13/17 09:31) Nausea,VOMITING Home Medications: Home Medications Medication Instructions Recorded Confirmed Last Taken Type Acetaminophen [Acetaminophen TAB] 650 mg PO Q4H PRN tablet 05/05/18 11/20/18 09/21/18 Rx Apixaban [Eliquis] 2.5 mg PO Q12HR #60 tablet 09/05/18 11/20/18 09/21/18 Rx AtorvaSTATin [Lipitor] 40 mg PO QHS #30 tablet 09/05/18 11/20/18 09/21/18 Rx Epoetin Prashant 10,000 Unit [Procrit] 10,000 unit SUB-Q KATERYNA PRN #30 vial 09/05/18 11/20/18 09/21/18 Rx FLUoxetine HCL [Fluoxetine HCl] 40 mg PO QDAY #30 capsule 09/05/18 11/20/18 09/21/18 Rx Famotidine [Pepcid] 10 mg PO BID #15 tablet 09/05/18 11/20/18 09/21/18 Rx Fe Fumarate/FA/Mv, Min Comb#15 1 each PO QDAY #30 capsule 09/05/18 11/20/18 04/11/04 Rx [Hemocyte Plus] ISOSORBIDE MONOnitrate [Imdur ER] 30 mg PO QDAY #30 tablet 09/05/18 11/20/18 09/21/18 Rx Losartan [Cozaar] 100 mg PO QDAY 30 Days tablet 09/05/18 11/20/18 09/21/18 Rx Metoprolol Xl [Metoprolol 100 mg PO QDAY #30 tablet 09/05/18 11/20/18 09/21/18 Rx SUCCINATE ER TAB] Polyethylene Glycol 3350 [Miralax 17 gm PO QDAY PRN powd.pack 09/05/18 11/20/18 09/21/18 Rx 3350] Sennosides/Docusate [Senokot S] 1 tab PO BID tablet 09/05/18 11/20/18 09/21/18 Rx amLODIPine [Norvasc] 10 mg PO DAILY #30 tablet 09/05/18 11/20/18 09/21/18 Rx hydrALAZINE [Apresoline TAB] 50 mg PO BID 11/06/18 11/20/18 Unknown History Mag Hydrox/Aluminum Hyd/Simeth 355 ml PO DAILY PRN 15 Days 11/08/18 11/20/18 Unknown Rx [Maalox Advanced Suspension] oral.susp Active Medications: Generic Name Dose Route Start Last Admin Trade Name Freq PRN Reason Stop Dose Admin Acetaminophen 650 mg 11/20/18 02:09 11/24/18 21:21 Tylenol PO 650 mg Q4H PRN Administration Pain MILD(1-3)/Fever >100.5/DOUGLAS Albuterol 2.5 mg 11/20/18 22:12 Proventil IH Q4HRT PRN Shortness Of Breath Amlodipine Besylate 10 mg 11/20/18 15:00 11/29/18 09:22 Norvasc PO 10 mg DAILY BEAN Administration Apixaban 2.5 mg 11/28/18 22:00 11/29/18 09:21 Eliquis PO 2.5 mg Q12HR BEAN Administration Protocol Arformoterol Tartrate 15 mcg 11/20/18 09:45 11/29/18 07:33 Brovana Nebu IH 15 mcg Q12HRT BEAN Administration Atorvastatin Calcium 40 mg 11/20/18 22:00 11/28/18 22:05 Lipitor PO 40 mg QHS BEAN Administration Budesonide 0.5 mg 11/20/18 09:45 11/29/18 07:33 Pulmicort IH 0.5 mg Q12HRT BEAN Administration Dextrose 50 ml 11/27/18 16:45 D50w (25gm) Syringe IV PRN PRN Hypoglycemia Epoetin Prashant 10,000 unit 11/22/18 09:20 11/27/18 10:56 Procrit SUB-Q 10,000 unit KATERYNA PRN Administration hemodialysis Famotidine 10 mg 11/20/18 10:00 11/29/18 09:22 Pepcid PO 10 mg BID BEAN Administration Fluoxetine HCl 40 mg 11/20/18 10:00 11/29/18 09:21 Prozac PO Not Given QDAY BEAN Hydralazine HCl 20 mg 11/20/18 18:27 Apresoline IV Q4HR PRN SBP>160 or DBP>110 Sodium Chloride 100 mls @ 999 mls/hr 11/26/18 07:31 Nacl 0.9% IV KATERYNA PRN Hypotension Metronidazole 500 mg in 100 mls @ 100 mls/hr 11/29/18 14:00 Flagyl 500 Mg/100 Ml IV Q8HR [facility] Protocol Levofloxacin/Dextrose 500 mg in 100 mls @ 100 mls/hr 11/29/18 10:00 Levaquin 500mg/100ml IV Q24HR [facility] Protocol Insulin Human Regular 0 units 11/27/18 22:00 11/29/18 09:22 Humulin R SUB-Q Not Given ACHS [facility] Protocol Isosorbide Mononitrate 30 mg 11/20/18 15:00 11/29/18 09:21 Imdur PO 30 mg DAILY BEAN Administration Metoprolol Tartrate 25 mg 11/20/18 11:00 11/29/18 06:07 Lopressor PO 25 mg Q6HR BEAN Administration Morphine Sulfate 2 mg 11/20/18 15:44 11/29/18 09:22 Morphine IV 2 mg Q4H PRN Administration Pain, Moderate (4-6) Ondansetron HCl 4 mg 11/20/18 02:09 Zofran IV Q8H PRN Nausea And Vomiting Polyethylene Glycol 17 gm 11/20/18 06:34 Miralax 3350 PO QDAY PRN Constipation Senna/Docusate Sodium 1 tab 11/20/18 10:00 11/29/18 09:22 Senokot S PO 1 tab BID BEAN Administration Sodium Chloride 10 ml 11/20/18 10:00 11/29/18 09:23 Sodium Chloride Flush Syringe 10 Ml IV 10 ml BID BEAN Administration Sodium Chloride 10 ml 11/20/18 02:09 11/26/18 06:32 Sodium Chloride Flush Syringe 10 Ml IV 10 ml PRN PRN Administration LINE FLUSH
[2018-11-29] MEDS ORDERED: LEVAQUIN 500MG/100ML 500 MG/100 ML BAG IV SCH ×2 (10:00→14:00)
[2018-11-29] MEDS ORDERED: NACL 0.9% 100 ML IV PRN (10:36)
--- NOTE | 2018-11-29 11:12 | Gastroenterology Consultation ---
<CHRIS GRESHAM - Last Filed: 11/29/18 11:29> History of Present Illness - Reason for Consult Consult date: 11/29/18 colitis Requesting physician: GLADIS DONG - History of Present Illness Patient is a 71 y/o male with PMH of ESRD on HD, anemia, HTN, CAD, CHF, DM, PVD, hyperlipidemia, and PTSD who presented to ED with c/o SOB and CP. Upon admission, he was found to have Afib with RVR and a large left pleural effusion to which he is being treated. He c/o abdominal pain yesterday and underwent an abd CT that showed colitis to which GI has been consulted. This morning patient was resting in bed w/o acute distress. He reports an onset of abdominal pain a couple of days ago that is predominately in lower abdomen. Had a BM yesterday with loose stool but has not had a BM so far today. No blood in stool. Baseline bowel habit is ~3x/week. Denies N/V. Tolerating diet. He was recently treated with antibiotics for pneumonia. Had a previous colonoscopy but is unable to tell me details on timing or results (noted to be a poor historian), however he denies any hx of Fhx of IBD. Past History Past Medical History: other (see HPI) Past Surgical History: Other (clot removal in left upper extremity left arm amputation, multiple fingers amputation, AV fistula, neck and back surgery) Social history: other (former smoker). denies: alcohol abuse Family history: hypertension Medications and Allergies Allergies Allergy/AdvReac Type Severity Reaction Status Date / Time aspirin Allergy Unknown Verified 03/16/17 01:25 pork derived (porcine) Allergy Rash Verified 03/16/17 01:27 venom-honey bee Allergy Anaphylaxis Verified 03/16/17 01:27 [bee venom (honey bee)] Pork/Porcine Containing AdvReac Severe Nausea,VOMI Verified 02/13/17 09:31 Products TING Home Medications Medication Instructions Recorded Confirmed Last Taken Type Acetaminophen [Acetaminophen TAB] 650 mg PO Q4H PRN tablet 05/05/18 11/20/18 09/21/18 Rx Apixaban [Eliquis] 2.5 mg PO Q12HR #60 tablet 09/05/18 11/20/18 09/21/18 Rx FLUoxetine HCL [Fluoxetine HCl] 40 mg PO QDAY #30 capsule 09/05/18 11/20/18 09/21/18 Rx Famotidine [Pepcid] 10 mg PO BID #15 tablet 09/05/18 11/20/18 09/21/18 Rx Fe Fumarate/FA/Mv, Min Comb#15 1 each PO QDAY #30 capsule 09/05/18 11/20/18 09/21/18 Rx [Hemocyte Plus] ISOSORBIDE MONOnitrate [Imdur ER] 30 mg PO QDAY #30 tablet 09/05/18 11/20/18 09/21/18 Rx Losartan [Cozaar] 100 mg PO QDAY 30 Days tablet 09/05/18 11/20/18 09/21/18 Rx amLODIPine [Norvasc] 10 mg PO DAILY #30 tablet 09/05/18 11/20/18 09/21/18 Rx hydrALAZINE [Apresoline TAB] 50 mg PO BID 11/06/18 11/20/18 Unknown History Mag Hydrox/Aluminum Hyd/Simeth 355 ml PO DAILY PRN 15 Days 11/08/18 11/20/18 Unknown Rx [Maalox Advanced Suspension] oral.susp Apixaban [Eliquis] 2.5 mg PO Q12HR #60 tablet 12/01/18 Unknown Rx AtorvaSTATin [Lipitor] 40 mg PO QHS #30 tablet 12/01/18 Unknown Rx Epoetin Prashant 10,000 Unit [Procrit] 10,000 unit SUB-Q KATERYNA PRN #30 vial 12/01/18 Unknown Rx ISOSORBIDE MONOnitrate [Imdur ER] 30 mg PO DAILY #30 tablet 12/01/18 Unknown Rx Metoprolol Xl [Metoprolol 100 mg PO QDAY #30 tablet 12/01/18 Unknown Rx SUCCINATE ER TAB] Sennosides/Docusate [Senokot S] 1 tab PO BID #20 tablet 12/01/18 Unknown Rx amLODIPine [Norvasc] 10 mg PO DAILY #30 tablet 12/01/18 Unknown Rx levoFLOXacin [Levaquin TAB] 500 mg PO QDAY #7 tablet 12/01/18 Unknown Rx metroNIDAZOLE [Flagyl] 500 mg PO Q8HR #21 tablet 12/01/18 Unknown Rx Active Meds: Active Medications Acetaminophen (Tylenol) 650 mg PO Q4H PRN PRN Reason: Pain MILD(1-3)/Fever >100.5/DOUGLAS Last Admin: 11/24/18 21:21 Dose: 650 mg Documented by: Albuterol (Proventil) 2.5 mg IH Q4HRT PRN PRN Reason: Shortness Of Breath Amlodipine Besylate (Norvasc) 10 mg PO DAILY [facility] Last Admin: 11/29/18 09:22 Dose: 10 mg Documented by: Apixaban (Eliquis) 2.5 mg PO Q12HR [facility]; Protocol Last Admin: 11/29/18 09:21 Dose: 2.5 mg Documented by: Arformoterol Tartrate (Brovana Nebu) 15 mcg IH Q12HRT [facility] Last Admin: 11/29/18 07:33 Dose: 15 mcg Documented by: Atorvastatin Calcium (Lipitor) 40 mg PO QHS [facility] Last Admin: 11/28/18 22:05 Dose: 40 mg Documented by: Budesonide (Pulmicort) 0.5 mg IH Q12HRT [facility] Last Admin: 11/29/18 07:33 Dose: 0.5 mg Documented by: Dextrose (D50w (25gm) Syringe) 50 ml IV PRN PRN PRN Reason: Hypoglycemia Epoetin Prashant (Procrit) 10,000 unit SUB-Q KATERYNA PRN PRN Reason: hemodialysis Last Admin: 11/27/18 10:56 Dose: 10,000 unit Documented by: Famotidine (Pepcid) 10 mg PO BID [facility] Last Admin: 11/29/18 09:22 Dose: 10 mg Documented by: Fluoxetine HCl (Prozac) 40 mg PO QDAY [facility] Last Admin: 11/29/18 09:21 Dose: Not Given Documented by: Hydralazine HCl (Apresoline) 20 mg IV Q4HR PRN PRN Reason: SBP>160 or DBP>110 Sodium Chloride (Nacl 0.9%) 100 mls @ 999 mls/hr IV KATERYNA PRN PRN Reason: Hypotension Metronidazole (Flagyl 500 Mg/100 Ml) 500 mg in 100 mls @ 100 mls/hr IV Q8HR [facility]; Protocol Levofloxacin/Dextrose (Levaquin 500mg/100ml) 500 mg in 100 mls @ 100 mls/hr IV Q24HR [facility]; Protocol Sodium Chloride (Nacl 0.9%) 100 mls @ 999 mls/hr IV KATERYNA PRN PRN Reason: Hypotension Insulin Human Regular (Humulin R) 0 units SUB-Q ACHS [facility]; Protocol Last Admin: 11/29/18 09:22 Dose: Not Given Documented by: Isosorbide Mononitrate (Imdur) 30 mg PO DAILY [facility] Last Admin: 11/29/18 09:21 Dose: 30 mg Documented by: Metoprolol Tartrate (Lopressor) 25 mg PO Q6HR [facility] Last Admin: 11/29/18 06:07 Dose: 25 mg Documented by: Morphine Sulfate (Morphine) 2 mg IV Q4H PRN PRN Reason: Pain, Moderate (4-6) Last Admin: 11/29/18 09:22 Dose: 2 mg Documented by: Ondansetron HCl (Zofran) 4 mg IV Q8H PRN PRN Reason: Nausea And Vomiting Polyethylene Glycol (Miralax 3350) 17 gm PO QDAY PRN PRN Reason: Constipation Senna/Docusate Sodium (Senokot S) 1 tab PO BID [facility] Last Admin: 11/29/18 09:22 Dose: 1 tab Documented by: Sodium Chloride (Sodium Chloride Flush Syringe 10 Ml) 10 ml IV BID [facility] Last Admin: 11/29/18 09:23 Dose: 10 ml Documented by: Sodium Chloride (Sodium Chloride Flush Syringe 10 Ml) 10 ml IV PRN PRN PRN Reason: LINE FLUSH Last Admin: 11/26/18 06:32 Dose: 10 ml Documented by: medications reviewed/updated as required Review of Systems - Review of Systems All systems: negative Gastrointestinal: abdominal pain (lower abdomen), other (loose stool), no nausea, no vomiting, no hematochezia Exam - Constitutional Vital Signs: Temp Pulse Resp BP Pulse Ox 97.7 F 72 14 122/88 100 11/29/18 09:18 11/29/18 10:00 11/29/18 09:18 11/29/18 09:18 11/29/18 09:18 General appearance: no acute distress - Respiratory Respiratory effort: normal Respiratory: bilateral: diminished - Cardiovascular Rhythm: other (irregular) - Gastrointestinal General gastrointestinal: Present: soft, tender (slight TTP in lower abdomen), non-distended, normal bowel sounds - Musculoskeletal Musculoskeletal: other (left arm amputation) - Neurologic Neurological: alert and oriented x3 - Labs CBC & Chem 7: 11/27/18 Unknown 11/27/18 05:46 Lab Results: Laboratory Results - last 24 hr 11/28/18 11/28/18 11/28/18 11:42 17:58 20:59 POC Glucose 101 70 124 H 11/29/18 08:00 POC Glucose 98 Assessment and Plan 1.colitis -afebrile -WBC WNL -H/H stable-no active signs of bleeding -abd CT showed diffuse colonic wall thickening (lack of distention vs colitis; no obstruction) -previous colonoscopy negative per pt report (unknown timing or details of results-records no available) -etiology unclear- possibly infectious vs other -no plan for scope at this time -will order stool studies to r/o infection -continue empiric antibiotics (levaquin/flagyl) -continue supportive care -will follow <ALEN PRESTON R - Last Filed: 12/01/18 12:47> Medications and Allergies Active Meds: Active Medications Acetaminophen (Tylenol) 650 mg PO Q4H PRN PRN Reason: Pain MILD(1-3)/Fever >100.5/DOUGLAS Last Admin: 11/24/18 21:21 Dose: 650 mg Documented by: Albuterol (Proventil) 2.5 mg IH Q4HRT PRN PRN Reason: Shortness Of Breath Amlodipine Besylate (Norvasc) 10 mg PO DAILY [facility] Last Admin: 12/01/18 10:35 Dose: 10 mg Documented by: Apixaban (Eliquis) 2.5 mg PO Q12HR [facility]; Protocol Last Admin: 12/01/18 10:35 Dose: 2.5 mg Documented by: Arformoterol Tartrate (Brovana Nebu) 15 mcg IH Q12HRT [facility] Last Admin: 12/01/18 07:27 Dose: 15 mcg Documented by: Atorvastatin Calcium (Lipitor) 40 mg PO QHS [facility] Last Admin: 11/30/18 22:41 Dose: 40 mg Documented by: Budesonide (Pulmicort) 0.5 mg IH Q12HRT [facility] Last Admin: 12/01/18 07:27 Dose: 0.5 mg Documented by: Dextrose (D50w (25gm) Syringe) 50 ml IV PRN PRN PRN Reason: Hypoglycemia Epoetin Prashant (Procrit) 10,000 unit SUB-Q KATERYNA PRN PRN Reason: hemodialysis Last Admin: 11/27/18 10:56 Dose: 10,000 unit Documented by: Famotidine (Pepcid) 10 mg PO BID [facility] Last Admin: 12/01/18 10:35 Dose: 10 mg Documented by: Fluoxetine HCl (Prozac) 40 mg PO QDAY [facility] Last Admin: 12/01/18 10:38 Dose: Not Given Documented by: Hydralazine HCl (Apresoline) 20 mg IV Q4HR PRN PRN Reason: SBP>160 or DBP>110 Metronidazole (Flagyl 500 Mg/100 Ml) 500 mg in 100 mls @ 100 mls/hr IV Q8H [facility]; Protocol Last Admin: 12/01/18 05:28 Dose: 100 mls/hr Documented by: Sodium Chloride (Nacl 0.9%) 100 mls @ 999 mls/hr IV KATERYNA PRN PRN Reason: Hypotension Levofloxacin/Dextrose (Levaquin 500mg/100ml) 500 mg in 100 mls @ 100 mls/hr IV Q48H [facility]; Protocol Last Admin: 11/29/18 17:41 Dose: 100 mls/hr Documented by: Insulin Human Regular (Humulin R) 0 units SUB-Q ACHS [facility]; Protocol Last Admin: 12/01/18 08:00 Dose: Not Given Documented by: Isosorbide Mononitrate (Imdur) 30 mg PO DAILY [facility] Last Admin: 12/01/18 10:35 Dose: 30 mg Documented by: Metoprolol Tartrate (Lopressor) 25 mg PO Q6HR [facility] Last Admin: 12/01/18 05:27 Dose: 25 mg Documented by: Morphine Sulfate (Morphine) 2 mg IV Q4H PRN PRN Reason: Pain, Moderate (4-6) Last Admin: 12/01/18 06:36 Dose: 2 mg Documented by: Ondansetron HCl (Zofran) 4 mg IV Q8H PRN PRN Reason: Nausea And Vomiting Polyethylene Glycol (Miralax 3350) 17 gm PO QDAY PRN PRN Reason: Constipation Senna/Docusate Sodium (Senokot S) 1 tab PO BID [facility] Last Admin: 12/01/18 10:36 Dose: Not Given Documented by: Sodium Chloride (Sodium Chloride Flush Syringe 10 Ml) 10 ml IV BID [facility] Last Admin: 12/01/18 10:36 Dose: 10 ml Documented by: Sodium Chloride (Sodium Chloride Flush Syringe 10 Ml) 10 ml IV PRN PRN PRN Reason: LINE FLUSH Last Admin: 11/26/18 06:32 Dose: 10 ml Documented by: Exam - Constitutional Vital Signs: Temp Pulse Resp BP Pulse Ox 97.6 F 62 20 140/82 100 12/01/18 08:54 12/01/18 10:35 12/01/18 10:00 12/01/18 10:35 12/01/18 08:54 - Labs CBC & Chem 7: 11/27/18 Unknown 11/27/18 05:46 Lab Results: Laboratory Results - last 24 hr 11/30/18 11/30/18 11/30/18 12:28 16:36 20:53 POC Glucose 87 144 H 119 H 12/01/18 12/01/18 07:42 11:26 POC Glucose 97 89 Assessment and Plan Pt seen. CT reviewed. Plan as noted.
--- NOTE | 2018-11-29 11:57 | Progress Note ---
Assessment and Plan Assessment and plan: Colitis. CT scan of the abdomen and pelvis reveals diffuse colonic wall thickening (lack of distention vs colitis; no obstruction). Empiric antibiotics and follow-up stool studies. Sepsis. Present on admission. Etiology likely secondary to above +/- pneumonia. Left pleural effusion. No radiographic window available for thoracentesis. There is less than 100 mL of pleural fluid noted. Pleural effusion likely resolved with hemodialysis. Chronic systolic heart failure/nonischemic cardiomyopathy Continue medical therapy for nonischemic cardiomyopathy and chronic systolic heart failure. Continue hemodialysis for fluid management. Chronic and constant atypical chest pain DM type II. Continue Accu-Cheks and sliding scale insulin. PVD s/p left arm amputation Hypertension. Continue antihypertensive medications. Hydralazine when necessary. Hyperlipidemia. Continue Lipitor. ESRD on hemodialysis Thrombocytopenia, chronic Hx of Nonischemic CMP, EF 40% Non-obstructive CAD. LHC 01/2017 revealed non-obstructive, single vessel disease of the proximal LAD recommended for medical therapy. Normal perfusion MPI at [facility] 10/03/18. Permanent Atrial fibrillation. Rate controlled with metoprolol 25 mg by mouth every 6 hours. Resume eliquis since thoracentesis could not be completed. History Interval history: Patient is 71-year-old man with a history of end-stage renal disease on dialysis, hypertension, CHF, A. fib, coronary artery disease, PTSD presented to emergency room with complaints of shortness of breath, wheezing, chest pain. He was found to be in A. fib with RVR in the field, started on a Cardizem drip in the emergency room, admitted. He was later weaned off Cardizem drip, placed on oral Lopressor. For chest pain was evaluated by cardiology, chest pain determined to be non cardiac. He has large left pleural effusion. I discussed with Pulmonology and US guided thoracentesis left recommended. This was ordered, but he was on Eliquis for afib and this was put on hold. The pt however went down for the exam and there was no radiographic window large enough for thoracentesis. Only approximately 100 mL of fluid collection was estimated. Confusion likely resolved with hemodialysis. Patient now complains of primarily left upper quadrant and left lower quadrant abdominal pain. No new issues overnight. Hospitalist Physical - Constitutional Vitals: Temp Pulse Resp BP Pulse Ox 97.7 F 72 14 122/88 100 11/29/18 09:18 11/29/18 10:00 11/29/18 09:18 11/29/18 09:18 11/29/18 09:18 General appearance: Present: no acute distress - EENT Eyes: Present: PERRL, EOM intact ENT: hearing intact, clear oral mucosa, dentition normal - Neck Neck: Present: supple, normal ROM - Respiratory Respiratory effort: normal Respiratory: bilateral: CTA - Cardiovascular Rhythm: regular Heart Sounds: Present: S1 & S2. Absent: gallop, rub - Extremities Extremities: no ischemia, No edema, Full ROM - Abdominal General gastrointestinal: soft, non-tender, non-distended, normal bowel sounds - Integumentary Integumentary: Present: clear, warm, dry - Neurologic Neurologic: CNII-XII intact, moves all extremities Results - Labs CBC & Chem 7: 11/27/18 Unknown 11/27/18 05:46 Labs: Laboratory Last Values WBC 4.6 K/mm3 (4.5-11.0) 11/27/18 Unknown RBC 3.90 M/mm3 (3.65-5.03) 11/27/18 Unknown Hgb 12.8 gm/dl (11.8-15.2) 11/27/18 Unknown Hct 38.7 % (35.5-45.6) D 11/27/18 Unknown MCV 99 fl (84-94) H 11/27/18 Unknown MCH 33 pg (28-32) H 11/27/18 Unknown MCHC 33 % (32-34) 11/27/18 Unknown RDW 15.7 % (13.2-15.2) H 11/27/18 Unknown Plt Count 177 K/mm3 (140-440) 11/27/18 Unknown Lymph % (Auto) 24.4 % (13.4-35.0) 11/26/18 04:54 [place] % (Auto) 9.7 % (0.0-7.3) H 11/26/18 04:54 Eos % (Auto) 2.9 % (0.0-4.3) 11/26/18 04:54 Baso % (Auto) 0.5 % (0.0-1.8) 11/26/18 04:54 Lymph # 0.9 K/mm3 (1.2-5.4) L 11/26/18 04:54 [place] # 0.4 K/mm3 (0.0-0.8) 11/26/18 04:54 Eos # 0.1 K/mm3 (0.0-0.4) 11/26/18 04:54 Baso # 0.0 K/mm3 (0.0-0.1) 11/26/18 04:54 Seg Neutrophils % 62.5 % (40.0-70.0) 11/26/18 04:54 Seg Neutrophils # 2.4 K/mm3 (1.8-7.7) 11/26/18 04:54 PT 19.0 Sec. (12.2-14.9) H 11/20/18 00:17 INR 1.49 (0.87-1.13) H 11/20/18 00:17 APTT 36.1 Sec. (24.2-36.6) 11/20/18 00:17 Sodium 132 mmol/L (137-145) L D 11/27/18 05:46 Potassium 5.2 mmol/L (3.6-5.0) H 11/27/18 05:46 Chloride 93.3 mmol/L (98-107) L 11/27/18 05:46 Carbon Dioxide 24 mmol/L (22-30) 11/27/18 05:46 20 mmol/L 11/27/18 05:46 BUN 37 mg/dL (9-20) H 11/27/18 05:46 5.0 mg/dL (0.8-1.5) H 11/27/18 05:46 Estimated GFR 14 ml/min 11/27/18 05:46 7 % 11/27/18 05:46 Glucose 134 mg/dL (75-100) H 11/27/18 05:46 POC Glucose 98 (70-105) 11/29/18 08:00 Calcium 8.8 mg/dL (8.4-10.2) 11/27/18 05:46 Phosphorus 5.00 mg/dL (2.5-4.5) H 11/26/18 04:54 0.30 mg/dL (0.1-1.2) 11/26/18 04:54 AST 89 units/L (5-40) H 11/26/18 04:54 ALT 75 units/L (7-56) H 11/26/18 04:54 186 units/L (35-129) H 11/26/18 04:54 108 units/L (55-170) 11/20/18 09:29 CK-MB (CK-2) 4.6 ng/mL (0.0-4.0) H 11/20/18 09:29 CK-MB (CK-2) Rel Index 4.2 (0-4) H 11/20/18 09:29 0.219 ng/mL (0.00-0.029) H* 11/20/18 09:29 NT-Pro-B Natriuret Pep > 45133 pg/mL (0-900) H 11/20/18 00:17 6.8 g/dL (6.3-8.2) 11/26/18 04:54 3.0 g/dL (3.9-5) L 11/26/18 04:54 0.8 % 11/26/18 04:54 Triglycerides 83 mg/dL (2-149) 11/20/18 00:17 Cholesterol 94 mg/dL (50-199) 11/20/18 00:17 32 mg/dL (50-130) L 11/20/18 00:17 50 mg/dL (40-59) 11/20/18 00:17 1.88 % 11/20/18 00:17 Hepatitis A IgM Ab Non-reactive (NonReactive) 11/21/18 13:18 Hep Bs Antigen Non-reactive (Negative) 11/21/18 13:18 Hep B Core IgM Ab Non-reactive (NonReactive) 11/21/18 13:18 Reactive (NonReactive) A 11/21/18 13:18 Active Medications - Current Medications Current Medications: Generic Name Dose Route Start Last Admin Trade Name Freq PRN Reason Stop Dose Admin Acetaminophen 650 mg 11/20/18 02:09 11/24/18 21:21 Tylenol PO 650 mg Q4H PRN Administration Pain MILD(1-3)/Fever >100.5/DOUGLAS Albuterol 2.5 mg 11/20/18 22:12 Proventil IH Q4HRT PRN Shortness Of Breath Amlodipine Besylate 10 mg 11/20/18 15:00 11/29/18 09:22 Norvasc PO 10 mg DAILY [facility] Administration Apixaban 2.5 mg 11/28/18 22:00 11/29/18 09:21 Eliquis PO 2.5 mg Q12HR [facility] Administration Protocol Arformoterol Tartrate 15 mcg 11/20/18 09:45 11/29/18 07:33 Ila Matau IH 15 mcg Q12HRT [facility] Administration Atorvastatin Calcium 40 mg 11/20/18 22:00 11/28/18 22:05 Lipitor PO 40 mg QHS [facility] Administration Budesonide 0.5 mg 11/20/18 09:45 11/29/18 07:33 Pulmicort IH 0.5 mg Q12HRT [facility] Administration Dextrose 50 ml 11/27/18 16:45 D50w (25gm) Syringe IV PRN PRN Hypoglycemia Epoetin Prashant 10,000 unit 11/22/18 09:20 11/27/18 10:56 Procrit SUB-Q 10,000 unit KATERYNA PRN Administration hemodialysis Famotidine 10 mg 11/20/18 10:00 11/29/18 09:22 Pepcid PO 10 mg BID [facility] Administration Fluoxetine HCl 40 mg 11/20/18 10:00 11/29/18 09:21 Prozac PO Not Given QDAY [facility] Hydralazine HCl 20 mg 11/20/18 18:27 Apresoline IV Q4HR PRN SBP>160 or DBP>110 Sodium Chloride 100 mls @ 999 mls/hr 11/26/18 07:31 Nacl 0.9% IV KATERYNA PRN Hypotension Metronidazole 500 mg in 100 mls @ 100 mls/hr 11/29/18 14:00 Flagyl 500 Mg/100 Ml IV Q8H [facility] Protocol Levofloxacin/Dextrose 500 mg in 100 mls @ 100 mls/hr 11/29/18 10:00 Levaquin 500mg/100ml IV Q24HR [facility] Protocol Sodium Chloride 100 mls @ 999 mls/hr 11/29/18 10:36 Nacl 0.9% IV KATERYNA PRN Hypotension Insulin Human Regular 0 units 11/27/18 22:00 11/29/18 09:22 Humulin R SUB-Q Not Given ACHS [facility] Protocol Isosorbide Mononitrate 30 mg 11/20/18 15:00 11/29/18 09:21 Imdur PO 30 mg DAILY [facility] Administration Metoprolol Tartrate 25 mg 11/20/18 11:00 11/29/18 06:07 Lopressor PO 25 mg Q6HR [facility] Administration Morphine Sulfate 2 mg 11/20/18 15:44 11/29/18 09:22 Morphine IV 2 mg Q4H PRN Administration Pain, Moderate (4-6) Ondansetron HCl 4 mg 11/20/18 02:09 Zofran IV Q8H PRN Nausea And Vomiting Polyethylene Glycol 17 gm 11/20/18 06:34 Miralax 3350 PO QDAY PRN Constipation Senna/Docusate Sodium 1 tab 11/20/18 10:00 11/29/18 09:22 Senokot S PO 1 tab BID [facility] Administration Sodium Chloride 10 ml 11/20/18 10:00 11/29/18 09:23 Sodium Chloride Flush Syringe 10 Ml IV 10 ml BID [facility] Administration Sodium Chloride 10 ml 11/20/18 02:09 11/26/18 06:32 Sodium Chloride Flush Syringe 10 Ml IV 10 ml PRN PRN Administration LINE FLUSH Nutrition/Malnutrition Assess - Dietary Evaluation Nutrition/Malnutrition Findings: Nutrition Notes Start: 11/21/18 15:23 Freq: Status: Active Protocol: Document 11/28/18 15:07 [facility] (Rec: 11/28/18 15:14 [facility] SRW- [id number]) Nutrition Notes Initial or Follow up Brief Note Current Diagnosis CKD (stage V CKD),Diabetes, Hypertension,Heart Failure, Hyperlipidemia Other Pertinent Diagnosis (L) pleural effusion Height 5 ft 9 in Weight 49.5 kg [place] Body Weight (kg) 72.72 BMI 16.1 Subjective/Other Information Pt reports eating ~50% of meals because he rarely receives foods he wants. He verbalizes food preferences that are not usually given for renal diets. He wants diet liberalization if possible. He knows which foods are high in K and Phos. He drinks Ensure Clear ONS. Percent of energy/protein needs met: 100% energy 93% pro (includes ONS) Is patient on ventilator? No Is Patient Ambulatory and/or Out of Bed No REE-([facility]-confined to bed) 1500.576 Kcal/Kg value to use for calculation 37 Approximate Energy Requirements Using 1832 kcal/Kg Calculation Used for Recommendations Kcal/kg Additional Notes Pro needs 1.2-1.4g/k-69g/ day Fluid needs 1-1.5L/day Nutrition Intervention Goal #1 Continue to meet at least 75% of calorie and protein needs via PO and ONS intakes Follow-Up By: 12/05/18 Additional Comments F/U: intakes, wt
[2018-11-29] MEDS: FLAGYL 500 MG/100 ML 500 MG/100 ML BAG IV SCH ×2 (13:59→23:05)
[2018-11-30] MEDS: MORPHINE IV PRN ×6 (00:09→22:42)
[2018-11-30] MEDS: FLAGYL 500 MG/100 ML 500 MG/100 ML BAG IV SCH ×3 (05:07→22:41)
[2018-11-30] MEDS: LOPRESSOR PO SCH ×4 (05:07→22:41)
[2018-11-30] MEDS: BROVANA NEBU IH SCH ×2 (07:38→20:49)
[2018-11-30] MEDS: PULMICORT IH SCH ×2 (07:38→20:48)
--- NOTE | 2018-11-30 08:13 | Progress Note ---
Assessment and Plan 1. ESRD: Continue hemodialysis three times a week, TTS schedule. 2. FEN: Hyperkalemia, s/p HD. Suspected volume overload, UF with HD as tolerated. Monitor lytes. 3. A.fib with RVR: Rate controlled. 4. DM type 2. 5. Chronic pleural effusion: Unable to do Thoracentesis due to very little pleural fluid left. Pleural effusion has improved with UF during HD. 6. Anemia: Epogen with HD. 7. PAD. Subjective Date of service: 11/30/18 Interval history: Patient was seen an examined at the bedside. Doing ok. Objective - Vital Signs Vital signs: Vital Signs - 12hr 11/29/18 11/29/18 11/30/18 22:00 23:03 04:05 Temperature 98.3 F 98.2 F Pulse Rate 72 67 66 Respiratory 20 18 18 Rate Blood Pressure 120/89 123/88 O2 Sat by Pulse 99 100 Oximetry - General Appearance General appearance: well-developed, appears stated age, other (no distress, R IJ tunnel catheter) EENT: ATNC, PERRL, hearing intact, vision intact Neck: supple Respiratory: Present: Clear to Ascultation Cardiology: irregularly irregular, S1S2, no murmurs Gastrointestinal: normoactive bowel sounds, no tenderness, no distended Integumentary: no rash, warm and dry Neurologic: no focal deficit, no asterixis, alert and oriented x3 Musculoskeletal: other (no edema) - Lab 11/27/18 Unknown 11/27/18 05:46 Most recent lab results Calcium 8.8 mg/dL (8.4-10.2) 11/27/18 05:46 Phosphorus 5.00 mg/dL (2.5-4.5) H 11/26/18 04:54 Medications & Allergies - Medications Allergies/Adverse Reactions: Allergies aspirin Allergy (Verified 03/16/17 01:25) Unknown stomach cramps pork derived (porcine) Allergy (Verified 03/16/17 01:27) Rash venom-honey bee [bee venom (honey bee)] Allergy (Verified 03/16/17 01:27) Anaphylaxis Pork/Porcine Containing Products Adverse Reaction (Severe, Verified 02/13/17 09:31) Nausea,VOMITING Home Medications: Home Medications Medication Instructions Recorded Confirmed Last Taken Type Acetaminophen [Acetaminophen TAB] 650 mg PO Q4H PRN tablet 05/05/18 11/20/18 09/21/18 Rx Apixaban [Eliquis] 2.5 mg PO Q12HR #60 tablet 09/05/18 11/20/18 09/21/18 Rx FLUoxetine HCL [Fluoxetine HCl] 40 mg PO QDAY #30 capsule 09/05/18 11/20/18 09/21/18 Rx Famotidine [Pepcid] 10 mg PO BID #15 tablet 09/05/18 11/20/18 09/21/18 Rx Fe Fumarate/FA/Mv, Min Comb#15 1 each PO QDAY #30 capsule 09/05/18 11/20/18 09/21/18 Rx [Hemocyte Plus] ISOSORBIDE MONOnitrate [Imdur ER] 30 mg PO QDAY #30 tablet 09/05/18 11/20/18 09/21/18 Rx Losartan [Cozaar] 100 mg PO QDAY 30 Days tablet 09/05/18 11/20/18 09/21/18 Rx amLODIPine [Norvasc] 10 mg PO DAILY #30 tablet 09/05/18 11/20/18 09/21/18 Rx hydrALAZINE [Apresoline TAB] 50 mg PO BID 11/06/18 11/20/18 Unknown History Mag Hydrox/Aluminum Hyd/Simeth 355 ml PO DAILY PRN 15 Days 11/08/18 11/20/18 Unknown Rx [Maalox Advanced Suspension] oral.susp Apixaban [Eliquis] 2.5 mg PO Q12HR #60 tablet 12/01/18 Unknown Rx AtorvaSTATin [Lipitor] 40 mg PO QHS #30 tablet 12/01/18 Unknown Rx Epoetin Prashant 10,000 Unit [Procrit] 10,000 unit SUB-Q KATERYNA PRN #30 vial 12/01/18 Unknown Rx ISOSORBIDE MONOnitrate [Imdur ER] 30 mg PO DAILY #30 tablet 12/01/18 Unknown Rx Metoprolol Xl [Metoprolol 100 mg PO QDAY #30 tablet 12/01/18 Unknown Rx SUCCINATE ER TAB] Sennosides/Docusate [Senokot S] 1 tab PO BID #20 tablet 12/01/18 Unknown Rx amLODIPine [Norvasc] 10 mg PO DAILY #30 tablet 12/01/18 Unknown Rx levoFLOXacin [Levaquin TAB] 500 mg PO QDAY #7 tablet 12/01/18 Unknown Rx metroNIDAZOLE [Flagyl] 500 mg PO Q8HR #21 tablet 12/01/18 Unknown Rx Active Medications: Generic Name Dose Route Start Last Admin Trade Name Freq PRN Reason Stop Dose Admin Acetaminophen 650 mg 11/20/18 02:09 11/24/18 21:21 Tylenol PO 650 mg Q4H PRN Administration Pain MILD(1-3)/Fever >100.5/DOUGLAS Albuterol 2.5 mg 11/20/18 22:12 Proventil IH Q4HRT PRN Shortness Of Breath Amlodipine Besylate 10 mg 11/20/18 15:00 11/29/18 09:22 Norvasc PO 10 mg DAILY BEAN Administration Apixaban 2.5 mg 11/28/18 22:00 11/29/18 23:04 Eliquis PO 2.5 mg Q12HR BEAN Administration Protocol Arformoterol Tartrate 15 mcg 11/20/18 09:45 11/30/18 07:38 Brovana Nebu IH 15 mcg Q12HRT BEAN Administration Atorvastatin Calcium 40 mg 11/20/18 22:00 11/29/18 23:04 Lipitor PO 40 mg QHS BEAN Administration Budesonide 0.5 mg 11/20/18 09:45 11/30/18 07:38 Pulmicort IH 0.5 mg Q12HRT BEAN Administration Dextrose 50 ml 11/27/18 16:45 D50w (25gm) Syringe IV PRN PRN Hypoglycemia Epoetin Prashant 10,000 unit 11/22/18 09:20 11/27/18 10:56 Procrit SUB-Q 10,000 unit KATERYNA PRN Administration hemodialysis Famotidine 10 mg 11/20/18 10:00 11/29/18 23:04 Pepcid PO 10 mg BID BEAN Administration Fluoxetine HCl 40 mg 11/20/18 10:00 11/29/18 09:21 Prozac PO Not Given QDAY BEAN Hydralazine HCl 20 mg 11/20/18 18:27 Apresoline IV Q4HR PRN SBP>160 or DBP>110 Sodium Chloride 100 mls @ 999 mls/hr 11/26/18 07:31 Nacl 0.9% IV KATERYNA PRN Hypotension Metronidazole 500 mg in 100 mls @ 100 mls/hr 11/29/18 14:00 11/30/18 05:07 Flagyl 500 Mg/100 Ml IV 100 mls/hr Q8H BEAN Administration Protocol Sodium Chloride 100 mls @ 999 mls/hr 11/29/18 10:36 Nacl 0.9% IV KATERYNA PRN Hypotension Levofloxacin/Dextrose 500 mg in 100 mls @ 100 mls/hr 11/29/18 14:00 11/29/18 17:41 Levaquin 500mg/100ml IV 100 mls/hr Q48H BEAN Administration Protocol Insulin Human Regular 0 units 11/27/18 22:00 11/29/18 23:12 Humulin R SUB-Q Not Given ACHS [facility] Protocol Isosorbide Mononitrate 30 mg 11/20/18 15:00 11/29/18 09:21 Imdur PO 30 mg DAILY BEAN Administration Metoprolol Tartrate 25 mg 11/20/18 11:00 11/30/18 05:07 Lopressor PO 25 mg Q6HR BEAN Administration Morphine Sulfate 2 mg 11/20/18 15:44 11/30/18 04:07 Morphine IV 2 mg Q4H PRN Administration Pain, Moderate (4-6) Ondansetron HCl 4 mg 11/20/18 02:09 Zofran IV Q8H PRN Nausea And Vomiting Polyethylene Glycol 17 gm 11/20/18 06:34 Miralax 3350 PO QDAY PRN Constipation Senna/Docusate Sodium 1 tab 11/20/18 10:00 11/29/18 23:05 Senokot S PO Not Given BID BEAN Sodium Chloride 10 ml 11/20/18 10:00 11/29/18 23:05 Sodium Chloride Flush Syringe 10 Ml IV 10 ml BID BEAN Administration Sodium Chloride 10 ml 11/20/18 02:09 11/26/18 06:32 Sodium Chloride Flush Syringe 10 Ml IV 10 ml PRN PRN Administration LINE FLUSH
[2018-11-30] MEDS: HumuLIN R SUB-Q SCH ×4 (08:20→22:55)
[2018-11-30] MEDS: NORVASC PO SCH (09:03)
[2018-11-30] MEDS: PROzac PO SCH ×2 (09:03→09:06)
[2018-11-30] MEDS: IMDUR PO SCH (09:04)
[2018-11-30] MEDS: ELIQUIS PO SCH ×2 (09:04→22:41)
[2018-11-30] MEDS: SENOKOT S PO SCH ×2 (09:05→22:56)
[2018-11-30] MEDS: PEPCID PO SCH ×2 (09:23→22:41)
[2018-11-30] MEDS: SODIUM CHLORIDE FLUSH SYRINGE 10 ML IV SCH ×2 (09:23→22:56)
--- NOTE | 2018-11-30 11:55 | Progress Note ---
Assessment and Plan Assessment and plan: Colitis. CT scan of the abdomen and pelvis reveals diffuse colonic wall thickening (lack of distention vs colitis; no obstruction). Empiric antibiotics and follow-up stool studies. Sepsis. Present on admission. Etiology likely secondary to above +/- pneumonia. Left pleural effusion. No radiographic window available for thoracentesis. There is less than 100 mL of pleural fluid noted. Pleural effusion likely resolved with hemodialysis. Chronic systolic heart failure/nonischemic cardiomyopathy Continue medical therapy for nonischemic cardiomyopathy and chronic systolic heart failure. Continue hemodialysis for fluid management. Chronic and constant atypical chest pain DM type II. Continue Accu-Cheks and sliding scale insulin. PVD s/p left arm amputation Hypertension. Continue antihypertensive medications. Hydralazine when necessary. Hyperlipidemia. Continue Lipitor. ESRD on hemodialysis Thrombocytopenia, chronic Hx of Nonischemic CMP, EF 40% Non-obstructive CAD. LHC 01/2017 revealed non-obstructive, single vessel disease of the proximal LAD recommended for medical therapy. Normal perfusion MPI at [facility] 10/03/18. Permanent Atrial fibrillation. Rate controlled with metoprolol 25 mg by mouth every 6 hours. Resume eliquis since thoracentesis could not be completed. History Interval history: Patient is 71-year-old man with a history of end-stage renal disease on dialysis, hypertension, CHF, A. fib, coronary artery disease, PTSD presented to emergency room with complaints of shortness of breath, wheezing, chest pain. He was found to be in A. fib with RVR in the field, started on a Cardizem drip in the emergency room, admitted. He was later weaned off Cardizem drip, placed on oral Lopressor. For chest pain was evaluated by cardiology, chest pain determined to be non cardiac. He has large left pleural effusion. I discussed with Pulmonology and US guided thoracentesis left recommended. This was ordered, but he was on Eliquis for afib and this was put on hold. The pt however went down for the exam and there was no radiographic window large enough for thoracentesis. Only approximately 100 mL of fluid collection was estimated. Confusion likely resolved with hemodialysis. Patient revised his complaints and reported primarily left upper quadrant and left lower quadrant abdominal pain. CT scan of the abdomen revealed diffuse colonic wall thickening (lack of distention vs colitis; no obstruction). The patient was started on antibiotics of Levaquin and Flagyl. GI was consulted. Stool studies are pending. No new issues overnight. Hospitalist Physical - Constitutional Vitals: Temp Pulse Resp BP Pulse Ox 98.2 F 70 20 120/82 100 11/30/18 08:40 11/30/18 10:00 11/30/18 10:00 11/30/18 09:04 11/30/18 08:40 General appearance: Present: no acute distress - EENT Eyes: Present: PERRL, EOM intact ENT: hearing intact, clear oral mucosa, dentition normal - Neck Neck: Present: supple, normal ROM - Respiratory Respiratory effort: normal Respiratory: bilateral: CTA - Cardiovascular Rhythm: regular Heart Sounds: Present: S1 & S2. Absent: gallop, rub - Extremities Extremities: no ischemia, No edema, Full ROM - Abdominal General gastrointestinal: soft, non-tender, non-distended, normal bowel sounds - Integumentary Integumentary: Present: clear, warm, dry - Neurologic Neurologic: CNII-XII intact, moves all extremities Results - Labs CBC & Chem 7: 11/27/18 Unknown 11/27/18 05:46 Labs: Laboratory Last Values WBC 4.6 K/mm3 (4.5-11.0) 11/27/18 Unknown RBC 3.90 M/mm3 (3.65-5.03) 11/27/18 Unknown Hgb 12.8 gm/dl (11.8-15.2) 11/27/18 Unknown Hct 38.7 % (35.5-45.6) D 11/27/18 Unknown MCV 99 fl (84-94) H 11/27/18 Unknown MCH 33 pg (28-32) H 11/27/18 Unknown MCHC 33 % (32-34) 11/27/18 Unknown RDW 15.7 % (13.2-15.2) H 11/27/18 Unknown Plt Count 177 K/mm3 (140-440) 11/27/18 Unknown Lymph % (Auto) 24.4 % (13.4-35.0) 11/26/18 04:54 [place] % (Auto) 9.7 % (0.0-7.3) H 11/26/18 04:54 Eos % (Auto) 2.9 % (0.0-4.3) 11/26/18 04:54 Baso % (Auto) 0.5 % (0.0-1.8) 11/26/18 04:54 Lymph # 0.9 K/mm3 (1.2-5.4) L 11/26/18 04:54 Douglas # 0.4 K/mm3 (0.0-0.8) 11/26/18 04:54 Eos # 0.1 K/mm3 (0.0-0.4) 11/26/18 04:54 Baso # 0.0 K/mm3 (0.0-0.1) 11/26/18 04:54 Seg Neutrophils % 62.5 % (40.0-70.0) 11/26/18 04:54 Seg Neutrophils # 2.4 K/mm3 (1.8-7.7) 11/26/18 04:54 PT 19.0 Sec. (12.2-14.9) H 11/20/18 00:17 INR 1.49 (0.87-1.13) H 11/20/18 00:17 APTT 36.1 Sec. (24.2-36.6) 11/20/18 00:17 Sodium 132 mmol/L (137-145) L D 11/27/18 05:46 Potassium 5.2 mmol/L (3.6-5.0) H 11/27/18 05:46 Chloride 93.3 mmol/L (98-107) L 11/27/18 05:46 Carbon Dioxide 24 mmol/L (22-30) 11/27/18 05:46 20 mmol/L 11/27/18 05:46 BUN 37 mg/dL (9-20) H 11/27/18 05:46 5.0 mg/dL (0.8-1.5) H 11/27/18 05:46 Estimated GFR 14 ml/min 11/27/18 05:46 7 % 11/27/18 05:46 Glucose 134 mg/dL (75-100) H 11/27/18 05:46 POC Glucose 98 (70-105) 11/30/18 07:30 Calcium 8.8 mg/dL (8.4-10.2) 11/27/18 05:46 Phosphorus 5.00 mg/dL (2.5-4.5) H 11/26/18 04:54 0.30 mg/dL (0.1-1.2) 11/26/18 04:54 AST 89 units/L (5-40) H 11/26/18 04:54 ALT 75 units/L (7-56) H 11/26/18 04:54 186 units/L (35-129) H 11/26/18 04:54 108 units/L (55-170) 11/20/18 09:29 CK-MB (CK-2) 4.6 ng/mL (0.0-4.0) H 11/20/18 09:29 CK-MB (CK-2) Rel Index 4.2 (0-4) H 11/20/18 09:29 0.219 ng/mL (0.00-0.029) H* 11/20/18 09:29 NT-Pro-B Natriuret Pep > 63338 pg/mL (0-900) H 11/20/18 00:17 6.8 g/dL (6.3-8.2) 11/26/18 04:54 3.0 g/dL (3.9-5) L 11/26/18 04:54 0.8 % 11/26/18 04:54 Triglycerides 83 mg/dL (2-149) 11/20/18 00:17 Cholesterol 94 mg/dL (50-199) 11/20/18 00:17 32 mg/dL (50-130) L 11/20/18 00:17 50 mg/dL (40-59) 11/20/18 00:17 1.88 % 11/20/18 00:17 Hepatitis A IgM Ab Non-reactive (NonReactive) 11/21/18 13:18 Hep Bs Antigen Non-reactive (Negative) 11/21/18 13:18 Hep B Core IgM Ab Non-reactive (NonReactive) 11/21/18 13:18 Reactive (NonReactive) A 11/21/18 13:18 Active Medications - Current Medications Current Medications: Generic Name Dose Route Start Last Admin Trade Name Freq PRN Reason Stop Dose Admin Acetaminophen 650 mg 11/20/18 02:09 11/24/18 21:21 Tylenol PO 650 mg Q4H PRN Administration Pain MILD(1-3)/Fever >100.5/DOUGLAS Albuterol 2.5 mg 11/20/18 22:12 Proventil IH Q4HRT PRN Shortness Of Breath Amlodipine Besylate 10 mg 11/20/18 15:00 11/30/18 09:03 Norvasc PO 10 mg DAILY BEAN Administration Apixaban 2.5 mg 11/28/18 22:00 11/30/18 09:04 Eliquis PO 2.5 mg Q12HR BEAN Administration Protocol Arformoterol Tartrate 15 mcg 11/20/18 09:45 11/30/18 07:38 Brovana Nebu IH 15 mcg Q12HRT BEAN Administration Atorvastatin Calcium 40 mg 11/20/18 22:00 11/29/18 23:04 Lipitor PO 40 mg QHS BEAN Administration Budesonide 0.5 mg 11/20/18 09:45 11/30/18 07:38 Pulmicort IH 0.5 mg Q12HRT BEAN Administration Dextrose 50 ml 11/27/18 16:45 D50w (25gm) Syringe IV PRN PRN Hypoglycemia Epoetin Prashant 10,000 unit 11/22/18 09:20 11/27/18 10:56 Procrit SUB-Q 10,000 unit KATERYNA PRN Administration hemodialysis Famotidine 10 mg 11/20/18 10:00 11/30/18 09:23 Pepcid PO 10 mg BID BEAN Administration Fluoxetine HCl 40 mg 11/20/18 10:00 11/30/18 09:06 Prozac PO Not Given QDAY BEAN Hydralazine HCl 20 mg 11/20/18 18:27 Apresoline IV Q4HR PRN SBP>160 or DBP>110 Sodium Chloride 100 mls @ 999 mls/hr 11/26/18 07:31 Nacl 0.9% IV KATERYNA PRN Hypotension Metronidazole 500 mg in 100 mls @ 100 mls/hr 11/29/18 14:00 11/30/18 05:07 Flagyl 500 Mg/100 Ml IV 100 mls/hr Q8H BEAN Administration Protocol Sodium Chloride 100 mls @ 999 mls/hr 11/29/18 10:36 Nacl 0.9% IV KATERYNA PRN Hypotension Levofloxacin/Dextrose 500 mg in 100 mls @ 100 mls/hr 11/29/18 14:00 11/29/18 17:41 Levaquin 500mg/100ml IV 100 mls/hr Q48H BEAN Administration Protocol Insulin Human Regular 0 units 11/27/18 22:00 11/30/18 08:20 Humulin R SUB-Q Not Given [facility] Protocol Isosorbide Mononitrate 30 mg 11/20/18 15:00 11/30/18 09:04 Imdur PO 30 mg DAILY BEAN Administration Metoprolol Tartrate 25 mg 11/20/18 11:00 11/30/18 05:07 Lopressor PO 25 mg Q6HR BEAN Administration Morphine Sulfate 2 mg 11/20/18 15:44 11/30/18 08:43 Morphine IV 2 mg Q4H PRN Administration Pain, Moderate (4-6) Ondansetron HCl 4 mg 11/20/18 02:09 Zofran IV Q8H PRN Nausea And Vomiting Polyethylene Glycol 17 gm 11/20/18 06:34 Miralax 3350 PO QDAY PRN Constipation Senna/Docusate Sodium 1 tab 11/20/18 10:00 11/30/18 09:05 Senokot S PO Not Given BID BEAN Sodium Chloride 10 ml 11/20/18 10:00 11/30/18 09:23 Sodium Chloride Flush Syringe 10 Ml IV 10 ml BID BEAN Administration Sodium Chloride 10 ml 11/20/18 02:09 11/26/18 06:32 Sodium Chloride Flush Syringe 10 Ml IV 10 ml PRN PRN Administration LINE FLUSH Nutrition/Malnutrition Assess - Dietary Evaluation Nutrition/Malnutrition Findings: Nutrition Notes Start: 11/21/18 15:23 Freq: Status: Active Protocol: Document 11/28/18 15:07 MEGAN (Rec: 11/28/18 15:14 [facility] SRW- [id number]) Nutrition Notes Initial or Follow up Brief Note Current Diagnosis CKD (stage V CKD),Diabetes, Hypertension,Heart Failure, Hyperlipidemia Other Pertinent Diagnosis (L) pleural effusion Height 5 ft 9 in Weight 49.5 kg [place] Body Weight (kg) 72.72 BMI 16.1 Subjective/Other Information Pt reports eating ~50% of meals because he rarely receives foods he wants. He verbalizes food preferences that are not usually given for renal diets. He wants diet liberalization if possible. He knows which foods are high in K and Phos. He drinks Ensure Clear ONS. Percent of energy/protein needs met: 100% energy 93% pro (includes ONS) Is patient on ventilator? No Is Patient Ambulatory and/or Out of Bed No REE-([place]-St. Jeor-confined to bed) 1500.576 Kcal/Kg value to use for calculation 37 Approximate Energy Requirements Using 1832 kcal/Kg Calculation Used for Recommendations Kcal/kg Additional Notes Pro needs 1.2-1.4g/k-69g/ day Fluid needs 1-1.5L/day Nutrition Intervention Goal #1 Continue to meet at least 75% of calorie and protein needs via PO and ONS intakes Follow-Up By: 12/05/18 Additional Comments F/U: intakes, wt
--- NOTE | 2018-11-30 11:57 | Gastroenterology Progress Note ---
<CHRIS GRESHAM - Last Filed: 11/30/18 12:31> Assessment and Plan 1.colitis -afebrile -WBC WNL -H/H stable -abd CT showed diffuse colonic wall thickening (lack of distention vs colitis; no obstruction) -previous colonoscopy negative per pt report (unknown timing or details of results-records no available) -etiology unclear- possibly infectious vs other -clinically, patient is stable with continued mild lower abd discomfort w/o change. No N/V, diarrhea, or signs of bleeding. Tolerating diet. -no plan for scope at this time -stool studies if diarrhea develops to r/o infection -continue empiric antibiotics (levaquin/flagyl) -continue supportive care -patient okay to be d/c per GI standpoint on current antibiotics x total of 7 days with f/u in clinic in ~2-3 weeks -will sign off, please call if needed Subjective Date of service: 11/30/18 Principal diagnosis: colitis Interval history: Patient sitting up in bed this am eating breakfast w/o acute distress. Reports some continued mild lower abdominal discomfort with no change. No N/V. No diarrhea/BM overnight or this am or signs of bleeding. Tolerating diet. Objective - Constitutional Vitals: Temp Pulse Resp BP Pulse Ox 98.2 F 70 20 120/82 100 11/30/18 08:40 11/30/18 10:00 11/30/18 10:00 11/30/18 09:04 11/30/18 08:40 General appearance: no acute distress - Respiratory Respiratory effort: normal Respiratory: bilateral: diminished - Cardiovascular Rhythm: regular - Gastrointestinal General gastrointestinal: Present: soft, tender (slight TTP in lower abdomen), normal bowel sounds - Musculoskeletal Musculoskeletal: other (left arm amputation) - Neurologic Neurological: alert and oriented x3 - Labs CBC & Chem 7: 11/27/18 Unknown 11/27/18 05:46 Labs: Laboratory Results - last 24 hr 11/29/18 11/29/18 11/29/18 12:46 17:47 21:22 POC Glucose 79 109 H 75 11/30/18 07:30 POC Glucose 98 <ALEN PRESTON - Last Filed: 11/30/18 15:47> Assessment and Plan Pt stable. Plan as noted. Objective - Constitutional Vitals: Temp Pulse Resp BP Pulse Ox 98.2 F 62 20 120/80 100 11/30/18 08:40 11/30/18 14:09 11/30/18 14:04 11/30/18 14:09 11/30/18 08:40 - Labs CBC & Chem 7: 11/27/18 Unknown 11/27/18 05:46 Labs: Laboratory Results - last 24 hr 11/29/18 11/29/18 11/30/18 17:47 21:22 07:30 POC Glucose 109 H 75 98
[2018-12-01] MEDS: LOPRESSOR PO SCH ×2 (00:26→05:27)
[2018-12-01] MEDS: MORPHINE IV PRN ×2 (02:35→06:36)
[2018-12-01] MEDS: FLAGYL 500 MG/100 ML 500 MG/100 ML BAG IV SCH (05:28)
[2018-12-01] MEDS: PULMICORT IH SCH (07:27)
[2018-12-01] MEDS: BROVANA NEBU IH SCH (07:27)
[2018-12-01] MEDS: HumuLIN R SUB-Q SCH ×2 (08:00→11:30)
--- NOTE | 2018-12-01 09:04 | Discharge Summary ---
Providers - Providers Date of Admission: 11/20/18 02:09 Date of discharge: 12/01/18 Attending physician: GLADIS DONG 11/20/18 01:25 Consult to Physician [CONS] Urgent Comment: Dr. Rust spoke with Dr. Diamond @ 0124 Consulting Provider: LYRIC DIAMOND Physician Instructions: Reason For Exam: hyperkalemia 11/23/18 08:59 Consult to Dietitian/Nutrition [CONS] Routine Physician Instructions: Reason For Exam: Reason for Consult: Pt requests consult on meal choices. 11/24/18 06:39 Consult to Wound/ET Nurse [CONS] Stat Reason For Exam: wound eval 11/29/18 08:56 Consult to Physician [CONS] Routine Comment: Consulting Provider: CAROLEE HUTCHINS Physician Instructions: Reason For Exam: colitis Primary care physician: ARSLAN PIMENTEL Hospitalization Reason for admission: sob, cp Condition: Stable Hospital course: Patient is 71-year-old man with a history of end-stage renal disease on di alysis, hypertension, CHF, A. fib, coronary artery disease, PTSD presented to emergency room with complaints of shortness of breath, wheezing, chest pain. He was found to be in A. fib with RVR in the field, started on a Cardizem drip in the emergency room, admitted. He was later weaned off Cardizem drip, placed on oral Lopressor. For chest pain was evaluated by cardiology, chest pain determined to be non cardiac. He had large left pleural effusion. Pulmonology was consulted and US guided thoracentesis was recommended. This was ordered, but he was on Eliquis for afib and this was put on hold. The pt however went down for the exam and there was no radiographic window large enough for thoracentesis. Only approximately 100 mL of fluid collection was estimated. Pleural effusion likely resolved with hemodialysis. Patient had a new complaint of left upper quadrant and left lower quadrant abdominal pain. CT scan of the abdomen revealed diffuse colonic wall thickening (lack of distention vs colitis; no obstruction). The patient was started on antibiotics of Levaquin and Flagyl. GI was consulted and agreed with the antibiotic selection. Patient received a couple days of IV antibiotics and GI felt that patient could discharge on current antibiotics x total of 7 days with f/u in clinic in ~2-3 weeks. Case management was consulted with regards to discharge planning and arrange for home health occupational therapy. Patient is felt to have received maximal hospital benefit and will be discharged home. Dedicated discharge time 35 minutes. Disposition: DC-01 TO HOME OR SELFCARE Time spent for discharge: 35 - Discharge Diagnoses (1) Colitis Status: Acute (2) Acute chest pain Status: Acute (3) Acute on chronic systolic heart failure Status: Acute (4) Anticoagulant long-term use Status: Acute (5) Atrial fibrillation with rapid ventricular response Status: Acute (6) HTN (hypertension) Status: Acute (7) Pleural effusion Status: Acute (8) ESRD needing dialysis Status: Chronic Core Measure Documentation - Palliative Care Palliative Care/ Comfort Measures: Not Applicable - Core Measures Any of the following diagnoses?: none Exam - Constitutional Vitals: Temp Pulse Resp BP Pulse Ox 97.7 F 63 17 139/90 100 12/01/18 04:02 12/01/18 04:02 12/01/18 04:02 12/01/18 04:02 12/01/18 04:02 General appearance: Present: no acute distress, well-nourished - EENT Eyes: Present: PERRL ENT: hearing intact, clear oral mucosa - Neck Neck: Present: supple, normal ROM - Respiratory Respiratory effort: normal Respiratory: bilateral: CTA - Cardiovascular Heart Sounds: Present: S1 & S2. Absent: rub, click - Extremities Extremities: pulses symmetrical, No edema Peripheral Pulses: within normal limits - Abdominal General gastrointestinal: Present: soft, non-tender, non-distended, normal bowel sounds Male genitourinary: Present: normal - Integumentary Integumentary: Present: clear, warm, dry - Musculoskeletal Musculoskeletal: gait normal, strength equal bilaterally - Psychiatric Psychiatric: appropriate mood/affect, intact judgment & insight - Neurologic Neurologic: CNII-XII intact, moves all extremities Plan Activity: advance as tolerated Weight Bearing Status: Weight Bear as Tolerated Diet: renal Special Instructions: restrict fluid intake to (1 L) Follow up with: ARSLAN PIMENTEL MD [Primary Care Provider] - 7 Days CAROLEE HUTCHINS MD [Staff Physician] - 7 Days LYRIC DIAMOND MD [Staff Physician] - 7 Days COLLEEN SAGE MD [Staff Physician] - 7 Days Prescriptions: Apixaban [Eliquis] 2.5 mg PO Q12HR #60 tablet metroNIDAZOLE [Flagyl] 500 mg PO Q8HR #21 tablet ISOSORBIDE MONOnitrate [Imdur ER] 30 mg PO DAILY #30 tablet levoFLOXacin [Levaquin TAB] 500 mg PO QDAY #7 tablet AtorvaSTATin [Lipitor] 40 mg PO QHS #30 tablet Metoprolol Xl [Metoprolol SUCCINATE ER TAB] 100 mg PO QDAY #30 tablet amLODIPine [Norvasc] 10 mg PO DAILY #30 tablet Epoetin Prashant 10,000 Unit [Procrit] 10,000 unit SUB-Q KATERYNA PRN #30 vial PRN Reason: Hemodialysis Sennosides/Docusate [Senokot S] 1 tab PO BID #20 tablet Other Discharge Orders: Occupational Therapy (Amb) Location: None Selected
[2018-12-01] MEDS: PROzac PO SCH ×2 (10:35→10:38)
[2018-12-01] MEDS: NORVASC PO SCH (10:35)
[2018-12-01] MEDS: IMDUR PO SCH (10:35)
[2018-12-01] MEDS: PEPCID PO SCH (10:35)
[2018-12-01] MEDS: ELIQUIS PO SCH (10:35)
[2018-12-01] MEDS: SODIUM CHLORIDE FLUSH SYRINGE 10 ML IV SCH (10:36)
[2018-12-01] MEDS: SENOKOT S PO SCH (10:36)
[2018-12-01 10:37] VITALS: BP 140/82
--- NOTE | 2018-12-01 10:46 | Progress Note ---
Assessment and Plan 1. ESRD: Continue hemodialysis three times a week, TTS schedule. 2. FEN: Hyperkalemia, s/p HD. Suspected volume overload, improved. Monitor lytes. 3. A.fib with RVR: Rate controlled. 4. DM type 2. 5. Chronic pleural effusion: Pleural effusion has improved with UF during HD. 6. Anemia: Epogen with HD. 7. PAD. Subjective Date of service: 12/01/18 Principal diagnosis: colitis Interval history: Patient was seen an examined at the bedside. Doing ok. Objective - Vital Signs Vital signs: Vital Signs - 12hr 11/30/18 12/01/18 12/01/18 23:03 04:02 07:06 Temperature 98.4 F 97.7 F Pulse Rate 68 63 Pulse Rate [ Bilateral Throughout] Respiratory 17 17 20 Rate Respiratory Rate [Bilateral Throughout] Blood Pressure 108/79 139/90 O2 Sat by Pulse 100 100 Oximetry 12/01/18 12/01/18 12/01/18 07:27 07:37 08:54 Temperature 97.6 F Pulse Rate 63 Pulse Rate [ 59 L 62 Bilateral Throughout] Respiratory 16 Rate Respiratory 18 18 Rate [Bilateral Throughout] Blood Pressure 140/92 O2 Sat by Pulse 100 Oximetry 12/01/18 10:35 Temperature Pulse Rate 62 Pulse Rate [ Bilateral Throughout] Respiratory Rate Respiratory Rate [Bilateral Throughout] Blood Pressure 140/82 O2 Sat by Pulse Oximetry - General Appearance General appearance: well-developed, appears stated age, other (no distress, R IJ tunnel catheter) EENT: ATNC, PERRL, hearing intact, vision intact Neck: supple Respiratory: Present: Clear to Ascultation Cardiology: irregularly irregular, S1S2, no murmurs Gastrointestinal: normoactive bowel sounds, no tenderness, no distended Integumentary: no rash, warm and dry Neurologic: no focal deficit, no asterixis, alert and oriented x3 Musculoskeletal: other (no edema, L below elbow amputation) - Lab 11/27/18 Unknown 11/27/18 05:46 Most recent lab results Calcium 8.8 mg/dL (8.4-10.2) 11/27/18 05:46 Phosphorus 5.00 mg/dL (2.5-4.5) H 11/26/18 04:54 Medications & Allergies - Medications Allergies/Adverse Reactions: Allergies aspirin Allergy (Verified 03/16/17 01:25) Unknown stomach cramps pork derived (porcine) Allergy (Verified 03/16/17 01:27) Rash venom-honey bee [bee venom (honey bee)] Allergy (Verified 03/16/17 01:27) Anaphylaxis Pork/Porcine Containing Products Adverse Reaction (Severe, Verified 02/13/17 09:31) Nausea,VOMITING Home Medications: Home Medications Medication Instructions Recorded Confirmed Last Taken Type Acetaminophen [Acetaminophen TAB] 650 mg PO Q4H PRN tablet 05/05/18 11/20/18 09/21/18 Rx Apixaban [Eliquis] 2.5 mg PO Q12HR #60 tablet 09/05/18 11/20/18 09/21/18 Rx FLUoxetine HCL [Fluoxetine HCl] 40 mg PO QDAY #30 capsule 09/05/18 11/20/18 09/21/18 Rx Famotidine [Pepcid] 10 mg PO BID #15 tablet 09/05/18 11/20/18 09/21/18 Rx Fe Fumarate/FA/Mv, Min Comb#15 1 each PO QDAY #30 capsule 09/05/18 11/20/18 09/21/18 Rx [Hemocyte Plus] ISOSORBIDE MONOnitrate [Imdur ER] 30 mg PO QDAY #30 tablet 09/05/18 11/20/18 09/21/18 Rx Losartan [Cozaar] 100 mg PO QDAY 30 Days tablet 09/05/18 11/20/18 09/21/18 Rx amLODIPine [Norvasc] 10 mg PO DAILY #30 tablet 09/05/18 11/20/18 09/21/18 Rx hydrALAZINE [Apresoline TAB] 50 mg PO BID 11/06/18 11/20/18 Unknown History Mag Hydrox/Aluminum Hyd/Simeth 355 ml PO DAILY PRN 15 Days 11/08/18 11/20/18 Unknown Rx [Maalox Advanced Suspension] oral.susp Apixaban [Eliquis] 2.5 mg PO Q12HR #60 tablet 12/01/18 Unknown Rx AtorvaSTATin [Lipitor] 40 mg PO QHS #30 tablet 12/01/18 Unknown Rx Epoetin Prashant 10,000 Unit [Procrit] 10,000 unit SUB-Q KATERYNA PRN #30 vial 12/01/18 Unknown Rx ISOSORBIDE MONOnitrate [Imdur ER] 30 mg PO DAILY #30 tablet 12/01/18 Unknown Rx Metoprolol Xl [Metoprolol 100 mg PO QDAY #30 tablet 12/01/18 Unknown Rx SUCCINATE ER TAB] Sennosides/Docusate [Senokot S] 1 tab PO BID #20 tablet 12/01/18 Unknown Rx amLODIPine [Norvasc] 10 mg PO DAILY #30 tablet 12/01/18 Unknown Rx levoFLOXacin [Levaquin TAB] 500 mg PO QDAY #7 tablet 12/01/18 Unknown Rx metroNIDAZOLE [Flagyl] 500 mg PO Q8HR #21 tablet 12/01/18 Unknown Rx Active Medications: Generic Name Dose Route Start Last Admin Trade Name Freq PRN Reason Stop Dose Admin Acetaminophen 650 mg 11/20/18 02:09 11/24/18 21:21 Tylenol PO 650 mg Q4H PRN Administration Pain MILD(1-3)/Fever >100.5/DOUGLAS Albuterol 2.5 mg 11/20/18 22:12 Proventil IH Q4HRT PRN Shortness Of Breath Amlodipine Besylate 10 mg 11/20/18 15:00 12/01/18 10:35 Norvasc PO 10 mg DAILY BEAN Administration Apixaban 2.5 mg 11/28/18 22:00 12/01/18 10:35 Eliquis PO 2.5 mg Q12HR BEAN Administration Protocol Arformoterol Tartrate 15 mcg 11/20/18 09:45 12/01/18 07:27 Brovana Nebu IH 15 mcg Q12HRT BEAN Administration Atorvastatin Calcium 40 mg 11/20/18 22:00 11/30/18 22:41 Lipitor PO 40 mg QHS BEAN Administration Budesonide 0.5 mg 11/20/18 09:45 12/01/18 07:27 Pulmicort IH 0.5 mg Q12HRT BEAN Administration Dextrose 50 ml 11/27/18 16:45 D50w (25gm) Syringe IV PRN PRN Hypoglycemia Epoetin Prashant 10,000 unit 11/22/18 09:20 11/27/18 10:56 Procrit SUB-Q 10,000 unit KATERYNA PRN Administration hemodialysis Famotidine 10 mg 11/20/18 10:00 12/01/18 10:35 Pepcid PO 10 mg BID BEAN Administration Fluoxetine HCl 40 mg 11/20/18 10:00 12/01/18 10:38 Prozac PO Not Given QDAY BEAN Hydralazine HCl 20 mg 11/20/18 18:27 Apresoline IV Q4HR PRN SBP>160 or DBP>110 Metronidazole 500 mg in 100 mls @ 100 mls/hr 11/29/18 14:00 12/01/18 05:28 Flagyl 500 Mg/100 Ml IV 100 mls/hr Q8H [facility] Administration Protocol Sodium Chloride 100 mls @ 999 mls/hr 11/29/18 10:36 Nacl 0.9% IV KATERYNA PRN Hypotension Levofloxacin/Dextrose 500 mg in 100 mls @ 100 mls/hr 11/29/18 14:00 11/29/18 17:41 Levaquin 500mg/100ml IV 100 mls/hr Q48H BEAN Administration Protocol Insulin Human Regular 0 units 11/27/18 22:00 12/01/18 08:00 Humulin R SUB-Q Not Given ACHS [facility] Protocol Isosorbide Mononitrate 30 mg 11/20/18 15:00 12/01/18 10:35 Imdur PO 30 mg DAILY BEAN Administration Metoprolol Tartrate 25 mg 11/20/18 11:00 12/01/18 05:27 Lopressor PO 25 mg Q6HR BEAN Administration Morphine Sulfate 2 mg 11/20/18 15:44 12/01/18 06:36 Morphine IV 2 mg Q4H PRN Administration Pain, Moderate (4-6) Ondansetron HCl 4 mg 11/20/18 02:09 Zofran IV Q8H PRN Nausea And Vomiting Polyethylene Glycol 17 gm 11/20/18 06:34 Miralax 3350 PO QDAY PRN Constipation Senna/Docusate Sodium 1 tab 11/20/18 10:00 12/01/18 10:36 Senokot S PO Not Given BID BEAN Sodium Chloride 10 ml 11/20/18 10:00 12/01/18 10:36 Sodium Chloride Flush Syringe 10 Ml IV 10 ml BID BEAN Administration Sodium Chloride 10 ml 11/20/18 02:09 11/26/18 06:32 Sodium Chloride Flush Syringe 10 Ml IV 10 ml PRN PRN Administration LINE FLUSH
== END 2018-12-01 12:05 | disposition home or self-care (01) | DRG 871 ==
LOC: EDBD → ED 23:41 → CC1 11-20 02:09 → 4A 11-20 20:28
PROVIDERS: ADMIT Internal Medicine; ATTEND Hospitalist
PROC: 5A1D70Z Performance of Urinary Filtration, Intermittent, Less than 6 Hours Per Day (ICD-10-PCS; principal; 2018-11-20)
PROC: 5A1D70Z Performance of Urinary Filtration, Intermittent, Less than 6 Hours Per Day (ICD-10-PCS; 2018-11-21)
PROC: 5A1D70Z Performance of Urinary Filtration, Intermittent, Less than 6 Hours Per Day (ICD-10-PCS; 2018-11-22)
PROC: 5A1D70Z Performance of Urinary Filtration, Intermittent, Less than 6 Hours Per Day (ICD-10-PCS; 2018-11-24)
PROC: 5A1D70Z Performance of Urinary Filtration, Intermittent, Less than 6 Hours Per Day (ICD-10-PCS; 2018-11-26)
PROC: 5A1D70Z Performance of Urinary Filtration, Intermittent, Less than 6 Hours Per Day (ICD-10-PCS; 2018-11-27)
PROC: 5A1D70Z Performance of Urinary Filtration, Intermittent, Less than 6 Hours Per Day (ICD-10-PCS; 2018-11-29)
DX: A41.9 Sepsis, unspecified organism (principal); J18.9 Pneumonia, unspecified organism; N18.6 End stage renal disease; I50.23 Acute on chronic systolic (congestive) heart failure; J44.1 Chronic obstructive pulmonary disease with (acute) exacerbation; D69.6 Thrombocytopenia, unspecified; H11.32 Conjunctival hemorrhage, left eye; E11.22 Type 2 diabetes mellitus with diabetic chronic kidney disease; J44.0 Chronic obstructive pulmonary disease with (acute) lower respiratory infection; I13.2 Hypertensive heart and chronic kidney disease with heart failure and with stage 5 chronic kidney disease, or end stage renal disease; I25.10 Atherosclerotic heart disease of native coronary artery without angina pectoris; I48.2 Chronic atrial fibrillation; E11.51 Type 2 diabetes mellitus with diabetic peripheral angiopathy without gangrene; E78.5 Hyperlipidemia, unspecified; F43.10 Post-traumatic stress disorder, unspecified; X58.XXXA Exposure to other specified factors, initial encounter; I42.9 Cardiomyopathy, unspecified; K52.9 Noninfective gastroenteritis and colitis, unspecified; E87.5 Hyperkalemia; Z99.2 Dependence on renal dialysis; Z89.022 Acquired absence of left finger(s); Z82.49 Family history of ischemic heart disease and other diseases of the circulatory system; Z79.899 Other long term (current) drug therapy; Z91.030 Bee allergy status; Z88.8 Allergy status to other drugs, medicaments and biological substances; Z91.018 Allergy to other foods; Z79.01 Long term (current) use of anticoagulants; Z99.81 Dependence on supplemental oxygen; Z86.718 Personal history of other venous thrombosis and embolism; Z90.49 Acquired absence of other specified parts of digestive tract; Z87.891 Personal history of nicotine dependence; Z79.84 Long term (current) use of oral hypoglycemic drugs; Y93.89 Activity, other specified; Y92.89 Other specified places as the place of occurrence of the external cause; Y99.8 Other external cause status
CPT/HCPCS: 36415; 71045; 71046; 74176; 76604; 80048; 80053; 80061; 80074; 82550; 82553; 82962; 83880; 84100; 84484; 85025; 85027; 85610; 85730; 93005; 93010; 94640; 94644; 94760; 96374; 96375; G0378; A9270-GY; J0360; J0885; J1815; J1956; J2270; J2405; J2920; J2930; J7030

== ENCOUNTER 2018-12-22 03:25 | Inpatient (IN) | payer MEDICAID ==
[2018-12-22] MEDS ORDERED: NITRO-BID 2% TP ONE (03:57)
[2018-12-22] MEDS ORDERED: MORPHINE IV ONE ×2 (03:58→07:54)
--- NOTE | 2018-12-22 04:16 | XRay Report ---
CHEST 1 VIEW INDICATION: Chest Pain. COMPARISON: 11/22/2018. FINDINGS: Support devices: Unchanged. Heart: Stable. Lungs/Pleura: Left pleural effusion has increased in size. Diffuse increased interstitial opacities a re noted in both lungs. IMPRESSION: 1. Worsening left pleural effusion. Mild increased interstitial opacities are suggestive of interstit ial edema but are nonspecific. Signer Name: Ilir Ohara MD Signed: 12/22/2018 4:12 AM Workstation Name: [email or web address]
[2018-12-22 04:38] LABS: Basophils % (Auto) 0.8 % (0.0-1.8); Eosinophils # (Auto) 0.1 K/mm3 (0.0-0.4); Eosinophils % (Auto) 3.8 % (0.0-4.3); Hematocrit 29.6 % (35.5-45.6); Hemoglobin 9.6 gm/dl (11.8-15.2); Lymphocytes # (Auto) 0.7 K/mm3 (1.2-5.4); Lymphocytes % (Auto) 23.5 % (13.4-35.0); Mean Corpuscular HGB Conc 32 % (32-34); Mean Corpuscular Volume 101 fl (84-94); Monocytes # (Auto) 0.3 K/mm3 (0.0-0.8); Monocytes % (Auto) 10.5 % (0.0-7.3); Platelet Count 120 K/mm3 (140-440); Red Blood Count 2.92 M/mm3 (3.65-5.03); Red Cell Distribution Width 16.9 % (13.2-15.2)
[2018-12-22 04:45] LABS: INR 1.42 (0.87-1.13)
[2018-12-22 04:46] LABS: Partial Thromboplastin Time 32.4 Sec. (24.2-36.6)
--- NOTE | 2018-12-22 05:35 | Emergency Department Report ---
<HERMELINDA LAGUERRE - Last Filed: 12/22/18 05:32> ED Chest Pain HPI - General Chief Complaint: Dyspnea/Respdistress Stated Complaint: HI Time Seen by Provider: 12/22/18 03:42 Source: patient, EMS Mode of arrival: Stretcher Limitations: Physical Limitation - History of Present Illness Initial Comments: Patient is a 71-year-old male with a past medical history of end- stage renal disease who goes to dialysis on Monday as well as COPD and atrial fibrillation who is complaining of chest pain. Patient's pain has been present for approximately 2 hours prior to arrival. Patient states she does have a dry cough and there is a pleuritic component to the pain. This stated hurts worse when he takes a deep breath. Patient states she is very short of breath. Patient denies any fevers chills nausea vomiting diarrhea. Severity scale (0 -10): 9 - Related Data Home Medications Medication Instructions Recorded Confirmed Last Taken hydrALAZINE [Apresoline TAB] 50 mg PO BID 11/06/18 12/22/18 Unknown cloNIDine 0.3 mg 12/22/18 Unknown Previous Rx's Medication Instructions Recorded Last Taken Type Acetaminophen [Acetaminophen TAB] 650 mg PO Q4H PRN tablet 05/05/18 09/21/18 Rx Apixaban [Eliquis] 2.5 mg PO Q12HR #60 tablet 09/05/18 09/21/18 Rx FLUoxetine HCL [Fluoxetine HCl] 40 mg PO QDAY #30 capsule 09/05/18 09/21/18 Rx Famotidine [Pepcid] 10 mg PO BID #15 tablet 09/05/18 09/21/18 Rx Fe Fumarate/FA/Mv, Min Comb#15 1 each PO QDAY #30 capsule 09/05/18 09/21/18 Rx [Hemocyte Plus] ISOSORBIDE MONOnitrate [Imdur ER] 30 mg PO QDAY #30 tablet 09/05/18 09/21/18 Rx Losartan [Cozaar] 100 mg PO QDAY 30 Days tablet 09/05/18 09/21/18 Rx amLODIPine [Norvasc] 10 mg PO DAILY #30 tablet 09/05/18 09/21/18 Rx Mag Hydrox/Aluminum Hyd/Simeth 355 ml PO DAILY PRN 15 Days 11/08/18 Unknown Rx [Maalox Advanced Suspension] oral.susp Apixaban [Eliquis] 2.5 mg PO Q12HR #60 tablet 12/01/18 Unknown Rx AtorvaSTATin [Lipitor] 40 mg PO QHS #30 tablet 12/01/18 Unknown Rx Epoetin Prashant 10,000 Unit [Procrit] 10,000 unit SUB-Q KATERYNA PRN #30 vial 12/01/18 Unknown Rx ISOSORBIDE MONOnitrate [Imdur ER] 30 mg PO DAILY #30 tablet 12/01/18 Unknown Rx Metoprolol Xl [Metoprolol 100 mg PO QDAY #30 tablet 12/01/18 Unknown Rx SUCCINATE ER TAB] Sennosides/Docusate [Senokot S] 1 tab PO BID #20 tablet 12/01/18 Unknown Rx amLODIPine [Norvasc] 10 mg PO DAILY #30 tablet 12/01/18 Unknown Rx levoFLOXacin [Levaquin TAB] 500 mg PO QDAY #7 tablet 12/01/18 Unknown Rx metroNIDAZOLE [Flagyl] 500 mg PO Q8HR #21 tablet 12/01/18 Unknown Rx Allergies Allergy/AdvReac Type Severity Reaction Status Date / Time aspirin Allergy Unknown Verified 03/16/17 01:25 pork derived (porcine) Allergy Rash Verified 03/16/17 01:27 venom-honey bee Allergy Anaphylaxis Verified 03/16/17 01:27 [bee venom (honey bee)] Pork/Porcine Containing AdvReac Severe Nausea,VOMI Verified 02/13/17 09:31 Products TING Heart Score - HEART Score History: Moderately suspicious EKG: Non-specific Age: > 65 Risk factors: 1-2 risk factors ED Review of Systems Comment: All other systems reviewed and negative ED Past Medical Hx - Past Medical History Hx Hypertension: Yes Hx Heart Attack/AMI: No Hx Congestive Heart Failure: Yes Hx Diabetes: Yes Hx Deep Vein Thrombosis: Yes Hx Renal Disease: No Hx Arthritis: Yes Hx Kidney Stones: No Hx Psychiatric Treatment: Yes (PTSD) Hx Asthma: No Hx COPD: Yes (Pt is on Home O2 2L/NC.) Hx HIV: No Additional medical history: 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 abd surgery after war related ingury partial "stomach removal' - Social History Smoking Status: Former Smoker Substance Use Type: None - Medications Home Medications: Home Medications Medication Instructions Recorded Confirmed Last Taken Type Acetaminophen [Acetaminophen TAB] 650 mg PO Q4H PRN tablet 05/05/18 11/20/18 09/21/18 Rx Apixaban [Eliquis] 2.5 mg PO Q12HR #60 tablet 09/05/18 11/20/18 09/21/18 Rx FLUoxetine HCL [Fluoxetine HCl] 40 mg PO QDAY #30 capsule 09/05/18 12/22/18 09/21/18 Rx Famotidine [Pepcid] 10 mg PO BID #15 tablet 09/05/18 12/22/18 09/21/18 Rx Fe Fumarate/FA/Mv, Min Comb#15 1 each PO QDAY #30 capsule 09/05/18 11/20/18 09/21/18 Rx [Hemocyte Plus] ISOSORBIDE MONOnitrate [Imdur ER] 30 mg PO QDAY #30 tablet 09/05/18 11/20/18 09/21/18 Rx Losartan [Cozaar] 100 mg PO QDAY 30 Days tablet 09/05/18 12/22/18 09/21/18 Rx amLODIPine [Norvasc] 10 mg PO DAILY #30 tablet 09/05/18 12/22/18 09/21/18 Rx hydrALAZINE [Apresoline TAB] 50 mg PO BID 11/06/18 12/22/18 Unknown History Mag Hydrox/Aluminum Hyd/Simeth 355 ml PO DAILY PRN 15 Days 11/08/18 12/22/18 Unknown Rx [Maalox Advanced Suspension] oral.susp Apixaban [Eliquis] 2.5 mg PO Q12HR #60 tablet 12/01/18 12/22/18 Unknown Rx AtorvaSTATin [Lipitor] 40 mg PO QHS #30 tablet 12/01/18 12/22/18 Unknown Rx Epoetin Prashant 10,000 Unit [Procrit] 10,000 unit SUB-Q KATERYNA PRN #30 vial 12/01/18 Unknown Rx ISOSORBIDE MONOnitrate [Imdur ER] 30 mg PO DAILY #30 tablet 12/01/18 12/22/18 Unknown Rx Metoprolol Xl [Metoprolol 100 mg PO QDAY #30 tablet 12/01/18 Unknown Rx SUCCINATE ER TAB] Sennosides/Docusate [Senokot S] 1 tab PO BID #20 tablet 12/01/18 12/22/18 Unknown Rx amLODIPine [Norvasc] 10 mg PO DAILY #30 tablet 12/01/18 Unknown Rx levoFLOXacin [Levaquin TAB] 500 mg PO QDAY #7 tablet 12/01/18 Unknown Rx metroNIDAZOLE [Flagyl] 500 mg PO Q8HR #21 tablet 12/01/18 Unknown Rx cloNIDine 0.3 mg 12/22/18 Unknown History ED Physical Exam - General Limitations: Physical Limitation General appearance: alert, in no apparent distress - Head Head exam: Present: atraumatic, normocephalic - Eye Eye exam: Present: normal appearance, PERRL, EOMI - ENT ENT exam: Present: mucous membranes moist - Neck Neck exam: Present: normal inspection - Respiratory Respiratory exam: Present: normal lung sounds bilaterally. Absent: respiratory distress, wheezes, rales, rhonchi - Cardiovascular Cardiovascular Exam: Present: regular rate, irregular rhythm. Absent: systolic murmur, diastolic murmur, rubs, gallop - GI/Abdominal GI/Abdominal exam: Present: soft, normal bowel sounds. Absent: distended, tenderness, guarding - Rectal Rectal exam: Present: deferred - Extremities Exam Extremities exam: Present: normal inspection - Back Exam Back exam: Present: normal inspection - Neurological Exam Neurological exam: Present: alert, oriented X3 - Psychiatric Psychiatric exam: Present: normal affect, normal mood - Skin Skin exam: Present: warm, dry, intact, normal color. Absent: rash ED Course - Reevaluation(s) Reevaluation #1: 12/22/18 05:34 Patient is a 71-year-old -[place] male presented with chest pain. Patient is in atrial fibrillation at this time. Patient is awaiting laboratory studies to return. D-dimer is elevated and the patient will need either a VQ scan or a CTA. Patient turned over to the next physician. ROGER score - Roger Score Age > 65: (1) Yes Aspirin use within the Past 7 Days: (0) No 3 or more CAD Risk Factors: (1) Yes 2 or more Angina events in past 24 hrs: (0) No Known CAD with more than 50% Stenosis: (0) No Elevated Cardiac Markers: (1) Yes ST Deviation Greater than 0.5mm: (0) No ROGER Score: 3 ED Medical Decision Making - Lab Data Result diagrams: 12/22/18 04:12 ED Disposition Clinical Impression: ESRD needing dialysis, HTN (hypertension), Elevated troponin I level, Nonischemic cardiomyopathy, Anticoagulant long-term use, Thrombocytopenia, Afib, Pleural effusion Disposition: OP ADMIT IP TO THIS HOSP Condition: Stable Instructions: Hypertension (ED) Referrals: ARSLAN PIMENTEL MD [Primary Care Provider] - 3-5 Days <ENEDINA GREENBERG - Last Filed: 12/22/18 08:54> Heart Score - HEART Score History: Moderately suspicious EKG: Non-specific Age: > 65 Risk factors: 1-2 risk factors Troponin: 1-3x normal limit HEART Score: 6 - Critical Actions Critical Actions: 4-6 pts:12-16.6% risk of adverse cardiac event. Should be admitted ED Review of Systems ROS: Stated complaint: HI Other details as noted in HPI ED Course Vital Signs 12/22/18 12/22/18 12/22/18 03:33 03:36 03:43 Temperature 97.7 F Pulse Rate 88 87 Respiratory 14 Rate Blood Pressure Blood Pressure 182/121 [Right] O2 Sat by Pulse 98 Oximetry 12/22/18 12/22/18 12/22/18 03:45 04:00 04:15 Temperature Pulse Rate 93 H 86 85 Respiratory 18 26 H 18 Rate Blood Pressure 167/126 178/122 178/122 Blood Pressure [Right] O2 Sat by Pulse 94 98 97 Oximetry 12/22/18 12/22/18 12/22/18 04:31 04:45 05:01 Temperature Pulse Rate 87 86 98 H Respiratory 17 18 20 Rate Blood Pressure 182/121 170/118 176/129 Blood Pressure [Right] O2 Sat by Pulse 97 84 97 Oximetry 12/22/18 12/22/18 12/22/18 05:15 05:31 05:45 Temperature Pulse Rate 90 Respiratory 12 Rate Blood Pressure 195/127 185/128 194/127 Blood Pressure [Right] O2 Sat by Pulse 96 97 Oximetry 12/22/18 12/22/18 12/22/18 06:00 06:15 07:41 Temperature Pulse Rate 82 Respiratory Rate Blood Pressure 185/129 189/130 197/125 Blood Pressure [Right] O2 Sat by Pulse 92 94 Oximetry - Reevaluation(s) Reevaluation #2: 12/22/18 07:28 Patient found to have large left sided pleural effusion. This is a likely etiology of the patient's pain. The patient is not a suitable candidate for nuclear medicine study at this time secondary to his large left-sided pleural effusion, which will essentially render the study nondiagnostic. Patient hemodynamically stable, in fact, hypertensive, his antihypertensive regimen has been continued, however, d-dimer ordered prior to my arrival, and found to be elevated. The patient is on systemic anticoagulation, eliquis. He has a large bore peripheral external jugular IV that is in place. As per this institution's protocol, patient may not receive power CT contrast injection through external jugular IV. He does not require emergent placement of central line at this time. He does not require vasopressor therapy at this time. Adequate peripheral IV access has been established for administration of medications. Consult has been placed to PICC line nurse. Patient will require midline placement, which this provider is not capable of placing, for acquisition of angiogram. Nephrology transportation job titles has been paged. Dr Bonilla to admit for hypertensive urgency, and presumed symptomatic pleural effusion. Elevated troponin chronic, likely secondary to type II [place]. As per recent cardiology documentation, from 11/27/2018, he had a normal nuclear medicine study September 2018, and conservative cardiac management was recommended. Reevaluation #3: 12/22/18 07:41 Dr. Panchal of nephrology to follow in consultation. ROGER score - Roger Score Age > 65: (1) Yes Aspirin use within the Past 7 Days: (0) No 3 or more CAD Risk Factors: (1) Yes 2 or more Angina events in past 24 hrs: (0) No Known CAD with more than 50% Stenosis: (0) No Elevated Cardiac Markers: (1) Yes ST Deviation Greater than 0.5mm: (0) No ROGER Score: 3 ED Medical Decision Making - Lab Data Result diagrams: 12/22/18 04:12 12/22/18 04:12 Vital Signs 12/22/18 12/22/18 12/22/18 03:33 03:36 03:43 Temperature 97.7 F Pulse Rate 88 87 Respiratory 14 Rate Blood Pressure Blood Pressure 182/121 [Right] O2 Sat by Pulse 98 Oximetry 12/22/18 12/22/18 12/22/18 03:45 04:00 04:15 Temperature Pulse Rate 93 H 86 85 Respiratory 18 26 H 18 Rate Blood Pressure 167/126 178/122 178/122 Blood Pressure [Right] O2 Sat by Pulse 94 98 97 Oximetry 12/22/18 12/22/18 12/22/18 04:31 04:45 05:01 Temperature Pulse Rate 87 86 98 H Respiratory 17 18 20 Rate Blood Pressure 182/121 170/118 176/129 Blood Pressure [Right] O2 Sat by Pulse 97 84 97 Oximetry 12/22/18 12/22/18 12/22/18 05:15 05:31 05:45 Temperature Pulse Rate 90 Respiratory 12 Rate Blood Pressure 195/127 185/128 194/127 Blood Pressure [Right] O2 Sat by Pulse 96 97 Oximetry 12/22/18 12/22/18 06:00 06:15 Temperature Pulse Rate Respiratory Rate Blood Pressure 185/129 189/130 Blood Pressure [Right] O2 Sat by Pulse 92 94 Oximetry Lab Results 12/22/18 12/22/18 12/22/18 Range/Units 04:12 04:12 04:12 WBC 2.8 L (4.5-11.0) K/mm3 RBC 2.92 L (3.65-5.03) M/mm3 Hgb 9.6 L (11.8-15.2) gm/dl Hct 29.6 L (35.5-45.6) % MCV 101 H (84-94) fl MCH 33 H (28-32) pg MCHC 32 (32-34) % RDW 16.9 H (13.2-15.2) % Plt Count 120 L (140-440) K/mm3 Lymph % (Auto) 23.5 (13.4-35.0) % [place] % (Auto) 10.5 H (0.0-7.3) % Eos % (Auto) 3.8 (0.0-4.3) % Baso % (Auto) 0.8 (0.0-1.8) % Lymph # 0.7 L (1.2-5.4) K/mm3 [place] # 0.3 (0.0-0.8) K/mm3 Eos # 0.1 (0.0-0.4) K/mm3 Baso # 0.0 (0.0-0.1) K/mm3 Seg Neutrophils % 61.4 (40.0-70.0) % Seg Neutrophils # 1.7 L (1.8-7.7) K/mm3 PT 17.0 H (12.2-14.9) Sec. INR 1.42 H (0.87-1.13) APTT 32.4 (24.2-36.6) Sec. D-Dimer 1122.85 H (0-234) ng/mlDDU Sodium 141 (137-145) mmol/L Potassium 4.1 (3.6-5.0) mmol/L Chloride 105.3 (98-107) mmol/L Carbon Dioxide 22 (22-30) mmol/L Anion Gap 18 mmol/L BUN 42 H (9-20) mg/dL Creatinine 7.6 H (0.8-1.5) mg/dL Estimated GFR 9 ml/min BUN/Creatinine Ratio 6 % Glucose 118 H (75-100) mg/dL Calcium 8.8 (8.4-10.2) mg/dL Troponin T 0.147 H* (0.00-0.029) ng/mL Triglycerides 53 (2-149) mg/dL Cholesterol 87 (50-199) mg/dL LDL Cholesterol Direct 34 L (50-130) mg/dL HDL Cholesterol 47 (40-59) mg/dL Cholesterol/HDL Ratio 1.85 % - EKG Data 12/22/18 07:32 Atrial fibrillation, 93 bpm, left axis deviation, left anterior fascicular block, poor R progression, QTC prolonged, this is an abnormal EKG, the EKG is not consistent with ST elevation myocardial infarction - Radiology Data Radiology results: report reviewed, image reviewed Print Report Referring Physician: HERMELINDA LAGUERER Patient Name: NEENA GARCIA Date of : 1947-02-12 Sex: Male Report Date: 2018-12-22 Report Status: Finalized Findings [facility] [address] [place] [address] XRay Report Signed Patient: NEENA GARCIA MR#: [id number] : 02/12/1947 Acct:[id number] Age/Sex: 71 / M ADM Date: 12/22/18 Loc: ED Attending Dr: Ordering Physician: HERMELINDA LAGUERRE MD Date of Service: 12/22/18 Procedure(s): XR chest 1V ap Accession Number(s): [id number] cc: HERMELINDA LAGUERRE MD Fluoro Time In Minutes: CHEST 1 VIEW INDICATION: Chest Pain. COMPARISON: 11/22/2018. FINDINGS: Support devices: Unchanged. Heart: Stable. Lungs/Pleura: Left pleural effusion has increased in size. Diffuse increased interstitial opacities are noted in both lungs. IMPRESSION: 1. Worsening left pleural effusion. Mild increased interstitial opacities are suggestive of interstitial edema but are nonspecific. Signer Name: Ilir Ohara MD Signed: 12/22/2018 4:12 AM Workstation Name: [id number] Transcribed By: GABBY Dictated By: Ilir Ohara MD Electronically Authenticated By: Ilir Ohara MD Signed Date/Time: 12/22/18 0412 Critical care attestation.: If time is entered above; I have spent that time in minutes in the direct care of this critically ill patient, excluding procedure time. ED Disposition Is pt being admited?: Yes Does the pt Need Aspirin: Yes
[2018-12-22 05:52] LABS: BUN/Creatinine Ratio 6; Blood Urea Nitrogen 42 mg/dL (9-20); Calcium 8.8 mg/dL (8.4-10.2); Hemolysis Index 9
[2018-12-22 06:38] LABS: Chol/HDL Ratio 1.85 %; HDL Cholesterol 47 mg/dL (40-59); LDL Cholesterol,Direct 34 mg/dL (50-130)
[2018-12-22] MEDS ORDERED: NON-FORMULARY (Clonidine 0.3 MG) PO SCH (07:15)
--- NOTE | 2018-12-22 07:28 | History and Physical Report ---
History of Present Illness Date of examination: 12/22/18 Date of admission: 12/22/18 Chief complaint: Worsening shortness of breath for the last 3-4 days History of present illness: 71-year-old -[place] male patient with significant past medical history of end-stage renal disease on hemodialysis hypotension and congestive heart failure A. fib coronary artery disease PTSD hypertension presented to the emergency room with worsening shortness of breath of 3-4 days duration Patient is competent with hemodialysis, next dialysis is due today Impression evaluation in the ED chest x-rays consistent with large left-sided pleural effusion Nonspecific elevation of troponins, and elevated D dimers patient is already on Eliquis for his A. fib denies nausea or vomiting or abdominal pain Complaints of chest pain No headache dizziness, complains of generalized weakness Past History Past Medical History: atrial fib, dialysis, ESRD, heart failure, hypertension, hyperlipidemia Past Surgical History: Other (left arm amputation, left upper extremity clot removal, multiple finger amputations, back and spine surgery) Social history: lives with family. denies: smoking, alcohol abuse, prescription drug abuse Family history: hypertension Medications and Allergies Allergies Allergy/AdvReac Type Severity Reaction Status Date / Time aspirin Allergy Unknown Verified 03/16/17 01:25 pork derived (porcine) Allergy Rash Verified 03/16/17 01:27 venom-honey bee Allergy Anaphylaxis Verified 03/16/17 01:27 [bee venom (honey bee)] Pork/Porcine Containing AdvReac Severe Nausea,VOMI Verified 02/13/17 09:31 Products TING Home Medications Medication Instructions Recorded Confirmed Last Taken Type RX: Acetaminophen [Acetaminophen 650 mg PO Q4H PRN tablet 05/05/18 11/20/18 09/21/18 Rx TAB] RX: Apixaban [Eliquis] 2.5 mg PO Q12HR #60 tablet 09/05/18 11/20/18 09/21/18 Rx RX: FLUoxetine HCL [Fluoxetine HCl] 40 mg PO QDAY #30 capsule 09/05/18 12/22/18 09/21/18 Rx RX: Famotidine [Pepcid] 10 mg PO BID #15 tablet 09/05/18 12/22/18 09/21/18 Rx RX: Fe Fumarate/FA/Mv, Min Comb#15 1 each PO QDAY #30 capsule 09/05/18 11/20/18 09/21/18 Rx [Hemocyte Plus] RX: ISOSORBIDE MONOnitrate [Imdur 30 mg PO QDAY #30 tablet 09/05/18 11/20/1811/04 Rx ER] RX: Losartan [Cozaar] 100 mg PO QDAY 30 Days tablet 09/05/18 12/22/18 09/21/18 Rx RX: amLODIPine [Norvasc] 10 mg PO DAILY #30 tablet 09/05/18 12/22/18 09/21/18 Rx RX: hydrALAZINE [Apresoline TAB] 50 mg PO BID 11/06/18 12/22/18 Unknown History RX: Mag Hydrox/Aluminum Hyd/Simeth 355 ml PO DAILY PRN 15 Days 11/08/18 12/22/18 Unknown Rx [Maalox Advanced Suspension] oral.susp RX: Apixaban [Eliquis] 2.5 mg PO Q12HR #60 tablet 12/01/18 12/22/18 Unknown Rx RX: AtorvaSTATin [Lipitor] 40 mg PO QHS #30 tablet 12/01/18 12/22/18 Unknown Rx RX: Epoetin Prashant 10,000 Unit 10,000 unit SUB-Q KATERYNA PRN #30 vial 12/01/18 Unknown Rx [Procrit] RX: ISOSORBIDE MONOnitrate [Imdur 30 mg PO DAILY #30 tablet 12/01/18 12/22/18 Unknown Rx ER] RX: Metoprolol Xl [Metoprolol 100 mg PO QDAY #30 tablet 12/01/18 Unknown Rx SUCCINATE ER TAB] RX: Sennosides/Docusate [Senokot S] 1 tab PO BID #20 tablet 12/01/18 12/22/18 Unknown Rx RX: amLODIPine [Norvasc] 10 mg PO DAILY #30 tablet 12/01/18 Unknown Rx levoFLOXacin [Levaquin TAB] 500 mg PO QDAY #7 tablet 12/01/18 Unknown Rx metroNIDAZOLE [Flagyl] 500 mg PO Q8HR #21 tablet 12/01/18 Unknown Rx cloNIDine 0.3 mg 12/22/18 Unknown History Active Meds: Active Medications Amlodipine Besylate (Norvasc) 10 mg PO DAILY BEAN Hydralazine HCl (Apresoline) 50 mg PO BID BEAN Miscellaneous Medication (Clonidine) 0.3 mg PO Q8HR [facility] Review of Systems Constitutional: weakness, no weight loss, no weight gain, no fever Ears, nose, mouth and throat: no nasal congestion, no nasal discharge Cardiovascular: chest pain, orthopnea, shortness of breath Respiratory: shortness of breath, dyspnea on exertion Gastrointestinal: no abdominal pain, no nausea, no vomiting Genitourinary Male: no flank pain Musculoskeletal: no myalgias, no arthritis Integumentary: no rash, no lesions Neurological: no seizures, no syncope Psychiatric: no anxiety, no depression Endocrine: no cold intolerance, no heat intolerance Hematologic/Lymphatic: no easy bruising, no easy bleeding Allergic/Immunologic: no urticaria, no allergic rhinitis Exam - Constitutional Vitals: Temp Pulse Resp BP Pulse Ox 97.7 F 90 12 189/130 94 12/22/18 03:36 12/22/18 05:15 12/22/18 05:15 12/22/18 06:15 12/22/18 06:15 General appearance: Present: mild distress, cachectic, disheveled - EENT Eyes: Present: PERRL, EOM intact - Neck Neck: Present: supple, normal ROM - Respiratory Respiratory effort: normal Respiratory: bilateral: diminished (left >right), rales, negative: rhonchi, wheezing - Cardiovascular Rhythm: regular Heart Sounds: Present: S1 & S2 - Extremities Extremities: no ischemia, abnormal (left arm amputation) - Abdominal General gastrointestinal: Present: soft, non-tender, non-distended, normal bowel sounds - Integumentary Integumentary: Present: clear, warm - Musculoskeletal Musculoskeletal: strength equal bilaterally, generalized weakness - Psychiatric Psychiatric: appropriate mood/affect, cooperative - Neurologic Neurologic: moves all extremities Results - Labs CBC & Chem 7: 12/22/18 04:12 12/22/18 04:12 Labs: Abnormal lab results 12/22/18 12/22/18 12/22/18 Range/Units 04:12 04:12 04:12 WBC 2.8 L (4.5-11.0) K/mm3 RBC 2.92 L (3.65-5.03) M/mm3 Hgb 9.6 L (11.8-15.2) gm/dl Hct 29.6 L (35.5-45.6) % MCV 101 H (84-94) fl MCH 33 H (28-32) pg RDW 16.9 H (13.2-15.2) % Plt Count 120 L (140-440) K/mm3 [place] % (Auto) 10.5 H (0.0-7.3) % Lymph # 0.7 L (1.2-5.4) K/mm3 Seg Neutrophils # 1.7 L (1.8-7.7) K/mm3 PT 17.0 H (12.2-14.9) Sec. INR 1.42 H (0.87-1.13) D-Dimer 1122.85 H (0-234) ng/mlDDU BUN 42 H (9-20) mg/dL Creatinine 7.6 H (0.8-1.5) mg/dL Glucose 118 H (75-100) mg/dL Troponin T 0.147 H* (0.00-0.029) ng/mL LDL Cholesterol Direct 34 L (50-130) mg/dL Assessment and Plan --Acute respiratory failure secondary to fluid overload as well as left pleural effusion Oxygen titrated to O2 sats more than 90%, nebulizers as needed Due to underlying cause, hemodialysis per schedule --Large left pleural effusion; Hemodialysis, supportive care, possible thoracentesis Pulmonary consult --End-stage renal disease on hemodialysis; Nephrology consult, hemodialysis per schedule --Elevated d-dimer; VQ scan low probability for PE in September 2018 CT of chest prior to hemodialysisTo rule out PE, patient is already on Eliquis for afib Lower extremity venous Doppler to rule out DVT --Chronic elevation of troponins; nonspecific Patient had extensive cardiac evaluation during previous admissions Closely monitor --History of A. fib ; rate controlled Continue beta blockers, chronic anticoagulation with Eliquis --History of coronary artery disease; continue current cardiac medications --History of CHF; continue hemodialysis per schedule Cardiac medications --History of PTSD; resume medications Psych evaluation if needed --DVT Prophylaxis: patient on Eliquis --Full code Monitor closely and adjust management as needed Plan of care is reviewed with the patient and his nurse I spent 55 minutes coordinating this admission ,
[2018-12-22] MEDS ORDERED: APRESOLINE IV NR (07:31)
[2018-12-22] MEDS: CATAPRES PO SCH ×6 (07:41→21:41)
[2018-12-22] MEDS ORDERED: ALUM-MAG HYDROX-SIMETH 200-200-20MG/5ML PO PRN (10:00)
[2018-12-22] MEDS ORDERED: NORVASC PO SCH (10:00)
[2018-12-22] MEDS ORDERED: PEPCID PO SCH (10:00)
[2018-12-22] MEDS ORDERED: APRESOLINE PO SCH (10:00)
[2018-12-22] MEDS ORDERED: NON-FORMULARY (Fluoxetine Hcl [Fluoxetine Hcl] 40 MG) PO SCH (10:00)
--- NOTE | 2018-12-22 10:22 | Consultation ---
History of Present Illness Reason for consult: dyspnea, pleural effusion History of present illness: Patient with esrd on hd sp amputation. He was admitted with volume overload and pleural eff Pt on HD still sob Past History Past Medical History: atrial fib, dialysis, ESRD, heart failure, hypertension, hyperlipidemia Past Surgical History: Other (left arm amputation, left upper extremity clot removal, multiple finger amputations, back and spine surgery) Social history: lives with family. denies: smoking, alcohol abuse, prescription drug abuse Family history: hypertension Medications and Allergies Allergies Allergy/AdvReac Type Severity Reaction Status Date / Time aspirin Allergy Unknown Verified 03/16/17 01:25 pork derived (porcine) Allergy Rash Verified 03/16/17 01:27 venom-honey bee Allergy Anaphylaxis Verified 03/16/17 01:27 [bee venom (honey bee)] Pork/Porcine Containing AdvReac Severe Nausea,VOMI Verified 02/13/17 09:31 Products TING Home Medications Medication Instructions Recorded Confirmed Last Taken Type Acetaminophen [Acetaminophen TAB] 650 mg PO Q4H PRN tablet 05/05/18 11/20/18 09/21/18 Rx Apixaban [Eliquis] 2.5 mg PO Q12HR #60 tablet 09/05/18 11/20/18 09/21/18 Rx FLUoxetine HCL [Fluoxetine HCl] 40 mg PO QDAY #30 capsule 09/05/18 12/22/18 09/21/18 Rx Famotidine [Pepcid] 10 mg PO BID #15 tablet 09/05/18 12/22/18 09/21/18 Rx Fe Fumarate/FA/Mv, Min Comb#15 1 each PO QDAY #30 capsule 09/05/18 11/20/18 09/21/18 Rx [Hemocyte Plus] ISOSORBIDE MONOnitrate [Imdur ER] 30 mg PO QDAY #30 tablet 09/05/18 11/20/18 09/21/18 Rx Losartan [Cozaar] 100 mg PO QDAY 30 Days tablet 09/05/18 12/22/18 09/21/18 Rx amLODIPine [Norvasc] 10 mg PO DAILY #30 tablet 09/05/18 12/22/18 09/21/18 Rx hydrALAZINE [Apresoline TAB] 50 mg PO BID 11/06/18 12/22/18 Unknown History Mag Hydrox/Aluminum Hyd/Simeth 355 ml PO DAILY PRN 15 Days 11/08/18 12/22/18 Unknown Rx [Maalox Advanced Suspension] oral.susp Apixaban [Eliquis] 2.5 mg PO Q12HR #60 tablet 12/01/18 12/22/18 Unknown Rx AtorvaSTATin [Lipitor] 40 mg PO QHS #30 tablet 12/01/18 12/22/18 Unknown Rx Epoetin Prashant 10,000 Unit [Procrit] 10,000 unit SUB-Q KATERYNA PRN #30 vial 12/01/18 Unknown Rx ISOSORBIDE MONOnitrate [Imdur ER] 30 mg PO DAILY #30 tablet 12/01/18 12/22/18 Unknown Rx Metoprolol Xl [Metoprolol 100 mg PO QDAY #30 tablet 12/01/18 Unknown Rx SUCCINATE ER TAB] Sennosides/Docusate [Senokot S] 1 tab PO BID #20 tablet 12/01/18 12/22/18 Unknown Rx amLODIPine [Norvasc] 10 mg PO DAILY #30 tablet 12/01/18 Unknown Rx levoFLOXacin [Levaquin TAB] 500 mg PO QDAY #7 tablet 12/01/18 Unknown Rx metroNIDAZOLE [Flagyl] 500 mg PO Q8HR #21 tablet 12/01/18 Unknown Rx cloNIDine 0.3 mg 12/22/18 Unknown History Active Meds: Active Medications Al Hydrox/Mg Hydrox/Simethicone (Alum-Mag Hydrox-Simeth [id number]/5ml) 20 ml PO DAILY PRN PRN Reason: Dyspepsia Amlodipine Besylate (Norvasc) 10 mg PO DAILY BEAN Amlodipine Besylate (Norvasc) 10 mg PO DAILY BEAN Apixaban (Eliquis) 2.5 mg PO Q12HR BEAN; Protocol Atorvastatin Calcium (Lipitor) 40 mg PO QHS [facility] Clonidine HCl (Catapres) 0.1 mg PO Q8HR BEAN Last Admin: 12/22/18 07:41 Dose: 0.1 mg Documented by: Clonidine HCl (Catapres) 0.2 mg PO Q8HR BEAN Last Admin: 12/22/18 07:41 Dose: 0.2 mg Documented by: Epoetin Prashant (Procrit) 10,000 unit SUB-Q KATERYNA PRN PRN Reason: hemodialysis Famotidine (Pepcid) 5 mg PO BID [facility] Fluoxetine HCl (Prozac) 40 mg PO QDAY [facility] Hydralazine HCl (Apresoline) 25 mg PO BID [facility] Hydralazine HCl (Apresoline) 10 mg IV Q4H PRN PRN Reason: Hypertension Isosorbide Mononitrate (Imdur) 30 mg PO QDAY [facility] Losartan Potassium (Cozaar) 100 mg PO QDAY [facility] Metoprolol Succinate (Toprol Xl) 100 mg PO QDAY [facility] Multivitamins/Iron (Hemocyte Plus) 1 each PO QDAY [facility] Senna/Docusate Sodium (Senokot S) 1 tab PO BID [facility] Physical Examination Vital signs: Vital Signs Pulse Resp Pulse Ox 88 14 98 12/22/18 03:33 12/22/18 03:33 12/22/18 03:33 Results - Laboratory Findings CBC and BMP: 12/22/18 04:12 12/22/18 04:12 PT/INR, D-dimer PT 17.0 Sec. (12.2-14.9) H 12/22/18 04:12 INR 1.42 (0.87-1.13) H 12/22/18 04:12 1122.85 ng/mlDDU (0-234) H 12/22/18 04:12 Abnormal lab findings: Abnormal Labs 12/22/18 12/22/18 12/22/18 04:12 04:12 04:12 WBC 2.8 L RBC 2.92 L Hgb 9.6 L Hct 29.6 L MCV 101 H MCH 33 H RDW 16.9 H Plt Count 120 L [place] % (Auto) 10.5 H Lymph # 0.7 L Seg Neutrophils # 1.7 L PT 17.0 H INR 1.42 H D-Dimer 1122.85 H BUN 42 H Creatinine 7.6 H Glucose 118 H Troponin T 0.147 H* NT-Pro-B Natriuret Pep > 03201 H LDL Cholesterol Direct 34 L 12/22/18 06:37 WBC RBC Hgb Hct MCV MCH RDW Plt Count [place] % (Auto) Lymph # Seg Neutrophils # PT INR D-Dimer BUN Creatinine Glucose Troponin T 0.144 H* NT-Pro-B Natriuret Pep LDL Cholesterol Direct - Diagnostic Findings Chest x-ray: report reviewed, image reviewed Assessment and Plan - Patient Problems (1) Afib Current Visit: Yes Status: Acute (2) Anemia in CKD (chronic kidney disease) Current Visit: Yes Status: Acute Qualifiers: Chronic kidney disease stage: on chronic dialysis Qualified Code(s): N18.6 - End stage renal disease; D63.1 - Anemia in chronic kidney disease; Z99.2 - Dependence on renal dialysis (3) HTN (hypertension) Current Visit: Yes Status: Acute (4) Nonischemic cardiomyopathy Current Visit: Yes Status: Acute (5) Thrombocytopenia Current Visit: Yes Status: Acute (6) ESRD needing dialysis Current Visit: Yes Status: Chronic (7) Pleural effusion Current Visit: Yes Status: Chronic
[2018-12-22] MEDS ORDERED: NACL 0.9 (PRIMING MACHINE ONLY DIALYSIS) MC ONE (10:50)
--- NOTE | 2018-12-22 11:21 | Consultation ---
History of Present Illness - Reason for Consult Consult date: 12/22/18 end stage renal disease - History of Present Illness Pleasant 71-year-old [place]inean male with past medical history of end-stage renal disease in the setting of hypertension, diabetes with also a history of chronic A. fib, coronary disease, and congestive heart failure, with chronic left-sided pleural effusions that has required multiple thoracentesis in the past and documented as transudate, essentially presents to the emergency department secondary to worsening shortness of breath. He dialyzes at the [place] dialysis unit and is on a Monday//Monday schedule as outpatient dialysis. His last dialysis was . Nephrology is being consulted for chronic hemodialysis needs. Patient was evaluated in the dialysis unit this morning. Past History Past Medical History: atrial fib, dialysis, ESRD, heart failure, hypertension, hyperlipidemia Past Surgical History: Other (left arm amputation, left upper extremity clot removal, multiple finger amputations, back and spine surgery) Social history: lives with family. denies: smoking, alcohol abuse, prescription drug abuse Family history: hypertension Medications and Allergies Allergies Allergy/AdvReac Type Severity Reaction Status Date / Time aspirin Allergy Unknown Verified 03/16/17 01:25 pork derived (porcine) Allergy Rash Verified 03/16/17 01:27 venom-honey bee Allergy Anaphylaxis Verified 03/16/17 01:27 [bee venom (honey bee)] Pork/Porcine Containing AdvReac Severe Nausea,VOMI Verified 02/13/17 09:31 Products TING Home Medications Medication Instructions Recorded Confirmed Last Taken Type Acetaminophen [Acetaminophen TAB] 650 mg PO Q4H PRN tablet 05/05/18 11/20/18 09/21/18 Rx Apixaban [Eliquis] 2.5 mg PO Q12HR #60 tablet 09/05/18 11/20/18 09/21/18 Rx FLUoxetine HCL [Fluoxetine HCl] 40 mg PO QDAY #30 capsule 09/05/18 12/22/18 09/21/18 Rx Famotidine [Pepcid] 10 mg PO BID #15 tablet 09/05/18 12/22/18 09/21/18 Rx Fe Fumarate/FA/Mv, Min Comb#15 1 each PO QDAY #30 capsule 09/05/18 11/20/18 09/21/18 Rx [Hemocyte Plus] ISOSORBIDE MONOnitrate [Imdur ER] 30 mg PO QDAY #30 tablet 09/05/18 11/20/18 09/21/18 Rx Losartan [Cozaar] 100 mg PO QDAY 30 Days tablet 09/05/18 12/22/18 09/21/18 Rx amLODIPine [Norvasc] 10 mg PO DAILY #30 tablet 09/05/18 12/22/18 09/21/18 Rx hydrALAZINE [Apresoline TAB] 50 mg PO BID 11/06/18 12/22/18 Unknown History Mag Hydrox/Aluminum Hyd/Simeth 355 ml PO DAILY PRN 15 Days 11/08/18 12/22/18 Unknown Rx [Maalox Advanced Suspension] oral.susp Apixaban [Eliquis] 2.5 mg PO Q12HR #60 tablet 12/01/18 12/22/18 Unknown Rx AtorvaSTATin [Lipitor] 40 mg PO QHS #30 tablet 12/01/18 12/22/18 Unknown Rx Epoetin Prashant 10,000 Unit [Procrit] 10,000 unit SUB-Q KATERYNA PRN #30 vial 12/01/18 Unknown Rx ISOSORBIDE MONOnitrate [Imdur ER] 30 mg PO DAILY #30 tablet 12/01/18 12/22/18 Unknown Rx Metoprolol Xl [Metoprolol 100 mg PO QDAY #30 tablet 12/01/18 Unknown Rx SUCCINATE ER TAB] Sennosides/Docusate [Senokot S] 1 tab PO BID #20 tablet 12/01/18 12/22/18 Unknown Rx amLODIPine [Norvasc] 10 mg PO DAILY #30 tablet 12/01/18 Unknown Rx levoFLOXacin [Levaquin TAB] 500 mg PO QDAY #7 tablet 12/01/18 Unknown Rx metroNIDAZOLE [Flagyl] 500 mg PO Q8HR #21 tablet 12/01/18 Unknown Rx cloNIDine 0.3 mg 12/22/18 Unknown History Active Meds: Active Medications Al Hydrox/Mg Hydrox/Simethicone (Alum-Mag Hydrox-Simeth [id number]/5ml) 20 ml PO DAILY PRN PRN Reason: Dyspepsia Amlodipine Besylate (Norvasc) 10 mg PO DAILY BEAN Amlodipine Besylate (Norvasc) 10 mg PO DAILY BEAN Apixaban (Eliquis) 2.5 mg PO Q12HR BEAN; Protocol Atorvastatin Calcium (Lipitor) 40 mg PO QHS BEAN Clonidine HCl (Catapres) 0.1 mg PO Q8HR BEAN Last Admin: 12/22/18 07:41 Dose: 0.1 mg Documented by: Clonidine HCl (Catapres) 0.2 mg PO Q8HR BEAN Last Admin: 12/22/18 07:41 Dose: 0.2 mg Documented by: Epoetin Prashant (Procrit) 10,000 unit SUB-Q KATERYNA PRN PRN Reason: hemodialysis Famotidine (Pepcid) 5 mg PO BID [facility] Fluoxetine HCl (Prozac) 40 mg PO QDAY [facility] Hydralazine HCl (Apresoline) 25 mg PO BID BEAN Hydralazine HCl (Apresoline) 10 mg IV Q4H PRN PRN Reason: Hypertension Isosorbide Mononitrate (Imdur) 30 mg PO QDAY [facility] Losartan Potassium (Cozaar) 100 mg PO QDAY [facility] Metoprolol Succinate (Toprol Xl) 100 mg PO QDAY [facility] Multivitamins/Iron (Hemocyte Plus) 1 each PO QDAY [facility] Senna/Docusate Sodium (Senokot S) 1 tab PO BID [facility] Review of Systems All systems: negative Cardiovascular: orthopnea Respiratory: cough, shortness of breath Exam - Vital Signs Vital signs: Vital Signs Pulse Resp Pulse Ox 88 14 98 12/22/18 03:33 12/22/18 03:33 12/22/18 03:33 - General Appearance General appearance: well-developed, appears stated age EENT: ATNC, PERRL Neck: Present: neck supple, trachea midline Respiratory: Decreased Breath Sounds Heart: regular, S1S2 Gastrointestinal: Present: normal Integumentary: no rash, warm and dry Neurologic: no focal deficit, no asterixis Musculoskeletal: Present: other (-edema ) Psychiatric: mood/affect appropriate, cooperative Results - Lab Results 12/22/18 04:12 12/22/18 04:12 Most recent lab results Calcium 8.8 mg/dL (8.4-10.2) 12/22/18 04:12 Assessment and Plan - Patient Problems (1) ESRD needing dialysis Current Visit: Yes Status: Chronic Plan to address problem: Maintain on a Monday inpatient hemodialysis schedule. (2) Pleural effusion Current Visit: Yes Status: Chronic Plan to address problem: Await further recommendations and evaluation from pulmonology. Doubt we will achieve any significant changes with his chronic left-sided pleural effusion with hemodialysis and ultrafiltration. Patient may need to have the thoracentesis. (3) Hypertensive chronic kidney disease with stage 5 chronic kidney disease or end stage renal disease Current Visit: Yes Status: Chronic Plan to address problem: We'll monitor on his current regimen. (4) Type 2 diabetes mellitus with diabetic chronic kidney disease Current Visit: Yes Status: Chronic Qualifiers: Chronic kidney disease stage: on chronic dialysis Plan to address problem: Diabetes management per primary attending. (5) Anemia in CKD (chronic kidney disease) Current Visit: Yes Status: Acute Qualifiers: Chronic kidney disease stage: on chronic dialysis Qualified Code(s): N18.6 - End stage renal disease; D63.1 - Anemia in chronic kidney disease; Z99.2 - Dependence on renal dialysis Plan to address problem: Epogen with hemodialysis.
[2018-12-22] MEDS ORDERED: NACL 0.9% 100 ML IV PRN (11:23)
[2018-12-22] MEDS: BENADRYL IV PRN ×2 (11:52→20:47)
[2018-12-22] MEDS: APRESOLINE PO SCH ×2 (17:05→21:40)
[2018-12-22] MEDS: ELIQUIS PO SCH ×2 (17:06→21:41)
[2018-12-22] MEDS: HEMOCYTE PLUS PO SCH (17:06)
[2018-12-22] MEDS: COZAAR PO SCH (17:06)
[2018-12-22] MEDS: IMDUR PO SCH (17:07)
[2018-12-22] MEDS: PEPCID PO SCH ×3 (17:09→21:40)
[2018-12-22] MEDS: TOPROL XL PO SCH (17:09)
[2018-12-22] MEDS: NORVASC PO SCH (17:09)
[2018-12-22] MEDS: PROzac PO SCH (17:33)
[2018-12-22] MEDS: SENOKOT S PO SCH ×2 (17:34→21:41)
[2018-12-22] MEDS: PERCOCET 5/325 PO PRN (17:52)
[2018-12-23] MEDS: APRESOLINE IV PRN (04:55)
[2018-12-23] MEDS: BENADRYL IV PRN ×2 (04:56→12:04)
[2018-12-23] MEDS: CATAPRES PO SCH ×6 (05:02→22:23)
[2018-12-23 05:23] LABS: Creatine Kinase MB 2.7 ng/mL (0.0-4.0)
[2018-12-23 06:36] LABS: Calcium 8.9 mg/dL (8.4-10.2)
--- NOTE | 2018-12-23 08:54 | Progress Note ---
Assessment and Plan - Patient Problems (1) ESRD needing dialysis Current Visit: Yes Status: Chronic Plan to address problem: Maintain on a Monday inpatient hemodialysis schedule. (2) Pleural effusion Current Visit: Yes Status: Chronic Plan to address problem: Await further recommendations and evaluation from pulmonology. Tolerated his of ultrafiltration with hemodialysis. Unsure whether we will achieve any significant changes with his chronic left-sided pleural effusion with hemodialysis and ultrafiltration. Patient may need to have the thoracentesis. (3) Hypertensive chronic kidney disease with stage 5 chronic kidney disease or end stage renal disease Current Visit: Yes Status: Chronic Plan to address problem: We'll monitor on his current regimen. (4) Type 2 diabetes mellitus with diabetic chronic kidney disease Current Visit: Yes Status: Chronic Qualifiers: Chronic kidney disease stage: on chronic dialysis Plan to address problem: Diabetes management per primary attending. (5) Anemia in CKD (chronic kidney disease) Current Visit: Yes Status: Acute Qualifiers: Chronic kidney disease stage: on chronic dialysis Qualified Code(s): N18.6 - End stage renal disease; D63.1 - Anemia in chronic kidney disease; Z99.2 - Dependence on renal dialysis Plan to address problem: Epogen with hemodialysis. Subjective Date of service: 12/23/18 Interval history: No acute issues overnight. Tolerated hemodialysis well. Labs noted. Resting this morning without any acute complaints Objective - Vital Signs Vital signs: Vital Signs - 12hr 12/22/18 12/23/18 12/23/18 23:49 04:00 04:47 Temperature 97.5 F L Pulse Rate 66 72 63 Respiratory 18 18 Rate Blood Pressure 134/100 165/118 O2 Sat by Pulse 100 97 Oximetry 12/23/18 08:10 Temperature 97.5 F L Pulse Rate Respiratory 18 Rate Blood Pressure 170/121 O2 Sat by Pulse Oximetry - General Appearance General appearance: well-nourished, appears stated age EENT: ATNC, PERRL Neck: no JVD, no thyromegaly Respiratory: Present: Clear to Ascultation Cardiology: regular, S1S2 Gastrointestinal: normal, normoactive bowel sounds Integumentary: no rash Neurologic: no focal deficit, no asterixis Musculoskeletal: other (negative edema) Psychiatric: mood/affect appropriate, cooperative - Lab 12/22/18 04:12 12/23/18 04:14 Most recent lab results Calcium 8.9 mg/dL (8.4-10.2) 12/23/18 04:14 - Allied health notes Allied health notes reviewed: nursing Medications & Allergies - Medications Allergies/Adverse Reactions: Allergies aspirin Allergy (Verified 03/16/17 01:25) Unknown stomach cramps pork derived (porcine) Allergy (Verified 03/16/17 01:27) Rash venom-honey bee [bee venom (honey bee)] Allergy (Verified 03/16/17 01:27) Anaphylaxis Pork/Porcine Containing Products Adverse Reaction (Severe, Verified 02/13/17 09:31) Nausea,VOMITING Home Medications: Home Medications Medication Instructions Recorded Confirmed Last Taken Type Acetaminophen [Acetaminophen TAB] 650 mg PO Q4H PRN tablet 05/05/18 11/20/18 09/21/18 Rx Apixaban [Eliquis] 2.5 mg PO Q12HR #60 tablet 09/05/18 11/20/18 09/21/18 Rx FLUoxetine HCL [Fluoxetine HCl] 40 mg PO QDAY #30 capsule 09/05/18 12/22/18 09/21/18 Rx Famotidine [Pepcid] 10 mg PO BID #15 tablet 09/05/18 12/22/18 09/21/18 Rx Fe Fumarate/FA/Mv, Min Comb#15 1 each PO QDAY #30 capsule 09/05/18 11/20/18 09/21/18 Rx [Hemocyte Plus] ISOSORBIDE MONOnitrate [Imdur ER] 30 mg PO QDAY #30 tablet 09/05/18 11/20/18 09/21/18 Rx Losartan [Cozaar] 100 mg PO QDAY 30 Days tablet 09/05/18 12/22/18 09/21/18 Rx amLODIPine [Norvasc] 10 mg PO DAILY #30 tablet 09/05/18 12/22/18 09/21/18 Rx hydrALAZINE [Apresoline TAB] 50 mg PO BID 11/06/18 12/22/18 Unknown History Mag Hydrox/Aluminum Hyd/Simeth 355 ml PO DAILY PRN 15 Days 11/08/18 12/22/18 Unknown Rx [Maalox Advanced Suspension] oral.susp Apixaban [Eliquis] 2.5 mg PO Q12HR #60 tablet 12/01/18 12/22/18 Unknown Rx AtorvaSTATin [Lipitor] 40 mg PO QHS #30 tablet 12/01/18 12/22/18 Unknown Rx Epoetin Prashant 10,000 Unit [Procrit] 10,000 unit SUB-Q KATERYNA PRN #30 vial 12/01/18 Unknown Rx ISOSORBIDE MONOnitrate [Imdur ER] 30 mg PO DAILY #30 tablet 12/01/18 12/22/18 Unknown Rx Metoprolol Xl [Metoprolol 100 mg PO QDAY #30 tablet 12/01/18 Unknown Rx SUCCINATE ER TAB] Sennosides/Docusate [Senokot S] 1 tab PO BID #20 tablet 12/01/18 12/22/18 Unknown Rx amLODIPine [Norvasc] 10 mg PO DAILY #30 tablet 12/01/18 Unknown Rx levoFLOXacin [Levaquin TAB] 500 mg PO QDAY #7 tablet 12/01/18 Unknown Rx metroNIDAZOLE [Flagyl] 500 mg PO Q8HR #21 tablet 12/01/18 Unknown Rx cloNIDine 0.3 mg 12/22/18 Unknown History Active Medications: Generic Name Dose Route Start Last Admin Trade Name Freq PRN Reason Stop Dose Admin Al Hydrox/Mg Hydrox/Simethicone 20 ml 12/22/18 10:00 Alum-Mag Hydrox-Simeth [phone]/5ml PO DAILY PRN Dyspepsia Amlodipine Besylate 10 mg 12/22/18 10:00 12/22/18 17:09 Norvasc PO Not Given DAILY BEAN Apixaban 2.5 mg 12/22/18 10:00 12/22/18 21:41 Eliquis PO 2.5 mg Q12HR BEAN Administration Protocol Atorvastatin Calcium 40 mg 12/22/18 22:00 12/22/18 21:39 Lipitor PO 40 mg QHS BEAN Administration Clonidine HCl 0.1 mg 12/22/18 07:45 12/23/18 05:02 Catapres PO 0.1 mg Q8HR BEAN Administration Clonidine HCl 0.2 mg 12/22/18 07:45 12/23/18 05:02 Catapres PO 0.2 mg Q8HR BEAN Administration Diphenhydramine HCl 25 mg 12/22/18 11:23 12/23/18 04:56 Benadryl IV 25 mg KATERYNA PRN Administration Itching Epoetin Prashant 10,000 unit 12/22/18 07:28 Procrit SUB-Q KATERYNA PRN hemodialysis Famotidine 5 mg 12/22/18 10:00 12/22/18 21:40 Pepcid PO 5 mg BID BEAN Administration Fluoxetine HCl 40 mg 12/22/18 10:00 12/22/18 17:33 Prozac PO 40 mg QDAY BEAN Administration Hydralazine HCl 25 mg 12/22/18 10:00 12/22/18 21:40 Apresoline PO 25 mg BID BEAN Administration Hydralazine HCl 10 mg 12/22/18 07:31 12/23/18 04:55 Apresoline IV 10 mg Q4H PRN Administration Hypertension Sodium Chloride 100 mls @ 999 mls/hr 12/22/18 11:23 Nacl 0.9% IV KATERYNA PRN Hypotension Isosorbide Mononitrate 30 mg 12/22/18 10:00 12/22/18 17:07 Imdur PO Not Given QDAY [facility] Losartan Potassium 100 mg 12/22/18 10:00 12/22/18 17:06 Cozaar PO Not Given QDAY [facility] Metoprolol Succinate 100 mg 12/22/18 10:00 12/22/18 17:09 Toprol Xl PO Not Given QDAY [facility] Multivitamins/Iron 1 each 12/22/18 10:00 12/22/18 17:06 Hemocyte Plus PO Not Given QDAY [facility] Oxycodone/Acetaminophen 1 tab 12/22/18 17:41 12/22/18 17:52 Percocet 5/325 PO 1 tab Q6H PRN Administration Pain, Moderate (4-6) Senna/Docusate Sodium 1 tab 12/22/18 10:00 12/22/18 21:41 Senokot S PO 1 tab BID BEAN Administration
--- NOTE | 2018-12-23 09:42 | Progress Note ---
Assessment and Plan - Patient Problems (1) Afib Current Visit: Yes Status: Acute (2) Anemia in CKD (chronic kidney disease) Current Visit: Yes Status: Acute Qualifiers: Chronic kidney disease stage: on chronic dialysis Qualified Code(s): N18.6 - End stage renal disease; D63.1 - Anemia in chronic kidney disease; Z99.2 - Dependence on renal dialysis (3) HTN (hypertension) Current Visit: Yes Status: Acute (4) Nonischemic cardiomyopathy Current Visit: Yes Status: Acute (5) Thrombocytopenia Current Visit: Yes Status: Acute (6) ESRD needing dialysis Current Visit: Yes Status: Chronic (7) Pleural effusion Current Visit: Yes Status: Chronic Subjective Interval history: pt not in room Objective Vital Signs - 12hr 12/22/18 12/23/18 12/23/18 23:49 04:00 04:47 Temperature 97.5 F L Pulse Rate 66 72 63 Respiratory 18 18 Rate Blood Pressure 134/100 165/118 O2 Sat by Pulse 100 97 Oximetry 12/23/18 08:10 Temperature 97.5 F L Pulse Rate Respiratory 18 Rate Blood Pressure 170/121 O2 Sat by Pulse Oximetry CBC and BMP: 12/22/18 04:12 12/23/18 04:14 ABG, PT/INR, D-dimer: PT/INR, D-dimer PT 17.0 Sec. (12.2-14.9) H 12/22/18 04:12 INR 1.42 (0.87-1.13) H 12/22/18 04:12 1122.85 ng/mlDDU (0-234) H 12/22/18 04:12 Abnormal lab findings: Abnormal Labs 12/22/18 12/22/18 12/22/18 04:12 04:12 04:12 WBC 2.8 L RBC 2.92 L Hgb 9.6 L Hct 29.6 L MCV 101 H MCH 33 H RDW 16.9 H Plt Count 120 L [place] % (Auto) 10.5 H Lymph # 0.7 L Seg Neutrophils # 1.7 L PT 17.0 H INR 1.42 H D-Dimer 1122.85 H Sodium BUN 42 H Creatinine 7.6 H Glucose 118 H Total Creatine Kinase CK-MB (CK-2) Rel Index Troponin T 0.147 H* NT-Pro-B Natriuret Pep > 65915 H LDL Cholesterol Direct 34 L 12/22/18 12/23/18 12/23/18 06:37 04:14 04:14 WBC RBC Hgb Hct MCV MCH RDW Plt Count [place] % (Auto) Lymph # Seg Neutrophils # PT INR D-Dimer Sodium 135 L BUN 24 H Creatinine 4.7 H Glucose Total Creatine Kinase 46 L CK-MB (CK-2) Rel Index 5.8 H Troponin T 0.144 H* 0.177 H* D NT-Pro-B Natriuret Pep LDL Cholesterol Direct Chest x-ray: report reviewed, image reviewed Allied health notes reviewed: nursing
--- NOTE | 2018-12-23 09:54 | Consultation ---
History of Present Illness Consult date: 12/23/18 Consult reason: atrial fibrillation, hypertension History of present illness: 71 year old -[place] male presented with shortness of breath and chest pain. Chest pain described as left precordial constant. Not associated with exertion diaphoresis or radiation. Past History Past Medical History: atrial fib, dialysis, ESRD, heart failure, hypertension, hyperlipidemia Past Surgical History: Other (left arm amputation, left upper extremity clot removal, multiple finger amputations, back and spine surgery) Social history: lives with family. denies: smoking, alcohol abuse, prescription drug abuse Family history: hypertension Medications and Allergies Allergies Allergy/AdvReac Type Severity Reaction Status Date / Time aspirin Allergy Unknown Verified 03/16/17 01:25 pork derived (porcine) Allergy Rash Verified 03/16/17 01:27 venom-honey bee Allergy Anaphylaxis Verified 03/16/17 01:27 [bee venom (honey bee)] Pork/Porcine Containing AdvReac Severe Nausea,VOMI Verified 02/13/17 09:31 Products TING Home Medications Medication Instructions Recorded Confirmed Last Taken Type Acetaminophen [Acetaminophen TAB] 650 mg PO Q4H PRN tablet 05/05/18 11/20/18 09/21/18 Rx Apixaban [Eliquis] 2.5 mg PO Q12HR #60 tablet 09/05/18 11/20/18 09/21/18 Rx FLUoxetine HCL [Fluoxetine HCl] 40 mg PO QDAY #30 capsule 09/05/18 12/22/18 09/21/18 Rx Famotidine [Pepcid] 10 mg PO BID #15 tablet 09/05/18 12/22/18 09/21/18 Rx Fe Fumarate/FA/Mv, Min Comb#15 1 each PO QDAY #30 capsule 09/05/18 11/20/18 09/21/18 Rx [Hemocyte Plus] ISOSORBIDE MONOnitrate [Imdur ER] 30 mg PO QDAY #30 tablet 09/05/18 11/20/18 09/21/18 Rx Losartan [Cozaar] 100 mg PO QDAY 30 Days tablet 09/05/18 12/22/18 09/21/18 Rx amLODIPine [Norvasc] 10 mg PO DAILY #30 tablet 09/05/18 12/22/18 09/21/18 Rx hydrALAZINE [Apresoline TAB] 50 mg PO BID 11/06/18 12/22/18 Unknown History Mag Hydrox/Aluminum Hyd/Simeth 355 ml PO DAILY PRN 15 Days 11/08/18 12/22/18 Unknown Rx [Maalox Advanced Suspension] oral.susp Apixaban [Eliquis] 2.5 mg PO Q12HR #60 tablet 12/01/18 12/22/18 Unknown Rx AtorvaSTATin [Lipitor] 40 mg PO QHS #30 tablet 12/01/18 12/22/18 Unknown Rx Epoetin Prashant 10,000 Unit [Procrit] 10,000 unit SUB-Q KATERYNA PRN #30 vial 12/01/18 Unknown Rx ISOSORBIDE MONOnitrate [Imdur ER] 30 mg PO DAILY #30 tablet 12/01/18 12/22/18 Unknown Rx Metoprolol Xl [Metoprolol 100 mg PO QDAY #30 tablet 12/01/18 Unknown Rx SUCCINATE ER TAB] Sennosides/Docusate [Senokot S] 1 tab PO BID #20 tablet 12/01/18 12/22/18 Unknown Rx amLODIPine [Norvasc] 10 mg PO DAILY #30 tablet 12/01/18 Unknown Rx levoFLOXacin [Levaquin TAB] 500 mg PO QDAY #7 tablet 12/01/18 Unknown Rx metroNIDAZOLE [Flagyl] 500 mg PO Q8HR #21 tablet 12/01/18 Unknown Rx cloNIDine 0.3 mg 12/22/18 Unknown History Active Meds: Active Medications Al Hydrox/Mg Hydrox/Simethicone (Alum-Mag Hydrox-Simeth [phone]/5ml) 20 ml PO DAILY PRN PRN Reason: Dyspepsia Amlodipine Besylate (Norvasc) 10 mg PO DAILY [facility] Last Admin: 12/22/18 17:09 Dose: Not Given Documented by: Apixaban (Eliquis) 2.5 mg PO Q12HR [facility]; Protocol Last Admin: 12/22/18 21:41 Dose: 2.5 mg Documented by: Atorvastatin Calcium (Lipitor) 40 mg PO QHS [facility] Last Admin: 12/22/18 21:39 Dose: 40 mg Documented by: Clonidine HCl (Catapres) 0.1 mg PO Q8HR [facility] Last Admin: 12/23/18 05:02 Dose: 0.1 mg Documented by: Clonidine HCl (Catapres) 0.2 mg PO Q8HR [facility] Last Admin: 12/23/18 05:02 Dose: 0.2 mg Documented by: Diphenhydramine HCl (Benadryl) 25 mg IV KATERYNA PRN PRN Reason: Itching Last Admin: 12/23/18 04:56 Dose: 25 mg Documented by: Epoetin Prashant (Procrit) 10,000 unit SUB-Q KATERYNA PRN PRN Reason: hemodialysis Famotidine (Pepcid) 5 mg PO BID [facility] Last Admin: 12/22/18 21:40 Dose: 5 mg Documented by: Fluoxetine HCl (Prozac) 40 mg PO QDAY [facility] Last Admin: 12/22/18 17:33 Dose: 40 mg Documented by: Hydralazine HCl (Apresoline) 25 mg PO BID [facility] Last Admin: 12/22/18 21:40 Dose: 25 mg Documented by: Hydralazine HCl (Apresoline) 10 mg IV Q4H PRN PRN Reason: Hypertension Last Admin: 12/23/18 04:55 Dose: 10 mg Documented by: Sodium Chloride (Nacl 0.9%) 100 mls @ 999 mls/hr IV KATERYNA PRN PRN Reason: Hypotension Isosorbide Mononitrate (Imdur) 30 mg PO QDAY [facility] Last Admin: 12/22/18 17:07 Dose: Not Given Documented by: Losartan Potassium (Cozaar) 100 mg PO QDAY [facility] Last Admin: 12/22/18 17:06 Dose: Not Given Documented by: Metoprolol Succinate (Toprol Xl) 100 mg PO QDAY [facility] Last Admin: 12/22/18 17:09 Dose: Not Given Documented by: Multivitamins/Iron (Hemocyte Plus) 1 each PO QDAY [facility] Last Admin: 12/22/18 17:06 Dose: Not Given Documented by: Oxycodone/Acetaminophen (Percocet 5/325) 1 tab PO Q6H PRN PRN Reason: Pain, Moderate (4-6) Last Admin: 12/22/18 17:52 Dose: 1 tab Documented by: Senna/Docusate Sodium (Senokot S) 1 tab PO BID [facility] Last Admin: 12/22/18 21:41 Dose: 1 tab Documented by: Review of Systems Constitutional: sweats, no weight loss, no weight gain, no fatigue, no weakness Ears, nose, mouth and throat: no deferred, no ear pain, no ear discharge, no vertigo Cardiovascular: chest pain, shortness of breath, dyspnea on exertion, paroxysmal nocturnal dyspnea Respiratory: no cough, no cough with sputum, no congestion Gastrointestinal: no abdominal pain, no nausea, no vomiting Genitourinary Male: no dysuria, no hematuria, no flank pain Rectal: no pain, no bleeding Musculoskeletal: no neck stiffness, no neck pain Integumentary: no deferred, no rash, no pruritis, no redness Neurological: no head injury, no transient paralysis, no paralysis, no weakness, no parathesias Endocrine: no cold intolerance, no heat intolerance, no polydipsia, no polyuria, no nocturia Hematologic/Lymphatic: no easy bruising, no easy bleeding Allergic/Immunologic: no urticaria, no allergic rhinitis Physical Examination Vital Signs Pulse Resp Pulse Ox 88 14 98 12/22/18 03:33 12/22/18 03:33 12/22/18 03:33 General appearance: no acute distress HEENT: Positive: PERRL, Normocephaly, Mucus Membranes Moist Neck: Positive: trachea midline. Negative: neck supple, JVD/HJR Cardiac: Positive: irregularly irregular, S1/S2, Systolic Murmur, PMI, Laterally Displaced Lungs: Positive: Decreased Breath Sounds. Negative: Rales, Rhonchi Neuro: Positive: Grossly Intact Abdomen: Positive: Unremarkable, Soft, Active Bowel Sounds Extremities: Absent: edema Results 12/22/18 04:12 12/23/18 04:14 Cardiac Enzymes 12/23/18 Range/Units 04:14 CK-MB (CK-2) 2.7 (0.0-4.0) ng/mL Comprehensive Metabolic Panel 12/23/18 Range/Units 04:14 Sodium 135 L (137-145) mmol/L Potassium 4.6 (3.6-5.0) mmol/L Chloride 98.0 (98-107) mmol/L Carbon Dioxide 24 (22-30) mmol/L BUN 24 H (9-20) mg/dL Creatinine 4.7 H (0.8-1.5) mg/dL Glucose 98 (75-100) mg/dL Calcium 8.9 (8.4-10.2) mg/dL - EKG Interpretation EKG shows: atrial fibrillation EKG interpretations - Telemetry EKG Rhythm: Atrial Fibrillation Assessment and Plan 1. Atypical chest pain probably related 2. Chronic atrial fibrillation 3. Nonischemic cardiomyopathy 4. End stage renal disease on hemodialysis 5. Nonobstructive coronary artery disease 6. Essential hypertension 7. Large left pleural effusion 8. PTSD Plan Obtain an echocardiogram to assess global neurologic no function. Pulmonary consult for elective thoracocentesis. Lexiscan thallium to rule out ischemic coronary artery disease.
--- NOTE | 2018-12-23 09:56 | XRay Report ---
CHEST 2 VIEWS INDICATION / CLINICAL INFORMATION: Pleural effusion. COMPARISON: Yesterday. FINDINGS: SUPPORT DEVICES: The position of the right jugular CVL has not changed with the tip overlying the upp er right atrium. HEART / MEDIASTINUM: Unchanged. LUNGS / PLEURA: Moderately severe pleuroparenchymal opacity in the left mid to lower hemithorax is st able. Much milder disease in the right lower hemithorax may be mildly increased. Pulmonary vascular c ongestion and interstitial edema are again noted. There is no evidence of pneumothorax. ADDITIONAL FINDINGS: There is a left subclavian endovascular stent graft. Surgical changes are presen t in the cervicothoracic spine. IMPRESSION: Bilateral pleuroparenchymal opacity, much greater on the left than the right. Disease on the right may be mildly increased. Signer Name: Juan Sarabia MD Signed: 12/23/2018 9:52 AM Workstation Name: [id number]
[2018-12-23] MEDS: ELIQUIS PO SCH ×2 (10:55→22:24)
[2018-12-23] MEDS: COZAAR PO SCH (10:55)
[2018-12-23] MEDS: HEMOCYTE PLUS PO SCH (10:55)
[2018-12-23] MEDS: SENOKOT S PO SCH ×2 (10:56→22:23)
[2018-12-23] MEDS: PROzac PO SCH (10:56)
[2018-12-23] MEDS: IMDUR PO SCH (10:56)
[2018-12-23] MEDS: APRESOLINE PO SCH ×2 (10:56→22:22)
[2018-12-23] MEDS: TOPROL XL PO SCH (10:56)
[2018-12-23] MEDS: NORVASC PO SCH (10:57)
--- NOTE | 2018-12-23 11:03 | Vascular Lab Report ---
DUPLEX DOPPLER LOWER EXTREMITY VEINS, BILATERAL INDICATION: Elevated d-dimer. TECHNIQUE: Duplex doppler imaging was performed through the veins of both lower extremities using venous meron gosia and other maneuvers. COMPARISON: None available. FINDINGS: Right Common femoral vein: Negative. Right Superficial femoral vein: Negative. Right Popliteal vein: Negative. Right Calf veins: Negative. Left Common femoral vein: Negative. Left Superficial femoral vein: Negative. Left Popliteal vein: Negative. Left Calf veins: Negative. Additional findings: There is no evidence of a popliteal cyst or other abnormality. IMPRESSION: No sonographic evidence for DVT in either lower extremity. Signer Name: Juan Sarabia MD Signed: 12/23/2018 10:59 AM Workstation Name: [id number]
[2018-12-23] MEDS: PEPCID PO SCH ×2 (11:05→22:21)
[2018-12-23 12:58] LABS: Creatine Kinase MB 3.5 ng/mL (0.0-4.0)
--- NOTE | 2018-12-23 15:55 | Progress Note ---
Assessment and Plan Assessment and plan: --Acute respiratory failure secondary to fluid overload as well as left pleural effusion Oxygen titrated to O2 sats more than 90%, nebulizers as needed Due to underlying cause, hemodialysis per schedule --Acute on chronic systolic CHF; ejection fraction 10-15%, HD per schedule,anti-failure medications. --Large left pleural effusion; Hemodialysis, supportive care, possible thoracentesis Pulmonary evaluation noted --End-stage renal disease on hemodialysis; Nephrology consult, hemodialysis per schedule --Elevated d-dimer; VQ scan low probability for PE in September 2018 CT of chest prior to hemodialysisTo rule out PE, patient is already on Eliquis for afib Lower extremity venous Doppler to rule out DVT --Chronic elevation of troponins; nonspecific Patient had extensive cardiac evaluation during previous admissions Cardiology consult --History of A. fib ; rate controlled Continue beta blockers, chronic anticoagulation with Eliquis --History of coronary artery disease; continue current cardiac medications --History of PTSD; resume medications Psych evaluation if needed --DVT Prophylaxis: patient on Eliquis --Full code Monitor closely and adjust management as needed Plan of care is reviewed with the patient and his nurse I spent 55 minutes coordinating this admission , History Interval history: Patient seen and examined medical records reviewed Since admission patient is seen in hemodialysis, feels slightly better Still has shortness of breath Alert awake oriented cachectic Vital signs reviewed, Hospitalist Physical - Constitutional Vitals: Temp Pulse Resp BP Pulse Ox 97.5 F L 62 18 118/80 98 12/23/18 08:10 12/23/18 14:02 12/23/18 09:00 12/23/18 14:02 12/23/18 15:42 General appearance: Present: no acute distress, well-nourished - EENT Eyes: Present: PERRL, EOM intact - Neck Neck: Present: supple, normal ROM - Respiratory Respiratory effort: normal Respiratory: bilateral: diminished, negative: rhonchi - Cardiovascular Rhythm: regular Heart Sounds: Present: S1 & S2 - Extremities Extremities: no ischemia Extremity abnormal: edema - Abdominal General gastrointestinal: soft, non-tender, non-distended, normal bowel sounds - Integumentary Integumentary: Present: clear, warm - Psychiatric Psychiatric: appropriate mood/affect, cooperative - Neurologic Neurologic: CNII-XII intact, moves all extremities Results - Labs CBC & Chem 7: 12/22/18 04:12 12/23/18 04:14 Labs: Laboratory Last Values WBC 2.8 K/mm3 (4.5-11.0) L 12/22/18 04:12 RBC 2.92 M/mm3 (3.65-5.03) L 12/22/18 04:12 Hgb 9.6 gm/dl (11.8-15.2) L 12/22/18 04:12 Hct 29.6 % (35.5-45.6) L 12/22/18 04:12 MCV 101 fl (84-94) H 12/22/18 04:12 MCH 33 pg (28-32) H 12/22/18 04:12 MCHC 32 % (32-34) 12/22/18 04:12 RDW 16.9 % (13.2-15.2) H 12/22/18 04:12 Plt Count 120 K/mm3 (140-440) L 12/22/18 04:12 Lymph % (Auto) 23.5 % (13.4-35.0) 12/22/18 04:12 [place] % (Auto) 10.5 % (0.0-7.3) H 12/22/18 04:12 Eos % (Auto) 3.8 % (0.0-4.3) 12/22/18 04:12 Baso % (Auto) 0.8 % (0.0-1.8) 12/22/18 04:12 Lymph # 0.7 K/mm3 (1.2-5.4) L 12/22/18 04:12 [place] # 0.3 K/mm3 (0.0-0.8) 12/22/18 04:12 Eos # 0.1 K/mm3 (0.0-0.4) 12/22/18 04:12 Baso # 0.0 K/mm3 (0.0-0.1) 12/22/18 04:12 Seg Neutrophils % 61.4 % (40.0-70.0) 12/22/18 04:12 Seg Neutrophils # 1.7 K/mm3 (1.8-7.7) L 12/22/18 04:12 PT 17.0 Sec. (12.2-14.9) H 12/22/18 04:12 INR 1.42 (0.87-1.13) H 12/22/18 04:12 APTT 32.4 Sec. (24.2-36.6) 12/22/18 04:12 1122.85 ng/mlDDU (0-234) H 12/22/18 04:12 Sodium 135 mmol/L (137-145) L 12/23/18 04:14 Potassium 4.6 mmol/L (3.6-5.0) 12/23/18 04:14 Chloride 98.0 mmol/L (98-107) 12/23/18 04:14 Carbon Dioxide 24 mmol/L (22-30) 12/23/18 04:14 18 mmol/L 12/23/18 04:14 BUN 24 mg/dL (9-20) H 12/23/18 04:14 4.7 mg/dL (0.8-1.5) H 12/23/18 04:14 Estimated GFR 15 ml/min 12/23/18 04:14 5 % 12/23/18 04:14 Glucose 98 mg/dL (75-100) 12/23/18 04:14 Calcium 8.9 mg/dL (8.4-10.2) 12/23/18 04:14 113 units/L (55-170) 12/23/18 12:21 CK-MB (CK-2) 3.5 ng/mL (0.0-4.0) 12/23/18 12:21 CK-MB (CK-2) Rel Index 3.0 (0-4) 12/23/18 12:21 0.179 ng/mL (0.00-0.029) H* 12/23/18 12:21 NT-Pro-B Natriuret Pep > 82116 pg/mL (0-900) H 12/22/18 04:12 Triglycerides 53 mg/dL (2-149) 12/22/18 04:12 Cholesterol 87 mg/dL (50-199) 12/22/18 04:12 34 mg/dL (50-130) L 12/22/18 04:12 47 mg/dL (40-59) 12/22/18 04:12 1.85 % 12/22/18 04:12 Active Medications - Current Medications Current Medications: Generic Name Dose Route Start Last Admin Trade Name Freq PRN Reason Stop Dose Admin Al Hydrox/Mg Hydrox/Simethicone 20 ml 12/22/18 10:00 Alum-Mag Hydrox-Simeth 234-086-81un/5ml PO DAILY PRN Dyspepsia Amlodipine Besylate 10 mg 12/22/18 10:00 12/23/18 10:57 Norvasc PO 10 mg DAILY BEAN Administration Apixaban 2.5 mg 12/22/18 10:00 12/23/18 10:55 Eliquis PO 2.5 mg Q12HR BEAN Administration Protocol Atorvastatin Calcium 40 mg 12/22/18 22:00 12/22/18 21:39 Lipitor PO 40 mg QHS BEAN Administration Clonidine HCl 0.1 mg 12/22/18 07:45 12/23/18 14:02 Catapres PO 0.1 mg Q8HR BEAN Administration Clonidine HCl 0.2 mg 12/22/18 07:45 12/23/18 14:02 Catapres PO 0.2 mg Q8HR BEAN Administration Diphenhydramine HCl 25 mg 12/22/18 11:23 12/23/18 12:04 Benadryl IV 25 mg KATERYNA PRN Administration Itching Epoetin Prashant 10,000 unit 12/22/18 07:28 Procrit SUB-Q KATERYNA PRN hemodialysis Famotidine 5 mg 12/22/18 10:00 12/23/18 11:05 Pepcid PO 5 mg BID BEAN Administration Fluoxetine HCl 40 mg 12/22/18 10:00 12/23/18 10:56 Prozac PO 40 mg QDAY BEAN Administration Hydralazine HCl 25 mg 12/22/18 10:00 12/23/18 10:56 Apresoline PO 25 mg BID BEAN Administration Hydralazine HCl 10 mg 12/22/18 07:31 12/23/18 04:55 Apresoline IV 10 mg Q4H PRN Administration Hypertension Sodium Chloride 100 mls @ 999 mls/hr 12/22/18 11:23 Nacl 0.9% IV KATERYNA PRN Hypotension Isosorbide Mononitrate 30 mg 12/22/18 10:00 12/23/18 10:56 Imdur PO 30 mg QDAY BEAN Administration Losartan Potassium 100 mg 12/22/18 10:00 12/23/18 10:55 Cozaar PO 100 mg QDAY BEAN Administration Metoprolol Succinate 100 mg 12/22/18 10:00 12/23/18 10:56 Toprol Xl PO 100 mg QDAY BEAN Administration Multivitamins/Iron 1 each 12/22/18 10:00 12/23/18 10:55 Hemocyte Plus PO 1 each QDAY BEAN Administration Oxycodone/Acetaminophen 1 tab 12/22/18 17:41 12/22/18 17:52 Percocet 5/325 PO 1 tab Q6H PRN Administration Pain, Moderate (4-6) Senna/Docusate Sodium 1 tab 12/22/18 10:00 12/23/18 10:56 Senokot S PO 1 tab BID BEAN Administration Nutrition/Malnutrition Assess - Dietary Evaluation Nutrition/Malnutrition Findings: Nutrition Notes Start: 12/23/18 14:30 Freq: Status: Active Protocol: Document 12/23/18 14:30 RM (Rec: 12/23/18 14:41 RM [id number]) Nutrition Notes Need for Assessment generated from: MD Order Initial or Follow up Assessment Current Diagnosis Coronary Artery Disease, Hypertension,Heart Failure, Respiratory Failure, Hyperlipidemia Other Pertinent Diagnosis ESRD on HD, PTSD Current Diet ONS diet Labs/Tests Reviewed Pertinent Medications Reviewed Height 5 ft 9 in Weight 53.7 kg [place] Body Weight (kg) 72.72 BMI 17.4 Subjective/Other Information Consulted for ONS diet. Pt lethargic from recent HD session at time of visit. Pt stated that [employer] his appetite was fair. Unsure of dry wt. Per nurse pt has been receiving Renal diet and is eating his meals. Stock Dealer informed nurse that Renal diet is not active in computer. Nurse stated she would put in back in. Noted temporal and orbital wasting. Burn Absent Trauma Absent #1 Nutrition Diagnosis Malnutrition Etiology decreased appetite As Evidenced by Signs and Symptoms BMI 17.3, temporal wasting, orbital wasting Is patient on ventilator? No Is Patient Ambulatory and/or Out of Bed No REE-([facility]-confined to bed) 1550.928 Kcal/Kg value to use for calculation 35 Approximate Energy Requirements Using 1880 kcal/Kg Calculation Used for Recommendations Kcal/kg Additional Notes Protein needs: 64-80g (1.2-1. 5g/kg) Fluid Needs: 1 ml/kcal Nutrition Intervention Change Diet Order: Renal diet Add Supplement/Snack (indicate name/kcal Ensure Clear 1 daily (M/W/F/ /protein ) Sun) Provides kCal: 240 Provides Protein (gm) 8 Goal #1 Meet at least 75% of calorie and protein via PO and ONS intakes Goal #2 Wt gain/maintenance Anticipated Discharge Needs: Renal diet Follow-Up By: 12/25/18 Additional Comments Follow for PO and ONS intakes
[2018-12-23] MEDS: BENADRYL PO PRN (22:23)
[2018-12-23] MEDS: PERCOCET 5/325 PO PRN (22:23)
[2018-12-24] MEDS: CATAPRES PO SCH ×6 (05:47→21:39)
[2018-12-24] MEDS: PERCOCET 5/325 PO PRN ×2 (08:21→21:39)
--- NOTE | 2018-12-24 08:46 | Progress Note ---
Assessment and Plan - Patient Problems (1) ESRD needing dialysis Current Visit: Yes Status: Chronic Plan to address problem: Maintain on a Monday inpatient hemodialysis schedule. (2) Pleural effusion Current Visit: Yes Status: Chronic Plan to address problem: Await further recommendations and evaluation from pulmonology. Plan for thor acentesis today. (3) Hypertensive chronic kidney disease with stage 5 chronic kidney disease or end stage renal disease Current Visit: Yes Status: Chronic Plan to address problem: We'll monitor on his current regimen. (4) Type 2 diabetes mellitus with diabetic chronic kidney disease Current Visit: Yes Status: Chronic Qualifiers: Chronic kidney disease stage: on chronic dialysis Plan to address problem: Diabetes management per primary attending. (5) Anemia in CKD (chronic kidney disease) Current Visit: Yes Status: Acute Qualifiers: Chronic kidney disease stage: on chronic dialysis Qualified Code(s): N18.6 - End stage renal disease; D63.1 - Anemia in chronic kidney disease; Z99.2 - Dependence on renal dialysis Plan to address problem: Epogen with hemodialysis. Subjective Date of service: 12/24/18 Interval history: No acute issues overnight. Pending thoracentesis today. Objective - Vital Signs Vital signs: Vital Signs - 12hr 12/23/18 12/23/18 12/23/18 22:10 23:29 23:38 Temperature 97.8 F Pulse Rate 41 L 58 L Respiratory 18 Rate Blood Pressure 125/87 O2 Sat by Pulse 97 100 Oximetry 12/24/18 12/24/18 12/24/18 01:00 04:03 07:52 Temperature 97.7 F 98.6 F Pulse Rate 61 54 L 51 L Respiratory 20 18 Rate Blood Pressure 118/84 140/95 O2 Sat by Pulse 100 100 Oximetry - General Appearance General appearance: well-developed, appears stated age EENT: ATNC, PERRL Neck: no JVD, no thyromegaly Respiratory: Present: Decreased Breath Sounds Cardiology: regular, S1S2 Gastrointestinal: normal, normoactive bowel sounds Integumentary: no rash, warm and dry Neurologic: no focal deficit, alert and oriented x3 Musculoskeletal: other (-edema ) Psychiatric: mood/affect appropriate, cooperative - Lab 12/22/18 04:12 12/23/18 04:14 Most recent lab results Calcium 8.9 mg/dL (8.4-10.2) 12/23/18 04:14 - Allied health notes Allied health notes reviewed: nursing Medications & Allergies - Medications Allergies/Adverse Reactions: Allergies aspirin Allergy (Verified 03/16/17 01:25) Unknown stomach cramps pork derived (porcine) Allergy (Verified 03/16/17 01:27) Rash venom-honey bee [bee venom (honey bee)] Allergy (Verified 03/16/17 01:27) Anaphylaxis Pork/Porcine Containing Products Adverse Reaction (Severe, Verified 02/13/17 09:31) Nausea,VOMITING Home Medications: Home Medications Medication Instructions Recorded Confirmed Last Taken Type Acetaminophen [Acetaminophen TAB] 650 mg PO Q4H PRN tablet 05/05/18 12/24/18 09/21/18 Rx Apixaban [Eliquis] 2.5 mg PO Q12HR #60 tablet 09/05/18 12/24/18 09/21/18 Rx FLUoxetine HCL [Fluoxetine HCl] 40 mg PO QDAY #30 capsule 09/05/18 12/22/18 09/21/18 Rx Famotidine [Pepcid] 10 mg PO BID #15 tablet 09/05/18 12/22/18 09/21/18 Rx Fe Fumarate/FA/Mv, Min Comb#15 1 each PO QDAY #30 capsule 09/05/18 12/24/18 09/21/18 Rx [Hemocyte Plus] ISOSORBIDE MONOnitrate [Imdur ER] 30 mg PO QDAY #30 tablet 09/05/18 12/24/18 09/21/18 Rx Losartan [Cozaar] 100 mg PO QDAY 30 Days tablet 09/05/18 12/22/18 09/21/18 Rx amLODIPine [Norvasc] 10 mg PO DAILY #30 tablet 09/05/18 12/22/18 09/21/18 Rx hydrALAZINE [Apresoline TAB] 50 mg PO BID 11/06/18 12/22/18 Unknown History Mag Hydrox/Aluminum Hyd/Simeth 355 ml PO DAILY PRN 15 Days 11/08/18 12/22/18 Unknown Rx [Maalox Advanced Suspension] oral.susp Apixaban [Eliquis] 2.5 mg PO Q12HR #60 tablet 12/01/18 12/22/18 Unknown Rx AtorvaSTATin [Lipitor] 40 mg PO QHS #30 tablet 12/01/18 12/22/18 Unknown Rx Epoetin Prashant 10,000 Unit [Procrit] 10,000 unit SUB-Q KATERYNA PRN #30 vial 12/01/18 12/24/18 Unknown Rx ISOSORBIDE MONOnitrate [Imdur ER] 30 mg PO DAILY #30 tablet 12/01/18 12/22/18 Unknown Rx Metoprolol Xl [Metoprolol 100 mg PO QDAY #30 tablet 12/01/18 12/24/18 Unknown Rx SUCCINATE ER TAB] Sennosides/Docusate [Senokot S] 1 tab PO BID #20 tablet 12/01/18 12/22/18 Unknown Rx amLODIPine [Norvasc] 10 mg PO DAILY #30 tablet 12/01/18 12/24/18 Unknown Rx levoFLOXacin [Levaquin TAB] 500 mg PO QDAY #7 tablet 12/01/18 12/24/18 Unknown Rx metroNIDAZOLE [Flagyl] 500 mg PO Q8HR #21 tablet 12/01/18 12/24/18 Unknown Rx cloNIDine 0.3 mg PO ONCE 12/22/18 12/24/18 Unknown History Active Medications: Generic Name Dose Route Start Last Admin Trade Name Freq PRN Reason Stop Dose Admin Al Hydrox/Mg Hydrox/Simethicone 20 ml 12/22/18 10:00 Alum-Mag Hydrox-Simeth 969-025-92ck/5ml PO DAILY PRN Dyspepsia Amlodipine Besylate 10 mg 12/22/18 10:00 12/23/18 10:57 Norvasc PO 10 mg DAILY BEAN Administration Apixaban 2.5 mg 12/22/18 10:00 12/23/18 22:24 Eliquis PO 2.5 mg Q12HR BEAN Administration Protocol Atorvastatin Calcium 40 mg 12/22/18 22:00 12/23/18 22:23 Lipitor PO 40 mg QHS BEAN Administration Clonidine HCl 0.1 mg 12/22/18 07:45 12/24/18 05:47 Catapres PO 0.1 mg Q8HR BEAN Administration Clonidine HCl 0.2 mg 12/22/18 07:45 12/24/18 05:47 Catapres PO 0.2 mg Q8HR BEAN Administration Diphenhydramine HCl 25 mg 12/22/18 11:23 12/23/18 12:04 Benadryl IV 25 mg KATERYNA PRN Administration Itching Diphenhydramine HCl 25 mg 12/23/18 20:22 12/23/18 22:23 Benadryl PO 25 mg Q6H PRN Administration Itching Epoetin Prashant 10,000 unit 12/22/18 07:28 Procrit SUB-Q KATERYNA PRN hemodialysis Famotidine 5 mg 12/22/18 10:00 12/23/18 22:21 Pepcid PO 5 mg BID BEAN Administration Fluoxetine HCl 40 mg 12/22/18 10:00 12/23/18 10:56 Prozac PO 40 mg QDAY BEAN Administration Hydralazine HCl 25 mg 12/22/18 10:00 12/23/18 22:22 Apresoline PO 25 mg BID BEAN Administration Hydralazine HCl 10 mg 12/22/18 07:31 12/23/18 04:55 Apresoline IV 10 mg Q4H PRN Administration Hypertension Sodium Chloride 100 mls @ 999 mls/hr 12/22/18 11:23 Nacl 0.9% IV KATERYNA PRN Hypotension Isosorbide Mononitrate 30 mg 12/22/18 10:00 12/23/18 10:56 Imdur PO 30 mg QDAY BEAN Administration Losartan Potassium 100 mg 12/22/18 10:00 12/23/18 10:55 Cozaar PO 100 mg QDAY BEAN Administration Metoprolol Succinate 100 mg 12/22/18 10:00 12/23/18 10:56 Toprol Xl PO 100 mg QDAY BEAN Administration Multivitamins/Iron 1 each 12/22/18 10:00 12/23/18 10:55 Hemocyte Plus PO 1 each QDAY BEAN Administration Oxycodone/Acetaminophen 1 tab 12/22/18 17:41 12/24/18 08:21 Percocet 5/325 PO 1 tab Q6H PRN Administration Pain, Moderate (4-6) Senna/Docusate Sodium 1 tab 12/22/18 10:00 12/23/18 22:23 Senokot S PO 1 tab BID BEAN Administration
--- NOTE | 2018-12-24 09:22 | Progress Note ---
Assessment and Plan Recurrent Left pleural effusion Chronic systolic heart failure Chronic and constant atypical chest pain DM type II PVD s/p left arm amputation Hypertension ESRD on hemodialysis Thrombocytopenia, chronic Hx of Nonischemic CMP EF 10-15% by echo 08/2018 Non-obstructive CAD [facility] 01/2017 revealed non-obstructive, single vessel disease of the proximal LAD recommended for medical therapy. normal perfusion MPI at [facility] 10/03/18. Permanent Atrial fibrillation rate controlled with metoprolol on low dose eliquis as an outpatient Recommendations: Dialysis for fluid management. Continue medical therapy for nonischemic cardiomyopathy and chronic systolic heart failure. Otherwise, conservative cardiac management. Subjective Date of service: 12/24/18 Interval history: Patient is resting in bed comfortably. No distress noted. Afib with a well controlled ventricular rate on telemetry. Objective Vital Signs Temp Pulse Resp BP Pulse Ox 12/24/18 07:52 98.6 F 51 L 18 140/95 100 12/24/18 04:03 97.7 F 54 L 20 118/84 100 12/24/18 01:00 61 12/23/18 23:38 58 L 12/23/18 23:29 97.8 F 41 L 18 125/87 100 12/23/18 22:10 97 12/23/18 19:32 97.4 F L 57 L 20 125/90 100 12/23/18 16:11 98.4 F 18 148/111 12/23/18 15:42 98 12/23/18 14:02 62 118/80 12/23/18 14:00 97.4 F L 60 18 118/80 97 12/23/18 12:08 98.4 F 18 157/105 12/23/18 12:00 81 12/23/18 10:57 170/101 12/23/18 10:56 171/101 12/23/18 10:55 170/101 - Physical Examination General: No Apparent Distress HEENT: Positive: PERRL Neck: Positive: trachea midline Cardiac: Positive: irregularly irregular Lungs: Positive: Decreased Breath Sounds Neuro: Positive: Grossly Intact, Weakness Extremities: Absent: edema - Labs and Meds Cardiac Enzymes 12/23/18 Range/Units 12:21 CK-MB (CK-2) 3.5 (0.0-4.0) ng/mL - Allied health notes Allied health notes reviewed: nursing
[2018-12-24] MEDS: IMDUR PO SCH (10:35)
[2018-12-24] MEDS: APRESOLINE PO SCH ×2 (10:36→21:39)
[2018-12-24] MEDS: TOPROL XL PO SCH (10:36)
[2018-12-24] MEDS: PROzac PO SCH (10:37)
[2018-12-24] MEDS: SENOKOT S PO SCH ×2 (10:37→21:38)
[2018-12-24] MEDS: ELIQUIS PO SCH (10:37)
[2018-12-24] MEDS: PEPCID PO SCH ×2 (10:38→21:38)
[2018-12-24] MEDS: COZAAR PO SCH (10:38)
[2018-12-24] MEDS: HEMOCYTE PLUS PO SCH (10:39)
[2018-12-24] MEDS: NORVASC PO SCH (10:39)
--- NOTE | 2018-12-24 10:39 | Progress Note ---
Assessment and Plan Assessment and plan: --Large left pleural effusion;Thoracentesis this morning Hemodialysis, supportive care, fluid analysis Pulmonary evaluation note --Acute respiratory failure secondary to fluid overload as well as left pleural effusion Oxygen titrated to O2 sats more than 90%, nebulizers as needed Due to underlying cause, hemodialysis per schedule --Acute on chronic systolic CHF; ejection fraction 10-15%, HD per schedule,anti-failure medications. --End-stage renal disease on hemodialysis; Nephrology consult, hemodialysis per schedule --Elevated d-dimer; VQ scan low probability for PE in September 2018 CT of chest prior to hemodialysisTo rule out PE, patient is already on Eliquis for afib Lower extremity venous Doppler to rule out DVT --Chronic elevation of troponins; nonspecific Patient had extensive cardiac evaluation during previous admissions Cardiology consult --History of A. fib ; rate controlled Continue beta blockers, chronic anticoagulation with Eliquis --History of coronary artery disease; continue current cardiac medications --History of PTSD; resume medications Psych evaluation if needed --DVT Prophylaxis: patient on Eliquis --Full code Monitor closely and adjust management as needed Plan of care is reviewed with the patient and his nurse Disposition: f/u thoracentesis/fluid analysis History Interval history: Patient seen and examined medical records reviewed Thoracentesis rescheduled for morning Patient comfortable,no new complaintsVitals reviewed Hospitalist Physical - Constitutional Vitals: Temp Pulse Resp BP Pulse Ox 98.6 F 54 L 18 137/94 100 12/24/18 07:52 12/24/18 10:38 12/24/18 07:52 12/24/18 10:38 12/24/18 07:52 General appearance: Present: no acute distress, well-nourished - EENT Eyes: Present: PERRL, EOM intact - Neck Neck: Present: supple, normal ROM - Respiratory Respiratory effort: normal Respiratory: bilateral: diminished, rales, rhonchi, negative: wheezing - Cardiovascular Rhythm: regular Heart Sounds: Present: S1 & S2 - Extremities Extremities: no ischemia Extremity abnormal: edema - Abdominal General gastrointestinal: soft, non-tender, non-distended, normal bowel sounds - Integumentary Integumentary: Present: clear, warm - Psychiatric Psychiatric: appropriate mood/affect, cooperative - Neurologic Neurologic: CNII-XII intact Results - Labs CBC & Chem 7: 12/22/18 04:12 12/23/18 04:14 Labs: Laboratory Last Values WBC 2.8 K/mm3 (4.5-11.0) L 12/22/18 04:12 RBC 2.92 M/mm3 (3.65-5.03) L 12/22/18 04:12 Hgb 9.6 gm/dl (11.8-15.2) L 12/22/18 04:12 Hct 29.6 % (35.5-45.6) L 12/22/18 04:12 MCV 101 fl (84-94) H 12/22/18 04:12 MCH 33 pg (28-32) H 12/22/18 04:12 MCHC 32 % (32-34) 12/22/18 04:12 RDW 16.9 % (13.2-15.2) H 12/22/18 04:12 Plt Count 120 K/mm3 (140-440) L 12/22/18 04:12 Lymph % (Auto) 23.5 % (13.4-35.0) 12/22/18 04:12 [place] % (Auto) 10.5 % (0.0-7.3) H 12/22/18 04:12 Eos % (Auto) 3.8 % (0.0-4.3) 12/22/18 04:12 Baso % (Auto) 0.8 % (0.0-1.8) 12/22/18 04:12 Lymph # 0.7 K/mm3 (1.2-5.4) L 12/22/18 04:12 [place] # 0.3 K/mm3 (0.0-0.8) 12/22/18 04:12 Eos # 0.1 K/mm3 (0.0-0.4) 12/22/18 04:12 Baso # 0.0 K/mm3 (0.0-0.1) 12/22/18 04:12 Seg Neutrophils % 61.4 % (40.0-70.0) 12/22/18 04:12 Seg Neutrophils # 1.7 K/mm3 (1.8-7.7) L 12/22/18 04:12 PT 17.0 Sec. (12.2-14.9) H 12/22/18 04:12 INR 1.42 (0.87-1.13) H 12/22/18 04:12 APTT 32.4 Sec. (24.2-36.6) 12/22/18 04:12 1122.85 ng/mlDDU (0-234) H 12/22/18 04:12 Sodium 135 mmol/L (137-145) L 12/23/18 04:14 Potassium 4.6 mmol/L (3.6-5.0) 12/23/18 04:14 Chloride 98.0 mmol/L (98-107) 12/23/18 04:14 Carbon Dioxide 24 mmol/L (22-30) 12/23/18 04:14 18 mmol/L 12/23/18 04:14 BUN 24 mg/dL (9-20) H 12/23/18 04:14 4.7 mg/dL (0.8-1.5) H 12/23/18 04:14 Estimated GFR 15 ml/min 12/23/18 04:14 5 % 12/23/18 04:14 Glucose 98 mg/dL (75-100) 12/23/18 04:14 Calcium 8.9 mg/dL (8.4-10.2) 12/23/18 04:14 113 units/L (55-170) 12/23/18 12:21 CK-MB (CK-2) 3.5 ng/mL (0.0-4.0) 12/23/18 12:21 CK-MB (CK-2) Rel Index 3.0 (0-4) 12/23/18 12:21 0.179 ng/mL (0.00-0.029) H* 12/23/18 12:21 NT-Pro-B Natriuret Pep > 78156 pg/mL (0-900) H 12/22/18 04:12 Triglycerides 53 mg/dL (2-149) 12/22/18 04:12 Cholesterol 87 mg/dL (50-199) 12/22/18 04:12 34 mg/dL (50-130) L 12/22/18 04:12 47 mg/dL (40-59) 12/22/18 04:12 1.85 % 12/22/18 04:12 Active Medications - Current Medications Current Medications: Generic Name Dose Route Start Last Admin Trade Name Freq PRN Reason Stop Dose Admin Al Hydrox/Mg Hydrox/Simethicone 20 ml 12/22/18 10:00 Alum-Mag Hydrox-Simeth 018-702-18vx/5ml PO DAILY PRN Dyspepsia Amlodipine Besylate 10 mg 12/22/18 10:00 12/23/18 10:57 Norvasc PO 10 mg DAILY BEAN Administration Apixaban 2.5 mg 12/22/18 10:00 12/24/18 10:37 Eliquis PO 2.5 mg Q12HR BEAN Administration Protocol Atorvastatin Calcium 40 mg 12/22/18 22:00 12/23/18 22:23 Lipitor PO 40 mg QHS BEAN Administration Clonidine HCl 0.1 mg 12/22/18 07:45 12/24/18 05:47 Catapres PO 0.1 mg Q8HR BENA Administration Clonidine HCl 0.2 mg 12/22/18 07:45 12/24/18 05:47 Catapres PO 0.2 mg Q8HR BEAN Administration Diphenhydramine HCl 25 mg 12/22/18 11:23 12/23/18 12:04 Benadryl IV 25 mg KATERYNA PRN Administration Itching Diphenhydramine HCl 25 mg 12/23/18 20:22 12/23/18 22:23 Benadryl PO 25 mg Q6H PRN Administration Itching Epoetin Prashant 10,000 unit 12/22/18 07:28 Procrit SUB-Q KATERYNA PRN hemodialysis Famotidine 5 mg 12/22/18 10:00 12/24/18 10:38 Pepcid PO 5 mg BID BEAN Administration Fluoxetine HCl 40 mg 12/22/18 10:00 12/24/18 10:37 Prozac PO 40 mg QDAY BEAN Administration Hydralazine HCl 25 mg 12/22/18 10:00 12/24/18 10:36 Apresoline PO 25 mg BID BEAN Administration Hydralazine HCl 10 mg 12/22/18 07:31 12/23/18 04:55 Apresoline IV 10 mg Q4H PRN Administration Hypertension Sodium Chloride 100 mls @ 999 mls/hr 12/22/18 11:23 Nacl 0.9% IV KATERYNA PRN Hypotension Isosorbide Mononitrate 30 mg 12/22/18 10:00 12/24/18 10:35 Imdur PO 30 mg QDAY BEAN Administration Losartan Potassium 100 mg 12/22/18 10:00 12/24/18 10:38 Cozaar PO 100 mg QDAY BEAN Administration Metoprolol Succinate 100 mg 12/22/18 10:00 12/24/18 10:36 Toprol Xl PO Not Given QDAY BEAN Multivitamins/Iron 1 each 12/22/18 10:00 12/23/18 10:55 Hemocyte Plus PO 1 each QDAY BEAN Administration Oxycodone/Acetaminophen 1 tab 12/22/18 17:41 12/24/18 08:21 Percocet 5/325 PO 1 tab Q6H PRN Administration Pain, Moderate (4-6) Senna/Docusate Sodium 1 tab 12/22/18 10:00 12/24/18 10:37 Senokot S PO 1 tab BID BEAN Administration Nutrition/Malnutrition Assess - Dietary Evaluation Nutrition/Malnutrition Findings: Nutrition Notes Start: 12/23/18 14:30 Freq: Status: Active Protocol: Document 12/23/18 14:30 RM (Rec: 12/23/18 14:41 RM [id number]) Nutrition Notes Need for Assessment generated from: MD Order Initial or Follow up Assessment Current Diagnosis Coronary Artery Disease, Hypertension,Heart Failure, Respiratory Failure, Hyperlipidemia Other Pertinent Diagnosis ESRD on HD, PTSD Current Diet ONS diet Labs/Tests Reviewed Pertinent Medications Reviewed Height 5 ft 9 in Weight 53.7 kg [place] Body Weight (kg) 72.72 BMI 17.4 Subjective/Other Information Consulted for ONS diet. Pt lethargic from recent HD session at time of visit. 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 Unsure of dry wt. Per nurse pt has been receiving Renal diet and is eating his meals. Refining Equipment Operator informed nurse that Renal diet is not active in computer. Nurse stated she would put in back in. Noted temporal and orbital wasting. Burn Absent Trauma Absent #1 Nutrition Diagnosis Malnutrition Etiology decreased appetite As Evidenced by Signs and Symptoms BMI 17.3, temporal wasting, orbital wasting Is patient on ventilator? No Is Patient Ambulatory and/or Out of Bed No REE-([facility]-confined to bed) 1550.928 Kcal/Kg value to use for calculation 35 Approximate Energy Requirements Using 1880 kcal/Kg Calculation Used for Recommendations Kcal/kg Additional Notes Protein needs: 64-80g (1.2-1. 5g/kg) Fluid Needs: 1 ml/kcal Nutrition Intervention Change Diet Order: Renal diet Add Supplement/Snack (indicate name/kcal Ensure Clear 1 daily (M/W/F/ /protein ) Sun) Provides kCal: 240 Provides Protein (gm) 8 Goal #1 Meet at least 75% of calorie and protein via PO and ONS intakes Goal #2 Wt gain/maintenance Anticipated Discharge Needs: Renal diet Follow-Up By: 12/25/18 Additional Comments Follow for PO and ONS intakes
[2018-12-24] MEDS ORDERED: BENADRYL IV ONE (12:30)
--- NOTE | 2018-12-24 17:54 | Progress Note ---
Assessment and Plan Imp: 1. L pleural effusion, transudative previously 2. NICMP 3. Chronic systolic CHF 4. ESRD 5. Pleurisy 6. Pancytopenia Rec: 1. Await CTA chest and US guided L thoracentesis (fluid studies ordered) 2. Consider hematology eval. for pancytopenia Plan of care reviewed w/ patient, he understands/agrees Subjective Date of service: 12/24/18 Principal diagnosis: L Pleural effusion Interval history: No events. On RA. Awake, alert. SOB still above baseline and ongoing L sided pleuritic chest pain. No other complaints. Active Medications Al Hydrox/Mg Hydrox/Simethicone (Alum-Mag Hydrox-Simeth [id number]/5ml) 20 ml PO DAILY PRN PRN Reason: Dyspepsia Amlodipine Besylate (Norvasc) 10 mg PO DAILY [facility] Last Admin: 12/24/18 10:39 Dose: 10 mg Documented by: Atorvastatin Calcium (Lipitor) 40 mg PO QHS [facility] Last Admin: 12/23/18 22:23 Dose: 40 mg Documented by: Clonidine HCl (Catapres) 0.1 mg PO Q8HR [facility] Last Admin: 12/24/18 14:15 Dose: 0.1 mg Documented by: Clonidine HCl (Catapres) 0.2 mg PO Q8HR [facility] Last Admin: 12/24/18 14:15 Dose: 0.2 mg Documented by: Diphenhydramine HCl (Benadryl) 25 mg IV KATERYNA PRN PRN Reason: Itching Last Admin: 12/23/18 12:04 Dose: 25 mg Documented by: Diphenhydramine HCl (Benadryl) 25 mg PO Q6H PRN PRN Reason: Itching Last Admin: 12/23/18 22:23 Dose: 25 mg Documented by: Epoetin Prashant (Procrit) 10,000 unit SUB-Q KATERYNA PRN PRN Reason: hemodialysis Famotidine (Pepcid) 5 mg PO BID [facility] Last Admin: 12/24/18 10:38 Dose: 5 mg Documented by: Fluoxetine HCl (Prozac) 40 mg PO QDAY [facility] Last Admin: 12/24/18 10:37 Dose: 40 mg Documented by: Hydralazine HCl (Apresoline) 25 mg PO BID [facility] Last Admin: 12/24/18 10:36 Dose: 25 mg Documented by: Hydralazine HCl (Apresoline) 10 mg IV Q4H PRN PRN Reason: Hypertension Last Admin: 12/23/18 04:55 Dose: 10 mg Documented by: Sodium Chloride (Nacl 0.9%) 100 mls @ 999 mls/hr IV KATERYNA PRN PRN Reason: Hypotension Isosorbide Mononitrate (Imdur) 30 mg PO QDAY [facility] Last Admin: 12/24/18 10:35 Dose: 30 mg Documented by: Losartan Potassium (Cozaar) 100 mg PO QDAY [facility] Last Admin: 12/24/18 10:38 Dose: 100 mg Documented by: Metoprolol Succinate (Toprol Xl) 100 mg PO QDAY [facility] Last Admin: 12/24/18 10:36 Dose: Not Given Documented by: Multivitamins/Iron (Hemocyte Plus) 1 each PO QDAY [facility] Last Admin: 12/24/18 10:39 Dose: 1 each Documented by: Oxycodone/Acetaminophen (Percocet 5/325) 1 tab PO Q6H PRN PRN Reason: Pain, Moderate (4-6) Last Admin: 12/24/18 08:21 Dose: 1 tab Documented by: Senna/Docusate Sodium (Senokot S) 1 tab PO BID [facility] Last Admin: 12/24/18 10:37 Dose: 1 tab Documented by: Objective Vital Signs - 12hr 12/24/18 12/24/18 12/24/18 07:52 09:00 10:33 Temperature 98.6 F Pulse Rate 51 L 54 L Pulse Rate [ 94 H Apical] Pulse Rate [ 94 H Left Radial] Pulse Rate [ 94 H Right Radial] Respiratory 18 19 Rate Blood Pressure 140/95 137/94 Blood Pressure [Right] O2 Sat by Pulse 100 98 100 Oximetry 12/24/18 12/24/18 12/24/18 10:35 10:36 10:38 Temperature Pulse Rate 54 L 54 L 54 L Pulse Rate [ Apical] Pulse Rate [ Left Radial] Pulse Rate [ Right Radial] Respiratory Rate Blood Pressure 137/94 137/94 137/94 Blood Pressure [Right] O2 Sat by Pulse Oximetry 12/24/18 12/24/18 12/24/18 10:39 12:00 12:54 Temperature 98.1 F Pulse Rate 54 L 61 58 L Pulse Rate [ Apical] Pulse Rate [ Left Radial] Pulse Rate [ Right Radial] Respiratory 18 Rate Blood Pressure 137/94 Blood Pressure 136/96 [Right] O2 Sat by Pulse Oximetry 12/24/18 12/24/18 12/24/18 13:36 13:51 14:15 Temperature Pulse Rate 61 45 L 61 Pulse Rate [ Apical] Pulse Rate [ Left Radial] Pulse Rate [ Right Radial] Respiratory Rate Blood Pressure 136/96 120/61 137/93 Blood Pressure [Right] O2 Sat by Pulse 98 100 Oximetry 12/24/18 12/24/18 12/24/18 14:49 15:46 16:12 Temperature 97.9 F Pulse Rate 58 L 65 Pulse Rate [ Apical] Pulse Rate [ Left Radial] Pulse Rate [ Right Radial] Respiratory 18 Rate Blood Pressure 130/91 Blood Pressure [Right] O2 Sat by Pulse 96 98 Oximetry 12/24/18 17:00 Temperature Pulse Rate 63 Pulse Rate [ Apical] Pulse Rate [ Left Radial] Pulse Rate [ Right Radial] Respiratory Rate Blood Pressure Blood Pressure [Right] O2 Sat by Pulse Oximetry Constitutional: no acute distress, alert Eyes: non-icteric ENT: oropharynx moist Neck: supple Effort: normal Ascultation: Left: diminished breath sounds (hemithorax) Cardiovascular: irregular rhythm (ir/ir, no mrg) Gastrointestinal: normoactive bowel sounds, soft, non-tender, non-distended Integumentary: normal Extremities: no cyanosis, no edema, pink and warm Neurologic: normal mental status, non-focal exam, pupils equal and round, CN II- XII normal Psychiatric: mood appropriate, affect normal CBC and BMP: 12/22/18 04:12 12/23/18 04:14 ABG, PT/INR, D-dimer: PT/INR, D-dimer PT 17.0 Sec. (12.2-14.9) H 12/22/18 04:12 INR 1.42 (0.87-1.13) H 12/22/18 04:12 1122.85 ng/mlDDU (0-234) H 12/22/18 04:12 Abnormal lab findings: Abnormal Labs 12/22/18 12/22/18 12/22/18 04:12 04:12 04:12 WBC 2.8 L RBC 2.92 L Hgb 9.6 L Hct 29.6 L MCV 101 H MCH 33 H RDW 16.9 H Plt Count 120 L [place] % (Auto) 10.5 H Lymph # 0.7 L Seg Neutrophils # 1.7 L PT 17.0 H INR 1.42 H D-Dimer 1122.85 H Sodium BUN 42 H Creatinine 7.6 H Glucose 118 H Total Creatine Kinase CK-MB (CK-2) Rel Index Troponin T 0.147 H* NT-Pro-B Natriuret Pep > 16701 H LDL Cholesterol Direct 34 L 12/22/18 12/23/18 12/23/18 06:37 04:14 04:14 WBC RBC Hgb Hct MCV MCH RDW Plt Count [place] % (Auto) Lymph # Seg Neutrophils # PT INR D-Dimer Sodium 135 L BUN 24 H Creatinine 4.7 H Glucose Total Creatine Kinase 46 L CK-MB (CK-2) Rel Index 5.8 H Troponin T 0.144 H* 0.177 H* D NT-Pro-B Natriuret Pep LDL Cholesterol Direct 12/23/18 12:21 WBC RBC Hgb Hct MCV MCH RDW Plt Count [place] % (Auto) Lymph # Seg Neutrophils # PT INR D-Dimer Sodium BUN Creatinine Glucose Total Creatine Kinase CK-MB (CK-2) Rel Index Troponin T 0.179 H* NT-Pro-B Natriuret Pep LDL Cholesterol Direct Chest x-ray: report reviewed, image reviewed (large L effusion) Allied health notes reviewed: nursing
[2018-12-24] MEDS: BENADRYL PO PRN (21:38)
[2018-12-25] MEDS: MORPHINE IV PRN ×3 (02:56→18:51)
[2018-12-25] MEDS: CATAPRES PO SCH ×6 (05:22→21:23)
[2018-12-25 06:54] LABS: Basophils % (Auto) 0.8 % (0.0-1.8); Eosinophils # (Auto) 0.1 K/mm3 (0.0-0.4); Eosinophils % (Auto) 3.8 % (0.0-4.3); Hematocrit 31.6 % (35.5-45.6); Hemoglobin 10.4 gm/dl (11.8-15.2); Lymphocytes # (Auto) 0.9 K/mm3 (1.2-5.4); Lymphocytes % (Auto) 28.4 % (13.4-35.0); Mean Corpuscular HGB Conc 33 % (32-34); Mean Corpuscular Volume 99 fl (84-94); Monocytes # (Auto) 0.3 K/mm3 (0.0-0.8); Monocytes % (Auto) 7.8 % (0.0-7.3); Platelet Count 119 K/mm3 (140-440); Red Blood Count 3.19 M/mm3 (3.65-5.03); Red Cell Distribution Width 17.4 % (13.2-15.2)
[2018-12-25 07:38] LABS: Calcium 8.7 mg/dL (8.4-10.2)
--- NOTE | 2018-12-25 08:21 | Progress Note ---
Assessment and Plan - Patient Problems (1) ESRD needing dialysis Current Visit: Yes Status: Chronic Plan to address problem: Maintain on a Monday inpatient hemodialysis schedule. (2) Pleural effusion Current Visit: Yes Status: Chronic Plan to address problem: Await further recommendations and evaluation from pulmonology. Plan for thor acentesis/CT angio today. (3) Hypertensive chronic kidney disease with stage 5 chronic kidney disease or end stage renal disease Current Visit: Yes Status: Chronic Plan to address problem: We'll monitor on his current regimen. (4) Type 2 diabetes mellitus with diabetic chronic kidney disease Current Visit: Yes Status: Chronic Qualifiers: Chronic kidney disease stage: on chronic dialysis Plan to address problem: Diabetes management per primary attending. (5) Anemia in CKD (chronic kidney disease) Current Visit: Yes Status: Acute Qualifiers: Chronic kidney disease stage: on chronic dialysis Qualified Code(s): N18.6 - End stage renal disease; D63.1 - Anemia in chronic kidney disease; Z99.2 - Dependence on renal dialysis Plan to address problem: Epogen with hemodialysis. Subjective Date of service: 12/25/18 Principal diagnosis: L Pleural effusion Interval history: No acute issues overnight. Plan for CT angiogram as well as thoracentesis today. Plan for hemodialysis today as well. Objective - Vital Signs Vital signs: Vital Signs - 12hr 12/24/18 12/25/18 12/25/18 21:00 00:00 03:42 Temperature 98.2 F 99.2 F Pulse Rate 58 L 62 Respiratory 20 20 19 Rate Blood Pressure 110/85 142/100 O2 Sat by Pulse 97 99 Oximetry 12/25/18 04:06 Temperature Pulse Rate 63 Respiratory Rate Blood Pressure O2 Sat by Pulse Oximetry - General Appearance General appearance: well-developed, appears stated age EENT: ATNC, PERRL Neck: no JVD Respiratory: Present: Decreased Breath Sounds Cardiology: regular, S1S2 Gastrointestinal: normal, normoactive bowel sounds Integumentary: no rash, warm and dry Neurologic: no focal deficit, alert and oriented x3 Musculoskeletal: other (-edema ) Psychiatric: mood/affect appropriate, cooperative - Lab 12/25/18 05:49 12/25/18 05:49 Most recent lab results Calcium 8.7 mg/dL (8.4-10.2) 12/25/18 05:49 Magnesium 1.90 mg/dL (1.7-2.3) 12/25/18 05:49 - Allied health notes Allied health notes reviewed: nursing Medications & Allergies - Medications Allergies/Adverse Reactions: Allergies aspirin Allergy (Verified 03/16/17 01:25) Unknown stomach cramps pork derived (porcine) Allergy (Verified 03/16/17 01:27) Rash venom-honey bee [bee venom (honey bee)] Allergy (Verified 03/16/17 01:27) Anaphylaxis Pork/Porcine Containing Products Adverse Reaction (Severe, Verified 02/13/17 09:31) Nausea,VOMITING Home Medications: Home Medications Medication Instructions Recorded Confirmed Last Taken Type Acetaminophen [Acetaminophen TAB] 650 mg PO Q4H PRN tablet 05/05/18 12/24/18 09/21/18 Rx Apixaban [Eliquis] 2.5 mg PO Q12HR #60 tablet 09/05/18 12/24/18 09/21/18 Rx FLUoxetine HCL [Fluoxetine HCl] 40 mg PO QDAY #30 capsule 09/05/18 12/22/18 09/21/18 Rx Famotidine [Pepcid] 10 mg PO BID #15 tablet 09/05/18 12/22/18 09/21/18 Rx Fe Fumarate/FA/Mv, Min Comb#15 1 each PO QDAY #30 capsule 09/05/18 12/24/18 09/21/18 Rx [Hemocyte Plus] ISOSORBIDE MONOnitrate [Imdur ER] 30 mg PO QDAY #30 tablet 09/05/18 12/24/18 09/21/18 Rx Losartan [Cozaar] 100 mg PO QDAY 30 Days tablet 09/05/18 12/22/18 09/21/18 Rx amLODIPine [Norvasc] 10 mg PO DAILY #30 tablet 09/05/18 12/22/18 09/21/18 Rx hydrALAZINE [Apresoline TAB] 50 mg PO BID 11/06/18 12/22/18 Unknown History Mag Hydrox/Aluminum Hyd/Simeth 355 ml PO DAILY PRN 15 Days 11/08/18 12/22/18 Unknown Rx [Maalox Advanced Suspension] oral.susp Apixaban [Eliquis] 2.5 mg PO Q12HR #60 tablet 12/01/18 12/22/18 Unknown Rx AtorvaSTATin [Lipitor] 40 mg PO QHS #30 tablet 12/01/18 12/22/18 Unknown Rx Epoetin Prashant 10,000 Unit [Procrit] 10,000 unit SUB-Q KATERYNA PRN #30 vial 12/01/18 12/24/18 Unknown Rx ISOSORBIDE MONOnitrate [Imdur ER] 30 mg PO DAILY #30 tablet 12/01/18 12/22/18 Unknown Rx Metoprolol Xl [Metoprolol 100 mg PO QDAY #30 tablet 12/01/18 12/24/18 Unknown Rx SUCCINATE ER TAB] Sennosides/Docusate [Senokot S] 1 tab PO BID #20 tablet 12/01/18 12/22/18 Unknown Rx amLODIPine [Norvasc] 10 mg PO DAILY #30 tablet 12/01/18 12/24/18 Unknown Rx levoFLOXacin [Levaquin TAB] 500 mg PO QDAY #7 tablet 12/01/18 12/24/18 Unknown Rx metroNIDAZOLE [Flagyl] 500 mg PO Q8HR #21 tablet 12/01/18 12/24/18 Unknown Rx cloNIDine 0.3 mg PO ONCE 12/22/18 12/24/18 Unknown History Active Medications: Generic Name Dose Route Start Last Admin Trade Name Freq PRN Reason Stop Dose Admin Al Hydrox/Mg Hydrox/Simethicone 20 ml 12/22/18 10:00 Alum-Mag Hydrox-Simeth [id number]/5ml PO DAILY PRN Dyspepsia Amlodipine Besylate 10 mg 12/22/18 10:00 12/24/18 10:39 Norvasc PO 10 mg DAILY BEAN Administration Atorvastatin Calcium 40 mg 12/22/18 22:00 12/24/18 21:39 Lipitor PO 40 mg QHS BEAN Administration Clonidine HCl 0.1 mg 12/22/18 07:45 12/25/18 05:22 Catapres PO 0.1 mg Q8HR BEAN Administration Clonidine HCl 0.2 mg 12/22/18 07:45 12/25/18 05:22 Catapres PO 0.2 mg Q8HR BEAN Administration Diphenhydramine HCl 25 mg 12/22/18 11:23 12/23/18 12:04 Benadryl IV 25 mg KATERYNA PRN Administration Itching Diphenhydramine HCl 25 mg 12/23/18 20:22 12/24/18 21:38 Benadryl PO 25 mg Q6H PRN Administration Itching Epoetin Prashant 10,000 unit 12/22/18 07:28 Procrit SUB-Q KATERYNA PRN hemodialysis Famotidine 5 mg 12/22/18 10:00 12/24/18 21:38 Pepcid PO 5 mg BID BEAN Administration Fluoxetine HCl 40 mg 12/22/18 10:00 12/24/18 10:37 Prozac PO 40 mg QDAY BEAN Administration Hydralazine HCl 25 mg 12/22/18 10:00 12/24/18 21:39 Apresoline PO 25 mg BID BEAN Administration Hydralazine HCl 10 mg 12/22/18 07:31 12/23/18 04:55 Apresoline IV 10 mg Q4H PRN Administration Hypertension Sodium Chloride 100 mls @ 999 mls/hr 12/22/18 11:23 Nacl 0.9% IV KATERYNA PRN Hypotension Isosorbide Mononitrate 30 mg 12/22/18 10:00 12/24/18 10:35 Imdur PO 30 mg QDAY BEAN Administration Losartan Potassium 100 mg 12/22/18 10:00 12/24/18 10:38 Cozaar PO 100 mg QDAY BEAN Administration Metoprolol Succinate 100 mg 12/22/18 10:00 12/24/18 10:36 Toprol Xl PO Not Given QDAY BEAN Morphine Sulfate 2 mg 12/25/18 02:36 12/25/18 02:56 Morphine IV 2 mg Q6H PRN Administration Pain , Severe (7-10) Multivitamins/Iron 1 each 12/22/18 10:00 12/24/18 10:39 Hemocyte Plus PO 1 each QDAY BEAN Administration Oxycodone/Acetaminophen 1 tab 12/22/18 17:41 12/24/18 21:39 Percocet 5/325 PO 1 tab Q6H PRN Administration Pain, Moderate (4-6) Senna/Docusate Sodium 1 tab 12/22/18 10:00 12/24/18 21:38 Senokot S PO 1 tab BID BEAN Administration
--- NOTE | 2018-12-25 08:35 | Progress Note ---
Assessment and Plan Recurrent Left pleural effusion Chronic systolic heart failure Chronic and constant atypical chest pain DM type II PVD s/p left arm amputation Hypertension ESRD on hemodialysis Thrombocytopenia, chronic Hx of Nonischemic CMP EF 10-15% by echo 08/2018 Non-obstructive CAD [facility] 01/2017 revealed non-obstructive, single vessel disease of the proximal LAD recommended for medical therapy. normal perfusion MPI at [facility] 10/03/18. Permanent Atrial fibrillation rate controlled with metoprolol on low dose eliquis as an outpatient Recommendations: Dialysis for fluid management. Continue medical therapy for nonischemic cardiomyopathy and chronic systolic heart failure. Otherwise, conservative cardiac management. Subjective Date of service: 12/25/18 Principal diagnosis: L Pleural effusion Interval history: Patient is resting in bed comfortably. No distress noted. Afib with a well controlled ventricular rate on telemetry. Objective Vital Signs Temp Pulse Pulse Pulse Pulse Resp BP 12/25/18 04:06 63 12/25/18 03:42 99.2 F 62 19 142/100 12/25/18 00:00 98.2 F 58 L 20 110/85 12/24/18 21:00 20 12/24/18 20:02 98.4 F 63 18 125/88 12/24/18 19:16 12/24/18 17:00 63 12/24/18 16:12 97.9 F 65 18 130/91 12/24/18 15:46 58 L 12/24/18 14:49 12/24/18 14:15 61 137/93 12/24/18 13:51 45 L 120/61 12/24/18 13:36 61 136/96 12/24/18 12:54 58 L 12/24/18 12:00 98.1 F 61 18 12/24/18 10:39 54 L 137/94 12/24/18 10:38 54 L 137/94 12/24/18 10:36 54 L 137/94 12/24/18 10:35 54 L 137/94 12/24/18 10:33 54 L 137/94 12/24/18 09:00 94 H 94 H 94 H 19 BP Pulse Ox 12/25/18 04:06 12/25/18 03:42 99 12/25/18 00:00 97 12/24/18 21:00 12/24/18 20:02 100 12/24/18 19:16 99 12/24/18 17:00 12/24/18 16:12 98 12/24/18 15:46 12/24/18 14:49 96 12/24/18 14:15 12/24/18 13:51 100 12/24/18 13:36 98 12/24/18 12:54 12/24/18 12:00 136/96 12/24/18 10:39 12/24/18 10:38 12/24/18 10:36 12/24/18 10:35 12/24/18 10:33 100 12/24/18 09:00 98 - Physical Examination General: No Apparent Distress HEENT: Positive: PERRL Neck: Positive: trachea midline Cardiac: Positive: irregularly irregular Lungs: Positive: Decreased Breath Sounds Neuro: Positive: Grossly Intact, Weakness Extremities: Absent: edema - Labs and Meds CBC 12/25/18 Range/Units 05:49 WBC 3.3 L (4.5-11.0) K/mm3 RBC 3.19 L (3.65-5.03) M/mm3 Hgb 10.4 L (11.8-15.2) gm/dl Hct 31.6 L (35.5-45.6) % Plt Count 119 L (140-440) K/mm3 Lymph # 0.9 L (1.2-5.4) K/mm3 [place] # 0.3 (0.0-0.8) K/mm3 Eos # 0.1 (0.0-0.4) K/mm3 Baso # 0.0 (0.0-0.1) K/mm3 Comprehensive Metabolic Panel 12/25/18 Range/Units 05:49 Sodium 131 L (137-145) mmol/L Potassium 5.2 H (3.6-5.0) mmol/L Chloride 93.6 L (98-107) mmol/L Carbon Dioxide 22 (22-30) mmol/L BUN 45 H (9-20) mg/dL Creatinine 7.0 H (0.8-1.5) mg/dL Glucose 99 (75-100) mg/dL Calcium 8.7 (8.4-10.2) mg/dL - Allied health notes Allied health notes reviewed: nursing
[2018-12-25] MEDS ORDERED: NACL 0.9% 100 ML IV PRN (09:09)
[2018-12-25] MEDS: PEPCID PO SCH ×2 (09:16→21:23)
[2018-12-25] MEDS: SENOKOT S PO SCH ×2 (09:16→21:22)
[2018-12-25] MEDS: PROzac PO SCH (09:16)
[2018-12-25] MEDS: HEMOCYTE PLUS PO SCH (09:17)
[2018-12-25] MEDS: APRESOLINE PO SCH ×2 (10:45→21:22)
[2018-12-25] MEDS: COZAAR PO SCH (10:46)
[2018-12-25] MEDS: IMDUR PO SCH (10:47)
[2018-12-25] MEDS: NORVASC PO SCH (10:47)
[2018-12-25] MEDS: TOPROL XL PO SCH (10:48)
--- NOTE | 2018-12-25 11:39 | Cat Scan Report ---
CTA CHEST WITH CONTRAST INDICATION : pleuritic chest pain, hypertension, hitsory of heart attack. TECHNIQUE: Axial imaging performed through the chest, with contrast bolus timing set to maximize opa cification of the pulmonary arteries. Sagittal and coronal reformatted images. 3-plane MIP reformatte d images were obtained. All CT scans at this location are performed using CT dose reduction for ALAR A by means of automated exposure control. 100 mL of intravenous contrast administered. COMPARISON: Chest x-ray performed 12/23/2018 FINDINGS: Bolus: Contrast bolus timing is adequate. PTE: No filling defect is present to suggest PTE. Mediastinum: There is moderate four-chamber cardiac enlargement. No pericardial effusion. Three-vess el coronary artery calcifications are identified. The thyroid gland, tracheobronchial tree and esopha timothy are unremarkable. There are mild diffuse aortic calcifications. No pathologic mediastinal adenop athy. Lungs: Moderate layering right pleural effusion and large slightly scalloped left pleural effusion a re identified. There is compressive atelectasis in both lungs, left greater than right. No obvious in filtrate or mass. No pneumothorax. Upper abdomen: Diffuse vascular calcifications are noted in the upper abdomen. Numerous left renal c ysts are identified in the visualized left kidney. Bones: The bony structures are slightly sclerotic suggesting renal osteodystrophy. Scoliosis is note d. No fracture or suspicious bony lesion is identified. Lower cervical/upper thoracic posterior fusio n changes are partially imaged. IMPRESSION: No evidence for pulmonary embolus. Mild to moderate CHF. Signer Name: Piero Lang Jr, MD Signed: 12/25/2018 11:34 AM Workstation Name: [id number]
--- NOTE | 2018-12-25 13:06 | Progress Note ---
Assessment and Plan Imp: 1. L pleural effusion, transudative previously 2. NICMP 3. Chronic systolic CHF 4. ESRD 5. Pleurisy 6. Pancytopenia Rec: 1. CTA chest shows bilateral effusions, L >> R, w/ compressive atelectasis; o/w negative; fluid could be related to CHF or 3rd spacing due to poor nutrition; check Albumin and Prealbumin, consider increasing fluid removal with HD if tolerated, and await US guided Thoracentesis on the L 2. Consider hematology eval. for pancytopenia Plan of care reviewed w/ patient, he understands/agrees Subjective Date of service: 12/25/18 Principal diagnosis: L Pleural effusion Interval history: No events. On 2L NC about to start HD after CTA chest. Awake, alert. SOB still above baseline and ongoing L sided pleuritic chest pain. No other complaints. Active Medications Al Hydrox/Mg Hydrox/Simethicone (Alum-Mag Hydrox-Simeth [id number]/5ml) 20 ml PO DAILY PRN PRN Reason: Dyspepsia Amlodipine Besylate (Norvasc) 10 mg PO DAILY [facility] Last Admin: 12/25/18 10:47 Dose: Not Given Documented by: Atorvastatin Calcium (Lipitor) 40 mg PO QHS [facility] Last Admin: 12/24/18 21:39 Dose: 40 mg Documented by: Clonidine HCl (Catapres) 0.1 mg PO Q8HR [facility] Last Admin: 12/25/18 05:22 Dose: 0.1 mg Documented by: Clonidine HCl (Catapres) 0.2 mg PO Q8HR BEAN Last Admin: 12/25/18 05:22 Dose: 0.2 mg Documented by: Diphenhydramine HCl (Benadryl) 25 mg IV KATERYNA PRN PRN Reason: Itching Last Admin: 12/23/18 12:04 Dose: 25 mg Documented by: Diphenhydramine HCl (Benadryl) 25 mg PO Q6H PRN PRN Reason: Itching Last Admin: 12/24/18 21:38 Dose: 25 mg Documented by: Epoetin Prashant (Procrit) 10,000 unit SUB-Q KATERYNA PRN PRN Reason: hemodialysis Famotidine (Pepcid) 5 mg PO BID [facility] Last Admin: 12/25/18 09:16 Dose: 5 mg Documented by: Fluoxetine HCl (Prozac) 40 mg PO QDAY [facility] Last Admin: 12/25/18 09:16 Dose: 40 mg Documented by: Hydralazine HCl (Apresoline) 25 mg PO BID [facility] Last Admin: 12/25/18 10:45 Dose: Not Given Documented by: Hydralazine HCl (Apresoline) 10 mg IV Q4H PRN PRN Reason: Hypertension Last Admin: 12/23/18 04:55 Dose: 10 mg Documented by: Sodium Chloride (Nacl 0.9%) 100 mls @ 999 mls/hr IV KATERYNA PRN PRN Reason: Hypotension Sodium Chloride (Nacl 0.9%) 100 mls @ 999 mls/hr IV KATERYNA PRN PRN Reason: Hypotension Isosorbide Mononitrate (Imdur) 30 mg PO QDAY [facility] Last Admin: 12/25/18 10:47 Dose: Not Given Documented by: Losartan Potassium (Cozaar) 100 mg PO QDAY [facility] Last Admin: 12/25/18 10:46 Dose: Not Given Documented by: Metoprolol Succinate (Toprol Xl) 100 mg PO QDAY [facility] Last Admin: 12/25/18 10:48 Dose: Not Given Documented by: Morphine Sulfate (Morphine) 2 mg IV Q6H PRN PRN Reason: Pain , Severe (7-10) Last Admin: 12/25/18 09:24 Dose: 2 mg Documented by: Multivitamins/Iron (Hemocyte Plus) 1 each PO QDAY [facility] Last Admin: 12/25/18 09:17 Dose: 1 each Documented by: Oxycodone/Acetaminophen (Percocet 5/325) 1 tab PO Q6H PRN PRN Reason: Pain, Moderate (4-6) Last Admin: 12/24/18 21:39 Dose: 1 tab Documented by: Senna/Docusate Sodium (Senokot S) 1 tab PO BID [facility] Last Admin: 12/25/18 09:16 Dose: 1 tab Documented by: Objective Vital Signs - 12hr 12/25/18 12/25/18 12/25/18 03:42 04:06 08:29 Temperature 99.2 F 97.3 F L Pulse Rate 62 63 57 L Respiratory 19 16 Rate Blood Pressure 142/100 148/105 O2 Sat by Pulse 99 100 Oximetry 12/25/18 12/25/18 12/25/18 10:00 10:45 10:46 Temperature Pulse Rate 61 63 63 Respiratory Rate Blood Pressure 142/100 142/100 O2 Sat by Pulse Oximetry 12/25/18 12/25/18 10:47 10:48 Temperature Pulse Rate 63 63 Respiratory Rate Blood Pressure 142/100 142/100 O2 Sat by Pulse Oximetry Constitutional: no acute distress, alert, other (cachectic) Eyes: non-icteric ENT: oropharynx moist Neck: supple Effort: normal Ascultation: Left: diminished breath sounds (hemithorax) Cardiovascular: irregular rhythm (ir/ir, no mrg) Gastrointestinal: normoactive bowel sounds, soft, non-tender, non-distended Integumentary: normal Extremities: no cyanosis, no edema, pink and warm Neurologic: normal mental status, non-focal exam, pupils equal and round, CN II- XII normal Psychiatric: mood appropriate, affect normal CBC and BMP: 12/25/18 05:49 12/25/18 05:49 ABG, PT/INR, D-dimer: PT/INR, D-dimer PT 17.0 Sec. (12.2-14.9) H 12/22/18 04:12 INR 1.42 (0.87-1.13) H 12/22/18 04:12 1122.85 ng/mlDDU (0-234) H 12/22/18 04:12 Abnormal lab findings: Abnormal Labs 12/22/18 12/22/18 12/22/18 04:12 04:12 04:12 WBC 2.8 L RBC 2.92 L Hgb 9.6 L Hct 29.6 L MCV 101 H MCH 33 H RDW 16.9 H Plt Count 120 L [place] % (Auto) 10.5 H Lymph # 0.7 L Seg Neutrophils # 1.7 L PT 17.0 H INR 1.42 H D-Dimer 1122.85 H Sodium Potassium Chloride BUN 42 H Creatinine 7.6 H Glucose 118 H Total Creatine Kinase CK-MB (CK-2) Rel Index Troponin T 0.147 H* NT-Pro-B Natriuret Pep > 16356 H LDL Cholesterol Direct 34 L 12/22/18 12/23/18 12/23/18 06:37 04:14 04:14 WBC RBC Hgb Hct MCV MCH RDW Plt Count [place] % (Auto) Lymph # Seg Neutrophils # PT INR D-Dimer Sodium 135 L Potassium Chloride BUN 24 H Creatinine 4.7 H Glucose Total Creatine Kinase 46 L CK-MB (CK-2) Rel Index 5.8 H Troponin T 0.144 H* 0.177 H* D NT-Pro-B Natriuret Pep LDL Cholesterol Direct 12/23/18 12/25/18 12/25/18 12:21 05:49 05:49 WBC 3.3 L RBC 3.19 L Hgb 10.4 L Hct 31.6 L MCV 99 H MCH 33 H RDW 17.4 H Plt Count 119 L [place] % (Auto) 7.8 H Lymph # 0.9 L Seg Neutrophils # PT INR D-Dimer Sodium 131 L Potassium 5.2 H Chloride 93.6 L BUN 45 H Creatinine 7.0 H Glucose Total Creatine Kinase CK-MB (CK-2) Rel Index Troponin T 0.179 H* NT-Pro-B Natriuret Pep LDL Cholesterol Direct Chest x-ray: report reviewed, image reviewed CT scan - chest: report reviewed, image reviewed Allied health notes reviewed: nursing
[2018-12-25] MEDS ORDERED: NACL 0.9 (PRIMING MACHINE ONLY DIALYSIS) MC ONE (15:02)
[2018-12-25] MEDS: PROCRIT SUB-Q PRN (15:30)
[2018-12-25] MEDS: APRESOLINE IV PRN (18:46)
--- NOTE | 2018-12-25 19:54 | Progress Note ---
Assessment and Plan Assessment and plan: 71-year-old -[place] male patient with significant past medical history of end-stage renal disease on hemodialysis hypotension and congestive heart failure A. fib coronary artery disease PTSD hypertension presented to the emergency room with worsening shortness of breath of 3-4 days duration Patient is compliant with hemodialysis, next dialysis is due today, evaluation in the ED chest x-rays consistent with large left-sided pleural effusion Nonspecific elevation of troponins, and elevated D dimers Assessment and plan: --Elevated d-dimer; VQ scan low probability for PE in September 2018 CTA chest ; negative for PE Patient received hemodialysis post CTA Lower extremity venous Doppler negative for DVT --Large left pleural effusion; possible Thoracentesis tomorrow Eliquis is on hold, Hemodialysis, supportive care, fluid analysis Pulmonary following --Acute respiratory failure secondary to fluid overload as well as left pleural effusion Oxygen titrated to O2 sats more than 90%, nebulizers as needed Due to underlying cause, hemodialysis per schedule --Chronic systolic CHF; ejection fraction 10-15%, HD per schedule,anti-failure medications. --End-stage renal disease on hemodialysis; Nephrology consult, hemodialysis per schedule --Chronic elevation of troponins; nonspecific Cardiology following --History of A. fib ; rate controlled Continue beta blockers, chronic anticoagulation with Eliquis --History of coronary artery disease; continue current cardiac medications --History of PTSD; resume medications Psych evaluation if needed --DVT Prophylaxis: patient on Eliquis --Full code Monitor closely and adjust management as needed Plan of care is reviewed with the patient and his nurse Disposition: f/u thoracentesis/fluid analysis tomorrow Possible discharge in 1-2 days if stable History Interval history: Patient seen and examined medical records reviewed Scheduled for CTA chest today followed by hemodialysis Patient feels better complaints of mild shortness of breath Vital signs reviewed Hospitalist Physical - Constitutional Vitals: Temp Pulse Resp BP Pulse Ox 97.2 F L 58 L 14 171/108 98 12/25/18 17:59 12/25/18 18:46 12/25/18 17:59 12/25/18 18:46 12/25/18 19:09 General appearance: Present: no acute distress, well-nourished - EENT Eyes: Present: PERRL, EOM intact - Neck Neck: Present: supple, normal ROM - Respiratory Respiratory: bilateral: diminished (left more than right), rales, rhonchi, negative: wheezing - Cardiovascular Rhythm: regular Heart Sounds: Present: S1 & S2 - Extremities Extremities: no ischemia, No edema - Abdominal General gastrointestinal: soft, non-tender, non-distended, normal bowel sounds - Integumentary Integumentary: Present: clear, warm - Psychiatric Psychiatric: appropriate mood/affect, cooperative - Neurologic Neurologic: CNII-XII intact, moves all extremities Results - Labs CBC & Chem 7: 12/25/18 05:49 12/25/18 05:49 Labs: Laboratory Last Values WBC 3.3 K/mm3 (4.5-11.0) L 12/25/18 05:49 RBC 3.19 M/mm3 (3.65-5.03) L 12/25/18 05:49 Hgb 10.4 gm/dl (11.8-15.2) L 12/25/18 05:49 Hct 31.6 % (35.5-45.6) L 12/25/18 05:49 MCV 99 fl (84-94) H 12/25/18 05:49 MCH 33 pg (28-32) H 12/25/18 05:49 MCHC 33 % (32-34) 12/25/18 05:49 RDW 17.4 % (13.2-15.2) H 12/25/18 05:49 Plt Count 119 K/mm3 (140-440) L 12/25/18 05:49 Lymph % (Auto) 28.4 % (13.4-35.0) 12/25/18 05:49 [place] % (Auto) 7.8 % (0.0-7.3) H 12/25/18 05:49 Eos % (Auto) 3.8 % (0.0-4.3) 12/25/18 05:49 Baso % (Auto) 0.8 % (0.0-1.8) 12/25/18 05:49 Lymph # 0.9 K/mm3 (1.2-5.4) L 12/25/18 05:49 [place] # 0.3 K/mm3 (0.0-0.8) 12/25/18 05:49 Eos # 0.1 K/mm3 (0.0-0.4) 12/25/18 05:49 Baso # 0.0 K/mm3 (0.0-0.1) 12/25/18 05:49 Seg Neutrophils % 59.2 % (40.0-70.0) 12/25/18 05:49 Seg Neutrophils # 2.0 K/mm3 (1.8-7.7) 12/25/18 05:49 PT 17.0 Sec. (12.2-14.9) H 12/22/18 04:12 INR 1.42 (0.87-1.13) H 12/22/18 04:12 APTT 32.4 Sec. (24.2-36.6) 12/22/18 04:12 1122.85 ng/mlDDU (0-234) H 12/22/18 04:12 Sodium 131 mmol/L (137-145) L 12/25/18 05:49 Potassium 5.2 mmol/L (3.6-5.0) H 12/25/18 05:49 Chloride 93.6 mmol/L (98-107) L 12/25/18 05:49 Carbon Dioxide 22 mmol/L (22-30) 12/25/18 05:49 21 mmol/L 12/25/18 05:49 BUN 45 mg/dL (9-20) H 12/25/18 05:49 7.0 mg/dL (0.8-1.5) H 12/25/18 05:49 Estimated GFR 9 ml/min 12/25/18 05:49 6 % 12/25/18 05:49 Glucose 99 mg/dL (75-100) 12/25/18 05:49 Calcium 8.7 mg/dL (8.4-10.2) 12/25/18 05:49 Magnesium 1.90 mg/dL (1.7-2.3) 12/25/18 05:49 113 units/L (55-170) 12/23/18 12:21 CK-MB (CK-2) 3.5 ng/mL (0.0-4.0) 12/23/18 12:21 CK-MB (CK-2) Rel Index 3.0 (0-4) 12/23/18 12:21 0.179 ng/mL (0.00-0.029) H* 12/23/18 12:21 NT-Pro-B Natriuret Pep > 14361 pg/mL (0-900) H 12/22/18 04:12 Triglycerides 53 mg/dL (2-149) 12/22/18 04:12 Cholesterol 87 mg/dL (50-199) 12/22/18 04:12 34 mg/dL (50-130) L 12/22/18 04:12 47 mg/dL (40-59) 12/22/18 04:12 1.85 % 12/22/18 04:12 Active Medications - Current Medications Current Medications: Generic Name Dose Route Start Last Admin Trade Name Freq PRN Reason Stop Dose Admin Al Hydrox/Mg Hydrox/Simethicone 20 ml 12/22/18 10:00 Alum-Mag Hydrox-Simeth [id number]/5ml PO DAILY PRN Dyspepsia Amlodipine Besylate 10 mg 12/22/18 10:00 12/25/18 10:47 Norvasc PO Not Given DAILY BEAN Atorvastatin Calcium 40 mg 12/22/18 22:00 12/24/18 21:39 Lipitor PO 40 mg QHS BEAN Administration Clonidine HCl 0.1 mg 12/22/18 07:45 12/25/18 14:26 Catapres PO Not Given Q8HR BEAN Clonidine HCl 0.2 mg 12/22/18 07:45 12/25/18 14:26 Catapres PO Not Given Q8HR BEAN Diphenhydramine HCl 25 mg 12/22/18 11:23 12/23/18 12:04 Benadryl IV 25 mg KATERYNA PRN Administration Itching Diphenhydramine HCl 25 mg 12/23/18 20:22 12/24/18 21:38 Benadryl PO 25 mg Q6H PRN Administration Itching Epoetin Prashant 10,000 unit 12/22/18 07:28 12/25/18 15:30 Procrit SUB-Q 10,000 unit KATERYNA PRN Administration hemodialysis Famotidine 5 mg 12/22/18 10:00 12/25/18 09:16 Pepcid PO 5 mg BID BEAN Administration Fluoxetine HCl 40 mg 12/22/18 10:00 12/25/18 09:16 Prozac PO 40 mg QDAY BEAN Administration Hydralazine HCl 25 mg 12/22/18 10:00 12/25/18 10:45 Apresoline PO Not Given BID BEAN Hydralazine HCl 10 mg 12/22/18 07:31 12/25/18 18:46 Apresoline IV 10 mg Q4H PRN Administration Hypertension Sodium Chloride 100 mls @ 999 mls/hr 12/22/18 11:23 Nacl 0.9% IV KATERYNA PRN Hypotension Sodium Chloride 100 mls @ 999 mls/hr 12/25/18 09:09 Nacl 0.9% IV KATERYNA PRN Hypotension Isosorbide Mononitrate 30 mg 12/22/18 10:00 12/25/18 10:47 Imdur PO Not Given QDAY [facility] Losartan Potassium 100 mg 12/22/18 10:00 12/25/18 10:46 Cozaar PO Not Given QDAY [facility] Metoprolol Succinate 100 mg 12/22/18 10:00 12/25/18 10:48 Toprol Xl PO Not Given QDAY [facility] Morphine Sulfate 2 mg 12/25/18 02:36 12/25/18 18:51 Morphine IV 2 mg Q6H PRN Administration Pain , Severe (7-10) Multivitamins/Iron 1 each 12/22/18 10:00 12/25/18 09:17 Hemocyte Plus PO 1 each QDAY BEAN Administration Oxycodone/Acetaminophen 1 tab 12/22/18 17:41 12/24/18 21:39 Percocet 5/325 PO 1 tab Q6H PRN Administration Pain, Moderate (4-6) Senna/Docusate Sodium 1 tab 12/22/18 10:00 12/25/18 09:16 Senokot S PO 1 tab BID BEAN Administration Nutrition/Malnutrition Assess - Dietary Evaluation Nutrition/Malnutrition Findings: Nutrition Notes Start: 12/23/18 14: 30 Freq: Status: Active Protocol: Document 12/25/18 13:27 MEGAN (Rec: 12/25/18 13:33 [id number]) Nutrition Notes Initial or Follow up Reassessment Current Diagnosis CKD (stage V CKD),Coronary Artery Disease,Heart Failure, Respiratory Failure Other Pertinent Diagnosis Large (L) pleural effusion Current Diet Regular + Ensure Clear daily ( M, W, F) Labs/Tests Na 131 K 5.2 BUN 45 Cr 7 Pertinent Medications Reviewed Height 5 ft 9 in Weight 57 kg [place] Body Weight (kg) 72.72 BMI 18.5 Subjective/Other Information Pt not in room at time of visit (11:08). He is scheduled for thoracentesis today. He has consumed 75% of meals. Despite being an HD pt, pt requests Regular diet and does not like Nepro shakes . Percent of energy/protein needs met: 100% energy 86% pro (without ONS) Burn Absent Trauma Absent #1 Nutrition Diagnosis Malnutrition Diagnosis Progress(for reassessment Continues documentation) Is patient on ventilator? No Is Patient Ambulatory and/or Out of Bed No REE-([facility]-confined to bed) 1590.492 Kcal/Kg value to use for calculation 35 Approximate Energy Requirements Using 1994 kcal/Kg Calculation Used for Recommendations Kcal/kg Additional Notes Pro needs 1.2-1.4g/k-80g/ day Fluid needs 1-1.5L/day Nutrition Intervention Change Diet Order: Continue current diet order Add Supplement/Snack (indicate name/kcal Ensure Clear 1 daily (M/W/F/ /protein ) Sun) Provides kCal: 240 Provides Protein (gm) 8 Goal #1 PO intake of meals plus ONS to meet 80-100% energy and pro needs Goal #2 Wt gain/maintenance Revisit per MD consult or patient Sign Off request:
[2018-12-25] MEDS: BENADRYL PO PRN (21:22)
[2018-12-26] MEDS: MORPHINE IV PRN ×3 (00:47→21:57)
[2018-12-26] MEDS: CATAPRES PO SCH ×5 (05:37→21:57)
[2018-12-26] MEDS: BENADRYL PO PRN (05:44)
[2018-12-26 06:53] LABS: Calcium 8.9 mg/dL (8.4-10.2)
[2018-12-26 06:59] LABS: Albumin 3.1 g/dL (3.9-5); Prealbumin 0.139 g/L (0.200-0.400)
--- NOTE | 2018-12-26 08:43 | Progress Note ---
<LONI DEL VALLE - Last Filed: 12/26/18 10:02> Assessment and Plan Recurrent Left pleural effusion Chronic systolic heart failure Chronic and constant atypical chest pain DM type II PVD s/p left arm amputation Hypertension ESRD on hemodialysis Thrombocytopenia, chronic Hx of Nonischemic CMP EF 10-15% by echo 08/2018 Non-obstructive CAD [facility] 01/2017 revealed non-obstructive, single vessel disease of the proximal LAD recommended for medical therapy. normal perfusion MPI at [facility] 10/03/18. Permanent Atrial fibrillation rate controlled with metoprolol on low dose eliquis as an outpatient Recommendations: Dialysis for fluid management. Continue medical therapy for nonischemic cardiomyopathy and chronic systolic heart failure. Oral anticoagulation therapy temporarily held until workup and management of left pleural effusion is completed. Otherwise, conservative cardiac management. Subjective Date of service: 12/26/18 Principal diagnosis: L Pleural effusion Interval history: Patient is resting in bed comfortably. No distress noted. Awaits thoracentesis. Afib with a well controlled ventricular rate on telemetry. Objective Vital Signs Temp Pulse Pulse Pulse Pulse Resp BP 12/26/18 08:04 97.7 F 63 16 153/98 12/26/18 05:38 61 157/108 12/26/18 05:37 61 157/108 12/26/18 04:05 98.3 F 61 18 157/108 12/25/18 23:47 98.1 F 60 18 143/99 12/25/18 21:23 61 157/106 12/25/18 21:22 61 157/106 12/25/18 20:34 65 12/25/18 19:57 98.0 F 54 L 19 157/106 12/25/18 19:09 12/25/18 18:46 58 L 171/108 12/25/18 17:59 97.2 F L 58 L 14 171/108 12/25/18 17:00 84 12/25/18 15:40 98.0 F 66 18 154/92 12/25/18 15:30 66 154/91 12/25/18 15:15 63 155/70 12/25/18 15:00 60 139/96 12/25/18 14:45 65 170/93 12/25/18 14:30 66 145/102 12/25/18 14:15 71 147/95 12/25/18 14:00 67 141/82 12/25/18 13:45 64 165/90 12/25/18 13:30 71 148/99 12/25/18 13:15 61 156/80 12/25/18 13:00 61 158/98 12/25/18 12:45 62 156/128 12/25/18 12:30 98.0 F 63 18 183/113 12/25/18 12:00 58 L 12/25/18 10:48 63 142/100 12/25/18 10:47 63 142/100 12/25/18 10:46 63 142/100 12/25/18 10:45 63 142/100 12/25/18 10:00 61 12/25/18 09:00 63 63 63 Pulse Ox 12/26/18 08:04 100 12/26/18 05:38 12/26/18 05:37 12/26/18 04:05 95 12/25/18 23:47 100 12/25/18 21:23 12/25/18 21:22 12/25/18 20:34 12/25/18 19:57 100 12/25/18 19:09 98 12/25/18 18:46 12/25/18 17:59 100 12/25/18 17:00 12/25/18 15:40 12/25/18 15:30 12/25/18 15:15 12/25/18 15:00 12/25/18 14:45 12/25/18 14:30 12/25/18 14:15 12/25/18 14:00 12/25/18 13:45 12/25/18 13:30 12/25/18 13:15 12/25/18 13:00 12/25/18 12:45 12/25/18 12:30 12/25/18 12:00 12/25/18 10:48 12/25/18 10:47 12/25/18 10:46 12/25/18 10:45 12/25/18 10:00 12/25/18 09:00 - Physical Examination General: No Apparent Distress HEENT: Positive: PERRL Neck: Positive: trachea midline Cardiac: Positive: irregularly irregular Lungs: Positive: Decreased Breath Sounds Neuro: Positive: Grossly Intact, Weakness Extremities: Absent: edema - Labs and Meds Comprehensive Metabolic Panel 12/26/18 12/26/18 Range/Units 05:33 05:33 Sodium 131 L (137-145) mmol/L Potassium 4.1 D (3.6-5.0) mmol/L Chloride 95.4 L (98-107) mmol/L Carbon Dioxide 25 (22-30) mmol/L BUN 24 H (9-20) mg/dL Creatinine 4.8 H (0.8-1.5) mg/dL Glucose 106 H (75-100) mg/dL Calcium 8.9 (8.4-10.2) mg/dL Albumin 3.1 L (3.9-5) g/dL - Allied health notes Allied health notes reviewed: nursing <ENEDINA ROCHA - Last Filed: 12/26/18 19:05> Assessment and Plan I have seen and evaluated the patient and agree with the assessment and plan. Patient has a history of nonischemic cardiomyopathy with EF 10-15%, and non- obstructive coronary artery disease. Recommend Dialysis for fluid management. Continue medical therapy for nonischemic cardiomyopathy and chronic systolic heart failure. Objective Vital Signs Temp Pulse Resp BP Pulse Ox 12/26/18 12:29 98.1 F 62 16 152/96 100 12/26/18 11:13 63 12/26/18 11:12 63 12/26/18 11:11 63 12/26/18 09:52 100 12/26/18 08:04 97.7 F 63 16 153/98 100 12/26/18 05:38 61 157/108 12/26/18 05:37 61 157/108 12/26/18 04:05 98.3 F 61 18 157/108 95 12/25/18 23:47 98.1 F 60 18 143/99 100 12/25/18 21:23 61 157/106 12/25/18 21:22 61 157/106 12/25/18 20:34 65 12/25/18 19:57 98.0 F 54 L 19 157/106 100 12/25/18 19:09 98 - Labs and Meds Comprehensive Metabolic Panel 12/26/18 12/26/18 Range/Units 05:33 05:33 Sodium 131 L (137-145) mmol/L Potassium 4.1 D (3.6-5.0) mmol/L Chloride 95.4 L (98-107) mmol/L Carbon Dioxide 25 (22-30) mmol/L BUN 24 H (9-20) mg/dL Creatinine 4.8 H (0.8-1.5) mg/dL Glucose 106 H (75-100) mg/dL Calcium 8.9 (8.4-10.2) mg/dL Albumin 3.1 L (3.9-5) g/dL
--- NOTE | 2018-12-26 09:25 | Progress Note ---
Assessment and Plan - Patient Problems (1) ESRD needing dialysis Current Visit: Yes Status: Chronic Plan to address problem: Maintain on a Monday inpatient hemodialysis schedule. (2) Pleural effusion Current Visit: Yes Status: Chronic Plan to address problem: CT angiogram noted. Pulmonary evaluation with recommendations for increased UF during dialysis before attempting thoracentesis if pleural effusion remained stable. We will increase his UF goal with hemodialysis to 3-4 L tolerated. We will see whether or not this may have any significant impact. We'll monitor closely (3) Hypertensive chronic kidney disease with stage 5 chronic kidney disease or end stage renal disease Current Visit: Yes Status: Chronic Plan to address problem: We'll monitor on his current regimen. (4) Type 2 diabetes mellitus with diabetic chronic kidney disease Current Visit: Yes Status: Chronic Qualifiers: Chronic kidney disease stage: on chronic dialysis Plan to address problem: Diabetes management per primary attending. (5) Anemia in CKD (chronic kidney disease) Current Visit: Yes Status: Acute Qualifiers: Chronic kidney disease stage: on chronic dialysis Qualified Code(s): N18.6 - End stage renal disease; D63.1 - Anemia in chronic kidney disease; Z99.2 - Dependence on renal dialysis Plan to address problem: Epogen with hemodialysis. Subjective Date of service: 12/26/18 Principal diagnosis: L Pleural effusion Interval history: Patient tolerated 2 L of ultrafiltration with his hemodialysis session yesterday. CT noted without any acute findings concerning for pulmonary embolus. Concern for possible underlying CHF. Left pleural effusion still present greater than the right pleural effusion. Pulmonology evaluation noted. We will try to remove more fluid with the hemodialysis with goal increased to 3- 4 L as tolerated. Objective - Vital Signs Vital signs: Vital Signs - 12hr 12/25/18 12/25/18 12/26/18 21:23 23:47 04:05 Temperature 98.1 F 98.3 F Pulse Rate 61 60 61 Respiratory 18 18 Rate Blood Pressure 157/106 143/99 157/108 O2 Sat by Pulse 100 95 Oximetry 12/26/18 12/26/18 12/26/18 05:37 05:38 08:04 Temperature 97.7 F Pulse Rate 61 61 63 Respiratory 16 Rate Blood Pressure 157/108 157/108 153/98 O2 Sat by Pulse 100 Oximetry - General Appearance General appearance: appears stated age, chronically ill, frail EENT: ATNC, PERRL Neck: no JVD, no thyromegaly Respiratory: Present: Decreased Breath Sounds Cardiology: regular, S1S2 Gastrointestinal: normal, normoactive bowel sounds Integumentary: no rash Neurologic: alert and oriented x3 Psychiatric: mood/affect appropriate, cooperative - Lab 12/25/18 05:49 12/26/18 05:33 Most recent lab results Calcium 8.9 mg/dL (8.4-10.2) 12/26/18 05:33 Magnesium 1.90 mg/dL (1.7-2.3) 12/25/18 05:49 - Imaging Other: report reviewed - Allied health notes Allied health notes reviewed: nursing Medications & Allergies - Medications Allergies/Adverse Reactions: Allergies aspirin Allergy (Verified 03/16/17 01:25) Unknown stomach cramps pork derived (porcine) Allergy (Verified 03/16/17 01:27) Rash venom-honey bee [bee venom (honey bee)] Allergy (Verified 03/16/17 01:27) Anaphylaxis Pork/Porcine Containing Products Adverse Reaction (Severe, Verified 02/13/17 09:31) Nausea,VOMITING Home Medications: Home Medications Medication Instructions Recorded Confirmed Last Taken Type Acetaminophen [Acetaminophen TAB] 650 mg PO Q4H PRN tablet 05/05/18 12/24/18 09/21/18 Rx Apixaban [Eliquis] 2.5 mg PO Q12HR #60 tablet 09/05/18 12/24/18 09/21/18 Rx FLUoxetine HCL [Fluoxetine HCl] 40 mg PO QDAY #30 capsule 09/05/18 12/22/18 09/21/18 Rx Famotidine [Pepcid] 10 mg PO BID #15 tablet 09/05/18 12/22/18 09/21/18 Rx Fe Fumarate/FA/Mv, Min Comb#15 1 each PO QDAY #30 capsule 09/05/18 12/24/18 09/21/18 Rx [Hemocyte Plus] ISOSORBIDE MONOnitrate [Imdur ER] 30 mg PO QDAY #30 tablet 09/05/18 12/24/18 09/21/18 Rx Losartan [Cozaar] 100 mg PO QDAY 30 Days tablet 09/05/18 12/22/18 09/21/18 Rx amLODIPine [Norvasc] 10 mg PO DAILY #30 tablet 09/05/18 12/22/18 09/21/18 Rx hydrALAZINE [Apresoline TAB] 50 mg PO BID 11/06/18 12/22/18 Unknown History Mag Hydrox/Aluminum Hyd/Simeth 355 ml PO DAILY PRN 15 Days 11/08/18 12/22/18 Unknown Rx [Maalox Advanced Suspension] oral.susp Apixaban [Eliquis] 2.5 mg PO Q12HR #60 tablet 12/01/18 12/22/18 Unknown Rx AtorvaSTATin [Lipitor] 40 mg PO QHS #30 tablet 12/01/18 12/22/18 Unknown Rx Epoetin Prashant 10,000 Unit [Procrit] 10,000 unit SUB-Q KATERYNA PRN #30 vial 12/01/18 12/24/18 Unknown Rx ISOSORBIDE MONOnitrate [Imdur ER] 30 mg PO DAILY #30 tablet 12/01/18 12/22/18 Unknown Rx Metoprolol Xl [Metoprolol 100 mg PO QDAY #30 tablet 12/01/18 12/24/18 Unknown Rx SUCCINATE ER TAB] Sennosides/Docusate [Senokot S] 1 tab PO BID #20 tablet 12/01/18 12/22/18 Unknown Rx amLODIPine [Norvasc] 10 mg PO DAILY #30 tablet 12/01/18 12/24/18 Unknown Rx levoFLOXacin [Levaquin TAB] 500 mg PO QDAY #7 tablet 12/01/18 12/24/18 Unknown Rx metroNIDAZOLE [Flagyl] 500 mg PO Q8HR #21 tablet 12/01/18 12/24/18 Unknown Rx cloNIDine 0.3 mg PO ONCE 12/22/18 12/24/18 Unknown History Active Medications: Generic Name Dose Route Start Last Admin Trade Name Freq PRN Reason Stop Dose Admin Al Hydrox/Mg Hydrox/Simethicone 20 ml 12/22/18 10:00 Alum-Mag Hydrox-Simeth 773-903-17fk/5ml PO DAILY PRN Dyspepsia Amlodipine Besylate 10 mg 12/22/18 10:00 12/25/18 10:47 Norvasc PO Not Given DAILY BEAN Atorvastatin Calcium 40 mg 12/22/18 22:00 12/25/18 21:22 Lipitor PO 40 mg QHS BEAN Administration Clonidine HCl 0.1 mg 12/22/18 07:45 12/26/18 05:37 Catapres PO 0.1 mg Q8HR BEAN Administration Clonidine HCl 0.2 mg 12/22/18 07:45 12/26/18 05:38 Catapres PO 0.2 mg Q8HR BEAN Administration Diphenhydramine HCl 25 mg 12/22/18 11:23 12/23/18 12:04 Benadryl IV 25 mg KATERYNA PRN Administration Itching Diphenhydramine HCl 25 mg 12/23/18 20:22 12/26/18 05:44 Benadryl PO 25 mg Q6H PRN Administration Itching Epoetin Prashant 10,000 unit 12/22/18 07:28 12/25/18 15:30 Procrit SUB-Q 10,000 unit KATERYNA PRN Administration hemodialysis Famotidine 5 mg 12/22/18 10:00 12/25/18 21:23 Pepcid PO 5 mg BID BEAN Administration Fluoxetine HCl 40 mg 12/22/18 10:00 12/25/18 09:16 Prozac PO 40 mg QDAY BEAN Administration Hydralazine HCl 25 mg 12/22/18 10:00 12/25/18 21:22 Apresoline PO 25 mg BID BEAN Administration Hydralazine HCl 10 mg 12/22/18 07:31 12/25/18 18:46 Apresoline IV 10 mg Q4H PRN Administration Hypertension Sodium Chloride 100 mls @ 999 mls/hr 12/22/18 11:23 Nacl 0.9% IV KATERYNA PRN Hypotension Sodium Chloride 100 mls @ 999 mls/hr 12/25/18 09:09 Nacl 0.9% IV KATERYNA PRN Hypotension Isosorbide Mononitrate 30 mg 12/22/18 10:00 12/25/18 10:47 Imdur PO Not Given QDAY BEAN Losartan Potassium 100 mg 12/22/18 10:00 12/25/18 10:46 Cozaar PO Not Given QDAY BEAN Metoprolol Succinate 100 mg 12/22/18 10:00 12/25/18 10:48 Toprol Xl PO Not Given QDAY BEAN Morphine Sulfate 2 mg 12/25/18 02:36 12/26/18 00:47 Morphine IV 2 mg Q6H PRN Administration Pain , Severe (7-10) Multivitamins/Iron 1 each 12/22/18 10:00 12/25/18 09:17 Hemocyte Plus PO 1 each QDAY BEAN Administration Oxycodone/Acetaminophen 1 tab 12/22/18 17:41 12/24/18 21:39 Percocet 5/325 PO 1 tab Q6H PRN Administration Pain, Moderate (4-6) Senna/Docusate Sodium 1 tab 12/22/18 10:00 12/25/18 21:22 Senokot S PO 1 tab BID BEAN Administration
--- NOTE | 2018-12-26 10:04 | Progress Note ---
Hospitalist Physical - Constitutional Vitals: Temp Pulse Resp BP Pulse Ox 97.7 F 63 16 153/98 100 12/26/18 08:04 12/26/18 08:04 12/26/18 08:04 12/26/18 08:04 12/26/18 09:52 General appearance: Present: no acute distress, well-nourished Results - Labs CBC & Chem 7: 12/25/18 05:49 12/26/18 05:33 Labs: Laboratory Last Values WBC 3.3 K/mm3 (4.5-11.0) L 12/25/18 05:49 RBC 3.19 M/mm3 (3.65-5.03) L 12/25/18 05:49 Hgb 10.4 gm/dl (11.8-15.2) L 12/25/18 05:49 Hct 31.6 % (35.5-45.6) L 12/25/18 05:49 MCV 99 fl (84-94) H 12/25/18 05:49 MCH 33 pg (28-32) H 12/25/18 05:49 MCHC 33 % (32-34) 12/25/18 05:49 RDW 17.4 % (13.2-15.2) H 12/25/18 05:49 Plt Count 119 K/mm3 (140-440) L 12/25/18 05:49 Lymph % (Auto) 28.4 % (13.4-35.0) 12/25/18 05:49 [place] % (Auto) 7.8 % (0.0-7.3) H 12/25/18 05:49 Eos % (Auto) 3.8 % (0.0-4.3) 12/25/18 05:49 Baso % (Auto) 0.8 % (0.0-1.8) 12/25/18 05:49 Lymph # 0.9 K/mm3 (1.2-5.4) L 12/25/18 05:49 Harris # 0.3 K/mm3 (0.0-0.8) 12/25/18 05:49 Eos # 0.1 K/mm3 (0.0-0.4) 12/25/18 05:49 Baso # 0.0 K/mm3 (0.0-0.1) 12/25/18 05:49 Seg Neutrophils % 59.2 % (40.0-70.0) 12/25/18 05:49 Seg Neutrophils # 2.0 K/mm3 (1.8-7.7) 12/25/18 05:49 PT 17.0 Sec. (12.2-14.9) H 12/22/18 04:12 INR 1.42 (0.87-1.13) H 12/22/18 04:12 APTT 32.4 Sec. (24.2-36.6) 12/22/18 04:12 1122.85 ng/mlDDU (0-234) H 12/22/18 04:12 Sodium 131 mmol/L (137-145) L 12/26/18 05:33 Potassium 4.1 mmol/L (3.6-5.0) D 12/26/18 05:33 Chloride 95.4 mmol/L (98-107) L 12/26/18 05:33 Carbon Dioxide 25 mmol/L (22-30) 12/26/18 05:33 15 mmol/L 12/26/18 05:33 BUN 24 mg/dL (9-20) H 12/26/18 05:33 4.8 mg/dL (0.8-1.5) H 12/26/18 05:33 Estimated GFR 15 ml/min 12/26/18 05:33 5 % 12/26/18 05:33 Glucose 106 mg/dL (75-100) H 12/26/18 05:33 Calcium 8.9 mg/dL (8.4-10.2) 12/26/18 05:33 Magnesium 1.90 mg/dL (1.7-2.3) 12/25/18 05:49 113 units/L (55-170) 12/23/18 12:21 CK-MB (CK-2) 3.5 ng/mL (0.0-4.0) 12/23/18 12:21 CK-MB (CK-2) Rel Index 3.0 (0-4) 12/23/18 12:21 0.179 ng/mL (0.00-0.029) H* 12/23/18 12:21 NT-Pro-B Natriuret Pep > 93169 pg/mL (0-900) H 12/22/18 04:12 3.1 g/dL (3.9-5) L 12/26/18 05:33 0.139 g/L (0.200-0.400) L 12/26/18 05:33 Triglycerides 53 mg/dL (2-149) 12/22/18 04:12 Cholesterol 87 mg/dL (50-199) 12/22/18 04:12 34 mg/dL (50-130) L 12/22/18 04:12 47 mg/dL (40-59) 12/22/18 04:12 1.85 % 12/22/18 04:12 Active Medications - Current Medications Current Medications: Generic Name Dose Route Start Last Admin Trade Name Freq PRN Reason Stop Dose Admin Al Hydrox/Mg Hydrox/Simethicone 20 ml 12/22/18 10:00 Alum-Mag Hydrox-Simeth 144-007-82oy/5ml PO DAILY PRN Dyspepsia Amlodipine Besylate 10 mg 12/22/18 10:00 12/25/18 10:47 Norvasc PO Not Given DAILY BEAN Atorvastatin Calcium 40 mg 12/22/18 22:00 12/25/18 21:22 Lipitor PO 40 mg QHS BEAN Administration Clonidine HCl 0.1 mg 12/22/18 07:45 12/26/18 05:37 Catapres PO 0.1 mg Q8HR BEAN Administration Clonidine HCl 0.2 mg 12/22/18 07:45 12/26/18 05:38 Catapres PO 0.2 mg Q8HR BEAN Administration Diphenhydramine HCl 25 mg 12/22/18 11:23 12/23/18 12:04 Benadryl IV 25 mg KATERYNA PRN Administration Itching Diphenhydramine HCl 25 mg 12/23/18 20:22 12/26/18 05:44 Benadryl PO 25 mg Q6H PRN Administration Itching Epoetin Prashant 10,000 unit 12/22/18 07:28 12/25/18 15:30 Procrit SUB-Q 10,000 unit KATERYNA PRN Administration hemodialysis Famotidine 5 mg 12/22/18 10:00 12/25/18 21:23 Pepcid PO 5 mg BID BEAN Administration Fluoxetine HCl 40 mg 12/22/18 10:00 07/09/19 09:16 Prozac PO 40 mg QDAY BEAN Administration Hydralazine HCl 25 mg 12/22/18 10:00 12/25/18 21:22 Apresoline PO 25 mg BID BEAN Administration Hydralazine HCl 10 mg 12/22/18 07:31 12/25/18 18:46 Apresoline IV 10 mg Q4H PRN Administration Hypertension Sodium Chloride 100 mls @ 999 mls/hr 12/22/18 11:23 Nacl 0.9% IV KATERYNA PRN Hypotension Sodium Chloride 100 mls @ 999 mls/hr 12/25/18 09:09 Nacl 0.9% IV KATERYNA PRN Hypotension Isosorbide Mononitrate 30 mg 12/22/18 10:00 12/25/18 10:47 Imdur PO Not Given QDAY [facility] Losartan Potassium 100 mg 12/22/18 10:00 12/25/18 10:46 Cozaar PO Not Given QDAY [facility] Metoprolol Succinate 100 mg 12/22/18 10:00 12/25/18 10:48 Toprol Xl PO Not Given QDAY [facility] Morphine Sulfate 2 mg 12/25/18 02:36 12/26/18 00:47 Morphine IV 2 mg Q6H PRN Administration Pain , Severe (7-10) Multivitamins/Iron 1 each 12/22/18 10:00 12/25/18 09:17 Hemocyte Plus PO 1 each QDAY BEAN Administration Oxycodone/Acetaminophen 1 tab 12/22/18 17:41 12/24/18 21:39 Percocet 5/325 PO 1 tab Q6H PRN Administration Pain, Moderate (4-6) Senna/Docusate Sodium 1 tab 12/22/18 10:00 12/25/18 21:22 Senokot S PO 1 tab BID BEAN Administration Nutrition/Malnutrition Assess - Dietary Evaluation Nutrition/Malnutrition Findings: Nutrition Notes Start: 12/23/18 1 4:30 Freq: Status: Active Protocol: Document 12/25/18 13:27 MEGAN (Rec: 12/25/18 13:33 MEGAN [email or web address]) Nutrition Notes Initial or Follow up Reassessment Current Diagnosis CKD (stage V CKD),Coronary Artery Disease,Heart Failure, Respiratory Failure Other Pertinent Diagnosis Large (L) pleural effusion Current Diet Regular + Ensure Clear daily ( M, W, F) Labs/Tests Na 131 K 5.2 BUN 45 Cr 7 Pertinent Medications Reviewed Height 5 ft 9 in Weight 57 kg [place] Body Weight (kg) 72.72 BMI 18.5 Subjective/Other Information Pt not in room at time of visit (11:08). He is scheduled for thoracentesis today. He has consumed 75% of meals. Despite being an HD pt, pt requests Regular diet and does not like Nepro shakes . Percent of energy/protein needs met: 100% energy 86% pro (without ONS) Burn Absent Trauma Absent #1 Nutrition Diagnosis Malnutrition Diagnosis Progress(for reassessment Continues documentation) Is patient on ventilator? No Is Patient Ambulatory and/or Out of Bed No REE-([facility]-confined to bed) 1590.492 Kcal/Kg value to use for calculation 35 Approximate Energy Requirements Using 1995 kcal/Kg Calculation Used for Recommendations Kcal/kg Additional Notes Pro needs 1.2-1.4g/k-80g/ day Fluid needs 1-1.5L/day Nutrition Intervention Change Diet Order: Continue current diet order Add Supplement/Snack (indicate name/kcal Ensure Clear 1 daily (M/W/F/ /protein ) Sun) Provides kCal: 240 Provides Protein (gm) 8 Goal #1 PO intake of meals plus ONS to meet 80-100% energy and pro needs Goal #2 Wt gain/maintenance Revisit per MD consult or patient Sign Off request:
[2018-12-26] MEDS: SENOKOT S PO SCH ×2 (11:10→21:55)
[2018-12-26] MEDS: PERCOCET 5/325 PO PRN (11:11)
[2018-12-26] MEDS: NORVASC PO SCH (11:11)
[2018-12-26] MEDS: PROzac PO SCH (11:12)
[2018-12-26] MEDS: APRESOLINE PO SCH ×2 (11:12→21:55)
[2018-12-26] MEDS: COZAAR PO SCH (11:12)
[2018-12-26] MEDS: IMDUR PO SCH (11:12)
[2018-12-26] MEDS: HEMOCYTE PLUS PO SCH (11:13)
[2018-12-26] MEDS: TOPROL XL PO SCH (11:13)
[2018-12-26] MEDS: PEPCID PO SCH ×2 (11:13→21:55)
--- NOTE | 2018-12-26 15:29 | Procedure Note ---
Date of procedure: 12/26/18 Pre-op diagnosis: left pleural effusion Post-op diagnosis: same Procedure: US left thoracentesis Findings: moderate left pleural fluid Anesthesia: local Surgeon: TERRI CAZARES Estimated blood loss: none Pathology: list (120cc) Specimen disposition: to lab Condition: stable Disposition: floor
--- NOTE | 2018-12-26 15:32 | Progress Note ---
Assessment and Plan - Patient Problems (1) Afib Current Visit: Yes Status: Acute (2) Anemia in CKD (chronic kidney disease) Current Visit: Yes Status: Acute Qualifiers: Chronic kidney disease stage: on chronic dialysis Qualified Code(s): N18.6 - End stage renal disease; D63.1 - Anemia in chronic kidney disease; Z99.2 - Dependence on renal dialysis (3) HTN (hypertension) Current Visit: Yes Status: Acute (4) Nonischemic cardiomyopathy Current Visit: Yes Status: Acute (5) Thrombocytopenia Current Visit: Yes Status: Acute (6) ESRD needing dialysis Current Visit: Yes Status: Chronic (7) Pleural effusion Current Visit: Yes Status: Chronic Subjective Principal diagnosis: L Pleural effusion Interval history: off the floor Objective Vital Signs - 12hr 12/26/18 12/26/18 12/26/18 04:05 05:37 05:38 Temperature 98.3 F Pulse Rate 61 61 61 Respiratory 18 Rate Blood Pressure 157/108 157/108 157/108 O2 Sat by Pulse 95 Oximetry 12/26/18 12/26/18 12/26/18 08:04 09:52 11:11 Temperature 97.7 F Pulse Rate 63 63 Respiratory 16 Rate Blood Pressure 153/98 O2 Sat by Pulse 100 100 Oximetry 12/26/18 12/26/18 12/26/18 11:12 11:13 12:29 Temperature 98.1 F Pulse Rate 63 63 62 Respiratory 16 Rate Blood Pressure 152/96 O2 Sat by Pulse 100 Oximetry Constitutional: no acute distress, alert, other (cachectic) Eyes: non-icteric ENT: oropharynx moist Neck: supple Effort: normal Ascultation: Left: diminished breath sounds (hemithorax) Cardiovascular: irregular rhythm (ir/ir, no mrg) Gastrointestinal: normoactive bowel sounds, soft, non-tender, non-distended Integumentary: normal Extremities: no cyanosis, no edema, pink and warm Neurologic: normal mental status, non-focal exam, pupils equal and round, CN II- XII normal Psychiatric: mood appropriate, affect normal CBC and BMP: 12/25/18 05:49 12/26/18 05:33 ABG, PT/INR, D-dimer: PT/INR, D-dimer PT 17.0 Sec. (12.2-14.9) H 12/22/18 04:12 INR 1.42 (0.87-1.13) H 12/22/18 04:12 1122.85 ng/mlDDU (0-234) H 12/22/18 04:12 Abnormal lab findings: Abnormal Labs 12/22/18 12/22/18 12/22/18 04:12 04:12 04:12 WBC 2.8 L RBC 2.92 L Hgb 9.6 L Hct 29.6 L MCV 101 H MCH 33 H RDW 16.9 H Plt Count 120 L [place] % (Auto) 10.5 H Lymph # 0.7 L Seg Neutrophils # 1.7 L PT 17.0 H INR 1.42 H D-Dimer 1122.85 H Sodium Potassium Chloride BUN 42 H Creatinine 7.6 H Glucose 118 H Total Creatine Kinase CK-MB (CK-2) Rel Index Troponin T 0.147 H* NT-Pro-B Natriuret Pep > 52167 H Albumin Prealbumin LDL Cholesterol Direct 34 L 12/22/18 12/23/18 12/23/18 06:37 04:14 04:14 WBC RBC Hgb Hct MCV MCH RDW Plt Count [place] % (Auto) Lymph # Seg Neutrophils # PT INR D-Dimer Sodium 135 L Potassium Chloride BUN 24 H Creatinine 4.7 H Glucose Total Creatine Kinase 46 L CK-MB (CK-2) Rel Index 5.8 H Troponin T 0.144 H* 0.177 H* D NT-Pro-B Natriuret Pep Albumin Prealbumin LDL Cholesterol Direct 12/23/18 12/25/18 12/25/18 12:21 05:49 05:49 WBC 3.3 L RBC 3.19 L Hgb 10.4 L Hct 31.6 L MCV 99 H MCH 33 H RDW 17.4 H Plt Count 119 L [place] % (Auto) 7.8 H Lymph # 0.9 L Seg Neutrophils # PT INR D-Dimer Sodium 131 L Potassium 5.2 H Chloride 93.6 L BUN 45 H Creatinine 7.0 H Glucose Total Creatine Kinase CK-MB (CK-2) Rel Index Troponin T 0.179 H* NT-Pro-B Natriuret Pep Albumin Prealbumin LDL Cholesterol Direct 12/26/18 12/26/18 05:33 05:33 WBC RBC Hgb Hct MCV MCH RDW Plt Count [place] % (Auto) Lymph # Seg Neutrophils # PT INR D-Dimer Sodium 131 L Potassium Chloride 95.4 L BUN 24 H Creatinine 4.8 H Glucose 106 H Total Creatine Kinase CK-MB (CK-2) Rel Index Troponin T NT-Pro-B Natriuret Pep Albumin 3.1 L Prealbumin 0.139 L LDL Cholesterol Direct Allied health notes reviewed: nursing
--- NOTE | 2018-12-26 16:06 | Ultrasound Report ---
Ultrasound-guided thoracentesis HISTORY: Left pleural effusion. COMPARISON: None PROCEDURE: The risks (including but not limited to bleeding, infection, and pneumothorax) and benefi ts were explained to the patient and informed consent was obtained. A time out procedure was perform ed. Ultrasound was used to evaluate the left pleural effusion and locate the optimal site for needle entr y. Once the skin was marked, the procedure site was prepped and draped in the usual sterile fashion and lidocaine was used for local anesthesia. A skin ezequiel was made and a [address]-[place] [address] was placed. The patient was monitored closely throughout the procedure, and a total of 700 mL of yellow fluid was aspirated. Samples were sent to the lab for further evaluation per the primary cli nicians orders. The patient tolerated the procedure well with no complications. A post-procedure chest x-ray was imm ediately ordered. IMPRESSION: Successful thoracentesis as above with a total of 700 mL of yellow fluid aspirated. Signer Name: Piero Lang Jr, MD Signed: 12/26/2018 4:02 PM Workstation Name: [id number]
[2018-12-26 17:17] LABS: Total Cells Counted 100 /mm3
--- NOTE | 2018-12-26 17:43 | XRay Report ---
CHEST 1 VIEW INDICATION: sob, recent left thoracentesis. COMPARISON: 12/23/2018. FINDINGS: Support devices: Right-sided dialysis catheter unchanged. Heart: Within normal limits. Lungs/Pleura: Significant improvement in left-sided pleural effusion with minimal residual at the lef t base. Negative for pneumothorax. Improving aeration right base. Additional findings: None. IMPRESSION: 1. Resolution of left-sided effusion status post thoracentesis. Negative for pneumothorax. 2. Improving aeration right base. Signer Name: Francois Ang MD Signed: 12/26/2018 5:39 PM Workstation Name: [id number]
--- NOTE | 2018-12-26 19:17 | Progress Note ---
Assessment and Plan Assessment and plan: 71-year-old -[place] male patient with significant past medical history of end-stage renal disease on hemodialysis hypotension and congestive heart failure A. fib coronary artery disease PTSD hypertension presented to the emergency room with worsening shortness of breath of 3-4 days duration Patient is compliant with hemodialysis, next dialysis is due today, Nonspecific elevation of troponins, and elevated D dimers, negative PE, negative DVT chest x-rays consistent with large left-sided pleural effusion, s/p US guided Thoracentesis today Assessment and plan: --Large left pleural effusion; s/p US guided Thoracentesis [700 ml removed] Eliquis is on hold,f/u fluid analysis Pulmonary following --Elevated d-dimer; VQ scan low probability for PE in September 2018 CTA chest ; negative for PE Patient received hemodialysis post CTA Lower extremity venous Doppler negative for DVT --Acute respiratory failure; fluid overload , left pleural effusion Oxygen titrated to O2 sats more than 90%, nebulizers as needed Due to underlying cause, hemodialysis per schedule --Chronic systolic CHF; ejection fraction 10-15%, HD per schedule,anti-failure medications. --End-stage renal disease on hemodialysis; Nephrology consult, hemodialysis per schedule --Chronic elevation of troponins; nonspecific Cardiology following --History of A. fib ; rate controlled Continue beta blockers, chronic anticoagulation with Eliquis --History of coronary artery disease; continue current cardiac medications --History of PTSD; resume medications Psych evaluation if needed --DVT Prophylaxis: patient on Eliquis --Full code Monitor closely and adjust management as needed Plan of care is reviewed with the patient and his nurse Disposition: Possible discharge in 1-2 days of stable Follow-up consultation and recommendations History Interval history: Patient seen and examined medical records reviewed Patient underwent ultrasound-guided left thoracentesis and removal of 700 mL of Yellow colored pleural fluid, sent for analysis Patient tolerated the procedure without Complaints of mild pain, generalized weakness Hospitalist Physical - Constitutional Vitals: Temp Pulse Resp BP Pulse Ox 98.1 F 62 16 152/96 100 12/26/18 12:29 12/26/18 12:29 12/26/18 12:29 12/26/18 12:29 12/26/18 19:01 General appearance: Present: no acute distress, cachectic, disheveled - EENT Eyes: Present: PERRL, EOM intact - Neck Neck: Present: supple, normal ROM - Respiratory Respiratory effort: normal Respiratory: bilateral: diminished (left more diminished than right), rhonchi, negative: wheezing - Cardiovascular Rhythm: regular Heart Sounds: Present: S1 & S2 - Extremities Extremities: no ischemia, No edema, abnormal (left arm amputation) - Abdominal General gastrointestinal: soft, non-tender, non-distended, normal bowel sounds - Integumentary Integumentary: Present: clear, warm - Psychiatric Psychiatric: appropriate mood/affect, cooperative - Neurologic Neurologic: CNII-XII intact, moves all extremities Results - Labs CBC & Chem 7: 12/25/18 05:49 12/26/18 05:33 Labs: Laboratory Last Values WBC 3.3 K/mm3 (4.5-11.0) L 12/25/18 05:49 RBC 3.19 M/mm3 (3.65-5.03) L 12/25/18 05:49 Hgb 10.4 gm/dl (11.8-15.2) L 12/25/18 05:49 Hct 31.6 % (35.5-45.6) L 12/25/18 05:49 MCV 99 fl (84-94) H 12/25/18 05:49 MCH 33 pg (28-32) H 12/25/18 05:49 MCHC 33 % (32-34) 12/25/18 05:49 RDW 17.4 % (13.2-15.2) H 12/25/18 05:49 Plt Count 119 K/mm3 (140-440) L 12/25/18 05:49 Lymph % (Auto) 28.4 % (13.4-35.0) 12/25/18 05:49 [place] % (Auto) 7.8 % (0.0-7.3) H 12/25/18 05:49 Eos % (Auto) 3.8 % (0.0-4.3) 12/25/18 05:49 Baso % (Auto) 0.8 % (0.0-1.8) 12/25/18 05:49 Lymph # 0.9 K/mm3 (1.2-5.4) L 12/25/18 05:49 [place] # 0.3 K/mm3 (0.0-0.8) 12/25/18 05:49 Eos # 0.1 K/mm3 (0.0-0.4) 12/25/18 05:49 Baso # 0.0 K/mm3 (0.0-0.1) 12/25/18 05:49 Seg Neutrophils % 59.2 % (40.0-70.0) 12/25/18 05:49 Seg Neutrophils # 2.0 K/mm3 (1.8-7.7) 12/25/18 05:49 PT 17.0 Sec. (12.2-14.9) H 12/22/18 04:12 INR 1.42 (0.87-1.13) H 12/22/18 04:12 APTT 32.4 Sec. (24.2-36.6) 12/22/18 04:12 1122.85 ng/mlDDU (0-234) H 12/22/18 04:12 Sodium 131 mmol/L (137-145) L 12/26/18 05:33 Potassium 4.1 mmol/L (3.6-5.0) D 12/26/18 05:33 Chloride 95.4 mmol/L (98-107) L 12/26/18 05:33 Carbon Dioxide 25 mmol/L (22-30) 12/26/18 05:33 15 mmol/L 12/26/18 05:33 BUN 24 mg/dL (9-20) H 12/26/18 05:33 4.8 mg/dL (0.8-1.5) H 12/26/18 05:33 Estimated GFR 15 ml/min 12/26/18 05:33 5 % 12/26/18 05:33 Glucose 106 mg/dL (75-100) H 12/26/18 05:33 Calcium 8.9 mg/dL (8.4-10.2) 12/26/18 05:33 Magnesium 1.90 mg/dL (1.7-2.3) 12/25/18 05:49 113 units/L (55-170) 12/23/18 12:21 CK-MB (CK-2) 3.5 ng/mL (0.0-4.0) 12/23/18 12:21 CK-MB (CK-2) Rel Index 3.0 (0-4) 12/23/18 12:21 0.179 ng/mL (0.00-0.029) H* 12/23/18 12:21 NT-Pro-B Natriuret Pep > 45103 pg/mL (0-900) H 12/22/18 04:12 3.1 g/dL (3.9-5) L 12/26/18 05:33 0.139 g/L (0.200-0.400) L 12/26/18 05:33 Triglycerides 53 mg/dL (2-149) 12/22/18 04:12 Cholesterol 87 mg/dL (50-199) 12/22/18 04:12 34 mg/dL (50-130) L 12/22/18 04:12 47 mg/dL (40-59) 12/22/18 04:12 1.85 % 12/22/18 04:12 Fluid Type Pleural 12/26/18 Unknown Fluid Color Straw 12/26/18 Unknown Fluid Appearance Clear 12/26/18 Unknown Fluid WBC 6 /mm3 12/26/18 Unknown Fluid RBC 7 /mm3 12/26/18 Unknown Fluid Seg Neutrophils 35.0 % 12/26/18 Unknown Fluid Lymphocytes 55.0 % 12/26/18 Unknown Fluid Reactive Lymphs 0 % 12/26/18 Unknown Fluid Monocytes 9.0 % 12/26/18 Unknown Fluid Eosinophils 1.0 % 12/26/18 Unknown Fluid Basophils 0 % 12/26/18 Unknown Active Medications - Current Medications Current Medications: Generic Name Dose Route Start Last Admin Trade Name Freq PRN Reason Stop Dose Admin Al Hydrox/Mg Hydrox/Simethicone 20 ml 12/22/18 10:00 Alum-Mag Hydrox-Simeth 567-955-13rc/5ml PO DAILY PRN Dyspepsia Amlodipine Besylate 10 mg 12/22/18 10:00 12/26/18 11:11 Norvasc PO 10 mg DAILY BEAN Administration Atorvastatin Calcium 40 mg 12/22/18 22:00 12/25/18 21:22 Lipitor PO 40 mg QHS BEAN Administration Clonidine HCl 0.1 mg 12/22/18 07:45 12/26/18 15:59 Catapres PO 0.1 mg Q8HR BEAN Administration Clonidine HCl 0.2 mg 12/22/18 07:45 12/26/18 15:59 Catapres PO 0.2 mg Q8HR BEAN Administration Diphenhydramine HCl 25 mg 12/22/18 11:23 12/23/18 12:04 Benadryl IV 25 mg KATERYNA PRN Administration Itching Diphenhydramine HCl 25 mg 12/23/18 20:22 12/26/18 05:44 Benadryl PO 25 mg Q6H PRN Administration Itching Epoetin Prashant 10,000 unit 12/22/18 07:28 12/25/18 15:30 Procrit SUB-Q 10,000 unit KATERYNA PRN Administration hemodialysis Famotidine 5 mg 12/22/18 10:00 12/26/18 11:13 Pepcid PO 5 mg BID BEAN Administration Fluoxetine HCl 40 mg 12/22/18 10:00 12/26/18 11:12 Prozac PO 40 mg QDAY BEAN Administration Hydralazine HCl 25 mg 12/22/18 10:00 12/26/18 11:12 Apresoline PO 25 mg BID BEAN Administration Hydralazine HCl 10 mg 12/22/18 07:31 12/25/18 18:46 Apresoline IV 10 mg Q4H PRN Administration Hypertension Sodium Chloride 100 mls @ 999 mls/hr 12/22/18 11:23 Nacl 0.9% IV KATERYNA PRN Hypotension Sodium Chloride 100 mls @ 999 mls/hr 12/25/18 09:09 Nacl 0.9% IV KATERYNA PRN Hypotension Isosorbide Mononitrate 30 mg 12/22/18 10:00 12/26/18 11:12 Imdur PO 30 mg QDAY BEAN Administration Losartan Potassium 100 mg 12/22/18 10:00 12/26/18 11:12 Cozaar PO 100 mg QDAY BEAN Administration Metoprolol Succinate 100 mg 12/22/18 10:00 12/26/18 11:13 Toprol Xl PO 100 mg QDAY BEAN Administration Morphine Sulfate 2 mg 12/25/18 02:36 12/26/18 16:00 Morphine IV 2 mg Q6H PRN Administration Pain , Severe (7-10) Multivitamins/Iron 1 each 12/22/18 10:00 12/26/18 11:13 Hemocyte Plus PO 1 each QDAY BEAN Administration Oxycodone/Acetaminophen 1 tab 12/22/18 17:41 12/26/18 11:11 Percocet 5/325 PO 1 tab Q6H PRN Administration Pain, Moderate (4-6) Senna/Docusate Sodium 1 tab 12/22/18 10:00 12/26/18 11:10 Senokot S PO 1 tab BID BEAN Administration Nutrition/Malnutrition Assess - Dietary Evaluation Nutrition/Malnutrition Findings: Nutrition Notes Start: 12/23/18 14:30 Freq: Status: Active Protocol: Document 12/25/18 13:27 MEGAN (Rec: 12/25/18 13:33 MEGAN MARTINES-FNSERWHITNEY 1) Nutrition Notes Initial or Follow up Reassessment Current Diagnosis CKD (stage V CKD),Coronary Artery Disease,Heart Failure, Respiratory Failure Other Pertinent Diagnosis Large (L) pleural effusion Current Diet Regular + Ensure Clear daily ( M, W, F) Labs/Tests Na 131 K 5.2 BUN 45 Cr 7 Pertinent Medications Reviewed Height 5 ft 9 in Weight 57 kg [place] Body Weight (kg) 72.72 BMI 18.5 Subjective/Other Information Pt not in room at time of visit (11:08). He is scheduled for thoracentesis today. He has consumed 75% of meals. Despite being an HD pt, pt requests Regular diet and does not like Nepro shakes . Percent of energy/protein needs met: 100% energy 86% pro (without ONS) Burn Absent Trauma Absent #1 Nutrition Diagnosis Malnutrition Diagnosis Progress(for reassessment Continues documentation) Is patient on ventilator? No Is Patient Ambulatory and/or Out of Bed No REE-([facility]-confined to bed) 1590.492 Kcal/Kg value to use for calculation 35 Approximate Energy Requirements Using 1995 kcal/Kg Calculation Used for Recommendations Kcal/kg Additional Notes Pro needs 1.2-1.4g/k-80g/ day Fluid needs 1-1.5L/day Nutrition Intervention Change Diet Order: Continue current diet order Add Supplement/Snack (indicate name/kcal Ensure Clear 1 daily (M/W/F/ /protein ) Sun) Provides kCal: 240 Provides Protein (gm) 8 Goal #1 PO intake of meals plus ONS to meet 80-100% energy and pro needs Goal #2 Wt gain/maintenance Revisit per MD consult or patient Sign Off request:
[2018-12-26] MEDS ORDERED: CATAPRES PO SCH (19:28)
[2018-12-26 20:40] LABS: Hepatitis B Surface Antigen Non-Reactive (Negative)
[2018-12-26 22:37] LABS: Hepatitis C Virus Antibody Reactive (NonReactive)
[2018-12-27] MEDS: APRESOLINE IV PRN ×2 (04:55→16:12)
[2018-12-27] MEDS: CATAPRES PO SCH ×3 (06:29→22:11)
--- NOTE | 2018-12-27 09:37 | Progress Note ---
Assessment and Plan Recurrent Left pleural effusion s/p thoracentesis Chronic systolic heart failure Chronic and constant atypical chest pain DM type II PVD s/p left arm amputation Hypertension ESRD on hemodialysis Thrombocytopenia, chronic Hx of Nonischemic CMP EF 10-15% by echo 08/2018 Non-obstructive CAD [facility] 01/2017 revealed non-obstructive, single vessel disease of the proximal LAD recommended for medical therapy. normal perfusion MPI at [facility] 10/03/18. Permanent Atrial fibrillation rate controlled with metoprolol on low dose eliquis as an outpatient Recommendations: Dialysis for fluid management. Continue medical therapy for nonischemic cardiomyopathy, chronic systolic heart failure and permanent atrial fibrillation. Otherwise, conservative cardiac management. Subjective Date of service: 12/27/18 Principal diagnosis: L Pleural effusion Interval history: Patient is resting in bed comfortably. Afib with a well controlled ventricular rate on telemetry. Objective Vital Signs Temp Pulse Resp BP Pulse Ox 12/27/18 07:40 97.5 F L 70 12 149/88 99 12/27/18 06:29 62 165/98 12/27/18 06:22 20 165/98 12/27/18 04:55 58 L 170/105 12/27/18 04:04 98.0 F 58 L 18 170/105 98 12/26/18 23:57 98.0 F 18 139/93 12/26/18 21:57 60 135/86 12/26/18 21:55 60 135/86 12/26/18 19:20 52 L 12/26/18 19:06 98.0 F 53 L 18 135/86 99 12/26/18 19:01 100 12/26/18 17:43 97.1 F L 57 L 16 123/83 98 12/26/18 12:29 98.1 F 62 16 152/96 100 12/26/18 11:13 63 12/26/18 11:12 63 12/26/18 11:11 63 12/26/18 09:52 100 - Physical Examination General: No Apparent Distress HEENT: Positive: PERRL Neck: Positive: trachea midline Cardiac: Positive: irregularly irregular Lungs: Positive: Decreased Breath Sounds Neuro: Positive: Grossly Intact, Weakness Extremities: Absent: edema - Allied health notes Allied health notes reviewed: nursing
--- NOTE | 2018-12-27 09:44 | Progress Note ---
Assessment and Plan - Patient Problems (1) ESRD needing dialysis Current Visit: Yes Status: Chronic Plan to address problem: Maintain on a Monday inpatient hemodialysis schedule. (2) Pleural effusion Current Visit: Yes Status: Chronic Plan to address problem: Status post ultrasound-guided thoracentesis with removal of 700 mL of fluid. Pending fluid studies at this time. We'll continue to monitor. Respiratory status overall stable. (3) Hypertensive chronic kidney disease with stage 5 chronic kidney disease or end stage renal disease Current Visit: Yes Status: Chronic Plan to address problem: We'll monitor on his current regimen. (4) Type 2 diabetes mellitus with diabetic chronic kidney disease Current Visit: Yes Status: Chronic Qualifiers: Chronic kidney disease stage: on chronic dialysis Plan to address problem: Diabetes management per primary attending. (5) Anemia in CKD (chronic kidney disease) Current Visit: Yes Status: Acute Qualifiers: Chronic kidney disease stage: on chronic dialysis Qualified Code(s): N18.6 - End stage renal disease; D63.1 - Anemia in chronic kidney disease; Z99.2 - Dependence on renal dialysis Plan to address problem: Epogen with hemodialysis. Subjective Date of service: 12/27/18 Principal diagnosis: L Pleural effusion Interval history: No acute issues or complaints this morning. He underwent an ultrasound guided thoracentesis yesterday with removal of 700 mL of serosanguineous fluid. Fluid studies pending at this time. Chest x-ray did show resolution of left-sided pleural effusion post thoracentesis. Plan for hemodialysis session today prior studies if there is a Monday and patient schedule. Objective - Vital Signs Vital signs: Vital Signs - 12hr 12/26/18 12/26/18 12/26/18 21:55 21:57 23:57 Temperature 98.0 F Pulse Rate 60 60 Respiratory 18 Rate Blood Pressure 135/86 135/86 139/93 O2 Sat by Pulse Oximetry 12/27/18 12/27/18 12/27/18 04:04 04:55 06:22 Temperature 98.0 F Pulse Rate 58 L 58 L Respiratory 18 20 Rate Blood Pressure 170/105 170/105 165/98 O2 Sat by Pulse 98 Oximetry 12/27/18 12/27/18 06:29 07:40 Temperature 97.5 F L Pulse Rate 62 70 Respiratory 12 Rate Blood Pressure 165/98 149/88 O2 Sat by Pulse 99 Oximetry - General Appearance General appearance: cachectic, chronically ill, frail EENT: ATNC, PERRL Neck: no JVD Respiratory: Present: Wheezes Cardiology: regular, S1S2 Gastrointestinal: normal, normoactive bowel sounds Integumentary: no rash, warm and dry Neurologic: no focal deficit, no asterixis, alert and oriented x3 Musculoskeletal: other (-edema) Psychiatric: mood/affect appropriate, cooperative - Lab 12/25/18 05:49 12/26/18 05:33 Most recent lab results Calcium 8.9 mg/dL (8.4-10.2) 12/26/18 05:33 Magnesium 1.90 mg/dL (1.7-2.3) 12/25/18 05:49 - Imaging Chest x-ray: report reviewed, image reviewed - Allied health notes Allied health notes reviewed: nursing Medications & Allergies - Medications Allergies/Adverse Reactions: Allergies aspirin Allergy (Verified 03/16/17 01:25) Unknown stomach cramps pork derived (porcine) Allergy (Verified 03/16/17 01:27) Rash venom-honey bee [bee venom (honey bee)] Allergy (Verified 03/16/17 01:27) Anaphylaxis Pork/Porcine Containing Products Adverse Reaction (Severe, Verified 02/13/17 09:31) Nausea,VOMITING Home Medications: Home Medications Medication Instructions Recorded Confirmed Last Taken Type Acetaminophen [Acetaminophen TAB] 650 mg PO Q4H PRN tablet 05/05/18 12/24/18 09/21/18 Rx Apixaban [Eliquis] 2.5 mg PO Q12HR #60 tablet 09/05/18 12/24/18 09/21/18 Rx FLUoxetine HCL [Fluoxetine HCl] 40 mg PO QDAY #30 capsule 09/05/18 12/22/18 04/11/04 Rx Famotidine [Pepcid] 10 mg PO BID #15 tablet 09/05/18 12/22/18 09/21/18 Rx Fe Fumarate/FA/Mv, Min Comb#15 1 each PO QDAY #30 capsule 09/05/18 12/24/18 09/21/18 Rx [Hemocyte Plus] ISOSORBIDE MONOnitrate [Imdur ER] 30 mg PO QDAY #30 tablet 09/05/18 12/24/18 09/21/18 Rx Losartan [Cozaar] 100 mg PO QDAY 30 Days tablet 09/05/18 12/22/18 09/21/18 Rx amLODIPine [Norvasc] 10 mg PO DAILY #30 tablet 09/05/18 12/22/18 09/21/18 Rx hydrALAZINE [Apresoline TAB] 50 mg PO BID 11/06/18 12/22/18 Unknown History Mag Hydrox/Aluminum Hyd/Simeth 355 ml PO DAILY PRN 15 Days 11/08/18 12/22/18 Unknown Rx [Maalox Advanced Suspension] oral.susp Apixaban [Eliquis] 2.5 mg PO Q12HR #60 tablet 12/01/18 12/22/18 Unknown Rx AtorvaSTATin [Lipitor] 40 mg PO QHS #30 tablet 12/01/18 12/22/18 Unknown Rx Epoetin Prashant 10,000 Unit [Procrit] 10,000 unit SUB-Q KATERYNA PRN #30 vial 12/01/18 12/24/18 Unknown Rx ISOSORBIDE MONOnitrate [Imdur ER] 30 mg PO DAILY #30 tablet 12/01/18 12/22/18 Unknown Rx Metoprolol Xl [Metoprolol 100 mg PO QDAY #30 tablet 12/01/18 12/24/18 Unknown Rx SUCCINATE ER TAB] Sennosides/Docusate [Senokot S] 1 tab PO BID #20 tablet 12/01/18 12/22/18 Unknown Rx amLODIPine [Norvasc] 10 mg PO DAILY #30 tablet 12/01/18 12/24/18 Unknown Rx levoFLOXacin [Levaquin TAB] 500 mg PO QDAY #7 tablet 12/01/18 12/24/18 Unknown Rx metroNIDAZOLE [Flagyl] 500 mg PO Q8HR #21 tablet 12/01/18 12/24/18 Unknown Rx cloNIDine 0.3 mg PO ONCE 12/22/18 12/24/18 Unknown History Active Medications: Generic Name Dose Route Start Last Admin Trade Name Freq PRN Reason Stop Dose Admin Al Hydrox/Mg Hydrox/Simethicone 20 ml 12/22/18 10:00 Alum-Mag Hydrox-Simeth 240-799-87jn/5ml PO DAILY PRN Dyspepsia Amlodipine Besylate 10 mg 12/22/18 10:00 12/26/18 11:11 Norvasc PO 10 mg DAILY BEAN Administration Apixaban 2.5 mg 12/27/18 10:00 Eliquis PO Q12HR BEAN Protocol Atorvastatin Calcium 40 mg 12/22/18 22:00 12/26/18 21:54 Lipitor PO 40 mg QHS BEAN Administration Clonidine HCl 0.3 mg 12/26/18 22:00 12/27/18 06:29 Catapres PO 0.3 mg Q8HR BEAN Administration Diphenhydramine HCl 25 mg 12/22/18 11:23 12/23/18 12:04 Benadryl IV 25 mg KATERYNA PRN Administration Itching Diphenhydramine HCl 25 mg 12/23/18 20:22 12/26/18 05:44 Benadryl PO 25 mg Q6H PRN Administration Itching Epoetin Prashant 10,000 unit 12/22/18 07:28 12/25/18 15:30 Procrit SUB-Q 10,000 unit KATERYNA PRN Administration hemodialysis Famotidine 5 mg 12/22/18 10:00 12/26/18 21:55 Pepcid PO 5 mg BID BEAN Administration Fluoxetine HCl 40 mg 12/22/18 10:00 12/26/18 11:12 Prozac PO 40 mg QDAY BEAN Administration Hydralazine HCl 25 mg 12/22/18 10:00 12/26/18 21:55 Apresoline PO 25 mg BID BEAN Administration Hydralazine HCl 10 mg 12/22/18 07:31 12/27/18 04:55 Apresoline IV 10 mg Q4H PRN Administration Hypertension Sodium Chloride 100 mls @ 999 mls/hr 12/22/18 11:23 Nacl 0.9% IV KATERYNA PRN Hypotension Sodium Chloride 100 mls @ 999 mls/hr 12/25/18 09:09 Nacl 0.9% IV KATERYNA PRN Hypotension Isosorbide Mononitrate 30 mg 12/22/18 10:00 12/26/18 11:12 Imdur PO 30 mg QDAY BEAN Administration Losartan Potassium 100 mg 12/22/18 10:00 12/26/18 11:12 Cozaar PO 100 mg QDAY BEAN Administration Metoprolol Succinate 100 mg 12/22/18 10:00 12/26/18 11:13 Toprol Xl PO 100 mg QDAY BEAN Administration Morphine Sulfate 2 mg 12/25/18 02:36 12/26/18 21:57 Morphine IV 2 mg Q6H PRN Administration Pain , Severe (7-10) Multivitamins/Iron 1 each 12/22/18 10:00 12/26/18 11:13 Hemocyte Plus PO 1 each QDAY BEAN Administration Oxycodone/Acetaminophen 1 tab 12/22/18 17:41 12/26/18 11:11 Percocet 5/325 PO 1 tab Q6H PRN Administration Pain, Moderate (4-6) Senna/Docusate Sodium 1 tab 12/22/18 10:00 12/26/18 21:55 Senokot S PO 1 tab BID BEAN Administration
[2018-12-27] MEDS: APRESOLINE PO SCH ×2 (10:31→22:13)
[2018-12-27] MEDS: COZAAR PO SCH (10:31)
[2018-12-27] MEDS: HEMOCYTE PLUS PO SCH (10:31)
[2018-12-27] MEDS: ELIQUIS PO SCH ×2 (10:31→22:10)
[2018-12-27] MEDS: IMDUR PO SCH (10:32)
[2018-12-27] MEDS: NORVASC PO SCH (10:32)
[2018-12-27] MEDS: PROzac PO SCH (10:32)
[2018-12-27] MEDS: PEPCID PO SCH ×2 (10:32→22:10)
[2018-12-27] MEDS: TOPROL XL PO SCH (10:33)
[2018-12-27] MEDS: SENOKOT S PO SCH ×2 (10:33→22:10)
[2018-12-27] MEDS ORDERED: NACL 0.9 (PRIMING MACHINE ONLY DIALYSIS) MC ONE (10:43)
[2018-12-27] MEDS: MORPHINE IV PRN ×2 (10:53→17:37)
[2018-12-27] MEDS: BENADRYL IV PRN ×2 (10:54→17:40)
--- NOTE | 2018-12-27 12:54 | Progress Note ---
Assessment and Plan Imp: 1. L pleural effusion, transudative previously 2. NICMP 3. Chronic systolic CHF 4. ESRD 5. Pleurisy 6. Pancytopenia Rec: 1. Fluid could be related to CHF or 3rd spacing due to poor nutrition; Albumin and Prealbumin are low; consider increasing fluid removal with HD if tolerated; recommend improving nutritional status and optimizing BP 2. Consider hematology eval. for pancytopenia 3. F/u Pleural fluid studies Plan of care reviewed w/ patient, he understands/agrees Subjective Date of service: 12/27/18 Principal diagnosis: L Pleural effusion Interval history: No events. On 2L NC on HD. Awake, alert. SOB better after thoracentesis on the L. No chest pain currently. 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 Active Medications Al Hydrox/Mg Hydrox/Simethicone (Alum-Mag Hydrox-Simeth [phone]/5ml) 20 ml PO DAILY PRN PRN Reason: Dyspepsia Amlodipine Besylate (Norvasc) 10 mg PO DAILY [facility] Last Admin: 12/27/18 10:32 Dose: Not Given Documented by: Apixaban (Eliquis) 2.5 mg PO Q12HR BEAN; Protocol Last Admin: 12/27/18 10:31 Dose: Not Given Documented by: Atorvastatin Calcium (Lipitor) 40 mg PO QHS BEAN Last Admin: 12/26/18 21:54 Dose: 40 mg Documented by: Clonidine HCl (Catapres) 0.3 mg PO Q8HR BEAN Last Admin: 12/27/18 06:29 Dose: 0.3 mg Documented by: Diphenhydramine HCl (Benadryl) 25 mg IV KATERYNA PRN PRN Reason: Itching Last Admin: 12/27/18 10:54 Dose: 25 mg Documented by: Diphenhydramine HCl (Benadryl) 25 mg PO Q6H PRN PRN Reason: Itching Last Admin: 12/26/18 05:44 Dose: 25 mg Documented by: Epoetin Prashant (Procrit) 10,000 unit SUB-Q KATERYNA PRN PRN Reason: hemodialysis Last Admin: 12/25/18 15:30 Dose: 10,000 unit Documented by: Famotidine (Pepcid) 5 mg PO BID [facility] Last Admin: 12/27/18 10:32 Dose: Not Given Documented by: Fluoxetine HCl (Prozac) 40 mg PO QDAY [facility] Last Admin: 12/27/18 10:32 Dose: Not Given Documented by: Hydralazine HCl (Apresoline) 25 mg PO BID [facility] Last Admin: 12/27/18 10:31 Dose: Not Given Documented by: Hydralazine HCl (Apresoline) 10 mg IV Q4H PRN PRN Reason: Hypertension Last Admin: 12/27/18 04:55 Dose: 10 mg Documented by: Sodium Chloride (Nacl 0.9%) 100 mls @ 999 mls/hr IV KATERYNA PRN PRN Reason: Hypotension Sodium Chloride (Nacl 0.9%) 100 mls @ 999 mls/hr IV KATERYNA PRN PRN Reason: Hypotension Isosorbide Mononitrate (Imdur) 30 mg PO QDAY [facility] Last Admin: 12/27/18 10:32 Dose: Not Given Documented by: Losartan Potassium (Cozaar) 100 mg PO QDAY [facility] Last Admin: 12/27/18 10:31 Dose: Not Given Documented by: Metoprolol Succinate (Toprol Xl) 100 mg PO QDAY [facility] Last Admin: 12/27/18 10:33 Dose: Not Given Documented by: Morphine Sulfate (Morphine) 2 mg IV Q6H PRN PRN Reason: Pain , Severe (7-10) Last Admin: 12/27/18 10:53 Dose: 2 mg Documented by: Multivitamins/Iron (Hemocyte Plus) 1 each PO QDAY [facility] Last Admin: 12/27/18 10:31 Dose: Not Given Documented by: Oxycodone/Acetaminophen (Percocet 5/325) 1 tab PO Q6H PRN PRN Reason: Pain, Moderate (4-6) Last Admin: 12/26/18 11:11 Dose: 1 tab Documented by: Senna/Docusate Sodium (Senokot S) 1 tab PO BID [facility] Last Admin: 12/27/18 10:33 Dose: Not Given Documented by: Objective Vital Signs - 12hr 12/27/18 12/27/18 12/27/18 04:04 04:55 06:22 Temperature 98.0 F Pulse Rate 58 L 58 L Respiratory 18 20 Rate Blood Pressure 170/105 170/105 165/98 O2 Sat by Pulse 98 Oximetry 12/27/18 12/27/18 12/27/18 06:29 07:40 08:00 Temperature 97.5 F L Pulse Rate 62 70 71 Respiratory 12 Rate Blood Pressure 165/98 149/88 O2 Sat by Pulse 99 Oximetry 12/27/18 12/27/18 12/27/18 10:30 11:00 11:15 Temperature 97.8 F Pulse Rate 66 62 58 L Respiratory 18 Rate Blood Pressure 160/108 157/104 161/104 O2 Sat by Pulse Oximetry 12/27/18 12/27/18 12/27/18 11:30 11:45 12:00 Temperature Pulse Rate 66 73 64 Respiratory Rate Blood Pressure 149/91 152/98 128/93 O2 Sat by Pulse Oximetry 12/27/18 12:15 Temperature Pulse Rate 54 L Respiratory Rate Blood Pressure 159/92 O2 Sat by Pulse Oximetry Constitutional: no acute distress, alert, other (cachectic) Eyes: non-icteric ENT: oropharynx moist Neck: supple Effort: normal Ascultation: Bilateral: clear (anteriorly) Cardiovascular: irregular rhythm (ir/ir, no mrg) Gastrointestinal: normoactive bowel sounds, soft, non-tender, non-distended Integumentary: normal Extremities: no cyanosis, no edema, pink and warm Neurologic: normal mental status, non-focal exam, pupils equal and round, CN II- XII normal Psychiatric: mood appropriate, affect normal CBC and BMP: 12/25/18 05:49 12/26/18 05:33 ABG, PT/INR, D-dimer: PT/INR, D-dimer PT 17.0 Sec. (12.2-14.9) H 12/22/18 04:12 INR 1.42 (0.87-1.13) H 12/22/18 04:12 1122.85 ng/mlDDU (0-234) H 12/22/18 04:12 Abnormal lab findings: Abnormal Labs 12/22/18 12/22/18 12/22/18 04:12 04:12 04:12 WBC 2.8 L RBC 2.92 L Hgb 9.6 L Hct 29.6 L MCV 101 H MCH 33 H RDW 16.9 H Plt Count 120 L [place] % (Auto) 10.5 H Lymph # 0.7 L Seg Neutrophils # 1.7 L PT 17.0 H INR 1.42 H D-Dimer 1122.85 H Sodium Potassium Chloride BUN 42 H Creatinine 7.6 H Glucose 118 H Total Creatine Kinase CK-MB (CK-2) Rel Index Troponin T 0.147 H* NT-Pro-B Natriuret Pep > 23275 H Albumin Prealbumin LDL Cholesterol Direct 34 L Hepatitis C Antibody 12/22/18 12/23/18 12/23/18 06:37 04:14 04:14 WBC RBC Hgb Hct MCV MCH RDW Plt Count [place] % (Auto) Lymph # Seg Neutrophils # PT INR D-Dimer Sodium 135 L Potassium Chloride BUN 24 H Creatinine 4.7 H Glucose Total Creatine Kinase 46 L CK-MB (CK-2) Rel Index 5.8 H Troponin T 0.144 H* 0.177 H* D NT-Pro-B Natriuret Pep Albumin Prealbumin LDL Cholesterol Direct Hepatitis C Antibody 12/23/18 12/25/18 12/25/18 12:21 05:49 05:49 WBC 3.3 L RBC 3.19 L Hgb 10.4 L Hct 31.6 L MCV 99 H MCH 33 H RDW 17.4 H Plt Count 119 L [place] % (Auto) 7.8 H Lymph # 0.9 L Seg Neutrophils # PT INR D-Dimer Sodium 131 L Potassium 5.2 H Chloride 93.6 L BUN 45 H Creatinine 7.0 H Glucose Total Creatine Kinase CK-MB (CK-2) Rel Index Troponin T 0.179 H* NT-Pro-B Natriuret Pep Albumin Prealbumin LDL Cholesterol Direct Hepatitis C Antibody 12/26/18 12/26/18 12/26/18 05:33 05:33 19:31 WBC RBC Hgb Hct MCV MCH RDW Plt Count [place] % (Auto) Lymph # Seg Neutrophils # PT INR D-Dimer Sodium 131 L Potassium Chloride 95.4 L BUN 24 H Creatinine 4.8 H Glucose 106 H Total Creatine Kinase CK-MB (CK-2) Rel Index Troponin T NT-Pro-B Natriuret Pep Albumin 3.1 L Prealbumin 0.139 L LDL Cholesterol Direct Hepatitis C Antibody Reactive A Chest x-ray: report reviewed, image reviewed (resolution of L effusion, + cardiomegaly, + atelectasis or scarring on the L) Allied health notes reviewed: nursing
--- NOTE | 2018-12-27 12:59 | Progress Note ---
Assessment and Plan - Patient Problems (1) ESRD needing dialysis Current Visit: Yes Status: Chronic Plan to address problem: Patient tolerating hemodialysis well. Schedule again today to remove more fluid. (2) Pleural effusion Current Visit: Yes Status: Chronic Plan to address problem: Patient status post thoracentesis. Pulmonology following was therapeutic as well. Body fluid culture pending (3) Type 2 diabetes mellitus with diabetic chronic kidney disease Current Visit: Yes Status: Chronic Qualifiers: Chronic kidney disease stage: on chronic dialysis Plan to address problem: Optimal control of blood glucose. (4) Acute on chronic systolic heart failure Current Visit: No Status: Acute Plan to address problem: At present suboptimal control of systolic heart failure secondary to volume overload and end-stage renal disease. Patient continues dialysis this should continue to improve. 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 Nonoliguric. (5) Anemia Current Visit: No Status: Acute Qualifiers: Chronic kidney disease stage: on chronic dialysis Plan to address problem: Secondary to chronic disease also stable. (6) Atrial fibrillation with rapid ventricular response Current Visit: No Status: Acute Plan to address problem: Patient rate is controlled. We'll place patient back on elaquis after thorace ntesis. (7) HTN (hypertension) Current Visit: No Status: Chronic Qualifiers: Hypertension type: essential hypertension Qualified Code(s): I10 - Essential (primary) hypertension Plan to address problem: Fair control with current antihypertensive agents. Amlodipine losartan and metoprolol. (8) Acute and chronic respiratory failure with hypoxia Current Visit: Yes Status: Acute Plan to address problem: Patient respiratory failure secondary to volume overload pleural effusion and underlying congestive heart failure with ejection fraction of 10-15%. Patient has improved status post thoracentesis and ultrafiltration with hemodialysis. Pulmonology and neurology following. Discharge planning 1-2 days. History Interval history: Patient 71-year-old with a history of end-stage renal disease on hemodialysis congestive heart failure atrial fibrillation coronary artery disease posttraumatic stress disorder and hypertension. States today he feels pretty good. Aware he scheduled to go to dialysis today. States he is breathing better after thoracentesis. Hospitalist Physical - Constitutional Vitals: Temp Pulse Resp BP Pulse Ox 97.8 F 54 L 18 159/92 99 12/27/18 10:30 12/27/18 12:15 12/27/18 10:30 12/27/18 12:15 12/27/18 07:40 General appearance: Present: no acute distress, well-nourished - EENT Eyes: Present: PERRL, EOM intact, scleral icterus. Absent: miosis, mydriasis, discharge ENT: hearing intact, clear oral mucosa, poor dentition - Neck Neck: Present: supple, normal ROM - Respiratory Respiratory effort: normal Respiratory: bilateral: diminished - Cardiovascular Rhythm: regular - Extremities Extremities: no ischemia, pulses intact, pulses symmetrical, No edema, normal temperature, normal color Peripheral Pulses: within normal limits - Abdominal General gastrointestinal: soft, non-tender, non-distended, normal bowel sounds - Integumentary Integumentary: Present: clear, warm, dry - Psychiatric Psychiatric: appropriate mood/affect - Neurologic Neurologic: CNII-XII intact Results - Labs CBC & Chem 7: 12/25/18 05:49 12/26/18 05:33 Labs: Laboratory Last Values WBC 3.3 K/mm3 (4.5-11.0) L 12/25/18 05:49 RBC 3.19 M/mm3 (3.65-5.03) L 12/25/18 05:49 Hgb 10.4 gm/dl (11.8-15.2) L 12/25/18 05:49 Hct 31.6 % (35.5-45.6) L 12/25/18 05:49 MCV 99 fl (84-94) H 12/25/18 05:49 MCH 33 pg (28-32) H 12/25/18 05:49 MCHC 33 % (32-34) 12/25/18 05:49 RDW 17.4 % (13.2-15.2) H 12/25/18 05:49 Plt Count 119 K/mm3 (140-440) L 12/25/18 05:49 Lymph % (Auto) 28.4 % (13.4-35.0) 12/25/18 05:49 [place] % (Auto) 7.8 % (0.0-7.3) H 12/25/18 05:49 Eos % (Auto) 3.8 % (0.0-4.3) 12/25/18 05:49 Baso % (Auto) 0.8 % (0.0-1.8) 12/25/18 05:49 Lymph # 0.9 K/mm3 (1.2-5.4) L 12/25/18 05:49 [place] # 0.3 K/mm3 (0.0-0.8) 12/25/18 05:49 Eos # 0.1 K/mm3 (0.0-0.4) 12/25/18 05:49 Baso # 0.0 K/mm3 (0.0-0.1) 12/25/18 05:49 Seg Neutrophils % 59.2 % (40.0-70.0) 12/25/18 05:49 Seg Neutrophils # 2.0 K/mm3 (1.8-7.7) 12/25/18 05:49 PT 17.0 Sec. (12.2-14.9) H 12/22/18 04:12 INR 1.42 (0.87-1.13) H 12/22/18 04:12 APTT 32.4 Sec. (24.2-36.6) 12/22/18 04:12 1122.85 ng/mlDDU (0-234) H 12/22/18 04:12 Sodium 131 mmol/L (137-145) L 12/26/18 05:33 Potassium 4.1 mmol/L (3.6-5.0) D 12/26/18 05:33 Chloride 95.4 mmol/L (98-107) L 12/26/18 05:33 Carbon Dioxide 25 mmol/L (22-30) 12/26/18 05:33 15 mmol/L 12/26/18 05:33 BUN 24 mg/dL (9-20) H 12/26/18 05:33 4.8 mg/dL (0.8-1.5) H 12/26/18 05:33 Estimated GFR 15 ml/min 12/26/18 05:33 5 % 12/26/18 05:33 Glucose 106 mg/dL (75-100) H 12/26/18 05:33 Calcium 8.9 mg/dL (8.4-10.2) 12/26/18 05:33 Magnesium 1.90 mg/dL (1.7-2.3) 12/25/18 05:49 113 units/L (55-170) 12/23/18 12:21 CK-MB (CK-2) 3.5 ng/mL (0.0-4.0) 12/23/18 12:21 CK-MB (CK-2) Rel Index 3.0 (0-4) 12/23/18 12:21 0.179 ng/mL (0.00-0.029) H* 12/23/18 12:21 NT-Pro-B Natriuret Pep > 23989 pg/mL (0-900) H 12/22/18 04:12 3.1 g/dL (3.9-5) L 12/26/18 05:33 0.139 g/L (0.200-0.400) L 12/26/18 05:33 Triglycerides 53 mg/dL (2-149) 12/22/18 04:12 Cholesterol 87 mg/dL (50-199) 12/22/18 04:12 34 mg/dL (50-130) L 12/22/18 04:12 47 mg/dL (40-59) 12/22/18 04:12 1.85 % 12/22/18 04:12 Fluid Type Pleural 12/26/18 Unknown Fluid Color Straw 12/26/18 Unknown Fluid Appearance Clear 12/26/18 Unknown Fluid WBC 6 /mm3 12/26/18 Unknown Fluid RBC 7 /mm3 12/26/18 Unknown Fluid Seg Neutrophils 35.0 % 12/26/18 Unknown Fluid Lymphocytes 55.0 % 12/26/18 Unknown Fluid Reactive Lymphs 0 % 12/26/18 Unknown Fluid Monocytes 9.0 % 12/26/18 Unknown Fluid Eosinophils 1.0 % 12/26/18 Unknown Fluid Basophils 0 % 12/26/18 Unknown Hepatitis A IgM Ab Non-reactive (NonReactive) 12/26/18 19:31 Hep Bs Antigen Non-reactive (Negative) 12/26/18 19:31 Hep B Core IgM Ab Non-reactive (NonReactive) 12/26/18 19:31 Reactive (NonReactive) A 12/26/18 19:31 Active Medications - Current Medications Current Medications: Generic Name Dose Route Start Last Admin Trade Name Freq PRN Reason Stop Dose Admin Al Hydrox/Mg Hydrox/Simethicone 20 ml 12/22/18 10:00 Alum-Mag Hydrox-Simeth [phone]/5ml PO DAILY PRN Dyspepsia Amlodipine Besylate 10 mg 12/22/18 10:00 12/27/18 10:32 Norvasc PO Not Given DAILY [facility] Apixaban 2.5 mg 12/27/18 10:00 12/27/18 10:31 Eliquis PO Not Given Q12HR [facility] Protocol Atorvastatin Calcium 40 mg 12/22/18 22:00 12/26/18 21:54 Lipitor PO 40 mg QHS BEAN Administration Clonidine HCl 0.3 mg 12/26/18 22:00 12/27/18 06:29 Catapres PO 0.3 mg Q8HR BEAN Administration Diphenhydramine HCl 25 mg 12/22/18 11:23 12/27/18 10:54 Benadryl IV 25 mg KATERYNA PRN Administration Itching Diphenhydramine HCl 25 mg 12/23/18 20:22 12/26/18 05:44 Benadryl PO 25 mg Q6H PRN Administration Itching Epoetin Prashant 10,000 unit 12/22/18 07:28 12/25/18 15:30 Procrit SUB-Q 10,000 unit KATERYNA PRN Administration hemodialysis Famotidine 5 mg 12/22/18 10:00 12/27/18 10:32 Pepcid PO Not Given BID [facility] Fluoxetine HCl 40 mg 12/22/18 10:00 12/27/18 10:32 Prozac PO Not Given QDAY [facility] Hydralazine HCl 25 mg 12/22/18 10:00 12/27/18 10:31 Apresoline PO Not Given BID [facility] Hydralazine HCl 10 mg 12/22/18 07:31 12/27/18 04:55 Apresoline IV 10 mg Q4H PRN Administration Hypertension Sodium Chloride 100 mls @ 999 mls/hr 12/22/18 11:23 Nacl 0.9% IV KATERYNA PRN Hypotension Sodium Chloride 100 mls @ 999 mls/hr 12/25/18 09:09 Nacl 0.9% IV KATERYNA PRN Hypotension Isosorbide Mononitrate 30 mg 12/22/18 10:00 12/27/18 10:32 Imdur PO Not Given QDAY [facility] Losartan Potassium 100 mg 12/22/18 10:00 12/27/18 10:31 Cozaar PO Not Given QDAY [facility] Metoprolol Succinate 100 mg 12/22/18 10:00 12/27/18 10:33 Toprol Xl PO Not Given QDAY [facility] Morphine Sulfate 2 mg 12/25/18 02:36 12/27/18 10:53 Morphine IV 2 mg Q6H PRN Administration Pain , Severe (7-10) Multivitamins/Iron 1 each 12/22/18 10:00 12/27/18 10:31 Hemocyte Plus PO Not Given QDAY [facility] Oxycodone/Acetaminophen 1 tab 12/22/18 17:41 12/26/18 11:11 Percocet 5/325 PO 1 tab Q6H PRN Administration Pain, Moderate (4-6) Senna/Docusate Sodium 1 tab 12/22/18 10:00 12/27/18 10:33 Senokot S PO Not Given BID [facility] Nutrition/Malnutrition Assess - Dietary Evaluation Nutrition/Malnutrition Findings: Nutrition Notes Start: 12/23/18 14:30 Freq: Status: Active Protocol: Document 12/25/18 13:27 MEGAN (Rec: 12/25/18 13:33 MEGAN JANE [email or web address]) Nutrition Notes Initial or Follow up Reassessment Current Diagnosis CKD (stage V CKD),Coronary Artery Disease,Heart Failure, Respiratory Failure Other Pertinent Diagnosis Large (L) pleural effusion Current Diet Regular + Ensure Clear daily ( M, W, F) Labs/Tests Na 131 K 5.2 BUN 45 Cr 7 Pertinent Medications Reviewed Height 5 ft 9 in Weight 57 kg [place] Body Weight (kg) 72.72 BMI 18.5 Subjective/Other Information Pt not in room at time of visit (11:08). He is scheduled for thoracentesis today. He has consumed 75% of meals. Despite being an HD pt, pt requests Regular diet and does not like Nepro shakes . Percent of energy/protein needs met: 100% energy 86% pro (without ONS) Burn Absent Trauma Absent #1 Nutrition Diagnosis Malnutrition Diagnosis Progress(for reassessment Continues documentation) Is patient on ventilator? No Is Patient Ambulatory and/or Out of Bed No REE-([facility]-confined to bed) 1590.492 Kcal/Kg value to use for calculation 35 Approximate Energy Requirements Using 1995 kcal/Kg Calculation Used for Recommendations Kcal/kg Additional Notes Pro needs 1.2-1.4g/k-80g/ day Fluid needs 1-1.5L/day Nutrition Intervention Change Diet Order: Continue current diet order Add Supplement/Snack (indicate name/kcal Ensure Clear 1 daily (M/W/F/ /protein ) Sun) Provides kCal: 240 Provides Protein (gm) 8 Goal #1 PO intake of meals plus ONS to meet 80-100% energy and pro needs Goal #2 Wt gain/maintenance Revisit per MD consult or patient Sign Off request:
[2018-12-27] MEDS: PROCRIT SUB-Q PRN (13:46)
--- NOTE | 2018-12-27 15:45 | Consultation ---
History of Present Illness - Reason for Consult Consult date: 12/27/18 Pancytopenia, covering DR Box/KERVIN. - History of Present Illness Thank you for this consult,patient seen/examined, resting in bed, I am covering DR Box/KERVIN.Kindly asked to see for reasons of pancytopenia. Patient has mult iple medical problems, shawn cardiac, including A .fib,for which he s on Eliquis.He has ESRD, on HD, multiple limb amputations. Meds reviewed.He is s/p thoracenthesis, with serosangeonous fluid.Patient has OLIVIA with very poor EF 15%.Please see w/up oders.will continue to follow you. Past History Past Medical History: atrial fib, dialysis, ESRD, heart failure, hypertension, hyperlipidemia Past Surgical History: Other (left arm amputation, left upper extremity clot removal, multiple finger amputations, back and spine surgery) Social history: lives with family. denies: smoking, alcohol abuse, prescription drug abuse Family history: hypertension Medications and Allergies Allergies Allergy/AdvReac Type Severity Reaction Status Date / Time aspirin Allergy Unknown Verified 03/16/17 01:25 pork derived (porcine) Allergy Rash Verified 03/16/17 01:27 venom-honey bee Allergy Anaphylaxis Verified 03/16/17 01:27 [bee venom (honey bee)] Pork/Porcine Containing AdvReac Severe Nausea,VOMI Verified 02/13/17 09:31 Products TING Home Medications Medication Instructions Recorded Confirmed Last Taken Type Acetaminophen [Acetaminophen TAB] 650 mg PO Q4H PRN tablet 05/05/18 12/24/18 0 09/21/18 Rx Apixaban [Eliquis] 2.5 mg PO Q12HR #60 tablet 09/05/18 12/24/18 09/21/18 Rx FLUoxetine HCL [Fluoxetine HCl] 40 mg PO QDAY #30 capsule 09/05/18 12/22/18 09/21/18 Rx Famotidine [Pepcid] 10 mg PO BID #15 tablet 09/05/18 12/22/18 09/21/18 Rx Fe Fumarate/FA/Mv, Min Comb#15 1 each PO QDAY #30 capsule 09/05/18 12/24/18 09/21/18 Rx [Hemocyte Plus] ISOSORBIDE MONOnitrate [Imdur ER] 30 mg PO QDAY #30 tablet 09/05/18 12/24/18 09/21/18 Rx Losartan [Cozaar] 100 mg PO QDAY 30 Days tablet 09/05/18 12/22/18 09/21/18 Rx amLODIPine [Norvasc] 10 mg PO DAILY #30 tablet 09/05/18 12/22/18 09/21/18 Rx hydrALAZINE [Apresoline TAB] 50 mg PO BID 11/06/18 12/22/18 Unknown History Mag Hydrox/Aluminum Hyd/Simeth 355 ml PO DAILY PRN 15 Days 11/08/18 12/22/18 Unknown Rx [Maalox Advanced Suspension] oral.susp Apixaban [Eliquis] 2.5 mg PO Q12HR #60 tablet 12/01/18 12/22/18 Unknown Rx AtorvaSTATin [Lipitor] 40 mg PO QHS #30 tablet 12/01/18 12/22/18 Unknown Rx Epoetin Prashant 10,000 Unit [Procrit] 10,000 unit SUB-Q KATERYNA PRN #30 vial 12/01/18 12/24/18 Unknown Rx ISOSORBIDE MONOnitrate [Imdur ER] 30 mg PO DAILY #30 tablet 12/01/18 12/22/18 Unknown Rx Metoprolol Xl [Metoprolol 100 mg PO QDAY #30 tablet 12/01/18 12/24/18 Unknown Rx SUCCINATE ER TAB] Sennosides/Docusate [Senokot S] 1 tab PO BID #20 tablet 12/01/18 12/22/18 Unknown Rx amLODIPine [Norvasc] 10 mg PO DAILY #30 tablet 12/01/18 12/24/18 Unknown Rx levoFLOXacin [Levaquin TAB] 500 mg PO QDAY #7 tablet 12/01/18 12/24/18 Unknown Rx metroNIDAZOLE [Flagyl] 500 mg PO Q8HR #21 tablet 12/01/18 12/24/18 Unknown Rx cloNIDine 0.3 mg PO ONCE 12/22/18 12/24/18 Unknown History Active Meds: Active Medications Al Hydrox/Mg Hydrox/Simethicone (Alum-Mag Hydrox-Simeth [id number]/5ml) 20 ml PO DAILY PRN PRN Reason: Dyspepsia Amlodipine Besylate (Norvasc) 10 mg PO DAILY BEAN Last Admin: 12/27/18 10:32 Dose: Not Given Documented by: Apixaban (Eliquis) 2.5 mg PO Q12HR [facility]; Protocol Last Admin: 12/27/18 10:31 Dose: Not Given Documented by: Atorvastatin Calcium (Lipitor) 40 mg PO QHS [facility] Last Admin: 12/26/18 21:54 Dose: 40 mg Documented by: Clonidine HCl (Catapres) 0.3 mg PO Q8HR [facility] Last Admin: 12/27/18 14:45 Dose: 0.3 mg Documented by: Diphenhydramine HCl (Benadryl) 25 mg IV KATERYNA PRN PRN Reason: Itching Last Admin: 12/27/18 10:54 Dose: 25 mg Documented by: Diphenhydramine HCl (Benadryl) 25 mg PO Q6H PRN PRN Reason: Itching Last Admin: 12/26/18 05:44 Dose: 25 mg Documented by: Epoetin Prashant (Procrit) 10,000 unit SUB-Q KATERYNA PRN PRN Reason: hemodialysis Last Admin: 12/27/18 13:46 Dose: 10,000 unit Documented by: Famotidine (Pepcid) 5 mg PO BID [facility] Last Admin: 12/27/18 10:32 Dose: Not Given Documented by: Fluoxetine HCl (Prozac) 40 mg PO QDAY [facility] Last Admin: 12/27/18 10:32 Dose: Not Given Documented by: Hydralazine HCl (Apresoline) 25 mg PO BID [facility] Last Admin: 12/27/18 10:31 Dose: Not Given Documented by: Hydralazine HCl (Apresoline) 10 mg IV Q4H PRN PRN Reason: Hypertension Last Admin: 12/27/18 04:55 Dose: 10 mg Documented by: Sodium Chloride (Nacl 0.9%) 100 mls @ 999 mls/hr IV KATERYNA PRN PRN Reason: Hypotension Sodium Chloride (Nacl 0.9%) 100 mls @ 999 mls/hr IV KATERYNA PRN PRN Reason: Hypotension Isosorbide Mononitrate (Imdur) 30 mg PO QDAY [facility] Last Admin: 12/27/18 10:32 Dose: Not Given Documented by: Losartan Potassium (Cozaar) 100 mg PO QDAY [facility] Last Admin: 12/27/18 10:31 Dose: Not Given Documented by: Metoprolol Succinate (Toprol Xl) 100 mg PO QDAY [facility] Last Admin: 12/27/18 10:33 Dose: Not Given Documented by: Morphine Sulfate (Morphine) 2 mg IV Q6H PRN PRN Reason: Pain , Severe (7-10) Last Admin: 12/27/18 10:53 Dose: 2 mg Documented by: Multivitamins/Iron (Hemocyte Plus) 1 each PO QDAY [facility] Last Admin: 12/27/18 10:31 Dose: Not Given Documented by: Oxycodone/Acetaminophen (Percocet 5/325) 1 tab PO Q6H PRN PRN Reason: Pain, Moderate (4-6) Last Admin: 12/26/18 11:11 Dose: 1 tab Documented by: Senna/Docusate Sodium (Senokot S) 1 tab PO BID [facility] Last Admin: 12/27/18 10:33 Dose: Not Given Documented by: Exam - Constitutional Vitals: Temp Pulse Resp BP Pulse Ox 98.0 F 61 16 144/100 99 12/27/18 13:45 12/27/18 15:14 12/27/18 13:45 12/27/18 14:45 12/27/18 07:40 General appearance: Present: mild distress, well-nourished - EENT Eyes: Present: PERRL ENT: hearing intact, clear oral mucosa - Neck Neck: Present: supple, normal ROM - Respiratory Respiratory: bilateral: diminished - Cardiovascular Heart Sounds: Present: S1 & S2. Absent: rub, click - Extremities Extremities: pulses symmetrical, No edema Peripheral Pulses: within normal limits - Abdominal General gastrointestinal: Present: soft, non-tender, non-distended, normal bowel sounds Male genitourinary: Present: deferred - Rectal Rectal Exam: deferred - Integumentary Integumentary: Present: clear, warm, dry - Musculoskeletal Musculoskeletal: gait normal, strength equal bilaterally - Psychiatric Psychiatric: appropriate mood/affect, intact judgment & insight - Neurologic Neurologic: CNII-XII intact, moves all extremities Results - Labs CBC & Chem 7: 12/25/18 05:49 12/26/18 05:33 Labs: Abnormal lab results 12/26/18 Range/Units 19:31 Hepatitis C Antibody Reactive A (NonReactive) Assessment and Plan - Patient Problems (1) Anemia in CKD (chronic kidney disease) Current Visit: Yes Status: Acute Qualifiers: Chronic kidney disease stage: on chronic dialysis Qualified Code(s): N18.6 - End stage renal disease; D63.1 - Anemia in chronic kidney disease; Z99.2 - Dependence on renal dialysis (2) Thrombocytopenia Current Visit: Yes Status: Acute Plan to address problem: See w/up orders. (3) Nonischemic cardiomyopathy Current Visit: Yes Status: Acute Plan to address problem: Follow cardiology. (4) Anticoagulant long-term use Current Visit: Yes Status: Acute Plan to address problem: Continue as current
[2018-12-28] MEDS: CATAPRES PO SCH ×3 (06:08→21:37)
[2018-12-28] MEDS: MORPHINE IV PRN ×3 (06:15→21:42)
[2018-12-28 06:19] LABS: Iron 59 ug/dL (49-181); Total Iron Binding Capacity 180 mcg/dL (250-450)
--- NOTE | 2018-12-28 07:59 | Progress Note ---
Assessment and Plan Assessment and plan: ESRD needing dialysis Patient tolerating hemodialysis well. Continue per nephrology Pleural effusion Patient status post thoracentesis. Pulmonology following was therapeutic as well. Body fluid culture pending Type 2 diabetes mellitus with diabetic chronic kidney disease Optimal control of blood glucose. Acute on chronic systolic heart failure Continues dialysis for volume control. 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 Nonoliguric. Anemia Secondary to chronic disease. Stable. Atrial fibrillation with rapid ventricular response Patient rate is controlled. Resume eliquis s/p thoracentesis. HTN (hypertension) Fair control with current antihypertensive agents. Amlodipine losartan and metoprolol. Acute and chronic respiratory failure with hypoxia Patient respiratory failure secondary to volume overload pleural effusion and underlying congestive heart failure with ejection fraction of 10-15%. Patient has improved status post thoracentesis and ultrafiltration with hemodialysis. Pulmonology and neurology following. Discharge planning 1-2 days. History Interval history: No new issues overnight. Hospitalist Physical - Constitutional Vitals: Temp Pulse Resp BP Pulse Ox 98.2 F 52 L 16 169/97 100 12/28/18 07:50 12/28/18 07:50 12/28/18 07:50 12/28/18 07:50 12/28/18 07:50 General appearance: Present: no acute distress, cachectic - EENT Eyes: Present: PERRL, EOM intact ENT: hearing intact, clear oral mucosa, dentition normal - Neck Neck: Present: supple, normal ROM - Respiratory Respiratory effort: normal Respiratory: bilateral: CTA - Cardiovascular Rhythm: regular Heart Sounds: Present: S1 & S2. Absent: gallop, rub - Extremities Extremities: no ischemia, No edema, Full ROM - Abdominal General gastrointestinal: soft, non-tender, non-distended, normal bowel sounds - Integumentary Integumentary: Present: clear, warm, dry - Neurologic Neurologic: CNII-XII intact, moves all extremities Results - Labs CBC & Chem 7: 12/25/18 05:49 12/26/18 05:33 Labs: Laboratory Last Values WBC 3.3 K/mm3 (4.5-11.0) L 12/25/18 05:49 RBC 3.19 M/mm3 (3.65-5.03) L 12/25/18 05:49 Hgb 10.4 gm/dl (11.8-15.2) L 12/25/18 05:49 Hct 31.6 % (35.5-45.6) L 12/25/18 05:49 MCV 99 fl (84-94) H 12/25/18 05:49 MCH 33 pg (28-32) H 12/25/18 05:49 MCHC 33 % (32-34) 12/25/18 05:49 RDW 17.4 % (13.2-15.2) H 12/25/18 05:49 Plt Count 119 K/mm3 (140-440) L 12/25/18 05:49 Lymph % (Auto) 28.4 % (13.4-35.0) 12/25/18 05:49 Potter % (Auto) 7.8 % (0.0-7.3) H 12/25/18 05:49 Eos % (Auto) 3.8 % (0.0-4.3) 12/25/18 05:49 Baso % (Auto) 0.8 % (0.0-1.8) 12/25/18 05:49 Lymph # 0.9 K/mm3 (1.2-5.4) L 12/25/18 05:49 Potter # 0.3 K/mm3 (0.0-0.8) 12/25/18 05:49 Eos # 0.1 K/mm3 (0.0-0.4) 12/25/18 05:49 Baso # 0.0 K/mm3 (0.0-0.1) 12/25/18 05:49 Seg Neutrophils % 59.2 % (40.0-70.0) 12/25/18 05:49 Seg Neutrophils # 2.0 K/mm3 (1.8-7.7) 12/25/18 05:49 ESR 18 mm/Hr (0-20) 12/28/18 04:35 PT 17.0 Sec. (12.2-14.9) H 12/22/18 04:12 INR 1.42 (0.87-1.13) H 12/22/18 04:12 APTT 32.4 Sec. (24.2-36.6) 12/22/18 04:12 1122.85 ng/mlDDU (0-234) H 12/22/18 04:12 Sodium 131 mmol/L (137-145) L 12/26/18 05:33 Potassium 4.1 mmol/L (3.6-5.0) D 12/26/18 05:33 Chloride 95.4 mmol/L (98-107) L 12/26/18 05:33 Carbon Dioxide 25 mmol/L (22-30) 12/26/18 05:33 15 mmol/L 12/26/18 05:33 BUN 24 mg/dL (9-20) H 12/26/18 05:33 4.8 mg/dL (0.8-1.5) H 12/26/18 05:33 Estimated GFR 15 ml/min 12/26/18 05:33 5 % 12/26/18 05:33 Glucose 106 mg/dL (75-100) H 12/26/18 05:33 Calcium 8.9 mg/dL (8.4-10.2) 12/26/18 05:33 Magnesium 1.90 mg/dL (1.7-2.3) 12/25/18 05:49 Iron 59 ug/dL (49-181) 12/28/18 04:35 TIBC 180 mcg/dL (250-450) L 12/28/18 04:35 156 units/L (91-180) 12/27/18 16:45 113 units/L (55-170) 12/23/18 12:21 CK-MB (CK-2) 3.5 ng/mL (0.0-4.0) 12/23/18 12:21 CK-MB (CK-2) Rel Index 3.0 (0-4) 12/23/18 12:21 0.179 ng/mL (0.00-0.029) H* 12/23/18 12:21 NT-Pro-B Natriuret Pep > 89480 pg/mL (0-900) H 12/22/18 04:12 3.1 g/dL (3.9-5) L 12/26/18 05:33 0.139 g/L (0.200-0.400) L 12/26/18 05:33 Triglycerides 53 mg/dL (2-149) 12/22/18 04:12 Cholesterol 87 mg/dL (50-199) 12/22/18 04:12 34 mg/dL (50-130) L 12/22/18 04:12 47 mg/dL (40-59) 12/22/18 04:12 1.85 % 12/22/18 04:12 Vitamin B12 723.0 pg/mL (211-911) 12/27/18 16:45 12.03 ng/mL (7.3-26.0) 12/28/18 04:35 Fluid Type Pleural 12/26/18 Unknown Fluid Color Straw 12/26/18 Unknown Fluid Appearance Clear 12/26/18 Unknown Fluid WBC 6 /mm3 12/26/18 Unknown Fluid RBC 7 /mm3 12/26/18 Unknown Fluid Seg Neutrophils 35.0 % 12/26/18 Unknown Fluid Lymphocytes 55.0 % 12/26/18 Unknown Fluid Reactive Lymphs 0 % 12/26/18 Unknown Fluid Monocytes 9.0 % 12/26/18 Unknown Fluid Eosinophils 1.0 % 12/26/18 Unknown Fluid Basophils 0 % 12/26/18 Unknown Hepatitis A IgM Ab Non-reactive (NonReactive) 12/26/18 19:31 Hep Bs Antigen Non-reactive (Negative) 12/26/18 19:31 Hep B Core IgM Ab Non-reactive (NonReactive) 12/26/18 19:31 Reactive (NonReactive) A 12/26/18 19:31 Active Medications - Current Medications Current Medications: Generic Name Dose Route Start Last Admin Trade Name Freq PRN Reason Stop Dose Admin Al Hydrox/Mg Hydrox/Simethicone 20 ml 12/22/18 10:00 Alum-Mag Hydrox-Simeth [id number]/5ml PO DAILY PRN Dyspepsia Amlodipine Besylate 10 mg 12/22/18 10:00 12/27/18 10:32 Norvasc PO Not Given DAILY BEAN Apixaban 2.5 mg 12/27/18 10:00 12/27/18 22:10 Eliquis PO 2.5 mg Q12HR BEAN Administration Protocol Atorvastatin Calcium 40 mg 12/22/18 22:00 12/27/18 22:11 Lipitor PO 40 mg QHS BEAN Administration Clonidine HCl 0.3 mg 12/26/18 22:00 12/28/18 06:08 Catapres PO 0.3 mg Q8HR BEAN Administration Diphenhydramine HCl 25 mg 12/22/18 11:23 12/27/18 17:40 Benadryl IV 25 mg KATERYNA PRN Administration Itching Diphenhydramine HCl 25 mg 12/23/18 20:22 12/26/18 05:44 Benadryl PO 25 mg Q6H PRN Administration Itching Epoetin Prashant 10,000 unit 12/22/18 07:28 12/27/18 13:46 Procrit SUB-Q 10,000 unit KATERYNA PRN Administration hemodialysis Famotidine 5 mg 12/22/18 10:00 12/27/18 22:10 Pepcid PO 5 mg BID BEAN Administration Fluoxetine HCl 40 mg 12/22/18 10:00 12/27/18 10:32 Prozac PO Not Given QDAY [facility] Hydralazine HCl 25 mg 12/22/18 10:00 12/27/18 22:13 Apresoline PO 25 mg BID BEAN Administration Hydralazine HCl 10 mg 12/22/18 07:31 12/27/18 16:12 Apresoline IV 10 mg Q4H PRN Administration Hypertension Sodium Chloride 100 mls @ 999 mls/hr 12/22/18 11:23 Nacl 0.9% IV KATERYNA PRN Hypotension Sodium Chloride 100 mls @ 999 mls/hr 12/25/18 09:09 Nacl 0.9% IV KATERYNA PRN Hypotension Isosorbide Mononitrate 30 mg 12/22/18 10:00 12/27/18 10:32 Imdur PO Not Given QDAY [facility] Losartan Potassium 100 mg 12/22/18 10:00 12/27/18 10:31 Cozaar PO Not Given QDAY [facility] Metoprolol Succinate 100 mg 12/22/18 10:00 12/27/18 10:33 Toprol Xl PO Not Given QDAY [facility] Morphine Sulfate 2 mg 12/25/18 02:36 12/28/18 06:15 Morphine IV 2 mg Q6H PRN Administration Pain , Severe (7-10) Multivitamins/Iron 1 each 12/22/18 10:00 12/27/18 10:31 Hemocyte Plus PO Not Given QDAY [facility] Oxycodone/Acetaminophen 1 tab 12/22/18 17:41 12/26/18 11:11 Percocet 5/325 PO 1 tab Q6H PRN Administration Pain, Moderate (4-6) Senna/Docusate Sodium 1 tab 12/22/18 10:00 12/27/18 22:10 Senokot S PO 1 tab BID BEAN Administration Nutrition/Malnutrition Assess - Dietary Evaluation Nutrition/Malnutrition Findings: Nutrition Notes Start: 12/23/18 14:30 Freq: Status: Active Protocol: Document 12/25/18 13:27 MEGAN (Rec: 12/25/18 13:33 MEGAN [id number] [email or web address]) Nutrition Notes Initial or Follow up Reassessment Current Diagnosis CKD (stage V CKD),Coronary Artery Disease,Heart Failure, Respiratory Failure Other Pertinent Diagnosis Large (L) pleural effusion Current Diet Regular + Ensure Clear daily ( M, W, F) Labs/Tests Na 131 K 5.2 BUN 45 Cr 7 Pertinent Medications Reviewed Height 5 ft 9 in Weight 57 kg [place] Body Weight (kg) 72.72 BMI 18.5 Subjective/Other Information Pt not in room at time of visit (11:08). He is scheduled for thoracentesis today. He has consumed 75% of meals. Despite being an HD pt, pt requests Regular diet and does not like Nepro shakes . Percent of energy/protein needs met: 100% energy 86% pro (without ONS) Burn Absent Trauma Absent #1 Nutrition Diagnosis Malnutrition Diagnosis Progress(for reassessment Continues documentation) Is patient on ventilator? No Is Patient Ambulatory and/or Out of Bed No REE-([facility]-confined to bed) 1590.492 Kcal/Kg value to use for calculation 35 Approximate Energy Requirements Using 1995 kcal/Kg Calculation Used for Recommendations Kcal/kg Additional Notes Pro needs 1.2-1.4g/k-80g/ day Fluid needs 1-1.5L/day Nutrition Intervention Change Diet Order: Continue current diet order Add Supplement/Snack (indicate name/kcal Ensure Clear 1 daily (M/W/F/ /protein ) Sun) Provides kCal: 240 Provides Protein (gm) 8 Goal #1 PO intake of meals plus ONS to meet 80-100% energy and pro needs Goal #2 Wt gain/maintenance Revisit per MD consult or patient Sign Off request:
--- NOTE | 2018-12-28 08:50 | Progress Note ---
Assessment and Plan Recurrent Left pleural effusion s/p thoracentesis Chronic systolic heart failure Chronic and constant atypical chest pain DM type II PVD s/p left arm amputation Hypertension ESRD on hemodialysis Thrombocytopenia, chronic Hx of Nonischemic CMP EF 10-15% by echo 08/2018 Non-obstructive CAD C 01/2017 revealed non-obstructive, single vessel disease of the proximal LAD recommended for medical therapy. normal perfusion MPI at [facility] 10/03/18. Permanent Atrial fibrillation rate controlled with metoprolol on low dose eliquis as an outpatient Recommendations: Dialysis for fluid management. Continue medical therapy for nonischemic cardiomyopathy, chronic systolic heart failure and permanent atrial fibrillation. Otherwise, conservative cardiac management. Subjective Date of service: 12/28/18 Principal diagnosis: L Pleural effusion Interval history: Patient is resting in bed comfortably. Afib with a well controlled ventricular rate on telemetry. Objective Vital Signs Temp Pulse Resp BP Pulse Ox 12/28/18 07:50 98.2 F 52 L 16 169/97 100 12/28/18 06:08 71 163/98 12/28/18 03:38 63 12/28/18 03:30 98.0 F 63 18 163/98 100 12/28/18 00:01 98.0 F 58 L 18 165/104 100 12/27/18 22:13 69 180/110 12/27/18 22:11 69 180/110 12/27/18 22:05 69 12/27/18 22:03 18 180/110 12/27/18 19:18 98.0 F 63 18 188/125 100 12/27/18 19:11 62 12/27/18 18:07 14 12/27/18 17:37 14 12/27/18 17:30 62 12/27/18 16:12 61 161/101 12/27/18 15:53 97.8 F 61 14 163/101 99 12/27/18 15:14 61 12/27/18 14:45 69 144/100 12/27/18 14:44 144/100 12/27/18 13:45 98.0 F 66 16 161/89 12/27/18 13:30 94 H 119/57 12/27/18 13:15 74 134/94 12/27/18 13:00 63 135/80 12/27/18 12:45 74 154/90 12/27/18 12:30 65 148/95 07/11/19 12:15 54 L 159/92 12/27/18 12:00 64 128/93 12/27/18 11:45 73 152/98 12/27/18 11:30 66 149/91 12/27/18 11:15 58 L 161/104 12/27/18 11:00 62 157/104 12/27/18 10:30 97.8 F 66 18 160/108 - Physical Examination General: No Apparent Distress HEENT: Positive: PERRL Neck: Positive: trachea midline Cardiac: Positive: irregularly irregular Lungs: Positive: Decreased Breath Sounds Neuro: Positive: Grossly Intact, Weakness Abdomen: Positive: Soft Extremities: Absent: edema - Labs and Meds Cardiac Enzymes 12/27/18 Range/Units 16:45 Lactate Dehydrogenase 156 (91-180) units/L - Allied health notes Allied health notes reviewed: nursing
[2018-12-28] MEDS: COZAAR PO SCH (09:53)
[2018-12-28] MEDS: TOPROL XL PO SCH (09:54)
[2018-12-28] MEDS: PEPCID PO SCH ×2 (09:54→21:36)
[2018-12-28] MEDS: PROzac PO SCH (09:55)
[2018-12-28] MEDS: ELIQUIS PO SCH ×2 (09:55→21:37)
[2018-12-28] MEDS: IMDUR PO SCH (09:56)
[2018-12-28] MEDS: SENOKOT S PO SCH ×2 (09:57→21:36)
[2018-12-28] MEDS: APRESOLINE PO SCH ×2 (09:57→21:37)
[2018-12-28] MEDS: HEMOCYTE PLUS PO SCH (09:57)
[2018-12-28] MEDS: NORVASC PO SCH (09:57)
--- NOTE | 2018-12-28 11:51 | Progress Note ---
Assessment and Plan Imp: 1. L pleural effusion, transudative previously 2. NICMP 3. Chronic systolic CHF 4. ESRD 5. Pleurisy 6. Pancytopenia Rec: 1. Fluid could be related to CHF or 3rd spacing due to poor nutrition; Albumin and Prealbumin are low; recommend improving nutritional status and optimizing BP; patient admits to missing some dialysis sessions or coming off machine early due to cramping, which could be playing a role in the formation of his L ef fusion 2. F/u hematology eval. for pancytopenia 3. F/u remaining Pleural fluid studies; culture and cytology negative 4. Can go home pulm-gandhi, and f/u in office 1-2 weeks to review remaining fluid studies, and to repeat a CXR to eval. for recurrence Plan of care reviewed w/ patient, he understands/agrees Subjective Date of service: 12/28/18 Principal diagnosis: L Pleural effusion Interval history: No events. On RA. Awake, alert. SOB better after thoracentesis on the L. No chest pain currently. Active Medications Al Hydrox/Mg Hydrox/Simethicone (Alum-Mag Hydrox-Simeth [id number]/5ml) 20 ml PO DAILY PRN PRN Reason: Dyspepsia Amlodipine Besylate (Norvasc) 10 mg PO DAILY [facility] Last Admin: 12/28/18 09:57 Dose: 10 mg Documented by: Apixaban (Eliquis) 2.5 mg PO Q12HR BEAN; Protocol Last Admin: 12/28/18 09:55 Dose: 2.5 mg Documented by: Atorvastatin Calcium (Lipitor) 40 mg PO QHS BEAN Last Admin: 12/27/18 22:11 Dose: 40 mg Documented by: Clonidine HCl (Catapres) 0.3 mg PO Q8HR BEAN Last Admin: 12/28/18 06:08 Dose: 0.3 mg Documented by: Diphenhydramine HCl (Benadryl) 25 mg IV KATERYNA PRN PRN Reason: Itching Last Admin: 12/27/18 17:40 Dose: 25 mg Documented by: Diphenhydramine HCl (Benadryl) 25 mg PO Q6H PRN PRN Reason: Itching Last Admin: 12/26/18 05:44 Dose: 25 mg Documented by: Epoetin Prashant (Procrit) 10,000 unit SUB-Q KATERYNA PRN PRN Reason: hemodialysis Last Admin: 12/27/18 13:46 Dose: 10,000 unit Documented by: Famotidine (Pepcid) 5 mg PO BID [facility] Last Admin: 12/28/18 09:54 Dose: 5 mg Documented by: Fluoxetine HCl (Prozac) 40 mg PO QDAY [facility] Last Admin: 12/28/18 09:55 Dose: Not Given Documented by: Hydralazine HCl (Apresoline) 25 mg PO BID [facility] Last Admin: 12/28/18 09:57 Dose: 25 mg Documented by: Hydralazine HCl (Apresoline) 10 mg IV Q4H PRN PRN Reason: Hypertension Last Admin: 12/27/18 16:12 Dose: 10 mg Documented by: Sodium Chloride (Nacl 0.9%) 100 mls @ 999 mls/hr IV KATERYNA PRN PRN Reason: Hypotension Sodium Chloride (Nacl 0.9%) 100 mls @ 999 mls/hr IV KATERYNA PRN PRN Reason: Hypotension Isosorbide Mononitrate (Imdur) 30 mg PO QDAY [facility] Last Admin: 12/28/18 09:56 Dose: 30 mg Documented by: Losartan Potassium (Cozaar) 100 mg PO QDAY [facility] Last Admin: 12/28/18 09:53 Dose: 100 mg Documented by: Metoprolol Succinate (Toprol Xl) 100 mg PO QDAY [facility] Last Admin: 12/28/18 09:54 Dose: 100 mg Documented by: Morphine Sulfate (Morphine) 2 mg IV Q6H PRN PRN Reason: Pain , Severe (7-10) Last Admin: 12/28/18 06:15 Dose: 2 mg Documented by: Multivitamins/Iron (Hemocyte Plus) 1 each PO QDAY [facility] Last Admin: 12/28/18 09:57 Dose: 1 each Documented by: Oxycodone/Acetaminophen (Percocet 5/325) 1 tab PO Q6H PRN PRN Reason: Pain, Moderate (4-6) Last Admin: 12/26/18 11:11 Dose: 1 tab Documented by: Senna/Docusate Sodium (Senokot S) 1 tab PO BID [facility] Last Admin: 12/28/18 09:57 Dose: 1 tab Documented by: Objective Vital Signs - 12hr 12/28/18 12/28/1819 00:01 03:30 03:38 Temperature 98.0 F 98.0 F Pulse Rate 58 L 63 63 Respiratory 18 18 Rate Blood Pressure 165/104 163/98 O2 Sat by Pulse 100 100 Oximetry 12/28/18 12/28/18 06:08 07:50 Temperature 98.2 F Pulse Rate 71 52 L Respiratory 16 Rate Blood Pressure 163/98 169/97 O2 Sat by Pulse 100 Oximetry Constitutional: no acute distress, alert, other (cachectic) Eyes: non-icteric ENT: oropharynx moist Neck: supple Effort: normal Ascultation: Right: clear, Left: diminished breath sounds (base) Cardiovascular: irregular rhythm (ir/ir, no mrg) Gastrointestinal: normoactive bowel sounds, soft, non-tender, non-distended Integumentary: normal Extremities: no cyanosis, no edema, pink and warm Neurologic: normal mental status, non-focal exam, pupils equal and round, CN II- XII normal Psychiatric: mood appropriate, affect normal CBC and BMP: 12/25/18 05:49 12/26/18 05:33 ABG, PT/INR, D-dimer: PT/INR, D-dimer PT 17.0 Sec. (12.2-14.9) H 12/22/18 04:12 INR 1.42 (0.87-1.13) H 12/22/18 04:12 1122.85 ng/mlDDU (0-234) H 12/22/18 04:12 Abnormal lab findings: Abnormal Labs 12/22/18 12/22/18 12/22/18 04:12 04:12 04:12 WBC 2.8 L RBC 2.92 L Hgb 9.6 L Hct 29.6 L MCV 101 H MCH 33 H RDW 16.9 H Plt Count 120 L [place] % (Auto) 10.5 H Lymph # 0.7 L Seg Neutrophils # 1.7 L PT 17.0 H INR 1.42 H D-Dimer 1122.85 H Sodium Potassium Chloride BUN 42 H Creatinine 7.6 H Glucose 118 H TIBC Total Creatine Kinase CK-MB (CK-2) Rel Index Troponin T 0.147 H* NT-Pro-B Natriuret Pep > 38868 H Albumin Prealbumin LDL Cholesterol Direct 34 L Hepatitis C Antibody 07/12/0512/23/18 12/23/18 06:37 04:14 04:14 WBC RBC Hgb Hct MCV MCH RDW Plt Count [place] % (Auto) Lymph # Seg Neutrophils # PT INR D-Dimer Sodium 135 L Potassium Chloride BUN 24 H Creatinine 4.7 H Glucose TIBC Total Creatine Kinase 46 L CK-MB (CK-2) Rel Index 5.8 H Troponin T 0.144 H* 0.177 H* D NT-Pro-B Natriuret Pep Albumin Prealbumin LDL Cholesterol Direct Hepatitis C Antibody 12/23/18 12/25/18 12/25/18 12:21 05:49 05:49 WBC 3.3 L RBC 3.19 L Hgb 10.4 L Hct 31.6 L MCV 99 H MCH 33 H RDW 17.4 H Plt Count 119 L [place] % (Auto) 7.8 H Lymph # 0.9 L Seg Neutrophils # PT INR D-Dimer Sodium 131 L Potassium 5.2 H Chloride 93.6 L BUN 45 H Creatinine 7.0 H Glucose TIBC Total Creatine Kinase CK-MB (CK-2) Rel Index Troponin T 0.179 H* NT-Pro-B Natriuret Pep Albumin Prealbumin LDL Cholesterol Direct Hepatitis C Antibody 12/26/18 12/26/18 12/26/18 05:33 05:33 19:31 WBC RBC Hgb Hct MCV MCH RDW Plt Count [place] % (Auto) Lymph # Seg Neutrophils # PT INR D-Dimer Sodium 131 L Potassium Chloride 95.4 L BUN 24 H Creatinine 4.8 H Glucose 106 H TIBC Total Creatine Kinase CK-MB (CK-2) Rel Index Troponin T NT-Pro-B Natriuret Pep Albumin 3.1 L Prealbumin 0.139 L LDL Cholesterol Direct Hepatitis C Antibody Reactive A 12/28/18 04:35 WBC RBC Hgb Hct MCV MCH RDW Plt Count [place] % (Auto) Lymph # Seg Neutrophils # PT INR D-Dimer Sodium Potassium Chloride BUN Creatinine Glucose TIBC 180 L Total Creatine Kinase CK-MB (CK-2) Rel Index Troponin T NT-Pro-B Natriuret Pep Albumin Prealbumin LDL Cholesterol Direct Hepatitis C Antibody Chest x-ray: report reviewed, image reviewed Allied health notes reviewed: nursing
--- NOTE | 2018-12-28 13:38 | Progress Note ---
Assessment and Plan - Patient Problems (1) ESRD needing dialysis Current Visit: Yes Status: Chronic Plan to address problem: Maintain on a Monday inpatient hemodialysis schedule. From renal standpoint patient is stable for DC. (2) Pleural effusion Current Visit: Yes Status: Chronic Plan to address problem: Status post ultrasound-guided thoracentesis with removal of 700 mL of fluid. We'll continue to monitor. Respiratory status overall stable. (3) Hypertensive chronic kidney disease with stage 5 chronic kidney disease or end stage renal disease Current Visit: Yes Status: Chronic Plan to address problem: We'll monitor on his current regimen. (4) Type 2 diabetes mellitus with diabetic chronic kidney disease Current Visit: Yes Status: Chronic Qualifiers: Chronic kidney disease stage: on chronic dialysis Plan to address problem: Diabetes management per primary attending. (5) Anemia in CKD (chronic kidney disease) Current Visit: Yes Status: Acute Qualifiers: Chronic kidney disease stage: on chronic dialysis Qualified Code(s): N18.6 - End stage renal disease; D63.1 - Anemia in chronic kidney disease; Z99.2 - Dependence on renal dialysis Plan to address problem: Epogen with hemodialysis. Subjective Date of service: 12/28/18 Principal diagnosis: L Pleural effusion Interval history: Seen earlier this am. No acute issues overnight. s/p thoracentesis. Tolerated HD session well, with increased UF goal. Objective - Vital Signs Vital signs: Vital Signs - 12hr 12/28/18 12/28/18 12/28/18 03:30 03:38 06:08 Temperature 98.0 F Pulse Rate 63 63 71 Respiratory 18 Rate Blood Pressure 163/98 163/98 O2 Sat by Pulse 100 Oximetry 12/28/18 12/28/18 07:50 12:28 Temperature 98.2 F 97.9 F Pulse Rate 52 L 59 L Respiratory 16 16 Rate Blood Pressure 169/97 148/106 O2 Sat by Pulse 100 100 Oximetry - General Appearance General appearance: cachectic, chronically ill, frail EENT: ATNC, PERRL Neck: no JVD, no thyromegaly Respiratory: Present: Clear to Ascultation Cardiology: regular, S1S2 Gastrointestinal: normal, normoactive bowel sounds Integumentary: warm and dry Neurologic: no focal deficit Psychiatric: mood/affect appropriate, cooperative - Lab 12/25/18 05:49 12/26/18 05:33 Most recent lab results Calcium 8.9 mg/dL (8.4-10.2) 12/26/18 05:33 Magnesium 1.90 mg/dL (1.7-2.3) 12/25/18 05:49 - Imaging Chest x-ray: report reviewed, image reviewed - Allied health notes Allied health notes reviewed: nursing Medications & Allergies - Medications Allergies/Adverse Reactions: Allergies aspirin Allergy (Verified 03/16/17 01:25) Unknown stomach cramps pork derived (porcine) Allergy (Verified 03/16/17 01:27) Rash venom-honey bee [bee venom (honey bee)] Allergy (Verified 03/16/17 01:27) Anaphylaxis Pork/Porcine Containing Products Adverse Reaction (Severe, Verified 02/13/17 09:31) Nausea,VOMITING Home Medications: Home Medications Medication Instructions Recorded Confirmed Last Taken Type Acetaminophen [Acetaminophen TAB] 650 mg PO Q4H PRN tablet 05/05/18 12/24/18 09/21/18 Rx Apixaban [Eliquis] 2.5 mg PO Q12HR #60 tablet 09/05/18 12/24/18 09/21/18 Rx FLUoxetine HCL [Fluoxetine HCl] 40 mg PO QDAY #30 capsule 09/05/18 12/22/18 09/21/18 Rx Famotidine [Pepcid] 10 mg PO BID #15 tablet 09/05/18 12/22/18 09/21/18 Rx Fe Fumarate/FA/Mv, Min Comb#15 1 each PO QDAY #30 capsule 09/05/18 12/24/18 09/21/18 Rx [Hemocyte Plus] ISOSORBIDE MONOnitrate [Imdur ER] 30 mg PO QDAY #30 tablet 09/05/18 12/24/18 09/21/18 Rx Losartan [Cozaar] 100 mg PO QDAY 30 Days tablet 09/05/18 12/22/18 09/21/18 Rx amLODIPine [Norvasc] 10 mg PO DAILY #30 tablet 09/05/18 12/22/18 09/21/18 Rx hydrALAZINE [Apresoline TAB] 50 mg PO BID 11/06/18 12/22/18 Unknown History Mag Hydrox/Aluminum Hyd/Simeth 355 ml PO DAILY PRN 15 Days 11/08/18 12/22/18 Unknown Rx [Maalox Advanced Suspension] oral.susp Apixaban [Eliquis] 2.5 mg PO Q12HR #60 tablet 12/01/18 12/22/18 Unknown Rx AtorvaSTATin [Lipitor] 40 mg PO QHS #30 tablet 12/01/18 12/22/18 Unknown Rx Epoetin Prashant 10,000 Unit [Procrit] 10,000 unit SUB-Q KATERYNA PRN #30 vial 12/01/18 12/24/18 Unknown Rx ISOSORBIDE MONOnitrate [Imdur ER] 30 mg PO DAILY #30 tablet 12/01/18 12/22/18 Unknown Rx Metoprolol Xl [Metoprolol 100 mg PO QDAY #30 tablet 12/01/18 12/24/18 Unknown Rx SUCCINATE ER TAB] Sennosides/Docusate [Senokot S] 1 tab PO BID #20 tablet 12/01/18 12/22/18 Unknown Rx amLODIPine [Norvasc] 10 mg PO DAILY #30 tablet 12/01/18 12/24/18 Unknown Rx levoFLOXacin [Levaquin TAB] 500 mg PO QDAY #7 tablet 12/01/18 12/24/18 Unknown Rx metroNIDAZOLE [Flagyl] 500 mg PO Q8HR #21 tablet 12/01/18 12/24/18 Unknown Rx cloNIDine 0.3 mg PO ONCE 12/22/18 12/24/18 Unknown History Active Medications: Generic Name Dose Route Start Last Admin Trade Name Freq PRN Reason Stop Dose Admin Al Hydrox/Mg Hydrox/Simethicone 20 ml 12/22/18 10:00 Alum-Mag Hydrox-Simeth 340-408-91cg/5ml PO DAILY PRN Dyspepsia Amlodipine Besylate 10 mg 12/22/18 10:00 12/28/18 09:57 Norvasc PO 10 mg DAILY BEAN Administration Apixaban 2.5 mg 12/27/18 10:00 12/28/18 09:55 Eliquis PO 2.5 mg Q12HR BEAN Administration Protocol Atorvastatin Calcium 40 mg 12/22/18 22:00 12/27/18 22:11 Lipitor PO 40 mg QHS BEAN Administration Clonidine HCl 0.3 mg 12/26/18 22:00 12/28/18 06:08 Catapres PO 0.3 mg Q8HR BEAN Administration Diphenhydramine HCl 25 mg 12/22/18 11:23 12/27/18 17:40 Benadryl IV 25 mg KATERYNA PRN Administration Itching Diphenhydramine HCl 25 mg 12/23/18 20:22 12/26/18 05:44 Benadryl PO 25 mg Q6H PRN Administration Itching Epoetin Prashant 10,000 unit 12/22/18 07:28 12/27/18 13:46 Procrit SUB-Q 10,000 unit KATERYNA PRN Administration hemodialysis Famotidine 5 mg 12/22/18 10:00 12/28/18 09:54 Pepcid PO 5 mg BID BEAN Administration Fluoxetine HCl 40 mg 12/22/18 10:00 12/28/18 09:55 Prozac PO Not Given QDAY BEAN Hydralazine HCl 25 mg 12/22/18 10:00 12/28/18 09:57 Apresoline PO 25 mg BID BEAN Administration Hydralazine HCl 10 mg 12/22/18 07:31 12/27/18 16:12 Apresoline IV 10 mg Q4H PRN Administration Hypertension Sodium Chloride 100 mls @ 999 mls/hr 12/25/18 09:09 Nacl 0.9% IV KATERYNA PRN Hypotension Isosorbide Mononitrate 30 mg 12/22/18 10:00 12/28/18 09:56 Imdur PO 30 mg QDAY BEAN Administration Losartan Potassium 100 mg 12/22/18 10:00 12/28/18 09:53 Cozaar PO 100 mg QDAY BEAN Administration Metoprolol Succinate 100 mg 12/22/18 10:00 12/28/18 09:54 Toprol Xl PO 100 mg QDAY BEAN Administration Morphine Sulfate 2 mg 12/25/18 02:36 12/28/18 06:15 Morphine IV 2 mg Q6H PRN Administration Pain , Severe (7-10) Multivitamins/Iron 1 each 12/22/18 10:00 12/28/18 09:57 Hemocyte Plus PO 1 each QDAY BEAN Administration Oxycodone/Acetaminophen 1 tab 12/22/18 17:41 12/26/18 11:11 Percocet 5/325 PO 1 tab Q6H PRN Administration Pain, Moderate (4-6) Senna/Docusate Sodium 1 tab 12/22/18 10:00 12/28/18 09:57 Jerome S PO 1 tab BID BEAN Administration
--- NOTE | 2018-12-28 22:02 | Progress Note ---
Assessment and Plan - Patient Problems (1) Anemia in CKD (chronic kidney disease) Current Visit: Yes Status: Acute Qualifiers: Chronic kidney disease stage: on chronic dialysis Qualified Code(s): N18.6 - End stage renal disease; D63.1 - Anemia in chronic kidney disease; Z99.2 - Dependence on renal dialysis Plan to address problem: continue to monitor labs. (2) Thrombocytopenia Current Visit: Yes Status: Acute Plan to address problem: See w/up orders. Hep C checked, and is positive, and may be the etiology. Will check HIV panel. (3) Nonischemic cardiomyopathy Current Visit: Yes Status: Acute Plan to address problem: Follow cardiology. (4) Anticoagulant long-term use Current Visit: Yes Status: Acute Plan to address problem: Continue as current Subjective Date of service: 12/28/18 Principal diagnosis: L Pleural effusion Interval history: This is hematology note, patient seen/examined, resting in bed, w/up labs still pending, except HEP C+, will do quantitative testing. this is probably the etiology for his thrombocytopenia. Objective - Constitutional Vitals: Vital Signs - 12hr 12/28/18 12/28/18 12/28/18 10:00 12:28 15:44 Temperature 97.9 F 98.0 F Pulse Rate 59 L 52 L Respiratory 16 Rate Blood Pressure 148/106 Blood Pressure 129/90 [Right] O2 Sat by Pulse 100 100 Oximetry 12/28/18 12/28/18 12/28/18 19:10 20:53 21:37 Temperature 97.8 F Pulse Rate 58 L 58 L 58 L Respiratory 19 Rate Blood Pressure 95/68 Blood Pressure [Right] O2 Sat by Pulse 88 Oximetry 12/28/18 21:42 Temperature Pulse Rate Respiratory 18 Rate Blood Pressure Blood Pressure [Right] O2 Sat by Pulse Oximetry General appearance: Present: mild distress, cachectic - EENT Eyes: PERRL, EOM intact ENT: hearing intact, clear oral mucosa Ears: bilateral: normal - Neck Neck: supple, normal ROM - Respiratory Respiratory effort: normal Respiratory: bilateral: CTA - Breasts Breasts: deferred - Cardiovascular Rhythm: regular Heart Sounds: Present: S1 & S2. Absent: gallop, rub Extremities: pulses intact, No edema, normal color, Full ROM - Gastrointestinal General gastrointestinal: Present: soft, non-tender, non-distended, normal bowel sounds Rectal Exam: deferred - Genitourinary Male genitourinary: deferred - Integumentary Integumentary: clear, warm, dry - Musculoskeletal Musculoskeletal: 1, strength equal bilaterally - Neurologic Neurologic: moves all extremities - Psychiatric Psychiatric: memory intact, appropriate mood/affect, intact judgment & insight - Labs CBC & Chem 7: 12/25/18 05:49 12/26/18 05:33 Labs: Abnormal lab results 12/28/18 Range/Units 04:35 TIBC 180 L (250-450) mcg/dL Medications & Allergies - Medications Allergies/Adverse Reactions: Allergies aspirin Allergy (Verified 03/16/17 01:25) Unknown stomach cramps pork derived (porcine) Allergy (Verified 03/16/17 01:27) Rash venom-honey bee [bee venom (honey bee)] Allergy (Verified 03/16/17 01:27) Anaphylaxis Pork/Porcine Containing Products Adverse Reaction (Severe, Verified 02/13/17 09:31) Nausea,VOMITING Home Medications: Home Medications Medication Instructions Recorded Confirmed Last Taken Type Acetaminophen [Acetaminophen TAB] 650 mg PO Q4H PRN tablet 05/05/18 12/24/18 09/21/18 Rx Apixaban [Eliquis] 2.5 mg PO Q12HR #60 tablet 09/05/18 12/24/18 09/21/18 Rx FLUoxetine HCL [Fluoxetine HCl] 40 mg PO QDAY #30 capsule 09/05/18 12/22/18 09/21/18 Rx Famotidine [Pepcid] 10 mg PO BID #15 tablet 09/05/18 12/22/18 09/21/18 Rx Fe Fumarate/FA/Mv, Min Comb#15 1 each PO QDAY #30 capsule 09/05/18 12/24/18 09/21/18 Rx [Hemocyte Plus] ISOSORBIDE MONOnitrate [Imdur ER] 30 mg PO QDAY #30 tablet 09/05/18 12/24/18 09/21/18 Rx Losartan [Cozaar] 100 mg PO QDAY 30 Days tablet 09/05/18 12/22/18 09/21/18 Rx amLODIPine [Norvasc] 10 mg PO DAILY #30 tablet 09/05/18 12/22/18 09/21/18 Rx hydrALAZINE [Apresoline TAB] 50 mg PO BID 11/06/18 12/22/18 Unknown History Mag Hydrox/Aluminum Hyd/Simeth 355 ml PO DAILY PRN 15 Days 11/08/18 12/22/18 Un known Rx [Maalox Advanced Suspension] oral.susp Apixaban [Eliquis] 2.5 mg PO Q12HR #60 tablet 12/01/18 12/22/18 Unknown Rx AtorvaSTATin [Lipitor] 40 mg PO QHS #30 tablet 12/01/18 12/22/18 Unknown Rx Epoetin Prashant 10,000 Unit [Procrit] 10,000 unit SUB-Q KATERYNA PRN #30 vial 12/01/18 12/24/18 Unknown Rx ISOSORBIDE MONOnitrate [Imdur ER] 30 mg PO DAILY #30 tablet 12/01/18 12/22/18 Unknown Rx Metoprolol Xl [Metoprolol 100 mg PO QDAY #30 tablet 12/01/18 12/24/18 Unknown Rx SUCCINATE ER TAB] Sennosides/Docusate [Senokot S] 1 tab PO BID #20 tablet 12/01/18 12/22/18 Unknown Rx amLODIPine [Norvasc] 10 mg PO DAILY #30 tablet 12/01/18 12/24/18 Unknown Rx levoFLOXacin [Levaquin TAB] 500 mg PO QDAY #7 tablet 12/01/18 12/24/18 Unknown Rx metroNIDAZOLE [Flagyl] 500 mg PO Q8HR #21 tablet 12/01/18 12/24/18 Unknown Rx cloNIDine 0.3 mg PO ONCE 12/22/18 12/24/18 Unknown History Active Medications: Generic Name Dose Route Start Last Admin Trade Name Amanq PRN Reason Stop Dose Admin Al Hydrox/Mg Hydrox/Simethicone 20 ml 12/22/18 10:00 Alum-Mag Hydrox-Simeth 830-925-52ql/5ml PO DAILY PRN Dyspepsia Amlodipine Besylate 10 mg 12/22/18 10:00 12/28/18 09:57 Norvasc PO 10 mg DAILY BEAN Administration Apixaban 2.5 mg 12/27/18 10:00 12/28/18 21:37 Eliquis PO 2.5 mg Q12HR BEAN Administration Protocol Atorvastatin Calcium 40 mg 12/22/18 22:00 12/28/18 21:36 Lipitor PO 40 mg QHS BEAN Administration Clonidine HCl 0.3 mg 12/26/18 22:00 12/28/18 21:37 Catapres PO Not Given Q8HR BEAN Diphenhydramine HCl 25 mg 12/22/18 11:23 12/27/18 17:40 Benadryl IV 25 mg KATERYNA PRN Administration Itching Diphenhydramine HCl 25 mg 12/23/18 20:22 12/26/18 05:44 Benadryl PO 25 mg Q6H PRN Administration Itching Epoetin Prashant 10,000 unit 12/22/18 07:28 12/27/18 13:46 Procrit SUB-Q 10,000 unit KATERYNA PRN Administration hemodialysis Famotidine 5 mg 12/22/18 10:00 12/28/18 21:36 Pepcid PO 5 mg BID BEAN Administration Fluoxetine HCl 40 mg 12/22/18 10:00 12/28/18 09:55 Prozac PO Not Given QDAY BEAN Hydralazine HCl 25 mg 12/22/18 10:00 12/28/18 21:37 Apresoline PO Not Given BID BEAN Hydralazine HCl 10 mg 12/22/18 07:31 12/27/18 16:12 Apresoline IV 10 mg Q4H PRN Administration Hypertension Sodium Chloride 100 mls @ 999 mls/hr 12/25/18 09:09 Nacl 0.9% IV KATERYNA PRN Hypotension Isosorbide Mononitrate 30 mg 12/22/18 10:00 12/28/18 09:56 Imdur PO 30 mg QDAY BEAN Administration Losartan Potassium 100 mg 12/22/18 10:00 12/28/18 09:53 Cozaar PO 100 mg QDAY BEAN Administration Metoprolol Succinate 100 mg 12/22/18 10:00 12/28/18 09:54 Toprol Xl PO 100 mg QDAY BEAN Administration Morphine Sulfate 2 mg 12/25/18 02:36 12/28/18 21:42 Morphine IV 2 mg Q6H PRN Administration Pain , Severe (7-10) Multivitamins/Iron 1 each 12/22/18 10:00 12/28/18 09:57 Hemocyte Plus PO 1 each QDAY BEAN Administration Oxycodone/Acetaminophen 1 tab 12/22/18 17:41 12/26/18 11:11 Percocet 5/325 PO 1 tab Q6H PRN Administration Pain, Moderate (4-6) Senna/Docusate Sodium 1 tab 12/22/18 10:00 12/28/18 21:36 Senokot S PO 1 tab BID BEAN Administration
[2018-12-29] MEDS: APRESOLINE PO SCH ×2 (00:44→10:00)
[2018-12-29] MEDS: BENADRYL PO PRN (02:54)
[2018-12-29 04:10] LABS: Basophils % (Auto) 0.6 % (0.0-1.8); Eosinophils # (Auto) 0.2 K/mm3 (0.0-0.4); Eosinophils % (Auto) 5.9 % (0.0-4.3); Hematocrit 30.3 % (35.5-45.6); Hemoglobin 9.9 gm/dl (11.8-15.2); Lymphocytes % (Auto) 26.8 % (13.4-35.0); Mean Corpuscular HGB Conc 33 % (32-34); Mean Corpuscular Volume 100 fl (84-94); Monocytes # (Auto) 0.4 K/mm3 (0.0-0.8); Monocytes % (Auto) 11.1 % (0.0-7.3); Platelet Count 102 K/mm3 (140-440); Red Blood Count 3.05 M/mm3 (3.65-5.03); Red Cell Distribution Width 17.6 % (13.2-15.2)
[2018-12-29] MEDS: MORPHINE IV PRN (04:42)
[2018-12-29] MEDS: CATAPRES PO SCH ×2 (06:03→12:00)
--- NOTE | 2018-12-29 08:52 | Discharge Summary ---
Providers - Providers Date of Admission: 12/22/18 07:33 Date of discharge: 12/29/18 Attending physician: GLADIS DONG 12/22/18 07:02 Consult to Physician [CONS] Urgent Comment: Consulting Provider: FERN ARIAS Physician Instructions: Reason For Exam: esrd 12/22/18 07:20 PICC Line Insertion [Consult to PICC Line RN] [CONS] Stat Reason For Exam: needs midline cta injection Type Line:: Midline 12/22/18 08:36 Consult to Physician [CONS] Routine Comment: Consulting Provider: KENNY PINEDA Physician Instructions: Reason For Exam: Large Lt.Pleural effusion 12/23/18 07:43 Consult to Physician [CONS] Routine Comment: Consulting Provider: MARY ANN JACKSON Physician Instructions: Reason For Exam: Ac on Chr syst CHF, EF15%,positive CE 12/27/18 13:08 Consult to Physician [CONS] Routine Comment: Consulting Provider: MIKA SAXENA Physician Instructions: Reason For Exam: pancytopenia Primary care physician: ARSLAN PIMENTEL Hospitalization Reason for admission: sob Condition: Stable Hospital course: 71-year-old -[place]i male patient with significant past medical history of end-stage renal disease on hemodialysis hypotension and congestive heart failure A. fib coronary artery disease PTSD hypertension presented to the emergency room with worsening shortness of breath of 3-4 days duration. The patient was admitted with diagnosis of acute hypoxic respiratory failure secondary to fluid overload, left pleural effusion and acute on chronic systolic heart failure. Patient received appropriate treatment with hemodialysis and nephrology was consulted. Patient maintained hemodialysis schedule., Nonspecific elevation of troponins, and elevated D dimers, negative PE --CTA negative chest, negative DVT, chest x-rays consistent with large left-sided pleural effusion, s/p US guided Thoracentesis 12/26 with 700 ml removed. Pulmonary and cardiology also saw the patient in consultation. Pulmonary felt that the Fluid could be related to CHF or 3rd spacing due to poor nutrition; Albumin and Prealbumin are low; recommend improving nutritional status and o ptimizing BP; patient admits to missing some dialysis sessions or coming off machine early due to cramping, which could be playing a role in the formation of his L effusion. Patient was also noted to have pancytopenia and was seen by hematology. Hematology initiated workup can be followed up as an outpatient. Hepatitis C was positive which may be possible etiology. HIV panel is pending. Patient to have further follow-up with GI as an outpatient. Also, patient is to follow-up remaining Pleural fluid studies; culture and cytology negative. Repeat chest x-ray as an outpatient. Patient reports that he is back to his baseline pulmonary-gandhi. Dedicated discharge time 32 minutes. Disposition: [id number] TO HOME OR SELFCARE Time spent for discharge: 32 - Discharge Diagnoses (1) Acute and chronic respiratory failure with hypoxia Status: Acute (2) Afib Status: Acute (3) Anemia in CKD (chronic kidney disease) Status: Acute Qualifiers: Chronic kidney disease stage: on chronic dialysis Qualified Code(s): N18.6 - End stage renal disease; D63.1 - Anemia in chronic kidney disease; Z99.2 - Dependence on renal dialysis (4) Anticoagulant long-term use Status: Acute (5) Elevated troponin I level Status: Acute (6) HTN (hypertension) Status: Acute (7) Nonischemic cardiomyopathy Status: Acute (8) Thrombocytopenia Status: Acute (9) ESRD needing dialysis Status: Chronic (10) Hypertensive chronic kidney disease with stage 5 chronic kidney disease or end stage renal disease Status: Chronic (11) Pleural effusion Status: Chronic (12) Type 2 diabetes mellitus with diabetic chronic kidney disease Status: Chronic Qualifiers: Chronic kidney disease stage: on chronic dialysis (13) Acute CHF (congestive heart failure) Status: Acute (14) Acute on chronic systolic heart failure Status: Acute (15) Anemia Status: Acute Qualifiers: Chronic kidney disease stage: on chronic dialysis (16) ESRD (end stage renal disease) on dialysis Status: Acute (17) Cardiomyopathy Status: Chronic Qualifiers: Cardiomyopathy type: dilated Qualified Code(s): I42.0 - Dilated cardiomyopathy (18) IDDM (insulin dependent diabetes mellitus) Status: Chronic Core Measure Documentation - Palliative Care Palliative Care/ Comfort Measures: Not Applicable - Core Measures Any of the following diagnoses?: none - Heart Failure Discharge Requirements BEATRICE/ARB for LVSD if EF <40%: Yes Beta jett at discharge: Yes Exam - Constitutional Vitals: Temp Pulse Resp BP Pulse Ox 98.6 F 70 20 138/94 100 12/29/18 04:22 12/29/18 04:22 12/29/18 04:42 12/29/18 04:22 12/29/18 04:22 General appearance: Present: no acute distress, well-nourished - EENT Eyes: Present: PERRL ENT: hearing intact, clear oral mucosa - Neck Neck: Present: supple, normal ROM - Respiratory Respiratory effort: normal Respiratory: bilateral: CTA - Cardiovascular Heart Sounds: Present: S1 & S2. Absent: rub, click - Extremities Extremities: pulses symmetrical, No edema Peripheral Pulses: within normal limits - Abdominal General gastrointestinal: Present: soft, non-tender, non-distended, normal bowel sounds Male genitourinary: Present: normal - Integumentary Integumentary: Present: clear, warm, dry - Musculoskeletal Musculoskeletal: gait normal, strength equal bilaterally - Psychiatric Psychiatric: appropriate mood/affect, intact judgment & insight - Neurologic Neurologic: CNII-XII intact, moves all extremities Plan Activity: advance as tolerated Weight Bearing Status: Weight Bear as Tolerated Diet: diabetic, renal Follow up with: ARSLAN PIMENTEL MD [Primary Care Provider] - 3-5 Days FERN ARIAS DO [Staff Physician] - 7 Days COLLEEN SAGE MD [Staff Physician] - 7 Days HUGO POWELL MD [Staff Physician] - 7 Days MIKA SAXENA DO [Staff Physician] - 7 Days Prescriptions: hydrALAZINE [Apresoline TAB] 50 mg PO BID #60 tablet cloNIDine 0.3 mg PO ONCE #30 Losartan [Cozaar] 100 mg PO QDAY 30 Days tablet Apixaban [Eliquis] 2.5 mg PO Q12HR #60 tablet Apixaban [Eliquis] 2.5 mg PO Q12HR #60 tablet Fe Fumarate/FA/Mv, Min Comb#15 [Hemocyte Plus] 1 each PO QDAY #30 capsule ISOSORBIDE MONOnitrate [Imdur ER] 30 mg PO DAILY #30 tablet ISOSORBIDE MONOnitrate [Imdur ER] 30 mg PO QDAY #30 tablet AtorvaSTATin [Lipitor] 40 mg PO QHS #30 tablet Mag Hydrox/Aluminum Hyd/Simeth [Maalox Advanced Suspension] 355 ml PO DAILY PRN 15 Days oral.susp PRN Reason: Dyspepsia Metoprolol Xl [Metoprolol SUCCINATE ER TAB] 100 mg PO QDAY #30 tablet amLODIPine [Norvasc] 10 mg PO DAILY #30 tablet amLODIPine [Norvasc] 10 mg PO DAILY #30 tablet Famotidine [Pepcid] 10 mg PO BID #15 tablet Epoetin Prashant 10,000 Unit [Procrit] 10,000 unit SUB-Q KATERYNA PRN #30 vial PRN Reason: Hemodialysis
[2018-12-29] MEDS: PEPCID PO SCH (10:00)
[2018-12-29] MEDS: ELIQUIS PO SCH (10:00)
[2018-12-29] MEDS: SENOKOT S PO SCH (10:00)
--- NOTE | 2018-12-29 10:24 | Progress Note ---
Assessment and Plan Recurrent Left pleural effusion s/p thoracentesis Chronic systolic heart failure Chronic and constant atypical chest pain DM type II PVD s/p left arm amputation Hypertension ESRD on hemodialysis Thrombocytopenia, chronic Hx of Nonischemic CMP EF 10-15% by echo 08/2018 Non-obstructive CAD [facility] 01/2017 revealed non-obstructive, single vessel disease of the proximal LAD recommended for medical therapy. normal perfusion MPI at [facility] 10/03/18. Permanent Atrial fibrillation rate controlled with metoprolol on low dose eliquis as an outpatient Recommendations: Dialysis for fluid management. Continue medical therapy for nonischemic cardiomyopathy, chronic systolic heart failure and permanent atrial fibrillation. Otherwise, conservative cardiac management. Subjective Date of service: 12/29/18 Principal diagnosis: L Pleural effusion Interval history: Pt being discharged Objective Vital Signs Temp Pulse Resp BP BP Pulse Ox 12/29/18 09:05 98.3 F 61 18 160/91 96 12/29/18 04:42 20 12/29/18 04:22 98.6 F 70 19 138/94 100 12/28/18 23:27 98.0 F 57 L 18 125/80 100 12/28/18 22:26 99 12/28/18 21:42 18 12/28/18 21:37 58 L 12/28/18 20:53 58 L 12/28/18 19:10 97.8 F 58 L 19 95/68 88 12/28/18 15:44 98.0 F 52 L 129/90 12/28/18 12:28 97.9 F 59 L 16 148/106 100 - Physical Examination General: No Apparent Distress HEENT: Positive: PERRL Neck: Positive: trachea midline Cardiac: Positive: irregularly irregular Lungs: Positive: Decreased Breath Sounds Neuro: Positive: Grossly Intact, Weakness Abdomen: Positive: Soft Extremities: Absent: edema - Labs and Meds CBC 12/29/18 Range/Units 03:45 WBC 3.8 L (4.5-11.0) K/mm3 RBC 3.05 L (3.65-5.03) M/mm3 Hgb 9.9 L (11.8-15.2) gm/dl Hct 30.3 L (35.5-45.6) % Plt Count 102 L (140-440) K/mm3 Lymph # 1.0 L (1.2-5.4) K/mm3 [place] # 0.4 (0.0-0.8) K/mm3 Eos # 0.2 (0.0-0.4) K/mm3 Baso # 0.0 (0.0-0.1) K/mm3 - Allied health notes Allied health notes reviewed: nursing
[2018-12-29] MEDS ORDERED: NACL 0.9 (PRIMING MACHINE ONLY DIALYSIS) MC ONE (10:57)
[2018-12-29] MEDS: PROCRIT SUB-Q PRN (13:15)
[2018-12-29 14:13] VITALS: BP 115/59
--- NOTE | 2018-12-29 15:49 | Progress Note ---
Assessment and Plan - Patient Problems (1) Anemia in CKD (chronic kidney disease) Current Visit: Yes Status: Acute Qualifiers: Chronic kidney disease stage: on chronic dialysis Qualified Code(s): N18.6 - End stage renal disease; D63.1 - Anemia in chronic kidney disease; Z99.2 - Dependence on renal dialysis Plan to address problem: continue to monitor labs. (2) Thrombocytopenia Current Visit: Yes Status: Acute Plan to address problem: See w/up orders. Hep C checked, and is positive, and may be the etiology. Will check HIV panel. completed, see notes. (3) Nonischemic cardiomyopathy Current Visit: Yes Status: Acute Plan to address problem: Follow cardiology. (4) Anticoagulant long-term use Current Visit: Yes Status: Acute Plan to address problem: Continue as current Subjective Date of service: 12/29/18 Principal diagnosis: L Pleural effusion Interval history: This is hematology note, patient seen/examined, resting in bed, w/up labs still pending, except HEP C+, will do quantitative testing. this is probably the etiology for his thrombocytopenia. Patient seen. resting in bed, this is a late note entry.labs reviewed, HIV panel negative. Final hep c panel results still pending. Objective - Constitutional Vitals: Vital Signs - 12hr 12/29/18 12/29/18 12/29/18 04:22 04:42 08:00 Temperature 98.6 F Pulse Rate 70 72 Respiratory 19 20 Rate Blood Pressure 138/94 Blood Pressure [Right] O2 Sat by Pulse 100 Oximetry 12/29/18 12/29/18 12/29/18 09:05 10:30 10:35 Temperature 98.3 F 97.2 F L Pulse Rate 61 71 68 Respiratory 18 16 Rate Blood Pressure 156/91 166/97 Blood Pressure 160/91 [Right] O2 Sat by Pulse 96 Oximetry 12/29/18 12/29/18 12/29/18 10:45 11:00 11:15 Temperature Pulse Rate 69 72 53 L Respiratory Rate Blood Pressure 147/93 129/79 118/63 Blood Pressure [Right] O2 Sat by Pulse Oximetry 12/29/18 12/29/18 12/29/18 11:30 11:45 12:00 Temperature Pulse Rate 64 72 67 Respiratory Rate Blood Pressure 110/74 111/55 107/58 Blood Pressure [Right] O2 Sat by Pulse Oximetry 12/29/18 12/29/18 12/29/18 12:15 12:30 12:45 Temperature Pulse Rate 77 63 61 Respiratory Rate Blood Pressure 105/71 113/75 121/66 Blood Pressure [Right] O2 Sat by Pulse Oximetry 12/29/18 12/29/18 12/29/18 13:00 13:15 13:30 Temperature Pulse Rate 71 59 L 61 Respiratory Rate Blood Pressure 118/67 114/68 106/68 Blood Pressure [Right] O2 Sat by Pulse Oximetry 12/29/18 12/29/18 13:35 13:45 Temperature 97.9 F Pulse Rate 46 L 58 L Respiratory 20 Rate Blood Pressure 116/81 115/59 Blood Pressure [Right] O2 Sat by Pulse Oximetry General appearance: Present: mild distress, cachectic - EENT Eyes: PERRL, EOM intact ENT: hearing intact, clear oral mucosa Ears: bilateral: normal - Neck Neck: supple, normal ROM - Respiratory Respiratory effort: normal Respiratory: bilateral: CTA - Breasts Breasts: deferred - Cardiovascular Rhythm: regular Heart Sounds: Present: S1 & S2. Absent: gallop, rub Extremities: pulses intact, No edema, normal color, Full ROM - Gastrointestinal General gastrointestinal: Present: soft, non-tender, non-distended, normal bowel sounds Rectal Exam: deferred - Genitourinary Male genitourinary: deferred - Integumentary Integumentary: clear, warm, dry - Musculoskeletal Musculoskeletal: 1, strength equal bilaterally - Neurologic Neurologic: moves all extremities - Psychiatric Psychiatric: memory intact, appropriate mood/affect, intact judgment & insight - Labs CBC & Chem 7: 12/29/18 03:45 12/26/18 05:33 Labs: Abnormal lab results 12/29/18 12/29/18 Range/Units 03:45 03:45 WBC 3.8 L (4.5-11.0) K/mm3 RBC 3.05 L (3.65-5.03) M/mm3 Hgb 9.9 L (11.8-15.2) gm/dl Hct 30.3 L (35.5-45.6) % MCV 100 H (84-94) fl RDW 17.6 H (13.2-15.2) % Plt Count 102 L (140-440) K/mm3 [place] % (Auto) 11.1 H (0.0-7.3) % Eos % (Auto) 5.9 H (0.0-4.3) % Lymph # 1.0 L (1.2-5.4) K/mm3 Ferritin 430.8 H (13.0-400.0) ng/mL Medications & Allergies - Medications Allergies/Adverse Reactions: Allergies aspirin Allergy (Verified 03/16/17 01:25) Unknown stomach cramps pork derived (porcine) Allergy (Verified 03/16/17 01:27) Rash venom-honey bee [bee venom (honey bee)] Allergy (Verified 03/16/17 01:27) Anaphylaxis Pork/Porcine Containing Products Adverse Reaction (Severe, Verified 02/13/17 09:31) Nausea,VOMITING Home Medications: Home Medications Medication Instructions Recorded Confirmed Last Taken Type Acetaminophen [Acetaminophen TAB] 650 mg PO Q4H PRN tablet 05/05/18 12/24/18 09/21/18 Rx FLUoxetine HCL [Fluoxetine HCl] 40 mg PO QDAY #30 capsule 09/05/18 12/22/18 09/21/18 Rx levoFLOXacin [Levaquin TAB] 500 mg PO QDAY #7 tablet 12/01/18 12/24/18 Unknown Rx metroNIDAZOLE [Flagyl TAB] 500 mg PO Q8HR #21 tablet 12/01/18 12/24/18 Unknown Rx Apixaban [Eliquis] 2.5 mg PO Q12HR #60 tablet 12/29/18 Unknown Rx Apixaban [Eliquis] 2.5 mg PO Q12HR #60 tablet 12/29/18 Unknown Rx AtorvaSTATin [Lipitor] 40 mg PO QHS #30 tablet 12/29/18 Unknown Rx Epoetin Prashant 10,000 Unit [Procrit] 10,000 unit SUB-Q KATERYNA PRN #30 vial 12/29/18 Unknown Rx Famotidine [Pepcid] 10 mg PO BID #15 tablet 12/29/18 Unknown Rx Fe Fumarate/FA/Mv, Min Comb#15 1 each PO QDAY #30 capsule 12/29/18 Unknown Rx [Hemocyte Plus] ISOSORBIDE MONOnitrate [Imdur ER] 30 mg PO DAILY #30 tablet 12/29/18 Unknown Rx ISOSORBIDE MONOnitrate [Imdur ER] 30 mg PO QDAY #30 tablet 07/13/19 Unknown Rx Losartan [Cozaar] 100 mg PO QDAY 30 Days tablet 12/29/18 Unknown Rx Mag Hydrox/Aluminum Hyd/Simeth 355 ml PO DAILY PRN 15 Days 12/29/18 Unknown Rx [Maalox Advanced Suspension] oral.susp Metoprolol Xl [Metoprolol 100 mg PO QDAY #30 tablet 12/29/18 Unknown Rx SUCCINATE ER TAB] amLODIPine [Norvasc] 10 mg PO DAILY #30 tablet 12/29/18 Unknown Rx amLODIPine [Norvasc] 10 mg PO DAILY #30 tablet 12/29/18 Unknown Rx cloNIDine 0.3 mg PO ONCE #30 12/29/18 Unknown Rx hydrALAZINE [Apresoline TAB] 50 mg PO BID #60 tablet 12/29/18 Unknown Rx traMADol [Ultram 50 MG tab] 50 mg PO Q4HR PRN #8 tablet 12/29/18 Unknown Rx Active Medications: Generic Name Dose Route Start Last Admin Trade Name Freq PRN Reason Stop Dose Admin Al Hydrox/Mg Hydrox/Simethicone 20 ml 12/22/18 10:00 Alum-Mag Hydrox-Simeth 329-571-31ru/5ml PO DAILY PRN Dyspepsia Amlodipine Besylate 10 mg 12/22/18 10:00 12/28/18 09:57 Norvasc PO 10 mg DAILY BEAN Administration Apixaban 2.5 mg 12/27/18 10:00 12/28/18 21:37 Eliquis PO 2.5 mg Q12HR BEAN Administration Protocol Atorvastatin Calcium 40 mg 12/22/18 22:00 12/28/18 21:36 Lipitor PO 40 mg QHS BEAN Administration Clonidine HCl 0.3 mg 12/26/18 22:00 12/29/18 06:03 Catapres PO 0.3 mg Q8HR BEAN Administration Diphenhydramine HCl 25 mg 12/22/18 11:23 12/27/18 17:40 Benadryl IV 25 mg KATERYNA PRN Administration Itching Diphenhydramine HCl 25 mg 12/23/18 20:22 12/29/18 02:54 Benadryl PO 25 mg Q6H PRN Administration Itching Epoetin Prashant 10,000 unit 12/22/18 07:28 12/29/18 13:15 Procrit SUB-Q 10,000 unit KATERYNA PRN Administration hemodialysis Famotidine 5 mg 12/22/18 10:00 12/28/18 21:36 Pepcid PO 5 mg BID BEAN Administration Fluoxetine HCl 40 mg 12/22/18 10:00 12/28/18 09:55 Prozac PO Not Given QDAY BEAN Hydralazine HCl 25 mg 12/22/18 10:00 12/29/18 00:44 Apresoline PO 25 mg BID BEAN Administration Hydralazine HCl 10 mg 12/22/18 07:31 12/27/18 16:12 Apresoline IV 10 mg Q4H PRN Administration Hypertension Sodium Chloride 100 mls @ 999 mls/hr 12/25/18 09:09 Nacl 0.9% IV KATERYNA PRN Hypotension Isosorbide Mononitrate 30 mg 12/22/18 10:00 12/28/18 09:56 Imdur PO 30 mg QDAY BEAN Administration Losartan Potassium 100 mg 12/22/18 10:00 12/28/18 09:53 Cozaar PO 100 mg QDAY BEAN Administration Metoprolol Succinate 100 mg 12/22/18 10:00 12/28/18 09:54 Toprol Xl PO 100 mg QDAY BEAN Administration Morphine Sulfate 2 mg 12/25/18 02:36 12/29/18 04:42 Morphine IV 2 mg Q6H PRN Administration Pain , Severe (7-10) Multivitamins/Iron 1 each 12/22/18 10:00 12/28/18 09:57 Hemocyte Plus PO 1 each QDAY BEAN Administration Oxycodone/Acetaminophen 1 tab 12/22/18 17:41 12/26/18 11:11 Percocet 5/325 PO 1 tab Q6H PRN Administration Pain, Moderate (4-6) Senna/Docusate Sodium 1 tab 12/22/18 10:00 12/28/18 21:36 Senokot S PO 1 tab BID BEAN Administration
--- NOTE | 2018-12-29 17:11 | Progress Note ---
Assessment and Plan Imp: 1. L pleural effusion, transudative previously 2. NICMP 3. Chronic systolic CHF 4. ESRD 5. Pleurisy 6. Pancytopenia Rec: 1. Fluid could be related to CHF or 3rd spacing due to poor nutrition; Albumin and Prealbumin are low; recommend improving nutritional status and optimizing BP; patient admits to missing some dialysis sessions or coming off machine early due to cramping, which could be playing a role in the formation of his L ef fusion 2. F/u hematology eval. for pancytopenia 3. F/u remaining Pleural fluid studies; culture and cytology negative 4. Can go home pulm-gandhi, and f/u in office 1-2 weeks to review remaining fluid studies, and to repeat a CXR to eval. for recurrence Plan of care reviewed w/ patient, he understands/agrees Subjective Date of service: 12/29/18 Principal diagnosis: L Pleural effusion Interval history: No events. On RA. Awake, alert. SOB better after thoracentesis on the L. No significant chest pain currently. Active Medications Al Hydrox/Mg Hydrox/Simethicone (Alum-Mag Hydrox-Simeth [id number]/5ml) 20 ml PO DAILY PRN PRN Reason: Dyspepsia Amlodipine Besylate (Norvasc) 10 mg PO DAILY [facility] Last Admin: 12/28/18 09:57 Dose: 10 mg Documented by: Apixaban (Eliquis) 2.5 mg PO Q12HR BEAN; Protocol Last Admin: 12/29/18 10:00 Dose: Not Given Documented by: Atorvastatin Calcium (Lipitor) 40 mg PO QHS [facility] Last Admin: 12/28/18 21:36 Dose: 40 mg Documented by: Clonidine HCl (Catapres) 0.3 mg PO Q8HR BEAN Last Admin: 12/29/18 12:00 Dose: Not Given Documented by: Diphenhydramine HCl (Benadryl) 25 mg IV KATERYNA PRN PRN Reason: Itching Last Admin: 12/27/18 17:40 Dose: 25 mg Documented by: Diphenhydramine HCl (Benadryl) 25 mg PO Q6H PRN PRN Reason: Itching Last Admin: 12/29/18 02:54 Dose: 25 mg Documented by: Epoetin Prashant (Procrit) 10,000 unit SUB-Q KATERYNA PRN PRN Reason: hemodialysis Last Admin: 12/29/18 13:15 Dose: 10,000 unit Documented by: Famotidine (Pepcid) 5 mg PO BID [facility] Last Admin: 12/29/18 10:00 Dose: Not Given Documented by: Fluoxetine HCl (Prozac) 40 mg PO QDAY [facility] Last Admin: 12/28/18 09:55 Dose: Not Given Documented by: Hydralazine HCl (Apresoline) 25 mg PO BID [facility] Last Admin: 12/29/18 10:00 Dose: Not Given Documented by: Hydralazine HCl (Apresoline) 10 mg IV Q4H PRN PRN Reason: Hypertension Last Admin: 12/27/18 16:12 Dose: 10 mg Documented by: Sodium Chloride (Nacl 0.9%) 100 mls @ 999 mls/hr IV KATERYNA PRN PRN Reason: Hypotension Isosorbide Mononitrate (Imdur) 30 mg PO QDAY [facility] Last Admin: 12/28/18 09:56 Dose: 30 mg Documented by: Losartan Potassium (Cozaar) 100 mg PO QDAY [facility] Last Admin: 12/28/18 09:53 Dose: 100 mg Documented by: Metoprolol Succinate (Toprol Xl) 100 mg PO QDAY [facility] Last Admin: 12/28/18 09:54 Dose: 100 mg Documented by: Morphine Sulfate (Morphine) 2 mg IV Q6H PRN PRN Reason: Pain , Severe (7-10) Last Admin: 12/29/18 04:42 Dose: 2 mg Documented by: Multivitamins/Iron (Hemocyte Plus) 1 each PO QDAY [facility] Last Admin: 12/28/18 09:57 Dose: 1 each Documented by: Oxycodone/Acetaminophen (Percocet 5/325) 1 tab PO Q6H PRN PRN Reason: Pain, Moderate (4-6) Last Admin: 12/26/18 11:11 Dose: 1 tab Documented by: Senna/Docusate Sodium (Senokot S) 1 tab PO BID [facility] Last Admin: 12/29/18 10:00 Dose: Not Given Documented by: Objective Vital Signs - 12hr 12/29/18 12/29/18 12/29/18 08:00 09:05 10:30 Temperature 98.3 F 97.2 F L Pulse Rate 72 61 71 Respiratory 18 16 Rate Blood Pressure 156/91 Blood Pressure 160/91 [Right] O2 Sat by Pulse 96 Oximetry 12/29/18 12/29/18 12/29/18 10:35 10:45 11:00 Temperature Pulse Rate 68 69 72 Respiratory Rate Blood Pressure 166/97 147/93 129/79 Blood Pressure [Right] O2 Sat by Pulse Oximetry 12/29/18 12/29/18 12/29/18 11:15 11:30 11:45 Temperature Pulse Rate 53 L 64 72 Respiratory Rate Blood Pressure 118/63 110/74 111/55 Blood Pressure [Right] O2 Sat by Pulse Oximetry 12/29/18 12/29/18 12/29/18 12:00 12:15 12:30 Temperature Pulse Rate 67 77 63 Respiratory Rate Blood Pressure 107/58 105/71 113/75 Blood Pressure [Right] O2 Sat by Pulse Oximetry 12/29/18 12/29/18 12/29/18 12:45 13:00 13:15 Temperature Pulse Rate 61 71 59 L Respiratory Rate Blood Pressure 121/66 118/67 114/68 Blood Pressure [Right] O2 Sat by Pulse Oximetry 12/29/18 12/29/18 12/29/18 13:30 13:35 13:45 Temperature 97.9 F Pulse Rate 61 46 L 58 L Respiratory 20 Rate Blood Pressure 106/68 116/81 115/59 Blood Pressure [Right] O2 Sat by Pulse Oximetry Constitutional: no acute distress, alert, other (cachectic) Eyes: non-icteric ENT: oropharynx moist Neck: supple Effort: normal Ascultation: Right: clear, Left: diminished breath sounds (base) Cardiovascular: irregular rhythm (ir/ir, no mrg) Gastrointestinal: normoactive bowel sounds, soft, non-tender, non-distended Integumentary: normal Extremities: no cyanosis, no edema, pink and warm Neurologic: normal mental status, non-focal exam, pupils equal and round, CN II- XII normal Psychiatric: mood appropriate, affect normal CBC and BMP: 12/29/18 03:45 12/26/18 05:33 ABG, PT/INR, D-dimer: PT/INR, D-dimer PT 17.0 Sec. (12.2-14.9) H 12/22/18 04:12 INR 1.42 (0.87-1.13) H 12/22/18 04:12 1122.85 ng/mlDDU (0-234) H 12/22/18 04:12 Abnormal lab findings: Abnormal Labs 12/22/18 12/22/18 12/22/18 04:12 04:12 04:12 WBC 2.8 L RBC 2.92 L Hgb 9.6 L Hct 29.6 L MCV 101 H MCH 33 H RDW 16.9 H Plt Count 120 L [place] % (Auto) 10.5 H Eos % (Auto) Lymph # 0.7 L Seg Neutrophils # 1.7 L PT 17.0 H INR 1.42 H D-Dimer 1122.85 H Sodium Potassium Chloride BUN 42 H Creatinine 7.6 H Glucose 118 H TIBC Ferritin Total Creatine Kinase CK-MB (CK-2) Rel Index Troponin T 0.147 H* NT-Pro-B Natriuret Pep > 05427 H Albumin Prealbumin LDL Cholesterol Direct 34 L Hepatitis C Antibody 12/22/18 12/23/18 12/23/18 06:37 04:14 04:14 WBC RBC Hgb Hct MCV MCH RDW Plt Count [place] % (Auto) Eos % (Auto) Lymph # Seg Neutrophils # PT INR D-Dimer Sodium 135 L Potassium Chloride BUN 24 H Creatinine 4.7 H Glucose TIBC Ferritin Total Creatine Kinase 46 L CK-MB (CK-2) Rel Index 5.8 H Troponin T 0.144 H* 0.177 H* D NT-Pro-B Natriuret Pep Albumin Prealbumin LDL Cholesterol Direct Hepatitis C Antibody 12/23/18 12/25/18 12/25/18 12:21 05:49 05:49 WBC 3.3 L RBC 3.19 L Hgb 10.4 L Hct 31.6 L MCV 99 H MCH 33 H RDW 17.4 H Plt Count 119 L [place] % (Auto) 7.8 H Eos % (Auto) Lymph # 0.9 L Seg Neutrophils # PT INR D-Dimer Sodium 131 L Potassium 5.2 H Chloride 93.6 L BUN 45 H Creatinine 7.0 H Glucose TIBC Ferritin Total Creatine Kinase CK-MB (CK-2) Rel Index Troponin T 0.179 H* NT-Pro-B Natriuret Pep Albumin Prealbumin LDL Cholesterol Direct Hepatitis C Antibody 12/26/18 12/26/18 12/26/18 05:33 05:33 19:31 WBC RBC Hgb Hct MCV MCH RDW Plt Count [place] % (Auto) Eos % (Auto) Lymph # Seg Neutrophils # PT INR D-Dimer Sodium 131 L Potassium Chloride 95.4 L BUN 24 H Creatinine 4.8 H Glucose 106 H TIBC Ferritin Total Creatine Kinase CK-MB (CK-2) Rel Index Troponin T NT-Pro-B Natriuret Pep Albumin 3.1 L Prealbumin 0.139 L LDL Cholesterol Direct Hepatitis C Antibody Reactive A 12/28/18 12/29/18 12/29/18 04:35 03:45 03:45 WBC 3.8 L RBC 3.05 L Hgb 9.9 L Hct 30.3 L MCV 100 H MCH RDW 17.6 H Plt Count 102 L [place] % (Auto) 11.1 H Eos % (Auto) 5.9 H Lymph # 1.0 L Seg Neutrophils # PT INR D-Dimer Sodium Potassium Chloride BUN Creatinine Glucose TIBC 180 L Ferritin 430.8 H Total Creatine Kinase CK-MB (CK-2) Rel Index Troponin T NT-Pro-B Natriuret Pep Albumin Prealbumin LDL Cholesterol Direct Hepatitis C Antibody Chest x-ray: report reviewed, image reviewed Allied health notes reviewed: nursing
[2018-12-31 08:12] LABS: LDH,Body Fluid 80
[2019-01-02 12:12] LABS: ANA Screen, IFA Positive (Negative)
== END 2018-12-29 17:15 | disposition home or self-care (01) | DRG 291 ==
LOC: EDBD → ED 03:25 → 4A 07:33
PROVIDERS: ADMIT Internal Medicine; ATTEND Hospitalist
PROC: 5A1D70Z Performance of Urinary Filtration, Intermittent, Less than 6 Hours Per Day (ICD-10-PCS; 2018-12-22)
PROC: 5A1D70Z Performance of Urinary Filtration, Intermittent, Less than 6 Hours Per Day (ICD-10-PCS; 2018-12-25)
PROC: 0W9B3ZZ Drainage of Left Pleural Cavity, Percutaneous Approach (ICD-10-PCS; principal; 2018-12-26)
PROC: 5A1D70Z Performance of Urinary Filtration, Intermittent, Less than 6 Hours Per Day (ICD-10-PCS; 2018-12-27)
PROC: 5A1D70Z Performance of Urinary Filtration, Intermittent, Less than 6 Hours Per Day (ICD-10-PCS; 2018-12-29)
DX: I13.2 Hypertensive heart and chronic kidney disease with heart failure and with stage 5 chronic kidney disease, or end stage renal disease (principal); I50.23 Acute on chronic systolic (congestive) heart failure; N18.6 End stage renal disease; J96.21 Acute and chronic respiratory failure with hypoxia; D63.1 Anemia in chronic kidney disease; F43.10 Post-traumatic stress disorder, unspecified; X58.XXXA Exposure to other specified factors, initial encounter; J44.9 Chronic obstructive pulmonary disease, unspecified; I42.0 Dilated cardiomyopathy; I48.2 Chronic atrial fibrillation; J91.8 Pleural effusion in other conditions classified elsewhere; D61.818 Other pancytopenia; E11.22 Type 2 diabetes mellitus with diabetic chronic kidney disease; B19.20 Unspecified viral hepatitis C without hepatic coma; I25.10 Atherosclerotic heart disease of native coronary artery without angina pectoris; Z99.2 Dependence on renal dialysis; Z82.49 Family history of ischemic heart disease and other diseases of the circulatory system; Z89.202 Acquired absence of left upper limb, unspecified level; Z88.3 Allergy status to other anti-infective agents; Z91.030 Bee allergy status; Z91.018 Allergy to other foods; Z79.01 Long term (current) use of anticoagulants; Z79.899 Other long term (current) drug therapy; Z79.84 Long term (current) use of oral hypoglycemic drugs; Y93.89 Activity, other specified; Y92.89 Other specified places as the place of occurrence of the external cause; Y99.8 Other external cause status; Z86.718 Personal history of other venous thrombosis and embolism; Z99.81 Dependence on supplemental oxygen; Z87.891 Personal history of nicotine dependence
CPT/HCPCS: 32555; 36415; 71045; 71046; 71275; 80048; 80061; 80074; 82040; 82550; 82553; 82607; 82728; 82747; 82962; 83550; 83605; 83615; 83735; 83880; 84134; 84154; 84160; 84484; 85025; 85379; 85610; 85652; 85730; 86038; 87116; 87517; 87806; 87902; 88112; 88305; 89051; 93005; 93010; 93970; 94760; 96374; 96376; G0378; A9270-GY; J0360; J0885; J1200; J2270; J7030; Q9967

== ENCOUNTER 2019-01-02 14:27 | Inpatient (IN) | payer MEDICAID ==
[2019-01-02] MEDS ORDERED: NORCO 5/325 PO ONE (15:42)
--- NOTE | 2019-01-02 15:53 | Emergency Department Report ---
HPI - General Chief Complaint: Tube Replacement Time Seen by Provider: 01/02/19 15:36 - HPI HPI: [place] 26 The patient is a 71-year-old male presenting with a chief complaint of pain and swelling to right upper extremity. The patient has a history of a right upper extremity fistula that is no longer in use. The patient states last night he developed pain and swelling to the proximal right forearm. Patient states there was no preceding trauma. 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 abd surgery after war related ingury partial "stomach removal'. Left upper extremity amputation - Family History Family history: no significant - Social History Smoking Status: Former Smoker Substance Use Type: None - Medications Home Medications: Home Medications Medication Instructions Recorded Confirmed Last Taken Type Acetaminophen [Acetaminophen TAB] 650 mg PO Q4H PRN tablet 05/05/18 12/24/18 09/21/18 Rx FLUoxetine HCL [Fluoxetine HCl] 40 mg PO QDAY #30 capsule 09/05/18 12/22/18 09/21/18 Rx levoFLOXacin [Levaquin TAB] 500 mg PO QDAY #7 tablet 12/01/18 12/24/18 Unknown Rx metroNIDAZOLE [Flagyl TAB] 500 mg PO Q8HR #21 tablet 12/01/18 12/24/18 Unknown Rx Apixaban [Eliquis] 2.5 mg PO Q12HR #60 tablet 12/29/18 Unknown Rx Apixaban [Eliquis] 2.5 mg PO Q12HR #60 tablet 12/29/18 Unknown Rx AtorvaSTATin [Lipitor] 40 mg PO QHS #30 tablet 12/29/18 Unknown Rx Epoetin Prashant 10,000 Unit [Procrit] 10,000 unit SUB-Q KATERYNA PRN #30 vial 12/29/18 Unknown Rx Famotidine [Pepcid] 10 mg PO BID #15 tablet 12/29/18 Unknown Rx Fe Fumarate/FA/Mv, Min Comb#15 1 each PO QDAY #30 capsule 12/29/18 Unknown Rx [Hemocyte Plus] ISOSORBIDE MONOnitrate [Imdur ER] 30 mg PO DAILY #30 tablet 12/29/18 Unknown Rx ISOSORBIDE MONOnitrate [Imdur ER] 30 mg PO QDAY #30 tablet 12/29/18 Unknown Rx Losartan [Cozaar] 100 mg PO QDAY 30 Days tablet 12/29/18 Unknown Rx Mag Hydrox/Aluminum Hyd/Simeth 355 ml PO DAILY PRN 15 Days 12/29/18 Unknown Rx [Maalox Advanced Suspension] oral.susp Metoprolol Xl [Metoprolol 100 mg PO QDAY #30 tablet 12/29/18 Unknown Rx SUCCINATE ER TAB] amLODIPine [Norvasc] 10 mg PO DAILY #30 tablet 12/29/18 Unknown Rx amLODIPine [Norvasc] 10 mg PO DAILY #30 tablet 12/29/18 Unknown Rx cloNIDine 0.3 mg PO ONCE #30 12/29/18 Unknown Rx hydrALAZINE [Apresoline TAB] 50 mg PO BID #60 tablet 12/29/18 Unknown Rx traMADol [Ultram 50 MG tab] 50 mg PO Q4HR PRN #8 tablet 12/29/18 Unknown Rx ED Review of Systems ROS: Stated complaint: POSSIBLE CLOT Other details as noted in HPI Constitutional: no symptoms reported Eyes: denies: eye pain ENT: denies: throat pain Respiratory: no symptoms reported Cardiovascular: denies: chest pain Endocrine: no symptoms reported Gastrointestinal: denies: abdominal pain Genitourinary: denies: dysuria Musculoskeletal: myalgia Skin: denies: lesions Neurological: denies: headache Physical Exam - Physical Exam Vital Signs: Vital Signs 01/02/19 14:36 Temperature 98.4 F Pulse Rate 80 Respiratory 16 Rate Blood Pressure 158/107 O2 Sat by Pulse 100 Oximetry Physical Exam: GENERAL: The patient is well-developed well-nourished male lying on stretcher not appearing to be in acute distress eating food. [] HEENT: Normocephalic. Atraumatic. Extraocular motions are intact. Patient has moist mucous membranes. NECK: Supple. Trachea midline CHEST/LUNGS: There is no respiratory distress noted. HEART/CARDIOVASCULAR: Regular. There is no tachycardia. 2+ right radial pulse ABDOMEN:There is no abdominal distention. SKIN: There is a swollen mass to the proximal right forearm is very tender to touch. The skin in the region of the mass appears hyperpigmented. Evidence of a previous fistula just proximal to the forearm mass still has a thrill present NEURO: The patient is awake, alert, and oriented. The patient is cooperative. The patient has no focal neurologic deficits. The patient has normal speech MUSCULOSKELETAL: There is no evidence of acute injury. ED Course Vital Signs 01/02/19 14:36 Temperature 98.4 F Pulse Rate 80 Respiratory 16 Rate Blood Pressure 158/107 O2 Sat by Pulse 100 Oximetry - Consultations Consultation #1: 01/02/19 17:18 Vascular surgery paged 01/02/19 17:[address] Jimenez- recommends patient be admitted to the hospital for further evaluation. Request patient be made NPO after midnight ED Medical Decision Making - Lab Data Result diagrams: 01/02/19 15:55 01/02/19 15:55 Laboratory Tests 01/02/19 01/02/19 01/02/19 15:55 15:55 15:55 WBC 2.8 L RBC 3.56 L Hgb 11.4 L Hct 35.9 MCV 101 H MCH 32 MCHC 32 RDW 19.0 H Plt Count 92 L Lymph % (Auto) 30.5 [place] % (Auto) 15.2 H Eos % (Auto) 5.4 H Baso % (Auto) 1.1 Lymph # 0.8 L Teller # 0.4 Eos # 0.1 Baso # 0.0 Seg Neutrophils % 47.8 Seg Neutrophils # 1.3 L PT 17.2 H INR 1.44 H APTT 37.0 H Sodium 141 Potassium 4.5 Chloride 102.4 Carbon Dioxide 27 Anion Gap 16 BUN 34 H Creatinine 5.9 H Estimated GFR 12 BUN/Creatinine Ratio 6 Glucose 137 H Calcium 9.3 - Radiology Data Radiology results: report reviewed (right upper extremity Doppler), image reviewed (right upper extremity Doppler) [facility] [address] [place] [address] Vascular Lab Report Signed Patient: NEENA GARCIA#: [id number] : 02/12/1947 Acct:[id number] Age/Sex: 71 / M ADM Date: 01/02/19 Loc: ED Attending Dr: Ordering Physician: REED KRAMER MD Date of Service: 01/02/19 Procedure(s): VL venous duplex UE RT Accession Number(s): [id number] cc: REED KRAMER MD Ultrasound venous Doppler of the right upper extremity INDICATION: Right upper extremity pain and swelling TECHNIQUE: Real-time grayscale and Doppler imaging of the right upper extremity pain FINDINGS: No acute DVT is identified within the subclavian vein, right internal jugular vein, brachial vein or the radial/ulnar vein. There is a near occlusive thrombus identified within the cephalic vein IMPRESSION: No acute DVT. There is superficial thrombosis within the right cephalic vein at the level the mid forearm. Signer Name: Judah Mendoza MD Signed: 01/02/2019 4:41 PM Workstation Name: [id number] Transcribed By: Dictated By: Judah Mendoza MD Electronically Authenticated By: Judah Mendoza MD Signed Date/Time: 01/02/19 1641 DD/ 1640 TD/TT: - Differential Diagnosis DVT Critical care attestation.: If time is entered above; I have spent that time in minutes in the direct care of this critically ill patient, excluding procedure time. ED Disposition Clinical Impression: Right arm pain, Acute thrombosis of right cephalic vein Disposition: OP ADMIT IP TO THIS HOSP Is pt being admited?: Yes Does the pt Need Aspirin: No Condition: Fair [facility] [Primary Care Provider] - 3-5 Days Time of Disposition: 17:55 (hospitalist paged (Dr Vanegas))
[2019-01-02 16:19] LABS: INR 1.44 (0.87-1.13)
[2019-01-02 16:21] LABS: Basophils % (Auto) 1.1 % (0.0-1.8); Eosinophils # (Auto) 0.1 K/mm3 (0.0-0.4); Eosinophils % (Auto) 5.4 % (0.0-4.3); Hematocrit 35.9 % (35.5-45.6); Hemoglobin 11.4 gm/dl (11.8-15.2); Lymphocytes # (Auto) 0.8 K/mm3 (1.2-5.4); Lymphocytes % (Auto) 30.5 % (13.4-35.0); Mean Corpuscular HGB Conc 32 % (32-34); Mean Corpuscular Volume 101 fl (84-94); Monocytes # (Auto) 0.4 K/mm3 (0.0-0.8); Monocytes % (Auto) 15.2 % (0.0-7.3); Red Blood Count 3.56 M/mm3 (3.65-5.03)
[2019-01-02 16:23] LABS: Platelet Count 92 K/mm3 (140-440)
[2019-01-02 16:34] LABS: Calcium 9.3 mg/dL (8.4-10.2)
--- NOTE | 2019-01-02 16:45 | Vascular Lab Report ---
"Ultrasound venous Doppler of the right upper extremity INDICATION: Right upper extremity pain and swelling TECHNIQUE: Real-time grayscale and Doppler imaging of the right upper extremity pain FINDINGS: No acute DVT is identified within the subclavian vein, right internal jugular vein, brachia l vein or the radial/ulnar vein. There is a near occlusive thrombus identified within the cephalic ve in IMPRESSION: No acute DVT. There is superficial thrombosis within the right cephalic vein at the level the mid forearm. Signer Name: Judah Mendoza MD Signed: 01/02/2019 4:41 PM Workstation Name: [id number] | [id number]"
[2019-01-02] MEDS ORDERED: NORCO 5/325 ONE ×2 (19:26→19:27)
[2019-01-02] MEDS ORDERED: SODIUM CHLORIDE FLUSH SYRINGE 10 ML IV PRN (19:43)
[2019-01-02] MEDS ORDERED: ZOFRAN IV PRN (19:43)
[2019-01-02] MEDS ORDERED: TYLENOL PO PRN (19:43)
[2019-01-02] MEDS ORDERED: D50W (25GM) Syringe IV PRN (19:48)
[2019-01-02] MEDS: MORPHINE IV PRN (20:30)
[2019-01-02] MEDS ORDERED: MORPHINE ONE (20:31)
--- NOTE | 2019-01-02 21:26 | History and Physical Report ---
History of Present Illness Date of examination: 01/02/19 Date of admission: 01/02/19 19:43 Chief complaint: Right arm pain and swelling History of present illness: 71-year-old -Swedish male with history of ESRD on HD T/Th/S, hepatitis C, chronic anemia, hypertension, A. fib on Eliquis, who presents to [facility] ED with complaints of pain and swelling to right upper extremity. Patient previously had right forearm fistula that is no longer working due to multiple complications.Approximately 2 days ago patient stated that he started experiencing swelling followed by pain in right area. Patient states that his home health nurse came this morning to evaluate him and recommended that he goes to ED for further evaluation and treatment. Denies: Fever, nausea, vomiting, diarrhea, or recent injury/trauma to right upper extremity Past History Past Medical History: atrial fib (rate controlled on Eliquis), arthritis, COPD, diabetes, DVT, ESRD (on HD T/TH/S), heart failure (systolic), hypertension, other (PTSD, chronic hypoxic respiratory failure) Past Surgical History: Other ( neck and back surgery x3, Vessel taken from right thigh and placed in left upper arm d/t blood clot. abd surgery after war related ingury partial "stomach removal'. 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) Family history: no significant family history Medications and Allergies Allergies Allergy/AdvReac Type Severity Reaction Status Date / Time aspirin Allergy Unknown Verified 01/02/19 14:41 pork derived (porcine) Allergy Rash Verified 01/02/19 14:41 venom-honey bee Allergy Anaphylaxis Verified 01/02/19 14:41 [bee venom (honey bee)] Pork/Porcine Containing AdvReac Severe Nausea,VOMI Verified 01/02/19 14:41 Products TING Home Medications Medication Instructions Recorded Confirmed Last Taken Type Acetaminophen [Acetaminophen TAB] 650 mg PO Q4H PRN tablet 05/05/18 01/02/19 01/01/19 Rx FLUoxetine HCL [Fluoxetine HCl] 40 mg PO QDAY #30 capsule 09/05/18 01/02/19 01/01/19 Rx levoFLOXacin [Levaquin TAB] 500 mg PO QDAY #7 tablet 12/01/18 01/02/19 01/01/19 Rx metroNIDAZOLE [Flagyl TAB] 500 mg PO Q8HR #21 tablet 12/01/18 01/02/19 01/01/19 Rx Apixaban [Eliquis] 2.5 mg PO Q12HR #60 tablet 12/29/18 01/02/19 01/01/19 Rx AtorvaSTATin [Lipitor] 40 mg PO QHS #30 tablet 12/29/18 01/02/19 01/01/19 Rx Epoetin Prashant 10,000 Unit [Procrit] 10,000 unit SUB-Q KATERYNA PRN #30 vial 12/29/18 01/02/19 12/19/18 Rx Famotidine [Pepcid] 10 mg PO BID #15 tablet 12/29/18 01/02/19 01/01/19 Rx Metoprolol Xl [Metoprolol 100 mg PO QDAY #30 tablet 12/29/18 01/02/19 01/01/19 Rx SUCCINATE ER TAB] amLODIPine [Norvasc] 10 mg PO DAILY #30 tablet 12/29/18 01/02/19 01/01/19 Rx cloNIDine 0.3 mg PO ONCE #30 12/29/18 01/02/19 01/01/19 Rx hydrALAZINE [Apresoline TAB] 50 mg PO BID #60 tablet 12/29/18 01/02/19 01/01/19 Rx traMADol [Ultram 50 MG tab] 50 mg PO Q4HR PRN #8 tablet 12/29/18 01/02/19 01/01/19 Rx diphenhydrAMINE [Benadryl CAP] 50 mg PO Q8HR PRN 01/02/19 01/02/19 01/01/19 History Active Meds: Active Medications Acetaminophen (Tylenol) 650 mg PO Q4H PRN PRN Reason: Pain MILD(1-3)/Fever >100.5/DOUGLAS Amlodipine Besylate (Norvasc) 10 mg PO DAILY BEAN Apixaban (Eliquis) 2.5 mg PO Q12HR [facility]; Protocol Atorvastatin Calcium (Lipitor) 40 mg PO QHS [facility] Dextrose (D50w (25gm) Syringe) 50 ml IV PRN PRN PRN Reason: Hypoglycemia Famotidine (Pepcid) 10 mg PO BID BE[facility] Hydralazine HCl (Apresoline) 50 mg PO BID BEAN Hydralazine HCl (Apresoline) 10 mg IV Q4HR PRN PRN Reason: Blood Pressure Insulin Human Regular (Humulin R) 0 units SUB-Q Q6HR [facility]; Protocol Metoprolol Succinate (Toprol Xl) 100 mg PO QDAY [facility] Miscellaneous Medication (Fluoxetine Hcl [Fluoxetine Hcl]) 40 mg PO QDAY [facility] Morphine Sulfate (Morphine) 2 mg IV Q4H PRN PRN Reason: Pain, Moderate (4-6) Stop: 01/03/19 23:59 Last Admin: 01/02/19 20:30 Dose: 2 mg Documented by: Ondansetron HCl (Zofran) 4 mg IV Q8H PRN PRN Reason: Nausea And Vomiting Sodium Chloride (Sodium Chloride Flush Syringe 10 Ml) 10 ml IV BID BEAN Sodium Chloride (Sodium Chloride Flush Syringe 10 Ml) 10 ml IV PRN PRN PRN Reason: LINE FLUSH Review of Systems All systems: negative (reviewed and no additional remarkable complaints except as noted below) Musculoskeletal: myalgias, other (right arm pain and swelling) Exam - Physical Exam Narrative exam: Physical exam General appearance: Present: No acute distress, thin, well-developed, chronically ill appearing older adult male - EENT Eyes: Present: PERRL, EOM intact ENT: hearing intact, poor dentition - Neck Neck: Present: supple, normal ROM - Respiratory Respiratory effort: Non-labored Respiratory: bilateral: diminished (bases) - Cardiovascular Heart rate: 80 (bpm) Rhythm: regular Heart Sounds: Present: S1 & S2. Absent: rub, click - Extremities Extremities: no ischemia, pulses intact, abnormal (right lower arm amputation, left lower arm hematoma) - Peripheral Assessment Peripheral Pulses: within normal limits - Abdominal General gastrointestinal: soft, non-tender, normal bowel sounds - Integumentary Integumentary: Present: warm, dry, proximal right forearm is tender to touch, no warmth noted. mass appears hyperpigmented. Evidence of a previous fistula proximal to the forearm mass and still has a thrill present - Musculoskeletal Musculoskeletal: generalized weakness - Psychiatric Psychiatric: cooperative - Constitutional Vitals: Temp Pulse Resp BP Pulse Ox 97.9 F 85 16 128/91 99 01/02/19 20:40 01/02/19 20:40 01/02/19 20:40 01/02/19 20:40 01/02/19 20:40 Results - Labs CBC & Chem 7: 01/02/19 15:55 01/02/19 15:55 Labs: Laboratory Last Values WBC 2.8 K/mm3 (4.5-11.0) L 01/02/19 15:55 RBC 3.56 M/mm3 (3.65-5.03) L 01/02/19 15:55 Hgb 11.4 gm/dl (11.8-15.2) L 01/02/19 15:55 Hct 35.9 % (35.5-45.6) 01/02/19 15:55 MCV 101 fl (84-94) H 01/02/19 15:55 MCH 32 pg (28-32) 01/02/19 15:55 MCHC 32 % (32-34) 01/02/19 15:55 RDW 19.0 % (13.2-15.2) H 01/02/19 15:55 Plt Count 92 K/mm3 (140-440) L 01/02/19 15:55 Lymph % (Auto) 30.5 % (13.4-35.0) 01/02/19 15:55 [place] % (Auto) 15.2 % (0.0-7.3) H 01/02/19 15:55 Eos % (Auto) 5.4 % (0.0-4.3) H 01/02/19 15:55 Baso % (Auto) 1.1 % (0.0-1.8) 01/02/19 15:55 Lymph # 0.8 K/mm3 (1.2-5.4) L 01/02/19 15:55 [place] # 0.4 K/mm3 (0.0-0.8) 01/02/19 15:55 Eos # 0.1 K/mm3 (0.0-0.4) 01/02/19 15:55 Baso # 0.0 K/mm3 (0.0-0.1) 01/02/19 15:55 Seg Neutrophils % 47.8 % (40.0-70.0) 01/02/19 15:55 Seg Neutrophils # 1.3 K/mm3 (1.8-7.7) L 01/02/19 15:55 PT 17.2 Sec. (12.2-14.9) H 01/02/19 15:55 INR 1.44 (0.87-1.13) H 01/02/19 15:55 APTT 37.0 Sec. (24.2-36.6) H 01/02/19 15:55 Sodium 141 mmol/L (137-145) 01/02/19 15:55 Potassium 4.5 mmol/L (3.6-5.0) 01/02/19 15:55 Chloride 102.4 mmol/L (98-107) 01/02/19 15:55 Carbon Dioxide 27 mmol/L (22-30) 01/02/19 15:55 16 mmol/L 01/02/19 15:55 BUN 34 mg/dL (9-20) H 01/02/19 15:55 5.9 mg/dL (0.8-1.5) H 01/02/19 15:55 Estimated GFR 12 ml/min 01/02/19 15:55 6 % 01/02/19 15:55 Glucose 137 mg/dL (75-100) H 01/02/19 15:55 Calcium 9.3 mg/dL (8.4-10.2) 01/02/19 15:55 - Imaging and Cardiology Imaging and Cardiology: Right Upper Extremity Arterial Duplex: FINDINGS: No acute DVT is identified within the subclavian vein, right internal jugular vein, brachial vein or the radial/ulnar vein. There is a near occlusive thrombus identified within the cephalic vein IMPRESSION: No acute DVT. There is superficial thrombosis within the right cephalic vein at the level the mid forearm. Assessment and Plan Assessment and plan: 71-year-old -Swedish male with history of ESRD on HD T/Th/S, hepatitis C, chronic anemia, hypertension, A. fib on Eliquis, amputation of left hand/forearm who presents to [facility] ED with complaints of pain and swelling to right upper extremity for the past 2 days. Right upper extremity arterial duplex showed superficial thrombosis within the right cephalic vein, negative for DVT. Vascular surgery has her anything consultative and will evaluate patient in a.m. Will admit to surgical floor. Superficial thrombosis within the right cephalic vein ESRD on HD T/Th/S Chronic systolic heart failure Atrial fibrillation rate controlled on Eliquis Hypertension Chronic hypoxic respiratory failure Chronic anemia Hep C positive COPD Left hand/forearm amputation History of PTSD Plan: Continue supportive care Remote telemetry monitoring Vascular surgery (Dr. Jimenez) following Nephrology consulted (Dr. Panchal) for mgmt of HD Cardiology consulted Nothing by mouth midnight Monitor BP Resume home antihypertensive meds: Amlodipine 10 mg daily, hydralazine 50 mg twice a day, metoprolol 100 mg daily, IV hydralazine when necessary POC BG monitoring SSI coverage Monitor oxygen saturation Continue supplemental oxygen Albuterol when necessary Continue Prozac 40 mg daily Continue Lipitor 40 mg daily at bedtime DVT ppx AC on Eliquis Advance Directives: No VTE prophylaxis?: Chemical Plan of care discussed with patient/family: Yes
[2019-01-02] MEDS: HumuLIN R SUB-Q SCH (22:00)
[2019-01-02] MEDS ORDERED: ELIQUIS PO SCH (22:00)
[2019-01-03] MEDS: MORPHINE IV PRN ×4 (01:25→22:38)
[2019-01-03] MEDS: SODIUM CHLORIDE FLUSH SYRINGE 10 ML IV SCH ×3 (01:30→21:35)
[2019-01-03] MEDS: PEPCID PO SCH ×3 (01:33→21:34)
[2019-01-03 05:01] LABS: Hematocrit 33.7 % (35.5-45.6); Hemoglobin 11.2 gm/dl (11.8-15.2); Mean Corpuscular HGB Conc 33 % (32-34); Mean Corpuscular Volume 100 fl (84-94); Red Blood Count 3.37 M/mm3 (3.65-5.03); Red Cell Distribution Width 18.3 % (13.2-15.2)
[2019-01-03 05:26] LABS: Calcium 8.7 mg/dL (8.4-10.2)
[2019-01-03 05:28] LABS: Platelet Count 83 K/mm3 (140-440)
[2019-01-03 07:17] LABS: Anisocytosis 1+; Platelet Estimate Consistent w Auto; Total Cells Counted 100
[2019-01-03] MEDS: HumuLIN R SUB-Q SCH ×3 (07:54→22:00)
--- NOTE | 2019-01-03 09:45 | Vascular Lab Report ---
VL HEMODIALYSIS ACCESS HISTORY: Right upper extremity AV fistula access tomorrow TECHNIQUE: Grayscale ultrasound with spectral Doppler imaging. COMPARISON: None. FINDINGS: Velocity in the right radial artery measures 66 cm/s. Velocity in the right ulnar artery measures 50 cm/s. Images of the right AV fistula graft demonstrate no evidence for internal flow in the graft consisten t with thrombosis. IMPRESSION: Thrombosed right AVF. Arterial velocities as described above. Signer Name: Piero Lang Jr, MD Signed: 01/03/2019 9:40 AM Workstation Name: [id number]
[2019-01-03] MEDS: NORVASC PO SCH (09:51)
[2019-01-03] MEDS: TOPROL XL PO SCH (09:51)
[2019-01-03] MEDS: APRESOLINE IV PRN (09:54)
[2019-01-03] MEDS ORDERED: NON-FORMULARY (Fluoxetine Hcl [Fluoxetine Hcl] 40 MG) PO SCH (10:00)
--- NOTE | 2019-01-03 10:07 | Consultation ---
History of Present Illness Consult date: 01/03/19 Consult reason: congestive heart failure History of present illness: This is a 71-year old male with multiple medical problems. He has end-stage renal disease on hemodialysis. He has severe dilated nonischemic cardiomyopathy. He has single vessel, mild to moderate non-obstructive disease of the proximal LAD noted on a cardiac catheterization January of 2017. His latest cardiac workup was done at [facility] 3 months ago. He had a persantine thallium stress test that reports a no perfusion abnormalities, ejection fraction 40% by echoc ardiogram. He has chronic atrial fibrillation and is on low dose eliquis therapy. In addition, he has recurrent pleural effusion requiring frequent thoracentesis. Patient presents to this hospital with hematoma of the right upper extremity and pain. Found with acute thrombosis of the right cephalic vein and thrombosed nonfunctioning right AV fistula graft. Patient denies chest pain, unusual short ness of breath and palpitations. There is no lower extremity edema. Patient admits compliance with his medications. There is no ECG available and her had no chest x-ray. A cardiac consultation has been requested for CHF management. Past History Past Medical History: atrial fib (rate controlled on Eliquis), arthritis, COPD, diabetes, DVT, ESRD (on HD T//S), heart failure (systolic), hypertension, other (PTSD, chronic hypoxic respiratory failure) Past Surgical History: Other ( neck and back surgery x3, Vessel taken from right thigh and placed in left upper arm d/t blood clot. abd surgery after war related ingury partial "stomach removal'. 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) Family history: no significant family history Medications and Allergies Allergies Allergy/AdvReac Type Severity Reaction Status Date / Time aspirin Allergy Unknown Verified 01/02/19 14:41 pork derived (porcine) Allergy Rash Verified 01/02/19 14:41 venom-honey bee Allergy Anaphylaxis Verified 01/02/19 14:41 [bee venom (honey bee)] Pork/Porcine Containing AdvReac Severe Nausea,VOMI Verified 01/02/19 14:41 Products TING Home Medications Medication Instructions Recorded Confirmed Last Taken Type Acetaminophen [Acetaminophen TAB] 650 mg PO Q4H PRN tablet 05/05/18 01/02/19 01/01/19 Rx FLUoxetine HCL [Fluoxetine HCl] 40 mg PO QDAY #30 capsule 09/05/18 01/02/19 01/01/19 Rx levoFLOXacin [Levaquin TAB] 500 mg PO QDAY #7 tablet 12/01/18 01/02/19 01/01/19 Rx metroNIDAZOLE [Flagyl TAB] 500 mg PO Q8HR #21 tablet 12/01/18 01/02/19 01/01/19 Rx Apixaban [Eliquis] 2.5 mg PO Q12HR #60 tablet 12/29/18 01/02/19 01/01/19 Rx AtorvaSTATin [Lipitor] 40 mg PO QHS #30 tablet 12/29/18 01/02/19 01/01/19 Rx Epoetin Prashant 10,000 Unit [Procrit] 10,000 unit SUB-Q KATERYNA PRN #30 vial 12/29/18 01/02/19 12/19/18 Rx Famotidine [Pepcid] 10 mg PO BID #15 tablet 12/29/18 01/02/19 01/01/19 Rx Metoprolol Xl [Metoprolol 100 mg PO QDAY #30 tablet 12/29/18 01/02/19 01/01/19 Rx SUCCINATE ER TAB] amLODIPine [Norvasc] 10 mg PO DAILY #30 tablet 12/29/18 01/02/19 01/01/19 Rx cloNIDine 0.3 mg PO ONCE #30 12/29/18 01/02/19 01/01/19 Rx hydrALAZINE [Apresoline TAB] 50 mg PO BID #60 tablet 12/29/18 01/02/19 01/01/19 Rx traMADol [Ultram 50 MG tab] 50 mg PO Q4HR PRN #8 tablet 12/29/18 01/02/19 01/01/19 Rx diphenhydrAMINE [Benadryl CAP] 50 mg PO Q8HR PRN 01/02/19 01/02/19 01/01/19 History Active Meds: Active Medications Acetaminophen (Tylenol) 650 mg PO Q4H PRN PRN Reason: Pain MILD(1-3)/Fever >100.5/DOUGLAS Amlodipine Besylate (Norvasc) 10 mg PO DAILY BEAN Last Admin: 01/03/19 09:51 Dose: 10 mg Documented by: Atorvastatin Calcium (Lipitor) 40 mg PO QHS [facility] Dextrose (D50w (25gm) Syringe) 50 ml IV PRN PRN PRN Reason: Hypoglycemia Famotidine (Pepcid) 10 mg PO BID [facility] Last Admin: 01/03/19 09:51 Dose: 10 mg Documented by: Hydralazine HCl (Apresoline) 50 mg PO BID [facility] Hydralazine HCl (Apresoline) 10 mg IV Q4H PRN PRN Reason: Blood Pressure Last Admin: 01/03/19 09:54 Dose: 10 mg Documented by: Insulin Human Regular (Humulin R) 0 units SUB-Q Q6HR [facility]; Protocol Last Admin: 01/03/19 07:54 Dose: Not Given Documented by: Metoprolol Succinate (Toprol Xl) 100 mg PO QDAY [facility] Last Admin: 01/03/19 09:51 Dose: 100 mg Documented by: Miscellaneous Medication (Fluoxetine Hcl [Fluoxetine Hcl]) 40 mg PO QDAY [facility] Morphine Sulfate (Morphine) 2 mg IV Q4H PRN PRN Reason: Pain, Moderate (4-6) Stop: 01/03/19 23:59 Last Admin: 01/03/19 07:57 Dose: 2 mg Documented by: Ondansetron HCl (Zofran) 4 mg IV Q8H PRN PRN Reason: Nausea And Vomiting Sodium Chloride (Sodium Chloride Flush Syringe 10 Ml) 10 ml IV BID [facility] Last Admin: 01/03/19 01:30 Dose: 10 ml Documented by: Sodium Chloride (Sodium Chloride Flush Syringe 10 Ml) 10 ml IV PRN PRN PRN Reason: LINE FLUSH Physical Examination Vital Signs Temp Pulse Resp BP Pulse Ox 98.4 F 80 16 158/107 100 01/02/19 14:36 01/02/19 14:36 01/02/19 14:36 01/02/19 14:36 01/02/19 14:36 General appearance: no acute distress HEENT: Positive: PERRL Neck: Positive: trachea midline Cardiac: Positive: irregularly irregular Lungs: Positive: Decreased Breath Sounds Neuro: Positive: Grossly Intact Extremities: Absent: edema Results 01/03/19 04:33 01/03/19 04:33 Coagulation 01/02/19 Range/Units 15:55 PT 17.2 H (12.2-14.9) Sec. INR 1.44 H (0.87-1.13) APTT 37.0 H (24.2-36.6) Sec. CBC 01/02/19 01/03/19 Range/Units 15:55 04:33 WBC 2.8 L 3.0 L (4.5-11.0) K/mm3 RBC 3.56 L 3.37 L (3.65-5.03) M/mm3 Hgb 11.4 L 11.2 L (11.8-15.2) gm/dl Hct 35.9 33.7 L (35.5-45.6) % Plt Count 92 L 83 L (140-440) K/mm3 Lymph # 0.8 L (1.2-5.4) K/mm3 [place] # 0.4 (0.0-0.8) K/mm3 Eos # 0.1 (0.0-0.4) K/mm3 Baso # 0.0 (0.0-0.1) K/mm3 Comprehensive Metabolic Panel 01/02/19 01/03/19 Range/Units 15:55 04:33 Sodium 141 139 (137-145) mmol/L Potassium 4.5 5.4 H (3.6-5.0) mmol/L Chloride 102.4 102.3 (98-107) mmol/L Carbon Dioxide 27 21 L (22-30) mmol/L BUN 34 H 40 H (9-20) mg/dL Creatinine 5.9 H 6.3 H (0.8-1.5) mg/dL Glucose 137 H 93 (75-100) mg/dL Calcium 9.3 8.7 (8.4-10.2) mg/dL Assessment and Plan Acute Thrombosis of Right cephalic vein and right AV fistula graft Chronic systolic heart failure DM type II PVD s/p left arm amputation Hypertension ESRD on hemodialysis Thrombocytopenia, chronic Hx of Recurrent Left pleural effusion Hx of Nonischemic CMP EF 10-15% by echo 08/2018 Non-obstructive CAD [facility] 01/2017 revealed non-obstructive, single vessel disease of the proximal LAD recommended for medical therapy. normal perfusion MPI at [facility] 10/03/18. Permanent Atrial fibrillation rate controlled with metoprolol on low dose eliquis as an outpatient Recommendations: Obtain a 12 lead ECG and CXR. Dialysis for fluid management. Medical therapy for nonischemic cardiomyopathy, chronic systolic heart failure and permanent atrial fibrillation.
[2019-01-03] MEDS: APRESOLINE PO SCH ×2 (10:16→21:34)
[2019-01-03] MEDS: PROzac PO SCH (10:23)
--- NOTE | 2019-01-03 10:35 | Consultation ---
History of Present Illness - Reason for Consult Consult date: 01/03/19 Right forearm hematoma - History of Present Illness 71-year-old -Mexican male with history of ESRD on HD T/Th/S, hepatitis C, chronic anemia, hypertension, A. fib on Eliquis, who presents to [facility] ED with complaints of pain and swelling to right upper extremity. Patient previously had right forearm fistula that is no longer working due to multiple complications.Approximately 2 days ago patient stated that he started experiencing swelling followed by pain in right area. Patient states that his home health nurse came this morning to evaluate him and recommended that he goes to ED for further evaluation and treatment. Denies: Fever, nausea, vomiting, diarrhea, or recent injury/trauma to right upper extremity Vascular was consulted for right upper extremity forearm hematoma. Ultrasound was performed of the right upper extremity demonstrating that the AV fistula is thrombosed and it was ligated in the past. There is no extravasation or pseudoaneurysm around the hematoma on ultrasound. The patient has a palpable right radial and ulnar pulse, and palpable pedal pulses. The left upper extremity is amputated at the forearm. This was due to a chronic nonhealing wound. The right forearm has a large hematoma at the mid forearm. Due to patient's cachexia, his brachial artery is enlarged and visible at his antecubital fossa. Ultrasound also demonstrated a cephalic vein thrombus which has some associated pain and could be subacute. Past History Past Medical History: atrial fib (rate controlled on Eliquis), arthritis, COPD, diabetes, DVT, ESRD (on HD T/TH/S), heart failure (systolic), hypertension, other (PTSD, chronic hypoxic respiratory failure) Past Surgical History: Other ( neck and back surgery x3, Vessel taken from right thigh and placed in left upper arm d/t blood clot. abd surgery after war related ingury partial "stomach removal'. 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) Family history: no significant family history Medications and Allergies Allergies Allergy/AdvReac Type Severity Reaction Status Date / Time aspirin Allergy Unknown Verified 01/02/19 14:41 pork derived (porcine) Allergy Rash Verified 01/02/19 14:41 venom-honey bee Allergy Anaphylaxis Verified 01/02/19 14:41 [bee venom (honey bee)] Pork/Porcine Containing AdvReac Severe Nausea,VOMI Verified 01/02/19 14:41 Products TING Home Medications Medication Instructions Recorded Confirmed Last Taken Type Acetaminophen [Acetaminophen TAB] 650 mg PO Q4H PRN tablet 05/05/18 01/02/19 01/01/19 Rx FLUoxetine HCL [Fluoxetine HCl] 40 mg PO QDAY #30 capsule 09/05/18 01/02/19 01/01/19 Rx levoFLOXacin [Levaquin TAB] 500 mg PO QDAY #7 tablet 12/01/18 01/02/19 01/01/19 Rx metroNIDAZOLE [Flagyl TAB] 500 mg PO Q8HR #21 tablet 12/01/18 01/02/19 01/01/19 Rx Apixaban [Eliquis] 2.5 mg PO Q12HR #60 tablet 12/29/18 01/02/19 01/01/19 Rx AtorvaSTATin [Lipitor] 40 mg PO QHS #30 tablet 12/29/18 01/02/19 01/01/19 Rx Epoetin Prashant 10,000 Unit [Procrit] 10,000 unit SUB-Q KATERYNA PRN #30 vial 12/29/18 01/02/19 12/19/18 Rx Famotidine [Pepcid] 10 mg PO BID #15 tablet 12/29/18 01/02/19 01/01/19 Rx Metoprolol Xl [Metoprolol 100 mg PO QDAY #30 tablet 12/29/18 01/02/19 01/01/19 Rx SUCCINATE ER TAB] amLODIPine [Norvasc] 10 mg PO DAILY #30 tablet 12/29/18 01/02/19 01/01/19 Rx cloNIDine 0.3 mg PO ONCE #30 12/29/18 01/02/19 01/01/19 Rx hydrALAZINE [Apresoline TAB] 50 mg PO BID #60 tablet 12/29/18 01/02/19 01/01/19 Rx traMADol [Ultram 50 MG tab] 50 mg PO Q4HR PRN #8 tablet 12/29/18 01/02/19 01/01/19 Rx diphenhydrAMINE [Benadryl CAP] 50 mg PO Q8HR PRN 01/02/19 01/02/19 01/01/19 History Active Meds: Active Medications Acetaminophen (Tylenol) 650 mg PO Q4H PRN PRN Reason: Pain MILD(1-3)/Fever >100.5/DOUGLAS Amlodipine Besylate (Norvasc) 10 mg PO DAILY [facility] Last Admin: 01/03/19 09:51 Dose: 10 mg Documented by: Atorvastatin Calcium (Lipitor) 40 mg PO QHS [facility] Dextrose (D50w (25gm) Syringe) 50 ml IV PRN PRN PRN Reason: Hypoglycemia Famotidine (Pepcid) 10 mg PO BID [facility] Last Admin: 01/03/19 09:51 Dose: 10 mg Documented by: Fluoxetine HCl (Prozac) 40 mg PO QDAY [facility] Last Admin: 01/03/19 10:23 Dose: 40 mg Documented by: Hydralazine HCl (Apresoline) 50 mg PO BID [facility] Last Admin: 01/03/19 10:16 Dose: 50 mg Documented by: Hydralazine HCl (Apresoline) 10 mg IV Q4H PRN PRN Reason: Blood Pressure Last Admin: 01/03/19 09:54 Dose: 10 mg Documented by: Insulin Human Regular (Humulin R) 0 units SUB-Q Q6HR [facility]; Protocol Last Admin: 01/03/19 07:54 Dose: Not Given Documented by: Metoprolol Succinate (Toprol Xl) 100 mg PO QDAY [facility] Last Admin: 01/03/19 09:51 Dose: 100 mg Documented by: Morphine Sulfate (Morphine) 2 mg IV Q4H PRN PRN Reason: Pain, Moderate (4-6) Stop: 01/03/19 23:59 Last Admin: 01/03/19 07:57 Dose: 2 mg Documented by: Ondansetron HCl (Zofran) 4 mg IV Q8H PRN PRN Reason: Nausea And Vomiting Sodium Chloride (Sodium Chloride Flush Syringe 10 Ml) 10 ml IV BID [facility] Last Admin: 01/03/19 10:18 Dose: 10 ml Documented by: Sodium Chloride (Sodium Chloride Flush Syringe 10 Ml) 10 ml IV PRN PRN PRN Reason: LINE FLUSH Review of Systems All systems: negative (see HPI) Exam - Constitutional Vitals: Temp Pulse Resp BP Pulse Ox 97.8 F 80 18 150/104 100 01/03/19 07:56 01/03/19 10:16 01/03/19 07:56 01/03/19 10:16 01/03/19 07:56 General appearance: Present: no acute distress - EENT Eyes: Present: EOM intact ENT: hearing intact - Respiratory Respiratory effort: normal - Extremities Extremities: normal temperature, normal color, abnormal (see HPI) - Abdominal General gastrointestinal: Present: soft - Psychiatric Psychiatric: appropriate mood/affect, cooperative Results - Labs CBC & Chem 7: 01/03/19 04:33 01/03/19 04:33 Labs: Abnormal lab results 01/02/19 01/02/19 01/02/19 Range/Units 15:55 15:55 15:55 WBC 2.8 L (4.5-11.0) K/mm3 RBC 3.56 L (3.65-5.03) M/mm3 Hgb 11.4 L (11.8-15.2) gm/dl Hct (35.5-45.6) % MCV 101 H (84-94) fl MCH (28-32) pg RDW 19.0 H (13.2-15.2) % Plt Count 92 L (140-440) K/mm3 Riley % (Auto) 15.2 H (0.0-7.3) % Eos % (Auto) 5.4 H (0.0-4.3) % Lymph # 0.8 L (1.2-5.4) K/mm3 Monocytes % (Manual) (0.0-7.3) % Eosinophils % (Manual) (0.0-4.3) % Seg Neutrophils # 1.3 L (1.8-7.7) K/mm3 Seg Neutrophils # Man (1.8-7.7) K/mm3 Lymphocytes # (Manual) (1.2-5.4) K/mm3 PT 17.2 H (12.2-14.9) Sec. INR 1.44 H (0.87-1.13) APTT 37.0 H (24.2-36.6) Sec. Potassium (3.6-5.0) mmol/L Carbon Dioxide (22-30) mmol/L BUN 34 H (9-20) mg/dL Creatinine 5.9 H (0.8-1.5) mg/dL Glucose 137 H (75-100) mg/dL 01/03/19 01/03/19 Range/Units 04:33 04:33 WBC 3.0 L (4.5-11.0) K/mm3 RBC 3.37 L (3.65-5.03) M/mm3 Hgb 11.2 L (11.8-15.2) gm/dl Hct 33.7 L (35.5-45.6) % MCV 100 H (84-94) fl MCH 33 H (28-32) pg RDW 18.3 H (13.2-15.2) % Plt Count 83 L (140-440) K/mm3 Riley % (Auto) (0.0-7.3) % Eos % (Auto) (0.0-4.3) % Lymph # (1.2-5.4) K/mm3 Monocytes % (Manual) 13.0 H (0.0-7.3) % Eosinophils % (Manual) 8.0 H (0.0-4.3) % Seg Neutrophils # (1.8-7.7) K/mm3 Seg Neutrophils # Man 1.5 L (1.8-7.7) K/mm3 Lymphocytes # (Manual) 0.8 L (1.2-5.4) K/mm3 PT (12.2-14.9) Sec. INR (0.87-1.13) APTT (24.2-36.6) Sec. Potassium 5.4 H (3.6-5.0) mmol/L Carbon Dioxide 21 L (22-30) mmol/L BUN 40 H (9-20) mg/dL Creatinine 6.3 H (0.8-1.5) mg/dL Glucose (75-100) mg/dL - Imaging and Cardiology Venous US: report reviewed, image reviewed Assessment and Plan 71-year-old male with end-stage renal disease and multiple medical issues who presents with right forearm hematoma. History of left forearm amputation for nonhealing wound. The radial and ulnar artery of the right upper extremity are palpable with good Doppler triphasic waveforms. There should be adequate blood flow to heal. No pseudoaneurysm or extravasation in the forearm hematoma. The right upper extremity AV fistula has previously been ligated and it is thrombosed. The cephalic vein in the arm and antecubital fossa may be subacutely thrombosed. Warm compresses, 15 minutes out of 15 minutes off are usually adequate for pain relief. Right upper extremity forearm hematoma is painful and may benefit from drainage. Etiology for the hematoma may be due to a collateral vein which has bled and subsequently thrombosed. Consider general surgery consult for drainage and subsequent wound care. Patient was previously on Eliquis. I have held the Eliquis. The patient may benefit from holding anticoagulation for 1-2 weeks based on general surgery decision making. Patient's vascular surgeon is Dr. Gil. Discussed with the patient should follow-up with his vascular surgeon.
[2019-01-03] MEDS ORDERED: PROCRIT IV PRN (11:00)
[2019-01-03] MEDS ORDERED: NACL 0.9% 100 ML IV PRN (11:00)
--- NOTE | 2019-01-03 11:10 | Consultation ---
History of Present Illness - Reason for Consult Consult date: 01/03/19 end stage renal disease Requesting physician: GINA CONTRERAS - History of Present Illness 71-year-old male with a history of hypertension, hepatitis C and End stage renal disease on hemodialysis on a Monday, and Monday schedule. Patient presents with a right upper extremity swelling which is quite painful. Patient denies any trauma but on further inquiry, he does admit to frequent falls and he fell on or Monday last week. He does not remember hitting his hand or arm. No fever or chills. No other constitutional symptoms. Patient was admitted because of these problems and was seen by vascular and is now being evaluated by general surgeon. Past History Past Medical History: atrial fib (rate controlled on Eliquis), anemia, a rthritis, COPD, diabetes, DVT, ESRD (on HD //), heart failure (systolic), hepatitis (C), hypertension, other (PTSD, chronic hypoxic respiratory failure) Past Surgical History: Other ( neck and back surgery x3, Vessel taken from right thigh and placed in left upper arm d/t blood clot. abd surgery after war related ingury partial "stomach removal'. 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 denies: smoking (Quit 4-5 years ago), alcohol abuse (Quit 4-5 yrs ago), prescription drug abuse, IV drug use Family history: hypertension (in siblings and mother), other (father had liver cirrhosis) Medications and Allergies Allergies Allergy/AdvReac Type Severity Reaction Status Date / Time aspirin Allergy Unknown Verified 01/02/19 14:41 pork derived (porcine) Allergy Rash Verified 01/02/19 14:41 venom-honey bee Allergy Anaphylaxis Verified 01/02/19 14:41 [bee venom (honey bee)] Pork/Porcine Containing AdvReac Severe Nausea,VOMI Verified 01/02/19 14:41 Products TING Home Medications Medication Instructions Recorded Confirmed Last Taken Type Acetaminophen [Acetaminophen TAB] 650 mg PO Q4H PRN tablet 05/05/18 01/02/19 01/01/19 Rx FLUoxetine HCL [Fluoxetine HCl] 40 mg PO QDAY #30 capsule 09/05/18 01/02/19 01/01/19 Rx levoFLOXacin [Levaquin TAB] 500 mg PO QDAY #7 tablet 12/01/18 01/02/19 01/01/19 Rx metroNIDAZOLE [Flagyl TAB] 500 mg PO Q8HR #21 tablet 12/01/18 01/02/19 01/01/19 Rx Apixaban [Eliquis] 2.5 mg PO Q12HR #60 tablet 12/29/18 01/02/19 01/01/19 Rx AtorvaSTATin [Lipitor] 40 mg PO QHS #30 tablet 12/29/18 01/02/19 01/01/19 Rx Epoetin Prashant 10,000 Unit [Procrit] 10,000 unit SUB-Q KATERYNA PRN #30 vial 12/29/18 01/02/19 12/19/18 Rx Famotidine [Pepcid] 10 mg PO BID #15 tablet 12/29/18 01/02/19 01/01/19 Rx Metoprolol Xl [Metoprolol 100 mg PO QDAY #30 tablet 12/29/18 01/02/19 01/01/19 Rx SUCCINATE ER TAB] amLODIPine [Norvasc] 10 mg PO DAILY #30 tablet 12/29/18 01/02/19 01/01/19 Rx cloNIDine 0.3 mg PO ONCE #30 12/29/18 01/02/19 01/01/19 Rx hydrALAZINE [Apresoline TAB] 50 mg PO BID #60 tablet 12/29/18 01/02/19 01/01/19 Rx traMADol [Ultram 50 MG tab] 50 mg PO Q4HR PRN #8 tablet 12/29/18 01/02/19 01/01/19 Rx diphenhydrAMINE [Benadryl CAP] 50 mg PO Q8HR PRN 01/02/19 01/02/19 01/01/19 History Active Meds: Active Medications Acetaminophen (Tylenol) 650 mg PO Q4H PRN PRN Reason: Pain MILD(1-3)/Fever >100.5/DOUGLAS Amlodipine Besylate (Norvasc) 10 mg PO DAILY [facility] Last Admin: 01/03/19 09:51 Dose: 10 mg Documented by: Atorvastatin Calcium (Lipitor) 40 mg PO QHS [facility] Dextrose (D50w (25gm) Syringe) 50 ml IV PRN PRN PRN Reason: Hypoglycemia Epoetin Prashant (Procrit) 10,000 unit IV KATERYNA PRN PRN Reason: hemodialysis Famotidine (Pepcid) 10 mg PO BID [facility] Last Admin: 01/03/19 09:51 Dose: 10 mg Documented by: Fluoxetine HCl (Prozac) 40 mg PO QDAY [facility] Last Admin: 01/03/19 10:23 Dose: 40 mg Documented by: Hydralazine HCl (Apresoline) 50 mg PO BID [facility] Last Admin: 01/03/19 10:16 Dose: 50 mg Documented by: Hydralazine HCl (Apresoline) 10 mg IV Q4H PRN PRN Reason: Blood Pressure Last Admin: 01/03/19 09:54 Dose: 10 mg Documented by: Sodium Chloride (Nacl 0.9%) 100 mls @ 999 mls/hr IV KATERYNA PRN PRN Reason: Hypotension Insulin Human Regular (Humulin R) 0 units SUB-Q Q6HR [facility]; Protocol Last Admin: 01/03/19 07:54 Dose: Not Given Documented by: Metoprolol Succinate (Toprol Xl) 100 mg PO QDAY [facility] Last Admin: 01/03/19 09:51 Dose: 100 mg Documented by: Morphine Sulfate (Morphine) 2 mg IV Q4H PRN PRN Reason: Pain, Moderate (4-6) Stop: 01/03/19 23:59 Last Admin: 01/03/19 07:57 Dose: 2 mg Documented by: Ondansetron HCl (Zofran) 4 mg IV Q8H PRN PRN Reason: Nausea And Vomiting Sodium Chloride (Sodium Chloride Flush Syringe 10 Ml) 10 ml IV BID [facility] Last Admin: 01/03/19 10:18 Dose: 10 ml Documented by: Sodium Chloride (Sodium Chloride Flush Syringe 10 Ml) 10 ml IV PRN PRN PRN Reason: LINE FLUSH Review of Systems All systems: negative (Constitutional: no fever or chills. No anorexia or weight loss. HEENT: No sore throat or sinus drainage no hearing or vision impairment . Cardiovascular: Occasional chest pain, shortness of breath, palpitations, lower extremity swelling or dizziness. Respiratory: No cough, sputum, shortness of breath, hemoptysis or wheezing. Gastrointestinal: Admits to nausea, no vomiting , diarrhea, abdominal pain, hematemesis or melena. Genitourinary: He does not make urine. No frequency urgency dysuria or hematuria. hematologic: No abnormal bleeding but admits to easy bruising. Integumentary: Admits to itching but no rash. Neurological: No headache no focal weakness or numbness, no syncope or seizures. Musculoskeletal: Admits to joint pains no stiffness. Psychiatry: Admits to anxiety and depression) Exam - Vital Signs Vital signs: Vital Signs Temp Pulse Resp BP Pulse Ox 98.4 F 80 16 158/107 100 01/02/19 14:36 01/02/19 14:36 01/02/19 14:36 01/02/19 14:36 01/02/19 14:36 - Physical Exam Narrative exam: Elderly -Dutch male lying in bed in no acute distress HEENT: NCAT, pink oral mucous membrane Neck: Supple, no venous distention CVS: S1S2 RRR with no murmur, rub or gallop Chest: Clear to auscultation Abdomen: Protuberant, soft, nontender, no organomegaly, bowel sounds are present Extremities: No edema, left forearm amputation healed, swelling which is soft to firm right upper extremity around clotted AV graft Neuro: Awake, alert no focal deficits Results - Lab Results 01/04/19 04:35 01/04/19 04:35 Most recent lab results Calcium 8.7 mg/dL (8.4-10.2) 01/03/19 04:33 Assessment and Plan - Patient Problems (1) Swelling of right upper extremity Current Visit: Yes Status: Acute Plan to address problem: Probably a hematoma. Patient was on Plavix which has been stopped. Being evalu ated by general surgeon (2) Chronic HFrEF (heart failure with reduced ejection fraction) Current Visit: Yes Status: Acute Plan to address problem: Patient is stable regarding volume status. (3) Anemia in CKD (chronic kidney disease) Current Visit: No Status: Acute Qualifiers: Chronic kidney disease stage: on chronic dialysis Qualified Code(s): N18.6 - End stage renal disease; D63.1 - Anemia in chronic kidney disease; Z99.2 - Dependence on renal dialysis Plan to address problem: Erythropoetin on dialysis if hemoglobin is less than 11 g/dL. Follow-up hemoglobin (4) ESRD needing dialysis Current Visit: No Status: Chronic Plan to address problem: Hemodialysis today and then on a Monday, and Monday schedule (5) Hypertensive chronic kidney disease with stage 5 chronic kidney disease or end stage renal disease Current Visit: No Status: Chronic Plan to address problem: Follow-up blood pressure on current medications. (6) Type 2 diabetes mellitus with diabetic chronic kidney disease Current Visit: No Status: Chronic Qualifiers: Chronic kidney disease stage: on chronic dialysis Plan to address problem: Blood sugar management by primary attending
--- NOTE | 2019-01-03 11:35 | Consultation ---
History of Present Illness Consult date: 01/03/19 Reason for consult: other (right arm swelling) Requesting physician: GINA CONTRERAS Chief complaint: right forearm swelling and pain - History of present illness History of present illness: 71yo M with multiple medical problems who presented due to acute pain and swelling in the right forearm. Patient has been evaluated by vascular surgery. There does not seem to be any association with his fistula. Patient reports the fistula has not been used in 4 years. This began last Monday. He was not active or doing any strenuous activity. Denies any trauma. He was resting at home. On Monday morning he noticed a large painful swelling in the right forearm. It has been causing him severe pain ever since. There have been no recent needle sticks or anything that might have caused bleeding. He would like the swelling to be addressed to relieve the pain. Gen. surgery has been consulted for this issue. Patient last took his Eliquis on Monday. Past History Past Medical History: atrial fib (rate controlled on Eliquis), anemia, arthritis, COPD, diabetes, DVT, ESRD (on HD T//S), heart failure (systolic), hepatitis (C), hypertension, other (PTSD, chronic hypoxic respiratory failure) Past Surgical History: Other ( neck and back surgery x3, Vessel taken from right thigh and placed in left upper arm d/t blood clot. abd surgery after war related ingury partial "stomach removal'. 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 denies: smoking (Quit 4-5 years ago), alcohol abuse (Quit 4-5 yrs ago), prescription drug abuse, IV drug use Family history: hypertension (in siblings and mother), other (father had liver cirrhosis) Medications and Allergies Allergies Allergy/AdvReac Type Severity Reaction Status Date / Time aspirin Allergy Unknown Verified 01/02/19 14:41 pork derived (porcine) Allergy Rash Verified 01/02/19 14:41 venom-honey bee Allergy Anaphylaxis Verified 01/02/19 14:41 [bee venom (honey bee)] Pork/Porcine Containing AdvReac Severe Nausea,VOMI Verified 01/02/19 14:41 Products TING Home Medications Medication Instructions Recorded Confirmed Last Taken Type Acetaminophen [Acetaminophen TAB] 650 mg PO Q4H PRN tablet 05/05/18 01/02/19 01/01/19 Rx FLUoxetine HCL [Fluoxetine HCl] 40 mg PO QDAY #30 capsule 09/05/18 01/02/19 01/01/19 Rx levoFLOXacin [Levaquin TAB] 500 mg PO QDAY #7 tablet 12/01/18 01/02/19 01/01/19 Rx metroNIDAZOLE [Flagyl TAB] 500 mg PO Q8HR #21 tablet 12/01/18 01/02/19 01/01/19 Rx Apixaban [Eliquis] 2.5 mg PO Q12HR #60 tablet 12/29/18 01/02/19 01/01/19 Rx AtorvaSTATin [Lipitor] 40 mg PO QHS #30 tablet 12/29/18 01/02/19 01/01/19 Rx Epoetin Prashant 10,000 Unit [Procrit] 10,000 unit SUB-Q KATERYNA PRN #30 vial 12/29/18 01/02/19 12/19/18 Rx Famotidine [Pepcid] 10 mg PO BID #15 tablet 12/29/18 01/02/19 01/01/19 Rx Metoprolol Xl [Metoprolol 100 mg PO QDAY #30 tablet 12/29/18 01/02/19 01/01/19 Rx SUCCINATE ER TAB] amLODIPine [Norvasc] 10 mg PO DAILY #30 tablet 12/29/18 01/02/19 01/01/19 Rx cloNIDine 0.3 mg PO ONCE #30 12/29/18 01/02/19 01/01/19 Rx hydrALAZINE [Apresoline TAB] 50 mg PO BID #60 tablet 12/29/18 01/02/19 01/01/19 Rx traMADol [Ultram 50 MG tab] 50 mg PO Q4HR PRN #8 tablet 12/29/18 01/02/19 01/01/19 Rx diphenhydrAMINE [Benadryl CAP] 50 mg PO Q8HR PRN 01/02/19 01/02/19 01/01/19 History Active Meds: Active Medications Acetaminophen (Tylenol) 650 mg PO Q4H PRN PRN Reason: Pain MILD(1-3)/Fever >100.5/DOUGLAS Amlodipine Besylate (Norvasc) 10 mg PO DAILY BEAN Last Admin: 01/03/19 09:51 Dose: 10 mg Documented by: Atorvastatin Calcium (Lipitor) 40 mg PO QHS [facility] Dextrose (D50w (25gm) Syringe) 50 ml IV PRN PRN PRN Reason: Hypoglycemia Epoetin Prashant (Procrit) 10,000 unit IV KATERYNA PRN PRN Reason: hemodialysis Famotidine (Pepcid) 10 mg PO BID [facility] Last Admin: 01/03/19 09:51 Dose: 10 mg Documented by: Fluoxetine HCl (Prozac) 40 mg PO QDAY [facility] Last Admin: 01/03/19 10:23 Dose: 40 mg Documented by: Hydralazine HCl (Apresoline) 50 mg PO BID [facility] Last Admin: 01/03/19 10:16 Dose: 50 mg Documented by: Hydralazine HCl (Apresoline) 10 mg IV Q4H PRN PRN Reason: Blood Pressure Last Admin: 01/03/19 09:54 Dose: 10 mg Documented by: Sodium Chloride (Nacl 0.9%) 100 mls @ 999 mls/hr IV KATERYNA PRN PRN Reason: Hypotension Insulin Human Regular (Humulin R) 0 units SUB-Q ACHS [facility]; Protocol Metoprolol Succinate (Toprol Xl) 100 mg PO QDAY [facility] Last Admin: 01/03/19 09:51 Dose: 100 mg Documented by: Morphine Sulfate (Morphine) 2 mg IV Q4H PRN PRN Reason: Pain, Moderate (4-6) Stop: 01/03/19 23:59 Last Admin: 01/03/19 07:57 Dose: 2 mg Documented by: Ondansetron HCl (Zofran) 4 mg IV Q8H PRN PRN Reason: Nausea And Vomiting Sodium Chloride (Sodium Chloride Flush Syringe 10 Ml) 10 ml IV BID [facility] Last Admin: 01/03/19 10:18 Dose: 10 ml Documented by: Sodium Chloride (Sodium Chloride Flush Syringe 10 Ml) 10 ml IV PRN PRN PRN Reason: LINE FLUSH Review of Systems - Constitutional no fever, no chills - Cardiovascular no chest pain, no shortness of breath - Muskuloskeletal prior amputations right: other (forearm pain) - Integumentary other (large swelling on the right forearm) Exam Vital Signs Temp Pulse Resp BP Pulse Ox 98.4 F 80 16 158/107 100 01/02/19 14:36 01/02/19 14:36 01/02/19 14:36 01/02/19 14:36 01/02/19 14:36 - General physical appearance Positive: no distress, no pain, cathetic, other (pleasant) - Respiratory Positive: normal expansion, normal respiratory effort, clear to auscultation - Cardiovascular Rhythm: irregularly irregular - Extremities Extremity abnormal: other (large, tender mass on volar aspect of right forearm. No thrill. No erythema. About 5cm in longest dimension. Tenting the skin. Adjacent fistula has no thrill. ) - Neurologic Neurologic: alert and oriented to time, place and person - Psychiatric Psychiatric: appropriate mood/affect, intact judgment & insight, cooperative Results - Labs 01/03/19 04:33 01/03/19 04:33 Abnormal lab results 01/02/19 01/02/19 01/02/19 Range/Units 15:55 15:55 15:55 WBC 2.8 L (4.5-11.0) K/mm3 RBC 3.56 L (3.65-5.03) M/mm3 Hgb 11.4 L (11.8-15.2) gm/dl Hct (35.5-45.6) % MCV 101 H (84-94) fl MCH (28-32) pg RDW 19.0 H (13.2-15.2) % Plt Count 92 L (140-440) K/mm3 [place] % (Auto) 15.2 H (0.0-7.3) % Eos % (Auto) 5.4 H (0.0-4.3) % Lymph # 0.8 L (1.2-5.4) K/mm3 Monocytes % (Manual) (0.0-7.3) % Eosinophils % (Manual) (0.0-4.3) % Seg Neutrophils # 1.3 L (1.8-7.7) K/mm3 Seg Neutrophils # Man (1.8-7.7) K/mm3 Lymphocytes # (Manual) (1.2-5.4) K/mm3 PT 17.2 H (12.2-14.9) Sec. INR 1.44 H (0.87-1.13) APTT 37.0 H (24.2-36.6) Sec. Potassium (3.6-5.0) mmol/L Carbon Dioxide (22-30) mmol/L BUN 34 H (9-20) mg/dL Creatinine 5.9 H (0.8-1.5) mg/dL Glucose 137 H (75-100) mg/dL 01/03/19 01/03/19 Range/Units 04:33 04:33 WBC 3.0 L (4.5-11.0) K/mm3 RBC 3.37 L (3.65-5.03) M/mm3 Hgb 11.2 L (11.8-15.2) gm/dl Hct 33.7 L (35.5-45.6) % MCV 100 H (84-94) fl MCH 33 H (28-32) pg RDW 18.3 H (13.2-15.2) % Plt Count 83 L (140-440) K/mm3 [place] % (Auto) (0.0-7.3) % Eos % (Auto) (0.0-4.3) % Lymph # (1.2-5.4) K/mm3 Monocytes % (Manual) 13.0 H (0.0-7.3) % Eosinophils % (Manual) 8.0 H (0.0-4.3) % Seg Neutrophils # (1.8-7.7) K/mm3 Seg Neutrophils # Man 1.5 L (1.8-7.7) K/mm3 Lymphocytes # (Manual) 0.8 L (1.2-5.4) K/mm3 PT (12.2-14.9) Sec. INR (0.87-1.13) APTT (24.2-36.6) Sec. Potassium 5.4 H (3.6-5.0) mmol/L Carbon Dioxide 21 L (22-30) mmol/L BUN 40 H (9-20) mg/dL Creatinine 6.3 H (0.8-1.5) mg/dL Glucose (75-100) mg/dL Diabetes panel 01/02/19 01/03/19 Range/Units 15:55 04:33 Sodium 141 139 (137-145) mmol/L Potassium 4.5 5.4 H (3.6-5.0) mmol/L Chloride 102.4 102.3 (98-107) mmol/L Carbon Dioxide 27 21 L (22-30) mmol/L BUN 34 H 40 H (9-20) mg/dL Creatinine 5.9 H 6.3 H (0.8-1.5) mg/dL Glucose 137 H 93 (75-100) mg/dL Calcium 9.3 8.7 (8.4-10.2) mg/dL Calcium panel 01/02/19 01/03/19 Range/Units 15:55 04:33 Calcium 9.3 8.7 (8.4-10.2) mg/dL Pituitary panel 01/02/19 01/03/19 Range/Units 15:55 04:33 Sodium 141 139 (137-145) mmol/L Potassium 4.5 5.4 H (3.6-5.0) mmol/L Chloride 102.4 102.3 (98-107) mmol/L Carbon Dioxide 27 21 L (22-30) mmol/L BUN 34 H 40 H (9-20) mg/dL Creatinine 5.9 H 6.3 H (0.8-1.5) mg/dL Glucose 137 H 93 (75-100) mg/dL Calcium 9.3 8.7 (8.4-10.2) mg/dL Adrenal panel 01/02/19 01/03/19 Range/Units 15:55 04:33 Sodium 141 139 (137-145) mmol/L Potassium 4.5 5.4 H (3.6-5.0) mmol/L Chloride 102.4 102.3 (98-107) mmol/L Carbon Dioxide 27 21 L (22-30) mmol/L BUN 34 H 40 H (9-20) mg/dL Creatinine 5.9 H 6.3 H (0.8-1.5) mg/dL Glucose 137 H 93 (75-100) mg/dL Calcium 9.3 8.7 (8.4-10.2) mg/dL - Imaging Additional studies: Duplex studies - images and report reviewed Assessment and Plan - Patient Problems (1) Swelling of right upper extremity Current Visit: Yes Status: Acute Plan to address problem: Pt stable. Due to the severity of his pain, I think he would benefit from incision and drainage of the right forearm mass (probable hematoma). Procedure, risks, benefits were discussed. All questions were answered. Consent was obtained. We will plan on arranging surgery for tomorrow. Please call with questions. Time=30min
--- NOTE | 2019-01-03 12:31 | XRay Report ---
CHEST 1 VIEW INDICATION: CHF, Hx of left pleural effusion. COMPARISON: 12/26/2018 FINDINGS: Support devices: Right IJ venous catheter terminates in the superior right atrium. Heart: Mild cardiomegaly Lungs/Pleura: Mild pulmonary venous congestion and small left pleural effusion are identified. Atelec tatic changes are suspected in the left lower lobe. Otherwise, the lungs are clear. No pneumothorax. Additional findings: None. IMPRESSION: Mild CHF. Signer Name: Piero Lang Jr, MD Signed: 01/03/2019 12:26 PM Workstation Name: [id number]
--- NOTE | 2019-01-03 15:08 | Progress Note ---
Assessment and Plan Assessment and plan: Hematoma in the right forearm - Vascular surgery consult appreciated - Gen. surgery consulted and will do surgery to remove hematoma Chronic systolic CHF - Continue his euvolemic - Continue all medications Paroxysmal A. fib - Continue Toprol for rate control, held eliquis for surgery Hypertension -Continue her medications DVT prophylaxis - SCDs Disposition - continue inpatient care History Interval history: Patient was seen and evaluated this morning, patient is complaining of pain in the right forearm. Hospitalist Physical - Physical exam Narrative exam: Not in cardiopulmonary distress. The patient appeared well nourished and normally developed. Vital signs as documented. Head exam is unremarkable. No scleral icterus . Neck is without jugular venous distension, thyromegaly, or carotid bruits. Lungs are clear to auscultation. Cardiac exam reveals regular rate and Rhythm. First and second heart sounds normal. No murmurs, rubs or gallops. Abdominal exam reveals normal bowel sounds, no masses, no organomegaly and no aortic enlargement. Extremities are swelling in the right forearm, complicated left arm below the elbow. IT INFRASTRUCTURE SPECIALIST: Alert and oriented 3. No focal weakness. - Constitutional Vitals: Temp Pulse Resp BP Pulse Ox 96.8 F L 61 18 121/66 99 01/03/19 13:45 01/03/19 14:30 01/03/19 13:45 01/03/19 14:30 01/03/19 13:38 General appearance: Present: no acute distress Results - Labs CBC & Chem 7: 01/03/19 04:33 01/03/19 04:33 Labs: Laboratory Last Values WBC 3.0 K/mm3 (4.5-11.0) L 01/03/19 04:33 RBC 3.37 M/mm3 (3.65-5.03) L 01/03/19 04:33 Hgb 11.2 gm/dl (11.8-15.2) L 01/03/19 04:33 Hct 33.7 % (35.5-45.6) L 01/03/19 04:33 MCV 100 fl (84-94) H 01/03/19 04:33 MCH 33 pg (28-32) H 01/03/19 04:33 MCHC 33 % (32-34) 01/03/19 04:33 RDW 18.3 % (13.2-15.2) H 01/03/19 04:33 Plt Count 83 K/mm3 (140-440) L 01/03/19 04:33 Lymph % (Auto) 30.5 % (13.4-35.0) 01/02/19 15:55 [place] % (Auto) Park Keeper 01/03/19 04:33 Eos % (Auto) 5.4 % (0.0-4.3) H 01/02/19 15:55 Baso % (Auto) 1.1 % (0.0-1.8) 01/02/19 15:55 Lymph # 0.8 K/mm3 (1.2-5.4) L 01/02/19 15:55 [place] # 0.4 K/mm3 (0.0-0.8) 01/02/19 15:55 Eos # 0.1 K/mm3 (0.0-0.4) 01/02/19 15:55 Baso # 0.0 K/mm3 (0.0-0.1) 01/02/19 15:55 Add Manual Diff Complete 01/03/19 04:33 Total Counted 100 01/03/19 04:33 Seg Neutrophils % 47.8 % (40.0-70.0) 01/02/19 15:55 Seg Neuts % (Manual) 50.0 % (40.0-70.0) 01/03/19 04:33 0 % 01/03/19 04:33 27.0 % (13.4-35.0) 01/03/19 04:33 Reactive Lymphs % (Man) 1.0 % 01/03/19 04:33 13.0 % (0.0-7.3) H 01/03/19 04:33 8.0 % (0.0-4.3) H 01/03/19 04:33 1.0 % (0.0-1.8) 01/03/19 04:33 0 % 01/03/19 04:33 0 % 01/03/19 04:33 0 % 01/03/19 04:33 0 % 01/03/19 04:33 Nucleated RBC % Not Reportable 01/03/19 04:33 Seg Neutrophils # 1.3 K/mm3 (1.8-7.7) L 01/02/19 15:55 Seg Neutrophils # Man 1.5 K/mm3 (1.8-7.7) L 01/03/19 04:33 Band Neutrophils # 0.0 K/mm3 01/03/19 04:33 0.8 K/mm3 (1.2-5.4) L 01/03/19 04:33 Abs React Lymphs (Man) 0.0 K/mm3 01/03/19 04:33 0.4 K/mm3 (0.0-0.8) 01/03/19 04:33 0.2 K/mm3 (0.0-0.4) 01/03/19 04:33 0.0 K/mm3 (0.0-0.1) 01/03/19 04:33 0.0 K/mm3 01/03/19 04:33 0.0 K/mm3 01/03/19 04:33 0.0 K/mm3 01/03/19 04:33 Blast Cells # 0.0 K/mm3 01/03/19 04:33 WBC Morphology Not Reportable 01/03/19 04:33 Hypersegmented Neuts Not Reportable 01/03/19 04:33 Hyposegmented Neuts Not Reportable 01/03/19 04:33 Hypogranular Neuts Not Reportable 01/03/19 04:33 Not Reportable 01/03/19 04:33 Not Reportable 01/03/19 04:33 Not Reportable 01/03/19 04:33 Not Reportable 01/03/19 04:33 Not Reportable 01/03/19 04:33 Not Reportable 01/03/19 04:33 Consistent w auto 01/03/19 04:33 Not Reportable 01/03/19 04:33 Plt Clumps, EDTA Not Reportable 01/03/19 04:33 Not Reportable 01/03/19 04:33 Not Reportable 01/03/19 04:33 Not Reportable 01/03/19 04:33 Plt Morphology Comment Not Reportable 01/03/19 04:33 RBC Morphology Not Reportable 01/03/19 04:33 Dimorphic RBCs Not Reportable 01/03/19 04:33 Not Reportable 01/03/19 04:33 Not Reportable 01/03/19 04:33 Not Reportable 01/03/19 04:33 1+ 01/03/19 04:33 Not Reportable 01/03/19 04:33 Not Reportable 01/03/19 04:33 Not Reportable 01/03/19 04:33 Not Reportable 01/03/19 04:33 Not Reportable 01/03/19 04:33 Not Reportable 01/03/19 04:33 Not Reportable 01/03/19 04:33 Not Reportable 01/03/19 04:33 Not Reportable 01/03/19 04:33 Not Reportable 01/03/19 04:33 Not Reportable 01/03/19 04:33 Not Reportable 01/03/19 04:33 Not Reportable 01/03/19 04:33 Not Reportable 01/03/19 04:33 Not Reportable 01/03/19 04:33 Acanthocytes (Spur) Not Reportable 01/03/19 04:33 Rouleaux Not Reportable 01/03/19 04:33 Not Reportable 01/03/19 04:33 Not Reportable 01/03/19 04:33 Not Reportable 01/03/19 04:33 Not Reportable 01/03/19 04:33 Hem Pathologist Commnt No 01/03/19 04:33 PT 17.2 Sec. (12.2-14.9) H 01/02/19 15:55 INR 1.44 (0.87-1.13) H 01/02/19 15:55 APTT 37.0 Sec. (24.2-36.6) H 01/02/19 15:55 Sodium 139 mmol/L (137-145) 01/03/19 04:33 Potassium 5.4 mmol/L (3.6-5.0) H 01/03/19 04:33 Chloride 102.3 mmol/L (98-107) 01/03/19 04:33 Carbon Dioxide 21 mmol/L (22-30) L 01/03/19 04:33 21 mmol/L 01/03/19 04:33 BUN 40 mg/dL (9-20) H 01/03/19 04:33 6.3 mg/dL (0.8-1.5) H 01/03/19 04:33 Estimated GFR 11 ml/min 01/03/19 04:33 6 % 01/03/19 04:33 Glucose 93 mg/dL (75-100) 01/03/19 04:33 POC Glucose 85 (70-105) 01/03/19 11:35 Calcium 8.7 mg/dL (8.4-10.2) 01/03/19 04:33 Active Medications - Current Medications Current Medications: Generic Name Dose Route Start Last Admin Trade Name Freq PRN Reason Stop Dose Admin Acetaminophen 650 mg 01/02/19 19:43 Tylenol PO Q4H PRN Pain MILD(1-3)/Fever >100.5/DOUGLAS Amlodipine Besylate 10 mg 01/03/19 10:00 01/03/19 09:51 Norvasc PO 10 mg DAILY BEAN Administration Atorvastatin Calcium 40 mg 01/02/19 22:00 Lipitor PO QHS [facility] Dextrose 50 ml 01/02/19 19:48 D50w (25gm) Syringe IV PRN PRN Hypoglycemia Epoetin Prashant 10,000 unit 01/03/19 11:00 Procrit IV KATERYNA PRN hemodialysis Famotidine 10 mg 01/02/19 22:00 01/03/19 09:51 Pepcid PO 10 mg BID BEAN Administration Fluoxetine HCl 40 mg 01/03/19 10:00 01/03/19 10:23 Prozac PO 40 mg QDAY BEAN Administration Hydralazine HCl 50 mg 01/03/19 10:00 01/03/19 10:16 Apresoline PO 50 mg BID BENA Administration Hydralazine HCl 10 mg 01/02/19 21:20 01/03/19 09:54 Apresoline IV 10 mg Q4H PRN Administration Blood Pressure Sodium Chloride 100 mls @ 999 mls/hr 01/03/19 11:00 Nacl 0.9% IV KATERYNA PRN Hypotension Insulin Human Regular 0 units 01/03/19 11:30 01/03/19 11:46 Humulin R SUB-Q Not Given ACHS [facility] Protocol Metoprolol Succinate 100 mg 01/03/19 10:00 01/03/19 09:51 Toprol Xl PO 100 mg QDAY BEAN Administration Morphine Sulfate 2 mg 01/02/19 19:43 01/03/19 07:57 Morphine IV 01/03/19 23:59 2 mg Q4H PRN Administration Pain, Moderate (4-6) Ondansetron HCl 4 mg 01/02/19 19:43 Zofran IV Q8H PRN Nausea And Vomiting Sodium Chloride 10 ml 01/02/19 22:00 01/03/19 10:18 Sodium Chloride Flush Syringe 10 Ml IV 10 ml BID BEAN Administration Sodium Chloride 10 ml 01/02/19 19:43 Sodium Chloride Flush Syringe 10 Ml IV PRN PRN LINE FLUSH
[2019-01-03] MEDS ORDERED: NACL 0.9 (PRIMING MACHINE ONLY DIALYSIS) MC ONE (17:11)
[2019-01-04] MEDS: HumuLIN R SUB-Q SCH ×4 (00:59→16:29)
[2019-01-04 05:27] LABS: Hematocrit 36.5 % (35.5-45.6); Hemoglobin 11.8 gm/dl (11.8-15.2); Mean Corpuscular HGB Conc 32 % (32-34); Mean Corpuscular Volume 101 fl (84-94); Red Blood Count 3.62 M/mm3 (3.65-5.03); Red Cell Distribution Width 18.9 % (13.2-15.2)
[2019-01-04 05:30] LABS: Platelet Count 97 K/mm3 (140-440)
[2019-01-04 05:44] LABS: Calcium 9.1 mg/dL (8.4-10.2)
[2019-01-04] MEDS ORDERED: ceFAZolin 2 GM in NACL 0.9% 100 ML IV ONE (08:07)
[2019-01-04 08:26] LABS: Anisocytosis 1+; Basophils % (Manual) 0 % (0.0-1.8); Total Cells Counted 100
[2019-01-04 08:27] LABS: Ovalocytes Few; Platelet Estimate Consistent w Auto
[2019-01-04] MEDS ORDERED: ANCEF/STERILE WATER 2 GM/20 ML 2 GM/20 ML SYRINGE IV SCH (09:00)
[2019-01-04] MEDS: NORVASC PO SCH (09:09)
[2019-01-04] MEDS: APRESOLINE PO SCH ×2 (09:09→22:39)
[2019-01-04] MEDS: PEPCID PO SCH ×2 (09:10→22:38)
[2019-01-04] MEDS: PROzac PO SCH (09:10)
[2019-01-04] MEDS: SODIUM CHLORIDE FLUSH SYRINGE 10 ML IV SCH ×2 (09:10→20:59)
[2019-01-04] MEDS: TOPROL XL PO SCH (09:10)
--- NOTE | 2019-01-04 09:33 | Progress Note ---
Assessment and Plan - Patient Problems (1) Swelling of right upper extremity Current Visit: Yes Status: Acute Plan to address problem: Probably a hematoma. Patient was on Plavix which has been stopped. For incision and drainage today by General surgeon (2) Chronic HFrEF (heart failure with reduced ejection fraction) Current Visit: Yes Status: Acute Plan to address problem: Patient is stable regarding volume status. (3) Anemia in CKD (chronic kidney disease) Current Visit: No Status: Acute Qualifiers: Chronic kidney disease stage: on chronic dialysis Qualified Code(s): N18.6 - End stage renal disease; D63.1 - Anemia in chronic kidney disease; Z99.2 - Dependence on renal dialysis Plan to address problem: Erythropoetin on dialysis if hemoglobin is less than 11 g/dL. Follow-up hemoglobin (4) ESRD needing dialysis Current Visit: No Status: Chronic Plan to address problem: Hemodialysis on a Monday, and Monday schedule (5) Hypertensive chronic kidney disease with stage 5 chronic kidney disease or end stage renal disease Current Visit: No Status: Chronic Plan to address problem: Follow-up blood pressure on current medications. (6) Type 2 diabetes mellitus with diabetic chronic kidney disease Current Visit: No Status: Chronic Qualifiers: Chronic kidney disease stage: on chronic dialysis Plan to address problem: Blood sugar management by primary attending Subjective Date of service: 01/04/19 Principal diagnosis: End stage renal disease, right forearm hematoma with pain Interval history: Patient seen lying in bed. Still complaining of pain in the right forearm. He is going to surgery later today. Objective - Exam Narrative Exam: Elderly -[place]ian male lying in bed in no acute distress HEENT: NCAT, pink oral mucous membrane Neck: Supple, no venous distention CVS: S1S2 RRR with no murmur, rub or gallop Chest: Clear to auscultation Abdomen: Protuberant, soft, nontender, no organomegaly, bowel sounds are present Extremities: No edema, left forearm amputation healed, swelling which is soft to firm right upper extremity around clotted AV graft Neuro: Awake, alert no focal deficits - Vital Signs Vital signs: Vital Signs - 12hr 01/03/19 01/03/19 01/04/19 21:34 22:00 02:41 Temperature 98.6 F Pulse Rate 80 75 Respiratory 18 Rate Blood Pressure 175/79 158/96 O2 Sat by Pulse 99 99 Oximetry 01/04/19 01/04/19 07:36 09:09 Temperature 97.9 F Pulse Rate 66 Respiratory 20 Rate Blood Pressure 137/75 154/89 O2 Sat by Pulse Oximetry - Lab 01/04/19 04:35 01/04/19 04:35 Most recent lab results Calcium 9.1 mg/dL (8.4-10.2) 01/04/19 04:35 Medications & Allergies - Medications Allergies/Adverse Reactions: Allergies aspirin Allergy (Verified 01/02/19 14:41) Unknown stomach cramps pork derived (porcine) Allergy (Verified 01/02/19 14:41) Rash venom-honey bee [bee venom (honey bee)] Allergy (Verified 01/02/19 14:41) Anaphylaxis Pork/Porcine Containing Products Adverse Reaction (Severe, Verified 01/02/19 14:41) Nausea,VOMITING Home Medications: Home Medications Medication Instructions Recorded Confirmed Last Taken Type Acetaminophen [Acetaminophen TAB] 650 mg PO Q4H PRN tablet 05/05/18 01/02/19 01/01/19 Rx FLUoxetine HCL [Fluoxetine HCl] 40 mg PO QDAY #30 capsule 09/05/18 01/02/19 01/01/19 Rx levoFLOXacin [Levaquin TAB] 500 mg PO QDAY #7 tablet 12/01/18 01/02/19 01/01/19 Rx metroNIDAZOLE [Flagyl TAB] 500 mg PO Q8HR #21 tablet 12/01/18 01/02/19 01/01/19 Rx Apixaban [Eliquis] 2.5 mg PO Q12HR #60 tablet 12/29/18 01/02/19 01/01/19 Rx AtorvaSTATin [Lipitor] 40 mg PO QHS #30 tablet 12/29/18 01/02/19 01/01/19 Rx Epoetin Prashant 10,000 Unit [Procrit] 10,000 unit SUB-Q KATERYNA PRN #30 vial 12/29/18 01/02/19 12/19/18 Rx Famotidine [Pepcid] 10 mg PO BID #15 tablet 12/29/18 01/02/19 01/01/19 Rx Metoprolol Xl [Metoprolol 100 mg PO QDAY #30 tablet 12/29/18 01/02/19 01/01/19 Rx SUCCINATE ER TAB] amLODIPine [Norvasc] 10 mg PO DAILY #30 tablet 12/29/18 01/02/19 01/01/19 Rx cloNIDine 0.3 mg PO ONCE #30 12/29/18 01/02/19 01/01/19 Rx hydrALAZINE [Apresoline TAB] 50 mg PO BID #60 tablet 12/29/18 01/02/19 01/01/19 Rx traMADol [Ultram 50 MG tab] 50 mg PO Q4HR PRN #8 tablet 12/29/18 01/02/19 01/01/19 Rx diphenhydrAMINE [Benadryl CAP] 50 mg PO Q8HR PRN 01/02/19 01/02/19 01/01/19 History Active Medications: Generic Name Dose Route Start Last Admin Trade Name Freq PRN Reason Stop Dose Admin Acetaminophen 650 mg 01/02/19 19:43 Tylenol PO Q4H PRN Pain MILD(1-3)/Fever >100.5/DOUGLAS Amlodipine Besylate 10 mg 01/03/19 10:00 01/04/19 09:09 Norvasc PO 10 mg DAILY BEAN Administration Atorvastatin Calcium 40 mg 01/02/19 22:00 01/03/19 21:34 Lipitor PO 40 mg QHS BEAN Administration Dextrose 50 ml 01/02/19 19:48 D50w (25gm) Syringe IV PRN PRN Hypoglycemia Epoetin Prashant 10,000 unit 01/03/19 11:00 01/03/19 17:00 Procrit IV 10,000 unit KATERYNA PRN Administration hemodialysis Famotidine 10 mg 01/02/19 22:00 01/04/19 09:10 Pepcid PO 10 mg BID BEAN Administration Fluoxetine HCl 40 mg 01/03/19 10:00 01/04/19 09:10 Prozac PO 40 mg QDAY BEAN Administration Hydralazine HCl 50 mg 01/03/19 10:00 01/04/19 09:09 Apresoline PO 50 mg BID BEAN Administration Hydralazine HCl 10 mg 01/02/19 21:20 01/03/19 09:54 Apresoline IV 10 mg Q4H PRN Administration Blood Pressure Sodium Chloride 100 mls @ 999 mls/hr 01/03/19 11:00 Nacl 0.9% IV KATERYNA PRN Hypotension Cefazolin Sodium 2 gm in 20 mls @ 120 mls/hr 01/04/19 09:00 Ancef/Sterile Water 2 Gm/20 Ml IV 01/04/19 23:59 PREOP [facility] Insulin Human Regular 0 units 01/03/19 11:30 01/04/19 07:38 Humulin R SUB-Q Not Given ACHS [facility] Protocol Metoprolol Succinate 100 mg 01/03/19 10:00 01/04/19 09:10 Toprol Xl PO 100 mg QDAY BEAN Administration Ondansetron HCl 4 mg 01/02/19 19:43 Zofran IV Q8H PRN Nausea And Vomiting Sodium Chloride 10 ml 01/02/19 22:00 01/04/19 09:10 Sodium Chloride Flush Syringe 10 Ml IV 10 ml BID BEAN Administration Sodium Chloride 10 ml 01/02/19 19:43 Sodium Chloride Flush Syringe 10 Ml IV PRN PRN LINE FLUSH
[2019-01-04] MEDS: MORPHINE IV PRN ×3 (10:19→20:58)
--- NOTE | 2019-01-04 10:30 | Progress Note ---
Assessment and Plan Hematoma associated with right AV fistula Chronic systolic heart failure DM type II PVD s/p left arm amputation Hypertension ESRD on hemodialysis Thrombocytopenia, chronic Hx of Recurrent Left pleural effusion Hx of Nonischemic CMP EF 10-15% by echo 08/2018 Non-obstructive CAD [facility] 01/2017 revealed non-obstructive, single vessel disease of the proximal LAD recommended for medical therapy. normal perfusion MPI at [facility] 10/03/18. Permanent Atrial fibrillation rate controlled with metoprolol on low dose eliquis as an outpatient Recommendations: Dialysis for fluid management. Medical therapy for nonischemic cardiomyopathy, chronic systolic heart failure and permanent atrial fibrillation. Okay for procedure from a cardiac standpoint. The oral anticoagulation is on hold pending surgery. Subjective Date of service: 01/04/19 Principal diagnosis: End stage renal disease, right forearm hematoma with pain Interval history: Patient is resting in bed comfortably. He denies chest pain and shortness of breath. He is planned for eventual surgery to evacuate the hematoma. Objective Vital Signs Temp Pulse Resp BP Pulse Ox 01/04/19 09:09 66 154/89 01/04/19 07:36 97.9 F 20 137/75 01/04/19 02:41 98.6 F 75 18 158/96 99 01/03/19 22:00 99 01/03/19 21:34 80 175/79 01/03/19 19:37 97.9 F 80 16 175/79 99 01/03/19 17:35 98.2 F 75 18 126/69 01/03/19 17:25 56 L 110/80 01/03/19 17:15 55 L 108/82 01/03/19 17:00 60 104/71 01/03/19 16:45 68 110/63 01/03/19 16:30 66 110/55 01/03/19 16:15 70 120/55 01/03/19 16:00 51 L 104/68 01/03/19 15:45 72 118/60 01/03/19 15:30 70 105/74 01/03/19 15:15 72 109/66 01/03/19 15:00 73 111/75 01/03/19 14:58 18 01/03/19 14:45 76 112/60 01/03/19 14:30 61 121/66 01/03/19 14:15 87 109/65 01/03/19 14:00 70 134/58 01/03/19 13:53 87 113/75 01/03/19 13:45 96.8 F L 75 18 130/83 01/03/19 13:38 96.8 F L 66 18 142/112 99 - Physical Examination General: No Apparent Distress HEENT: Positive: PERRL Neck: Positive: trachea midline Cardiac: Positive: irregularly irregular Lungs: Positive: Decreased Breath Sounds Neuro: Positive: Grossly Intact Extremities: Absent: edema - Labs and Meds CBC 01/04/19 Range/Units 04:35 WBC 3.5 L (4.5-11.0) K/mm3 RBC 3.62 L (3.65-5.03) M/mm3 Hgb 11.8 (11.8-15.2) gm/dl Hct 36.5 (35.5-45.6) % Plt Count 97 L (140-440) K/mm3 Comprehensive Metabolic Panel 01/04/19 Range/Units 04:35 Sodium 139 (137-145) mmol/L Potassium 4.3 D (3.6-5.0) mmol/L Chloride 98.9 (98-107) mmol/L Carbon Dioxide 26 (22-30) mmol/L BUN 23 H (9-20) mg/dL Creatinine 4.4 H (0.8-1.5) mg/dL Glucose 96 (75-100) mg/dL Calcium 9.1 (8.4-10.2) mg/dL
[2019-01-04] MEDS ORDERED: NACL 0.9% 1000 ML 1,000 ML ONE (11:51)
[2019-01-04] MEDS ORDERED: MARCAINE-EPI 0.25%-1:200,000 INFILTRATI ONE (12:19)
--- NOTE | 2019-01-04 12:26 | Anesthesia Consultation ---
Anesthesia Consult and Med Hx Date of service: 01/04/19 - Airway Anesthetic Teeth Evaluation: Poor ROM Head & Neck: Adequate Mental/Hyoid Distance: Adequate Mallampati Class: Class III Intubation Access Assessment: Possibly Difficult - Pulmonary Exam CTA: Yes - Cardiac Exam Cardiac Exam: RRR - Pre-Operative Health Status ASA Pre-Surgery Classification: ASA4 Proposed Anesthetic Plan: MAC - Pulmonary Hx Smoking: Yes (Quit 2012) Hx Respiratory Symptoms: Yes (chronic pleural effusion; stable orthopnea) COPD: Yes (no recent exacerbations) Home Oxygen Therapy: Yes (2L ) - Cardiovascular System Hx Hypertension: Yes Hx Heart Attack/AMI: No (EF 10-15%) Hx Cardia Arrhythmia: Yes (pAfib; last eliquis 4days ago) Hx Pacemaker: No Hx Internal Defibrillator: No Hx Peripheral Vascular Disease: Yes - Central Nervous System Hx Seizures: No CVA: Yes (1999; mild left sided weakness) Hx Back Pain: Yes Hx Psychiatric Problems: Yes (PTSD) - Gastrointestinal Hx Gastroesophageal Reflux Disease: No - Endocrine Hx End Stage Renal Disease: Yes (last HD 01/03/19) Hx Liver Disease: Yes (HCV) Hx Non-Insulin Dependent Diabetes: Yes Hx Thyroid Disease: No - Hematic Hx Anemia: Yes - Other Systems Hx Obesity: No - Additional Comments Anesthesia Medical History Comments: No hx anesthetic complications
--- NOTE | 2019-01-04 12:26 | Anesthesia Day of Surgery ---
Anesthesia Day of Surgery - Day of Surgery Patient Examined: Yes Patient H&P Reviewed: Yes Patient is NPO: Yes Beta Blockers: Yes
[2019-01-04] MEDS ORDERED: HYDROGEN PEROXIDE ONE (12:28)
[2019-01-04] MEDS ORDERED: MARCAINE 0.5% INFILTRATI ONE (12:28)
[2019-01-04] MEDS ORDERED: MARCAINE-EPI 0.5%-1:200,000 INFILTRATI ONE ×2 (12:29→14:45)
[2019-01-04] MEDS ORDERED: NACL 0.9% 1000 ML 1,000 ML IV SCH (12:42)
[2019-01-04] MEDS ORDERED: VERSED ONE (14:17)
[2019-01-04] MEDS ORDERED: SUBLIMAZE ONE (14:17)
[2019-01-04] MEDS ORDERED: KETALAR ONE (14:30)
[2019-01-04] MEDS ORDERED: NACL 0.9% IR ONE (14:45)
--- NOTE | 2019-01-04 14:59 | Progress Note ---
Assessment and Plan Assessment and plan: Hematoma in the right forearm - Vascular surgery consult appreciated - Gen. surgery consulted and will do surgery to remove hematoma Chronic systolic CHF - Continue his euvolemic - Continue all medications Paroxysmal A. fib - Continue Toprol for rate control, held eliquis for surgery Hypertension -Continue her medications DVT prophylaxis - SCDs Disposition - continue inpatient care History Interval history: Patient was seen and evaluated this morning, patient is complaining of pain in the right forearm. Hospitalist Physical - Physical exam Narrative exam: Not in cardiopulmonary distress. The patient appeared well nourished and normally developed. Vital signs as documented. Head exam is unremarkable. No scleral icterus . Neck is without jugular venous distension, thyromegaly, or carotid bruits. Lungs are clear to auscultation. Cardiac exam reveals regular rate and Rhythm. First and second heart sounds normal. No murmurs, rubs or gallops. Abdominal exam reveals normal bowel sounds, no masses, no organomegaly and no aortic enlargement. Extremities are swelling in the right forearm, complicated left arm below the elbow. 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 No focal weakness. - Constitutional Vitals: Temp Pulse Resp BP Pulse Ox 97.3 F L 71 16 140/78 98 01/04/19 11:30 01/04/19 11:30 01/04/19 11:30 01/04/19 11:30 01/04/19 11:30 General appearance: Present: no acute distress Results - Labs CBC & Chem 7: 01/04/19 04:35 01/04/19 04:35 Labs: Laboratory Last Values WBC 3.5 K/mm3 (4.5-11.0) L 01/04/19 04:35 RBC 3.62 M/mm3 (3.65-5.03) L 01/04/19 04:35 Hgb 11.8 gm/dl (11.8-15.2) 01/04/19 04:35 Hct 36.5 % (35.5-45.6) 01/04/19 04:35 MCV 101 fl (84-94) H 01/04/19 04:35 MCH 33 pg (28-32) H 01/04/19 04:35 MCHC 32 % (32-34) 01/04/19 04:35 RDW 18.9 % (13.2-15.2) H 01/04/19 04:35 Plt Count 97 K/mm3 (140-440) L 01/04/19 04:35 Lymph % (Auto) 30.5 % (13.4-35.0) 01/02/19 15:55 [place] % (Auto) Senior [employer] Developer 01/04/19 04:35 Eos % (Auto) 5.4 % (0.0-4.3) H 01/02/19 15:55 Baso % (Auto) 1.1 % (0.0-1.8) 01/02/19 15:55 Lymph # 0.8 K/mm3 (1.2-5.4) L 01/02/19 15:55 [place] # 0.4 K/mm3 (0.0-0.8) 01/02/19 15:55 Eos # 0.1 K/mm3 (0.0-0.4) 01/02/19 15:55 Baso # 0.0 K/mm3 (0.0-0.1) 01/02/19 15:55 Add Manual Diff Complete 01/04/19 04:35 Total Counted 100 01/04/19 04:35 Seg Neutrophils % 47.8 % (40.0-70.0) 01/02/19 15:55 Seg Neuts % (Manual) 55.0 % (40.0-70.0) 01/04/19 04:35 0 % 01/04/19 04:35 25.0 % (13.4-35.0) 01/04/19 04:35 Reactive Lymphs % (Man) 0 % 01/04/19 04:35 17.0 % (0.0-7.3) H 01/04/19 04:35 3.0 % (0.0-4.3) 01/04/19 04:35 0 % (0.0-1.8) 01/04/19 04:35 0 % 01/04/19 04:35 0 % 01/04/19 04:35 0 % 01/04/19 04:35 0 % 01/04/19 04:35 Nucleated RBC % Not Reportable 01/04/19 04:35 Seg Neutrophils # 1.3 K/mm3 (1.8-7.7) L 01/02/19 15:55 Seg Neutrophils # Man 1.9 K/mm3 (1.8-7.7) 01/04/19 04:35 Band Neutrophils # 0.0 K/mm3 01/04/19 04:35 0.9 K/mm3 (1.2-5.4) L 01/04/19 04:35 Abs React Lymphs (Man) 0.0 K/mm3 01/04/19 04:35 0.6 K/mm3 (0.0-0.8) 01/04/19 04:35 0.1 K/mm3 (0.0-0.4) 01/04/19 04:35 0.0 K/mm3 (0.0-0.1) 01/04/19 04:35 0.0 K/mm3 01/04/19 04:35 0.0 K/mm3 01/04/19 04:35 0.0 K/mm3 01/04/19 04:35 Blast Cells # 0.0 K/mm3 01/04/19 04:35 WBC Morphology Not Reportable 01/04/19 04:35 Hypersegmented Neuts Not Reportable 01/04/19 04:35 Hyposegmented Neuts Not Reportable 01/04/19 04:35 Hypogranular Neuts Not Reportable 01/04/19 04:35 Not Reportable 01/04/19 04:35 Not Reportable 01/04/19 04:35 Not Reportable 01/04/19 04:35 Not Reportable 01/04/19 04:35 Not Reportable 01/04/19 04:35 Not Reportable 01/04/19 04:35 Consistent w auto 01/04/19 04:35 Not Reportable 01/04/19 04:35 Plt Clumps, EDTA Not Reportable 01/04/19 04:35 Not Reportable 01/04/19 04:35 Not Reportable 01/04/19 04:35 Not Reportable 01/04/19 04:35 Plt Morphology Comment Not Reportable 01/04/19 04:35 RBC Morphology Not Reportable 01/04/19 04:35 Dimorphic RBCs Not Reportable 01/04/19 04:35 Not Reportable 01/04/19 04:35 Not Reportable 01/04/19 04:35 Not Reportable 01/04/19 04:35 1+ 01/04/19 04:35 Not Reportable 01/04/19 04:35 Not Reportable 01/04/19 04:35 Not Reportable 01/04/19 04:35 Not Reportable 01/04/19 04:35 Not Reportable 01/04/19 04:35 Not Reportable 01/04/19 04:35 Not Reportable 01/04/19 04:35 Few 01/04/19 04:35 Not Reportable 01/04/19 04:35 Not Reportable 01/04/19 04:35 Not Reportable 01/04/19 04:35 Not Reportable 01/04/19 04:35 Not Reportable 01/04/19 04:35 Not Reportable 01/04/19 04:35 Not Reportable 01/04/19 04:35 Acanthocytes (Spur) Not Reportable 01/04/19 04:35 Rouleaux Not Reportable 01/04/19 04:35 Not Reportable 01/04/19 04:35 Not Reportable 01/04/19 04:35 Not Reportable 01/04/19 04:35 Not Reportable 01/04/19 04:35 Hem Pathologist Commnt No 01/04/19 04:35 PT 17.2 Sec. (12.2-14.9) H 01/02/19 15:55 INR 1.44 (0.87-1.13) H 01/02/19 15:55 APTT 37.0 Sec. (24.2-36.6) H 01/02/19 15:55 Sodium 139 mmol/L (137-145) 01/04/19 04:35 Potassium 4.3 mmol/L (3.6-5.0) D 01/04/19 04:35 Chloride 98.9 mmol/L (98-107) 01/04/19 04:35 Carbon Dioxide 26 mmol/L (22-30) 01/04/19 04:35 18 mmol/L 01/04/19 04:35 BUN 23 mg/dL (9-20) H 01/04/19 04:35 4.4 mg/dL (0.8-1.5) H 01/04/19 04:35 Estimated GFR 16 ml/min 01/04/19 04:35 5 % 01/04/19 04:35 Glucose 96 mg/dL (75-100) 01/04/19 04:35 POC Glucose 98 (70-105) 01/04/19 14:13 Calcium 9.1 mg/dL (8.4-10.2) 01/04/19 04:35 Active Medications - Current Medications Current Medications: Generic Name Dose Route Start Last Admin Trade Name Freq PRN Reason Stop Dose Admin Acetaminophen 650 mg 01/02/19 19:43 Tylenol PO Q4H PRN Pain MILD(1-3)/Fever >100.5/DOUGLAS Amlodipine Besylate 10 mg 01/03/19 10:00 01/04/19 09:09 Norvasc PO 10 mg DAILY BEAN Administration Atorvastatin Calcium 40 mg 01/02/19 22:00 01/03/19 21:34 Lipitor PO 40 mg QHS BEAN Administration Dextrose 50 ml 01/02/19 19:48 D50w (25gm) Syringe IV PRN PRN Hypoglycemia Epoetin Prashant 10,000 unit 01/03/19 11:00 01/03/19 17:00 Procrit IV 10,000 unit KATERYNA PRN Administration hemodialysis Famotidine 10 mg 01/02/19 22:00 01/04/19 09:10 Pepcid PO 10 mg BID BEAN Administration Fluoxetine HCl 40 mg 01/03/19 10:00 01/04/19 09:10 Prozac PO 40 mg QDAY BEAN Administration Hydralazine HCl 50 mg 01/03/19 10:00 01/04/19 09:09 Apresoline PO 50 mg BID BEAN Administration Hydralazine HCl 10 mg 01/02/19 21:20 01/03/19 09:54 Apresoline IV 10 mg Q4H PRN Administration Blood Pressure Sodium Chloride 100 mls @ 999 mls/hr 01/03/19 11:00 Nacl 0.9% IV KATERYNA PRN Hypotension Cefazolin Sodium 2 gm in 20 mls @ 120 mls/hr 01/04/19 09:00 Ancef/Sterile Water 2 Gm/20 Ml IV 01/04/19 23:59 PREOP BEAN Sodium Chloride 1,000 mls @ 42 mls/hr 01/04/19 12:42 01/04/19 11:55 Nacl 0.9% 1000 Ml IV 42 mls/hr DIRECT BEAN Administration Insulin Human Regular 0 units 01/03/19 11:30 01/04/19 07:38 Humulin R SUB-Q Not Given [facility] Protocol Metoprolol Succinate 100 mg 01/03/19 10:00 01/04/19 09:10 Toprol Xl PO 100 mg QDAY BEAN Administration Morphine Sulfate 2 mg 01/04/19 10:14 01/04/19 10:19 Morphine IV 2 mg Q4H PRN Administration Pain , Severe (7-10) Ondansetron HCl 4 mg 01/02/19 19:43 Zofran IV Q8H PRN Nausea And Vomiting Sodium Chloride 10 ml 01/02/19 22:00 01/04/19 09:10 Sodium Chloride Flush Syringe 10 Ml IV 10 ml BID BEAN Administration Sodium Chloride 10 ml 01/02/19 19:43 Sodium Chloride Flush Syringe 10 Ml IV PRN PRN LINE FLUSH Nutrition/Malnutrition Assess - Dietary Evaluation Nutrition/Malnutrition Findings: Nutrition Notes Start: 01/03/19 16:13 Freq: Status: Active Protocol: Document 01/03/19 16:13 RM (Rec: 01/03/19 16:20 RM [email or web address]) Nutrition Notes Need for Assessment generated from: MST Initial or Follow up Assessment Current Diagnosis COPD,Diabetes,Hypertension, Heart Failure Other Pertinent Diagnosis ESRD o nHD (T/Th/S), Hep C, PTSD Current Diet Regular Labs/Tests Reviewed Pertinent Medications Reviewed Height 5 ft 9 in Weight 53.977 kg [place] Body Weight (kg) 72.72 BMI 17.5 Subjective/Other Information Screened for skin risk and malnutrition. Pt known to meet from previous admissions. Pt noncompliant w /diet and requests Regular diet. Dislikes Nepro ONS. 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 Noted temporal wasting. 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 No Is Patient Ambulatory and/or Out of Bed No REE-([facility]-confined to bed) 1554.252 Kcal/Kg value to use for calculation 35 Approximate Energy Requirements Using 1889 kcal/Kg Calculation Used for Recommendations Kcal/kg Additional Notes Protein Needs: 65-81g (1.2-1. 5g/kg) Fluid Needs: 1 ml/kcal Nutrition Intervention Change Diet Order: Continue current Add Supplement/Snack (indicate name/kcal Ensure Clear 1 daily (M/W/F) /protein ) Provides kCal: 240 Provides Protein (gm) 10 Goal #1 Meet at least 75% of calorie and protein needs via PO and ONS intakes Goal #2 Wt gain/maintenance Anticipated Discharge Needs: Regular diet Follow-Up By: 01/07/19 Additional Comments Follow for PO and ONS intakes
[2019-01-04] MEDS ORDERED: XYLOCAINE CARDIAC IV ONE (15:08)
[2019-01-04] MEDS ORDERED: ZOFRAN ONE (15:10)
--- NOTE | 2019-01-04 15:38 | Post Operative Note ---
Date of procedure: 01/04/19 (dictation:[id number]) Pre-op diagnosis: right forearm hematoma Post-op diagnosis: same Findings: moderate hematoma with firm mass Procedure: I&D of right forearm hematoma IVF - 200cc EBL<20cc Anesthesia: MAC Surgeon: VICKY HUERTAS Estimated blood loss: minimal Pathology: list (right forearm mass) Specimen disposition: to lab Condition: stable Disposition: PACU
[2019-01-04] MEDS: APRESOLINE IV PRN (15:50)
--- NOTE | 2019-01-04 16:14 | Operative Report ---
PREOPERATIVE DIAGNOSIS: Right forearm hematoma. POSTOPERATIVE DIAGNOSIS: Right forearm hematoma. PROCEDURE: Incision and drainage of right forearm hematoma. ATTENDING PHYSICIAN: Balbina Gonzalez MD. ANESTHESIA: Local MAC. ESTIMATED BLOOD LOSS: Less than 20 mL. FLUIDS: 200 mL. FINDINGS: Blood in various stages of maturity. There was some liquified blood, some gelatinous clot and then a solid mass. SPECIMEN: Blood clot. DRAINS: None. COMPLICATIONS: None. CONDITION AND DISPOSITION: Stable, transport to Recovery Room. INDICATIONS: This is a 71-year-old male who woke up on Monday morning with a painful mass in the right forearm, does not recall any trauma. Workup was done by the Medicine team and the patient was assessed to have a hematoma that needed drainage. General Surgery was consulted. Procedure, risks and benefits were explained to the patient. Risks included but were not limited to infection, bleeding, pain, injury to surrounding structures, possible need for further procedures in the future. The patient understood and consented. OPERATIVE NOTE: The patient was brought to the operating room and placed on the table in supine position. After adequate sedation was established, the patient was prepped and draped in the usual sterile fashion. Antibiotics had been given. SCDs were in place. Time-out was called. I made a longitudinal incision in an area that was away from his arterial end of the fistula and away from superficial veins that were seen through the skin. Dissection was carried down through the very thin subcutaneous tissue onto the clot. We dissected the tissue over the clot which appeared to be simple subcutaneous tissue and superficial tissue. No critical structures were identified. We evacuated the clot and approximately 2 cm firm mass. We sent that to pathology. Wound was thoroughly irrigated. Small little bleeders were treated with electrocautery. Once we were sure the wound was hemostatic, I injected additional local into the surrounding area in the subcutaneous tissue. I packed the wound with Surgicel as a precaution in case there was any delayed bleeding. I reapproximated subcutaneous tissue with interrupted 3-0 Vicryl sutures. Skin was closed with a running 4-0 Monocryl subcuticular stitch. Skin was cleaned and dried. Steri-Strips were placed. Dressings were placed and then the arm was wrapped with an Slim wrap. The patient tolerated the procedure well. There were no complications. All counts were correct at the end of the case. JOB# [id number] KEELY/TAMIE
--- NOTE | 2019-01-04 17:55 | Post Anesthesia Evaluation ---
- Post Anesthesia Evaluation Patient Participated: Yes Airway Patent: Yes Stable Respiratory Function: Yes Nausea/Vomiting: No Temp > 96.8F: Yes Pain Manageable: Yes Adequeate Hydration: Yes Anesthesia Complications: No
[2019-01-05] MEDS: HumuLIN R SUB-Q SCH ×2 (01:43→08:42)
[2019-01-05 05:56] LABS: Calcium 9.4 mg/dL (8.4-10.2)
[2019-01-05] MEDS: MORPHINE IV PRN (08:04)
[2019-01-05] MEDS: APRESOLINE PO SCH (10:04)
[2019-01-05] MEDS: NORVASC PO SCH (10:05)
[2019-01-05] MEDS: TOPROL XL PO SCH (10:06)
[2019-01-05] MEDS: SODIUM CHLORIDE FLUSH SYRINGE 10 ML IV SCH (10:06)
[2019-01-05] MEDS: PEPCID PO SCH (10:06)
[2019-01-05] MEDS: PROzac PO SCH ×2 (10:06→10:08)
--- NOTE | 2019-01-05 10:19 | Progress Note ---
Assessment and Plan - Patient Problems (1) ESRD needing dialysis Current Visit: No Status: Chronic Plan to address problem: Hemodialysis on a Monday, and Monday schedule. Stable for discharge from renal stand point after HD (2) Swelling of right upper extremity Current Visit: Yes Status: Acute Plan to address problem: Probably a hematoma. Patient was on Plavix which has been stopped. s/p incision and drainage (3) Chronic HFrEF (heart failure with reduced ejection fraction) Current Visit: Yes Status: Acute Plan to address problem: Patient is euvolemic (4) Anemia in CKD (chronic kidney disease) Current Visit: No Status: Acute Qualifiers: Chronic kidney disease stage: on chronic dialysis Qualified Code(s): N18.6 - End stage renal disease; D63.1 - Anemia in chronic kidney disease; Z99.2 - Dependence on renal dialysis Plan to address problem: Erythropoetin on dialysis if hemoglobin is less than 11 g/dL. Follow-up hemoglobin (5) Hypertensive chronic kidney disease with stage 5 chronic kidney disease or end stage renal disease Current Visit: No Status: Chronic Plan to address problem: Follow-up blood pressure on current medications. (6) Type 2 diabetes mellitus with diabetic chronic kidney disease Current Visit: No Status: Chronic Qualifiers: Chronic kidney disease stage: on chronic dialysis Plan to address problem: Blood sugar management by primary attending Subjective Date of service: 01/05/19 Principal diagnosis: End stage renal disease, right forearm hematoma with pain Interval history: Pt awake alert, in NAD Objective - Vital Signs Vital signs: Vital Signs - 12hr 01/04/19 01/05/19 01/05/19 22:39 02:30 07:23 Temperature 97.8 F 98.2 F Pulse Rate 67 70 73 Respiratory 18 20 Rate Blood Pressure 129/94 136/89 Blood Pressure 132/42 [Left] O2 Sat by Pulse 97 99 Oximetry - General Appearance General appearance: appears stated age, chronically ill, frail EENT: ATNC, PERRL, mucous membranes moist Neck: no JVD Respiratory: Present: Clear to Ascultation Cardiology: regular, S1S2 Gastrointestinal: normoactive bowel sounds Integumentary: no rash, other (no edema ) Neurologic: no focal deficit, alert and oriented x3, strength 5/5, CN 3-12 intact Psychiatric: mood/affect appropriate, cooperative - Lab 01/04/19 04:35 01/05/19 04:44 Most recent lab results Calcium 9.4 mg/dL (8.4-10.2) 01/05/19 04:44 Medications & Allergies - Medications Allergies/Adverse Reactions: Allergies aspirin Allergy (Verified 01/02/19 14:41) Unknown stomach cramps pork derived (porcine) Allergy (Verified 01/02/19 14:41) Rash venom-honey bee [bee venom (honey bee)] Allergy (Verified 01/02/19 14:41) Anaphylaxis Pork/Porcine Containing Products Adverse Reaction (Severe, Verified 01/02/19 14:41) Nausea,VOMITING Home Medications: Home Medications Medication Instructions Recorded Confirmed Last Taken Type Acetaminophen [Acetaminophen TAB] 650 mg PO Q4H PRN tablet 05/05/18 01/02/19 01/01/19 Rx FLUoxetine HCL [Fluoxetine HCl] 40 mg PO QDAY #30 capsule 09/05/18 01/02/19 01/01/19 Rx levoFLOXacin [Levaquin TAB] 500 mg PO QDAY #7 tablet 12/01/18 01/02/19 01/01/19 Rx metroNIDAZOLE [Flagyl TAB] 500 mg PO Q8HR #21 tablet 12/01/18 01/02/19 01/01/19 Rx Apixaban [Eliquis] 2.5 mg PO Q12HR #60 tablet 12/29/18 01/02/19 01/01/19 Rx AtorvaSTATin [Lipitor] 40 mg PO QHS #30 tablet 12/29/18 01/02/19 01/01/19 Rx Epoetin Prashant 10,000 Unit [Procrit] 10,000 unit SUB-Q KATERYNA PRN #30 vial 12/29/18 01/02/19 12/19/18 Rx Famotidine [Pepcid] 10 mg PO BID #15 tablet 12/29/18 01/02/19 01/01/19 Rx Metoprolol Xl [Metoprolol 100 mg PO QDAY #30 tablet 12/29/18 01/02/19 01/01/19 Rx SUCCINATE ER TAB] amLODIPine [Norvasc] 10 mg PO DAILY #30 tablet 12/29/18 01/02/19 01/01/19 Rx cloNIDine 0.3 mg PO ONCE #30 12/29/18 01/02/19 01/01/19 Rx hydrALAZINE [Apresoline TAB] 50 mg PO BID #60 tablet 12/29/18 01/02/19 01/01/19 Rx traMADol [Ultram 50 MG tab] 50 mg PO Q4HR PRN #8 tablet 12/29/18 01/02/19 01/01/19 Rx diphenhydrAMINE [Benadryl CAP] 50 mg PO Q8HR PRN 01/02/19 01/02/19 01/01/19 History Active Medications: Generic Name Dose Route Start Last Admin Trade Name Freq PRN Reason Stop Dose Admin Acetaminophen 650 mg 01/02/19 19:43 Tylenol PO Q4H PRN Pain MILD(1-3)/Fever >100.5/DOUGLAS Amlodipine Besylate 10 mg 01/03/19 10:00 01/05/19 10:05 Norvasc PO Not Given DAILY BEAN Atorvastatin Calcium 40 mg 01/02/19 22:00 01/04/19 22:39 Lipitor PO 40 mg QHS BEAN Administration Dextrose 50 ml 01/02/19 19:48 D50w (25gm) Syringe IV PRN PRN Hypoglycemia Epoetin Prashant 10,000 unit 01/03/19 11:00 01/03/19 17:00 Procrit IV 10,000 unit KATERYNA PRN Administration hemodialysis Famotidine 10 mg 01/02/19 22:00 01/05/19 10:06 Pepcid PO 10 mg BID BEAN Administration Fluoxetine HCl 40 mg 01/03/19 10:00 01/05/19 10:08 Prozac PO Not Given QDAY BEAN Hydralazine HCl 50 mg 01/03/19 10:00 01/05/19 10:04 Apresoline PO Not Given BID BEAN Hydralazine HCl 10 mg 01/02/19 21:20 01/04/19 15:50 Apresoline IV 10 mg Q4H PRN Administration Blood Pressure Sodium Chloride 100 mls @ 999 mls/hr 01/03/19 11:00 Nacl 0.9% IV KATERYNA PRN Hypotension Sodium Chloride 1,000 mls @ 42 mls/hr 01/04/19 12:42 01/04/19 11:55 Nacl 0.9% 1000 Ml IV 42 mls/hr DIRECT BEAN Administration Insulin Human Regular 0 units 01/03/19 11:30 07/20/19 08:42 Humulin R SUB-Q Not Given ACHS ON LICENSE OF [facility] Protocol Metoprolol Succinate 100 mg 01/03/19 10:00 01/05/19 10:06 Toprol Xl PO Not Given QDAY ON LICENSE OF [facility] Morphine Sulfate 2 mg 01/04/19 10:14 01/05/19 08:04 Morphine IV 2 mg Q4H PRN Administration Pain , Severe (7-10) Ondansetron HCl 4 mg 01/02/19 19:43 01/04/19 16:42 Zofran IV 4 mg Q8H PRN Administration Nausea And Vomiting Sodium Chloride 10 ml 01/02/19 22:00 01/05/19 10:06 Sodium Chloride Flush Syringe 10 Ml IV 10 ml BID BEAN Administration Sodium Chloride 10 ml 01/02/19 19:43 Sodium Chloride Flush Syringe 10 Ml IV PRN PRN LINE FLUSH
--- NOTE | 2019-01-05 10:40 | Progress Note ---
Assessment and Plan Cardiac status is stable, day 1 status post evacuation of right arm hematoma. Subjective Date of service: 01/05/19 Principal diagnosis: End stage renal disease, right forearm hematoma with pain Interval history: Patient is comfortable, day 1 status post evacuation of right hematoma. No chest pain, no cardiac complaints. Objective Vital Signs Temp Pulse Resp BP BP Pulse Ox 01/05/19 07:23 98.2 F 73 20 136/89 99 01/05/19 02:30 97.8 F 70 18 132/42 97 01/04/19 22:39 67 129/94 01/04/19 19:02 97.5 F L 67 18 129/94 100 01/04/19 16:17 91 H 14 148/92 97 01/04/19 16:12 97 H 14 154/94 99 01/04/19 16:02 96 H 18 172/76 99 01/04/19 15:50 98 H 180/110 01/04/19 15:47 98.6 F 92 H 19 180/110 99 01/04/19 15:32 88 17 159/110 99 01/04/19 15:27 90 16 166/112 99 01/04/19 15:22 92 H 14 172/110 99 01/04/19 15:17 98.4 F 97 H 16 163/110 96 01/04/19 11:30 97.3 F L 71 16 140/78 98 01/04/19 11:20 97.3 F L 71 16 140/78 98 - Physical Examination General: No Apparent Distress HEENT: Positive: PERRL Neck: Positive: trachea midline Cardiac: Positive: Reg Rate and Rhythm Lungs: Positive: Decreased Breath Sounds Neuro: Positive: Grossly Intact Abdomen: Positive: Soft Skin: Positive: Clear Extremities: Absent: edema - Labs and Meds Comprehensive Metabolic Panel 01/05/19 Range/Units 04:44 Sodium 140 (137-145) mmol/L Potassium 4.7 (3.6-5.0) mmol/L Chloride 99.0 (98-107) mmol/L Carbon Dioxide 26 (22-30) mmol/L BUN 34 H (9-20) mg/dL Creatinine 6.4 H (0.8-1.5) mg/dL Glucose 132 H (75-100) mg/dL Calcium 9.4 (8.4-10.2) mg/dL
--- NOTE | 2019-01-05 10:43 | Discharge Summary ---
<MADELEINE RIOS - Last Filed: 01/05/19 11:23> Providers - Providers Date of Admission: 01/02/19 19:43 Attending physician: GINA CONTRERAS MD 01/02/19 17:50 Consult to Physician [CONS] Urgent Comment: GLENDA Consulting Provider: OWLF BAH Physician Instructions: CONSULT WAS CALLED TO /LIGIA Reason For Exam: right arm hematoma 01/02/19 19:48 Consult to Physician [CONS] Routine Comment: GLENDA Consulting Provider: FERN ARIAS Physician Instructions: CONSULT WAS CALLED TO /RTUH Reason For Exam: ESRD on HD T/TH/S 01/02/19 19:52 Consult to Physician [CONS] Routine Comment: GLENDA Consulting Provider: COLLEEN SAGE Physician Instructions: CHU ACEVEDO WAS NOTIFIED/LONI Reason For Exam: hx systolic HF,?? surgery in am, est pt [facility] 01/03/19 10:44 Consult to Physician [CONS] Routine Comment: GLENDA Consulting Provider: VICKY HUERTAS Physician Instructions: CONSULT WAS CALLED TO /APOLLO Reason For Exam: right arm hematoma Primary care physician: [facility] MD ARMINDA Hospitalization Condition: Stable Disposition: DC-01 TO HOME OR SELFCARE Exam - Constitutional Vitals: Temp Pulse Resp BP Pulse Ox 98.2 F 73 20 136/89 99 01/05/19 07:23 01/05/19 07:23 01/05/19 07:23 01/05/19 07:23 01/05/19 07:23 Plan Wound: per your surgeon's advice (OK TO REMOVE COMPRESSION DRESSING ON SUNDAY 01/07. LEAVE STERISTRIPS IN PLACE. ) Follow up with: JUANITA ROCKWELL MD [Primary Care Provider] - 3-5 Days VICKY HUERTAS MD [Staff Physician] - 7 Days <GINA CONTRERAS - Last Filed: 01/05/19 15:35> Providers - Providers Date of Admission: 01/02/19 19:43 Date of discharge: 01/05/19 Attending physician: GINA CONTRERAS MD 01/02/19 17:50 Consult to Physician [CONS] Urgent Comment: GLENDA Consulting Provider: WOLF BAH Physician Instructions: CONSULT WAS CALLED TO /LIGIA Reason For Exam: right arm hematoma 01/02/19 19:48 Consult to Physician [CONS] Routine Comment: GLENDA Consulting Provider: FERN ARIAS Physician Instructions: CONSULT WAS CALLED TO /RUTH Reason For Exam: ESRD on HD T/TH/S 01/02/19 19:52 Consult to Physician [CONS] Routine Comment: GLENDA Consulting Provider: COLLEEN SAGE Physician Instructions: CHU ACEVEDO WAS NOTIFIED/LONI Reason For Exam: hx systolic HF,?? surgery in am, est pt [facility] 01/03/19 10:44 Consult to Physician [CONS] Routine Comment: GLENDA Consulting Provider: VICKY HUERTAS Physician Instructions: CONSULT WAS CALLED TO /APOLLO Reason For Exam: right arm hematoma [facility] Reason for admission: RUE hematoma, ESRD on HD, CHF Hospital course: 71-year-old -Citizen Of The [place] male with history of ESRD on HD T/Th/S, hepatitis C, chronic anemia, hypertension, A. fib on Eliquis, amputation of left hand/forearm who presents to [facility] ED with complaints of pain and swelling to right upper extremity for the past 2 days. Right upper extremity arterial duplex showed superficial thrombosis within the right cephalic vein, negative for DVT. Vascular surgery consulted and recommend surgical consult for hematoma evacuation. General surgery did hematoma evacuation and pain markedly decreased. General surgery cleared him for discharge with follow up in 1 week in the office. Patient was hemodynamically stable during my exam. ESRD on HD T/Th/S. Chronic systolic heart failure seen by immigration officer and recommend conservative management. Atrial fibrillation rate controlled on Eliquis Hypertension; controlled Chronic hypoxic respiratory failure; stable Chronic anemia; stable Hep C positive; O/P GI follow up COPD; stable Left hand/forearm amputation History of PTSD Patient was discharged home in a stable condition. Time spent for discharge: 32 minutes - Discharge Diagnoses (1) A-fib Status: Acute (2) CHF (congestive heart failure) Status: Acute (3) Acute thrombosis of right cephalic vein Status: Acute (4) Chronic HFrEF (heart failure with reduced ejection fraction) Status: Acute (5) Right arm pain Status: Acute (6) Swelling of right upper extremity Status: Acute (7) HTN (hypertension) Status: Acute (8) Nonischemic cardiomyopathy Status: Acute Core Measure Documentation - Palliative Care Palliative Care/ Comfort Measures: Not Applicable - Core Measures Any of the following diagnoses?: none Exam - Physical Exam Narrative exam: Not in cardiopulmonary distress. The patient appeared well nourished and normally developed. Vital signs as documented. Head exam is unremarkable. No scleral icterus . Neck is without jugular venous distension, thyromegaly, or carotid bruits. Lungs are clear to auscultation. Cardiac exam reveals regular rate and Rhythm. First and second heart sounds normal. No murmurs, rubs or gallops. Abdominal exam reveals normal bowel sounds, no masses, no organomegaly and no aortic enlargement. Extremities are clean dressing on the right forearm, amputated left arm below the elbow. LEGAL BILLING SPECIALIST: Alert and oriented 3. No focal weakness. - Constitutional Vitals: Temp Pulse Resp BP Pulse Ox 98.2 F 73 20 136/89 99 01/05/19 07:23 01/05/19 07:23 01/05/19 07:23 01/05/19 07:23 01/05/19 07:23 Plan Activity: no restrictions Weight Bearing Status: Full Weight Bearing Diet: low cholesterol, low salt Wound: per your surgeon's advice
--- NOTE | 2019-01-05 11:25 | Progress Note ---
Assessment and Plan 71 YO M s/p evacuation of right arm hematoma, POD 1 Patient doing well. Wound with steristrips in place, some bloody staining of steristrips towards distal 2-3 cm of wound but no active bleeding 1. Patient given verbal wound care instructions. Also written in dc paperwork 2. ok to dc from surgery standpoint, patient to follow up with Dr. Gonzalez in 7 days Thank you, please call with questions. D/W Dr. Thomas Subjective Date of service: 01/05/19 Narrative: Pt seen and examined. c/o soreness at the surgical site R arm. No f/c. He loosened his own compression dressing because he states it was too tight and causing his hand to swell. Objective Vital Signs - 12hr 01/05/19 01/05/19 02:30 07:23 Temperature 97.8 F 98.2 F Pulse Rate 70 73 Respiratory 18 20 Rate Blood Pressure 136/89 Blood Pressure 132/42 [Left] O2 Sat by Pulse 97 99 Oximetry - General physical appearance Narrative Exam: Gen: AAOx3. NAD CV; s1, S2+ resp: even and unlabored Ext: R arm dressing intact - all dressing removed and wound examined. No swelling, hematoma, erythema. Mild periwound tenderness, but appropriate. Steristrips in place. Some bloody staining of distal 2-3 cm of steristrips but no active bleeding. Fistula with +thrill and pulse. Clean 4x4 gauze applied and arm wrapped with BEATRICE wrap. - Labs 01/04/19 04:35 01/05/19 04:44 Diabetes panel 01/05/19 Range/Units 04:44 Sodium 140 (137-145) mmol/L Potassium 4.7 (3.6-5.0) mmol/L Chloride 99.0 (98-107) mmol/L Carbon Dioxide 26 (22-30) mmol/L BUN 34 H (9-20) mg/dL Creatinine 6.4 H (0.8-1.5) mg/dL Glucose 132 H (75-100) mg/dL Calcium 9.4 (8.4-10.2) mg/dL Calcium panel 01/05/19 Range/Units 04:44 Calcium 9.4 (8.4-10.2) mg/dL Pituitary panel 01/05/19 Range/Units 04:44 Sodium 140 (137-145) mmol/L Potassium 4.7 (3.6-5.0) mmol/L Chloride 99.0 (98-107) mmol/L Carbon Dioxide 26 (22-30) mmol/L BUN 34 H (9-20) mg/dL Creatinine 6.4 H (0.8-1.5) mg/dL Glucose 132 H (75-100) mg/dL Calcium 9.4 (8.4-10.2) mg/dL Adrenal panel 01/05/19 Range/Units 04:44 Sodium 140 (137-145) mmol/L Potassium 4.7 (3.6-5.0) mmol/L Chloride 99.0 (98-107) mmol/L Carbon Dioxide 26 (22-30) mmol/L BUN 34 H (9-20) mg/dL Creatinine 6.4 H (0.8-1.5) mg/dL Glucose 132 H (75-100) mg/dL Calcium 9.4 (8.4-10.2) mg/dL
[2019-01-05] MEDS ORDERED: NACL 0.9 (PRIMING MACHINE ONLY DIALYSIS) MC ONE (13:34)
[2019-01-05 16:59] VITALS: BP 152/49
== END 2019-01-05 20:15 | disposition home or self-care (01) | DRG 314 ==
LOC: EDBD → ED 14:27 → EDBD 19:43 → 2B-ACE 19:43
PROVIDERS: ADMIT Internal Medicine; ATTEND Internal Medicine
PROC: 5A1D70Z Performance of Urinary Filtration, Intermittent, Less than 6 Hours Per Day (ICD-10-PCS; principal; 2019-01-02)
PROC: 5A1D70Z Performance of Urinary Filtration, Intermittent, Less than 6 Hours Per Day (ICD-10-PCS; 2019-01-03)
PROC: 0JCG0ZZ Extirpation of Matter from Right Lower Arm Subcutaneous Tissue and Fascia, Open Approach (ICD-10-PCS; 2019-01-04)
DX: T82.868A Thrombosis due to vascular prosthetic devices, implants and grafts, initial encounter (principal); N18.6 End stage renal disease; I50.22 Chronic systolic (congestive) heart failure; J96.11 Chronic respiratory failure with hypoxia; I13.2 Hypertensive heart and chronic kidney disease with heart failure and with stage 5 chronic kidney disease, or end stage renal disease; I82.611 Acute embolism and thrombosis of superficial veins of right upper extremity; I42.0 Dilated cardiomyopathy; R64 Cachexia; Z68.1 Body mass index [BMI] 19.9 or less, adult; I69.354 Hemiplegia and hemiparesis following cerebral infarction affecting left non-dominant side; M79.89 Other specified soft tissue disorders; D63.1 Anemia in chronic kidney disease; E11.22 Type 2 diabetes mellitus with diabetic chronic kidney disease; M19.90 Unspecified osteoarthritis, unspecified site; F43.10 Post-traumatic stress disorder, unspecified; J44.9 Chronic obstructive pulmonary disease, unspecified; B19.20 Unspecified viral hepatitis C without hepatic coma; I48.0 Paroxysmal atrial fibrillation; I25.10 Atherosclerotic heart disease of native coronary artery without angina pectoris; Y83.8 Other surgical procedures as the cause of abnormal reaction of the patient, or of later complication, without mention of misadventure at the time of the procedure; Y92.89 Other specified places as the place of occurrence of the external cause; D69.6 Thrombocytopenia, unspecified; Z99.2 Dependence on renal dialysis; Z86.718 Personal history of other venous thrombosis and embolism; Z91.048 Other nonmedicinal substance allergy status; Z91.030 Bee allergy status; Z88.8 Allergy status to other drugs, medicaments and biological substances; Z79.01 Long term (current) use of anticoagulants; Z87.891 Personal history of nicotine dependence
CPT/HCPCS: 36415; 71045; 80048; 82962; 85007; 85025; 85610; 85730; 88304; 88307; 93005; 93010; G0378; A9270-GY; J0360; J0690; J0885; J2001; J2250; J2270; J2405; J3010; J7030

== ENCOUNTER 2019-01-07 22:13 | Emergency (ER) | payer MEDICAID ==
[2019-01-08] MEDS ORDERED: SUBLIMAZE IM ONE (00:05)
[2019-01-08] MEDS ORDERED: ZOFRAN IM ONE (00:05)
--- NOTE | 2019-01-08 00:19 | Emergency Department Report ---
HPI - General Chief Complaint: Extremity Injury, Upper Time Seen by Provider: 01/07/19 23:20 - HPI HPI: Hallway 25 The patient is a 63-year-old male presenting with a chief complaint of right upper extremity pain bleeding. The patient was admitted to the hospital by myself last week for spontaneous hematoma to the right forearm. Patient underwent an incision and drainage of the hematoma 01/04/2019. The patient states today while we were himself in his wheelchair he actually struck his right arm on the wheelchair and began bleeding from the surgical site. 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 abd surgery after war related ingury partial "stomach removal'. Left upper extremity amputation - Family History Family history: no significant - Social History Smoking Status: Never Smoker Substance Use Type: None - Medications Home Medications: Home Medications Medication Instructions Recorded Confirmed Last Taken Type Acetaminophen [Acetaminophen TAB] 650 mg PO Q4H PRN tablet 05/05/18 01/02/19 01/01/19 Rx FLUoxetine HCL [Fluoxetine HCl] 40 mg PO QDAY #30 capsule 09/05/18 01/02/19 01/01/19 Rx levoFLOXacin [Levaquin TAB] 500 mg PO QDAY #7 tablet 12/01/18 01/02/19 01/01/19 Rx metroNIDAZOLE [Flagyl TAB] 500 mg PO Q8HR #21 tablet 12/01/18 01/02/19 01/01/19 Rx Apixaban [Eliquis] 2.5 mg PO Q12HR #60 tablet 12/29/18 01/02/19 01/01/19 Rx AtorvaSTATin [Lipitor] 40 mg PO QHS #30 tablet 12/29/18 01/02/19 01/01/19 Rx Epoetin Prashant 10,000 Unit [Procrit] 10,000 unit SUB-Q KATERYNA PRN #30 vial 12/29/18 01/02/19 12/19/18 Rx Famotidine [Pepcid] 10 mg PO BID #15 tablet 12/29/18 01/02/19 01/01/19 Rx Metoprolol Xl [Metoprolol 100 mg PO QDAY #30 tablet 12/29/18 01/02/19 01/01/19 Rx SUCCINATE ER TAB] amLODIPine [Norvasc] 10 mg PO DAILY #30 tablet 12/29/18 01/02/19 01/01/19 Rx cloNIDine 0.3 mg PO ONCE #30 12/29/18 01/02/19 01/01/19 Rx hydrALAZINE [Apresoline TAB] 50 mg PO BID #60 tablet 12/29/18 01/02/19 01/01/19 Rx traMADol [Ultram 50 MG tab] 50 mg PO Q4HR PRN #8 tablet 12/29/18 01/02/19 0 01/01/19 Rx diphenhydrAMINE [Benadryl CAP] 50 mg PO Q8HR PRN 01/02/19 01/02/19 01/01/19 History HYDROcodone/APAP 5-325 [[place] 1 - 2 each PO Q6HR PRN #14 tablet 01/08/19 Unknown Rx 5/325] ED Review of Systems ROS: Stated complaint: SUTURES OPENED Other details as noted in HPI Constitutional: no symptoms reported Eyes: denies: eye pain ENT: denies: throat pain Respiratory: no symptoms reported Cardiovascular: denies: chest pain Endocrine: no symptoms reported Gastrointestinal: denies: abdominal pain Genitourinary: denies: dysuria Musculoskeletal: myalgia Neurological: denies: headache Physical Exam - Physical Exam Vital Signs: Vital Signs 01/07/19 01/07/19 22:21 22:34 Temperature 97.8 F Pulse Rate 56 L 64 Respiratory 16 16 Rate Blood Pressure 113/78 117/88 [Left] O2 Sat by Pulse 97 98 Oximetry Physical Exam: GENERAL: The patient is well-developed well-nourished []. [] HEENT: Normocephalic. Atraumatic. Extraocular motions are intact. Patient has moist mucous membranes. NECK: Supple. No meningitic signs are noted. There is no adenopathy noted. CHEST/LUNGS: Clear to auscultation. There is no respiratory distress noted. HEART/CARDIOVASCULAR: Regular. There is no tachycardia. There is no gallop rub or murmur. ABDOMEN: Abdomen is soft, nontender. Patient has normal bowel sounds. There is no abdominal distention. SKIN: There is no rash. There is no edema. There is no diaphoresis. NEURO: The patient is awake, alert, and oriented. The patient is cooperative. The patient has no focal neurologic deficits. The patient has normal speech and gait. MUSCULOSKELETAL: There is no tenderness or deformity. There is no limitation range of motion. There is no evidence of acute injury. ED Course Vital Signs 01/07/19 01/07/19 22:21 22:34 Temperature 97.8 F Pulse Rate 56 L 64 Respiratory 16 16 Rate Blood Pressure 113/78 117/88 [Left] O2 Sat by Pulse 97 98 Oximetry - Consultations Consultation #1: 01/08/19 00:24 Surgery paged- case discussed with Dr. Jj. Patient is currently hemostatic. Recommends a pressure dressing Critical care attestation.: If time is entered above; I have spent that time in minutes in the direct care of this critically ill patient, excluding procedure time. ED Disposition Clinical Impression: Postoperative bleeding from incision Disposition: DC-01 TO HOME OR SELFCARE Is pt being admited?: No Does the pt Need Aspirin: No Condition: Stable Additional Instructions: Return to the emergency department immediately should you develop worsening symptoms, fever, inability to tolerate food or liquid or any other concerns. Prescriptions: HYDROcodone/APAP 5-325 [[place] 5/325] 1 - 2 each PO Q6HR PRN #14 tablet PRN Reason: Pain Referrals: VICKY HUERTAS MD [Staff Physician] - 3-5 Days Time of Disposition: 00:26
[2019-01-08 01:14] VITALS: BP 125/86
== END 2019-01-08 11:10 | disposition home or self-care (01) ==
LOC: ED 22:13
DX: L76.22 Postprocedural hemorrhage of skin and subcutaneous tissue following other procedure (principal); I11.0 Hypertensive heart disease with heart failure; I50.9 Heart failure, unspecified; E11.9 Type 2 diabetes mellitus without complications; M19.90 Unspecified osteoarthritis, unspecified site; J44.9 Chronic obstructive pulmonary disease, unspecified; F43.10 Post-traumatic stress disorder, unspecified
CPT/HCPCS: 96372; 99283; J2405; J3010

== ENCOUNTER 2019-01-15 20:36 | Inpatient (IN) | payer MEDICAID ==
[2019-01-15] MEDS ORDERED: SUBLIMAZE IM ONE (20:50)
[2019-01-15] MEDS ORDERED: ZOFRAN IM ONE (20:50)
[2019-01-15] MEDS ORDERED: BENADRYL IM ONE (20:51)
--- NOTE | 2019-01-15 20:56 | Emergency Department Report ---
HPI - General Chief Complaint: Extremity Injury, Upper Time Seen by Provider: 01/15/19 20:45 - HPI HPI: Room 18 The patient is a 63-year-old male presenting with chief complaint surgical site. The patient again returns to the emergency department with a chief complaint of bleeding from surgical site. Patient had a hematoma evacuated from his right u pper extremity 01/04/2019. The patient states she has not yet had a chance to follow up with the surgeon who performed the procedure (Dr. Gonzalez). Patient states he was scheduled to have an appointment today however his transportation van did not pick him up. Patient states he noticed blood on his clothing coming from the dressing of the right upper extremity. The patient has an Slim bandage wrapped around the wound and there is no apparent bleed through visualized Location: [See above] Duration: [See above] Quality: [See above] Severity: [See above] Modifying factors: [see above] Context: [see above] Mode of transportation: [not driving] ED Past Medical Hx - Past Medical History Hx Hypertension: Yes Hx Congestive Heart Failure: Yes Hx Diabetes: Yes Hx Deep Vein Thrombosis: Yes Hx Liver Disease: Yes (HCV) Hx Renal Disease: Yes Hx Arthritis: Yes Hx Psychiatric Treatment: Yes (PTSD) Hx COPD: Yes (no recent exacerbations) Additional medical history: 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 abd surgery after war related ingury partial "stomach removal'. Left upper extremity amputation - Family History Family history: no significant - Social History Smoking Status: Former Smoker Substance Use Type: None - Medications Home Medications: Home Medications Medication Instructions Recorded Confirmed Last Taken Type Acetaminophen [Acetaminophen TAB] 650 mg PO Q4H PRN tablet 05/05/18 01/02/19 01/01/19 Rx FLUoxetine HCL [Fluoxetine HCl] 40 mg PO QDAY #30 capsule 09/05/18 01/02/19 01/01/19 Rx levoFLOXacin [Levaquin TAB] 500 mg PO QDAY #7 tablet 12/01/18 01/02/19 01/01/19 Rx metroNIDAZOLE [Flagyl TAB] 500 mg PO Q8HR #21 tablet 12/01/18 01/02/1901/01/19 Rx Apixaban [Eliquis] 2.5 mg PO Q12HR #60 tablet 12/29/18 01/02/19 01/01/19 Rx AtorvaSTATin [Lipitor] 40 mg PO QHS #30 tablet 12/29/18 01/02/19 01/01/19 Rx Epoetin Prashant 10,000 Unit [Procrit] 10,000 unit SUB-Q KATERYNA PRN #30 vial 12/29/18 01/02/19 12/19/18 Rx Famotidine [Pepcid] 10 mg PO BID #15 tablet 12/29/18 01/02/19 01/01/19 Rx Metoprolol Xl [Metoprolol 100 mg PO QDAY #30 tablet 12/29/18 01/02/19 01/01/19 Rx SUCCINATE ER TAB] amLODIPine [Norvasc] 10 mg PO DAILY #30 tablet 12/29/18 01/02/19 01/01/19 Rx cloNIDine 0.3 mg PO ONCE #30 12/29/18 01/02/19 01/01/19 Rx hydrALAZINE [Apresoline TAB] 50 mg PO BID #60 tablet 12/29/18 01/02/19 01/01/19 Rx traMADol [Ultram 50 MG tab] 50 mg PO Q4HR PRN #8 tablet 12/29/18 01/02/19 01/01/19 Rx diphenhydrAMINE [Benadryl CAP] 50 mg PO Q8HR PRN 01/02/19 01/02/19 01/01/19 History HYDROcodone/APAP 5-325 [[place] 1 - 2 each PO Q6HR PRN #14 tablet 01/08/19 Unknown Rx 5/325] ED Review of Systems ROS: Stated complaint: RT ARM PAIN Other details as noted in HPI Constitutional: no symptoms reported Eyes: denies: eye pain ENT: denies: throat pain Respiratory: no symptoms reported Cardiovascular: denies: chest pain Endocrine: no symptoms reported Gastrointestinal: denies: abdominal pain Musculoskeletal: myalgia. denies: back pain Neurological: denies: headache Physical Exam - Physical Exam Vital Signs: Vital Signs 01/15/19 20:43 Pulse Rate 109 H Respiratory 12 Rate Blood Pressure 169/130 O2 Sat by Pulse 98 Oximetry Physical Exam: GENERAL: The patient is well-developed well-nourished male lying on stretcher not appearing to be in acute distress. [] HEENT: Normocephalic. Atraumatic. Extraocular motions are intact. Patient has moist mucous membranes. NECK: Supple. Trachea midline CHEST/LUNGS: There is no respiratory distress noted. HEART/CARDIOVASCULAR: Regular. There is no tachycardia. SKIN: There is no rash. There is no edema. There is no diaphoresis. No evidence of bleeding from right forearm surgical site NEURO: The patient is awake, alert, and oriented. The patient is cooperative. The patient has normal speech MUSCULOSKELETAL: There is no evidence of acute injury. ED Course Vital Signs 01/15/19 20:43 Pulse Rate 109 H Respiratory 12 Rate Blood Pressure 169/130 O2 Sat by Pulse 98 Oximetry ED Medical Decision Making - Lab Data Result diagrams: 01/15/19 21:30 01/15/19 21:30 Laboratory Tests 01/15/19 01/15/19 21:30 21:30 WBC 4.3 L RBC 3.66 Hgb 11.9 Hct 36.7 MCV 100 H MCH 33 H MCHC 32 RDW 17.6 H Plt Count 142 Lymph % (Auto) 34.4 Eddy % (Auto) 11.4 H Eos % (Auto) 3.7 Baso % (Auto) 2.4 H Lymph # 1.5 Eddy # 0.5 Eos # 0.2 Baso # 0.1 Seg Neutrophils % 48.1 Seg Neutrophils # 2.1 Sodium 138 Potassium 6.1 H* D Chloride 99.8 Carbon Dioxide 18 L Anion Gap 26 BUN 82 H Creatinine 10.3 H D Estimated GFR 6 BUN/Creatinine Ratio 8 Glucose 88 Calcium 9.2 - EKG Data -: EKG Interpreted by Me Rate: tachycardia - EKG Data When compared to previous EKG there are: previous EKG unavailable Interpretation: other - Differential Diagnosis postop pain, postop bleeding Critical care attestation.: If time is entered above; I have spent that time in minutes in the direct care of this critically ill patient, excluding procedure time. ED Disposition Clinical Impression: Atrial fibrillation with rapid ventricular response, ESRD needing dialysis, Hyperkalemia Disposition: OP ADMIT IP TO THIS HOSP Is pt being admited?: Yes Does the pt Need Aspirin: No Condition: Fair Referrals: PRIMARY CARE, [Referring] - 3-5 Days Time of Disposition: 22:49 (Hospitalist paged (Dr Adhikari))
[2019-01-15 21:51] LABS: Basophils # (Auto) 0.1 K/mm3 (0.0-0.1); Basophils % (Auto) 2.4 % (0.0-1.8); Eosinophils # (Auto) 0.2 K/mm3 (0.0-0.4); Eosinophils % (Auto) 3.7 % (0.0-4.3); Hematocrit 36.7 % (35.5-45.6); Hemoglobin 11.9 gm/dl (11.8-15.2); Lymphocytes # (Auto) 1.5 K/mm3 (1.2-5.4); Lymphocytes % (Auto) 34.4 % (13.4-35.0); Mean Corpuscular HGB Conc 32 % (32-34); Mean Corpuscular Volume 100 fl (84-94); Monocytes # (Auto) 0.5 K/mm3 (0.0-0.8); Monocytes % (Auto) 11.4 % (0.0-7.3); Platelet Count 142 K/mm3 (140-440); Red Blood Count 3.66 M/mm3 (3.65-5.03); Red Cell Distribution Width 17.6 % (13.2-15.2)
[2019-01-15 21:57] LABS: Calcium 9.2 mg/dL (8.4-10.2)
[2019-01-15] MEDS ORDERED: CARDIZEM IV ONE (22:05)
[2019-01-15] MEDS ORDERED: HumuLIN R IV ONE (22:39)
[2019-01-15] MEDS ORDERED: D50W (25GM) Syringe IV ONE (22:39)
[2019-01-15] MEDS ORDERED: CALCIUM GLUCONATE 1,000 MG in NACL 0.9% 100 ML IV ONE (22:39)
[2019-01-15] MEDS ORDERED: CARDIZEM/D5W 100MG/100ML 100 MG/100 ML BAG IV SCH (23:00)
[2019-01-15] MEDS ORDERED: ZOFRAN IV PRN (23:58)
[2019-01-16] MEDS ORDERED: D50W (25GM) Syringe IV PRN
[2019-01-16] MEDS: MORPHINE IV PRN ×5 (01:29→21:21)
[2019-01-16 03:19] LABS: Calcium 9.5 mg/dL (8.4-10.2)
--- NOTE | 2019-01-16 04:44 | History and Physical Report ---
CHIEF COMPLAINT: Pain in the right upper extremity notably forearm site of surgery. Also, the patient is complaining of bleeding from the site of hematoma evacuation in the right upper forearm. HISTORY OF PRESENTING ILLNESS: The patient is a 63-year-old male who had evacuation of the hematoma from the right upper extremity on 01/04/19 and said that he has been having pain in the site of the evacuation of hematoma on the right forearm. Also, the patient's said that he noticed blood stain on the dressing of the right forearm area. There is no history of numbness. No history of weakness of the right upper extremity. The patient also denied history of shortness of breath or chest pain or dizziness and said he has not been able to follow up with the surgeon, Dr. Gonzalez who performed the surgery on 12/29/18 because he had no transportation. PAST MEDICAL HISTORY: Pertinent for hypertension, congestive heart failure, diabetes mellitus, deep vein thrombosis, hepatitis C virus infection, end-stage renal disease, on dialysis, arthritis, posttraumatic stress disorder, COPD and arthritis of the neck. PAST SURGICAL HISTORY: Pertinent for neck and back surgery. Also, the patient has past surgical history of left upper extremity surgery due to blood clot, abdominal surgery and right upper extremity surgery. FAMILY HISTORY: Noncontributory. SOCIAL HISTORY: The patient used to smoke cigarettes, but does not smoke currently, does not drink alcohol and does not use illicit drugs. MEDICATIONS: The patient was on Tylenol 650 mg by mouth every 4 hours for fever and headache, fluoxetine 40 mg daily, Levaquin 500 mg daily, metronidazole 500 mg by mouth every 8 hours, Eliquis 2.5 mg by mouth every 24 hours, Lipitor 40 mg by mouth at bedtime, Procrit 10,000 units subcutaneous p.r.n., Pepcid 10 mg by mouth twice daily, metoprolol succinate 100 mg by mouth daily, amlodipine 10 mg by mouth daily, clonidine 0.3 mg by mouth once, hydralazine 50 mg by mouth twice daily, Ultram 50 mg by mouth every 4 hours as needed for pain, Benadryl 50 mg by mouth every 8 hours as needed for itching, Russell 5/325 mg 1-2 tablets by mouth every 6 hours as needed for pain. ALLERGIES: THE PATIENT IS ALLERGIC TO ASPIRIN, PORK, VENOM, HONEY BEE. REVIEW OF SYSTEMS: CONSTITUTIONAL: There are no fever, no chills, no diaphoresis. HEENT: There is no headache or sore throat. CARDIOVASCULAR SYSTEM: There is no chest pain or orthopnea. RESPIRATORY SYSTEM: There is no shortness of breath or cough. GASTROINTESTINAL SYSTEM: There is no nausea, no vomiting, no abdominal pain, diarrhea or constipation. NEUROLOGICAL SYSTEM: There is no numbness, no dizziness, no altered mental status. MUSCULOSKELETAL SYSTEM: There is complaint of pain in the right upper extremity and bleeding from the surgical site in the right forearm. DERMATOLOGICAL SYSTEM: There is no skin rash or itching. GENITOURINARY SYSTEM: There is dysuria, but no hematuria or flank pain. Rest of system review is normal. PHYSICAL EXAMINATION: GENERAL: At the time of exam, the patient was found to be alert, oriented x 3 and not in acute distress. VITAL SIGNS: At the initial time of presentation show normal temperature, pulse of 109, respirations 12, blood pressure 169/130, O2 sat of 98% on room air. The patient's blood pressure later came down to 155/93. EYES: Pupils to be equal, round, reactive to light and accommodating. Extraocular muscles are intact. NECK: Supple with no JVD or carotid bruit. CARDIOVASCULAR SYSTEM: Showed normal first and second heart sounds with no gallops or murmurs. RESPIRATORY SYSTEM: Showed good air entry on both sides of the lungs with no abnormal breath sounds. GASTROINTESTINAL: Show abdomen to be full, soft, nontender with no organomegaly or rigidity. NEUROLOGIC: Shows no focal deficit. MUSCULOSKELETAL SYSTEM: Show right forearm dressing bandage with no bleeding noted. DERMATOLOGICAL SYSTEM: Show no skin rash. GENITOURINARY SYSTEM: Show no costovertebral angle tenderness. PERTINENT LABORATORY AND IMAGING STUDIES: The patient has CBC done with low white count of 4300, normal hemoglobin and normal hematocrit with elevated MCV of 100. The patient's CBC differential showed elevated monocyte count of 11.4% and elevated basophil count of 2.4%. The patient's chemistry shows elevated potassium level of 6.1 with high BUN of 82 and high creatinine of 10.3 consistent with the patient's end-stage renal disease. IMAGING STUDIES: No imaging studies were done at this time. DIAGNOSES: 1. Hyperkalemia. 2. End-stage renal disease, on dialysis. 3. Atrial fibrillation with rapid ventricular rate. 4. History of bleeding from the surgical site on the right forearm area. PLAN OF CARE: 1. The patient will be admitted to telemetry because of irregular heartbeat. 2. The patient will have nephrology consult with Dr. Calvo for management of end-stage renal disease, on dialysis. 3. The patient will have surgical consult with Dr. Gonzalez who did surgery on the right upper extremity about 2 weeks ago. 4. The patient will be on Accu-Chek before meals and at bedtime, followed by low dose sliding scale, using regular insulin coverage. 5. The patient's diet will be consistent carbohydrate, low sodium diet. 6. The patient will continue Cardizem drip if heart rate stays above 100 as ordered by the emergency room. 7. The patient will be on IV morphine 2 mg every 3 hours as needed for pain and IV Zofran 4 mg every 8 hours as needed for nausea and vomiting. 8. The patient will have basic metabolic panel checked to monitor the potassium level. 9. The patient's home medications will be started as shown in the medication reconciliation section and this will include amlodipine for blood pressure as well as hydralazine by mouth for blood pressure treatment. JOB# [id number] [facility]/TAMIE CAMERON
[2019-01-16] MEDS: HumuLIN R SUB-Q SCH ×3 (08:36→17:59)
[2019-01-16] MEDS: ELIQUIS PO SCH ×2 (09:16→21:17)
[2019-01-16] MEDS: NORVASC PO SCH (09:16)
[2019-01-16] MEDS: PEPCID PO SCH ×2 (09:16→21:17)
[2019-01-16] MEDS: APRESOLINE PO SCH ×2 (09:17→21:19)
[2019-01-16] MEDS: PROzac PO SCH ×2 (09:17→09:18)
[2019-01-16] MEDS ORDERED: PROCRIT SUB-Q PRN (10:00)
[2019-01-16] MEDS ORDERED: NON-FORMULARY (Fluoxetine Hcl [Fluoxetine Hcl] 40 MG) PO SCH (10:00)
--- NOTE | 2019-01-16 10:09 | Consultation ---
History of Present Illness - Reason for Consult Consult date: 01/16/19 end stage renal disease, hyperkalemia - History of Present Illness The patient is a 63 YO male who is known to our service with history significant for DM type 2, HTN, Chronic A.fib, CAD, CHF, PTSD, PAD s/p left forearm ampu tation, chronic L pleural effusion (Transudate) and ESRD on hemodialysis (TTS) who presented to [facility] ED with c/o bleeding from surgical site. Patient had a hematoma evacuated from his right upper extremity on 01/04/2019. Patient states that he noticed blood coming from the dressing of the right forearm. He missed HD yesterday and was last dialyzed 4 days ago. Potassium level was 6.1 in the ED. Nephrology was consulted for ESRD and hyperkalemia management. Past History Past Medical History: atrial fib, anemia, dialysis, ESRD, hypertension Medications and Allergies Allergies Allergy/AdvReac Type Severity Reaction Status Date / Time aspirin Allergy Unknown Verified 01/02/19 14:41 pork derived (porcine) Allergy Rash Verified 01/02/19 14:41 venom-honey bee Allergy Anaphylaxis Verified 01/02/19 14:41 [bee venom (honey bee)] Pork/Porcine Containing AdvReac Severe Nausea,VOMI Verified 01/02/19 14:41 Products TING Home Medications Medication Instructions Recorded Confirmed Last Taken Type FLUoxetine HCL [Fluoxetine HCl] 40 mg PO QDAY #30 capsule 09/05/18 01/15/19 01/01/19 Rx Apixaban [Eliquis] 2.5 mg PO Q12HR #60 tablet 12/29/18 01/15/19 01/01/19 Rx AtorvaSTATin [Lipitor] 40 mg PO QHS #30 tablet 12/29/18 01/15/19 01/01/19 Rx Epoetin Prashant 10,000 Unit [Procrit] 10,000 unit SUB-Q KATERYNA PRN #30 vial 12/29/18 01/15/19 12/19/18 Rx Famotidine [Pepcid] 10 mg PO BID #15 tablet 12/29/18 01/15/19 01/01/19 Rx amLODIPine [Norvasc] 10 mg PO DAILY #30 tablet 12/29/18 01/15/19 01/01/19 Rx hydrALAZINE [Apresoline TAB] 50 mg PO BID #60 tablet 12/29/18 01/15/19 01/01/19 Rx diphenhydrAMINE [Benadryl CAP] 50 mg PO Q8HR PRN 01/02/19 01/15/19 01/01/19 History Carvedilol [Coreg] 25 mg PO BID #60 tablet 01/17/19 Unknown Rx Gabapentin [Neurontin 250 mg/5 ml] 300 mg PO Q8H PRN #30 bottle 01/21/19 Unknown Rx traMADol [Ultram 50 MG tab] 50 mg PO Q4HR PRN #10 tablet 01/21/19 Unknown Rx Active Meds: Active Medications Amlodipine Besylate (Norvasc) 10 mg PO DAILY [facility] Last Admin: 01/16/19 09:16 Dose: 10 mg Documented by: Apixaban (Eliquis) 2.5 mg PO Q12HR [facility]; Protocol Last Admin: 01/16/19 09:16 Dose: 2.5 mg Documented by: Atorvastatin Calcium (Lipitor) 40 mg PO QHS [facility] Carvedilol (Coreg) 25 mg PO BID [facility] Dextrose (D50w (25gm) Syringe) 50 ml IV PRN PRN PRN Reason: Hypoglycemia Famotidine (Pepcid) 5 mg PO BID [facility] Last Admin: 01/16/19 09:16 Dose: 5 mg Documented by: Fluoxetine HCl (Prozac) 40 mg PO QDAY [facility] Last Admin: 01/16/19 09:18 Dose: Not Given Documented by: Hydralazine HCl (Apresoline) 50 mg PO BID [facility] Last Admin: 01/16/19 09:17 Dose: 50 mg Documented by: Insulin Human Regular (Humulin R) 0 units SUB-Q [facility]; Protocol Last Admin: 01/16/19 08:36 Dose: Not Given Documented by: Insulin Human Regular (Humulin R) 0 units SUB-Q QHS [facility]; Protocol Morphine Sulfate (Morphine) 2 mg IV Q3H PRN PRN Reason: Pain, Moderate (4-6) Last Admin: 01/16/19 09:12 Dose: 2 mg Documented by: Ondansetron HCl (Zofran) 4 mg IV Q8H PRN PRN Reason: Nausea And Vomiting Review of Systems Constitutional: no weight loss, no weight gain, no fever, no chills, no anorexia Cardiovascular: high blood pressure, no chest pain, no orthopnea, no edema, no syncope, no lightheadedness, no shortness of breath, no leg edema Respiratory: no cough, no shortness of breath Gastrointestinal: no abdominal pain, no nausea, no vomiting, no diarrhea Genitourinary Male: no hematuria Neurological: no paralysis, no weakness, no seizures, no syncope, no convulsions, no aphasia, no change in speech, no change in mentation, no confusion, no memory loss, no sensory deficit, no double vision, no loss of vision Exam - Vital Signs Vital signs: Vital Signs Pulse Resp BP Pulse Ox 109 H 12 169/130 98 01/15/19 20:43 01/15/19 20:43 01/15/19 20:43 01/15/19 20:43 - General Appearance General appearance: well-developed, appears stated age, other (no distress, R IJ tunnel catheter) EENT: ATNC, PERRL, mucous membranes moist, hearing intact, vision intact Neck: Present: neck supple, trachea midline Respiratory: Clear to Ascultation Heart: S1S2, no murmurs Gastrointestinal: Present: normoactive bowel sounds. Absent: tenderness, distended Integumentary: no rash, warm and dry Neurologic: no focal deficit, no asterixis, alert and oriented x3 Musculoskeletal: Present: other (no edema, L farearm amputation) Results - Lab Results 01/17/19 05:12 01/17/19 05:12 Most recent lab results Calcium 9.5 mg/dL (8.4-10.2) 01/16/19 02:06 Assessment and Plan 1. ESRD: Continue hemodialysis three times a week, TTS schedule. Missed dialysis yesterday, HD today. 2. Hyperkalemia: HD today. 3. Bleeding from left FA: Controlled. Seen by Gen. surgery. 4. A.fib: Rate controlled. 4. DM type 2. 5. Chronic pleural effusion. 6. Anemia: Epogen if needed. 7. PAD.
--- NOTE | 2019-01-16 10:25 | Consultation ---
History of Present Illness Consult date: 01/16/19 Reason for consult: wound care Requesting physician: NICOL GALLOWAY Chief complaint: bleeding from wound - History of present illness History of present illness: 63yo M who is well known to our service returns to the hospital due to concerns about bleeding from his right forearm wound. Patient had an incision and drainage of a spontaneous hematoma on January 04. Due to lack of transportation he was unable to come for follow-up. He reports that he has had intermittent b leeding since his discharge last week. He did not call the office. He continues to have pain at the wound site. Denies any fevers, chills, nausea, vomiting. He has not done any regular wound care. Past History Past Medical History: other (atrial fib (rate controlled on Eliquis), anemia, arthritis, COPD, diabetes, DVT, ESRD (on HD T//S), heart failure (systolic), hepatitis (C), hypertension, other (PTSD, chronic hypoxic respiratory failure) Past Surgical History: Other (( neck and back surgery x3, Vessel taken from right thigh and placed in left upper arm d/t blood clot. abd surgery after war related ingury partial "stomach removal'. 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 denies: smoking (Quit 4- 5 years ago), alcohol abuse (Quit 4-5 yrs ago), prescription drug abuse, IV drug use) Family history: other (hypertension (in siblings and mother), other (father had liver cirrhosis)) Medications and Allergies Allergies Allergy/AdvReac Type Severity Reaction Status Date / Time aspirin Allergy Unknown Verified 01/02/19 14:41 pork derived (porcine) Allergy Rash Verified 01/02/19 14:41 venom-honey bee Allergy Anaphylaxis Verified 01/02/19 14:41 [bee venom (honey bee)] Pork/Porcine Containing AdvReac Severe Nausea,VOMI Verified 01/02/19 14:41 Products TING Home Medications Medication Instructions Recorded Confirmed Last Taken Type FLUoxetine HCL [Fluoxetine HCl] 40 mg PO QDAY #30 capsule 09/05/18 01/15/19 01/01/19 Rx Apixaban [Eliquis] 2.5 mg PO Q12HR #60 tablet 12/29/18 01/15/19 01/01/19 Rx AtorvaSTATin [Lipitor] 40 mg PO QHS #30 tablet 12/29/18 01/15/19 01/01/19 Rx Epoetin Prashant 10,000 Unit [Procrit] 10,000 unit SUB-Q KATERYNA PRN #30 vial 12/29/18 01/15/19 12/19/18 Rx Famotidine [Pepcid] 10 mg PO BID #15 tablet 12/29/18 01/15/19 01/01/19 Rx amLODIPine [Norvasc] 10 mg PO DAILY #30 tablet 12/29/18 01/15/19 01/01/19 Rx hydrALAZINE [Apresoline TAB] 50 mg PO BID #60 tablet 12/29/18 01/15/19 01/01/19 Rx traMADol [Ultram 50 MG tab] 50 mg PO Q4HR PRN #8 tablet 12/29/18 01/15/19 01/01/19 Rx diphenhydrAMINE [Benadryl CAP] 50 mg PO Q8HR PRN 01/02/19 01/15/19 01/01/19 History Active Meds: Active Medications Amlodipine Besylate (Norvasc) 10 mg PO DAILY [facility] Last Admin: 01/16/19 09:16 Dose: 10 mg Documented by: Apixaban (Eliquis) 2.5 mg PO Q12HR [facility]; Protocol Last Admin: 01/16/19 09:16 Dose: 2.5 mg Documented by: Atorvastatin Calcium (Lipitor) 40 mg PO QHS [facility] Carvedilol (Coreg) 25 mg PO BID [facility] Dextrose (D50w (25gm) Syringe) 50 ml IV PRN PRN PRN Reason: Hypoglycemia Famotidine (Pepcid) 5 mg PO BID [facility] Last Admin: 01/16/19 09:16 Dose: 5 mg Documented by: Fluoxetine HCl (Prozac) 40 mg PO QDAY [facility] Last Admin: 01/16/19 09:18 Dose: Not Given Documented by: Hydralazine HCl (Apresoline) 50 mg PO BID [facility] Last Admin: 01/16/19 09:17 Dose: 50 mg Documented by: Sodium Chloride (Nacl 0.9%) 100 mls @ 999 mls/hr IV KATERYNA PRN PRN Reason: Hypotension Insulin Human Regular (Humulin R) 0 units SUB-Q [facility]; Protocol Last Admin: 01/16/19 08:36 Dose: Not Given Documented by: Insulin Human Regular (Humulin R) 0 units SUB-Q QHS [facility]; Protocol Morphine Sulfate (Morphine) 2 mg IV Q3H PRN PRN Reason: Pain, Moderate (4-6) Last Admin: 01/16/19 09:12 Dose: 2 mg Documented by: Ondansetron HCl (Zofran) 4 mg IV Q8H PRN PRN Reason: Nausea And Vomiting Review of Systems - Constitutional fatigue, chronic pain, no fever, no chills - Cardiovascular no chest pain, no shortness of breath - Respiratory no cough - Gastrointestinal no abdominal pain, no nausea, no vomiting - Muskuloskeletal right: other (right forearm pain) - Integumentary wounds, color changes - Hematologic/Lymphatic easy bleeding Exam Vital Signs Pulse Resp BP Pulse Ox 109 H 12 169/130 98 01/15/19 20:43 01/15/19 20:43 01/15/19 20:43 01/15/19 20:43 - General physical appearance Positive: no distress, no pain, other (no signs of illness) - Eyes Positive: normal occular movement - Respiratory Positive: normal expansion, normal respiratory effort - Extremities Extremity abnormal: other (the skin at the location of the hematoma has necrosi s. No purulent drainage. No erythema. +tenderenss. no swelling) - Neurologic Neurologic: alert and oriented to time, place and person - Musculoskeletal other (left forearm amputation) - Psychiatric Psychiatric: appropriate mood/affect, cooperative Results - Labs 01/15/19 21:30 01/16/19 02:06 Abnormal lab results 01/15/19 01/15/19 01/16/19 Range/Units 21:30 21:30 02:06 WBC 4.3 L (4.5-11.0) K/mm3 MCV 100 H (84-94) fl MCH 33 H (28-32) pg RDW 17.6 H (13.2-15.2) % [place] % (Auto) 11.4 H (0.0-7.3) % Baso % (Auto) 2.4 H (0.0-1.8) % Potassium 6.1 H* D 5.3 H (3.6-5.0) mmol/L Chloride 97.5 L (98-107) mmol/L Carbon Dioxide 18 L 19 L (22-30) mmol/L BUN 82 H 83 H (9-20) mg/dL Creatinine 10.3 H D 10.3 H (0.8-1.5) mg/dL Glucose 144 H (75-100) mg/dL POC Glucose (70-105) 01/16/19 Range/Units 08:17 WBC (4.5-11.0) K/mm3 MCV (84-94) fl MCH (28-32) pg RDW (13.2-15.2) % [place] % (Auto) (0.0-7.3) % Baso % (Auto) (0.0-1.8) % Potassium (3.6-5.0) mmol/L Chloride (98-107) mmol/L Carbon Dioxide (22-30) mmol/L BUN (9-20) mg/dL Creatinine (0.8-1.5) mg/dL Glucose (75-100) mg/dL POC Glucose 124 H (70-105) Diabetes panel 01/15/19 01/16/19 Range/Units 21:30 02:06 Sodium 138 137 (137-145) mmol/L Potassium 6.1 H* D 5.3 H (3.6-5.0) mmol/L Chloride 99.8 97.5 L (98-107) mmol/L Carbon Dioxide 18 L 19 L (22-30) mmol/L BUN 82 H 83 H (9-20) mg/dL Creatinine 10.3 H D 10.3 H (0.8-1.5) mg/dL Glucose 88 144 H (75-100) mg/dL Calcium 9.2 9.5 (8.4-10.2) mg/dL Calcium panel 01/15/19 01/16/19 Range/Units 21:30 02:06 Calcium 9.2 9.5 (8.4-10.2) mg/dL Pituitary panel 01/15/19 01/16/19 Range/Units 21:30 02:06 Sodium 138 137 (137-145) mmol/L Potassium 6.1 H* D 5.3 H (3.6-5.0) mmol/L Chloride 99.8 97.5 L (98-107) mmol/L Carbon Dioxide 18 L 19 L (22-30) mmol/L BUN 82 H 83 H (9-20) mg/dL Creatinine 10.3 H D 10.3 H (0.8-1.5) mg/dL Glucose 88 144 H (75-100) mg/dL Calcium 9.2 9.5 (8.4-10.2) mg/dL Adrenal panel 01/15/19 01/16/19 Range/Units 21:30 02:06 Sodium 138 137 (137-145) mmol/L Potassium 6.1 H* D 5.3 H (3.6-5.0) mmol/L Chloride 99.8 97.5 L (98-107) mmol/L Carbon Dioxide 18 L 19 L (22-30) mmol/L BUN 82 H 83 H (9-20) mg/dL Creatinine 10.3 H D 10.3 H (0.8-1.5) mg/dL Glucose 88 144 H (75-100) mg/dL Calcium 9.2 9.5 (8.4-10.2) mg/dL Assessment and Plan - Patient Problems (1) Ulcer of upper extremity Current Visit: No Status: Chronic Qualifiers: Non-pressure ulcer stage: limited to breakdown of skin Qualified Code(s): L98.491 - Non-pressure chronic ulcer of skin of other sites limited to breakdown of skin Plan to address problem: Pt stable. No evidence of active bleeding at this time or in the ER per the notes. I wonder if patient is just been having intermittent drainage as opposed to active bleeding. Patient needs basic wound care at this point. I debrided some of the loose necrotic skin. I do not see any signs of active infection. There is no visible vessel that could potentially bleed. New dressings were placed with calcium alginate. Recommend: 1) wound care consult. Patient should be set up for wound clinic. 2) patient may be discharged at any time from my standpoint. 3) patient should have home health for wound care management. Please call with any questions. Time = 30 minutes
[2019-01-16] MEDS ORDERED: NACL 0.9% 100 ML IV PRN (10:30)
--- NOTE | 2019-01-16 14:59 | Progress Note ---
Assessment and Plan Assessment and plan: Atrial fibrillation with rapid ventricular response -Heart rate fairly controlled -Oral Coreg started, will monitor Hyperkalemia -Level expected to continue to improve with dialysis, will monitor Hypertensive emergency on admission -Blood pressure improved -Home antihypertensives resumed, we'll monitor Postsurgical draining wound RT arm -Continue wound care per surgery History of DVT -Continue home oral anticoagulation with Eliquis Chronic combined systolic and diastolic heart failure with EF of 10-15%, moderate pulmonary hypertension and moderate MR and TR -No acute exacerbation -On BB, not on ACEI or ARB due to hyperkalemia ESRD on HD -Nephrology following Anemia of chronic disease -H&H stable Leukopenia -We'll monitor WBC level COPD -No acute exacerbation Chronic HCV infection -For outpatient follow-up PTSD -Stable, not on any med Disposition: For discharge when medically stable, probably in 1-2 days History Interval history: Patient complained of body itching. He denies chest pain or shortness of breath. Hospitalist Physical - Constitutional Vitals: Temp Pulse Resp BP Pulse Ox 97.5 F L 82 18 170/118 96 01/16/19 08:11 01/16/19 10:00 01/16/19 10:00 01/16/19 09:17 01/16/19 10:00 General appearance: Present: no acute distress - EENT Eyes: Present: PERRL, EOM intact ENT: hearing intact, clear oral mucosa - Neck Neck: Present: supple - Respiratory Respiratory effort: normal Respiratory: bilateral: CTA - Cardiovascular Rhythm: regular Heart Sounds: Present: S1 & S2 - Extremities Extremities: No edema Extremity abnormal: other (LT arm amputation) - Abdominal General gastrointestinal: soft, non-tender, normal bowel sounds - Integumentary Integumentary: Present: erythema (draining wound RT arm) - Psychiatric Psychiatric: appropriate mood/affect - Neurologic Neurologic: CNII-XII intact Results - Labs CBC & Chem 7: 01/15/19 21:30 01/16/19 02:06 Labs: Laboratory Last Values WBC 4.3 K/mm3 (4.5-11.0) L 01/15/19 21:30 RBC 3.66 M/mm3 (3.65-5.03) 01/15/19 21:30 Hgb 11.9 gm/dl (11.8-15.2) 01/15/19 21:30 Hct 36.7 % (35.5-45.6) 01/15/19 21:30 MCV 100 fl (84-94) H 01/15/19 21:30 MCH 33 pg (28-32) H 01/15/19 21:30 MCHC 32 % (32-34) 01/15/19 21:30 RDW 17.6 % (13.2-15.2) H 01/15/19 21:30 Plt Count 142 K/mm3 (140-440) 01/15/19 21:30 Lymph % (Auto) 34.4 % (13.4-35.0) 01/15/19 21:30 [place] % (Auto) 11.4 % (0.0-7.3) H 01/15/19 21:30 Eos % (Auto) 3.7 % (0.0-4.3) 01/15/19 21: Baso % (Auto) 2.4 % (0.0-1.8) H 01/15/19 21:30 Lymph # 1.5 K/mm3 (1.2-5.4) 01/15/19 21:30 [place] # 0.5 K/mm3 (0.0-0.8) 01/15/19 21:30 Eos # 0.2 K/mm3 (0.0-0.4) 01/15/19 21:30 Baso # 0.1 K/mm3 (0.0-0.1) 01/15/19 21:30 Seg Neutrophils % 48.1 % (40.0-70.0) 01/15/19 21:30 Seg Neutrophils # 2.1 K/mm3 (1.8-7.7) 01/15/19 21:30 Sodium 137 mmol/L (137-145) 01/16/19 02:06 Potassium 5.3 mmol/L (3.6-5.0) H 01/16/19 02:06 Chloride 97.5 mmol/L (98-107) L 01/16/19 02:06 Carbon Dioxide 19 mmol/L (22-30) L 01/16/19 02:06 26 mmol/L 01/16/19 02:06 BUN 83 mg/dL (9-20) H 01/16/19 02:06 10.3 mg/dL (0.8-1.5) H 01/16/19 02:06 Estimated GFR 6 ml/min 01/16/19 02:06 8 % 01/16/19 02:06 Glucose 144 mg/dL (75-100) H 01/16/19 02:06 POC Glucose 124 (70-105) H 01/16/19 08:17 Calcium 9.5 mg/dL (8.4-10.2) 01/16/19 02:06 Active Medications - Current Medications Current Medications: Generic Name Dose Route Start Last Admin Trade Name Freq PRN Reason Stop Dose Admin Amlodipine Besylate 10 mg 01/16/19 10:00 01/16/19 09:16 Norvasc PO 10 mg DAILY [facility] Administration Apixaban 2.5 mg 01/16/19 10:00 01/16/19 09:16 Eliquis PO 2.5 mg Q12HR [facility] Administration Protocol Atorvastatin Calcium 40 mg 01/16/19 22:00 Lipitor PO QHS [facility] Carvedilol 25 mg 01/16/19 10:30 Coreg PO BID [facility] Dextrose 50 ml 01/16/19 00:00 D50w (25gm) Syringe IV PRN PRN Hypoglycemia Diphenhydramine HCl 25 mg 01/16/19 15:00 Benadryl PO Q6H PRN Itching Famotidine 5 mg 01/16/19 10:00 01/16/19 09:16 Pepcid PO 5 mg BID [facility] Administration Fluoxetine HCl 40 mg 01/16/19 10:00 01/16/19 09:18 Prozac PO Not Given QDAY [facility] Hydralazine HCl 50 mg 01/16/19 10:00 01/16/19 09:17 Apresoline PO 50 mg BID [facility] Administration Sodium Chloride 100 mls @ 999 mls/hr 01/16/19 10:30 Nacl 0.9% IV KATERYNA PRN Hypotension Insulin Human Regular 0 units 01/16/19 07:30 01/16/19 11:35 Humulin R SUB-Q Not Given AC [facility] Protocol Insulin Human Regular 0 units 01/16/19 22:00 Humulin R SUB-Q QHS [facility] Protocol Morphine Sulfate 2 mg 01/15/19 23:57 01/16/19 09:12 Morphine IV 2 mg Q3H PRN Administration Pain, Moderate (4-6) Ondansetron HCl 4 mg 01/15/19 23:58 Zofran IV Q8H PRN Nausea And Vomiting
[2019-01-16] MEDS ORDERED: BENADRYL PO PRN (15:00)
[2019-01-16] MEDS: COREG PO SCH ×2 (15:13→21:18)
[2019-01-16] MEDS ORDERED: NACL 0.9 (PRIMING MACHINE ONLY DIALYSIS) MC ONE (17:43)
[2019-01-16] MEDS ORDERED: COZAAR PO SCH (18:00)
[2019-01-16] MEDS: BENADRYL IV PRN (21:21)
[2019-01-16] MEDS ORDERED: HumuLIN R SUB-Q SCH (22:00)
[2019-01-17] MEDS: MORPHINE IV PRN ×2 (02:22→10:22)
[2019-01-17] MEDS: BENADRYL IV PRN ×2 (04:39→10:24)
[2019-01-17 05:57] LABS: Hematocrit 34.9 % (35.5-45.6); Hemoglobin 11.3 gm/dl (11.8-15.2); Mean Corpuscular HGB Conc 32 % (32-34); Mean Corpuscular Volume 99 fl (84-94); Platelet Count 116 K/mm3 (140-440); Red Blood Count 3.51 M/mm3 (3.65-5.03); Red Cell Distribution Width 17.6 % (13.2-15.2)
[2019-01-17 06:12] LABS: Calcium 9.6 mg/dL (8.4-10.2)
[2019-01-17] MEDS: HumuLIN R SUB-Q SCH ×3 (08:47→17:05)
--- NOTE | 2019-01-17 09:27 | Progress Note ---
Assessment and Plan 1. ESRD: Continue hemodialysis three times a week, TTS schedule. HD today. 2. Hyperkalemia: HD today. 3. Bleeding from R forearm: Controlled. Seen by Gen. surgery. 4. A.fib: Rate controlled. 4. DM type 2. 5. Chronic pleural effusion. 6. Anemia: Epogen if needed. 7. PAD. Subjective Date of service: 01/17/19 Interval history: Patient was seen and examined at the bedside. Objective - Vital Signs Vital signs: Vital Signs - 12hr 01/16/19 01/16/19 01/17/19 22:00 23:36 01:00 Temperature 98.3 F Pulse Rate 86 69 Pulse Rate [ 73 Apical] Pulse Rate [ 73 Right Radial] Respiratory 18 18 Rate Respiratory 18 Rate [Right Arm ] Blood Pressure 116/88 O2 Sat by Pulse 96 99 Oximetry 01/17/19 01/17/19 04:30 07:49 Temperature 98.0 F 98.0 F Pulse Rate 80 Pulse Rate [ Apical] Pulse Rate [ Right Radial] Respiratory 18 18 Rate Respiratory Rate [Right Arm ] Blood Pressure 126/83 116/85 O2 Sat by Pulse 98 Oximetry - General Appearance General appearance: well-developed, appears stated age, other (no distress, R IJ tunnel catheter) EENT: ATNC, PERRL, hearing intact, vision intact Neck: supple Respiratory: Present: Clear to Ascultation Cardiology: S1S2, no murmurs Gastrointestinal: normoactive bowel sounds Integumentary: no rash, warm and dry Neurologic: no focal deficit, no asterixis, alert and oriented x3 Musculoskeletal: other (no edema, L forearm amputation) - Lab 01/17/19 05:12 01/17/19 05:12 Most recent lab results Calcium 9.6 mg/dL (8.4-10.2) 01/17/19 05:12 Medications & Allergies - Medications Allergies/Adverse Reactions: Allergies aspirin Allergy (Verified 01/02/19 14:41) Unknown stomach cramps pork derived (porcine) Allergy (Verified 01/02/19 14:41) Rash venom-honey bee [bee venom (honey bee)] Allergy (Verified 01/02/19 14:41) Anaphylaxis Pork/Porcine Containing Products Adverse Reaction (Severe, Verified 01/02/19 14:41) Nausea,VOMITING Home Medications: Home Medications Medication Instructions Recorded Confirmed Last Taken Type FLUoxetine HCL [Fluoxetine HCl] 40 mg PO QDAY #30 capsule 09/05/18 01/15/19 01/01/19 Rx Apixaban [Eliquis] 2.5 mg PO Q12HR #60 tablet 12/29/18 01/15/19 01/01/19 Rx AtorvaSTATin [Lipitor] 40 mg PO QHS #30 tablet 12/29/18 01/15/19 01/01/19 Rx Epoetin Prashant 10,000 Unit [Procrit] 10,000 unit SUB-Q KATERYNA PRN #30 vial 12/29/18 01/15/19 12/19/18 Rx Famotidine [Pepcid] 10 mg PO BID #15 tablet 12/29/18 01/15/19 01/01/19 Rx amLODIPine [Norvasc] 10 mg PO DAILY #30 tablet 12/29/18 01/15/19 01/01/19 Rx hydrALAZINE [Apresoline TAB] 50 mg PO BID #60 tablet 12/29/18 01/15/19 01/01/19 Rx diphenhydrAMINE [Benadryl CAP] 50 mg PO Q8HR PRN 01/02/19 01/15/19 01/01/19 History Carvedilol [Coreg] 25 mg PO BID #60 tablet 01/17/19 Unknown Rx Gabapentin [Neurontin 250 mg/5 ml] 300 mg PO Q8H PRN #30 bottle 01/21/19 Unknown Rx traMADol [Ultram 50 MG tab] 50 mg PO Q4HR PRN #10 tablet 01/21/19 Unknown Rx Active Medications: Generic Name Dose Route Start Last Admin Trade Name Tricia PRN Reason Stop Dose Admin Amlodipine Besylate 10 mg 01/16/19 10:00 01/16/19 09:16 Norvasc PO 10 mg DAILY BEAN Administration Apixaban 2.5 mg 01/16/19 10:00 01/16/19 21:17 Eliquis PO 2.5 mg Q12HR BEAN Administration Protocol Atorvastatin Calcium 40 mg 01/16/19 22:00 01/16/19 21:17 Lipitor PO 40 mg QHS BEAN Administration Carvedilol 25 mg 01/16/19 10:30 01/16/19 21:18 Coreg PO 25 mg BID BEAN Administration Dextrose 50 ml 01/16/19 00:00 D50w (25gm) Syringe IV PRN PRN Hypoglycemia Diphenhydramine HCl 25 mg 01/16/19 17:23 01/17/19 04:39 Benadryl IV 25 mg Q6H PRN Administration Itching Famotidine 5 mg 01/16/19 10:00 01/16/19 21:17 Pepcid PO 5 mg BID BEAN Administration Fluoxetine HCl 40 mg 01/16/19 10:00 01/16/19 09:18 Prozac PO Not Given QDAY BEAN Hydralazine HCl 50 mg 01/16/19 10:00 01/16/19 21:19 Apresoline PO 50 mg BID BEAN Administration Sodium Chloride 100 mls @ 999 mls/hr 01/16/19 10:30 Nacl 0.9% IV KATERYNA PRN Hypotension Insulin Human Regular 0 units 01/16/19 07:30 01/17/19 08:47 Humulin R SUB-Q Not Given AC [facility] Protocol Insulin Human Regular 0 units 01/16/19 22:00 01/16/19 21:23 Humulin R SUB-Q 1 units QHS BEAN Administration Protocol Morphine Sulfate 2 mg 01/15/19 23:57 01/17/19 02:22 Morphine IV 2 mg Q3H PRN Administration Pain, Moderate (4-6) Ondansetron HCl 4 mg 01/15/19 23:58 Zofran IV Q8H PRN Nausea And Vomiting
[2019-01-17] MEDS: APRESOLINE PO SCH (10:30)
[2019-01-17] MEDS ORDERED: NACL 0.9% 100 ML IV PRN (10:30)
[2019-01-17] MEDS: COREG PO SCH (10:32)
[2019-01-17] MEDS: PEPCID PO SCH (10:32)
[2019-01-17] MEDS: ELIQUIS PO SCH (10:32)
[2019-01-17] MEDS: NORVASC PO SCH (10:32)
[2019-01-17] MEDS: PROzac PO SCH (10:33)
[2019-01-17] MEDS ORDERED: NACL 0.9 (PRIMING MACHINE ONLY DIALYSIS) MC ONE (12:49)
[2019-01-17 14:35] VITALS: BP 150/90
--- NOTE | 2019-01-17 15:08 | Discharge Summary ---
Providers - Providers Date of Admission: 01/15/19 23:51 Date of discharge: 01/17/19 Attending physician: NICOL GALLOWAY 01/16/19 06:00 Consult to Physician [CONS] Routine Comment: Consulting Provider: SERGE CORTÉS Physician Instructions: Reason For Exam: ESRD ON DIALYSIS WITH HYPERKALEMIA Consult to Physician [CONS] Routine Comment: Consulting Provider: VICKY HUERTAS Physician Instructions: Reason For Exam: BLEEDING FROM SITE OF SURGERY ON RIGHT FOREARM 01/16/19 10:35 Consult to Case Management [CONS] Routine Services Needed at Discharge: Home Health Services Other Notified:: PLASTIC MOLDER Additional Physician Instructions: Will also need transportation to wound clinic Consult to Wound/ET Nurse [CONS] Routine Reason For Exam: wound eval and scheduling in wound clinic Primary care physician: ARSLAN PIMENTEL Hospitalization Reason for admission: Atrial fibrillation with RVR, Hyperkalemia, Hypertensive emergency Condition: Fair Pertinent studies: None Procedures: None Hospital course: Final discharge diagnosis: Atrial fibrillation with rapid ventricular response Hyperkalemia Hypertensive emergency Postsurgical draining wound RT arm History of DVT Chronic combined systolic and diastolic heart failure with EF of 10-15%, moderate pulmonary hypertension and moderate MR and TR ESRD on HD Anemia of chronic disease Chronic leukopenia, likely due to CLD COPD Chronic HCV infection PTSD Hospital course: Patient was admitted and placed on rate controlling agent in addition to antihypertensives for blood pressure control. He also received treatment for the hyperkalemia with improvement. Patient was evaluated by the surgeon for his postsurgical draining wound. Wound care was recommended without any further intervention. For his other comorbidities, he was continued on his home medications. In addition, he was continued on his regularly scheduled hemodialysis which was managed by the chemical lab technician. Subsequently, he improved clinically and was then deemed stable for discharge with clinic follow-up. Prior to discharge, home health with wound care was set up by the supportive employment case manager. Disposition: [id number] HOME UNDER HOME [facility] Time spent for discharge: 38 minutes Core Measure Documentation - Palliative Care Palliative Care/ Comfort Measures: Not Applicable - Core Measures Any of the following diagnoses?: none Exam - Constitutional Vitals: Temp Pulse Resp BP Pulse Ox 98.0 F 64 16 150/90 98 01/17/19 14:15 01/17/19 14:15 01/17/19 14:15 01/17/19 14:15 01/17/19 04:30 General appearance: Present: no acute distress - EENT Eyes: Present: PERRL, EOM intact ENT: hearing intact, clear oral mucosa - Neck Neck: Present: supple, normal ROM - Respiratory Respiratory effort: normal Respiratory: bilateral: CTA - Cardiovascular Rhythm: regular Heart Sounds: Present: S1 & S2. Absent: rub, click - Extremities Extremities: No edema - Abdominal General gastrointestinal: Present: soft, non-tender, non-distended, normal bowel sounds Male genitourinary: Present: deferred - Integumentary Integumentary: Present: pale (Dressing over RT arm) - Musculoskeletal Musculoskeletal: gait normal, strength equal bilaterally - Psychiatric Psychiatric: appropriate mood/affect, intact judgment & insight - Neurologic Neurologic: CNII-XII intact, moves all extremities Plan Follow up with: PRIMARY CARE, [Referring] - 3-5 Days Prescriptions: Carvedilol [Coreg] 25 mg PO BID #60 tablet
== END 2019-01-17 19:00 | disposition home health service (06) | DRG 901 ==
LOC: EDBD → ED 20:36 → 4A 23:51
PROVIDERS: ADMIT Internal Medicine; ATTEND Internal Medicine
PROC: 0HBDXZZ Excision of Right Lower Arm Skin, External Approach (ICD-10-PCS; principal; 2019-01-16)
PROC: 5A1D70Z Performance of Urinary Filtration, Intermittent, Less than 6 Hours Per Day (ICD-10-PCS; 2019-01-16)
PROC: 5A1D70Z Performance of Urinary Filtration, Intermittent, Less than 6 Hours Per Day (ICD-10-PCS; 2019-01-17)
DX: L76.82 Other postprocedural complications of skin and subcutaneous tissue (principal); N18.6 End stage renal disease; I13.2 Hypertensive heart and chronic kidney disease with heart failure and with stage 5 chronic kidney disease, or end stage renal disease; I50.42 Chronic combined systolic (congestive) and diastolic (congestive) heart failure; B18.9 Chronic viral hepatitis, unspecified; Y83.8 Other surgical procedures as the cause of abnormal reaction of the patient, or of later complication, without mention of misadventure at the time of the procedure; Y92.098 Other place in other non-institutional residence as the place of occurrence of the external cause; E87.5 Hyperkalemia; I27.20 Pulmonary hypertension, unspecified; I08.1 Rheumatic disorders of both mitral and tricuspid valves; D63.8 Anemia in other chronic diseases classified elsewhere; I48.91 Unspecified atrial fibrillation; I16.1 Hypertensive emergency; D72.819 Decreased white blood cell count, unspecified; D63.1 Anemia in chronic kidney disease; E11.22 Type 2 diabetes mellitus with diabetic chronic kidney disease; L98.491 Non-pressure chronic ulcer of skin of other sites limited to breakdown of skin; J44.9 Chronic obstructive pulmonary disease, unspecified; F17.200 Nicotine dependence, unspecified, uncomplicated; Z88.8 Allergy status to other drugs, medicaments and biological substances; Z91.030 Bee allergy status; Z99.2 Dependence on renal dialysis; Z86.718 Personal history of other venous thrombosis and embolism; Z91.048 Other nonmedicinal substance allergy status; Z82.49 Family history of ischemic heart disease and other diseases of the circulatory system; Z90.49 Acquired absence of other specified parts of digestive tract; Z79.84 Long term (current) use of oral hypoglycemic drugs
CPT/HCPCS: 36415; 80048; 82962; 85025; 85027; 85610; 85730; 86850; 86870; 86900; 86901; 86922; 87116; 93005; 93010; 96365; 96372; 96375; G0378; A9270-GY; J0610; J1200; J1815; J2270; J2405; J3010; J7030

== ENCOUNTER 2019-01-22 16:36 | Observation (INO) | payer MEDICAID ==
[2019-01-22] MEDS ORDERED: MORPHINE ONE (18:36)
[2019-01-22] MEDS ORDERED: ZOFRAN ONE (18:36)
[2019-01-22] MEDS ORDERED: ZOFRAN IV PRN (18:37)
[2019-01-22] MEDS ORDERED: TYLENOL PO PRN (18:37)
--- NOTE | 2019-01-22 18:37 | History and Physical Report ---
History of Present Illness Chief complaint: My arm has pus coming out History of present illness: 63 YO Male with ESRD on HD(T,R,Sa), HCV, Chronic Anemia, HTN, Atrial Fib on Therapeutic Anticoagulation with Eliquis, DVT, COPD, OA, DM, PTSD, Chronic Respiratory Failure presents to ED for evaluation. Pt states that he has experienced redness, pain, swelling, and purulent discharge from his right arm over the past 1 week with progressively worsening symptoms over the past 2-3 days. Pt was seen and evaluated by his home care nurse today and was instructed to seek further care. Pt seen and evaluated in ED and found to have Right Arm Cellulitis, ESRD, Acidosis, as well as SIRS. Pt initiated on IV antibiotic therapy, and admitted to medical floor. Sugery team consulted in ED. Nephrology team consulted in ED. Prior admission on 01/02/19 reviewed. All medication listed at time of admission was reconciled. Past History Past Medical History: atrial fib, anemia, DVT, ESRD, hepatitis, hypertension, other (PTSD) Past Surgical History: bowel surgery, Other (neck and back surgery x3, Vascular surgery,. Left upper extremity amputation below elbow) Social history: . denies: smoking, alcohol abuse, prescription drug ab use Family history: hypertension Medications and Allergies Allergies Allergy/AdvReac Type Severity Reaction Status Date / Time aspirin Allergy Unknown Verified 01/02/19 14:41 pork derived (porcine) Allergy Rash Verified 01/02/19 14:41 venom-honey bee Allergy Anaphylaxis Verified 01/02/19 14:41 [bee venom (honey bee)] Pork/Porcine Containing AdvReac Severe Nausea,VOMI Verified 01/02/19 14:41 Products TING Home Medications Medication Instructions Recorded Confirmed Last Taken Type Apixaban [Eliquis] 2.5 mg PO Q12HR #60 tablet 12/29/18 01/22/19 01/01/19 Rx AtorvaSTATin [Lipitor] 40 mg PO QHS #30 tablet 12/29/18 01/22/19 01/01/19 Rx Famotidine [Pepcid] 10 mg PO BID #15 tablet 12/29/18 01/22/19 01/01/19 Rx amLODIPine [Norvasc] 10 mg PO DAILY #30 tablet 12/29/18 01/22/19 01/01/19 Rx hydrALAZINE [Apresoline TAB] 50 mg PO BID #60 tablet 12/29/18 01/22/19 01/01/19 Rx Carvedilol [Coreg] 25 mg PO BID #60 tablet 01/17/19 01/22/19 Unknown Rx Gabapentin [Neurontin 250 mg/5 ml] 300 mg PO Q8H PRN #30 bottle 01/21/19 01/22/19 Unknown Rx traMADol [Ultram 50 MG tab] 50 mg PO Q4HR PRN #10 tablet 01/21/19 01/22/19 Unknown Rx Oxycodone HCl [oxyCODONE] 10 mg PO Q6H PRN 01/22/19 01/22/19 Unknown History Review of Systems Constitutional: no weight loss, no weight gain, no fever, no chills Ears, nose, mouth and throat: no ear pain, no ear discharge, no tinnitis, no nose pain Cardiovascular: no chest pain, no orthopnea, no palpitations, no rapid/irregular heart beat, no edema Respiratory: no cough, no cough with sputum, no excessive sputum, no hemoptysis, no shortness of breath Gastrointestinal: no nausea, no vomiting, no diarrhea, no constipation, no change in bowel habits Genitourinary Male: no hematuria, no flank pain, no discharge, no urinary frequency, no urinary hesitancy Rectal: no pain, no incontinence, no bleeding Musculoskeletal: no neck pain, no shooting arm pain, no arm numbness/tingling, no low back pain, no shooting leg pain Integumentary: redness, no wounds, no jaundice, no boils, no blisters Psychiatric: no anxiety, no memory loss, no change in sleep habits, no sleep disturbances, no insomnia, no hypersomnia Endocrine: no cold intolerance, no heat intolerance, no polydipsia, no polyuria, no weight change Hematologic/Lymphatic: no easy bruising, no easy bleeding, no lymphadenopathy, no lymphedema Allergic/Immunologic: no urticaria, no persistent infections, no anaphylaxis, no angioedema Exam - Constitutional Vitals: Temp Pulse Resp BP Pulse Ox 97.6 F 89 13 141/106 100 01/22/19 17:55 01/22/19 17:55 01/22/19 17:56 01/22/19 17:55 01/22/19 17:56 General appearance: Present: mild distress - EENT Eyes: Present: PERRL ENT: hearing intact, clear oral mucosa - Neck Neck: Present: supple, normal ROM - Respiratory Respiratory effort: normal Respiratory: bilateral: CTA - Cardiovascular Heart Sounds: Present: S1 & S2. Absent: rub, click - Extremities Extremity abnormal: erythema, tenderness, other (RUE purulent discharge) Peripheral Pulses: within normal limits - Abdominal General gastrointestinal: Present: soft, non-tender, non-distended, normal bowel sounds Male genitourinary: Present: normal - Integumentary Integumentary: Present: clear, warm, dry - Musculoskeletal Musculoskeletal: gait normal, strength equal bilaterally - Psychiatric Psychiatric: appropriate mood/affect, intact judgment & insight - Neurologic Neurologic: CNII-XII intact, moves all extremities Results - Labs CBC & Chem 7: 01/22/19 19:45 01/22/19 19:45 Assessment and Plan - Patient Problems (1) Right arm cellulitis Current Visit: Yes Status: Acute Plan to address problem: Iv antibiotic therapy,Surgery team consulted, CBC, CMP, blood cultures, supportive care, pain control, wound care nurse consulted. (2) A-fib Current Visit: No Status: Acute Qualifiers: Atrial fibrillation type: persistent Qualified Code(s): I48.1 - Persistent atrial fibrillation Plan to address problem: Rate control, continue therapeutic anticoagulation, supportive care, (3) ESRD (end stage renal disease) Current Visit: Yes Status: Acute Plan to address problem: Nephrology consulted, dialysis as per remal team, CBC, BNP, supportive care. (4) Anemia Current Visit: Yes Status: Acute Qualifiers: Chronic kidney disease stage: on chronic dialysis Plan to address problem: Supportive care, no transfusion at this time, supportive care, epogen as per renal team. (5) Atrial fibrillation Current Visit: Yes Status: Acute Qualifiers: Atrial fibrillation type: permanent Qualified Code(s): I48.2 - Chronic atri al fibrillation Plan to address problem: supportive care, rate control, therapeutic anticoagulation, (6) CHF (congestive heart failure) Current Visit: Yes Status: Acute Qualifiers: Heart failure chronicity: acute on chronic Plan to address problem: Strict I/O, daily weight, monitor uop q shift, afterload reduction, blood pressure control, (7) Acidosis Current Visit: Yes Status: Acute Plan to address problem: supportive care, repeat bnp in AM (8) DVT prophylaxis Current Visit: Yes Status: Acute Plan to address problem: SCD to BLE while in bed, supportive care.
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
[2019-01-22] MEDS ORDERED: MORPHINE IV ONE (18:44)
[2019-01-22] MEDS ORDERED: ZOFRAN IV ONE (18:44)
--- NOTE | 2019-01-22 19:02 | XRay Report ---
RIGHT FOREARM 2 VIEWS INDICATION / CLINICAL INFORMATION: wound infection. COMPARISON: None available. FINDINGS: Postop change. Dialysis graft. Advanced degenerative change in the wrist on the radial side. Osteopen ia. No obvious bone destruction or other acute skeletal abnormalities. Signer Name: Lc Cruz MD Signed: 01/22/2019 6:57 PM Workstation Name: [id number]
[2019-01-22] MEDS ORDERED: VANCOMYCIN/NS 1 GM/250 ML 1 GM/250 ML BAG IV ONE (19:09)
[2019-01-22] MEDS ORDERED: VANCOMYCIN PHARMACY TO DOSE IV SCH (20:00)
[2019-01-22 20:10] LABS: Hemoglobin 12.8 gm/dl (11.8-15.2); Lymphocytes # (Auto) 0.6 K/mm3 (1.2-5.4); Mean Corpuscular HGB Conc 33 % (32-34); Mean Corpuscular Volume 101 fl (84-94); Platelet Count 83 K/mm3 (140-440); Red Blood Count 3.86 M/mm3 (3.65-5.03); Red Cell Distribution Width 17.7 % (13.2-15.2)
[2019-01-22 20:11] LABS: Eosinophils % (Auto) 0.8 % (0.0-4.3); Monocytes # (Auto) 0.2 K/mm3 (0.0-0.8); Monocytes % (Auto) 6.2 % (0.0-7.3)
[2019-01-22 20:34] LABS: Calcium 9.3 mg/dL (8.4-10.2)
[2019-01-22] MEDS ORDERED: NORVASC PO ONE (23:00)
[2019-01-22] MEDS: SODIUM CHLORIDE FLUSH SYRINGE 10 ML IV SCH (23:03)
[2019-01-22] MEDS: SODIUM CHLORIDE FLUSH SYRINGE 10 ML IV PRN (23:21)
[2019-01-22] MEDS: MORPHINE IV PRN (23:21)
[2019-01-23] MEDS: MORPHINE IV PRN ×4 (02:49→14:43)
[2019-01-23] MEDS: SODIUM CHLORIDE FLUSH SYRINGE 10 ML IV PRN (05:34)
[2019-01-23] MEDS ORDERED: APRESOLINE IV PRN (05:44)
[2019-01-23] MEDS ORDERED: ULTRAM PO PRN (07:16)
[2019-01-23] MEDS: NORVASC PO SCH ×2 (08:27→10:23)
[2019-01-23] MEDS: PEPCID PO SCH ×3 (08:27→22:05)
[2019-01-23] MEDS: COREG PO SCH ×3 (08:27→22:06)
[2019-01-23] MEDS: APRESOLINE PO SCH ×3 (08:27→22:29)
--- NOTE | 2019-01-23 10:16 | Consultation ---
History of Present Illness Consult date: 01/23/19 Reason for consult: wound care Requesting physician: DESTINEE STONER Chief complaint: infected wound - History of present illness History of present illness: 71yo M well-known to our service whom we have seen in the past for a spontaneous hematoma in the right forearm that required incision and drainage returns to the hospital with complaints of pain and purulent drainage from the right forearm wound. General surgery was asked to consult. Patient reports that his appetite is poor but unchanged. Denies any fevers. Occasionally has chills. He was advised by the dialysis nurse to come to the ER. Patient reports the bleeding has essentially stopped that we saw him for during the last admission. Patient notes a lot of drainage on the most recent dressing. He has not come to the office for follow-up or to the wound care center. Past History Past Medical History: atrial fib, anemia, DVT, ESRD, hepatitis, hypertension, other (PTSD) Past Surgical History: bowel surgery, Other (neck and back surgery x3, Vascular surgery,. Left upper extremity amputation below elbow) Social history: . denies: smoking, alcohol abuse, prescription drug abuse Family history: hypertension Medications and Allergies Allergies Allergy/AdvReac Type Severity Reaction Status Date / Time aspirin Allergy Unknown Verified 01/02/19 14:41 pork derived (porcine) Allergy Rash Verified 01/02/19 14:41 venom-honey bee Allergy Anaphylaxis Verified 01/02/19 14:41 [bee venom (honey bee)] Pork/Porcine Containing AdvReac Severe Nausea,VOMI Verified 01/02/19 14:41 Products TING Home Medications Medication Instructions Recorded Confirmed Last Taken Type Apixaban [Eliquis] 2.5 mg PO Q12HR #60 tablet 12/29/18 01/22/19 01/01/19 Rx AtorvaSTATin [Lipitor] 40 mg PO QHS #30 tablet 12/29/18 01/22/19 01/01/19 Rx Famotidine [Pepcid] 10 mg PO BID #15 tablet 12/29/18 01/22/19 01/01/19 Rx amLODIPine [Norvasc] 10 mg PO DAILY #30 tablet 12/29/18 01/22/19 01/01/19 Rx hydrALAZINE [Apresoline TAB] 50 mg PO BID #60 tablet 12/29/18 01/22/19 01/01/19 Rx Carvedilol [Coreg] 25 mg PO BID #60 tablet 01/17/19 01/22/19 Unknown Rx Gabapentin [Neurontin 250 mg/5 ml] 300 mg PO Q8H PRN #30 bottle 01/21/19 01/22/19 Unknown Rx traMADol [Ultram 50 MG tab] 50 mg PO Q4HR PRN #10 tablet 01/21/19 01/22/19 Unknown Rx Oxycodone HCl [oxyCODONE] 10 mg PO Q6H PRN 01/22/19 01/22/19 Unknown History Active Meds: Active Medications Acetaminophen (Tylenol) 650 mg PO Q4H PRN PRN Reason: Pain MILD(1-3)/Fever >100.5/DOUGLAS Amlodipine Besylate (Norvasc) 10 mg PO DAILY [facility] Last Admin: 01/23/19 08:27 Dose: 10 mg Documented by: Apixaban (Eliquis) 2.5 mg PO Q12HR [facility]; Protocol Atorvastatin Calcium (Lipitor) 40 mg PO QHS [facility] Carvedilol (Coreg) 25 mg PO BID [facility] Last Admin: 01/23/19 08:27 Dose: 25 mg Documented by: Famotidine (Pepcid) 10 mg PO BID [facility] Last Admin: 01/23/19 08:27 Dose: 10 mg Documented by: Gabapentin (Neurontin) 300 mg PO Q8H PRN PRN Reason: NERVE Pain , Severe (7-10) Hydralazine HCl (Apresoline) 5 mg IV Q6HR PRN PRN Reason: Hypertension Last Admin: 01/23/19 06:08 Dose: 5 mg Documented by: Hydralazine HCl (Apresoline) 50 mg PO BID [facility] Last Admin: 01/23/19 08:27 Dose: 50 mg Documented by: Morphine Sulfate (Morphine) 2 mg IV Q3H PRN PRN Reason: Pain, Moderate (4-6) Last Admin: 01/23/19 09:09 Dose: 2 mg Documented by: Ondansetron HCl (Zofran) 4 mg IV Q8H PRN PRN Reason: Nausea And Vomiting Oxycodone/Acetaminophen (Percocet 5/325) 1 tab PO Q6H PRN PRN Reason: Pain, Moderate (4-6) Sodium Chloride (Sodium Chloride Flush Syringe 10 Ml) 10 ml IV BID [facility] Last Admin: 01/22/19 23:03 Dose: 10 ml Documented by: Sodium Chloride (Sodium Chloride Flush Syringe 10 Ml) 10 ml IV PRN PRN PRN Reason: LINE FLUSH Last Admin: 01/23/19 05:34 Dose: 10 ml Documented by: Tramadol HCl (Ultram) 50 mg PO Q4HR PRN PRN Reason: BREAKTHRU PAIN Review of Systems - Constitutional chills, chronic pain, no fever - Cardiovascular no chest pain, no shortness of breath - Gastrointestinal nausea, other (poor appetite), no abdominal pain, no vomiting - Muskuloskeletal right: other (forearm pain at wound site) - Integumentary wounds - Hematologic/Lymphatic easy bruising Exam Vital Signs Resp 14 01/22/19 17:05 - General physical appearance Positive: no distress, no pain, cathetic, other (does not appear ill) - Respiratory Positive: normal expansion, normal respiratory effort - Extremities Extremity abnormal: ulceration (Pt has an open wound on the right forearm that extends down to the muscle/fascia level. Muscle is completely viable. The surrounding cutaneous tissues discolored from his previous hematoma. There is some small residual blood clots seen. There is no purulent drainage. There is no erythema. No evidence of infection.), other (left arm amputation noted) - Integumentary no rash - Neurologic Neurologic: alert and oriented to time, place and person - Psychiatric Psychiatric: appropriate mood/affect, intact judgment & insight, cooperative Results - Labs 01/22/19 19:45 01/22/19 19:45 Abnormal lab results 01/22/19 01/22/19 Range/Units 19:45 19:45 WBC 3.2 L (4.5-11.0) K/mm3 MCV 101 H (84-94) fl MCH 33 H (28-32) pg RDW 17.7 H (13.2-15.2) % Plt Count 83 L (140-440) K/mm3 Lymph # 0.6 L (1.2-5.4) K/mm3 Seg Neutrophils % 75.0 H (40.0-70.0) % Sodium 135 L (137-145) mmol/L Carbon Dioxide 17 L (22-30) mmol/L BUN 27 H (9-20) mg/dL Creatinine 4.4 H (0.8-1.5) mg/dL Glucose 122 H (75-100) mg/dL Diabetes panel 01/22/19 Range/Units 19:45 Sodium 135 L (137-145) mmol/L Potassium 4.4 (3.6-5.0) mmol/L Chloride 100.3 (98-107) mmol/L Carbon Dioxide 17 L (22-30) mmol/L BUN 27 H (9-20) mg/dL Creatinine 4.4 H (0.8-1.5) mg/dL Glucose 122 H (75-100) mg/dL Calcium 9.3 (8.4-10.2) mg/dL Calcium panel 01/22/19 Range/Units 19:45 Calcium 9.3 (8.4-10.2) mg/dL Pituitary panel 01/22/19 Range/Units 19:45 Sodium 135 L (137-145) mmol/L Potassium 4.4 (3.6-5.0) mmol/L Chloride 100.3 (98-107) mmol/L Carbon Dioxide 17 L (22-30) mmol/L BUN 27 H (9-20) mg/dL Creatinine 4.4 H (0.8-1.5) mg/dL Glucose 122 H (75-100) mg/dL Calcium 9.3 (8.4-10.2) mg/dL Adrenal panel 01/22/19 Range/Units 19:45 Sodium 135 L (137-145) mmol/L Potassium 4.4 (3.6-5.0) mmol/L Chloride 100.3 (98-107) mmol/L Carbon Dioxide 17 L (22-30) mmol/L BUN 27 H (9-20) mg/dL Creatinine 4.4 H (0.8-1.5) mg/dL Glucose 122 H (75-100) mg/dL Calcium 9.3 (8.4-10.2) mg/dL - Imaging Additional studies: right forearm x-ray report reviewed Assessment and Plan - Patient Problems (1) Ulcer of upper extremity Current Visit: No Status: Chronic Qualifiers: Non-pressure ulcer stage: with fat layer exposed Qualified Code(s): L98.492 - Non-pressure chronic ulcer of skin of other sites with fat layer exposed Plan to address problem: Pt stable. The previously necrotic skin that was noted on last admission has come off. The underlying muscular/fascial tissue is completely viable. The surrounding subcutaneous tissue is discolored from the original spontaneous bleed, but viable. The surrounding skin is normal. There is no evidence of cellulitis. There is no evidence of infection. Patient needs regular wound care. He has not come to the office or the Wound Care Ctr. for follow-up care. He has findings on exam or by labs to support the diagnosis of infection. I have written orders for dressing changes. The main thing the patient needs is to be set up in the wound care center. Patient may be discharged at any time from my standpoint. Please call with questions. Time=20min
--- NOTE | 2019-01-23 10:51 | Consultation ---
History of Present Illness - Reason for Consult end stage renal disease - History of Present Illness Pleasant 71 y/o male with PMHx of ESRD in the setting of DM, HTN, with h/o chronic A.fib, CAD, CHF, and PVD, presented to the ED secondary to worsening drainage/erythema from chronic RUE wound. General Surgery note reviewed. Nephrology consulted secondary to h/o ESRD. Last HD session on Monday, prior to him coming to the hospital. He is on a TTS schedule. Past History Past Medical History: atrial fib, anemia, DVT, ESRD, hepatitis, hypertension, other (PTSD) Past Surgical History: bowel surgery, Other (neck and back surgery x3, Vascular surgery,. Left upper extremity amputation below elbow) Social history: . denies: smoking, alcohol abuse, prescription drug abuse Family history: hypertension Medications and Allergies Allergies Allergy/AdvReac Type Severity Reaction Status Date / Time aspirin Allergy Unknown Verified 01/02/19 14:41 pork derived (porcine) Allergy Rash Verified 01/02/19 14:41 venom-honey bee Allergy Anaphylaxis Verified 01/02/19 14:41 [bee venom (honey bee)] Pork/Porcine Containing AdvReac Severe Nausea,VOMI Verified 01/02/19 14:41 Products TING Home Medications Medication Instructions Recorded Confirmed Last Taken Type Apixaban [Eliquis] 2.5 mg PO Q12HR #60 tablet 12/29/18 01/22/19 01/01/19 Rx AtorvaSTATin [Lipitor] 40 mg PO QHS #30 tablet 12/29/18 01/22/19 01/01/19 Rx Famotidine [Pepcid] 10 mg PO BID #15 tablet 12/29/18 01/22/19 01/01/19 Rx amLODIPine [Norvasc] 10 mg PO DAILY #30 tablet 12/29/18 01/22/19 01/01/19 Rx hydrALAZINE [Apresoline TAB] 50 mg PO BID #60 tablet 12/29/18 01/22/19 01/01/19 Rx Carvedilol [Coreg] 25 mg PO BID #60 tablet 01/17/19 01/22/19 Unknown Rx Gabapentin [Neurontin 250 mg/5 ml] 300 mg PO Q8H PRN #30 bottle 01/21/19 01/22/19 Unknown Rx traMADol [Ultram 50 MG tab] 50 mg PO Q4HR PRN #10 tablet 01/21/19 01/22/19 Unknown Rx Oxycodone HCl [oxyCODONE] 10 mg PO Q6H PRN 01/22/19 01/22/19 Unknown History Active Meds: Active Medications Acetaminophen (Tylenol) 650 mg PO Q4H PRN PRN Reason: Pain MILD(1-3)/Fever >100.5/DOUGLAS Amlodipine Besylate (Norvasc) 10 mg PO DAILY [facility] Last Admin: 01/23/19 10:23 Dose: Not Given Documented by: Apixaban (Eliquis) 2.5 mg PO Q12HR [facility]; Protocol Atorvastatin Calcium (Lipitor) 40 mg PO QHS [facility] Carvedilol (Coreg) 25 mg PO BID [facility] Last Admin: 01/23/19 10:23 Dose: Not Given Documented by: Famotidine (Pepcid) 10 mg PO BID [facility] Last Admin: 01/23/19 10:23 Dose: Not Given Documented by: Gabapentin (Neurontin) 300 mg PO Q8H PRN PRN Reason: NERVE Pain , Severe (7-10) Hydralazine HCl (Apresoline) 5 mg IV Q6HR PRN PRN Reason: Hypertension Last Admin: 01/23/19 06:08 Dose: 5 mg Documented by: Hydralazine HCl (Apresoline) 50 mg PO BID [facility] Last Admin: 01/23/19 10:22 Dose: Not Given Documented by: Morphine Sulfate (Morphine) 2 mg IV Q3H PRN PRN Reason: Pain, Moderate (4-6) Last Admin: 01/23/19 09:09 Dose: 2 mg Documented by: Ondansetron HCl (Zofran) 4 mg IV Q8H PRN PRN Reason: Nausea And Vomiting Oxycodone/Acetaminophen (Percocet 5/325) 1 tab PO Q6H PRN PRN Reason: Pain, Moderate (4-6) Sodium Chloride (Sodium Chloride Flush Syringe 10 Ml) 10 ml IV BID [facility] Last Admin: 01/22/19 23:03 Dose: 10 ml Documented by: Sodium Chloride (Sodium Chloride Flush Syringe 10 Ml) 10 ml IV PRN PRN PRN Reason: LINE FLUSH Last Admin: 01/23/19 05:34 Dose: 10 ml Documented by: Tramadol HCl (Ultram) 50 mg PO Q4HR PRN PRN Reason: BREAKTHRU PAIN Review of Systems All systems: negative Constitutional: fatigue, weakness Integumentary: rash, wounds Exam - Vital Signs Vital signs: Vital Signs Resp 14 01/22/19 17:05 - General Appearance General appearance: appears stated age, cachectic, chronically ill, frail EENT: ATNC, PERRL Neck: Present: neck supple, trachea midline Respiratory: Clear to Ascultation, Normal Exam Heart: regular, S1S2 Gastrointestinal: Present: normal, normoactive bowel sounds Integumentary: warm and dry, ulcer Neurologic: no focal deficit, CN 3-12 intact Psychiatric: mood/affect appropriate, cooperative Results - Lab Results 01/22/19 19:45 01/22/19 19:45 Most recent lab results Calcium 9.3 mg/dL (8.4-10.2) 01/22/19 19:45 Assessment and Plan - Patient Problems (1) ESRD (end stage renal disease) Current Visit: Yes Status: Chronic Plan to address problem: maintain patient on inpatient TTS schedule. (2) Right arm cellulitis Current Visit: Yes Status: Acute Plan to address problem: Management per primary team and general surgery. Please ensure antibiotics are dosed for his diminished renal function. (3) Hypertensive chronic kidney disease with stage 5 chronic kidney disease or end stage renal disease Current Visit: No Status: Chronic Plan to address problem: Continue on current regimen and closely monitor. (4) IDDM (insulin dependent diabetes mellitus) Current Visit: No Status: Chronic Plan to address problem: DM management per primary attending. (5) Anemia in CKD (chronic kidney disease) Current Visit: No Status: Acute Qualifiers: Chronic kidney disease stage: on chronic dialysis Qualified Code(s): N18.6 - End stage renal disease; D63.1 - Anemia in chronic kidney disease; Z99.2 - Dependence on renal dialysis Plan to address problem: EPO with HD treatment.
[2019-01-23] MEDS: ELIQUIS PO SCH ×2 (11:21→22:32)
[2019-01-23] MEDS: PERCOCET 5/325 PO PRN ×2 (12:53→17:45)
[2019-01-23] MEDS: NEURONTIN PO PRN ×2 (12:53→18:34)
--- NOTE | 2019-01-23 14:20 | Discharge Summary ---
Providers - Providers Date of Admission: 01/22/19 18:37 Attending physician: ALVARO GUSMAN MD 01/22/19 19:08 Consult to Physician [CONS] Routine Comment: Consulting Provider: MADELEINE RIOS Physician Instructions: Reason For Exam: left arm cellulitis 01/22/19 19:09 Consult to Physician [CONS] Routine Comment: Consulting Provider: PRASHANT VANESSA Physician Instructions: Reason For Exam: esrd 01/22/19 22:35 Consult to Wound/ET Nurse [CONS] Routine Reason For Exam: wound eval 01/22/19 23:02 Consult to Dietitian/Nutrition [CONS] Routine Physician Instructions: Reason For Exam: Reason for Consult: Pt needs oral supplement Primary care physician: HUGO FELIZ Hospitalization Reason for admission: UPPER EXT CELLULITS Condition: Stable Hospital course: 63 YO Male with ESRD on HD(T,R,Sa), HCV, Chronic Anemia, HTN, Atrial Fib on Therapeutic Anticoagulation with Eliquis, DVT, COPD, OA, DM, PTSD, Chronic Respiratory Failure presents to ED for evaluation. Pt states that he has experienced redness, pain, swelling, and purulent discharge from his right arm over the past 1 week with progressively worsening symptoms over the past 2-3 days. Pt was seen and evaluated by his home care nurse today and was instructed to seek further care. Pt seen and evaluated in ED and found to have Right Arm Cellulitis, ESRD, Acidosis, as well as SIRS. Pt initiated on IV antibiotic therapy, and admitted to medical floor. Sugery team consulted in ED. Nephrology team consulted in ED. Prior admission on 01/02/19 reviewed. Patient was seen by Surgery and and with recommendation as noted below "Pt stable. The previously necrotic skin that was noted on last admission has come off. The underlying muscular/fascial tissue is completely viable. The surrounding subcutaneous tissue is discolored from the original spontaneous bleed, but viable. The surrounding skin is normal. There is no evidence of cellulitis. There is no evidence of infection. Patient needs regular wound care. He has not come to the office or the Wound Care Ctr. for follow-up care. He has findings on exam or by labs to support the diagnosis of infection. I have written orders for dressing changes. The main thing the patient needs is to be set up in the wound care center. Patient may be discharged at any time from my standpoint. Please call with questions.' Patient continued with dialysis in house under the direction of nephrology. Plan was discussed with the patient and placement was sort due to his clincal condition including left upper ext below the elbow amputation (1) Ulcer of upper extremity Current Visit: No Status: Chronic Qualifiers: Non-pressure ulcer stage: with fat layer exposed Qualified Code(s): L98.492 - Non-pressure chronic ulcer of skin of other sites with fat layer exposed Plan to address problem: (2) A-fib Current Visit: No Status: Acute Qualifiers: Atrial fibrillation type: persistent Qualified Code(s): I48.1 - Persistent atrial fibrillation Plan to address problem: (3) ESRD (end stage renal disease) Current Visit: Yes Status: Acute Plan to address problem: (4) Anemia Current Visit: Yes Status: Acute Qualifiers: Chronic kidney disease stage: on chronic dialysis Plan to address problem: Supportive care, no transfusion at this time, supportive care, epogen as per renal team. (5) Atrial fibrillation Current Visit: Yes Status: Acute Qualifiers: Atrial fibrillation type: permanent Qualified Code(s): I48.2 - Chronic atrial fibrillation Plan to address problem: (6) CHF (congestive heart failure) Current Visit: Yes Status: Acute Qualifiers: Heart failure chronicity: acute on chronic Plan to address problem: , (7) Acidosis Current Visit: Yes Status: Acute Plan to address problem: supportive care, repeat bnp in AM Disposition: DC/[place]-03 [facility] Time spent for discharge: 35 MINS Core Measure Documentation - Palliative Care Palliative Care/ Comfort Measures: Not Applicable - Core Measures Any of the following diagnoses?: none Exam - Physical Exam Narrative exam: General appearance: Present: no distress testing comfortable - EENT Eyes: Present: PERRL ENT: hearing intact, clear oral mucosa - Neck Neck: Present: supple, normal ROM - Respiratory Respiratory effort: normal Respiratory: bilateral: CTA - Cardiovascular Heart Sounds: Present: S1 & S2. Absent: rub, click - Extremities Extremity abnormal: no warmth, dressing in place, no drainage (pt states, dressing just done, dont want to re-open it_ see Surgical documentation of wound Peripheral Pulses: within normal limits - Abdominal General gastrointestinal: Present: soft, non-tender, non-distended, normal bowel sounds Male genitourinary: Present: normal - Integumentary Integumentary: Present: clear, warm, dry - Musculoskeletal Musculoskeletal: gait normal, strength equal bilaterally - Psychiatric Psychiatric: appropriate mood/affect, intact judgment & insight - Neurologic Neurologic: CNII-XII intact, moves all extremities - Constitutional Vitals: Temp Pulse Resp BP Pulse Ox 97.8 F 79 18 110/67 98 01/23/19 11:55 01/23/19 11:55 01/23/19 11:55 01/23/19 11:55 01/23/19 11:55 Plan Activity: advance as tolerated, fall precautions Diet: renal Wound: per your surgeon's advice, per wound nurse instructions Special Instructions: record daily BP diary, record blood sugar diary Follow up with: HUGO FELIZ MD [Primary Care Provider] - 7 Days FERN ARIAS DO [Staff Physician] - 7 Days VICKY HUERTAS MD [Staff Physician] - 7 Days Prescriptions: Oxycodone HCl [oxyCODONE] 10 mg PO Q6H PRN #10 tablet PRN Reason: Pain
[2019-01-23] MEDS: SODIUM CHLORIDE FLUSH SYRINGE 10 ML IV SCH ×2 (14:46→22:07)
[2019-01-24] MEDS: PERCOCET 5/325 PO PRN (06:35)
[2019-01-24] MEDS ORDERED: NACL 0.9% 100 ML IV PRN (08:51)
[2019-01-24] MEDS: COREG PO SCH (09:03)
[2019-01-24] MEDS: APRESOLINE PO SCH (09:03)
[2019-01-24] MEDS: ELIQUIS PO SCH (09:03)
[2019-01-24] MEDS: SODIUM CHLORIDE FLUSH SYRINGE 10 ML IV SCH (09:04)
[2019-01-24] MEDS: NORVASC PO SCH (09:04)
[2019-01-24] MEDS ORDERED: BENADRYL PO PRN (12:16)
[2019-01-24] MEDS: PEPCID PO SCH (14:38)
[2019-01-24] MEDS ORDERED: NACL 0.9 (PRIMING MACHINE ONLY DIALYSIS) MC ONE (15:00)
[2019-01-24] MEDS ORDERED: IMODIUM PO PRN (15:46)
--- NOTE | 2019-01-24 15:53 | Discharge Summary ---
Providers - Providers Date of Admission: 01/22/19 18:37 Attending physician: ALVARO GUSMAN MD 01/22/19 19:08 Consult to Physician [CONS] Routine Comment: Consulting Provider: MADELEINE RIOS Physician Instructions: Reason For Exam: left arm cellulitis 01/22/19 19:09 Consult to Physician [CONS] Routine Comment: Consulting Provider: PRASHANT VANESSA Physician Instructions: Reason For Exam: esrd 01/22/19 22:35 Consult to Wound/ET Nurse [CONS] Routine Reason For Exam: wound eval 01/22/19 23:02 Consult to Dietitian/Nutrition [CONS] Routine Physician Instructions: Reason For Exam: Reason for Consult: Pt needs oral supplement Primary care physician: HUGO FELIZ Hospitalization Reason for admission: upper ext infection Condition: Stable Hospital course: 63 YO Male with ESRD on HD(T,R,Sa), HCV, Chronic Anemia, HTN, Atrial Fib on Therapeutic Anticoagulation with Eliquis, DVT, COPD, OA, DM, PTSD, Chronic Respiratory Failure presents to ED for evaluation. Pt states that he has experienced redness, pain, swelling, and purulent discharge from his right arm over the past 1 week with progressively worsening symptoms over the past 2-3 days. Pt was seen and evaluated by his home care nurse today and was instructed to seek further care. Pt seen and evaluated in ED and found to have Right Arm Cellulitis, ESRD, Acidosis, as well as SIRS. Pt initiated on IV antibiotic therapy, and admitted to medical floor. Sugery team consulted in ED. Nephrology team consulted in ED. Prior admission on 01/02/19 reviewed. Patient was seen by Surgery and and with recommendation as noted below "Pt stable. The previously necrotic skin that was noted on last admission has come off. The underlying muscular/fascial tissue is completely viable. The surrounding subcutaneous tissue is discolored from the original spontaneous bleed, but viable. The surrounding skin is normal. There is no evidence of cellulitis. There is no evidence of infection. Patient needs regular wound care. He has not come to the office or the [facility] for follow-up care. He has findings on exam or by labs to support the diagnosis of infection. I have written orders for dressing changes. The main thing the patient needs is to be set up in the wound care center. Patient may be discharged at any time from my standpoint. Please call with questions.' Patient continued with dialysis in house under the direction of nephrology. Plan was discussed with the patient and placement was sort due to his clincal condition including left upper ext below the elbow amputation. Discharge did not happen due to lack of equipment from the transportation company. He is re-evaluated today and is resting comfortable (1) Ulcer of upper extremity Current Visit: No Status: Chronic Qualifiers: Non-pressure ulcer stage: with fat layer exposed Qualified Code(s): L98.492 - Non-pressure chronic ulcer of skin of other sites with fat layer exposed Plan to address problem: (2) A-fib Current Visit: No Status: Acute Qualifiers: Atrial fibrillation type: persistent Qualified Code(s): I48.1 - Persistent atrial fibrillation Plan to address problem: (3) ESRD (end stage renal disease) Current Visit: Yes Status: Acute Plan to address problem: (4) Anemia Current Visit: Yes Status: Acute Qualifiers: Chronic kidney disease stage: on chronic dialysis Plan to address problem: Supportive care, no transfusion at this time, supportive care, epogen as per renal team. (5) Atrial fibrillation Current Visit: Yes Status: Acute Qualifiers: Atrial fibrillation type: permanent Qualified Code(s): I48.2 - Chronic atrial fibrillation Plan to address problem: (6) CHF (congestive heart failure) Current Visit: Yes Status: Acute Qualifiers: Heart failure chronicity: acute on chronic Plan to address problem: , (7) Acidosis Current Visit: Yes Status: Acute Plan to address problem: supportive care, repeat bnp in AM [facility] Time spent for discharge: 35 mins Core Measure Documentation - Palliative Care Palliative Care/ Comfort Measures: Not Applicable - Core Measures Any of the following diagnoses?: none Exam - Physical Exam Narrative exam: General appearance: Present: no distress testing comfortable - EENT Eyes: Present: PERRL ENT: hearing intact, clear oral mucosa - Neck Neck: Present: supple, normal ROM - Respiratory Respiratory effort: normal Respiratory: bilateral: CTA - Cardiovascular Heart Sounds: Present: S1 & S2. Absent: rub, click - Extremities Extremity abnormal: no warmth, dressing in place, no drainage (pt states, dressing just done, dont want to re-open it_ see Surgical documentation of wound Peripheral Pulses: within normal limits - Abdominal General gastrointestinal: Present: soft, non-tender, non-distended, normal bowel sounds Male genitourinary: Present: normal - Integumentary Integumentary: Present: clear, warm, dry - Musculoskeletal Musculoskeletal: gait normal, strength equal bilaterally - Psychiatric Psychiatric: appropriate mood/affect, intact judgment & insight - Neurologic Neurologic: CNII-XII intact, moves all extremities - Constitutional Vitals: Temp Pulse Resp BP Pulse Ox 98.3 F 51 L 18 107/66 98 01/24/19 09:40 01/24/19 12:15 01/24/19 09:40 01/24/19 12:15 01/24/19 05:51 Plan Activity: advance as tolerated, fall precautions Diet: low salt Special Instructions: record daily BP diary Follow up with: FERN ARIAS DO [Staff Physician] - 7 Days HUGO FELIZ MD [Primary Care Provider] - 7 Days VICKY HUERTAS MD [Staff Physician] - 7 Days Prescriptions: Oxycodone HCl [oxyCODONE] 10 mg PO Q6H PRN #10 tablet PRN Reason: Pain
[2019-01-24 16:58] VITALS: BP 118/83
== END 2019-01-24 18:05 ==
LOC: ED 16:36 → INTOOBSV 18:37 → EDBD 18:37 → 3A 18:37
PROVIDERS: ADMIT Internal Medicine; ATTEND Internal Medicine
DX: L03.113 Cellulitis of right upper limb (principal); R65.10 Systemic inflammatory response syndrome (SIRS) of non-infectious origin without acute organ dysfunction; I13.2 Hypertensive heart and chronic kidney disease with heart failure and with stage 5 chronic kidney disease, or end stage renal disease; I50.9 Heart failure, unspecified; N18.6 End stage renal disease; D64.9 Anemia, unspecified; I48.91 Unspecified atrial fibrillation; E87.2 Acidosis
CPT/HCPCS: 36415; 73090; 80048; 82140; 82962; 85025; 87040; 87116; 96365; 96375; 96376; 99285; A9270; G0257; G0378; J0360; J1100; J2270; J2405; J3370; J7030; Q0162

== ENCOUNTER 2019-01-29 22:28 | Inpatient (IN) | payer MEDICAID ==
[2019-01-30] MEDS ORDERED: PLAVIX PO ONE (00:02)
[2019-01-30] MEDS ORDERED: NORMODYNE IV ONE (00:03)
--- NOTE | 2019-01-30 00:05 | Emergency Department Report ---
ED Chest Pain HPI - General Chief Complaint: Chest Pain Stated Complaint: CHEST/NECK PAIN Time Seen by Provider: 01/29/19 23:49 Source: patient Mode of arrival: Ambulatory Limitations: No Limitations - History of Present Illness Initial Comments: Patient ESRD on HD. Reports HD TTS. Reports he completed a full session of HD today. Reports left sided chest pain after HD radiating to his left neck. Complaint: chest pain -: Gradual, hour(s) Onset: during rest Pain Location: left chest Pain Radiation: neck (left side) Severity: mild Severity scale (0 -10): 3 Quality: aching, heaviness Consistency: intermittent Improves With: nothing Worsens With: nothing re: denies: nausea, vomting, diaphoresis, dyspnea, sense of impending doom Other Symptoms: palpitations (hx afib on eliquis). denies: cough, fever, syncope, rash, acid taste in mouth, leg swelling, burping - Related Data Home Medications Medication Instructions Recorded Confirmed Last Taken Gabapentin [Neurontin] 300 mg PO Q12H PRN 01/30/19 01/30/19 Unknown diphenhydrAMINE [Benadryl CAP] 50 mg PO Q3D PRN 01/30/19 01/30/19 Unknown Previous Rx's Medication Instructions Recorded Last Taken Type Apixaban [Eliquis] 2.5 mg PO Q12HR #60 tablet 12/29/18 01/01/19 Rx AtorvaSTATin [Lipitor] 40 mg PO QHS #30 tablet 12/29/18 01/01/19 Rx Famotidine [Pepcid] 10 mg PO BID #15 tablet 12/29/18 01/01/19 Rx amLODIPine [Norvasc] 10 mg PO DAILY #30 tablet 12/29/18 01/01/19 Rx hydrALAZINE [Apresoline TAB] 50 mg PO BID #60 tablet 12/29/18 01/01/19 Rx Carvedilol [Coreg] 25 mg PO BID #60 tablet 01/17/19 Unknown Rx traMADol [Ultram 50 MG tab] 50 mg PO Q4HR PRN #10 tablet 01/21/19 Unknown Rx Oxycodone HCl [oxyCODONE] 10 mg PO Q6H PRN #10 tablet 01/23/19 Unknown Rx Allergies Allergy/AdvReac Type Severity Reaction Status Date / Time aspirin Allergy Unknown Verified 01/02/19 14:41 pork derived (porcine) Allergy Rash Verified 01/02/19 14:41 venom-honey bee Allergy Anaphylaxis Verified 01/02/19 14:41 [bee venom (honey bee)] Pork/Porcine Containing AdvReac Severe Nausea,VOMI Verified 01/02/19 14:41 Products TING Heart Score - HEART Score History: Moderately suspicious EKG: Non-specific Age: > 65 Risk factors: > 3 risk factors or hx of atherosclerotic disease Troponin: 1-3x normal limit HEART Score: 7 ED Review of Systems ROS: Stated complaint: CHEST/NECK PAIN Other details as noted in HPI Other: GENERAL: No weight change, fatigue, weakness, fever, chills, or night sweats SKIN: No changes in skin or hair, no itching, no rashes, no jaundice HEAD: No trauma, headache, or visual changes EYES: No blurriness, tearing, itching, acute visual loss, conjunctival disco loration, or scleral icterus EARS: No hearing loss, tinnitus, vertigo, or earache NOSE: No rhinorrhea, stuffiness, sneezing, itching, or epistaxis MOUTH: No bleeding gums, hoarseness, sore throat, or swelling CARDIAC: Chest pain. Palpitations. No new murmur, dyspnea on exertion, orthopnea, PND, or edema RESPIRATORY: No shortness of breath, wheeze, cough, sputum production, hemoptysis, pneumonia, asthma, bronchitis, or emphysema GI: No change in appetite, nausea, vomiting, dysphagia, change in bowel frequency, diarrhea, constipation, bleeding, hematemesis, melena, hematochezia, or abdominal pain MUSCULOSKELETAL: No muscle weakness, joint stiffness, decrease in range of motion, redness, swelling NEUROLOGIC: No loss of sensation, numbness, tingling, tremors, weakness, paralysis, seizures HEMATOLOGIC: No anemia, easy bruising, bleeding, petechiae, or purpura ENDOCRINE: No hot or cold intolerance, sweating, polyuria, polydipsia or, polyphagia no thyroid problems ED Past Medical Hx - Past Medical History Hx Hypertension: Yes Hx Heart Attack/AMI: No Hx Congestive Heart Failure: Yes Hx Diabetes: Yes Hx Deep Vein Thrombosis: Yes Hx Pulmonary Embolism: No Hx Liver Disease: Yes Hx Renal Disease: No Hx Arthritis: Yes (generalized) Hx Seizures: No Hx Kidney Stones: No Hx Psychiatric Treatment: Yes (PTSD) Hx Asthma: No Hx COPD: Yes Hx Tuberculosis: No Hx HIV: No Additional medical history: 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 abd surgery after war related ingury partial "stomach removal'. Left upper extremity amputation below elbow - Social History Smoking Status: Never Smoker - Medications Home Medications: Home Medications Medication Instructions Recorded Confirmed Last Taken Type Apixaban [Eliquis] 2.5 mg PO Q12HR #60 tablet 12/29/18 01/30/19 01/01/19 Rx AtorvaSTATin [Lipitor] 40 mg PO QHS #30 tablet 12/29/18 01/30/19 01/01/19 Rx Famotidine [Pepcid] 10 mg PO BID #15 tablet 12/29/18 01/30/19 01/01/19 Rx amLODIPine [Norvasc] 10 mg PO DAILY #30 tablet 12/29/18 01/30/19 01/01/19 Rx hydrALAZINE [Apresoline TAB] 50 mg PO BID #60 tablet 12/29/18 01/30/19 01/01/19 Rx Carvedilol [Coreg] 25 mg PO BID #60 tablet 01/17/19 01/30/19 Unknown Rx traMADol [Ultram 50 MG tab] 50 mg PO Q4HR PRN #10 tablet 01/21/19 01/30/19 Unknown Rx Oxycodone HCl [oxyCODONE] 10 mg PO Q6H PRN #10 tablet 01/23/19 01/30/19 Unknown Rx Gabapentin [Neurontin] 300 mg PO Q12H PRN 01/30/19 01/30/19 Unknown History diphenhydrAMINE [Benadryl CAP] 50 mg PO Q3D PRN 01/30/19 01/30/19 Unknown His tory ED Physical Exam - General Limitations: No Limitations - Other Other exam information: GENERAL: Patient in mild acute distress HEAD: Normocephalic, atraumatic EYES: PERRLA, EOM intact, no scleral icterus, no conjunctival hemorrhage, visual [place] and acuity wnl NOSE: No tenderness, discharge, sinus tenderness MOUTH: No erythema, bleeding, exudate HEART: Tachycardia, irregular irregular, no murmur, S1-S2 are auscultated, pulses are symmetric LUNGS: Bilateral breath sounds, No tachypnea, No retractions, No wheezing, rales, rhonchi ABDOMEN: Normal bowel sounds, no tenderness, no rebound, no guarding, no masses, no CVA tenderness MUSCULOSKELETAL: Normal joint range of motion, no redness, no swelling, no tenderness NEUROLOGIC: GCS 15, Alert and Oriented x3, Cranial nerves intact, normal sensation, normal strength, normal gait, no cerebellar deficit SKIN: Skin is warm and dry, no wounds, no rashes ED Course Vital Signs 01/29/19 01/30/19 01/30/19 23:39 00:27 00:28 Pulse Rate 91 H 97 H Respiratory 17 16 16 Rate Blood Pressure 163/125 Blood Pressure 158/125 163/125 [Left] O2 Sat by Pulse 100 100 Oximetry 01/30/19 01/30/19 01/30/19 00:38 00:47 01:16 Pulse Rate 99 H 97 H 92 H Respiratory 16 15 Rate Blood Pressure 156/118 Blood Pressure 146/110 147/102 [Left] O2 Sat by Pulse 100 98 Oximetry 01/30/19 01/30/19 01/30/19 02:25 02:59 03:29 Pulse Rate 95 H 89 93 H Respiratory 18 Rate Blood Pressure 125/88 134/89 Blood Pressure 126/85 [Left] O2 Sat by Pulse 99 Oximetry ROGER score - Roger Score Age > 65: (1) Yes Aspirin use within the Past 7 Days: (0) No 3 or more CAD Risk Factors: (1) Yes 2 or more Angina events in past 24 hrs: (0) No Known CAD with more than 50% Stenosis: (0) No Elevated Cardiac Markers: (1) Yes ST Deviation Greater than 0.5mm: (0) No ROGER Score: 3 ED Medical Decision Making - Lab Data Result diagrams: 01/30/19 00:18 01/30/19 00:18 Laboratory Results - last 24 hr 01/30/19 01/30/19 01/30/19 00:18 00:18 00:18 WBC 3.6 L RBC 3.56 L Hgb 11.4 L Hct 35.6 MCV 100 H MCH 32 MCHC 32 RDW 17.4 H Plt Count 88 L Add Manual Diff Complete Total Counted 100 Seg Neuts % (Manual) 54.0 Band Neutrophils % 0 Lymphocytes % (Manual) 33.0 Reactive Lymphs % (Man) 0 Monocytes % (Manual) 10.0 H Eosinophils % (Manual) 3.0 Basophils % (Manual) 0 Metamyelocytes % 0 Myelocytes % 0 Promyelocytes % 0 Blast Cells % 0 Nucleated RBC % Not Reportable Seg Neutrophils # Man 1.9 Band Neutrophils # 0.0 Lymphocytes # (Manual) 1.2 Abs React Lymphs (Man) 0.0 Monocytes # (Manual) 0.4 Eosinophils # (Manual) 0.1 Basophils # (Manual) 0.0 Metamyelocytes # 0.0 Myelocytes # 0.0 Promyelocytes # 0.0 Blast Cells # 0.0 WBC Morphology Not Reportable Hypersegmented Neuts Not Reportable Hyposegmented Neuts Not Reportable Hypogranular Neuts Not Reportable Smudge Cells Not Reportable Toxic Granulation Not Reportable Toxic Vacuolation Not Reportable Dohle Bodies Not Reportable Pelger-Huet Anomaly Not Reportable Gertrude Rods Not Reportable Platelet Estimate Appears decreased Clumped Platelets Not Reportable Plt Clumps, EDTA Not Reportable Large Platelets Not Reportable Giant Platelets Not Reportable Platelet Satelliting Not Reportable Plt Morphology Comment Not Reportable RBC Morphology Not Reportable Dimorphic RBCs Not Reportable Polychromasia Not Reportable Hypochromasia Not Reportable Poikilocytosis 1+ Anisocytosis 1+ Microcytosis Not Reportable Macrocytosis Not Reportable Spherocytes Not Reportable Pappenheimer Bodies Not Reportable Sickle Cells Not Reportable Target Cells Not Reportable Tear Drop Cells Not Reportable Ovalocytes Not Reportable Helmet Cells Not Reportable [place] Bodies Not Reportable [place] Rings Not Reportable [place] Cells Not Reportable Bite Cells Not Reportable Crenated Cell Not Reportable Elliptocytes Not Reportable Acanthocytes (Spur) Not Reportable Rouleaux Not Reportable Hemoglobin C Crystals Not Reportable Schistocytes Not Reportable Malaria parasites Not Reportable Jacob Bodies Not Reportable Hem Pathologist Commnt No PT 17.4 H INR 1.46 H APTT 28.6 Sodium 136 L Potassium 4.8 Chloride 99.6 Carbon Dioxide 21 L Anion Gap 20 BUN 32 H Creatinine 5.2 H Estimated GFR 13 BUN/Creatinine Ratio 6 Glucose 79 Calcium 9.1 Magnesium 2.00 Troponin T 0.285 H* NT-Pro-B Natriuret Pep 73861 H Triglycerides 66 Cholesterol 80 LDL Cholesterol Direct 29 L HDL Cholesterol 45 Cholesterol/HDL Ratio 1.77 01/30/19 02:29 WBC RBC Hgb Hct MCV MCH MCHC RDW Plt Count Add Manual Diff Total Counted Seg Neuts % (Manual) Band Neutrophils % Lymphocytes % (Manual) Reactive Lymphs % (Man) Monocytes % (Manual) Eosinophils % (Manual) Basophils % (Manual) Metamyelocytes % Myelocytes % Promyelocytes % Blast Cells % Nucleated RBC % Seg Neutrophils # Man Band Neutrophils # Lymphocytes # (Manual) Abs React Lymphs (Man) Monocytes # (Manual) Eosinophils # (Manual) Basophils # (Manual) Metamyelocytes # Myelocytes # Promyelocytes # Blast Cells # WBC Morphology Hypersegmented Neuts Hyposegmented Neuts Hypogranular Neuts Smudge Cells Toxic Granulation Toxic Vacuolation Dohle Bodies Pelger-Huet Anomaly Gertrude Rods Platelet Estimate Clumped Platelets Plt Clumps, EDTA Large Platelets Giant Platelets Platelet Satelliting Plt Morphology Comment RBC Morphology Dimorphic RBCs Polychromasia Hypochromasia Poikilocytosis Anisocytosis Microcytosis Macrocytosis Spherocytes Pappenheimer Bodies Sickle Cells Target Cells Tear Drop Cells Ovalocytes Helmet Cells [place] Bodies [place] Rings Priya Cells Bite Cells Crenated Cell Elliptocytes Acanthocytes (Spur) Rouleaux Hemoglobin C Crystals Schistocytes Malaria parasites Jacob Bodies Hem Pathologist Commnt PT INR APTT Sodium Potassium Chloride Carbon Dioxide Anion Gap BUN Creatinine Estimated GFR BUN/Creatinine Ratio Glucose Calcium Magnesium Troponin T 0.290 H* NT-Pro-B Natriuret Pep Triglycerides Cholesterol LDL Cholesterol Direct HDL Cholesterol Cholesterol/HDL Ratio - EKG Data When compared to previous EKG there are: changes noted - Radiology Data Radiology results: report reviewed - Medical Decision Making Patient comfortable. Plan admit for further evaluation chest pain with elevated heart score. Hospitalist updated and accepts admission. Critical care attestation.: If time is entered above; I have spent that time in minutes in the direct care of this critically ill patient, excluding procedure time. ED Disposition Clinical Impression: Atrial fibrillation with rapid ventricular response Chest pain Qualifiers: Chest pain type: unspecified Qualified Code(s): R07.9 - Chest pain, unspecified Disposition: OP ADMIT IP TO THIS HOSP Is pt being admited?: Yes Condition: Stable Instructions: Chest Pain (ED) Referrals: JUANITA ROCKWELL MD [Primary Care Provider] - 3-5 Days Time of Disposition: 03:52
--- NOTE | 2019-01-30 00:25 | XRay Report ---
CHEST 1 VIEW INDICATION: tachycardia. Acute tachycardia COMPARISON: 01/03/2019 FINDINGS: Support devices: Stable satisfactory device positioning. Heart: Stable cardiomegaly with left subclavian stent again noted. Lungs/Pleura: Persistent moderate-sized effusion on the left with clear right lung. Additional findings: None. IMPRESSION: 1. Unchanged exam. Signer Name: Giacomo Garces MD Signed: 01/30/2019 12:20 AM Workstation Name: [id number]
[2019-01-30] MEDS: MORPHINE IV PRN ×2 (00:28→05:56)
[2019-01-30 00:41] LABS: Hematocrit 35.6 % (35.5-45.6); Hemoglobin 11.4 gm/dl (11.8-15.2); Mean Corpuscular HGB Conc 32 % (32-34); Mean Corpuscular Volume 100 fl (84-94); Red Blood Count 3.56 M/mm3 (3.65-5.03); Red Cell Distribution Width 17.4 % (13.2-15.2)
[2019-01-30] MEDS ORDERED: CATAPRES PO ONE (00:43)
[2019-01-30 00:52] LABS: INR 1.46 (0.87-1.13)
[2019-01-30 00:53] LABS: Partial Thromboplastin Time 28.6 Sec. (24.2-36.6)
[2019-01-30 01:04] LABS: Calcium 9.1 mg/dL (8.4-10.2)
[2019-01-30 02:40] LABS: Chol/HDL Ratio 1.77 %
[2019-01-30] MEDS: NITROSTAT SL PRN ×2 (02:59→03:29)
[2019-01-30 03:14] LABS: Basophils % (Manual) 0 % (0.0-1.8); Total Cells Counted 100
[2019-01-30 03:15] LABS: Anisocytosis 1+; Platelet Estimate Appears Decreased; Poikilocytosis 1+
[2019-01-30 04:10] LABS: Platelet Count 88 K/mm3 (140-440)
[2019-01-30] MEDS ORDERED: NEURONTIN PO PRN (04:22)
[2019-01-30] MEDS ORDERED: ULTRAM PO PRN (04:22)
[2019-01-30] MEDS ORDERED: BENADRYL PO PRN (04:22)
[2019-01-30] MEDS ORDERED: MORPHINE IV PRN (04:24)
[2019-01-30] MEDS ORDERED: ZOFRAN IV PRN (04:24)
[2019-01-30] MEDS ORDERED: TYLENOL PO PRN (04:24)
[2019-01-30] MEDS ORDERED: SODIUM CHLORIDE FLUSH SYRINGE 10 ML IV PRN ×2 (04:24→04:25)
[2019-01-30] MEDS ORDERED: APRESOLINE IV PRN (04:26)
--- NOTE | 2019-01-30 04:31 | History and Physical Report ---
History of Present Illness Chief complaint: I have chest pain History of present illness: 71-year-old man with past medical history of end-stage renal disease, A. fib who presents to the hospital with chest pain. Chest pain is substernal 4 out of 10 and no exacerbating or relieving factors. Past medical history; end-stage renal disease, A. fib, right upper extremity ulcer being managed by general surgery, chronic anemia, history of DVT, PTSD Past surgical history; bowel surgery, neck and back surgery 3, vascular surgery, left upper extremity amputation below elbow Social history , denies ALCOHOL OR ILLICIT DRUG USE FAMILY HISTORY HYPERTENSION Constitutional: no fever, no chills, no night sweats, no weight loss, no weight gain, no sweats, no anorexia, no fatigue, no weakness, no malaise, no lethargy Eyes: bilateral: other (no complaint of visual problems.) Ears, nose, mouth and throat: mouth pain, no ear pain, no ear discharge, no decreased hearing, no nose pain, no nasal congestion, no bleeding gums, no dental pain, no dysphagia, no hoarseness, no sore throat Cardiovascular: no orthopnea, no palpitations, Respiratory: no cough with sputum, no excessive sputum, no hemoptysis, no wheezing, no pleurisy, no pain Gastrointestinal: no abdominal pain, no nausea, no vomiting, no diarrhea, no hematochezia, no loss of appetite Rectal: no pain, no incontinence, no bleeding Musculoskeletal: no neck stiffness, no neck pain, no shooting arm pain, no arm numbness/tingling, no low back pain, no shooting leg pain, no leg numbness/tingling Integumentary: no pruritis, no redness, no sores Neurological: no transient paralysis, no paralysis, no weakness Psychiatric: no memory loss, no change in sleep habits, no disorientation Endocrine: no heat intolerance, no polyphagia Hematologic/Lymphatic: no easy bruising, no easy bleeding Allergic/Immunologic: no allergic rhinitis Medications and Allergies Allergies Allergy/AdvReac Type Severity Reaction Status Date / Time aspirin Allergy Unknown Verified 01/02/19 14:41 pork derived (porcine) Allergy Rash Verified 01/02/19 14:41 venom-honey bee Allergy Anaphylaxis Verified 01/02/19 14:41 [bee venom (honey bee)] Pork/Porcine Containing AdvReac Severe Nausea,VOMI Verified 01/02/19 14:41 Products TING Home Medications Medication Instructions Recorded Confirmed Last Taken Type Apixaban [Eliquis] 2.5 mg PO Q12HR #60 tablet 12/29/18 01/30/19 01/01/19 Rx AtorvaSTATin [Lipitor] 40 mg PO QHS #30 tablet 12/29/18 01/30/19 01/01/19 Rx Famotidine [Pepcid] 10 mg PO BID #15 tablet 12/29/18 01/30/19 01/01/19 Rx amLODIPine [Norvasc] 10 mg PO DAILY #30 tablet 12/29/18 01/30/19 01/01/19 Rx hydrALAZINE [Apresoline TAB] 50 mg PO BID #60 tablet 12/29/18 01/30/19 01/01/19 Rx Carvedilol [Coreg] 25 mg PO BID #60 tablet 01/17/19 01/30/19 Unknown Rx traMADol [Ultram 50 MG tab] 50 mg PO Q4HR PRN #10 tablet 01/21/19 01/30/19 Unknown Rx Oxycodone HCl [oxyCODONE] 10 mg PO Q6H PRN #10 tablet 01/23/19 01/30/19 Unknown Rx Gabapentin [Neurontin] 300 mg PO Q12H PRN 01/30/19 01/30/19 Unknown History Insulin Regular, Human [HumuLIN R] 5 unit SQ QAM 01/30/19 01/30/19 1 Day Ago History ~01/29/19 diphenhydrAMINE [Benadryl CAP] 50 mg PO Q3D PRN 01/30/19 01/30/19 Unknown History Active Meds: Active Medications Amlodipine Besylate (Norvasc) 10 mg PO DAILY [facility] Apixaban (Eliquis) 2.5 mg PO Q12HR BEAN; Protocol Atorvastatin Calcium (Lipitor) 40 mg PO QHS [facility] Carvedilol (Coreg) 25 mg PO BID [facility] Diphenhydramine HCl (Benadryl) 50 mg PO Q3D PRN PRN Reason: Itching Famotidine (Pepcid) 10 mg PO BID [facility] Gabapentin (Neurontin) 300 mg PO Q12H PRN PRN Reason: Pain , Severe (7-10) Hydralazine HCl (Apresoline) 50 mg PO BID BEAN Morphine Sulfate (Morphine) 4 mg IV Q4H PRN PRN Reason: Pain Last Admin: 01/30/19 00:28 Dose: 4 mg Documented by: Nitroglycerin (Nitrostat) 0.4 mg SL .Q5MIN PRN PRN Reason: Chest Pain Last Admin: 01/30/19 03:29 Dose: 0.4 mg Documented by: Oxycodone HCl (Roxicodone) 10 mg PO Q6H PRN PRN Reason: Pain Tramadol HCl (Ultram) 50 mg PO Q4H PRN PRN Reason: Pain (4-6) Exam - Constitutional Vitals: Temp Pulse Resp BP Pulse Ox 93 H 18 134/89 99 01/30/19 03:29 01/30/19 02:25 01/30/19 03:29 01/30/19 02:25 General appearance: Present: no acute distress, well-nourished - EENT Eyes: Present: PERRL ENT: hearing intact, clear oral mucosa - Neck Neck: Present: supple, normal ROM - Respiratory Respiratory effort: normal Respiratory: bilateral: CTA - Cardiovascular Heart Sounds: Present: S1 & S2. Absent: rub, click - Extremities Extremities: pulses symmetrical, No edema Peripheral Pulses: within normal limits - Abdominal General gastrointestinal: Present: soft, non-tender, non-distended, normal bowel sounds Male genitourinary: Present: normal - Integumentary Integumentary: Present: clear, warm, dry - Musculoskeletal Musculoskeletal: gait normal, strength equal bilaterally - Psychiatric Psychiatric: appropriate mood/affect, intact judgment & insight - Neurologic Neurologic: CNII-XII intact, moves all extremities Results - Labs CBC & Chem 7: 01/30/19 00:18 01/30/19 00:18 Labs: Laboratory Last Values WBC 3.6 K/mm3 (4.5-11.0) L 01/30/19 00:18 RBC 3.56 M/mm3 (3.65-5.03) L 01/30/19 00:18 Hgb 11.4 gm/dl (11.8-15.2) L 01/30/19 00:18 Hct 35.6 % (35.5-45.6) 01/30/19 00:18 MCV 100 fl (84-94) H 01/30/19 00:18 MCH 32 pg (28-32) 01/30/19 00:18 MCHC 32 % (32-34) 01/30/19 00:18 RDW 17.4 % (13.2-15.2) H 01/30/19 00:18 Plt Count 88 K/mm3 (140-440) L 01/30/19 00:18 Add Manual Diff Complete 01/30/19 00:18 Total Counted 100 01/30/19 00:18 Seg Neuts % (Manual) 54.0 % (40.0-70.0) 01/30/19 00:18 0 % 01/30/19 00:18 33.0 % (13.4-35.0) 01/30/19 00:18 Reactive Lymphs % (Man) 0 % 01/30/19 00:18 10.0 % (0.0-7.3) H 01/30/19 00:18 3.0 % (0.0-4.3) 01/30/19 00:18 0 % (0.0-1.8) 01/30/19 00:18 0 % 01/30/19 00:18 0 % 01/30/19 00:18 0 % 01/30/19 00:18 0 % 01/30/19 00:18 Nucleated RBC % Not Reportable 01/30/19 00:18 Seg Neutrophils # Man 1.9 K/mm3 (1.8-7.7) 01/30/19 00:18 Band Neutrophils # 0.0 K/mm3 01/30/19 00:18 1.2 K/mm3 (1.2-5.4) 01/30/19 00:18 Abs React Lymphs (Man) 0.0 K/mm3 01/30/19 00:18 0.4 K/mm3 (0.0-0.8) 01/30/19 00:18 0.1 K/mm3 (0.0-0.4) 01/30/19 00:18 0.0 K/mm3 (0.0-0.1) 01/30/19 00:18 0.0 K/mm3 01/30/19 00:18 0.0 K/mm3 01/30/19 00:18 0.0 K/mm3 01/30/19 00:18 Blast Cells # 0.0 K/mm3 01/30/19 00:18 WBC Morphology Not Reportable 01/30/19 00:18 Hypersegmented Neuts Not Reportable 01/30/19 00:18 Hyposegmented Neuts Not Reportable 01/30/19 00:18 Hypogranular Neuts Not Reportable 01/30/19 00:18 Not Reportable 01/30/19 00:18 Not Reportable 01/30/19 00:18 Not Reportable 01/30/19 00:18 Not Reportable 01/30/19 00:18 Not Reportable 01/30/19 00:18 Not Reportable 01/30/19 00:18 Appears decreased 01/30/19 00:18 Not Reportable 01/30/19 00:18 Plt Clumps, EDTA Not Reportable 01/30/19 00:18 Not Reportable 01/30/19 00:18 Not Reportable 01/30/19 00:18 Not Reportable 01/30/19 00:18 Plt Morphology Comment Not Reportable 01/30/19 00:18 RBC Morphology Not Reportable 01/30/19 00:18 Dimorphic RBCs Not Reportable 01/30/19 00:18 Not Reportable 01/30/19 00:18 Not Reportable 01/30/19 00:18 1+ 01/30/19 00:18 1+ 01/30/19 00:18 Not Reportable 01/30/19 00:18 Not Reportable 01/30/19 00:18 Not Reportable 01/30/19 00:18 Not Reportable 01/30/19 00:18 Not Reportable 01/30/19 00:18 Not Reportable 01/30/19 00:18 Not Reportable 01/30/19 00:18 Not Reportable 01/30/19 00:18 Not Reportable 01/30/19 00:18 Not Reportable 01/30/19 00:18 Not Reportable 01/30/19 00:18 Not Reportable 01/30/19 00:18 Not Reportable 01/30/19 00:18 Not Reportable 01/30/19 00:18 Not Reportable 01/30/19 00:18 Acanthocytes (Spur) Not Reportable 01/30/19 00:18 Rouleaux Not Reportable 01/30/19 00:18 Not Reportable 01/30/19 00:18 Not Reportable 01/30/19 00:18 Not Reportable 01/30/19 00:18 Not Reportable 01/30/19 00:18 Hem Pathologist Commnt No 01/30/19 00:18 PT 17.4 Sec. (12.2-14.9) H 01/30/19 00:18 INR 1.46 (0.87-1.13) H 01/30/19 00:18 APTT 28.6 Sec. (24.2-36.6) 01/30/19 00:18 Sodium 136 mmol/L (137-145) L 01/30/19 00:18 Potassium 4.8 mmol/L (3.6-5.0) 01/30/19 00:18 Chloride 99.6 mmol/L (98-107) 01/30/19 00:18 Carbon Dioxide 21 mmol/L (22-30) L 01/30/19 00:18 20 mmol/L 01/30/19 00:18 BUN 32 mg/dL (9-20) H 01/30/19 00:18 5.2 mg/dL (0.8-1.5) H 01/30/19 00:18 Estimated GFR 13 ml/min 01/30/19 00:18 6 % 01/30/19 00:18 Glucose 79 mg/dL (75-100) 01/30/19 00:18 Calcium 9.1 mg/dL (8.4-10.2) 01/30/19 00:18 Magnesium 2.00 mg/dL (1.7-2.3) 01/30/19 00:18 0.290 ng/mL (0.00-0.029) H* 01/30/19 02:29 NT-Pro-B Natriuret Pep 04994 pg/mL (0-900) H 01/30/19 00:18 Triglycerides 66 mg/dL (2-149) 01/30/19 00:18 Cholesterol 80 mg/dL (50-199) 01/30/19 00:18 29 mg/dL (50-130) L 01/30/19 00:18 45 mg/dL (40-59) 01/30/19 00:18 1.77 % 01/30/19 00:18 - Imaging and Cardiology Chest x-ray: image reviewed (left pleural effusion) Assessment and Plan Assessment and plan: 71-YEAR-OLD MAN WHO PRESENTS WITH CHEST PAIN Chest x-ray; subclavian stents noted persistent moderate-sized effusion on the left with clear right lung Left pleural effusion Obtain thoracentesis and send fluid for analysis, it is recurrent in nature, patient states that he's had thoracentesis multiple times, also includes cytology Chest pain likely due to hypertensive urgency and recurrent left lung effusion, chronically elevated troponin noted, -Stress test, cardiology consult Hypertensive urgency Optimize blood pressure medications End-stage renal disease, Continue dialysis per nephrology Atrial fibrillation/ hypercoagulable states Continue rate control medications and anticoagulation Severe systolic CHF with EF of 10% Fluid management with dialysis, cardiology consult, keep euvolemic DVT prophylaxis; patient is fully anticoagulated
[2019-01-30] MEDS ORDERED: MORPHINE ONE (05:54)
[2019-01-30] MEDS ORDERED: LEXISCAN IV ONE (07:15)
--- NOTE | 2019-01-30 09:21 | Progress Note ---
Assessment and Plan Assessment and plan: Patient is a 71 yo man with a history of recurrent left sided pleural effusion s/p thoracentesis, ESRD on HD, Afib on Eliquis, CHF with EF 10%, DVT, PTSD, AOCD, Right upper extermity of ulcer and hypertension who presented with chest pains. Chest Xray showed subclavian stents noted persistent moderate side effusion on the left with clear right lung. Acute on chronic systolic heart failure: increase ultrafiltration with HD, consult Cardiology Moderate size left pleural effusion: therapeutic thoracentesis ESRD on Hemodialysis: consulted Nephrology Afib on Eliquis: hold Eliquis for thoracentesis Chest pains with elevated troponin: Consult Cardiology, stress test ordered Hypertension urgency: low salt diet, iv hydralazine prn History Interval history: Patient was seen and examined. Follow-up on current diagnosis CHF. No overnight events reported to me. Patient denies any chest pain, shortness breath, n ausea/vomiting or severe headaches. Imaging, nursing note, chart, labs and old chart reviewed. Discussed with patient. Hospitalist Physical - Physical exam Narrative exam: Gen: WDWN, NAD, Awake, Alert, Orientated HEENT: NCAT, EOMI, PERRL, OP Clear Neck: supple, no adenopathy, no thyromegaly, no JVD CVS/Heart: irregular irregular, normal S1S2, pulses present bilaterally Chest/Lungs: diminised bs L>R base, Symmetrical chest expansion, good air entry bilaterally GI/Abdomen: soft, NTND, good bowel sounds, no guarding or rebound /Bladder: no suprapubic tenderness, no CVA or paraspinal tenderness Extermity/Skin: no c/c/e, no obvious rash MSK: FROM x 3, arm amputee Neuro: CN 2-12 grossly intact, no new focal deficits Psych: calm - Constitutional Vitals: Temp Pulse Resp BP Pulse Ox 97.7 F 76 18 157/111 100 01/30/19 07:48 01/30/19 07:48 01/30/19 07:48 01/30/19 07:48 01/30/19 07:48 General appearance: Present: no acute distress, well-nourished Results - Labs CBC & Chem 7: 01/30/19 00:18 01/30/19 00:18 Labs: Laboratory Last Values WBC 3.6 K/mm3 (4.5-11.0) L 01/30/19 00:18 RBC 3.56 M/mm3 (3.65-5.03) L 01/30/19 00:18 Hgb 11.4 gm/dl (11.8-15.2) L 01/30/19 00:18 Hct 35.6 % (35.5-45.6) 01/30/19 00:18 MCV 100 fl (84-94) H 01/30/19 00:18 MCH 32 pg (28-32) 01/30/19 00:18 MCHC 32 % (32-34) 01/30/19 00:18 RDW 17.4 % (13.2-15.2) H 01/30/19 00:18 Plt Count 88 K/mm3 (140-440) L 01/30/19 00:18 Add Manual Diff Complete 01/30/19 00:18 Total Counted 100 01/30/19 00:18 Seg Neuts % (Manual) 54.0 % (40.0-70.0) 01/30/19 00:18 0 % 01/30/19 00:18 33.0 % (13.4-35.0) 01/30/19 00:18 Reactive Lymphs % (Man) 0 % 01/30/19 00:18 10.0 % (0.0-7.3) H 01/30/19 00:18 3.0 % (0.0-4.3) 01/30/19 00:18 0 % (0.0-1.8) 01/30/19 00:18 0 % 01/30/19 00:18 0 % 01/30/19 00:18 0 % 01/30/19 00:18 0 % 01/30/19 00:18 Nucleated RBC % Not Reportable 01/30/19 00:18 Seg Neutrophils # Man 1.9 K/mm3 (1.8-7.7) 01/30/19 00:18 Band Neutrophils # 0.0 K/mm3 01/30/19 00:18 1.2 K/mm3 (1.2-5.4) 01/30/19 00:18 Abs React Lymphs (Man) 0.0 K/mm3 01/30/19 00:18 0.4 K/mm3 (0.0-0.8) 01/30/19 00:18 0.1 K/mm3 (0.0-0.4) 01/30/19 00:18 0.0 K/mm3 (0.0-0.1) 01/30/19 00:18 0.0 K/mm3 01/30/19 00:18 0.0 K/mm3 01/30/19 00:18 0.0 K/mm3 01/30/19 00:18 Blast Cells # 0.0 K/mm3 01/30/19 00:18 WBC Morphology Not Reportable 01/30/19 00:18 Hypersegmented Neuts Not Reportable 01/30/19 00:18 Hyposegmented Neuts Not Reportable 01/30/19 00:18 Hypogranular Neuts Not Reportable 01/30/19 00:18 Not Reportable 01/30/19 00:18 Not Reportable 01/30/19 00:18 Not Reportable 01/30/19 00:18 Not Reportable 01/30/19 00:18 Not Reportable 01/30/19 00:18 Not Reportable 01/30/19 00:18 Appears decreased 01/30/19 00:18 Not Reportable 01/30/19 00:18 Plt Clumps, EDTA Not Reportable 01/30/19 00:18 Not Reportable 01/30/19 00:18 Not Reportable 01/30/19 00:18 Not Reportable 01/30/19 00:18 Plt Morphology Comment Not Reportable 01/30/19 00:18 RBC Morphology Not Reportable 01/30/19 00:18 Dimorphic RBCs Not Reportable 01/30/19 00:18 Not Reportable 01/30/19 00:18 Not Reportable 01/30/19 00:18 1+ 01/30/19 00:18 1+ 01/30/19 00:18 Not Reportable 01/30/19 00:18 Not Reportable 01/30/19 00:18 Not Reportable 01/30/19 00:18 Not Reportable 01/30/19 00:18 Not Reportable 01/30/19 00:18 Not Reportable 01/30/19 00:18 Not Reportable 01/30/19 00:18 Not Reportable 01/30/19 00:18 Not Reportable 01/30/19 00:18 Not Reportable 01/30/19 00:18 Not Reportable 01/30/19 00:18 Not Reportable 01/30/19 00:18 Not Reportable 01/30/19 00:18 Not Reportable 01/30/19 00:18 Not Reportable 01/30/19 00:18 Acanthocytes (Spur) Not Reportable 01/30/19 00:18 Rouleaux Not Reportable 01/30/19 00:18 Not Reportable 01/30/19 00:18 Not Reportable 01/30/19 00:18 Not Reportable 01/30/19 00:18 Not Reportable 01/30/19 00:18 Hem Pathologist Commnt No 01/30/19 00:18 PT 17.4 Sec. (12.2-14.9) H 01/30/19 00:18 INR 1.46 (0.87-1.13) H 01/30/19 00:18 APTT 28.6 Sec. (24.2-36.6) 01/30/19 00:18 Sodium 136 mmol/L (137-145) L 01/30/19 00:18 Potassium 4.8 mmol/L (3.6-5.0) 01/30/19 00:18 Chloride 99.6 mmol/L (98-107) 01/30/19 00:18 Carbon Dioxide 21 mmol/L (22-30) L 01/30/19 00:18 20 mmol/L 01/30/19 00:18 BUN 32 mg/dL (9-20) H 01/30/19 00:18 5.2 mg/dL (0.8-1.5) H 01/30/19 00:18 Estimated GFR 13 ml/min 01/30/19 00:18 6 % 01/30/19 00:18 Glucose 79 mg/dL (75-100) 01/30/19 00:18 Calcium 9.1 mg/dL (8.4-10.2) 01/30/19 00:18 Magnesium 2.00 mg/dL (1.7-2.3) 01/30/19 00:18 0.290 ng/mL (0.00-0.029) H* 01/30/19 02:29 NT-Pro-B Natriuret Pep 36211 pg/mL (0-900) H 01/30/19 00:18 Triglycerides 66 mg/dL (2-149) 01/30/19 00:18 Cholesterol 80 mg/dL (50-199) 01/30/19 00:18 29 mg/dL (50-130) L 01/30/19 00:18 45 mg/dL (40-59) 01/30/19 00:18 1.77 % 01/30/19 00:18 Active Medications - Current Medications Current Medications: Generic Name Dose Route Start Last Admin Trade Name Freq PRN Reason Stop Dose Admin Acetaminophen 650 mg 01/30/19 04:24 Tylenol PO Q4H PRN Pain MILD(1-3)/Fever >100.5/DOUGLAS Amlodipine Besylate 10 mg 01/30/19 10:00 Norvasc PO DAILY [facility] Atorvastatin Calcium 40 mg 01/30/19 22:00 Lipitor PO QHS [facility] Carvedilol 25 mg 01/30/19 10:00 Coreg PO BID [facility] Diphenhydramine HCl 50 mg 01/30/19 04:22 Benadryl PO Q3D PRN Itching Famotidine 10 mg 01/30/19 10:00 Pepcid PO BID [facility] Gabapentin 300 mg 01/30/19 04:22 Neurontin PO Q12H PRN Pain , Severe (7-10) Hydralazine HCl 50 mg 01/30/19 10:00 Apresoline PO BID [facility] Hydralazine HCl 10 mg 01/30/19 04:26 Apresoline IV Q4HR PRN BP >160/100 Morphine Sulfate 4 mg 01/30/19 00:02 01/30/19 05:56 Morphine IV 4 mg Q4H PRN Administration Pain Morphine Sulfate 4 mg 01/30/19 04:24 Morphine IV 01/31/19 04:23 Q4H PRN Pain , Severe (7-10) Nitroglycerin 0.4 mg 01/30/19 00:02 01/30/19 03:29 Nitrostat SL 0.4 mg .Q5MIN PRN Administration Chest Pain Ondansetron HCl 4 mg 01/30/19 04:24 Zofran IV Q8H PRN Nausea And Vomiting Oxycodone HCl 10 mg 01/30/19 04:22 Roxicodone PO Q6H PRN Pain Sodium Chloride 10 ml 01/30/19 10:00 Sodium Chloride Flush Syringe 10 Ml IV BID BEAN Sodium Chloride 10 ml 01/30/19 04:24 Sodium Chloride Flush Syringe 10 Ml IV PRN PRN LINE FLUSH Tramadol HCl 50 mg 01/30/19 04:22 Ultram PO Q4H PRN Pain (4-6)
[2019-01-30] MEDS ORDERED: ELIQUIS PO SCH (10:00)
--- NOTE | 2019-01-30 10:00 | Consultation ---
History of Present Illness Consult date: 01/30/19 Consult reason: chest pain History of present illness: 71-year-old man with past medical history of end-stage renal disease, A. fib who presents to the hospital with chest pain. Chest pain is substernal, without radiation, lasting several hours. Patient denies additional symptoms of SOB orthopnea, pnd, palpitations, dizziness or syncope. Past medical history; end-stage renal disease, A. fib, right upper extremity ulcer being managed by general surgery, chronic anemia, history of DVT, PTSD Past surgical history; bowel surgery, neck and back surgery 3, vascular surgery, left upper extremity amputation below elbow Social history , denies alcohol or drug use family history of hypertension Past History Past Medical History: atrial fib, ESRD, other (PTSD, chronic ulcer) Past Surgical History: bowel surgery, Other (amputation, neck and back surgery) Social history: denies: alcohol abuse, prescription drug abuse, IV drug use Family history: hypertension Medications and Allergies Allergies Allergy/AdvReac Type Severity Reaction Status Date / Time aspirin Allergy Unknown Verified 01/02/19 14:41 pork derived (porcine) Allergy Rash Verified 01/02/19 14:41 venom-honey bee Allergy Anaphylaxis Verified 01/02/19 14:41 [bee venom (honey bee)] Pork/Porcine Containing AdvReac Severe Nausea,VOMI Verified 01/02/19 14:41 Products TING Home Medications Medication Instructions Recorded Confirmed Last Taken Type Apixaban [Eliquis] 2.5 mg PO Q12HR #60 tablet 12/29/18 01/30/19 01/01/19 Rx AtorvaSTATin [Lipitor] 40 mg PO QHS #30 tablet 12/29/18 01/30/19 01/01/19 Rx Famotidine [Pepcid] 10 mg PO BID #15 tablet 12/29/18 01/30/19 01/01/19 Rx amLODIPine [Norvasc] 10 mg PO DAILY #30 tablet 12/29/18 01/30/19 01/01/19 Rx hydrALAZINE [Apresoline TAB] 50 mg PO BID #60 tablet 12/29/18 01/30/19 01/01/19 Rx Carvedilol [Coreg] 25 mg PO BID #60 tablet 01/17/19 01/30/19 Unknown Rx traMADol [Ultram 50 MG tab] 50 mg PO Q4HR PRN #10 tablet 01/21/19 01/30/19 Unknown Rx Oxycodone HCl [oxyCODONE] 10 mg PO Q6H PRN #10 tablet 01/23/19 01/30/19 Unknown Rx Gabapentin [Neurontin] 300 mg PO Q12H PRN 01/30/19 01/30/19 Unknown History Insulin Regular, Human [HumuLIN R] 5 unit SQ QAM 01/30/19 01/30/19 1 Day Ago History ~01/29/19 diphenhydrAMINE [Benadryl CAP] 50 mg PO Q3D PRN 01/30/19 01/30/19 Unknown History Active Meds: Active Medications Acetaminophen (Tylenol) 650 mg PO Q4H PRN PRN Reason: Pain MILD(1-3)/Fever >100.5/DOUGLAS Amlodipine Besylate (Norvasc) 10 mg PO DAILY [facility] Atorvastatin Calcium (Lipitor) 40 mg PO QHS [facility] Carvedilol (Coreg) 25 mg PO BID [facility] Diphenhydramine HCl (Benadryl) 50 mg PO Q3D PRN PRN Reason: Itching Famotidine (Pepcid) 10 mg PO BID BEAN Gabapentin (Neurontin) 300 mg PO Q12H PRN PRN Reason: Pain , Severe (7-10) Hydralazine HCl (Apresoline) 50 mg PO BID [facility] Hydralazine HCl (Apresoline) 10 mg IV Q4HR PRN PRN Reason: BP >160/100 Morphine Sulfate (Morphine) 4 mg IV Q4H PRN PRN Reason: Pain Last Admin: 01/30/19 05:56 Dose: 4 mg Documented by: Morphine Sulfate (Morphine) 4 mg IV Q4H PRN PRN Reason: Pain , Severe (7-10) Stop: 01/31/19 04:23 Nitroglycerin (Nitrostat) 0.4 mg SL .Q5MIN PRN PRN Reason: Chest Pain Last Admin: 01/30/19 03:29 Dose: 0.4 mg Documented by: Ondansetron HCl (Zofran) 4 mg IV Q8H PRN PRN Reason: Nausea And Vomiting Oxycodone HCl (Roxicodone) 10 mg PO Q6H PRN PRN Reason: Pain Sodium Chloride (Sodium Chloride Flush Syringe 10 Ml) 10 ml IV BID BEAN Sodium Chloride (Sodium Chloride Flush Syringe 10 Ml) 10 ml IV PRN PRN PRN Reason: LINE FLUSH Tramadol HCl (Ultram) 50 mg PO Q4H PRN PRN Reason: Pain (4-6) Review of Systems All systems: negative (pertinent positives in HPI) Physical Examination Vital Signs Temp Pulse Resp BP Pulse Ox 98.0 F 103 H 18 163/111 100 01/29/19 22:58 01/29/19 22:58 01/29/19 22:58 01/29/19 22:58 01/29/19 22:58 General appearance: no acute distress HEENT: Positive: PERRL, EOMI Cardiac: Positive: Reg Rate and Rhythm, S1/S2 Lungs: Positive: clear to auscultation Neuro: Positive: Grossly Intact Abdomen: Positive: Unremarkable Extremities: Present: Other (lower extremity amputation) Results 01/30/19 00:18 01/30/19 00:18 Coagulation 01/30/19 Range/Units 00:18 PT 17.4 H (12.2-14.9) Sec. INR 1.46 H (0.87-1.13) APTT 28.6 (24.2-36.6) Sec. Lipids 01/30/19 Range/Units 00:18 Triglycerides 66 (2-149) mg/dL Cholesterol 80 (50-199) mg/dL HDL Cholesterol 45 (40-59) mg/dL Cholesterol/HDL Ratio 1.77 % CBC 01/30/19 Range/Units 00:18 WBC 3.6 L (4.5-11.0) K/mm3 RBC 3.56 L (3.65-5.03) M/mm3 Hgb 11.4 L (11.8-15.2) gm/dl Hct 35.6 (35.5-45.6) % Plt Count 88 L (140-440) K/mm3 Comprehensive Metabolic Panel 01/30/19 Range/Units 00:18 Sodium 136 L (137-145) mmol/L Potassium 4.8 (3.6-5.0) mmol/L Chloride 99.6 (98-107) mmol/L Carbon Dioxide 21 L (22-30) mmol/L BUN 32 H (9-20) mg/dL Creatinine 5.2 H (0.8-1.5) mg/dL Glucose 79 (75-100) mg/dL Calcium 9.1 (8.4-10.2) mg/dL Assessment and Plan 1. Left pleural effusion - planned for thoracentesis. 2. Chest pain - atypical. Multiple Cv risk factors including HTN and peripheral vascular disease. likely due to hypertensive urgency and recurrent left lung effusion. Chronically elevated troponin not in the expected pattern of ACS. Plan for stress test. 3. Hypertensive urgency - Maximize blood pressure medications 4. End-stage renal disease - Continue dialysis per nephrology 5. Atrial fibrillation - rate control strategy. Recommend anticoagulation. CHADSVASc 3. 6. Severe systolic CHF with EF of 10% - Fluid management with dialysis. Maximize medical therapy with BB and ACEi. 7. peripehral vascular disease - history of subclavian stents. ASA and high intensity statin.
--- NOTE | 2019-01-30 10:57 | Consultation ---
History of Present Illness - Reason for Consult Consult date: 01/30/19 end stage renal disease - History of Present Illness The patient is a 71 YO male who is known to our service with history significant for DM type 2, HTN, Chronic A.fib, CAD, CHF, PTSD, PAD s/p left forearm amputation, chronic L pleural effusion (Transudate) and ESRD on hemodialysis (TTS) who presented to [facility] ED with c/o L sided CP. The pain is 4 out of 10 and no exacerbating or relieving factors. No h/o sob, N, V, palpitation, dizziness or syncope. He was last dialyzed yesterday. Nephrology was consulted for ESRD management. Past History Past Medical History: atrial fib, dialysis, ESRD, hypertension, hyperlipidemia, other (PTSD, chronic ulcer) Past Surgical History: bowel surgery, Other (amputation, neck and back surgery) Social history: denies: alcohol abuse, prescription drug abuse, IV drug use Family history: hypertension Medications and Allergies Allergies Allergy/AdvReac Type Severity Reaction Status Date / Time aspirin Allergy Unknown Verified 01/02/19 14:41 pork derived (porcine) Allergy Rash Verified 01/02/19 14:41 venom-honey bee Allergy Anaphylaxis Verified 01/02/19 14:41 [bee venom (honey bee)] Pork/Porcine Containing AdvReac Severe Nausea,VOMI Verified 01/02/19 14:41 Products TING Home Medications Medication Instructions Recorded Confirmed Last Taken Type Apixaban [Eliquis] 2.5 mg PO Q12HR #60 tablet 12/29/18 01/30/19 01/01/19 Rx AtorvaSTATin [Lipitor] 40 mg PO QHS #30 tablet 12/29/18 01/30/19 01/01/19 Rx Famotidine [Pepcid] 10 mg PO BID #15 tablet 12/29/18 01/30/19 01/01/19 Rx amLODIPine [Norvasc] 10 mg PO DAILY #30 tablet 12/29/18 01/30/19 01/01/19 Rx hydrALAZINE [Apresoline TAB] 50 mg PO BID #60 tablet 12/29/18 01/30/19 01/01/19 Rx Carvedilol [Coreg] 25 mg PO BID #60 tablet 01/17/19 01/30/19 Unknown Rx traMADol [Ultram 50 MG tab] 50 mg PO Q4HR PRN #10 tablet 01/21/19 01/30/19 Unknown Rx Oxycodone HCl [oxyCODONE] 10 mg PO Q6H PRN #10 tablet 01/23/19 01/30/19 Unknown Rx Gabapentin [Neurontin] 300 mg PO Q12H PRN 01/30/19 01/30/19 Unknown History Insulin Regular, Human [HumuLIN R] 5 unit SQ QAM 01/30/19 01/30/19 1 Day Ago History ~01/29/19 diphenhydrAMINE [Benadryl CAP] 50 mg PO Q3D PRN 01/30/19 01/30/19 Unknown History Active Meds: Active Medications Acetaminophen (Tylenol) 650 mg PO Q4H PRN PRN Reason: Pain MILD(1-3)/Fever >100.5/DOUGLAS Amlodipine Besylate (Norvasc) 10 mg PO DAILY BEAN Atorvastatin Calcium (Lipitor) 40 mg PO QHS BEAN Carvedilol (Coreg) 25 mg PO BID BEAN Diphenhydramine HCl (Benadryl) 50 mg PO Q3D PRN PRN Reason: Itching Famotidine (Pepcid) 10 mg PO BID BEAN Gabapentin (Neurontin) 300 mg PO Q12H PRN PRN Reason: Pain , Severe (7-10) Hydralazine HCl (Apresoline) 50 mg PO BID BEAN Hydralazine HCl (Apresoline) 10 mg IV Q4HR PRN PRN Reason: BP >160/100 Lisinopril (Zestril) 5 mg PO QDAY [facility] Morphine Sulfate (Morphine) 4 mg IV Q4H PRN PRN Reason: Pain Last Admin: 01/30/19 05:56 Dose: 4 mg Documented by: Morphine Sulfate (Morphine) 4 mg IV Q4H PRN PRN Reason: Pain , Severe (7-10) Stop: 01/31/19 04:23 Nitroglycerin (Nitrostat) 0.4 mg SL .Q5MIN PRN PRN Reason: Chest Pain Last Admin: 01/30/19 03:29 Dose: 0.4 mg Documented by: Ondansetron HCl (Zofran) 4 mg IV Q8H PRN PRN Reason: Nausea And Vomiting Oxycodone HCl (Roxicodone) 10 mg PO Q6H PRN PRN Reason: Pain Sodium Chloride (Sodium Chloride Flush Syringe 10 Ml) 10 ml IV BID BEAN Sodium Chloride (Sodium Chloride Flush Syringe 10 Ml) 10 ml IV PRN PRN PRN Reason: LINE FLUSH Tramadol HCl (Ultram) 50 mg PO Q4H PRN PRN Reason: Pain (4-6) Review of Systems Constitutional: no weight loss, no weight gain, no fever, no chills, no anorexia, no fatigue, no weakness, no poor appetite Ears, nose, mouth and throat: no epistaxis Cardiovascular: chest pain, high blood pressure, no orthopnea, no edema, no syncope, no lightheadedness, no shortness of breath, no leg edema Respiratory: no cough, no hemoptysis, no shortness of breath Gastrointestinal: no abdominal pain, no nausea, no vomiting, no melena Genitourinary Male: no dysuria, no hematuria Integumentary: no redness, no wounds Neurological: no weakness, no tingling, no seizures, no syncope, no change in speech, no change in mentation, no confusion Psychiatric: no anxiety, no memory loss, no depression Exam - Vital Signs Vital signs: Vital Signs Temp Pulse Resp BP Pulse Ox 98.0 F 103 H 18 163/111 100 01/29/19 22:58 01/29/19 22:58 01/29/19 22:58 01/29/19 22:58 01/29/19 22:58 - General Appearance General appearance: well-developed, appears stated age, other (no distress, R IJ tunnel catheter) EENT: ATNC, PERRL, hearing intact, vision intact Neck: Present: neck supple, trachea midline Respiratory: Clear to Ascultation, Decreased Breath Sounds (L side) Heart: irregularly irregular, S1S2, no murmurs Gastrointestinal: Present: normoactive bowel sounds. Absent: tenderness, distended Integumentary: no rash, warm and dry Neurologic: no focal deficit, no asterixis, alert and oriented x3 Musculoskeletal: Present: other (L forearm amputation) Results - Lab Results 01/30/19 00:18 01/30/19 00:18 Most recent lab results Calcium 9.1 mg/dL (8.4-10.2) 01/30/19 00:18 Magnesium 2.00 mg/dL (1.7-2.3) 01/30/19 00:18 Assessment and Plan 1. ESRD: Continue hemodialysis three times a week, TTS schedule. HD tomorrow. 2. FEN: Monitor. 3. Chest pain: Followed by Cards. 4. A.fib: Rate controlled. Eliquis on hold. 5. DM type 2. 6. Chronic L sided pleural effusion. 7. Anemia: Epogen if needed. 8. PAD.
[2019-01-30] MEDS: COREG PO SCH ×2 (14:16→21:47)
[2019-01-30] MEDS: PEPCID PO SCH ×2 (14:16→21:47)
[2019-01-30] MEDS: ZESTRIL PO SCH (14:16)
[2019-01-30] MEDS: SODIUM CHLORIDE FLUSH SYRINGE 10 ML IV SCH ×2 (14:17→21:47)
[2019-01-30] MEDS: NORVASC PO SCH (14:18)
--- NOTE | 2019-01-30 14:23 | Event Note ---
Date: 01/30/19 Stress thallium test is reported as abnormal; reversible anterior wall defect. Plan: We will hold Eliquis and plan for a cardiac cath on Monday.
[2019-01-30] MEDS: APRESOLINE PO SCH ×2 (15:51→21:46)
[2019-01-30] MEDS: ROXICODONE PO PRN (15:54)
[2019-01-31] MEDS: ROXICODONE PO PRN ×2 (01:09→10:55)
[2019-01-31 06:58] LABS: Hemoglobin 10.5 gm/dl (11.8-15.2); Mean Corpuscular HGB Conc 33 % (32-34); Mean Corpuscular Volume 100 fl (84-94); Red Cell Distribution Width 17.3 % (13.2-15.2)
[2019-01-31 07:00] LABS: Platelet Count 84 K/mm3 (140-440)
[2019-01-31 07:08] LABS: Calcium 8.6 mg/dL (8.4-10.2)
[2019-01-31] MEDS: MORPHINE IV PRN ×2 (08:54→20:42)
[2019-01-31 10:01] LABS: INR 1.29 (0.87-1.13)
[2019-01-31] MEDS ORDERED: NACL 0.9% 100 ML IV PRN (10:09)
[2019-01-31] MEDS ORDERED: PROCRIT SUB-Q PRN (10:09)
--- NOTE | 2019-01-31 10:09 | Progress Note ---
Assessment and Plan 1. ESRD: Continue hemodialysis three times a week, TTS schedule. HD today. 2. FEN: Monitor. 3. Chest pain: Followed by Cards. 4. A.fib: Rate controlled. Eliquis on hold. 5. DM type 2. 6. Chronic L sided pleural effusion. 7. Anemia: Epogen if needed. 8. PAD. Subjective Date of service: 01/31/19 Interval history: Patient was seen and examined at the bedside. Objective - Vital Signs Vital signs: Vital Signs - 12hr 01/30/19 01/30/19 01/31/19 22:45 23:39 01:09 Temperature 97.3 F L Pulse Rate 78 Pulse Rate [ 65 Apical] Respiratory 18 16 18 Rate Blood Pressure 103/65 Blood Pressure [Left] O2 Sat by Pulse 100 100 Oximetry 01/31/19 01/31/19 01/31/19 02:09 04:00 08:44 Temperature 97.4 F L 97.3 F L Pulse Rate 72 82 Pulse Rate [ Apical] Respiratory 16 16 18 Rate Blood Pressure 128/86 Blood Pressure 109/84 [Left] O2 Sat by Pulse 100 98 Oximetry - General Appearance General appearance: well-developed, appears stated age, other (no distress, R IJ tunne catheter) EENT: ATNC, PERRL Neck: supple Respiratory: Present: Decreased Breath Sounds (L side) Cardiology: irregularly irregular, S1S2, no murmurs Gastrointestinal: normoactive bowel sounds, no tenderness, no distended Integumentary: no rash Neurologic: no focal deficit, no asterixis, alert and oriented x3 Musculoskeletal: other (L forearm amputation) - Lab 01/31/19 06:32 01/31/19 06:32 Most recent lab results Calcium 8.6 mg/dL (8.4-10.2) 01/31/19 06:32 Magnesium 2.00 mg/dL (1.7-2.3) 01/30/19 00:18 Medications & Allergies - Medications Allergies/Adverse Reactions: Allergies aspirin Allergy (Verified 01/02/19 14:41) Unknown stomach cramps pork derived (porcine) Allergy (Verified 01/02/19 14:41) Rash venom-honey bee [bee venom (honey bee)] Allergy (Verified 01/02/19 14:41) Anaphylaxis Pork/Porcine Containing Products Adverse Reaction (Severe, Verified 01/02/19 14:41) Nausea,VOMITING Home Medications: Home Medications Medication Instructions Recorded Confirmed Last Taken Type Apixaban [Eliquis] 2.5 mg PO Q12HR #60 tablet 12/29/18 01/30/19 01/01/19 Rx AtorvaSTATin [Lipitor] 40 mg PO QHS #30 tablet 12/29/18 01/30/19 01/01/19 Rx Famotidine [Pepcid] 10 mg PO BID #15 tablet 12/29/18 01/30/19 01/01/19 Rx amLODIPine [Norvasc] 10 mg PO DAILY #30 tablet 12/29/18 01/30/19 01/01/19 Rx hydrALAZINE [Apresoline TAB] 50 mg PO BID #60 tablet 12/29/18 01/30/19 01/01/19 Rx Carvedilol [Coreg] 25 mg PO BID #60 tablet 01/17/19 01/30/19 Unknown Rx traMADol [Ultram 50 MG tab] 50 mg PO Q4HR PRN #10 tablet 01/21/19 01/30/19 Unknown Rx Oxycodone HCl [oxyCODONE] 10 mg PO Q6H PRN #10 tablet 01/23/19 01/30/19 Unknown Rx Gabapentin [Neurontin] 300 mg PO Q12H PRN 01/30/19 01/30/19 Unknown History Insulin Regular, Human [HumuLIN R] 5 unit SQ QAM 01/30/19 01/30/19 1 Day Ago History ~01/29/19 diphenhydrAMINE [Benadryl CAP] 50 mg PO Q3D PRN 01/30/19 01/30/19 Unknown History Active Medications: Generic Name Dose Route Start Last Admin Trade Name Freq PRN Reason Stop Dose Admin Acetaminophen 650 mg 01/30/19 04:24 Tylenol PO Q4H PRN Pain MILD(1-3)/Fever >100.5/DOUGLAS Amlodipine Besylate 10 mg 01/30/19 10:00 01/30/19 14:18 Norvasc PO 10 mg DAILY BEAN Administration Atorvastatin Calcium 40 mg 01/30/19 22:00 01/30/19 21:47 Lipitor PO 40 mg QHS BEAN Administration Carvedilol 25 mg 01/30/19 10:00 01/30/19 21:47 Coreg PO 25 mg BID BEAN Administration Diphenhydramine HCl 50 mg 01/30/19 04:22 Benadryl PO Q3D PRN Itching Famotidine 10 mg 01/30/19 10:00 01/30/19 21:47 Pepcid PO 10 mg BID BEAN Administration Gabapentin 300 mg 01/30/19 04:22 01/30/19 14:22 Neurontin PO 300 mg Q12H PRN Administration Pain , Severe (7-10) Hydralazine HCl 50 mg 01/30/19 15:00 01/30/19 21:46 Apresoline PO 50 mg BID BEAN Administration Hydralazine HCl 10 mg 01/30/19 04:26 Apresoline IV Q4HR PRN BP >160/100 Lisinopril 5 mg 01/30/19 13:00 01/30/19 14:16 Zestril PO 5 mg QDAY BEAN Administration Morphine Sulfate 4 mg 01/30/19 00:02 01/31/19 08:54 Morphine IV 4 mg Q4H PRN Administration Pain Nitroglycerin 0.4 mg 01/30/19 00:02 01/30/19 03:29 Nitrostat SL 0.4 mg .Q5MIN PRN Administration Chest Pain Ondansetron HCl 4 mg 01/30/19 04:24 Zofran IV Q8H PRN Nausea And Vomiting Oxycodone HCl 10 mg 01/30/19 04:22 01/31/19 01:09 Roxicodone PO 10 mg Q6H PRN Administration Pain Sodium Chloride 10 ml 01/30/19 10:00 01/30/19 21:47 Sodium Chloride Flush Syringe 10 Ml IV 10 ml BID BEAN Administration Sodium Chloride 10 ml 01/30/19 04:24 Sodium Chloride Flush Syringe 10 Ml IV PRN PRN LINE FLUSH Tramadol HCl 50 mg 01/30/19 04:22 Ultram PO Q4H PRN Pain (4-6)
[2019-01-31] MEDS: COREG PO SCH ×2 (10:55→22:13)
[2019-01-31] MEDS: PEPCID PO SCH ×2 (10:55→22:13)
[2019-01-31] MEDS: ZESTRIL PO SCH (10:55)
[2019-01-31] MEDS: SODIUM CHLORIDE FLUSH SYRINGE 10 ML IV SCH ×2 (10:57→22:14)
[2019-01-31] MEDS: APRESOLINE PO SCH ×2 (11:47→22:14)
[2019-01-31] MEDS: NORVASC PO SCH (11:47)
--- NOTE | 2019-01-31 12:38 | Progress Note ---
Assessment and Plan Recurrent Left pleural effusion Chronic systolic heart failure DM type II PVD s/p left arm amputation Hypertension ESRD on hemodialysis Thrombocytopenia, chronic Hx of Nonischemic CMP EF 25-30% by echo this admission Non-obstructive CAD C 01/2017 revealed non-obstructive, single vessel disease of the proximal LAD recommended for medical therapy. Permanent Atrial fibrillation rate controlled with metoprolol on low dose eliquis as an outpatient, currently on hold for planned [facility]. Subjective Date of service: 01/31/19 Interval history: Patient has no complaints. Awaits for planned thoracentesis today. Objective Vital Signs Temp Pulse Pulse Resp BP BP Pulse Ox 01/31/19 08:44 97.3 F L 82 18 128/86 98 01/31/19 04:00 97.4 F L 72 16 109/84 100 01/31/19 02:09 16 01/31/19 01:09 18 01/30/19 23:39 97.3 F L 78 16 103/65 100 01/30/19 22:45 65 18 100 01/30/19 21:47 65 117/71 01/30/19 21:46 65 117/71 01/30/19 20:00 97.4 F L 65 17 117/71 100 01/30/19 19:15 74 01/30/19 16:23 97.4 F L 63 18 116/79 99 01/30/19 15:51 81 155/106 01/30/19 14:18 81 155/106 01/30/19 14:16 81 155/106 01/30/19 12:48 97.9 F 81 18 155/106 97 - Physical Examination General: No Apparent Distress HEENT: Positive: PERRL Neck: Positive: neck supple, trachea midline Cardiac: Positive: irregularly irregular Lungs: Positive: Decreased Breath Sounds Neuro: Positive: Grossly Intact Extremities: Present: Other (lower extremity amputation) - Labs and Meds Coagulation 01/31/19 Range/Units 09:24 PT 15.8 H (12.2-14.9) Sec. INR 1.29 H (0.87-1.13) CBC 01/31/19 Range/Units 06:32 WBC 2.9 L (4.5-11.0) K/mm3 RBC 3.20 L (3.65-5.03) M/mm3 Hgb 10.5 L (11.8-15.2) gm/dl Hct 32.0 L (35.5-45.6) % Plt Count 84 L (140-440) K/mm3 Comprehensive Metabolic Panel 01/31/19 Range/Units 06:32 Sodium 134 L (137-145) mmol/L Potassium 5.2 H (3.6-5.0) mmol/L Chloride 98.4 (98-107) mmol/L Carbon Dioxide 22 (22-30) mmol/L BUN 50 H (9-20) mg/dL Creatinine 6.8 H (0.8-1.5) mg/dL Glucose 82 (75-100) mg/dL Calcium 8.6 (8.4-10.2) mg/dL
--- NOTE | 2019-01-31 13:44 | Procedure Note ---
Date of procedure: 01/31/19 Pre-op diagnosis: left pleural effusion Post-op diagnosis: same Procedure: US guided left thoracentesis Findings: moderate left pleural fluid Anesthesia: local Surgeon: TERRI CAZARES Estimated blood loss: none Pathology: list (120cc) Specimen disposition: to lab Condition: stable Disposition: floor
[2019-01-31] MEDS ORDERED: NACL 0.9 (PRIMING MACHINE ONLY DIALYSIS) MC ONE (15:51)
[2019-01-31 16:20] LABS: Total Cells Counted 100 /mm3
--- NOTE | 2019-01-31 17:07 | Progress Note ---
Assessment and Plan Assessment and plan: Patient is a 71 yo man with a history of recurrent left sided pleural effusion s/p thoracentesis, ESRD on HD, Afib on Eliquis, CHF with EF 10%, DVT, PTSD, AOCD, Right upper extermity of ulcer and hypertension who presented with chest pains. Chest Xray showed subclavian stents noted persistent moderate side effusion on the left with clear right lung. Acute on chronic systolic heart failure: increase ultrafiltration with HD, consult Cardiology Moderate size left pleural effusion: s/p thoracentesis ESRD on Hemodialysis: consulted Nephrology Afib on Eliquis: hold Eliquis for thoracentesis, ?hold Eliquis for LHC Chest pains with elevated troponin: Consulted Cardiology, stress test ordered, which was abnormal on Monday01/31/19, see Dr. Downing note for today Hypertension urgency: low salt diet, iv hydralazine prn History Interval history: Patient was seen and examined. Follow-up on current diagnosis CHF, pleural effusion. No overnight events reported to me. Patient denies any nausea/vomiting or severe headaches. Imaging, nursing note, chart, labs and old chart reviewed. Discussed with patient. Hospitalist Physical - Physical exam Narrative exam: Gen: WDWN, NAD, Awake, Alert, Orientated HEENT: NCAT, EOMI, PERRL, OP Clear Neck: supple, no adenopathy, no thyromegaly, no JVD CVS/Heart: irregular irregular, normal S1S2, pulses present bilaterally Chest/Lungs: diminised bs L>R base, Symmetrical chest expansion, good air entry bilaterally GI/Abdomen: soft, NTND, good bowel sounds, no guarding or rebound /Bladder: no suprapubic tenderness, no CVA or paraspinal tenderness Extermity/Skin: no c/c/e, no obvious rash MSK: FROM x 3, arm amputee Neuro: CN 2-12 grossly intact, no new focal deficits Psych: calm - Constitutional Vitals: Temp Pulse Resp BP Pulse Ox 94.7 F L 89 16 96/70 98 01/31/19 13:15 01/31/19 15:15 01/31/19 15:15 01/31/19 15:15 01/31/19 08:44 General appearance: Present: no acute distress, well-nourished Results - Labs CBC & Chem 7: 08/15/19 06:32 01/31/19 06:32 Labs: Laboratory Last Values WBC 2.9 K/mm3 (4.5-11.0) L 01/31/19 06:32 RBC 3.20 M/mm3 (3.65-5.03) L 01/31/19 06:32 Hgb 10.5 gm/dl (11.8-15.2) L 01/31/19 06:32 Hct 32.0 % (35.5-45.6) L 01/31/19 06:32 MCV 100 fl (84-94) H 01/31/19 06:32 MCH 33 pg (28-32) H 01/31/19 06:32 MCHC 33 % (32-34) 01/31/19 06:32 RDW 17.3 % (13.2-15.2) H 01/31/19 06:32 Plt Count 84 K/mm3 (140-440) L 01/31/19 06:32 Add Manual Diff Complete 01/30/19 00:18 Total Counted 100 01/30/19 00:18 Seg Neuts % (Manual) 54.0 % (40.0-70.0) 01/30/19 00:18 0 % 01/30/19 00:18 33.0 % (13.4-35.0) 01/30/19 00:18 Reactive Lymphs % (Man) 0 % 01/30/19 00:18 10.0 % (0.0-7.3) H 01/30/19 00:18 3.0 % (0.0-4.3) 01/30/19 00:18 0 % (0.0-1.8) 01/30/19 00:18 0 % 01/30/19 00:18 0 % 01/30/19 00:18 0 % 01/30/19 00:18 0 % 01/30/19 00:18 Nucleated RBC % Not Reportable 01/30/19 00:18 Seg Neutrophils # Man 1.9 K/mm3 (1.8-7.7) 01/30/19 00:18 Band Neutrophils # 0.0 K/mm3 01/30/19 00:18 1.2 K/mm3 (1.2-5.4) 01/30/19 00:18 Abs React Lymphs (Man) 0.0 K/mm3 01/30/19 00:18 0.4 K/mm3 (0.0-0.8) 01/30/19 00:18 0.1 K/mm3 (0.0-0.4) 01/30/19 00:18 0.0 K/mm3 (0.0-0.1) 01/30/19 00:18 0.0 K/mm3 01/30/19 00:18 0.0 K/mm3 01/30/19 00:18 0.0 K/mm3 01/30/19 00:18 Blast Cells # 0.0 K/mm3 01/30/19 00:18 WBC Morphology Not Reportable 01/30/19 00:18 Hypersegmented Neuts Not Reportable 01/30/19 00:18 Hyposegmented Neuts Not Reportable 01/30/19 00:18 Hypogranular Neuts Not Reportable 01/30/19 00:18 Not Reportable 01/30/19 00:18 Not Reportable 01/30/19 00:18 Not Reportable 01/30/19 00:18 Not Reportable 01/30/19 00:18 Not Reportable 01/30/19 00:18 Not Reportable 01/30/19 00:18 Appears decreased 01/30/19 00:18 Not Reportable 01/30/19 00:18 Plt Clumps, EDTA Not Reportable 01/30/19 00:18 Not Reportable 01/30/19 00:18 Not Reportable 01/30/19 00:18 Not Reportable 01/30/19 00:18 Plt Morphology Comment Not Reportable 01/30/19 00:18 RBC Morphology Not Reportable 01/30/19 00:18 Dimorphic RBCs Not Reportable 01/30/19 00:18 Not Reportable 01/30/19 00:18 Not Reportable 01/30/19 00:18 1+ 01/30/19 00:18 1+ 01/30/19 00:18 Not Reportable 01/30/19 00:18 Not Reportable 01/30/19 00:18 Not Reportable 01/30/19 00:18 Not Reportable 01/30/19 00:18 Not Reportable 01/30/19 00:18 Not Reportable 01/30/19 00:18 Not Reportable 01/30/19 00:18 Not Reportable 01/30/19 00:18 Not Reportable 01/30/19 00:18 Not Reportable 01/30/19 00:18 Not Reportable 01/30/19 00:18 Not Reportable 01/30/19 00:18 Not Reportable 01/30/19 00:18 Not Reportable 01/30/19 00:18 Not Reportable 01/30/19 00:18 Acanthocytes (Spur) Not Reportable 01/30/19 00:18 Rouleaux Not Reportable 01/30/19 00:18 Not Reportable 01/30/19 00:18 Not Reportable 01/30/19 00:18 Not Reportable 01/30/19 00:18 Not Reportable 01/30/19 00:18 Hem Pathologist Commnt No 01/30/19 00:18 PT 15.8 Sec. (12.2-14.9) H 01/31/19 09:24 INR 1.29 (0.87-1.13) H 01/31/19 09:24 APTT 28.6 Sec. (24.2-36.6) 01/30/19 00:18 Sodium 134 mmol/L (137-145) L 01/31/19 06:32 Potassium 5.2 mmol/L (3.6-5.0) H 01/31/19 06:32 Chloride 98.4 mmol/L (98-107) 01/31/19 06:32 Carbon Dioxide 22 mmol/L (22-30) 01/31/19 06:32 19 mmol/L 01/31/19 06:32 BUN 50 mg/dL (9-20) H 01/31/19 06:32 6.8 mg/dL (0.8-1.5) H 01/31/19 06:32 Estimated GFR 10 ml/min 01/31/19 06:32 7 % 01/31/19 06:32 Glucose 82 mg/dL (75-100) 01/31/19 06:32 POC Glucose 93 (70-105) 01/31/19 11:12 Calcium 8.6 mg/dL (8.4-10.2) 01/31/19 06:32 Magnesium 2.00 mg/dL (1.7-2.3) 01/30/19 00:18 0.290 ng/mL (0.00-0.029) H* 01/30/19 02:29 NT-Pro-B Natriuret Pep 40606 pg/mL (0-900) H 01/30/19 00:18 Triglycerides 66 mg/dL (2-149) 01/30/19 00:18 Cholesterol 80 mg/dL (50-199) 01/30/19 00:18 29 mg/dL (50-130) L 01/30/19 00:18 45 mg/dL (40-59) 01/30/19 00:18 1.77 % 01/30/19 00:18 Fluid Type Thoracentesis 01/30/19 Unknown Fluid Color Straw 01/30/19 Unknown Fluid Appearance Hazy 01/30/19 Unknown Fluid WBC 109 /mm3 01/30/19 Unknown Fluid RBC 210 /mm3 01/30/19 Unknown Fluid Seg Neutrophils 67 % 01/30/19 Unknown Fluid Lymphocytes 12.0 % 01/30/19 Unknown Fluid Reactive Lymphs 0 % 01/30/19 Unknown Fluid Monocytes 21.0 % 01/30/19 Unknown Fluid Eosinophils 0 % 01/30/19 Unknown Fluid Basophils 0 % 01/30/19 Unknown Active Medications - Current Medications Current Medications: Generic Name Dose Route Start Last Admin Trade Name Freq PRN Reason Stop Dose Admin Acetaminophen 650 mg 01/30/19 04:24 Tylenol PO Q4H PRN Pain MILD(1-3)/Fever >100.5/DOUGLAS Amlodipine Besylate 10 mg 01/30/19 10:00 01/31/19 11:47 Norvasc PO Not Given DAILY [facility] Atorvastatin Calcium 40 mg 01/30/19 22:00 01/30/19 21:47 Lipitor PO 40 mg QHS BEAN Administration Carvedilol 25 mg 01/30/19 10:00 01/31/19 10:55 Coreg PO 25 mg BID BEAN Administration Diphenhydramine HCl 50 mg 01/30/19 04:22 Benadryl PO Q3D PRN Itching Epoetin Prashant 10,000 unit 01/31/19 10:09 01/31/19 15:35 Procrit SUB-Q 10,000 unit KATERYNA PRN Administration hemodialysis Famotidine 10 mg 01/30/19 10:00 01/31/19 10:55 Pepcid PO 10 mg BID BEAN Administration Gabapentin 300 mg 01/30/19 04:22 01/30/19 14:22 Neurontin PO 300 mg Q12H PRN Administration Pain , Severe (7-10) Hydralazine HCl 50 mg 01/30/19 15:00 01/31/19 11:47 Apresoline PO Not Given BID BEAN Hydralazine HCl 10 mg 01/30/19 04:26 Apresoline IV Q4HR PRN BP >160/100 Sodium Chloride 100 mls @ 999 mls/hr 01/31/19 10:09 Nacl 0.9% IV KATERYNA PRN Hypotension Lisinopril 5 mg 01/30/19 13:00 01/31/19 10:55 Zestril PO 5 mg QDAY BEAN Administration Morphine Sulfate 4 mg 01/30/19 00:02 01/31/19 08:54 Morphine IV 4 mg Q4H PRN Administration Pain , Severe (7-10) Nitroglycerin 0.4 mg 01/30/19 00:02 01/30/19 03:29 Nitrostat SL 0.4 mg .Q5MIN PRN Administration Chest Pain Ondansetron HCl 4 mg 01/30/19 04:24 Zofran IV Q8H PRN Nausea And Vomiting Oxycodone HCl 10 mg 01/30/19 04:22 01/31/19 10:55 Roxicodone PO 10 mg Q6H PRN Administration Pain, Moderate (4-6) Sodium Chloride 10 ml 01/30/19 10:00 01/31/19 10:57 Sodium Chloride Flush Syringe 10 Ml IV 10 ml BID BEAN Administration Sodium Chloride 10 ml 01/30/19 04:24 Sodium Chloride Flush Syringe 10 Ml IV PRN PRN LINE FLUSH Tramadol HCl 50 mg 01/30/19 04:22 Ultram PO Q4H PRN Pain (4-6) Nutrition/Malnutrition Assess - Dietary Evaluation Nutrition/Malnutrition Findings: Nutrition Notes Start: 01/30/19 17:12 Freq: Status: Active Protocol: Document 01/30/19 17:13 RM (Rec: 01/30/19 17:20 RM [id number]) Nutrition Notes Need for Assessment generated from: Low BMI Initial or Follow up Assessment Current Diagnosis Heart Failure Other Pertinent Diagnosis ESRD on HD, PTSD Current Diet NPO Labs/Tests K 4.8 Pertinent Medications Reviewed Height 5 ft 10 in Weight 56.4 kg [place] Body Weight (kg) 75.45 BMI 17.8 Subjective/Other Information Screened for low BMI. Pt not in room during first visit. Pt using bedpan during second visit. Pt is known to me from previous admissions. Pt has Hx of being noncompliant w/renal diet and does not like Nepro. Noted temporal wasting. Burn Absent Trauma Absent #1 Nutrition Diagnosis Malnutrition Etiology decreased appetite As Evidenced by Signs and Symptoms BMI 17.8, temporal wasting Is patient on ventilator? No Is Patient Ambulatory and/or Out of Bed Yes REE-([place]-St. Jeor-ambulatory/OOB) [ 1729.325 NUTR.[id number]] Kcal/Kg value to use for calculation 36 Approximate Energy Requirements Using 2030 kcal/Kg Calculation Used for Recommendations Kcal/kg Additional Notes Protein Needs: 68-85g (1.2-1. 5g/kg) Fluid Needs: 1 ml/kcal Nutrition Intervention Change Diet Order: Advance diet when medically able Add Supplement/Snack (indicate name/kcal Ensure Clear 1 daily (M/W/F) /protein ) once diet advanced Provides kCal: 240 Provides Protein (gm) 8 Goal #1 Diet advancement Anticipated Discharge Needs: Renal diet Follow-Up By: 02/01/19 Additional Comments Follow for diet advancement, PO and ONS intakes
--- NOTE | 2019-01-31 21:57 | XRay Report ---
CHEST 1 VIEW INDICATION / CLINICAL INFORMATION: left pleural effusion, recent thora. COMPARISON: 01/30/2019 FINDINGS: SUPPORT DEVICES: None. HEART / MEDIASTINUM: No recent change. LUNGS / PLEURA: Decreasing size of the left-sided pleural effusion in the interim. Signer Name: Judah Mendoza MD Signed: 01/31/2019 9:53 PM Workstation Name: [id number]
[2019-02-01] MEDS: MORPHINE IV PRN ×3 (01:39→14:29)
--- NOTE | 2019-02-01 01:44 | Treadmill Report ---
THALLIUM STRESS TEST LEFT VENTRICLE: Left ventricular chamber size is within normal spread. Perfusion study demonstrates fairly homogeneous uptake of the tracer in all segments, a small fixed basal anterior defect of mild intensities of uncertain significance. Gated analysis reports severe left ventricular systolic dysfunction with ejection fraction 28%. CONCLUSION: Evidence of an underlying cardiomyopathy with severe left ventricular systolic dysfunction. Perfusion study shows homogeneous uptake of tracer in all segments, with a small basal anterior defect of uncertain significance. There is no ischemia demonstrated on this study. Clinical correlation is recommended and echocardiographic reassessment of left ventricular chamber size and systolic function. JOB# [id number] CA/NTS
--- NOTE | 2019-02-01 08:29 | Ultrasound Report ---
Ultrasound-guided thoracentesis HISTORY: Left pleural effusion. COMPARISON: None PROCEDURE: The risks (including but not limited to bleeding, infection, and pneumothorax) and benefi ts were explained to the patient and informed consent was obtained. A time out procedure was perform ed. Ultrasound was used to evaluate the left pleural effusion and locate the optimal site for needle entr y. Once the skin was marked, the procedure site was prepped and draped in the usual sterile fashion and lidocaine was used for local anesthesia. A skin ezequiel was made and a 5 thoracentesis catheter was placed. The patient was monitored closely throughout the procedure, and a total of 700 mL of clear yellow fluid was aspirated. Samples were sent to the lab for further evaluation per the primary clin icians orders. The patient tolerated the procedure well with no complications. A post-procedure chest x-ray was imm ediately ordered. IMPRESSION: Successful ultrasound-guided left thoracentesis as described. Signer Name: Piero Lang Jr, MD Signed: 01/31/2019 1:40 PM Workstation Name: [id number]
--- NOTE | 2019-02-01 09:57 | Progress Note ---
Assessment and Plan Recurrent Left pleural effusion s/p thoracentesis Chronic systolic heart failure Chest pain, atypical s/t to left pleural effusion DM type II PVD s/p left arm amputation Hypertension ESRD on hemodialysis Thrombocytopenia, chronic Hx of Nonischemic CMP EF 25-30% by echo this admission Non-obstructive CAD [facility] 01/2017 revealed non-obstructive, single vessel disease of the proximal LAD recommended for medical therapy. Permanent Atrial fibrillation rate controlled with metoprolol on low dose eliquis as an outpatient Recommendations: Continue medical therapy for nonischemic cardiomyopathy and chronic systolic heart failure. There is no indication for any further cardiac ischemic evaluation. Conservative cardiac management. Subjective Date of service: 02/01/19 Interval history: Patient complains of generalized pain. No distress noted. Objective Vital Signs Temp Pulse Pulse Resp Resp BP Pulse Ox 02/01/19 08:04 98.6 F 82 16 110/83 100 02/01/19 03:59 98.2 F 02/01/19 03:57 90 16 106/81 98 02/01/19 02:09 18 02/01/19 01:39 18 01/31/19 23:28 97.7 F 01/31/19 23:26 93 H 20 126/77 93 01/31/19 22:15 81 18 94 01/31/19 22:14 81 115/75 01/31/19 22:13 81 115/75 01/31/19 21:12 18 01/31/19 21:00 18 01/31/19 20:42 18 01/31/19 20:05 97.6 F 01/31/19 20:04 81 20 115/75 94 01/31/19 19:32 86 01/31/19 17:08 122.0 F H 79 18 122/89 100 01/31/19 15:15 89 16 96/70 01/31/19 15:00 62 89/60 01/31/19 14:45 79 131/62 01/31/19 14:30 64 93/56 01/31/19 14:15 58 L 90/54 01/31/19 14:00 68 103/53 01/31/19 13:45 82 101/62 01/31/19 13:30 80 114/63 01/31/19 13:15 94.7 F L 78 16 121/80 01/31/19 10:00 78 - Physical Examination General: No Apparent Distress HEENT: Positive: PERRL Neck: Positive: neck supple, trachea midline Cardiac: Positive: irregularly irregular Lungs: Positive: Decreased Breath Sounds Neuro: Positive: Grossly Intact - Labs and Meds Coagulation 01/31/19 Range/Units 09:24 PT 15.8 H (12.2-14.9) Sec. INR 1.29 H (0.87-1.13)
[2019-02-01] MEDS: APRESOLINE PO SCH ×2 (10:13→22:36)
[2019-02-01] MEDS: NORVASC PO SCH (10:14)
[2019-02-01] MEDS: ROXICODONE PO PRN ×2 (10:14→22:36)
[2019-02-01] MEDS: COREG PO SCH ×2 (10:14→22:36)
[2019-02-01] MEDS: ZESTRIL PO SCH (10:15)
[2019-02-01] MEDS: PEPCID PO SCH ×2 (10:15→22:36)
[2019-02-01] MEDS: SODIUM CHLORIDE FLUSH SYRINGE 10 ML IV SCH ×2 (10:15→22:38)
--- NOTE | 2019-02-01 10:47 | Progress Note ---
Assessment and Plan 1. ESRD: Continue hemodialysis three times a week, TTS schedule. Last dialyzed yesterday. 2. FEN: Monitor. 3. Chest pain: Followed by Cards. 4. A.fib: Rate controlled. 5. DM type 2. 6. Chronic L sided pleural effusion. 7. Anemia: Epogen if needed. 8. PAD. Subjective Date of service: 02/01/19 Interval history: Patient was seen and examined at the bedside. Doing ok. Objective - Vital Signs Vital signs: Vital Signs - 12hr 01/31/19 01/31/19 02/01/19 23:26 23:28 01:39 Temperature 97.7 F Pulse Rate 93 H Respiratory 20 18 Rate Blood Pressure 126/77 O2 Sat by Pulse 93 Oximetry 02/01/19 02/01/19 02/01/19 02:09 03:57 03:59 Temperature 98.2 F Pulse Rate 90 Respiratory 18 16 Rate Blood Pressure 106/81 O2 Sat by Pulse 98 Oximetry 02/01/19 02/01/19 02/01/19 08:04 10:13 10:14 Temperature 98.6 F Pulse Rate 82 82 82 Respiratory 16 Rate Blood Pressure 110/83 110/83 110/83 O2 Sat by Pulse 100 Oximetry 02/01/19 10:15 Temperature Pulse Rate 82 Respiratory Rate Blood Pressure 110/83 O2 Sat by Pulse Oximetry - General Appearance General appearance: well-developed, appears stated age, other (no distress, R IJ tunnel catheter) EENT: ATNC, PERRL, hearing intact, vision intact Neck: supple Respiratory: Present: Clear to Ascultation Cardiology: irregularly irregular, S1S2, no murmurs Gastrointestinal: normoactive bowel sounds, no tenderness, no distended Integumentary: no rash Neurologic: no focal deficit, no asterixis, alert and oriented x3 Musculoskeletal: other (L forearm amputation, no edema) - Lab 01/31/19 06:32 01/31/19 06:32 Most recent lab results Calcium 8.6 mg/dL (8.4-10.2) 01/31/19 06:32 Magnesium 2.00 mg/dL (1.7-2.3) 01/30/19 00:18 Medications & Allergies - Medications Allergies/Adverse Reactions: Allergies aspirin Allergy (Verified 01/02/19 14:41) Unknown stomach cramps pork derived (porcine) Allergy (Verified 01/02/19 14:41) Rash venom-honey bee [bee venom (honey bee)] Allergy (Verified 01/02/19 14:41) Anaphylaxis Pork/Porcine Containing Products Adverse Reaction (Severe, Verified 01/02/19 14:41) Nausea,VOMITING Home Medications: Home Medications Medication Instructions Recorded Confirmed Last Taken Type Apixaban [Eliquis] 2.5 mg PO Q12HR #60 tablet 12/29/18 01/30/19 01/01/19 Rx AtorvaSTATin [Lipitor] 40 mg PO QHS #30 tablet 12/29/18 01/30/19 01/01/19 Rx Famotidine [Pepcid] 10 mg PO BID #15 tablet 12/29/18 01/30/19 01/01/19 Rx amLODIPine [Norvasc] 10 mg PO DAILY #30 tablet 12/29/18 01/30/19 01/01/19 Rx hydrALAZINE [Apresoline TAB] 50 mg PO BID #60 tablet 12/29/18 01/30/19 01/01/19 Rx Carvedilol [Coreg] 25 mg PO BID #60 tablet 01/17/19 01/30/19 Unknown Rx traMADol [Ultram 50 MG tab] 50 mg PO Q4HR PRN #10 tablet 01/21/19 01/30/19 Unknown Rx Oxycodone HCl [oxyCODONE] 10 mg PO Q6H PRN #10 tablet 01/23/19 01/30/19 Unknown Rx Gabapentin [Neurontin] 300 mg PO Q12H PRN 01/30/19 01/30/19 Unknown History Insulin Regular, Human [HumuLIN R] 5 unit SQ QAM 01/30/19 01/30/19 1 Day Ago History ~01/29/19 diphenhydrAMINE [Benadryl CAP] 50 mg PO Q3D PRN 01/30/19 01/30/19 Unknown History Acetaminophen [Acetaminophen TAB] 2 tab PO Q4H PRN #15 tablet 02/02/19 Unknown Rx Apixaban [Eliquis] 2.5 mg PO Q12HR tablet 02/02/19 Unknown Rx Epoetin Prashant 10,000 Unit [Procrit] 10,000 unit SUB-Q KATERYNA PRN vial 02/02/19 Unknown Rx Lisinopril [Zestril TAB] 5 mg PO QDAY #30 tablet 02/02/19 Unknown Rx Vancomycin HCl 125 mg PO QID 10 Days capsule 02/02/19 Unknown Rx Active Medications: Generic Name Dose Route Start Last Admin Trade Name Freq PRN Reason Stop Dose Admin Acetaminophen 650 mg 01/30/19 04:24 Tylenol PO Q4H PRN Pain MILD(1-3)/Fever >100.5/DOUGLAS Amlodipine Besylate 10 mg 01/30/19 10:00 02/01/19 10:14 Norvasc PO 10 mg DAILY BEAN Administration Apixaban 2.5 mg 02/01/19 22:00 Eliquis PO Q12HR [facility] Protocol Atorvastatin Calcium 40 mg 01/30/19 22:00 01/31/19 22:13 Lipitor PO 40 mg QHS BEAN Administration Carvedilol 25 mg 01/30/19 10:00 02/01/19 10:14 Coreg PO 25 mg BID BEAN Administration Diphenhydramine HCl 50 mg 01/30/19 04:22 Benadryl PO Q3D PRN Itching Epoetin Prashant 10,000 unit 01/31/19 10:09 01/31/19 15:35 Procrit SUB-Q 10,000 unit KATERYNA PRN Administration hemodialysis Famotidine 10 mg 01/30/19 10:00 02/01/19 10:15 Pepcid PO 10 mg BID BEAN Administration Gabapentin 300 mg 01/30/19 04:22 01/30/19 14:22 Neurontin PO 300 mg Q12H PRN Administration Pain , Severe (7-10) Hydralazine HCl 50 mg 01/30/19 15:00 02/01/19 10:13 Apresoline PO 50 mg BID BEAN Administration Hydralazine HCl 10 mg 01/30/19 04:26 Apresoline IV Q4HR PRN BP >160/100 Sodium Chloride 100 mls @ 999 mls/hr 01/31/19 10:09 Nacl 0.9% IV KATERYNA PRN Hypotension Lisinopril 5 mg 01/30/19 13:00 02/01/19 10:15 Zestril PO 5 mg QDAY BEAN Administration Morphine Sulfate 4 mg 01/30/19 00:02 02/01/19 10:20 Morphine IV 4 mg Q4H PRN Administration Pain , Severe (7-10) Nitroglycerin 0.4 mg 01/30/19 00:02 01/30/19 03:29 Nitrostat SL 0.4 mg .Q5MIN PRN Administration Chest Pain Ondansetron HCl 4 mg 01/30/19 04:24 Zofran IV Q8H PRN Nausea And Vomiting Oxycodone HCl 10 mg 01/30/19 04:22 02/01/19 10:14 Roxicodone PO 10 mg Q6H PRN Administration Pain, Moderate (4-6) Sodium Chloride 10 ml 01/30/19 10:00 02/01/19 10:15 Sodium Chloride Flush Syringe 10 Ml IV 10 ml BID BEAN Administration Sodium Chloride 10 ml 01/30/19 04:24 Sodium Chloride Flush Syringe 10 Ml IV PRN PRN LINE FLUSH Tramadol HCl 50 mg 01/30/19 04:22 Ultram PO Q4H PRN Pain (4-6)
--- NOTE | 2019-02-01 13:52 | Progress Note ---
Assessment and Plan Assessment and plan: Patient is a 71 yo man with a history of recurrent left sided pleural effusion s/p thoracentesis, ESRD on HD, Afib on Eliquis, CHF with EF 10%, DVT, PTSD, AOCD, Right upper extermity of ulcer and hypertension who presented with chest pains. Chest Xray showed subclavian stents noted persistent moderate side effusion on the left with clear right lung. Acute on chronic systolic heart failure: increase ultrafiltration with HD, consult Cardiology Moderate size left pleural effusion: s/p thoracentesis, I have asked Dr. Nicole to look out for the cytology ESRD on Hemodialysis: consulted Nephrology Afib on Eliquis: hold Eliquis for thoracentesis, ?hold Eliquis for LHC Chest pains with elevated troponin: Consulted Cardiology, stress test ordered, which was abnormal on Monday01/31/19, see Dr. Downing note for today Hypertension urgency: low salt diet, iv hydralazine prn Diarrhea, appears chronic, he has intermittent diarrhea: c. diffe ordered overnight under my name. Disposition: d/c home if c.diffe is negative. History Interval history: Patient was seen and examined. Follow-up on current diagnosis CHF, pleural effusion. No overnight events reported to me. Patient denies any nausea/vomiting or severe headaches. Imaging, nursing note, chart, labs and old chart reviewed. Discussed with patient. Hospitalist Physical - Physical exam Narrative exam: Gen: WDWN, NAD, Awake, Alert, Orientated HEENT: NCAT, EOMI, PERRL, OP Clear Neck: supple, no adenopathy, no thyromegaly, no JVD CVS/Heart: irregular irregular, normal S1S2, pulses present bilaterally Chest/Lungs: diminised bs L>R base, Symmetrical chest expansion, good air entry bilaterally GI/Abdomen: soft, NTND, good bowel sounds, no guarding or rebound /Bladder: no suprapubic tenderness, no CVA or paraspinal tenderness Extermity/Skin: no c/c/e, no obvious rash MSK: FROM x 3, arm amputee Neuro: CN 2-12 grossly intact, no new focal deficits Psych: calm - Constitutional Vitals: Temp Pulse Resp BP Pulse Ox 98.6 F 82 16 110/83 100 02/01/19 08:04 02/01/19 10:15 02/01/19 08:04 02/01/19 10:15 02/01/19 08:04 General appearance: Present: no acute distress, well-nourished Results - Labs CBC & Chem 7: 01/31/19 06:32 01/31/19 06:32 Labs: Laboratory Last Values WBC 2.9 K/mm3 (4.5-11.0) L 01/31/19 06:32 RBC 3.20 M/mm3 (3.65-5.03) L 01/31/19 06:32 Hgb 10.5 gm/dl (11.8-15.2) L 01/31/19 06:32 Hct 32.0 % (35.5-45.6) L 01/31/19 06:32 MCV 100 fl (84-94) H 01/31/19 06:32 MCH 33 pg (28-32) H 01/31/19 06:32 MCHC 33 % (32-34) 01/31/19 06:32 RDW 17.3 % (13.2-15.2) H 01/31/19 06:32 Plt Count 84 K/mm3 (140-440) L 01/31/19 06:32 Add Manual Diff Complete 01/30/19 00:18 Total Counted 100 01/30/19 00:18 Seg Neuts % (Manual) 54.0 % (40.0-70.0) 01/30/19 00:18 0 % 01/30/19 00:18 33.0 % (13.4-35.0) 01/30/19 00:18 Reactive Lymphs % (Man) 0 % 01/30/19 00:18 10.0 % (0.0-7.3) H 01/30/19 00:18 3.0 % (0.0-4.3) 01/30/19 00:18 0 % (0.0-1.8) 01/30/19 00:18 0 % 01/30/19 00:18 0 % 01/30/19 00:18 0 % 01/30/19 00:18 0 % 01/30/19 00:18 Nucleated RBC % Not Reportable 01/30/19 00:18 Seg Neutrophils # Man 1.9 K/mm3 (1.8-7.7) 01/30/19 00:18 Band Neutrophils # 0.0 K/mm3 01/30/19 00:18 1.2 K/mm3 (1.2-5.4) 01/30/19 00:18 Abs React Lymphs (Man) 0.0 K/mm3 01/30/19 00:18 0.4 K/mm3 (0.0-0.8) 01/30/19 00:18 0.1 K/mm3 (0.0-0.4) 01/30/19 00:18 0.0 K/mm3 (0.0-0.1) 01/30/19 00:18 0.0 K/mm3 01/30/19 00:18 0.0 K/mm3 01/30/19 00:18 0.0 K/mm3 01/30/19 00:18 Blast Cells # 0.0 K/mm3 01/30/19 00:18 WBC Morphology Not Reportable 01/30/19 00:18 Hypersegmented Neuts Not Reportable 01/30/19 00:18 Hyposegmented Neuts Not Reportable 01/30/19 00:18 Hypogranular Neuts Not Reportable 01/30/19 00:18 Not Reportable 01/30/19 00:18 Not Reportable 01/30/19 00:18 Not Reportable 01/30/19 00:18 Not Reportable 01/30/19 00:18 Not Reportable 01/30/19 00:18 Not Reportable 01/30/19 00:18 Appears decreased 01/30/19 00:18 Not Reportable 01/30/19 00:18 Plt Clumps, EDTA Not Reportable 01/30/19 00:18 Not Reportable 01/30/19 00:18 Not Reportable 01/30/19 00:18 Not Reportable 01/30/19 00:18 Plt Morphology Comment Not Reportable 01/30/19 00:18 RBC Morphology Not Reportable 01/30/19 00:18 Dimorphic RBCs Not Reportable 01/30/19 00:18 Not Reportable 01/30/19 00:18 Not Reportable 01/30/19 00:18 1+ 01/30/19 00:18 1+ 01/30/19 00:18 Not Reportable 01/30/19 00:18 Not Reportable 01/30/19 00:18 Not Reportable 01/30/19 00:18 Not Reportable 01/30/19 00:18 Not Reportable 01/30/19 00:18 Not Reportable 01/30/19 00:18 Not Reportable 01/30/19 00:18 Not Reportable 01/30/19 00:18 Not Reportable 01/30/19 00:18 Not Reportable 01/30/19 00:18 Not Reportable 01/30/19 00:18 Not Reportable 01/30/19 00:18 Not Reportable 01/30/19 00:18 Not Reportable 01/30/19 00:18 Not Reportable 01/30/19 00:18 Acanthocytes (Spur) Not Reportable 01/30/19 00:18 Rouleaux Not Reportable 01/30/19 00:18 Not Reportable 01/30/19 00:18 Not Reportable 01/30/19 00:18 Not Reportable 01/30/19 00:18 Not Reportable 01/30/19 00:18 Hem Pathologist Commnt No 01/30/19 00:18 PT 15.8 Sec. (12.2-14.9) H 01/31/19 09:24 INR 1.29 (0.87-1.13) H 01/31/19 09:24 APTT 28.6 Sec. (24.2-36.6) 01/30/19 00:18 Sodium 134 mmol/L (137-145) L 01/31/19 06:32 Potassium 5.2 mmol/L (3.6-5.0) H 01/31/19 06:32 Chloride 98.4 mmol/L (98-107) 01/31/19 06:32 Carbon Dioxide 22 mmol/L (22-30) 01/31/19 06:32 19 mmol/L 01/31/19 06:32 BUN 50 mg/dL (9-20) H 01/31/19 06:32 6.8 mg/dL (0.8-1.5) H 01/31/19 06:32 Estimated GFR 10 ml/min 01/31/19 06:32 7 % 01/31/19 06:32 Glucose 82 mg/dL (75-100) 01/31/19 06:32 POC Glucose 127 (70-105) H 01/31/19 16:15 Calcium 8.6 mg/dL (8.4-10.2) 01/31/19 06:32 Magnesium 2.00 mg/dL (1.7-2.3) 01/30/19 00:18 0.290 ng/mL (0.00-0.029) H* 01/30/19 02:29 NT-Pro-B Natriuret Pep 85670 pg/mL (0-900) H 01/30/19 00:18 Triglycerides 66 mg/dL (2-149) 01/30/19 00:18 Cholesterol 80 mg/dL (50-199) 01/30/19 00:18 29 mg/dL (50-130) L 01/30/19 00:18 45 mg/dL (40-59) 01/30/19 00:18 1.77 % 01/30/19 00:18 Fluid Type Thoracentesis 01/30/19 Unknown Fluid Color Straw 01/30/19 Unknown Fluid Appearance Hazy 01/30/19 Unknown Fluid WBC 109 /mm3 01/30/19 Unknown Fluid RBC 210 /mm3 01/30/19 Unknown Fluid Seg Neutrophils 67 % 01/30/19 Unknown Fluid Lymphocytes 12.0 % 01/30/19 Unknown Fluid Reactive Lymphs 0 % 01/30/19 Unknown Fluid Monocytes 21.0 % 01/30/19 Unknown Fluid Eosinophils 0 % 01/30/19 Unknown Fluid Basophils 0 % 01/30/19 Unknown Active Medications - Current Medications Current Medications: Generic Name Dose Route Start Last Admin Trade Name Freq PRN Reason Stop Dose Admin Acetaminophen 650 mg 01/30/19 04:24 Tylenol PO Q4H PRN Pain MILD(1-3)/Fever >100.5/DOUGLAS Amlodipine Besylate 10 mg 01/30/19 10:00 02/01/19 10:14 Norvasc PO 10 mg DAILY BEAN Administration Apixaban 2.5 mg 02/01/19 22:00 Eliquis PO Q12HR BEAN Protocol Atorvastatin Calcium 40 mg 01/30/19 22:00 01/31/19 22:13 Lipitor PO 40 mg QHS BEAN Administration Carvedilol 25 mg 01/30/19 10:00 02/01/19 10:14 Coreg PO 25 mg BID BEAN Administration Diphenhydramine HCl 50 mg 01/30/19 04:22 Benadryl PO Q3D PRN Itching Epoetin Prashant 10,000 unit 01/31/19 10:09 01/31/19 15:35 Procrit SUB-Q 10,000 unit KATERYNA PRN Administration hemodialysis Famotidine 10 mg 01/30/19 10:00 02/01/19 10:15 Pepcid PO 10 mg BID BEAN Administration Gabapentin 300 mg 01/30/19 04:22 01/30/19 14:22 Neurontin PO 300 mg Q12H PRN Administration Pain , Severe (7-10) Hydralazine HCl 50 mg 01/30/19 15:00 02/01/19 10:13 Apresoline PO 50 mg BID BEAN Administration Hydralazine HCl 10 mg 01/30/19 04:26 Apresoline IV Q4HR PRN BP >160/100 Sodium Chloride 100 mls @ 999 mls/hr 01/31/19 10:09 Nacl 0.9% IV KATERYNA PRN Hypotension Lisinopril 5 mg 01/30/19 13:00 02/01/19 10:15 Zestril PO 5 mg QDAY BEAN Administration Morphine Sulfate 4 mg 01/30/19 00:02 02/01/19 10:20 Morphine IV 4 mg Q4H PRN Administration Pain , Severe (7-10) Nitroglycerin 0.4 mg 01/30/19 00:02 01/30/19 03:29 Nitrostat SL 0.4 mg .Q5MIN PRN Administration Chest Pain Ondansetron HCl 4 mg 01/30/19 04:24 Zofran IV Q8H PRN Nausea And Vomiting Oxycodone HCl 10 mg 01/30/19 04:22 02/01/19 10:14 Roxicodone PO 10 mg Q6H PRN Administration Pain, Moderate (4-6) Sodium Chloride 10 ml 01/30/19 10:00 02/01/19 10:15 Sodium Chloride Flush Syringe 10 Ml IV 10 ml BID BEAN Administration Sodium Chloride 10 ml 01/30/19 04:24 Sodium Chloride Flush Syringe 10 Ml IV PRN PRN LINE FLUSH Tramadol HCl 50 mg 01/30/19 04:22 Ultram PO Q4H PRN Pain (4-6) Nutrition/Malnutrition Assess - Dietary Evaluation Nutrition/Malnutrition Findings: Nutrition Notes Start: 01/30/19 17:12 Freq: Status: Active Protocol: Document 01/30/19 17:13 RM (Rec: 01/30/19 17:20 RM [id number]) Nutrition Notes Need for Assessment generated from: Low BMI Initial or Follow up Assessment Current Diagnosis Heart Failure Other Pertinent Diagnosis ESRD on HD, PTSD Current Diet NPO Labs/Tests K 4.8 Pertinent Medications Reviewed Height 5 ft 10 in Weight 56.4 kg Geraldine Body Weight (kg) 75.45 BMI 17.8 Subjective/Other Information Screened for low BMI. Pt not in room during first visit. Pt using bedpan during second visit. Pt is known to me from previous admissions. Pt has Hx of being noncompliant w/renal diet and does not like Nepro. Noted temporal wasting. Burn Absent Trauma Absent #1 Nutrition Diagnosis Malnutrition Etiology decreased appetite As Evidenced by Signs and Symptoms BMI 17.8, temporal wasting Is patient on ventilator? No Is Patient Ambulatory and/or Out of Bed Yes REE-(Price-St. Jeor-ambulatory/OOB) [ 1729.325 NUTR.MSJOOB] Kcal/Kg value to use for calculation 36 Approximate Energy Requirements Using 2030 kcal/Kg Calculation Used for Recommendations Kcal/kg Additional Notes Protein Needs: 68-85g (1.2-1. 5g/kg) Fluid Needs: 1 ml/kcal Nutrition Intervention Change Diet Order: Advance diet when medically able Add Supplement/Snack (indicate name/kcal Ensure Clear 1 daily (M/W/F) /protein ) once diet advanced Provides kCal: 240 Provides Protein (gm) 8 Goal #1 Diet advancement Anticipated Discharge Needs: Renal diet Follow-Up By: 02/01/19 Additional Comments Follow for diet advancement, PO and ONS intakes
--- NOTE | 2019-02-01 14:02 | Discharge Summary ---
Providers - Providers Date of Admission: 01/30/19 14:13 Date of discharge: 02/02/19 Attending physician: JEAN RIDDLE 01/30/19 Consult to Cardiac Rehabilitation [CONS] Routine Reason For Exam: Phase I 01/30/19 04:24 Consult to Physician [CONS] Routine Comment: Consulting Provider: COLLEEN SAGE Physician Instructions: Reason For Exam: chest pain 01/30/19 04:26 Consult to Physician [CONS] Routine Comment: Consulting Provider: LYRIC DIAMOND Physician Instructions: Reason For Exam: esrd 01/31/19 10:09 Midline [Consult to PICC Line RN] [CONS] Stat Reason For Exam: need IV access Type Line:: Midline Primary care physician: ARSLAN PIMENTEL Hospitalization Condition: Fair Hospital course: Patient is a 71 yo man with a history of recurrent left sided pleural effusion s/p thoracentesis almost every 2 weeks, ESRD on HD, Afib on Eliquis, CHF with EF 10%, DVT, PTSD, AOCD, Right upper extermity of ulcer and hypertension who presented with chest pains. Chest Xray showed subclavian stents noted persistent moderate side effusion on the left with clear right lung. Acute on chronic systolic heart failure: increase ultrafiltration with HD, no lasix due to ESRD Recurrent Moderate size left pleural effusion: s/p thoracentesis, I have asked Dr. Diamond to look out for the cytology ESRD on Hemodialysis: consulted Nephrology Afib on Eliquis: hold Eliquis for thoracentesis, resume Eliquis, no C Chest pains with elevated troponin, abnormal stress, suspect Angina: Consulted Cardiology, input noted, no Cardiac intervention. Hypertension urgency: low salt diet, iv hydralazine prn Diarrhea due to Clostriodioides difficile colitis infection use oral Vancomycin 125 mg po QID x 10 days Disposition: DC-01 TO HOME OR SELFCARE Time spent for discharge: 35 mintues Core Measure Documentation - Palliative Care Palliative Care/ Comfort Measures: Not Applicable - Core Measures Any of the following diagnoses?: heart failure - VTE Discharge Requirements Deep Vein Thrombosis/Pulmonary Embolism Present on Admission: No Has pt received <5 days of overlap therapy or INR<2.0: No Anticoagulant overlap therapy prescribed at discharge: No Contraindication No Overlap Therapy order at DC: Not Indicated - Heart Failure Discharge Requirements BEATRICE/ARB for LVSD if EF <40%: Yes Beta jett at discharge: Yes Exam - Physical Exam Narrative exam: Gen: WDWN, NAD, Awake, Alert, Orientated HEENT: NCAT, EOMI, PERRL, OP Clear Neck: supple, no adenopathy, no thyromegaly, no JVD CVS/Heart: irregular irregular, normal S1S2, pulses present bilaterally Chest/Lungs: diminised bs L>R base, Symmetrical chest expansion, good air entry bilaterally GI/Abdomen: soft, NTND, good bowel sounds, no guarding or rebound /Bladder: no suprapubic tenderness, no CVA or paraspinal tenderness Extermity/Skin: no c/c/e, no obvious rash MSK: FROM x 3, arm amputee Neuro: CN 2-12 grossly intact, no new focal deficits Psych: calm - Constitutional Vitals: Temp Pulse Resp BP Pulse Ox 98.6 F 82 16 110/83 100 02/01/19 08:04 02/01/19 10:15 02/01/19 08:04 02/01/19 10:15 02/01/19 08:04 Plan Activity: other (no strenous activity) Diet: renal Additional Instructions: Prevent contact with stool, wash hands after touching to prevent spread of C. diffe. Follow up with: JUANITA ROCKWELL MD [Referring] - 3-5 Days ROXANN LEONE MD [Staff Physician] - 7 Days LYRIC DIAMOND MD [Staff Physician] - 7 Days COLLEEN SAGE MD [Staff Physician] - 7 Days Prescriptions: Vancomycin HCl 125 mg PO QID 10 Days capsule
[2019-02-01] MEDS ORDERED: FLAGYL 500 MG/100 ML 500 MG/100 ML BAG IV SCH (18:00)
[2019-02-01] MEDS: VANCOMYCIN PO PO SCH ×2 (19:37→23:12)
[2019-02-01] MEDS: ELIQUIS PO SCH (22:36)
--- NOTE | 2019-02-01 23:39 | Progress Note ---
Assessment and Plan Recurrent Left pleural effusion s/p thoracentesis Chronic systolic heart failure - currently euvolemic. Continue appropriate medical therapy DM type II - management per primary. on statin. PVD s/p left arm amputation Hypertension ESRD on hemodialysis Thrombocytopenia, chronic Hx of Nonischemic CMP - continue medical therapy with BB and ACEi. currently euvolemic. Volume removal via dialysis. EF 25-30% by echo this admission Non-obstructive CAD - continue medical therapy with BB, ASA, and statin [facility] 01/2017 revealed non-obstructive, single vessel disease of the proximal LAD recommended for medical therapy. Permanent Atrial fibrillation rate controlled with metoprolol on low dose eliquis as an outpatient Subjective Date of service: 02/02/19 Interval history: No acute events. Resting comfortably. No chest pain or SOB. Objective Vital Signs Temp Pulse Pulse Resp BP BP Pulse Ox 02/01/19 22:36 72 18 122/78 02/01/19 20:31 90 18 94 02/01/19 19:00 97.6 F 72 17 122/78 96 02/01/19 14:59 18 02/01/19 12:15 97.7 F 82 16 117/65 97 02/01/19 10:15 82 110/83 02/01/19 10:14 82 110/83 02/01/19 10:13 82 110/83 02/01/19 08:04 98.6 F 82 16 110/83 100 02/01/19 03:59 98.2 F 02/01/19 03:57 90 16 106/81 98 02/01/19 02:09 18 02/01/19 01:39 18 - Physical Examination General: No Apparent Distress HEENT: Positive: PERRL Neck: Positive: neck supple, trachea midline Neuro: Positive: Grossly Intact Abdomen: Positive: Unremarkable Extremities: Present: Other (lower extremity amputation)
[2019-02-02] MEDS: VANCOMYCIN PO PO SCH ×2 (05:50→12:40)
[2019-02-02] MEDS ORDERED: NACL 0.9% 100 ML IV PRN (09:31)
--- NOTE | 2019-02-02 09:31 | Progress Note ---
Assessment and Plan 1. ESRD: Continue hemodialysis three times a week, TTS schedule. HD today. 2. FEN: Monitor. 3. Chest pain: Followed by Cards. 4. A.fib: Rate controlled. 5. DM type 2. 6. Chronic L sided pleural effusion. 7. Anemia: Epogen if needed. 8. PAD. Subjective Date of service: 02/02/19 Interval history: Patient was seen and examined at the bedside. Doing ok. Objective - Vital Signs Vital signs: Vital Signs - 12hr 02/01/19 02/01/19 02/01/19 22:36 23:00 23:36 Temperature Pulse Rate 72 88 Respiratory 18 18 Rate Respiratory 18 Rate [ Generalized] Blood Pressure 122/78 O2 Sat by Pulse 96 Oximetry 02/02/19 02/02/19 02/02/19 00:00 04:25 08:32 Temperature 98.4 F 98.5 F 97.6 F Pulse Rate 81 76 Respiratory 16 16 14 Rate Respiratory Rate [ Generalized] Blood Pressure 114/80 117/81 107/71 O2 Sat by Pulse 100 95 Oximetry - General Appearance General appearance: well-developed, appears stated age, other (no distress, R IJ tunnel catheter) EENT: ATNC, PERRL, hearing intact, vision intact Neck: supple Respiratory: Present: Clear to Ascultation Cardiology: irregularly irregular, S1S2, no murmurs Gastrointestinal: normoactive bowel sounds, no tenderness, no distended Integumentary: no rash, warm and dry Neurologic: no focal deficit, no asterixis, alert and oriented x3 Musculoskeletal: other (no edema, L forearm amputation) - Lab 01/31/19 06:32 01/31/19 06:32 Most recent lab results Calcium 8.6 mg/dL (8.4-10.2) 01/31/19 06:32 Magnesium 2.00 mg/dL (1.7-2.3) 01/30/19 00:18 Medications & Allergies - Medications Allergies/Adverse Reactions: Allergies aspirin Allergy (Verified 01/02/19 14:41) Unknown stomach cramps pork derived (porcine) Allergy (Verified 01/02/19 14:41) Rash venom-honey bee [bee venom (honey bee)] Allergy (Verified 01/02/19 14:41) Anaphylaxis Pork/Porcine Containing Products Adverse Reaction (Severe, Verified 01/02/19 14:41) Nausea,VOMITING Home Medications: Home Medications Medication Instructions Recorded Confirmed Last Taken Type Apixaban [Eliquis] 2.5 mg PO Q12HR #60 tablet 12/29/18 01/30/19 01/01/19 Rx AtorvaSTATin [Lipitor] 40 mg PO QHS #30 tablet 12/29/18 01/30/19 01/01/19 Rx Famotidine [Pepcid] 10 mg PO BID #15 tablet 12/29/18 01/30/19 01/01/19 Rx amLODIPine [Norvasc] 10 mg PO DAILY #30 tablet 12/29/18 01/30/19 01/01/19 Rx hydrALAZINE [Apresoline TAB] 50 mg PO BID #60 tablet 12/29/18 01/30/19 01/01/19 Rx Carvedilol [Coreg] 25 mg PO BID #60 tablet 01/17/19 01/30/19 Unknown Rx traMADol [Ultram 50 MG tab] 50 mg PO Q4HR PRN #10 tablet 01/21/19 01/30/19 Unknown Rx Oxycodone HCl [oxyCODONE] 10 mg PO Q6H PRN #10 tablet 01/23/19 01/30/19 Unknown Rx Gabapentin [Neurontin] 300 mg PO Q12H PRN 01/30/19 01/30/19 Unknown History Insulin Regular, Human [HumuLIN R] 5 unit SQ QAM 01/30/19 01/30/19 1 Day Ago History ~01/29/19 diphenhydrAMINE [Benadryl CAP] 50 mg PO Q3D PRN 01/30/19 01/30/19 Unknown History Acetaminophen [Acetaminophen TAB] 2 tab PO Q4H PRN #15 tablet 02/02/19 Unknown Rx Apixaban [Eliquis] 2.5 mg PO Q12HR tablet 02/02/19 Unknown Rx Epoetin Prashant 10,000 Unit [Procrit] 10,000 unit SUB-Q KATERYNA PRN vial 02/02/19 Unknown Rx Lisinopril [Zestril TAB] 5 mg PO QDAY #30 tablet 02/02/19 Unknown Rx Vancomycin HCl 125 mg PO QID 10 Days capsule 02/02/19 Unknown Rx Active Medications: Generic Name Dose Route Start Last Admin Trade Name Freq PRN Reason Stop Dose Admin Acetaminophen 650 mg 01/30/19 04:24 Tylenol PO Q4H PRN Pain MILD(1-3)/Fever >100.5/DOUGLAS Apixaban 2.5 mg 02/01/19 22:00 02/01/19 22:36 Eliquis PO 2.5 mg Q12HR BEAN Administration Protocol Atorvastatin Calcium 40 mg 01/30/19 22:00 02/01/19 22:36 Lipitor PO 40 mg QHS BEAN Administration Carvedilol 25 mg 01/30/19 10:00 02/01/19 22:36 Coreg PO 25 mg BID BEAN Administration Diphenhydramine HCl 50 mg 01/30/19 04:22 Benadryl PO Q3D PRN Itching Epoetin Prashant 10,000 unit 01/31/19 10:09 01/31/19 15:35 Procrit SUB-Q 10,000 unit KATERYNA PRN Administration hemodialysis Famotidine 10 mg 01/30/19 10:00 02/01/19 22:36 Pepcid PO 10 mg BID BEAN Administration Gabapentin 300 mg 01/30/19 04:22 01/30/19 14:22 Neurontin PO 300 mg Q12H PRN Administration Pain , Severe (7-10) Hydralazine HCl 50 mg 01/30/19 15:00 02/01/19 22:36 Apresoline PO 50 mg BID BEAN Administration Hydralazine HCl 10 mg 01/30/19 04:26 Apresoline IV Q4HR PRN BP >160/100 Sodium Chloride 100 mls @ 999 mls/hr 01/31/19 10:09 Nacl 0.9% IV KATERYNA PRN Hypotension Lisinopril 5 mg 01/30/19 13:00 02/01/19 10:15 Zestril PO 5 mg QDAY BEAN Administration Morphine Sulfate 4 mg 01/30/19 00:02 02/01/19 14:29 Morphine IV 4 mg Q4H PRN Administration Pain , Severe (7-10) Nitroglycerin 0.4 mg 01/30/19 00:02 01/30/19 03:29 Nitrostat SL 0.4 mg .Q5MIN PRN Administration Chest Pain Ondansetron HCl 4 mg 01/30/19 04:24 Zofran IV Q8H PRN Nausea And Vomiting Oxycodone HCl 10 mg 01/30/19 04:22 02/01/19 22:36 Roxicodone PO 10 mg Q6H PRN Administration Pain, Moderate (4-6) Sodium Chloride 10 ml 01/30/19 10:00 02/01/19 22:38 Sodium Chloride Flush Syringe 10 Ml IV Not Given BID BEAN Sodium Chloride 10 ml 01/30/19 04:24 Sodium Chloride Flush Syringe 10 Ml IV PRN PRN LINE FLUSH Tramadol HCl 50 mg 01/30/19 04:22 Ultram PO Q4H PRN Pain (4-6) Vancomycin HCl 125 mg 02/01/19 18:00 02/02/19 05:50 Vancomycin Po PO 02/11/19 12:01 125 mg Q6HR BEAN Administration
[2019-02-02] MEDS: COREG PO SCH (10:18)
[2019-02-02] MEDS: ELIQUIS PO SCH (10:18)
[2019-02-02] MEDS: PEPCID PO SCH (10:19)
[2019-02-02] MEDS: SODIUM CHLORIDE FLUSH SYRINGE 10 ML IV SCH (10:19)
[2019-02-02] MEDS: ZESTRIL PO SCH (10:45)
[2019-02-02] MEDS: APRESOLINE PO SCH (10:45)
[2019-02-02 14:38] VITALS: BP 173/82
[2019-02-02] MEDS: MORPHINE IV PRN (15:21)
[2019-02-04 03:30] LABS: LDH,Body Fluid 64; Total Protein,Body Fluid < 3.0 (15.0-45.0)
== END 2019-02-02 16:52 | disposition home health service (06) | DRG 291 ==
LOC: ED 22:28 → 4A 01-30 04:24 → OBSVTOIN 01-30 14:13
PROVIDERS: ADMIT Internal Medicine; ATTEND Internal Medicine
PROC: 0W9B3ZZ Drainage of Left Pleural Cavity, Percutaneous Approach (ICD-10-PCS; principal; 2019-01-31)
PROC: 5A1D70Z Performance of Urinary Filtration, Intermittent, Less than 6 Hours Per Day (ICD-10-PCS; 2019-01-31)
PROC: 5A1D70Z Performance of Urinary Filtration, Intermittent, Less than 6 Hours Per Day (ICD-10-PCS; 2019-02-02)
DX: I13.2 Hypertensive heart and chronic kidney disease with heart failure and with stage 5 chronic kidney disease, or end stage renal disease (principal); N18.6 End stage renal disease; I50.23 Acute on chronic systolic (congestive) heart failure; J90 Pleural effusion, not elsewhere classified; I25.119 Atherosclerotic heart disease of native coronary artery with unspecified angina pectoris; I16.0 Hypertensive urgency; D68.69 Other thrombophilia; F43.10 Post-traumatic stress disorder, unspecified; L98.499 Non-pressure chronic ulcer of skin of other sites with unspecified severity; D63.8 Anemia in other chronic diseases classified elsewhere; A04.72 Enterocolitis due to Clostridium difficile, not specified as recurrent; E11.22 Type 2 diabetes mellitus with diabetic chronic kidney disease; E11.51 Type 2 diabetes mellitus with diabetic peripheral angiopathy without gangrene; D69.6 Thrombocytopenia, unspecified; M19.90 Unspecified osteoarthritis, unspecified site; J44.9 Chronic obstructive pulmonary disease, unspecified; I42.8 Other cardiomyopathies; I48.2 Chronic atrial fibrillation; Z82.49 Family history of ischemic heart disease and other diseases of the circulatory system; Z88.6 Allergy status to analgesic agent; Z99.2 Dependence on renal dialysis; Z79.01 Long term (current) use of anticoagulants; Z86.718 Personal history of other venous thrombosis and embolism; Z89.202 Acquired absence of left upper limb, unspecified level; Z91.030 Bee allergy status; Z79.899 Other long term (current) drug therapy; Z79.4 Long term (current) use of insulin; Z95.820 Peripheral vascular angioplasty status with implants and grafts
CPT/HCPCS: 32555; 36415; 71045; 78452; 80048; 80061; 82962; 83605; 83735; 83880; 84160; 84484; 85007; 85025; 85027; 85610; 85730; 87116; 87493; 88112; 88305; 88341; 88342; 89051; 93005; 93010; 93017; 93306; 96374; G0378; A9270-GY; A9502; J0885; J2270; J2785; J3370; J7030

== ENCOUNTER 2019-02-03 22:11 | Emergency (ER) | payer MEDICAID ==
--- NOTE | 2019-02-03 22:37 | Emergency Department Report ---
ED General Adult HPI - General Stated complaint: C DIFF Time Seen by Provider: 02/03/19 22:34 - History of Present Illness Initial comments: 71-year-old male with a history of end-stage renal disease, A. fib on liquids, CHF who was discharged yesterday re-presents complaining of diarrhea. Patient states that he's noted black stool. Patient denies any bright red blood in stool. Patient states that he is hurting all over as well as oxycodone therapy. Patient complains of intermittent shortness of breath as well. Patient complains of abdominal pain but has had no vomiting. patient states that he has been compliant with his c diff therapy. Patient has had no fever. - Related Data Home Medications Medication Instructions Recorded Confirmed Last Taken Gabapentin [Neurontin] 300 mg PO Q12H PRN 01/30/19 01/30/19 Unknown Insulin Regular, Human [HumuLIN R] 5 unit SQ QAM 01/30/19 01/30/19 1 Day Ago ~01/29/19 diphenhydrAMINE [Benadryl CAP] 50 mg PO Q3D PRN 01/30/19 01/30/19 Unknown Previous Rx's Medication Instructions Recorded Last Taken Type Apixaban [Eliquis] 2.5 mg PO Q12HR #60 tablet 12/29/18 01/01/19 Rx AtorvaSTATin [Lipitor] 40 mg PO QHS #30 tablet 12/29/18 01/01/19 Rx Famotidine [Pepcid] 10 mg PO BID #15 tablet 12/29/18 01/01/19 Rx amLODIPine [Norvasc] 10 mg PO DAILY #30 tablet 12/29/18 01/01/19 Rx hydrALAZINE [Apresoline TAB] 50 mg PO BID #60 tablet 12/29/18 01/01/19 Rx Carvedilol [Coreg] 25 mg PO BID #60 tablet 01/17/19 Unknown Rx traMADol [Ultram 50 MG tab] 50 mg PO Q4HR PRN #10 tablet 01/21/19 Unknown Rx Oxycodone HCl [oxyCODONE] 10 mg PO Q6H PRN #10 tablet 01/23/19 Unknown Rx Acetaminophen [Acetaminophen TAB] 2 tab PO Q4H PRN #15 tablet 02/02/19 Unknown Rx Apixaban [Eliquis] 2.5 mg PO Q12HR tablet 02/02/19 Unknown Rx Epoetin Prashant 10,000 Unit [Procrit] 10,000 unit SUB-Q KATERYNA PRN vial 02/02/19 Unknown Rx Lisinopril [Zestril TAB] 5 mg PO QDAY #30 tablet 02/02/19 Unknown Rx Vancomycin HCl 125 mg PO QID 10 Days capsule 02/02/19 Unknown Rx Allergies Allergy/AdvReac Type Severity Reaction Status Date / Time aspirin Allergy Unknown Verified 01/02/19 14:41 pork derived (porcine) Allergy Rash Verified 01/02/19 14:41 venom-honey bee Allergy Anaphylaxis Verified 01/02/19 14:41 [bee venom (honey bee)] Pork/Porcine Containing AdvReac Severe Nausea,VOMI Verified 01/02/19 14:41 Products TING ED Review of Systems ROS: Stated complaint: C DIFF Other details as noted in HPI Constitutional: denies: chills, fever Eyes: denies: eye pain, eye discharge, vision change ENT: denies: ear pain, throat pain Respiratory: denies: cough, shortness of breath, wheezing Cardiovascular: denies: chest pain, palpitations Endocrine: no symptoms reported Gastrointestinal: denies: abdominal pain, nausea, diarrhea Genitourinary: denies: urgency, dysuria Musculoskeletal: denies: back pain, joint swelling, arthralgia Skin: denies: rash, lesions Neurological: denies: headache, weakness, paresthesias Psychiatric: denies: anxiety, depression Hematological/Lymphatic: denies: easy bleeding, easy bruising ED Past Medical Hx - Past Medical History Hx Hypertension: Yes Hx Heart Attack/AMI: No Hx Congestive Heart Failure: Yes Hx Diabetes: Yes Hx Deep Vein Thrombosis: Yes Hx Pulmonary Embolism: No Hx Liver Disease: Yes Hx Renal Disease: No Hx Arthritis: Yes (generalized) Hx Seizures: No Hx Kidney Stones: No Hx Psychiatric Treatment: Yes (PTSD) Hx Asthma: No Hx COPD: Yes Hx Tuberculosis: No Hx HIV: No Additional medical history: 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 abd surgery after war related ingury partial "stomach removal'. Left upper extremity amputation below elbow - Social History Smoking Status: Never Smoker - Medications Home Medications: Home Medications Medication Instructions Recorded Confirmed Last Taken Type Apixaban [Eliquis] 2.5 mg PO Q12HR #60 tablet 12/29/18 01/30/19 01/01/19 Rx AtorvaSTATin [Lipitor] 40 mg PO QHS #30 tablet 12/29/18 01/30/19 01/01/19 Rx Famotidine [Pepcid] 10 mg PO BID #15 tablet 12/29/18 01/30/19 01/01/19 Rx amLODIPine [Norvasc] 10 mg PO DAILY #30 tablet 12/29/18 01/30/19 01/01/19 Rx hydrALAZINE [Apresoline TAB] 50 mg PO BID #60 tablet 12/29/18 01/30/19 01/01/19 Rx Carvedilol [Coreg] 25 mg PO BID #60 tablet 01/17/19 01/30/19 Unknown Rx traMADol [Ultram 50 MG tab] 50 mg PO Q4HR PRN #10 tablet 01/21/19 01/30/19 Unknown Rx Oxycodone HCl [oxyCODONE] 10 mg PO Q6H PRN #10 tablet 01/23/19 01/30/19 Unknown Rx Gabapentin [Neurontin] 300 mg PO Q12H PRN 01/30/19 01/30/19 Unknown History Insulin Regular, Human [HumuLIN R] 5 unit SQ QAM 01/30/19 01/30/19 1 Day Ago History ~01/29/19 diphenhydrAMINE [Benadryl CAP] 50 mg PO Q3D PRN 01/30/19 01/30/19 Unknown History Acetaminophen [Acetaminophen TAB] 2 tab PO Q4H PRN #15 tablet 02/02/19 Unknown Rx Apixaban [Eliquis] 2.5 mg PO Q12HR tablet 02/02/19 Unknown Rx Epoetin Prashant 10,000 Unit [Procrit] 10,000 unit SUB-Q KATERYNA PRN vial 02/02/19 Unknown Rx Lisinopril [Zestril TAB] 5 mg PO QDAY #30 tablet 02/02/19 Unknown Rx Vancomycin HCl 125 mg PO QID 10 Days capsule 02/02/19 Unknown Rx ED Physical Exam - General General appearance: alert, in no apparent distress - Head Head exam: Present: atraumatic, normocephalic - Eye Eye exam: Present: normal appearance - ENT ENT exam: Present: mucous membranes moist - Neck Neck exam: Present: normal inspection - Respiratory Respiratory exam: Present: normal lung sounds bilaterally. Absent: respiratory distress - Cardiovascular Cardiovascular Exam: Present: regular rate, irregular rhythm, other. Absent: systolic murmur, diastolic murmur, rubs, gallop - GI/Abdominal GI/Abdominal exam: Present: soft, tenderness (mild tenderness noted in LLQ region), normal bowel sounds - Rectal Rectal exam: Present: heme (+) stool, other (brown stool; no melena; no bright red blood per rectum) - Extremities Exam Extremities exam: Present: normal inspection - Back Exam Back exam: Present: normal inspection - Neurological Exam Neurological exam: Present: alert, oriented X3, CN II-XII intact - Psychiatric Psychiatric exam: Present: normal affect, normal mood - Skin Skin exam: Present: warm, dry, intact, normal color. Absent: rash ED Course Vital Signs 02/03/19 22:27 Temperature 98.1 F Pulse Rate 85 Respiratory 16 Rate Blood Pressure 131/86 O2 Sat by Pulse 99 Oximetry ED Medical Decision Making - Lab Data Result diagrams: 02/03/19 23:58 02/03/19 23:58 - Medical Decision Making Patient is a CT was shows no acute pathology. Patient has a normal O2 sat and chest x-ray which per my interpretation shows similar findings to the prior x- ray where patient was discharged. Patient had dialysis on Monday and is due for dialysis on Monday. Patient has a stable hemoglobin and has brown stool which is guaiac positive. Patient otherwise is asymptomatic. Patient has by mouth narcotic therapy at home. Patient can continue this therapy on an outpatient basis. Case was also discussed with hospitalist who agrees with discharge of patient. Patient to continue his xarelto thearapy as well as an out patient. - Differential Diagnosis Pancreatitis; Obstruction; Anemia; Dehydration Critical care attestation.: If time is entered above; I have spent that time in minutes in the direct care of this critically ill patient, excluding procedure time. ED Disposition Clinical Impression: Abdominal pain, ESRD (end stage renal disease) on dialysis, GI bleed Disposition: TO HOME OR SELFCARE Is pt being admited?: No Condition: Stable Referrals: JOSEPH JORGE MD [Primary Care Provider] - 3-5 Days CHRISTINE DACOSTA MD [Staff Physician] - 3-5 Days Time of Disposition: 02:11 Print Language: PORTUGUESE
[2019-02-03] MEDS ORDERED: PERCOCET 5/325 PO STA (22:55)
[2019-02-03 23:41] LABS: INR 2.35 (0.87-1.13)
--- NOTE | 2019-02-03 23:49 | Cat Scan Report ---
CT abdomen pelvis wo con INDICATION / CLINICAL INFORMATION: Generalized abdominal pain, cramping, and diarrhea. History of COPD.. TECHNIQUE: All CT scans at this location are performed using CT dose reduction for ALARA by means of automated e xposure control. COMPARISON: 11/28/2018. FINDINGS: ABDOMEN: There are severe generalized atherosclerotic calcifications. There are numerous renal cysts. Minimal ascites is present. There are small bilateral pleural effusions, larger on the left. There i s compressive atelectasis in the left lower lobe. The heart is enlarged. The gallbladder is not identified. The liver, spleen, pancreas, adrenal glands and bowel demonstrate no acute abnormality. PELVIS: The prostate gland is mildly enlarged. The distal ureters and urinary bladder are unremarkabl e. I see no evidence of appendicitis or diverticulitis. I do not identify a hernia. No abnormal mass or fluid collection is seen. There are surgical changes involving L5 and S1. No acute osseous abnorma lity is seen. IMPRESSION: 1. No acute intra-abdominal disease has occurred since 11/28/2018. 2. Minimal ascites, small bilateral pleural effusions and compressive atelectasis in the left lower l obe are similar to the prior exam. Signer Name: Juan Sarabia MD Signed: 02/03/2019 11:45 PM Workstation Name: [id number]
[2019-02-03 23:54] LABS: Partial Thromboplastin Time 64.3 Sec. (24.2-36.6)
[2019-02-04 00:13] LABS: Hematocrit 37.4 % (35.5-45.6); Hemoglobin 12.1 gm/dl (11.8-15.2); Mean Corpuscular HGB Conc 32 % (32-34); Mean Corpuscular Volume 101 fl (84-94); Red Blood Count 3.72 M/mm3 (3.65-5.03); Red Cell Distribution Width 17.3 % (13.2-15.2)
--- NOTE | 2019-02-04 00:23 | XRay Report ---
CHEST 1 VIEW 12:12 AM INDICATION / CLINICAL INFORMATION: Chest pain. Generalized body aches. COMPARISON: 01/31/2019. FINDINGS: SUPPORT DEVICES: The position of the right jugular permacath has not changed. HEART / MEDIASTINUM: Cardiomegaly is stable. LUNGS / PLEURA: Moderate pleuroparenchymal disease in the left lower hemithorax with obscuration of t he hemidiaphragm has increased. Pulmonary vascular congestion and mild interstitial edema is similar to the prior study. No pneumothorax. ADDITIONAL FINDINGS: Left subclavian/brachiocephalic stent graft is again noted. There are surgical c hanges in the region of the stomach. IMPRESSION:Increasing pleuroparenchymal opacity in the left lower hemithorax is likely related to pne umonia and associated pleural effusion. Signer Name: Juan Sarabia MD Signed: 02/04/2019 12:19 AM Workstation Name: [id number]
[2019-02-04 00:28] LABS: Platelet Count 96 K/mm3 (140-440)
[2019-02-04 00:40] LABS: Calcium 8.9 mg/dL (8.4-10.2)
[2019-02-04 02:21] VITALS: BP 119/91
== END 2019-02-04 03:42 | disposition home or self-care (01) ==
LOC: ED 22:11
DX: E11.22 Type 2 diabetes mellitus with diabetic chronic kidney disease (principal); I13.2 Hypertensive heart and chronic kidney disease with heart failure and with stage 5 chronic kidney disease, or end stage renal disease; I50.9 Heart failure, unspecified; M19.90 Unspecified osteoarthritis, unspecified site; J44.9 Chronic obstructive pulmonary disease, unspecified; F43.10 Post-traumatic stress disorder, unspecified; K92.2 Gastrointestinal hemorrhage, unspecified; N18.6 End stage renal disease; Z99.2 Dependence on renal dialysis; Z79.4 Long term (current) use of insulin; Z86.718 Personal history of other venous thrombosis and embolism; Z79.01 Long term (current) use of anticoagulants; Z98.890 Other specified postprocedural states; Z79.899 Other long term (current) drug therapy; Z91.018 Allergy to other foods; Z91.030 Bee allergy status; Z88.6 Allergy status to analgesic agent
CPT/HCPCS: 36415; 71045; 74176; 80053; 82550; 83690; 85027; 85610; 85730

== ENCOUNTER 2019-02-08 03:47 | Emergency (ER) | payer MEDICAID ==
--- NOTE | 2019-02-08 06:31 | Emergency Department Report ---
ED General Adult HPI - General Chief complaint: Extremity Problem,Nontraumatic Stated complaint: ARM PAIN Time Seen by Provider: 02/08/19 06:28 Source: patient Mode of arrival: Ambulatory Limitations: No Limitations - History of Present Illness Initial comments: This is a 71-year-old male on chronic opiates. He states he takes Percocet every day. He states he does not go to a pain clinic. He was reticent to give me this information. He suggested that he had not experienced right arm pain like this before and that it woke him from sleep. However he has complained of right arm pain in the past. He has a chronic ulcer. He has a history of DVT. He reports no acute shortness of breath and no acute arm swelling. He reports no neurological change. It would appear that the patient has at most acute on chronic complaints of right arm pain. He's had no recent fever or chills. He does have frequent emergency department visits. He states he had dialysis yesterday utilizing a right-sided vas cath. He goes to the wound care clinic and states he has another appointment after . 01/2019 Hospitalization: Condition: Fair Hospital course: Patient is a 71 yo man with a history of recurrent left sided pleural effusion s/p thoracentesis almost every 2 weeks, ESRD on HD, Afib on Eliquis, CHF with EF 10%, DVT, PTSD, AOCD, Right upper extermity of ulcer and hypertension who presented with chest pains. Chest Xray showed subclavian stents noted persistent moderate side effusion on the left with clear right lung. Acute on chronic systolic heart failure: increase ultrafiltration with HD, no lasix due to ESRD Recurrent Moderate size left pleural effusion: s/p thoracentesis, I have asked Dr. Diamond to look out for the cytology ESRD on Hemodialysis: consulted Nephrology Afib on Eliquis: hold Eliquis for thoracentesis, resume Eliquis, no C Chest pains with elevated troponin, abnormal stress, suspect Angina: Consulted Cardiology, input noted, no Cardiac intervention. Hypertension urgency: low salt diet, iv hydralazine prn Diarrhea due to Clostriodioides difficile colitis infection use oral Vancomycin 125 mg po QID x 10 days Disposition: - TO HOME OR SELFCARE Time spent for discharge: 35 mintues -: hour(s) (less than 2 hours) Location: right, upper extremity Quality: aching Improves with: none Worsens with: none Associated Symptoms: denies other symptoms Treatments Prior to Arrival: none - Related Data Home Medications Medication Instructions Recorded Confirmed Last Taken Gabapentin [Neurontin] 300 mg PO Q12H PRN 01/30/19 01/30/19 Unknown Insulin Regular, Human [HumuLIN R] 5 unit SQ QAM 01/30/19 01/30/19 1 Day Ago ~01/29/19 diphenhydrAMINE [Benadryl CAP] 50 mg PO Q3D PRN 01/30/19 01/30/19 Unknown Previous Rx's Medication Instructions Recorded Last Taken Type Apixaban [Eliquis] 2.5 mg PO Q12HR #60 tablet 12/29/18 01/01/19 Rx AtorvaSTATin [Lipitor] 40 mg PO QHS #30 tablet 12/29/18 01/01/19 Rx Famotidine [Pepcid] 10 mg PO BID #15 tablet 12/29/18 01/01/19 Rx amLODIPine [Norvasc] 10 mg PO DAILY #30 tablet 12/29/18 01/01/19 Rx hydrALAZINE [Apresoline TAB] 50 mg PO BID #60 tablet 12/29/18 01/01/19 Rx Carvedilol [Coreg] 25 mg PO BID #60 tablet 01/17/19 Unknown Rx traMADol [Ultram 50 MG tab] 50 mg PO Q4HR PRN #10 tablet 01/21/19 Unknown Rx Oxycodone HCl [oxyCODONE] 10 mg PO Q6H PRN #10 tablet 01/23/19 Unknown Rx Acetaminophen [Acetaminophen TAB] 2 tab PO Q4H PRN #15 tablet 02/02/19 Unknown Rx Apixaban [Eliquis] 2.5 mg PO Q12HR tablet 02/02/19 Unknown Rx Epoetin Prashant 10,000 Unit [Procrit] 10,000 unit SUB-Q KATERYNA PRN vial 02/02/19 Unknown Rx Lisinopril [Zestril TAB] 5 mg PO QDAY #30 tablet 02/02/19 Unknown Rx Vancomycin HCl 125 mg PO QID 10 Days capsule 02/02/19 Unknown Rx traMADol [Ultram] 50 mg PO Q6HR PRN #10 tablet 02/08/19 Unknown Rx Allergies Allergy/AdvReac Type Severity Reaction Status Date / Time aspirin Allergy Unknown Verified 01/02/19 14:41 pork derived (porcine) Allergy Rash Verified 01/02/19 14:41 venom-honey bee Allergy Anaphylaxis Verified 01/02/19 14:41 [bee venom (honey bee)] Pork/Porcine Containing AdvReac Severe Nausea,VOMI Verified 01/02/19 14:41 Products TING ED Review of Systems ROS: Stated complaint: ARM PAIN Other details as noted in HPI Constitutional: denies: chills, fever Eyes: denies: eye pain, eye discharge, vision change ENT: denies: ear pain, throat pain Respiratory: denies: cough, shortness of breath, wheezing Cardiovascular: denies: chest pain, palpitations Endocrine: no symptoms reported Gastrointestinal: denies: abdominal pain, nausea, diarrhea Genitourinary: denies: urgency, dysuria Musculoskeletal: as per HPI (entire right arm hurts). denies: back pain, joint swelling, arthralgia Skin: denies: rash, lesions Neurological: denies: headache, weakness, paresthesias Psychiatric: denies: anxiety, depression Hematological/Lymphatic: denies: easy bleeding, easy bruising ED Past Medical Hx - Past Medical History Previous Medical History?: Yes Hx Hypertension: Yes Hx Heart Attack/AMI: No Hx Congestive Heart Failure: Yes Hx Diabetes: Yes Hx Deep Vein Thrombosis: Yes Hx Pulmonary Embolism: No Hx Liver Disease: Yes Hx Renal Disease: No Hx Arthritis: Yes (generalized) Hx Seizures: No Hx Kidney Stones: No Hx Psychiatric Treatment: Yes (PTSD) Hx Asthma: No Hx COPD: Yes Hx Tuberculosis: No Hx HIV: No Additional medical history: 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 abd surgery after war related ingury partial "stomach removal'. Left upper extremity amputation below elbow - Social History Smoking Status: Never Smoker Substance Use Type: None - Medications Home Medications: Home Medications Medication Instructions Recorded Confirmed Last Taken Type Apixaban [Eliquis] 2.5 mg PO Q12HR #60 tablet 12/29/18 01/30/19 01/01/19 Rx AtorvaSTATin [Lipitor] 40 mg PO QHS #30 tablet 12/29/18 01/30/19 01/01/19 Rx Famotidine [Pepcid] 10 mg PO BID #15 tablet 12/29/18 01/30/19 01/01/19 Rx amLODIPine [Norvasc] 10 mg PO DAILY #30 tablet 12/29/18 01/30/19 01/01/19 Rx hydrALAZINE [Apresoline TAB] 50 mg PO BID #60 tablet 12/29/18 01/30/19 01/01/19 Rx Carvedilol [Coreg] 25 mg PO BID #60 tablet 01/17/19 01/30/19 Unknown Rx traMADol [Ultram 50 MG tab] 50 mg PO Q4HR PRN #10 tablet 01/21/19 01/30/19 Unknown Rx Oxycodone HCl [oxyCODONE] 10 mg PO Q6H PRN #10 tablet 01/23/19 01/30/19 Unknown Rx Gabapentin [Neurontin] 300 mg PO Q12H PRN 01/30/19 01/30/19 Unknown History Insulin Regular, Human [HumuLIN R] 5 unit SQ QAM 01/30/19 01/30/19 1 Day Ago History ~01/29/19 diphenhydrAMINE [Benadryl CAP] 50 mg PO Q3D PRN 01/30/19 01/30/19 Unknown History Acetaminophen [Acetaminophen TAB] 2 tab PO Q4H PRN #15 tablet 02/02/19 Unknown Rx Apixaban [Eliquis] 2.5 mg PO Q12HR tablet 02/02/19 Unknown Rx Epoetin Prashant 10,000 Unit [Procrit] 10,000 unit SUB-Q KATERYNA PRN vial 02/02/19 Unknown Rx Lisinopril [Zestril TAB] 5 mg PO QDAY #30 tablet 02/02/19 Unknown Rx Vancomycin HCl 125 mg PO QID 10 Days capsule 02/02/19 Unknown Rx traMADol [Ultram] 50 mg PO Q6HR PRN #10 tablet 02/08/19 Unknown Rx ED Physical Exam - General Limitations: No Limitations General appearance: alert, in no apparent distress - Head Head exam: Present: atraumatic, normocephalic - Eye Eye exam: Present: normal appearance. Absent: scleral icterus - ENT ENT exam: Present: mucous membranes moist - Neck Neck exam: Present: normal inspection - Respiratory Respiratory exam: Present: normal lung sounds bilaterally. Absent: respiratory distress - Cardiovascular Cardiovascular Exam: Present: regular rate, normal rhythm. Absent: systolic murmur, diastolic murmur, rubs, gallop - GI/Abdominal GI/Abdominal exam: Present: soft, normal bowel sounds. Absent: distended, tenderness, guarding, rebound - Rectal Rectal exam: Present: deferred - Extremities Exam Extremities exam: Present: other (the right arm is not swollen. The radial pulse is strong. Neurovascular exam of the right arm is intact. There is a full-thickness ulcer of the volar forearm which is clean when the dressing is removed. There is no sign of infection. There is no swelling.) - Back Exam Back exam: Present: normal inspection - Neurological Exam Neurological exam: Present: alert, oriented X3, CN II-XII intact. Absent: motor sensory deficit - Psychiatric Psychiatric exam: Present: normal affect, normal mood - Skin Skin exam: Present: warm, dry, intact, normal color. Absent: rash ED Course Vital Signs 02/08/19 02/08/19 02/08/19 03:53 06:43 07:02 Temperature 98.2 F Pulse Rate 54 L Respiratory 18 20 Rate Blood Pressure 118/94 Blood Pressure [Left] O2 Sat by Pulse 99 100 Oximetry 02/08/19 10:00 Temperature Pulse Rate 94 H Respiratory 16 Rate Blood Pressure Blood Pressure 142/96 [Left] O2 Sat by Pulse 96 Oximetry - Reevaluation(s) Reevaluation #1: I will check some basic labs on this patient. He is compliant with his request. I do not see evidence of an acute vascular event involving his right arm. Pulses are intact. The arm is warm and nonswollen. We will recheck it. 02/08/19 07:00 ED Medical Decision Making - Lab Data Result diagrams: 02/08/19 07:15 02/08/19 07:15 Laboratory Results - last 24 hr 02/08/19 02/08/19 07:15 07:15 WBC 3.3 L RBC 4.04 Hgb 12.9 Hct 40.1 MCV 99 H MCH 32 MCHC 32 RDW 16.8 H Plt Count 107 L Lymph % (Auto) 21.7 [place] % (Auto) 11.7 H Eos % (Auto) 2.5 Baso % (Auto) 1.4 Lymph # 0.7 L [place] # 0.4 Eos # 0.1 Baso # 0.0 Seg Neutrophils % 62.7 Seg Neutrophils # 2.0 Sodium 135 L Potassium 4.1 Chloride 98.4 Carbon Dioxide 23 Anion Gap 18 BUN 23 H Creatinine 5.2 H Estimated GFR 13 BUN/Creatinine Ratio 4 Glucose 84 Calcium 9.4 Phosphorus 6.20 H - Radiology Data Radiology results: report reviewed (Pardeep Jacobo Doppler good flow) Critical care attestation.: If time is entered above; I have spent that time in minutes in the direct care of this critically ill patient, excluding procedure time. ED Disposition Clinical Impression: Right arm pain, End stage renal disease on dialysis, Thrombocytopenia Chronic pain Qualifiers: Chronic pain type: other chronic pain Qualified Code(s): G89.29 - Other chronic pain Disposition: - TO HOME OR SELFCARE Is pt being admited?: No Does the pt Need Aspirin: No Condition: Stable Instructions: Chronic Kidney Disease (ED) Additional Instructions: Follow-up his usual physicians. Rx Ultram if needed for pain. Prescriptions: traMADol [Ultram] 50 mg PO Q6HR PRN #10 tablet PRN Reason: Pain Referrals: PRIMARY CAREMD [Primary Care Provider] - 3-5 Days LYRIC DIAMOND MD [Staff Physician] - 2-3 Days Time of Disposition: 10:38
[2019-02-08] MEDS ORDERED: ZOFRAN ODT PO ONE (06:47)
[2019-02-08] MEDS ORDERED: MORPHINE IM ONE (06:47)
[2019-02-08 07:24] LABS: Basophils % (Auto) 1.4 % (0.0-1.8); Eosinophils # (Auto) 0.1 K/mm3 (0.0-0.4); Eosinophils % (Auto) 2.5 % (0.0-4.3); Hematocrit 40.1 % (35.5-45.6); Hemoglobin 12.9 gm/dl (11.8-15.2); Lymphocytes # (Auto) 0.7 K/mm3 (1.2-5.4); Lymphocytes % (Auto) 21.7 % (13.4-35.0); Mean Corpuscular HGB Conc 32 % (32-34); Mean Corpuscular Volume 99 fl (84-94); Monocytes # (Auto) 0.4 K/mm3 (0.0-0.8); Monocytes % (Auto) 11.7 % (0.0-7.3); Platelet Count 107 K/mm3 (140-440); Red Blood Count 4.04 M/mm3 (3.65-5.03); Red Cell Distribution Width 16.8 % (13.2-15.2)
[2019-02-08 07:43] LABS: Calcium 9.4 mg/dL (8.4-10.2)
--- NOTE | 2019-02-08 10:00 | Vascular Lab Report ---
RIGHT UPPER EXTREMITY ARTERIAL DOPPLER ULTRASOUND HISTORY: Right arm pain for 3 weeks COMPARISON: 08/29/2018 TECHNIQUE: Sanchez-scale, color Doppler and pulse wave Doppler examination of right upper extremity halle lucy was performed. FINDINGS: Subclavian artery: Triphasic waveform. Peak systolic velocity 58 cm/s. Axillary artery: Triphasic waveform. Peak systolic velocity 31 cm/s. Brachial artery: Triphasic waveform. Peak systolic velocity 47 cm/s. Radial artery: Triphasic waveform. Peak systolic velocity 46 cm/s. Ulnar artery: Biphasic waveform. Peak systolic velocity 36 cm/s. Additional findings: There are mild to moderate partially calcified plaques throughout the right uppe r extremity arterial structures. IMPRESSION: Mild to moderate diffuse atherosclerotic plaques. Peak systolic velocities are within normal limits consistent with no hemodynamically significant sten osis or occlusion. Signer Name: Piero Lang Jr, MD Signed: 02/08/2019 9:56 AM Workstation Name: [id number]
[2019-02-08 10:01] VITALS: BP 142/96
== END 2019-02-08 18:52 | disposition home or self-care (01) ==
LOC: ED 03:47
DX: M79.601 Pain in right arm (principal); G89.29 Other chronic pain; D69.6 Thrombocytopenia, unspecified; M19.90 Unspecified osteoarthritis, unspecified site; J44.9 Chronic obstructive pulmonary disease, unspecified; E11.22 Type 2 diabetes mellitus with diabetic chronic kidney disease; I13.2 Hypertensive heart and chronic kidney disease with heart failure and with stage 5 chronic kidney disease, or end stage renal disease; I50.9 Heart failure, unspecified; N18.6 End stage renal disease; Z99.2 Dependence on renal dialysis; Z91.15 Patient's noncompliance with renal dialysis; Z79.4 Long term (current) use of insulin; Z86.718 Personal history of other venous thrombosis and embolism; Z79.01 Long term (current) use of anticoagulants; Z98.890 Other specified postprocedural states; Z79.899 Other long term (current) drug therapy; Z91.018 Allergy to other foods; Z91.030 Bee allergy status; Z88.6 Allergy status to analgesic agent
CPT/HCPCS: 36415; 80048; 84100; 85025; 93931; 96372; 99284; J2270; Q0162

== ENCOUNTER 2019-02-15 04:20 | Inpatient (IN) | payer MEDICAID ==
[2019-02-15] MEDS ORDERED: NITROSTAT SL ONE (04:50)
--- NOTE | 2019-02-15 05:19 | XRay Report ---
CHEST 1 VIEW INDICATION: chest pain. COMPARISON: 02/04/2019. FINDINGS: Support devices: Dialysis catheter unchanged. Heart: Stable cardiomegaly. Lungs/Pleura: Left basilar effusion/volume loss and mild vascular congestion remain. Additional findings: None. IMPRESSION: No significant change. Signer Name: Francois Ang MD Signed: 02/15/2019 5:14 AM Workstation Name: [id number]
--- NOTE | 2019-02-15 05:41 | Emergency Department Report ---
<HERMELINDA LAGUERRE - Last Filed: 02/15/19 05:36> ED Chest Pain HPI - General Chief Complaint: Chest Pain Stated Complaint: PALPITATIONS Time Seen by Provider: 02/15/19 04:41 Source: patient, EMS Mode of arrival: Stretcher Limitations: No Limitations - History of Present Illness Initial Comments: Patient is a 72-year-old male with a past medical history of history of recurrent left sided pleural effusion s/p thoracentesis almost every 2 weeks, ESRD on HD, Afib on Eliquis, CHF with EF 10%, DVT, PTSD, AOCD, Right upper extermity of ulcer and hypertension who presented with chest pains. Patient states that he's been having palpitations with chest pain for approximately 12 hours. The patient has been to our hospital multiple times in the last 2 weeks and is well known to our department. The patient has slight variations of his presentation on each visit. Patient's most recent encounter show that he had a nuclear stress test on 01/30/2019 which showed that there was no ischemia demonstrated on that study. Patient's ejection fraction was 20% that time. There was severe left ventricular systolic dysfunction. On 01/31 2019 patient had a ultrasound-guided thoracentesis. On the of this month patient returns secondary to having some abdominal pain cramping and diarrhea. Minimal ascites was found on CT. On 02/08/2019 the patient presented with right upper extremity pain. Patient had SOUND which showed no acute process. At this time patient states that the chest pain and palpitations he has shortness of breath and also feels as though his "pass out. Patient states that his symptoms are worse with lying flat and with sitting upward. Quality: tightness, heaviness, sharp Consistency: constant Improves With: nothing Worsens With: exertion - Related Data Home Medications Medication Instructions Recorded Confirmed Last Taken Gabapentin [Neurontin] 300 mg PO Q12H PRN 01/30/19 02/15/19 Unknown Insulin Regular, Human [HumuLIN R] 5 unit SQ QAM 01/30/19 02/15/19 1 Day Ago ~01/29/19 diphenhydrAMINE [Benadryl CAP] 50 mg PO Q3D PRN 01/30/19 02/15/19 Unknown Previous Rx's Medication Instructions Recorded Last Taken Type Apixaban [Eliquis] 2.5 mg PO Q12HR #60 tablet 12/29/18 01/01/19 Rx AtorvaSTATin [Lipitor] 40 mg PO QHS #30 tablet 12/29/18 01/01/19 Rx Famotidine [Pepcid] 10 mg PO BID #15 tablet 12/29/18 01/01/19 Rx amLODIPine [Norvasc] 10 mg PO DAILY #30 tablet 12/29/18 01/01/19 Rx hydrALAZINE [Apresoline TAB] 50 mg PO BID #60 tablet 12/29/18 01/01/19 Rx Carvedilol [Coreg] 25 mg PO BID #60 tablet 01/17/19 Unknown Rx Oxycodone HCl [oxyCODONE] 10 mg PO Q6H PRN #10 tablet 01/23/19 Unknown Rx Acetaminophen [Acetaminophen TAB] 2 tab PO Q4H PRN #15 tablet 02/02/19 Unknown Rx Apixaban [Eliquis] 2.5 mg PO Q12HR tablet 02/02/19 Unknown Rx Epoetin Prashant 10,000 Unit [Procrit] 10,000 unit SUB-Q KATERYNA PRN vial 02/02/19 Unknown Rx Lisinopril [Zestril TAB] 5 mg PO QDAY #30 tablet 02/02/19 Unknown Rx traMADol [Ultram] 50 mg PO Q6HR PRN #10 tablet 02/08/19 Unknown Rx Allergies Allergy/AdvReac Type Severity Reaction Status Date / Time aspirin Allergy Unknown Verified 01/02/19 14:41 pork derived (porcine) Allergy Rash Verified 01/02/19 14:41 venom-honey bee Allergy Anaphylaxis Verified 01/02/19 14:41 [bee venom (honey bee)] Pork/Porcine Containing AdvReac Severe Nausea,VOMI Verified 01/02/19 14:41 Products TING ED Review of Systems Comment: All other systems reviewed and negative ED Past Medical Hx - Past Medical History Hx Hypertension: Yes Hx Heart Attack/AMI: No Hx Congestive Heart Failure: Yes Hx Diabetes: Yes Hx Deep Vein Thrombosis: Yes Hx Pulmonary Embolism: No Hx Liver Disease: Yes Hx Renal Disease: No Hx Arthritis: Yes (generalized) Hx Seizures: No Hx Kidney Stones: No Hx Psychiatric Treatment: Yes (PTSD) Hx Asthma: No Hx COPD: Yes Hx Tuberculosis: No Hx HIV: No Additional medical history: 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 abd surgery after war related ingury partial "stomach removal'. Left upper extremity amputation below elbow - Social History Smoking Status: Former Smoker Substance Use Type: None - Medications Home Medications: Home Medications Medication Instructions Recorded Confirmed Last Taken Type Apixaban [Eliquis] 2.5 mg PO Q12HR #60 tablet 12/29/18 02/15/19 01/01/19 Rx AtorvaSTATin [Lipitor] 40 mg PO QHS #30 tablet 12/29/18 02/15/19 01/01/19 Rx Famotidine [Pepcid] 10 mg PO BID #15 tablet 12/29/18 02/15/19 01/01/19 Rx amLODIPine [Norvasc] 10 mg PO DAILY #30 tablet 12/29/18 02/15/19 01/01/19 Rx hydrALAZINE [Apresoline TAB] 50 mg PO BID #60 tablet 12/29/18 02/15/19 01/01/19 Rx Carvedilol [Coreg] 25 mg PO BID #60 tablet 01/17/19 02/15/19 Unknown Rx Oxycodone HCl [oxyCODONE] 10 mg PO Q6H PRN #10 tablet 01/23/19 02/15/19 Unknown Rx Gabapentin [Neurontin] 300 mg PO Q12H PRN 01/30/19 02/15/19 Unknown History Insulin Regular, Human [HumuLIN R] 5 unit SQ QAM 01/30/19 02/15/19 1 Day Ago History ~01/29/19 diphenhydrAMINE [Benadryl CAP] 50 mg PO Q3D PRN 01/30/19 02/15/19 Unknown History Acetaminophen [Acetaminophen TAB] 2 tab PO Q4H PRN #15 tablet 02/02/19 02/15/19 Unknown Rx Apixaban [Eliquis] 2.5 mg PO Q12HR tablet 02/02/19 02/15/19 Unknown Rx Epoetin Prashant 10,000 Unit [Procrit] 10,000 unit SUB-Q KATERYNA PRN vial 02/02/19 02/15/19 Unknown Rx Lisinopril [Zestril TAB] 5 mg PO QDAY #30 tablet 02/02/19 02/15/19 Unknown Rx traMADol [Ultram] 50 mg PO Q6HR PRN #10 tablet 02/08/19 02/15/19 Unknown Rx ED Physical Exam - General Limitations: No Limitations General appearance: alert, in no apparent distress - Head Head exam: Present: atraumatic, normocephalic - Eye Eye exam: Present: normal appearance - ENT ENT exam: Present: mucous membranes moist - Neck Neck exam: Present: normal inspection - Respiratory Respiratory exam: Present: normal lung sounds bilaterally, rhonchi. Absent: respiratory distress, wheezes, rales - Cardiovascular Cardiovascular Exam: Present: normal rhythm, irregular rhythm. Absent: systolic murmur, diastolic murmur, rubs, gallop - GI/Abdominal GI/Abdominal exam: Present: soft, normal bowel sounds. Absent: distended, tenderness, guarding, rebound - Rectal Rectal exam: Present: deferred - Extremities Exam Extremities exam: Present: normal inspection - Back Exam Back exam: Present: normal inspection - Neurological Exam Neurological exam: Present: alert, oriented X3 - Psychiatric Psychiatric exam: Present: normal affect, normal mood - Skin Skin exam: Present: warm, dry, intact, normal color. Absent: rash ROGER score - Roger Score Age > 65: (1) Yes Aspirin use within the Past 7 Days: (0) No 3 or more CAD Risk Factors: (1) Yes 2 or more Angina events in past 24 hrs: (0) No Known CAD with more than 50% Stenosis: (0) No Elevated Cardiac Markers: (1) Yes ST Deviation Greater than 0.5mm: (0) No ROGER Score: 3 ED Medical Decision Making - EKG Data -: EKG Interpreted by Me - EKG Data 02/15/19 05:51 EKG shows a H of fibrillation with a rate of 91. [place] is leftward intervals are normal. Patient has occasional PVCs. Doesn't appear to be slight ST depression in V5 and V6. T waves inverted lateral leads. No ST segment elevations. ED Disposition Clinical Impression: Afib, Nonischemic cardiomyopathy, Anticoagulant long-term use, ESRD (end stage renal disease) on dialysis, Elevated troponin I level, Pleural effusion Disposition: OP ADMIT IP TO THIS HOSP Condition: Stable <SEROTOFF,ENEDINA - Last Filed: 02/16/19 06:14> Heart Score - HEART Score History: Slightly suspicious EKG: Non-specific Age: > 65 Risk factors: > 3 risk factors or hx of atherosclerotic disease Troponin: 1-3x normal limit HEART Score: 6 - Critical Actions Critical Actions: 4-6 pts:12-16.6% risk of adverse cardiac event. Should be admitted ED Review of Systems ROS: Stated complaint: PALPITATIONS Other details as noted in HPI ED Course Vital Signs 02/15/19 02/15/19 02/15/19 04:25 04:30 04:34 Temperature 98.1 F 98.1 F Pulse Rate 84 94 H 84 Respiratory 14 16 14 Rate Blood Pressure 165/112 165/112 Blood Pressure 165/112 [Left] O2 Sat by Pulse 100 100 100 Oximetry 02/15/19 02/15/19 02/15/19 05:01 05:31 06:01 Temperature Pulse Rate 87 74 84 Respiratory 15 16 21 Rate Blood Pressure 174/115 174/115 174/115 Blood Pressure [Left] O2 Sat by Pulse Oximetry 02/15/19 02/15/19 02/15/19 06:31 08:09 09:00 Temperature Pulse Rate 86 84 80 Respiratory 23 18 Rate Blood Pressure 177/125 187/136 173/117 Blood Pressure [Left] O2 Sat by Pulse 41 L Oximetry 02/15/19 02/15/19 02/15/19 09:30 10:00 10:21 Temperature 98.4 F Pulse Rate 82 75 Respiratory 20 21 Rate Blood Pressure 175/119 175/119 Blood Pressure [Left] O2 Sat by Pulse Oximetry 02/15/19 02/15/19 02/15/19 10:31 10:40 10:41 Temperature Pulse Rate 88 84 86 Respiratory 22 18 15 Rate Blood Pressure 175/119 175/119 Blood Pressure [Left] O2 Sat by Pulse 98 Oximetry 02/15/19 02/15/19 10:51 11:00 Temperature Pulse Rate 94 H Respiratory 24 Rate Blood Pressure 175/119 175/119 Blood Pressure [Left] O2 Sat by Pulse 34 L 81 L Oximetry - Reevaluation(s) Reevaluation #1: 02/15/19 07:31 Dr Quiles to admit patient in v/q at this time - Consultations Consultation #1: 02/15/19 06:22 d/W Dr Gomez, nephrology, he will follow in consultation - EJ/Peripheral Line Neck L Time Out Performed: Yes Indications: nurses unable to establis Skin Cleansed in Sterile Fashion: Yes Size: 20 Dressing Placed: Tegaderm Patient Tolerated Procedure: well ROGER score - Roger Score Age > 65: (1) Yes Aspirin use within the Past 7 Days: (0) No 3 or more CAD Risk Factors: (1) Yes 2 or more Angina events in past 24 hrs: (0) No Known CAD with more than 50% Stenosis: (0) No Elevated Cardiac Markers: (1) Yes ST Deviation Greater than 0.5mm: (0) No ROGER Score: 3 ED Medical Decision Making - Lab Data Result diagrams: 02/16/19 04:21 02/16/19 04:21 Vital Signs 02/15/19 02/15/19 02/15/19 04:25 04:30 04:34 Temperature 98.1 F 98.1 F Pulse Rate 84 94 H 84 Respiratory 14 16 14 Rate Blood Pressure 165/112 165/112 Blood Pressure 165/112 [Left] O2 Sat by Pulse 100 100 100 Oximetry 02/15/19 02/15/19 05:01 05:31 Temperature Pulse Rate 87 74 Respiratory 15 16 Rate Blood Pressure 174/115 174/115 Blood Pressure [Left] O2 Sat by Pulse Oximetry - Radiology Data Radiology results: report reviewed, image reviewed Print Report Referring Physician: HERMELINDA LAGUERRE Patient Name: NEENA GARCIA Date of : 1947-02-12 Sex: Male Report Date: 2019-02-15 Report Status: Finalized Findings [address] [address] XRay Report Signed Patient: NEENA GARCIA MR#: [id number] : 02/12/1947 Acct:[id number] Age/Sex: 72 / M ADM Date: 02/15/19 Loc: ED Attending Dr: Ordering Physician: HERMELINDA LAGUERRE MD Date of Service: 02/15/19 Procedure(s): XR chest 1V ap Accession Number(s): [id number] cc: HERMELINDA LAGUERRE MD Fluoro Time In Minutes: CHEST 1 VIEW INDICATION: chest pain. COMPARISON: 02/04/2019. FINDINGS: Support devices: Dialysis catheter unchanged. Heart: Stable cardiomegaly. Lungs/Pleura: Left basilar effusion/volume loss and mild vascular congestion re main. Additional findings: None. IMPRESSION: No significant change. Signer Name: Francois Ang MD Signed: 02/15/2019 5:14 AM Workstation Name: [id number] Transcribed By: ES Dictated By: Francois Ang MD Electronically Authenticated By: Francois Ang MD Signed Date/Time: 02/15/19 0514 Critical care attestation.: If time is entered above; I have spent that time in minutes in the direct care of this critically ill patient, excluding procedure time. ED Disposition Is pt being admited?: Yes Does the pt Need Aspirin: No (allergic)
[2019-02-15] MEDS ORDERED: MORPHINE IV ONE (06:16)
[2019-02-15 06:39] LABS: Basophils % (Auto) 1.1 % (0.0-1.8); Eosinophils # (Auto) 0.1 K/mm3 (0.0-0.4); Eosinophils % (Auto) 2.7 % (0.0-4.3); Hemoglobin 12.1 gm/dl (11.8-15.2); Lymphocytes # (Auto) 0.7 K/mm3 (1.2-5.4); Lymphocytes % (Auto) 23.7 % (13.4-35.0); Mean Corpuscular HGB Conc 33 % (32-34); Mean Corpuscular Volume 99 fl (84-94); Monocytes # (Auto) 0.3 K/mm3 (0.0-0.8); Monocytes % (Auto) 9.9 % (0.0-7.3); Platelet Count 97 K/mm3 (140-440); Red Blood Count 3.74 M/mm3 (3.65-5.03); Red Cell Distribution Width 16.4 % (13.2-15.2)
[2019-02-15 06:48] LABS: Partial Thromboplastin Time 37.8 Sec. (24.2-36.6)
[2019-02-15 06:59] LABS: Calcium 9.2 mg/dL (8.4-10.2)
[2019-02-15 07:15] LABS: Chol/HDL Ratio 1.63 %
[2019-02-15 07:18] LABS: INR 1.41 (0.87-1.13)
--- NOTE | 2019-02-15 07:48 | Nuclear Medicine Report ---
Nuclear medicine ventilation/perfusion lung imaging. 02/15/2019. HISTORY: Shortness of breath. COMPARISON: Chest x-ray 02/15/2019. Tracer: Xenon-133 gas 14.6 mCi ventilation and technetium 99m MAA 4.8 mCi IV injection. FINDINGS: Nuclear medicine ventilation/perfusion lung imaging performed. Negative for suspicious vent ilation or perfusion defect. There is diminished ventilation and perfusion which is symmetric on the left corresponding to left-sided pleural fluid and volume loss. IMPRESSION: Low probability for pulmonary embolus. Signer Name: Francois Ang MD Signed: 02/15/2019 7:44 AM Workstation Name: [id number]
[2019-02-15] MEDS ORDERED: NACL 0.9% 100 ML IV PRN ×2 (09:55→09:57)
--- NOTE | 2019-02-15 10:05 | Consultation ---
History of Present Illness - Reason for Consult Consult date: 02/15/19 end stage renal disease Requesting physician: ENEDINA GREENBERG - History of Present Illness This is a 72 y/o M with PMH of ESRD on HD, Afib on Eliquis, CHF (EF 10%), recurrent left pleural effusions s/p thoracentesis earlier this month, on home oxygen, PTSD, DVT, anemia, C. Diff on Abx, and HTN who presented to [facility] ED with c/o chest pain, palpitations, worsening shortness of breath, fatigue, and generalized weakness. Pt also reports having diarrhea for the past 2 days, pt states he was diagnosed with C. Diff about 3 weeks ago and has been on Abx every since then and was supposed to take Abx for about 1 month. CXR showed stable cardiomegaly and mild vascular congestion. This pt undergoes outpatient HD at [facility] every TTS, last HD treatment was yesterday, 2.5 liters removed. We were consulted to evaluate this pt who has ESRD. . Past History Past Medical History: anemia, dialysis, DVT, ESRD, heart failure, hypertension Past Surgical History: Other (thoracentesis) Medications and Allergies Allergies Allergy/AdvReac Type Severity Reaction Status Date / Time aspirin Allergy Unknown Verified 01/02/19 14:41 pork derived (porcine) Allergy Rash Verified 01/02/19 14:41 venom-honey bee Allergy Anaphylaxis Verified 01/02/19 14:41 [bee venom (honey bee)] Pork/Porcine Containing AdvReac Severe Nausea,VOMI Verified 01/02/19 14:41 Products TING Home Medications Medication Instructions Recorded Confirmed Last Taken Type Apixaban [Eliquis] 2.5 mg PO Q12HR #60 tablet 12/29/18 01/30/19 01/01/19 Rx AtorvaSTATin [Lipitor] 40 mg PO QHS #30 tablet 12/29/18 01/30/19 01/01/19 Rx Famotidine [Pepcid] 10 mg PO BID #15 tablet 12/29/18 01/30/19 01/01/19 Rx amLODIPine [Norvasc] 10 mg PO DAILY #30 tablet 12/29/18 01/30/19 01/01/19 Rx hydrALAZINE [Apresoline TAB] 50 mg PO BID #60 tablet 12/29/18 01/30/19 01/01/19 Rx Carvedilol [Coreg] 25 mg PO BID #60 tablet 01/17/19 01/30/19 Unknown Rx Oxycodone HCl [oxyCODONE] 10 mg PO Q6H PRN #10 tablet 01/23/19 01/30/19 Unknown Rx Gabapentin [Neurontin] 300 mg PO Q12H PRN 01/30/19 01/30/19 Unknown History Insulin Regular, Human [HumuLIN R] 5 unit SQ QAM 01/30/19 01/30/19 1 Day Ago History ~01/29/19 diphenhydrAMINE [Benadryl CAP] 50 mg PO Q3D PRN 01/30/19 01/30/19 Unknown History Acetaminophen [Acetaminophen TAB] 2 tab PO Q4H PRN #15 tablet 02/02/19 Unknown Rx Apixaban [Eliquis] 2.5 mg PO Q12HR tablet 02/02/19 Unknown Rx Epoetin Prashant 10,000 Unit [Procrit] 10,000 unit SUB-Q KATERYNA PRN vial 02/02/19 Unknown Rx Lisinopril [Zestril TAB] 5 mg PO QDAY #30 tablet 02/02/19 Unknown Rx traMADol [Ultram] 50 mg PO Q6HR PRN #10 tablet 02/08/19 Unknown Rx Active Meds: Active Medications Sodium Chloride (Nacl 0.9%) 100 mls @ 999 mls/hr IV KATERYNA PRN PRN Reason: Hypotension Sodium Chloride (Nacl 0.9%) 100 mls @ 999 mls/hr IV KATERYNA PRN PRN Reason: Hypotension Morphine Sulfate (Morphine) 2 mg IV Q4H PRN PRN Reason: Pain, Moderate (4-6) Review of Systems Constitutional: fatigue, weakness Cardiovascular: chest pain, palpitations, shortness of breath, dyspnea on exertion Respiratory: shortness of breath, dyspnea on exertion, home oxygen Gastrointestinal: diarrhea, no nausea, no vomiting, no constipation Musculoskeletal: muscle weakness, gait dysfunction Integumentary: darkening of skin, other (right arm dressing in place) Neurological: weakness Psychiatric: other (PTSD) Exam - Vital Signs Vital signs: Vital Signs Temp Pulse Resp BP Pulse Ox 98.1 F 84 14 165/112 100 02/15/19 04:25 02/15/19 04:25 02/15/19 04:25 02/15/19 04:25 02/15/19 04:25 - General Appearance General appearance: other (awake) EENT: ATNC Neck: Present: neck supple Respiratory: Decreased Breath Sounds Heart: irregularly irregular, S1S2, other (ACCESS: Right IJ Perm Catheter intact) Gastrointestinal: Present: normoactive bowel sounds Integumentary: other (right arm dressing in place) Neurologic: alert and oriented x3 Musculoskeletal: Present: other (no edema to BLE) Psychiatric: cooperative Results - Lab Results 02/15/19 06:21 02/15/19 06:21 Most recent lab results Calcium 9.2 mg/dL (8.4-10.2) 02/15/19 06:21 Assessment and Plan ESRD on HD Chest Pain Acute on Chronic Respiratory Failure Hx of recurrent left pleural effusions Anemia Atrial Fibrillation on Eliquis DM Type 2 on insulin Hx of DVT Hx of C. Diff Plan: -HD today for Ultrafiltration only -HD again tomorrow for UF and clearance -Assess need for HD on daily basis -Right IJ Perm Catheter intact -Right AVF not functional -No indication for Epogen at this time -Cardiology consulted -Renally dose meds -This pt undergoes outpatient HD at [facility] in [place] every TTS -Renal plan d/w Dr Lewis
--- NOTE | 2019-02-15 10:08 | History and Physical Report ---
History of Present Illness Date of examination: 02/15/19 Date of admission: 02/15/19 08:13 Chief complaint: Chest pain History of present illness: patient is 72 yo with ESRD on dialysis, CHF, [id number] mellitus type 2, COPD, PTSD, previous DVT. He presents with chest pain and shortness of breath for 1 day. Chest pain is 9/10, left sided, dull, with no radiation. Chest pain worse on exertion. He also complains of shortness of breath which is also worse on exertion. Patient is on dialysis and states he has been compliant and did not miss dialysis. he was seen and evaluated in ED. Labs show mild elevated Troponin which is chronic. Will admit for further evaluation. Past History Past Medical History: atrial fib, DVT, ESRD (on dialysis), hypertension, other (PTSD) Past Surgical History: Other (Back surgery, neck surgery) Social history: lives with family, full code Family history: no significant family history Medications and Allergies Allergies Allergy/AdvReac Type Severity Reaction Status Date / Time aspirin Allergy Unknown Verified 01/02/19 14:41 pork derived (porcine) Allergy Rash Verified 01/02/19 14:41 venom-honey bee Allergy Anaphylaxis Verified 01/02/19 14:41 [bee venom (honey bee)] Pork/Porcine Containing AdvReac Severe Nausea,VOMI Verified 01/02/19 14:41 Products TING Home Medications Medication Instructions Recorded Confirmed Last Taken Type Apixaban [Eliquis] 2.5 mg PO Q12HR #60 tablet 12/29/18 02/15/19 01/01/19 Rx AtorvaSTATin [Lipitor] 40 mg PO QHS #30 tablet 12/29/18 02/15/19 01/01/19 Rx Famotidine [Pepcid] 10 mg PO BID #15 tablet 12/29/18 02/15/19 01/01/19 Rx amLODIPine [Norvasc] 10 mg PO DAILY #30 tablet 12/29/18 02/15/19 01/01/19 Rx hydrALAZINE [Apresoline TAB] 50 mg PO BID #60 tablet 12/29/18 02/15/19 01/01/19 Rx Carvedilol [Coreg] 25 mg PO BID #60 tablet 01/17/19 02/15/19 Unknown Rx Oxycodone HCl [oxyCODONE] 10 mg PO Q6H PRN #10 tablet 01/23/19 02/15/19 Unknown Rx Gabapentin [Neurontin] 300 mg PO Q12H PRN 01/30/19 02/15/19 Unknown History Insulin Regular, Human [HumuLIN R] 5 unit SQ QAM 01/30/19 02/15/19 1 Day Ago History ~01/29/19 diphenhydrAMINE [Benadryl CAP] 50 mg PO Q3D PRN 01/30/19 02/15/19 Unknown History Acetaminophen [Acetaminophen TAB] 2 tab PO Q4H PRN #15 tablet 02/02/19 02/15/19 Unknown Rx Apixaban [Eliquis] 2.5 mg PO Q12HR tablet 02/02/19 02/15/19 Unknown Rx Epoetin Prashant 10,000 Unit [Procrit] 10,000 unit SUB-Q KATERYNA PRN vial 02/02/19 02/15/19 Unknown Rx Lisinopril [Zestril TAB] 5 mg PO QDAY #30 tablet 02/02/19 02/15/19 Unknown Rx traMADol [Ultram] 50 mg PO Q6HR PRN #10 tablet 02/08/19 02/15/19 Unknown Rx Active Meds: Active Medications Sodium Chloride (Nacl 0.9%) 100 mls @ 999 mls/hr IV KATERYNA PRN PRN Reason: Hypotension Sodium Chloride (Nacl 0.9%) 100 mls @ 999 mls/hr IV KATERYNA PRN PRN Reason: Hypotension Morphine Sulfate (Morphine) 2 mg IV Q4H PRN PRN Reason: Pain, Moderate (4-6) Review of Systems All systems: negative (No fever, no abd pain, no urinary symptoms. All other systems reviewed and are negative) Exam - Physical Exam Narrative exam: Gen: Not in acute distress, lying in bed HEENT: Normocephalic, atraumatic Neck: supple, no JVD Heart: S1 and S2 reg, no murmurs, rubs or gallop Lungs: Bibasilar crackles, no wheeze Abd: soft, mild epigastric tender, no rebound, non distended, normal BS, Ext: Left below elbow amputation, no clubbing, no cyanosis Neuro: Awake, alert, oriented X 3, no focal neurological signs - Constitutional Vitals: Temp Pulse Resp BP Pulse Ox 98.1 F 86 23 177/125 100 02/15/19 04:34 02/15/19 06:31 02/15/19 06:31 02/15/19 06:31 02/15/19 04:34 Results - Labs CBC & Chem 7: 02/16/19 04:21 02/16/19 04:21 Labs: Abnormal lab results 02/15/19 02/15/19 02/15/19 Range/Units 06:21 06:21 06:21 WBC 3.0 L (4.5-11.0) K/mm3 MCV 99 H (84-94) fl RDW 16.4 H (13.2-15.2) % Plt Count 97 L (140-440) K/mm3 [place] % (Auto) 9.9 H (0.0-7.3) % Lymph # 0.7 L (1.2-5.4) K/mm3 PT 16.9 H (12.2-14.9) Sec. INR 1.41 H (0.87-1.13) APTT 37.8 H (24.2-36.6) Sec. BUN 30 H (9-20) mg/dL Creatinine 5.5 H (0.8-1.5) mg/dL Glucose 111 H (75-100) mg/dL Troponin T 0.160 H* (0.00-0.029) ng/mL NT-Pro-B Natriuret Pep (0-900) pg/mL LDL Cholesterol Direct 29 L (50-130) mg/dL 02/15/19 02/15/19 Range/Units 06:21 08:14 WBC (4.5-11.0) K/mm3 MCV (84-94) fl RDW (13.2-15.2) % Plt Count (140-440) K/mm3 [place] % (Auto) (0.0-7.3) % Lymph # (1.2-5.4) K/mm3 PT (12.2-14.9) Sec. INR (0.87-1.13) APTT (24.2-36.6) Sec. BUN (9-20) mg/dL Creatinine (0.8-1.5) mg/dL Glucose (75-100) mg/dL Troponin T 0.163 H* (0.00-0.029) ng/mL NT-Pro-B Natriuret Pep 82615 H (0-900) pg/mL LDL Cholesterol Direct (50-130) mg/dL Assessment and Plan Chest pain. Admit to Telemetry Consult cardiology Troponins serially ESRD on dialysis -Sat says he had scheduled dialysis yesterday Nephrology following For dialysis today Afib continue Eliquis Acute on chronic CHF EF 25-30% Dialysis today. I discussed with Nephrology History of DVT On Eliquis CAD, non obstructive Medical management Nonischemic cardiomyopathy, EF 25-30% Hypertensive Urgency Hydralazine iv prn Resume home meds Adjust medications left pleural effusion Thrombocytopenia Full code status
[2019-02-15] MEDS: MORPHINE IV PRN ×3 (10:42→21:30)
[2019-02-15] MEDS ORDERED: MORPHINE ONE (10:42)
--- NOTE | 2019-02-15 11:14 | Consultation ---
History of Present Illness Consult date: 02/15/19 Consult reason: chest pain History of present illness: Patient is a 72-year old male with multiple hospital admissions. He has end- stage renal disease on hemodialysis. He has chronic atrial fibrillation and is on low dose eliquis therapy. He has severe dilated nonischemic cardiomyopathy and single vessel, nonobstructive disease of the LAD noted on a cardiac catheterization January of 2017. His latest cardiac workup was done at this hospital 2 weeks ago. He had a persantine thallium stress test that reports a no ischemia, ejection fraction 25-30% by echocardiogram. In addition, he has recurrent pleural effusion requiring frequent thoracentesis. Patient presents to the hospital admitted with atypical chest pain. Cardiac consultation has been requested. Patient admits compliance with dialysis. Chest x-ray reports a left basilar effusion. Low probability for PE by ventilation perfusion scan. An ECG is atrial fibrillation with a well controlled ventricular rate. Medications and Allergies Allergies Allergy/AdvReac Type Severity Reaction Status Date / Time aspirin Allergy Unknown Verified 01/02/19 14:41 pork derived (porcine) Allergy Rash Verified 01/02/19 14:41 venom-honey bee Allergy Anaphylaxis Verified 01/02/19 14:41 [bee venom (honey bee)] Pork/Porcine Containing AdvReac Severe Nausea,VOMI Verified 01/02/19 14:41 Products TING Home Medications Medication Instructions Recorded Confirmed Last Taken Type Apixaban [Eliquis] 2.5 mg PO Q12HR #60 tablet 12/29/18 01/30/19 01/01/19 Rx AtorvaSTATin [Lipitor] 40 mg PO QHS #30 tablet 12/29/18 01/30/19 01/01/19 Rx Famotidine [Pepcid] 10 mg PO BID #15 tablet 12/29/18 01/30/19 01/01/19 Rx amLODIPine [Norvasc] 10 mg PO DAILY #30 tablet 12/29/18 01/30/19 01/01/19 Rx hydrALAZINE [Apresoline TAB] 50 mg PO BID #60 tablet 12/29/18 01/30/19 01/01/19 Rx Carvedilol [Coreg] 25 mg PO BID #60 tablet 01/17/19 01/30/19 Unknown Rx traMADol [Ultram 50 MG tab] 50 mg PO Q4HR PRN #10 tablet 01/21/19 01/30/19 Unknown Rx Oxycodone HCl [oxyCODONE] 10 mg PO Q6H PRN #10 tablet 01/23/19 01/30/19 Unknown Rx Gabapentin [Neurontin] 300 mg PO Q12H PRN 01/30/19 01/30/19 Unknown History Insulin Regular, Human [HumuLIN R] 5 unit SQ QAM 01/30/19 01/30/19 1 Day Ago History ~01/29/19 diphenhydrAMINE [Benadryl CAP] 50 mg PO Q3D PRN 01/30/19 01/30/19 Unknown History Acetaminophen [Acetaminophen TAB] 2 tab PO Q4H PRN #15 tablet 02/02/19 Unknown Rx Apixaban [Eliquis] 2.5 mg PO Q12HR tablet 02/02/19 Unknown Rx Epoetin Prashant 10,000 Unit [Procrit] 10,000 unit SUB-Q KATERYNA PRN vial 02/02/19 Unknown Rx Lisinopril [Zestril TAB] 5 mg PO QDAY #30 tablet 02/02/19 Unknown Rx Vancomycin HCl 125 mg PO QID 10 Days capsule 02/02/19 Unknown Rx traMADol [Ultram] 50 mg PO Q6HR PRN #10 tablet 02/08/19 Unknown Rx Active Meds: Active Medications Sodium Chloride (Nacl 0.9%) 100 mls @ 999 mls/hr IV KATREYNA PRN PRN Reason: Hypotension Morphine Sulfate (Morphine) 2 mg IV Q4H PRN PRN Reason: Pain, Moderate (4-6) Last Admin: 02/15/19 10:42 Dose: 2 mg Documented by: Physical Examination Vital Signs Temp Pulse Resp BP Pulse Ox 98.1 F 84 14 165/112 100 02/15/19 04:25 02/15/19 04:25 02/15/19 04:25 02/15/19 04:25 02/15/19 04:25 General appearance: no acute distress, cachectic HEENT: Positive: PERRL Cardiac: Positive: irregularly irregular Lungs: Positive: Decreased Breath Sounds Neuro: Positive: Grossly Intact Extremities: Absent: edema Results 02/15/19 06:21 02/15/19 06:21 Coagulation 02/15/19 Range/Units 06:21 PT 16.9 H (12.2-14.9) Sec. INR 1.41 H (0.87-1.13) APTT 37.8 H (24.2-36.6) Sec. Lipids 02/15/19 Range/Units 06:21 Triglycerides 44 (2-149) mg/dL Cholesterol 80 (50-199) mg/dL HDL Cholesterol 49 (40-59) mg/dL Cholesterol/HDL Ratio 1.63 % CBC 02/15/19 Range/Units 06:21 WBC 3.0 L (4.5-11.0) K/mm3 RBC 3.74 (3.65-5.03) M/mm3 Hgb 12.1 (11.8-15.2) gm/dl Hct 37.0 (35.5-45.6) % Plt Count 97 L (140-440) K/mm3 Lymph # 0.7 L (1.2-5.4) K/mm3 [place] # 0.3 (0.0-0.8) K/mm3 Eos # 0.1 (0.0-0.4) K/mm3 Baso # 0.0 (0.0-0.1) K/mm3 Comprehensive Metabolic Panel 02/15/19 Range/Units 06:21 Sodium 139 (137-145) mmol/L Potassium 4.3 (3.6-5.0) mmol/L Chloride 102.1 (98-107) mmol/L Carbon Dioxide 23 (22-30) mmol/L BUN 30 H (9-20) mg/dL Creatinine 5.5 H (0.8-1.5) mg/dL Glucose 111 H (75-100) mg/dL Calcium 9.2 (8.4-10.2) mg/dL Assessment and Plan Atypical chest pain no ischemia by MPI 2 weeks ago Recurrent Left pleural effusion End-stage renal disease on hemodialysis Chronic atrial fibrillation on low dose eliquis therapy Dilated nonischemic cardiomyopathy ejection fraction 25-30% by echocardiogram 2 weeks ago DM type II PVD s/p left arm amputation Hypertension Thrombocytopenia, chronic Non-obstructive CAD [facility] 01/2017 revealed non-obstructive, single vessel disease of the proximal LAD recommended for medical therapy. Recommendations: Continue medical therapy for nonischemic cardiomyopathy and chronic systolic heart failure. Otherwise, conservative cardiac management.
[2019-02-15] MEDS ORDERED: BENADRYL PO PRN (11:51)
[2019-02-15] MEDS ORDERED: PROCRIT SUB-Q PRN (11:51)
[2019-02-15] MEDS ORDERED: NON-FORMULARY (Oxycodone Hcl [Oxycodone] 10 MG) PO PRN (11:51)
[2019-02-15] MEDS ORDERED: ULTRAM PO PRN (11:51)
[2019-02-15] MEDS ORDERED: NEURONTIN PO PRN (11:51)
[2019-02-15] MEDS ORDERED: TYLENOL PO PRN (11:51)
[2019-02-15] MEDS: PEPCID PO SCH ×2 (12:00→21:30)
[2019-02-15] MEDS ORDERED: PROVENTIL IH PRN (12:08)
[2019-02-15] MEDS ORDERED: ZOFRAN IV PRN (12:08)
[2019-02-15] MEDS ORDERED: SODIUM CHLORIDE FLUSH SYRINGE 10 ML IV PRN (12:08)
[2019-02-15] MEDS ORDERED: HALDOL IM PRN (12:19)
[2019-02-15] MEDS ORDERED: ROXICODONE PO PRN (12:29)
[2019-02-15] MEDS: APRESOLINE PO SCH ×2 (13:00→21:30)
[2019-02-15] MEDS: ZESTRIL PO SCH (13:00)
[2019-02-15] MEDS: ELIQUIS PO SCH ×2 (13:00→21:45)
[2019-02-15] MEDS: COREG PO SCH ×2 (13:00→21:30)
[2019-02-15] MEDS: NORVASC PO SCH (13:00)
[2019-02-15 18:54] LABS: Hepatitis B Surface Antigen Non-Reactive (Negative); Hepatitis C Virus Antibody Reactive (NonReactive)
[2019-02-15] MEDS: SODIUM CHLORIDE FLUSH SYRINGE 10 ML IV SCH (21:33)
[2019-02-16] MEDS: MORPHINE IV PRN ×4 (01:52→23:29)
[2019-02-16 05:03] LABS: Basophils # (Auto) 0.1 K/mm3 (0.0-0.1); Basophils % (Auto) 2.2 % (0.0-1.8); Eosinophils # (Auto) 0.1 K/mm3 (0.0-0.4); Eosinophils % (Auto) 4.1 % (0.0-4.3); Hematocrit 41.9 % (35.5-45.6); Hemoglobin 13.5 gm/dl (11.8-15.2); Lymphocytes # (Auto) 0.9 K/mm3 (1.2-5.4); Lymphocytes % (Auto) 24.8 % (13.4-35.0); Mean Corpuscular HGB Conc 32 % (32-34); Mean Corpuscular Volume 101 fl (84-94); Monocytes # (Auto) 0.3 K/mm3 (0.0-0.8); Monocytes % (Auto) 10.1 % (0.0-7.3); Red Blood Count 4.17 M/mm3 (3.65-5.03); Red Cell Distribution Width 16.5 % (13.2-15.2)
[2019-02-16 05:06] LABS: Platelet Count 79 K/mm3 (140-440)
[2019-02-16 05:27] LABS: Calcium 9.1 mg/dL (8.4-10.2)
[2019-02-16] MEDS ORDERED: HumuLIN R SUB-Q SCH (10:00)
[2019-02-16] MEDS: BENADRYL IV PRN ×2 (10:01→22:03)
--- NOTE | 2019-02-16 11:39 | Progress Note ---
Assessment and Plan - Patient Problems (1) Nonischemic cardiomyopathy Current Visit: Yes Status: Acute Plan to address problem: Medical therapy for nonischemic cardiomyopathy, atrial fibrillation and chronic systolic heart failure. Subjective Date of service: 02/16/19 Interval history: Patient is comfortable, no acute distress, currently undergoing hemodialysis in his room. Objective Vital Signs Temp Pulse Resp BP Pulse Ox 02/16/19 11:00 56 L 151/78 02/16/19 10:45 63 122/65 02/16/19 10:30 50 L 132/80 02/16/19 10:15 69 119/70 02/16/19 10:00 73 144/82 02/16/19 09:45 64 148/93 02/16/19 09:30 81 136/83 02/16/19 09:15 97.5 F L 106 H 16 123/86 02/16/19 09:10 87 129/80 02/16/19 08:11 97.5 F L 58 L 16 141/105 100 02/16/19 07:55 100 02/16/19 04:33 97.6 F 88 18 150/103 100 02/15/19 23:49 97.9 F 90 18 165/117 100 02/15/19 21:58 104 H 02/15/19 20:56 97.2 F L 61 18 115/42 02/15/19 20:45 59 L 102/59 02/15/19 20:30 55 L 108/39 02/15/19 20:26 24 02/15/19 20:15 62 122/35 02/15/19 20:00 51 L 109/63 02/15/19 19:59 96 02/15/19 19:45 54 L 107/57 02/15/19 19:30 70 100/37 02/15/19 19:15 84 163/94 02/15/19 19:00 100 H 145/97 02/15/19 18:45 89 173/73 02/15/19 18:40 84 02/15/19 18:30 94 H 152/96 02/15/19 18:15 116 H 177/90 02/15/19 18:00 108 H 173/133 02/15/19 17:45 84 158/116 02/15/19 17:33 98.4 F 90 17 182/126 02/15/19 15:55 17 02/15/19 15:19 169/113 02/15/19 13:00 69 164/100 - Physical Examination General: No Apparent Distress, Cachectic HEENT: Positive: PERRL Neck: Positive: neck supple Cardiac: Positive: Irregularly Regular Lungs: Positive: Decreased Breath Sounds Neuro: Positive: Grossly Intact Abdomen: Positive: Soft Skin: Positive: Clear Extremities: Absent: edema - Labs and Meds CBC 02/16/19 Range/Units 04:21 WBC 3.4 L (4.5-11.0) K/mm3 RBC 4.17 (3.65-5.03) M/mm3 Hgb 13.5 (11.8-15.2) gm/dl Hct 41.9 (35.5-45.6) % Plt Count 79 L (140-440) K/mm3 Lymph # 0.9 L (1.2-5.4) K/mm3 [place] # 0.3 (0.0-0.8) K/mm3 Eos # 0.1 (0.0-0.4) K/mm3 Baso # 0.1 (0.0-0.1) K/mm3 Comprehensive Metabolic Panel 02/16/19 Range/Units 04:21 Sodium 139 (137-145) mmol/L Potassium 4.3 (3.6-5.0) mmol/L Chloride 101.0 (98-107) mmol/L Carbon Dioxide 21 L (22-30) mmol/L BUN 39 H (9-20) mg/dL Creatinine 6.3 H (0.8-1.5) mg/dL Glucose 142 H (75-100) mg/dL Calcium 9.1 (8.4-10.2) mg/dL
[2019-02-16] MEDS: PEPCID PO SCH ×2 (12:54→21:55)
[2019-02-16] MEDS: APRESOLINE PO SCH ×2 (12:54→22:10)
[2019-02-16] MEDS: ELIQUIS PO SCH ×2 (12:54→21:55)
[2019-02-16] MEDS: ZESTRIL PO SCH (12:54)
[2019-02-16] MEDS: NORVASC PO SCH (12:54)
[2019-02-16] MEDS: SODIUM CHLORIDE FLUSH SYRINGE 10 ML IV SCH ×2 (12:55→21:57)
[2019-02-16] MEDS: COREG PO SCH (12:56)
--- NOTE | 2019-02-16 13:46 | Progress Note ---
Assessment and Plan ESRD on HD Chest Pain Acute on Chronic Respiratory Failure Hx of recurrent left pleural effusions Anemia Atrial Fibrillation on Eliquis DM Type 2 on insulin Hx of DVT Hx of C. Diff Plan: -s/p HD yesterday, HD again today. -Assess need for HD on daily basis -Right IJ Perm Catheter intact -Right AVF not functional -Cardiology consulted -Renally dose meds -This pt undergoes outpatient HD at [facility] in [place] every TTS Subjective Date of service: 02/16/19 Interval history: HD today. Objective - Exam Narrative Exam: General appearance: other (awake) EENT: ATNC Neck: Present: neck supple Respiratory: Decreased Breath Sounds Heart: irregularly irregular, S1S2, other (ACCESS: Right IJ Perm Catheter intact) Gastrointestinal: Present: normoactive bowel sounds Integumentary: other (right arm dressing in place) Neurologic: alert and oriented x3 Musculoskeletal: Present: other (no edema to BLE) Psychiatric: cooperative - Vital Signs Vital signs: Vital Signs - 12hr 02/16/19 02/16/19 02/16/19 04:33 07:55 08:11 Temperature 97.6 F 97.5 F L Pulse Rate 88 58 L Pulse Rate [ Apical] Respiratory 18 16 Rate Blood Pressure 150/103 141/105 O2 Sat by Pulse 100 100 100 Oximetry 02/16/19 02/16/19 02/16/19 09:10 09:15 09:30 Temperature 97.5 F L Pulse Rate 87 106 H 81 Pulse Rate [ Apical] Respiratory 16 Rate Blood Pressure 129/80 123/86 136/83 O2 Sat by Pulse Oximetry 02/16/19 02/16/19 02/16/19 09:45 10:00 10:15 Temperature Pulse Rate 64 84 69 Pulse Rate [ 84 Apical] Respiratory Rate Blood Pressure 148/93 144/82 119/70 O2 Sat by Pulse Oximetry 02/16/19 02/16/19 02/16/19 10:30 10:45 11:00 Temperature Pulse Rate 50 L 63 56 L Pulse Rate [ Apical] Respiratory Rate Blood Pressure 132/80 122/65 151/78 O2 Sat by Pulse Oximetry 02/16/19 02/16/19 02/16/19 11:15 11:30 11:45 Temperature Pulse Rate 43 L 50 L 54 L Pulse Rate [ Apical] Respiratory Rate Blood Pressure 143/65 135/67 110/51 O2 Sat by Pulse Oximetry 02/16/19 02/16/19 12:00 12:10 Temperature 97.5 F L Pulse Rate 53 L 65 Pulse Rate [ Apical] Respiratory 16 Rate Blood Pressure 118/62 151/93 O2 Sat by Pulse Oximetry - Lab 02/16/19 04:21 02/16/19 04:21 Most recent lab results Calcium 9.1 mg/dL (8.4-10.2) 02/16/19 04:21 Medications & Allergies - Medications Allergies/Adverse Reactions: Allergies aspirin Allergy (Verified 01/02/19 14:41) Unknown stomach cramps pork derived (porcine) Allergy (Verified 01/02/19 14:41) Rash venom-honey bee [bee venom (honey bee)] Allergy (Verified 01/02/19 14:41) Anaphylaxis Pork/Porcine Containing Products Adverse Reaction (Severe, Verified 01/02/19 14:41) Nausea,VOMITING Home Medications: Home Medications Medication Instructions Recorded Confirmed Last Taken Type Apixaban [Eliquis] 2.5 mg PO Q12HR #60 tablet 12/29/18 02/15/19 01/01/19 Rx AtorvaSTATin [Lipitor] 40 mg PO QHS #30 tablet 12/29/18 02/15/19 01/01/19 Rx Famotidine [Pepcid] 10 mg PO BID #15 tablet 12/29/18 02/15/19 01/01/19 Rx amLODIPine [Norvasc] 10 mg PO DAILY #30 tablet 12/29/18 02/15/19 01/01/19 Rx hydrALAZINE [Apresoline TAB] 50 mg PO BID #60 tablet 12/29/18 02/15/19 01/01/19 Rx Carvedilol [Coreg] 25 mg PO BID #60 tablet 01/17/19 02/15/19 Unknown Rx Oxycodone HCl [oxyCODONE] 10 mg PO Q6H PRN #10 tablet 01/23/19 02/15/19 Unknown Rx Gabapentin [Neurontin] 300 mg PO Q12H PRN 01/30/19 02/15/19 Unknown History Insulin Regular, Human [HumuLIN R] 5 unit SQ QAM 01/30/19 02/15/19 1 Day Ago History ~01/29/19 diphenhydrAMINE [Benadryl CAP] 50 mg PO Q3D PRN 01/30/19 02/15/19 Unknown History Acetaminophen [Acetaminophen TAB] 2 tab PO Q4H PRN #15 tablet 02/02/19 02/15/19 Unknown Rx Apixaban [Eliquis] 2.5 mg PO Q12HR tablet 02/02/19 02/15/19 Unknown Rx Epoetin Prashant 10,000 Unit [Procrit] 10,000 unit SUB-Q KATERYNA PRN vial 02/02/19 02/15/19 Unknown Rx Lisinopril [Zestril TAB] 5 mg PO QDAY #30 tablet 02/02/19 02/15/19 Unknown Rx traMADol [Ultram] 50 mg PO Q6HR PRN #10 tablet 02/08/19 02/15/19 Unknown Rx Active Medications: Generic Name Dose Route Start Last Admin Trade Name Freq PRN Reason Stop Dose Admin Acetaminophen 650 mg 02/15/19 11:51 Tylenol PO Q4H PRN Pain MILD(1-3)/Fever >100.5/DOUGLAS Albuterol 2.5 mg 02/15/19 12:08 Proventil IH Q4HRT PRN Shortness Of Breath Amlodipine Besylate 10 mg 02/15/19 12:00 02/16/19 12:54 Norvasc PO 10 mg DAILY BEAN Administration Apixaban 2.5 mg 02/15/19 13:00 02/16/19 12:54 Eliquis PO 2.5 mg Q12HR BEAN Administration Protocol Atorvastatin Calcium 40 mg 02/15/19 22:00 02/15/19 21:30 Lipitor PO 40 mg QHS BEAN Administration Diphenhydramine HCl 50 mg 02/15/19 11:51 02/15/19 23:03 Benadryl PO 50 mg Q3D PRN Administration Itching Diphenhydramine HCl 25 mg 02/16/19 09:29 02/16/19 10:01 Benadryl IV 25 mg Q6H PRN Administration Itching Epoetin Prashant 10,000 unit 02/15/19 11:51 Procrit SUB-Q KATERYNA PRN hemodialysis Famotidine 10 mg 02/15/19 12:00 02/16/19 12:54 Pepcid PO 10 mg BID BEAN Administration Gabapentin 300 mg 02/15/19 11:51 Neurontin PO Q12H PRN Pain , Severe (7-10) Haloperidol Lactate 5 mg 02/15/19 12:19 Haldol IM Q6H PRN Agitation Hydralazine HCl 50 mg 02/15/19 12:00 02/16/19 12:54 Apresoline PO 50 mg BID BEAN Administration Sodium Chloride 100 mls @ 999 mls/hr 02/15/19 09:55 Nacl 0.9% IV KATERYNA PRN Hypotension Insulin Human Regular 5 units 02/16/19 10:00 02/16/19 12:56 Humulin R SUB-Q Not Given QAM BEAN Lisinopril 5 mg 02/15/19 12:00 02/16/19 12:54 Zestril PO 5 mg QDAY BEAN Administration Morphine Sulfate 2 mg 02/15/19 09:59 02/16/19 06:03 Morphine IV 2 mg Q4H PRN Administration Pain, Moderate (4-6) Ondansetron HCl 4 mg 02/15/19 12:08 Zofran IV Q8H PRN Nausea And Vomiting Oxycodone HCl 10 mg 02/15/19 12:29 Roxicodone PO Q6H PRN Pain, Moderate (4-6) Sodium Chloride 10 ml 02/15/19 22:00 02/16/19 12:55 Sodium Chloride Flush Syringe 10 Ml IV 10 ml BID BEAN Administration Sodium Chloride 10 ml 02/15/19 12:08 Sodium Chloride Flush Syringe 10 Ml IV PRN PRN LINE FLUSH Tramadol HCl 50 mg 02/15/19 11:51 Ultram PO Q6HR PRN Pain
--- NOTE | 2019-02-16 16:52 | Progress Note ---
Assessment and Plan Assessment and plan: Chest pain. Admitted to Telemetry Cardiology following Troponins serially ESRD on dialysis -Sat says he has been compliantad scheduled dialysis yesterday Nephrology following Dialysis yesterday, and also today Afib continue Eliquis Acute on chronic CHF EF 25-30% dialysis History of DVT On Eliquis CAD, non obstructive Medical management Nonischemic cardiomyopathy, EF 25-30% Hypertensive Urgency Hydralazine iv prn Resumed home meds Adjust medications left pleural effusion Thrombocytopenia Full code status History Interval history: feels better No more chest pain Hospitalist Physical - Physical exam Narrative exam: Gen: Not in acute distress, lying in bed HEENT: Normocephalic, atraumatic Neck: supple, no JVD Heart: S1 and S2 irreg, no murmurs, rubs or gallop Lungs: Bibasilar crackles, no wheeze Abd: soft, mild epigastric tender, no rebound, non distended, normal BS, Ext: Left below elbow amputation, no clubbing, no cyanosis Neuro: Awake, alert, oriented X 3, no focal neurological signs - Constitutional Vitals: Temp Pulse Resp BP Pulse Ox 97.5 F L 65 16 151/93 100 02/16/19 12:10 02/16/19 12:10 02/16/19 12:10 02/16/19 12:10 02/16/19 08:11 General appearance: Present: no acute distress, cachectic Results - Labs CBC & Chem 7: 02/16/19 04:21 02/16/19 04:21 Labs: Laboratory Last Values WBC 3.4 K/mm3 (4.5-11.0) L 02/16/19 04:21 RBC 4.17 M/mm3 (3.65-5.03) 02/16/19 04:21 Hgb 13.5 gm/dl (11.8-15.2) 02/16/19 04:21 Hct 41.9 % (35.5-45.6) 02/16/19 04:21 MCV 101 fl (84-94) H 02/16/19 04:21 MCH 32 pg (28-32) 02/16/19 04:21 MCHC 32 % (32-34) 02/16/19 04:21 RDW 16.5 % (13.2-15.2) H 02/16/19 04:21 Plt Count 79 K/mm3 (140-440) L 02/16/19 04:21 Lymph % (Auto) 24.8 % (13.4-35.0) 02/16/19 04:21 [place] % (Auto) 10.1 % (0.0-7.3) H 02/16/19 04:21 Eos % (Auto) 4.1 % (0.0-4.3) 02/16/19 04:21 Baso % (Auto) 2.2 % (0.0-1.8) H 02/16/19 04:21 Lymph # 0.9 K/mm3 (1.2-5.4) L 02/16/19 04:21 [place] # 0.3 K/mm3 (0.0-0.8) 02/16/19 04:21 Eos # 0.1 K/mm3 (0.0-0.4) 02/16/19 04:21 Baso # 0.1 K/mm3 (0.0-0.1) 02/16/19 04:21 Seg Neutrophils % 58.8 % (40.0-70.0) 02/16/19 04:21 Seg Neutrophils # 2.0 K/mm3 (1.8-7.7) 02/16/19 04:21 PT 16.9 Sec. (12.2-14.9) H 02/15/19 06:21 INR 1.41 (0.87-1.13) H 02/15/19 06:21 APTT 37.8 Sec. (24.2-36.6) H 02/15/19 06:21 Sodium 139 mmol/L (137-145) 02/16/19 04:21 Potassium 4.3 mmol/L (3.6-5.0) 02/16/19 04:21 Chloride 101.0 mmol/L (98-107) 02/16/19 04:21 Carbon Dioxide 21 mmol/L (22-30) L 02/16/19 04:21 21 mmol/L 02/16/19 04:21 BUN 39 mg/dL (9-20) H 02/16/19 04:21 6.3 mg/dL (0.8-1.5) H 02/16/19 04:21 Estimated GFR 11 ml/min 02/16/19 04:21 6 % 02/16/19 04:21 Glucose 142 mg/dL (75-100) H 02/16/19 04:21 Calcium 9.1 mg/dL (8.4-10.2) 02/16/19 04:21 0.163 ng/mL (0.00-0.029) H* 02/15/19 08:14 NT-Pro-B Natriuret Pep 09968 pg/mL (0-900) H 02/15/19 06:21 Triglycerides 44 mg/dL (2-149) 02/15/19 06:21 Cholesterol 80 mg/dL (50-199) 02/15/19 06:21 29 mg/dL (50-130) L 02/15/19 06:21 49 mg/dL (40-59) 02/15/19 06:21 1.63 % 02/15/19 06:21 Hepatitis A IgM Ab Non-reactive (NonReactive) 02/15/19 17:53 Hep Bs Antigen Non-reactive (Negative) 02/15/19 17:53 Hep B Core IgM Ab Non-reactive (NonReactive) 02/15/19 17:53 Reactive (NonReactive) A 02/15/19 17:53 Active Medications - Current Medications Current Medications: Generic Name Dose Route Start Last Admin Trade Name Freq PRN Reason Stop Dose Admin Acetaminophen 650 mg 02/15/19 11:51 Tylenol PO Q4H PRN Pain MILD(1-3)/Fever >100.5/DOUGLAS Albuterol 2.5 mg 02/15/19 12:08 Proventil IH Q4HRT PRN Shortness Of Breath Amlodipine Besylate 10 mg 02/15/19 12:00 02/16/19 12:54 Norvasc PO 10 mg DAILY BEAN Administration Apixaban 2.5 mg 02/15/19 13:00 02/16/19 12:54 Eliquis PO 2.5 mg Q12HR BEAN Administration Protocol Atorvastatin Calcium 40 mg 02/15/19 22:00 02/15/19 21:30 Lipitor PO 40 mg QHS BEAN Administration Diphenhydramine HCl 50 mg 02/15/19 11:51 02/15/19 23:03 Benadryl PO 50 mg Q3D PRN Administration Itching Diphenhydramine HCl 25 mg 02/16/19 09:29 02/16/19 10:01 Benadryl IV 25 mg Q6H PRN Administration Itching Epoetin Prashant 10,000 unit 02/15/19 11:51 Procrit SUB-Q KATERYNA PRN hemodialysis Famotidine 10 mg 02/15/19 12:00 02/16/19 12:54 Pepcid PO 10 mg BID BEAN Administration Gabapentin 300 mg 02/15/19 11:51 Neurontin PO Q12H PRN Pain , Severe (7-10) Haloperidol Lactate 5 mg 02/15/19 12:19 Haldol IM Q6H PRN Agitation Hydralazine HCl 50 mg 02/15/19 12:00 02/16/19 12:54 Apresoline PO 50 mg BID BEAN Administration Sodium Chloride 100 mls @ 999 mls/hr 02/15/19 09:55 Nacl 0.9% IV KATERYNA PRN Hypotension Insulin Human Regular 5 units 02/16/19 10:00 02/16/19 12:56 Humulin R SUB-Q Not Given QAM [facility] Lisinopril 5 mg 02/15/19 12:00 02/16/19 12:54 Zestril PO 5 mg QDAY BEAN Administration Morphine Sulfate 2 mg 02/15/19 09:59 02/16/19 16:21 Morphine IV 2 mg Q4H PRN Administration Pain, Moderate (4-6) Ondansetron HCl 4 mg 02/15/19 12:08 Zofran IV Q8H PRN Nausea And Vomiting Oxycodone HCl 10 mg 02/15/19 12:29 Roxicodone PO Q6H PRN Pain, Moderate (4-6) Sodium Chloride 10 ml 02/15/19 22:00 02/16/19 12:55 Sodium Chloride Flush Syringe 10 Ml IV 10 ml BID BEAN Administration Sodium Chloride 10 ml 02/15/19 12:08 Sodium Chloride Flush Syringe 10 Ml IV PRN PRN LINE FLUSH Tramadol HCl 50 mg 02/15/19 11:51 Ultram PO Q6HR PRN Pain Nutrition/Malnutrition Assess - Dietary Evaluation Nutrition/Malnutrition Findings: Nutrition Notes Start: 02/16/19 12:18 Freq: Status: Active Protocol: Document 02/16/19 12:18 RM (Rec: 02/16/19 12:27 RM [id number]) Nutrition Notes Need for 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 Joe 20 points. Pt is known to me from previous admissions and does not like Nepro. 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 Stated that his appetite is improving now and that he eats 50% of his meals here. Noted orbital wasting. 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 No Is Patient Ambulatory and/or Out of Bed No REE-([facility]-confined to bed) 1542.912 Kcal/Kg value to use for calculation 35 Approximate Energy Requirements Using 1873 kcal/Kg Calculation Used for Recommendations Kcal/kg Additional Notes Protein Needs: 64-80g (1.2-1. 5g/kg) Fluid Needs: 1 ml/kcal Nutrition Intervention Change Diet Order: Continue current Add Supplement/Snack (indicate name/kcal Ensure Clear 1 daily (M/W/F) /protein ) Provides kCal: 240 Provides Protein (gm) 8 Goal #1 Meet at least 75% of calorie and protein needs via PO and ONS intakes Goal #2 Wt gain/maintenance Anticipated Discharge Needs: Renal diet Follow-Up By: 02/19/19 Additional Comments Follow for PO and ONS intakes
[2019-02-17] MEDS: MORPHINE IV PRN ×2 (03:49→13:07)
[2019-02-17] MEDS: ZESTRIL PO SCH (10:28)
[2019-02-17] MEDS: PEPCID PO SCH (10:28)
[2019-02-17] MEDS: APRESOLINE PO SCH (10:28)
[2019-02-17] MEDS: SODIUM CHLORIDE FLUSH SYRINGE 10 ML IV SCH (10:28)
[2019-02-17] MEDS: BENADRYL IV PRN (10:28)
[2019-02-17] MEDS: ELIQUIS PO SCH (10:28)
[2019-02-17] MEDS: NORVASC PO SCH (10:28)
[2019-02-17 12:38] LABS: Calcium 9.5 mg/dL (8.4-10.2)
--- NOTE | 2019-02-17 14:08 | Progress Note ---
Assessment and Plan ESRD on HD Chest Pain Acute on Chronic Respiratory Failure Hx of recurrent left pleural effusions Anemia Atrial Fibrillation on Eliquis DM Type 2 on insulin Hx of DVT Hx of C. Diff Plan: -s/p HD yesterday, no HD today. -Assess need for HD on daily basis -Right IJ Perm Catheter intact -Right AVF not functional -Cardiology consulted -Renally dose meds -This pt undergoes outpatient HD at [facility] in [place] every TTS Subjective Date of service: 02/17/19 Interval history: Tolerated HD yesterday. Objective - Exam Narrative Exam: General appearance: other (awake) EENT: ATNC Neck: Present: neck supple Respiratory: Decreased Breath Sounds Heart: irregularly irregular, S1S2, other (ACCESS: Right IJ Perm Catheter intact) Gastrointestinal: Present: normoactive bowel sounds Integumentary: other (right arm dressing in place) Neurologic: alert and oriented x3 Musculoskeletal: Present: other (no edema to BLE) Psychiatric: cooperative - Vital Signs Vital signs: Vital Signs - 12hr 02/17/19 02/17/19 02/17/19 04:25 08:35 10:00 Temperature 97.5 F L 97.4 F L Pulse Rate 88 69 88 Pulse Rate [ 88 Apical] Respiratory 20 14 Rate Blood Pressure 108/80 104/80 O2 Sat by Pulse 99 100 Oximetry - Lab 02/16/19 04:21 02/17/19 11:29 Most recent lab results Calcium 9.5 mg/dL (8.4-10.2) 02/17/19 11:29 Medications & Allergies - Medications Allergies/Adverse Reactions: Allergies aspirin Allergy (Verified 01/02/19 14:41) Unknown stomach cramps pork derived (porcine) Allergy (Verified 01/02/19 14:41) Rash venom-honey bee [bee venom (honey bee)] Allergy (Verified 01/02/19 14:41) Anaphylaxis Pork/Porcine Containing Products Adverse Reaction (Severe, Verified 01/02/19 14:41) Nausea,VOMITING Home Medications: Home Medications Medication Instructions Recorded Confirmed Last Taken Type Apixaban [Eliquis] 2.5 mg PO Q12HR #60 tablet 12/29/18 02/15/19 01/01/19 Rx AtorvaSTATin [Lipitor] 40 mg PO QHS #30 tablet 12/29/18 02/15/19 01/01/19 Rx Famotidine [Pepcid] 10 mg PO BID #15 tablet 12/29/18 02/15/19 01/01/19 Rx amLODIPine [Norvasc] 10 mg PO DAILY #30 tablet 12/29/18 02/15/19 01/01/19 Rx hydrALAZINE [Apresoline TAB] 50 mg PO BID #60 tablet 12/29/18 02/15/19 01/01/19 Rx Carvedilol [Coreg] 25 mg PO BID #60 tablet 01/17/19 02/15/19 Unknown Rx Oxycodone HCl [oxyCODONE] 10 mg PO Q6H PRN #10 tablet 01/23/19 02/15/19 Unknown Rx Gabapentin [Neurontin] 300 mg PO Q12H PRN 01/30/19 02/15/19 Unknown History Insulin Regular, Human [HumuLIN R] 5 unit SQ QAM 01/30/19 02/15/19 1 Day Ago History ~01/29/19 diphenhydrAMINE [Benadryl CAP] 50 mg PO Q3D PRN 01/30/19 02/15/19 Unknown History Acetaminophen [Acetaminophen TAB] 2 tab PO Q4H PRN #15 tablet 02/02/19 02/15/19 Unknown Rx Apixaban [Eliquis] 2.5 mg PO Q12HR tablet 02/02/19 02/15/19 Unknown Rx Epoetin Prashant 10,000 Unit [Procrit] 10,000 unit SUB-Q KATERYNA PRN vial 02/02/19 02/15/19 Unknown Rx Lisinopril [Zestril TAB] 5 mg PO QDAY #30 tablet 02/02/19 02/15/19 Unknown Rx traMADol [Ultram] 50 mg PO Q6HR PRN #10 tablet 02/08/19 02/15/19 Unknown Rx Active Medications: Generic Name Dose Route Start Last Admin Trade Name Freq PRN Reason Stop Dose Admin Acetaminophen 650 mg 02/15/19 11:51 Tylenol PO Q4H PRN Pain MILD(1-3)/Fever >100.5/DOUGLAS Albuterol 2.5 mg 02/15/19 12:08 Proventil IH Q4HRT PRN Shortness Of Breath Amlodipine Besylate 10 mg 02/15/19 12:00 02/17/19 10:28 Norvasc PO 10 mg DAILY BEAN Administration Apixaban 2.5 mg 02/15/19 13:00 02/17/19 10:28 Eliquis PO 2.5 mg Q12HR BEAN Administration Protocol Atorvastatin Calcium 40 mg 02/15/19 22:00 02/16/19 21:55 Lipitor PO 40 mg QHS BEAN Administration Diphenhydramine HCl 25 mg 02/16/19 09:29 02/17/19 10:28 Benadryl IV 25 mg Q6H PRN Administration Itching Epoetin Prashant 10,000 unit 02/15/19 11:51 Procrit SUB-Q KATERYNA PRN hemodialysis Famotidine 10 mg 02/15/19 12:00 02/17/19 10:28 Pepcid PO 10 mg BID BEAN Administration Gabapentin 300 mg 02/15/19 11:51 Neurontin PO Q12H PRN Pain , Severe (7-10) Haloperidol Lactate 5 mg 02/15/19 12:19 Haldol IM Q6H PRN Agitation Hydralazine HCl 50 mg 02/15/19 12:00 02/17/19 10:28 Apresoline PO 50 mg BID BEAN Administration Sodium Chloride 100 mls @ 999 mls/hr 02/15/19 09:55 Nacl 0.9% IV KATERYNA PRN Hypotension Lisinopril 5 mg 02/15/19 12:00 02/17/19 10:28 Zestril PO 5 mg QDAY BEAN Administration Morphine Sulfate 2 mg 02/15/19 09:59 02/17/19 13:07 Morphine IV 2 mg Q4H PRN Administration Pain, Moderate (4-6) Ondansetron HCl 4 mg 02/15/19 12:08 02/17/19 03:49 Zofran IV 4 mg Q8H PRN Administration Nausea And Vomiting Oxycodone HCl 10 mg 02/15/19 12:29 Roxicodone PO Q6H PRN Pain, Moderate (4-6) Sodium Chloride 10 ml 02/15/19 22:00 02/17/19 10:28 Sodium Chloride Flush Syringe 10 Ml IV 10 ml BID BEAN Administration Sodium Chloride 10 ml 02/15/19 12:08 Sodium Chloride Flush Syringe 10 Ml IV PRN PRN LINE FLUSH Tramadol HCl 50 mg 02/15/19 11:51 Ultram PO Q6HR PRN Pain
--- NOTE | 2019-02-17 14:22 | Progress Note ---
Assessment and Plan - Patient Problems (1) Nonischemic cardiomyopathy Current Visit: Yes Status: Acute Plan to address problem: Medical therapy for nonischemic cardiomyopathy, atrial fibrillation and chronic systolic heart failure. Subjective Date of service: 02/17/19 Interval history: Patient is comfortable, no acute distress, no new cardiac complaints. Objective Vital Signs Temp Pulse Pulse Resp BP Pulse Ox 02/17/19 10:00 88 88 02/17/19 08:35 97.4 F L 69 14 104/80 100 02/17/19 04:25 97.5 F L 88 20 108/80 99 02/16/19 23:53 97.7 F 71 20 107/67 99 02/16/19 22:00 114 H 02/16/19 20:22 24 02/16/19 19:49 98.3 F 55 L 20 87/64 100 02/16/19 16:23 98.7 F 101 H 20 115/86 98 - Physical Examination General: No Apparent Distress, Cachectic HEENT: Positive: PERRL Neck: Positive: neck supple Cardiac: Positive: Reg Rate and Rhythm Lungs: Positive: Decreased Breath Sounds Neuro: Positive: Grossly Intact Abdomen: Positive: Soft Skin: Positive: Clear Extremities: Absent: edema - Labs and Meds Comprehensive Metabolic Panel 02/17/19 Range/Units 11:29 Sodium 137 (137-145) mmol/L Potassium 4.1 (3.6-5.0) mmol/L Chloride 97.1 L (98-107) mmol/L Carbon Dioxide 23 (22-30) mmol/L BUN 29 H (9-20) mg/dL Creatinine 5.5 H (0.8-1.5) mg/dL Glucose 100 (75-100) mg/dL Calcium 9.5 (8.4-10.2) mg/dL
--- NOTE | 2019-02-17 16:05 | Discharge Summary ---
Providers - Providers Date of Admission: 02/15/19 08:13 Date of discharge: 02/17/19 Attending physician: ENEDINA WASHINGTON 02/15/19 06:16 Consult to Physician [CONS] Urgent Comment: Consulting Provider: GUILLE DEL REAL Physician Instructions: Reason For Exam: esrd 02/15/19 09:03 Consult to Physician [CONS] Routine Comment: CLD OFC TO ADV OF CONSULT @0958 Consulting Provider: COLLEEN SAGE Physician Instructions: Reason For Exam: CHF [facility] Condition: Fair Disposition: DC-01 TO HOME OR SELFCARE Core Measure Documentation - Palliative Care Palliative Care/ Comfort Measures: Not Applicable - Core Measures Any of the following diagnoses?: heart failure - Heart Failure Discharge Requirements BEATRICE/ARB for LVSD if EF <40%: Yes Beta jett at discharge: Yes Exam - Constitutional Vitals: Temp Pulse Resp BP Pulse Ox 97.4 F L 88 14 104/80 100 02/17/19 08:35 02/17/19 10:00 02/17/19 08:35 02/17/19 08:35 02/17/19 08:35 Plan Activity: advance as tolerated Diet: low fat, low cholesterol, low salt Plan of Treatment: 1.Follow up with PCP in 1 week 2.Continue routine hemodialysis as scheduled 3.Follow up with cardiology in 1 week Assessment: 1.Fluid overload 2.Acute on chronic systolic CHF 3.ESRD on dialysis Follow up with: JUANITA ROCKWELL MD [Primary Care Provider] - 7 Days
[2019-02-17 17:40] VITALS: BP 102/62
== END 2019-02-17 17:54 | disposition home or self-care (01) | DRG 291 ==
LOC: ED 04:20 → 4A 08:13
PROVIDERS: ADMIT Internal Medicine; ATTEND Internal Medicine
PROC: 5A1D70Z Performance of Urinary Filtration, Intermittent, Less than 6 Hours Per Day (ICD-10-PCS; principal; 2019-02-15)
PROC: 05HY33Z Insertion of Infusion Device into Upper Vein, Percutaneous Approach (ICD-10-PCS; 2019-02-15)
PROC: 5A1D70Z Performance of Urinary Filtration, Intermittent, Less than 6 Hours Per Day (ICD-10-PCS; 2019-02-16)
DX: I13.2 Hypertensive heart and chronic kidney disease with heart failure and with stage 5 chronic kidney disease, or end stage renal disease (principal); N18.6 End stage renal disease; J96.20 Acute and chronic respiratory failure, unspecified whether with hypoxia or hypercapnia; I50.23 Acute on chronic systolic (congestive) heart failure; I48.2 Chronic atrial fibrillation; I25.10 Atherosclerotic heart disease of native coronary artery without angina pectoris; I16.0 Hypertensive urgency; J44.9 Chronic obstructive pulmonary disease, unspecified; D63.8 Anemia in other chronic diseases classified elsewhere; D69.6 Thrombocytopenia, unspecified; E11.22 Type 2 diabetes mellitus with diabetic chronic kidney disease; I42.0 Dilated cardiomyopathy; Z79.01 Long term (current) use of anticoagulants; Z99.2 Dependence on renal dialysis; Z79.4 Long term (current) use of insulin; Z79.51 Long term (current) use of inhaled steroids; Z88.3 Allergy status to other anti-infective agents; Z91.030 Bee allergy status; Z91.018 Allergy to other foods; Z86.718 Personal history of other venous thrombosis and embolism; Z79.899 Other long term (current) drug therapy; Z99.81 Dependence on supplemental oxygen; Z90.49 Acquired absence of other specified parts of digestive tract; Z89.212 Acquired absence of left upper limb below elbow; Z87.891 Personal history of nicotine dependence; T82.591A Other mechanical complication of surgically created arteriovenous shunt, initial encounter; Y83.8 Other surgical procedures as the cause of abnormal reaction of the patient, or of later complication, without mention of misadventure at the time of the procedure; Y92.89 Other specified places as the place of occurrence of the external cause
CPT/HCPCS: 36415; 71045; 78582; 80048; 80061; 80074; 82962; 83036; 83880; 84484; 85025; 85610; 85730; 93005; 93010; 94760; 96374; G0378; A9270-GY; A9540; A9558; J1200; J2270; J2405

== ENCOUNTER 2019-02-20 21:57 | Emergency (ER) | payer MEDICAID ==
--- NOTE | 2019-02-20 23:23 | Emergency Department Report ---
ED General Adult HPI - General Chief complaint: Fall Stated complaint: RT SIDE LATERAL NECK PAIN Time Seen by Provider: 02/20/19 22:14 Source: EMS Mode of arrival: Stretcher Limitations: Physical Limitation - History of Present Illness Initial comments: Patient presents to the emergency department with the chief complaint of neck pain. Patient states he fell out of his whole hospital bed striking his head and injuring his neck. Patient denies loss of consciousness but does complain of neck pain and a headache. Patient denies any other pain or injury. -: Sudden Location: head, neck Severity scale (0 -10): 2 Consistency: constant Improves with: rest Worsens with: movement Associated Symptoms: denies other symptoms Treatments Prior to Arrival: none - Related Data Home Medications Medication Instructions Recorded Confirmed Last Taken Gabapentin [Neurontin] 300 mg PO Q12H PRN 01/30/19 02/15/19 Unknown diphenhydrAMINE [Benadryl CAP] 50 mg PO Q3D PRN 01/30/19 02/15/19 Unknown Previous Rx's Medication Instructions Recorded Last Taken Type Apixaban [Eliquis] 2.5 mg PO Q12HR #60 tablet 12/29/18 01/01/19 Rx AtorvaSTATin [Lipitor] 40 mg PO QHS #30 tablet 12/29/18 01/01/19 Rx Famotidine [Pepcid] 10 mg PO BID #15 tablet 12/29/18 01/01/19 Rx amLODIPine [Norvasc] 10 mg PO DAILY #30 tablet 12/29/18 01/01/19 Rx hydrALAZINE [Apresoline TAB] 50 mg PO BID #60 tablet 12/29/18 01/01/19 Rx Carvedilol [Coreg] 25 mg PO BID #60 tablet 01/17/19 Unknown Rx Oxycodone HCl [oxyCODONE] 10 mg PO Q6H PRN #10 tablet 01/23/19 Unknown Rx Apixaban [Eliquis] 2.5 mg PO Q12HR tablet 02/02/19 Unknown Rx Epoetin Prashant 10,000 Unit [Procrit] 10,000 unit SUB-Q KATERYNA PRN vial 02/02/19 Unknown Rx Lisinopril [Zestril TAB] 5 mg PO QDAY #30 tablet 02/02/19 Unknown Rx traMADol [Ultram 50 MG tab] 50 mg PO Q6HR PRN #10 tablet 02/08/19 Unknown Rx HYDROcodone/APAP 5-325 [[place] 1 each PO Q6HR PRN #12 tablet 02/21/19 Unknown Rx 5/325] Allergies Allergy/AdvReac Type Severity Reaction Status Date / Time aspirin Allergy Unknown Verified 02/20/19 22:06 pork derived (porcine) Allergy Rash Verified 02/20/19 22:06 venom-honey bee Allergy Anaphylaxis Verified 02/20/19 22:06 [bee venom (honey bee)] Pork/Porcine Containing AdvReac Severe Nausea,VOMI Verified 02/20/19 22:06 Products TING ED Review of Systems ROS: Stated complaint: RT SIDE LATERAL NECK PAIN Other details as noted in HPI Comment: All other systems reviewed and negative Constitutional: denies: chills, fever Eyes: denies: eye pain, eye discharge, vision change ENT: denies: ear pain, throat pain Respiratory: denies: cough, shortness of breath, wheezing Cardiovascular: denies: chest pain, palpitations Endocrine: no symptoms reported Gastrointestinal: denies: abdominal pain, nausea, diarrhea Genitourinary: denies: urgency, dysuria Musculoskeletal: denies: back pain, joint swelling, arthralgia Skin: denies: rash, lesions Neurological: denies: headache, weakness, paresthesias Psychiatric: denies: anxiety, depression Hematological/Lymphatic: denies: easy bleeding, easy bruising ED Past Medical Hx - Past Medical History Hx Hypertension: Yes Hx Heart Attack/AMI: No Hx Congestive Heart Failure: Yes Hx Diabetes: Yes Hx Deep Vein Thrombosis: Yes Hx Pulmonary Embolism: No Hx Liver Disease: Yes Hx Renal Disease: No Hx Arthritis: Yes (generalized) Hx Seizures: No Hx Kidney Stones: No Hx Psychiatric Treatment: Yes (PTSD) Hx Asthma: No Hx COPD: Yes Hx Tuberculosis: No Hx HIV: No Additional medical history: 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 abd surgery after war related ingury partial "stomach removal'. Left upper extremity amputation below elbow - Social History Smoking Status: Never Smoker Substance Use Type: None - Medications Home Medications: Home Medications Medication Instructions Recorded Confirmed Last Taken Type Apixaban [Eliquis] 2.5 mg PO Q12HR #60 tablet 12/29/18 02/15/19 01/01/19 Rx AtorvaSTATin [Lipitor] 40 mg PO QHS #30 tablet 12/29/18 02/15/19 01/01/19 Rx Famotidine [Pepcid] 10 mg PO BID #15 tablet 12/29/18 02/15/19 01/01/19 Rx amLODIPine [Norvasc] 10 mg PO DAILY #30 tablet 12/29/18 02/15/19 01/01/19 Rx hydrALAZINE [Apresoline TAB] 50 mg PO BID #60 tablet 12/29/18 02/15/19 01/01/19 Rx Carvedilol [Coreg] 25 mg PO BID #60 tablet 01/17/19 02/15/19 Unknown Rx Oxycodone HCl [oxyCODONE] 10 mg PO Q6H PRN #10 tablet 01/23/19 02/15/19 Unknown Rx Gabapentin [Neurontin] 300 mg PO Q12H PRN 01/30/19 02/15/19 Unknown History diphenhydrAMINE [Benadryl CAP] 50 mg PO Q3D PRN 01/30/19 02/15/19 Unknown History Apixaban [Eliquis] 2.5 mg PO Q12HR tablet 02/02/19 02/15/19 Unknown Rx Epoetin Prashant 10,000 Unit [Procrit] 10,000 unit SUB-Q KATERYNA PRN vial 02/02/19 02/15/19 Unknown Rx Lisinopril [Zestril TAB] 5 mg PO QDAY #30 tablet 02/02/19 02/15/19 Unknown Rx traMADol [Ultram 50 MG tab] 50 mg PO Q6HR PRN #10 tablet 02/08/19 02/15/19 Unknown Rx HYDROcodone/APAP 5-325 [[place] 1 each PO Q6HR PRN #12 tablet 02/21/19 Unknown Rx 5/325] ED Physical Exam - General Limitations: Physical Limitation General appearance: alert, in no apparent distress - Head Head exam: Present: atraumatic, normocephalic - Eye Eye exam: Present: normal appearance, PERRL, EOMI - ENT ENT exam: Present: mucous membranes moist - Neck Neck exam: Present: other (midline C-spine tenderness on palpation) - Respiratory Respiratory exam: Present: normal lung sounds bilaterally. Absent: respiratory distress - Cardiovascular Cardiovascular Exam: Present: regular rate, normal rhythm. Absent: systolic murmur, diastolic murmur, rubs, gallop - GI/Abdominal GI/Abdominal exam: Present: soft, normal bowel sounds. Absent: distended, tenderness - Rectal Rectal exam: Present: deferred - Extremities Exam Extremities exam: Present: normal inspection - Back Exam Back exam: Present: normal inspection - Neurological Exam Neurological exam: Present: alert, oriented X3, CN II-XII intact. Absent: motor sensory deficit - Psychiatric Psychiatric exam: Present: normal affect, normal mood - Skin Skin exam: Present: warm, dry, intact, normal color. Absent: rash ED Course Vital Signs 02/20/19 22:35 Temperature 98.6 F Pulse Rate 89 Respiratory 18 Rate Blood Pressure 130/94 [Left] O2 Sat by Pulse 97 Oximetry ED Medical Decision Making - Radiology Data Radiology results: report reviewed - Medical Decision Making results discussed with patient Critical care attestation.: If time is entered above; I have spent that time in minutes in the direct care of this critically ill patient, excluding procedure time. ED Disposition Clinical Impression: Fall, Closed head injury, Cervical pain (neck), Cervical spine arthritis Disposition: TO HOME OR SELFCARE Is pt being admited?: No Does the pt Need Aspirin: No Condition: Stable Instructions: Minor Head Injury (ED), Fall Prevention (ED), Cervical Spine Strain (ED) Additional Instructions: return if worse Referrals: JUANITA ROCKWELL MD [Primary Care Provider] - 3-5 Days [facility] [Provider Group] - 3-5 Days [facility] [Provider Group] - 3-5 Days Time of Disposition: 02:12
--- NOTE | 2019-02-21 01:19 | XRay Report ---
AP PELVIS INDICATION / CLINICAL INFORMATION: fall. COMPARISON: CT abdomen pelvis 02/03/2019 FINDINGS: Severe diffuse osteopenia is present. No displaced fracture or dislocation is seen within the pelvis or either hip. Moderate right and mild left hip degenerative arthrosis is present. Lumbar fusion hardware is seen at L5-S1. Extensive Monckeberg type vascular calcifications are seen throughout the aorta, iliac, common femora l and and mesenteric arteries characteristic for diabetes mellitus Signer Name: Enmanuel Alba MD Signed: 02/21/2019 1:15 AM Workstation Name: [id number]
--- NOTE | 2019-02-21 01:46 | Cat Scan Report ---
CT CERVICAL SPINE WITHOUT CONTRAST INDICATION: midline c spine ttp. TECHNIQUE: All CT scans at this location are performed using CT dose reduction for ALARA by means of automated e xposure control. Axial CT images were obtained through the cervical spine. Sagittal and coronal reformatted images we re produced. COMPARISON: CT cervical spine 10/14/2018 FINDINGS: FINDINGS: There remains previous multilevel fusion surgery with hardware extending from the pedicle s of C2 through the upper thoracic spine. Additional anterior hardware is seen at the C3-C4 level wit h posterior laminectomies at this level. There is complete fusion at the C5-C6 level with a bone juan t in place. There is no evidence of fracture. Moderate osteolysis is seen surrounding both pedicle sc rews at T3 level, unchanged. The prevertebral soft tissues appear intact. There remains severe inflammatory arthropathy changes of the C1-C2 articulation with erosions of the tip of the odontoid process. The surrounding soft tissue s reveal extensive vascular calcifications in the soft tissues. A left subclavian venous stent is pre sent. Right internal jugular central line is noted. IMPRESSION: 1. Extensive remote postsurgical changes with hardware extending from C2 through the upper thoracic s pine. 2. Moderate osteolysis surrounding both T3 pedicle screws is unchanged but had not been reported on p revious study from September. 3. No acute cervical fracture. Signer Name: Enmanuel Alba MD Signed: 02/21/2019 1:41 AM Workstation Name: [id number]
--- NOTE | 2019-02-21 01:49 | Cat Scan Report ---
CT HEAD WITHOUT CONTRAST INDICATION / CLINICAL INFORMATION: head injury. TECHNIQUE: All CT scans at this location are performed using CT dose reduction for ALARA by means of automated e xposure control. COMPARISON: Head CT 10/14/2018 FINDINGS: HEMORRHAGE: None. EXTRA-AXIAL SPACES: Normal in size and morphology for the patient's age. VENTRICULAR SYSTEM: Normal in size and morphology for the patient's age. CEREBRAL PARENCHYMA: Moderate cerebral atrophy, unchanged. No significant abnormality. No acute ko torial infarct. MIDLINE SHIFT OR HERNIATION: None. CEREBELLUM / BRAINSTEM: No significant abnormality. ORBITS: Normal as visualized. SOFT TISSUES of HEAD: Extensive Monckeberg type vascular calcifications are seen throughout the soft tissues characteristic for diabetes mellitus. No significant abnormality. CALVARIUM: No significant abnormality. PARANASAL SINUSES / MASTOID AIR CELLS: Normal as visualized. ADDITIONAL FINDINGS: Extensive vascular calcifications both cavernous and vertebral arteries again no dianna. IMPRESSION: 1. No acute intracranial abnormality. 2. Moderate cerebral atrophy, unchanged. Signer Name: Enmanuel Alba MD Signed: 02/21/2019 1:45 AM Workstation Name: [email or web address]
[2019-02-21] MEDS ORDERED: MORPHINE IM ONE (02:06)
[2019-02-21] MEDS ORDERED: MORPHINE ONE (02:10)
[2019-02-21 07:00] VITALS: BP 127/94
== END 2019-02-21 08:23 | disposition home or self-care (01) ==
LOC: ED 21:57
DX: S16.1XXA Strain of muscle, fascia and tendon at neck level, initial encounter (principal); S09.90XA Unspecified injury of head, initial encounter; M19.90 Unspecified osteoarthritis, unspecified site; J44.9 Chronic obstructive pulmonary disease, unspecified; I13.2 Hypertensive heart and chronic kidney disease with heart failure and with stage 5 chronic kidney disease, or end stage renal disease; E11.22 Type 2 diabetes mellitus with diabetic chronic kidney disease; N18.6 End stage renal disease; I50.9 Heart failure, unspecified; Z79.899 Other long term (current) drug therapy; Z86.718 Personal history of other venous thrombosis and embolism; Z99.2 Dependence on renal dialysis; Z79.4 Long term (current) use of insulin; Z88.6 Allergy status to analgesic agent; Z91.030 Bee allergy status; Z91.018 Allergy to other foods; W06.XXXA Fall from bed, initial encounter; Y93.89 Activity, other specified; Y92.89 Other specified places as the place of occurrence of the external cause; Y99.8 Other external cause status
CPT/HCPCS: 70450; 72125; 72170; 96372; 99284; J2270

== ENCOUNTER 2019-02-27 20:56 | Emergency (ER) | payer MEDICAID ==
[2019-02-27] MEDS ORDERED: MORPHINE IM ONE (22:11)
[2019-02-27] MEDS ORDERED: ZOFRAN IM ONE (22:11)
--- NOTE | 2019-02-27 22:14 | Emergency Department Report ---
ED Fall HPI - General Chief Complaint: Fall Stated Complaint: BACK PAIN Time Seen by Provider: 02/27/19 22:06 Source: EMS Mode of arrival: Stretcher - History of Present Illness Initial Comments: Patient is 72 years old male with history of end-stage renal disease on hemodialysis, congestive heart failure and hypertension. Patient brought to the emergency room via EMS for evaluation after patient fell from a wheelchair landing on his back. Patient is complaining of headache, neck pain, lower back pain. Patient denied any loss of consciousness. MD Complaint: fall -: This evening Fall From: wheelchair Fall Witnessed: yes, by family Place Fall Occurred: home Loss of Consciousness: none Prolonged Down Time?: no Symptoms Prior to Fall: none Location: head, neck, back Severity: moderate Context: tripped/slipped - Related Data Home Medications Medication Instructions Recorded Confirmed Last Taken Gabapentin [Neurontin] 300 mg PO Q12H PRN 01/30/19 02/15/19 Unknown diphenhydrAMINE [Benadryl CAP] 50 mg PO Q3D PRN 01/30/19 02/15/19 Unknown Previous Rx's Medication Instructions Recorded Last Taken Type Apixaban [Eliquis] 2.5 mg PO Q12HR #60 tablet 12/29/18 01/01/19 Rx AtorvaSTATin [Lipitor] 40 mg PO QHS #30 tablet 12/29/18 01/01/19 Rx Famotidine [Pepcid] 10 mg PO BID #15 tablet 12/29/18 01/01/19 Rx amLODIPine [Norvasc] 10 mg PO DAILY #30 tablet 12/29/18 01/01/19 Rx hydrALAZINE [Apresoline TAB] 50 mg PO BID #60 tablet 12/29/18 01/01/19 Rx Carvedilol [Coreg] 25 mg PO BID #60 tablet 01/17/19 Unknown Rx Oxycodone HCl [oxyCODONE] 10 mg PO Q6H PRN #10 tablet 01/23/19 Unknown Rx Apixaban [Eliquis] 2.5 mg PO Q12HR tablet 02/02/19 Unknown Rx Epoetin Prashant 10,000 Unit [Procrit] 10,000 unit SUB-Q KATERYNA PRN vial 02/02/19 Unknown Rx Lisinopril [Zestril TAB] 5 mg PO QDAY #30 tablet 02/02/19 Unknown Rx traMADol [Ultram 50 MG tab] 50 mg PO Q6HR PRN #10 tablet 02/08/19 Unknown Rx HYDROcodone/APAP 5-325 [[place] 1 each PO Q6HR PRN #12 tablet 02/21/19 Unknown Rx 5/325] Allergies Allergy/AdvReac Type Severity Reaction Status Date / Time aspirin Allergy Unknown Verified 02/20/19 22:06 pork derived (porcine) Allergy Rash Verified 02/20/19 22:06 venom-honey bee Allergy Anaphylaxis Verified 02/20/19 22:06 [bee venom (honey bee)] Pork/Porcine Containing AdvReac Severe Nausea,VOMI Verified 02/20/19 22:06 Products TING ED Review of Systems ROS: Stated complaint: BACK PAIN Other details as noted in HPI Comment: All other systems reviewed and negative Constitutional: denies: chills, fever Respiratory: denies: cough, shortness of breath, SOB with exertion, SOB at rest Cardiovascular: denies: chest pain, palpitations Gastrointestinal: denies: abdominal pain, nausea, vomiting Musculoskeletal: back pain Neurological: denies: headache, weakness ED Past Medical Hx - Past Medical History Hx Hypertension: Yes Hx Heart Attack/AMI: No Hx Congestive Heart Failure: Yes Hx Diabetes: Yes Hx Deep Vein Thrombosis: Yes Hx Pulmonary Embolism: No Hx Liver Disease: Yes Hx Renal Disease: No Hx Arthritis: Yes (generalized) Hx Seizures: No Hx Kidney Stones: No Hx Psychiatric Treatment: Yes (PTSD) Hx Asthma: No Hx COPD: Yes Hx Tuberculosis: No Hx HIV: No Additional medical history: 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 abd surgery after war related ingury partial "stomach removal'. Left upper extremity amputation below elbow - Social History Smoking Status: Former Smoker Substance Use Type: None - Medications Home Medications: Home Medications Medication Instructions Recorded Confirmed Last Taken Type Apixaban [Eliquis] 2.5 mg PO Q12HR #60 tablet 12/29/18 02/15/19 01/01/19 Rx AtorvaSTATin [Lipitor] 40 mg PO QHS #30 tablet 12/29/18 02/15/19 01/01/19 Rx Famotidine [Pepcid] 10 mg PO BID #15 tablet 12/29/18 02/15/19 01/01/19 Rx amLODIPine [Norvasc] 10 mg PO DAILY #30 tablet 12/29/18 02/15/19 01/01/19 Rx hydrALAZINE [Apresoline TAB] 50 mg PO BID #60 tablet 12/29/18 02/15/19 01/01/19 Rx Carvedilol [Coreg] 25 mg PO BID #60 tablet 01/17/19 02/15/19 Unknown Rx Oxycodone HCl [oxyCODONE] 10 mg PO Q6H PRN #10 tablet 01/23/19 02/15/19 Unknown Rx Gabapentin [Neurontin] 300 mg PO Q12H PRN 01/30/19 02/15/19 Unknown History diphenhydrAMINE [Benadryl CAP] 50 mg PO Q3D PRN 01/30/19 02/15/19 Unknown History Apixaban [Eliquis] 2.5 mg PO Q12HR tablet 02/02/19 02/15/19 Unknown Rx Epoetin Prashant 10,000 Unit [Procrit] 10,000 unit SUB-Q KATERYNA PRN vial 02/02/19 02/15/19 Unknown Rx Lisinopril [Zestril TAB] 5 mg PO QDAY #30 tablet 02/02/19 02/15/19 Unknown Rx traMADol [Ultram 50 MG tab] 50 mg PO Q6HR PRN #10 tablet 02/08/19 02/15/19 Unknown Rx HYDROcodone/APAP 5-325 [[place] 1 each PO Q6HR PRN #12 tablet 02/21/19 Unknown Rx 5/325] ED Physical Exam - General Limitations: No Limitations General appearance: alert, in no apparent distress - Head Head exam: Present: atraumatic, normocephalic, normal inspection - Eye Eye exam: Present: normal appearance, PERRL - ENT ENT exam: Present: normal exam, normal orophraynx, mucous membranes moist - Neck Neck exam: Present: normal inspection, full ROM. Absent: tenderness, meningismus - Respiratory Respiratory exam: Present: normal lung sounds bilaterally - Cardiovascular Cardiovascular Exam: Present: regular rate, normal rhythm, normal heart sounds - GI/Abdominal GI/Abdominal exam: Present: soft, normal bowel sounds. Absent: distended, tenderness, guarding, rebound, rigid - Extremities Exam Extremities exam: Present: normal inspection, full ROM, normal capillary refill - Back Exam Back exam: Present: normal inspection, full ROM. Absent: CVA tenderness (R), CVA tenderness (L) - Neurological Exam Neurological exam: Present: alert, oriented X3, CN II-XII intact - Skin Skin exam: Present: warm, intact, normal color ED Course Vital Signs 02/27/19 21:44 Temperature 97.5 F L Pulse Rate 90 Respiratory 18 Rate Blood Pressure 154/124 [Left] O2 Sat by Pulse 98 Oximetry ED Medical Decision Making - Lab Data Result diagrams: 02/27/19 22:31 02/27/19 22:31 - Radiology Data Radiology results: report reviewed - Medical Decision Making Patient is 72 years old male with history of end-stage renal disease on h emodialysis, congestive heart failure and hypertension. Patient brought to the emergency room via EMS for evaluation after patient fell from a wheelchair landing on his back. Patient is complaining of headache, neck pain, lower back pain. Patient denied any loss of consciousness. Patient received morphine and Zofran. She stated that he is feeling much better. CT brain, CT cervical spine, CT lumbar spine is negative for acute finding. Patient advised to follow-up with his primary care physician and elected to 3 days and to return to the ER if symptoms are not improved Critical care attestation.: If time is entered above; I have spent that time in minutes in the direct care of this critically ill patient, excluding procedure time. ED Disposition Clinical Impression: Fall, ESRD needing dialysis, Back pain Disposition: TO HOME OR SELFCARE Is pt being admited?: No Condition: Stable Referrals: PRIMARY CARE, [Primary Care Provider] - 3-5 Days
[2019-02-27 22:57] LABS: Basophils % (Auto) 0.7 % (0.0-1.8); Eosinophils # (Auto) 0.1 K/mm3 (0.0-0.4); Eosinophils % (Auto) 2.1 % (0.0-4.3); Hematocrit 37.6 % (35.5-45.6); Hemoglobin 12.3 gm/dl (11.8-15.2); Lymphocytes # (Auto) 0.9 K/mm3 (1.2-5.4); Lymphocytes % (Auto) 27.4 % (13.4-35.0); Mean Corpuscular HGB Conc 33 % (32-34); Mean Corpuscular Volume 99 fl (84-94); Monocytes # (Auto) 0.4 K/mm3 (0.0-0.8); Monocytes % (Auto) 12.1 % (0.0-7.3); Red Blood Count 3.81 M/mm3 (3.65-5.03); Red Cell Distribution Width 16.3 % (13.2-15.2)
[2019-02-27 23:12] LABS: Calcium 8.8 mg/dL (8.4-10.2)
[2019-02-27 23:45] LABS: Platelet Count 67 K/mm3 (140-440)
--- NOTE | 2019-02-28 00:39 | Cat Scan Report ---
CT HEAD WITHOUT CONTRAST INDICATION: fall, back pain TECHNIQUE: All CT scans at this location are performed using CT dose reduction for ALARA by means of automated exposure control. COMPARISON: 02/21/2019 FINDINGS: BRAIN: No hemorrhage or mass effect are seen. No evidence of acute infarction is noted. Atrophic palacio ges are noted. Minimal white matter microvascular changes are seen. ORBITS: Normal as visualized. SOFT TISSUES OF HEAD: Normal. CALVARIUM: Normal. VISUALIZED PARANASAL SINUSES AND MASTOID AIR CELLS: Clear. ADDITIONAL FINDINGS: None. CT CERVICAL SPINE WITHOUT CONTRAST INDICATION: fall, back pain TECHNIQUE: All CT scans at this location are performed using CT dose reduction for ALARA by means of automated exposure control. Axial CT images were obtained through the cervical spine. Sagittal and co jennifer reformatted images were produced. COMPARISON: 02/21/2019 Cervical spine findings: Posterior fusion is again seen bilaterally from C2 to T1 with anterior fusio n from C3 to T1 with resultant artifact. Marked osteopenia lordosis is seen. Arthritic changes are pr ominent. No obvious disc herniation is seen. No obvious fracture is identified. No significant sublux ation is seen. Additional findings: Prominent left pleural effusion is again partially visualized. CT LUMBAR SPINE WITHOUT CONTRAST INDICATION: fall, back pain TECHNIQUE: All CT scans at this location are performed using CT dose reduction for ALARA by means of automated exposure control. Axial CT images were obtained through the lumbar spine. Sagittal and dariana nal reformatted images were produced. COMPARISON: 10/14/2018 Lumbar spine findings: Anterior posterior fusion is again seen at L5-S1. Diffuse mild degenerative ch anges are seen. Arthritic changes are noted. Osteoporotic changes are seen. Disc bulging at L3-4 and L4-5 is again noted. No fractures are obvious. Additional findings: Polycystic kidney disease is again seen. Extensive atherosclerotic changes are a gain noted. Old surgical changes in the right ilium is again noted. IMPRESSION: No acute findings. Signer Name: Dinesh Cooney MD Signed: 02/28/2019 12:35 AM Workstation Name: [id number]
[2019-02-28 01:53] VITALS: BP 154/121
== END 2019-02-28 04:07 | disposition home or self-care (01) ==
LOC: ED 20:56
DX: I13.2 Hypertensive heart and chronic kidney disease with heart failure and with stage 5 chronic kidney disease, or end stage renal disease (principal); E11.22 Type 2 diabetes mellitus with diabetic chronic kidney disease; N18.6 End stage renal disease; I50.9 Heart failure, unspecified; Z99.2 Dependence on renal dialysis; J44.9 Chronic obstructive pulmonary disease, unspecified; F43.10 Post-traumatic stress disorder, unspecified; M54.2 Cervicalgia; M54.5 Low back pain; Z88.6 Allergy status to analgesic agent; Z91.018 Allergy to other foods; Z91.030 Bee allergy status; Z79.899 Other long term (current) drug therapy; Z86.718 Personal history of other venous thrombosis and embolism; Z98.890 Other specified postprocedural states; Z87.891 Personal history of nicotine dependence
CPT/HCPCS: 36415; 70450; 72125; 72131; 80048; 85025; 96372; 99284; J2270; J2405

== ENCOUNTER 2019-03-07 20:17 | Inpatient (IN) | payer MEDICAID ==
[2019-03-07] MEDS ORDERED: MORPHINE 4 MG/1 ML INJ IV ONE ×2 (21:11→22:51)
--- NOTE | 2019-03-07 21:14 | Emergency Department Report ---
ED Chest Pain HPI - General Chief Complaint: Chest Pain Stated Complaint: SOB Time Seen by Provider: 03/07/19 20:58 Source: patient, EMS Mode of arrival: Stretcher Limitations: No Limitations - History of Present Illness Initial Comments: 72-year-old -Portuguese male presents to the emergency department by EMS from home with complaint of chest pain and shortness of breath. He has a past history of chronic systolic congestive heart failure, recurrent pleural effusions requiring thoracentesis, chronic atrial fibrillation on requests, end- stage renal disease on hemodialysis on Monday//Monday, dilated nonischemic cardiomyopathy. The patient also has a history of single-vessel nonobstructive LAD disease from a catheterization done in January 2017. The patient was at dialysis today when he began having some chest pain. He was give n a sublingual nitroglycerin which helped improve or resolve his pain at that time and he was able to complete dialysis. He then went home and had a nap and woke up sweating with shortness of breath and return of his chest pain. He put his oxygen on and called 911. Patient was here for chest pain about one month ago and had a cardiology consultation at that time. His primary care physician is Dr. Abdulkadir Royal. Licensed Real Estate Broker is Dr. Emerson. - Related Data Home Medications Medication Instructions Recorded Confirmed Last Taken diphenhydrAMINE [Benadryl CAP] 50 mg PO Q3D PRN 01/30/19 02/15/19 Unknown Previous Rx's Medication Instructions Recorded Last Taken Type AtorvaSTATin [Lipitor] 40 mg PO QHS #30 tablet 12/29/18 01/01/19 Rx Famotidine [Pepcid] 10 mg PO BID #15 tablet 12/29/18 01/01/19 Rx amLODIPine [Norvasc] 10 mg PO DAILY #30 tablet 12/29/18 01/01/19 Rx hydrALAZINE [Apresoline TAB] 50 mg PO BID #60 tablet 12/29/18 01/01/19 Rx Carvedilol [Coreg] 25 mg PO BID #60 tablet 01/17/19 Unknown Rx Oxycodone HCl [oxyCODONE] 10 mg PO Q6H PRN #10 tablet 01/23/19 Unknown Rx Apixaban [Eliquis] 2.5 mg PO Q12HR tablet 02/02/19 Unknown Rx Epoetin Prashant 10,000 Unit [Procrit] 10,000 unit SUB-Q KATERYNA PRN vial 02/02/19 Unknown Rx Lisinopril [Zestril TAB] 5 mg PO QDAY #30 tablet 02/02/19 Unknown Rx HYDROcodone/APAP 5-325 [[place] 1 each PO Q6HR PRN #12 tablet 02/21/19 Unknown Rx 5/325] Ondansetron [Zofran Odt] 4 mg PO Q8HR PRN #14 tab.rapdis 02/28/19 Unknown Rx traMADol [Ultram 50 MG tab] 50 mg PO Q4HR PRN #14 tablet 02/28/19 Unknown Rx Allergies Allergy/AdvReac Type Severity Reaction Status Date / Time aspirin Allergy Unknown Verified 02/20/19 22:06 pork derived (porcine) Allergy Rash Verified 02/20/19 22:06 venom-honey bee Allergy Anaphylaxis Verified 02/20/19 22:06 [bee venom (honey bee)] Pork/Porcine Containing AdvReac Severe Nausea,VOMI Verified 02/20/19 22:06 Products TING Heart Score - HEART Score History: Slightly suspicious EKG: Non-specific Age: > 65 Risk factors: > 3 risk factors or hx of atherosclerotic disease Troponin: > 3x normal limit HEART Score: 7 - Critical Actions Critical Actions: >7 pts:50-65% risk of adverse cardiac event. Early invasive measures ED Review of Systems ROS: Stated complaint: SOB Other details as noted in HPI Comment: All other systems reviewed and negative Constitutional: diaphoresis. denies: chills, fever Eyes: denies: eye pain, vision change ENT: denies: ear pain, throat pain Respiratory: shortness of breath. denies: cough Cardiovascular: chest pain. denies: palpitations Gastrointestinal: denies: abdominal pain, vomiting Genitourinary: denies: dysuria, discharge Musculoskeletal: denies: back pain, arthralgia Skin: denies: rash, lesions Neurological: denies: headache, weakness ED Past Medical Hx - Past Medical History Previous Medical History?: Yes Hx Hypertension: Yes Hx Heart Attack/AMI: No Hx Congestive Heart Failure: Yes Hx Diabetes: Yes Hx Deep Vein Thrombosis: Yes Hx Pulmonary Embolism: No Hx Liver Disease: Yes Hx Renal Disease: No Hx Arthritis: Yes (generalized) Hx Seizures: No Hx Kidney Stones: No Hx Psychiatric Treatment: Yes (PTSD) Hx Asthma: No Hx COPD: Yes Hx Tuberculosis: No Hx HIV: No Additional medical history: 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 abd surgery after war related ingury partial "stomach removal'. Left upper extremity amputation below elbow - Social History Smoking Status: Never Smoker Substance Use Type: None - Medications Home Medications: Home Medications Medication Instructions Recorded Confirmed Last Taken Type AtorvaSTATin [Lipitor] 40 mg PO QHS #30 tablet 12/29/18 02/15/19 01/01/19 Rx Famotidine [Pepcid] 10 mg PO BID #15 tablet 12/29/18 02/15/19 01/01/19 Rx amLODIPine [Norvasc] 10 mg PO DAILY #30 tablet 12/29/18 02/15/19 01/01/19 Rx hydrALAZINE [Apresoline TAB] 50 mg PO BID #60 tablet 12/29/18 02/15/19 01/01/19 Rx Carvedilol [Coreg] 25 mg PO BID #60 tablet 01/17/19 02/15/19 Unknown Rx Oxycodone HCl [oxyCODONE] 10 mg PO Q6H PRN #10 tablet 01/23/19 02/15/19 Unknown Rx diphenhydrAMINE [Benadryl CAP] 50 mg PO Q3D PRN 01/30/19 02/15/19 Unknown History Apixaban [Eliquis] 2.5 mg PO Q12HR tablet 02/02/19 02/15/19 Unknown Rx Epoetin Prashant 10,000 Unit [Procrit] 10,000 unit SUB-Q KATERYNA PRN vial 02/02/19 02/15/19 Unknown Rx Lisinopril [Zestril TAB] 5 mg PO QDAY #30 tablet 02/02/19 02/15/19 Unknown Rx HYDROcodone/APAP 5-325 [[place] 1 each PO Q6HR PRN #12 tablet 02/21/19 Unknown Rx 5/325] Ondansetron [Zofran Odt] 4 mg PO Q8HR PRN #14 tab.rapdis 02/28/19 Unknown Rx traMADol [Ultram 50 MG tab] 50 mg PO Q4HR PRN #14 tablet 02/28/19 Unknown Rx ED Physical Exam - General Limitations: No Limitations - Other Other exam information: GENERAL: The patient is well-developed well-nourished. HENT: Normocephalic. Atraumatic. Patient has moist mucous membranes. EYES: Extraocular motions are intact. Pupils equal reactive to light bilaterally. NECK: Supple. Trachea is midline. CHEST/LUNGS: Coarse breath sounds to the left lung. Mild tachypnea but no accessory muscle use. There is no evidence of acute injury. There is no respiratory distress noted. HEART/CARDIOVASCULAR: Irregular. There is no tachycardia. There is no murmur. ABDOMEN: Abdomen is soft, nontender. Patient has normal bowel sounds. There is no abdominal distention. SKIN: Skin is warm and dry. NEURO: The patient is awake, alert, and oriented. The patient is cooperative. The patient has no focal neurologic deficits. Normal speech. MUSCULOSKELETAL: There is no tenderness or deformity. Left upper extremity amputation. ED Course Vital Signs 03/07/19 03/07/19 03/07/19 20:29 21:37 22:17 Temperature 98.6 F Pulse Rate 97 H Pulse Rate [ 99 H Anterior] Respiratory 16 22 Rate Respiratory 20 Rate [Anterior] Blood Pressure 186/138 O2 Sat by Pulse 100 100 Oximetry ROGER score - Roger Score Age > 65: (1) Yes Aspirin use within the Past 7 Days: (0) No 3 or more CAD Risk Factors: (1) Yes 2 or more Angina events in past 24 hrs: (1) Yes Known CAD with more than 50% Stenosis: (0) No Elevated Cardiac Markers: (1) Yes ST Deviation Greater than 0.5mm: (0) No ROGER Score: 4 ED Medical Decision Making - Lab Data Result diagrams: 03/07/19 21:30 03/07/19 21:30 - EKG Data -: EKG Interpreted by Me - EKG Data Interpretation: unchanged when compared t (02/15/19), other (atrial fibrillation with rate of 86 bpm, left axis deviation, LVH, left anterior fascicular block) - Radiology Data Radiology results: image reviewed interpreted by me: Chest x-ray shows a large left pleural effusion. - Medical Decision Making This patient presents to the emergency department with complaint of chest pain and shortness of breath since getting dialysis earlier today. Chest x-ray shows a large left pleural effusion which is consistent with previous history and the patient has required a thoracentesis in the past and may require 1 for this as well. EKG does not show any signs of ST elevation LA. Patient does have an elevated troponin but he is also end-stage renal disease and the troponin level is consistent with previous visits. He has some hypertension but otherwise his vital signs stable throughout his ED course thus far. The patient will be admitted to the hospital for further evaluation and treatment and was accepted for admission by the hospitalist, Dr. Adhikari. - Differential Diagnosis pleural effusion, CHF, LA, Pneumonia Critical Care Time: No Critical care attestation.: If time is entered above; I have spent that time in minutes in the direct care of this critically ill patient, excluding procedure time. ED Disposition Clinical Impression: Pleural effusion, left, ESRD on dialysis, Elevated troponin, Uncontrolled hypertension Atrial fibrillation Qualifiers: Atrial fibrillation type: chronic Qualified Code(s): I48.2 - Chronic atrial fibrillation Disposition: DC-09 OP ADMIT IP TO THIS HOSP Is pt being admited?: Yes Condition: Serious Instructions: Hypertension (ED) Time of Disposition: 22:41
--- NOTE | 2019-03-07 21:33 | XRay Report ---
CHEST 1 VIEW INDICATION: Chest Pain. COMPARISON: 02/15/2019. FINDINGS: Support devices: Unchanged. Heart: Stable. Lungs/Pleura: There is a large left pleural effusion which is increased in size. There is presumed co mpressive atelectasis in the left lower lobe. Mild interstitial edema is noted. No pneumothorax. IMPRESSION: 1. Large left pleural effusion. 2. Mild interstitial pulmonary edema. Signer Name: Ilir Ohara MD Signed: 03/07/2019 9:28 PM Workstation Name: [id number]
[2019-03-07 21:35] LABS: Basophils % (Auto) 1.3 % (0.0-1.8); Eosinophils % (Auto) 1.4 % (0.0-4.3); Hematocrit 35.1 % (35.5-45.6); Hemoglobin 11.5 gm/dl (11.8-15.2); Lymphocytes # (Auto) 0.7 K/mm3 (1.2-5.4); Lymphocytes % (Auto) 22.1 % (13.4-35.0); Mean Corpuscular HGB Conc 33 % (32-34); Mean Corpuscular Volume 99 fl (84-94); Monocytes # (Auto) 0.3 K/mm3 (0.0-0.8); Monocytes % (Auto) 9.7 % (0.0-7.3); Red Blood Count 3.54 M/mm3 (3.65-5.03); Red Cell Distribution Width 15.6 % (13.2-15.2)
[2019-03-07 21:38] LABS: Platelet Count 67 K/mm3 (140-440)
[2019-03-07 21:58] LABS: Calcium 8.6 mg/dL (8.4-10.2)
[2019-03-07] MEDS ORDERED: IPRATROPIUM/ALBUTEROL SULFATE 3 ML AMPUL.NEB IH ONE (21:58)
[2019-03-07 22:00] LABS: Albumin 3.3 g/dL (3.9-5); Bilirubin,Direct 0.2 mg/dL (0-0.2)
[2019-03-07] MEDS ORDERED: hydrALAZINE 20 MG/1 ML INJ IV ONE (22:42)
[2019-03-07 23:00] LABS: Chol/HDL Ratio 1.69 %
[2019-03-07] MEDS ORDERED: ACETAMINOPHEN 325 MG TAB PO PRN (23:22)
--- NOTE | 2019-03-07 23:33 | History and Physical Report ---
History of Present Illness Date of examination: 03/07/19 Date of admission: 03/07/19 Chief complaint: SOB History of present illness: Pt is a 72-year-old male with PMHx of CHF, recurrent pleural effusions, A-Fib, ESRD on HD, dilated nonischemic cardiomyopathy who was brought to the ER by EMS for complaint of chest pain and SOB. Pt states that he was in HD beltran he began having chest pain, the pain was located in the left chest area causing SOB, pt states that he was given a sublingual nitroglycerin with improvement of the pain. Pt states that he completed the dialysis treatment as planned and went home, he woke up in a nap with sweating, SOB and chest pain. Pt denies palpitation, he denies nausea or vomiting denies. Pt states that EMS was called and he was taking to the ER for evaluation. Patient admit to similar chest pain, he states that he was hospitalized a month ago and was seen by cardiology at that time. Pt had a chest x-ray in the ER that show a large pleural effusion and mild intertitial pulmonary edema. Pt is admitted for further management of the pleural effusion. Past History Past Medical History: atrial fib, CAD, hypertension Past Surgical History: Other (Left arm amputation, HD cath insertion) Social history: no significant social history Family history: no significant family history Medications and Allergies Allergies Allergy/AdvReac Type Severity Reaction Status Date / Time aspirin Allergy Unknown Verified 02/20/19 22:06 pork derived (porcine) Allergy Rash Verified 02/20/19 22:06 venom-honey bee Allergy Anaphylaxis Verified 02/20/19 22:06 [bee venom (honey bee)] Pork/Porcine Containing AdvReac Severe Nausea,VOMI Verified 02/20/19 22:06 Products TING Home Medications Medication Instructions Recorded Confirmed Last Taken Type AtorvaSTATin [Lipitor] 40 mg PO QHS #30 tablet 12/29/18 03/07/19 01/01/19 Rx Famotidine [Pepcid] 10 mg PO BID #15 tablet 12/29/18 03/07/19 01/01/19 Rx amLODIPine [Norvasc] 10 mg PO DAILY #30 tablet 12/29/18 03/07/19 01/01/19 Rx hydrALAZINE [Apresoline TAB] 50 mg PO BID #60 tablet 12/29/18 03/07/1901/01/19 Rx Carvedilol [Coreg] 25 mg PO BID #60 tablet 01/17/19 03/07/19 Unknown Rx Oxycodone HCl [oxyCODONE] 10 mg PO Q6H PRN #10 tablet 01/23/19 03/07/19 Unknown Rx diphenhydrAMINE [Benadryl CAP] 50 mg PO Q3D PRN 01/30/19 03/07/19 Unknown History Apixaban [Eliquis] 2.5 mg PO Q12HR tablet 02/02/19 03/07/19 Unknown Rx Epoetin Prashant 10,000 Unit [Procrit] 10,000 unit SUB-Q KATERYNA PRN vial 02/02/19 03/07/19 Unknown Rx Lisinopril [Zestril TAB] 5 mg PO QDAY #30 tablet 02/02/19 03/07/19 Unknown Rx HYDROcodone/APAP 5-325 [[place] 1 each PO Q6HR PRN #12 tablet 02/21/19 03/07/19 Unknown Rx 5/325] Ondansetron [Zofran Odt] 4 mg PO Q8HR PRN #14 tab.rapdis 02/28/19 03/07/19 Unknown Rx traMADol [Ultram 50 MG tab] 50 mg PO Q4HR PRN #14 tablet 02/28/19 03/07/19 Unknown Rx Active Meds: Active Medications Acetaminophen (Tylenol) 650 mg PO Q4H PRN PRN Reason: Pain MILD(1-3)/Fever >100.5/DOUGLAS Ondansetron HCl (Zofran) 4 mg IV Q8H PRN PRN Reason: Nausea And Vomiting Sodium Chloride (Sodium Chloride Flush Syringe 10 Ml) 10 ml IV BID BEAN Sodium Chloride (Sodium Chloride Flush Syringe 10 Ml) 10 ml IV PRN PRN PRN Reason: LINE FLUSH Review of Systems Cardiovascular: chest pain, shortness of breath Respiratory: shortness of breath Exam - Constitutional Vitals: Temp Pulse Resp BP Pulse Ox 98.5 F 97 H 14 158/104 100 03/07/19 23:24 03/07/19 23:24 03/07/19 23:24 03/07/19 23:24 03/07/19 23:24 General appearance: Present: mild distress - EENT Eyes: Present: EOM intact ENT: hearing intact - Neck Neck: Present: supple, normal ROM - Respiratory Respiratory effort: normal Respiratory: bilateral: CTA - Cardiovascular Rhythm: regular - Extremities Extremities: no ischemia Peripheral Pulses: within normal limits - Abdominal General gastrointestinal: Present: deferred - Rectal Rectal Exam: deferred - Integumentary Integumentary: Present: clear - Musculoskeletal Musculoskeletal: strength equal bilaterally - Psychiatric Psychiatric: cooperative - Neurologic Neurologic: moves all extremities Results - Labs CBC & Chem 7: 03/07/19 21:30 03/07/19 21:30 Labs: Laboratory Last Values WBC 3.0 K/mm3 (4.5-11.0) L 03/07/19 21:30 RBC 3.54 M/mm3 (3.65-5.03) L 03/07/19 21:30 Hgb 11.5 gm/dl (11.8-15.2) L 03/07/19 21:30 Hct 35.1 % (35.5-45.6) L 03/07/19 21:30 MCV 99 fl (84-94) H 03/07/19 21:30 MCH 33 pg (28-32) H 03/07/19 21:30 MCHC 33 % (32-34) 03/07/19 21:30 RDW 15.6 % (13.2-15.2) H 03/07/19 21:30 Plt Count 67 K/mm3 (140-440) L 03/07/19 21:30 Lymph % (Auto) 22.1 % (13.4-35.0) 03/07/19 21:30 [place] % (Auto) 9.7 % (0.0-7.3) H 03/07/19 21:30 Eos % (Auto) 1.4 % (0.0-4.3) 03/07/19 21:30 Baso % (Auto) 1.3 % (0.0-1.8) 03/07/19 21:30 Lymph # 0.7 K/mm3 (1.2-5.4) L 03/07/19 21:30 [place] # 0.3 K/mm3 (0.0-0.8) 03/07/19 21:30 Eos # 0.0 K/mm3 (0.0-0.4) 03/07/19 21:30 Baso # 0.0 K/mm3 (0.0-0.1) 03/07/19 21:30 Seg Neutrophils % 65.5 % (40.0-70.0) 03/07/19 21:30 Seg Neutrophils # 2.0 K/mm3 (1.8-7.7) 03/07/19 21:30 Sodium 136 mmol/L (137-145) L 03/07/19 21:30 Potassium 3.6 mmol/L (3.6-5.0) 03/07/19 21:30 Chloride 98.1 mmol/L (98-107) 03/07/19 21:30 Carbon Dioxide 27 mmol/L (22-30) 03/07/19 21:30 15 mmol/L 03/07/19 21:30 BUN 12 mg/dL (9-20) 03/07/19 21:30 3.6 mg/dL (0.8-1.5) H 03/07/19 21:30 Estimated GFR 20 ml/min 03/07/19 21:30 3 % 03/07/19 21:30 Glucose 91 mg/dL (75-100) 03/07/19 21:30 Calcium 8.6 mg/dL (8.4-10.2) 03/07/19 21:30 0.70 mg/dL (0.1-1.2) 03/07/19 21:30 0.2 mg/dL (0-0.2) 03/07/19 21:30 0.5 mg/dL 03/07/19 21:30 AST 28 units/L (5-40) 03/07/19 21:30 ALT 25 units/L (7-56) 03/07/19 21:30 135 units/L (35-129) H 03/07/19 21:30 0.270 ng/mL (0.00-0.029) H* 03/07/19 21:30 6.7 g/dL (6.3-8.2) 03/07/19 21:30 3.3 g/dL (3.9-5) L 03/07/19 21:30 1.0 % 03/07/19 21:30 Triglycerides 51 mg/dL (2-149) 03/07/19 21:30 Cholesterol 73 mg/dL (50-199) 03/07/19 21:30 28 mg/dL (50-130) L 03/07/19 21:30 43 mg/dL (40-59) 03/07/19 21:30 1.69 % 03/07/19 21:30 Assessment and Plan Assessment and plan: Acute dyspnea CHF with acute exacerbation Recurrent pleural effusions A-Fib(rate control) ESRD on HD Dilated nonischemic cardiomyopathy HTN HDL Elevated troponin (On HD) Plan: Admitted to med/tele for chest pain and pleural effusion Consult pulmonary for pleural effusion Renal diet Resume home meds O2 tp keep sat >92% Supportive care DVT Prophylaxis with heparin Advance Directives: Yes VTE prophylaxis?: Chemical Plan of care discussed with patient/family: Yes
[2019-03-08] MEDS ORDERED: hydrALAZINE 20 MG/1 ML INJ IV SCH (02:00)
[2019-03-08] MEDS ORDERED: NITROGLYCERIN 0.4 MG TAB SUBL SL PRN (02:09)
[2019-03-08] MEDS: hydrALAZINE 20 MG/1 ML INJ IV PRN ×3 (02:21→12:29)
[2019-03-08] MEDS ORDERED: FUROSEMIDE 20 MG/2 ML INJ IV SCH (06:00)
[2019-03-08] MEDS: MORPHINE 4 MG/1 ML INJ IV PRN ×4 (10:00→22:37)
[2019-03-08] MEDS ORDERED: carvediloL 3.125 MG TAB PO SCH (10:00)
[2019-03-08] MEDS ORDERED: LISINOPRIL 5 MG TAB PO SCH (10:00)
--- NOTE | 2019-03-08 10:21 | Consultation ---
History of Present Illness Consult date: 03/08/19 Requesting physician: SHERRY MOBLEY Reason for consult: pleural effusion History of present illness: 72 y/o male with ESRD on HD, well known to me but we have not seen him since December. Has been admitted several times since then. He was most recently admitted the end of January. CXR then revealed left sided pleural effusion. Pulmonary not consulted then. Today, effusion appears to be slightly worse. Has had mul itple thoracentesis in the past. I have never seen family at the bedside. From talking to the patient, Im not sure he has anyone to help him with the pleurx. Past History Past Medical History: atrial fib, CAD, hypertension Past Surgical History: Other (Left arm amputation, HD cath insertion) Social history: no significant social history Family history: no significant family history Medications and Allergies Allergies Allergy/AdvReac Type Severity Reaction Status Date / Time aspirin Allergy Unknown Verified 02/20/19 22:06 pork derived (porcine) Allergy Rash Verified 02/20/19 22:06 venom-honey bee Allergy Anaphylaxis Verified 02/20/19 22:06 [bee venom (honey bee)] Pork/Porcine Containing AdvReac Severe Nausea,VOMI Verified 02/20/19 22:06 Products TING Home Medications Medication Instructions Recorded Confirmed Last Taken Type AtorvaSTATin [Lipitor] 40 mg PO QHS #30 tablet 12/29/18 03/07/19 01/01/19 Rx Famotidine [Pepcid] 10 mg PO BID #15 tablet 12/29/18 03/07/19 01/01/19 Rx amLODIPine [Norvasc] 10 mg PO DAILY #30 tablet 12/29/18 03/07/19 01/01/19 Rx hydrALAZINE [Apresoline TAB] 50 mg PO BID #60 tablet 12/29/18 03/07/19 01/01/19 Rx Carvedilol [Coreg] 25 mg PO BID #60 tablet 01/17/19 03/07/19 Unknown Rx Oxycodone HCl [oxyCODONE] 10 mg PO Q6H PRN #10 tablet 01/23/19 03/07/19 Unknown Rx diphenhydrAMINE [Benadryl CAP] 50 mg PO Q3D PRN 01/30/19 03/07/19 Unknown History Apixaban [Eliquis] 2.5 mg PO Q12HR tablet 02/02/19 03/07/19 Unknown Rx Epoetin Prashant 10,000 Unit [Procrit] 10,000 unit SUB-Q KATERYNA PRN vial 02/02/19 03/07/19 Unknown Rx Lisinopril [Zestril TAB] 5 mg PO QDAY #30 tablet 02/02/19 03/07/19 Unknown Rx HYDROcodone/APAP 5-325 [[place] 1 each PO Q6HR PRN #12 tablet 02/21/19 03/07/19 Unknown Rx 5/325] Ondansetron [Zofran Odt] 4 mg PO Q8HR PRN #14 tab.rapdis 02/28/19 03/07/19 Unknown Rx traMADol [Ultram 50 MG tab] 50 mg PO Q4HR PRN #14 tablet 02/28/19 03/07/19 Unknown Rx Active Meds: Active Medications Acetaminophen (Tylenol) 650 mg PO Q4H PRN PRN Reason: Pain MILD(1-3)/Fever >100.5/DOUGLAS Hydralazine HCl (Apresoline) 10 mg IV Q4H PRN PRN Reason: Hypertension Last Admin: 03/08/19 08:04 Dose: 10 mg Documented by: Morphine Sulfate (Morphine) 4 mg IV Q4H PRN PRN Reason: Pain , Severe (7-10) Last Admin: 03/08/19 10:00 Dose: 4 mg Documented by: Ondansetron HCl (Zofran) 4 mg IV Q8H PRN PRN Reason: Nausea And Vomiting Sodium Chloride (Sodium Chloride Flush Syringe 10 Ml) 10 ml IV BID BEAN Last Admin: 03/08/19 10:08 Dose: 10 ml Documented by: Sodium Chloride (Sodium Chloride Flush Syringe 10 Ml) 10 ml IV PRN PRN PRN Reason: LINE FLUSH Review of Systems All systems: negative Physical Examination Vital signs: Vital Signs Pulse Resp Pulse Ox 86 20 100 03/07/19 20:28 03/07/19 20:28 03/07/19 20:28 General appearance: no acute distress, alert Eyes: non-icteric Effort: normal Ascultation: Left: diminished breath sounds Percussion: Left: dull Tactile fremitus: Right: normal Cardiovascular: regular rate and rhythm Gastrointestinal: normoactive bowel sounds, soft normal mental status mood appropriate Results - Laboratory Findings CBC and BMP: 03/07/19 21:30 03/07/19 21:30 Abnormal lab findings: Abnormal Labs 03/07/19 03/07/19 03/07/19 21:30 21:30 21:30 WBC 3.0 L RBC 3.54 L Hgb 11.5 L Hct 35.1 L MCV 99 H MCH 33 H RDW 15.6 H Plt Count 67 L [place] % (Auto) 9.7 H Lymph # 0.7 L Sodium 136 L Creatinine 3.6 H Alkaline Phosphatase 135 H Troponin T 0.270 H* Albumin 3.3 L LDL Cholesterol Direct 28 L 03/07/19 03/08/19 22:59 03:28 WBC RBC Hgb Hct MCV MCH RDW Plt Count [place] % (Auto) Lymph # Sodium Creatinine Alkaline Phosphatase Troponin T 0.294 H* 0.266 H* Albumin LDL Cholesterol Direct - Diagnostic Findings Chest x-ray: image reviewed (large left side effusion) Assessment and Plan 72 y/o with recurrent left sided pleural effusion. 1. We attempt to speak to patient again about pleurx 2. In the mean time, no objection to thoracentesis. NO need to send labs as it is a transudate 3. HD per renal, they are not able to pull more fluid 4. Will continue to follow with you.
[2019-03-08] MEDS ORDERED: DEXTROSE 50% IN WATER (25GM) 50 ML SYRINGE IV PRN (12:40)
--- NOTE | 2019-03-08 13:13 | Progress Note ---
Assessment and Plan Assessment and plan: 72-year-old man with history of end-stage renal disease and recurrent left lung effusion. States that he has been having thoracentesis every other week. He developed chest pain or shortness of breath prompting him to come to the ER. Diagnosis End-stage renal disease Recurrent left lung effusion which is transudate if Hypertensive urgency Chronic atrial fibrillation Plan Continue dialysis per nephrology Discussed with beadworker, as the effusion is transudative and recurrence, have offered Pleurx catheter to the patient, he is agreeable to wait, IR consulted for placement of Pleurx catheter Optimize blood pressure medications Continue Coreg, Eliquis on hold as patient is planned for Pleurx catheter placement. Heparin drip for now. DVT prophylaxis chemical History Interval history: Review of systems Constitutional: No fevers, no malaise, no joint pains CVS: Continues to complain of atypical chest pain, and shortness of breath GI: No abdominal pain, no diarrhea, no vomiting, no constipation Respiratory: Continues to have shortness of breath, no wheezing, no coughing Hospitalist Physical - Physical exam Narrative exam: General.: Mild distress, cachectic HEENT: Moist mucous membranes, extraocular muscles intact, no lymphadenopathy Neck: supple Cardiac: S1-S2 heard Lungs: Dullness to left lung Abdomen: soft , nontender, nondistended, bowel sounds positive Extremities: no edema clubbing or cyanosis Skin: no rash or lesions Neurologic: no gross focal deficits Psych: calm, and cooperative - Constitutional Vitals: Temp Pulse Resp BP Pulse Ox 98.3 F 107 H 18 156/115 98 03/08/19 07:51 03/08/19 12:29 03/08/19 10:00 03/08/19 12:29 03/08/19 07:51 General appearance: Present: mild distress Results - Labs CBC & Chem 7: 03/07/19 21:30 03/07/19 21:30 Labs: Laboratory Last Values WBC 3.0 K/mm3 (4.5-11.0) L 03/07/19 21:30 RBC 3.54 M/mm3 (3.65-5.03) L 03/07/19 21:30 Hgb 11.5 gm/dl (11.8-15.2) L 03/07/19 21:30 Hct 35.1 % (35.5-45.6) L 03/07/19 21:30 MCV 99 fl (84-94) H 03/07/19 21:30 MCH 33 pg (28-32) H 03/07/19 21:30 MCHC 33 % (32-34) 03/07/19 21:30 RDW 15.6 % (13.2-15.2) H 03/07/19 21:30 Plt Count 67 K/mm3 (140-440) L 03/07/19 21:30 Lymph % (Auto) 22.1 % (13.4-35.0) 03/07/19 21:30 [place] % (Auto) 9.7 % (0.0-7.3) H 03/07/19 21:30 Eos % (Auto) 1.4 % (0.0-4.3) 03/07/19 21:30 Baso % (Auto) 1.3 % (0.0-1.8) 03/07/19 21:30 Lymph # 0.7 K/mm3 (1.2-5.4) L 03/07/19 21:30 [place] # 0.3 K/mm3 (0.0-0.8) 03/07/19 21:30 Eos # 0.0 K/mm3 (0.0-0.4) 03/07/19 21:30 Baso # 0.0 K/mm3 (0.0-0.1) 03/07/19 21:30 Seg Neutrophils % 65.5 % (40.0-70.0) 03/07/19 21:30 Seg Neutrophils # 2.0 K/mm3 (1.8-7.7) 03/07/19 21:30 Sodium 136 mmol/L (137-145) L 03/07/19 21:30 Potassium 3.6 mmol/L (3.6-5.0) 03/07/19 21:30 Chloride 98.1 mmol/L (98-107) 03/07/19 21:30 Carbon Dioxide 27 mmol/L (22-30) 03/07/19 21:30 15 mmol/L 03/07/19 21:30 BUN 12 mg/dL (9-20) 03/07/19 21:30 3.6 mg/dL (0.8-1.5) H 03/07/19 21:30 Estimated GFR 20 ml/min 03/07/19 21:30 3 % 03/07/19 21:30 Glucose 91 mg/dL (75-100) 03/07/19 21:30 Calcium 8.6 mg/dL (8.4-10.2) 03/07/19 21:30 0.70 mg/dL (0.1-1.2) 03/07/19 21:30 0.2 mg/dL (0-0.2) 03/07/19 21:30 0.5 mg/dL 03/07/19 21:30 AST 28 units/L (5-40) 03/07/19 21:30 ALT 25 units/L (7-56) 03/07/19 21:30 135 units/L (35-129) H 03/07/19 21:30 0.266 ng/mL (0.00-0.029) H* 03/08/19 03:28 6.7 g/dL (6.3-8.2) 03/07/19 21:30 3.3 g/dL (3.9-5) L 03/07/19 21:30 1.0 % 03/07/19 21:30 Triglycerides 51 mg/dL (2-149) 03/07/19 21:30 Cholesterol 73 mg/dL (50-199) 03/07/19 21:30 28 mg/dL (50-130) L 03/07/19 21:30 43 mg/dL (40-59) 03/07/19 21:30 1.69 % 03/07/19 21:30 Active Medications - Current Medications Current Medications: Generic Name Dose Route Start Last Admin Trade Name Freq PRN Reason Stop Dose Admin Acetaminophen 650 mg 03/07/19 23:22 Tylenol PO Q4H PRN Pain MILD(1-3)/Fever >100.5/DOUGLAS Dextrose 50 ml 03/08/19 12:40 D50w (25gm) Syringe IV PRN PRN Hypoglycemia Hydralazine HCl 10 mg 03/08/19 02:02 03/08/19 12:29 Apresoline IV 10 mg Q4H PRN Administration Hypertension Insulin Human Lispro 0 unit 03/08/19 16:30 Humalog SUB-Q ACHS BEAN Protocol Morphine Sulfate 4 mg 03/08/19 09:33 03/08/19 10:00 Morphine IV 4 mg Q4H PRN Administration Pain , Severe (7-10) Ondansetron HCl 4 mg 03/07/19 23:22 Zofran IV Q8H PRN Nausea And Vomiting Sodium Chloride 10 ml 03/08/19 10:00 03/08/19 10:08 Sodium Chloride Flush Syringe 10 Ml IV 10 ml BID BEAN Administration Sodium Chloride 10 ml 03/07/19 23:22 Sodium Chloride Flush Syringe 10 Ml IV PRN PRN LINE FLUSH Nutrition/Malnutrition Assess - Dietary Evaluation Nutrition/Malnutrition Findings: Nutrition Notes Start: 03/08/19 09:52 Freq: Status: Active Protocol: Document 03/08/19 09:52 DW (Rec: 03/08/19 11:17 DW [id number]) Co-Sign 03/08/19 09:52 LP Nutrition Notes Need for Assessment generated from: MD Order,rn intern,MST,Low BMI Initial or Follow up Assessment Current Diagnosis CKD (stage V CKD),COPD, Coronary Artery Disease,Heart Failure Other Pertinent Diagnosis HD,Afib,DVT,PulmonaryEdema, Pleural Effusion,Dialated Nonishemic Cardiopathy Current Diet Cardiac Diet Labs/Tests Na: 136 Pertinent Medications Reviewed Height 5 ft 9 in Weight 50.2 kg Usual Body Weight 68.1 kg [place] Body Weight (kg) 72.72 BMI 16.3 Intake Prior to Admission Poor Weight change and time frame 33% wt loss in 6 months Subjective/Other Information MD consult for ONS, Nurse consult for MST Pt stated that his UBW was 150 6 months ago and his appetite has became poor around the same time. He also stated that he has never been this small in his life. Pt stated that his typically cooks for him and likes to eat fish, chicken, spinach, corn. Pt also stated he consumed 50% of his breakfast this morning. NFPE noted severe muscle and fat depletion Burn Absent Trauma Absent GI Symptoms None Food Allergy No Cultural/Ethnic/Sabianism Belief no pork Minimum of two criteria Yes Energy Intake (non-severe) <75% Estimated Energy Requirement >7 days Interpretation of Weight Loss (severe) >10% in 6 months Body Fat Depletion Moderate depletion (severe) Muscle Mass Moderate Depletion (severe) #1 Nutrition Diagnosis Malnutrition Etiology poor appetite secondary to chronic illness As Evidenced by Signs and Symptoms decreaed PO intake in 6 months , 33% wt loss in 6 months, fat and mucsle depletion Is patient on ventilator? No Is Patient Ambulatory and/or Out of Bed No [facility] 1503.060 Kcal/Kg value to use for calculation 40 Approximate Energy Requirements Using 2008 kcal/Kg Calculation Used for Recommendations Kcal/kg Additional Notes PRO needs: 60-75g (1.2-1.5g/kg ) Fluid needs:1-1.5 L/day ( Anuric ESRD-HD) Nutrition Intervention Change Diet Order: Continue current diet Add Supplement/Snack (indicate name/kcal Ensure Clear Mixed Marie BID /protein ) Provides kCal: 480 Provides Protein (gm) 16 Goal #1 Meet atleast 80% PRO/kcal needs via PO/ONS Goal #2 Wt gain/maintenance Follow-Up By: 03/11/19 Additional Comments FU PO/ONS intake
--- NOTE | 2019-03-08 16:04 | Consultation ---
History of Present Illness - Reason for Consult Consult date: 03/08/19 recurrent pleural effusion - History of Present Illness HPI: 72yo male with multiple medical problems presents with recurrent left sided pleural effusion. Patient began having chest pain and SOB prior to dialysis yesterday. The patient has required multiple thoracentesis procedures over the past 3-4 months. We have been consulted to consider pleur-X catheter placement. The patient quit smoking 3-4 years ago The patient is on 2L oxygen at baseline. PE: NAD, A&O x3 RRR non-labored respirations amputated left arm abd soft, nt, nd both feet warm CXR reviewed A/P: d/w patient about pleur-x catheter placement patient is amenable to catheter placement but would like to d/w obtain Chest CT will plan on pleur-x catheter placement on Monday Past History Past Medical History: atrial fib, CAD, hypertension Past Surgical History: Other (Left arm amputation, HD cath insertion) Social history: no significant social history Family history: no significant family history Medications and Allergies Allergies Allergy/AdvReac Type Severity Reaction Status Date / Time aspirin Allergy Unknown Verified 02/20/19 22:06 pork derived (porcine) Allergy Rash Verified 02/20/19 22:06 venom-honey bee Allergy Anaphylaxis Verified 02/20/19 22:06 [bee venom (honey bee)] Pork/Porcine Containing AdvReac Severe Nausea,VOMI Verified 02/20/19 22:06 Products TING Home Medications Medication Instructions Recorded Confirmed Last Taken Type AtorvaSTATin [Lipitor] 40 mg PO QHS #30 tablet 12/29/18 03/07/19 01/01/19 Rx Famotidine [Pepcid] 10 mg PO BID #15 tablet 12/29/18 03/07/19 01/01/19 Rx amLODIPine [Norvasc] 10 mg PO DAILY #30 tablet 12/29/18 03/07/19 01/01/19 Rx hydrALAZINE [Apresoline TAB] 50 mg PO BID #60 tablet 12/29/18 03/07/19 01/01/19 Rx Carvedilol [Coreg] 25 mg PO BID #60 tablet 01/17/19 03/07/19 Unknown Rx Oxycodone HCl [oxyCODONE] 10 mg PO Q6H PRN #10 tablet 01/23/19 03/07/19 Unknown Rx diphenhydrAMINE [Benadryl CAP] 50 mg PO Q3D PRN 01/30/19 03/07/19 Unknown History Apixaban [Eliquis] 2.5 mg PO Q12HR tablet 02/02/19 03/07/19 Unknown Rx Epoetin Prashant 10,000 Unit [Procrit] 10,000 unit SUB-Q KATERYNA PRN vial 02/02/19 03/07/19 Unknown Rx Lisinopril [Zestril TAB] 5 mg PO QDAY #30 tablet 02/02/19 03/07/19 Unknown Rx HYDROcodone/APAP 5-325 [[place] 1 each PO Q6HR PRN #12 tablet 02/21/19 03/07/19 Unknown Rx 5/325] Ondansetron [Zofran Odt] 4 mg PO Q8HR PRN #14 tab.rapdis 02/28/19 03/07/19 Unknown Rx traMADol [Ultram 50 MG tab] 50 mg PO Q4HR PRN #14 tablet 02/28/19 03/07/19 Unknown Rx Active Meds: Active Medications Acetaminophen (Tylenol) 650 mg PO Q4H PRN PRN Reason: Pain MILD(1-3)/Fever >100.5/DOUGLAS Dextrose (D50w (25gm) Syringe) 50 ml IV PRN PRN PRN Reason: Hypoglycemia Hydralazine HCl (Apresoline) 10 mg IV Q4H PRN PRN Reason: Hypertension Last Admin: 03/08/19 12:29 Dose: 10 mg Documented by: Insulin Human Lispro (Humalog) 0 unit SUB-Q [facility]; Protocol Morphine Sulfate (Morphine) 4 mg IV Q4H PRN PRN Reason: Pain , Severe (7-10) Last Admin: 03/08/19 14:20 Dose: 4 mg Documented by: Ondansetron HCl (Zofran) 4 mg IV Q8H PRN PRN Reason: Nausea And Vomiting Sodium Chloride (Sodium Chloride Flush Syringe 10 Ml) 10 ml IV BID BEAN Last Admin: 03/08/19 10:08 Dose: 10 ml Documented by: Sodium Chloride (Sodium Chloride Flush Syringe 10 Ml) 10 ml IV PRN PRN PRN Reason: LINE FLUSH Exam - Constitutional Vitals: Temp Pulse Resp BP Pulse Ox 98.3 F 107 H 18 156/115 98 03/08/19 07:51 03/08/19 12:29 03/08/19 14:20 03/08/19 12:29 03/08/19 07:51 Results - Labs CBC & Chem 7: 03/07/19 21:30 03/07/19 21:30 Labs: Abnormal lab results 03/07/19 03/07/19 03/07/19 Range/Units 21:30 21:30 21:30 WBC 3.0 L (4.5-11.0) K/mm3 RBC 3.54 L (3.65-5.03) M/mm3 Hgb 11.5 L (11.8-15.2) gm/dl Hct 35.1 L (35.5-45.6) % MCV 99 H (84-94) fl MCH 33 H (28-32) pg RDW 15.6 H (13.2-15.2) % Plt Count 67 L (140-440) K/mm3 [place] % (Auto) 9.7 H (0.0-7.3) % Lymph # 0.7 L (1.2-5.4) K/mm3 Sodium 136 L (137-145) mmol/L Creatinine 3.6 H (0.8-1.5) mg/dL Alkaline Phosphatase 135 H (35-129) units/L Troponin T 0.270 H* (0.00-0.029) ng/mL Albumin 3.3 L (3.9-5) g/dL LDL Cholesterol Direct 28 L (50-130) mg/dL 03/07/19 03/08/19 Range/Units 22:59 03:28 WBC (4.5-11.0) K/mm3 RBC (3.65-5.03) M/mm3 Hgb (11.8-15.2) gm/dl Hct (35.5-45.6) % MCV (84-94) fl MCH (28-32) pg RDW (13.2-15.2) % Plt Count (140-440) K/mm3 [place] % (Auto) (0.0-7.3) % Lymph # (1.2-5.4) K/mm3 Sodium (137-145) mmol/L Creatinine (0.8-1.5) mg/dL Alkaline Phosphatase (35-129) units/L Troponin T 0.294 H* 0.266 H* (0.00-0.029) ng/mL Albumin (3.9-5) g/dL LDL Cholesterol Direct (50-130) mg/dL
[2019-03-08] MEDS: INSULIN LISPRO 100 UNIT/ML SUB-Q SCH ×2 (18:06→22:36)
[2019-03-08] MEDS ORDERED: diphenhydrAMINE 50 MG/ML VIAL IV ONE (23:39)
[2019-03-09] MEDS: hydrALAZINE 20 MG/1 ML INJ IV PRN ×3 (00:30→15:20)
[2019-03-09] MEDS: MORPHINE 4 MG/1 ML INJ IV PRN ×4 (03:18→21:29)
[2019-03-09] MEDS: ONDANSETRON 4 MG/2 ML INJ IV PRN ×2 (06:54→17:39)
--- NOTE | 2019-03-09 08:41 | Consultation ---
History of Present Illness - Reason for Consult Consult date: 03/09/19 end stage renal disease - History of Present Illness The patient is a 72 YO male who is known to our service with history significant for DM type 2, HTN, Chronic A.fib, CAD, CHF, PTSD, PAD s/p left forearm amputation, chronic L pleural effusion (Transudate) s/p multiple thoracentesis and ESRD on hemodialysis (TTS) who presented to [facility] ED with sob and L sided CP. Of note he was admitted multiple times with similar presentation. Patient developed chest pain and SOB while on hemodialysis on 03/07. His pain got better with sublingual nitroglycerin. Pt states that he completed the dialysis treatment. After he went home he developed SOB and chest pain. Chest x-ray in the ER showed a large L pleural effusion and mild interstitial pulmonary edema. Pt is admitted for further management of the pleural effusion. Patient denies N, V, palpitation, dizziness or syncope. Nephrology was consulted for ESRD management. Past History Past Medical History: atrial fib, CAD, dialysis, ESRD, heart failure, hypertension Past Surgical History: Other (Left arm amputation, HD cath insertion) Social history: no significant social history Family history: no significant family history Medications and Allergies Allergies Allergy/AdvReac Type Severity Reaction Status Date / Time aspirin Allergy Unknown Verified 02/20/19 22:06 pork derived (porcine) Allergy Rash Verified 02/20/19 22:06 venom-honey bee Allergy Anaphylaxis Verified 02/20/19 22:06 [bee venom (honey bee)] Pork/Porcine Containing AdvReac Severe Nausea,VOMI Verified 02/20/19 22:06 Products TING Home Medications Medication Instructions Recorded Confirmed Last Taken Type AtorvaSTATin [Lipitor] 40 mg PO QHS #30 tablet 12/29/18 03/07/19 01/01/19 Rx Famotidine [Pepcid] 10 mg PO BID #15 tablet 12/29/18 03/07/19 01/01/19 Rx amLODIPine [Norvasc] 10 mg PO DAILY #30 tablet 12/29/18 03/07/19 01/01/19 Rx hydrALAZINE [Apresoline TAB] 50 mg PO BID #60 tablet 12/29/18 03/07/19 01/01/19 Rx Carvedilol [Coreg] 25 mg PO BID #60 tablet 01/17/19 03/07/19 Unknown Rx Oxycodone HCl [oxyCODONE] 10 mg PO Q6H PRN #10 tablet 01/23/19 03/07/19 Unknown Rx diphenhydrAMINE [Benadryl CAP] 50 mg PO Q3D PRN 01/30/19 03/07/19 Unknown History Apixaban [Eliquis] 2.5 mg PO Q12HR tablet 02/02/19 03/07/19 Unknown Rx Epoetin Prashant 10,000 Unit [Procrit] 10,000 unit SUB-Q KATERYNA PRN vial 02/02/19 03/07/19 Unknown Rx Lisinopril [Zestril TAB] 5 mg PO QDAY #30 tablet 02/02/19 03/07/19 Unknown Rx HYDROcodone/APAP 5-325 [[place] 1 each PO Q6HR PRN #12 tablet 02/21/19 03/07/19 Unknown Rx 5/325] Ondansetron [Zofran Odt] 4 mg PO Q8HR PRN #14 tab.rapdis 02/28/19 03/07/19 Unknown Rx traMADol [Ultram 50 MG tab] 50 mg PO Q4HR PRN #14 tablet 02/28/19 03/07/19 Unknown Rx Active Meds: Active Medications Acetaminophen (Tylenol) 650 mg PO Q4H PRN PRN Reason: Pain MILD(1-3)/Fever >100.5/DOUGLAS Dextrose (D50w (25gm) Syringe) 50 ml IV PRN PRN PRN Reason: Hypoglycemia Hydralazine HCl (Apresoline) 10 mg IV Q4H PRN PRN Reason: Hypertension Last Admin: 03/09/19 06:54 Dose: 10 mg Documented by: Insulin Human Lispro (Humalog) 0 unit SUB-Q ACHS [facility]; Protocol Last Admin: 03/08/19 22:36 Dose: Not Given Documented by: Morphine Sulfate (Morphine) 4 mg IV Q4H PRN PRN Reason: Pain , Severe (7-10) Last Admin: 03/09/19 06:54 Dose: 4 mg Documented by: Ondansetron HCl (Zofran) 4 mg IV Q8H PRN PRN Reason: Nausea And Vomiting Last Admin: 03/09/19 06:54 Dose: 4 mg Documented by: Sodium Chloride (Sodium Chloride Flush Syringe 10 Ml) 10 ml IV BID [facility] Last Admin: 03/08/19 22:38 Dose: 10 ml Documented by: Sodium Chloride (Sodium Chloride Flush Syringe 10 Ml) 10 ml IV PRN PRN PRN Reason: LINE FLUSH Review of Systems Constitutional: no weight loss, no weight gain, no fever, no chills, no anorexia, no fatigue, no weakness, no poor appetite Cardiovascular: chest pain, shortness of breath, dyspnea on exertion, high blood pressure, no orthopnea, no edema, no syncope, no lightheadedness Respiratory: shortness of breath, dyspnea on exertion, no cough, no hemoptysis, no home oxygen Gastrointestinal: no abdominal pain, no nausea, no vomiting, no diarrhea, no melena Genitourinary Male: no dysuria, no hematuria Rectal: no bleeding Integumentary: no rash, no sores, no wounds Neurological: no paralysis, no weakness, no seizures, no syncope, no convulsions, no aphasia, no change in speech, no change in mentation, no confusion, no memory loss Exam - Vital Signs Vital signs: Vital Signs Pulse Resp Pulse Ox 86 20 100 03/07/19 20:28 03/07/19 20:28 03/07/19 20:28 - General Appearance General appearance: well-developed, well-nourished, appears stated age, other (no distress, R IJ tunnel catheter) EENT: ATNC, PERRL, hearing intact, vision intact Neck: Present: neck supple, trachea midline Respiratory: Clear to Ascultation, Decreased Breath Sounds (L side) Heart: irregularly irregular, S1S2 Gastrointestinal: Present: normoactive bowel sounds. Absent: tenderness, distended Integumentary: no rash, warm and dry Neurologic: no focal deficit, no asterixis, alert and oriented x3 Musculoskeletal: Present: other (no edema, L forearm amputation) Results - Lab Results 03/09/19 10:10 03/07/19 21:30 Most recent lab results Calcium 8.6 mg/dL (8.4-10.2) 03/07/19 21:30 Assessment and Plan 1. ESRD: Continue hemodialysis three times a week, TTS schedule. HD today after CT chest. 2. FEN: Monitor. 3. Chest pain / sob: Associated with chronic L sided pleural effusion. Followed by Pulmonary. Pleur-X catheter placement per IR. 4. A.fib: Rate controlled. On Lovenox. 5. HTN. 6. Anemia: Epogen if needed. 7. PAD.
[2019-03-09] MEDS ORDERED: SODIUM CHLORIDE 0.9% 100 ML IV PRN (08:52)
[2019-03-09] MEDS: INSULIN LISPRO 100 UNIT/ML SUB-Q SCH ×4 (08:55→21:24)
[2019-03-09] MEDS ORDERED: diphenhydrAMINE 50 MG CAP PO PRN (09:15)
[2019-03-09] MEDS ORDERED: NON-FORMULARY EACH (Oxycodone Hcl [Oxycodone] 10 MG) PO PRN (09:15)
[2019-03-09] MEDS ORDERED: traMADol 50 MG TAB PO PRN (09:15)
--- NOTE | 2019-03-09 09:25 | Progress Note ---
Assessment and Plan - Patient Problems (1) Atrial fibrillation Current Visit: Yes Status: Acute Qualifiers: Atrial fibrillation type: chronic Qualified Code(s): I48.2 - Chronic atrial fibrillation (2) ESRD (end stage renal disease) on dialysis Current Visit: Yes Status: Acute (3) Pleural effusion, left Current Visit: Yes Status: Acute (4) Uncontrolled hypertension Current Visit: Yes Status: Acute Subjective Interval history: still sob Objective Vital Signs - 12hr 03/08/19 03/08/19 03/08/19 22:00 23:15 23:21 Temperature 98.0 F Pulse Rate 98 H 94 H Respiratory 19 18 Rate Blood Pressure 175/131 Blood Pressure 164/90 [Left] O2 Sat by Pulse 100 Oximetry 03/08/19 03/09/19 03/09/19 23:34 00:30 03:18 Temperature Pulse Rate 116 H Respiratory 20 Rate Blood Pressure 164/98 Blood Pressure 164/98 [Left] O2 Sat by Pulse Oximetry 03/09/19 03/09/19 03/09/19 04:31 04:34 06:54 Temperature 98.1 F Pulse Rate 102 H 112 H Respiratory 18 20 Rate Blood Pressure 174/131 170/94 Blood Pressure 170/94 [Left] O2 Sat by Pulse 98 Oximetry Constitutional: no acute distress, alert Eyes: non-icteric ENT: oropharynx moist Effort: normal Ascultation: Left: diminished breath sounds Percussion: Left: dull Tactile fremitus: Right: normal Cardiovascular: regular rate and rhythm Gastrointestinal: normoactive bowel sounds, soft Neurologic: normal mental status Psychiatric: mood appropriate CBC and BMP: 03/07/19 21:30 03/07/19 21:30 Abnormal lab findings: Abnormal Labs 03/07/19 03/07/19 03/07/19 21:30 21:30 21:30 WBC 3.0 L RBC 3.54 L Hgb 11.5 L Hct 35.1 L MCV 99 H MCH 33 H RDW 15.6 H Plt Count 67 L [place] % (Auto) 9.7 H Lymph # 0.7 L Sodium 136 L Creatinine 3.6 H POC Glucose Alkaline Phosphatase 135 H Troponin T 0.270 H* Albumin 3.3 L LDL Cholesterol Direct 28 L 03/07/19 03/08/19 03/08/19 22:59 03:28 21:46 WBC RBC Hgb Hct MCV MCH RDW Plt Count [place] % (Auto) Lymph # Sodium Creatinine POC Glucose 118 H Alkaline Phosphatase Troponin T 0.294 H* 0.266 H* Albumin LDL Cholesterol Direct
--- NOTE | 2019-03-09 09:53 | Cat Scan Report ---
CT chest w con INDICATION / CLINICAL INFORMATION: large pleural effusion. TECHNIQUE: All CT scans at this location are performed using CT dose reduction for ALARA by means of automated e xposure control. COMPARISON: 12/25/2018 FINDINGS: A moderate-sized left-sided pleural effusion is present with basilar atelectasis. A small right pleur al effusion is seen. Cardiomegaly is present. Ectasia of the ascending thoracic aorta and aortic arch is again seen unchanged. No enlarged mediastinal or hilar lymph nodes are present. Incompletely eval uated polycystic kidneys are again seen. Diffuse sclerosis is again seen in the skeletal structures c onsistent with renal osteodystrophy IMPRESSION: 1. Moderate-sized left pleural effusion with basilar atelectasis. 2. Small right pleural effusion 3. Cardiomegaly 4. Ectasia of the ascending thoracic aorta and aortic arch unchanged from 12/25/2018 5. Incompletely evaluated polycystic kidneys 6. Renal osteodystrophy Signer Name: Anthony Soto MD FACR Signed: 03/09/2019 9:49 AM Workstation Name: [id number]
[2019-03-09] MEDS ORDERED: LISINOPRIL 5 MG TAB PO SCH (10:00)
[2019-03-09] MEDS: FAMOTIDINE 10 MG TAB PO SCH ×2 (10:31→21:23)
[2019-03-09] MEDS: amLODIPine 10 MG TAB PO SCH (10:32)
[2019-03-09] MEDS: carvediloL 25 MG TAB PO SCH ×2 (10:32→21:23)
[2019-03-09] MEDS: hydrALAZINE 25 MG TAB PO SCH ×2 (10:32→21:23)
[2019-03-09 10:33] LABS: Hematocrit 41.6 % (35.5-45.6); Hemoglobin 13.5 gm/dl (11.8-15.2)
[2019-03-09 10:43] LABS: INR 1.37 (0.87-1.13)
[2019-03-09 10:45] LABS: Partial Thromboplastin Time 37.7 Sec. (24.2-36.6)
--- NOTE | 2019-03-09 11:05 | Progress Note ---
Assessment and Plan A/p End-stage renal disease---Getting Dialysis Recurrent left lung effusion which is transudate Hypertensive urgency--Bp still high Chronic atrial fibrillation Plan Continue dialysis per nephrology Discussed with occupational therapy aides teacher, as the effusion is transudative and recurrence, have offered Pleurx catheter to the patient, he is agreeable to wait, IR consulted for placement of Pleurx catheter---Patient is getting pleurx cath on Monday Optimize blood pressure medications--Added Losartan Continue Coreg, Eliquis on hold as patient is planned for Pleurx catheter placement. Heparin drip for now. DVT prophylaxis chemical Subjective Date of service: 03/09/19 Principal diagnosis: ESRd Afib L pleural effusion Interval history: 72-year-old man with history of end-stage renal disease and recurrent left lung effusion. States that he has been having thoracentesis every other week. He developed chest pain or shortness of breath prompting him to come to the ER. Symptomatically better Waiting for Pleurx cath insertion on Monday Objective - Constitutional Vitals: Vital Signs - 12hr 03/08/19 03/08/19 03/08/19 23:15 23:21 23:34 Temperature 98.0 F Pulse Rate 94 H Respiratory 18 Rate Blood Pressure 175/131 Blood Pressure 164/90 164/98 [Left] O2 Sat by Pulse 100 Oximetry 03/09/19 03/09/19 03/09/19 00:30 03:18 04:31 Temperature Pulse Rate 116 H 102 H Respiratory 20 18 Rate Blood Pressure 164/98 174/131 Blood Pressure [Left] O2 Sat by Pulse 98 Oximetry 03/09/19 03/09/19 03/09/19 04:34 06:54 10:31 Temperature 98.1 F Pulse Rate 112 H 63 Respiratory 20 Rate Blood Pressure 170/94 160/111 Blood Pressure 170/94 [Left] O2 Sat by Pulse Oximetry 03/09/19 10:32 Temperature Pulse Rate 63 Respiratory Rate Blood Pressure 160/111 Blood Pressure [Left] O2 Sat by Pulse Oximetry General appearance: Present: no acute distress, well-nourished - EENT Eyes: PERRL, EOM intact ENT: hearing intact, clear oral mucosa Ears: bilateral: normal - Neck Neck: supple, normal ROM - Respiratory Respiratory effort: normal Respiratory: bilateral: CTA - Breasts Breasts: normal - Cardiovascular Heart rate: 78 Rhythm: irregularly irregular Heart Sounds: Present: S1 & S2. Absent: gallop, rub Extremities: pulses intact, No edema, normal color, Full ROM - Gastrointestinal General gastrointestinal: Present: soft, non-tender, non-distended, normal bowel sounds Rectal Exam: deferred - Genitourinary Male genitourinary: normal - Integumentary Integumentary: clear, warm, dry - Musculoskeletal Musculoskeletal: 1, strength equal bilaterally - Neurologic Neurologic: moves all extremities - Psychiatric Psychiatric: memory intact, appropriate mood/affect, intact judgment & insight - Allied health notes Allied health notes reviewed: nursing, case management - Labs CBC & Chem 7: 03/09/19 10:10 03/07/19 21:30 Labs: Abnormal lab results 03/08/19 03/09/19 03/09/19 Range/Units 21:46 10:10 10:10 Plt Count 79 L (140-440) K/mm3 PT 16.5 H (12.2-14.9) Sec. INR 1.37 H (0.87-1.13) APTT 37.7 H (24.2-36.6) Sec. POC Glucose 118 H (70-105)
[2019-03-09] MEDS: diphenhydrAMINE 50 MG/ML VIAL IV PRN (11:53)
[2019-03-09] MEDS ORDERED: HEPARIN/ 0.45% NACL DRIP 25,000 UNIT/500 ML BAG IV SCH (12:00)
[2019-03-09] MEDS: LOSARTAN 50 MG TAB PO SCH (15:17)
[2019-03-09] MEDS: HYDROcodone/ACETAMINOPHEN 5-325 MG TAB PO PRN (15:18)
[2019-03-09] MEDS: ENOXAPARIN 60 MG/0.6 ML INJ SUB-Q SCH (17:14)
[2019-03-09] MEDS ORDERED: SODIUM CHLORIDE*PRIMING MACHINE ONLY FOR DIALYSIS MC ONE (17:36)
[2019-03-09] MEDS ORDERED: ENOXAPARIN 60 MG/0.6 ML INJ SUB-Q SCH (18:00)
[2019-03-10] MEDS: MORPHINE 4 MG/1 ML INJ IV PRN ×4 (01:32→20:34)
[2019-03-10] MEDS: ENOXAPARIN 60 MG/0.6 ML INJ SUB-Q SCH ×2 (05:35→17:37)
[2019-03-10 05:42] LABS: Hematocrit 32.7 % (35.5-45.6); Hemoglobin 10.7 gm/dl (11.8-15.2); Mean Corpuscular HGB Conc 33 % (32-34); Mean Corpuscular Volume 99 fl (84-94); Red Blood Count 3.31 M/mm3 (3.65-5.03); Red Cell Distribution Width 15.8 % (13.2-15.2)
[2019-03-10 05:46] LABS: Calcium 8.9 mg/dL (8.4-10.2)
[2019-03-10 05:53] LABS: Platelet Count 74 K/mm3 (140-440)
[2019-03-10] MEDS: diphenhydrAMINE 50 MG/ML VIAL IV PRN (06:29)
[2019-03-10 06:49] LABS: RBC Morphology Normal; Total Cells Counted 100
--- NOTE | 2019-03-10 08:01 | Progress Note ---
Assessment and Plan - Patient Problems (1) Atrial fibrillation Current Visit: Yes Status: Acute Qualifiers: Atrial fibrillation type: chronic Qualified Code(s): I48.2 - Chronic atrial fibrillation (2) ESRD (end stage renal disease) on dialysis Current Visit: Yes Status: Acute (3) Pleural effusion, left Current Visit: Yes Status: Acute (4) Uncontrolled hypertension Current Visit: Yes Status: Acute Subjective Principal diagnosis: ESRd Afib L pleural effusion Interval history: sp HD feels sl better Objective Vital Signs - 12hr 03/09/19 03/09/19 03/10/19 22:00 23:02 04:23 Temperature 100.0 F H 98.4 F Pulse Rate 92 H 100 H 59 L Respiratory 20 20 18 Rate Blood Pressure 134/93 112/72 O2 Sat by Pulse 98 48 L Oximetry 03/10/19 04:25 Temperature Pulse Rate Respiratory Rate Blood Pressure O2 Sat by Pulse 95 Oximetry Constitutional: no acute distress, alert Eyes: non-icteric ENT: oropharynx moist Neck: supple Effort: normal Ascultation: Left: diminished breath sounds Percussion: Left: dull Tactile fremitus: Right: normal Cardiovascular: regular rate and rhythm Gastrointestinal: normoactive bowel sounds, soft Extremities: no cyanosis Neurologic: normal mental status Psychiatric: mood appropriate CBC and BMP: 03/10/19 04:52 03/10/19 04:52 ABG, PT/INR, D-dimer: PT/INR, D-dimer PT 16.5 Sec. (12.2-14.9) H 03/09/19 10:10 INR 1.37 (0.87-1.13) H 03/09/19 10:10 Abnormal lab findings: Abnormal Labs 03/07/19 03/07/19 03/07/19 21:30 21:30 21:30 WBC 3.0 L RBC 3.54 L Hgb 11.5 L Hct 35.1 L MCV 99 H MCH 33 H RDW 15.6 H Plt Count 67 L [place] % (Auto) 9.7 H Lymph # 0.7 L Monocytes % (Manual) Seg Neutrophils # Man Lymphocytes # (Manual) PT INR APTT Sodium 136 L Creatinine 3.6 H POC Glucose Alkaline Phosphatase 135 H Troponin T 0.270 H* Albumin 3.3 L LDL Cholesterol Direct 28 L 03/07/19 03/08/19 03/08/19 22:59 03:28 21:46 WBC RBC Hgb Hct MCV MCH RDW Plt Count [place] % (Auto) Lymph # Monocytes % (Manual) Seg Neutrophils # Man Lymphocytes # (Manual) PT INR APTT Sodium Creatinine POC Glucose 118 H Alkaline Phosphatase Troponin T 0.294 H* 0.266 H* Albumin LDL Cholesterol Direct 03/09/19 03/09/19 03/10/19 10:10 10:10 04:52 WBC 2.5 L RBC 3.31 L Hgb 10.7 L Hct 32.7 L D MCV 99 H MCH RDW 15.8 H Plt Count 79 L 74 L [place] % (Auto) Lymph # Monocytes % (Manual) 14.0 H Seg Neutrophils # Man 1.5 L Lymphocytes # (Manual) 0.6 L PT 16.5 H INR 1.37 H APTT 37.7 H Sodium Creatinine POC Glucose Alkaline Phosphatase Troponin T Albumin LDL Cholesterol Direct 03/10/19 04:52 WBC RBC Hgb Hct MCV MCH RDW Plt Count [place] % (Auto) Lymph # Monocytes % (Manual) Seg Neutrophils # Man Lymphocytes # (Manual) PT INR APTT Sodium Creatinine 4.0 H POC Glucose Alkaline Phosphatase Troponin T Albumin LDL Cholesterol Direct CT scan - chest: report reviewed, image reviewed
[2019-03-10] MEDS: INSULIN LISPRO 100 UNIT/ML SUB-Q SCH ×4 (08:40→21:29)
[2019-03-10] MEDS: hydrALAZINE 25 MG TAB PO SCH ×3 (09:55→21:31)
[2019-03-10] MEDS: FAMOTIDINE 10 MG TAB PO SCH ×2 (09:55→21:30)
[2019-03-10] MEDS: carvediloL 25 MG TAB PO SCH ×2 (09:55→21:29)
[2019-03-10] MEDS: amLODIPine 10 MG TAB PO SCH (09:55)
[2019-03-10] MEDS: LOSARTAN 50 MG TAB PO SCH ×2 (09:56→10:13)
--- NOTE | 2019-03-10 10:43 | Consultation ---
History of Present Illness Consult date: 03/10/19 Consult reason: congestive heart failure, shortness of breath History of present illness: 72 year old -[place] male with a history of congestive heart failure recurrent pleural effusion atrial fib,and end-stage renal disease presenting with shortness of breath and chest pain at the time of my evaluation patient denies any chest pain or shortness of breath. Past History Past Medical History: atrial fib, CAD, dialysis, ESRD, heart failure, hypertension Past Surgical History: Other (Left arm amputation, HD cath insertion) Social history: no significant social history Family history: no significant family history Medications and Allergies Allergies Allergy/AdvReac Type Severity Reaction Status Date / Time aspirin Allergy Unknown Verified 02/20/19 22:06 pork derived (porcine) Allergy Rash Verified 02/20/19 22:06 venom-honey bee Allergy Anaphylaxis Verified 02/20/19 22:06 [bee venom (honey bee)] Pork/Porcine Containing AdvReac Severe Nausea,VOMI Verified 02/20/19 22:06 Products TING Home Medications Medication Instructions Recorded Confirmed Last Taken Type AtorvaSTATin [Lipitor] 40 mg PO QHS #30 tablet 12/29/18 03/07/19 01/01/19 Rx Famotidine [Pepcid] 10 mg PO BID #15 tablet 12/29/18 03/07/19 01/01/19 Rx amLODIPine [Norvasc] 10 mg PO DAILY #30 tablet 12/29/18 03/07/19 01/01/19 Rx hydrALAZINE [Apresoline TAB] 50 mg PO BID #60 tablet 12/29/18 03/07/19 01/01/19 Rx Carvedilol [Coreg] 25 mg PO BID #60 tablet 01/17/19 03/07/19 Unknown Rx Oxycodone HCl [oxyCODONE] 10 mg PO Q6H PRN #10 tablet 01/23/19 03/07/19 Unknown Rx diphenhydrAMINE [Benadryl CAP] 50 mg PO Q3D PRN 01/30/19 03/07/19 Unknown History Apixaban [Eliquis] 2.5 mg PO Q12HR tablet 02/02/19 03/07/19 Unknown Rx Epoetin Prashant 10,000 Unit [Procrit] 10,000 unit SUB-Q KATERYNA PRN vial 02/02/19 03/07/19 Unknown Rx Lisinopril [Zestril TAB] 5 mg PO QDAY #30 tablet 02/02/19 03/07/19 Unknown Rx HYDROcodone/APAP 5-325 [[place] 1 each PO Q6HR PRN #12 tablet 02/21/19 03/07/19 Unknown Rx 5/325] Ondansetron [Zofran Odt] 4 mg PO Q8HR PRN #14 tab.rapdis 02/28/19 03/07/19 Unknown Rx traMADol [Ultram 50 MG tab] 50 mg PO Q4HR PRN #14 tablet 02/28/19 03/07/19 Unknown Rx Active Meds: Active Medications Acetaminophen (Tylenol) 650 mg PO Q4H PRN PRN Reason: Pain MILD(1-3)/Fever >100.5/DOUGLAS Last Admin: 03/09/19 23:24 Dose: 650 mg Documented by: Acetaminophen/Hydrocodone Bitart ([place] 5/325) 1 each PO Q6H PRN PRN Reason: Pain, Moderate (4-6) Last Admin: 03/09/19 15:18 Dose: 1 each Documented by: Amlodipine Besylate (Norvasc) 10 mg PO DAILY [facility] Last Admin: 03/10/19 09:55 Dose: 10 mg Documented by: Atorvastatin Calcium (Lipitor) 40 mg PO QHS [facility] Last Admin: 03/09/19 21:23 Dose: 40 mg Documented by: Carvedilol (Coreg) 25 mg PO BID [facility] Last Admin: 03/10/19 09:55 Dose: 25 mg Documented by: Dextrose (D50w (25gm) Syringe) 50 ml IV PRN PRN PRN Reason: Hypoglycemia Diphenhydramine HCl (Benadryl) 25 mg IV Q6H PRN PRN Reason: Itching Last Admin: 03/10/19 06:29 Dose: 25 mg Documented by: Enoxaparin Sodium (Lovenox) 60 mg SUB-Q 0600,1800 [facility] Last Admin: 03/10/19 05:35 Dose: 60 mg Documented by: Epoetin Prashant (Procrit) 10,000 unit SUB-Q KATERYNA PRN PRN Reason: hemodialysis Famotidine (Pepcid) 10 mg PO BID [facility] Last Admin: 03/10/19 09:55 Dose: 10 mg Documented by: Hydralazine HCl (Apresoline) 10 mg IV Q4H PRN PRN Reason: Hypertension Last Admin: 03/09/19 15:20 Dose: 10 mg Documented by: Hydralazine HCl (Apresoline) 50 mg PO BID [facility] Last Admin: 03/09/19 21:23 Dose: 50 mg Documented by: Sodium Chloride (Nacl 0.9%) 100 mls @ 999 mls/hr IV KATERYNA PRN PRN Reason: Hypotension Insulin Human Lispro (Humalog) 0 unit SUB-Q ACHS [facility]; Protocol Last Admin: 03/10/19 08:40 Dose: Not Given Documented by: Losartan Potassium (Cozaar) 100 mg PO QDAY [facility] Last Admin: 03/10/19 10:13 Dose: Not Given Documented by: Morphine Sulfate (Morphine) 4 mg IV Q4H PRN PRN Reason: Pain , Severe (7-10) Last Admin: 03/10/19 05:35 Dose: 4 mg Documented by: Ondansetron HCl (Zofran) 4 mg IV Q8H PRN PRN Reason: Nausea And Vomiting Last Admin: 03/09/19 17:39 Dose: 4 mg Documented by: Oxycodone HCl (Roxicodone) 10 mg PO Q6H PRN PRN Reason: Pain , Severe (7-10) Sodium Chloride (Sodium Chloride Flush Syringe 10 Ml) 10 ml IV BID [facility] Last Admin: 03/10/19 10:09 Dose: 10 ml Documented by: Sodium Chloride (Sodium Chloride Flush Syringe 10 Ml) 10 ml IV PRN PRN PRN Reason: LINE FLUSH Tramadol HCl (Ultram) 50 mg PO Q4H PRN PRN Reason: Pain Review of Systems Constitutional: weight loss, weakness, no weight gain Ears, nose, mouth and throat: no deferred, no ear pain, no ear discharge, no tinnitis Cardiovascular: shortness of breath, dyspnea on exertion, no chest pain, no edema, no syncope Respiratory: shortness of breath, dyspnea on exertion, no cough, no cough with sputum Gastrointestinal: no abdominal pain, no nausea, no vomiting, no diarrhea, no melena, no hematochezia Genitourinary Male: no dysuria, no hematuria, no flank pain Rectal: no pain, no incontinence, no bleeding Musculoskeletal: no neck stiffness, no neck pain, no arm numbness/tingling Integumentary: no deferred, no rash, no pruritis Neurological: no head injury, no transient paralysis, no paralysis, no weakness, no parathesias, no seizures Psychiatric: no anxiety, no change in sleep habits Physical Examination Vital Signs Pulse Resp Pulse Ox 86 20 100 03/07/19 20:28 03/07/19 20:28 03/07/19 20:28 General appearance: no acute distress HEENT: Positive: PERRL, Normocephaly, Mucus Membranes Moist Neck: Positive: neck supple, trachea midline. Negative: JVD/HJR Cardiac: Positive: Regular Rate, irregularly irregular, S1/S2, PMI, Laterally Displaced Lungs: Positive: clear to auscultation, No Wheeze, Rales, Rhonchi Neuro: Positive: Grossly Intact, No Lateralizing Findings Abdomen: Positive: Unremarkable Male genitourinary: Positive: deferred Extremities: Absent: edema Results 03/10/19 04:52 03/10/19 04:52 Coagulation 03/09/19 Range/Units 10:10 PT 16.5 H (12.2-14.9) Sec. INR 1.37 H (0.87-1.13) APTT 37.7 H (24.2-36.6) Sec. CBC 03/10/19 Range/Units 04:52 WBC 2.5 L (4.5-11.0) K/mm3 RBC 3.31 L (3.65-5.03) M/mm3 Hgb 10.7 L (11.8-15.2) gm/dl Hct 32.7 L D (35.5-45.6) % Plt Count 74 L (140-440) K/mm3 Comprehensive Metabolic Panel 03/10/19 Range/Units 04:52 Sodium 137 (137-145) mmol/L Potassium 3.8 (3.6-5.0) mmol/L Chloride 98.2 (98-107) mmol/L Carbon Dioxide 25 (22-30) mmol/L BUN 15 (9-20) mg/dL Creatinine 4.0 H (0.8-1.5) mg/dL Glucose 89 (75-100) mg/dL Calcium 8.9 (8.4-10.2) mg/dL Assessment and Plan 1. Atypical chest pain 2. Dilated nonischemic cardiomyopathy 3. Chronic atrial fibrillation 4. ESRD 5. Recurrent left plural effusion 6. Peripheral vascular disease 7. Essential hypertension Plan. Patient is currently stable. May require therapeutic thoracocentesis. Echocardiogram will be done to assess global and regional function.
--- NOTE | 2019-03-10 11:31 | Progress Note ---
Assessment and Plan 1. ESRD: Continue hemodialysis three times a week, TTS schedule. s/p HD yesterday. 2. FEN: Monitor. 3. Chest pain / sob: Associated with chronic L sided pleural effusion. Followed by Pulmonary. Pleurx catheter placement per IR tomorrow. 4. A.fib: Rate controlled. On Lovenox. 5. HTN. 6. Anemia: Epogen if needed. 7. PAD. Subjective Date of service: 03/10/19 Principal diagnosis: ESRd Afib L pleural effusion Interval history: Patient was seen and examined at the bedside. C/o L sided rib pain. Objective - Vital Signs Vital signs: Vital Signs - 12hr 03/10/19 03/10/19 03/10/19 04:23 04:25 08:22 Temperature 98.4 F 97.9 F Pulse Rate 59 L 75 Respiratory 18 16 Rate Blood Pressure 112/72 110/71 O2 Sat by Pulse 48 L 95 94 Oximetry 03/10/19 03/10/19 09:55 10:00 Temperature Pulse Rate 75 65 Respiratory Rate Blood Pressure 110/71 O2 Sat by Pulse Oximetry - General Appearance General appearance: well-developed, appears stated age, other (no distress, R IJ tunnel catheter) EENT: ATNC, PERRL, mucous membranes moist, hearing intact, vision intact Neck: supple Respiratory: Present: Clear to Ascultation, Decreased Breath Sounds (L side) Cardiology: irregularly irregular, S1S2, no murmurs Gastrointestinal: normoactive bowel sounds, no tenderness, no distended Integumentary: no rash, warm and dry Neurologic: no focal deficit, no asterixis, alert and oriented x3 Musculoskeletal: other (no edema, L forearm amputation) - Lab 03/10/19 04:52 03/10/19 04:52 Most recent lab results Calcium 8.9 mg/dL (8.4-10.2) 03/10/19 04:52 Medications & Allergies - Medications Allergies/Adverse Reactions: Allergies aspirin Allergy (Verified 02/20/19 22:06) Unknown stomach cramps pork derived (porcine) Allergy (Verified 02/20/19 22:06) Rash venom-honey bee [bee venom (honey bee)] Allergy (Verified 02/20/19 22:06) Anaphylaxis Pork/Porcine Containing Products Adverse Reaction (Severe, Verified 02/20/19 22:06) Nausea,VOMITING Home Medications: Home Medications Medication Instructions Recorded Confirmed Last Taken Type AtorvaSTATin [Lipitor] 40 mg PO QHS #30 tablet 12/29/18 03/07/19 01/01/19 Rx Famotidine [Pepcid] 10 mg PO BID #15 tablet 12/29/18 03/07/19 01/01/19 Rx amLODIPine [Norvasc] 10 mg PO DAILY #30 tablet 12/29/18 03/07/19 01/01/19 Rx hydrALAZINE [Apresoline TAB] 50 mg PO BID #60 tablet 12/29/18 03/07/19 01/01/19 Rx Carvedilol [Coreg] 25 mg PO BID #60 tablet 01/17/19 03/07/19 Unknown Rx Oxycodone HCl [oxyCODONE] 10 mg PO Q6H PRN #10 tablet 01/23/19 03/07/19 Unknown Rx diphenhydrAMINE [Benadryl CAP] 50 mg PO Q3D PRN 01/30/19 03/07/19 Unknown History Apixaban [Eliquis] 2.5 mg PO Q12HR tablet 02/02/19 03/07/19 Unknown Rx Epoetin Prashant 10,000 Unit [Procrit] 10,000 unit SUB-Q KATERYNA PRN vial 02/02/19 03/07/19 Unknown Rx Lisinopril [Zestril TAB] 5 mg PO QDAY #30 tablet 02/02/19 03/07/19 Unknown Rx HYDROcodone/APAP 5-325 [[place] 1 each PO Q6HR PRN #12 tablet 02/21/19 03/07/19 Unknown Rx 5/325] Ondansetron [Zofran Odt] 4 mg PO Q8HR PRN #14 tab.rapdis 02/28/19 03/07/19 Unknown Rx traMADol [Ultram 50 MG tab] 50 mg PO Q4HR PRN #14 tablet 02/28/19 03/07/19 Unknown Rx Active Medications: Generic Name Dose Route Start Last Admin Trade Name Freq PRN Reason Stop Dose Admin Acetaminophen 650 mg 03/07/19 23:22 03/09/19 23:24 Tylenol PO 650 mg Q4H PRN Administration Pain MILD(1-3)/Fever >100.5/DOUGLAS Acetaminophen/Hydrocodone Bitart 1 each 03/09/19 09:15 03/09/19 15:18 [place] 5/325 PO 1 each Q6H PRN Administration Pain, Moderate (4-6) Amlodipine Besylate 10 mg 03/09/19 10:00 03/10/19 09:55 Norvasc PO 10 mg DAILY BEAN Administration Atorvastatin Calcium 40 mg 03/09/19 22:00 03/09/19 21:23 Lipitor PO 40 mg QHS BEAN Administration Carvedilol 25 mg 03/09/19 10:00 03/10/19 09:55 Coreg PO 25 mg BID BEAN Administration Dextrose 50 ml 03/08/19 12:40 D50w (25gm) Syringe IV PRN PRN Hypoglycemia Diphenhydramine HCl 25 mg 03/09/19 11:15 03/10/19 06:29 Benadryl IV 25 mg Q6H PRN Administration Itching Enoxaparin Sodium 60 mg 03/09/19 18:00 03/10/19 05:35 Lovenox SUB-Q 60 mg 0600,1800 [facility] Administration Epoetin Prashant 10,000 unit 03/09/19 09:15 Procrit SUB-Q KATERYNA PRN hemodialysis Famotidine 10 mg 03/09/19 10:00 03/10/19 09:55 Pepcid PO 10 mg BID [facility] Administration Hydralazine HCl 10 mg 03/08/19 02:02 03/09/19 15:20 Apresoline IV 10 mg Q4H PRN Administration Hypertension Hydralazine HCl 50 mg 03/09/19 10:00 03/09/19 21:23 Apresoline PO 50 mg BID [facility] Administration Sodium Chloride 100 mls @ 999 mls/hr 03/09/19 08:52 Nacl 0.9% IV KATERYNA PRN Hypotension Insulin Human Lispro 0 unit 03/08/19 16:30 03/10/19 08:40 Humalog SUB-Q Not Given ACHS [facility] Protocol Losartan Potassium 100 mg 03/09/19 13:00 03/10/19 10:13 Cozaar PO Not Given QDAY [facility] Morphine Sulfate 4 mg 03/08/19 09:33 03/10/19 05:35 Morphine IV 4 mg Q4H PRN Administration Pain , Severe (7-10) Ondansetron HCl 4 mg 03/07/19 23:22 03/09/19 17:39 Zofran IV 4 mg Q8H PRN Administration Nausea And Vomiting Oxycodone HCl 10 mg 03/09/19 10:24 Roxicodone PO Q6H PRN Pain , Severe (7-10) Sodium Chloride 10 ml 03/08/19 10:00 03/10/19 10:09 Sodium Chloride Flush Syringe 10 Ml IV 10 ml BID BEAN Administration Sodium Chloride 10 ml 03/07/19 23:22 Sodium Chloride Flush Syringe 10 Ml IV PRN PRN LINE FLUSH Tramadol HCl 50 mg 03/09/19 09:15 Ultram PO Q4H PRN Pain
--- NOTE | 2019-03-10 12:13 | Event Note ---
Date: 03/10/19 plan for pleurx catheter placement tomorrow NPO p MN
--- NOTE | 2019-03-10 14:35 | Progress Note ---
Assessment and Plan A/p End-stage renal disease---Getting Dialysis Recurrent left lung effusion which is transudate Hypertensive urgency--Bp still high Chronic atrial fibrillation Plan Continue dialysis per nephrology Discussed with digital solution architect, as the effusion is transudative and recurring, have offered Pleurx catheter to the patient, he is agreeable to wait, IR consulted for placement of Pleurx catheter---Patient is getting pleurx cath on Monday Optimize blood pressure medications--Added Losartan Continue Coreg, Eliquis on hold as patient is planned for Pleurx catheter placement. Heparin drip for now. DVT prophylaxis chemical Subjective Date of service: 03/10/19 Principal diagnosis: ESRd Afib L pleural effusion Interval history: 72-year-old man with history of end-stage renal disease and recurrent left lung effusion. States that he has been having thoracentesis every other week. He developed chest pain or shortness of breath prompting him to come to the ER. Symptomatically better Waiting for Pleurx cath insertion on Monday Objective - Constitutional Vitals: Vital Signs - 12hr 03/10/19 03/10/19 03/10/19 04:23 04:25 08:22 Temperature 98.4 F 97.9 F Pulse Rate 59 L 75 Respiratory 18 16 Rate Blood Pressure 112/72 110/71 O2 Sat by Pulse 48 L 95 94 Oximetry 03/10/19 03/10/19 03/10/19 09:55 10:00 10:07 Temperature Pulse Rate 75 65 Respiratory Rate Blood Pressure 110/71 93/71 O2 Sat by Pulse Oximetry 03/10/19 11:46 Temperature 97.6 F Pulse Rate 74 Respiratory 20 Rate Blood Pressure 122/85 O2 Sat by Pulse 100 Oximetry General appearance: Present: no acute distress, well-nourished - EENT Eyes: PERRL, EOM intact ENT: hearing intact, clear oral mucosa Ears: bilateral: normal - Neck Neck: supple, normal ROM - Respiratory Respiratory effort: normal Respiratory: bilateral: CTA - Breasts Breasts: normal - Cardiovascular Rhythm: regular Heart Sounds: Present: S1 & S2. Absent: gallop, rub Extremities: pulses intact, No edema, normal color, Full ROM - Gastrointestinal General gastrointestinal: Present: soft, non-tender, non-distended, normal bowel sounds - Genitourinary Male genitourinary: normal - Integumentary Integumentary: clear, warm, dry - Musculoskeletal Musculoskeletal: 1, strength equal bilaterally - Neurologic Neurologic: moves all extremities - Psychiatric Psychiatric: memory intact, appropriate mood/affect, intact judgment & insight - Labs CBC & Chem 7: 03/10/19 04:52 03/10/19 04:52 Labs: Abnormal lab results 03/10/19 03/10/19 Range/Units 04:52 04:52 WBC 2.5 L (4.5-11.0) K/mm3 RBC 3.31 L (3.65-5.03) M/mm3 Hgb 10.7 L (11.8-15.2) gm/dl Hct 32.7 L D (35.5-45.6) % MCV 99 H (84-94) fl RDW 15.8 H (13.2-15.2) % Plt Count 74 L (140-440) K/mm3 Monocytes % (Manual) 14.0 H (0.0-7.3) % Seg Neutrophils # Man 1.5 L (1.8-7.7) K/mm3 Lymphocytes # (Manual) 0.6 L (1.2-5.4) K/mm3 Creatinine 4.0 H (0.8-1.5) mg/dL
[2019-03-11] MEDS: MORPHINE 4 MG/1 ML INJ IV PRN ×4 (01:36→18:00)
[2019-03-11] MEDS: ENOXAPARIN 60 MG/0.6 ML INJ SUB-Q SCH (05:01)
[2019-03-11] MEDS: diphenhydrAMINE 50 MG/ML VIAL IV PRN ×2 (05:40→11:52)
[2019-03-11] MEDS ORDERED: REGADENOSON 0.4 MG/5 ML INJ IV ONE ×2 (06:45→06:50)
[2019-03-11 06:58] LABS: Hematocrit 31.9 % (35.5-45.6); Hemoglobin 10.5 gm/dl (11.8-15.2)
[2019-03-11] MEDS: INSULIN LISPRO 100 UNIT/ML SUB-Q SCH ×4 (08:08→22:31)
--- NOTE | 2019-03-11 08:42 | Progress Note ---
Assessment and Plan 1. ESRD: Continue hemodialysis three times a week, TTS schedule. S/p HD 2 days ago. 2. FEN: Monitor. 3. L sided pleural effusion: Followed by Pulmonary. Pleurx catheter placement tomorrow per IR. 4. A.fib: Rate controlled. Was on Lovenox. 5. HTN. 6. Anemia: Epogen if needed. 7. PAD. Subjective Date of service: 03/11/19 Principal diagnosis: ESRd Afib L pleural effusion Interval history: Patient was seen and examined at the bedside. No new complaint. Objective - Vital Signs Vital signs: Vital Signs - 12hr 03/10/19 03/10/19 03/11/19 21:29 23:05 03:38 Temperature 98.1 F 97.6 F Pulse Rate 75 84 66 Respiratory 18 18 Rate Blood Pressure 118/82 133/92 128/89 O2 Sat by Pulse 100 99 Oximetry 03/11/19 07:59 Temperature 97.9 F Pulse Rate 75 Respiratory 19 Rate Blood Pressure 130/90 O2 Sat by Pulse 100 Oximetry - General Appearance General appearance: well-developed, appears stated age, other (no distress, R IJ tunnel catheter) EENT: ATNC, PERRL, mucous membranes moist, hearing intact, vision intact Neck: supple Respiratory: Present: Clear to Ascultation, Decreased Breath Sounds (L side) Cardiology: irregularly irregular, S1S2, no murmurs Gastrointestinal: normoactive bowel sounds, no tenderness, no distended Integumentary: no rash Neurologic: no focal deficit, no asterixis, alert and oriented x3 Musculoskeletal: other (no edema, L forearm amputation) - Lab 03/11/19 06:10 03/10/19 04:52 Most recent lab results Calcium 8.9 mg/dL (8.4-10.2) 03/10/19 04:52 Medications & Allergies - Medications Allergies/Adverse Reactions: Allergies aspirin Allergy (Verified 02/20/19 22:06) Unknown stomach cramps pork derived (porcine) Allergy (Verified 02/20/19 22:06) Rash venom-honey bee [bee venom (honey bee)] Allergy (Verified 02/20/19 22:06) Anaphylaxis Pork/Porcine Containing Products Adverse Reaction (Severe, Verified 02/20/19 22:06) Nausea,VOMITING Home Medications: Home Medications Medication Instructions Recorded Confirmed Last Taken Type AtorvaSTATin [Lipitor] 40 mg PO QHS #30 tablet 12/29/18 03/07/19 01/01/19 Rx Famotidine [Pepcid] 10 mg PO BID #15 tablet 12/29/18 03/07/19 01/01/19 Rx amLODIPine [Norvasc] 10 mg PO DAILY #30 tablet 12/29/18 03/07/19 01/01/19 Rx hydrALAZINE [Apresoline TAB] 50 mg PO BID #60 tablet 12/29/18 03/07/19 01/01/19 Rx Carvedilol [Coreg] 25 mg PO BID #60 tablet 01/17/19 03/07/19 Unknown Rx Oxycodone HCl [oxyCODONE] 10 mg PO Q6H PRN #10 tablet 01/23/19 03/07/19 Unknown Rx diphenhydrAMINE [Benadryl CAP] 50 mg PO Q3D PRN 01/30/19 03/07/19 Unknown History Apixaban [Eliquis] 2.5 mg PO Q12HR tablet 02/02/19 03/07/19 Unknown Rx Epoetin Prashant 10,000 Unit [Procrit] 10,000 unit SUB-Q KATERYNA PRN vial 02/02/19 03/07/19 Unknown Rx Lisinopril [Zestril TAB] 5 mg PO QDAY #30 tablet 02/02/19 03/07/19 Unknown Rx HYDROcodone/APAP 5-325 [[place] 1 each PO Q6HR PRN #12 tablet 02/21/19 03/07/19 Unknown Rx 5/325] Ondansetron [Zofran Odt] 4 mg PO Q8HR PRN #14 tab.rapdis 02/28/19 03/07/19 Unknown Rx traMADol [Ultram 50 MG tab] 50 mg PO Q4HR PRN #14 tablet 02/28/19 03/07/19 Unknown Rx Active Medications: Generic Name Dose Route Start Last Admin Trade Name Freq PRN Reason Stop Dose Admin Acetaminophen 650 mg 03/07/19 23:22 03/09/19 23:24 Tylenol PO 650 mg Q4H PRN Administration Pain MILD(1-3)/Fever >100.5/DOUGLAS Acetaminophen/Hydrocodone Bitart 1 each 03/09/19 09:15 03/09/19 15:18 [place] 5/325 PO 1 each Q6H PRN Administration Pain, Moderate (4-6) Amlodipine Besylate 10 mg 03/09/19 10:00 03/10/19 09:55 Norvasc PO 10 mg DAILY BEAN Administration Atorvastatin Calcium 40 mg 03/09/19 22:00 03/10/19 21:30 Lipitor PO 40 mg QHS BEAN Administration Carvedilol 25 mg 03/09/19 10:00 03/10/19 21:29 Coreg PO 25 mg BID BEAN Administration Dextrose 50 ml 03/08/19 12:40 D50w (25gm) Syringe IV PRN PRN Hypoglycemia Diphenhydramine HCl 25 mg 03/09/19 11:15 03/11/19 05:40 Benadryl IV 25 mg Q6H PRN Administration Itching Enoxaparin Sodium 60 mg 03/09/19 18:00 03/11/19 05:01 Lovenox SUB-Q Not Given 0600,1800 [facility] Epoetin Prashant 10,000 unit 03/09/19 09:15 Procrit SUB-Q KATERYNA PRN hemodialysis Famotidine 10 mg 03/09/19 10:00 03/10/19 21:30 Pepcid PO 10 mg BID [facility] Administration Hydralazine HCl 10 mg 03/08/19 02:02 03/09/19 15:20 Apresoline IV 10 mg Q4H PRN Administration Hypertension Hydralazine HCl 50 mg 03/09/19 10:00 03/10/19 21:31 Apresoline PO 50 mg BID [facility] Administration Sodium Chloride 100 mls @ 999 mls/hr 03/09/19 08:52 Nacl 0.9% IV KATERYNA PRN Hypotension Insulin Human Lispro 0 unit 03/08/19 16:30 03/11/19 08:08 Humalog SUB-Q Not Given ACHS [facility] Protocol Losartan Potassium 100 mg 03/09/19 13:00 03/10/19 10:13 Cozaar PO Not Given QDAY [facility] Morphine Sulfate 4 mg 03/08/19 09:33 03/11/19 05:41 Morphine IV 4 mg Q4H PRN Administration Pain , Severe (7-10) Ondansetron HCl 4 mg 03/07/19 23:22 03/09/19 17:39 Zofran IV 4 mg Q8H PRN Administration Nausea And Vomiting Oxycodone HCl 10 mg 03/09/19 10:24 Roxicodone PO Q6H PRN Pain , Severe (7-10) Sodium Chloride 10 ml 03/08/19 10:00 03/10/19 21:30 Sodium Chloride Flush Syringe 10 Ml IV 10 ml BID BEAN Administration Sodium Chloride 10 ml 03/07/19 23:22 Sodium Chloride Flush Syringe 10 Ml IV PRN PRN LINE FLUSH Tramadol HCl 50 mg 03/09/19 09:15 Ultram PO Q4H PRN Pain
--- NOTE | 2019-03-11 09:57 | Progress Note ---
Assessment and Plan Recurrent Left pleural effusion Atypical chest pain no ischemia by MPI 01/2019 End-stage renal disease on hemodialysis Chronic atrial fibrillation on low dose eliquis therapy as an outpatient Dilated nonischemic cardiomyopathy ejection fraction 25-30% by echocardiogram 01/2019 DM type II PVD s/p left arm amputation Hypertension Thrombocytopenia, chronic Non-obstructive CAD [facility] 01/2017 revealed non-obstructive, single vessel disease of the proximal LAD recommended for medical therapy. Recommendations: Continue medical therapy for nonischemic cardiomyopathy, chronic systolic heart failure and non-obstructive CAD. Subjective Date of service: 03/11/19 Principal diagnosis: ESRd Afib L pleural effusion Interval history: Patient is resting in bed comfortably. For plan for pleurx catheter placement. Afib with a well controlled ventricular rate on telemetry. Objective Vital Signs Temp Pulse Resp BP Pulse Ox 03/11/19 07:59 97.9 F 75 19 130/90 100 03/11/19 03:38 97.6 F 66 18 128/89 99 03/10/19 23:05 98.1 F 84 18 133/92 100 03/10/19 21:29 75 118/82 03/10/19 19:27 97.5 F L 75 16 118/82 94 03/10/19 17:01 97.4 F L 64 16 124/82 100 03/10/19 15:16 109/73 03/10/19 12:56 97.6 F 74 16 111/87 100 03/10/19 11:46 97.6 F 74 20 122/85 100 03/10/19 10:07 93/71 03/10/19 10:00 65 03/10/19 09:55 75 110/71 - Physical Examination General: No Apparent Distress HEENT: Positive: PERRL Neck: Positive: trachea midline Cardiac: Positive: irregularly irregular Lungs: Positive: Decreased Breath Sounds Neuro: Positive: Grossly Intact Extremities: Absent: edema - Labs and Meds CBC 03/11/19 Range/Units 06:10 Hgb 10.5 L (11.8-15.2) gm/dl Hct 31.9 L (35.5-45.6) % Plt Count 67 L (140-440) K/mm3
[2019-03-11] MEDS ORDERED: SODIUM CHLORIDE 0.9% 500 ML 500 ML IV NR (10:47)
--- NOTE | 2019-03-11 10:50 | Event Note ---
Date: 03/11/19 Platelets continue to decrease. Plan for platelet transfusion and resume diet. Plan for pleural catheter placement tomorrow after transfusion.
[2019-03-11] MEDS: FAMOTIDINE 10 MG TAB PO SCH ×2 (11:38→21:57)
[2019-03-11] MEDS: LOSARTAN 50 MG TAB PO SCH (11:38)
[2019-03-11] MEDS: carvediloL 25 MG TAB PO SCH ×2 (11:39→21:56)
[2019-03-11] MEDS: hydrALAZINE 25 MG TAB PO SCH ×2 (11:39→21:57)
[2019-03-11] MEDS: amLODIPine 10 MG TAB PO SCH (11:39)
--- NOTE | 2019-03-11 11:49 | Progress Note ---
Assessment and Plan 72 y/o with recurrent left sided pleural effusion. 1. Patient has agreed to Pleurx 2. Platelet transfusion 3. HD per renal, they are not able to pull more fluid 4. Will continue to follow with you. Subjective Date of service: 03/11/19 Principal diagnosis: ESRd Afib L pleural effusion Interval history: No acute events. Per patient feels lowsy. No family at bedside. Per patient, his said that she could manage the pleurx. Objective Vital Signs - 12hr 03/11/19 03/11/19 03/11/19 03:38 07:59 11:38 Temperature 97.6 F 97.9 F Pulse Rate 66 75 76 Respiratory 18 19 Rate Blood Pressure 128/89 130/90 122/91 O2 Sat by Pulse 99 100 Oximetry 03/11/19 11:39 Temperature Pulse Rate 76 Respiratory Rate Blood Pressure 122/91 O2 Sat by Pulse Oximetry Constitutional: no acute distress, alert Eyes: non-icteric ENT: oropharynx moist Neck: supple Effort: normal Ascultation: Left: diminished breath sounds Percussion: Left: dull Tactile fremitus: Right: normal Cardiovascular: regular rate and rhythm Gastrointestinal: normoactive bowel sounds, soft Extremities: no cyanosis Neurologic: normal mental status Psychiatric: mood appropriate CBC and BMP: 03/11/19 06:10 03/10/19 04:52 ABG, PT/INR, D-dimer: PT/INR, D-dimer PT 16.5 Sec. (12.2-14.9) H 03/09/19 10:10 INR 1.37 (0.87-1.13) H 03/09/19 10:10 Abnormal lab findings: Abnormal Labs 03/07/19 03/07/19 03/07/19 21:30 21:30 21:30 WBC 3.0 L RBC 3.54 L Hgb 11.5 L Hct 35.1 L MCV 99 H MCH 33 H RDW 15.6 H Plt Count 67 L [place] % (Auto) 9.7 H Lymph # 0.7 L Monocytes % (Manual) Seg Neutrophils # Man Lymphocytes # (Manual) PT INR APTT Sodium 136 L Creatinine 3.6 H POC Glucose Alkaline Phosphatase 135 H Troponin T 0.270 H* Albumin 3.3 L LDL Cholesterol Direct 28 L 03/07/19 03/08/19 03/08/19 22:59 03:28 21:46 WBC RBC Hgb Hct MCV MCH RDW Plt Count [place] % (Auto) Lymph # Monocytes % (Manual) Seg Neutrophils # Man Lymphocytes # (Manual) PT INR APTT Sodium Creatinine POC Glucose 118 H Alkaline Phosphatase Troponin T 0.294 H* 0.266 H* Albumin LDL Cholesterol Direct 03/09/19 03/09/19 03/10/19 10:10 10:10 04:52 WBC 2.5 L RBC 3.31 L Hgb 10.7 L Hct 32.7 L D MCV 99 H MCH RDW 15.8 H Plt Count 79 L 74 L [place] % (Auto) Lymph # Monocytes % (Manual) 14.0 H Seg Neutrophils # Man 1.5 L Lymphocytes # (Manual) 0.6 L PT 16.5 H INR 1.37 H APTT 37.7 H Sodium Creatinine POC Glucose Alkaline Phosphatase Troponin T Albumin LDL Cholesterol Direct 03/10/19 03/11/19 04:52 06:10 WBC RBC Hgb 10.5 L Hct 31.9 L MCV MCH RDW Plt Count 67 L [place] % (Auto) Lymph # Monocytes % (Manual) Seg Neutrophils # Man Lymphocytes # (Manual) PT INR APTT Sodium Creatinine 4.0 H POC Glucose Alkaline Phosphatase Troponin T Albumin LDL Cholesterol Direct
--- NOTE | 2019-03-11 19:02 | Progress Note ---
Assessment and Plan A/p End-stage renal disease---Getting Dialysis Recurrent left lung effusion which is transudate Hypertensive urgency--Bp still high Chronic atrial fibrillation Plan Continue dialysis per nephrology Discussed with chief deputy coroner, as the effusion is transudative and recurring, have offered Pleurx catheter to the patient, he is agreeable to wait, IR consulted for placement of Pleurx catheter---Patient is getting pleurx cath today Optimize blood pressure medications--Added Losartan Continue Coreg, Eliquis on hold as patient is planned for Pleurx catheter placement. Heparin drip for now. DVT prophylaxis chemical Subjective Date of service: 03/11/19 Principal diagnosis: ESRd Afib L pleural effusion Interval history: 72-year-old man with history of end-stage renal disease and recurrent left lung effusion. States that he has been having thoracentesis every other week. He developed chest pain or shortness of breath prompting him to come to the ER. Symptomatically better Waiting for Pleurx cath insertion on Monday Objective - Constitutional Vitals: Vital Signs - 12hr 03/11/19 03/11/19 03/11/19 07:59 10:00 11:34 Temperature 97.9 F Pulse Rate 75 84 Pulse Rate [ 76 Apical] Pulse Rate [ 76 Left Dorsalis Pedis] Pulse Rate [ 76 Left Posterior Tibial] Pulse Rate [ 76 Right Dorsalis Pedis] Pulse Rate [ 76 Right Posterior Tibial] Pulse Rate [ 76 Right Radial] Respiratory 19 Rate Blood Pressure 130/90 122/91 O2 Sat by Pulse 100 Oximetry 03/11/19 03/11/19 03/11/19 11:38 11:39 12:00 Temperature Pulse Rate 76 76 83 Pulse Rate [ Apical] Pulse Rate [ Left Dorsalis Pedis] Pulse Rate [ Left Posterior Tibial] Pulse Rate [ Right Dorsalis Pedis] Pulse Rate [ Right Posterior Tibial] Pulse Rate [ Right Radial] Respiratory Rate Blood Pressure 122/91 122/91 O2 Sat by Pulse Oximetry 03/11/19 16:09 Temperature 98.2 F Pulse Rate 71 Pulse Rate [ Apical] Pulse Rate [ Left Dorsalis Pedis] Pulse Rate [ Left Posterior Tibial] Pulse Rate [ Right Dorsalis Pedis] Pulse Rate [ Right Posterior Tibial] Pulse Rate [ Right Radial] Respiratory 18 Rate Blood Pressure 130/92 O2 Sat by Pulse 100 Oximetry General appearance: Present: no acute distress, well-nourished - EENT Eyes: PERRL, EOM intact ENT: hearing intact, clear oral mucosa Ears: bilateral: normal - Neck Neck: supple, normal ROM - Respiratory Respiratory effort: normal Respiratory: bilateral: CTA - Breasts Breasts: normal - Cardiovascular Rhythm: regular Heart Sounds: Present: S1 & S2. Absent: gallop, rub Extremities: pulses intact, No edema, normal color, Full ROM - Gastrointestinal General gastrointestinal: Present: soft, non-tender, non-distended, normal bowel sounds - Genitourinary Male genitourinary: normal - Integumentary Integumentary: clear, warm, dry - Musculoskeletal Musculoskeletal: 1, strength equal bilaterally - Neurologic Neurologic: moves all extremities - Psychiatric Psychiatric: memory intact, appropriate mood/affect, intact judgment & insight - Labs CBC & Chem 7: 03/12/19 05:26 03/10/19 04:52 Labs: Abnormal lab results 03/11/19 Range/Units 06:10 Hgb 10.5 L (11.8-15.2) gm/dl Hct 31.9 L (35.5-45.6) % Plt Count 67 L (140-440) K/mm3
[2019-03-11] MEDS ORDERED: ENOXAPARIN 60 MG/0.6 ML INJ SUB-Q SCH (22:00)
[2019-03-12] MEDS: HYDROcodone/ACETAMINOPHEN 5-325 MG TAB PO PRN (01:06)
[2019-03-12] MEDS ORDERED: SODIUM CHLORIDE 0.9% 500 ML 500 ML ONE (02:59)
[2019-03-12] MEDS: MORPHINE 4 MG/1 ML INJ IV PRN ×3 (02:59→21:56)
[2019-03-12 05:59] LABS: Basophils % (Auto) 0.9 % (0.0-1.8); Eosinophils # (Auto) 0.1 K/mm3 (0.0-0.4); Eosinophils % (Auto) 2.4 % (0.0-4.3); Hematocrit 32.9 % (35.5-45.6); Hemoglobin 10.7 gm/dl (11.8-15.2); Lymphocytes # (Auto) 0.6 K/mm3 (1.2-5.4); Lymphocytes % (Auto) 22.7 % (13.4-35.0); Mean Corpuscular HGB Conc 33 % (32-34); Mean Corpuscular Volume 100 fl (84-94); Monocytes # (Auto) 0.2 K/mm3 (0.0-0.8); Monocytes % (Auto) 8.3 % (0.0-7.3); Red Blood Count 3.29 M/mm3 (3.65-5.03); Red Cell Distribution Width 15.8 % (13.2-15.2)
[2019-03-12 06:03] LABS: Platelet Count 74 K/mm3 (140-440)
--- NOTE | 2019-03-12 06:17 | Event Note ---
Date: 03/11/19 Platelets continue to decrease. Plan for platelet transfusion and resume diet. Plan for pleural catheter placement tomorrow after transfusion. Pleurx cath for tomorrow after platelet transfusion Discharge on or after pleurx cath insertion
--- NOTE | 2019-03-12 08:18 | Progress Note ---
Assessment and Plan Assessment and plan: Patient is a 71 yo chronic disable man with a plethora of severe co-morbidities including recurrent left sided pleural effusion s/p thoracentesis almost every 2 weeks, ESRD on HD, Afib on Eliquis, Systolic heart failure with NICMP (most recent left ventricular function assessment showing an ejection fraction of 25- 30%.), DVT, PTSD, AOCD, Right upper extermity chronic ulcer, C. Diffe and hypertension who presented with chest pains and SOB. Patient has many ED visits with multiple admissions since 01/21/19. In December 2018, he had 5 ED visits. In January 2019 he had 6 ED visits. So far in February 2019, he has 3 ED visits. Multiple ED visits for falling out the bed, and one visit for falling out the wh eelchair, one ED visit for Chest pains. Currently admitted for Recurrent pleural effusion. Recurrent Left pleural effusion: s/p thoracentesis, I have asked Dr. Nicole to look out for the cytology Chronic thrombocytopenia since 2014 in our EMR s/p plt: monitor cbc closely Anemia of chronic renal disease: monitor cbc closely, EPO with HD ESRD on Hemodialysis: Nephrology following Afib on Eliquis: hold Eliquis for thoracentesis, Chest pains with chronic elevated troponin: Cardiology is following Hypertension urgency: low salt diet, iv hydralazine prn History of Clostriodioides difficile colitis infection s/p oral Vancomycin 125 mg po QID x 10 days Pleurx cath today History Interval history: Patient was seen and examined. Follow-up on current diagnosis of left pleural effusion. No overnight events reported to me. Patient denies any chest pain, s hortness breath, nausea/vomiting or severe headaches. Imaging, nursing note, chart, labs and old chart reviewed. Discussed with patient. Hospitalist Physical - Physical exam Narrative exam: Gen: thin frial, chronic ill appearing, NAD, Awake, Alert, Orientated HEENT: NCAT, EOMI, PERRL, OP Clear Neck: supple, no adenopathy, no thyromegaly, no JVD CVS/Heart: RRR, normal S1S2, pulses present bilaterally Chest/Lungs: diminished left bs, Symmetrical chest expansion, good air entry right GI/Abdomen: soft, NTND, good bowel sounds, no guarding or rebound /Bladder: no suprapubic tenderness, no CVA or paraspinal tenderness Extermity/Skin: no c/c/e, no obvious rash MSK: FROM x 4 Neuro: CN 2-12 grossly intact, no new focal deficits Psych: calm - Constitutional Vitals: Temp Pulse Resp BP Pulse Ox 98.0 F 70 18 130/88 93 03/12/19 08:03 03/12/19 08:03 03/12/19 08:03 03/12/19 08:03 03/12/19 08:03 General appearance: Present: no acute distress, well-nourished Results - Labs CBC & Chem 7: 03/12/19 05:26 03/10/19 04:52 Labs: Laboratory Last Values WBC 2.6 K/mm3 (4.5-11.0) L 03/12/19 05:26 RBC 3.29 M/mm3 (3.65-5.03) L 03/12/19 05:26 Hgb 10.7 gm/dl (11.8-15.2) L 03/12/19 05:26 Hct 32.9 % (35.5-45.6) L 03/12/19 05:26 MCV 100 fl (84-94) H 03/12/19 05:26 MCH 33 pg (28-32) H 03/12/19 05:26 MCHC 33 % (32-34) 03/12/19 05:26 RDW 15.8 % (13.2-15.2) H 03/12/19 05:26 Plt Count 74 K/mm3 (140-440) L 03/12/19 05:26 Lymph % (Auto) 22.7 % (13.4-35.0) 03/12/19 05:26 [place] % (Auto) 8.3 % (0.0-7.3) H 03/12/19 05:26 Eos % (Auto) 2.4 % (0.0-4.3) 03/12/19 05:26 Baso % (Auto) 0.9 % (0.0-1.8) 03/12/19 05:26 Lymph # 0.6 K/mm3 (1.2-5.4) L 03/12/19 05:26 [place] # 0.2 K/mm3 (0.0-0.8) 03/12/19 05:26 Eos # 0.1 K/mm3 (0.0-0.4) 03/12/19 05:26 Baso # 0.0 K/mm3 (0.0-0.1) 03/12/19 05:26 Add Manual Diff Complete 03/10/19 04:52 Total Counted 100 03/10/19 04:52 Seg Neutrophils % 65.7 % (40.0-70.0) 03/12/19 05:26 Seg Neuts % (Manual) 60.0 % (40.0-70.0) 03/10/19 04:52 0 % 03/10/19 04:52 23.0 % (13.4-35.0) 03/10/19 04:52 Reactive Lymphs % (Man) 0 % 03/10/19 04:52 14.0 % (0.0-7.3) H 03/10/19 04:52 2.0 % (0.0-4.3) 03/10/19 04:52 1.0 % (0.0-1.8) 03/10/19 04:52 0 % 03/10/19 04:52 0 % 03/10/19 04:52 0 % 03/10/19 04:52 0 % 03/10/19 04:52 Nucleated RBC % Not Reportable 03/10/19 04:52 Seg Neutrophils # 1.7 K/mm3 (1.8-7.7) L 03/12/19 05:26 Seg Neutrophils # Man 1.5 K/mm3 (1.8-7.7) L 03/10/19 04:52 Band Neutrophils # 0.0 K/mm3 03/10/19 04:52 0.6 K/mm3 (1.2-5.4) L 03/10/19 04:52 Abs React Lymphs (Man) 0.0 K/mm3 03/10/19 04:52 0.4 K/mm3 (0.0-0.8) 03/10/19 04:52 0.1 K/mm3 (0.0-0.4) 03/10/19 04:52 0.0 K/mm3 (0.0-0.1) 03/10/19 04:52 0.0 K/mm3 03/10/19 04:52 0.0 K/mm3 03/10/19 04:52 0.0 K/mm3 03/10/19 04:52 Blast Cells # 0.0 K/mm3 03/10/19 04:52 WBC Morphology Not Reportable 03/10/19 04:52 Hypersegmented Neuts Not Reportable 03/10/19 04:52 Hyposegmented Neuts Not Reportable 03/10/19 04:52 Hypogranular Neuts Not Reportable 03/10/19 04:52 Not Reportable 03/10/19 04:52 Not Reportable 03/10/19 04:52 Not Reportable 03/10/19 04:52 Not Reportable 03/10/19 04:52 Not Reportable 03/10/19 04:52 Not Reportable 03/10/19 04:52 Not Reportable 03/10/19 04:52 Not Reportable 03/10/19 04:52 Plt Clumps, EDTA Not Reportable 03/10/19 04:52 Not Reportable 03/10/19 04:52 Not Reportable 03/10/19 04:52 Not Reportable 03/10/19 04:52 Plt Morphology Comment Not Reportable 03/10/19 04:52 RBC Morphology Normal 03/10/19 04:52 Dimorphic RBCs Not Reportable 03/10/19 04:52 Not Reportable 03/10/19 04:52 Not Reportable 03/10/19 04:52 Not Reportable 03/10/19 04:52 Not Reportable 03/10/19 04:52 Not Reportable 03/10/19 04:52 Not Reportable 03/10/19 04:52 Not Reportable 03/10/19 04:52 Not Reportable 03/10/19 04:52 Not Reportable 03/10/19 04:52 Not Reportable 03/10/19 04:52 Not Reportable 03/10/19 04:52 Not Reportable 03/10/19 04:52 Not Reportable 03/10/19 04:52 Not Reportable 03/10/19 04:52 Not Reportable 03/10/19 04:52 Not Reportable 03/10/19 04:52 Not Reportable 03/10/19 04:52 Not Reportable 03/10/19 04:52 Not Reportable 03/10/19 04:52 Acanthocytes (Spur) Not Reportable 03/10/19 04:52 Rouleaux Not Reportable 03/10/19 04:52 Not Reportable 03/10/19 04:52 Not Reportable 03/10/19 04:52 Not Reportable 03/10/19 04:52 Not Reportable 03/10/19 04:52 Hem Pathologist Commnt No 03/10/19 04:52 PT 16.5 Sec. (12.2-14.9) H 03/09/19 10:10 INR 1.37 (0.87-1.13) H 03/09/19 10:10 APTT 37.7 Sec. (24.2-36.6) H 03/09/19 10:10 Sodium 137 mmol/L (137-145) 03/10/19 04:52 Potassium 3.8 mmol/L (3.6-5.0) 03/10/19 04:52 Chloride 98.2 mmol/L (98-107) 03/10/19 04:52 Carbon Dioxide 25 mmol/L (22-30) 03/10/19 04:52 18 mmol/L 03/10/19 04:52 BUN 15 mg/dL (9-20) 03/10/19 04:52 4.0 mg/dL (0.8-1.5) H 03/10/19 04:52 Estimated GFR 18 ml/min 03/10/19 04:52 4 % 03/10/19 04:52 Glucose 89 mg/dL (75-100) 03/10/19 04:52 POC Glucose 83 (70-105) 03/12/19 08:03 Calcium 8.9 mg/dL (8.4-10.2) 03/10/19 04:52 0.70 mg/dL (0.1-1.2) 03/07/19 21:30 0.2 mg/dL (0-0.2) 03/07/19 21:30 0.5 mg/dL 03/07/19 21:30 AST 28 units/L (5-40) 03/07/19 21:30 ALT 25 units/L (7-56) 03/07/19 21:30 135 units/L (35-129) H 03/07/19 21:30 0.266 ng/mL (0.00-0.029) H* 03/08/19 03:28 6.7 g/dL (6.3-8.2) 03/07/19 21:30 3.3 g/dL (3.9-5) L 03/07/19 21:30 1.0 % 03/07/19 21:30 Triglycerides 51 mg/dL (2-149) 03/07/19 21:30 Cholesterol 73 mg/dL (50-199) 03/07/19 21:30 28 mg/dL (50-130) L 03/07/19 21:30 43 mg/dL (40-59) 03/07/19 21:30 1.69 % 03/07/19 21:30 Blood Type O POSITIVE 03/11/19 11:20 Active Medications - Current Medications Current Medications: Generic Name Dose Route Start Last Admin Trade Name Freq PRN Reason Stop Dose Admin Acetaminophen 650 mg 03/07/19 23:22 03/09/19 23:24 Tylenol PO 650 mg Q4H PRN Administration Pain MILD(1-3)/Fever >100.5/DOUGLAS Acetaminophen/Hydrocodone Bitart 1 each 03/09/19 09:15 03/12/19 01:06 [place] 5/325 PO 1 each Q6H PRN Administration Pain, Moderate (4-6) Amlodipine Besylate 10 mg 03/09/19 10:00 03/11/19 11:39 Norvasc PO 10 mg DAILY BEAN Administration Atorvastatin Calcium 40 mg 03/09/19 22:00 03/11/19 21:57 Lipitor PO 40 mg QHS BEAN Administration Carvedilol 25 mg 03/09/19 10:00 03/11/19 21:56 Coreg PO 25 mg BID BEAN Administration Dextrose 50 ml 03/08/19 12:40 D50w (25gm) Syringe IV PRN PRN Hypoglycemia Diphenhydramine HCl 25 mg 03/09/19 11:15 03/11/19 11:52 Benadryl IV 25 mg Q6H PRN Administration Itching Epoetin Prashant 10,000 unit 03/09/19 09:15 Procrit SUB-Q KATERYNA PRN hemodialysis Famotidine 10 mg 03/09/19 10:00 03/11/19 21:57 Pepcid PO 10 mg BID BEAN Administration Hydralazine HCl 10 mg 03/08/19 02:02 03/09/19 15:20 Apresoline IV 10 mg Q4H PRN Administration Hypertension Hydralazine HCl 50 mg 03/09/19 10:00 03/11/19 21:57 Apresoline PO 50 mg BID BEAN Administration Sodium Chloride 100 mls @ 999 mls/hr 03/09/19 08:52 Nacl 0.9% IV KATERYNA PRN Hypotension Insulin Human Lispro 0 unit 03/08/19 16:30 03/11/19 22:31 Humalog SUB-Q Not Given ACHS [facility] Protocol Losartan Potassium 100 mg 03/09/19 13:00 03/11/19 11:38 Cozaar PO 100 mg QDAY BEAN Administration Morphine Sulfate 4 mg 03/08/19 09:33 03/12/19 02:59 Morphine IV 4 mg Q4H PRN Administration Pain , Severe (7-10) Ondansetron HCl 4 mg 03/07/19 23:22 03/09/19 17:39 Zofran IV 4 mg Q8H PRN Administration Nausea And Vomiting Oxycodone HCl 10 mg 03/09/19 10:24 Roxicodone PO Q6H PRN Pain , Severe (7-10) Sodium Chloride 10 ml 03/08/19 10:00 03/11/19 22:11 Sodium Chloride Flush Syringe 10 Ml IV 10 ml BID BEAN Administration Sodium Chloride 10 ml 03/07/19 23:22 Sodium Chloride Flush Syringe 10 Ml IV PRN PRN LINE FLUSH Tramadol HCl 50 mg 03/09/19 09:15 Ultram PO Q4H PRN Pain Nutrition/Malnutrition Assess - Dietary Evaluation Nutrition/Malnutrition Findings: Nutrition Notes Start: 03/08/19 09:52 Freq: Status: Active Protocol: Document 03/11/19 14:29 RM (Rec: 03/11/19 14:37 RM [id number]) Nutrition Notes Initial or Follow up Reassessment Current Diagnosis CKD (stage V CKD),COPD, Coronary Artery Disease,Heart Failure Other Pertinent Diagnosis HD,Afib,DVT,PulmonaryEdema, Pleural Effusion,Dialated Nonishemic Cardiopathy Current Diet Cardiac Labs/Tests K 3.8 (03/10/19) Pertinent Medications Reviewed Height 5 ft 9 in Weight 47.8 kg [place] Body Weight (kg) 72.72 BMI 15.5 Subjective/Other Information Pt is known to me from previous visits. Pt consistently requests Regular diet despite having been told the risks associated. Pt also does not like Nepro. Pt stated that he sometimes he eats bites of his meals and other times he eats 50%. Burn Absent Trauma Absent Minimum of two criteria Yes Energy Intake (non-severe) <75% Estimated Energy Requirement >7 days Interpretation of Weight Loss (severe) >10% in 6 months Body Fat Depletion Moderate depletion (severe) Muscle Mass Moderate Depletion (severe) #1 Nutrition Diagnosis Malnutrition Diagnosis Progress(for reassessment Continues documentation) Is patient on ventilator? No Is Patient Ambulatory and/or Out of Bed No REE-([place] or-confined to bed) 1474.296 Kcal/Kg value to use for calculation 41 Approximate Energy Requirements Using 1960 kcal/Kg Calculation Used for Recommendations Kcal/kg Additional Notes PRO needs: 60-75g (1.2-1.5g/kg ) Fluid needs:1-1.5 L/day ( Anuric ESRD-HD) Nutrition Intervention Change Diet Order: Regular Add Supplement/Snack (indicate name/kcal Ensure Clear Mixed Marie BID /protein ) Provides kCal: 480 Provides Protein (gm) 16 Goal #1 Meet atleast 75% PRO/kcal needs via PO and ONS intakes Goal #2 Wt gain/maintenance Follow-Up By: 03/14/19 Additional Comments Follow for PO and ONS intakes
[2019-03-12] MEDS: INSULIN LISPRO 100 UNIT/ML SUB-Q SCH ×3 (08:49→21:57)
[2019-03-12] MEDS ORDERED: SODIUM CHLORIDE 0.9% 100 ML IV PRN (09:13)
[2019-03-12] MEDS: amLODIPine 10 MG TAB PO SCH (09:14)
--- NOTE | 2019-03-12 09:14 | Progress Note ---
Assessment and Plan 1. ESRD: Continue hemodialysis three times a week, TTS schedule. HD today. 2. FEN: Monitor. 3. L sided pleural effusion: Followed by Pulmonary. Pleurx catheter placement on hold due to thrombocytopenia. Followed by Vascular. 4. A.fib: Rate controlled. Was on Lovenox. 5. HTN. 6. Anemia: Epogen if needed. 7. PAD. Subjective Date of service: 03/12/19 Principal diagnosis: ESRd Afib L pleural effusion Interval history: Patient was seen and examined at the bedside. No new complaint. Objective - Vital Signs Vital signs: Vital Signs - 12hr 03/11/19 03/11/19 03/11/19 21:35 21:50 21:56 Temperature 98.3 F 97.8 F Pulse Rate 72 73 72 Pulse Rate [ Apical] Pulse Rate [ Right Radial] Respiratory 18 16 Rate Blood Pressure 134/76 144/89 134/76 Blood Pressure [Left] O2 Sat by Pulse 100 100 Oximetry 03/11/19 03/11/19 03/11/19 21:57 22:00 22:20 Temperature 98.5 F Pulse Rate 72 72 74 Pulse Rate [ 772 H Apical] Pulse Rate [ 72 Right Radial] Respiratory 18 Rate Blood Pressure 134/76 132/88 Blood Pressure [Left] O2 Sat by Pulse 100 100 Oximetry 03/11/19 03/12/19 03/12/19 23:20 03:10 03:25 Temperature 98.4 F 97.5 F L 97.6 F Pulse Rate 78 72 77 Pulse Rate [ Apical] Pulse Rate [ Right Radial] Respiratory 18 18 16 Rate Blood Pressure 112/81 133/89 139/95 Blood Pressure [Left] O2 Sat by Pulse 100 100 100 Oximetry 03/12/19 03/12/19 03/12/19 03:55 04:25 05:00 Temperature 97.8 F 97.4 F L 98.3 F Pulse Rate 75 78 71 Pulse Rate [ Apical] Pulse Rate [ Right Radial] Respiratory 18 16 Rate Blood Pressure 143/94 143/87 129/92 Blood Pressure [Left] O2 Sat by Pulse 99 99 99 Oximetry 03/12/19 08:03 Temperature 98.0 F Pulse Rate 70 Pulse Rate [ Apical] Pulse Rate [ Right Radial] Respiratory 18 Rate Blood Pressure Blood Pressure 130/88 [Left] O2 Sat by Pulse 93 Oximetry - General Appearance General appearance: well-developed, appears stated age, other (no distress, R IJ tunnel catheter) EENT: ATNC, PERRL, mucous membranes moist, hearing intact, vision intact Neck: supple Respiratory: Present: Clear to Ascultation, Decreased Breath Sounds (L side) Cardiology: irregularly irregular, S1S2, no murmurs Gastrointestinal: normoactive bowel sounds, no tenderness, no distended Integumentary: no rash, warm and dry Neurologic: no focal deficit, no asterixis, alert and oriented x3 Musculoskeletal: other (no edema, L forearm amputation) - Lab 03/12/19 05:26 03/10/19 04:52 Most recent lab results Calcium 8.9 mg/dL (8.4-10.2) 03/10/19 04:52 Medications & Allergies - Medications Allergies/Adverse Reactions: Allergies aspirin Allergy (Verified 02/20/19 22:06) Unknown stomach cramps pork derived (porcine) Allergy (Verified 02/20/19 22:06) Rash venom-honey bee [bee venom (honey bee)] Allergy (Verified 02/20/19 22:06) Anaphylaxis Pork/Porcine Containing Products Adverse Reaction (Severe, Verified 02/20/19 22:06) Nausea,VOMITING Home Medications: Home Medications Medication Instructions Recorded Confirmed Last Taken Type AtorvaSTATin [Lipitor] 40 mg PO QHS #30 tablet 12/29/18 03/07/19 01/01/19 Rx Famotidine [Pepcid] 10 mg PO BID #15 tablet 12/29/18 03/07/19 01/01/19 Rx amLODIPine [Norvasc] 10 mg PO DAILY #30 tablet 12/29/18 03/07/19 01/01/19 Rx hydrALAZINE [Apresoline TAB] 50 mg PO BID #60 tablet 12/29/18 03/07/19 01/01/19 Rx Carvedilol [Coreg] 25 mg PO BID #60 tablet 01/17/19 03/07/19 Unknown Rx Oxycodone HCl [oxyCODONE] 10 mg PO Q6H PRN #10 tablet 01/23/19 03/07/19 Unknown Rx diphenhydrAMINE [Benadryl CAP] 50 mg PO Q3D PRN 01/30/19 03/07/19 Unknown History Apixaban [Eliquis] 2.5 mg PO Q12HR tablet 02/02/19 03/07/19 Unknown Rx Epoetin Prashant 10,000 Unit [Procrit] 10,000 unit SUB-Q KATERYNA PRN vial 02/02/19 03/07/19 Unknown Rx Lisinopril [Zestril TAB] 5 mg PO QDAY #30 tablet 02/02/19 03/07/19 Unknown Rx HYDROcodone/APAP 5-325 [[place] 1 each PO Q6HR PRN #12 tablet 02/21/19 03/07/19 Unknown Rx 5/325] Ondansetron [Zofran Odt] 4 mg PO Q8HR PRN #14 tab.rapdis 02/28/19 03/07/19 Unknown Rx traMADol [Ultram 50 MG tab] 50 mg PO Q4HR PRN #14 tablet 02/28/19 03/07/19 Unknown Rx Active Medications: Generic Name Dose Route Start Last Admin Trade Name Freq PRN Reason Stop Dose Admin Acetaminophen 650 mg 03/07/19 23:22 03/09/19 23:24 Tylenol PO 650 mg Q4H PRN Administration Pain MILD(1-3)/Fever >100.5/DOUGLAS Acetaminophen/Hydrocodone Bitart 1 each 03/09/19 09:15 03/12/19 01:06 [place] 5/325 PO 1 each Q6H PRN Administration Pain, Moderate (4-6) Amlodipine Besylate 10 mg 03/09/19 10:00 03/11/19 11:39 Norvasc PO 10 mg DAILY BEAN Administration Atorvastatin Calcium 40 mg 03/09/19 22:00 03/11/19 21:57 Lipitor PO 40 mg QHS BEAN Administration Carvedilol 25 mg 03/09/19 10:00 03/11/19 21:56 Coreg PO 25 mg BID BEAN Administration Dextrose 50 ml 03/08/19 12:40 D50w (25gm) Syringe IV PRN PRN Hypoglycemia Diphenhydramine HCl 25 mg 03/09/19 11:15 03/11/19 11:52 Benadryl IV 25 mg Q6H PRN Administration Itching Epoetin Prashant 10,000 unit 03/09/19 09:15 Procrit SUB-Q KATERYNA PRN hemodialysis Famotidine 10 mg 03/09/19 10:00 03/11/19 21:57 Pepcid PO 10 mg BID BEAN Administration Hydralazine HCl 10 mg 03/08/19 02:02 03/09/19 15:20 Apresoline IV 10 mg Q4H PRN Administration Hypertension Hydralazine HCl 50 mg 03/09/19 10:00 03/11/19 21:57 Apresoline PO 50 mg BID BEAN Administration Sodium Chloride 100 mls @ 999 mls/hr 03/09/19 08:52 Nacl 0.9% IV KATERYNA PRN Hypotension Insulin Human Lispro 0 unit 03/08/19 16:30 03/12/19 08:49 Humalog SUB-Q Not Given ACHS [facility] Protocol Losartan Potassium 100 mg 03/09/19 13:00 03/11/19 11:38 Cozaar PO 100 mg QDAY BEAN Administration Morphine Sulfate 4 mg 03/08/19 09:33 03/12/19 02:59 Morphine IV 4 mg Q4H PRN Administration Pain , Severe (7-10) Ondansetron HCl 4 mg 03/07/19 23:22 03/09/19 17:39 Zofran IV 4 mg Q8H PRN Administration Nausea And Vomiting Oxycodone HCl 10 mg 03/09/19 10:24 Roxicodone PO Q6H PRN Pain , Severe (7-10) Sodium Chloride 10 ml 03/08/19 10:00 03/11/19 22:11 Sodium Chloride Flush Syringe 10 Ml IV 10 ml BID BEAN Administration Sodium Chloride 10 ml 03/07/19 23:22 Sodium Chloride Flush Syringe 10 Ml IV PRN PRN LINE FLUSH Tramadol HCl 50 mg 03/09/19 09:15 Ultram PO Q4H PRN Pain
[2019-03-12] MEDS: LOSARTAN 50 MG TAB PO SCH (09:15)
[2019-03-12] MEDS: hydrALAZINE 25 MG TAB PO SCH ×2 (09:16→21:56)
--- NOTE | 2019-03-12 09:16 | Progress Note ---
Assessment and Plan Recurrent Left pleural effusion Atypical chest pain no ischemia by MPI 01/2019 End-stage renal disease on hemodialysis Chronic atrial fibrillation on low dose eliquis therapy as an outpatient; current on hold. 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 Recommendations: Continue medical therapy for nonischemic cardiomyopathy, chronic systolic heart failure and non-obstructive CAD as tolerated. Subjective Date of service: 03/12/19 Principal diagnosis: ESRd Afib L pleural effusion Interval history: Patient is resting in bed comfortably. Afib with a well controlled ventricular rate on telemetry. Objective Vital Signs Temp Pulse Pulse Pulse Pulse Pulse Pulse 03/12/19 08:03 98.0 F 70 03/12/19 05:00 98.3 F 71 03/12/19 04:25 97.4 F L 78 03/12/19 03:55 97.8 F 75 03/12/19 03:25 97.6 F 77 03/12/19 03:10 97.5 F L 72 03/11/19 23:20 98.4 F 78 03/11/19 22:20 98.5 F 74 03/11/19 22:00 72 772 H 03/11/19 21:57 72 03/11/19 21:56 72 03/11/19 21:50 97.8 F 73 03/11/19 21:35 98.3 F 72 03/11/19 20:14 03/11/19 19:35 98.2 F 70 03/11/19 16:09 98.2 F 71 03/11/19 12:00 83 03/11/19 11:39 76 03/11/19 11:38 76 03/11/19 11:34 03/11/19 10:00 84 76 76 76 76 76 Pulse Resp BP BP Pulse Ox 03/12/19 08:03 18 130/88 93 03/12/19 05:00 16 129/92 99 03/12/19 04:25 18 143/87 99 03/12/19 03:55 143/94 99 03/12/19 03:25 16 139/95 100 03/12/19 03:10 18 133/89 100 23/19 23:20 18 112/81 03/11/19 22:20 18 132/88 03/11/19 22:00 72 03/11/19 21:57 134/76 03/11/19 21:56 134/76 03/11/19 21:50 16 144/89 03/11/19 21:35 18 134/76 03/11/19 20:14 03/11/19 19:35 20 132/76 03/11/19 16:09 18 130/92 03/11/19 12:00 03/11/19 11:39 122/03/11/19 11:38 122/03/11/19 11:34 122/03/11/19 10:00 76 - Physical Examination General: No Apparent Distress HEENT: Positive: PERRL Neck: Positive: trachea midline Cardiac: Positive: irregularly irregular Lungs: Positive: Decreased Breath Sounds Neuro: Positive: Grossly Intact Extremities: Absent: edema - Labs and Meds CBC 03/12/19 Range/Units 05:26 WBC 2.6 L (4.5-11.0) K/mm3 RBC 3.29 L (3.65-5.03) M/mm3 Hgb 10.7 L (11.8-15.2) gm/dl Hct 32.9 L (35.5-45.6) % Plt Count 74 L (140-440) K/mm3 Lymph # 0.6 L (1.2-5.4) K/mm3 [place] # 0.2 (0.0-0.8) K/mm3 Eos # 0.1 (0.0-0.4) K/mm3 Baso # 0.0 (0.0-0.1) K/mm3
[2019-03-12] MEDS: carvediloL 25 MG TAB PO SCH ×2 (09:17→21:54)
[2019-03-12] MEDS: FAMOTIDINE 10 MG TAB PO SCH ×2 (09:17→21:55)
[2019-03-12] MEDS: diphenhydrAMINE 50 MG/ML VIAL IV PRN (10:00)
[2019-03-12] MEDS: EPOETIN ALFA 10,000 UNIT/1 ML INJ SUB-Q PRN (12:15)
--- NOTE | 2019-03-12 12:21 | Progress Note ---
Assessment and Plan 72 y/o with recurrent left sided pleural effusion. 1. No Pleurx. 2. No family at bedside. I have never met or son, however patient states that could manage pleurx. Im not sure about this as he has told me in the past that she would not be able to help him 3. patient may not be able to obtain pleurx for medical reasons. May have to resort to continued thoracentesis. This could be set up as an out patient from his PCP office if necessary. 4. Will continue to follow. Subjective Date of service: 03/12/19 Principal diagnosis: ESRd Afib L pleural effusion Interval history: Pleurx cancelled secondary to no change in platelet count Objective Vital Signs - 12hr 03/12/19 03/12/19 03/12/19 03:10 03:25 03:55 Temperature 97.5 F L 97.6 F 97.8 F Pulse Rate 72 77 75 Respiratory 18 16 Rate Blood Pressure 133/89 139/95 143/94 Blood Pressure [Left] O2 Sat by Pulse 100 100 99 Oximetry 03/12/19 03/12/19 03/12/19 04:25 05:00 08:03 Temperature 97.4 F L 98.3 F 98.0 F Pulse Rate 78 71 70 Respiratory 18 16 18 Rate Blood Pressure 143/87 129/92 Blood Pressure 130/88 [Left] O2 Sat by Pulse 99 99 93 Oximetry 03/12/19 03/12/19 03/12/19 09:14 09:15 09:16 Temperature Pulse Rate 78 78 78 Respiratory Rate Blood Pressure 136/88 136/88 136/88 Blood Pressure [Left] O2 Sat by Pulse Oximetry 03/12/19 03/12/19 03/12/19 09:17 09:45 09:55 Temperature 98.0 F Pulse Rate 78 77 80 Respiratory 20 Rate Blood Pressure 136/88 142/88 149/100 Blood Pressure [Left] O2 Sat by Pulse Oximetry 03/12/19 03/12/19 03/12/19 10:00 10:15 10:30 Temperature Pulse Rate 81 71 82 Respiratory Rate Blood Pressure 144/103 143/80 156/96 Blood Pressure [Left] O2 Sat by Pulse Oximetry 03/12/19 03/12/19 03/12/19 10:45 11:00 11:15 Temperature Pulse Rate 84 72 75 Respiratory Rate Blood Pressure 142/106 142/89 166/82 Blood Pressure [Left] O2 Sat by Pulse Oximetry Constitutional: no acute distress, alert Eyes: non-icteric ENT: oropharynx moist Neck: supple Effort: normal Ascultation: Left: diminished breath sounds Percussion: Left: dull Tactile fremitus: Right: normal Cardiovascular: regular rate and rhythm Gastrointestinal: normoactive bowel sounds, soft Extremities: no cyanosis Neurologic: normal mental status Psychiatric: mood appropriate CBC and BMP: 03/12/19 05:26 03/10/19 04:52 ABG, PT/INR, D-dimer: PT/INR, D-dimer PT 16.5 Sec. (12.2-14.9) H 03/09/19 10:10 INR 1.37 (0.87-1.13) H 03/09/19 10:10 Abnormal lab findings: Abnormal Labs 03/07/19 03/07/19 03/07/19 21:30 21:30 21:30 WBC 3.0 L RBC 3.54 L Hgb 11.5 L Hct 35.1 L MCV 99 H MCH 33 H RDW 15.6 H Plt Count 67 L [place] % (Auto) 9.7 H Lymph # 0.7 L Monocytes % (Manual) Seg Neutrophils # Seg Neutrophils # Man Lymphocytes # (Manual) PT INR APTT Sodium 136 L Creatinine 3.6 H POC Glucose Alkaline Phosphatase 135 H Troponin T 0.270 H* Albumin 3.3 L LDL Cholesterol Direct 28 L 03/07/19 03/08/19 03/08/19 22:59 03:28 21:46 WBC RBC Hgb Hct MCV MCH RDW Plt Count [place] % (Auto) Lymph # Monocytes % (Manual) Seg Neutrophils # Seg Neutrophils # Man Lymphocytes # (Manual) PT INR APTT Sodium Creatinine POC Glucose 118 H Alkaline Phosphatase Troponin T 0.294 H* 0.266 H* Albumin LDL Cholesterol Direct 03/09/19 03/09/19 03/10/19 10:10 10:10 04:52 WBC 2.5 L RBC 3.31 L Hgb 10.7 L Hct 32.7 L D MCV 99 H MCH RDW 15.8 H Plt Count 79 L 74 L [place] % (Auto) Lymph # Monocytes % (Manual) 14.0 H Seg Neutrophils # Seg Neutrophils # Man 1.5 L Lymphocytes # (Manual) 0.6 L PT 16.5 H INR 1.37 H APTT 37.7 H Sodium Creatinine POC Glucose Alkaline Phosphatase Troponin T Albumin LDL Cholesterol Direct 03/10/19 03/11/19 03/11/19 04:52 06:10 20:40 WBC RBC Hgb 10.5 L Hct 31.9 L MCV MCH RDW Plt Count 67 L [place] % (Auto) Lymph # Monocytes % (Manual) Seg Neutrophils # Seg Neutrophils # Man Lymphocytes # (Manual) PT INR APTT Sodium Creatinine 4.0 H POC Glucose 122 H Alkaline Phosphatase Troponin T Albumin LDL Cholesterol Direct 03/12/19 05:26 WBC 2.6 L RBC 3.29 L Hgb 10.7 L Hct 32.9 L MCV 100 H MCH 33 H RDW 15.8 H Plt Count 74 L [place] % (Auto) 8.3 H Lymph # 0.6 L Monocytes % (Manual) Seg Neutrophils # 1.7 L Seg Neutrophils # Man Lymphocytes # (Manual) PT INR APTT Sodium Creatinine POC Glucose Alkaline Phosphatase Troponin T Albumin LDL Cholesterol Direct
[2019-03-12] MEDS: ONDANSETRON 4 MG/2 ML INJ IV PRN (14:03)
--- NOTE | 2019-03-12 18:58 | Progress Note ---
Assessment and Plan Patient had 2 platelet pharesis packs transfused but despite transfusion, but platelet count has not changed. Patient has multiple issues, including ESRD, putting him at risk for platelet dysfunction and bleeding. Discussed with Dr. Liao. After discussion, we both feel tunneled pleural catheter may not be optimal for this patient. IR signing off. Subjective Principal diagnosis: ESRd Afib L pleural effusion Objective - Constitutional Vitals: Vital Signs - 12hr 03/12/19 03/12/19 03/12/19 08:03 09:14 09:15 Temperature 98.0 F Pulse Rate 70 78 78 Respiratory 18 Rate Blood Pressure 136/88 136/88 Blood Pressure 130/88 [Left] O2 Sat by Pulse 93 Oximetry 03/12/19 03/12/19 03/12/19 09:16 09:17 09:45 Temperature 98.0 F Pulse Rate 78 78 77 Respiratory 20 Rate Blood Pressure 136/88 136/88 142/88 Blood Pressure [Left] O2 Sat by Pulse Oximetry 03/12/19 03/12/19 03/12/19 09:55 10:00 10:15 Temperature Pulse Rate 80 81 71 Respiratory Rate Blood Pressure 149/100 144/103 143/80 Blood Pressure [Left] O2 Sat by Pulse Oximetry 03/12/19 03/12/19 03/12/19 10:30 10:45 11:00 Temperature Pulse Rate 82 84 72 Respiratory Rate Blood Pressure 156/96 142/106 142/89 Blood Pressure [Left] O2 Sat by Pulse Oximetry 03/12/19 03/12/19 03/12/19 11:15 11:30 11:45 Temperature Pulse Rate 75 75 66 Respiratory Rate Blood Pressure 166/82 173/66 151/91 Blood Pressure [Left] O2 Sat by Pulse Oximetry 03/12/19 03/12/19 03/12/19 12:00 12:15 12:30 Temperature Pulse Rate 78 86 74 Respiratory Rate Blood Pressure 157/96 159/101 150/90 Blood Pressure [Left] O2 Sat by Pulse Oximetry 03/12/19 03/12/19 03/12/19 12:45 13:00 16:56 Temperature 98.2 F 98.0 F Pulse Rate 77 81 63 Respiratory 18 18 Rate Blood Pressure 173/89 165/91 97/61 Blood Pressure [Left] O2 Sat by Pulse 100 Oximetry - Labs CBC & Chem 7: 03/12/19 05:26 09/22/19 04:52 Labs: Abnormal lab results 03/11/19 03/12/19 03/12/19 Range/Units 20:40 05:26 17:03 WBC 2.6 L (4.5-11.0) K/mm3 RBC 3.29 L (3.65-5.03) M/mm3 Hgb 10.7 L (11.8-15.2) gm/dl Hct 32.9 L (35.5-45.6) % MCV 100 H (84-94) fl MCH 33 H (28-32) pg RDW 15.8 H (13.2-15.2) % Plt Count 74 L (140-440) K/mm3 [place] % (Auto) 8.3 H (0.0-7.3) % Lymph # 0.6 L (1.2-5.4) K/mm3 Seg Neutrophils # 1.7 L (1.8-7.7) K/mm3 POC Glucose 122 H 129 H (70-105) Medications & Allergies - Medications Allergies/Adverse Reactions: Allergies aspirin Allergy (Verified 02/20/19 22:06) Unknown stomach cramps pork derived (porcine) Allergy (Verified 02/20/19 22:06) Rash venom-honey bee [bee venom (honey bee)] Allergy (Verified 02/20/19 22:06) Anaphylaxis Pork/Porcine Containing Products Adverse Reaction (Severe, Verified 02/20/19 22:06) Nausea,VOMITING Home Medications: Home Medications Medication Instructions Recorded Confirmed Last Taken Type AtorvaSTATin [Lipitor] 40 mg PO QHS #30 tablet 12/29/18 03/07/19 01/01/19 Rx Famotidine [Pepcid] 10 mg PO BID #15 tablet 12/29/18 03/07/19 01/01/19 Rx amLODIPine [Norvasc] 10 mg PO DAILY #30 tablet 12/29/18 03/07/19 01/01/19 Rx hydrALAZINE [Apresoline TAB] 50 mg PO BID #60 tablet 12/29/18 03/07/19 01/01/19 Rx Carvedilol [Coreg] 25 mg PO BID #60 tablet 01/17/19 03/07/19 Unknown Rx Oxycodone HCl [oxyCODONE] 10 mg PO Q6H PRN #10 tablet 01/23/19 03/07/19 Unknown Rx diphenhydrAMINE [Benadryl CAP] 50 mg PO Q3D PRN 01/30/19 03/07/19 Unknown History Apixaban [Eliquis] 2.5 mg PO Q12HR tablet 02/02/19 03/07/19 Unknown Rx Epoetin Prashant 10,000 Unit [Procrit] 10,000 unit SUB-Q KATERYNA PRN vial 02/02/19 03/07/19 Unknown Rx Lisinopril [Zestril TAB] 5 mg PO QDAY #30 tablet 02/02/19 03/07/19 Unknown Rx HYDROcodone/APAP 5-325 [[place] 1 each PO Q6HR PRN #12 tablet 02/21/19 03/07/19 Unknown Rx 5/325] Ondansetron [Zofran Odt] 4 mg PO Q8HR PRN #14 tab.rapdis 02/28/19 03/07/19 Unknown Rx traMADol [Ultram 50 MG tab] 50 mg PO Q4HR PRN #14 tablet 02/28/19 03/07/19 Unknown Rx Active Medications: Generic Name Dose Route Start Last Admin Trade Name Freq PRN Reason Stop Dose Admin Acetaminophen 650 mg 03/07/19 23:22 03/09/19 23:24 Tylenol PO 650 mg Q4H PRN Administration Pain MILD(1-3)/Fever >100.5/DOUGLAS Acetaminophen/Hydrocodone Bitart 1 each 03/09/19 09:15 03/12/19 01:06 [place] 5/325 PO 1 each Q6H PRN Administration Pain, Moderate (4-6) Amlodipine Besylate 10 mg 03/09/19 10:00 03/12/19 09:14 Norvasc PO 10 mg DAILY BEAN Administration Atorvastatin Calcium 40 mg 03/09/19 22:00 03/11/19 21:57 Lipitor PO 40 mg QHS BEAN Administration Carvedilol 25 mg 03/09/19 10:00 03/12/19 09:17 Coreg PO 25 mg BID BEAN Administration Dextrose 50 ml 03/08/19 12:40 D50w (25gm) Syringe IV PRN PRN Hypoglycemia Diphenhydramine HCl 25 mg 03/09/19 11:15 03/12/19 10:00 Benadryl IV 25 mg Q6H PRN Administration Itching Epoetin Prashant 10,000 unit 03/09/19 09:15 03/12/19 12:15 Procrit SUB-Q 10,000 unit KATERYNA PRN Administration hemodialysis Famotidine 10 mg 03/09/19 10:00 03/12/19 09:17 Pepcid PO 10 mg BID BEAN Administration Hydralazine HCl 10 mg 03/08/19 02:02 03/09/19 15:20 Apresoline IV 10 mg Q4H PRN Administration Hypertension Hydralazine HCl 50 mg 03/09/19 10:00 03/12/19 09:16 Apresoline PO 50 mg BID BEAN Administration Sodium Chloride 100 mls @ 999 mls/hr 03/12/19 09:13 Nacl 0.9% IV KATERYNA PRN Hypotension Insulin Human Lispro 0 unit 03/08/19 16:30 03/12/19 14:06 Humalog SUB-Q Not Given ACHS [facility] Protocol Losartan Potassium 100 mg 03/09/19 13:00 03/12/19 09:15 Cozaar PO 100 mg QDAY BEAN Administration Morphine Sulfate 4 mg 03/08/19 09:33 03/12/19 14:03 Morphine IV 4 mg Q4H PRN Administration Pain , Severe (7-10) Ondansetron HCl 4 mg 03/07/19 23:22 03/12/19 14:03 Zofran IV 4 mg Q8H PRN Administration Nausea And Vomiting Oxycodone HCl 10 mg 03/09/19 10:24 Roxicodone PO Q6H PRN Pain , Severe (7-10) Sodium Chloride 10 ml 03/08/19 10:00 03/12/19 09:18 Sodium Chloride Flush Syringe 10 Ml IV 10 ml BID BEAN Administration Sodium Chloride 10 ml 03/07/19 23:22 Sodium Chloride Flush Syringe 10 Ml IV PRN PRN LINE FLUSH Tramadol HCl 50 mg 03/09/19 09:15 Ultram PO Q4H PRN Pain
[2019-03-13] MEDS: diphenhydrAMINE 50 MG/ML VIAL IV PRN ×3 (02:35→22:08)
[2019-03-13] MEDS: MORPHINE 4 MG/1 ML INJ IV PRN (05:36)
[2019-03-13 06:24] LABS: Hematocrit 33.4 % (35.5-45.6); Hemoglobin 10.3 gm/dl (11.8-15.2)
--- NOTE | 2019-03-13 08:09 | Progress Note ---
Assessment and Plan Assessment and plan: Patient is a 71 yo chronic disable man with a plethora of severe co-morbidities including recurrent left sided pleural effusion s/p thoracentesis almost every 2 weeks, ESRD on HD, Afib on Eliquis, Systolic heart failure with NICMP (most recent left ventricular function assessment showing an ejection fraction of 25- 30%.), DVT, PTSD, AOCD, Right upper extermity chronic ulcer, C. Diffe and hypertension who presented with chest pains and SOB. Patient has many ED visits with multiple admissions since 01/21/19. In December 2018, he had 5 ED visits. In January 2019 he had 6 ED visits. So far in February 2019, he has 3 ED visits. Multiple ED visits for falling out the bed, and one visit for falling out the wh eelchair, one ED visit for Chest pains. Currently admitted for Recurrent pleural effusion. Recurrent Left pleural effusion: s/p thoracentesis, I have asked Dr. Nicole to look out for the cytology Chronic thrombocytopenia since 2014 in our EMR s/p plt: monitor cbc closely, consulted Heme/Onc Anemia of chronic renal disease: monitor cbc closely, EPO with HD ESRD on Hemodialysis: Nephrology following Afib on Eliquis: hold Eliquis for thoracentesis, Chest pains with chronic elevated troponin: Cardiology is following Hypertension urgency: low salt diet, iv hydralazine prn History of Clostriodioides difficile colitis infection s/p oral Vancomycin 125 mg po QID x 10 days Pleurx cath not done due to thrombocytopenia, so Heme/Onc consulted History Interval history: Patient was seen and examined. Follow-up on current diagnosis of left pleural effusion. No overnight events reported to me. Patient denies any chest pain, shortness breath, nausea/vomiting or severe headaches. Imaging, nursing note, chart, labs and old chart reviewed. Discussed with patient. Hospitalist Physical - Physical exam Narrative exam: Gen: thin frial, chronic ill appearing, NAD, Awake, Alert, Orientated HEENT: NCAT, EOMI, PERRL, OP Clear Neck: supple, no adenopathy, no thyromegaly, no JVD CVS/Heart: RRR, normal S1S2, pulses present bilaterally Chest/Lungs: diminished left bs, Symmetrical chest expansion, good air entry right GI/Abdomen: soft, NTND, good bowel sounds, no guarding or rebound /Bladder: no suprapubic tenderness, no CVA or paraspinal tenderness Extermity/Skin: no c/c/e, no obvious rash MSK: FROM x 3, left forearm amputated Neuro: CN 2-12 grossly intact, no new focal deficits Psych: calm - Constitutional Vitals: Temp Pulse Resp BP Pulse Ox 98.0 F 74 18 125/83 100 03/13/19 04:15 03/13/19 04:15 03/13/19 04:15 03/13/19 04:15 03/13/19 04:15 General appearance: Present: no acute distress, well-nourished Results - Labs CBC & Chem 7: 03/13/19 05:40 03/10/19 04:52 Labs: Laboratory Last Values WBC 2.6 K/mm3 (4.5-11.0) L 03/12/19 05:26 RBC 3.29 M/mm3 (3.65-5.03) L 03/12/19 05:26 Hgb 10.3 gm/dl (11.8-15.2) L 03/13/19 05:40 Hct 33.4 % (35.5-45.6) L 03/13/19 05:40 MCV 100 fl (84-94) H 03/12/19 05:26 MCH 33 pg (28-32) H 03/12/19 05:26 MCHC 33 % (32-34) 03/12/19 05:26 RDW 15.8 % (13.2-15.2) H 03/12/19 05:26 Plt Count 47 K/mm3 (140-440) L 03/13/19 05:40 Lymph % (Auto) 22.7 % (13.4-35.0) 03/12/19 05:26 [place] % (Auto) 8.3 % (0.0-7.3) H 03/12/19 05:26 Eos % (Auto) 2.4 % (0.0-4.3) 03/12/19 05:26 Baso % (Auto) 0.9 % (0.0-1.8) 03/12/19 05:26 Lymph # 0.6 K/mm3 (1.2-5.4) L 03/12/19 05:26 [place] # 0.2 K/mm3 (0.0-0.8) 03/12/19 05:26 Eos # 0.1 K/mm3 (0.0-0.4) 03/12/19 05:26 Baso # 0.0 K/mm3 (0.0-0.1) 03/12/19 05:26 Add Manual Diff Complete 03/10/19 04:52 Total Counted 100 03/10/19 04:52 Seg Neutrophils % 65.7 % (40.0-70.0) 03/12/19 05:26 Seg Neuts % (Manual) 60.0 % (40.0-70.0) 03/10/19 04:52 0 % 03/10/19 04:52 23.0 % (13.4-35.0) 03/10/19 04:52 Reactive Lymphs % (Man) 0 % 03/10/19 04:52 14.0 % (0.0-7.3) H 03/10/19 04:52 2.0 % (0.0-4.3) 03/10/19 04:52 1.0 % (0.0-1.8) 03/10/19 04:52 0 % 03/10/19 04:52 0 % 03/10/19 04:52 0 % 03/10/19 04:52 0 % 03/10/19 04:52 Nucleated RBC % Not Reportable 03/10/19 04:52 Seg Neutrophils # 1.7 K/mm3 (1.8-7.7) L 03/12/19 05:26 Seg Neutrophils # Man 1.5 K/mm3 (1.8-7.7) L 03/10/19 04:52 Band Neutrophils # 0.0 K/mm3 03/10/19 04:52 0.6 K/mm3 (1.2-5.4) L 03/10/19 04:52 Abs React Lymphs (Man) 0.0 K/mm3 03/10/19 04:52 0.4 K/mm3 (0.0-0.8) 03/10/19 04:52 0.1 K/mm3 (0.0-0.4) 03/10/19 04:52 0.0 K/mm3 (0.0-0.1) 03/10/19 04:52 0.0 K/mm3 03/10/19 04:52 0.0 K/mm3 03/10/19 04:52 0.0 K/mm3 03/10/19 04:52 Blast Cells # 0.0 K/mm3 03/10/19 04:52 WBC Morphology Not Reportable 03/10/19 04:52 Hypersegmented Neuts Not Reportable 03/10/19 04:52 Hyposegmented Neuts Not Reportable 03/10/19 04:52 Hypogranular Neuts Not Reportable 03/10/19 04:52 Not Reportable 03/10/19 04:52 Not Reportable 03/10/19 04:52 Not Reportable 03/10/19 04:52 Not Reportable 03/10/19 04:52 Not Reportable 03/10/19 04:52 Not Reportable 03/10/19 04:52 Not Reportable 03/10/19 04:52 Not Reportable 03/10/19 04:52 Plt Clumps, EDTA Not Reportable 03/10/19 04:52 Not Reportable 03/10/19 04:52 Not Reportable 03/10/19 04:52 Not Reportable 03/10/19 04:52 Plt Morphology Comment Not Reportable 03/10/19 04:52 RBC Morphology Normal 03/10/19 04:52 Dimorphic RBCs Not Reportable 03/10/19 04:52 Not Reportable 03/10/19 04:52 Not Reportable 03/10/19 04:52 Not Reportable 03/10/19 04:52 Not Reportable 03/10/19 04:52 Not Reportable 03/10/19 04:52 Not Reportable 03/10/19 04:52 Not Reportable 03/10/19 04:52 Not Reportable 03/10/19 04:52 Not Reportable 03/10/19 04:52 Not Reportable 03/10/19 04:52 Not Reportable 03/10/19 04:52 Not Reportable 03/10/19 04:52 Not Reportable 03/10/19 04:52 Not Reportable 03/10/19 04:52 Not Reportable 03/10/19 04:52 Not Reportable 03/10/19 04:52 Not Reportable 03/10/19 04:52 Not Reportable 03/10/19 04:52 Not Reportable 03/10/19 04:52 Acanthocytes (Spur) Not Reportable 03/10/19 04:52 Rouleaux Not Reportable 03/10/19 04:52 Not Reportable 03/10/19 04:52 Not Reportable 03/10/19 04:52 Not Reportable 03/10/19 04:52 Not Reportable 03/10/19 04:52 Hem Pathologist Commnt No 03/10/19 04:52 PT 16.5 Sec. (12.2-14.9) H 03/09/19 10:10 INR 1.37 (0.87-1.13) H 03/09/19 10:10 APTT 37.7 Sec. (24.2-36.6) H 03/09/19 10:10 Sodium 137 mmol/L (137-145) 03/10/19 04:52 Potassium 3.8 mmol/L (3.6-5.0) 03/10/19 04:52 Chloride 98.2 mmol/L (98-107) 03/10/19 04:52 Carbon Dioxide 25 mmol/L (22-30) 03/10/19 04:52 18 mmol/L 03/10/19 04:52 BUN 15 mg/dL (9-20) 03/10/19 04:52 4.0 mg/dL (0.8-1.5) H 03/10/19 04:52 Estimated GFR 18 ml/min 03/10/19 04:52 4 % 03/10/19 04:52 Glucose 89 mg/dL (75-100) 03/10/19 04:52 POC Glucose 122 (70-105) H 03/12/19 20:33 Calcium 8.9 mg/dL (8.4-10.2) 03/10/19 04:52 0.70 mg/dL (0.1-1.2) 03/07/19 21:30 0.2 mg/dL (0-0.2) 03/07/19 21:30 0.5 mg/dL 03/07/19 21:30 AST 28 units/L (5-40) 03/07/19 21:30 ALT 25 units/L (7-56) 03/07/19 21:30 135 units/L (35-129) H 03/07/19 21:30 0.266 ng/mL (0.00-0.029) H* 03/08/19 03:28 6.7 g/dL (6.3-8.2) 03/07/19 21:30 3.3 g/dL (3.9-5) L 03/07/19 21:30 1.0 % 03/07/19 21:30 Triglycerides 51 mg/dL (2-149) 03/07/19 21:30 Cholesterol 73 mg/dL (50-199) 03/07/19 21:30 28 mg/dL (50-130) L 03/07/19 21:30 43 mg/dL (40-59) 03/07/19 21:30 1.69 % 03/07/19 21:30 Blood Type O POSITIVE 03/11/19 11:20 Active Medications - Current Medications Current Medications: Generic Name Dose Route Start Last Admin Trade Name Freq PRN Reason Stop Dose Admin Acetaminophen 650 mg 03/07/19 23:22 03/09/19 23:24 Tylenol PO 650 mg Q4H PRN Administration Pain MILD(1-3)/Fever >100.5/DOUGLAS Acetaminophen/Hydrocodone Bitart 1 each 03/09/19 09:15 03/12/19 01:06 [place] 5/325 PO 1 each Q6H PRN Administration Pain, Moderate (4-6) Amlodipine Besylate 10 mg 03/09/19 10:00 03/12/19 09:14 Norvasc PO 10 mg DAILY BEAN Administration Atorvastatin Calcium 40 mg 03/09/19 22:00 03/12/19 21:55 Lipitor PO 40 mg QHS BEAN Administration Carvedilol 25 mg 03/09/19 10:00 03/12/19 21:54 Coreg PO 25 mg BID BEAN Administration Dextrose 50 ml 03/08/19 12:40 D50w (25gm) Syringe IV PRN PRN Hypoglycemia Diphenhydramine HCl 25 mg 03/09/19 11:15 03/13/19 02:35 Benadryl IV 25 mg Q6H PRN Administration Itching Epoetin Prashant 10,000 unit 03/09/19 09:15 03/12/19 12:15 Procrit SUB-Q 10,000 unit KATERYNA PRN Administration hemodialysis Famotidine 10 mg 03/09/19 10:00 03/12/19 21:55 Pepcid PO 10 mg BID BEAN Administration Hydralazine HCl 10 mg 03/08/19 02:02 03/09/19 15:20 Apresoline IV 10 mg Q4H PRN Administration Hypertension Hydralazine HCl 50 mg 03/09/19 10:00 03/12/19 21:56 Apresoline PO Not Given BID BEAN Sodium Chloride 100 mls @ 999 mls/hr 03/12/19 09:13 Nacl 0.9% IV KATERYNA PRN Hypotension Insulin Human Lispro 0 unit 03/08/19 16:30 03/12/19 21:57 Humalog SUB-Q Not Given ACHS [facility] Protocol Losartan Potassium 100 mg 03/09/19 13:00 03/12/19 09:15 Cozaar PO 100 mg QDAY BEAN Administration Morphine Sulfate 4 mg 03/08/19 09:33 03/13/19 05:36 Morphine IV 4 mg Q4H PRN Administration Pain , Severe (7-10) Ondansetron HCl 4 mg 03/07/19 23:22 03/12/19 14:03 Zofran IV 4 mg Q8H PRN Administration Nausea And Vomiting Oxycodone HCl 10 mg 03/09/19 10:24 Roxicodone PO Q6H PRN Pain , Severe (7-10) Sodium Chloride 10 ml 03/08/19 10:00 03/12/19 09:18 Sodium Chloride Flush Syringe 10 Ml IV 10 ml BID BEAN Administration Sodium Chloride 10 ml 03/07/19 23:22 Sodium Chloride Flush Syringe 10 Ml IV PRN PRN LINE FLUSH Tramadol HCl 50 mg 03/09/19 09:15 Ultram PO Q4H PRN Pain Nutrition/Malnutrition Assess - Dietary Evaluation Nutrition/Malnutrition Findings: Nutrition Notes Start: 03/08/19 09:52 Freq: Status: Active Protocol: Document 03/11/19 14:29 RM (Rec: 03/11/19 14:37 RM [id number]) Nutrition Notes Initial or Follow up Reassessment Current Diagnosis CKD (stage V CKD),COPD, Coronary Artery Disease,Heart Failure Other Pertinent Diagnosis HD,Afib,DVT,PulmonaryEdema, Pleural Effusion,Dialated Nonishemic Cardiopathy Current Diet Cardiac Labs/Tests K 3.8 (03/10/19) Pertinent Medications Reviewed Height 5 ft 9 in Weight 47.8 kg [place] Body Weight (kg) 72.72 BMI 15.5 Subjective/Other Information Pt is known to me from previous visits. Pt consistently requests Regular diet despite having been told the risks associated. Pt also does not like Nepro. Pt stated that he sometimes he eats bites of his meals and other times he eats 50%. Burn Absent Trauma Absent Minimum of two criteria Yes Energy Intake (non-severe) <75% Estimated Energy Requirement >7 days Interpretation of Weight Loss (severe) >10% in 6 months Body Fat Depletion Moderate depletion (severe) Muscle Mass Moderate Depletion (severe) #1 Nutrition Diagnosis Malnutrition Diagnosis Progress(for reassessment Continues documentation) Is patient on ventilator? No Is Patient Ambulatory and/or Out of Bed No REE-([place]-confined to bed) 1474.296 Kcal/Kg value to use for calculation 41 Approximate Energy Requirements Using 1960 kcal/Kg Calculation Used for Recommendations Kcal/kg Additional Notes PRO needs: 60-75g (1.2-1.5g/kg ) Fluid needs:1-1.5 L/day ( Anuric ESRD-HD) Nutrition Intervention Change Diet Order: Regular Add Supplement/Snack (indicate name/kcal Ensure Clear Mixed Marie BID /protein ) Provides kCal: 480 Provides Protein (gm) 16 Goal #1 Meet atleast 75% PRO/kcal needs via PO and ONS intakes Goal #2 Wt gain/maintenance Follow-Up By: 03/14/19 Additional Comments Follow for PO and ONS intakes, renal labs
--- NOTE | 2019-03-13 09:29 | Progress Note ---
<LONI DEL VALLE - Last Filed: 03/13/19 09:29> Assessment and Plan Recurrent Left pleural effusion Atypical chest pain no ischemia by MPI 01/2019 End-stage renal disease on hemodialysis Chronic atrial fibrillation on low dose eliquis therapy as an outpatient; current on hold. Dilated nonischemic cardiomyopathy ejection fraction 25-30% by echocardiogram 01/2019 DM type II PVD s/p left arm amputation Hypertension Thrombocytopenia, chronic s/p platelet transfusion Non-obstructive CAD [facility] 01/2017 revealed non-obstructive, single vessel disease of the proximal LAD recommended for medical therapy. Recommendations: Continue medical therapy for nonischemic cardiomyopathy, chronic systolic heart failure and non-obstructive CAD as tolerated. Subjective Date of service: 03/13/19 Principal diagnosis: ESRd Afib L pleural effusion Interval history: Patient is resting in bed comfortably. Afib with a well controlled ventricular rate on telemetry. Objective Vital Signs Temp Pulse Pulse Pulse Resp BP Pulse Ox 03/13/19 08:01 98.1 F 70 18 120/87 100 03/13/19 04:15 98.0 F 74 18 125/83 100 03/12/19 23:13 98.0 F 73 20 106/64 99 03/12/19 22:00 81 81 81 18 100 03/12/19 21:56 76 103/76 03/12/19 21:54 69 103/79 03/12/19 19:26 98.4 F 76 20 117/74 100 03/12/19 16:56 98.0 F 63 18 97/61 100 03/12/19 13:00 98.2 F 81 18 165/91 03/12/19 12:45 77 173/89 03/12/19 12:30 74 150/90 03/12/19 12:15 86 159/101 03/12/19 12:00 78 157/96 03/12/19 11:45 66 151/91 03/12/19 11:30 75 173/66 03/12/19 11:15 75 166/82 03/12/19 11:00 72 142/89 03/12/19 10:45 84 142/106 03/12/19 10:30 82 156/96 03/12/19 10:15 71 143/80 03/12/19 10:00 81 144/103 03/12/19 09:55 80 149/100 03/12/19 09:45 98.0 F 77 20 142/88 - Physical Examination General: No Apparent Distress HEENT: Positive: PERRL Neck: Positive: trachea midline Cardiac: Positive: irregularly irregular Lungs: Positive: Decreased Breath Sounds Neuro: Positive: Grossly Intact Extremities: Absent: edema - Labs and Meds CBC 03/13/19 Range/Units 05:40 Hgb 10.3 L (11.8-15.2) gm/dl Hct 33.4 L (35.5-45.6) % Plt Count 47 L (140-440) K/mm3 <ENEDINA ROCHA - Last Filed: 03/13/19 10:56> Assessment and Plan I've seen and evaluated the patient and agree with the assessment and plan. Patient presents with a history of chronic atrial fibrillation, dilated nonischemic cardiomyopathy with ejection fraction 25-30%, and end-stage renal disease on hemodialysis. At this time recommend continued medical therapy for treatment of nonischemic myopathy and nonobstructive coronary artery disease. Objective Vital Signs Temp Pulse Pulse Pulse Resp BP Pulse Ox 03/13/19 09:42 70 120/87 03/13/19 09:41 70 120/87 03/13/19 09:40 70 120/87 03/13/19 08:01 98.1 F 70 18 120/87 100 03/13/19 04:15 98.0 F 74 18 125/83 100 03/12/19 23:13 98.0 F 73 20 106/64 99 03/12/19 22:00 81 81 81 18 100 03/12/19 21:56 76 103/76 03/12/19 21:54 69 103/79 03/12/19 19:26 98.4 F 76 20 117/74 100 03/12/19 16:56 98.0 F 63 18 97/61 100 03/12/19 13:00 98.2 F 81 18 165/91 03/12/19 12:45 77 173/89 03/12/19 12:30 74 150/90 03/12/19 12:15 86 159/101 03/12/19 12:00 78 157/96 03/12/19 11:45 66 151/91 03/12/19 11:30 75 173/66 03/12/19 11:15 75 166/82 09/24/19 11:00 72 142/89 - Labs and Meds CBC 03/13/19 Range/Units 05:40 Hgb 10.3 L (11.8-15.2) gm/dl Hct 33.4 L (35.5-45.6) % Plt Count 47 L (140-440) K/mm3
[2019-03-13] MEDS: LOSARTAN 50 MG TAB PO SCH (09:40)
[2019-03-13] MEDS: FAMOTIDINE 10 MG TAB PO SCH ×2 (09:41→21:59)
[2019-03-13] MEDS: carvediloL 25 MG TAB PO SCH ×2 (09:41→22:00)
[2019-03-13] MEDS: INSULIN LISPRO 100 UNIT/ML SUB-Q SCH ×4 (09:41→22:01)
[2019-03-13] MEDS: hydrALAZINE 25 MG TAB PO SCH ×2 (09:41→22:01)
[2019-03-13] MEDS: amLODIPine 10 MG TAB PO SCH (09:42)
[2019-03-13] MEDS: oxyCODONE 5 MG TAB PO PRN ×2 (11:53→22:07)
--- NOTE | 2019-03-13 12:30 | Progress Note ---
Assessment and Plan 1. ESRD: Continue hemodialysis three times a week, TTS schedule. 2. FEN: Monitor. 3. L sided pleural effusion: Followed by Pulmonary. Pleurx catheter placement on hold due to thrombocytopenia. Followed by Vascular. 4. A.fib: Rate controlled. 5. HTN. 6. Anemia: Epogen if needed. 7. PAD. Subjective Date of service: 03/13/19 Principal diagnosis: ESRd Afib L pleural effusion Interval history: Patient was seen and examined at the bedside. No new complaint. Objective - Vital Signs Vital signs: Vital Signs - 12hr 03/13/19 03/13/19 03/13/19 04:15 08:01 09:40 Temperature 98.0 F 98.1 F Pulse Rate 74 70 70 Respiratory 18 18 Rate Blood Pressure 125/83 120/87 120/87 O2 Sat by Pulse 100 100 Oximetry 03/13/19 03/13/19 03/13/19 09:41 09:42 11:25 Temperature Pulse Rate 70 70 Respiratory Rate Blood Pressure 120/87 120/87 O2 Sat by Pulse 100 Oximetry 03/13/19 11:56 Temperature 97.7 F Pulse Rate 68 Respiratory 18 Rate Blood Pressure 124/87 O2 Sat by Pulse 100 Oximetry - General Appearance General appearance: well-developed, appears stated age, other (no distress, R IJ tunnel catheter) EENT: ATNC, PERRL, mucous membranes moist, hearing intact, vision intact Neck: supple Respiratory: Present: Clear to Ascultation, Decreased Breath Sounds (L side) Cardiology: regular, S1S2, no murmurs Gastrointestinal: normoactive bowel sounds, no tenderness, no distended Integumentary: no rash, warm and dry Neurologic: no focal deficit, no asterixis, alert and oriented x3 Musculoskeletal: other (no edema, L forearm amputation) - Lab 03/14/19 05:44 03/14/19 05:44 Most recent lab results Calcium 8.9 mg/dL (8.4-10.2) 03/10/19 04:52 Medications & Allergies - Medications Allergies/Adverse Reactions: Allergies aspirin Allergy (Verified 02/20/19 22:06) Unknown stomach cramps pork derived (porcine) Allergy (Verified 02/20/19 22:06) Rash venom-honey bee [bee venom (honey bee)] Allergy (Verified 02/20/19 22:06) Anaphylaxis Pork/Porcine Containing Products Adverse Reaction (Severe, Verified 02/20/19 22:06) Nausea,VOMITING Home Medications: Home Medications Medication Instructions Recorded Confirmed Last Taken Type AtorvaSTATin [Lipitor] 40 mg PO QHS #30 tablet 12/29/18 03/07/19 01/01/19 Rx Famotidine [Pepcid] 10 mg PO BID #15 tablet 12/29/18 03/07/19 01/01/19 Rx amLODIPine [Norvasc] 10 mg PO DAILY #30 tablet 12/29/18 03/07/19 01/01/19 Rx hydrALAZINE [Apresoline TAB] 50 mg PO BID #60 tablet 12/29/18 03/07/19 01/01/19 Rx Carvedilol [Coreg] 25 mg PO BID #60 tablet 01/17/19 03/07/19 Unknown Rx Oxycodone HCl [oxyCODONE] 10 mg PO Q6H PRN #10 tablet 01/23/19 03/07/19 Unknown Rx diphenhydrAMINE [Benadryl CAP] 50 mg PO Q3D PRN 01/30/19 03/07/19 Unknown History Apixaban [Eliquis] 2.5 mg PO Q12HR tablet 02/02/19 03/07/19 Unknown Rx Epoetin Prashant 10,000 Unit [Procrit] 10,000 unit SUB-Q KATERYNA PRN vial 02/02/19 03/07/19 Unknown Rx Lisinopril [Zestril TAB] 5 mg PO QDAY #30 tablet 02/02/19 03/07/19 Unknown Rx HYDROcodone/APAP 5-325 [[place] 1 each PO Q6HR PRN #12 tablet 02/21/19 03/07/19 Unknown Rx 5/325] Ondansetron [Zofran Odt] 4 mg PO Q8HR PRN #14 tab.rapdis 02/28/19 03/07/19 Unknown Rx traMADol [Ultram 50 MG tab] 50 mg PO Q4HR PRN #14 tablet 02/28/19 03/07/19 Unknown Rx Active Medications: Generic Name Dose Route Start Last Admin Trade Name Freq PRN Reason Stop Dose Admin Acetaminophen 650 mg 03/07/19 23:22 03/09/19 23:24 Tylenol PO 650 mg Q4H PRN Administration Pain MILD(1-3)/Fever >100.5/DOUGLAS Acetaminophen/Hydrocodone Bitart 1 each 03/09/19 09:15 03/12/19 01:06 [place] 5/325 PO 1 each Q6H PRN Administration Pain, Moderate (4-6) Amlodipine Besylate 10 mg 03/09/19 10:00 03/13/19 09:42 Norvasc PO 10 mg DAILY BEAN Administration Atorvastatin Calcium 40 mg 03/09/19 22:00 03/12/19 21:55 Lipitor PO 40 mg QHS BEAN Administration Carvedilol 25 mg 03/09/19 10:00 03/13/19 09:41 Coreg PO 25 mg BID BEAN Administration Dextrose 50 ml 03/08/19 12:40 D50w (25gm) Syringe IV PRN PRN Hypoglycemia Diphenhydramine HCl 25 mg 03/09/19 11:15 03/13/19 02:35 Benadryl IV 25 mg Q6H PRN Administration Itching Epoetin Prashant 10,000 unit 03/09/19 09:15 03/12/19 12:15 Procrit SUB-Q 10,000 unit KATERYNA PRN Administration hemodialysis Famotidine 10 mg 03/09/19 10:00 03/13/19 09:41 Pepcid PO 10 mg BID BEAN Administration Hydralazine HCl 10 mg 03/08/19 02:02 03/09/19 15:20 Apresoline IV 10 mg Q4H PRN Administration Hypertension Hydralazine HCl 50 mg 03/09/19 10:00 03/13/19 09:41 Apresoline PO 50 mg BID BEAN Administration Sodium Chloride 100 mls @ 999 mls/hr 03/12/19 09:13 Nacl 0.9% IV KATERYNA PRN Hypotension Insulin Human Lispro 0 unit 03/08/19 16:30 03/13/19 09:41 Humalog SUB-Q Not Given ACHS [facility] Protocol Losartan Potassium 100 mg 03/09/19 13:00 03/13/19 09:40 Cozaar PO 100 mg QDAY BEAN Administration Morphine Sulfate 4 mg 03/08/19 09:33 03/13/19 05:36 Morphine IV 4 mg Q4H PRN Administration Pain , Severe (7-10) Ondansetron HCl 4 mg 03/07/19 23:22 03/12/19 14:03 Zofran IV 4 mg Q8H PRN Administration Nausea And Vomiting Oxycodone HCl 10 mg 03/09/19 10:24 03/13/19 11:53 Roxicodone PO 10 mg Q6H PRN Administration Pain , Severe (7-10) Sodium Chloride 10 ml 03/08/19 10:00 03/13/19 09:42 Sodium Chloride Flush Syringe 10 Ml IV 10 ml BID BEAN Administration Sodium Chloride 10 ml 03/07/19 23:22 Sodium Chloride Flush Syringe 10 Ml IV PRN PRN LINE FLUSH Tramadol HCl 50 mg 03/09/19 09:15 Ultram PO Q4H PRN Pain
--- NOTE | 2019-03-13 13:21 | Progress Note ---
Assessment and Plan 72 y/o with recurrent left sided pleural effusion. 1. No Pleurx. 2. No family at bedside. I have never met or son, however patient states that could manage pleurx. Im not sure about this as he has told me in the past that she would not be able to help him 3. patient may not be able to obtain pleurx for medical reasons. May have to resort to continued thoracentesis. This could be set up as an out patient from his PCP office if necessary. 4. Will continue to follow. Subjective Date of service: 03/13/19 Principal diagnosis: ESRd Afib L pleural effusion Interval history: No acute events. NO Pleurx. Objective Vital Signs - 12hr 03/13/19 03/13/19 03/13/19 04:15 08:01 09:40 Temperature 98.0 F 98.1 F Pulse Rate 74 70 70 Respiratory 18 18 Rate Blood Pressure 125/83 120/87 120/87 O2 Sat by Pulse 100 100 Oximetry 03/13/19 03/13/19 03/13/19 09:41 09:42 11:25 Temperature Pulse Rate 70 70 Respiratory Rate Blood Pressure 120/87 120/87 O2 Sat by Pulse 100 Oximetry 03/13/19 11:56 Temperature 97.7 F Pulse Rate 68 Respiratory 18 Rate Blood Pressure 124/87 O2 Sat by Pulse 100 Oximetry Constitutional: no acute distress, alert Eyes: non-icteric ENT: oropharynx moist Neck: supple Effort: normal Ascultation: Left: diminished breath sounds Percussion: Left: dull Tactile fremitus: Right: normal Cardiovascular: regular rate and rhythm Gastrointestinal: normoactive bowel sounds, soft Extremities: no cyanosis Neurologic: normal mental status Psychiatric: mood appropriate CBC and BMP: 03/13/19 05:40 03/10/19 04:52 ABG, PT/INR, D-dimer: PT/INR, D-dimer PT 16.5 Sec. (12.2-14.9) H 03/09/19 10:10 INR 1.37 (0.87-1.13) H 03/09/19 10:10 Abnormal lab findings: Abnormal Labs 03/07/19 03/07/19 03/07/19 21:30 21:30 21:30 WBC 3.0 L RBC 3.54 L Hgb 11.5 L Hct 35.1 L MCV 99 H MCH 33 H RDW 15.6 H Plt Count 67 L Walsh % (Auto) 9.7 H Lymph # 0.7 L Monocytes % (Manual) Seg Neutrophils # Seg Neutrophils # Man Lymphocytes # (Manual) PT INR APTT Sodium 136 L Creatinine 3.6 H POC Glucose Alkaline Phosphatase 135 H Troponin T 0.270 H* Albumin 3.3 L LDL Cholesterol Direct 28 L 03/07/19 03/08/19 03/08/19 22:59 03:28 21:46 WBC RBC Hgb Hct MCV MCH RDW Plt Count Walsh % (Auto) Lymph # Monocytes % (Manual) Seg Neutrophils # Seg Neutrophils # Man Lymphocytes # (Manual) PT INR APTT Sodium Creatinine POC Glucose 118 H Alkaline Phosphatase Troponin T 0.294 H* 0.266 H* Albumin LDL Cholesterol Direct 03/09/19 03/09/19 03/10/19 10:10 10:10 04:52 WBC 2.5 L RBC 3.31 L Hgb 10.7 L Hct 32.7 L D MCV 99 H MCH RDW 15.8 H Plt Count 79 L 74 L Walsh % (Auto) Lymph # Monocytes % (Manual) 14.0 H Seg Neutrophils # Seg Neutrophils # Man 1.5 L Lymphocytes # (Manual) 0.6 L PT 16.5 H INR 1.37 H APTT 37.7 H Sodium Creatinine POC Glucose Alkaline Phosphatase Troponin T Albumin LDL Cholesterol Direct 03/10/19 03/11/19 03/11/19 04:52 06:10 20:40 WBC RBC Hgb 10.5 L Hct 31.9 L MCV MCH RDW Plt Count 67 L Walsh % (Auto) Lymph # Monocytes % (Manual) Seg Neutrophils # Seg Neutrophils # Man Lymphocytes # (Manual) PT INR APTT Sodium Creatinine 4.0 H POC Glucose 122 H Alkaline Phosphatase Troponin T Albumin LDL Cholesterol Direct 03/12/19 03/12/19 03/12/19 05:26 17:03 20:33 WBC 2.6 L RBC 3.29 L Hgb 10.7 L Hct 32.9 L MCV 100 H MCH 33 H RDW 15.8 H Plt Count 74 L Walsh % (Auto) 8.3 H Lymph # 0.6 L Monocytes % (Manual) Seg Neutrophils # 1.7 L Seg Neutrophils # Man Lymphocytes # (Manual) PT INR APTT Sodium Creatinine POC Glucose 129 H 122 H Alkaline Phosphatase Troponin T Albumin LDL Cholesterol Direct 03/13/19 05:40 WBC RBC Hgb 10.3 L Hct 33.4 L MCV MCH RDW Plt Count 47 L Walsh % (Auto) Lymph # Monocytes % (Manual) Seg Neutrophils # Seg Neutrophils # Man Lymphocytes # (Manual) PT INR APTT Sodium Creatinine POC Glucose Alkaline Phosphatase Troponin T Albumin LDL Cholesterol Direct
[2019-03-13] MEDS: HYDROcodone/ACETAMINOPHEN 5-325 MG TAB PO PRN (17:48)
[2019-03-13 20:18] LABS: Hepatitis B Surface Antigen Non-Reactive (Negative); Hepatitis C Virus Antibody Reactive (NonReactive)
[2019-03-14] MEDS: diphenhydrAMINE 50 MG/ML VIAL IV PRN ×3 (05:35→19:08)
[2019-03-14 06:24] LABS: Hematocrit 32.1 % (35.5-45.6); Hemoglobin 10.4 gm/dl (11.8-15.2); Mean Corpuscular HGB Conc 32 % (32-34); Mean Corpuscular Volume 98 fl (84-94); Red Cell Distribution Width 15.6 % (13.2-15.2)
--- NOTE | 2019-03-14 06:24 | Event Note ---
Date: 03/13/19 [id number]
[2019-03-14 06:28] LABS: Platelet Count 51 K/mm3 (140-440)
[2019-03-14 06:46] LABS: Calcium 8.2 mg/dL (8.4-10.2)
--- NOTE | 2019-03-14 06:55 | Progress Note ---
Assessment and Plan Assessment and plan: Patient is a 71 yo chronic disable man with a plethora of severe co-morbidities including recurrent left sided pleural effusion s/p thoracentesis almost every 2 weeks, ESRD on HD, Afib on Eliquis, Systolic heart failure with NICMP (most recent left ventricular function assessment showing an ejection fraction of 25- 30%.), DVT, PTSD, AOCD, Right upper extermity chronic ulcer, C. Diffe and hypertension who presented with chest pains and SOB. Patient has many ED visits with multiple admissions since 01/21/19. In December 2018, he had 5 ED visits. In January 2019 he had 6 ED visits. So far in February 2019, he has 3 ED visits. Multiple ED visits for falling out the bed, and one visit for falling out the wh eelchair, one ED visit for Chest pains. Currently admitted for Recurrent pleural effusion. Recurrent Moderate symptomatic Left pleural effusion: Order Thoracentesis Chronic thrombocytopenia since 2014 in our EMR s/p 2 units of pharesis plt: monitor cbc closely, consulted Heme/Onc Anemia of chronic renal disease: monitor cbc closely, EPO with HD ESRD on Hemodialysis: Nephrology following Afib on Eliquis: held Eliquis for thoracentesis, Chest pains with chronic elevated troponin: Cardiology is following Hypertension urgency: low salt diet, iv hydralazine prn History of Clostriodioides difficile colitis infection s/p oral Vancomycin 125 mg po QID x 10 days Hepatitis C Pleurx cath not done due to thrombocytopenia, so Heme/Onc consulted, d/w Dr. Box who will order Bone Marrow Bx as patient is pancytopenic and Ok for thoracentesis. History Interval history: Patient was seen and examined. Follow-up on current diagnosis of left pleural effusion. No overnight events reported to me. Patient denies any chest pain, shortness breath, nausea/vomiting or severe headaches. Imaging, nursing note, chart, labs and old chart reviewed. Discussed with patient. Hospitalist Physical - Physical exam Narrative exam: Gen: thin frial, chronic ill appearing, NAD, Awake, Alert, Orientated HEENT: NCAT, EOMI, PERRL, OP Clear Neck: supple, no adenopathy, no thyromegaly, no JVD CVS/Heart: RRR, normal S1S2, pulses present bilaterally Chest/Lungs: diminished left bs, Symmetrical chest expansion, good air entry right GI/Abdomen: soft, NTND, good bowel sounds, no guarding or rebound /Bladder: no suprapubic tenderness, no CVA or paraspinal tenderness Extermity/Skin: no c/c/e, no obvious rash MSK: FROM x 3, left forearm amputated Neuro: CN 2-12 grossly intact, no new focal deficits Psych: calm - Constitutional Vitals: Temp Pulse Resp BP Pulse Ox 97.9 F 69 18 137/89 100 03/14/19 03:41 03/14/19 03:41 03/14/19 03:41 03/14/19 03:41 03/14/19 03:41 General appearance: Present: no acute distress, well-nourished Results - Labs CBC & Chem 7: 03/14/19 05:44 03/14/19 05:44 Labs: Laboratory Last Values WBC 2.6 K/mm3 (4.5-11.0) L 03/14/19 05:44 RBC 3.30 M/mm3 (3.65-5.03) L 03/14/19 05:44 Hgb 10.4 gm/dl (11.8-15.2) L 03/14/19 05:44 Hct 32.1 % (35.5-45.6) L 03/14/19 05:44 MCV 98 fl (84-94) H 03/14/19 05:44 MCH 32 pg (28-32) 03/14/19 05:44 MCHC 32 % (32-34) 03/14/19 05:44 RDW 15.6 % (13.2-15.2) H 03/14/19 05:44 Plt Count 51 K/mm3 (140-440) L 03/14/19 05:44 Lymph % (Auto) 22.7 % (13.4-35.0) 03/12/19 05:26 Mower % (Auto) 8.3 % (0.0-7.3) H 03/12/19 05:26 Eos % (Auto) 2.4 % (0.0-4.3) 03/12/19 05:26 Baso % (Auto) 0.9 % (0.0-1.8) 03/12/19 05:26 Lymph # 0.6 K/mm3 (1.2-5.4) L 03/12/19 05:26 Mower # 0.2 K/mm3 (0.0-0.8) 03/12/19 05:26 Eos # 0.1 K/mm3 (0.0-0.4) 03/12/19 05:26 Baso # 0.0 K/mm3 (0.0-0.1) 03/12/19 05:26 Add Manual Diff Complete 03/10/19 04:52 Total Counted 100 03/10/19 04:52 Seg Neutrophils % 65.7 % (40.0-70.0) 03/12/19 05:26 Seg Neuts % (Manual) 60.0 % (40.0-70.0) 03/10/19 04:52 0 % 03/10/19 04:52 23.0 % (13.4-35.0) 03/10/19 04:52 Reactive Lymphs % (Man) 0 % 03/10/19 04:52 14.0 % (0.0-7.3) H 03/10/19 04:52 2.0 % (0.0-4.3) 03/10/19 04:52 1.0 % (0.0-1.8) 03/10/19 04:52 0 % 03/10/19 04:52 0 % 03/10/19 04:52 0 % 03/10/19 04:52 0 % 03/10/19 04:52 Nucleated RBC % Not Reportable 03/10/19 04:52 Seg Neutrophils # 1.7 K/mm3 (1.8-7.7) L 03/12/19 05:26 Seg Neutrophils # Man 1.5 K/mm3 (1.8-7.7) L 03/10/19 04:52 Band Neutrophils # 0.0 K/mm3 03/10/19 04:52 0.6 K/mm3 (1.2-5.4) L 03/10/19 04:52 Abs React Lymphs (Man) 0.0 K/mm3 03/10/19 04:52 0.4 K/mm3 (0.0-0.8) 03/10/19 04:52 0.1 K/mm3 (0.0-0.4) 03/10/19 04:52 0.0 K/mm3 (0.0-0.1) 03/10/19 04:52 0.0 K/mm3 03/10/19 04:52 0.0 K/mm3 03/10/19 04:52 0.0 K/mm3 03/10/19 04:52 Blast Cells # 0.0 K/mm3 03/10/19 04:52 WBC Morphology Not Reportable 03/10/19 04:52 Hypersegmented Neuts Not Reportable 03/10/19 04:52 Hyposegmented Neuts Not Reportable 03/10/19 04:52 Hypogranular Neuts Not Reportable 03/10/19 04:52 Not Reportable 03/10/19 04:52 Not Reportable 03/10/19 04:52 Not Reportable 03/10/19 04:52 Not Reportable 03/10/19 04:52 Not Reportable 03/10/19 04:52 Not Reportable 03/10/19 04:52 Not Reportable 03/10/19 04:52 Not Reportable 03/10/19 04:52 Plt Clumps, EDTA Not Reportable 03/10/19 04:52 Not Reportable 03/10/19 04:52 Not Reportable 03/10/19 04:52 Not Reportable 03/10/19 04:52 Plt Morphology Comment Not Reportable 03/10/19 04:52 RBC Morphology Normal 03/10/19 04:52 Dimorphic RBCs Not Reportable 03/10/19 04:52 Not Reportable 03/10/19 04:52 Not Reportable 03/10/19 04:52 Not Reportable 03/10/19 04:52 Not Reportable 03/10/19 04:52 Not Reportable 03/10/19 04:52 Not Reportable 03/10/19 04:52 Not Reportable 03/10/19 04:52 Not Reportable 03/10/19 04:52 Not Reportable 03/10/19 04:52 Not Reportable 03/10/19 04:52 Not Reportable 03/10/19 04:52 Not Reportable 03/10/19 04:52 Not Reportable 03/10/19 04:52 Not Reportable 03/10/19 04:52 Not Reportable 03/10/19 04:52 Not Reportable 03/10/19 04:52 Not Reportable 03/10/19 04:52 Not Reportable 03/10/19 04:52 Not Reportable 03/10/19 04:52 Acanthocytes (Spur) Not Reportable 03/10/19 04:52 Rouleaux Not Reportable 03/10/19 04:52 Not Reportable 03/10/19 04:52 Not Reportable 03/10/19 04:52 Not Reportable 03/10/19 04:52 Not Reportable 03/10/19 04:52 Hem Pathologist Commnt No 03/10/19 04:52 PT 16.5 Sec. (12.2-14.9) H 03/09/19 10:10 INR 1.37 (0.87-1.13) H 03/09/19 10:10 APTT 37.7 Sec. (24.2-36.6) H 03/09/19 10:10 Sodium 134 mmol/L (137-145) L 03/14/19 05:44 Potassium 5.1 mmol/L (3.6-5.0) H D 03/14/19 05:44 Chloride 97.0 mmol/L (98-107) L 03/14/19 05:44 Carbon Dioxide 26 mmol/L (22-30) 03/14/19 05:44 16 mmol/L 03/14/19 05:44 BUN 37 mg/dL (9-20) H 03/14/19 05:44 6.0 mg/dL (0.8-1.5) H 03/14/19 05:44 Estimated GFR 11 ml/min 03/14/19 05:44 6 % 03/14/19 05:44 Glucose 103 mg/dL (75-100) H 03/14/19 05:44 POC Glucose 98 (70-105) 03/13/19 20:41 Calcium 8.2 mg/dL (8.4-10.2) L 03/14/19 05:44 0.70 mg/dL (0.1-1.2) 03/07/19 21:30 0.2 mg/dL (0-0.2) 03/07/19 21:30 0.5 mg/dL 03/07/19 21:30 AST 28 units/L (5-40) 03/07/19 21:30 ALT 25 units/L (7-56) 03/07/19 21:30 135 units/L (35-129) H 03/07/19 21:30 0.266 ng/mL (0.00-0.029) H* 03/08/19 03:28 6.7 g/dL (6.3-8.2) 03/07/19 21:30 3.3 g/dL (3.9-5) L 03/07/19 21:30 1.0 % 03/07/19 21:30 Triglycerides 51 mg/dL (2-149) 03/07/19 21:30 Cholesterol 73 mg/dL (50-199) 03/07/19 21:30 28 mg/dL (50-130) L 03/07/19 21:30 43 mg/dL (40-59) 03/07/19 21:30 1.69 % 03/07/19 21:30 Hepatitis A IgM Ab Non-reactive (NonReactive) 03/13/19 19:29 Hep Bs Antigen Non-reactive (Negative) 03/13/19 19:29 Hep B Core IgM Ab Non-reactive (NonReactive) 03/13/19 19:29 Reactive (NonReactive) A 03/13/19 19:29 Blood Type O POSITIVE 03/11/19 11:20 Active Medications - Current Medications Current Medications: Generic Name Dose Route Start Last Admin Trade Name Freq PRN Reason Stop Dose Admin Acetaminophen 650 mg 03/07/19 23:22 03/09/19 23:24 Tylenol PO 650 mg Q4H PRN Administration Pain MILD(1-3)/Fever >100.5/DOUGLAS Acetaminophen/Hydrocodone Bitart 1 each 03/09/19 09:15 03/13/19 17:48 [place] 5/325 PO 1 each Q6H PRN Administration Pain, Moderate (4-6) Amlodipine Besylate 10 mg 03/09/19 10:00 03/13/19 09:42 Norvasc PO 10 mg DAILY BEAN Administration Atorvastatin Calcium 40 mg 03/09/19 22:00 03/13/19 21:59 Lipitor PO 40 mg QHS BEAN Administration Carvedilol 25 mg 03/09/19 10:00 03/13/19 22:00 Coreg PO 25 mg BID BEAN Administration Dextrose 50 ml 03/08/19 12:40 D50w (25gm) Syringe IV PRN PRN Hypoglycemia Diphenhydramine HCl 25 mg 03/09/19 11:15 03/14/19 05:35 Benadryl IV 25 mg Q6H PRN Administration Itching Epoetin Prashant 10,000 unit 03/09/19 09:15 03/12/19 12:15 Procrit SUB-Q 10,000 unit KATERYNA PRN Administration hemodialysis Famotidine 10 mg 03/09/19 10:00 03/13/19 21:59 Pepcid PO 10 mg BID BEAN Administration Hydralazine HCl 10 mg 03/08/19 02:02 03/09/19 15:20 Apresoline IV 10 mg Q4H PRN Administration Hypertension Hydralazine HCl 50 mg 03/09/19 10:00 03/13/19 22:01 Apresoline PO 50 mg BID BEAN Administration Sodium Chloride 100 mls @ 999 mls/hr 03/12/19 09:13 Nacl 0.9% IV KATERYNA PRN Hypotension Insulin Human Lispro 0 unit 03/08/19 16:30 03/13/19 22:01 Humalog SUB-Q Not Given ACHS [facility] Protocol Losartan Potassium 100 mg 03/09/19 13:00 03/13/19 09:40 Cozaar PO 100 mg QDAY BEAN Administration Morphine Sulfate 4 mg 03/08/19 09:33 03/13/19 05:36 Morphine IV 4 mg Q4H PRN Administration Pain , Severe (7-10) Ondansetron HCl 4 mg 03/07/19 23:22 03/12/19 14:03 Zofran IV 4 mg Q8H PRN Administration Nausea And Vomiting Oxycodone HCl 10 mg 03/09/19 10:24 03/13/19 22:07 Roxicodone PO 10 mg Q6H PRN Administration Pain , Severe (7-10) Sodium Chloride 10 ml 03/08/19 10:00 03/13/19 22:02 Sodium Chloride Flush Syringe 10 Ml IV 10 ml BID BEAN Administration Sodium Chloride 10 ml 03/07/19 23:22 Sodium Chloride Flush Syringe 10 Ml IV PRN PRN LINE FLUSH Tramadol HCl 50 mg 03/09/19 09:15 Ultram PO Q4H PRN Pain Nutrition/Malnutrition Assess - Dietary Evaluation Nutrition/Malnutrition Findings: Nutrition Notes Start: 03/08/19 09:52 Freq: Status: Active Protocol: Document 03/11/19 14:29 RM (Rec: 03/11/19 14:37 RM [id number]) Nutrition Notes Initial or Follow up Reassessment Current Diagnosis CKD (stage V CKD),COPD, Coronary Artery Disease,Heart Failure Other Pertinent Diagnosis HD,Afib,DVT,PulmonaryEdema, Pleural Effusion,Dialated Nonishemic Cardiopathy Current Diet Cardiac Labs/Tests K 3.8 (03/10/19) Pertinent Medications Reviewed Height 5 ft 9 in Weight 47.8 kg [place] Body Weight (kg) 72.72 BMI 15.5 Subjective/Other Information Pt is known to me from previous visits. Pt consistently requests Regular diet despite having been told the risks associated. Pt also does not like Nepro. Pt stated that he sometimes he eats bites of his meals and other times he eats 50%. Burn Absent Trauma Absent Minimum of two criteria Yes Energy Intake (non-severe) <75% Estimated Energy Requirement >7 days Interpretation of Weight Loss (severe) >10% in 6 months Body Fat Depletion Moderate depletion (severe) Muscle Mass Moderate Depletion (severe) #1 Nutrition Diagnosis Malnutrition Diagnosis Progress(for reassessment Continues documentation) Is patient on ventilator? No Is Patient Ambulatory and/or Out of Bed No REE-([facility]-confined to bed) 1474.296 Kcal/Kg value to use for calculation 41 Approximate Energy Requirements Using 1960 kcal/Kg Calculation Used for Recommendations Kcal/kg Additional Notes PRO needs: 60-75g (1.2-1.5g/kg ) Fluid needs:1-1.5 L/day ( Anuric ESRD-HD) Nutrition Intervention Change Diet Order: Regular Add Supplement/Snack (indicate name/kcal Ensure Clear Mixed Marie BID /protein ) Provides kCal: 480 Provides Protein (gm) 16 Goal #1 Meet atleast 75% PRO/kcal needs via PO and ONS intakes Goal #2 Wt gain/maintenance Follow-Up By: 03/14/19 Additional Comments Follow for PO and ONS intakes, renal labs
--- NOTE | 2019-03-14 07:26 | Hem/Onc Progress Note ---
Assessment and Plan 1. Leukopenia, neutrophils is 1.7 in the recent past. The cause of low white cell count will be multifactorial, medication may have a role. It may also be a marrow issue. 2. Anemia. MCV is on the higher side. B12, folate was normal. This may be a marrow issue or medication related or radicular related. 3. Thrombocytopenia. Multiple differentials include medications versus production issues. CT scan did not show any splenomegaly in the past. 4. Renal failure, on dialysis. 5. Pleural effusion, testing was negative on pathology. 6. In April 2018, HIT antibodies was negative. 7. History of congestive heart failure. 8. Atrial fibrillation, on Eliquis. 9. Hypertension. 10. Hyperlipidemia. 11. History of C. diff, status post vancomycin. We have the option of looking into a bone marrow biopsy for the cytopenia, further thoracentesis. We have option of transfusion support and doing the procedure if that is needed at this time. bmbx d/w dr gandhi - Patient Problems (1) Thrombocytopenia Current Visit: No Status: Acute Subjective Date of service: 03/14/19 Principal diagnosis: low plt Interval history: no chest pain Objective - Exam Narrative Exam: Pain - generalized General appearance - comfortable Performance status limited self care Eyes - no icterus, ENT - no bleeding LNs cervical not palpable Neck - no LN Respiratory Normal Breath sounds - CTA CVS S1 S2 + Extremities no calf tenderness General GI Soft Rectal deferred male - deferred Skin warm - HD cath rt chest Musculoskeletal moves extremities - left below elbow amputation Neurologically awake - oriented - Constitutional Vitals: Last Vital Signs Temp 97.9 F 03/14/19 03:41 Pulse 69 03/14/19 03:41 Resp 18 03/14/19 03:41 BP 137/89 03/14/19 03:41 Pulse Ox 100 03/14/19 03:41 - Labs Lab Results: Laboratory Results - last 24 hr 03/13/19 03/13/19 03/13/19 08:11 11:46 17:08 WBC RBC Hgb Hct MCV MCH MCHC RDW Plt Count Sodium Potassium Chloride Carbon Dioxide Anion Gap BUN Creatinine Estimated GFR BUN/Creatinine Ratio Glucose POC Glucose 103 114 H 86 Calcium Hepatitis A IgM Ab Hep Bs Antigen Hep B Core IgM Ab Hepatitis C Antibody 03/13/19 03/13/19 03/14/19 19:29 20:41 05:44 WBC 2.6 L RBC 3.30 L Hgb 10.4 L Hct 32.1 L MCV 98 H MCH 32 MCHC 32 RDW 15.6 H Plt Count 51 L Sodium Potassium Chloride Carbon Dioxide Anion Gap BUN Creatinine Estimated GFR BUN/Creatinine Ratio Glucose POC Glucose 98 Calcium Hepatitis A IgM Ab Non-reactive Hep Bs Antigen Non-reactive Hep B Core IgM Ab Non-reactive Hepatitis C Antibody Reactive A 03/14/19 05:44 WBC RBC Hgb Hct MCV MCH MCHC RDW Plt Count Sodium 134 L Potassium 5.1 H D Chloride 97.0 L Carbon Dioxide 26 Anion Gap 16 BUN 37 H Creatinine 6.0 H Estimated GFR 11 BUN/Creatinine Ratio 6 Glucose 103 H POC Glucose Calcium 8.2 L Hepatitis A IgM Ab Hep Bs Antigen Hep B Core IgM Ab Hepatitis C Antibody Medications & Allergies - Medications Allergies/Adverse Reactions: Allergies aspirin Allergy (Verified 02/20/19 22:06) Unknown stomach cramps pork derived (porcine) Allergy (Verified 02/20/19 22:06) Rash venom-honey bee [bee venom (honey bee)] Allergy (Verified 02/20/19 22:06) Anaphylaxis Pork/Porcine Containing Products Adverse Reaction (Severe, Verified 02/20/19 22:06) Nausea,VOMITING Home Medications: Home Medications Medication Instructions Recorded Confirmed Last Taken Type AtorvaSTATin [Lipitor] 40 mg PO QHS #30 tablet 12/29/18 03/07/19 01/01/19 Rx Famotidine [Pepcid] 10 mg PO BID #15 tablet 12/29/18 03/07/19 01/01/19 Rx amLODIPine [Norvasc] 10 mg PO DAILY #30 tablet 12/29/18 03/07/19 01/01/19 Rx hydrALAZINE [Apresoline TAB] 50 mg PO BID #60 tablet 12/29/18 03/07/19 01/01/19 Rx Carvedilol [Coreg] 25 mg PO BID #60 tablet 01/17/19 03/07/19 Unknown Rx Oxycodone HCl [oxyCODONE] 10 mg PO Q6H PRN #10 tablet 01/23/19 03/07/19 Unknown Rx diphenhydrAMINE [Benadryl CAP] 50 mg PO Q3D PRN 01/30/19 03/07/19 Unknown History Apixaban [Eliquis] 2.5 mg PO Q12HR tablet 02/02/19 03/07/19 Unknown Rx Epoetin Prashant 10,000 Unit [Procrit] 10,000 unit SUB-Q KATERYNA PRN vial 02/02/19 03/07/19 Unknown Rx Lisinopril [Zestril TAB] 5 mg PO QDAY #30 tablet 02/02/19 03/07/19 Unknown Rx HYDROcodone/APAP 5-325 [[place] 1 each PO Q6HR PRN #12 tablet 02/21/19 03/07/19 Unknown Rx 5/325] Ondansetron [Zofran Odt] 4 mg PO Q8HR PRN #14 tab.rapdis 02/28/19 03/07/19 Unknown Rx traMADol [Ultram 50 MG tab] 50 mg PO Q4HR PRN #14 tablet 02/28/19 03/07/19 Unknown Rx Active Medications: Generic Name Dose Route Start Last Admin Trade Name Freq PRN Reason Stop Dose Admin Acetaminophen 650 mg 03/07/19 23:22 03/09/19 23:24 Tylenol PO 650 mg Q4H PRN Administration Pain MILD(1-3)/Fever >100.5/DOUGLAS Acetaminophen/Hydrocodone Bitart 1 each 03/09/19 09:15 03/13/19 17:48 [place] 5/325 PO 1 each Q6H PRN Administration Pain, Moderate (4-6) Amlodipine Besylate 10 mg 03/09/19 10:00 03/13/19 09:42 Norvasc PO 10 mg DAILY BEAN Administration Atorvastatin Calcium 40 mg 03/09/19 22:00 03/13/19 21:59 Lipitor PO 40 mg QHS BEAN Administration Carvedilol 25 mg 03/09/19 10:00 03/13/19 22:00 Coreg PO 25 mg BID BEAN Administration Dextrose 50 ml 03/08/19 12:40 D50w (25gm) Syringe IV PRN PRN Hypoglycemia Diphenhydramine HCl 25 mg 03/09/19 11:15 03/14/19 05:35 Benadryl IV 25 mg Q6H PRN Administration Itching Epoetin Prashant 10,000 unit 03/09/19 09:15 03/12/19 12:15 Procrit SUB-Q 10,000 unit KATERYNA PRN Administration hemodialysis Famotidine 10 mg 03/09/19 10:00 03/13/19 21:59 Pepcid PO 10 mg BID BEAN Administration Hydralazine HCl 10 mg 03/08/19 02:02 03/09/19 15:20 Apresoline IV 10 mg Q4H PRN Administration Hypertension Hydralazine HCl 50 mg 03/09/19 10:00 03/13/19 22:01 Apresoline PO 50 mg BID BEAN Administration Sodium Chloride 100 mls @ 999 mls/hr 03/12/19 09:13 Nacl 0.9% IV KATERYNA PRN Hypotension Insulin Human Lispro 0 unit 03/08/19 16:30 03/13/19 22:01 Humalog SUB-Q Not Given ACHS [facility] Protocol Losartan Potassium 100 mg 03/09/19 13:00 03/13/19 09:40 Cozaar PO 100 mg QDAY BEAN Administration Morphine Sulfate 4 mg 03/08/19 09:33 03/13/19 05:36 Morphine IV 4 mg Q4H PRN Administration Pain , Severe (7-10) Ondansetron HCl 4 mg 03/07/19 23:22 03/12/19 14:03 Zofran IV 4 mg Q8H PRN Administration Nausea And Vomiting Oxycodone HCl 10 mg 03/09/19 10:24 03/13/19 22:07 Roxicodone PO 10 mg Q6H PRN Administration Pain , Severe (7-10) Sodium Chloride 10 ml 03/08/19 10:00 03/13/19 22:02 Sodium Chloride Flush Syringe 10 Ml IV 10 ml BID BEAN Administration Sodium Chloride 10 ml 03/07/19 23:22 Sodium Chloride Flush Syringe 10 Ml IV PRN PRN LINE FLUSH Tramadol HCl 50 mg 03/09/19 09:15 Ultram PO Q4H PRN Pain
[2019-03-14] MEDS: INSULIN LISPRO 100 UNIT/ML SUB-Q SCH ×5 (07:30→22:53)
--- NOTE | 2019-03-14 08:49 | Consultation ---
REFERRED BY: Adolfo Dash MD REASON FOR CONSULTATION: Thrombocytopenia. HISTORY OF PRESENT ILLNESS: I saw the patient, a 72-year-old male with multiple medical histories in the medical floor. The patient has past history of congestive heart failure, recurrent pleural effusions, atrial fibrillation, ESRD on hemodialysis, dilated nonischemic cardiomyopathy, atrial fibrillation on Eliquis, ejection fraction of 25-30%, history of DVT, post-PTSD, right upper extremity chronic ulcer, C. diff, hypertension, and history of left below elbow surgery. There was a plan for PleurX catheter; however, the platelets have been running low. The trend of platelets show platelets have been low since 2014, but recently it is showing less than 100. I have been asked to evaluate the patient for same. The patient was admitted on 03/07/2019 for chest pain. The patient was given sublingual nitroglycerin. The symptoms of chest pain started after dialysis and when he went home, he slept and woke up with chest pain, shortness of breath and sweating. Chest x-ray had shown large pleural effusion and mild interstitial pulmonary edema. The patient has been admitted for pleural effusion management. During this admission, the patient has been seen by Cardiology team, ICU team, Interventional Radiology and Nephrology team. The patient denies any hematemesis, hematochezia or other bleeding. PAST MEDICAL HISTORY: As above. PAST SURGICAL HISTORY: Left arm amputation with hemodialysis catheter insertion. SOCIAL HISTORY: Not contributory. FAMILY HISTORY: Noncontributory. ALLERGIES: ASPIRIN, PORK- RELATED MEDICINES AND HONEY BEE VENOM. HOME MEDICATIONS: Atorvastatin, amlodipine, hydralazine, oxycodone, Eliquis 2.5 q. 12, Procrit and Zofran. PHYSICAL EXAMINATION: VITAL SIGNS: Temperature 98, pulse 72, respirations 18, BP 121/81. HEENT: Mild pallor, no icterus. NECK: No neck lymph nodes. HEART: S1, S2. LUNGS: Decreased air entry. ABDOMEN: Soft. EXTREMITIES: No calf tenderness. Left arm amputation stump seen. NEUROLOGIC: Alert, awake. LABORATORY DATA: White cell count is 2.6, hemoglobin 10.7, MCV 100, platelet 74. Potassium 3.8, creatinine 4, calcium 8.9. Serum iron in December was 59, ferritin 430, B12 of 700, folate 12. HIV negative. RADIOLOGY: Abdomen CT was done in 01/2018 did not show any splenomegaly. CT chest was done in December, no PE. CT chest was also done on 03/09/2019, which shows left pleural effusion and cardiomegaly. ASSESSMENT AND PLAN: 1. Leukopenia, neutrophils is 1.7 in the recent past. The cause of low white cell count will be multifactorial, medication may have a role. It may also be a marrow issue. 2. Anemia. MCV is on the higher side. B12, folate was normal. This may be a marrow issue or medication related or radicular related. 3. Thrombocytopenia. Multiple differentials include medications versus production issues. CT scan did not show any splenomegaly in the past. 4. Renal failure, on dialysis. 5. Pleural effusion, testing was negative on pathology. 6. In April 2018, HIT antibodies was negative. 7. History of congestive heart failure. 8. Atrial fibrillation, on Eliquis. 9. Hypertension. 10. Hyperlipidemia. 11. History of C. diff, status post vancomycin. We have the option of looking into a bone marrow biopsy for the cytopenia, further thoracentesis. We have option of transfusion support and doing the procedure if that is needed at this time. JOB# [id number] ANGELICA/TAMIE
--- NOTE | 2019-03-14 08:53 | Progress Note ---
Assessment and Plan Recurrent Left pleural effusion Atypical chest pain no ischemia by MPI 01/2019 End-stage renal disease on hemodialysis Chronic atrial fibrillation on low dose eliquis therapy as an outpatient; currently on hold. Dilated nonischemic cardiomyopathy ejection fraction 25-30% by echocardiogram 01/2019 DM type II PVD s/p left arm amputation Hypertension Thrombocytopenia, chronic s/p platelet transfusion Non-obstructive CAD [facility] 01/2017 revealed non-obstructive, single vessel disease of the proximal LAD recommended for medical therapy. Recommend: Continue medical therapy for nonischemic cardiomyopathy, chronic systolic heart failure and non-obstructive CAD as tolerated. Subjective Date of service: 03/14/19 Principal diagnosis: ESRd Afib L pleural effusion Interval history: No cardiac events. For planned thoracentesis. Objective Vital Signs Temp Pulse Resp BP Pulse Ox 03/14/19 08:43 98.2 F 66 18 138/96 97 03/14/19 03:41 97.9 F 69 18 137/89 100 03/13/19 23:08 98.3 F 72 18 121/81 96 03/13/19 22:01 96 H 118/77 03/13/19 22:00 96 H 118/77 03/13/19 20:59 67 03/13/19 19:22 97.6 F 69 18 118/77 94 03/13/19 17:00 98.5 F 73 18 121/86 100 03/13/19 11:56 97.7 F 68 18 124/87 100 03/13/19 11:25 100 03/13/19 09:42 70 120/87 03/13/19 09:41 70 120/87 03/13/19 09:40 70 120/87 - Physical Examination General: No Apparent Distress HEENT: Positive: PERRL Neck: Positive: trachea midline Cardiac: Positive: irregularly irregular Lungs: Positive: Decreased Breath Sounds Neuro: Positive: Grossly Intact Extremities: Absent: edema - Labs and Meds CBC 03/14/19 Range/Units 05:44 WBC 2.6 L (4.5-11.0) K/mm3 RBC 3.30 L (3.65-5.03) M/mm3 Hgb 10.4 L (11.8-15.2) gm/dl Hct 32.1 L (35.5-45.6) % Plt Count 51 L (140-440) K/mm3 Comprehensive Metabolic Panel 03/14/19 Range/Units 05:44 Sodium 134 L (137-145) mmol/L Potassium 5.1 H D (3.6-5.0) mmol/L Chloride 97.0 L (98-107) mmol/L Carbon Dioxide 26 (22-30) mmol/L BUN 37 H (9-20) mg/dL Creatinine 6.0 H (0.8-1.5) mg/dL Glucose 103 H (75-100) mg/dL Calcium 8.2 L (8.4-10.2) mg/dL
[2019-03-14] MEDS ORDERED: HYDROmorphone 1 MG/1 ML INJ IV NR (10:00)
[2019-03-14] MEDS: hydrALAZINE 25 MG TAB PO SCH ×2 (10:00→22:54)
[2019-03-14] MEDS: amLODIPine 10 MG TAB PO SCH (10:00)
[2019-03-14] MEDS: FAMOTIDINE 10 MG TAB PO SCH ×2 (10:00→22:54)
[2019-03-14] MEDS ORDERED: ONDANSETRON 4 MG/2 ML INJ IV NR (10:00)
[2019-03-14] MEDS: carvediloL 25 MG TAB PO SCH ×2 (10:00→22:54)
[2019-03-14] MEDS: LOSARTAN 50 MG TAB PO SCH (10:00)
--- NOTE | 2019-03-14 10:05 | Progress Note ---
Assessment and Plan 1. ESRD: Continue hemodialysis three times a week, TTS schedule. 2. FEN: Hyperkalemia, HD today. Monitor. 3. L sided pleural effusion: Followed by Pulmonary and Vascular. 4. A.fib: Rate controlled. 5. HTN. 6. Anemia: Epogen if needed. 7. PAD. Examination: General appearance: well-developed, appears stated age, no distress EENT: ATNC, ELENI, mucous membranes moist, hearing intact, vision intact Neck: supple Respiratory: Clear to auscultate, decreased breath sound on the L side Cardiology: irregular, S1S2, no murmur Gastrointestinal: normoactive bowel sounds, no tenderness, no distended Integumentary: no rash, warm and dry Neurologic: no focal deficit, no asterixis, alert and oriented x3 Musculoskeletal: no edema, L forearm amputated Hemodialysis access: R IJ tunnel catheter Subjective Date of service: 03/14/19 Principal diagnosis: ESRd Afib L pleural effusion Interval history: Patient was seen and examined at the bedside. No new complaint. Objective - Vital Signs Vital signs: Vital Signs - 12hr 03/13/19 03/14/19 03/14/19 23:08 03:41 08:43 Temperature 98.3 F 97.9 F 98.2 F Pulse Rate 72 69 66 Respiratory 18 18 18 Rate Blood Pressure 121/81 137/89 138/96 O2 Sat by Pulse 96 100 97 Oximetry - Lab 03/14/19 05:44 03/14/19 05:44 Most recent lab results Calcium 8.2 mg/dL (8.4-10.2) L 03/14/19 05:44 Medications & Allergies - Medications Allergies/Adverse Reactions: Allergies aspirin Allergy (Verified 02/20/19 22:06) Unknown stomach cramps pork derived (porcine) Allergy (Verified 02/20/19 22:06) Rash venom-honey bee [bee venom (honey bee)] Allergy (Verified 02/20/19 22:06) Anaphylaxis Pork/Porcine Containing Products Adverse Reaction (Severe, Verified 02/20/19 22:06) Nausea,VOMITING Home Medications: Home Medications Medication Instructions Recorded Confirmed Last Taken Type AtorvaSTATin [Lipitor] 40 mg PO QHS #30 tablet 12/29/18 03/07/19 01/01/19 Rx Famotidine [Pepcid] 10 mg PO BID #15 tablet 12/29/18 03/07/19 01/01/19 Rx amLODIPine [Norvasc] 10 mg PO DAILY #30 tablet 12/29/18 03/07/19 01/01/19 Rx hydrALAZINE [Apresoline TAB] 50 mg PO BID #60 tablet 12/29/18 03/07/19 01/01/19 Rx Carvedilol [Coreg] 25 mg PO BID #60 tablet 01/17/19 03/07/19 Unknown Rx Oxycodone HCl [oxyCODONE] 10 mg PO Q6H PRN #10 tablet 01/23/19 03/07/19 Unknown Rx diphenhydrAMINE [Benadryl CAP] 50 mg PO Q3D PRN 01/30/19 03/07/19 Unknown History Apixaban [Eliquis] 2.5 mg PO Q12HR tablet 02/02/19 03/07/19 Unknown Rx Epoetin Prashant 10,000 Unit [Procrit] 10,000 unit SUB-Q KATERYNA PRN vial 02/02/19 03/07/19 Unknown Rx Lisinopril [Zestril TAB] 5 mg PO QDAY #30 tablet 02/02/19 03/07/19 Unknown Rx HYDROcodone/APAP 5-325 [[place] 1 each PO Q6HR PRN #12 tablet 02/21/19 03/07/19 Unknown Rx 5/325] Ondansetron [Zofran Odt] 4 mg PO Q8HR PRN #14 tab.rapdis 02/28/19 03/07/19 Unknown Rx traMADol [Ultram 50 MG tab] 50 mg PO Q4HR PRN #14 tablet 02/28/19 03/07/19 Unknown Rx Active Medications: Generic Name Dose Route Start Last Admin Trade Name Freq PRN Reason Stop Dose Admin Acetaminophen 650 mg 03/07/19 23:22 03/09/19 23:24 Tylenol PO 650 mg Q4H PRN Administration Pain MILD(1-3)/Fever >100.5/DOUGLAS Acetaminophen/Hydrocodone Bitart 1 each 03/09/19 09:15 03/13/19 17:48 [place] 5/325 PO 1 each Q6H PRN Administration Pain, Moderate (4-6) Amlodipine Besylate 10 mg 03/09/19 10:00 03/13/19 09:42 Norvasc PO 10 mg DAILY BEAN Administration Atorvastatin Calcium 40 mg 03/09/19 22:00 03/13/19 21:59 Lipitor PO 40 mg QHS BEAN Administration Carvedilol 25 mg 03/09/19 10:00 03/13/19 22:00 Coreg PO 25 mg BID BEAN Administration Dextrose 50 ml 03/08/19 12:40 D50w (25gm) Syringe IV PRN PRN Hypoglycemia Diphenhydramine HCl 25 mg 03/09/19 11:15 03/14/19 05:35 Benadryl IV 25 mg Q6H PRN Administration Itching Epoetin Prashant 10,000 unit 03/09/19 09:15 03/12/19 12:15 Procrit SUB-Q 10,000 unit KATERYNA PRN Administration hemodialysis Famotidine 10 mg 03/09/19 10:00 03/13/19 21:59 Pepcid PO 10 mg BID BEAN Administration Hydralazine HCl 10 mg 03/08/19 02:02 03/09/19 15:20 Apresoline IV 10 mg Q4H PRN Administration Hypertension Hydralazine HCl 50 mg 03/09/19 10:00 03/13/19 22:01 Apresoline PO 50 mg BID BEAN Administration Hydromorphone HCl 1 mg 03/14/19 10:00 Dilaudid IV 03/14/19 15:00 ONCE NR Sodium Chloride 100 mls @ 999 mls/hr 03/12/19 09:13 Nacl 0.9% IV KATERYNA PRN Hypotension Insulin Human Lispro 0 unit 03/08/19 16:30 03/13/19 22:01 Humalog SUB-Q Not Given ACHS [facility] Protocol Losartan Potassium 100 mg 03/09/19 13:00 03/13/19 09:40 Cozaar PO 100 mg QDAY BEAN Administration Morphine Sulfate 4 mg 03/08/19 09:33 03/13/19 05:36 Morphine IV 4 mg Q4H PRN Administration Pain , Severe (7-10) Ondansetron HCl 4 mg 03/07/19 23:22 03/12/19 14:03 Zofran IV 4 mg Q8H PRN Administration Nausea And Vomiting Ondansetron HCl 4 mg 03/14/19 10:00 Zofran IV 03/14/19 15:00 ONCE NR Oxycodone HCl 10 mg 03/09/19 10:24 03/13/19 22:07 Roxicodone PO 10 mg Q6H PRN Administration Pain , Severe (7-10) Sodium Chloride 10 ml 03/08/19 10:00 03/13/19 22:02 Sodium Chloride Flush Syringe 10 Ml IV 10 ml BID BEAN Administration Sodium Chloride 10 ml 03/07/19 23:22 Sodium Chloride Flush Syringe 10 Ml IV PRN PRN LINE FLUSH Tramadol HCl 50 mg 03/09/19 09:15 Ultram PO Q4H PRN Pain
--- NOTE | 2019-03-14 10:34 | Event Note ---
Date: 03/14/19 Contacted for BM biopsy. Reviewed orders and saw CT guided biopsy was ordered appropriately and patient NPO. Please coordinate with diagnostic radiology.
--- NOTE | 2019-03-14 12:19 | Progress Note ---
Assessment and Plan 72 y/o with recurrent left sided pleural effusion. No new recs from a pulmonary standpoint. 1. No Pleurx. 2. No family at bedside. I have never met or son, however patient states that could manage pleurx. Im not sure about this as he has told me in the past that she would not be able to help him 3. patient may not be able to obtain pleurx for medical reasons. May have to resort to continued thoracentesis. This could be set up as an out patient from his PCP office if necessary. 4. Will continue to follow. Subjective Date of service: 03/14/19 Principal diagnosis: ESRd Afib L pleural effusion Interval history: No acute events. Breathing appears stable Objective Vital Signs - 12hr 03/14/19 03/14/19 03/14/19 03:41 08:43 09:20 Temperature 97.9 F 98.2 F 98.2 F Pulse Rate 69 66 75 Respiratory 18 18 18 Rate Blood Pressure 137/89 138/96 129/64 O2 Sat by Pulse 100 97 Oximetry 03/14/19 03/14/19 03/14/19 09:35 09:45 10:00 Temperature Pulse Rate 73 70 71 Respiratory Rate Blood Pressure 131/85 129/64 153/84 O2 Sat by Pulse Oximetry 03/14/19 03/14/19 03/14/19 10:15 10:30 10:45 Temperature Pulse Rate 70 75 81 Respiratory Rate Blood Pressure 126/91 140/93 130/76 O2 Sat by Pulse Oximetry 03/14/19 03/14/19 03/14/19 11:00 11:15 11:30 Temperature Pulse Rate 69 79 65 Respiratory Rate Blood Pressure 142/91 148/88 175/83 O2 Sat by Pulse Oximetry Constitutional: no acute distress, alert Eyes: non-icteric ENT: oropharynx moist Neck: supple Effort: normal Ascultation: Left: diminished breath sounds Percussion: Left: dull Tactile fremitus: Right: normal Cardiovascular: regular rate and rhythm Gastrointestinal: normoactive bowel sounds, soft Extremities: no cyanosis Neurologic: normal mental status Psychiatric: mood appropriate CBC and BMP: 03/14/19 05:44 03/14/19 05:44 ABG, PT/INR, D-dimer: PT/INR, D-dimer PT 16.5 Sec. (12.2-14.9) H 03/09/19 10:10 INR 1.37 (0.87-1.13) H 03/09/19 10:10 Abnormal lab findings: Abnormal Labs 03/07/19 03/07/19 03/07/19 21:30 21:30 21:30 WBC 3.0 L RBC 3.54 L Hgb 11.5 L Hct 35.1 L MCV 99 H MCH 33 H RDW 15.6 H Plt Count 67 L [place] % (Auto) 9.7 H Lymph # 0.7 L Monocytes % (Manual) Seg Neutrophils # Seg Neutrophils # Man Lymphocytes # (Manual) PT INR APTT Sodium 136 L Potassium Chloride BUN Creatinine 3.6 H Glucose POC Glucose Calcium Alkaline Phosphatase 135 H Troponin T 0.270 H* Albumin 3.3 L LDL Cholesterol Direct 28 L Hepatitis C Antibody 03/07/19 03/08/19 03/08/19 22:59 03:28 21:46 WBC RBC Hgb Hct MCV MCH RDW Plt Count [place] % (Auto) Lymph # Monocytes % (Manual) Seg Neutrophils # Seg Neutrophils # Man Lymphocytes # (Manual) PT INR APTT Sodium Potassium Chloride BUN Creatinine Glucose POC Glucose 118 H Calcium Alkaline Phosphatase Troponin T 0.294 H* 0.266 H* Albumin LDL Cholesterol Direct Hepatitis C Antibody 03/09/19 03/09/19 03/10/19 10:10 10:10 04:52 WBC 2.5 L RBC 3.31 L Hgb 10.7 L Hct 32.7 L D MCV 99 H MCH RDW 15.8 H Plt Count 79 L 74 L [place] % (Auto) Lymph # Monocytes % (Manual) 14.0 H Seg Neutrophils # Seg Neutrophils # Man 1.5 L Lymphocytes # (Manual) 0.6 L PT 16.5 H INR 1.37 H APTT 37.7 H Sodium Potassium Chloride BUN Creatinine Glucose POC Glucose Calcium Alkaline Phosphatase Troponin T Albumin LDL Cholesterol Direct Hepatitis C Antibody 03/10/19 03/11/19 03/11/19 04:52 06:10 20:40 WBC RBC Hgb 10.5 L Hct 31.9 L MCV MCH RDW Plt Count 67 L [place] % (Auto) Lymph # Monocytes % (Manual) Seg Neutrophils # Seg Neutrophils # Man Lymphocytes # (Manual) PT INR APTT Sodium Potassium Chloride BUN Creatinine 4.0 H Glucose POC Glucose 122 H Calcium Alkaline Phosphatase Troponin T Albumin LDL Cholesterol Direct Hepatitis C Antibody 03/12/19 03/12/19 03/12/19 05:26 17:03 20:33 WBC 2.6 L RBC 3.29 L Hgb 10.7 L Hct 32.9 L MCV 100 H MCH 33 H RDW 15.8 H Plt Count 74 L [place] % (Auto) 8.3 H Lymph # 0.6 L Monocytes % (Manual) Seg Neutrophils # 1.7 L Seg Neutrophils # Man Lymphocytes # (Manual) PT INR APTT Sodium Potassium Chloride BUN Creatinine Glucose POC Glucose 129 H 122 H Calcium Alkaline Phosphatase Troponin T Albumin LDL Cholesterol Direct Hepatitis C Antibody 03/13/19 03/13/19 03/13/19 05:40 11:46 19:29 WBC RBC Hgb 10.3 L Hct 33.4 L MCV MCH RDW Plt Count 47 L [place] % (Auto) Lymph # Monocytes % (Manual) Seg Neutrophils # Seg Neutrophils # Man Lymphocytes # (Manual) PT INR APTT Sodium Potassium Chloride BUN Creatinine Glucose POC Glucose 114 H Calcium Alkaline Phosphatase Troponin T Albumin LDL Cholesterol Direct Hepatitis C Antibody Reactive A 03/14/19 03/14/19 05:44 05:44 WBC 2.6 L RBC 3.30 L Hgb 10.4 L Hct 32.1 L MCV 98 H MCH RDW 15.6 H Plt Count 51 L [place] % (Auto) Lymph # Monocytes % (Manual) Seg Neutrophils # Seg Neutrophils # Man Lymphocytes # (Manual) PT INR APTT Sodium 134 L Potassium 5.1 H D Chloride 97.0 L BUN 37 H Creatinine 6.0 H Glucose 103 H POC Glucose Calcium 8.2 L Alkaline Phosphatase Troponin T Albumin LDL Cholesterol Direct Hepatitis C Antibody
[2019-03-14] MEDS: EPOETIN ALFA 10,000 UNIT/1 ML INJ SUB-Q PRN (12:56)
[2019-03-14] MEDS: oxyCODONE 5 MG TAB PO PRN ×2 (14:55→19:07)
[2019-03-14] MEDS ORDERED: SODIUM CHLORIDE*PRIMING MACHINE ONLY FOR DIALYSIS MC ONE (16:40)
--- NOTE | 2019-03-14 18:03 | XRay Report ---
CHEST 1 VIEW INDICATION: post thoracentesis COMPARISON: 03/07/2019 FINDINGS: Support devices: Unchanged. Heart: Enlarged but stable Lungs/Pleura: Left pleural effusion is significantly reduced. No pneumothorax. Mild, diffuse intersti tial disease, unchanged. IMPRESSION: 1. No pneumothorax following left thoracentesis. Signer Name: Lc Cruz MD Signed: 03/14/2019 5:58 PM Workstation Name: [id number]
[2019-03-15] MEDS: oxyCODONE 5 MG TAB PO PRN ×3 (01:06→21:56)
[2019-03-15] MEDS: diphenhydrAMINE 50 MG/ML VIAL IV PRN ×3 (01:06→21:55)
--- NOTE | 2019-03-15 06:33 | Hem/Onc Progress Note ---
Assessment and Plan 1. Leukopenia, neutrophils is 1.7 in the recent past. The cause of low white cell count will be multifactorial, medication may have a role. It may also be a marrow issue. 2. Anemia. MCV is on the higher side. B12, folate was normal. This may be a marrow issue or medication related or radicular related. 3. Thrombocytopenia. Multiple differentials include medications versus production issues. CT scan did not show any splenomegaly in the past. 4. Renal failure, on dialysis. 5. Pleural effusion, testing was negative on pathology. 6. In April 2018, HIT antibodies was negative. 7. History of congestive heart failure. 8. Atrial fibrillation, on Eliquis. 9. Hypertension. 10. Hyperlipidemia. 11. History of C. diff, status post vancomycin. We have the option of looking into a bone marrow biopsy for the cytopenia, further thoracentesis. We have option of transfusion support and doing the procedure if that is needed at this time. bmbx 03/15 - Patient Problems (1) Thrombocytopenia Current Visit: No Status: Acute Subjective Date of service: 03/15/19 Principal diagnosis: low plt Interval history: due bmbx Objective - Exam Narrative Exam: Pain - left sided pain - chest and abdomen and shoulder General appearance - emaciated Performance status limited self care Eyes - no icterus, ENT - no bleeding LNs cervical not palpable Neck - no LN Respiratory Normal Breath sounds - CTA CVS S1 S2 + Extremities no calf tenderness General GI Soft Rectal deferred male - deferred Skin warm - HD cath rt chest Musculoskeletal moves extremities - left below elbow amputation Neurologically awake - oriented - Constitutional Vitals: Last Vital Signs Temp 99.8 F H 03/15/19 04:42 Pulse 95 H 03/15/19 04:42 Resp 18 03/15/19 04:42 BP 126/85 03/15/19 04:42 Pulse Ox 100 03/15/19 04:42 - Labs Lab Results: Laboratory Results - last 24 hr 03/14/19 03/14/19 03/14/19 05:44 08:56 18:34 Sodium 134 L Potassium 5.1 H D Chloride 97.0 L Carbon Dioxide 26 Anion Gap 16 BUN 37 H Creatinine 6.0 H Estimated GFR 11 BUN/Creatinine Ratio 6 Glucose 103 H POC Glucose 91 87 Calcium 8.2 L 03/14/19 22:56 Sodium Potassium Chloride Carbon Dioxide Anion Gap BUN Creatinine Estimated GFR BUN/Creatinine Ratio Glucose POC Glucose 134 H Calcium Medications & Allergies - Medications Allergies/Adverse Reactions: Allergies aspirin Allergy (Verified 02/20/19 22:06) Unknown stomach cramps pork derived (porcine) Allergy (Verified 02/20/19 22:06) Rash venom-honey bee [bee venom (honey bee)] Allergy (Verified 02/20/19 22:06) Anaphylaxis Pork/Porcine Containing Products Adverse Reaction (Severe, Verified 02/20/19 22:06) Nausea,VOMITING Home Medications: Home Medications Medication Instructions Recorded Confirmed Last Taken Type AtorvaSTATin [Lipitor] 40 mg PO QHS #30 tablet 12/29/18 03/07/19 01/01/19 Rx Famotidine [Pepcid] 10 mg PO BID #15 tablet 12/29/18 03/07/19 01/01/19 Rx amLODIPine [Norvasc] 10 mg PO DAILY #30 tablet 12/29/18 03/07/19 01/01/19 Rx hydrALAZINE [Apresoline TAB] 50 mg PO BID #60 tablet 12/29/18 03/07/19 01/01/19 Rx Carvedilol [Coreg] 25 mg PO BID #60 tablet 01/17/19 03/07/19 Unknown Rx Oxycodone HCl [oxyCODONE] 10 mg PO Q6H PRN #10 tablet 01/23/19 03/07/19 Unknown Rx diphenhydrAMINE [Benadryl CAP] 50 mg PO Q3D PRN 01/30/19 03/07/19 Unknown History Apixaban [Eliquis] 2.5 mg PO Q12HR tablet 02/02/19 03/07/19 Unknown Rx Epoetin Prashant 10,000 Unit [Procrit] 10,000 unit SUB-Q KATERYNA PRN vial 02/02/19 03/07/19 Unknown Rx Lisinopril [Zestril TAB] 5 mg PO QDAY #30 tablet 02/02/19 03/07/19 Unknown Rx HYDROcodone/APAP 5-325 [[place] 1 each PO Q6HR PRN #12 tablet 02/21/19 03/07/19 Unknown Rx 5/325] Ondansetron [Zofran Odt] 4 mg PO Q8HR PRN #14 tab.rapdis 02/28/19 03/07/19 Unknown Rx traMADol [Ultram 50 MG tab] 50 mg PO Q4HR PRN #14 tablet 02/28/19 03/07/19 Unknown Rx Active Medications: Generic Name Dose Route Start Last Admin Trade Name Freq PRN Reason Stop Dose Admin Acetaminophen 650 mg 03/07/19 23:22 03/09/19 23:24 Tylenol PO 650 mg Q4H PRN Administration Pain MILD(1-3)/Fever >100.5/DOUGLAS Acetaminophen/Hydrocodone Bitart 1 each 03/09/19 09:15 03/13/19 17:48 [place] 5/325 PO 1 each Q6H PRN Administration Pain, Moderate (4-6) Amlodipine Besylate 10 mg 03/09/19 10:00 03/14/19 10:00 Norvasc PO Not Given DAILY BEAN Atorvastatin Calcium 40 mg 03/09/19 22:00 03/14/19 22:54 Lipitor PO 40 mg QHS BEAN Administration Carvedilol 25 mg 03/09/19 10:00 03/14/19 22:54 Coreg PO 25 mg BID BEAN Administration Dextrose 50 ml 03/08/19 12:40 D50w (25gm) Syringe IV PRN PRN Hypoglycemia Diphenhydramine HCl 25 mg 03/09/19 11:15 03/15/19 01:06 Benadryl IV 25 mg Q6H PRN Administration Itching Epoetin Prashant 10,000 unit 03/09/19 09:15 03/14/19 12:56 Procrit SUB-Q 10,000 unit KATERYNA PRN Administration hemodialysis Famotidine 10 mg 03/09/19 10:00 03/14/19 22:54 Pepcid PO 10 mg BID BEAN Administration Hydralazine HCl 10 mg 03/08/19 02:02 03/09/19 15:20 Apresoline IV 10 mg Q4H PRN Administration Hypertension Hydralazine HCl 50 mg 03/09/19 10:00 03/14/19 22:54 Apresoline PO 50 mg BID BEAN Administration Sodium Chloride 100 mls @ 999 mls/hr 03/12/19 09:13 Nacl 0.9% IV KATERYNA PRN Hypotension Insulin Human Lispro 0 unit 03/08/19 16:30 03/14/19 22:53 Humalog SUB-Q Not Given ACHS [facility] Protocol Losartan Potassium 100 mg 03/09/19 13:00 03/14/19 10:00 Cozaar PO Not Given QDAY [facility] Morphine Sulfate 4 mg 03/08/19 09:33 03/13/19 05:36 Morphine IV 4 mg Q4H PRN Administration Pain , Severe (7-10) Ondansetron HCl 4 mg 03/07/19 23:22 03/12/19 14:03 Zofran IV 4 mg Q8H PRN Administration Nausea And Vomiting Oxycodone HCl 10 mg 03/09/19 10:24 03/15/19 01:06 Roxicodone PO 10 mg Q6H PRN Administration Pain , Severe (7-10) Sodium Chloride 10 ml 03/08/19 10:00 03/14/19 23:10 Sodium Chloride Flush Syringe 10 Ml IV Not Given BID [facility] Sodium Chloride 10 ml 03/07/19 23:22 Sodium Chloride Flush Syringe 10 Ml IV PRN PRN LINE FLUSH Tramadol HCl 50 mg 03/09/19 09:15 Ultram PO Q4H PRN Pain
[2019-03-15 06:46] LABS: Hematocrit 34.1 % (35.5-45.6); Hemoglobin 10.9 gm/dl (11.8-15.2); Mean Corpuscular HGB Conc 32 % (32-34); Mean Corpuscular Volume 98 fl (84-94); Red Blood Count 3.47 M/mm3 (3.65-5.03); Red Cell Distribution Width 15.6 % (13.2-15.2)
[2019-03-15 06:50] LABS: Platelet Count 56 K/mm3 (140-440)
[2019-03-15 07:18] LABS: Calcium 8.5 mg/dL (8.4-10.2)
[2019-03-15] MEDS: INSULIN LISPRO 100 UNIT/ML SUB-Q SCH ×4 (07:30→21:56)
[2019-03-15] MEDS ORDERED: HYDROmorphone 1 MG/1 ML INJ IV NR (09:08)
[2019-03-15] MEDS ORDERED: ONDANSETRON 4 MG/2 ML INJ IV NR (09:08)
--- NOTE | 2019-03-15 09:13 | Progress Note ---
Assessment and Plan 72 y/o with recurrent left sided pleural effusion. No new recs from a pulmonary standpoint. Will see as needed over the weekend. 1. No Pleurx. 2. No family at bedside. I have never met or son, however patient states that could manage pleurx. Im not sure about this as he has told me in the past that she would not be able to help him 3. patient may not be able to obtain pleurx for medical reasons. May have to resort to continued thoracentesis. This could be set up as an out patient from his PCP office if necessary. 4. Will continue to follow. Subjective Date of service: 03/15/19 Principal diagnosis: low plt Interval history: No acute events. Going for a bone marrow biopsy today. Objective Vital Signs - 12hr 03/14/19 03/15/19 03/15/19 22:00 00:19 04:42 Temperature 99.8 F H 99.8 F H Pulse Rate 90 84 95 H Respiratory 20 18 18 Rate Blood Pressure 140/104 126/85 O2 Sat by Pulse 90 100 Oximetry 03/15/19 07:40 Temperature 98.2 F Pulse Rate 80 Respiratory Rate Blood Pressure 114/82 O2 Sat by Pulse 100 Oximetry Constitutional: no acute distress, alert Eyes: non-icteric ENT: oropharynx moist Neck: supple Effort: normal Ascultation: Left: diminished breath sounds Percussion: Left: dull Tactile fremitus: Right: normal Cardiovascular: regular rate and rhythm Gastrointestinal: normoactive bowel sounds, soft Extremities: no cyanosis Neurologic: normal mental status Psychiatric: mood appropriate CBC and BMP: 03/15/19 05:35 03/15/19 05:35 ABG, PT/INR, D-dimer: PT/INR, D-dimer PT 16.5 Sec. (12.2-14.9) H 03/09/19 10:10 INR 1.37 (0.87-1.13) H 03/09/19 10:10 Abnormal lab findings: Abnormal Labs 03/07/19 03/07/19 03/07/19 21:30 21:30 21:30 WBC 3.0 L RBC 3.54 L Hgb 11.5 L Hct 35.1 L MCV 99 H MCH 33 H RDW 15.6 H Plt Count 67 L [place] % (Auto) 9.7 H Lymph # 0.7 L Monocytes % (Manual) Seg Neutrophils # Seg Neutrophils # Man Lymphocytes # (Manual) PT INR APTT Sodium 136 L Potassium Chloride BUN Creatinine 3.6 H Glucose POC Glucose Calcium Alkaline Phosphatase 135 H Troponin T 0.270 H* Albumin 3.3 L LDL Cholesterol Direct 28 L Hepatitis C Antibody 03/07/19 03/08/19 03/08/19 22:59 03:28 21:46 WBC RBC Hgb Hct MCV MCH RDW Plt Count [place] % (Auto) Lymph # Monocytes % (Manual) Seg Neutrophils # Seg Neutrophils # Man Lymphocytes # (Manual) PT INR APTT Sodium Potassium Chloride BUN Creatinine Glucose POC Glucose 118 H Calcium Alkaline Phosphatase Troponin T 0.294 H* 0.266 H* Albumin LDL Cholesterol Direct Hepatitis C Antibody 03/09/19 03/09/19 03/10/19 10:10 10:10 04:52 WBC 2.5 L RBC 3.31 L Hgb 10.7 L Hct 32.7 L D MCV 99 H MCH RDW 15.8 H Plt Count 79 L 74 L [place] % (Auto) Lymph # Monocytes % (Manual) 14.0 H Seg Neutrophils # Seg Neutrophils # Man 1.5 L Lymphocytes # (Manual) 0.6 L PT 16.5 H INR 1.37 H APTT 37.7 H Sodium Potassium Chloride BUN Creatinine Glucose POC Glucose Calcium Alkaline Phosphatase Troponin T Albumin LDL Cholesterol Direct Hepatitis C Antibody 03/10/19 03/11/19 03/11/19 04:52 06:10 20:40 WBC RBC Hgb 10.5 L Hct 31.9 L MCV MCH RDW Plt Count 67 L [place] % (Auto) Lymph # Monocytes % (Manual) Seg Neutrophils # Seg Neutrophils # Man Lymphocytes # (Manual) PT INR APTT Sodium Potassium Chloride BUN Creatinine 4.0 H Glucose POC Glucose 122 H Calcium Alkaline Phosphatase Troponin T Albumin LDL Cholesterol Direct Hepatitis C Antibody 03/12/19 03/12/19 03/12/19 05:26 17:03 20:33 WBC 2.6 L RBC 3.29 L Hgb 10.7 L Hct 32.9 L MCV 100 H MCH 33 H RDW 15.8 H Plt Count 74 L [place] % (Auto) 8.3 H Lymph # 0.6 L Monocytes % (Manual) Seg Neutrophils # 1.7 L Seg Neutrophils # Man Lymphocytes # (Manual) PT INR APTT Sodium Potassium Chloride BUN Creatinine Glucose POC Glucose 129 H 122 H Calcium Alkaline Phosphatase Troponin T Albumin LDL Cholesterol Direct Hepatitis C Antibody 03/13/19 03/13/19 03/13/19 05:40 11:46 19:29 WBC RBC Hgb 10.3 L Hct 33.4 L MCV MCH RDW Plt Count 47 L [place] % (Auto) Lymph # Monocytes % (Manual) Seg Neutrophils # Seg Neutrophils # Man Lymphocytes # (Manual) PT INR APTT Sodium Potassium Chloride BUN Creatinine Glucose POC Glucose 114 H Calcium Alkaline Phosphatase Troponin T Albumin LDL Cholesterol Direct Hepatitis C Antibody Reactive A 03/14/19 03/14/19 03/14/19 05:44 05:44 22:56 WBC 2.6 L RBC 3.30 L Hgb 10.4 L Hct 32.1 L MCV 98 H MCH RDW 15.6 H Plt Count 51 L [place] % (Auto) Lymph # Monocytes % (Manual) Seg Neutrophils # Seg Neutrophils # Man Lymphocytes # (Manual) PT INR APTT Sodium 134 L Potassium 5.1 H D Chloride 97.0 L BUN 37 H Creatinine 6.0 H Glucose 103 H POC Glucose 134 H Calcium 8.2 L Alkaline Phosphatase Troponin T Albumin LDL Cholesterol Direct Hepatitis C Antibody 03/15/19 03/15/19 05:35 05:35 WBC 3.1 L RBC 3.47 L Hgb 10.9 L Hct 34.1 L MCV 98 H MCH RDW 15.6 H Plt Count 56 L [place] % (Auto) Lymph # Monocytes % (Manual) Seg Neutrophils # Seg Neutrophils # Man Lymphocytes # (Manual) PT INR APTT Sodium Potassium Chloride BUN 25 H Creatinine 4.5 H Glucose POC Glucose Calcium Alkaline Phosphatase Troponin T Albumin LDL Cholesterol Direct Hepatitis C Antibody
--- NOTE | 2019-03-15 09:20 | Progress Note ---
Assessment and Plan Recurrent Left pleural effusion Atypical chest pain no ischemia by MPI 01/2019 End-stage renal disease on hemodialysis Chronic atrial fibrillation on low dose eliquis therapy as an outpatient; currently on hold. Dilated nonischemic cardiomyopathy ejection fraction 25-30% by echocardiogram 01/2019 DM type II PVD s/p left arm amputation Hypertension Thrombocytopenia, chronic s/p platelet transfusion Non-obstructive CAD [facility] 01/2017 revealed non-obstructive, single vessel disease of the proximal LAD recommended for medical therapy. Recommend: Continue medical therapy for nonischemic cardiomyopathy, chronic systolic heart failure and non-obstructive CAD as tolerated. Subjective Date of service: 03/15/19 Principal diagnosis: low plt Interval history: No cardiac events reported. Afib with a well controlled ventricular rate on telemetry. Objective Vital Signs Temp Pulse Pulse Resp Resp Resp Resp 03/15/19 07:40 98.2 F 80 03/15/19 04:42 99.8 F H 95 H 18 03/15/19 00:19 99.8 F H 84 18 03/14/19 22:00 90 20 03/14/19 20:26 98.7 F 76 20 03/14/19 19:15 03/14/19 19:07 20 03/14/19 14:33 80 03/14/19 14:24 80 20 03/14/19 13:00 20 20 20 03/14/19 12:35 98.2 F 81 20 03/14/19 12:15 80 03/14/19 12:00 76 03/14/19 11:45 78 03/14/19 11:30 65 03/14/19 11:15 79 03/14/19 11:00 69 03/14/19 10:45 81 03/14/19 10:30 75 03/14/19 10:15 70 03/14/19 10:00 71 03/14/19 09:45 70 03/14/19 09:35 73 03/14/19 09:20 98.2 F 75 18 BP Pulse Ox 03/15/19 07:40 114/82 100 03/15/19 04:42 126/85 100 03/15/19 00:19 140/104 90 03/14/19 22:00 03/14/19 20:26 148/94 99 03/14/19 19:15 100 03/14/19 19:07 03/14/19 14:33 03/14/19 14:24 100 03/14/19 13:00 03/14/19 12:35 145/86 03/14/19 12:15 138/90 03/14/19 12:00 127/69 03/14/19 11:45 133/77 03/14/19 11:30 175/83 03/14/19 11:15 148/88 03/14/19 11:00 142/91 03/14/19 10:45 130/76 03/14/19 10:30 140/93 03/14/19 10:15 126/91 03/14/19 10:00 153/84 03/14/19 09:45 129/64 03/14/19 09:35 131/85 03/14/19 09:20 129/64 - Physical Examination General: No Apparent Distress HEENT: Positive: PERRL Neck: Positive: trachea midline Cardiac: Positive: irregularly irregular Neuro: Positive: Grossly Intact - Labs and Meds CBC 03/15/19 Range/Units 05:35 WBC 3.1 L (4.5-11.0) K/mm3 RBC 3.47 L (3.65-5.03) M/mm3 Hgb 10.9 L (11.8-15.2) gm/dl Hct 34.1 L (35.5-45.6) % Plt Count 56 L (140-440) K/mm3 Comprehensive Metabolic Panel 03/15/19 Range/Units 05:35 Sodium 138 (137-145) mmol/L Potassium 4.7 (3.6-5.0) mmol/L Chloride 98.4 (98-107) mmol/L Carbon Dioxide 23 (22-30) mmol/L BUN 25 H (9-20) mg/dL Creatinine 4.5 H (0.8-1.5) mg/dL Glucose 94 (75-100) mg/dL Calcium 8.5 (8.4-10.2) mg/dL
--- NOTE | 2019-03-15 10:33 | Cat Scan Report ---
CT-guided bone marrow aspiration and biopsy INDICATION : Thrombocytopenia COMPARISON: CT abdomen/pelvis from 02/03/2019 PROCEDURE: The risks (including but not limited to bleeding and infection) and benefits were explain ed to the patient and informed consent was obtained. All CT examinations performed at this facility utilize dose modulation, iterative reconstruction or weight-based dosing, when appropriate, to reduce radiation dose to as low as reasonably achievable. A time out procedure was performed. The procedu re site was prepped and draped in the usual sterile fashion and lidocaine was used for local anesthes ia. Under CT guidance, the left posterior iliac wing was selected for biopsy. An 11 gauge needle was adv anced to the posterior margin of the iliac wing, cortex breached, and 8 mL bone marrow aspirate obtai colette. The needle was then advanced and a bone marrow biopsy was obtained measuring approximately 2 cm . Samples were given directly to the stage technician who was present during the exam. The patient tolerated the procedure well with no complications. IMPRESSION: Technically successful bone marrow aspirate and biopsy. Signer Name: Giacomo Garces MD Signed: 03/15/2019 10:29 AM Workstation Name: [id number]
[2019-03-15] MEDS: LOSARTAN 50 MG TAB PO SCH (11:19)
[2019-03-15] MEDS: FAMOTIDINE 10 MG TAB PO SCH ×2 (11:19→21:53)
[2019-03-15] MEDS: amLODIPine 10 MG TAB PO SCH (11:20)
[2019-03-15] MEDS: carvediloL 25 MG TAB PO SCH ×2 (11:20→21:54)
[2019-03-15] MEDS: hydrALAZINE 25 MG TAB PO SCH ×2 (11:21→21:55)
[2019-03-15 12:39] LABS: Basophils % (Manual) 0 % (0.0-1.8); Total Cells Counted 100
[2019-03-15 12:40] LABS: Anisocytosis Few; Large Platelets Rare; Platelet Estimate Consistent w Auto; Poikilocytosis Few
--- NOTE | 2019-03-15 13:41 | Progress Note ---
Assessment and Plan 1. ESRD: Continue hemodialysis three times a week, TTS schedule. 2. FEN: Hyperkalemia, improved. On maintenance HD. Monitor. 3. L sided pleural effusion: Followed by Pulmonary and Vascular. Pleurx held. 4. A.fib: Rate controlled. 5. HTN. 6. Anemia: Epogen if needed. 7. PAD. Examination: General appearance: well-developed, appears stated age, no distress EENT: ATNC, ELENI, mucous membranes moist, hearing intact, vision intact Neck: supple Respiratory: Clear to auscultate, decreased breath sound on the L side Cardiology: irregular, S1S2, no murmur Gastrointestinal: normoactive bowel sounds, no tenderness, no distended Integumentary: no rash, warm and dry Neurologic: no focal deficit, no asterixis, alert and oriented x3 Musculoskeletal: no edema, L forearm amputated Hemodialysis access: R IJ tunnel catheter Subjective Date of service: 03/15/19 Principal diagnosis: low plt Interval history: Patient was seen and examined at the bedside. No new complaint. Doing ok. Objective - Vital Signs Vital signs: Vital Signs - 12hr 03/15/19 03/15/19 03/15/19 04:42 07:40 09:38 Temperature 99.8 F H 98.2 F Pulse Rate 95 H 80 Pulse Rate [ 82 Intra-Procedure ] Pulse Rate [ Post-Procedure] Pulse Rate [ Right Radial] Respiratory 18 Rate Respiratory 15 Rate [Intra- Procedure] Respiratory Rate [Post- Procedure] Blood Pressure 126/85 114/82 Blood Pressure 141/39 [Intra- Procedure] Blood Pressure [Post-Procedure ] O2 Sat by Pulse 100 100 Oximetry O2 Sat by Pulse 100 Oximetry [ Intra-Procedure ] O2 Sat by Pulse Oximetry [Post -Procedure] 03/15/19 03/15/19 03/15/19 09:54 09:59 10:00 Temperature Pulse Rate Pulse Rate [ 82 84 Intra-Procedure ] Pulse Rate [ Post-Procedure] Pulse Rate [ 88 Right Radial] Respiratory 18 Rate Respiratory 16 15 Rate [Intra- Procedure] Respiratory Rate [Post- Procedure] Blood Pressure Blood Pressure 158/69 143/116 [Intra- Procedure] Blood Pressure [Post-Procedure ] O2 Sat by Pulse 98 Oximetry O2 Sat by Pulse 100 100 Oximetry [ Intra-Procedure ] O2 Sat by Pulse Oximetry [Post -Procedure] 03/15/19 03/15/19 03/15/19 10:03 10:10 10:45 Temperature Pulse Rate 88 Pulse Rate [ Intra-Procedure ] Pulse Rate [ 76 78 Post-Procedure] Pulse Rate [ Right Radial] Respiratory Rate Respiratory Rate [Intra- Procedure] Respiratory 12 15 Rate [Post- Procedure] Blood Pressure Blood Pressure [Intra- Procedure] Blood Pressure 151/98 148/90 [Post-Procedure ] O2 Sat by Pulse Oximetry O2 Sat by Pulse Oximetry [ Intra-Procedure ] O2 Sat by Pulse 100 100 Oximetry [Post -Procedure] 03/15/19 03/15/19 03/15/19 11:19 11:20 11:21 Temperature Pulse Rate 88 88 88 Pulse Rate [ Intra-Procedure ] Pulse Rate [ Post-Procedure] Pulse Rate [ Right Radial] Respiratory Rate Respiratory Rate [Intra- Procedure] Respiratory Rate [Post- Procedure] Blood Pressure 146/90 146/90 140/90 Blood Pressure [Intra- Procedure] Blood Pressure [Post-Procedure ] O2 Sat by Pulse Oximetry O2 Sat by Pulse Oximetry [ Intra-Procedure ] O2 Sat by Pulse Oximetry [Post -Procedure] 03/15/19 03/15/19 03/15/19 11:22 11:41 12:22 Temperature 98.4 F Pulse Rate 79 Pulse Rate [ Intra-Procedure ] Pulse Rate [ Post-Procedure] Pulse Rate [ Right Radial] Respiratory 20 20 20 Rate Respiratory Rate [Intra- Procedure] Respiratory Rate [Post- Procedure] Blood Pressure 130/89 Blood Pressure [Intra- Procedure] Blood Pressure [Post-Procedure ] O2 Sat by Pulse 100 Oximetry O2 Sat by Pulse Oximetry [ Intra-Procedure ] O2 Sat by Pulse Oximetry [Post -Procedure] - Lab 03/15/19 05:35 03/15/19 05:35 Most recent lab results Calcium 8.5 mg/dL (8.4-10.2) 03/15/19 05:35 Medications & Allergies - Medications Allergies/Adverse Reactions: Allergies aspirin Allergy (Verified 02/20/19 22:06) Unknown stomach cramps pork derived (porcine) Allergy (Verified 02/20/19 22:06) Rash venom-honey bee [bee venom (honey bee)] Allergy (Verified 02/20/19 22:06) Anaphylaxis Pork/Porcine Containing Products Adverse Reaction (Severe, Verified 02/20/19 22:06) Nausea,VOMITING Home Medications: Home Medications Medication Instructions Recorded Confirmed Last Taken Type AtorvaSTATin [Lipitor] 40 mg PO QHS #30 tablet 12/29/18 03/07/19 01/01/19 Rx Famotidine [Pepcid] 10 mg PO BID #15 tablet 12/29/18 03/07/19 01/01/19 Rx amLODIPine [Norvasc] 10 mg PO DAILY #30 tablet 12/29/18 03/07/19 01/01/19 Rx hydrALAZINE [Apresoline TAB] 50 mg PO BID #60 tablet 12/29/18 03/07/19 01/01/19 Rx Carvedilol [Coreg] 25 mg PO BID #60 tablet 01/17/19 03/07/19 Unknown Rx Oxycodone HCl [oxyCODONE] 10 mg PO Q6H PRN #10 tablet 01/23/19 03/07/19 Unknown Rx diphenhydrAMINE [Benadryl CAP] 50 mg PO Q3D PRN 01/30/19 03/07/19 Unknown History Apixaban [Eliquis] 2.5 mg PO Q12HR tablet 02/02/19 03/07/19 Unknown Rx Epoetin Prashant 10,000 Unit [Procrit] 10,000 unit SUB-Q KATERYNA PRN vial 02/02/19 03/07/19 Unknown Rx Lisinopril [Zestril TAB] 5 mg PO QDAY #30 tablet 02/02/19 03/07/19 Unknown Rx HYDROcodone/APAP 5-325 [[place] 1 each PO Q6HR PRN #12 tablet 02/21/19 03/07/19 Unknown Rx 5/325] Ondansetron [Zofran Odt] 4 mg PO Q8HR PRN #14 tab.rapdis 02/28/19 03/07/19 Unknown Rx traMADol [Ultram 50 MG tab] 50 mg PO Q4HR PRN #14 tablet 02/28/19 03/07/19 Unknown Rx Active Medications: Generic Name Dose Route Start Last Admin Trade Name Freq PRN Reason Stop Dose Admin Acetaminophen 650 mg 03/07/19 23:22 03/09/19 23:24 Tylenol PO 650 mg Q4H PRN Administration Pain MILD(1-3)/Fever >100.5/DOUGLAS Acetaminophen/Hydrocodone Bitart 1 each 03/09/19 09:15 03/13/19 17:48 [place] 5/325 PO 1 each Q6H PRN Administration Pain, Moderate (4-6) Amlodipine Besylate 10 mg 03/09/19 10:00 03/15/19 11:20 Norvasc PO 10 mg DAILY BEAN Administration Atorvastatin Calcium 40 mg 03/09/19 22:00 03/14/19 22:54 Lipitor PO 40 mg QHS BEAN Administration Carvedilol 25 mg 03/09/19 10:00 03/15/19 11:20 Coreg PO 25 mg BID BEAN Administration Dextrose 50 ml 03/08/19 12:40 D50w (25gm) Syringe IV PRN PRN Hypoglycemia Diphenhydramine HCl 25 mg 03/09/19 11:15 03/15/19 11:23 Benadryl IV 25 mg Q6H PRN Administration Itching Epoetin Prashant 10,000 unit 03/09/19 09:15 03/14/19 12:56 Procrit SUB-Q 10,000 unit KATERYNA PRN Administration hemodialysis Famotidine 10 mg 03/09/19 10:00 03/15/19 11:19 Pepcid PO 10 mg BID BEAN Administration Hydralazine HCl 10 mg 03/08/19 02:02 03/09/19 15:20 Apresoline IV 10 mg Q4H PRN Administration Hypertension Hydralazine HCl 50 mg 03/09/19 10:00 03/15/19 11:21 Apresoline PO 50 mg BID BEAN Administration Sodium Chloride 100 mls @ 999 mls/hr 03/12/19 09:13 Nacl 0.9% IV KATERYNA PRN Hypotension Insulin Human Lispro 0 unit 03/08/19 16:30 03/15/19 12:24 Humalog SUB-Q Not Given ACHS [facility] Protocol Losartan Potassium 100 mg 03/09/19 13:00 03/15/19 11:19 Cozaar PO 100 mg QDAY BEAN Administration Morphine Sulfate 4 mg 03/08/19 09:33 03/13/19 05:36 Morphine IV 4 mg Q4H PRN Administration Pain , Severe (7-10) Ondansetron HCl 4 mg 03/07/19 23:22 03/12/19 14:03 Zofran IV 4 mg Q8H PRN Administration Nausea And Vomiting Oxycodone HCl 10 mg 03/09/19 10:24 03/15/19 11:22 Roxicodone PO 10 mg Q6H PRN Administration Pain , Severe (7-10) Sodium Chloride 10 ml 03/08/19 10:00 03/15/19 11:22 Sodium Chloride Flush Syringe 10 Ml IV 10 ml BID BEAN Administration Sodium Chloride 10 ml 03/07/19 23:22 Sodium Chloride Flush Syringe 10 Ml IV PRN PRN LINE FLUSH Tramadol HCl 50 mg 03/09/19 09:15 Ultram PO Q4H PRN Pain
--- NOTE | 2019-03-15 14:38 | Progress Note ---
Assessment and Plan Assessment and plan: Patient is a 71 yo chronic disable man with a plethora of severe co-morbidities including recurrent left sided pleural effusion s/p thoracentesis almost every 2 weeks, ESRD on HD, Afib on Eliquis, Systolic heart failure with NICMP (most recent left ventricular function assessment showing an ejection fraction of 25- 30%.), DVT, PTSD, AOCD, Right upper extermity chronic ulcer, C. Diffe and hypertension who presented with chest pains and SOB. Patient has many ED visits with multiple admissions since 01/21/19. In December 2018, he had 5 ED visits. In January 2019 he had 6 ED visits. So far in February 2019, he has 3 ED visits. Multiple ED visits for falling out the bed, and one visit for falling out the wh eelchair, one ED visit for Chest pains. Currently admitted for Recurrent pleural effusion. Recurrent Moderate symptomatic Left pleural effusion: Order Thoracentesis Chronic thrombocytopenia since 2014 in our EMR s/p 2 units of pharesis plt: monitor cbc closely, consulted Heme/Onc Anemia of chronic renal disease: monitor cbc closely, EPO with HD ESRD on Hemodialysis: Nephrology following Afib on Eliquis: held Eliquis for thoracentesis, Chest pains with chronic elevated troponin: Cardiology is following Hypertension urgency: low salt diet, iv hydralazine prn History of Clostriodioides difficile colitis infection s/p oral Vancomycin 125 mg po QID x 10 days Hepatitis C Pleurx cath not done due to thrombocytopenia, so Heme/Onc consulted, d/w Dr. Box who will order Bone Marrow Bx as patient is pancytopenic and Ok for thoracentesis. Disposition: bone marrow bx done today, hemodialysis tomorrow then home History Interval history: Patient was seen and examined. Follow-up on current diagnosis of left pleural effusion. No overnight events reported to me. Patient denies any chest pain, shortness breath, nausea/vomiting or severe headaches. Imaging, nursing note, chart, labs and old chart reviewed. Discussed with patient. Hospitalist Physical - Physical exam Narrative exam: Gen: thin frial, chronic ill appearing, NAD, Awake, Alert, Orientated HEENT: NCAT, EOMI, PERRL, OP Clear Neck: supple, no adenopathy, no thyromegaly, no JVD CVS/Heart: RRR, normal S1S2, pulses present bilaterally Chest/Lungs: diminished left bs, Symmetrical chest expansion, good air entry right GI/Abdomen: soft, NTND, good bowel sounds, no guarding or rebound /Bladder: no suprapubic tenderness, no CVA or paraspinal tenderness Extermity/Skin: no c/c/e, no obvious rash MSK: FROM x 3, left forearm amputated Neuro: CN 2-12 grossly intact, no new focal deficits Psych: calm - Constitutional Vitals: Temp Pulse Resp BP Pulse Ox 98.4 F 79 20 130/89 100 03/15/19 11:41 03/15/19 11:41 03/15/19 12:22 03/15/19 11:41 03/15/19 11:41 General appearance: Present: no acute distress, well-nourished Results - Labs CBC & Chem 7: 03/15/19 05:35 03/15/19 05:35 Labs: Laboratory Last Values WBC 3.1 K/mm3 (4.5-11.0) L 03/15/19 05:35 RBC 3.47 M/mm3 (3.65-5.03) L 03/15/19 05:35 Hgb 10.9 gm/dl (11.8-15.2) L 03/15/19 05:35 Hct 34.1 % (35.5-45.6) L 03/15/19 05:35 MCV 98 fl (84-94) H 03/15/19 05:35 MCH 31 pg (28-32) 03/15/19 05:35 MCHC 32 % (32-34) 03/15/19 05:35 RDW 15.6 % (13.2-15.2) H 03/15/19 05:35 Plt Count 56 K/mm3 (140-440) L 03/15/19 05:35 Lymph % (Auto) 22.7 % (13.4-35.0) 03/12/19 05:26 [place] % (Auto) 8.3 % (0.0-7.3) H 03/12/19 05:26 Eos % (Auto) 2.4 % (0.0-4.3) 03/12/19 05:26 Baso % (Auto) 0.9 % (0.0-1.8) 03/12/19 05:26 Lymph # 0.6 K/mm3 (1.2-5.4) L 03/12/19 05:26 [place] # 0.2 K/mm3 (0.0-0.8) 03/12/19 05:26 Eos # 0.1 K/mm3 (0.0-0.4) 03/12/19 05:26 Baso # 0.0 K/mm3 (0.0-0.1) 03/12/19 05:26 Add Manual Diff Complete 03/10/19 04:52 Total Counted 100 03/15/19 05:35 Seg Neutrophils % 65.7 % (40.0-70.0) 03/12/19 05:26 Seg Neuts % (Manual) 63.0 % (40.0-70.0) 03/15/19 05:35 0 % 03/15/19 05:35 26.0 % (13.4-35.0) 03/15/19 05:35 Reactive Lymphs % (Man) 4.0 % 03/15/19 05:35 5.0 % (0.0-7.3) 03/15/19 05:35 2.0 % (0.0-4.3) 03/15/19 05:35 0 % (0.0-1.8) 03/15/19 05:35 0 % 03/15/19 05:35 0 % 03/15/19 05:35 0 % 03/15/19 05:35 0 % 03/15/19 05:35 Nucleated RBC % Not Reportable 03/15/19 05:35 Seg Neutrophils # 1.7 K/mm3 (1.8-7.7) L 03/12/19 05:26 Seg Neutrophils # Man 2.0 K/mm3 (1.8-7.7) 03/15/19 05:35 Band Neutrophils # 0.0 K/mm3 03/15/19 05:35 0.8 K/mm3 (1.2-5.4) L 03/15/19 05:35 Abs React Lymphs (Man) 0.1 K/mm3 03/15/19 05:35 0.2 K/mm3 (0.0-0.8) 03/15/19 05:35 0.1 K/mm3 (0.0-0.4) 03/15/19 05:35 0.0 K/mm3 (0.0-0.1) 03/15/19 05:35 0.0 K/mm3 03/15/19 05:35 0.0 K/mm3 03/15/19 05:35 0.0 K/mm3 03/15/19 05:35 Blast Cells # 0.0 K/mm3 03/15/19 05:35 Pathologist Review 03/15/19 05:35 WBC Morphology Not Reportable 03/15/19 05:35 Hypersegmented Neuts Not Reportable 03/15/19 05:35 Hyposegmented Neuts Not Reportable 03/15/19 05:35 Hypogranular Neuts Not Reportable 03/15/19 05:35 Not Reportable 03/15/19 05:35 Not Reportable 03/15/19 05:35 Not Reportable 03/15/19 05:35 Not Reportable 03/15/19 05:35 Not Reportable 03/15/19 05:35 Not Reportable 03/15/19 05:35 Consistent w auto 03/15/19 05:35 Not Reportable 03/15/19 05:35 Plt Clumps, EDTA Not Reportable 03/15/19 05:35 Rare 03/15/19 05:35 Not Reportable 03/15/19 05:35 Not Reportable 03/15/19 05:35 Plt Morphology Comment Not Reportable 03/15/19 05:35 RBC Morphology Not Reportable 03/15/19 05:35 Dimorphic RBCs Not Reportable 03/15/19 05:35 Not Reportable 03/15/19 05:35 Not Reportable 03/15/19 05:35 Few 03/15/19 05:35 Few 03/15/19 05:35 Not Reportable 03/15/19 05:35 Not Reportable 03/15/19 05:35 Not Reportable 03/15/19 05:35 Not Reportable 03/15/19 05:35 Not Reportable 03/15/19 05:35 Not Reportable 03/15/19 05:35 Not Reportable 03/15/19 05:35 Not Reportable 03/15/19 05:35 Not Reportable 03/15/19 05:35 Not Reportable 03/15/19 05:35 Not Reportable 03/15/19 05:35 Not Reportable 03/15/19 05:35 Not Reportable 03/15/19 05:35 Not Reportable 03/15/19 05:35 Not Reportable 03/15/19 05:35 Acanthocytes (Spur) Not Reportable 03/15/19 05:35 Rouleaux Not Reportable 03/15/19 05:35 Not Reportable 03/15/19 05:35 Not Reportable 03/15/19 05:35 Not Reportable 03/15/19 05:35 Not Reportable 03/15/19 05:35 Hem Pathologist Commnt Sent to pathology 03/15/19 05:35 PT 16.5 Sec. (12.2-14.9) H 03/09/19 10:10 INR 1.37 (0.87-1.13) H 03/09/19 10:10 APTT 37.7 Sec. (24.2-36.6) H 03/09/19 10:10 Sodium 138 mmol/L (137-145) 03/15/19 05:35 Potassium 4.7 mmol/L (3.6-5.0) 03/15/19 05:35 Chloride 98.4 mmol/L (98-107) 03/15/19 05:35 Carbon Dioxide 23 mmol/L (22-30) 03/15/19 05:35 21 mmol/L 03/15/19 05:35 BUN 25 mg/dL (9-20) H 03/15/19 05:35 4.5 mg/dL (0.8-1.5) H 03/15/19 05:35 Estimated GFR 16 ml/min 03/15/19 05:35 6 % 03/15/19 05:35 Glucose 94 mg/dL (75-100) 03/15/19 05:35 POC Glucose 113 (70-105) H 03/15/19 11:49 Calcium 8.5 mg/dL (8.4-10.2) 03/15/19 05:35 0.70 mg/dL (0.1-1.2) 03/07/19 21:30 0.2 mg/dL (0-0.2) 03/07/19 21:30 0.5 mg/dL 03/07/19 21:30 AST 28 units/L (5-40) 03/07/19 21:30 ALT 25 units/L (7-56) 03/07/19 21:30 135 units/L (35-129) H 03/07/19 21:30 0.266 ng/mL (0.00-0.029) H* 03/08/19 03:28 6.7 g/dL (6.3-8.2) 03/07/19 21:30 3.3 g/dL (3.9-5) L 03/07/19 21:30 1.0 % 03/07/19 21:30 Triglycerides 51 mg/dL (2-149) 03/07/19 21:30 Cholesterol 73 mg/dL (50-199) 03/07/19 21:30 28 mg/dL (50-130) L 03/07/19 21:30 43 mg/dL (40-59) 03/07/19 21:30 1.69 % 03/07/19 21:30 Hepatitis A IgM Ab Non-reactive (NonReactive) 03/13/19 19:29 Hep Bs Antigen Non-reactive (Negative) 03/13/19 19:29 Hep B Core IgM Ab Non-reactive (NonReactive) 03/13/19 19:29 Reactive (NonReactive) A 03/13/19 19:29 Blood Type O POSITIVE 03/11/19 11:20 Active Medications - Current Medications Current Medications: Generic Name Dose Route Start Last Admin Trade Name Freq PRN Reason Stop Dose Admin Acetaminophen 650 mg 03/07/19 23:22 03/09/19 23:24 Tylenol PO 650 mg Q4H PRN Administration Pain MILD(1-3)/Fever >100.5/DOUGLAS Acetaminophen/Hydrocodone Bitart 1 each 03/09/19 09:15 03/13/19 17:48 [place] 5/325 PO 1 each Q6H PRN Administration Pain, Moderate (4-6) Amlodipine Besylate 10 mg 03/09/19 10:00 03/15/19 11:20 Norvasc PO 10 mg DAILY BEAN Administration Atorvastatin Calcium 40 mg 03/09/19 22:00 03/14/19 22:54 Lipitor PO 40 mg QHS BEAN Administration Carvedilol 25 mg 03/09/19 10:00 03/15/19 11:20 Coreg PO 25 mg BID BEAN Administration Dextrose 50 ml 03/08/19 12:40 D50w (25gm) Syringe IV PRN PRN Hypoglycemia Diphenhydramine HCl 25 mg 03/09/19 11:15 03/15/19 11:23 Benadryl IV 25 mg Q6H PRN Administration Itching Epoetin Prashant 10,000 unit 03/09/19 09:15 03/14/19 12:56 Procrit SUB-Q 10,000 unit KATERYNA PRN Administration hemodialysis Famotidine 10 mg 03/09/19 10:00 03/15/19 11:19 Pepcid PO 10 mg BID BEAN Administration Hydralazine HCl 10 mg 03/08/19 02:02 03/09/19 15:20 Apresoline IV 10 mg Q4H PRN Administration Hypertension Hydralazine HCl 50 mg 03/09/19 10:00 03/15/19 11:21 Apresoline PO 50 mg BID BEAN Administration Sodium Chloride 100 mls @ 999 mls/hr 03/12/19 09:13 Nacl 0.9% IV KATERYNA PRN Hypotension Insulin Human Lispro 0 unit 03/08/19 16:30 03/15/19 12:24 Humalog SUB-Q Not Given ACHS [facility] Protocol Losartan Potassium 100 mg 03/09/19 13:00 03/15/19 11:19 Cozaar PO 100 mg QDAY BEAN Administration Morphine Sulfate 4 mg 03/08/19 09:33 03/13/19 05:36 Morphine IV 4 mg Q4H PRN Administration Pain , Severe (7-10) Ondansetron HCl 4 mg 03/07/19 23:22 03/12/19 14:03 Zofran IV 4 mg Q8H PRN Administration Nausea And Vomiting Oxycodone HCl 10 mg 03/09/19 10:24 03/15/19 11:22 Roxicodone PO 10 mg Q6H PRN Administration Pain , Severe (7-10) Sodium Chloride 10 ml 03/08/19 10:00 03/15/19 11:22 Sodium Chloride Flush Syringe 10 Ml IV 10 ml BID BEAN Administration Sodium Chloride 10 ml 03/07/19 23:22 Sodium Chloride Flush Syringe 10 Ml IV PRN PRN LINE FLUSH Tramadol HCl 50 mg 03/09/19 09:15 Ultram PO Q4H PRN Pain Nutrition/Malnutrition Assess - Dietary Evaluation Nutrition/Malnutrition Findings: Nutrition Notes Start: 03/08/19 09: 52 Freq: Status: Active Protocol: Document 03/14/19 10:26 DW (Rec: 03/14/19 11:31 DW [id number]) Co-Sign 03/14/19 10:26 Nutrition Notes Initial or Follow up Reassessment Current Diagnosis CKD (stage V CKD),COPD, Coronary Artery Disease,Heart Failure Other Pertinent Diagnosis HD,Afib,DVT,PulmonaryEdema, Pleural Effusion,Dialated Nonishemic Cardiopathy Current Diet NPO Labs/Tests BUN: 37 Cr: 6.0 K: 5.1 Na: 134 Pertinent Medications Reviewed Height 5 ft 9 in Weight 47.8 kg [place] Body Weight (kg) 72.72 BMI 15.5 Weight change and time frame Lower Arm Amputation Corrected Wt 48.9kg Corrected BMI 16.0 Subjective/Other Information FU for PO/ONS/Renal Labs Pt stated he does not like the renal diet and would like to have regular diet. Pt stated he likes ONS but was getting it too much, he prefers to have it once daily. Noted 0% of brekafast eaten at bedside Percent of energy/protein needs met: 100%/100% Burn Absent Trauma Absent GI Symptoms None Minimum of two criteria Yes Energy Intake (non-severe) <75% Estimated Energy Requirement >7 days Interpretation of Weight Loss (severe) >10% in 6 months Body Fat Depletion Moderate depletion (severe) Muscle Mass Moderate Depletion (severe) #1 Nutrition Diagnosis Malnutrition Diagnosis Progress(for reassessment Continues documentation) Is patient on ventilator? No Is Patient Ambulatory and/or Out of Bed No REE-([facility]-confined to bed) 1474.296 Kcal/Kg value to use for calculation 41 Approximate Energy Requirements Using 1960 kcal/Kg Calculation Used for Recommendations Kcal/kg Additional Notes PRO needs: 60-75g (1.2-1.5g/kg ) Fluid needs:1-1.5 L/day ( Anuric ESRD-HD) Nutrition Intervention Change Diet Order: When Medically Able Advance Diet to Regular Add Supplement/Snack (indicate name/kcal Ensure Clear once daily /protein ) Provides kCal: 240 Provides Protein (gm) 8 Goal #1 Continue to meet atleast 80% PRO/kcal needs via PO and ONS intakes Goal #2 Wt gain/maintenance Anticipated Discharge Needs: Renal Diet with ONS PRN Follow-Up By: 03/18/19 Additional Comments Follow for PO and ONS intakes, Renal Labs
--- NOTE | 2019-03-15 16:03 | Ultrasound Report ---
Ultrasound-guided thoracentesis HISTORY: Left pleural effusion. Chronic dyspnea COMPARISON: CT chest from 03/09/2019 PROCEDURE: The risks (including but not limited to bleeding, infection, and pneumothorax) and benefi ts were explained to the patient and informed consent was obtained. A time out procedure was perform ed. Ultrasound was used to evaluate the left pleural effusion and locate the optimal site for needle entr y. Once the skin was marked, the procedure site was prepped and draped in the usual sterile fashion and lidocaine was used for local anesthesia. A skin ezequiel was made and a 6-[place] thoracentesis [address] ter was placed. The patient was monitored closely throughout the procedure, and a total of 700 mL of straw-colored fluid was aspirated. The patient tolerated the procedure well with no complications. A post-procedure chest x-ray was imm ediately ordered. IMPRESSION: Successful thoracentesis as above with a total of 700 mL of straw-colored fluid aspirated . Signer Name: Giacomo Garces MD Signed: 03/14/2019 4:08 PM Workstation Name: [id number]
[2019-03-16] MEDS: diphenhydrAMINE 50 MG/ML VIAL IV PRN ×2 (06:15→15:48)
[2019-03-16] MEDS: oxyCODONE 5 MG TAB PO PRN ×2 (06:15→15:47)
[2019-03-16 08:24] LABS: Hemoglobin 10.4 gm/dl (11.8-15.2); Mean Corpuscular HGB Conc 31 % (32-34); Mean Corpuscular Volume 100 fl (84-94); Red Blood Count 3.31 M/mm3 (3.65-5.03)
[2019-03-16 08:39] LABS: Platelet Count 75 K/mm3 (140-440)
[2019-03-16 08:50] LABS: Calcium 8.2 mg/dL (8.4-10.2)
[2019-03-16] MEDS: INSULIN LISPRO 100 UNIT/ML SUB-Q SCH ×2 (08:57→12:57)
--- NOTE | 2019-03-16 10:07 | Progress Note ---
Assessment and Plan 1. ESRD: Continue hemodialysis three times a week, TTS schedule. 2. FEN: Hyperkalemia, HD today. On maintenance HD. Renal diet. Monitor. 3. L sided pleural effusion: Followed by Pulmonary and Vascular. 4. A.fib: Rate controlled. 5. HTN. 6. Anemia: Epogen if needed. 7. PAD. Examination: General appearance: well-developed, appears stated age, no distress EENT: ATNC, ELENI, mucous membranes moist, hearing intact, vision intact Neck: supple Respiratory: Clear to auscultate, decreased breath sound on the L side Cardiology: irregular, S1S2, no murmur Gastrointestinal: normoactive bowel sounds, no tenderness, no distended Integumentary: no rash, warm and dry Neurologic: no focal deficit, no asterixis, alert and oriented x3 Musculoskeletal: no edema, L forearm amputated Hemodialysis access: R IJ tunnel catheter Subjective Date of service: 03/16/19 Principal diagnosis: low plt Interval history: Patient was seen and examined at the bedside. No new complaint. Doing ok. Objective - Vital Signs Vital signs: Vital Signs - 12hr 03/16/19 03/16/19 03/16/19 00:02 04:22 08:21 Temperature 98.7 F 98.2 F 98.6 F Pulse Rate 69 71 77 Respiratory 20 20 14 Rate Blood Pressure 112/73 125/79 107/71 O2 Sat by Pulse 86 100 96 Oximetry 03/16/19 09:25 Temperature Pulse Rate Respiratory Rate Blood Pressure O2 Sat by Pulse 100 Oximetry - Lab 03/16/19 07:58 03/16/19 07:58 Most recent lab results Calcium 8.2 mg/dL (8.4-10.2) L 03/16/19 07:58 Medications & Allergies - Medications Allergies/Adverse Reactions: Allergies aspirin Allergy (Verified 02/20/19 22:06) Unknown stomach cramps pork derived (porcine) Allergy (Verified 02/20/19 22:06) Rash venom-honey bee [bee venom (honey bee)] Allergy (Verified 02/20/19 22:06) Anaphylaxis Pork/Porcine Containing Products Adverse Reaction (Severe, Verified 02/20/19 22:06) Nausea,VOMITING Home Medications: Home Medications Medication Instructions Recorded Confirmed Last Taken Type AtorvaSTATin [Lipitor] 40 mg PO QHS #30 tablet 12/29/18 03/07/19 01/01/19 Rx Famotidine [Pepcid] 10 mg PO BID #15 tablet 12/29/18 03/07/19 01/01/19 Rx amLODIPine [Norvasc] 10 mg PO DAILY #30 tablet 12/29/18 03/07/19 01/01/19 Rx hydrALAZINE [Apresoline TAB] 50 mg PO BID #60 tablet 12/29/18 03/07/19 01/01/19 Rx Carvedilol [Coreg] 25 mg PO BID #60 tablet 01/17/19 03/07/19 Unknown Rx Oxycodone HCl [oxyCODONE] 10 mg PO Q6H PRN #10 tablet 01/23/19 03/07/19 Unknown Rx diphenhydrAMINE [Benadryl CAP] 50 mg PO Q3D PRN 01/30/19 03/07/19 Unknown History Epoetin Prashant 10,000 Unit [Procrit] 10,000 unit SUB-Q KATERYNA PRN vial 02/02/19 03/07/19 Unknown Rx Lisinopril [Zestril TAB] 5 mg PO QDAY #30 tablet 02/02/19 03/07/19 Unknown Rx HYDROcodone/APAP 5-325 [[place] 1 each PO Q6HR PRN #12 tablet 02/21/19 03/07/19 Unknown Rx 5-325 mg TAB] Ondansetron [Zofran ODT TAB] 4 mg PO Q8HR PRN #14 tab.rapdis 02/28/19 03/07/19 Unknown Rx traMADol [Ultram 50 MG tab] 50 mg PO Q4HR PRN #14 tablet 02/28/19 03/07/19 Unknown Rx Active Medications: Generic Name Dose Route Start Last Admin Trade Name Freq PRN Reason Stop Dose Admin Acetaminophen 650 mg 03/07/19 23:22 03/09/19 23:24 Tylenol PO 650 mg Q4H PRN Administration Pain MILD(1-3)/Fever >100.5/DOUGLAS Acetaminophen/Hydrocodone Bitart 1 each 03/09/19 09:15 03/13/19 17:48 [place] 5/325 PO 1 each Q6H PRN Administration Pain, Moderate (4-6) Amlodipine Besylate 10 mg 03/09/19 10:00 03/15/19 11:20 Norvasc PO 10 mg DAILY BEAN Administration Atorvastatin Calcium 40 mg 03/09/19 22:00 03/15/19 21:53 Lipitor PO 40 mg QHS BEAN Administration Carvedilol 25 mg 03/09/19 10:00 03/15/19 21:54 Coreg PO 25 mg BID BEAN Administration Dextrose 50 ml 03/08/19 12:40 D50w (25gm) Syringe IV PRN PRN Hypoglycemia Diphenhydramine HCl 25 mg 03/09/19 11:15 03/16/19 06:15 Benadryl IV 25 mg Q6H PRN Administration Itching Epoetin Prashant 10,000 unit 03/09/19 09:15 03/14/19 12:56 Procrit SUB-Q 10,000 unit KATERYNA PRN Administration hemodialysis Famotidine 10 mg 03/09/19 10:00 03/15/19 21:53 Pepcid PO 10 mg BID BEAN Administration Hydralazine HCl 10 mg 03/08/19 02:02 03/09/19 15:20 Apresoline IV 10 mg Q4H PRN Administration Hypertension Hydralazine HCl 50 mg 03/09/19 10:00 03/15/19 21:55 Apresoline PO 50 mg BID BEAN Administration Sodium Chloride 100 mls @ 999 mls/hr 03/12/19 09:13 Nacl 0.9% IV KATERYNA PRN Hypotension Insulin Human Lispro 0 unit 03/08/19 16:30 03/15/19 21:56 Humalog SUB-Q Not Given ACHS [facility] Protocol Losartan Potassium 100 mg 03/09/19 13:00 03/15/19 11:19 Cozaar PO 100 mg QDAY BEAN Administration Morphine Sulfate 4 mg 03/08/19 09:33 03/13/19 05:36 Morphine IV 4 mg Q4H PRN Administration Pain , Severe (7-10) Ondansetron HCl 4 mg 03/07/19 23:22 03/12/19 14:03 Zofran IV 4 mg Q8H PRN Administration Nausea And Vomiting Oxycodone HCl 10 mg 03/09/19 10:24 03/16/19 06:15 Roxicodone PO 10 mg Q6H PRN Administration Pain , Severe (7-10) Sodium Chloride 10 ml 03/08/19 10:00 03/15/19 21:55 Sodium Chloride Flush Syringe 10 Ml IV 10 ml BID BEAN Administration Sodium Chloride 10 ml 03/07/19 23:22 03/16/19 06:19 Sodium Chloride Flush Syringe 10 Ml IV 10 ml PRN PRN Administration LINE FLUSH Tramadol HCl 50 mg 03/09/19 09:15 Ultram PO Q4H PRN Pain
[2019-03-16] MEDS: FAMOTIDINE 10 MG TAB PO SCH (10:16)
[2019-03-16] MEDS: amLODIPine 10 MG TAB PO SCH (10:50)
[2019-03-16] MEDS: hydrALAZINE 25 MG TAB PO SCH (10:58)
[2019-03-16] MEDS: carvediloL 25 MG TAB PO SCH (10:58)
[2019-03-16] MEDS: LOSARTAN 50 MG TAB PO SCH (10:59)
--- NOTE | 2019-03-16 11:47 | Progress Note ---
Assessment and Plan - Patient Problems (1) Atrial fibrillation Current Visit: Yes Status: Acute Qualifiers: Atrial fibrillation type: chronic Qualified Code(s): I48.2 - Chronic atrial fibrillation Plan to address problem: Patient has a dilated cardiomyopathy, chronic systolic heart failure and chronic atrial fibrillation. We will continue guideline directed medical therapy as previously outlined. Subjective Date of service: 03/16/19 Principal diagnosis: low plt Interval history: Patient is comfortable, no cardiac complaints, looks and feels better. Objective Vital Signs Temp Pulse Resp Resp Resp BP Pulse Ox 03/16/19 09:25 100 03/16/19 08:21 98.6 F 77 14 107/71 96 03/16/19 04:22 98.2 F 71 20 125/79 100 03/16/19 00:02 98.7 F 69 20 112/73 86 03/15/19 21:55 87 108/80 03/15/19 21:54 87 108/80 03/15/19 21:37 100 03/15/19 20:09 98.9 F 65 20 108/80 100 03/15/19 19:20 75 03/15/19 15:57 99.0 F 59 L 20 145/59 99 03/15/19 13:00 20 20 03/15/19 12:22 20 - Physical Examination General: No Apparent Distress HEENT: Positive: PERRL Neck: Positive: trachea midline Cardiac: Positive: irregularly irregular Lungs: Positive: Decreased Breath Sounds Neuro: Positive: Grossly Intact Abdomen: Positive: Unremarkable Skin: Positive: Clear Extremities: Absent: edema - Labs and Meds CBC 03/15/19 03/16/19 Range/Units 05:35 07:58 WBC 3.1 L 3.1 L (4.5-11.0) K/mm3 RBC 3.47 L 3.31 L (3.65-5.03) M/mm3 Hgb 10.9 L 10.4 L (11.8-15.2) gm/dl Hct 34.1 L 33.0 L (35.5-45.6) % Plt Count 56 L 75 L (140-440) K/mm3 Comprehensive Metabolic Panel 03/16/19 Range/Units 07:58 Sodium 135 L (137-145) mmol/L Potassium 5.5 H (3.6-5.0) mmol/L Chloride 97.6 L (98-107) mmol/L Carbon Dioxide 20 L (22-30) mmol/L BUN 40 H (9-20) mg/dL Creatinine 5.9 H (0.8-1.5) mg/dL Glucose 132 H (75-100) mg/dL Calcium 8.2 L (8.4-10.2) mg/dL
--- NOTE | 2019-03-16 12:01 | Hem/Onc Progress Note ---
Assessment and Plan 1. Leukopenia, neutrophils is 1.7 in the recent past. The cause of low white cell count will be multifactorial, medication may have a role. It may also be a marrow issue. 2. Anemia. MCV is on the higher side. B12, folate was normal. This may be a marrow issue or medication related or radicular related. 3. Thrombocytopenia. Multiple differentials include medications versus production issues. CT scan did not show any splenomegaly in the past. 4. Renal failure, on dialysis. 5. Pleural effusion, testing was negative on pathology. 6. In April 2018, HIT antibodies was negative. 7. History of congestive heart failure. 8. Atrial fibrillation, was on Eliquis. 9. Hypertension. 10. Hyperlipidemia. 11. History of C. diff, status post vancomycin. We have the option of looking into a bone marrow biopsy for the cytopenia, further thoracentesis. We have option of transfusion support and doing the procedure if that is needed at this time. bmbx done 03/15 OP follow up an option - Patient Problems (1) Thrombocytopenia Current Visit: No Status: Acute Subjective Date of service: 03/16/19 Principal diagnosis: low plt Interval history: s/p bmbx Objective - Exam Narrative Exam: Pain - left sided pain - chest and abdomen and shoulder General appearance - emaciated Performance status limited self care Eyes - no icterus, ENT - no bleeding LNs cervical not palpable Neck - no LN Respiratory Normal Breath sounds - CTA CVS S1 S2 + Extremities no calf tenderness General GI Soft Rectal deferred male - deferred Skin warm - HD cath rt chest Musculoskeletal moves extremities - left below elbow amputation Neurologically awake - oriented - Constitutional Vitals: Last Vital Signs Temp 98.6 F 03/16/19 08:21 Pulse 77 03/16/19 08:21 Resp 14 03/16/19 08:21 BP 107/71 03/16/19 08:21 Pulse Ox 100 03/16/19 09:25 - Labs Lab Results: Laboratory Results - last 24 hr 03/15/19 03/15/19 03/15/19 05:35 11:49 21:39 WBC 3.1 L RBC 3.47 L Hgb 10.9 L Hct 34.1 L MCV 98 H MCH 31 MCHC 32 RDW 15.6 H Plt Count 56 L Total Counted 100 Seg Neuts % (Manual) 63.0 Band Neutrophils % 0 Lymphocytes % (Manual) 26.0 Reactive Lymphs % (Man) 4.0 Monocytes % (Manual) 5.0 Eosinophils % (Manual) 2.0 Basophils % (Manual) 0 Metamyelocytes % 0 Myelocytes % 0 Promyelocytes % 0 Blast Cells % 0 Nucleated RBC % Not Reportable Seg Neutrophils # Man 2.0 Band Neutrophils # 0.0 Lymphocytes # (Manual) 0.8 L Abs React Lymphs (Man) 0.1 Monocytes # (Manual) 0.2 Eosinophils # (Manual) 0.1 Basophils # (Manual) 0.0 Metamyelocytes # 0.0 Myelocytes # 0.0 Promyelocytes # 0.0 Blast Cells # 0.0 Pathologist Review WBC Morphology Not Reportable Hypersegmented Neuts Not Reportable Hyposegmented Neuts Not Reportable Hypogranular Neuts Not Reportable Smudge Cells Not Reportable Toxic Granulation Not Reportable Toxic Vacuolation Not Reportable Dohle Bodies Not Reportable Pelger-Huet Anomaly Not Reportable Gertrude Rods Not Reportable Platelet Estimate Consistent w auto Clumped Platelets Not Reportable Plt Clumps, EDTA Not Reportable Large Platelets Rare Giant Platelets Not Reportable Platelet Satelliting Not Reportable Plt Morphology Comment Not Reportable RBC Morphology Not Reportable Dimorphic RBCs Not Reportable Polychromasia Not Reportable Hypochromasia Not Reportable Poikilocytosis Few Anisocytosis Few Microcytosis Not Reportable Macrocytosis Not Reportable Spherocytes Not Reportable Pappenheimer Bodies Not Reportable Sickle Cells Not Reportable Target Cells Not Reportable Tear Drop Cells Not Reportable Ovalocytes Not Reportable Helmet Cells Not Reportable [place] Bodies Not Reportable [place] Rings Not Reportable Priya Cells Not Reportable Bite Cells Not Reportable Crenated Cell Not Reportable Elliptocytes Not Reportable Acanthocytes (Spur) Not Reportable Rouleaux Not Reportable Hemoglobin C Crystals Not Reportable Schistocytes Not Reportable Malaria parasites Not Reportable Jacob Bodies Not Reportable Hem Pathologist Commnt Sent to pathology Sodium Potassium Chloride Carbon Dioxide Anion Gap BUN Creatinine Estimated GFR BUN/Creatinine Ratio Glucose POC Glucose 113 H 100 Calcium 03/16/19 03/16/19 03/16/19 07:58 07:58 08:26 WBC 3.1 L RBC 3.31 L Hgb 10.4 L Hct 33.0 L MCV 100 H MCH 31 MCHC 31 L RDW 16.0 H Plt Count 75 L Total Counted Seg Neuts % (Manual) Band Neutrophils % Lymphocytes % (Manual) Reactive Lymphs % (Man) Monocytes % (Manual) Eosinophils % (Manual) Basophils % (Manual) Metamyelocytes % Myelocytes % Promyelocytes % Blast Cells % Nucleated RBC % Seg Neutrophils # Man Band Neutrophils # Lymphocytes # (Manual) Abs React Lymphs (Man) Monocytes # (Manual) Eosinophils # (Manual) Basophils # (Manual) Metamyelocytes # Myelocytes # Promyelocytes # Blast Cells # Pathologist Review WBC Morphology Hypersegmented Neuts Hyposegmented Neuts Hypogranular Neuts Smudge Cells Toxic Granulation Toxic Vacuolation Dohle Bodies Pelger-Huet Anomaly Gertrude Rods Platelet Estimate Clumped Platelets Plt Clumps, EDTA Large Platelets Giant Platelets Platelet Satelliting Plt Morphology Comment RBC Morphology Dimorphic RBCs Polychromasia Hypochromasia Poikilocytosis Anisocytosis Microcytosis Macrocytosis Spherocytes Pappenheimer Bodies Sickle Cells Target Cells Tear Drop Cells Ovalocytes Helmet Cells [place] Bodies [place] Rings Priya Cells Bite Cells Crenated Cell Elliptocytes Acanthocytes (Spur) Rouleaux Hemoglobin C Crystals Schistocytes Malaria parasites Jacob Bodies Hem Pathologist Commnt Sodium 135 L Potassium 5.5 H Chloride 97.6 L Carbon Dioxide 20 L Anion Gap 23 BUN 40 H Creatinine 5.9 H Estimated GFR 11 BUN/Creatinine Ratio 7 Glucose 132 H POC Glucose 181 H Calcium 8.2 L 03/16/19 11:46 WBC RBC Hgb Hct MCV MCH MCHC RDW Plt Count Total Counted Seg Neuts % (Manual) Band Neutrophils % Lymphocytes % (Manual) Reactive Lymphs % (Man) Monocytes % (Manual) Eosinophils % (Manual) Basophils % (Manual) Metamyelocytes % Myelocytes % Promyelocytes % Blast Cells % Nucleated RBC % Seg Neutrophils # Man Band Neutrophils # Lymphocytes # (Manual) Abs React Lymphs (Man) Monocytes # (Manual) Eosinophils # (Manual) Basophils # (Manual) Metamyelocytes # Myelocytes # Promyelocytes # Blast Cells # Pathologist Review WBC Morphology Hypersegmented Neuts Hyposegmented Neuts Hypogranular Neuts Smudge Cells Toxic Granulation Toxic Vacuolation Dohle Bodies Pelger-Huet Anomaly Gertrude Rods Platelet Estimate Clumped Platelets Plt Clumps, EDTA Large Platelets Giant Platelets Platelet Satelliting Plt Morphology Comment RBC Morphology Dimorphic RBCs Polychromasia Hypochromasia Poikilocytosis Anisocytosis Microcytosis Macrocytosis Spherocytes Pappenheimer Bodies Sickle Cells Target Cells Tear Drop Cells Ovalocytes Helmet Cells Merc[place] Bodies [place] Rings [place] Cells Bite Cells Crenated Cell Elliptocytes Acanthocytes (Spur) Rouleaux Hemoglobin C Crystals Schistocytes Malaria parasites Jacob Bodies Hem Pathologist Commnt Sodium Potassium Chloride Carbon Dioxide Anion Gap BUN Creatinine Estimated GFR BUN/Creatinine Ratio Glucose POC Glucose 79 Calcium Medications & Allergies - Medications Allergies/Adverse Reactions: Allergies aspirin Allergy (Verified 02/20/19 22:06) Unknown stomach cramps pork derived (porcine) Allergy (Verified 02/20/19 22:06) Rash venom-honey bee [bee venom (honey bee)] Allergy (Verified 02/20/19 22:06) Anaphylaxis Pork/Porcine Containing Products Adverse Reaction (Severe, Verified 02/20/19 22: 06) Nausea,VOMITING Home Medications: Home Medications Medication Instructions Recorded Confirmed Last Taken Type AtorvaSTATin [Lipitor] 40 mg PO QHS #30 tablet 12/29/18 03/07/19 01/01/19 Rx Famotidine [Pepcid] 10 mg PO BID #15 tablet 12/29/18 03/07/19 01/01/19 Rx amLODIPine [Norvasc] 10 mg PO DAILY #30 tablet 12/29/18 03/07/19 01/01/19 Rx hydrALAZINE [Apresoline TAB] 50 mg PO BID #60 tablet 12/29/18 03/07/19 01/01/19 Rx Carvedilol [Coreg] 25 mg PO BID #60 tablet 01/17/19 03/07/19 Unknown Rx Oxycodone HCl [oxyCODONE] 10 mg PO Q6H PRN #10 tablet 01/23/19 03/07/19 Unknown Rx diphenhydrAMINE [Benadryl CAP] 50 mg PO Q3D PRN 01/30/19 03/07/19 Unknown History Epoetin Prashant 10,000 Unit [Procrit] 10,000 unit SUB-Q KATERYNA PRN vial 02/02/19 03/07/19 Unknown Rx Lisinopril [Zestril TAB] 5 mg PO QDAY #30 tablet 02/02/19 03/07/19 Unknown Rx HYDROcodone/APAP 5-325 [[place] 1 each PO Q6HR PRN #12 tablet 02/21/19 03/07/19 Unknown Rx 5-325 mg TAB] Ondansetron [Zofran ODT TAB] 4 mg PO Q8HR PRN #14 tab.rapdis 02/28/19 03/07/19 Unknown Rx traMADol [Ultram 50 MG tab] 50 mg PO Q4HR PRN #14 tablet 02/28/19 03/07/19 Unknown Rx Active Medications: Generic Name Dose Route Start Last Admin Trade Name Freq PRN Reason Stop Dose Admin Acetaminophen 650 mg 03/07/19 23:22 03/09/19 23:24 Tylenol PO 650 mg Q4H PRN Administration Pain MILD(1-3)/Fever >100.5/DOUGLAS Acetaminophen/Hydrocodone Bitart 1 each 03/09/19 09:15 03/13/19 17:48 [place] 5/325 PO 1 each Q6H PRN Administration Pain, Moderate (4-6) Amlodipine Besylate 10 mg 03/09/19 10:00 03/15/19 11:20 Norvasc PO 10 mg DAILY BEAN Administration Atorvastatin Calcium 40 mg 03/09/19 22:00 03/15/19 21:53 Lipitor PO 40 mg QHS BEAN Administration Carvedilol 25 mg 03/09/19 10:00 03/15/19 21:54 Coreg PO 25 mg BID BEAN Administration Dextrose 50 ml 03/08/19 12:40 D50w (25gm) Syringe IV PRN PRN Hypoglycemia Diphenhydramine HCl 25 mg 03/09/19 11:15 03/16/19 06:15 Benadryl IV 25 mg Q6H PRN Administration Itching Epoetin Prashant 10,000 unit 03/09/19 09:15 03/14/19 12:56 Procrit SUB-Q 10,000 unit KATERYNA PRN Administration hemodialysis Famotidine 10 mg 03/09/19 10:00 03/16/19 10:16 Pepcid PO 10 mg BID BEAN Administration Hydralazine HCl 10 mg 03/08/19 02:02 03/09/19 15:20 Apresoline IV 10 mg Q4H PRN Administration Hypertension Hydralazine HCl 50 mg 03/09/19 10:00 03/15/19 21:55 Apresoline PO 50 mg BID BEAN Administration Sodium Chloride 100 mls @ 999 mls/hr 03/12/19 09:13 Nacl 0.9% IV KATERYNA PRN Hypotension Insulin Human Lispro 0 unit 03/08/19 16:30 03/15/19 21:56 Humalog SUB-Q Not Given ACHS [facility] Protocol Losartan Potassium 100 mg 03/09/19 13:00 03/15/19 11:19 Cozaar PO 100 mg QDAY BEAN Administration Morphine Sulfate 4 mg 03/08/19 09:33 03/13/19 05:36 Morphine IV 4 mg Q4H PRN Administration Pain , Severe (7-10) Ondansetron HCl 4 mg 03/07/19 23:22 03/12/19 14:03 Zofran IV 4 mg Q8H PRN Administration Nausea And Vomiting Oxycodone HCl 10 mg 03/09/19 10:24 03/16/19 06:15 Roxicodone PO 10 mg Q6H PRN Administration Pain , Severe (7-10) Sodium Chloride 10 ml 03/08/19 10:00 03/15/19 21:55 Sodium Chloride Flush Syringe 10 Ml IV 10 ml BID BEAN Administration Sodium Chloride 10 ml 03/07/19 23:22 03/16/19 06:19 Sodium Chloride Flush Syringe 10 Ml IV 10 ml PRN PRN Administration LINE FLUSH Tramadol HCl 50 mg 03/09/19 09:15 Ultram PO Q4H PRN Pain
--- NOTE | 2019-03-16 12:28 | Discharge Summary ---
Providers - Providers Date of Admission: 03/07/19 23:07 Date of discharge: 03/17/19 Attending physician: JEAN RIDDLE 03/08/19 02:09 Consult to Physician [CONS] Routine Comment: Consulting Provider: KENNY PINEDA Physician Instructions: Reason For Exam: Pleural effusion 03/08/19 14:24 Consult to Physician [CONS] Routine Comment: Consulting Provider: WOLF BAH Physician Instructions: Reason For Exam: for Pleur-x cath, recurrent L effusion 03/09/19 08:40 Consult to Physician [CONS] Routine Comment: Consulting Provider: LYRIC DIAMOND Physician Instructions: Reason For Exam: ESRD 03/09/19 11:06 Consult to Physician [CONS] Routine Comment: Consulting Provider: COLLEEN SAGE Physician Instructions: Reason For Exam: Afib' elevated Troponin 03/13/19 08:06 Consult to Physician [CONS] Routine Comment: Consulting Provider: LESLIE BOX Physician Instructions: Reason For Exam: thrombocytopenia 03/14/19 07:17 Consult to Interventional Radiology [CONS] Routine Consulting Provider: WOLF NICK Reason For Exam: ct guided bone marrow as and bx Place consult to:: Dr. Nick Notified:: Cata HIGGINS Phone number called:: Was contact made?: Yes If yes, spoke with:: Donald-office Time called:: 08:49 Primary care physician: SUPERVISOR CORDUROY CUTTING Hospitalization Condition: Stable Hospital course: Patient is a 72 yo left arm amputee chronically disable man with a plethora of severe co-morbidities including recurrent left sided pleural effusion s/p thoracentesis almost every 2 weeks, ESRD on HD, Afib on Eliquis, Systolic heart failure with NICMP (most recent left ventricular function assessment showing an ejection fraction of 25-30%.), DVT, PTSD, AOCD, Right upper extermity chronic ulcer, C. Diffe and hypertension who presented with chest pains and SOB. Patient has many ED visits with multiple admissions since 01/21/19. In December 2018, he had 5 ED visits. In January 2019 he had 6 ED visits. So far in February 2019, he has 3 ED visits. Multiple ED visits for falling out the bed, and one visit for falling out the wheelchair, one ED visit for Chest pains. Currently admitted for Recurrent pleural effusion. Pleurx cath was scheduled to be done to prevent recurrent admission for thoracentesis but unable to be done due to thrombocytopenia/pancytopenia, so Heme/Onc consulted, d/w Dr. Box ordered Bone Marrow Bx, which was done on 03/15/19. Patient was given platelet transfusion and thoracentesis was done on 03/14/19. Discharge Diagnoses: Recurrent Moderate symptomatic Left pleural effusion: s/p Thoracentesis 03/14/19 Chronic thrombocytopenia since 2014 in our EMR s/p 2 units of pharesis plt: mo nitor cbc closely, consulted Heme/Onc Anemia of chronic renal disease: monitor cbc closely, EPO with HD ESRD on Hemodialysis: Nephrology following Afib on Eliquis: held Eliquis for thoracentesis and pancytopenia/severely plt and low h/h Chest pains with chronic elevated troponin: Cardiology consulted, input noted Hypertension urgency: low salt diet, iv hydralazine prn History of Clostriodioides difficile colitis infection s/p oral Vancomycin 125 mg po QID x 10 days Hepatitis C: GI referral outpatient Severe malnutrition, bmi 15.3, poa: encourage Ensure shakes Constipation: dulcolax pr x 1 Chronic pain sydrome: on chronic narcotics 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, 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[place] 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 02/28/2019 TRAMADOL HCL 50 MG TABLET 14.0 7 MO ELB; 02/23/2019, 02/05/2019 OXYCODONE HCL 10 MG TABLET 120.0 Disposition: DC/TX-06 HOME UNDER HOME HL Time spent for discharge: 32 minutes Core Measure Documentation - Palliative Care Palliative Care/ Comfort Measures: Not Applicable - Core Measures Any of the following diagnoses?: none - VTE Discharge Requirements Deep Vein Thrombosis/Pulmonary Embolism Present on Admission: No Has pt received <5 days of overlap therapy or INR<2.0: No Anticoagulant overlap therapy prescribed at discharge: No Contraindication No Overlap Therapy order at DC: Not Indicated Exam - Physical Exam Narrative exam: Gen: thin frial, chronic ill appearing, NAD, Awake, Alert, Orientated HEENT: NCAT, EOMI, PERRL, OP Clear Neck: supple, no adenopathy, no thyromegaly, no JVD CVS/Heart: RRR, normal S1S2, pulses present bilaterally Chest/Lungs: diminished left bs, Symmetrical chest expansion, good air entry right GI/Abdomen: soft, NTND, good bowel sounds, no guarding or rebound /Bladder: no suprapubic tenderness, no CVA or paraspinal tenderness Extermity/Skin: no c/c/e, no obvious rash MSK: FROM x 3, left forearm amputated Neuro: CN 2-12 grossly intact, no new focal deficits Psych: calm - Constitutional Vitals: Temp Pulse Resp BP Pulse Ox 98.6 F 77 14 107/71 100 03/16/19 08:21 03/16/19 08:21 03/16/19 08:21 03/16/19 08:21 03/16/19 09:25 Plan Activity: up only with assistance, fall precautions, other (no strenous activity) Diet: renal Additional Instructions: --see Dr. Urbina regarding hepatitis C. --follow with Dr. Box for test results of the Bone marrow biopsy Follow up with: PRIMARY CAREMD [Primary Care Provider] - 3-5 Days NIGEL URBINA MD [Staff Physician] - 7 Days LESLIE BOX MD [Staff Physician] - 7 Days COLLEEN SAGE MD [Staff Physician] - 7 Days LYRIC DIAMOND MD [Staff Physician] - 7 Days Prescriptions: Polyethylene Glycol 3350 [Miralax 3350] 17 gm PO QDAY PRN #15 packet PRN Reason: Constipation oxyCODONE [roxiCODONE] 2 tab PO Q6H PRN #30 tablet PRN Reason: Pain , Severe (7-10)
--- NOTE | 2019-03-16 12:34 | Progress Note ---
Assessment and Plan Assessment and plan: Patient is a 71 yo chronic disable man with a plethora of severe co-morbidities including recurrent left sided pleural effusion s/p thoracentesis almost every 2 weeks, ESRD on HD, Afib on Eliquis, Systolic heart failure with NICMP (most recent left ventricular function assessment showing an ejection fraction of 25- 30%.), DVT, PTSD, AOCD, Right upper extermity chronic ulcer, C. Diffe and hypertension who presented with chest pains and SOB. Patient has many ED visits with multiple admissions since 01/21/19. In December 2018, he had 5 ED visits. In January 2019 he had 6 ED visits. So far in February 2019, he has 3 ED visits. Multiple ED visits for falling out the bed, and one visit for falling out the wh eelchair, one ED visit for Chest pains. Currently admitted for Recurrent pleural effusion. Recurrent Moderate symptomatic Left pleural effusion: Order Thoracentesis Chronic thrombocytopenia since 2014 in our EMR s/p 2 units of pharesis plt: monitor cbc closely, consulted Heme/Onc Anemia of chronic renal disease: monitor cbc closely, EPO with HD ESRD on Hemodialysis: Nephrology following Afib on Eliquis: held Eliquis for thoracentesis and low plt/hbg Chest pains with chronic elevated troponin: Cardiology is following Hypertension urgency: low salt diet, iv hydralazine prn History of Clostriodioides difficile colitis infection s/p oral Vancomycin 125 mg po QID x 10 days Hepatitis C Pleurx cath not done due to thrombocytopenia, so Heme/Onc consulted, d/w Dr. Box who will order Bone Marrow Bx as patient is pancytopenic and Ok for thoracentesis. Disposition: hemodialysis then home History Interval history: Patient was seen and examined. Follow-up on current diagnosis of left pleural effusion. No overnight events reported to me. Patient denies any chest pain, shortness breath, nausea/vomiting or severe headaches. Imaging, nursing note, luis felipe alvarez, labs and old chart reviewed. Discussed with patient. Hospitalist Physical - Physical exam Narrative exam: Gen: thin frial, chronic ill appearing, NAD, Awake, Alert, Orientated HEENT: NCAT, EOMI, PERRL, OP Clear Neck: supple, no adenopathy, no thyromegaly, no JVD CVS/Heart: RRR, normal S1S2, pulses present bilaterally Chest/Lungs: diminished left bs, Symmetrical chest expansion, good air entry r ight GI/Abdomen: soft, NTND, good bowel sounds, no guarding or rebound /Bladder: no suprapubic tenderness, no CVA or paraspinal tenderness Extermity/Skin: no c/c/e, no obvious rash MSK: FROM x 3, left forearm amputated Neuro: CN 2-12 grossly intact, no new focal deficits Psych: calm - Constitutional Vitals: Temp Pulse Resp BP Pulse Ox 98.6 F 77 14 107/71 100 03/16/19 08:21 03/16/19 08:21 03/16/19 08:21 03/16/19 08:21 03/16/19 09:25 General appearance: Present: no acute distress, well-nourished Results - Labs CBC & Chem 7: 03/16/19 07:58 03/16/19 07:58 Labs: Laboratory Last Values WBC 3.1 K/mm3 (4.5-11.0) L 03/16/19 07:58 RBC 3.31 M/mm3 (3.65-5.03) L 03/16/19 07:58 Hgb 10.4 gm/dl (11.8-15.2) L 03/16/19 07:58 Hct 33.0 % (35.5-45.6) L 03/16/19 07:58 MCV 100 fl (84-94) H 03/16/19 07:58 MCH 31 pg (28-32) 03/16/19 07:58 MCHC 31 % (32-34) L 03/16/19 07:58 RDW 16.0 % (13.2-15.2) H 03/16/19 07:58 Plt Count 75 K/mm3 (140-440) L 03/16/19 07:58 Lymph % (Auto) 22.7 % (13.4-35.0) 03/12/19 05:26 [place] % (Auto) 8.3 % (0.0-7.3) H 03/12/19 05:26 Eos % (Auto) 2.4 % (0.0-4.3) 03/12/19 05:26 Baso % (Auto) 0.9 % (0.0-1.8) 03/12/19 05:26 Lymph # 0.6 K/mm3 (1.2-5.4) L 03/12/19 05:26 [place] # 0.2 K/mm3 (0.0-0.8) 03/12/19 05:26 Eos # 0.1 K/mm3 (0.0-0.4) 03/12/19 05:26 Baso # 0.0 K/mm3 (0.0-0.1) 03/12/19 05:26 Add Manual Diff Complete 03/10/19 04:52 Total Counted 100 03/15/19 05:35 Seg Neutrophils % 65.7 % (40.0-70.0) 03/12/19 05:26 Seg Neuts % (Manual) 63.0 % (40.0-70.0) 03/15/19 05:35 0 % 03/15/19 05:35 26.0 % (13.4-35.0) 03/15/19 05:35 Reactive Lymphs % (Man) 4.0 % 03/15/19 05:35 5.0 % (0.0-7.3) 03/15/19 05:35 2.0 % (0.0-4.3) 03/15/19 05:35 0 % (0.0-1.8) 03/15/19 05:35 0 % 03/15/19 05:35 0 % 03/15/19 05:35 0 % 03/15/19 05:35 0 % 03/15/19 05:35 Nucleated RBC % Not Reportable 03/15/19 05:35 Seg Neutrophils # 1.7 K/mm3 (1.8-7.7) L 03/12/19 05:26 Seg Neutrophils # Man 2.0 K/mm3 (1.8-7.7) 03/15/19 05:35 Band Neutrophils # 0.0 K/mm3 03/15/19 05:35 0.8 K/mm3 (1.2-5.4) L 03/15/19 05:35 Abs React Lymphs (Man) 0.1 K/mm3 03/15/19 05:35 0.2 K/mm3 (0.0-0.8) 03/15/19 05:35 0.1 K/mm3 (0.0-0.4) 03/15/19 05:35 0.0 K/mm3 (0.0-0.1) 03/15/19 05:35 0.0 K/mm3 03/15/19 05:35 0.0 K/mm3 03/15/19 05:35 0.0 K/mm3 03/15/19 05:35 Blast Cells # 0.0 K/mm3 03/15/19 05:35 Pathologist Review 03/15/19 05:35 WBC Morphology Not Reportable 03/15/19 05:35 Hypersegmented Neuts Not Reportable 03/15/19 05:35 Hyposegmented Neuts Not Reportable 03/15/19 05:35 Hypogranular Neuts Not Reportable 03/15/19 05:35 Not Reportable 03/15/19 05:35 Not Reportable 03/15/19 05:35 Not Reportable 03/15/19 05:35 Not Reportable 03/15/19 05:35 Not Reportable 03/15/19 05:35 Not Reportable 03/15/19 05:35 Consistent w auto 03/15/19 05:35 Not Reportable 03/15/19 05:35 Plt Clumps, EDTA Not Reportable 03/15/19 05:35 Rare 03/15/19 05:35 Not Reportable 03/15/19 05:35 Not Reportable 03/15/19 05:35 Plt Morphology Comment Not Reportable 03/15/19 05:35 RBC Morphology Not Reportable 03/15/19 05:35 Dimorphic RBCs Not Reportable 03/15/19 05:35 Not Reportable 03/15/19 05:35 Not Reportable 03/15/19 05:35 Few 03/15/19 05:35 Few 03/15/19 05:35 Not Reportable 03/15/19 05:35 Not Reportable 03/15/19 05:35 Not Reportable 03/15/19 05:35 Not Reportable 03/15/19 05:35 Not Reportable 03/15/19 05:35 Not Reportable 03/15/19 05:35 Not Reportable 03/15/19 05:35 Not Reportable 03/15/19 05:35 Not Reportable 03/15/19 05:35 Not Reportable 03/15/19 05:35 Not Reportable 03/15/19 05:35 Not Reportable 03/15/19 05:35 Not Reportable 03/15/19 05:35 Not Reportable 03/15/19 05:35 Not Reportable 03/15/19 05:35 Acanthocytes (Spur) Not Reportable 03/15/19 05:35 Rouleaux Not Reportable 03/15/19 05:35 Not Reportable 03/15/19 05:35 Not Reportable 03/15/19 05:35 Not Reportable 03/15/19 05:35 Not Reportable 03/15/19 05:35 Hem Pathologist Commnt Sent to pathology 03/15/19 05:35 PT 16.5 Sec. (12.2-14.9) H 03/09/19 10:10 INR 1.37 (0.87-1.13) H 03/09/19 10:10 APTT 37.7 Sec. (24.2-36.6) H 03/09/19 10:10 Sodium 135 mmol/L (137-145) L 03/16/19 07:58 Potassium 5.5 mmol/L (3.6-5.0) H 03/16/19 07:58 Chloride 97.6 mmol/L (98-107) L 03/16/19 07:58 Carbon Dioxide 20 mmol/L (22-30) L 03/16/19 07:58 23 mmol/L 03/16/19 07:58 BUN 40 mg/dL (9-20) H 03/16/19 07:58 5.9 mg/dL (0.8-1.5) H 03/16/19 07:58 Estimated GFR 11 ml/min 03/16/19 07:58 7 % 03/16/19 07:58 Glucose 132 mg/dL (75-100) H 03/16/19 07:58 POC Glucose 79 (70-105) 03/16/19 11:46 Calcium 8.2 mg/dL (8.4-10.2) L 03/16/19 07:58 0.70 mg/dL (0.1-1.2) 03/07/19 21:30 0.2 mg/dL (0-0.2) 03/07/19 21:30 0.5 mg/dL 03/07/19 21:30 AST 28 units/L (5-40) 03/07/19 21:30 ALT 25 units/L (7-56) 03/07/19 21:30 135 units/L (35-129) H 03/07/19 21:30 0.266 ng/mL (0.00-0.029) H* 03/08/19 03:28 6.7 g/dL (6.3-8.2) 03/07/19 21:30 3.3 g/dL (3.9-5) L 03/07/19 21:30 1.0 % 03/07/19 21:30 Triglycerides 51 mg/dL (2-149) 03/07/19 21:30 Cholesterol 73 mg/dL (50-199) 03/07/19 21:30 28 mg/dL (50-130) L 03/07/19 21:30 43 mg/dL (40-59) 03/07/19 21:30 1.69 % 03/07/19 21:30 Hepatitis A IgM Ab Non-reactive (NonReactive) 03/13/19 19:29 Hep Bs Antigen Non-reactive (Negative) 03/13/19 19:29 Hep B Core IgM Ab Non-reactive (NonReactive) 03/13/19 19:29 Reactive (NonReactive) A 03/13/19 19:29 Blood Type O POSITIVE 03/11/19 11:20 Active Medications - Current Medications Current Medications: Generic Name Dose Route Start Last Admin Trade Name Freq PRN Reason Stop Dose Admin Acetaminophen 650 mg 03/07/19 23:22 03/09/19 23:24 Tylenol PO 650 mg Q4H PRN Administration Pain MILD(1-3)/Fever >100.5/DOUGLAS Acetaminophen/Hydrocodone Bitart 1 each 03/09/19 09:15 03/13/19 17:48 [place] 5/325 PO 1 each Q6H PRN Administration Pain, Moderate (4-6) Amlodipine Besylate 10 mg 03/09/19 10:00 03/15/19 11:20 Norvasc PO 10 mg DAILY BEAN Administration Atorvastatin Calcium 40 mg 03/09/19 22:00 03/15/19 21:53 Lipitor PO 40 mg QHS BEAN Administration Carvedilol 25 mg 03/09/19 10:00 03/15/19 21:54 Coreg PO 25 mg BID BEAN Administration Dextrose 50 ml 03/08/19 12:40 D50w (25gm) Syringe IV PRN PRN Hypoglycemia Diphenhydramine HCl 25 mg 03/09/19 11:15 03/16/19 06:15 Benadryl IV 25 mg Q6H PRN Administration Itching Epoetin Prashant 10,000 unit 03/09/19 09:15 03/14/19 12:56 Procrit SUB-Q 10,000 unit KATERYNA PRN Administration hemodialysis Famotidine 10 mg 03/09/19 10:00 03/16/19 10:16 Pepcid PO 10 mg BID BEAN Administration Hydralazine HCl 10 mg 03/08/19 02:02 03/09/19 15:20 Apresoline IV 10 mg Q4H PRN Administration Hypertension Hydralazine HCl 50 mg 03/09/19 10:00 03/15/19 21:55 Apresoline PO 50 mg BID BEAN Administration Sodium Chloride 100 mls @ 999 mls/hr 03/12/19 09:13 Nacl 0.9% IV KATERYNA PRN Hypotension Insulin Human Lispro 0 unit 03/08/19 16:30 03/15/19 21:56 Humalog SUB-Q Not Given ACHS [facility] Protocol Losartan Potassium 100 mg 03/09/19 13:00 03/15/19 11:19 Cozaar PO 100 mg QDAY BEAN Administration Morphine Sulfate 4 mg 03/08/19 09:33 03/13/19 05:36 Morphine IV 4 mg Q4H PRN Administration Pain , Severe (7-10) Ondansetron HCl 4 mg 03/07/19 23:22 03/12/19 14:03 Zofran IV 4 mg Q8H PRN Administration Nausea And Vomiting Oxycodone HCl 10 mg 03/09/19 10:24 03/16/19 06:15 Roxicodone PO 10 mg Q6H PRN Administration Pain , Severe (7-10) Sodium Chloride 10 ml 03/08/19 10:00 03/15/19 21:55 Sodium Chloride Flush Syringe 10 Ml IV 10 ml BID BEAN Administration Sodium Chloride 10 ml 03/07/19 23:22 03/16/19 06:19 Sodium Chloride Flush Syringe 10 Ml IV 10 ml PRN PRN Administration LINE FLUSH Tramadol HCl 50 mg 03/09/19 09:15 Ultram PO Q4H PRN Pain Nutrition/Malnutrition Assess - Dietary Evaluation Nutrition/Malnutrition Findings: Nutrition Notes Start: 03/08/19 09:52 Freq: Status: Active Protocol: Document 03/14/19 10:26 DW (Rec: 03/14/19 11:31 DW [id number]) Co-Sign 03/14/19 10:26 KH Nutrition Notes Initial or Follow up Reassessment Current Diagnosis CKD (stage V CKD),COPD, Coronary Artery Disease,Heart Failure Other Pertinent Diagnosis HD,Afib,DVT,PulmonaryEdema, Pleural Effusion,Dialated Nonishemic Cardiopathy Current Diet NPO Labs/Tests BUN: 37 Cr: 6.0 K: 5.1 Na: 134 Pertinent Medications Reviewed Height 5 ft 9 in Weight 47.8 kg [place] Body Weight (kg) 72.72 BMI 15.5 Weight change and time frame Lower Arm Amputation Corrected Wt 48.9kg Corrected BMI 16.0 Subjective/Other Information FU for PO/ONS/Renal Labs Pt stated he does not like the renal diet and would like to have regular diet. Pt stated he likes ONS but was getting it too much, he prefers to have it once daily. Noted 0% of brekafast eaten at bedside Percent of energy/protein needs met: 100%/100% Burn Absent Trauma Absent GI Symptoms None Minimum of two criteria Yes Energy Intake (non-severe) <75% Estimated Energy Requirement >7 days Interpretation of Weight Loss (severe) >10% in 6 months Body Fat Depletion Moderate depletion (severe) Muscle Mass Moderate Depletion (severe) #1 Nutrition Diagnosis Malnutrition Diagnosis Progress(for reassessment Continues documentation) Is patient on ventilator? No Is Patient Ambulatory and/or Out of Bed No REE-([facility]-confined to bed) 1474.296 Kcal/Kg value to use for calculation 41 Approximate Energy Requirements Using 1960 kcal/Kg Calculation Used for Recommendations Kcal/kg Additional Notes PRO needs: 60-75g (1.2-1.5g/kg ) Fluid needs:1-1.5 L/day ( Anuric ESRD-HD) Nutrition Intervention Change Diet Order: When Medically Able Advance Diet to Regular Add Supplement/Snack (indicate name/kcal Ensure Clear once daily /protein ) Provides kCal: 240 Provides Protein (gm) 8 Goal #1 Continue to meet atleast 80% PRO/kcal needs via PO and ONS intakes Goal #2 Wt gain/maintenance Anticipated Discharge Needs: Renal Diet with ONS PRN Follow-Up By: 03/18/19 Additional Comments Follow for PO and ONS intakes, Renal Labs
--- NOTE | 2019-03-16 15:51 | Progress Note ---
Assessment and Plan 72 y/o with recurrent left sided pleural effusion. No new recs from a pulmonary standpoint. Will see as needed over the weekend. No objection to discharge as well. Subjective Date of service: 03/16/19 Principal diagnosis: low plt Interval history: No acute events. Asleep on oxygen lying in bed. In no distress. No family at bedside. Objective Vital Signs - 12hr 03/16/19 03/16/19 03/16/19 04:22 08:21 09:25 Temperature 98.2 F 98.6 F Pulse Rate 71 77 Respiratory 20 14 Rate Blood Pressure 125/79 107/71 O2 Sat by Pulse 100 96 100 Oximetry 03/16/19 03/16/19 12:35 15:47 Temperature 98.2 F Pulse Rate 72 Respiratory 16 22 Rate Blood Pressure 129/84 O2 Sat by Pulse 100 Oximetry Constitutional: no acute distress, alert Eyes: non-icteric ENT: oropharynx moist Neck: supple Effort: normal Ascultation: Left: diminished breath sounds Percussion: Left: dull Tactile fremitus: Right: normal Cardiovascular: regular rate and rhythm Gastrointestinal: normoactive bowel sounds, soft Extremities: no cyanosis Neurologic: normal mental status Psychiatric: mood appropriate CBC and BMP: 03/16/19 07:58 03/16/19 07:58 ABG, PT/INR, D-dimer: PT/INR, D-dimer PT 16.5 Sec. (12.2-14.9) H 03/09/19 10:10 INR 1.37 (0.87-1.13) H 03/09/19 10:10 Abnormal lab findings: Abnormal Labs 03/07/19 03/07/19 03/07/19 21:30 21:30 21:30 WBC 3.0 L RBC 3.54 L Hgb 11.5 L Hct 35.1 L MCV 99 H MCH 33 H MCHC RDW 15.6 H Plt Count 67 L [place] % (Auto) 9.7 H Lymph # 0.7 L Monocytes % (Manual) Seg Neutrophils # Seg Neutrophils # Man Lymphocytes # (Manual) PT INR APTT Sodium 136 L Potassium Chloride Carbon Dioxide BUN Creatinine 3.6 H Glucose POC Glucose Calcium Alkaline Phosphatase 135 H Troponin T 0.270 H* Albumin 3.3 L LDL Cholesterol Direct 28 L Hepatitis C Antibody 03/07/19 03/08/19 03/08/19 22:59 03:28 21:46 WBC RBC Hgb Hct MCV MCH MCHC RDW Plt Count [place] % (Auto) Lymph # Monocytes % (Manual) Seg Neutrophils # Seg Neutrophils # Man Lymphocytes # (Manual) PT INR APTT Sodium Potassium Chloride Carbon Dioxide BUN Creatinine Glucose POC Glucose 118 H Calcium Alkaline Phosphatase Troponin T 0.294 H* 0.266 H* Albumin LDL Cholesterol Direct Hepatitis C Antibody 03/09/19 03/09/19 03/10/19 10:10 10:10 04:52 WBC 2.5 L RBC 3.31 L Hgb 10.7 L Hct 32.7 L D MCV 99 H MCH MCHC RDW 15.8 H Plt Count 79 L 74 L [place] % (Auto) Lymph # Monocytes % (Manual) 14.0 H Seg Neutrophils # Seg Neutrophils # Man 1.5 L Lymphocytes # (Manual) 0.6 L PT 16.5 H INR 1.37 H APTT 37.7 H Sodium Potassium Chloride Carbon Dioxide BUN Creatinine Glucose POC Glucose Calcium Alkaline Phosphatase Troponin T Albumin LDL Cholesterol Direct Hepatitis C Antibody 03/10/19 03/11/19 03/11/19 04:52 06:10 20:40 WBC RBC Hgb 10.5 L Hct 31.9 L MCV MCH MCHC RDW Plt Count 67 L [place] % (Auto) Lymph # Monocytes % (Manual) Seg Neutrophils # Seg Neutrophils # Man Lymphocytes # (Manual) PT INR APTT Sodium Potassium Chloride Carbon Dioxide BUN Creatinine 4.0 H Glucose POC Glucose 122 H Calcium Alkaline Phosphatase Troponin T Albumin LDL Cholesterol Direct Hepatitis C Antibody 03/12/19 03/12/19 03/12/19 05:26 17:03 20:33 WBC 2.6 L RBC 3.29 L Hgb 10.7 L Hct 32.9 L MCV 100 H MCH 33 H MCHC RDW 15.8 H Plt Count 74 L [place] % (Auto) 8.3 H Lymph # 0.6 L Monocytes % (Manual) Seg Neutrophils # 1.7 L Seg Neutrophils # Man Lymphocytes # (Manual) PT INR APTT Sodium Potassium Chloride Carbon Dioxide BUN Creatinine Glucose POC Glucose 129 H 122 H Calcium Alkaline Phosphatase Troponin T Albumin LDL Cholesterol Direct Hepatitis C Antibody 03/13/19 03/13/19 03/13/19 05:40 11:46 19:29 WBC RBC Hgb 10.3 L Hct 33.4 L MCV MCH MCHC RDW Plt Count 47 L [place] % (Auto) Lymph # Monocytes % (Manual) Seg Neutrophils # Seg Neutrophils # Man Lymphocytes # (Manual) PT INR APTT Sodium Potassium Chloride Carbon Dioxide BUN Creatinine Glucose POC Glucose 114 H Calcium Alkaline Phosphatase Troponin T Albumin LDL Cholesterol Direct Hepatitis C Antibody Reactive A 03/14/19 03/14/19 03/14/19 05:44 05:44 22:56 WBC 2.6 L RBC 3.30 L Hgb 10.4 L Hct 32.1 L MCV 98 H MCH MCHC RDW 15.6 H Plt Count 51 L [place] % (Auto) Lymph # Monocytes % (Manual) Seg Neutrophils # Seg Neutrophils # Man Lymphocytes # (Manual) PT INR APTT Sodium 134 L Potassium 5.1 H D Chloride 97.0 L Carbon Dioxide BUN 37 H Creatinine 6.0 H Glucose 103 H POC Glucose 134 H Calcium 8.2 L Alkaline Phosphatase Troponin T Albumin LDL Cholesterol Direct Hepatitis C Antibody 03/15/19 03/15/19 03/15/19 05:35 05:35 11:49 WBC 3.1 L RBC 3.47 L Hgb 10.9 L Hct 34.1 L MCV 98 H MCH MCHC RDW 15.6 H Plt Count 56 L [place] % (Auto) Lymph # Monocytes % (Manual) Seg Neutrophils # Seg Neutrophils # Man Lymphocytes # (Manual) 0.8 L PT INR APTT Sodium Potassium Chloride Carbon Dioxide BUN 25 H Creatinine 4.5 H Glucose POC Glucose 113 H Calcium Alkaline Phosphatase Troponin T Albumin LDL Cholesterol Direct Hepatitis C Antibody 03/16/19 03/16/19 03/16/19 07:58 07:58 08:26 WBC 3.1 L RBC 3.31 L Hgb 10.4 L Hct 33.0 L MCV 100 H MCH MCHC 31 L RDW 16.0 H Plt Count 75 L [place] % (Auto) Lymph # Monocytes % (Manual) Seg Neutrophils # Seg Neutrophils # Man Lymphocytes # (Manual) PT INR APTT Sodium 135 L Potassium 5.5 H Chloride 97.6 L Carbon Dioxide 20 L BUN 40 H Creatinine 5.9 H Glucose 132 H POC Glucose 181 H Calcium 8.2 L Alkaline Phosphatase Troponin T Albumin LDL Cholesterol Direct Hepatitis C Antibody
[2019-03-16] MEDS ORDERED: SODIUM CHLORIDE*PRIMING MACHINE ONLY FOR DIALYSIS MC ONE (21:27)
[2019-03-17] MEDS: oxyCODONE 5 MG TAB PO PRN ×2 (00:20→09:01)
[2019-03-17] MEDS: carvediloL 25 MG TAB PO SCH ×2 (00:21→10:21)
[2019-03-17] MEDS: FAMOTIDINE 10 MG TAB PO SCH ×2 (00:21→10:21)
[2019-03-17] MEDS: hydrALAZINE 25 MG TAB PO SCH ×2 (00:22→10:23)
[2019-03-17] MEDS: diphenhydrAMINE 50 MG/ML VIAL IV PRN ×2 (00:23→09:01)
[2019-03-17] MEDS: INSULIN LISPRO 100 UNIT/ML SUB-Q SCH ×3 (01:28→12:03)
--- NOTE | 2019-03-17 07:28 | Progress Note ---
Assessment and Plan Assessment and plan: Patient is a 71 yo chronic disable man with a plethora of severe co-morbidities including recurrent left sided pleural effusion s/p thoracentesis almost every 2 weeks, ESRD on HD, Afib on Eliquis, Systolic heart failure with NICMP (most recent left ventricular function assessment showing an ejection fraction of 25- 30%.), DVT, PTSD, AOCD, Right upper extermity chronic ulcer, C. Diffe and hypertension who presented with chest pains and SOB. Patient has many ED visits with multiple admissions since 01/21/19. In December 2018, he had 5 ED visits. In January 2019 he had 6 ED visits. So far in February 2019, he has 3 ED visits. Multiple ED visits for falling out the bed, and one visit for falling out the wh eelchair, one ED visit for Chest pains. Currently admitted for Recurrent pleural effusion. Recurrent Moderate symptomatic Left pleural effusion: Order Thoracentesis Chronic thrombocytopenia since 2014 in our EMR s/p 2 units of pharesis plt: monitor cbc closely, consulted Heme/Onc Anemia of chronic renal disease: monitor cbc closely, EPO with HD ESRD on Hemodialysis: Nephrology following Afib on Eliquis: held Eliquis for thoracentesis and low plt/hbg Chest pains with chronic elevated troponin: Cardiology is following Hypertension urgency: low salt diet, iv hydralazine prn History of Clostriodioides difficile colitis infection s/p oral Vancomycin 125 mg po QID x 10 days Hepatitis C Pleurx cath not done due to thrombocytopenia, so Heme/Onc consulted, d/w Dr. Box who will order Bone Marrow Bx as patient is pancytopenic and Ok for thoracentesis. Disposition: hemodialysis then home but patient did not leave yesterday, because HD did not end until around midnight. History Interval history: Patient was seen and examined. Follow-up on current diagnosis of left pleural effusion. No overnight events reported to me. Patient denies any chest pain, shortness breath, nausea/vomiting or severe headaches. Imaging, nursing note, chart, labs and old chart reviewed. Discussed with patient. Hospitalist Physical - Physical exam Narrative exam: Gen: thin frial, chronic ill appearing, NAD, Awake, Alert, Orientated HEENT: NCAT, EOMI, PERRL, OP Clear Neck: supple, no adenopathy, no thyromegaly, no JVD CVS/Heart: RRR, normal S1S2, pulses present bilaterally Chest/Lungs: diminished left bs, Symmetrical chest expansion, good air entry right GI/Abdomen: soft, NTND, good bowel sounds, no guarding or rebound /Bladder: no suprapubic tenderness, no CVA or paraspinal tenderness Extermity/Skin: no c/c/e, no obvious rash MSK: FROM x 3, left forearm amputated Neuro: CN 2-12 grossly intact, no new focal deficits Psych: calm - Constitutional Vitals: Temp Pulse Resp BP Pulse Ox 98.7 F 82 16 119/85 100 03/17/19 04:47 03/17/19 04:47 03/17/19 04:47 03/17/19 04:47 03/17/19 04:47 General appearance: Present: no acute distress, well-nourished Results - Labs CBC & Chem 7: 03/16/19 07:58 03/16/19 07:58 Labs: Laboratory Last Values WBC 3.1 K/mm3 (4.5-11.0) L 03/16/19 07:58 RBC 3.31 M/mm3 (3.65-5.03) L 03/16/19 07:58 Hgb 10.4 gm/dl (11.8-15.2) L 03/16/19 07:58 Hct 33.0 % (35.5-45.6) L 03/16/19 07:58 MCV 100 fl (84-94) H 03/16/19 07:58 MCH 31 pg (28-32) 03/16/19 07:58 MCHC 31 % (32-34) L 03/16/19 07:58 RDW 16.0 % (13.2-15.2) H 03/16/19 07:58 Plt Count 75 K/mm3 (140-440) L 03/16/19 07:58 Lymph % (Auto) 22.7 % (13.4-35.0) 03/12/19 05:26 [place] % (Auto) 8.3 % (0.0-7.3) H 03/12/19 05:26 Eos % (Auto) 2.4 % (0.0-4.3) 03/12/19 05:26 Baso % (Auto) 0.9 % (0.0-1.8) 03/12/19 05:26 Lymph # 0.6 K/mm3 (1.2-5.4) L 03/12/19 05:26 [place] # 0.2 K/mm3 (0.0-0.8) 03/12/19 05:26 Eos # 0.1 K/mm3 (0.0-0.4) 03/12/19 05:26 Baso # 0.0 K/mm3 (0.0-0.1) 03/12/19 05:26 Add Manual Diff Complete 03/10/19 04:52 Total Counted 100 03/15/19 05:35 Seg Neutrophils % 65.7 % (40.0-70.0) 03/12/19 05:26 Seg Neuts % (Manual) 63.0 % (40.0-70.0) 03/15/19 05:35 0 % 03/15/19 05:35 26.0 % (13.4-35.0) 03/15/19 05:35 Reactive Lymphs % (Man) 4.0 % 03/15/19 05:35 5.0 % (0.0-7.3) 03/15/19 05:35 2.0 % (0.0-4.3) 03/15/19 05:35 0 % (0.0-1.8) 03/15/19 05:35 0 % 03/15/19 05:35 0 % 03/15/19 05:35 0 % 03/15/19 05:35 0 % 03/15/19 05:35 Nucleated RBC % Not Reportable 03/15/19 05:35 Seg Neutrophils # 1.7 K/mm3 (1.8-7.7) L 03/12/19 05:26 Seg Neutrophils # Man 2.0 K/mm3 (1.8-7.7) 03/15/19 05:35 Band Neutrophils # 0.0 K/mm3 03/15/19 05:35 0.8 K/mm3 (1.2-5.4) L 03/15/19 05:35 Abs React Lymphs (Man) 0.1 K/mm3 03/15/19 05:35 0.2 K/mm3 (0.0-0.8) 03/15/19 05:35 0.1 K/mm3 (0.0-0.4) 03/15/19 05:35 0.0 K/mm3 (0.0-0.1) 03/15/19 05:35 0.0 K/mm3 03/15/19 05:35 0.0 K/mm3 03/15/19 05:35 0.0 K/mm3 03/15/19 05:35 Blast Cells # 0.0 K/mm3 03/15/19 05:35 Pathologist Review 03/15/19 05:35 WBC Morphology Not Reportable 03/15/19 05:35 Hypersegmented Neuts Not Reportable 03/15/19 05:35 Hyposegmented Neuts Not Reportable 03/15/19 05:35 Hypogranular Neuts Not Reportable 03/15/19 05:35 Not Reportable 03/15/19 05:35 Not Reportable 03/15/19 05:35 Not Reportable 03/15/19 05:35 Not Reportable 03/15/19 05:35 Not Reportable 03/15/19 05:35 Not Reportable 03/15/19 05:35 Consistent w auto 03/15/19 05:35 Not Reportable 03/15/19 05:35 Plt Clumps, EDTA Not Reportable 03/15/19 05:35 Rare 03/15/19 05:35 Not Reportable 03/15/19 05:35 Not Reportable 03/15/19 05:35 Plt Morphology Comment Not Reportable 03/15/19 05:35 RBC Morphology Not Reportable 03/15/19 05:35 Dimorphic RBCs Not Reportable 03/15/19 05:35 Not Reportable 03/15/19 05:35 Not Reportable 03/15/19 05:35 Few 03/15/19 05:35 Few 03/15/19 05:35 Not Reportable 03/15/19 05:35 Not Reportable 03/15/19 05:35 Not Reportable 03/15/19 05:35 Not Reportable 03/15/19 05:35 Not Reportable 03/15/19 05:35 Not Reportable 03/15/19 05:35 Not Reportable 03/15/19 05:35 Not Reportable 03/15/19 05:35 Not Reportable 03/15/19 05:35 Not Reportable 03/15/19 05:35 Not Reportable 03/15/19 05:35 Not Reportable 03/15/19 05:35 Not Reportable 03/15/19 05:35 Not Reportable 03/15/19 05:35 Not Reportable 03/15/19 05:35 Acanthocytes (Spur) Not Reportable 03/15/19 05:35 Rouleaux Not Reportable 03/15/19 05:35 Not Reportable 03/15/19 05:35 Not Reportable 03/15/19 05:35 Not Reportable 03/15/19 05:35 Not Reportable 03/15/19 05:35 Hem Pathologist Commnt Sent to pathology 03/15/19 05:35 PT 16.5 Sec. (12.2-14.9) H 03/09/19 10:10 INR 1.37 (0.87-1.13) H 03/09/19 10:10 APTT 37.7 Sec. (24.2-36.6) H 03/09/19 10:10 Sodium 135 mmol/L (137-145) L 03/16/19 07:58 Potassium 5.5 mmol/L (3.6-5.0) H 03/16/19 07:58 Chloride 97.6 mmol/L (98-107) L 03/16/19 07:58 Carbon Dioxide 20 mmol/L (22-30) L 03/16/19 07:58 23 mmol/L 03/16/19 07:58 BUN 40 mg/dL (9-20) H 03/16/19 07:58 5.9 mg/dL (0.8-1.5) H 03/16/19 07:58 Estimated GFR 11 ml/min 03/16/19 07:58 7 % 03/16/19 07:58 Glucose 132 mg/dL (75-100) H 03/16/19 07:58 POC Glucose 93 (70-105) 03/17/19 00:39 Calcium 8.2 mg/dL (8.4-10.2) L 03/16/19 07:58 0.70 mg/dL (0.1-1.2) 03/07/19 21:30 0.2 mg/dL (0-0.2) 03/07/19 21:30 0.5 mg/dL 03/07/19 21:30 AST 28 units/L (5-40) 03/07/19 21:30 ALT 25 units/L (7-56) 03/07/19 21:30 135 units/L (35-129) H 03/07/19 21:30 0.266 ng/mL (0.00-0.029) H* 03/08/19 03:28 6.7 g/dL (6.3-8.2) 03/07/19 21:30 3.3 g/dL (3.9-5) L 03/07/19 21:30 1.0 % 03/07/19 21:30 Triglycerides 51 mg/dL (2-149) 03/07/19 21:30 Cholesterol 73 mg/dL (50-199) 03/07/19 21:30 28 mg/dL (50-130) L 03/07/19 21:30 43 mg/dL (40-59) 03/07/19 21:30 1.69 % 03/07/19 21:30 Hepatitis A IgM Ab Non-reactive (NonReactive) 03/13/19 19:29 Hep Bs Antigen Non-reactive (Negative) 03/13/19 19:29 Hep B Core IgM Ab Non-reactive (NonReactive) 03/13/19 19:29 Reactive (NonReactive) A 03/13/19 19:29 Blood Type O POSITIVE 03/11/19 11:20 Active Medications - Current Medications Current Medications: Generic Name Dose Route Start Last Admin Trade Name Freq PRN Reason Stop Dose Admin Acetaminophen 650 mg 03/07/19 23:22 03/09/19 23:24 Tylenol PO 650 mg Q4H PRN Administration Pain MILD(1-3)/Fever >100.5/DOUGLAS Acetaminophen/Hydrocodone Bitart 1 each 03/09/19 09:15 03/13/19 17:48 [place] 5/325 PO 1 each Q6H PRN Administration Pain, Moderate (4-6) Amlodipine Besylate 10 mg 03/09/19 10:00 03/16/19 10:50 Norvasc PO Not Given DAILY BEAN Atorvastatin Calcium 40 mg 03/09/19 22:00 03/17/19 00:21 Lipitor PO 40 mg QHS BEAN Administration Carvedilol 25 mg 03/09/19 10:00 03/17/19 00:21 Coreg PO 25 mg BID EBAN Administration Dextrose 50 ml 03/08/19 12:40 D50w (25gm) Syringe IV PRN PRN Hypoglycemia Diphenhydramine HCl 25 mg 03/09/19 11:15 03/17/19 00:23 Benadryl IV 25 mg Q6H PRN Administration Itching Epoetin Prashant 10,000 unit 03/09/19 09:15 03/14/19 12:56 Procrit SUB-Q 10,000 unit KATERYNA PRN Administration hemodialysis Famotidine 10 mg 03/09/19 10:00 03/17/19 00:21 Pepcid PO 10 mg BID BEAN Administration Hydralazine HCl 10 mg 03/08/19 02:02 03/09/19 15:20 Apresoline IV 10 mg Q4H PRN Administration Hypertension Hydralazine HCl 50 mg 03/09/19 10:00 03/17/19 00:22 Apresoline PO 50 mg BID BEAN Administration Sodium Chloride 100 mls @ 999 mls/hr 03/12/19 09:13 Nacl 0.9% IV KATERYNA PRN Hypotension Insulin Human Lispro 0 unit 03/08/19 16:30 03/17/19 01:28 Humalog SUB-Q Not Given ACHS [facility] Protocol Losartan Potassium 100 mg 03/09/19 13:00 03/16/19 10:59 Cozaar PO Not Given QDAY [facility] Morphine Sulfate 4 mg 03/08/19 09:33 03/13/19 05:36 Morphine IV 4 mg Q4H PRN Administration Pain , Severe (7-10) Ondansetron HCl 4 mg 03/07/19 23:22 03/12/19 14:03 Zofran IV 4 mg Q8H PRN Administration Nausea And Vomiting Oxycodone HCl 10 mg 03/09/19 10:24 03/17/19 00:20 Roxicodone PO 10 mg Q6H PRN Administration Pain , Severe (7-10) Sodium Chloride 10 ml 03/08/19 10:00 03/17/19 00:23 Sodium Chloride Flush Syringe 10 Ml IV 10 ml BID BEAN Administration Sodium Chloride 10 ml 03/07/19 23:22 03/16/19 06:19 Sodium Chloride Flush Syringe 10 Ml IV 10 ml PRN PRN Administration LINE FLUSH Tramadol HCl 50 mg 03/09/19 09:15 Ultram PO Q4H PRN Pain Nutrition/Malnutrition Assess - Dietary Evaluation Nutrition/Malnutrition Findings: Nutrition Notes Start: 03/08/19 09:52 Freq: Status: Active Protocol: Document 03/14/19 10:26 DW (Rec: 03/14/19 11:31 DW [id number]) Co-Sign 03/14/19 10:26 KH Nutrition Notes Initial or Follow up Reassessment Current Diagnosis CKD (stage V CKD),COPD, Coronary Artery Disease,Heart Failure Other Pertinent Diagnosis HD,Afib,DVT,PulmonaryEdema, Pleural Effusion,Dialated Nonishemic Cardiopathy Current Diet NPO Labs/Tests BUN: 37 Cr: 6.0 K: 5.1 Na: 134 Pertinent Medications Reviewed Height 5 ft 9 in Weight 47.8 kg [place] Body Weight (kg) 72.72 BMI 15.5 Weight change and time frame Lower Arm Amputation Corrected Wt 48.9kg Corrected BMI 16.0 Subjective/Other Information FU for PO/ONS/Renal Labs Pt stated he does not like the renal diet and would like to have regular diet. Pt stated he likes ONS but was getting it too much, he prefers to have it once daily. Noted 0% of brekafast eaten at bedside Percent of energy/protein needs met: 100%/100% Burn Absent Trauma Absent GI Symptoms None Minimum of two criteria Yes Energy Intake (non-severe) <75% Estimated Energy Requirement >7 days Interpretation of Weight Loss (severe) >10% in 6 months Body Fat Depletion Moderate depletion (severe) Muscle Mass Moderate Depletion (severe) #1 Nutrition Diagnosis Malnutrition Diagnosis Progress(for reassessment Continues documentation) Is patient on ventilator? No Is Patient Ambulatory and/or Out of Bed No REE-([facility]-confined to bed) 1474.296 Kcal/Kg value to use for calculation 41 Approximate Energy Requirements Using 1960 kcal/Kg Calculation Used for Recommendations Kcal/kg Additional Notes PRO needs: 60-75g (1.2-1.5g/kg ) Fluid needs:1-1.5 L/day ( Anuric ESRD-HD) Nutrition Intervention Change Diet Order: When Medically Able Advance Diet to Regular Add Supplement/Snack (indicate name/kcal Ensure Clear once daily /protein ) Provides kCal: 240 Provides Protein (gm) 8 Goal #1 Continue to meet atleast 80% PRO/kcal needs via PO and ONS intakes Goal #2 Wt gain/maintenance Anticipated Discharge Needs: Renal Diet with ONS PRN Follow-Up By: 03/18/19 Additional Comments Follow for PO and ONS intakes, Renal Labs
[2019-03-17] MEDS: amLODIPine 10 MG TAB PO SCH (10:21)
[2019-03-17] MEDS: LOSARTAN 50 MG TAB PO SCH (10:21)
[2019-03-17 12:22] VITALS: BP 109/78
--- NOTE | 2019-03-17 13:01 | Progress Note ---
Assessment and Plan 72 y/o with recurrent left sided pleural effusion. No new recs from a pulmonary standpoint. Will see as needed over the weekend. No objection to discharge as well. Subjective Date of service: 03/17/19 Principal diagnosis: low plt Interval history: No acute events. Being discharged today. Objective Vital Signs - 12hr 03/17/19 03/17/19 03/17/19 04:47 07:29 09:01 Temperature 98.7 F 98.6 F Pulse Rate 82 82 Pulse Rate [ Apical] Respiratory 16 14 20 Rate Blood Pressure 119/85 130/92 O2 Sat by Pulse 100 95 Oximetry 03/17/19 03/17/19 10:00 11:58 Temperature 98.4 F Pulse Rate 81 76 Pulse Rate [ 81 Apical] Respiratory 22 14 Rate Blood Pressure 109/78 O2 Sat by Pulse 98 98 Oximetry Constitutional: no acute distress, alert Eyes: non-icteric ENT: oropharynx moist Neck: supple Effort: normal Ascultation: Left: diminished breath sounds Percussion: Left: dull Tactile fremitus: Right: normal Cardiovascular: regular rate and rhythm Gastrointestinal: normoactive bowel sounds, soft Extremities: no cyanosis Neurologic: normal mental status Psychiatric: mood appropriate CBC and BMP: 03/16/19 07:58 03/16/19 07:58 ABG, PT/INR, D-dimer: PT/INR, D-dimer PT 16.5 Sec. (12.2-14.9) H 03/09/19 10:10 INR 1.37 (0.87-1.13) H 03/09/19 10:10 Abnormal lab findings: Abnormal Labs 03/07/19 03/07/19 03/07/19 21:30 21:30 21:30 WBC 3.0 L RBC 3.54 L Hgb 11.5 L Hct 35.1 L MCV 99 H MCH 33 H MCHC RDW 15.6 H Plt Count 67 L [place] % (Auto) 9.7 H Lymph # 0.7 L Monocytes % (Manual) Seg Neutrophils # Seg Neutrophils # Man Lymphocytes # (Manual) PT INR APTT Sodium 136 L Potassium Chloride Carbon Dioxide BUN Creatinine 3.6 H Glucose POC Glucose Calcium Alkaline Phosphatase 135 H Troponin T 0.270 H* Albumin 3.3 L LDL Cholesterol Direct 28 L Hepatitis C Antibody 03/07/19 03/08/19 03/08/19 22:59 03:28 21:46 WBC RBC Hgb Hct MCV MCH MCHC RDW Plt Count [place] % (Auto) Lymph # Monocytes % (Manual) Seg Neutrophils # Seg Neutrophils # Man Lymphocytes # (Manual) PT INR APTT Sodium Potassium Chloride Carbon Dioxide BUN Creatinine Glucose POC Glucose 118 H Calcium Alkaline Phosphatase Troponin T 0.294 H* 0.266 H* Albumin LDL Cholesterol Direct Hepatitis C Antibody 03/09/19 03/09/19 03/10/19 10:10 10:10 04:52 WBC 2.5 L RBC 3.31 L Hgb 10.7 L Hct 32.7 L D MCV 99 H MCH MCHC RDW 15.8 H Plt Count 79 L 74 L [place] % (Auto) Lymph # Monocytes % (Manual) 14.0 H Seg Neutrophils # Seg Neutrophils # Man 1.5 L Lymphocytes # (Manual) 0.6 L PT 16.5 H INR 1.37 H APTT 37.7 H Sodium Potassium Chloride Carbon Dioxide BUN Creatinine Glucose POC Glucose Calcium Alkaline Phosphatase Troponin T Albumin LDL Cholesterol Direct Hepatitis C Antibody 03/10/19 03/11/19 03/11/19 04:52 06:10 20:40 WBC RBC Hgb 10.5 L Hct 31.9 L MCV MCH MCHC RDW Plt Count 67 L [place] % (Auto) Lymph # Monocytes % (Manual) Seg Neutrophils # Seg Neutrophils # Man Lymphocytes # (Manual) PT INR APTT Sodium Potassium Chloride Carbon Dioxide BUN Creatinine 4.0 H Glucose POC Glucose 122 H Calcium Alkaline Phosphatase Troponin T Albumin LDL Cholesterol Direct Hepatitis C Antibody 03/12/19 03/12/19 03/12/19 05:26 17:03 20:33 WBC 2.6 L RBC 3.29 L Hgb 10.7 L Hct 32.9 L MCV 100 H MCH 33 H MCHC RDW 15.8 H Plt Count 74 L [place] % (Auto) 8.3 H Lymph # 0.6 L Monocytes % (Manual) Seg Neutrophils # 1.7 L Seg Neutrophils # Man Lymphocytes # (Manual) PT INR APTT Sodium Potassium Chloride Carbon Dioxide BUN Creatinine Glucose POC Glucose 129 H 122 H Calcium Alkaline Phosphatase Troponin T Albumin LDL Cholesterol Direct Hepatitis C Antibody 03/13/19 03/13/19 03/13/19 05:40 11:46 19:29 WBC RBC Hgb 10.3 L Hct 33.4 L MCV MCH MCHC RDW Plt Count 47 L [place] % (Auto) Lymph # Monocytes % (Manual) Seg Neutrophils # Seg Neutrophils # Man Lymphocytes # (Manual) PT INR APTT Sodium Potassium Chloride Carbon Dioxide BUN Creatinine Glucose POC Glucose 114 H Calcium Alkaline Phosphatase Troponin T Albumin LDL Cholesterol Direct Hepatitis C Antibody Reactive A 03/14/19 03/14/19 03/14/19 05:44 05:44 22:56 WBC 2.6 L RBC 3.30 L Hgb 10.4 L Hct 32.1 L MCV 98 H MCH MCHC RDW 15.6 H Plt Count 51 L [place] % (Auto) Lymph # Monocytes % (Manual) Seg Neutrophils # Seg Neutrophils # Man Lymphocytes # (Manual) PT INR APTT Sodium 134 L Potassium 5.1 H D Chloride 97.0 L Carbon Dioxide BUN 37 H Creatinine 6.0 H Glucose 103 H POC Glucose 134 H Calcium 8.2 L Alkaline Phosphatase Troponin T Albumin LDL Cholesterol Direct Hepatitis C Antibody 03/15/19 03/15/19 03/15/19 05:35 05:35 11:49 WBC 3.1 L RBC 3.47 L Hgb 10.9 L Hct 34.1 L MCV 98 H MCH MCHC RDW 15.6 H Plt Count 56 L [place] % (Auto) Lymph # Monocytes % (Manual) Seg Neutrophils # Seg Neutrophils # Man Lymphocytes # (Manual) 0.8 L PT INR APTT Sodium Potassium Chloride Carbon Dioxide BUN 25 H Creatinine 4.5 H Glucose POC Glucose 113 H Calcium Alkaline Phosphatase Troponin T Albumin LDL Cholesterol Direct Hepatitis C Antibody 03/16/19 03/16/19 03/16/19 07:58 07:58 08:26 WBC 3.1 L RBC 3.31 L Hgb 10.4 L Hct 33.0 L MCV 100 H MCH MCHC 31 L RDW 16.0 H Plt Count 75 L [place] % (Auto) Lymph # Monocytes % (Manual) Seg Neutrophils # Seg Neutrophils # Man Lymphocytes # (Manual) PT INR APTT Sodium 135 L Potassium 5.5 H Chloride 97.6 L Carbon Dioxide 20 L BUN 40 H Creatinine 5.9 H Glucose 132 H POC Glucose 181 H Calcium 8.2 L Alkaline Phosphatase Troponin T Albumin LDL Cholesterol Direct Hepatitis C Antibody
--- NOTE | 2019-03-17 15:07 | Hem/Onc Progress Note ---
Assessment and Plan 1. Leukopenia, neutrophils is 1.7 in the recent past. The cause of low white cell count will be multifactorial, medication may have a role. It may also be a marrow issue. 2. Anemia. MCV is on the higher side. B12, folate was normal. This may be a marrow issue or medication related or radicular related. 3. Thrombocytopenia. Multiple differentials include medications versus production issues. CT scan did not show any splenomegaly in the past. 4. Renal failure, on dialysis. 5. Pleural effusion, testing was negative on pathology. 6. In April 2018, HIT antibodies was negative. 7. History of congestive heart failure. 8. Atrial fibrillation, was on Eliquis. 9. Hypertension. 10. Hyperlipidemia. 11. History of C. diff, status post vancomycin. We have the option of looking into a bone marrow biopsy for the cytopenia, further thoracentesis. We have option of transfusion support and doing the procedure if that is needed at this time. bmbx done 03/15 OP follow up an option - to go over the report of BMBX - Patient Problems (1) Thrombocytopenia Status: Acute Subjective Date of service: 03/17/19 Principal diagnosis: low plt Interval history: discharge planning Objective - Exam Narrative Exam: Pain - left sided pain - chest and abdomen and shoulder General appearance - emaciated Performance status limited self care Eyes - no icterus, ENT - no bleeding LNs cervical not palpable Neck - no LN Respiratory Normal Breath sounds - CTA CVS S1 S2 + Extremities no calf tenderness General GI Soft Rectal deferred male - deferred Skin warm - HD cath rt chest Musculoskeletal moves extremities - left below elbow amputation Neurologically awake - oriented - Constitutional Vitals: Last Vital Signs Temp 98.4 F 03/17/19 11:58 Pulse 76 03/17/19 11:58 Resp 14 03/17/19 11:58 BP 109/78 03/17/19 11:58 Pulse Ox 98 03/17/19 11:58 - Labs Lab Results: Laboratory Results - last 24 hr 03/16/19 03/17/19 03/17/19 16:45 00:39 07:38 POC Glucose 81 93 95 03/17/19 11:27 POC Glucose 103 Medications & Allergies - Medications Allergies/Adverse Reactions: Allergies aspirin Allergy (Verified 02/20/19 22:06) Unknown stomach cramps pork derived (porcine) Allergy (Verified 02/20/19 22:06) Rash venom-honey bee [bee venom (honey bee)] Allergy (Verified 02/20/19 22:06) Anaphylaxis Pork/Porcine Containing Products Adverse Reaction (Severe, Verified 02/20/19 22:06) Nausea,VOMITING Home Medications: Home Medications Medication Instructions Recorded Confirmed Last Taken Type AtorvaSTATin [Lipitor] 40 mg PO QHS #30 tablet 12/29/18 03/07/19 01/01/19 Rx Famotidine [Pepcid] 10 mg PO BID #15 tablet 12/29/18 03/07/19 01/01/19 Rx amLODIPine [Norvasc] 10 mg PO DAILY #30 tablet 12/29/18 03/07/19 01/01/19 Rx hydrALAZINE [Apresoline TAB] 50 mg PO BID #60 tablet 12/29/18 03/07/19 01/01/19 Rx Carvedilol [Coreg] 25 mg PO BID #60 tablet 01/17/19 03/07/19 Unknown Rx diphenhydrAMINE [Benadryl CAP] 50 mg PO Q3D PRN 01/30/19 03/07/19 Unknown History Epoetin Prashant 10,000 Unit [Procrit] 10,000 unit SUB-Q KATERYNA PRN vial 02/02/19 03/07/19 Unknown Rx Lisinopril [Zestril TAB] 5 mg PO QDAY #30 tablet 02/02/19 03/07/19 Unknown Rx Ondansetron [Zofran ODT TAB] 4 mg PO Q8HR PRN #14 tab.rapdis 02/28/19 03/07/19 Unknown Rx Polyethylene Glycol 3350 [Miralax 17 gm PO QDAY PRN #15 packet 03/17/19 Unknown Rx 3350] oxyCODONE [roxiCODONE] 2 tab PO Q6H PRN #30 tablet 03/17/19 Unknown Rx Active Medications: Generic Name Dose Route Start Last Admin Trade Name Freq PRN Reason Stop Dose Admin Acetaminophen 650 mg 03/07/19 23:22 03/09/19 23:24 Tylenol PO 650 mg Q4H PRN Administration Pain MILD(1-3)/Fever >100.5/DOUGLAS Acetaminophen/Hydrocodone Bitart 1 each 03/09/19 09:15 03/13/19 17:48 [place] 5/325 PO 1 each Q6H PRN Administration Pain, Moderate (4-6) Amlodipine Besylate 10 mg 03/09/19 10:00 03/17/19 10:21 Norvasc PO 10 mg DAILY BEAN Administration Atorvastatin Calcium 40 mg 03/09/19 22:00 03/17/19 00:21 Lipitor PO 40 mg QHS BEAN Administration Carvedilol 25 mg 03/09/19 10:00 03/17/19 10:21 Coreg PO 25 mg BID BEAN Administration Dextrose 50 ml 03/08/19 12:40 D50w (25gm) Syringe IV PRN PRN Hypoglycemia Diphenhydramine HCl 25 mg 03/09/19 11:15 03/17/19 09:01 Benadryl IV 25 mg Q6H PRN Administration Itching Epoetin Prashant 10,000 unit 03/09/19 09:15 03/14/19 12:56 Procrit SUB-Q 10,000 unit KATERYNA PRN Administration hemodialysis Famotidine 10 mg 03/09/19 10:00 03/17/19 10:21 Pepcid PO 10 mg BID BEAN Administration Hydralazine HCl 10 mg 03/08/19 02:02 03/09/19 15:20 Apresoline IV 10 mg Q4H PRN Administration Hypertension Hydralazine HCl 50 mg 03/09/19 10:00 03/17/19 10:23 Apresoline PO 50 mg BID BEAN Administration Sodium Chloride 100 mls @ 999 mls/hr 03/12/19 09:13 Nacl 0.9% IV KATERYNA PRN Hypotension Insulin Human Lispro 0 unit 03/08/19 16:30 03/17/19 12:03 Humalog SUB-Q Not Given ACHS [facility] Protocol Losartan Potassium 100 mg 03/09/19 13:00 03/17/19 10:21 Cozaar PO 100 mg QDAY BEAN Administration Morphine Sulfate 4 mg 03/08/19 09:33 03/13/19 05:36 Morphine IV 4 mg Q4H PRN Administration Pain , Severe (7-10) Ondansetron HCl 4 mg 03/07/19 23:22 03/12/19 14:03 Zofran IV 4 mg Q8H PRN Administration Nausea And Vomiting Oxycodone HCl 10 mg 03/09/19 10:24 03/17/19 09:01 Roxicodone PO 10 mg Q6H PRN Administration Pain , Severe (7-10) Sodium Chloride 10 ml 03/08/19 10:00 03/17/19 00:23 Sodium Chloride Flush Syringe 10 Ml IV 10 ml BID BEAN Administration Sodium Chloride 10 ml 03/07/19 23:22 03/16/19 06:19 Sodium Chloride Flush Syringe 10 Ml IV 10 ml PRN PRN Administration LINE FLUSH Tramadol HCl 50 mg 03/09/19 09:15 Ultram PO Q4H PRN Pain
== END 2019-03-17 16:00 | disposition home or self-care (01) | DRG 291 ==
LOC: ED 20:17 → 4A 23:07
PROVIDERS: ADMIT Internal Medicine; ATTEND Internal Medicine
PROC: 5A1D70Z Performance of Urinary Filtration, Intermittent, Less than 6 Hours Per Day (ICD-10-PCS; 2019-03-09)
PROC: 30233R1 Transfusion of Nonautologous Platelets into Peripheral Vein, Percutaneous Approach (ICD-10-PCS; principal; 2019-03-11)
PROC: 5A1D70Z Performance of Urinary Filtration, Intermittent, Less than 6 Hours Per Day (ICD-10-PCS; 2019-03-12)
PROC: 5A1D70Z Performance of Urinary Filtration, Intermittent, Less than 6 Hours Per Day (ICD-10-PCS; 2019-03-14)
PROC: 0W9B3ZZ Drainage of Left Pleural Cavity, Percutaneous Approach (ICD-10-PCS; 2019-03-14)
PROC: 07DR3ZX Extraction of Iliac Bone Marrow, Percutaneous Approach, Diagnostic (ICD-10-PCS; 2019-03-15)
PROC: 5A1D70Z Performance of Urinary Filtration, Intermittent, Less than 6 Hours Per Day (ICD-10-PCS; 2019-03-16)
DX: I13.2 Hypertensive heart and chronic kidney disease with heart failure and with stage 5 chronic kidney disease, or end stage renal disease (principal); N18.6 End stage renal disease; I50.23 Acute on chronic systolic (congestive) heart failure; E43 Unspecified severe protein-calorie malnutrition; I16.0 Hypertensive urgency; G89.4 Chronic pain syndrome; D69.6 Thrombocytopenia, unspecified; D63.1 Anemia in chronic kidney disease; E11.22 Type 2 diabetes mellitus with diabetic chronic kidney disease; B19.20 Unspecified viral hepatitis C without hepatic coma; E11.51 Type 2 diabetes mellitus with diabetic peripheral angiopathy without gangrene; J91.8 Pleural effusion in other conditions classified elsewhere; I48.2 Chronic atrial fibrillation; F43.10 Post-traumatic stress disorder, unspecified; I25.10 Atherosclerotic heart disease of native coronary artery without angina pectoris; E78.5 Hyperlipidemia, unspecified; I42.0 Dilated cardiomyopathy; Z99.2 Dependence on renal dialysis; Z91.030 Bee allergy status; Z88.8 Allergy status to other drugs, medicaments and biological substances; Z91.018 Allergy to other foods; Z79.01 Long term (current) use of anticoagulants; Z79.899 Other long term (current) drug therapy; Z87.891 Personal history of nicotine dependence; Z99.81 Dependence on supplemental oxygen; Z86.718 Personal history of other venous thrombosis and embolism; Z90.49 Acquired absence of other specified parts of digestive tract; Z89.212 Acquired absence of left upper limb below elbow; Z79.84 Long term (current) use of oral hypoglycemic drugs; Z68.1 Body mass index [BMI] 19.9 or less, adult
CPT/HCPCS: 32555; 36415; 36430; 38221; 71045; 71260; 77012; 80048; 80061; 80074; 80076; 82962; 84484; 85007; 85014; 85018; 85025; 85027; 85049; 85097; 85610; 85730; 86900; 86901; 87116; 88161; 88184; 88185; 88230; 88291; 88305; 88311; 88313; 93005; 93010; 94644; 94760; 96374; 96375; G0378; A9270-GY; J0360; J0885; J1170; J1200; J1650; J1815; J2270; J2405; J2785; J7030; J7040; P9035; Q9967

== ENCOUNTER 2019-03-28 22:59 | Emergency (ER) | payer MEDICAID ==
[2019-03-28] MEDS ORDERED: ASPIRIN 325 MG TAB PO ONE (23:26)
[2019-03-28] MEDS ORDERED: FAMOTIDINE 20 MG/2 ML INJ IV ONE (23:33)
[2019-03-28] MEDS ORDERED: ONDANSETRON 4 MG/2 ML INJ IV ONE (23:33)
--- NOTE | 2019-03-28 23:34 | Emergency Department Report ---
ED General Adult HPI - General Chief complaint: Dyspnea/Respdistress Stated complaint: SOB Time Seen by Provider: 03/28/19 23:04 Source: patient, EMS (ems notes not available at time of chart dictation), RN notes reviewed, old records reviewed Mode of arrival: Stretcher Limitations: No Limitations - History of Present Illness Initial comments: This is a 72-year-old gentleman. His switchgear repairer is Dr. Berkowitz S medical history is complicated, includes recurrent left-sided pleural effusion, left arm amputee, end-stage renal disease, on dialysis, typically receives thoracentesis every 2 weeks, A. fib, on systemic anticoagulation eliquis systolic heart failure with nonischemic cardiomyopathy, DVT, PTSD, right upper extremity chronic ulcer, history of C. difficile, history of hypertension Has had multiple visits to this hospital for chest pain and shortness of breath. In December 2018, had 5 ED visits. In January 2019 and had 6 ED visits In February 2019 and had 3 ED visits Multiple visits for falling out of bed, and for chest pains Recently was admitted for thoracic centesis, found to have thrombocytopenia, pancytopenia, seen by hematology oncology, Dr. Box, and had a bone marrow biopsy performed. Also had a cardiac nuclear stress test performed in January 2019, negative for ischemic findings. Recently seen by cardiology in February 2019, recommended medical therapy for presumed non ischemic cardiomyopathy, and did not specifically recommend repeat cardiac risk stratification. Today, the patient presents with his typical con stellation of symptoms, including nontraumatic left-sided chest pain, reported nausea or vomiting, reported depression, reported shortness of breath. He also describes 2 dark bowel movements. He describes his pain is sharp and throbbing. He is not sure if it radiates anywhere. He denies urinary symptoms. He received dialysis on Monday. He did not receive it today () -: Gradual, hour(s) Location: chest, abdomen Radiation: extremity (chest pain moves to left shoulder) Severity scale (0 -10): 4 Quality: aching Consistency: intermittent Improves with: none Worsens with: none - Related Data Home Medications Medication Instructions Recorded Confirmed Last Taken diphenhydrAMINE [Benadryl CAP] 50 mg PO Q3D PRN 01/30/19 03/07/19 Unknown Previous Rx's Medication Instructions Recorded Last Taken Type AtorvaSTATin [Lipitor] 40 mg PO QHS #30 tablet 12/29/18 01/01/19 Rx Famotidine [Pepcid] 10 mg PO BID #15 tablet 12/29/18 01/01/19 Rx amLODIPine [Norvasc] 10 mg PO DAILY #30 tablet 12/29/18 01/01/19 Rx hydrALAZINE [Apresoline TAB] 50 mg PO BID #60 tablet 12/29/18 01/01/19 Rx Carvedilol [Coreg] 25 mg PO BID #60 tablet 01/17/19 Unknown Rx Epoetin Prashant 10,000 Unit [Procrit] 10,000 unit SUB-Q KATERYNA PRN vial 02/02/19 Unknown Rx Lisinopril [Zestril TAB] 5 mg PO QDAY #30 tablet 02/02/19 Unknown Rx Ondansetron [Zofran ODT TAB] 4 mg PO Q8HR PRN #14 tab.rapdis 02/28/19 Unknown Rx Polyethylene Glycol 3350 [Miralax 17 gm PO QDAY PRN #15 packet 03/17/19 Unknown Rx 3350] oxyCODONE [roxiCODONE] 2 tab PO Q6H PRN #30 tablet 03/17/19 Unknown Rx Allergies Allergy/AdvReac Type Severity Reaction Status Date / Time aspirin Allergy Unknown Verified 02/20/19 22:06 pork derived (porcine) Allergy Rash Verified 02/20/19 22:06 venom-honey bee Allergy Anaphylaxis Verified 02/20/19 22:06 [bee venom (honey bee)] Pork/Porcine Containing AdvReac Severe Nausea,VOMI Verified 02/20/19 22:06 Products TING ED Review of Systems ROS: Stated complaint: SOB Other details as noted in HPI Constitutional: malaise, weakness Eyes: denies: eye discharge ENT: congestion Respiratory: shortness of breath Cardiovascular: chest pain Gastrointestinal: abdominal pain, nausea, vomiting, diarrhea Genitourinary: denies: dysuria Musculoskeletal: myalgia Skin: denies: lesions Neurological: weakness Psychiatric: anxiety Hematological/Lymphatic: denies: easy bleeding ED Past Medical Hx - Past Medical History Previous Medical History?: Yes Hx Hypertension: Yes Hx Heart Attack/AMI: No Hx Congestive Heart Failure: Yes Hx Diabetes: Yes Hx Deep Vein Thrombosis: Yes Hx Pulmonary Embolism: No Hx Liver Disease: Yes Hx Renal Disease: No Hx Arthritis: Yes (generalized) Hx Seizures: No Hx Kidney Stones: No Hx Psychiatric Treatment: Yes (PTSD) Hx Asthma: No Hx COPD: Yes Hx Tuberculosis: No Hx HIV: No Additional medical history: 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 abd surgery after war related ingury partial "stomach removal'. Left upper extremity amputation below elbow - Social History Smoking Status: Never Smoker Substance Use Type: None - Medications Home Medications: Home Medications Medication Instructions Recorded Confirmed Last Taken Type AtorvaSTATin [Lipitor] 40 mg PO QHS #30 tablet 12/29/18 03/07/19 01/01/19 Rx Famotidine [Pepcid] 10 mg PO BID #15 tablet 12/29/18 03/07/19 01/01/19 Rx amLODIPine [Norvasc] 10 mg PO DAILY #30 tablet 12/29/18 03/07/19 01/01/19 Rx hydrALAZINE [Apresoline TAB] 50 mg PO BID #60 tablet 12/29/18 03/07/19 01/01/19 Rx Carvedilol [Coreg] 25 mg PO BID #60 tablet 01/17/19 03/07/19 Unknown Rx diphenhydrAMINE [Benadryl CAP] 50 mg PO Q3D PRN 01/30/19 03/07/19 Unknown History Epoetin Prashant 10,000 Unit [Procrit] 10,000 unit SUB-Q KATERYNA PRN vial 02/02/19 03/07/19 Unknown Rx Lisinopril [Zestril TAB] 5 mg PO QDAY #30 tablet 02/02/19 03/07/19 Unknown Rx Ondansetron [Zofran ODT TAB] 4 mg PO Q8HR PRN #14 tab.rapdis 02/28/19 03/07/19 Unknown Rx Polyethylene Glycol 3350 [Miralax 17 gm PO QDAY PRN #15 packet 03/17/19 Unknown Rx 3350] oxyCODONE [roxiCODONE] 2 tab PO Q6H PRN #30 tablet 03/17/19 Unknown Rx ED Physical Exam - General Limitations: No Limitations General appearance: alert, in no apparent distress - Head Head exam: Present: atraumatic, normocephalic - Eye Eye exam: Present: normal appearance, EOMI. Absent: nystagmus - ENT ENT exam: Present: normal exam, normal orophraynx, mucous membranes moist, normal external ear exam - Neck Neck exam: Present: normal inspection, full ROM. Absent: tenderness, meningismus - Respiratory Respiratory exam: Present: normal lung sounds bilaterally (lung sounds clear in the right hemithorax, left upper thorax. Slightly diminished left lower thorax), decreased breath sounds, other (there is a right-sided thoracic permacath noted, with no redness, pus or streaking). Absent: respiratory distress, wheezes, rales, rhonchi, stridor - Cardiovascular Cardiovascular Exam: Present: regular rate, irregular rhythm, normal heart sounds. Absent: bradycardia, tachycardia, systolic murmur, diastolic murmur, rubs, gallop - GI/Abdominal GI/Abdominal exam: Present: soft. Absent: distended, tenderness, guarding, rebound, rigid, pulsatile mass - Rectal Rectal exam: Present: normal inspection, normal rectal tone, heme (-) stool, other (chaperoned by nurseT Toney). Absent: heme (+) stool, black stool, bloody stool - Extremities Exam Extremities exam: Present: normal inspection (there is a left upper extremity distal chronic amputation), other (2+ pulses noted in the bilateral radial distribution and femoral distribution. Right upper extremity graft noted, with no redness, pus or streaking.). Absent: tenderness, calf tenderness - Back Exam Back exam: Present: normal inspection, full ROM. Absent: tenderness, CVA tenderness (R), CVA tenderness (L), paraspinal tenderness, vertebral tenderness - Neurological Exam Neurological exam: Present: alert, other (there is no facial droop. The tongue is midline. Extraocular movements are intact bilaterally. There is 5/5 strength bilateral upper, lower extremities, and sensation is intact to light touch bilateral upper, lower extremities) - Psychiatric Psychiatric exam: Present: anxious - Skin Skin exam: Present: warm, dry, intact, normal color. Absent: rash ED Course Vital Signs 03/28/19 03/28/19 03/28/19 23:12 23:15 23:19 Temperature Pulse Rate 82 73 Respiratory 21 25 H Rate Blood Pressure 158/113 158/113 O2 Sat by Pulse 100 99 100 Oximetry 03/28/19 03/28/19 03/28/19 23:20 23:31 23:45 Temperature 97.9 F Pulse Rate 78 83 Respiratory 18 21 17 Rate Blood Pressure 168/115 168/115 O2 Sat by Pulse 99 100 100 Oximetry 03/29/19 03/29/19 03/29/19 00:01 00:15 00:31 Temperature Pulse Rate Respiratory 14 23 17 Rate Blood Pressure O2 Sat by Pulse 100 100 98 Oximetry 03/29/19 03/29/19 03/29/19 00:45 01:01 01:15 Temperature Pulse Rate 80 74 Respiratory 19 15 17 Rate Blood Pressure O2 Sat by Pulse 100 98 100 Oximetry 03/29/19 03/29/19 03/29/19 01:31 01:45 02:00 Temperature Pulse Rate 78 76 83 Respiratory 17 25 H 21 Rate Blood Pressure 170/131 170/131 178/126 O2 Sat by Pulse 100 100 100 Oximetry - Reevaluation(s) Reevaluation #1: 03/29/19 01:13 Differential diagnosis, including not limited to: Chronic chest pain, chronic shortness of breath, chronic left-sided pleural effusion, retroperitoneal hematoma, history of nausea, vomiting, diarrhea acute coronary syndrome pneumonia Assessment and plan: 72-year-old gentleman with multiple medical comorbidities, presents to this department multiple times over the past few months for chest pain, shortness of breath and other complaints. Recently had a negative nuclear stress test. Has a chronically elevated troponin, which appears to be at baseline, this is likely a type II troponin leak, and was recently evaluated by cardiology at this hospital, who recommended medical management. His chest pain today appears to be similar to prior episodes of chest pain. He is currently not tachycardic, not hypoxic, is breathing very comfortably on room air, and take systemic anticoagulation. He endorses compliance with his systemic anticoagulation. Therefore, this is very unlikely to be a pulmonary embolism. His left-sided pleural effusion is reviewed and appreciated. This does not appear to be significant asymptomatic at this time. Currently, the patient is resting comfortably in his stretcher, in no acute respiratory distress, saturating at 100% on room air. At this point in time, he does not meet criteria for hospitalization for emergent or urgent thoracic centesis. In addition, laboratory studies do not demonstrate need for emergent dialysis at this time. He has no active vomiting at this time. Rectal exam showed no rectal bleeding or guaiac-positive stool. Noncontrast CT scan of the abdomen and pelvis showed no retroperitoneal bleed. This appears to be a chronic condition with the patient, at this point in time, he does not meet criteria for hospitalization. Troponin #2 is pending. He'll need to follow up closely with his outpatient primary care doctor, timber poisoner, hematology environmental permitting specialist. 03/29/19 01:16 He has not had any diarrhea while here in the emergency room, he does not have a fever, he does not have a leukocytosis, and a noncontrast CT scan did not suggest colitis. Therefore, at this point time, we do not suspect C. difficile. Reevaluation #2: 03/29/19 02:07 Patient reassessed multiple times. No active vomiting. No episodes of hypoxia. Appears to be quite comfortable from a respiratory standpoint. EKG unchanged 2. Troponin is at baseline. Patient suitable for discharge with outpatient follow-up. He will be instructed to closely follow-up for repeat evaluation. ED Medical Decision Making - Lab Data Result diagrams: 03/28/19 23:48 03/28/19 23:48 Vital Signs 03/28/19 03/28/19 03/28/19 23:12 23:15 23:20 Temperature 97.9 F Pulse Rate 82 Respiratory 21 18 Rate Blood Pressure 158/113 O2 Sat by Pulse 100 99 99 Oximetry Lab Results 03/28/19 03/28/19 03/28/19 Range/Units 23:48 23:48 23:48 WBC 3.7 L (4.5-11.0) K/mm3 RBC 4.10 (3.65-5.03) M/mm3 Hgb 12.8 (11.8-15.2) gm/dl Hct 40.0 (35.5-45.6) % MCV 98 H (84-94) fl MCH 31 (28-32) pg MCHC 32 (32-34) % RDW 15.2 (13.2-15.2) % Plt Count 103 L (140-440) K/mm3 Lymph % (Auto) 24.7 (13.4-35.0) % Vigo % (Auto) 10.0 H (0.0-7.3) % Eos % (Auto) 2.4 (0.0-4.3) % Baso % (Auto) 1.4 (0.0-1.8) % Lymph # 0.9 L (1.2-5.4) K/mm3 Vigo # 0.4 (0.0-0.8) K/mm3 Eos # 0.1 (0.0-0.4) K/mm3 Baso # 0.1 (0.0-0.1) K/mm3 Seg Neutrophils % 61.5 (40.0-70.0) % Seg Neutrophils # 2.3 (1.8-7.7) K/mm3 PT 17.0 H (12.2-14.9) Sec. INR 1.42 H (0.87-1.13) APTT 33.3 (24.2-36.6) Sec. Sodium 133 L (137-145) mmol/L Potassium 4.9 (3.6-5.0) mmol/L Chloride 98.8 (98-107) mmol/L Carbon Dioxide 20 L (22-30) mmol/L Anion Gap 19 mmol/L BUN 76 H (9-20) mg/dL Creatinine 7.6 H (0.8-1.5) mg/dL Estimated GFR 9 ml/min BUN/Creatinine Ratio 10 % Glucose 97 (75-100) mg/dL Calcium 8.4 (8.4-10.2) mg/dL Magnesium (1.7-2.3) mg/dL Total Creatine Kinase (55-170) units/L Troponin T 0.309 H* (0.00-0.029) ng/mL 03/28/19 Range/Units 23:48 WBC (4.5-11.0) K/mm3 RBC (3.65-5.03) M/mm3 Hgb (11.8-15.2) gm/dl Hct (35.5-45.6) % MCV (84-94) fl MCH (28-32) pg MCHC (32-34) % RDW (13.2-15.2) % Plt Count (140-440) K/mm3 Lymph % (Auto) (13.4-35.0) % Vigo % (Auto) (0.0-7.3) % Eos % (Auto) (0.0-4.3) % Baso % (Auto) (0.0-1.8) % Lymph # (1.2-5.4) K/mm3 Vigo # (0.0-0.8) K/mm3 Eos # (0.0-0.4) K/mm3 Baso # (0.0-0.1) K/mm3 Seg Neutrophils % (40.0-70.0) % Seg Neutrophils # (1.8-7.7) K/mm3 PT (12.2-14.9) Sec. INR (0.87-1.13) APTT (24.2-36.6) Sec. Sodium (137-145) mmol/L Potassium (3.6-5.0) mmol/L Chloride (98-107) mmol/L Carbon Dioxide (22-30) mmol/L Anion Gap mmol/L BUN (9-20) mg/dL Creatinine (0.8-1.5) mg/dL Estimated GFR ml/min BUN/Creatinine Ratio % Glucose (75-100) mg/dL Calcium (8.4-10.2) mg/dL Magnesium 2.20 (1.7-2.3) mg/dL Total Creatine Kinase 73 (55-170) units/L Troponin T (0.00-0.029) ng/mL - EKG Data -: EKG Interpreted by Al - EKG Data When compared to previous EKG there are: no significant change 03/29/19 01:12 EKG #1 shows atrial fibrillation, 79 bpm, left axis deviation, left anterior fascicular block, premature ventricular contractions, T-wave inversions, the EKG is abnormal, it is not consistent with ST elevation myocardial infarction. EKG #2 is unchanged from initial EKG. Both EKGs appeared to be unchanged compared to prior EKG. - Radiology Data Radiology results: pending, report reviewed, image reviewed Print Report Referring Physician: ENEDINA GREENBERG Patient Name: NEENA GARCIA Date of : 1947-02-12 Sex: Male Report Date: 2019-03-29 Report Status: Finalized Findings [facility] [address] [place] [address] Cat Scan Report Signed Patient: NEENA GARCIA MR#: [id number] : 02/12/1947 Acct:[id number] Age/Sex: 72 / M ADM Date: 03/28/19 Loc: ED Attending Dr: Ordering Physician: ENEDINA GREENBERG MD Date of Service: 03/28/19 Procedure(s): CT abdomen pelvis wo con Accession Number(s): [id number] cc: ENEDINA GREENBERG MD CT of the abdomen and pelvis without contrast INDICATION: Shortness of breath COMPARISON: 02/03/2019 FINDINGS: cardiomegaly is again seen. The right pleural effusion has diminished. Left pleural effusion remains with moderate left basilar consolidation. Surgical clips are again seen in the upper abdomen. 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 The liver, spleen, pancreas and adrenal glands are unchanged. CT of the pelvis shows spinal fusion. No diverticulosis or diverticulitis. There is no bowel obstruction seen. No bowel obstruction is seen. Prostate is moderately enlarged. FINDINGS: Chronic findings as previously described. No acute abnormality. Automated exposure control was utilized to diminish radiation dose. Signer Name: Gilson Lee MD Signed: 03/29/2019 12:28 AM Workstation Name: [id number] Transcribed By: JM Dictated By: Gilson Lee MD Electronically Authenticated By: Gilson Lee MD Signed Date/Time: 03/29/19 0028 Print Report Referring Physician: ENEDINA GREENBERG Patient Name: NEENA GARCIA Date of : 1947-02-12 Sex: Male Report Date: 2019-03-29 Report Status: Finalized Findings [address] [address] XRay Report Signed Patient: NEENA GARCIA MR#: [id number] : 02/12/1947 Acct:[id number] Age/Sex: 72 / M ADM Date: 03/28/19 Loc: ED Attending Dr: Ordering Physician: ENEDINA GREENBERG MD Date of Service: 03/28/19 Procedure(s): XR chest 1V ap Accession Number(s): [id number] cc: ENEDINA GREENBERG MD Fluoro Time In Minutes: CHEST 1 VIEW INDICATION / CLINICAL INFORMATION: Chest Pain. COMPARISON: Chest radiograph 03/14/2019 FINDINGS: SUPPORT DEVICES: Stable position of a right IJ tunneled central venous catheter. Left brachiocephalic stent unchanged. HEART / MEDIASTINUM: Stable cardiomegaly. LUNGS / PLEURA: A moderate left pleural effusion with adjacent atelectasis/consolidation is similar to minimally increased. Mild pulmonary vascular congestion. No pneumothorax. ADDITIONAL FINDINGS: Surgical clips in the upper abdomen. IMPRESSION: 1. Moderate left pleural effusion with adjacent atelectasis/consolidation is similar to minimally increased. Otherwise no significant change. Signer Name: Debbie Maxwell MD Signed: 03/29/2019 12:11 AM Workstation Name: [id number] Transcribed By: [facility] Dictated By: Debbie Maxwell MD Electronically Authenticated By: Debbie Maxwell MD Signed Date/Time: 03/29/1910 DD/ Critical care attestation.: If time is entered above; I have spent that time in minutes in the direct care of this critically ill patient, excluding procedure time. ED Disposition Clinical Impression: Pleural effusion, ESRD (end stage renal disease) on dialysis, Elevated troponin I level Disposition: - TO HOME OR SELFCARE Is pt being admited?: No Does the pt Need Aspirin: No Condition: Good Additional Instructions: Continue outpatient medications. Follow up in 2 days for repeat checkup/evaluation either in this emergency room, with the primary care doctor, or with your private switchgear repairer. Recommend follow-up with a boring machine operator helper, such as Dr. Liao, within the next 7 days, for recurrent left-sided pleural effusion. Recommend follow-up with the timber poisoner, such as Dr. Sage, within the next 7 days, for complaint of recurrent chest pain. Return to the emergency room right away with new, worsened or different symptoms, or symptoms not present on the initial emergency room evaluation. Referrals: LESLIE BOX MD [Staff Physician] - 3-5 Days COLLEEN SAGE MD [Staff Physician] - 3-5 Days KENNY LIAO MD [Staff Physician] - 3-5 Days ARSLAN PIMENTEL MD [Staff Physician] - 3-5 Days
[2019-03-29 00:01] LABS: Basophils # (Auto) 0.1 K/mm3 (0.0-0.1); Basophils % (Auto) 1.4 % (0.0-1.8); Eosinophils # (Auto) 0.1 K/mm3 (0.0-0.4); Eosinophils % (Auto) 2.4 % (0.0-4.3); Hemoglobin 12.8 gm/dl (11.8-15.2); Lymphocytes # (Auto) 0.9 K/mm3 (1.2-5.4); Lymphocytes % (Auto) 24.7 % (13.4-35.0); Mean Corpuscular HGB Conc 32 % (32-34); Mean Corpuscular Volume 98 fl (84-94); Monocytes # (Auto) 0.4 K/mm3 (0.0-0.8); Platelet Count 103 K/mm3 (140-440); Red Cell Distribution Width 15.2 % (13.2-15.2)
[2019-03-29 00:08] LABS: INR 1.42 (0.87-1.13)
[2019-03-29 00:09] LABS: Partial Thromboplastin Time 33.3 Sec. (24.2-36.6)
[2019-03-29 00:13] LABS: Calcium 8.4 mg/dL (8.4-10.2)
--- NOTE | 2019-03-29 00:16 | XRay Report ---
CHEST 1 VIEW INDICATION / CLINICAL INFORMATION: Chest Pain. COMPARISON: Chest radiograph 03/14/2019 FINDINGS: SUPPORT DEVICES: Stable position of a right IJ tunneled central venous catheter. Left brachiocephalic stent unchanged. HEART / MEDIASTINUM: Stable cardiomegaly. LUNGS / PLEURA: A moderate left pleural effusion with adjacent atelectasis/consolidation is similar t o minimally increased. Mild pulmonary vascular congestion. No pneumothorax. ADDITIONAL FINDINGS: Surgical clips in the upper abdomen. IMPRESSION: 1. Moderate left pleural effusion with adjacent atelectasis/consolidation is similar to minimally inc reased. Otherwise no significant change. Signer Name: Debbie Maxwell MD Signed: 03/29/2019 12:11 AM Workstation Name: [id number]
--- NOTE | 2019-03-29 00:32 | Cat Scan Report ---
CT of the abdomen and pelvis without contrast INDICATION: Shortness of breath COMPARISON: 02/03/2019 FINDINGS: cardiomegaly is again seen. The right pleural effusion has diminished. Left pleural effusio n remains with moderate left basilar consolidation. Surgical clips are again seen in the upper abdome n. 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 The liver, spleen, pancreas and adrenal glands are unchanged. CT of the pelvis shows spinal fusion. No diverticulosis or diverticulitis. There is no bowel obstruct ion seen. No bowel obstruction is seen. Prostate is moderately enlarged. FINDINGS: Chronic findings as previously described. No acute abnormality. Automated exposure control was utilized to diminish radiation dose. Signer Name: Gilson Lee MD Signed: 03/29/2019 12:28 AM Workstation Name: [id number]
[2019-03-29] MEDS ORDERED: SUCRALFATE 1 GM/10 ML ORAL LIQD PO ONE (01:04)
[2019-03-29 02:02] VITALS: BP 178/126
[2019-03-29 03:45] LABS: Chol/HDL Ratio 2.12 %
== END 2019-03-29 03:30 | disposition home or self-care (01) ==
LOC: ED 22:59
DX: J90 Pleural effusion, not elsewhere classified (principal); R79.89 Other specified abnormal findings of blood chemistry; I13.2 Hypertensive heart and chronic kidney disease with heart failure and with stage 5 chronic kidney disease, or end stage renal disease; E11.22 Type 2 diabetes mellitus with diabetic chronic kidney disease; N18.6 End stage renal disease; Z99.2 Dependence on renal dialysis; I50.9 Heart failure, unspecified; M19.90 Unspecified osteoarthritis, unspecified site; J44.9 Chronic obstructive pulmonary disease, unspecified; R10.9 Unspecified abdominal pain; R11.2 Nausea with vomiting, unspecified; R19.7 Diarrhea, unspecified
CPT/HCPCS: 36415; 71045; 74176; 80048; 80061; 82271; 82550; 83735; 84484; 85025; 85610; 85730; 93005; 93010; 96374; 96375; 99285; J2405

== ENCOUNTER 2019-04-01 21:11 | Inpatient (IN) | payer MEDICAID ==
[2019-04-01] MEDS ORDERED: ZOFRAN IV ONE (22:24)
[2019-04-01] MEDS ORDERED: MORPHINE IV ONE (22:24)
--- NOTE | 2019-04-01 23:46 | Cat Scan Report ---
CT cervical spine wo con INDICATION / CLINICAL INFORMATION: pain after fall. TECHNIQUE: All CT scans at this location are performed using CT dose reduction for ALARA by means of automated e xposure control. COMPARISON: 02/27/2019 FINDINGS: Extensive postoperative findings of anterior and posterior cervical fusion. No acute fractures are identified. The appearances unchanged from the comparison study Alignment is well maintained.. IMPRESSION: 1. Extensive postoperative changes without acute fracture. Signer Name: Sd Rivera MD Signed: 04/01/2019 11:42 PM Workstation Name: [id number]
--- NOTE | 2019-04-01 23:48 | Cat Scan Report ---
CT lumbar spine wo con INDICATION / CLINICAL INFORMATION: 72 years Male; pain after fall. TECHNIQUE: Axial CT images of the lumbar spine were obtained after administration of intrathecal contrast. Sagi ttal and coronal reformatted images were produced. All CT scans at this location are performed using CT dose reduction for ALARA by means of automated exposure control. COMPARISON: 02/27/2019 FINDINGS: POST-SURGICAL CHANGES: Posterior fusion hardware seen at L5-S1. There is significant loosening around both intrapedicular screws at both levels. Donor site for fusion material seen in the posterior rani ac bone on the right. Partial, bilateral hemilaminectomy seen at L4-5. Widened facet joints noted at L4-5. Flexion and extension views of the lumbar spine may be helpful in evaluating for segmental inst ability. ALIGNMENT: Straightening of the lumbar spine noted. VERTEBRAE: No signs of acute fracture. There is significant erosion along the anterior aspect of the superior endplate at L5-this unchanged from prior. Multiple Schmorl's node seen along the endplates at various levels. Similar findings seen on prior. Healing fracture seen along the transverse process on the right at L3-periosteal reaction suggested. Diffuse mixture of sclerosis and lucency seen throughout the visualized skeleton - renal osteodystrop hy might be consideration given the appearance of polycystic kidneys. Rugger jersey type appearance o f the spine as seen on sagittal reconstructions. INTERVERTEBRAL DISCS: Mild disc disease seen at L3-4 and L4-5. Mild thecal sac narrowing noted at the se levels. PARASPINAL SOFT TISSUES: No significant abnormality. There is bony fusion of the anterior sacroiliac joint on the left. ADDITIONAL FINDINGS: Diffuse, marked atherosclerotic disease noted. IMPRESSION: 1. No definitive signs of acute bony trauma to the lumbar spine. 2. Loosening of hardware noted. Signer Name: Brad Steen MD, III Signed: 04/01/2019 11:43 PM Workstation Name: [id number]
--- NOTE | 2019-04-01 23:50 | Cat Scan Report ---
CT thoracic spine wo con INDICATION / CLINICAL INFORMATION: pain after fall. TECHNIQUE: All CT scans at this location are performed using CT dose reduction for ALARA by means of automated e xposure control. COMPARISON: None available. FINDINGS: Posterior fusion hardware is identified in the upper thoracic spine. There are no compression fractures. Bony alignment is well maintained. There is diffuse bony demineralization. Bilateral pleural effusions are visualized. IMPRESSION: 1. No acute fractures. Signer Name: Sd Rivera MD Signed: 04/01/2019 11:46 PM Workstation Name: [id number]
--- NOTE | 2019-04-01 23:53 | XRay Report ---
CHEST 1 VIEW INDICATION / CLINICAL INFORMATION: dyspnea. COMPARISON: 03/28/2019 FINDINGS: SUPPORT DEVICES: Stable, satisfactory device positioning. HEART / MEDIASTINUM: Mild cardiomegaly LUNGS / PLEURA: Diffuse interstitial disease has developed. Moderate to large left pleural effusion p ersists. No pneumothorax. ADDITIONAL FINDINGS: No significant additional findings. IMPRESSION: 1. Acute interstitial pulmonary edema and left pleural effusion. Signer Name: Sd Rivera MD Signed: 04/01/2019 11:49 PM Workstation Name: [id number]
[2019-04-02 00:09] LABS: Basophils % (Auto) 0.6 % (0.0-1.8); Eosinophils # (Auto) 0.1 K/mm3 (0.0-0.4); Eosinophils % (Auto) 1.6 % (0.0-4.3); Hematocrit 36.7 % (35.5-45.6); Hemoglobin 11.9 gm/dl (11.8-15.2); Lymphocytes # (Auto) 0.9 K/mm3 (1.2-5.4); Lymphocytes % (Auto) 19.4 % (13.4-35.0); Mean Corpuscular HGB Conc 32 % (32-34); Mean Corpuscular Volume 97 fl (84-94); Monocytes # (Auto) 0.3 K/mm3 (0.0-0.8); Monocytes % (Auto) 5.8 % (0.0-7.3); Platelet Count 120 K/mm3 (140-440); Red Blood Count 3.79 M/mm3 (3.65-5.03); Red Cell Distribution Width 15.5 % (13.2-15.2)
--- NOTE | 2019-04-02 00:22 | XRay Report ---
AP PELVIS 04/01/2019 INDICATION / CLINICAL INFORMATION: pelvis pain after fall. COMPARISON: 02/20/2019 FINDINGS: The bones are diffusely osteopenic. No fractures are demonstrated. There are postsurgical changes at the lumbosacral junction. Extensive arterial vascular calcifications are present. Signer Name: Sd Rivera MD Signed: 04/02/2019 12:18 AM Workstation Name: [id number]
[2019-04-02 00:24] LABS: Albumin 3.4 g/dL (3.9-5); Calcium 8.8 mg/dL (8.4-10.2)
[2019-04-02 00:32] LABS: INR 1.4 (0.87-1.13)
[2019-04-02] MEDS ORDERED: NORMODYNE IV ONE ×3 (00:34→04:49)
[2019-04-02] MEDS ORDERED: CALCIUM GLUCONATE 1,000 MG in NACL 0.9% 100 ML IV ONE (01:10)
[2019-04-02] MEDS ORDERED: D50W (25GM) Syringe IV ONE (01:10)
[2019-04-02] MEDS ORDERED: HumuLIN R IV ONE (01:10)
[2019-04-02] MEDS ORDERED: KIONEX PO ONE ×2 (01:10→05:51)
[2019-04-02] MEDS ORDERED: PROVENTIL IH ONE (01:20)
--- NOTE | 2019-04-02 01:26 | Emergency Department Report ---
ED General Adult HPI - General Chief complaint: Fall Stated complaint: BACK PAIN/CP/SOB Time Seen by Provider: 04/01/19 22:14 Source: patient, EMS Mode of arrival: Stretcher Limitations: Other - History of Present Illness Initial comments: Patient is a 72-year-old -[place] male with past medical history of end- stage renal disease who is on dialysis Monday as well as hypertension chronic back pain as well as atrial fibrillation who is presenting status post fall. Patient states that he has to wheelchairs at home and was tr ansferred to the one which is able to fit into his bathroom when he fell. Patient denies any head injury and states that he has increased pain in his back from the lower neck hallway to the buttock. Patient states that before this began he was having some mild shortness of breath since the fall is has palpitations and increased shortness of breath. Patient's denies chest pressure. Patient states that he had to turn his oxygen up to 4 L which is increased from his baseline of 2 L. Patient states that did help his dyspnea. Patient denies nausea vomiting or head injury. Severity scale (0 -10): 6 - Related Data Home Medications Medication Instructions Recorded Confirmed Last Taken diphenhydrAMINE [Benadryl CAP] 50 mg PO Q3D PRN 01/30/19 03/07/19 Unknown Previous Rx's Medication Instructions Recorded Last Taken Type AtorvaSTATin [Lipitor] 40 mg PO QHS #30 tablet 12/29/18 01/01/19 Rx Famotidine [Pepcid] 10 mg PO BID #15 tablet 12/29/18 01/01/19 Rx amLODIPine [Norvasc] 10 mg PO DAILY #30 tablet 12/29/18 01/01/19 Rx hydrALAZINE [Apresoline TAB] 50 mg PO BID #60 tablet 12/29/18 01/01/19 Rx Carvedilol [Coreg] 25 mg PO BID #60 tablet 01/17/19 Unknown Rx Epoetin Prashant 10,000 Unit [Procrit] 10,000 unit SUB-Q KATERYNA PRN vial 02/02/19 Unknown Rx Lisinopril [Zestril TAB] 5 mg PO QDAY #30 tablet 02/02/19 Unknown Rx Ondansetron [Zofran ODT TAB] 4 mg PO Q8HR PRN #14 tab.rapdis 02/28/19 Unknown Rx Polyethylene Glycol 3350 [Miralax 17 gm PO QDAY PRN #15 packet 03/17/19 Unknown Rx 3350] oxyCODONE [roxiCODONE] 2 tab PO Q6H PRN #30 tablet 03/17/19 Unknown Rx Allergies Allergy/AdvReac Type Severity Reaction Status Date / Time aspirin Allergy Unknown Verified 02/20/19 22:06 pork derived (porcine) Allergy Rash Verified 02/20/19 22:06 venom-honey bee Allergy Anaphylaxis Verified 02/20/19 22:06 [bee venom (honey bee)] Pork/Porcine Containing AdvReac Severe Nausea,VOMI Verified 02/20/19 22:06 Products TING ED Review of Systems ROS: Stated complaint: BACK PAIN/CP/SOB Other details as noted in HPI Comment: All other systems reviewed and negative ED Past Medical Hx - Past Medical History Hx Hypertension: Yes Hx Heart Attack/AMI: No Hx Congestive Heart Failure: Yes Hx Diabetes: Yes Hx Deep Vein Thrombosis: Yes Hx Pulmonary Embolism: No Hx Liver Disease: Yes Hx Renal Disease: No Hx Arthritis: Yes (generalized) Hx Seizures: No Hx Kidney Stones: No Hx Psychiatric Treatment: Yes (PTSD) Hx Asthma: No Hx COPD: Yes Hx Tuberculosis: No Hx HIV: No Additional medical history: 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 abd surgery after war related ingury partial "stomach removal'. Left upper extremity amputation below elbow - Social History Smoking Status: Unknown if ever smoked Substance Use Type: None - Medications Home Medications: Home Medications Medication Instructions Recorded Confirmed Last Taken Type AtorvaSTATin [Lipitor] 40 mg PO QHS #30 tablet 12/29/18 03/07/19 01/01/19 Rx Famotidine [Pepcid] 10 mg PO BID #15 tablet 12/29/18 03/07/19 01/01/19 Rx amLODIPine [Norvasc] 10 mg PO DAILY #30 tablet 12/29/18 03/07/19 01/01/19 Rx hydrALAZINE [Apresoline TAB] 50 mg PO BID #60 tablet 12/29/18 03/07/19 01/01/19 Rx Carvedilol [Coreg] 25 mg PO BID #60 tablet 01/17/19 03/07/19 Unknown Rx diphenhydrAMINE [Benadryl CAP] 50 mg PO Q3D PRN 01/30/19 03/07/19 Unknown History Epoetin Prashant 10,000 Unit [Procrit] 10,000 unit SUB-Q KATERYNA PRN vial 02/02/19 03/07/19 Unknown Rx Lisinopril [Zestril TAB] 5 mg PO QDAY #30 tablet 02/02/19 03/07/19 Unknown Rx Ondansetron [Zofran ODT TAB] 4 mg PO Q8HR PRN #14 tab.rapdis 02/28/19 03/07/19 Unknown Rx Polyethylene Glycol 3350 [Miralax 17 gm PO QDAY PRN #15 packet 03/17/19 Unknown Rx 3350] oxyCODONE [roxiCODONE] 2 tab PO Q6H PRN #30 tablet 03/17/19 Unknown Rx ED Physical Exam - General Limitations: Other General appearance: alert, in no apparent distress - Head Head exam: Present: atraumatic, normocephalic - Eye Eye exam: Present: normal appearance, PERRL, EOMI - ENT ENT exam: Present: mucous membranes moist - Neck Neck exam: Present: normal inspection, tenderness, full ROM - Respiratory Respiratory exam: Present: normal lung sounds bilaterally, rales (bilateral base). Absent: respiratory distress, wheezes, rhonchi, prolonged expiratory - Cardiovascular Cardiovascular Exam: Present: tachycardia, irregular rhythm. Absent: systolic murmur, diastolic murmur, rubs, gallop - GI/Abdominal GI/Abdominal exam: Present: soft, normal bowel sounds. Absent: distended, tenderness, guarding, rebound - Rectal Rectal exam: Present: deferred - Extremities Exam Extremities exam: Present: normal inspection - Back Exam Back exam: Present: normal inspection, paraspinal tenderness, vertebral tenderness - Neurological Exam Neurological exam: Present: alert, oriented X3 - Psychiatric Psychiatric exam: Present: normal affect, normal mood - Skin Skin exam: Present: warm, dry, intact, normal color. Absent: rash ED Course Vital Signs 04/01/19 04/01/19 04/01/19 21:52 22:24 23:51 Temperature 97.5 F L Pulse Rate 94 H Respiratory 16 16 14 Rate Blood Pressure Blood Pressure 177/147 186/142 [Left] O2 Sat by Pulse 98 98 97 Oximetry 04/02/19 04/02/19 00:45 00:53 Temperature Pulse Rate 90 91 H Respiratory 14 Rate Blood Pressure 177/143 Blood Pressure 167/130 [Left] O2 Sat by Pulse 98 Oximetry ED Medical Decision Making - Lab Data Result diagrams: 04/01/19 23:29 04/01/19 23:29 Lab Results 04/01/19 04/01/19 04/01/19 Range/Units 23:29 23:29 23:29 WBC 4.4 L (4.5-11.0) K/mm3 RBC 3.79 (3.65-5.03) M/mm3 Hgb 11.9 (11.8-15.2) gm/dl Hct 36.7 (35.5-45.6) % MCV 97 H (84-94) fl MCH 31 (28-32) pg MCHC 32 (32-34) % RDW 15.5 H (13.2-15.2) % Plt Count 120 L (140-440) K/mm3 Lymph % (Auto) 19.4 (13.4-35.0) % Creek % (Auto) 5.8 (0.0-7.3) % Eos % (Auto) 1.6 (0.0-4.3) % Baso % (Auto) 0.6 (0.0-1.8) % Lymph # 0.9 L (1.2-5.4) K/mm3 Creek # 0.3 (0.0-0.8) K/mm3 Eos # 0.1 (0.0-0.4) K/mm3 Baso # 0.0 (0.0-0.1) K/mm3 Seg Neutrophils % 72.6 H (40.0-70.0) % Seg Neutrophils # 3.2 (1.8-7.7) K/mm3 PT 16.8 H (12.2-14.9) Sec. INR 1.40 H (0.87-1.13) APTT 34.0 (24.2-36.6) Sec. VBG pH (7.320-7.420) Sodium 136 L (137-145) mmol/L Potassium 7.3 H* D (3.6-5.0) mmol/L Chloride 98.3 (98-107) mmol/L Carbon Dioxide 15 L (22-30) mmol/L Anion Gap 30 mmol/L BUN 123 H (9-20) mg/dL Creatinine 12.6 H D (0.8-1.5) mg/dL Estimated GFR 5 ml/min BUN/Creatinine Ratio 10 % Glucose 94 (75-100) mg/dL Calcium 8.8 (8.4-10.2) mg/dL Total Bilirubin 0.70 (0.1-1.2) mg/dL AST 30 (5-40) units/L ALT 28 (7-56) units/L Alkaline Phosphatase 135 H (35-129) units/L Troponin T 0.405 H* D (0.00-0.029) ng/mL Total Protein 7.7 (6.3-8.2) g/dL Albumin 3.4 L (3.9-5) g/dL Albumin/Globulin Ratio 0.8 % 04/01/ Range/Units 23:29 WBC (4.5-11.0) K/mm3 RBC (3.65-5.03) M/mm3 Hgb (11.8-15.2) gm/dl Hct (35.5-45.6) % MCV (84-94) fl MCH (28-32) pg MCHC (32-34) % RDW (13.2-15.2) % Plt Count (140-440) K/mm3 Lymph % (Auto) (13.4-35.0) % Creek % (Auto) (0.0-7.3) % Eos % (Auto) (0.0-4.3) % Baso % (Auto) (0.0-1.8) % Lymph # (1.2-5.4) K/mm3 Creek # (0.0-0.8) K/mm3 Eos # (0.0-0.4) K/mm3 Baso # (0.0-0.1) K/mm3 Seg Neutrophils % (40.0-70.0) % Seg Neutrophils # (1.8-7.7) K/mm3 PT (12.2-14.9) Sec. INR (0.87-1.13) APTT (24.2-36.6) Sec. VBG pH 7.228 L (7.320-7.420) Sodium (137-145) mmol/L Potassium (3.6-5.0) mmol/L Chloride (98-107) mmol/L Carbon Dioxide (22-30) mmol/L Anion Gap mmol/L BUN (9-20) mg/dL Creatinine (0.8-1.5) mg/dL Estimated GFR ml/min BUN/Creatinine Ratio % Glucose (75-100) mg/dL Calcium (8.4-10.2) mg/dL Total Bilirubin (0.1-1.2) mg/dL AST (5-40) units/L ALT (7-56) units/L Alkaline Phosphatase (35-129) units/L Troponin T (0.00-0.029) ng/mL Total Protein (6.3-8.2) g/dL Albumin (3.9-5) g/dL Albumin/Globulin Ratio % - EKG Data -: EKG Interpreted by Fl - EKG Data 04/02/19 01:24 EKG shows atrial fibrillation with a rate of 106. Bentley is leftward is a prolonged QT is evidence of LVH. There is no ST segment elevations or depressions or T-wave changes - Radiology Data X-ray shows acute pulmonary interstitial edema with a left sided pleural effusion. CT of the cervical, thoracic, and lumbar spine show intact hardware but no acute fracture. X-ray of the pelvis shows no acute fracture. - Medical Decision Making Patient's main complaint was his back pain. Patient did find some relief after a dose of morphine was given. Patient's heart rate both improved after pain medications. Blood pressure treated with labetalol. There was a delay with the resulting of the patient's potassium. When it did return did show that the patient had a potassium 7.4. No EKGs changes were seen at this time. Patient was given a cocktail of D50 with insulin, Kayexalate, calcium gluconate, sodium bicarbonate. No treatment will be given as well too rapidly reduce the potassium level. Dr. Nicole with nephrology is been consulted will arrange for dialysis. Patient will be admitted to the hospitalist service under Dr. Saez. Critical Care Time: Yes (30) Critical care attestation.: If time is entered above; I have spent that time in minutes in the direct care of this critically ill patient, excluding procedure time. ED Disposition Clinical Impression: Atrial fibrillation with rapid ventricular response, Pulmonary edema, Pleural effusion, ESRD needing dialysis, HTN (hypertension), Hyperkalemia, Acute exacerbation of chronic low back pain Disposition: OP ADMIT IP TO THIS HOSP Is pt being admited?: Yes Does the pt Need Aspirin: No Condition: Stable Time of Disposition: 01:30
[2019-04-02] MEDS ORDERED: TYLENOL PO PRN (01:54)
[2019-04-02] MEDS ORDERED: SODIUM CHLORIDE FLUSH SYRINGE 10 ML IV PRN (01:54)
--- NOTE | 2019-04-02 02:08 | History and Physical Report ---
History of Present Illness Date of examination: 04/02/19 History of present illness: 72-year-old man with a history of end-stage renal disease on dialysis, hypertension, CHF, A. fib, coronary artery disease, PTSD, COPD comes emergency room with complaints of fall, he fell out of his wheelchair complain of back pain. Patient is scheduled for dialysis today Review of systems Constitutional: no weight loss, chills, fever Ears, eyes, nose, mouth and throat: no nasal congestion, no nasal discharge, no sinus pressure, no vision change, no red eye. Neck: No neck pain or rigidity. Cardiovascular: no palpitations Respiratory: no cough, shortness of breath Gastrointestinal: no hematochezia, abdominal pain Genitourinary : no frequency , no hematuria Musculoskeletal: no joint swelling or muscle ache Integumentary: no rash, no pruritis Neurological: no parathesias, no focal weakness Endocrine: no cold or heat intolerance, no polyuria or polydipsia Hematologic/Lymphatic: no easy bruising, no easy bleeding, no gland swelling Allergic/Immunologic: no urticaria, no angioedema. PAST MEDICAL HISTORY: end-stage renal disease on dialysis, hypertension, CHF, A. fib, COPD PAST SURGICAL HISTORY: clot removal in left upper extremity left arm amputation, multiple fingers amputation, AV fistula, neck and back surgery SOCIAL HISTORY: Denies alcohol, drugs, tobacco FAMILY HISTORY: Hypertension Medications and Allergies Allergies Allergy/AdvReac Type Severity Reaction Status Date / Time aspirin Allergy Unknown Verified 02/20/19 22:06 pork derived (porcine) Allergy Rash Verified 02/20/19 22:06 venom-honey bee Allergy Anaphylaxis Verified 02/20/19 22:06 [bee venom (honey bee)] Pork/Porcine Containing AdvReac Severe Nausea,VOMI Verified 02/20/19 22:06 Products TING Home Medications Medication Instructions Recorded Confirmed Last Taken Type AtorvaSTATin [Lipitor] 40 mg PO QHS #30 tablet 12/29/18 03/07/19 01/01/19 Rx Famotidine [Pepcid] 10 mg PO BID #15 tablet 12/29/18 03/07/19 01/01/19 Rx amLODIPine [Norvasc] 10 mg PO DAILY #30 tablet 12/29/18 03/07/19 01/01/19 Rx hydrALAZINE [Apresoline TAB] 50 mg PO BID #60 tablet 12/29/18 03/07/19 01/01/19 Rx Carvedilol [Coreg] 25 mg PO BID #60 tablet 01/17/19 03/07/19 Unknown Rx diphenhydrAMINE [Benadryl CAP] 50 mg PO Q3D PRN 01/30/19 03/07/19 Unknown History Epoetin Prashant 10,000 Unit [Procrit] 10,000 unit SUB-Q KATERYNA PRN vial 02/02/19 03/07/19 Unknown Rx Lisinopril [Zestril TAB] 5 mg PO QDAY #30 tablet 02/02/19 03/07/19 Unknown Rx Ondansetron [Zofran ODT TAB] 4 mg PO Q8HR PRN #14 tab.rapdis 02/28/19 03/07/19 Unknown Rx Polyethylene Glycol 3350 [Miralax 17 gm PO QDAY PRN #15 packet 03/17/19 Unknown Rx 3350] oxyCODONE [roxiCODONE] 2 tab PO Q6H PRN #30 tablet 03/17/19 Unknown Rx Active Meds: Active Medications Acetaminophen (Tylenol) 650 mg PO Q4H PRN PRN Reason: Pain MILD(1-3)/Fever >100.5/DOUGLAS Ondansetron HCl (Zofran) 4 mg IV Q8H PRN PRN Reason: Nausea And Vomiting Oxycodone/Acetaminophen (Percocet 5/325) 1 tab PO Q6H PRN PRN Reason: Pain, Moderate (4-6) Sodium Chloride (Sodium Chloride Flush Syringe 10 Ml) 10 ml IV BID BEAN Sodium Chloride (Sodium Chloride Flush Syringe 10 Ml) 10 ml IV PRN PRN PRN Reason: LINE FLUSH Exam - Constitutional Vitals: Temp Pulse Resp BP Pulse Ox 97.5 F L 91 H 14 167/130 98 04/01/19 21:52 04/02/19 00:53 04/02/19 00:53 04/02/19 00:53 04/02/19 00:53 Results - Labs CBC & Chem 7: 04/01/19 23:29 04/01/19 23:29 Labs: Abnormal lab results 04/01/19 04/01/19 04/01/19 Range/Units 23:29 23:29 23:29 WBC 4.4 L (4.5-11.0) K/mm3 MCV 97 H (84-94) fl RDW 15.5 H (13.2-15.2) % Plt Count 120 L (140-440) K/mm3 Lymph # 0.9 L (1.2-5.4) K/mm3 Seg Neutrophils % 72.6 H (40.0-70.0) % PT 16.8 H (12.2-14.9) Sec. INR 1.40 H (0.87-1.13) VBG pH (7.320-7.420) Sodium 136 L (137-145) mmol/L Potassium 7.3 H* D (3.6-5.0) mmol/L Carbon Dioxide 15 L (22-30) mmol/L BUN 123 H (9-20) mg/dL Creatinine 12.6 H D (0.8-1.5) mg/dL Alkaline Phosphatase 135 H (35-129) units/L Troponin T 0.405 H* D (0.00-0.029) ng/mL Albumin 3.4 L (3.9-5) g/dL 04/01/19 Range/Units 23:29 WBC (4.5-11.0) K/mm3 MCV (84-94) fl RDW (13.2-15.2) % Plt Count (140-440) K/mm3 Lymph # (1.2-5.4) K/mm3 Seg Neutrophils % (40.0-70.0) % PT (12.2-14.9) Sec. INR (0.87-1.13) VBG pH 7.228 L (7.320-7.420) Sodium (137-145) mmol/L Potassium (3.6-5.0) mmol/L Carbon Dioxide (22-30) mmol/L BUN (9-20) mg/dL Creatinine (0.8-1.5) mg/dL Alkaline Phosphatase (35-129) units/L Troponin T (0.00-0.029) ng/mL Albumin (3.9-5) g/dL Assessment and Plan Assessment Hyperkalemia End-stage renal disease on dialysis lower Back pain A. fib Chronically elevated troponin Coronary artery disease CHF, Chronic, systolic Hypertension PTSD Thrombocytopenia Plan Admit to medicine s/p cocktail for hyperkalemia, follow potassium level renal was consulted for dialysis check cardiac enzymes, echo Continue appropriate outpatient medications DVT prophylaxis, percocet
[2019-04-02] MEDS: PERCOCET 5/325 PO PRN ×2 (02:33→14:14)
[2019-04-02 04:36] LABS: Creatine Kinase MB 12.4 ng/mL (0.0-4.0)
[2019-04-02 04:55] LABS: Calcium 8.6 mg/dL (8.4-10.2)
[2019-04-02] MEDS ORDERED: CALCIUM CHLORIDE IVP ONE (05:50)
[2019-04-02] MEDS ORDERED: SODIUM BICARBONATE PEDIATRIC ONE (06:07)
[2019-04-02] MEDS ORDERED: KIONEX ONE (06:07)
[2019-04-02] MEDS ORDERED: CALCIUM CHLORIDE IV ONE (06:08)
[2019-04-02] MEDS ORDERED: NACL 0.9% 100 ML IV PRN ×2 (06:36→10:30)
[2019-04-02] MEDS ORDERED: ZOFRAN ONE (06:56)
[2019-04-02] MEDS ORDERED: MORPHINE ONE (06:57)
[2019-04-02] MEDS ORDERED: ZOFRAN IV ONE (07:14)
[2019-04-02] MEDS ORDERED: MORPHINE IV ONE (07:14)
[2019-04-02] MEDS ORDERED: APRESOLINE IV SCH (09:00)
--- NOTE | 2019-04-02 09:32 | Consultation ---
History of Present Illness - Reason for Consult Consult date: 04/02/19 end stage renal disease, hyperkalemia, metabolic acidosis - History of Present Illness The patient is a 72 YO male who is known to our service with history significant for DM type 2, HTN, Chronic A.fib, CAD, CHF, PTSD, PAD s/p left forearm amputation, chronic L pleural effusion (Transudate) s/p multiple thoracentesis and ESRD on hemodialysis (TTS) who presented to [facility] ED after he sustained a fall. Per patient he fell out of his wheelchair complaint of body pain. Patient missed the last 2 sessions of hemodialysis. Labs were significant for K 7.3 and bicarb 15. Chest x-ray in the ER showed a L pleural effusion and interstitial pulmonary edema. Pt was admitted for further management. Nephrology was consulted for further evaluation. Past History Past Medical History: atrial fib, anemia, diabetes, dialysis, ESRD, heart failure, hypertension Medications and Allergies Allergies Allergy/AdvReac Type Severity Reaction Status Date / Time aspirin Allergy Unknown Verified 02/20/19 22:06 pork derived (porcine) Allergy Rash Verified 02/20/19 22:06 venom-honey bee Allergy Anaphylaxis Verified 02/20/19 22:06 [bee venom (honey bee)] Pork/Porcine Containing AdvReac Severe Nausea,VOMI Verified 02/20/19 22:06 Products TING Home Medications Medication Instructions Recorded Confirmed Last Taken Type Oxycodone HCl [oxyCODONE] 10 mg PO Q6H PRN 04/02/19 04/02/19 Unknown History Active Meds: Active Medications Acetaminophen (Tylenol) 650 mg PO Q4H PRN PRN Reason: Pain MILD(1-3)/Fever >100.5/DOUGLAS Hydralazine HCl (Apresoline) 10 mg IV Q4HR BEAN Sodium Chloride (Nacl 0.9%) 100 mls @ 999 mls/hr IV KATERYNA PRN PRN Reason: Hypotension Ondansetron HCl (Zofran) 4 mg IV Q8H PRN PRN Reason: Nausea And Vomiting Oxycodone/Acetaminophen (Percocet 5/325) 1 tab PO Q6H PRN PRN Reason: Pain, Moderate (4-6) Last Admin: 04/02/19 02:33 Dose: 1 tab Documented by: Sodium Chloride (Sodium Chloride Flush Syringe 10 Ml) 10 ml IV BID BEAN Sodium Chloride (Sodium Chloride Flush Syringe 10 Ml) 10 ml IV PRN PRN PRN Reason: LINE FLUSH Review of Systems Constitutional: no weight loss, no weight gain, no fever, no chills, no anorexia, no poor appetite Cardiovascular: shortness of breath, dyspnea on exertion, high blood pressure, no chest pain, no orthopnea, no edema, no syncope, no lightheadedness, no leg edema Respiratory: shortness of breath, dyspnea on exertion, no cough Gastrointestinal: no abdominal pain, no nausea, no vomiting, no diarrhea Rectal: no bleeding Musculoskeletal: low back pain, no muscle weakness, no muscle cramps Integumentary: no rash Neurological: no paralysis, no weakness, no convulsions, no aphasia, no change in speech, no change in mentation, no confusion, no memory loss Exam - Vital Signs Vital signs: Vital Signs Temp Resp BP Pulse Ox 97.5 F L 16 177/147 98 04/01/19 21:52 04/01/19 21:52 04/01/19 21:52 04/01/19 21:52 - General Appearance General appearance: well-developed, appears stated age, other (no distress, R IJ tunnel catheter) EENT: ATNC, PERRL, hearing intact, vision intact Neck: Present: neck supple, trachea midline Respiratory: Clear to Ascultation, Decreased Breath Sounds (L side) Heart: irregular, S1S2, no murmurs Gastrointestinal: Present: normoactive bowel sounds. Absent: tenderness, distended Integumentary: no rash, warm and dry Neurologic: no focal deficit, no asterixis, alert and oriented x3 Musculoskeletal: Present: other (L forearm amputation, no edema) Psychiatric: cooperative Results - Lab Results 04/01/19 23:29 04/02/19 03:44 Most recent lab results Calcium 8.6 mg/dL (8.4-10.2) 04/02/19 03:44 Assessment and Plan 1. ESRD: Continue hemodialysis three times a week, TTS schedule. 2. FEN: Hyperkalemia, HD today. Metabolic acidosis, HD today. Renal diet. Monitor. 3. Elevated Troponin. 4. Chronic L sided pleural effusion. 5. A.fib: Rate controlled. 6. HTN. 7. Anemia: Epogen if needed. 8. PAD.
[2019-04-02] MEDS ORDERED: NACL 0.9 (PRIMING MACHINE ONLY DIALYSIS) MC ONE (10:09)
[2019-04-02] MEDS ORDERED: BENADRYL IV PRN (10:30)
[2019-04-02 11:20] LABS: Creatine Kinase MB 12.2 ng/mL (0.0-4.0)
[2019-04-02] MEDS: SODIUM CHLORIDE FLUSH SYRINGE 10 ML IV SCH ×2 (14:10→22:08)
[2019-04-02] MEDS: APRESOLINE IV PRN ×2 (14:16→18:03)
[2019-04-02] MEDS: ZOFRAN IV PRN (14:16)
[2019-04-02] MEDS ORDERED: REGLAN IV PRN ×2 (15:06→15:12)
--- NOTE | 2019-04-02 19:40 | Event Note ---
Date: 04/02/19 Early am admission Hyperkalemia --went for HD Discharge tomorrow if K level normal
[2019-04-02] MEDS ORDERED: CALCIUM GLUCONATE 2,000 MG in NACL 0.9% 100 ML IV ONE (20:00)
[2019-04-03] MEDS: PERCOCET 5/325 PO PRN (01:29)
[2019-04-03] MEDS: ZOFRAN IV PRN (01:30)
[2019-04-03 08:02] LABS: Eosinophils # (Auto) 0.1 K/mm3 (0.0-0.4); Eosinophils % (Auto) 2.3 % (0.0-4.3); Hematocrit 33.3 % (35.5-45.6); Hemoglobin 10.8 gm/dl (11.8-15.2); Lymphocytes # (Auto) 0.8 K/mm3 (1.2-5.4); Lymphocytes % (Auto) 26.8 % (13.4-35.0); Mean Corpuscular HGB Conc 32 % (32-34); Mean Corpuscular Volume 96 fl (84-94); Monocytes # (Auto) 0.3 K/mm3 (0.0-0.8); Monocytes % (Auto) 11.9 % (0.0-7.3); Red Blood Count 3.47 M/mm3 (3.65-5.03); Red Cell Distribution Width 15.4 % (13.2-15.2)
[2019-04-03 08:13] LABS: Platelet Count 87 K/mm3 (140-440)
[2019-04-03 08:43] LABS: BUN/Creatinine Ratio TNR; Blood Urea Nitrogen TNR mg/dL (9-20)
[2019-04-03 08:44] LABS: Calcium TNR mg/dL (8.4-10.2); Hemolysis Index TNR
[2019-04-03 09:03] VITALS: BP 125/82
[2019-04-03 09:23] LABS: Calcium 8.2 mg/dL (8.4-10.2)
[2019-04-03] MEDS ORDERED: PERCOCET 5/325 PO PRN (09:52)
[2019-04-03] MEDS ORDERED: MORPHINE IV PRN (09:52)
--- NOTE | 2019-04-03 10:18 | Progress Note ---
Assessment and Plan 1. ESRD: Continue hemodialysis three times a week, TTS schedule. 2. FEN: Hyperkalemia, s/p HD yesterday. Metabolic acidosis, s/p HD. Renal diet. Monitor. 3. Elevated Troponin. 4. Chronic L sided pleural effusion. 5. A.fib: Rate controlled. 6. HTN. 7. Anemia: Epogen if needed. 8. PAD. Examination: General appearance: well-developed, appears stated age, no distress HEENT: ATNC, ELENI, hearing intact, vision intact Neck: Present: neck supple, trachea midline Respiratory: Clear to Ascultation, L side decreased Breath Sounds Heart: irregular, S1S2, no murmur Gastrointestinal: soft, normoactive bowel sounds, NT Integumentary: no rash, warm and dry Neurologic: no focal deficit, no asterixis, alert and oriented x3 Musculoskeletal: L forearm amputation, no edema Psychiatric: cooperative Hemodialysis access: R IJ tunnel catheter Subjective Date of service: 04/03/19 Interval history: Patient was seen and examined at the bedside. Doing ok. Objective - Vital Signs Vital signs: Vital Signs - 12hr 04/02/19 04/02/19 04/03/19 23:43 23:57 01:29 Temperature 100.6 F H Pulse Rate 93 H 111 H Respiratory 18 18 Rate Blood Pressure 121/81 O2 Sat by Pulse 98 Oximetry 04/03/19 04/03/19 04/03/19 04:42 07:00 07:32 Temperature 99.2 F 98.2 F Pulse Rate 93 H 97 H 84 Respiratory 18 18 Rate Blood Pressure 113/75 125/82 O2 Sat by Pulse 100 100 Oximetry 04/03/19 10:00 Temperature Pulse Rate Respiratory Rate Blood Pressure O2 Sat by Pulse 100 Oximetry - Lab 04/03/19 07:24 04/03/19 07:24 Most recent lab results Calcium 8.2 mg/dL (8.4-10.2) L 04/03/19 07:24 Calcium TNR 04/03/19 07:24 Medications & Allergies - Medications Allergies/Adverse Reactions: Allergies aspirin Allergy (Verified 02/20/19 22:06) Unknown stomach cramps pork derived (porcine) Allergy (Verified 02/20/19 22:06) Rash venom-honey bee [bee venom (honey bee)] Allergy (Verified 09/04/19 22:06) Anaphylaxis Pork/Porcine Containing Products Adverse Reaction (Severe, Verified 02/20/19 22:06) Nausea,VOMITING Home Medications: Home Medications Medication Instructions Recorded Confirmed Last Taken Type Oxycodone HCl [oxyCODONE] 10 mg PO Q6H PRN #20 04/03/19 Unknown Rx Active Medications: Generic Name Dose Route Start Last Admin Trade Name Freq PRN Reason Stop Dose Admin Acetaminophen 650 mg 04/02/19 01:54 Tylenol PO Q4H PRN Pain MILD(1-3)/Fever >100.5/DOUGLAS Diphenhydramine HCl 25 mg 04/02/19 10:30 04/02/19 11:00 Benadryl IV 25 mg KATERYNA PRN Administration Itching Hydralazine HCl 10 mg 04/02/19 10:10 04/02/19 18:03 Apresoline IV 10 mg Q4HR PRN Administration Hypertension Sodium Chloride 100 mls @ 999 mls/hr 04/02/19 10:30 Nacl 0.9% IV KATERYNA PRN Hypotension Metoclopramide HCl 5 mg 04/02/19 15:12 04/02/19 16:36 Reglan IV 5 mg Q6H PRN Administration Nausea And Vomiting Morphine Sulfate 4 mg 04/03/19 09:52 Morphine IV Q4H PRN Pain , Severe (7-10) Ondansetron HCl 4 mg 04/02/19 01:54 04/03/19 01:30 Zofran IV 4 mg Q8H PRN Administration Nausea And Vomiting Oxycodone/Acetaminophen 2 tab 04/03/19 09:52 Percocet 5/325 PO Q6H PRN Pain, Moderate (4-6) Sodium Chloride 10 ml 04/02/19 10:00 04/02/19 22:08 Sodium Chloride Flush Syringe 10 Ml IV 10 ml BID BEAN Administration Sodium Chloride 10 ml 04/02/19 01:54 04/02/19 22:08 Sodium Chloride Flush Syringe 10 Ml IV 10 ml PRN PRN Administration LINE FLUSH
[2019-04-03] MEDS: SODIUM CHLORIDE FLUSH SYRINGE 10 ML IV SCH (12:15)
--- NOTE | 2019-04-03 14:03 | Progress Note ---
Assessment and Plan Assessment and plan: 72-year-old man with a history of end-stage renal disease on dialysis, hypertension, CHF, A. fib, coronary artery disease, PTSD, COPD comes emergency room with complaints of fall, he fell out of his wheelchair complain of back pain. Patient is scheduled for dialysis today Review of systems Constitutional: no weight loss, chills, fever Ears, eyes, nose, mouth and throat: no nasal congestion, no nasal discharge, no sinus pressure, no vision change, no red eye. Neck: No neck pain or rigidity. Cardiovascular: no palpitations Respiratory: no cough, shortness of breath Gastrointestinal: no hematochezia, abdominal pain Genitourinary : no frequency , no hematuria Musculoskeletal: no joint swelling or muscle ache Integumentary: no rash, no pruritis Neurological: no parathesias, no focal weakness Endocrine: no cold or heat intolerance, no polyuria or polydipsia Hematologic/Lymphatic: no easy bruising, no easy bleeding, no gland swelling Allergic/Immunologic: no urticaria, no angioedema. PAST MEDICAL HISTORY: end-stage renal disease on dialysis, hypertension, CHF, A. fib, COPD PAST SURGICAL HISTORY: clot removal in left upper extremity left arm amputation, multiple fingers amputation, AV fistula, neck and back surgery SOCIAL HISTORY: Denies alcohol, drugs, tobacco FAMILY HISTORY: Hypertension Hyperkalemia End-stage renal disease on dialysis lower Back pain A. fib Chronically elevated troponin Coronary artery disease CHF, Chronic, systolic Hypertension PTSD Thrombocytopenia Plan Admit to medicine s/p cocktail for hyperkalemia, follow potassium level renal was consulted for dialysis check cardiac enzymes, echo Continue appropriate outpatient medications DVT prophylaxis, percocet Hospitalist Physical - Constitutional Vitals: Temp Pulse Resp BP Pulse Ox 98.2 F 84 18 125/82 100 04/03/19 07:32 04/03/19 07:32 04/03/19 07:32 04/03/19 07:32 04/03/19 10:00 Results - Labs CBC & Chem 7: 04/03/19 07:24 04/03/19 07:24 Labs: Laboratory Last Values WBC 2.9 K/mm3 (4.5-11.0) L 04/03/19 07:24 RBC 3.47 M/mm3 (3.65-5.03) L 04/03/19 07:24 Hgb 10.8 gm/dl (11.8-15.2) L 04/03/19 07:24 Hct 33.3 % (35.5-45.6) L 04/03/19 07:24 MCV 96 fl (84-94) H 04/03/19 07:24 MCH 31 pg (28-32) 04/03/19 07:24 MCHC 32 % (32-34) 04/03/19 07:24 RDW 15.4 % (13.2-15.2) H 04/03/19 07:24 Plt Count 87 K/mm3 (140-440) L 04/03/19 07:24 Lymph % (Auto) 26.8 % (13.4-35.0) 04/03/19 07:24 Gray % (Auto) 11.9 % (0.0-7.3) H 04/03/19 07:24 Eos % (Auto) 2.3 % (0.0-4.3) 04/03/19 07:24 Baso % (Auto) 1.0 % (0.0-1.8) 04/03/19 07:24 Lymph # 0.8 K/mm3 (1.2-5.4) L 04/03/19 07:24 Gray # 0.3 K/mm3 (0.0-0.8) 04/03/19 07:24 Eos # 0.1 K/mm3 (0.0-0.4) 04/03/19 07:24 Baso # 0.0 K/mm3 (0.0-0.1) 04/03/19 07:24 Seg Neutrophils % 58.0 % (40.0-70.0) 04/03/19 07:24 Seg Neutrophils # 1.7 K/mm3 (1.8-7.7) L 04/03/19 07:24 PT 16.8 Sec. (12.2-14.9) H 04/01/19 23:29 INR 1.40 (0.87-1.13) H 04/01/19 23:29 APTT 34.0 Sec. (24.2-36.6) 04/01/19 23:29 VBG pH 7.228 (7.320-7.420) L 04/01/19 23:29 Sodium 137 mmol/L (137-145) 04/03/19 07:24 Sodium TNR 04/03/19 07:24 Potassium 4.7 mmol/L (3.6-5.0) D 04/03/19 07:24 Potassium TNR 04/03/19 07:24 Chloride 96.2 mmol/L (98-107) L 04/03/19 07:24 Chloride TNR 04/03/19 07:24 Carbon Dioxide 21 mmol/L (22-30) L D 04/03/19 07:24 Carbon Dioxide TNR 04/03/19 07:24 Anion Gap 25 mmol/L 04/03/19 07:24 Anion Gap TNR 04/03/19 07:24 BUN 47 mg/dL (9-20) H 04/03/19 07:24 BUN TNR 04/03/19 07:24 Creatinine 7.2 mg/dL (0.8-1.5) H 04/03/19 07:24 Creatinine TNR 04/03/19 07:24 Estimated GFR 9 ml/min 04/03/19 07:24 Estimated GFR TNR 04/03/19 07:24 BUN/Creatinine Ratio 7 % 04/03/19 07:24 BUN/Creatinine Ratio TNR 04/03/19 07:24 Glucose 75 mg/dL (75-100) 04/03/19 07:24 Glucose TNR 04/03/19 07:24 POC Glucose 93 (70-105) 04/03/19 12:32 Calcium 8.2 mg/dL (8.4-10.2) L 04/03/19 07:24 Calcium TNR 04/03/19 07:24 Total Bilirubin 0.70 mg/dL (0.1-1.2) 04/01/19 23:29 AST 30 units/L (5-40) 04/01/19 23:29 ALT 28 units/L (7-56) 04/01/19 23:29 Alkaline Phosphatase 135 units/L (35-129) H 04/01/19 23:29 Total Creatine Kinase 233 units/L (55-170) H 04/02/19 10:51 CK-MB (CK-2) 12.2 ng/mL (0.0-4.0) H 04/02/19 10:51 CK-MB (CK-2) Rel Index 5.2 (0-4) H 04/02/19 10:51 Troponin T 0.409 ng/mL (0.00-0.029) H* 04/02/19 10:51 Total Protein 7.7 g/dL (6.3-8.2) 04/01/19 23:29 Albumin 3.4 g/dL (3.9-5) L 04/01/19 23:29 Albumin/Globulin Ratio 0.8 % 04/01/19 23:29 Active Medications - Current Medications Current Medications: Generic Name Dose Route Start Last Admin Trade Name Freq PRN Reason Stop Dose Admin Acetaminophen 650 mg 04/02/19 01:54 Tylenol PO Q4H PRN Pain MILD(1-3)/Fever >100.5/DOUGLAS Diphenhydramine HCl 25 mg 04/02/19 10:30 04/02/19 11:00 Benadryl IV 25 mg KATERYNA PRN Administration Itching Hydralazine HCl 10 mg 04/02/19 10:10 04/02/19 18:03 Apresoline IV 10 mg Q4HR PRN Administration Hypertension Sodium Chloride 100 mls @ 999 mls/hr 04/02/19 10:30 Nacl 0.9% IV KATERYNA PRN Hypotension Metoclopramide HCl 5 mg 04/02/19 15:12 04/02/19 16:36 Reglan IV 5 mg Q6H PRN Administration Nausea And Vomiting Morphine Sulfate 4 mg 04/03/19 09:52 04/03/19 12:14 Morphine IV 4 mg Q4H PRN Administration Pain , Severe (7-10) Ondansetron HCl 4 mg 04/02/19 01:54 04/03/19 01:30 Zofran IV 4 mg Q8H PRN Administration Nausea And Vomiting Oxycodone/Acetaminophen 2 tab 04/03/19 09:52 Percocet 5/325 PO Q6H PRN Pain, Moderate (4-6) Sodium Chloride 10 ml 04/02/19 10:00 04/03/19 12:15 Sodium Chloride Flush Syringe 10 Ml IV 10 ml BID BEAN Administration Sodium Chloride 10 ml 04/02/19 01:54 04/02/19 22:08 Sodium Chloride Flush Syringe 10 Ml IV 10 ml PRN PRN Administration LINE FLUSH Nutrition/Malnutrition Assess - Dietary Evaluation Nutrition/Malnutrition Findings: Nutrition Notes Start: 04/03/19 10:0 0 Freq: Status: Active Protocol: Document 04/03/19 10:00 CC (Rec: 04/03/19 11:22 CC [id number]) Co-Sign 04/03/19 10:00 LP Nutrition Notes Need for Assessment generated from: airport 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 specialist Initial or Follow up Assessment Current Diagnosis CKD (stage V CKD),COPD, Diabetes,Heart Failure Other Pertinent Diagnosis on HD Current Diet cardiac, renal diet Labs/Tests BUN 45, Creat 7.2, Glu 74 Pertinent Medications reviewed Height 5 ft 9 in Weight 50.6 kg Usual Body Weight 81.8 kg [place] Body Weight (kg) 72.72 BMI 16.5 Intake Prior to Admission Poor Weight change and time frame 38%/ 1 year (significant) Weight Status Underweight Subjective/Other Information Pt stated he has not liked the food he has been given due to the restrictions and would like to be taken off the renal diet. Pt stated his appetite has been poor for a year d/t circumstances around cooking. Pt stated his had a stroke so she does not cook often and when he cooks it is difficult for him to do so d/t limited mobility. Pt stated his usual body wt is 180lbs. Pt has had a significant wt loss of 38%, 70lbs in the past year. Pt stated he has been vomitting since arrival. Burn Absent Trauma Absent GI Symptoms Nausea,Vomiting Food Allergy Yes Current % PO Good (75-100%) Minimum of two criteria Yes Interpretation of Weight Loss (severe) > 20% in 1 year Body Fat Depletion Mild depletion (non-severe) Muscle Mass Moderate Depletion (severe) #1 Nutrition Diagnosis Malnutrition Etiology poor appetite and difficulty cooking As Evidenced by Signs and Symptoms wt loss >20% in a year, mild body fat depletion and moderate muscle wasting Is patient on ventilator? No Is Patient Ambulatory and/or Out of Bed No REE-([facility]-confined to bed) 1507.860 Kcal/Kg value to use for calculation 40 Approximate Energy Requirements Using 2023 kcal/Kg Calculation Used for Recommendations Kcal/kg Additional Notes Pro: 61-76g/day (1.2-1.5g/kg) Fluid: per MD Nutrition Intervention Change Diet Order: Cardiac diet, low potassium Add Supplement/Snack (indicate name/kcal Ensure clear daily, Apple /protein ) Provides kCal: 240 Provides Protein (gm) 8 Goal #1 Meet at least 80% of calorie and protein needs through po and ONS Anticipated Discharge Needs: cardiac, renal diet, ONS Follow-Up By: 04/05/19 Additional Comments Follow for intakes
--- NOTE | 2019-04-03 14:06 | Discharge Summary ---
Providers - Providers Date of Admission: 04/02/19 02:40 Attending physician: SHERRY MOBLEY MD 04/02/19 01:20 Consult to Physician [CONS] Urgent Comment: Consulting Provider: LYRIC DIAMOND Physician Instructions: Reason For Exam: hyperkalemia Hospitalization Condition: Stable Hospital course: 72-year-old man with a history of end-stage renal disease on dialysis, hypertension, CHF, A. fib, coronary artery disease, PTSD, COPD comes emergency room with complaints of fall, he fell out of his wheelchair complain of back pain. Patient is scheduled for dialysis today Review of systems Constitutional: no weight loss, chills, fever Ears, eyes, nose, mouth and throat: no nasal congestion, no nasal discharge, no sinus pressure, no vision change, no red eye. Neck: No neck pain or rigidity. Cardiovascular: no palpitations Respiratory: no cough, shortness of breath Gastrointestinal: no hematochezia, abdominal pain Genitourinary : no frequency , no hematuria Musculoskeletal: no joint swelling or muscle ache Integumentary: no rash, no pruritis Neurological: no parathesias, no focal weakness Endocrine: no cold or heat intolerance, no polyuria or polydipsia Hematologic/Lymphatic: no easy bruising, no easy bleeding, no gland swelling Allergic/Immunologic: no urticaria, no angioedema. PAST MEDICAL HISTORY: end-stage renal disease on dialysis, hypertension, CHF, A. fib, COPD PAST SURGICAL HISTORY: clot removal in left upper extremity left arm amputation, multiple fingers amputation, AV fistula, neck and back surgery SOCIAL HISTORY: Denies alcohol, drugs, tobacco FAMILY HISTORY: Hypertension Hyperkalemia End-stage renal disease on dialysis lower Back pain A. fib Chronically elevated troponin Coronary artery disease CHF, Chronic, systolic Hypertension PTSD Thrombocytopenia Plan Admit to medicine s/p cocktail for hyperkalemia, follow potassium level renal was consulted for dialysis check cardiac enzymes, echo Continue appropriate outpatient medications DVT prophylaxis, percocet Disposition: TO HOME OR SELFCARE Time spent for discharge: 33 mins Core Measure Documentation - Palliative Care Palliative Care/ Comfort Measures: Not Applicable - Core Measures Any of the following diagnoses?: none Exam - Constitutional Vitals: Temp Pulse Resp BP Pulse Ox 98.2 F 84 18 125/82 100 04/03/19 07:32 04/03/19 07:32 04/03/19 07:32 04/03/19 07:32 04/03/19 10:00 General appearance: Present: no acute distress, well-nourished - EENT Eyes: Present: PERRL ENT: hearing intact, clear oral mucosa - Neck Neck: Present: supple, normal ROM - Respiratory Respiratory effort: normal Respiratory: bilateral: CTA - Cardiovascular Heart Sounds: Present: S1 & S2. Absent: rub, click - Extremities Extremities: pulses symmetrical, No edema Peripheral Pulses: within normal limits - Abdominal General gastrointestinal: Present: soft, non-tender, non-distended, normal bowel sounds Male genitourinary: Present: normal - Integumentary Integumentary: Present: clear, warm, dry - Musculoskeletal Musculoskeletal: gait normal, strength equal bilaterally - Psychiatric Psychiatric: appropriate mood/affect, intact judgment & insight - Neurologic Neurologic: CNII-XII intact, moves all extremities Plan Follow up with: HUGO CAREY [Other] - 7 Days Prescriptions: Oxycodone HCl [oxyCODONE] 10 mg PO Q6H PRN #20 PRN Reason: Pain
[2019-04-03] MEDS ORDERED: IMODIUM PO PRN (14:28)
== END 2019-04-03 20:30 | disposition home or self-care (01) | DRG 640 ==
LOC: ED 21:11 → 4A 04-02 02:40
PROVIDERS: ADMIT Internal Medicine; ATTEND Internal Medicine
PROC: 5A1D70Z Performance of Urinary Filtration, Intermittent, Less than 6 Hours Per Day (ICD-10-PCS; principal; 2019-04-02)
DX: E87.5 Hyperkalemia (principal); N18.6 End stage renal disease; M54.5 Low back pain; I48.20 Chronic atrial fibrillation, unspecified; I25.10 Atherosclerotic heart disease of native coronary artery without angina pectoris; I50.22 Chronic systolic (congestive) heart failure; F43.10 Post-traumatic stress disorder, unspecified; D69.6 Thrombocytopenia, unspecified; E87.2 Acidosis; I13.2 Hypertensive heart and chronic kidney disease with heart failure and with stage 5 chronic kidney disease, or end stage renal disease; W05.0XXA Fall from non-moving wheelchair, initial encounter; J44.9 Chronic obstructive pulmonary disease, unspecified; Z99.2 Dependence on renal dialysis; Z82.49 Family history of ischemic heart disease and other diseases of the circulatory system; Z89.029 Acquired absence of unspecified finger(s); Z89.212 Acquired absence of left upper limb below elbow; Z91.030 Bee allergy status; Z88.8 Allergy status to other drugs, medicaments and biological substances; Z91.018 Allergy to other foods; Z79.899 Other long term (current) drug therapy; Y93.89 Activity, other specified; Y92.098 Other place in other non-institutional residence as the place of occurrence of the external cause; Y99.8 Other external cause status; Z86.718 Personal history of other venous thrombosis and embolism; Z90.49 Acquired absence of other specified parts of digestive tract
CPT/HCPCS: 36415; 71045; 72125; 72128; 72131; 72170; 80048; 80053; 82550; 82553; 82805; 82962; 84484; 85025; 85610; 85730; 93005; 93010; 94760; G0378; J0360; J0610; J1200; J1815; J2270; J2405; J2765; J7030

== ENCOUNTER 2019-05-10 18:38 | Inpatient (IN) | payer MEDICAID ==
--- NOTE | 2019-05-10 20:18 | Emergency Department Report ---
ED General Adult HPI - General Chief complaint: Medical Clearance Stated complaint: NEED DIALYSIS Time Seen by Provider: 05/10/19 20:07 Source: patient, EMS Mode of arrival: Stretcher Limitations: No Limitations - History of Present Illness Initial comments: Patient presents for encounter for HD. Reports he has HD TTS via right chest pcath. Reports last HD was approximately last . Reports he missed because he was not feeling well all week. Reports he called dialysis today and they reported there was no space to fit him in for a session today. Reports he feels like the fluid is building up similar to when he has needed HD in the past. -: Gradual, week(s) (1) Severity scale (0 -10): 0 Consistency: other (gradually worsening dyspnea) Improves with: other (HD) Worsens with: none Associated Symptoms: shortness of breath - Related Data Previous Rx's Medication Instructions Recorded Last Taken Type Oxycodone HCl [oxyCODONE] 10 mg PO Q6H PRN #20 04/03/19 Unknown Rx Allergies Allergy/AdvReac Type Severity Reaction Status Date / Time aspirin Allergy Unknown Verified 02/20/19 22:06 pork derived (porcine) Allergy Rash Verified 02/20/19 22:06 venom-honey bee Allergy Anaphylaxis Verified 02/20/19 22:06 [bee venom (honey bee)] Pork/Porcine Containing AdvReac Severe Nausea,VOMI Verified 02/20/19 22:06 Products TING ED Review of Systems ROS: Stated complaint: NEED DIALYSIS Other details as noted in HPI Other: GENERAL: No weight change, fatigue, fever, chills, or night sweats SKIN: No changes in skin or hair, no itching, no rashes, no jaundice HEAD: No trauma EYES: No blurriness, tearing, itching, acute visual loss, conjunctival discoloration, or scleral icterus EARS: No hearing loss, tinnitus, vertigo, or earache NOSE: No rhinorrhea, stuffiness, sneezing, itching, or epistaxis MOUTH: No bleeding gums, hoarseness, sore throat, or swelling CARDIAC: No new murmur, chest pain, palpitations, dyspnea on exertion, orthopnea, PND, or edema RESPIRATORY: Shortness of breath. Denies wheeze, cough, sputum production, hemoptysis GI: No nausea, vomiting, dysphagia, diarrhea, constipation, hematemesis, melen a, hematochezia, or abdominal pain URINARY: No frequency, urgency, polyuria, dysuria, hematuria, or incontinence MUSCULOSKELETAL: No muscle weakness, joint stiffness, decrease in range of motion, redness, swelling NEUROLOGIC: No headache, syncope, loss of sensation, numbness, tingling, tremors, weakness, paralysis, seizures HEMATOLOGIC: No anemia, easy bruising, bleeding, petechiae, or purpura ENDOCRINE: No hot or cold intolerance, sweating, polyuria, polydipsia or, polyphagia no thyroid problems PSYCHIATRIC: No change in mood, no anxiety, no depression ED Past Medical Hx - Past Medical History Hx Hypertension: Yes Hx Heart Attack/AMI: No Hx Congestive Heart Failure: Yes Hx Diabetes: Yes Hx Deep Vein Thrombosis: Yes Hx Pulmonary Embolism: No Hx Liver Disease: Yes Hx Renal Disease: No Hx Arthritis: Yes (generalized) Hx Seizures: No Hx Kidney Stones: No Hx Psychiatric Treatment: Yes (PTSD) Hx Asthma: No Hx COPD: Yes Hx Tuberculosis: No Hx HIV: No Additional medical history: 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 abd surgery after war related ingury partial "stomach removal'. Left upper extremity amputation below elbow - Social History Smoking Status: Former Smoker - Medications Home Medications: Home Medications Medication Instructions Recorded Confirmed Last Taken Type Oxycodone HCl [oxyCODONE] 10 mg PO Q6H PRN #20 04/03/19 Unknown Rx ED Physical Exam - General Limitations: No Limitations - Other Other exam information: GENERAL: Patient in no acute distress HEAD: Normocephalic, atraumatic EYES: PERRLA, EOM intact, no scleral icterus, no conjunctival hemorrhage, visual [place] and acuity wnl NOSE: No tenderness, discharge, sinus tenderness MOUTH: No erythema, bleeding, exudate HEART: Right chest pcath without surrounding erythema, warmth, discharge, or tenderness. Regular rate and rhythm, no murmur, S1-S2 are auscultated, no edema, pulses are symmetric LUNGS: No respiratory distress. Bilateral breath sounds, No tachypnea, No retractions, No wheezing, rales, rhonchi ABDOMEN: Normal bowel sounds, abdomen soft, no tenderness, no rebound, no guarding, no distention, no masses, no CVA tenderness MUSCULOSKELETAL: Normal joint range of motion, no redness, no swelling, no tenderness NEUROLOGIC: GCS 15, Alert and Oriented x3, Cranial nerves intact, normal sensa tion, normal strength, no cerebellar deficit SKIN: Skin is warm and dry, no wounds, no rashes ED Course Vital Signs 05/10/19 19:57 Temperature 99.1 F Pulse Rate 105 H Respiratory 22 Rate Blood Pressure 120/90 [Right] O2 Sat by Pulse 98 Oximetry ED Medical Decision Making - Lab Data Result diagrams: 05/10/19 20:25 Laboratory Results - last 24 hr 05/10/19 20:25 Sodium 137 Potassium 5.4 H Chloride 101.3 Carbon Dioxide 17 L Anion Gap 24 BUN 59 H Creatinine 10.1 H Estimated GFR 6 BUN/Creatinine Ratio 6 Glucose 118 H Calcium 8.3 L - Medical Decision Making Patient comfortable. Plan admit for further evaluation. Hospitalist updated and accepts admission. Critical care attestation.: If time is entered above; I have spent that time in minutes in the direct care of this critically ill patient, excluding procedure time. ED Disposition Clinical Impression: Encounter for hemodialysis, Hyperkalemia Fluid overload Qualifiers: Hypervolemia type: unspecified Qualified Code(s): E87.70 - Fluid overload, unspecified Disposition: -09 OP ADMIT IP TO THIS HOSP Is pt being admited?: Yes Condition: Stable
[2019-05-10 20:48] LABS: Calcium 8.3 mg/dL (8.4-10.2)
[2019-05-10] MEDS ORDERED: CALCIUM GLUCONATE 1,000 MG in SODIUM CHLORIDE 0.9% 100 ML IV ONE (21:14)
[2019-05-10] MEDS ORDERED: DEXTROSE 50% IN WATER (25GM) 50 ML SYRINGE IV ONE (21:27)
[2019-05-10] MEDS ORDERED: INSULIN REGULAR, HUMAN 100 UNITS/1 ML SUB-Q ONE (21:27)
--- NOTE | 2019-05-10 22:22 | History and Physical Report ---
History of Present Illness Date of examination: 05/10/19 History of present illness: 72-year-old man with a history of end-stage renal disease on dialysis, hypertension, CHF, A. fib, coronary artery disease, PTSD, COPD comes emergency room with complaints of shortness sarah breath, he missed dialysis for 1 week. Also complain of chest pain. Pain is in the left chest which he describes as sharp pain, constant, intensity 5/10, no radiation , cannot identify exacerbating factors, relieved with pain medication in the emergency room. +nausea no vomiting, diaphoresis palpitation. Patient had a stress test in January which showed no ischemia Review of systems Constitutional: no weight loss, chills, fever Ears, eyes, nose, mouth and throat: no nasal congestion, no nasal discharge, no sinus pressure, no vision change, no red eye. Neck: No neck pain or rigidity. Cardiovascular: no palpitations Respiratory: no cough, shortness of breath Gastrointestinal: no hematochezia, abdominal pain Genitourinary : no frequency , no hematuria Musculoskeletal: no joint swelling or muscle ache Integumentary: no rash, no pruritis Neurological: no parathesias, no focal weakness Endocrine: no cold or heat intolerance, no polyuria or polydipsia Hematologic/Lymphatic: no easy bruising, no easy bleeding, no gland swelling Allergic/Immunologic: no urticaria, no angioedema. PAST MEDICAL HISTORY: end-stage renal disease on dialysis, hypertension, CHF, A. fib, COPD PAST SURGICAL HISTORY: clot removal in left upper extremity left arm amputation, multiple fingers amputation, AV fistula, neck and back surgery SOCIAL HISTORY: Denies alcohol, drugs, tobacco FAMILY HISTORY: Hypertension Medications and Allergies Allergies Allergy/AdvReac Type Severity Reaction Status Date / Time aspirin Allergy Unknown Verified 02/20/19 22:06 pork derived (porcine) Allergy Rash Verified 02/20/19 22:06 venom-honey bee Allergy Anaphylaxis Verified 02/20/19 22:06 [bee venom (honey bee)] Pork/Porcine Containing AdvReac Severe Nausea,VOMI Verified 02/20/19 22:06 Products TING Home Medications Medication Instructions Recorded Confirmed Last Taken Type Oxycodone HCl [oxyCODONE] 10 mg PO Q6H PRN #20 04/03/19 Unknown Rx AtorvaSTATin [Lipitor] 40 mg PO QHS 05/10/19 05/10/19 05/09/19 History Clonidine HCl [Catapres] 0.3 mg PO BID 05/10/19 05/10/19 05/09/19 History amLODIPine [Norvasc] 20 mg PO DAILY 05/10/19 05/10/19 05/09/19 History Exam - Physical Exam Narrative exam: General Apperance: The patient lying in bed, breathing comfortable HEENT: Normocephalic, atraumatic. Pupils equally round and reactive to light, EOMI, Left subconjunctival hemorrhage no sclericterus or JVD or thyromegaly or nodule. , no carotid bruit, mucous membranes moist, no exudate or erythema Heart: S1-S2, regular is rhythm Lungs: Decreased breath, wheezing sounds bilaterally, breathing comfortable Abdomen: Positive bowel sounds, soft, nontender, nondistended, no organomegaly Extremities: amputation of the left forearm, No edema cyanosis clubbing Skin: no rash, nodule, warm and dry Neuro: cranial nerves 2-12 intact, speech is fluent, motor/sensory intact - Constitutional Vitals: Temp Pulse Resp BP Pulse Ox 99.1 F 105 H 22 120/90 98 05/10/19 19:57 05/10/19 19:57 05/10/19 19:57 05/10/19 19:57 05/10/19 19:57 Results - Labs CBC & Chem 7: 05/10/19 20:25 Labs: Abnormal lab results 05/10/19 Range/Units 20:25 Potassium 5.4 H (3.6-5.0) mmol/L Carbon Dioxide 17 L (22-30) mmol/L BUN 59 H (9-20) mg/dL Creatinine 10.1 H (0.8-1.5) mg/dL Glucose 118 H (75-100) mg/dL Calcium 8.3 L (8.4-10.2) mg/dL - Imaging and Cardiology EKG: report reviewed Chest x-ray: report reviewed Assessment and Plan Assessment End-stage renal disease on dialysis Hyperkalemia chest pain A. fib Coronary artery disease CHF, Chronic, systolic Hypertension PTSD Thrombocytopenia Plan Admit to medicine s/p cocktail for hyperkalemia, follow potassium level renal was consulted for dialysis check cardiac enzymes, consult cardiology Check chest x-ray, CBC Continue appropriate outpatient medications DVT prophylaxis, percocet
[2019-05-10] MEDS ORDERED: ONDANSETRON 4 MG/2 ML INJ IV PRN (23:23)
[2019-05-10] MEDS ORDERED: ACETAMINOPHEN 325 MG TAB PO PRN (23:23)
[2019-05-10] MEDS: oxyCODONE /ACETAMINOPHEN 5-325MG TAB PO PRN (23:44)
[2019-05-11 00:11] LABS: Creatine Kinase MB 3.9 ng/mL (0.0-4.0)
--- NOTE | 2019-05-11 01:08 | XRay Report ---
CHEST 1 VIEW, 05/11/2019 12:26 AM CLINICAL INFORMATION/INDICATION: Shortness of breath COMPARISON: Chest radiograph, 04/01/2019 FINDINGS: SUPPORT DEVICES: Dual lumen central line projects in stable position HEART: There is stable enlargement of the cardiac silhouette LUNGS/PLEURA: Moderate bilateral pulmonary edema and small to moderate bilateral pleural effusions ar e again noted, similar to the previous study. ADDITIONAL FINDINGS: No additional acute findings. IMPRESSION: 1. Cardiac enlargement with moderate interstitial edema and bilateral pleural effusions Signer Name: Maria D Dorsey MD Signed: 05/11/2019 1:04 AM Workstation Name: [id number]
[2019-05-11 02:10] LABS: Basophils # (Auto) 0.1 K/mm3 (0.0-0.1); Basophils % (Auto) 1.4 % (0.0-1.8); Eosinophils # (Auto) 0.2 K/mm3 (0.0-0.4); Eosinophils % (Auto) 4.5 % (0.0-4.3); Hematocrit 28.2 % (35.5-45.6); Hemoglobin 9.2 gm/dl (11.8-15.2); Lymphocytes % (Auto) 18.6 % (13.4-35.0); Mean Corpuscular HGB Conc 33 % (32-34); Mean Corpuscular Volume 95 fl (84-94); Monocytes # (Auto) 0.7 K/mm3 (0.0-0.8); Monocytes % (Auto) 14.3 % (0.0-7.3); Platelet Count 131 K/mm3 (140-440); Red Blood Count 2.98 M/mm3 (3.65-5.03); Red Cell Distribution Width 15.3 % (13.2-15.2)
[2019-05-11 02:25] LABS: Creatine Kinase MB 3.6 ng/mL (0.0-4.0)
[2019-05-11 05:29] LABS: Chol/HDL Ratio 2.78 %
[2019-05-11 06:13] LABS: Basophils # (Auto) 0.2 K/mm3 (0.0-0.1); Basophils % (Auto) 2.6 % (0.0-1.8); Eosinophils # (Auto) 0.3 K/mm3 (0.0-0.4); Eosinophils % (Auto) 4.3 % (0.0-4.3); Hematocrit 30.7 % (35.5-45.6); Hemoglobin 9.6 gm/dl (11.8-15.2); Lymphocytes # (Auto) 1.1 K/mm3 (1.2-5.4); Lymphocytes % (Auto) 18.3 % (13.4-35.0); Mean Corpuscular HGB Conc 31 % (32-34); Mean Corpuscular Volume 98 fl (84-94); Monocytes # (Auto) 0.9 K/mm3 (0.0-0.8); Monocytes % (Auto) 14.9 % (0.0-7.3); Red Blood Count 3.14 M/mm3 (3.65-5.03); Red Cell Distribution Width 15.6 % (13.2-15.2)
[2019-05-11 06:27] LABS: Creatine Kinase MB 3.7 ng/mL (0.0-4.0)
[2019-05-11 06:33] LABS: Calcium 8.2 mg/dL (8.4-10.2)
[2019-05-11 07:11] LABS: Platelet Count 131 K/mm3 (140-440)
[2019-05-11] MEDS ORDERED: DEXTROSE 50% IN WATER (25GM) 50 ML SYRINGE IV ONE (08:48)
[2019-05-11] MEDS ORDERED: INSULIN REGULAR, HUMAN 100 UNITS/1 ML SUB-Q ONE (08:48)
--- NOTE | 2019-05-11 09:10 | Consultation ---
History of Present Illness - Reason for Consult Consult date: 05/11/19 end stage renal disease, hyperkalemia - History of Present Illness The patient is a 72 YO male who is known to our service with history significant for DM type 2, HTN, Chronic A.fib, CAD, CHF, PTSD, PAD s/p left forearm ampu tation, chronic L pleural effusion (Transudate) s/p multiple thoracentesis and ESRD on hemodialysis (TTS) who presented to [facility] ED with complaints of shortness of breath and L sided chest pain. He describes the pain as sharp, constant, intensity 5/10, no radiation and relieved with pain medication in the emergency room. Patient had a stress test in January which showed no ischemia. He denies fever, chills, dizzines, nausea, vomiting, abd pain, leg swelling or weakness. He was discharged from [facility] about a week ago. He didn't go to the outpatient dialysis center as he was feeling good. Labs were significant for K 5.8 and bicarb 17. Chest x-ray in the ER showed bilateral pleural effusion and moderate interstitial pulmonary edema. Pt was admitted for further management. Patient has been coming to various hospitals with multiple complaints. Nephrology was consulted for further evaluation. Past History Past Medical History: other (See HPI.) Medications and Allergies Allergies Allergy/AdvReac Type Severity Reaction Status Date / Time aspirin Allergy Unknown Verified 02/20/19 22:06 pork derived (porcine) Allergy Rash Verified 02/20/19 22:06 venom-honey bee Allergy Anaphylaxis Verified 02/20/19 22:06 [bee venom (honey bee)] Pork/Porcine Containing AdvReac Severe Nausea,VOMI Verified 02/20/19 22:06 Products TING Home Medications Medication Instructions Recorded Confirmed Last Taken Type Oxycodone HCl [oxyCODONE] 10 mg PO Q6H PRN #20 04/03/19 Unknown Rx AtorvaSTATin [Lipitor] 40 mg PO QHS 05/10/19 05/10/19 05/09/19 History Clonidine HCl [Catapres] 0.3 mg PO BID 05/10/19 05/10/19 05/09/19 History amLODIPine [Norvasc] 20 mg PO DAILY 05/10/19 05/10/19 05/09/19 History Active Meds: Active Medications Acetaminophen (Tylenol) 650 mg PO Q4H PRN PRN Reason: Pain MILD(1-3)/Fever >100.5/DOUGLAS Amlodipine Besylate (Amlodipine) 20 mg PO DAILY [facility] Atorvastatin Calcium (Lipitor) 40 mg PO QHS [facility] Clonidine HCl (Catapres) 0.3 mg PO BID [facility] Ondansetron HCl (Zofran) 4 mg IV Q8H PRN PRN Reason: Nausea And Vomiting Oxycodone/Acetaminophen (Percocet 5/325) 1 tab PO Q6H PRN PRN Reason: Pain, Moderate (4-6) Last Admin: 05/10/19 23:44 Dose: 1 tab Documented by: Sodium Chloride (Sodium Chloride Flush Syringe 10 Ml) 10 ml IV BID BENA Sodium Chloride (Sodium Chloride Flush Syringe 10 Ml) 10 ml IV PRN PRN PRN Reason: LINE FLUSH Review of Systems Constitutional: no weight loss, no weight gain, no fever, no chills, no anorexia, no fatigue, no weakness, no poor appetite Cardiovascular: chest pain, orthopnea, shortness of breath, high blood pressure, no edema, no syncope, no lightheadedness Respiratory: no cough, no cough with sputum, no hemoptysis, no shortness of breath, no dyspnea on exertion Gastrointestinal: no abdominal pain, no nausea, no vomiting, no diarrhea, no melena, no hematochezia, no loss of appetite Genitourinary Male: no dysuria, no hematuria Rectal: no bleeding Musculoskeletal: no morning stiffness, no muscle weakness, no muscle cramps Integumentary: no rash, no redness, no sores, no wounds, no jaundice Neurological: no seizures, no syncope, no convulsions, no aphasia, no change in speech, no change in mentation, no confusion, no memory loss Exam - Vital Signs Vital signs: Vital Signs Temp Pulse Resp BP Pulse Ox 99.1 F 105 H 22 120/90 98 05/10/19 19:57 05/10/19 19:57 05/10/19 19:57 05/10/19 19:57 05/10/19 19:57 - General Appearance General appearance: well-developed, appears stated age, other (no distress, R IJ tunnel catheter) EENT: ATNC, PERRL, hearing intact, vision intact Neck: Present: neck supple, trachea midline Respiratory: Decreased Breath Sounds Heart: irregularly irregular, S1S2, no murmurs Gastrointestinal: Absent: tenderness, distended Integumentary: no rash, warm and dry Neurologic: no focal deficit, no asterixis, alert and oriented x3 Musculoskeletal: Present: other (R arm AVF, L below elbow amputation) Results - Lab Results 05/11/19 05:51 05/11/19 05:51 Most recent lab results Calcium 8.2 mg/dL (8.4-10.2) L 05/11/19 05:51 Assessment and Plan 1. ESRD: Patient was admitted after he missed 2 sessions of hemodialysis. Continue hemodialysis three times a week, TTS schedule. HD today. 2. FEN: Hyperkalemia, HD today. Metabolic acidosis, HD today. Volume overload, UF with HD. Renal diet. Monitor. 3. Chest pain and Elevated Troponin: Cardiology consulted. 4. Chronic pleural effusion. 5. A.fib: Rate controlled. 6. HTN. 7. Anemia: Epogen with HD. 8. PAD.
[2019-05-11] MEDS ORDERED: SODIUM CHLORIDE 0.9% 100 ML IV PRN ×2 (09:12→09:54)
[2019-05-11] MEDS: cloNIDine 0.1 MG TAB PO SCH ×2 (09:19→21:58)
--- NOTE | 2019-05-11 09:46 | Consultation ---
History of Present Illness Consult date: 05/11/19 Consult reason: chest pain History of present illness: 72-year-old man with a history of end-stage renal disease on dialysis, hyperte nsion, CHF, A. fib, coronary artery disease, PTSD, COPD comes emergency room with complaints of shortness of breath, he missed dialysis for 1 week. The patient also complains of chest pain. Pain is left sided, sharp pain, constant, intensity 5/10, no radiation. There are no exacerbating factors. The pain is relieved with pain medication in the emergency room. The patient also has associated diaphoresis, and palpitation. Patient had a stress test in January which showed no ischemia PAST MEDICAL HISTORY: end-stage renal disease on dialysis, hypertension, CHF, A. fib, COPD PAST SURGICAL HISTORY: clot removal in left upper extremity left arm amputation, multiple fingers amputation, AV fistula, neck and back surgery SOCIAL HISTORY: Denies alcohol, drugs, tobacco FAMILY HISTORY: Hypertension Past History Past Medical History: COPD, ESRD, other (polycythemia vera) Past Surgical History: Other (declot) Social history: denies: smoking, alcohol abuse, prescription drug abuse Medications and Allergies Allergies Allergy/AdvReac Type Severity Reaction Status Date / Time aspirin Allergy Unknown Verified 02/20/19 22:06 pork derived (porcine) Allergy Rash Verified 02/20/19 22:06 venom-honey bee Allergy Anaphylaxis Verified 02/20/19 22:06 [bee venom (honey bee)] Pork/Porcine Containing AdvReac Severe Nausea,VOMI Verified 02/20/19 22:06 Products TING Home Medications Medication Instructions Recorded Confirmed Last Taken Type Oxycodone HCl [oxyCODONE] 10 mg PO Q6H PRN #20 04/03/19 Unknown Rx AtorvaSTATin [Lipitor] 40 mg PO QHS 05/10/19 05/10/19 05/09/19 History Clonidine HCl [Catapres] 0.3 mg PO BID 05/10/19 05/10/19 05/09/19 History amLODIPine [Norvasc] 20 mg PO DAILY 05/10/19 05/10/19 05/09/19 History Active Meds: Active Medications Acetaminophen (Tylenol) 650 mg PO Q4H PRN PRN Reason: Pain MILD(1-3)/Fever >100.5/DOUGLAS Amlodipine Besylate (Amlodipine) 10 mg PO DAILY [facility] Atorvastatin Calcium (Lipitor) 40 mg PO QHS [facility] Clonidine HCl (Catapres) 0.3 mg PO BID [facility] Last Admin: 05/11/19 09:19 Dose: Not Given Documented by: Epoetin Prashant (Procrit) 10,000 unit SUB-Q KATERYNA PRN PRN Reason: hemodialysis Sodium Chloride (Nacl 0.9%) 100 mls @ 999 mls/hr IV KATERYNA PRN PRN Reason: Hypotension Ondansetron HCl (Zofran) 4 mg IV Q8H PRN PRN Reason: Nausea And Vomiting Oxycodone/Acetaminophen (Percocet 5/325) 1 tab PO Q6H PRN PRN Reason: Pain, Moderate (4-6) Last Admin: 05/10/19 23:44 Dose: 1 tab Documented by: Sodium Chloride (Sodium Chloride Flush Syringe 10 Ml) 10 ml IV BID [facility] Last Admin: 05/11/19 09:24 Dose: 10 ml Documented by: Sodium Chloride (Sodium Chloride Flush Syringe 10 Ml) 10 ml IV PRN PRN PRN Reason: LINE FLUSH Review of Systems All systems: negative (positives mentioned in HPI) Physical Examination Vital Signs Temp Pulse Resp BP Pulse Ox 99.1 F 105 H 22 120/90 98 05/10/19 19:57 05/10/19 19:57 05/10/19 19:57 05/10/19 19:57 05/10/19 19:57 General appearance: no acute distress HEENT: Positive: PERRL, EOMI Neck: Positive: neck supple Cardiac: Positive: Reg Rate and Rhythm, S1/S2 Lungs: Positive: Normal Exam Neuro: Positive: Grossly Intact Abdomen: Positive: Unremarkable, Soft Extremities: Present: normal Results 05/11/19 05:51 05/11/19 05:51 Cardiac Enzymes 05/10/19 05/11/19 05/11/19 Range/Units 23:30 01:48 05:51 CK-MB (CK-2) 3.9 3.6 3.7 (0.0-4.0) ng/mL Lipids 05/10/19 Range/Units 23:30 Triglycerides 91 (2-149) mg/dL Cholesterol 64 (50-199) mg/dL HDL Cholesterol 23 L (40-59) mg/dL Cholesterol/HDL Ratio 2.78 % CBC 05/11/19 05/11/19 Range/Units 01:48 05:51 WBC 5.2 6.1 (4.5-11.0) K/mm3 RBC 2.98 L 3.14 L (3.65-5.03) M/mm3 Hgb 9.2 L 9.6 L (11.8-15.2) gm/dl Hct 28.2 L 30.7 L (35.5-45.6) % Plt Count 131 L 131 L (140-440) K/mm3 Lymph # 1.0 L 1.1 L (1.2-5.4) K/mm3 [place] # 0.7 0.9 H (0.0-0.8) K/mm3 Eos # 0.2 0.3 (0.0-0.4) K/mm3 Baso # 0.1 0.2 H (0.0-0.1) K/mm3 Comprehensive Metabolic Panel 05/10/19 05/11/19 Range/Units 20:25 05:51 Sodium 137 135 L (137-145) mmol/L Potassium 5.4 H 5.8 H (3.6-5.0) mmol/L Chloride 101.3 100.0 (98-107) mmol/L Carbon Dioxide 17 L 17 L (22-30) mmol/L BUN 59 H 61 H (9-20) mg/dL Creatinine 10.1 H 9.7 H (0.8-1.5) mg/dL Glucose 118 H 130 H (75-100) mg/dL Calcium 8.3 L 8.2 L (8.4-10.2) mg/dL Assessment and Plan Assessment/Plan: End-stage renal disease on dialysis - management per nephrology Hyperkalemia - management per nephrology chest pain - atypical symptoms. troponin is not in the expected pattern for ACS. Reportedly patient had a previous stress test in january at [facility]. Will try to obtain the report prior to initiation of further workup A. fib - rate control strategy. Not currently on anticoagulation. Coronary artery disease - on high intensity statin. start ASA. Reportedly patient had a previous stress test in january. Will try to obtain the report. CHF, Chronic, systolic - unknown EF as no prior echo at this facility. check echo. volume removal via dialysis. Hypertension - currently at goal. continue current medical therapy PTSD Thrombocytopenia - management per primary
[2019-05-11] MEDS ORDERED: NON-FORMULARY EACH (Clonidine Hcl [Catapres] 0.3 MG) PO SCH (10:00)
[2019-05-11] MEDS ORDERED: amLODIPine 10 MG TAB PO SCH (10:00)
[2019-05-11] MEDS: amLODIPine 10 MG TAB PO SCH (10:19)
[2019-05-11] MEDS: oxyCODONE /ACETAMINOPHEN 5-325MG TAB PO PRN (10:20)
[2019-05-11 11:31] LABS: Hepatitis B Surface Antigen Non-Reactive (Negative); Hepatitis C Virus Antibody Reactive (NonReactive)
--- NOTE | 2019-05-11 12:50 | Progress Note ---
Assessment and Plan End-stage renal disease on dialysis - renal was consulted for dialysis Noncompliance, counseled Hyperkalemia, s/p cocktail for hyperkalemia, follow potassium level Chest pain, atypical - check cardiac enzymes, consult cardiology - Request medical records from [facility] fib, rate controlled - Not on anticoagulation due to noncompliance and history of fall Coronary artery disease, continue home meds CHF, Chronic, systolic - unknown EF as no prior echo at this facility. check echo. volume removal via dialysis. Hypertension, continue home meds PTSD, supportive care Thrombocytopenia, monitor CBC Physical debility - we'll consult PT, patient requesting placement Brief History: 72-year-old man with a history of end-stage renal disease on dialysis, hypertension, CHF, A. fib, coronary artery disease, PTSD, COPD comes emergency room with complaints of shortness of breath, he missed dialysis for 1 week. The patient also complains of chest pain and gets relieved with pain medication. Patient had a stress test in January which showed no ischemia. Cardiology and nephrology consulted for further evaluation Radiological data: CXR: Cardiac enlargement with moderate interstitial edema and bilateral pleural effusions Hospitalist Physical exam: GENERAL: elderly malnourished debilitated AAM lying on bed appeared to be in no discomfort. HEENT: Normocephalic. Atraumatic. No conjunctival congestion or icterus. Patient has moist mucous membranes. NECK: Supple. Trachea midline. CHEST/LUNGS: Clear to auscultated bilaterally, breathing nonlabored. No wheezes crackles or rhonchi. HEART/CARDIOVASCULAR: Regular in rate and rhythm. S1 and S2 positive. ABDOMEN: Abdomen is soft, nontender. Patient has normal bowel sounds. SKIN: There is no rash. Warm and dry. NEURO: No focal motor deficit. Follows command. MUSCULOSKELETAL: No joint effusion or tenderness. EXTRIMITY: No edema, PSYCH: Cooperative. Subjective Date of service: 05/11/19 Interval history: Patient seen and examined. Medical records and medication list reviewed. No acute event overnight noted by the RN. Patient complains of generalized weakness and generalized body ache. Patient is tolerating diet. Discussed plan of care at bedside with patient. Objective - Constitutional Vitals: Vital Signs - 12hr 05/11/19 05/11/19 05/11/19 01:10 01:25 05:28 Temperature 98.1 F Pulse Rate 92 H 82 Respiratory 20 18 Rate Blood Pressure 120/53 O2 Sat by Pulse 100 Oximetry 05/11/19 05/11/19 05/11/19 08:41 09:18 09:19 Temperature 97.4 F L Pulse Rate 85 Respiratory 18 Rate Blood Pressure 110/72 110/72 110/72 O2 Sat by Pulse 100 Oximetry - Labs CBC & Chem 7: 05/11/19 05:51 05/12/19 20:54 Labs: Abnormal lab results 05/10/19 05/10/19 05/10/19 Range/Units 20:25 23:14 23:30 RBC (3.65-5.03) M/mm3 Hgb (11.8-15.2) gm/dl Hct (35.5-45.6) % MCV (84-94) fl MCHC (32-34) % RDW (13.2-15.2) % Plt Count (140-440) K/mm3 [place] % (Auto) (0.0-7.3) % Eos % (Auto) (0.0-4.3) % Baso % (Auto) (0.0-1.8) % Lymph # (1.2-5.4) K/mm3 [place] # (0.0-0.8) K/mm3 Baso # (0.0-0.1) K/mm3 Sodium (137-145) mmol/L Potassium 5.4 H (3.6-5.0) mmol/L Carbon Dioxide 17 L (22-30) mmol/L BUN 59 H (9-20) mg/dL Creatinine 10.1 H (0.8-1.5) mg/dL Glucose 118 H (75-100) mg/dL POC Glucose 222 H (70-105) Calcium 8.3 L (8.4-10.2) mg/dL CK-MB (CK-2) Rel Index 5.8 H (0-4) Troponin T 0.559 H* (0.00-0.029) ng/mL LDL Cholesterol Direct 20 L (50-130) mg/dL HDL Cholesterol 23 L (40-59) mg/dL Hepatitis C Antibody (NonReactive) 05/11/19 05/11/19 05/11/19 Range/Units 01:48 01:48 01:48 RBC 2.98 L (3.65-5.03) M/mm3 Hgb 9.2 L (11.8-15.2) gm/dl Hct 28.2 L (35.5-45.6) % MCV 95 H (84-94) fl MCHC (32-34) % RDW 15.3 H (13.2-15.2) % Plt Count 131 L (140-440) K/mm3 [place] % (Auto) 14.3 H (0.0-7.3) % Eos % (Auto) 4.5 H (0.0-4.3) % Baso % (Auto) (0.0-1.8) % Lymph # 1.0 L (1.2-5.4) K/mm3 [place] # (0.0-0.8) K/mm3 Baso # (0.0-0.1) K/mm3 Sodium (137-145) mmol/L Potassium (3.6-5.0) mmol/L Carbon Dioxide (22-30) mmol/L BUN (9-20) mg/dL Creatinine (0.8-1.5) mg/dL Glucose (75-100) mg/dL POC Glucose (70-105) Calcium (8.4-10.2) mg/dL CK-MB (CK-2) Rel Index 5.7 H (0-4) Troponin T 0.551 H* (0.00-0.029) ng/mL LDL Cholesterol Direct (50-130) mg/dL HDL Cholesterol (40-59) mg/dL Hepatitis C Antibody (NonReactive) 05/11/19 05/11/19 05/11/19 Range/Units 05:51 05:51 05:51 RBC 3.14 L (3.65-5.03) M/mm3 Hgb 9.6 L (11.8-15.2) gm/dl Hct 30.7 L (35.5-45.6) % MCV 98 H (84-94) fl MCHC 31 L (32-34) % RDW 15.6 H (13.2-15.2) % Plt Count 131 L (140-440) K/mm3 [place] % (Auto) 14.9 H (0.0-7.3) % Eos % (Auto) (0.0-4.3) % Baso % (Auto) 2.6 H (0.0-1.8) % Lymph # 1.1 L (1.2-5.4) K/mm3 [place] # 0.9 H (0.0-0.8) K/mm3 Baso # 0.2 H (0.0-0.1) K/mm3 Sodium 135 L (137-145) mmol/L Potassium 5.8 H (3.6-5.0) mmol/L Carbon Dioxide 17 L (22-30) mmol/L BUN 61 H (9-20) mg/dL Creatinine 9.7 H (0.8-1.5) mg/dL Glucose 130 H (75-100) mg/dL POC Glucose (70-105) Calcium 8.2 L (8.4-10.2) mg/dL CK-MB (CK-2) Rel Index 5.9 H (0-4) Troponin T 0.512 H* (0.00-0.029) ng/mL LDL Cholesterol Direct (50-130) mg/dL HDL Cholesterol (40-59) mg/dL Hepatitis C Antibody (NonReactive) 05/11/19 05/11/19 Range/Units 10:10 11:55 RBC (3.65-5.03) M/mm3 Hgb (11.8-15.2) gm/dl Hct (35.5-45.6) % MCV (84-94) fl MCHC (32-34) % RDW (13.2-15.2) % Plt Count (140-440) K/mm3 [place] % (Auto) (0.0-7.3) % Eos % (Auto) (0.0-4.3) % Baso % (Auto) (0.0-1.8) % Lymph # (1.2-5.4) K/mm3 [place] # (0.0-0.8) K/mm3 Baso # (0.0-0.1) K/mm3 Sodium (137-145) mmol/L Potassium (3.6-5.0) mmol/L Carbon Dioxide (22-30) mmol/L BUN (9-20) mg/dL Creatinine (0.8-1.5) mg/dL Glucose (75-100) mg/dL POC Glucose 111 H (70-105) Calcium (8.4-10.2) mg/dL CK-MB (CK-2) Rel Index (0-4) Troponin T (0.00-0.029) ng/mL LDL Cholesterol Direct (50-130) mg/dL HDL Cholesterol (40-59) mg/dL Hepatitis C Antibody Reactive A (NonReactive)
[2019-05-11] MEDS ORDERED: diphenhydrAMINE 25 MG/10 ML ORAL LIQUID PO ONE (14:29)
[2019-05-11] MEDS: EPOETIN ALFA 10,000 UNIT/1 ML INJ SUB-Q PRN (16:51)
--- NOTE | 2019-05-12 00:15 | Progress Note ---
Assessment and Plan Assessment/Plan: End-stage renal disease on dialysis - management per nephrology Hyperkalemia - management per nephrology chest pain - atypical symptoms. troponin is not in the expected pattern for ACS. Stress test done at [facility] 06/04 showed no significant ischemia. No further CV workup at this time. A. fib - rate control strategy. Not currently on anticoagulation due to high risk of falls and bleeding. Coronary artery disease - on high intensity statin. start ASA. Reportedly patient had a previous stress test in january. Will try to obtain the report. CHF, Chronic, systolic - Echo 05/[address] [facility] showed moderate concentric LVH, EF 49%, LV moderately dilated, and trace AI. medical therapy with BB Hypertension - currently at goal. continue current medical therapy PTSD Thrombocytopenia - management per primary Subjective Date of service: 05/12/19 Interval history: No acute events. Resting comfortably. no chest pain or sOB. Objective Vital Signs Temp Pulse Resp BP Pulse Ox 05/11/19 21:58 108 H 146/99 05/11/19 19:33 98.0 F 100 H 18 146/99 100 05/11/19 18:02 97.4 F L 100 H 18 142/101 97 05/11/19 17:15 97.4 F L 94 H 18 152/84 05/11/19 17:00 90 134/79 05/11/19 16:45 99 H 148/93 05/11/19 16:30 75 156/86 05/11/19 16:15 77 131/30 05/11/19 16:00 67 107/80 05/11/19 15:45 61 108/71 05/11/19 15:30 98 H 103/67 05/11/19 15:16 94 H 126/54 05/11/19 15:00 95 H 109/71 05/11/19 14:45 96 H 140/67 05/11/19 14:30 104 H 114/79 05/11/19 14:20 85 123/85 05/11/19 14:00 97.4 F L 95 H 18 143/92 05/11/19 09:19 110/72 05/11/19 09:18 110/72 05/11/19 08:41 97.4 F L 85 18 110/72 100 05/11/19 05:28 98.1 F 82 18 120/53 100 05/11/19 01:25 20 05/11/19 01:10 92 H - Physical Examination HEENT: Positive: PERRL, EOMI Neck: Positive: neck supple, trachea midline Neuro: Positive: Grossly Intact Abdomen: Positive: Unremarkable, Soft Extremities: Present: normal - Labs and Meds Cardiac Enzymes 05/10/19 05/11/19 05/11/19 Range/Units 23:30 01:48 05:51 CK-MB (CK-2) 3.9 3.6 3.7 (0.0-4.0) ng/mL Lipids 05/10/19 Range/Units 23:30 Triglycerides 91 (2-149) mg/dL Cholesterol 64 (50-199) mg/dL HDL Cholesterol 23 L (40-59) mg/dL Cholesterol/HDL Ratio 2.78 % CBC 05/11/19 05/11/19 Range/Units 01:48 05:51 WBC 5.2 6.1 (4.5-11.0) K/mm3 RBC 2.98 L 3.14 L (3.65-5.03) M/mm3 Hgb 9.2 L 9.6 L (11.8-15.2) gm/dl Hct 28.2 L 30.7 L (35.5-45.6) % Plt Count 131 L 131 L (140-440) K/mm3 Lymph # 1.0 L 1.1 L (1.2-5.4) K/mm3 [place] # 0.7 0.9 H (0.0-0.8) K/mm3 Eos # 0.2 0.3 (0.0-0.4) K/mm3 Baso # 0.1 0.2 H (0.0-0.1) K/mm3 Comprehensive Metabolic Panel 05/11/19 Range/Units 05:51 Sodium 135 L (137-145) mmol/L Potassium 5.8 H (3.6-5.0) mmol/L Chloride 100.0 (98-107) mmol/L Carbon Dioxide 17 L (22-30) mmol/L BUN 61 H (9-20) mg/dL Creatinine 9.7 H (0.8-1.5) mg/dL Glucose 130 H (75-100) mg/dL Calcium 8.2 L (8.4-10.2) mg/dL - Imaging and Cardiology EKG: report reviewed
--- NOTE | 2019-05-12 09:50 | Progress Note ---
Assessment and Plan 1. ESRD: Patient was admitted after he missed 2 sessions of hemodialysis. Continue hemodialysis three times a week, TTS schedule. Hemodialysis: 05/11. 2. FEN: Hyperkalemia, s/p HD. Metabolic acidosis, s/p HD. Volume overload, s/p UF with HD. Renal diet. Monitor. 3. Chest pain and Elevated Troponin: Followed by Cardiology. 4. Chronic pleural effusion. 5. A.fib: Rate controlled. 6. HTN. 7. Anemia: Epogen with HD. 8. PAD. Examination: General appearance: well-developed, appears stated age, no distress HEENT: ATNC, ELENI, hearing intact, vision intact Neck: neck supple, trachea midline Respiratory: Decreased Breath Sounds Heart: irregularly irregular, S1S2, no murmurs Gastrointestinal: soft, BS heard, not tender, not distended Integumentary: no rash, warm and dry Neurologic: no focal deficit, no asterixis, alert and oriented x3 Ext: No edema, L below elbow amputation Hemodialysis access: R IJ tunnel catheter, R arm AVF Subjective Date of service: 05/12/19 Interval history: Patient was seen and examined at the bedside. Doing ok. Objective - Vital Signs Vital signs: Vital Signs - 12hr 05/11/19 05/11/19 05/12/19 21:58 23:51 04:08 Temperature 98.0 F Pulse Rate 108 H 93 H 90 Respiratory 18 Rate Blood Pressure 146/99 119/81 O2 Sat by Pulse 100 Oximetry 05/12/19 05/12/19 08:09 08:35 Temperature 98.5 F Pulse Rate 83 Respiratory 18 Rate Blood Pressure 101/63 O2 Sat by Pulse 100 100 Oximetry - Lab 05/11/19 05:51 05/11/19 05:51 Most recent lab results Calcium 8.2 mg/dL (8.4-10.2) L 05/11/19 05:51 Medications & Allergies - Medications Allergies/Adverse Reactions: Allergies aspirin Allergy (Verified 02/20/19 22:06) Unknown stomach cramps pork derived (porcine) Allergy (Verified 02/20/19 22:06) Rash venom-honey bee [bee venom (honey bee)] Allergy (Verified 02/20/19 22:06) Anaphylaxis Pork/Porcine Containing Products Adverse Reaction (Severe, Verified 02/20/19 22:06) Nausea,VOMITING Home Medications: Home Medications Medication Instructions Recorded Confirmed Last Taken Type Oxycodone HCl [oxyCODONE] 10 mg PO Q6H PRN #20 04/03/19 Unknown Rx AtorvaSTATin [Lipitor] 40 mg PO QHS 05/10/19 05/10/19 05/09/19 History Clonidine HCl [Catapres] 0.3 mg PO BID 05/10/19 05/10/19 05/09/19 History amLODIPine [Norvasc] 20 mg PO DAILY 05/10/19 05/10/19 05/09/19 History Active Medications: Generic Name Dose Route Start Last Admin Trade Name Freq PRN Reason Stop Dose Admin Acetaminophen 650 mg 05/10/19 23:23 Tylenol PO Q4H PRN Pain MILD(1-3)/Fever >100.5/DOUGLAS Amlodipine Besylate 10 mg 05/11/19 10:00 05/11/19 10:19 Amlodipine PO Not Given DAILY BEAN Atorvastatin Calcium 40 mg 05/11/19 22:00 05/11/19 21:58 Lipitor PO 40 mg QHS BEAN Administration Clonidine HCl 0.3 mg 05/11/19 10:00 05/11/19 21:58 Catapres PO 0.3 mg BID BEAN Administration Epoetin Prashant 10,000 unit 05/11/19 09:12 05/11/19 16:51 Procrit SUB-Q 10,000 unit KATERYNA PRN Administration hemodialysis Sodium Chloride 100 mls @ 999 mls/hr 05/11/19 09:54 Nacl 0.9% IV KATERYNA PRN Hypotension Morphine Sulfate 2 mg 05/11/19 23:07 Morphine IV Q4H PRN Pain, Moderate (5-10) Ondansetron HCl 4 mg 05/10/19 23:23 Zofran IV Q8H PRN Nausea And Vomiting Oxycodone/Acetaminophen 1 tab 05/10/19 23:23 05/11/19 10:20 Percocet 5/325 PO 1 tab Q6H PRN Administration Pain, Moderate (4-6) Sodium Chloride 10 ml 05/11/19 10:00 05/11/19 21:58 Sodium Chloride Flush Syringe 10 Ml IV 10 ml BID BEAN Administration Sodium Chloride 10 ml 05/10/19 23:23 Sodium Chloride Flush Syringe 10 Ml IV PRN PRN LINE FLUSH
[2019-05-12] MEDS: oxyCODONE /ACETAMINOPHEN 5-325MG TAB PO PRN (11:06)
[2019-05-12] MEDS: amLODIPine 10 MG TAB PO SCH (11:08)
[2019-05-12] MEDS: cloNIDine 0.1 MG TAB PO SCH ×2 (11:09→21:25)
--- NOTE | 2019-05-12 13:58 | Progress Note ---
Assessment and Plan End-stage renal disease on dialysis - renal was consulted for dialysis Noncompliance, counseled Hyperkalemia, s/p cocktail for hyperkalemia, follow potassium level Chest pain, atypical - followed cardiac enzymes, consulted cardiology - Request medical records from [facility] - Stress test done at [facility] 06/04 showed no significant ischemia. No further CV workup at this time per cardiology A. fib, rate controlled - Not on anticoagulation due to noncompliance and history of fall Coronary artery disease, continue home meds CHF, Chronic, systolic - volume removal via dialysis. - Echo 05/07 at [facility] showed moderate concentric LVH, EF 49%, LV moderately dilated, and trace AI. medical therapy with BB Hypertension, continue home meds PTSD, supportive care Thrombocytopenia, monitor CBC Physical debility - we'll consult PT, patient requesting placement Disposition: Pending placement Brief History: 72-year-old man with a history of end-stage renal disease on dialysis, hypertension, CHF, A. fib, coronary artery disease, PTSD, COPD comes emergency room with complaints of shortness of breath, he missed dialysis for 1 week. The patient also complains of chest pain and gets relieved with pain medication. Patient had a stress test in January which showed no ischemia. Cardiology and nephrology consulted for further evaluation Radiological data: CXR: Cardiac enlargement with moderate interstitial edema and bilateral pleural effusions Hospitalist Physical exam: GENERAL: elderly malnourished debilitated AAM lying on bed appeared to be in no discomfort. HEENT: Normocephalic. Atraumatic. No conjunctival congestion or icterus. Patient has moist mucous membranes. NECK: Supple. Trachea midline. CHEST/LUNGS: Clear to auscultated bilaterally, breathing nonlabored. No wheezes crackles or rhonchi. HEART/CARDIOVASCULAR: Regular in rate and rhythm. S1 and S2 positive. ABDOMEN: Abdomen is soft, nontender. Patient has normal bowel sounds. SKIN: There is no rash. Warm and dry. NEURO: No focal motor deficit. Follows command. MUSCULOSKELETAL: No joint effusion or tenderness. EXTRIMITY: No edema, PSYCH: Cooperative. Subjective Date of service: 05/12/19 Interval history: Patient seen and examined. Medical records and medication list reviewed. No acute event overnight noted by the RN. Patient complains of generalized weakness and generalized body ache. Patient is tolerating diet. Discussed plan of care at bedside with patient. Objective - Constitutional Vitals: Vital Signs - 12hr 05/12/19 05/12/19 05/12/19 04:08 08:09 08:35 Temperature 98.5 F Pulse Rate 90 83 Pulse Rate [ Left Radial] Respiratory 18 Rate Blood Pressure 101/63 O2 Sat by Pulse 100 100 Oximetry 05/12/19 05/12/19 05/12/19 10:00 11:08 11:09 Temperature Pulse Rate 78 79 Pulse Rate [ 83 Left Radial] Respiratory 16 Rate Blood Pressure O2 Sat by Pulse Oximetry 05/12/19 12:35 Temperature 98.1 F Pulse Rate 70 Pulse Rate [ Left Radial] Respiratory 18 Rate Blood Pressure 104/70 O2 Sat by Pulse 100 Oximetry - Labs CBC & Chem 7: 05/11/19 05:51 05/12/19 20:54 Labs: Abnormal lab results 05/11/19 05/12/19 05/12/19 Range/Units 17:13 08:17 12:01 POC Glucose 149 H 135 H 198 H (70-105)
[2019-05-12] MEDS: MORPHINE 2 MG/1 ML INJ IV PRN (19:02)
[2019-05-12] MEDS: METOPROLOL TARTRATE 25 MG TAB PO SCH (21:24)
[2019-05-12 21:53] LABS: Calcium 7.8 mg/dL (8.4-10.2)
--- NOTE | 2019-05-13 08:42 | Progress Note ---
<LONI DEL VALLE - Last Filed: 05/13/19 10:42> Assessment and Plan Atypical chest pain no ischemia by MPI 01/2019 Bilateral pleural effusion End-stage renal disease on hemodialysis Chronic elevated troponin Chronic atrial fibrillation, rate control not currently on anticoagulation due to high risk of falls and bleeding. Dilated nonischemic cardiomyopathy ejection fraction 25-30% by echocardiogram 01/2019 moderate concentric LVH, LV moderately dilated and trace AI with an ejection fraction 49% by echo 05/07 at [facility] DM type II PVD s/p left arm amputation Hypertension Thrombocytopenia, chronic Non-obstructive CAD C 01/2017 revealed non-obstructive, single vessel disease of the proximal LAD recommended for medical therapy. Recommend: Dialysis for fluid management. Continue medical therapy for nonischemic cardiomyopathy, chronic systolic heart failure and non-obstructive CAD as tolerated. We will follow intermittently. Subjective Date of service: 05/13/19 Objective Vital Signs Temp Pulse Pulse Resp BP Pulse Ox 05/13/19 07:34 94 05/13/19 04:08 71 05/13/19 03:38 98.0 F 75 18 99/66 100 05/12/19 23:25 97.8 F 79 20 106/63 100 05/12/19 21:56 100 05/12/19 21:25 77 135/70 05/12/19 21:24 77 135/70 05/12/19 20:16 75 05/12/19 19:25 98.0 F 69 20 135/70 100 05/12/19 17:11 98.0 F 70 18 91/64 100 05/12/19 12:35 98.1 F 70 18 104/70 100 05/12/19 11:09 79 05/12/19 11:08 78 05/12/19 10:00 83 16 - Physical Examination General: No Apparent Distress HEENT: Positive: PERRL Neck: Positive: trachea midline Cardiac: Positive: irregularly irregular Lungs: Positive: Decreased Breath Sounds Neuro: Positive: Grossly Intact - Labs and Meds Comprehensive Metabolic Panel 05/12/19 Range/Units 20:54 Sodium 137 (137-145) mmol/L Potassium 5.1 H (3.6-5.0) mmol/L Chloride 98.2 (98-107) mmol/L Carbon Dioxide 23 (22-30) mmol/L BUN 37 H (9-20) mg/dL Creatinine 7.8 H (0.8-1.5) mg/dL Glucose 170 H (75-100) mg/dL Calcium 7.8 L (8.4-10.2) mg/dL <ENEDINA ROCHA - Last Filed: 05/13/19 13:17> Assessment and Plan I've seen and evaluated the patient and agree with the assessment and plan. At this time recommend continued medical therapy for history of nonischemic cardiomyopathy and nonobstructive coronary artery disease. No further cardiovascular evaluation is required at this time. Objective Vital Signs Temp Pulse Resp BP Pulse Ox 05/13/19 09:24 101/66 05/13/19 09:23 73 101/05/13/19 09:21 76 05/13/19 07:34 94 05/13/19 04:08 71 05/13/19 03:38 98.0 F 75 18 99/66 100 05/12/19 23:25 97.8 F 79 20 106/63 100 05/12/19 21:56 100 05/12/19 21:25 77 135/70 05/12/19 21:24 77 135/70 05/12/19 20:16 75 05/12/19 19:25 98.0 F 69 20 135/70 100 05/12/19 17:11 98.0 F 70 18 91/64 100 - Labs and Meds Comprehensive Metabolic Panel 05/12/19 Range/Units 20:54 Sodium 137 (137-145) mmol/L Potassium 5.1 H (3.6-5.0) mmol/L Chloride 98.2 (98-107) mmol/L Carbon Dioxide 23 (22-30) mmol/L BUN 37 H (9-20) mg/dL Creatinine 7.8 H (0.8-1.5) mg/dL Glucose 170 H (75-100) mg/dL Calcium 7.8 L (8.4-10.2) mg/dL
[2019-05-13] MEDS: METOPROLOL TARTRATE 25 MG TAB PO SCH ×2 (09:21→22:29)
[2019-05-13] MEDS: oxyCODONE /ACETAMINOPHEN 5-325MG TAB PO PRN ×2 (09:22→22:31)
[2019-05-13] MEDS: amLODIPine 10 MG TAB PO SCH (09:23)
[2019-05-13] MEDS: cloNIDine 0.1 MG TAB PO SCH ×2 (09:24→22:30)
--- NOTE | 2019-05-13 09:24 | Progress Note ---
Assessment and Plan 1. ESRD: Patient was admitted after he missed 2 sessions of hemodialysis. Continue hemodialysis three times a week, TTS schedule. Hemodialysis: 05/11, 05/13. 2. FEN: Hyperkalemia, HD today. Metabolic acidosis, s/p HD. Volume overload, UF with HD. Renal diet. Monitor. 3. Chest pain and Elevated Troponin: Followed by Cardiology. 4. Chronic pleural effusion. 5. A.fib: Rate controlled. 6. HTN. 7. Anemia: Epogen with HD. 8. PAD. Examination: General appearance: well-developed, appears stated age, no distress HEENT: ATNC, ELENI, hearing intact, vision intact Neck: neck supple, trachea midline Respiratory: Decreased Breath Sounds Heart: irregularly irregular, S1S2, no murmurs Gastrointestinal: soft, BS heard, not tender, not distended Integumentary: no rash, warm and dry Neurologic: no focal deficit, no asterixis, alert and oriented x3 Ext: No edema, L below elbow amputation Hemodialysis access: R IJ tunnel catheter, R arm AVF Subjective Date of service: 05/13/19 Interval history: Patient was seen and examined at the bedside. Doing ok. Objective - Vital Signs Vital signs: Vital Signs - 12hr 05/12/19 05/12/19 05/12/19 21:25 21:56 23:25 Temperature 97.8 F Pulse Rate 77 79 Respiratory 20 Rate Blood Pressure 135/70 106/63 O2 Sat by Pulse 100 100 Oximetry 05/13/19 05/13/19 05/13/19 03:38 04:08 07:34 Temperature 98.0 F Pulse Rate 75 71 Respiratory 18 Rate Blood Pressure 99/66 O2 Sat by Pulse 100 94 Oximetry - Lab 05/11/19 05:51 05/12/19 20:54 Most recent lab results Calcium 7.8 mg/dL (8.4-10.2) L 05/12/19 20:54 Medications & Allergies - Medications Allergies/Adverse Reactions: Allergies aspirin Allergy (Verified 02/20/19 22:06) Unknown stomach cramps pork derived (porcine) Allergy (Verified 02/20/19 22:06) Rash venom-honey bee [bee venom (honey bee)] Allergy (Verified 02/20/19 22:06) Anaphylaxis Pork/Porcine Containing Products Adverse Reaction (Severe, Verified 02/20/19 22:06) Nausea,VOMITING Home Medications: Home Medications Medication Instructions Recorded Confirmed Last Taken Type Oxycodone HCl [oxyCODONE] 10 mg PO Q6H PRN #20 04/03/19 Unknown Rx AtorvaSTATin [Lipitor] 40 mg PO QHS 05/10/19 05/10/19 05/09/19 History Clonidine HCl [Catapres] 0.3 mg PO BID 05/10/19 05/10/19 05/09/19 History amLODIPine [Norvasc] 20 mg PO DAILY 05/10/19 05/10/19 05/09/19 History Active Medications: Generic Name Dose Route Start Last Admin Trade Name Freq PRN Reason Stop Dose Admin Acetaminophen 650 mg 05/10/19 23:23 Tylenol PO Q4H PRN Pain MILD(1-3)/Fever >100.5/DOUGLAS Amlodipine Besylate 10 mg 05/11/19 10:00 05/12/19 11:08 Amlodipine PO 10 mg DAILY BEAN Administration Atorvastatin Calcium 40 mg 05/11/19 22:00 05/12/19 21:24 Lipitor PO 40 mg QHS BEAN Administration Clonidine HCl 0.3 mg 05/11/19 10:00 05/12/19 21:25 Catapres PO 0.3 mg BID BEAN Administration Epoetin Prashant 10,000 unit 05/11/19 09:12 05/11/19 16:51 Procrit SUB-Q 10,000 unit KATERYNA PRN Administration hemodialysis Sodium Chloride 100 mls @ 999 mls/hr 05/11/19 09:54 Nacl 0.9% IV KATERYNA PRN Hypotension Metoprolol Tartrate 12.5 mg 05/12/19 22:00 05/12/19 21:24 Metoprolol PO 12.5 mg BID BEAN Administration Morphine Sulfate 2 mg 05/11/19 23:07 05/12/19 19:02 Morphine IV 2 mg Q4H PRN Administration Pain, Moderate (5-10) Ondansetron HCl 4 mg 05/10/19 23:23 Zofran IV Q8H PRN Nausea And Vomiting Oxycodone/Acetaminophen 1 tab 05/10/19 23:23 05/12/19 11:06 Percocet 5/325 PO 1 tab Q6H PRN Administration Pain, Moderate (4-6) Sodium Chloride 10 ml 05/11/19 10:00 05/12/19 21:25 Sodium Chloride Flush Syringe 10 Ml IV 10 ml BID BEAN Administration Sodium Chloride 10 ml 05/10/19 23:23 Sodium Chloride Flush Syringe 10 Ml IV PRN PRN LINE FLUSH
[2019-05-13] MEDS ORDERED: LORazepam 2 MG/ML VIAL IV ONE (09:46)
[2019-05-13] MEDS ORDERED: SODIUM CHLORIDE 0.9% 100 ML IV PRN (11:12)
--- NOTE | 2019-05-13 14:50 | Progress Note ---
Assessment and Plan End-stage renal disease on dialysis - renal was consulted for dialysis Noncompliance, counseled Hyperkalemia, resolved, s/p cocktail for hyperkalemia, follow potassium level Chest pain, atypical - followed cardiac enzymes, consulted cardiology - Request medical records from [facility] - Stress test done at [facility] 06/04 showed no significant ischemia. No further CV workup at this time per cardiology A. fib, rate controlled - Not on anticoagulation due to noncompliance and history of fall Coronary artery disease, continue home meds CHF, Chronic, systolic - volume removal via dialysis. - Echo 05/07 at [facility] showed moderate concentric LVH, EF 49%, LV moderately dilated, and trace AI. medical therapy with BB Hypertension, continue home meds PTSD, supportive care Thrombocytopenia, monitor CBC Physical debility - consulted PT, patient requesting placement Disposition: Pending placement Brief History: 72-year-old man with a history of end-stage renal disease on dialysis, hypertension, CHF, A. fib, coronary artery disease, PTSD, COPD comes emergency room with complaints of shortness of breath, he missed dialysis for 1 week. The patient also complains of chest pain and gets relieved with pain medication. Patient had a stress test in January which showed no ischemia. Cardiology and nephrology consulted for further evaluation Radiological data: CXR: Cardiac enlargement with moderate interstitial edema and bilateral pleural effusions Hospitalist Physical exam: GENERAL: elderly malnourished debilitated AAM lying on bed appeared to be in no discomfort. HEENT: Normocephalic. Atraumatic. No conjunctival congestion or icterus. P atient has moist mucous membranes. NECK: Supple. Trachea midline. CHEST/LUNGS: Clear to auscultated bilaterally, breathing nonlabored. No wheezes crackles or rhonchi. HEART/CARDIOVASCULAR: Regular in rate and rhythm. S1 and S2 positive. ABDOMEN: Abdomen is soft, nontender. Patient has normal bowel sounds. SKIN: There is no rash. Warm and dry. NEURO: No focal motor deficit. Follows command. MUSCULOSKELETAL: No joint effusion or tenderness. EXTRIMITY: No edema, PSYCH: Cooperative. Subjective Date of service: 05/13/19 Interval history: Patient seen and examined. Medical records and medication list reviewed. No acute event overnight noted by the RN. Patient continue to complains of generalized weakness and generalized body ache. Patient is tolerating diet. Discussed plan of care at bedside with patient. Objective - Constitutional Vitals: Vital Signs - 12hr 05/13/19 05/13/19 05/13/19 03:38 04:08 07:34 Temperature 98.0 F Pulse Rate 75 71 Respiratory 18 Rate Blood Pressure 99/66 O2 Sat by Pulse 100 94 Oximetry 05/13/19 05/13/19 05/13/19 09:21 09:23 09:24 Temperature Pulse Rate 76 73 Respiratory Rate Blood Pressure 101/66 101/66 O2 Sat by Pulse Oximetry - Labs CBC & Chem 7: 05/11/19 05:51 05/12/19 20:54 Labs: Abnormal lab results 05/12/19 05/12/19 05/12/19 Range/Units 16:13 20:54 22:13 Potassium 5.1 H (3.6-5.0) mmol/L BUN 37 H (9-20) mg/dL Creatinine 7.8 H (0.8-1.5) mg/dL Glucose 170 H (75-100) mg/dL POC Glucose 187 H 191 H (70-105) Calcium 7.8 L (8.4-10.2) mg/dL 05/13/19 Range/Units 09:26 Potassium (3.6-5.0) mmol/L BUN (9-20) mg/dL Creatinine (0.8-1.5) mg/dL Glucose (75-100) mg/dL POC Glucose 158 H (70-105) Calcium (8.4-10.2) mg/dL
[2019-05-13] MEDS: MORPHINE 2 MG/1 ML INJ IV PRN (18:28)
[2019-05-13] MEDS: EPOETIN ALFA 10,000 UNIT/1 ML INJ SUB-Q PRN (21:00)
[2019-05-13] MEDS ORDERED: diphenhydrAMINE 50 MG/ML VIAL IV ONE (22:15)
--- NOTE | 2019-05-14 09:18 | Progress Note ---
Assessment and Plan 1. ESRD: Patient was admitted after he missed 2 sessions of hemodialysis. Continue hemodialysis three times a week. Hemodialysis: 05/11, 05/13. 2. FEN: Hyperkalemia, improved. Metabolic acidosis, s/p HD. Volume overload, UF with HD. Renal diet. Monitor. 3. Chest pain and Elevated Troponin: Followed by Cardiology. 4. Chronic pleural effusion. 5. A.fib: Rate controlled. 6. HTN. 7. Anemia: Epogen with HD. 8. PAD. Await placement. Examination: General appearance: well-developed, appears stated age, no distress HEENT: ATNC, ELENI, hearing intact, vision intact Neck: neck supple, trachea midline Respiratory: Decreased Breath Sounds Heart: irregularly irregular, S1S2, no murmurs Gastrointestinal: soft, BS heard, not tender, not distended Integumentary: no rash, warm and dry Neurologic: no focal deficit, no asterixis, alert and oriented x3 Ext: No edema, L below elbow amputation Hemodialysis access: R IJ tunnel catheter, R arm AVF Subjective Date of service: 05/14/19 Interval history: Patient was seen and examined at the bedside. Doing ok. Objective - Vital Signs Vital signs: Vital Signs - 12hr 05/13/19 05/13/19 05/14/19 22:00 23:17 03:47 Temperature 98.8 F 99.5 F Pulse Rate 75 Pulse Rate [ 80 Left Radial] Respiratory 18 18 Rate Blood Pressure 134/90 122/78 O2 Sat by Pulse 98 100 Oximetry 05/14/19 04:00 Temperature Pulse Rate 62 Pulse Rate [ Left Radial] Respiratory Rate Blood Pressure O2 Sat by Pulse 99 Oximetry - Lab 05/11/19 05:51 05/14/19 08:58 Most recent lab results Calcium 7.8 mg/dL (8.4-10.2) L 05/12/19 20:54 Medications & Allergies - Medications Allergies/Adverse Reactions: Allergies aspirin Allergy (Verified 02/20/19 22:06) Unknown stomach cramps pork derived (porcine) Allergy (Verified 02/20/19 22:06) Rash venom-honey bee [bee venom (honey bee)] Allergy (Verified 02/20/19 22:06) Anaphylaxis Pork/Porcine Containing Products Adverse Reaction (Severe, Verified 02/20/19 22:06) Nausea,VOMITING Home Medications: Home Medications Medication Instructions Recorded Confirmed Last Taken Type Oxycodone HCl [oxyCODONE] 10 mg PO Q6H PRN #20 04/03/19 05/14/19 Unknown Rx AtorvaSTATin [Lipitor] 40 mg PO QHS 05/10/19 05/10/19 05/09/19 History Clonidine HCl [Catapres] 0.3 mg PO BID 05/10/19 05/10/19 05/09/19 History amLODIPine [Norvasc] 20 mg PO DAILY 05/10/19 05/10/19 05/09/19 History Active Medications: Generic Name Dose Route Start Last Admin Trade Name Freq PRN Reason Stop Dose Admin Acetaminophen 650 mg 05/10/19 23:23 Tylenol PO Q4H PRN Pain MILD(1-3)/Fever >100.5/DOUGLAS Amlodipine Besylate 10 mg 05/11/19 10:00 05/13/19 09:23 Amlodipine PO Not Given DAILY BEAN Atorvastatin Calcium 40 mg 05/11/19 22:00 05/13/19 22:31 Lipitor PO 40 mg QHS BEAN Administration Clonidine HCl 0.3 mg 05/11/19 10:00 05/13/19 22:30 Catapres PO 0.3 mg BID BEAN Administration Epoetin Prashant 10,000 unit 05/11/19 09:12 05/13/19 21:00 Procrit SUB-Q 10,000 unit KATERYNA PRN Administration hemodialysis Sodium Chloride 100 mls @ 999 mls/hr 05/13/19 11:12 Nacl 0.9% IV KATERYNA PRN Hypotension Metoprolol Tartrate 12.5 mg 05/12/19 22:00 05/13/19 22:29 Metoprolol PO 12.5 mg BID BEAN Administration Morphine Sulfate 2 mg 05/11/19 23:07 05/13/19 18:28 Morphine IV 2 mg Q4H PRN Administration Pain, Moderate (5-10) Ondansetron HCl 4 mg 05/10/19 23:23 Zofran IV Q8H PRN Nausea And Vomiting Oxycodone/Acetaminophen 1 tab 05/10/19 23:23 05/13/19 22:31 Percocet 5/325 PO 1 tab Q6H PRN Administration Pain, Moderate (4-6) Sodium Chloride 10 ml 05/11/19 10:00 05/13/19 22:40 Sodium Chloride Flush Syringe 10 Ml IV 10 ml BID BEAN Administration Sodium Chloride 10 ml 05/10/19 23:23 Sodium Chloride Flush Syringe 10 Ml IV PRN PRN LINE FLUSH
[2019-05-14] MEDS: amLODIPine 10 MG TAB PO SCH (09:56)
[2019-05-14] MEDS: cloNIDine 0.1 MG TAB PO SCH ×2 (09:57→23:10)
[2019-05-14] MEDS: METOPROLOL TARTRATE 25 MG TAB PO SCH ×2 (09:57→23:11)
[2019-05-14 10:04] LABS: Calcium 8.5 mg/dL (8.4-10.2)
--- NOTE | 2019-05-14 11:05 | Progress Note ---
Assessment and Plan Assessment and plan: Patient is 72-year-old man with a history of end-stage renal disease on dialysis, hypertension, CHF, A. fib, coronary artery disease, PTSD, COPD comes emergency room with complaints of shortness of breath, he missed dialysis for 1 week. The patient also complains of chest pain and gets relieved with pain medication. Patient had a stress test in January which showed no ischemia. Cardiology and nephrology consulted for further evaluation End-stage renal disease on dialysis - renal was consulted for dialysis Noncompliance, counseled Hyperkalemia, resolved, s/p meds Chest pain, atypical - followed cardiac enzymes, consulted cardiology - Request medical records from [facility] - Stress test done at [facility] 06/04 showed no significant ischemia. No further CV workup at this time per cardiology A. fib, rate controlled - Not on anticoagulation due to noncompliance and history of fall Coronary artery disease, continue home meds CHF, Chronic, systolic - volume removal via dialysis. - Echo 05/07 at [facility] showed moderate concentric LVH, EF 49%, LV moderately dilated, and trace AI. medical therapy with BB Hypertension, continue home meds PTSD, supportive care Thrombocytopenia, monitor CBC Physical debility - consulted PT, patient requesting placement Disposition: Pending placement patient medically stable, awaiting placement History Interval history: Shortness of breath, now resolved Hospitalist Physical - Physical exam Narrative exam: Gen: Not in acute distress, lying in bed HEENT: Normocephalic, atraumatic Neck: supple, no JVD Heart: S1 and S2 reg, no murmurs, rubs or gallop Lungs: Clear to auscultation bilaterally, Abd: soft, non tender, non distended, normal BS, Ext: Left forearm amputation, no clubbing, no cyanosis Neuro: Awake, alert, oriented X 3, - Constitutional Vitals: Temp Pulse Resp BP Pulse Ox 99.5 F 85 18 90/55 99 05/14/19 03:47 05/14/19 09:57 05/14/19 03:47 05/14/19 09:57 05/14/19 04:00 General appearance: Present: no acute distress Results - Labs CBC & Chem 7: 05/11/19 05:51 05/14/19 08:58 Labs: Laboratory Last Values WBC 6.1 K/mm3 (4.5-11.0) 05/11/19 05:51 RBC 3.14 M/mm3 (3.65-5.03) L 05/11/19 05:51 Hgb 9.6 gm/dl (11.8-15.2) L 05/11/19 05:51 Hct 30.7 % (35.5-45.6) L 05/11/19 05:51 MCV 98 fl (84-94) H 05/11/19 05:51 MCH 31 pg (28-32) 05/11/19 05:51 MCHC 31 % (32-34) L 05/11/19 05:51 RDW 15.6 % (13.2-15.2) H 05/11/19 05:51 Plt Count 131 K/mm3 (140-440) L 05/11/19 05:51 Lymph % (Auto) 18.3 % (13.4-35.0) 05/11/19 05:51 Foster % (Auto) 14.9 % (0.0-7.3) H 05/11/19 05:51 Eos % (Auto) 4.3 % (0.0-4.3) 05/11/19 05:51 Baso % (Auto) 2.6 % (0.0-1.8) H 05/11/19 05:51 Lymph # 1.1 K/mm3 (1.2-5.4) L 05/11/19 05:51 Foster # 0.9 K/mm3 (0.0-0.8) H 05/11/19 05:51 Eos # 0.3 K/mm3 (0.0-0.4) 05/11/19 05:51 Baso # 0.2 K/mm3 (0.0-0.1) H 05/11/19 05:51 Seg Neutrophils % 59.9 % (40.0-70.0) 05/11/19 05:51 Seg Neutrophils # 3.6 K/mm3 (1.8-7.7) 05/11/19 05:51 Sodium 137 mmol/L (137-145) 05/14/19 08:58 Potassium 4.4 mmol/L (3.6-5.0) 05/14/19 08:58 Chloride 98.4 mmol/L (98-107) 05/14/19 08:58 Carbon Dioxide 22 mmol/L (22-30) 05/14/19 08:58 Anion Gap 21 mmol/L 05/14/19 08:58 BUN 25 mg/dL (9-20) H 05/14/19 08:58 Creatinine 5.6 mg/dL (0.8-1.5) H 05/14/19 08:58 Estimated GFR 12 ml/min 05/14/19 08:58 BUN/Creatinine Ratio 4 % 05/14/19 08:58 Glucose 142 mg/dL (75-100) H 05/14/19 08:58 POC Glucose 93 (70-105) 05/14/19 08:07 Calcium 8.5 mg/dL (8.4-10.2) 05/14/19 08:58 Total Creatine Kinase 62 units/L (55-170) 05/11/19 05:51 CK-MB (CK-2) 3.7 ng/mL (0.0-4.0) 05/11/19 05:51 CK-MB (CK-2) Rel Index 5.9 (0-4) H 05/11/19 05:51 Troponin T 0.512 ng/mL (0.00-0.029) H* 05/11/19 05:51 Triglycerides 91 mg/dL (2-149) 05/10/19 23:30 Cholesterol 64 mg/dL (50-199) 05/10/19 23:30 LDL Cholesterol Direct 20 mg/dL (50-130) L 05/10/19 23:30 HDL Cholesterol 23 mg/dL (40-59) L 05/10/19 23:30 Cholesterol/HDL Ratio 2.78 % 05/10/19 23:30 Hepatitis A IgM Ab Non-reactive (NonReactive) 05/11/19 10:10 Hep Bs Antigen Non-reactive (Negative) 05/11/19 10:10 Hep B Core IgM Ab Non-reactive (NonReactive) 05/11/19 10:10 Hepatitis C Antibody Reactive (NonReactive) A 05/11/19 10:10 Active Medications - Current Medications Current Medications: Generic Name Dose Route Start Last Admin Trade Name Freq PRN Reason Stop Dose Admin Acetaminophen 650 mg 05/10/19 23:23 Tylenol PO Q4H PRN Pain MILD(1-3)/Fever >100.5/DOUGLAS Amlodipine Besylate 10 mg 05/11/19 10:00 05/14/19 09:56 Amlodipine PO Not Given DAILY [facility] Atorvastatin Calcium 40 mg 05/11/19 22:00 05/13/19 22:31 Lipitor PO 40 mg QHS BEAN Administration Clonidine HCl 0.3 mg 05/11/19 10:00 05/14/19 09:57 Catapres PO Not Given BID [facility] Epoetin Prashant 10,000 unit 05/11/19 09:12 05/13/19 21:00 Procrit SUB-Q 10,000 unit KATERYNA PRN Administration hemodialysis Sodium Chloride 100 mls @ 999 mls/hr 05/13/19 11:12 Nacl 0.9% IV KATERYNA PRN Hypotension Metoprolol Tartrate 12.5 mg 05/12/19 22:00 05/14/19 09:57 Metoprolol PO Not Given BID [facility] Morphine Sulfate 2 mg 05/11/19 23:07 05/13/19 18:28 Morphine IV 2 mg Q4H PRN Administration Pain, Moderate (5-10) Ondansetron HCl 4 mg 05/10/19 23:23 Zofran IV Q8H PRN Nausea And Vomiting Oxycodone/Acetaminophen 1 tab 05/10/19 23:23 05/13/19 22:31 Percocet 5/325 PO 1 tab Q6H PRN Administration Pain, Moderate (4-6) Sodium Chloride 10 ml 05/11/19 10:00 05/14/19 09:58 Sodium Chloride Flush Syringe 10 Ml IV 10 ml BID BEAN Administration Sodium Chloride 10 ml 05/10/19 23:23 Sodium Chloride Flush Syringe 10 Ml IV PRN PRN LINE FLUSH Nutrition/Malnutrition Assess - Dietary Evaluation Nutrition/Malnutrition Findings: Nutrition Notes Start: 05/11/19 11:02 Freq: Status: Active Protocol: Document 05/13/19 13:40 LP (Rec: 05/13/19 13:41 LP [id number]) Nutrition Notes Initial or Follow up Brief Note Subjective/Other Information Pt sleeping at time of visit. Noted temporal wasting. Nutrition Intervention Follow-Up By: 05/15/19 Additional Comments Follow for intakes
[2019-05-14] MEDS: MORPHINE 2 MG/1 ML INJ IV PRN (12:31)
[2019-05-14] MEDS: oxyCODONE /ACETAMINOPHEN 5-325MG TAB PO PRN (14:41)
[2019-05-15] MEDS: oxyCODONE /ACETAMINOPHEN 5-325MG TAB PO PRN (06:14)
[2019-05-15] MEDS ORDERED: SODIUM CHLORIDE 0.9% 100 ML IV PRN (08:31)
--- NOTE | 2019-05-15 09:01 | Progress Note ---
Assessment and Plan 1. ESRD: Patient was admitted after he missed 2 sessions of hemodialysis. Continue hemodialysis three times a week. Hemodialysis: 05/11, 05/13, 05/15. 2. FEN: Hyperkalemia, improved. Metabolic acidosis, improved. Volume overload, UF with HD. Renal diet. Monitor. 3. Chest pain and Elevated Troponin: Followed by Cardiology. 4. Chronic pleural effusion. 5. A.fib: Rate controlled. 6. HTN. 7. Anemia: Epogen with HD. 8. PAD. Await placement. Examination: General appearance: well-developed, appears stated age, no distress HEENT: ATNC, ELENI, hearing intact, vision intact Neck: neck supple, trachea midline Respiratory: Decreased Breath Sounds Heart: irregularly irregular, S1S2, no murmurs Gastrointestinal: soft, BS heard, not tender, not distended Integumentary: no rash, warm and dry Neurologic: no focal deficit, no asterixis, alert and oriented x3 Ext: No edema, L below elbow amputation Hemodialysis access: R IJ tunnel catheter, R arm AVF Subjective Date of service: 05/15/19 Interval history: Patient was seen and examined at the bedside. Doing ok. Objective - Vital Signs Vital signs: Vital Signs - 12hr 05/14/19 05/14/19 05/14/19 22:00 23:10 23:11 Temperature Pulse Rate 70 70 Pulse Rate [ 80 Apical] Respiratory 22 Rate Blood Pressure 108/72 108/72 O2 Sat by Pulse 98 Oximetry 05/14/19 05/15/19 05/15/19 23:31 01:00 04:11 Temperature 97.4 F L 98.0 F Pulse Rate 79 89 73 Pulse Rate [ Apical] Respiratory 19 17 Rate Blood Pressure 103/70 127/74 O2 Sat by Pulse 100 100 Oximetry 05/15/19 06:14 Temperature Pulse Rate Pulse Rate [ Apical] Respiratory 20 Rate Blood Pressure O2 Sat by Pulse Oximetry - Lab 05/11/19 05:51 05/14/19 08:58 Most recent lab results Calcium 8.5 mg/dL (8.4-10.2) 05/14/19 08:58 Medications & Allergies - Medications Allergies/Adverse Reactions: Allergies aspirin Allergy (Verified 02/20/19 22:06) Unknown stomach cramps pork derived (porcine) Allergy (Verified 02/20/19 22:06) Rash venom-honey bee [bee venom (honey bee)] Allergy (Verified 02/20/19 22:06) Anaphylaxis Pork/Porcine Containing Products Adverse Reaction (Severe, Verified 02/20/19 22:06) Nausea,VOMITING Home Medications: Home Medications Medication Instructions Recorded Confirmed Last Taken Type Oxycodone HCl [oxyCODONE] 10 mg PO Q6H PRN #20 04/03/19 05/14/19 Unknown Rx AtorvaSTATin [Lipitor] 40 mg PO QHS 05/10/19 05/10/19 05/09/19 History Clonidine HCl [Catapres] 0.3 mg PO BID 05/10/19 05/10/19 05/09/19 History amLODIPine [Norvasc] 20 mg PO DAILY 05/10/19 05/10/19 05/09/19 History Active Medications: Generic Name Dose Route Start Last Admin Trade Name Freq PRN Reason Stop Dose Admin Acetaminophen 650 mg 05/10/19 23:23 Tylenol PO Q4H PRN Pain MILD(1-3)/Fever >100.5/DOUGLAS Amlodipine Besylate 10 mg 05/11/19 10:00 05/14/19 09:56 Amlodipine PO Not Given DAILY [facility] Atorvastatin Calcium 40 mg 05/11/19 22:00 05/14/19 23:10 Lipitor PO 40 mg QHS BEAN Administration Clonidine HCl 0.3 mg 05/11/19 10:00 05/14/19 23:10 Catapres PO Not Given BID [facility] Epoetin Prashant 10,000 unit 05/11/19 09:12 05/13/19 21:00 Procrit SUB-Q 10,000 unit KATERYNA PRN Administration hemodialysis Sodium Chloride 100 mls @ 999 mls/hr 05/15/19 08:31 Nacl 0.9% IV KATERYNA PRN Hypotension Metoprolol Tartrate 12.5 mg 05/12/19 22:00 05/14/19 23:11 Metoprolol PO Not Given BID [facility] Morphine Sulfate 2 mg 05/11/19 23:07 05/14/19 12:31 Morphine IV 2 mg Q4H PRN Administration Pain, Moderate (5-10) Ondansetron HCl 4 mg 05/10/19 23:23 Zofran IV Q8H PRN Nausea And Vomiting Oxycodone/Acetaminophen 1 tab 05/10/19 23:23 05/15/19 06:14 Percocet 5/325 PO 1 tab Q6H PRN Administration Pain, Moderate (4-6) Sodium Chloride 10 ml 05/11/19 10:00 05/14/19 23:10 Sodium Chloride Flush Syringe 10 Ml IV 10 ml BID BEAN Administration Sodium Chloride 10 ml 05/10/19 23:23 Sodium Chloride Flush Syringe 10 Ml IV PRN PRN LINE FLUSH
[2019-05-15] MEDS: amLODIPine 10 MG TAB PO SCH (10:00)
[2019-05-15] MEDS: METOPROLOL TARTRATE 25 MG TAB PO SCH ×2 (10:06→21:30)
[2019-05-15] MEDS: cloNIDine 0.1 MG TAB PO SCH ×2 (10:06→21:31)
[2019-05-15] MEDS ORDERED: diphenhydrAMINE 50 MG/ML VIAL IV ONE (11:00)
[2019-05-15] MEDS ORDERED: SODIUM CHLORIDE*PRIMING MACHINE ONLY FOR DIALYSIS MC ONE (12:55)
[2019-05-15] MEDS: EPOETIN ALFA 10,000 UNIT/1 ML INJ SUB-Q PRN (13:10)
[2019-05-15] MEDS: MORPHINE 2 MG/1 ML INJ IV PRN (15:28)
--- NOTE | 2019-05-15 18:22 | Progress Note ---
Assessment and Plan Assessment and plan: Patient is 72-year-old man with a history of end-stage renal disease on dialysis, hypertension, CHF, A. fib, coronary artery disease, PTSD, COPD comes emergency room with complaints of shortness of breath, he missed dialysis for 1 week. The patient also complains of chest pain and gets relieved with pain medication. Patient had a stress test in January which showed no ischemia. Cardiology and nephrology consulted for further evaluation End-stage renal disease on dialysis - renal was consulted for dialysis Noncompliance, counseled Hyperkalemia, resolved, s/p meds Chest pain, atypical - followed cardiac enzymes, consulted cardiology - Request medical records from [facility] - Stress test done at [facility] 06/04 showed no significant ischemia. No further CV workup at this time per cardiology A. fib, rate controlled - Not on anticoagulation due to noncompliance and history of fall Coronary artery disease, continue home meds CHF, Chronic, systolic - volume removal via dialysis. - Echo 05/[address] [facility] showed moderate concentric LVH, EF 49%, LV moderately dilated, and trace AI. medical therapy with BB Hypertension, continue home meds PTSD, supportive care Thrombocytopenia, monitor CBC Physical debility - consulted PT, patient requesting placement Disposition: Pending placement patient medically stable, awaiting placement History Interval history: Shortness of breath, now resolved No new complaints Hospitalist Physical - Physical exam Narrative exam: Gen: Not in acute distress, lying in bed, malnourished HEENT: Normocephalic, atraumatic Neck: supple, no JVD Heart: S1 and S2 reg, no murmurs, rubs or gallop Lungs: Clear to auscultation bilaterally, Abd: soft, non tender, non distended, normal BS, Ext: Left forearm amputation, no clubbing, no cyanosis Neuro: Awake, alert, oriented X 3, - Constitutional Vitals: Temp Pulse Resp BP Pulse Ox 97.9 F 80 18 108/67 100 05/15/19 16:13 05/15/19 17:00 05/15/19 16:13 05/15/19 16:13 05/15/19 16:13 General appearance: Present: no acute distress Results - Labs CBC & Chem 7: 05/11/19 05:51 05/14/19 08:58 Labs: Laboratory Last Values WBC 6.1 K/mm3 (4.5-11.0) 05/11/19 05:51 RBC 3.14 M/mm3 (3.65-5.03) L 05/11/19 05:51 Hgb 9.6 gm/dl (11.8-15.2) L 05/11/19 05:51 Hct 30.7 % (35.5-45.6) L 05/11/19 05:51 MCV 98 fl (84-94) H 05/11/19 05:51 MCH 31 pg (28-32) 05/11/19 05:51 MCHC 31 % (32-34) L 05/11/19 05:51 RDW 15.6 % (13.2-15.2) H 05/11/19 05:51 Plt Count 131 K/mm3 (140-440) L 05/11/19 05:51 Lymph % (Auto) 18.3 % (13.4-35.0) 05/11/19 05:51 [place] % (Auto) 14.9 % (0.0-7.3) H 05/11/19 05:51 Eos % (Auto) 4.3 % (0.0-4.3) 05/11/19 05:51 Baso % (Auto) 2.6 % (0.0-1.8) H 05/11/19 05:51 Lymph # 1.1 K/mm3 (1.2-5.4) L 05/11/19 05:51 [place] # 0.9 K/mm3 (0.0-0.8) H 05/11/19 05:51 Eos # 0.3 K/mm3 (0.0-0.4) 05/11/19 05:51 Baso # 0.2 K/mm3 (0.0-0.1) H 05/11/19 05:51 Seg Neutrophils % 59.9 % (40.0-70.0) 05/11/19 05:51 Seg Neutrophils # 3.6 K/mm3 (1.8-7.7) 05/11/19 05:51 Sodium 137 mmol/L (137-145) 05/14/19 08:58 Potassium 4.4 mmol/L (3.6-5.0) 05/14/19 08:58 Chloride 98.4 mmol/L (98-107) 05/14/19 08:58 Carbon Dioxide 22 mmol/L (22-30) 05/14/19 08:58 Anion Gap 21 mmol/L 05/14/19 08:58 BUN 25 mg/dL (9-20) H 05/14/19 08:58 Creatinine 5.6 mg/dL (0.8-1.5) H 05/14/19 08:58 Estimated GFR 12 ml/min 05/14/19 08:58 BUN/Creatinine Ratio 4 % 05/14/19 08:58 Glucose 142 mg/dL (75-100) H 05/14/19 08:58 POC Glucose 132 (70-105) H 05/15/19 16:24 Calcium 8.5 mg/dL (8.4-10.2) 05/14/19 08:58 Total Creatine Kinase 62 units/L (55-170) 05/11/19 05:51 CK-MB (CK-2) 3.7 ng/mL (0.0-4.0) 05/11/19 05:51 CK-MB (CK-2) Rel Index 5.9 (0-4) H 05/11/19 05:51 Troponin T 0.512 ng/mL (0.00-0.029) H* 05/11/19 05:51 Triglycerides 91 mg/dL (2-149) 05/10/19 23:30 Cholesterol 64 mg/dL (50-199) 05/10/19 23:30 LDL Cholesterol Direct 20 mg/dL (50-130) L 05/10/19 23:30 HDL Cholesterol 23 mg/dL (40-59) L 05/10/19 23:30 Cholesterol/HDL Ratio 2.78 % 05/10/19 23:30 Hepatitis A IgM Ab Non-reactive (NonReactive) 05/11/19 10:10 Hep Bs Antigen Non-reactive (Negative) 05/11/19 10:10 Hep B Core IgM Ab Non-reactive (NonReactive) 05/11/19 10:10 Hepatitis C Antibody Reactive (NonReactive) A 05/11/19 10:10 Active Medications - Current Medications Current Medications: Generic Name Dose Route Start Last Admin Trade Name Freq PRN Reason Stop Dose Admin Acetaminophen 650 mg 05/10/19 23:23 Tylenol PO Q4H PRN Pain MILD(1-3)/Fever >100.5/DOUGLAS Amlodipine Besylate 10 mg 05/11/19 10:00 05/15/19 10:00 Amlodipine PO Not Given DAILY [facility] Atorvastatin Calcium 40 mg 05/11/19 22:00 05/14/19 23:10 Lipitor PO 40 mg QHS BEAN Administration Clonidine HCl 0.3 mg 05/11/19 10:00 05/15/19 10:06 Catapres PO Not Given BID [facility] Epoetin Prashant 10,000 unit 05/11/19 09:12 05/15/19 13:10 Procrit SUB-Q 10,000 unit KATERYNA PRN Administration hemodialysis Sodium Chloride 100 mls @ 999 mls/hr 05/15/19 08:31 Nacl 0.9% IV KATERYNA PRN Hypotension Metoprolol Tartrate 12.5 mg 05/12/19 22:00 05/15/19 10:06 Metoprolol PO Not Given BID [facility] Morphine Sulfate 2 mg 05/11/19 23:07 05/15/19 15:28 Morphine IV 2 mg Q4H PRN Administration Pain, Moderate (5-10) Ondansetron HCl 4 mg 05/10/19 23:23 Zofran IV Q8H PRN Nausea And Vomiting Oxycodone/Acetaminophen 1 tab 05/10/19 23:23 05/15/19 06:14 Percocet 5/325 PO 1 tab Q6H PRN Administration Pain, Moderate (4-6) Sodium Chloride 10 ml 05/11/19 10:00 05/15/19 10:07 Sodium Chloride Flush Syringe 10 Ml IV Not Given BID BEAN Sodium Chloride 10 ml 05/10/19 23:23 Sodium Chloride Flush Syringe 10 Ml IV PRN PRN LINE FLUSH Nutrition/Malnutrition Assess - Dietary Evaluation Nutrition/Malnutrition Findings: Nutrition Notes Start: 05/11/19 11:02 Freq: Status: Active Protocol: Document 05/15/19 09:57 LP (Rec: 05/15/19 10:02 LP [id number]) Nutrition Notes Initial or Follow up Reassessment Current Diagnosis CKD (stage V CKD),COPD, Hypertension,Heart Failure Other Pertinent Diagnosis HD (T,T,S), L lower arm amputation Current Diet Renal with Ensure clear BID Labs/Tests Reviewed Pertinent Medications Reviewed Height 5 ft 9 in Weight 48.6 kg [place] Body Weight (kg) 72.72 BMI 15.8 Weight change and time frame Wt change noted. Unable to weigh pt at time of visit. Weight Status Underweight Subjective/Other Information Pt states eating well and wanting more food. Pt food preferences noted. 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 No Is Patient Ambulatory and/or Out of Bed No REE-([facility]-confined to bed) 1483.884 Kcal/Kg value to use for calculation 35 Approximate Energy Requirements Using 1701 kcal/Kg Calculation Used for Recommendations Kcal/kg Additional Notes Pro needs: 72-90 g/day (1.2-1. 5 g/kg) Fluid needs: per MD Nutrition Intervention Change Diet Order: Continue renal diet Add Supplement/Snack (indicate name/kcal Ensure clear BID /protein ) Provides kCal: 480 Provides Protein (gm) 16 Goal #1 Meet at least 80% of kcal and protein needs Anticipated Discharge Needs: Renal diet with ONS PRN Follow-Up By: 05/22/19 Additional Comments Follow for stable intakes
[2019-05-16] MEDS: MORPHINE 2 MG/1 ML INJ IV PRN ×3 (01:22→22:02)
[2019-05-16] MEDS: METOPROLOL TARTRATE 25 MG TAB PO SCH ×3 (10:11→22:54)
[2019-05-16] MEDS: amLODIPine 10 MG TAB PO SCH (10:11)
[2019-05-16] MEDS: cloNIDine 0.1 MG TAB PO SCH ×3 (10:12→22:54)
[2019-05-16] MEDS ORDERED: POLYETHYLENE GLYCOL 3350 17 GM POWDER PO PRN (11:07)
--- NOTE | 2019-05-16 11:37 | Progress Note ---
Assessment and Plan 1. ESRD: Patient was admitted after he missed 2 sessions of hemodialysis. Continue hemodialysis three times a week. Hemodialysis: 05/11, 05/13, 05/15. 2. FEN: Hyperkalemia, improved. Metabolic acidosis, improved. Volume overload, UF with HD. Renal diet. Monitor. 3. Chest pain and Elevated Troponin: Seen by Cardiology. 4. Chronic pleural effusion. 5. A.fib: Rate controlled. 6. HTN. 7. Anemia: Epogen with HD. 8. PAD. Await placement. Examination: General appearance: well-developed, appears stated age, no distress HEENT: ATNC, ELENI, hearing intact, vision intact Neck: neck supple, trachea midline Respiratory: Decreased Breath Sounds Heart: irregularly irregular, S1S2, no murmurs Gastrointestinal: soft, BS heard, not tender, not distended Integumentary: no rash, warm and dry Neurologic: sleeping, arousable, no focal deficit Ext: No edema, L below elbow amputation Hemodialysis access: R IJ tunnel catheter, R arm AVF Subjective Date of service: 05/16/19 Interval history: Patient was seen and examined at the bedside. Objective - Vital Signs Vital signs: Vital Signs - 12hr 05/15/19 05/16/19 05/16/19 23:43 01:00 01:22 Temperature 98.6 F Pulse Rate 77 70 Respiratory 18 20 Rate Blood Pressure 118/82 O2 Sat by Pulse 100 Oximetry 05/16/19 05/16/19 05/16/19 03:47 07:37 09:04 Temperature 98.1 F 98.4 F Pulse Rate 71 Respiratory 18 18 Rate Blood Pressure 132/83 114/79 O2 Sat by Pulse 100 99 96 Oximetry 05/16/19 05/16/19 05/16/19 10:11 10:12 10:25 Temperature Pulse Rate 86 86 Respiratory 20 Rate Blood Pressure 114/79 114/79 O2 Sat by Pulse Oximetry - Lab 05/11/19 05:51 05/14/19 08:58 Most recent lab results Calcium 8.5 mg/dL (8.4-10.2) 05/14/19 08:58 Medications & Allergies - Medications Allergies/Adverse Reactions: Allergies aspirin Allergy (Verified 02/20/19 22:06) Unknown stomach cramps pork derived (porcine) Allergy (Verified 02/20/19 22:06) Rash venom-honey bee [bee venom (honey bee)] Allergy (Verified 02/20/19 22:06) Anaphylaxis Pork/Porcine Containing Products Adverse Reaction (Severe, Verified 02/20/19 22:06) Nausea,VOMITING Home Medications: Home Medications Medication Instructions Recorded Confirmed Last Taken Type Oxycodone HCl [oxyCODONE] 10 mg PO Q6H PRN #20 04/03/19 05/14/19 Unknown Rx AtorvaSTATin [Lipitor] 40 mg PO QHS 05/10/19 05/10/19 05/09/19 History Clonidine HCl [Catapres] 0.3 mg PO BID 05/10/19 05/10/19 05/09/19 History amLODIPine [Norvasc] 20 mg PO DAILY 05/10/19 05/10/19 05/09/19 History Active Medications: Generic Name Dose Route Start Last Admin Trade Name Freq PRN Reason Stop Dose Admin Acetaminophen 650 mg 05/10/19 23:23 Tylenol PO Q4H PRN Pain MILD(1-3)/Fever >100.5/DOUGLAS Amlodipine Besylate 10 mg 05/11/19 10:00 05/16/19 10:11 Amlodipine PO 10 mg DAILY [facility] Administration Atorvastatin Calcium 40 mg 05/11/19 22:00 05/15/19 21:29 Lipitor PO 40 mg QHS BEAN Administration Clonidine HCl 0.3 mg 05/11/19 10:00 05/16/19 10:12 Catapres PO 0.3 mg BID BEAN Administration Epoetin Prashant 10,000 unit 05/11/19 09:12 05/15/19 13:10 Procrit SUB-Q 10,000 unit KATERYNA PRN Administration hemodialysis Sodium Chloride 100 mls @ 999 mls/hr 05/15/19 08:31 Nacl 0.9% IV KATERYNA PRN Hypotension Metoprolol Tartrate 12.5 mg 05/12/19 22:00 05/16/19 10:11 Metoprolol PO 12.5 mg BID BEAN Administration Morphine Sulfate 2 mg 05/11/19 23:07 05/16/19 10:25 Morphine IV 2 mg Q4H PRN Administration Pain, Moderate (5-10) Ondansetron HCl 4 mg 05/10/19 23:23 Zofran IV Q8H PRN Nausea And Vomiting Oxycodone/Acetaminophen 1 tab 05/10/19 23:23 05/15/19 06:14 Percocet 5/325 PO 1 tab Q6H PRN Administration Pain, Moderate (4-6) Polyethylene Glycol 17 gm 05/16/19 11:07 Miralax 3350 PO BID PRN Constipation Sodium Chloride 10 ml 05/11/19 10:00 05/16/19 10:12 Sodium Chloride Flush Syringe 10 Ml IV 10 ml BID BEAN Administration Sodium Chloride 10 ml 05/10/19 23:23 Sodium Chloride Flush Syringe 10 Ml IV PRN PRN LINE FLUSH
--- NOTE | 2019-05-16 11:53 | Progress Note ---
Assessment and Plan Assessment and plan: Patient is 72-year-old man with a history of end-stage renal disease on dialysis, hypertension, CHF, A. fib, coronary artery disease, PTSD, COPD comes emergency room with complaints of shortness of breath, he missed dialysis for 1 week. The patient also complains of chest pain and gets relieved with pain medication. Patient had a stress test in January which showed no ischemia. Cardiology and nephrology consulted for further evaluation End-stage renal disease on dialysis - renal was consulted for dialysis Noncompliance, counseled Hyperkalemia, resolved, s/p meds Chest pain, atypical - followed cardiac enzymes, consulted cardiology - Request medical records from [facility] - Stress test done at [facility] 06/04 showed no significant ischemia. No further CV workup at this time per cardiology A. fib, rate controlled - Not on anticoagulation due to noncompliance and history of fall Coronary artery disease, continue home meds CHF, Chronic, systolic - volume removal via dialysis. - Echo 05/07 at [facility] showed moderate concentric LVH, EF 49%, LV moderately dilated, and trace AI. medical therapy with BB Hypertension, continue home meds PTSD, supportive care Thrombocytopenia, monitor CBC Physical debility - consulted PT, patient requesting placement Disposition: Pending placement patient medically stable, awaiting placement History Interval history: Shortness of breath, now resolved No new complaints Hospitalist Physical - Physical exam Narrative exam: Gen: Not in acute distress, lying in bed, malnourished HEENT: Normocephalic, atraumatic Neck: supple, no JVD Heart: S1 and S2 reg, no murmurs, rubs or gallop Lungs: Clear to auscultation bilaterally, Abd: soft, non tender, non distended, normal BS, Ext: Left forearm amputation, no clubbing, no cyanosis Neuro: Awake, alert, oriented X 3, - Constitutional Vitals: Temp Pulse Resp BP Pulse Ox 98.4 F 86 20 114/79 96 05/16/19 07:37 05/16/19 10:12 05/16/19 10:25 05/16/19 10:12 05/16/19 09:04 General appearance: Present: no acute distress Results - Labs CBC & Chem 7: 05/11/19 05:51 05/14/19 08:58 Labs: Laboratory Last Values WBC 6.1 K/mm3 (4.5-11.0) 05/11/19 05:51 RBC 3.14 M/mm3 (3.65-5.03) L 05/11/19 05:51 Hgb 9.6 gm/dl (11.8-15.2) L 05/11/19 05:51 Hct 30.7 % (35.5-45.6) L 05/11/19 05:51 MCV 98 fl (84-94) H 05/11/19 05:51 MCH 31 pg (28-32) 05/11/19 05:51 MCHC 31 % (32-34) L 05/11/19 05:51 RDW 15.6 % (13.2-15.2) H 05/11/19 05:51 Plt Count 131 K/mm3 (140-440) L 05/11/19 05:51 Lymph % (Auto) 18.3 % (13.4-35.0) 05/11/19 05:51 [place] % (Auto) 14.9 % (0.0-7.3) H 05/11/19 05:51 Eos % (Auto) 4.3 % (0.0-4.3) 05/11/19 05:51 Baso % (Auto) 2.6 % (0.0-1.8) H 05/11/19 05:51 Lymph # 1.1 K/mm3 (1.2-5.4) L 05/11/19 05:51 [place] # 0.9 K/mm3 (0.0-0.8) H 05/11/19 05:51 Eos # 0.3 K/mm3 (0.0-0.4) 05/11/19 05:51 Baso # 0.2 K/mm3 (0.0-0.1) H 05/11/19 05:51 Seg Neutrophils % 59.9 % (40.0-70.0) 05/11/19 05:51 Seg Neutrophils # 3.6 K/mm3 (1.8-7.7) 05/11/19 05:51 Sodium 137 mmol/L (137-145) 05/14/19 08:58 Potassium 4.4 mmol/L (3.6-5.0) 05/14/19 08:58 Chloride 98.4 mmol/L (98-107) 05/14/19 08:58 Carbon Dioxide 22 mmol/L (22-30) 05/14/19 08:58 Anion Gap 21 mmol/L 05/14/19 08:58 BUN 25 mg/dL (9-20) H 05/14/19 08:58 Creatinine 5.6 mg/dL (0.8-1.5) H 05/14/19 08:58 Estimated GFR 12 ml/min 05/14/19 08:58 BUN/Creatinine Ratio 4 % 05/14/19 08:58 Glucose 142 mg/dL (75-100) H 05/14/19 08:58 POC Glucose 94 (70-105) 05/16/19 07:49 Calcium 8.5 mg/dL (8.4-10.2) 05/14/19 08:58 Total Creatine Kinase 62 units/L (55-170) 05/11/19 05:51 CK-MB (CK-2) 3.7 ng/mL (0.0-4.0) 05/11/19 05:51 CK-MB (CK-2) Rel Index 5.9 (0-4) H 05/11/19 05:51 Troponin T 0.512 ng/mL (0.00-0.029) H* 05/11/19 05:51 Triglycerides 91 mg/dL (2-149) 05/10/19 23:30 Cholesterol 64 mg/dL (50-199) 05/10/19 23:30 LDL Cholesterol Direct 20 mg/dL (50-130) L 05/10/19 23:30 HDL Cholesterol 23 mg/dL (40-59) L 05/10/19 23:30 Cholesterol/HDL Ratio 2.78 % 05/10/19 23:30 Hepatitis A IgM Ab Non-reactive (NonReactive) 05/11/19 10:10 Hep Bs Antigen Non-reactive (Negative) 05/11/19 10:10 Hep B Core IgM Ab Non-reactive (NonReactive) 05/11/19 10:10 Hepatitis C Antibody Reactive (NonReactive) A 05/11/19 10:10 Active Medications - Current Medications Current Medications: Generic Name Dose Route Start Last Admin Trade Name Freq PRN Reason Stop Dose Admin Acetaminophen 650 mg 05/10/19 23:23 Tylenol PO Q4H PRN Pain MILD(1-3)/Fever >100.5/DOUGLAS Amlodipine Besylate 10 mg 05/11/19 10:00 05/16/19 10:11 Amlodipine PO 10 mg DAILY [facility] Administration Atorvastatin Calcium 40 mg 05/11/19 22:00 05/15/19 21:29 Lipitor PO 40 mg QHS BEAN Administration Clonidine HCl 0.3 mg 05/11/19 10:00 05/16/19 10:12 Catapres PO 0.3 mg BID BEAN Administration Epoetin Prashant 10,000 unit 05/11/19 09:12 05/15/19 13:10 Procrit SUB-Q 10,000 unit KATERYNA PRN Administration hemodialysis Sodium Chloride 100 mls @ 999 mls/hr 05/15/19 08:31 Nacl 0.9% IV KATERYNA PRN Hypotension Metoprolol Tartrate 12.5 mg 05/12/19 22:00 05/16/19 10:11 Metoprolol PO 12.5 mg BID BEAN Administration Morphine Sulfate 2 mg 05/11/19 23:07 05/16/19 10:25 Morphine IV 2 mg Q4H PRN Administration Pain, Moderate (5-10) Ondansetron HCl 4 mg 05/10/19 23:23 Zofran IV Q8H PRN Nausea And Vomiting Oxycodone/Acetaminophen 1 tab 05/10/19 23:23 05/15/19 06:14 Percocet 5/325 PO 1 tab Q6H PRN Administration Pain, Moderate (4-6) Polyethylene Glycol 17 gm 05/16/19 11:07 Miralax 3350 PO BID PRN Constipation Sodium Chloride 10 ml 05/11/19 10:00 05/16/19 10:12 Sodium Chloride Flush Syringe 10 Ml IV 10 ml BID BEAN Administration Sodium Chloride 10 ml 05/10/19 23:23 Sodium Chloride Flush Syringe 10 Ml IV PRN PRN LINE FLUSH Nutrition/Malnutrition Assess - Dietary Evaluation Nutrition/Malnutrition Findings: Nutrition Notes Start: 05/11/19 11:02 Freq: Status: Active Protocol: Document 05/15/19 09:57 LP (Rec: 05/15/19 10:02 LP [id number]) Nutrition Notes Initial or Follow up Reassessment Current Diagnosis CKD (stage V CKD),COPD, Hypertension,Heart Failure Other Pertinent Diagnosis HD (T,T,S), L lower arm amputation Current Diet Renal with Ensure clear BID Labs/Tests Reviewed Pertinent Medications Reviewed Height 5 ft 9 in Weight 48.6 kg [place] Body Weight (kg) 72.72 BMI 15.8 Weight change and time frame Wt change noted. Unable to weigh pt at time of visit. Weight Status Underweight Subjective/Other Information Pt states eating well and wanting more food. Pt food preferences noted. Percent of energy/protein needs met: 100%/100% Burn Absent Trauma Absent GI Symptoms Nausea Current % PO Negligible Minimum of two criteria Yes Energy Intake (severe) < or equal to 50% Estimated Energy Requirement > or equal to 5 days Muscle Mass Mild Depletion (non-severe) Reduced Receiving Checker Strength Measurably Reduced (severe) #1 Nutrition Diagnosis Malnutrition Diagnosis Progress(for reassessment Continues documentation) Is patient on ventilator? No Is Patient Ambulatory and/or Out of Bed No REE-([place]confined [facility] bed) 1483.884 Kcal/Kg value to use for calculation 35 Approximate Energy Requirements Using 1701 kcal/Kg Calculation Used for Recommendations Kcal/kg Additional Notes Pro needs: 72-90 g/day (1.2-1. 5 g/kg) Fluid needs: per MD Nutrition Intervention Change Diet Order: Continue renal diet Add Supplement/Snack (indicate name/kcal Ensure clear BID /protein ) Provides kCal: 480 Provides Protein (gm) 16 Goal #1 Meet at least 80% of kcal and protein needs Anticipated Discharge Needs: Renal diet with ONS PRN Follow-Up By: 05/22/19 Additional Comments Follow for stable intakes
[2019-05-16] MEDS: oxyCODONE /ACETAMINOPHEN 5-325MG TAB PO PRN (16:06)
[2019-05-16] MEDS: diphenhydrAMINE 25 MG CAP PO PRN (23:11)
[2019-05-17] MEDS: METOPROLOL TARTRATE 25 MG TAB PO SCH ×2 (10:46→21:41)
[2019-05-17] MEDS: MORPHINE 2 MG/1 ML INJ IV PRN ×2 (10:53→21:43)
--- NOTE | 2019-05-17 11:49 | Progress Note ---
Assessment and Plan Assessment and plan: Patient is 72-year-old man with a history of end-stage renal disease on dialysis, hypertension, CHF, A. fib, coronary artery disease, PTSD, COPD comes emergency room with complaints of shortness of breath, he missed dialysis for 1 week. The patient also complains of chest pain and gets relieved with pain medication. Patient had a stress test in January which showed no ischemia. Cardiology and nephrology consulted for further evaluation End-stage renal disease on dialysis - renal was consulted for dialysis Noncompliance, counseled Hyperkalemia, resolved, s/p meds Chest pain, atypical - followed cardiac enzymes, consulted cardiology - Request medical records from [facility] - Stress test done at [facility] 06/04 showed no significant ischemia. No further CV workup at this time per cardiology A. fib, rate controlled - Not on anticoagulation due to noncompliance and history of fall Coronary artery disease, continue home meds CHF, Chronic, systolic - volume removal via dialysis. - Echo 05/07 at [facility] showed moderate concentric LVH, EF 49%, LV moderately dilated, and trace AI. medical therapy with BB Hypertension, continue home meds PTSD, supportive care Thrombocytopenia, monitor CBC Physical debility - consulted PT, patient requesting placement Disposition: Pending placement patient medically stable, awaiting placement History Interval history: Shortness of breath, now resolved No new complaints Hospitalist Physical - Physical exam Narrative exam: Gen: Not in acute distress, lying in bed, malnourished HEENT: Normocephalic, atraumatic Neck: supple, no JVD Heart: S1 and S2 reg, no murmurs, rubs or gallop Lungs: Clear to auscultation bilaterally, Abd: soft, non tender, non distended, normal BS, Ext: Left forearm amputation, no clubbing, no cyanosis Neuro: Awake, alert, oriented X 3, - Constitutional Vitals: Temp Pulse Resp BP Pulse Ox 98.3 F 72 18 109/70 92 05/17/19 03:20 05/17/19 10:46 05/17/19 10:00 05/17/19 10:46 05/17/19 10:22 General appearance: Present: no acute distress Results - Labs CBC & Chem 7: 05/11/19 05:51 05/14/19 08:58 Labs: Laboratory Last Values WBC 6.1 K/mm3 (4.5-11.0) 05/11/19 05:51 RBC 3.14 M/mm3 (3.65-5.03) L 05/11/19 05:51 Hgb 9.6 gm/dl (11.8-15.2) L 05/11/19 05:51 Hct 30.7 % (35.5-45.6) L 05/11/19 05:51 MCV 98 fl (84-94) H 05/11/19 05:51 MCH 31 pg (28-32) 05/11/19 05:51 MCHC 31 % (32-34) L 05/11/19 05:51 RDW 15.6 % (13.2-15.2) H 05/11/19 05:51 Plt Count 131 K/mm3 (140-440) L 05/11/19 05:51 Lymph % (Auto) 18.3 % (13.4-35.0) 05/11/19 05:51 [place] % (Auto) 14.9 % (0.0-7.3) H 05/11/19 05:51 Eos % (Auto) 4.3 % (0.0-4.3) 05/11/19 05:51 Baso % (Auto) 2.6 % (0.0-1.8) H 05/11/19 05:51 Lymph # 1.1 K/mm3 (1.2-5.4) L 05/11/19 05:51 [place] # 0.9 K/mm3 (0.0-0.8) H 05/11/19 05:51 Eos # 0.3 K/mm3 (0.0-0.4) 05/11/19 05:51 Baso # 0.2 K/mm3 (0.0-0.1) H 05/11/19 05:51 Seg Neutrophils % 59.9 % (40.0-70.0) 05/11/19 05:51 Seg Neutrophils # 3.6 K/mm3 (1.8-7.7) 05/11/19 05:51 Sodium 137 mmol/L (137-145) 05/14/19 08:58 Potassium 4.4 mmol/L (3.6-5.0) 05/14/19 08:58 Chloride 98.4 mmol/L (98-107) 05/14/19 08:58 Carbon Dioxide 22 mmol/L (22-30) 05/14/19 08:58 Anion Gap 21 mmol/L 05/14/19 08:58 BUN 25 mg/dL (9-20) H 05/14/19 08:58 Creatinine 5.6 mg/dL (0.8-1.5) H 05/14/19 08:58 Estimated GFR 12 ml/min 05/14/19 08:58 BUN/Creatinine Ratio 4 % 05/14/19 08:58 Glucose 142 mg/dL (75-100) H 05/14/19 08:58 POC Glucose 111 (70-105) H 05/17/19 08:22 Calcium 8.5 mg/dL (8.4-10.2) 05/14/19 08:58 Total Creatine Kinase 62 units/L (55-170) 05/11/19 05:51 CK-MB (CK-2) 3.7 ng/mL (0.0-4.0) 05/11/19 05:51 CK-MB (CK-2) Rel Index 5.9 (0-4) H 05/11/19 05:51 Troponin T 0.512 ng/mL (0.00-0.029) H* 05/11/19 05:51 Triglycerides 91 mg/dL (2-149) 05/10/19 23:30 Cholesterol 64 mg/dL (50-199) 05/10/19 23:30 LDL Cholesterol Direct 20 mg/dL (50-130) L 05/10/19 23:30 HDL Cholesterol 23 mg/dL (40-59) L 05/10/19 23:30 Cholesterol/HDL Ratio 2.78 % 05/10/19 23:30 Hepatitis A IgM Ab Non-reactive (NonReactive) 05/11/19 10:10 Hep Bs Antigen Non-reactive (Negative) 05/11/19 10:10 Hep B Core IgM Ab Non-reactive (NonReactive) 05/11/19 10:10 Hepatitis C Antibody Reactive (NonReactive) A 05/11/19 10:10 Active Medications - Current Medications Current Medications: Generic Name Dose Route Start Last Admin Trade Name Freq PRN Reason Stop Dose Admin Acetaminophen 650 mg 05/10/19 23:23 Tylenol PO Q4H PRN Pain MILD(1-3)/Fever >100.5/DOUGLAS Atorvastatin Calcium 40 mg 05/11/19 22:00 05/16/19 22:02 Lipitor PO 40 mg QHS BEAN Administration Diphenhydramine HCl 25 mg 05/16/19 22:39 05/16/19 23:11 Benadryl PO 25 mg Q6H PRN Administration Itching Epoetin Prashant 10,000 unit 05/11/19 09:12 05/15/19 13:10 Procrit SUB-Q 10,000 unit KATERYNA PRN Administration hemodialysis Sodium Chloride 100 mls @ 999 mls/hr 05/15/19 08:31 Nacl 0.9% IV KATERYNA PRN Hypotension Metoprolol Tartrate 12.5 mg 05/12/19 22:00 05/17/19 10:46 Metoprolol PO 12.5 mg BID BEAN Administration Morphine Sulfate 2 mg 05/11/19 23:07 05/17/19 10:53 Morphine IV 2 mg Q4H PRN Administration Pain, Moderate (5-10) Ondansetron HCl 4 mg 05/10/19 23:23 Zofran IV Q8H PRN Nausea And Vomiting Oxycodone/Acetaminophen 1 tab 05/10/19 23:23 05/16/19 16:06 Percocet 5/325 PO 1 tab Q6H PRN Administration Pain, Moderate (4-6) Polyethylene Glycol 17 gm 05/16/19 11:07 Miralax 3350 PO BID PRN Constipation Sodium Chloride 10 ml 05/11/19 10:00 05/17/19 10:48 Sodium Chloride Flush Syringe 10 Ml IV 10 ml BID BEAN Administration Sodium Chloride 10 ml 05/10/19 23:23 Sodium Chloride Flush Syringe 10 Ml IV PRN PRN LINE FLUSH Nutrition/Malnutrition Assess - Dietary Evaluation Nutrition/Malnutrition Findings: Nutrition Notes Start: 05/11/19 11:02 Freq: Status: Active Protocol: Document 05/15/19 09:57 LP (Rec: 05/15/19 10:02 LP [email or web address]) Nutrition Notes Initial or Follow up Reassessment Current Diagnosis CKD (stage V CKD),COPD, Hypertension,Heart Failure Other Pertinent Diagnosis HD (T,T,S), L lower arm amputation Current Diet Renal with Ensure clear BID Labs/Tests Reviewed Pertinent Medications Reviewed Height 5 ft 9 in Weight 48.6 kg [place] Body Weight (kg) 72.72 BMI 15.8 Weight change and time frame Wt change noted. Unable to weigh pt at time of visit. Weight Status Underweight Subjective/Other Information Pt states eating well and wanting more food. Pt food preferences noted. Percent of energy/protein needs met: 100%/100% Burn Absent Trauma Absent GI Symptoms Nausea Current % PO Negligible Minimum of two criteria Yes Energy Intake (severe) < or equal to 50% Estimated Energy Requirement > or equal to 5 days Muscle Mass Mild Depletion (non-severe) Reduced Dispensing Optician Strength Measurably Reduced (severe) #1 Nutrition Diagnosis Malnutrition Diagnosis Progress(for reassessment Continues documentation) Is patient on ventilator? No Is Patient Ambulatory and/or Out of Bed No REE-([place]-confined to bed) 1483.884 Kcal/Kg value to use for calculation 35 Approximate Energy Requirements Using 1701 kcal/Kg Calculation Used for Recommendations Kcal/kg Additional Notes Pro needs: 72-90 g/day (1.2-1. 5 g/kg) Fluid needs: per MD Nutrition Intervention Change Diet Order: Continue renal diet Add Supplement/Snack (indicate name/kcal Ensure clear BID /protein ) Provides kCal: 480 Provides Protein (gm) 16 Goal #1 Meet at least 80% of kcal and protein needs Anticipated Discharge Needs: Renal diet with ONS PRN Follow-Up By: 05/22/19 Additional Comments Follow for stable intakes
[2019-05-18] MEDS: MORPHINE 2 MG/1 ML INJ IV PRN ×2 (05:40→18:02)
[2019-05-18] MEDS ORDERED: SODIUM CHLORIDE 0.9% 100 ML IV PRN (08:37)
[2019-05-18] MEDS ORDERED: SODIUM CHLORIDE*PRIMING MACHINE ONLY FOR DIALYSIS MC ONE (10:08)
[2019-05-18] MEDS: METOPROLOL TARTRATE 25 MG TAB PO SCH ×2 (10:14→21:12)
--- NOTE | 2019-05-18 11:37 | Progress Note ---
Assessment and Plan Assessment and plan: Patient is 72-year-old man with a history of end-stage renal disease on dialysis, hypertension, CHF, A. fib, coronary artery disease, PTSD, COPD comes emergency room with complaints of shortness of breath, he missed dialysis for 1 week. The patient also complains of chest pain and gets relieved with pain medication. Patient had a stress test in January which showed no ischemia. Cardiology and nephrology consulted for further evaluation End-stage renal disease on dialysis - renal was consulted for dialysis Noncompliance, counseled Hyperkalemia, resolved, s/p meds Chest pain, atypical - followed cardiac enzymes, consulted cardiology - Request medical records from [facility] - Stress test done at [facility] 06/04 showed no significant ischemia. No further CV workup at this time per cardiology A. fib, rate controlled - Not on anticoagulation due to noncompliance and history of fall Coronary artery disease, continue home meds CHF, Chronic, systolic - volume removal via dialysis. - Echo 05/07 at [facility] showed moderate concentric LVH, EF 49%, LV moderately dilated, and trace AI. medical therapy with BB Hypertension, continue home meds PTSD, supportive care Thrombocytopenia, monitor CBC Physical debility - consulted PT, patient requesting placement Disposition: Pending placement patient medically stable, awaiting placement History Interval history: Shortness of breath, now resolved No new complaints Hospitalist Physical - Physical exam Narrative exam: Gen: Not in acute distress, lying in bed, malnourished HEENT: Normocephalic, atraumatic Neck: supple, no JVD Heart: S1 and S2 reg, no murmurs, rubs or gallop Lungs: Clear to auscultation bilaterally, Abd: soft, non tender, non distended, normal BS, Ext: Left forearm amputation, no clubbing, no cyanosis Neuro: Awake, alert, oriented X 3, - Constitutional Vitals: Temp Pulse Resp BP Pulse Ox 97.1 F L 87 18 121/62 100 05/18/19 09:45 05/18/19 11:15 05/18/19 09:45 05/18/19 11:15 05/18/19 10:00 General appearance: Present: no acute distress Results - Labs CBC & Chem 7: 05/11/19 05:51 05/14/19 08:58 Labs: Laboratory Last Values WBC 6.1 K/mm3 (4.5-11.0) 05/11/19 05:51 RBC 3.14 M/mm3 (3.65-5.03) L 05/11/19 05:51 Hgb 9.6 gm/dl (11.8-15.2) L 05/11/19 05:51 Hct 30.7 % (35.5-45.6) L 05/11/19 05:51 MCV 98 fl (84-94) H 05/11/19 05:51 MCH 31 pg (28-32) 05/11/19 05:51 MCHC 31 % (32-34) L 05/11/19 05:51 RDW 15.6 % (13.2-15.2) H 05/11/19 05:51 Plt Count 131 K/mm3 (140-440) L 05/11/19 05:51 Lymph % (Auto) 18.3 % (13.4-35.0) 05/11/19 05:51 [place] % (Auto) 14.9 % (0.0-7.3) H 05/11/19 05:51 Eos % (Auto) 4.3 % (0.0-4.3) 05/11/19 05:51 Baso % (Auto) 2.6 % (0.0-1.8) H 05/11/19 05:51 Lymph # 1.1 K/mm3 (1.2-5.4) L 05/11/19 05:51 [place] # 0.9 K/mm3 (0.0-0.8) H 05/11/19 05:51 Eos # 0.3 K/mm3 (0.0-0.4) 05/11/19 05:51 Baso # 0.2 K/mm3 (0.0-0.1) H 05/11/19 05:51 Seg Neutrophils % 59.9 % (40.0-70.0) 05/11/19 05:51 Seg Neutrophils # 3.6 K/mm3 (1.8-7.7) 05/11/19 05:51 Sodium 137 mmol/L (137-145) 05/14/19 08:58 Potassium 4.4 mmol/L (3.6-5.0) 05/14/19 08:58 Chloride 98.4 mmol/L (98-107) 05/14/19 08:58 Carbon Dioxide 22 mmol/L (22-30) 05/14/19 08:58 Anion Gap 21 mmol/L 05/14/19 08:58 BUN 25 mg/dL (9-20) H 05/14/19 08:58 Creatinine 5.6 mg/dL (0.8-1.5) H 05/14/19 08:58 Estimated GFR 12 ml/min 05/14/19 08:58 BUN/Creatinine Ratio 4 % 05/14/19 08:58 Glucose 142 mg/dL (75-100) H 05/14/19 08:58 POC Glucose 90 (70-105) 05/18/19 07:40 Calcium 8.5 mg/dL (8.4-10.2) 05/14/19 08:58 Total Creatine Kinase 62 units/L (55-170) 05/11/19 05:51 CK-MB (CK-2) 3.7 ng/mL (0.0-4.0) 05/11/19 05:51 CK-MB (CK-2) Rel Index 5.9 (0-4) H 05/11/19 05:51 Troponin T 0.512 ng/mL (0.00-0.029) H* 05/11/19 05:51 Triglycerides 91 mg/dL (2-149) 05/10/19 23:30 Cholesterol 64 mg/dL (50-199) 05/10/19 23:30 LDL Cholesterol Direct 20 mg/dL (50-130) L 05/10/19 23:30 HDL Cholesterol 23 mg/dL (40-59) L 05/10/19 23:30 Cholesterol/HDL Ratio 2.78 % 05/10/19 23:30 Hepatitis A IgM Ab Non-reactive (NonReactive) 05/11/19 10:10 Hep Bs Antigen Non-reactive (Negative) 05/11/19 10:10 Hep B Core IgM Ab Non-reactive (NonReactive) 05/11/19 10:10 Hepatitis C Antibody Reactive (NonReactive) A 05/11/19 10:10 Active Medications - Current Medications Current Medications: Generic Name Dose Route Start Last Admin Trade Name Freq PRN Reason Stop Dose Admin Acetaminophen 650 mg 05/10/19 23:23 Tylenol PO Q4H PRN Pain MILD(1-3)/Fever >100.5/DOUGLAS Atorvastatin Calcium 40 mg 05/11/19 22:00 05/17/19 21:41 Lipitor PO 40 mg QHS BEAN Administration Diphenhydramine HCl 25 mg 05/16/19 22:39 05/16/19 23:11 Benadryl PO 25 mg Q6H PRN Administration Itching Epoetin Prashant 10,000 unit 05/11/19 09:12 05/15/19 13:10 Procrit SUB-Q 10,000 unit AKTERYNA PRN Administration hemodialysis Sodium Chloride 100 mls @ 999 mls/hr 05/18/19 08:37 Nacl 0.9% IV KATERYNA PRN Hypotension Metoprolol Tartrate 12.5 mg 05/12/19 22:00 05/18/19 10:14 Metoprolol PO Not Given BID [facility] Morphine Sulfate 2 mg 05/11/19 23:07 05/18/19 05:40 Morphine IV 2 mg Q4H PRN Administration Pain, Moderate (5-10) Ondansetron HCl 4 mg 05/10/19 23:23 Zofran IV Q8H PRN Nausea And Vomiting Oxycodone/Acetaminophen 1 tab 05/10/19 23:23 05/16/19 16:06 Percocet 5/325 PO 1 tab Q6H PRN Administration Pain, Moderate (4-6) Polyethylene Glycol 17 gm 05/16/19 11:07 Miralax 3350 PO BID PRN Constipation Sodium Chloride 10 ml 05/11/19 10:00 05/18/19 10:14 Sodium Chloride Flush Syringe 10 Ml IV Not Given BID BEAN Sodium Chloride 10 ml 05/10/19 23:23 05/18/19 05:43 Sodium Chloride Flush Syringe 10 Ml IV 10 ml PRN PRN Administration LINE FLUSH Nutrition/Malnutrition Assess - Dietary Evaluation Nutrition/Malnutrition Findings: Nutrition Notes Start: 05/11/19 11:02 Freq: Status: Active Protocol: Document 05/15/19 09:57 LP (Rec: 05/15/19 10:02 LP [id number]) Nutrition Notes Initial or Follow up Reassessment Current Diagnosis CKD (stage V CKD),COPD, Hypertension,Heart Failure Other Pertinent Diagnosis HD (T,T,S), L lower arm amputation Current Diet Renal with Ensure clear BID Labs/Tests Reviewed Pertinent Medications Reviewed Height 5 ft 9 in Weight 48.6 kg [place] Body Weight (kg) 72.72 BMI 15.8 Weight change and time frame Wt change noted. Unable to weigh pt at time of visit. Weight Status Underweight Subjective/Other Information Pt states eating well and wanting more food. Pt food preferences noted. Percent of energy/protein needs met: 100%/100% Burn Absent Trauma Absent GI Symptoms Nausea Current % PO Negligible Minimum of two criteria Yes Energy Intake (severe) < or equal to 50% Estimated Energy Requirement > or equal to 5 days Muscle Mass Mild Depletion (non-severe) Reduced Battery Charger Conveyor Line Strength Measurably Reduced (severe) #1 Nutrition Diagnosis Malnutrition Diagnosis Progress(for reassessment Continues documentation) Is patient on ventilator? No Is Patient Ambulatory and/or Out of Bed No REE-([facility]-confined to bed) 1483.884 Kcal/Kg value to use for calculation 35 Approximate Energy Requirements Using 1701 kcal/Kg Calculation Used for Recommendations Kcal/kg Additional Notes Pro needs: 72-90 g/day (1.2-1. 5 g/kg) Fluid needs: per MD Nutrition Intervention Change Diet Order: Continue renal diet Add Supplement/Snack (indicate name/kcal Ensure clear BID /protein ) Provides kCal: 480 Provides Protein (gm) 16 Goal #1 Meet at least 80% of kcal and protein needs Anticipated Discharge Needs: Renal diet with ONS PRN Follow-Up By: 05/22/19 Additional Comments Follow for stable intakes
[2019-05-18] MEDS: EPOETIN ALFA 10,000 UNIT/1 ML INJ SUB-Q PRN (13:26)
[2019-05-19] MEDS: MORPHINE 2 MG/1 ML INJ IV PRN ×3 (02:34→17:50)
[2019-05-19] MEDS: METOPROLOL TARTRATE 25 MG TAB PO SCH ×2 (11:31→22:14)
--- NOTE | 2019-05-19 13:19 | Progress Note ---
Assessment and Plan 1. ESRD: Patient was admitted after he missed 2 sessions of hemodialysis. Continue hemodialysis three times a week. Hemodialysis: 05/11, 05/13, 05/15, 05/18. 2. FEN: Hyperkalemia, improved. Metabolic acidosis, improved. Volume overload, UF with HD. Renal diet. Monitor. 3. Chest pain and Elevated Troponin: Seen by Cardiology. 4. Chronic pleural effusion. 5. A.fib: Rate controlled. 6. HTN. 7. Anemia: Epogen with HD. 8. PAD. Await placement. Examination: General appearance: well-developed, appears stated age, no distress HEENT: ATNC, ELENI, hearing intact, vision intact Neck: neck supple, trachea midline Respiratory: Decreased Breath Sounds Heart: irregularly irregular, S1S2, no murmurs Gastrointestinal: soft, BS heard, not tender, not distended Integumentary: no rash, warm and dry Neurologic: alert, able to move extremities Ext: No edema, L below elbow amputation Hemodialysis access: R IJ tunnel catheter, R arm AVF Subjective Date of service: 05/19/19 Interval history: Patient was seen and examined at the bedside. Doing ok. Objective - Vital Signs Vital signs: Vital Signs - 12hr 05/19/19 05/19/19 05/19/19 03:12 03:38 07:38 Temperature 98.7 F 98.3 F Pulse Rate 88 71 84 Pulse Rate [ Apical] Respiratory 18 18 Rate Blood Pressure 130/83 121/85 O2 Sat by Pulse 100 100 Oximetry 05/19/19 05/19/19 05/19/19 07:47 09:29 11:27 Temperature 97.9 F Pulse Rate 80 Pulse Rate [ 76 Apical] Respiratory 18 Rate Blood Pressure 129/81 O2 Sat by Pulse 100 100 Oximetry 05/19/19 11:31 Temperature Pulse Rate 78 Pulse Rate [ Apical] Respiratory Rate Blood Pressure 124/72 O2 Sat by Pulse Oximetry - Lab 05/11/19 05:51 05/14/19 08:58 Most recent lab results Calcium 8.5 mg/dL (8.4-10.2) 05/14/19 08:58 Medications & Allergies - Medications Allergies/Adverse Reactions: Allergies aspirin Allergy (Verified 02/20/19 22:06) Unknown stomach cramps pork derived (porcine) Allergy (Verified 02/20/19 22:06) Rash venom-honey bee [bee venom (honey bee)] Allergy (Verified 02/20/19 22:06) Anaphylaxis Pork/Porcine Containing Products Adverse Reaction (Severe, Verified 02/20/19 22:06) Nausea,VOMITING Home Medications: Home Medications Medication Instructions Recorded Confirmed Last Taken Type Oxycodone HCl [oxyCODONE] 10 mg PO Q6H PRN #20 04/03/19 05/14/19 Unknown Rx AtorvaSTATin [Lipitor] 40 mg PO QHS 05/10/19 05/10/19 05/09/19 History Clonidine HCl [Catapres] 0.3 mg PO BID 05/10/19 05/10/19 05/09/19 History amLODIPine [Norvasc] 20 mg PO DAILY 05/10/19 05/10/19 05/09/19 History Active Medications: Generic Name Dose Route Start Last Admin Trade Name Freq PRN Reason Stop Dose Admin Acetaminophen 650 mg 05/10/19 23:23 Tylenol PO Q4H PRN Pain MILD(1-3)/Fever >100.5/DOUGLAS Atorvastatin Calcium 40 mg 05/11/19 22:00 05/18/19 21:12 Lipitor PO 40 mg QHS BEAN Administration Diphenhydramine HCl 25 mg 05/16/19 22:39 05/16/19 23:11 Benadryl PO 25 mg Q6H PRN Administration Itching Epoetin Prashant 10,000 unit 05/11/19 09:12 05/18/19 13:26 Procrit SUB-Q 10,000 unit KATERYNA PRN Administration hemodialysis Sodium Chloride 100 mls @ 999 mls/hr 05/18/19 08:37 Nacl 0.9% IV KATERYNA PRN Hypotension Metoprolol Tartrate 12.5 mg 05/12/19 22:00 05/19/19 11:31 Metoprolol PO 12.5 mg BID BEAN Administration Morphine Sulfate 2 mg 05/11/19 23:07 05/19/19 02:34 Morphine IV 2 mg Q4H PRN Administration Pain, Moderate (5-10) Ondansetron HCl 4 mg 05/10/19 23:23 Zofran IV Q8H PRN Nausea And Vomiting Oxycodone/Acetaminophen 1 tab 05/10/19 23:23 05/16/19 16:06 Percocet 5/325 PO 1 tab Q6H PRN Administration Pain, Moderate (4-6) Polyethylene Glycol 17 gm 05/16/19 11:07 Miralax 3350 PO BID PRN Constipation Sodium Chloride 10 ml 05/11/19 10:00 05/19/19 10:31 Sodium Chloride Flush Syringe 10 Ml IV 10 ml BID BEAN Administration Sodium Chloride 10 ml 05/10/19 23:23 05/19/19 02:36 Sodium Chloride Flush Syringe 10 Ml IV 10 ml PRN PRN Administration LINE FLUSH
[2019-05-19] MEDS: diphenhydrAMINE 25 MG CAP PO PRN (17:05)
--- NOTE | 2019-05-19 17:23 | Progress Note ---
Assessment and Plan Assessment and plan: Patient is 72-year-old man with a history of end-stage renal disease on dialysis, hypertension, CHF, A. fib, coronary artery disease, PTSD, COPD comes emergency room with complaints of shortness of breath, he missed dialysis for 1 week. The patient also complains of chest pain and gets relieved with pain medication. Patient had a stress test in January which showed no ischemia. Patient medically stable, awaiting placement. End-stage renal disease on dialysis - renal was consulted for dialysis Noncompliance, counseled Hyperkalemia, resolved, s/p meds Chest pain, atypical - followed cardiac enzymes, consulted cardiology - Request medical records from [facility] - Stress test done at [facility] 06/04 showed no significant ischemia. No further CV workup at this time per cardiology A. fib, rate controlled - Not on anticoagulation due to noncompliance and history of fall Coronary artery disease, continue home meds CHF, Chronic, systolic - volume removal via dialysis. - Echo 05/07 at [facility] showed moderate concentric LVH, EF 49%, LV moderately dilated, and trace AI. medical therapy with BB Hypertension, continue home meds PTSD, supportive care Thrombocytopenia, monitor CBC Physical debility - consulted PT, patient requesting placement Disposition: Pending placement patient medically stable, awaiting placement History Interval history: Shortness of breath, now resolved No new complaints Hospitalist Physical - Physical exam Narrative exam: Gen: Not in acute distress, lying in bed, malnourished HEENT: Normocephalic, atraumatic Neck: supple, no JVD Heart: S1 and S2 reg, no murmurs, rubs or gallop Lungs: Clear to auscultation bilaterally, Abd: soft, non tender, non distended, normal BS, Ext: Left forearm amputation, no clubbing, no cyanosis Neuro: Awake, alert, oriented X 3, - Constitutional Vitals: Temp Pulse Resp BP Pulse Ox 98.4 F 92 H 18 113/68 100 05/19/19 15:41 05/19/19 15:41 05/19/19 15:41 05/19/19 15:41 05/19/19 15:41 General appearance: Present: no acute distress Results - Labs CBC & Chem 7: 05/11/19 05:51 05/14/19 08:58 Labs: Laboratory Last Values WBC 6.1 K/mm3 (4.5-11.0) 05/11/19 05:51 RBC 3.14 M/mm3 (3.65-5.03) L 05/11/19 05:51 Hgb 9.6 gm/dl (11.8-15.2) L 05/11/19 05:51 Hct 30.7 % (35.5-45.6) L 05/11/19 05:51 MCV 98 fl (84-94) H 05/11/19 05:51 MCH 31 pg (28-32) 05/11/19 05:51 MCHC 31 % (32-34) L 05/11/19 05:51 RDW 15.6 % (13.2-15.2) H 05/11/19 05:51 Plt Count 131 K/mm3 (140-440) L 05/11/19 05:51 Lymph % (Auto) 18.3 % (13.4-35.0) 05/11/19 05:51 [place] % (Auto) 14.9 % (0.0-7.3) H 05/11/19 05:51 Eos % (Auto) 4.3 % (0.0-4.3) 05/11/19 05:51 Baso % (Auto) 2.6 % (0.0-1.8) H 05/11/19 05:51 Lymph # 1.1 K/mm3 (1.2-5.4) L 05/11/19 05:51 [place] # 0.9 K/mm3 (0.0-0.8) H 05/11/19 05:51 Eos # 0.3 K/mm3 (0.0-0.4) 05/11/19 05:51 Baso # 0.2 K/mm3 (0.0-0.1) H 05/11/19 05:51 Seg Neutrophils % 59.9 % (40.0-70.0) 05/11/19 05:51 Seg Neutrophils # 3.6 K/mm3 (1.8-7.7) 05/11/19 05:51 Sodium 137 mmol/L (137-145) 05/14/19 08:58 Potassium 4.4 mmol/L (3.6-5.0) 05/14/19 08:58 Chloride 98.4 mmol/L (98-107) 05/14/19 08:58 Carbon Dioxide 22 mmol/L (22-30) 05/14/19 08:58 Anion Gap 21 mmol/L 05/14/19 08:58 BUN 25 mg/dL (9-20) H 05/14/19 08:58 Creatinine 5.6 mg/dL (0.8-1.5) H 05/14/19 08:58 Estimated GFR 12 ml/min 05/14/19 08:58 BUN/Creatinine Ratio 4 % 05/14/19 08:58 Glucose 142 mg/dL (75-100) H 05/14/19 08:58 POC Glucose 136 (70-105) H 05/19/19 15:49 Calcium 8.5 mg/dL (8.4-10.2) 05/14/19 08:58 Total Creatine Kinase 62 units/L (55-170) 05/11/19 05:51 CK-MB (CK-2) 3.7 ng/mL (0.0-4.0) 05/11/19 05:51 CK-MB (CK-2) Rel Index 5.9 (0-4) H 05/11/19 05:51 Troponin T 0.512 ng/mL (0.00-0.029) H* 05/11/19 05:51 Triglycerides 91 mg/dL (2-149) 05/10/19 23:30 Cholesterol 64 mg/dL (50-199) 05/10/19 23:30 LDL Cholesterol Direct 20 mg/dL (50-130) L 05/10/19 23:30 HDL Cholesterol 23 mg/dL (40-59) L 05/10/19 23:30 Cholesterol/HDL Ratio 2.78 % 05/10/19 23:30 Hepatitis A IgM Ab Non-reactive (NonReactive) 05/11/19 10:10 Hep Bs Antigen Non-reactive (Negative) 05/11/19 10:10 Hep B Core IgM Ab Non-reactive (NonReactive) 05/11/19 10:10 Hepatitis C Antibody Reactive (NonReactive) A 05/11/19 10:10 Active Medications - Current Medications Current Medications: Generic Name Dose Route Start Last Admin Trade Name Freq PRN Reason Stop Dose Admin Acetaminophen 650 mg 05/10/19 23:23 Tylenol PO Q4H PRN Pain MILD(1-3)/Fever >100.5/DOUGLAS Atorvastatin Calcium 40 mg 05/11/19 22:00 05/18/19 21:12 Lipitor PO 40 mg QHS BEAN Administration Diphenhydramine HCl 25 mg 05/16/19 22:39 05/19/19 17:05 Benadryl PO 25 mg Q6H PRN Administration Itching Epoetin Prashant 10,000 unit 05/11/19 09:12 05/18/19 13:26 Procrit SUB-Q 10,000 unit KATERYNA PRN Administration hemodialysis Sodium Chloride 100 mls @ 999 mls/hr 05/18/19 08:37 Nacl 0.9% IV KATERYNA PRN Hypotension Metoprolol Tartrate 12.5 mg 05/12/19 22:00 05/19/19 11:31 Metoprolol PO 12.5 mg BID BEAN Administration Morphine Sulfate 2 mg 05/11/19 23:07 05/19/19 13:42 Morphine IV 2 mg Q4H PRN Administration Pain, Moderate (5-10) Ondansetron HCl 4 mg 05/10/19 23:23 Zofran IV Q8H PRN Nausea And Vomiting Oxycodone/Acetaminophen 1 tab 05/10/19 23:23 05/16/19 16:06 Percocet 5/325 PO 1 tab Q6H PRN Administration Pain, Moderate (4-6) Polyethylene Glycol 17 gm 05/16/19 11:07 Miralax 3350 PO BID PRN Constipation Sodium Chloride 10 ml 05/11/19 10:00 05/19/19 10:31 Sodium Chloride Flush Syringe 10 Ml IV 10 ml BID BEAN Administration Sodium Chloride 10 ml 05/10/19 23:23 05/19/19 02:36 Sodium Chloride Flush Syringe 10 Ml IV 10 ml PRN PRN Administration LINE FLUSH Nutrition/Malnutrition Assess - Dietary Evaluation Nutrition/Malnutrition Findings: Nutrition Notes Start: 05/11/19 1 1:02 Freq: Status: Active Protocol: Document 05/15/19 09:57 LP (Rec: 05/15/19 10:02 LP [id number]) Nutrition Notes Initial or Follow up Reassessment Current Diagnosis CKD (stage V CKD),COPD, Hypertension,Heart Failure Other Pertinent Diagnosis HD (T,T,S), L lower arm amputation Current Diet Renal with Ensure clear BID Labs/Tests Reviewed Pertinent Medications Reviewed Height 5 ft 9 in Weight 48.6 kg [place] Body Weight (kg) 72.72 BMI 15.8 Weight change and time frame Wt change noted. Unable to weigh pt at time of visit. Weight Status Underweight Subjective/Other Information Pt states eating well and wanting more food. Pt food preferences noted. Percent of energy/protein needs met: 100%/100% Burn Absent Trauma Absent GI Symptoms Nausea Current % PO Negligible Minimum of two criteria Yes Energy Intake (severe) < or equal to 50% Estimated Energy Requirement > or equal to 5 days Muscle Mass Mild Depletion (non-severe) Reduced Inspector Balance Truing Strength Measurably Reduced (severe) #1 Nutrition Diagnosis Malnutrition Diagnosis Progress(for reassessment Continues documentation) Is patient on ventilator? No Is Patient Ambulatory and/or Out of Bed No REE-([place]-confined to bed) 1483.884 Kcal/Kg value to use for calculation 35 Approximate Energy Requirements Using 1701 kcal/Kg Calculation Used for Recommendations Kcal/kg Additional Notes Pro needs: 72-90 g/day (1.2-1. 5 g/kg) Fluid needs: per MD Nutrition Intervention Change Diet Order: Continue renal diet Add Supplement/Snack (indicate name/kcal Ensure clear BID /protein ) Provides kCal: 480 Provides Protein (gm) 16 Goal #1 Meet at least 80% of kcal and protein needs Anticipated Discharge Needs: Renal diet with ONS PRN Follow-Up By: 05/22/19 Additional Comments Follow for stable intakes
[2019-05-20] MEDS: MORPHINE 2 MG/1 ML INJ IV PRN ×3 (00:47→17:35)
[2019-05-20] MEDS: diphenhydrAMINE 25 MG CAP PO PRN (00:49)
[2019-05-20 08:17] LABS: Hematocrit 28.9 % (35.5-45.6); Hemoglobin 9.6 gm/dl (11.8-15.2); Mean Corpuscular HGB Conc 33 % (32-34); Mean Corpuscular Volume 96 fl (84-94); Red Blood Count 3.01 M/mm3 (3.65-5.03); Red Cell Distribution Width 16.8 % (13.2-15.2)
[2019-05-20 08:36] LABS: Platelet Count 86 K/mm3 (140-440)
[2019-05-20 08:40] LABS: Calcium 8.3 mg/dL (8.4-10.2)
[2019-05-20] MEDS: METOPROLOL TARTRATE 25 MG TAB PO SCH ×2 (11:24→21:36)
--- NOTE | 2019-05-20 13:55 | Progress Note ---
Assessment and Plan 1. ESRD: Patient was admitted after he missed 2 sessions of hemodialysis. Continue hemodialysis three times a week, TTS schedule. Hemodialysis: 05/11, 05/13, 05/15, 05/18. 2. FEN: Hyperkalemia, improved. Metabolic acidosis, improved. Volume overload, UF with HD. Renal diet. Monitor. 3. Chest pain and Elevated Troponin: Seen by Cardiology. 4. Chronic pleural effusion. 5. A.fib: Rate controlled. 6. HTN. 7. Anemia: Epogen with HD. 8. PAD. Await placement. Examination: General appearance: well-developed, appears stated age, no distress HEENT: ATNC, ELENI, hearing intact, vision intact Neck: neck supple, trachea midline Respiratory: Decreased Breath Sounds Heart: irregularly irregular, S1S2, no murmurs Gastrointestinal: soft, BS heard, not tender, not distended Integumentary: no rash, warm and dry Neurologic: alert, able to move extremities Ext: No edema, L below elbow amputation Hemodialysis access: R IJ tunnel catheter, R arm AVF Subjective Date of service: 05/20/19 Interval history: Patient was seen and examined at the bedside. Doing ok. Objective - Vital Signs Vital signs: Vital Signs - 12hr 05/20/19 05/20/19 05/20/19 03:33 04:04 07:46 Temperature 98.6 F Pulse Rate 84 99 H Respiratory 20 Rate Blood Pressure 128/84 O2 Sat by Pulse 100 100 Oximetry 05/20/19 05/20/19 08:57 11:24 Temperature 98.4 F Pulse Rate 85 Respiratory 18 18 Rate Blood Pressure 138/87 O2 Sat by Pulse 100 Oximetry - Lab 05/20/19 07:12 05/20/19 07:12 Most recent lab results Calcium 8.3 mg/dL (8.4-10.2) L 05/20/19 07:12 Medications & Allergies - Medications Allergies/Adverse Reactions: Allergies aspirin Allergy (Verified 02/20/19 22:06) Unknown stomach cramps pork derived (porcine) Allergy (Verified 02/20/19 22:06) Rash venom-honey bee [bee venom (honey bee)] Allergy (Verified 02/20/19 22:06) Anaphylaxis Pork/Porcine Containing Products Adverse Reaction (Severe, Verified 02/20/19 22:06) Nausea,VOMITING Home Medications: Home Medications Medication Instructions Recorded Confirmed Last Taken Type Oxycodone HCl [oxyCODONE] 10 mg PO Q6H PRN #20 04/03/19 05/14/19 Unknown Rx AtorvaSTATin [Lipitor] 40 mg PO QHS 05/10/19 05/10/19 05/09/19 History Clonidine HCl [Catapres] 0.3 mg PO BID 05/10/19 05/10/19 05/09/19 History amLODIPine [Norvasc] 20 mg PO DAILY 05/10/19 05/10/19 05/09/19 History Active Medications: Generic Name Dose Route Start Last Admin Trade Name Freq PRN Reason Stop Dose Admin Acetaminophen 650 mg 05/10/19 23:23 Tylenol PO Q4H PRN Pain MILD(1-3)/Fever >100.5/DOUGLAS Atorvastatin Calcium 40 mg 05/11/19 22:00 05/19/19 22:14 Lipitor PO 40 mg QHS BEAN Administration Diphenhydramine HCl 25 mg 05/16/19 22:39 05/20/19 00:49 Benadryl PO 25 mg Q6H PRN Administration Itching Epoetin Prashant 10,000 unit 05/11/19 09:12 05/18/19 13:26 Procrit SUB-Q 10,000 unit KATERYNA PRN Administration hemodialysis Sodium Chloride 100 mls @ 999 mls/hr 05/18/19 08:37 Nacl 0.9% IV KATERYNA PRN Hypotension Metoprolol Tartrate 12.5 mg 05/12/19 22:00 05/20/19 11:24 Metoprolol PO 12.5 mg BID BEAN Administration Morphine Sulfate 2 mg 05/11/19 23:07 05/20/19 11:24 Morphine IV 2 mg Q4H PRN Administration Pain, Moderate (5-10) Ondansetron HCl 4 mg 05/10/19 23:23 Zofran IV Q8H PRN Nausea And Vomiting Oxycodone/Acetaminophen 1 tab 05/10/19 23:23 05/16/19 16:06 Percocet 5/325 PO 1 tab Q6H PRN Administration Pain, Moderate (4-6) Polyethylene Glycol 17 gm 05/16/19 11:07 Miralax 3350 PO BID PRN Constipation Sodium Chloride 10 ml 05/11/19 10:00 05/20/19 11:33 Sodium Chloride Flush Syringe 10 Ml IV 10 ml BID BEAN Administration Sodium Chloride 10 ml 05/10/19 23:23 05/19/19 02:36 Sodium Chloride Flush Syringe 10 Ml IV 10 ml PRN PRN Administration LINE FLUSH
--- NOTE | 2019-05-20 14:49 | Progress Note ---
Assessment and Plan Assessment and plan: End-stage renal disease on dialysis -Renal following Noncompliance, counseled Hyperkalemia, resolved, s/p meds Chest pain, atypical - followed cardiac enzymes, consulted cardiology - Request medical records from [facility] - Stress test done at [facility] 06/04 showed no significant ischemia. No further CV workup at this time per cardiology -[facility] 01/2017 revealed non-obstructive, single vessel disease of the proximal LAD recommended for medical therapy. A. fib, rate controlled - Not on anticoagulation due to noncompliance and history of fall Coronary artery disease, continue home meds CHF, Chronic, systolic - volume removal via dialysis. - Echo 05/07 at [facility] showed moderate concentric LVH, EF 49%, LV moderately dilated, and trace AI. medical therapy with BB Hypertension, continue home meds PTSD, supportive care Thrombocytopenia, monitor CBC Physical debility - consulted PT, patient requesting placement Disposition: Pending placement patient medically stable, awaiting placement History Interval history: Patient is 72-year-old man with a history of end-stage renal disease on dialysis, hypertension, CHF, A. fib, coronary artery disease, PTSD, COPD comes emergency room with complaints of shortness of breath, he missed dialysis for 1 week. The patient also complains of chest pain and gets relieved with pain medication. Patient had a stress test in January which showed no ischemia. Patient medically stable, awaiting placement. Hospitalist Physical - Constitutional Vitals: Temp Pulse Resp BP Pulse Ox 98.4 F 85 18 138/87 100 05/20/19 08:57 05/20/19 08:57 05/20/19 11:24 05/20/19 08:57 05/20/19 08:57 General appearance: Present: no acute distress - EENT Eyes: Present: PERRL, EOM intact ENT: hearing intact, clear oral mucosa, dentition normal - Neck Neck: Present: supple, normal ROM - Respiratory Respiratory effort: normal Respiratory: bilateral: CTA - Cardiovascular Rhythm: regular Heart Sounds: Present: S1 & S2. Absent: gallop, rub - Extremities Extremities: no ischemia, No edema, Full ROM - Abdominal General gastrointestinal: soft, non-tender, non-distended, normal bowel sounds - Integumentary Integumentary: Present: clear, warm, dry - Neurologic Neurologic: CNII-XII intact, moves all extremities Results - Labs CBC & Chem 7: 05/20/19 07:12 05/20/19 07:12 Labs: Laboratory Last Values WBC 5.0 K/mm3 (4.5-11.0) 05/20/19 07:12 RBC 3.01 M/mm3 (3.65-5.03) L 05/20/19 07:12 Hgb 9.6 gm/dl (11.8-15.2) L 05/20/19 07:12 Hct 28.9 % (35.5-45.6) L 05/20/19 07:12 MCV 96 fl (84-94) H 05/20/19 07:12 MCH 32 pg (28-32) 05/20/19 07:12 MCHC 33 % (32-34) 05/20/19 07:12 RDW 16.8 % (13.2-15.2) H 05/20/19 07:12 Plt Count 86 K/mm3 (140-440) L 05/20/19 07:12 Lymph % (Auto) 18.3 % (13.4-35.0) 05/11/19 05:51 [place] % (Auto) 14.9 % (0.0-7.3) H 05/11/19 05:51 Eos % (Auto) 4.3 % (0.0-4.3) 05/11/19 05:51 Baso % (Auto) 2.6 % (0.0-1.8) H 05/11/19 05:51 Lymph # 1.1 K/mm3 (1.2-5.4) L 05/11/19 05:51 [place] # 0.9 K/mm3 (0.0-0.8) H 05/11/19 05:51 Eos # 0.3 K/mm3 (0.0-0.4) 05/11/19 05:51 Baso # 0.2 K/mm3 (0.0-0.1) H 05/11/19 05:51 Seg Neutrophils % 59.9 % (40.0-70.0) 05/11/19 05:51 Seg Neutrophils # 3.6 K/mm3 (1.8-7.7) 05/11/19 05:51 Sodium 137 mmol/L (137-145) 05/20/19 07:12 Potassium 5.0 mmol/L (3.6-5.0) 05/20/19 07:12 Chloride 96.3 mmol/L (98-107) L 05/20/19 07:12 Carbon Dioxide 22 mmol/L (22-30) 05/20/19 07:12 Anion Gap 24 mmol/L 05/20/19 07:12 BUN 39 mg/dL (9-20) H 05/20/19 07:12 Creatinine 6.3 mg/dL (0.8-1.5) H 05/20/19 07:12 Estimated GFR 11 ml/min 05/20/19 07:12 BUN/Creatinine Ratio 6 % 05/20/19 07:12 Glucose 81 mg/dL (75-100) 05/20/19 07:12 POC Glucose 106 (70-105) H 05/20/19 12:54 Calcium 8.3 mg/dL (8.4-10.2) L 05/20/19 07:12 Total Creatine Kinase 62 units/L (55-170) 05/11/19 05:51 CK-MB (CK-2) 3.7 ng/mL (0.0-4.0) 05/11/19 05:51 CK-MB (CK-2) Rel Index 5.9 (0-4) H 05/11/19 05:51 Troponin T 0.512 ng/mL (0.00-0.029) H* 05/11/19 05:51 Triglycerides 91 mg/dL (2-149) 05/10/19 23:30 Cholesterol 64 mg/dL (50-199) 05/10/19 23:30 LDL Cholesterol Direct 20 mg/dL (50-130) L 05/10/19 23:30 HDL Cholesterol 23 mg/dL (40-59) L 05/10/19 23:30 Cholesterol/HDL Ratio 2.78 % 05/10/19 23:30 Hepatitis A IgM Ab Non-reactive (NonReactive) 05/11/19 10:10 Hep Bs Antigen Non-reactive (Negative) 05/11/19 10:10 Hep B Core IgM Ab Non-reactive (NonReactive) 05/11/19 10:10 Hepatitis C Antibody Reactive (NonReactive) A 05/11/19 10:10 Active Medications - Current Medications Current Medications: Generic Name Dose Route Start Last Admin Trade Name Freq PRN Reason Stop Dose Admin Acetaminophen 650 mg 05/10/19 23:23 Tylenol PO Q4H PRN Pain MILD(1-3)/Fever >100.5/DOUGLAS Atorvastatin Calcium 40 mg 05/11/19 22:00 05/19/19 22:14 Lipitor PO 40 mg QHS BEAN Administration Diphenhydramine HCl 25 mg 05/16/19 22:39 05/20/19 00:49 Benadryl PO 25 mg Q6H PRN Administration Itching Diphenhydramine HCl 25 mg 05/20/19 15:00 Benadryl IV Q48HR PRN Itching Epoetin Prashant 10,000 unit 05/11/19 09:12 05/18/19 13:26 Procrit SUB-Q 10,000 unit KATERYNA PRN Administration hemodialysis Sodium Chloride 100 mls @ 999 mls/hr 05/18/19 08:37 Nacl 0.9% IV KATERYNA PRN Hypotension Metoprolol Tartrate 12.5 mg 05/12/19 22:00 05/20/19 11:24 Metoprolol PO 12.5 mg BID BEAN Administration Morphine Sulfate 2 mg 05/11/19 23:07 05/20/19 11:24 Morphine IV 2 mg Q4H PRN Administration Pain, Moderate (5-10) Ondansetron HCl 4 mg 05/10/19 23:23 Zofran IV Q8H PRN Nausea And Vomiting Oxycodone/Acetaminophen 1 tab 05/10/19 23:23 05/16/19 16:06 Percocet 5/325 PO 1 tab Q6H PRN Administration Pain, Moderate (4-6) Polyethylene Glycol 17 gm 05/16/19 11:07 Miralax 3350 PO BID PRN Constipation Sodium Chloride 10 ml 05/11/19 10:00 05/20/19 11:33 Sodium Chloride Flush Syringe 10 Ml IV 10 ml BID BEAN Administration Sodium Chloride 10 ml 05/10/19 23:23 05/19/19 02:36 Sodium Chloride Flush Syringe 10 Ml IV 10 ml PRN PRN Administration LINE FLUSH Nutrition/Malnutrition Assess - Dietary Evaluation Nutrition/Malnutrition Findings: Nutrition Notes Start: 05/11/19 11:02 Freq: Status: Active Protocol: Document 05/15/19 09:57 LP (Rec: 05/15/19 10:02 LP [id number]) Nutrition Notes Initial or Follow up Reassessment Current Diagnosis CKD (stage V CKD),COPD, Hypertension,Heart Failure Other Pertinent Diagnosis HD (T,T,S), L lower arm amputation Current Diet Renal with Ensure clear BID Labs/Tests Reviewed Pertinent Medications Reviewed Height 5 ft 9 in Weight 48.6 kg [place] Body Weight (kg) 72.72 BMI 15.8 Weight change and time frame Wt change noted. Unable to weigh pt at time of visit. Weight Status Underweight Subjective/Other Information Pt states eating well and wanting more food. Pt food preferences noted. Percent of energy/protein needs met: 100%/100% Burn Absent Trauma Absent GI Symptoms Nausea Current % PO Negligible Minimum of two criteria Yes Energy Intake (severe) < or equal to 50% Estimated Energy Requirement > or equal to 5 days Muscle Mass Mild Depletion (non-severe) Reduced Development Trainer Strength Measurably Reduced (severe) #1 Nutrition Diagnosis Malnutrition Diagnosis Progress(for reassessment Continues documentation) Is patient on ventilator? No Is Patient Ambulatory and/or Out of Bed No REE-([facility]-confined to bed) 1483.884 Kcal/Kg value to use for calculation 35 Approximate Energy Requirements Using 1701 kcal/Kg Calculation Used for Recommendations Kcal/kg Additional Notes Pro needs: 72-90 g/day (1.2-1. 5 g/kg) Fluid needs: per MD Nutrition Intervention Change Diet Order: Continue renal diet Add Supplement/Snack (indicate name/kcal Ensure clear BID /protein ) Provides kCal: 480 Provides Protein (gm) 16 Goal #1 Meet at least 80% of kcal and protein needs Anticipated Discharge Needs: Renal diet with ONS PRN Follow-Up By: 05/22/19 Additional Comments Follow for stable intakes
[2019-05-20] MEDS: diphenhydrAMINE 50 MG/ML VIAL IV PRN (17:37)
[2019-05-21] MEDS: oxyCODONE /ACETAMINOPHEN 5-325MG TAB PO PRN ×2 (00:21→09:55)
[2019-05-21] MEDS: diphenhydrAMINE 25 MG CAP PO PRN (00:21)
--- NOTE | 2019-05-21 09:15 | Progress Note ---
Assessment and Plan 1. ESRD: Patient was admitted after he missed 2 sessions of hemodialysis. Continue hemodialysis three times a week, TTS schedule. Hemodialysis: 05/11, 05/13, 05/15, 05/18, 05/21. 2. FEN: Hyperkalemia, improved. Metabolic acidosis, improved. Volume overload, UF with HD. Renal diet. Monitor. 3. Chest pain and Elevated Troponin: Seen by Cardiology. 4. Chronic pleural effusion. 5. A.fib: Rate controlled. 6. HTN. 7. Anemia: Epogen with HD. 8. PAD. Await placement. Examination: General appearance: well-developed, appears stated age, no distress HEENT: ATNC, ELENI, hearing intact, vision intact Neck: neck supple, trachea midline Respiratory: Decreased Breath Sounds Heart: irregularly irregular, S1S2, no murmurs Gastrointestinal: soft, BS heard, not tender, not distended Integumentary: no rash, warm and dry Neurologic: alert, able to move extremities Ext: No edema, L below elbow amputation Hemodialysis access: R IJ tunnel catheter, R arm AVF Subjective Date of service: 05/21/19 Interval history: Patient was seen and examined at the bedside. Doing ok. Objective - Vital Signs Vital signs: Vital Signs - 12hr 05/20/19 05/21/19 05/21/19 22:54 00:06 00:21 Temperature 98.8 F Pulse Rate 77 Respiratory 18 18 Rate Blood Pressure 122/81 O2 Sat by Pulse 100 100 Oximetry 05/21/19 04:16 Temperature 98.8 F Pulse Rate 83 Respiratory 18 Rate Blood Pressure 115/79 O2 Sat by Pulse 98 Oximetry - Lab 05/20/19 07:12 05/20/19 07:12 Most recent lab results Calcium 8.3 mg/dL (8.4-10.2) L 05/20/19 07:12 Medications & Allergies - Medications Allergies/Adverse Reactions: Allergies aspirin Allergy (Verified 02/20/19 22:06) Unknown stomach cramps pork derived (porcine) Allergy (Verified 02/20/19 22:06) Rash venom-honey bee [bee venom (honey bee)] Allergy (Verified 02/20/19 22:06) Anaphylaxis Pork/Porcine Containing Products Adverse Reaction (Severe, Verified 02/20/19 22:06) Nausea,VOMITING Home Medications: Home Medications Medication Instructions Recorded Confirmed Last Taken Type Oxycodone HCl [oxyCODONE] 10 mg PO Q6H PRN #20 04/03/19 05/14/19 Unknown Rx AtorvaSTATin [Lipitor] 40 mg PO QHS 05/10/19 05/10/19 05/09/19 History Clonidine HCl [Catapres] 0.3 mg PO BID 05/10/19 05/10/19 05/09/19 History amLODIPine [Norvasc] 20 mg PO DAILY 05/10/19 05/10/19 05/09/19 History Active Medications: Generic Name Dose Route Start Last Admin Trade Name Freq PRN Reason Stop Dose Admin Acetaminophen 650 mg 05/10/19 23:23 Tylenol PO Q4H PRN Pain MILD(1-3)/Fever >100.5/DOUGLAS Atorvastatin Calcium 40 mg 05/11/19 22:00 05/20/19 21:37 Lipitor PO 40 mg QHS BEAN Administration Diphenhydramine HCl 25 mg 05/16/19 22:39 05/21/19 00:21 Benadryl PO 25 mg Q6H PRN Administration Itching Diphenhydramine HCl 25 mg 05/20/19 15:00 05/20/19 17:37 Benadryl IV 25 mg Q48HR PRN Administration Itching Epoetin Prashant 10,000 unit 05/11/19 09:12 05/18/19 13:26 Procrit SUB-Q 10,000 unit KATERYNA PRN Administration hemodialysis Sodium Chloride 100 mls @ 999 mls/hr 05/18/19 08:37 Nacl 0.9% IV KATERYNA PRN Hypotension Metoprolol Tartrate 12.5 mg 05/12/19 22:00 05/20/19 21:36 Metoprolol PO 12.5 mg BID BEAN Administration Morphine Sulfate 2 mg 05/11/19 23:07 05/20/19 17:35 Morphine IV 2 mg Q4H PRN Administration Pain, Moderate (5-10) Ondansetron HCl 4 mg 05/10/19 23:23 Zofran IV Q8H PRN Nausea And Vomiting Oxycodone/Acetaminophen 1 tab 05/10/19 23:23 05/21/19 00:21 Percocet 5/325 PO 1 tab Q6H PRN Administration Pain, Moderate (4-6) Polyethylene Glycol 17 gm 05/16/19 11:07 Miralax 3350 PO BID PRN Constipation Sodium Chloride 10 ml 05/11/19 10:00 05/20/19 21:38 Sodium Chloride Flush Syringe 10 Ml IV 10 ml BID BEAN Administration Sodium Chloride 10 ml 05/10/19 23:23 05/19/19 02:36 Sodium Chloride Flush Syringe 10 Ml IV 10 ml PRN PRN Administration LINE FLUSH
--- NOTE | 2019-05-21 15:34 | Progress Note ---
Assessment and Plan Assessment and plan: End-stage renal disease on dialysis -Renal following Noncompliance, counseled Hyperkalemia, resolved, s/p meds Chest pain, atypical - followed cardiac enzymes, consulted cardiology - Request medical records from [facility] - Stress test done at [facility] 06/04 showed no significant ischemia. No further CV workup at this time per cardiology -[facility] 01/2017 revealed non-obstructive, single vessel disease of the proximal LAD recommended for medical therapy. A. fib, rate controlled - Not on anticoagulation due to noncompliance and history of fall Coronary artery disease, continue home meds CHF, Chronic, systolic - volume removal via dialysis. - Echo 05/07 at [facility] showed moderate concentric LVH, EF 49%, LV moderately dilated, and trace AI. medical therapy with BB Hypertension, continue home meds PTSD, supportive care Thrombocytopenia, monitor CBC Physical debility - consulted PT, patient requesting placement Disposition: Pending placement patient medically stable, awaiting placement History Interval history: Patient is 72-year-old man with a history of end-stage renal disease on dialysis, hypertension, CHF, A. fib, coronary artery disease, PTSD, COPD comes emergency room with complaints of shortness of breath, he missed dialysis for 1 week. The patient also complains of chest pain and gets relieved with pain medication. Patient had a stress test in January which showed no ischemia. Patient medically stable, awaiting placement. Hospitalist Physical - Constitutional Vitals: Temp Pulse Resp BP Pulse Ox 98.8 F 83 18 115/79 98 05/21/19 04:16 05/21/19 04:16 05/21/19 09:55 05/21/19 04:16 05/21/19 04:16 General appearance: Present: no acute distress - EENT Eyes: Present: PERRL, EOM intact ENT: hearing intact, clear oral mucosa, dentition normal - Neck Neck: Present: supple, normal ROM - Respiratory Respiratory effort: normal Respiratory: bilateral: CTA - Cardiovascular Rhythm: regular Heart Sounds: Present: S1 & S2. Absent: gallop, rub - Extremities Extremities: no ischemia, No edema, Full ROM - Abdominal General gastrointestinal: soft, non-tender, non-distended, normal bowel sounds - Integumentary Integumentary: Present: clear, warm, dry - Neurologic Neurologic: CNII-XII intact, moves all extremities Results - Labs CBC & Chem 7: 05/20/19 07:12 05/20/19 07:12 Labs: Laboratory Last Values WBC 5.0 K/mm3 (4.5-11.0) 05/20/19 07:12 RBC 3.01 M/mm3 (3.65-5.03) L 05/20/19 07:12 Hgb 9.6 gm/dl (11.8-15.2) L 05/20/19 07:12 Hct 28.9 % (35.5-45.6) L 05/20/19 07:12 MCV 96 fl (84-94) H 05/20/19 07:12 MCH 32 pg (28-32) 05/20/19 07:12 MCHC 33 % (32-34) 05/20/19 07:12 RDW 16.8 % (13.2-15.2) H 05/20/19 07:12 Plt Count 86 K/mm3 (140-440) L 05/20/19 07:12 Lymph % (Auto) 18.3 % (13.4-35.0) 05/11/19 05:51 [place] % (Auto) 14.9 % (0.0-7.3) H 05/11/19 05:51 Eos % (Auto) 4.3 % (0.0-4.3) 05/11/19 05:51 Baso % (Auto) 2.6 % (0.0-1.8) H 05/11/19 05:51 Lymph # 1.1 K/mm3 (1.2-5.4) L 05/11/19 05:51 [place] # 0.9 K/mm3 (0.0-0.8) H 05/11/19 05:51 Eos # 0.3 K/mm3 (0.0-0.4) 05/11/19 05:51 Baso # 0.2 K/mm3 (0.0-0.1) H 05/11/19 05:51 Seg Neutrophils % 59.9 % (40.0-70.0) 05/11/19 05:51 Seg Neutrophils # 3.6 K/mm3 (1.8-7.7) 05/11/19 05:51 Sodium 137 mmol/L (137-145) 05/20/19 07:12 Potassium 5.0 mmol/L (3.6-5.0) 05/20/19 07:12 Chloride 96.3 mmol/L (98-107) L 05/20/19 07:12 Carbon Dioxide 22 mmol/L (22-30) 05/20/19 07:12 Anion Gap 24 mmol/L 05/20/19 07:12 BUN 39 mg/dL (9-20) H 05/20/19 07:12 Creatinine 6.3 mg/dL (0.8-1.5) H 05/20/19 07:12 Estimated GFR 11 ml/min 05/20/19 07:12 BUN/Creatinine Ratio 6 % 05/20/19 07:12 Glucose 81 mg/dL (75-100) 05/20/19 07:12 POC Glucose 85 (70-105) 05/21/19 12:01 Calcium 8.3 mg/dL (8.4-10.2) L 05/20/19 07:12 Total Creatine Kinase 62 units/L (55-170) 05/11/19 05:51 CK-MB (CK-2) 3.7 ng/mL (0.0-4.0) 05/11/19 05:51 CK-MB (CK-2) Rel Index 5.9 (0-4) H 05/11/19 05:51 Troponin T 0.512 ng/mL (0.00-0.029) H* 05/11/19 05:51 Triglycerides 91 mg/dL (2-149) 05/10/19 23:30 Cholesterol 64 mg/dL (50-199) 05/10/19 23:30 LDL Cholesterol Direct 20 mg/dL (50-130) L 05/10/19 23:30 HDL Cholesterol 23 mg/dL (40-59) L 05/10/19 23:30 Cholesterol/HDL Ratio 2.78 % 05/10/19 23:30 Hepatitis A IgM Ab Non-reactive (NonReactive) 05/11/19 10:10 Hep Bs Antigen Non-reactive (Negative) 05/11/19 10:10 Hep B Core IgM Ab Non-reactive (NonReactive) 05/11/19 10:10 Hepatitis C Antibody Reactive (NonReactive) A 05/11/19 10:10 Active Medications - Current Medications Current Medications: Generic Name Dose Route Start Last Admin Trade Name Freq PRN Reason Stop Dose Admin Acetaminophen 650 mg 05/10/19 23:23 Tylenol PO Q4H PRN Pain MILD(1-3)/Fever >100.5/DOUGLAS Atorvastatin Calcium 40 mg 05/11/19 22:00 05/20/19 21:37 Lipitor PO 40 mg QHS BEAN Administration Diphenhydramine HCl 25 mg 05/16/19 22:39 05/21/19 00:21 Benadryl PO 25 mg Q6H PRN Administration Itching Diphenhydramine HCl 25 mg 05/20/19 15:00 05/20/19 17:37 Benadryl IV 25 mg Q48HR PRN Administration Itching Epoetin Prashant 10,000 unit 05/11/19 09:12 05/18/19 13:26 Procrit SUB-Q 10,000 unit KATERYNA PRN Administration hemodialysis Sodium Chloride 100 mls @ 999 mls/hr 05/18/19 08:37 Nacl 0.9% IV KATERYNA PRN Hypotension Metoprolol Tartrate 12.5 mg 05/12/19 22:00 05/20/19 21:36 Metoprolol PO 12.5 mg BID BEAN Administration Morphine Sulfate 2 mg 05/11/19 23:07 05/20/19 17:35 Morphine IV 2 mg Q4H PRN Administration Pain, Moderate (5-10) Ondansetron HCl 4 mg 05/10/19 23:23 Zofran IV Q8H PRN Nausea And Vomiting Oxycodone/Acetaminophen 1 tab 05/10/19 23:23 05/21/19 09:55 Percocet 5/325 PO 1 tab Q6H PRN Administration Pain, Moderate (4-6) Polyethylene Glycol 17 gm 05/16/19 11:07 Miralax 3350 PO BID PRN Constipation Sodium Chloride 10 ml 05/11/19 10:00 05/20/19 21:38 Sodium Chloride Flush Syringe 10 Ml IV 10 ml BID BEAN Administration Sodium Chloride 10 ml 05/10/19 23:23 05/19/19 02:36 Sodium Chloride Flush Syringe 10 Ml IV 10 ml PRN PRN Administration LINE FLUSH Nutrition/Malnutrition Assess - Dietary Evaluation Nutrition/Malnutrition Findings: Nutrition Notes Start: 05/11/19 1 1:02 Freq: Status: Active Protocol: Document 05/15/19 09:57 LP (Rec: 05/15/19 10:02 [id number]) Nutrition Notes Initial or Follow up Reassessment Current Diagnosis CKD (stage V CKD),COPD, Hypertension,Heart Failure Other Pertinent Diagnosis HD (T,T,S), L lower arm amputation Current Diet Renal with Ensure clear BID Labs/Tests Reviewed Pertinent Medications Reviewed Height 5 ft 9 in Weight 48.6 kg [place] Body Weight (kg) 72.72 BMI 15.8 Weight change and time frame Wt change noted. Unable to weigh pt at time of visit. Weight Status Underweight Subjective/Other Information Pt states eating well and wanting more food. Pt food preferences noted. 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 No Is Patient Ambulatory and/or Out of Bed No REE-([facility]-confined to bed) 1483.884 Kcal/Kg value to use for calculation 35 Approximate Energy Requirements Using 1701 kcal/Kg Calculation Used for Recommendations Kcal/kg Additional Notes Pro needs: 72-90 g/day (1.2-1. 5 g/kg) Fluid needs: per MD Nutrition Intervention Change Diet Order: Continue renal diet Add Supplement/Snack (indicate name/kcal Ensure clear BID /protein ) Provides kCal: 480 Provides Protein (gm) 16 Goal #1 Meet at least 80% of kcal and protein needs Anticipated Discharge Needs: Renal diet with ONS PRN Follow-Up By: 05/22/19 Additional Comments Follow for stable intakes
[2019-05-21] MEDS ORDERED: SODIUM CHLORIDE*PRIMING MACHINE ONLY FOR DIALYSIS MC ONE (15:40)
[2019-05-21] MEDS: EPOETIN ALFA 10,000 UNIT/1 ML INJ SUB-Q PRN (16:15)
[2019-05-21] MEDS: METOPROLOL TARTRATE 25 MG TAB PO SCH ×2 (18:58→21:26)
[2019-05-21] MEDS: diphenhydrAMINE 50 MG/ML VIAL IV PRN (21:27)
[2019-05-21] MEDS: MORPHINE 2 MG/1 ML INJ IV PRN (21:32)
[2019-05-22] MEDS: MORPHINE 2 MG/1 ML INJ IV PRN ×2 (04:46→11:20)
[2019-05-22] MEDS: diphenhydrAMINE 50 MG/ML VIAL IV PRN (04:46)
--- NOTE | 2019-05-22 09:18 | Progress Note ---
Assessment and Plan 1. ESRD: Patient was admitted after he missed 2 sessions of hemodialysis. Continue hemodialysis three times a week, TTS schedule. Hemodialysis: 05/11, 05/13, 05/15, 05/18, 05/21. 2. FEN: Hyperkalemia, improved. Metabolic acidosis, improved. Volume overload, UF with HD. Renal diet. Monitor. 3. Chest pain and Elevated Troponin: Seen by Cardiology. 4. Chronic pleural effusion. 5. A.fib: Rate controlled. 6. HTN. 7. Anemia: Epogen with HD. 8. PAD. Examination: General appearance: well-developed, appears stated age, no distress HEENT: ATNC, ELENI, hearing intact, vision intact Neck: neck supple, trachea midline Respiratory: Decreased Breath Sounds Heart: irregularly irregular, S1S2, no murmurs Gastrointestinal: soft, BS heard, not tender, not distended Integumentary: no rash, warm and dry Neurologic: alert, able to move extremities Ext: No edema, L below elbow amputation Hemodialysis access: R IJ tunnel catheter, R arm AVF Subjective Date of service: 05/22/19 Interval history: Patient was seen and examined at the bedside. Doing ok. Objective - Vital Signs Vital signs: Vital Signs - 12hr 05/21/19 05/21/19 05/21/19 21:26 22:00 23:38 Temperature 99.4 F Pulse Rate 100 H 109 H Respiratory 20 Rate Blood Pressure 132/85 115/70 O2 Sat by Pulse 100 97 Oximetry 05/22/19 05/22/19 05/22/19 00:04 05:07 08:14 Temperature 98.4 F 97.9 F Pulse Rate 112 H 94 H 86 Respiratory 18 18 Rate Blood Pressure 115/77 115/81 O2 Sat by Pulse 100 100 Oximetry - Lab 05/20/19 07:12 05/20/19 07:12 Most recent lab results Calcium 8.3 mg/dL (8.4-10.2) L 05/20/19 07:12 Medications & Allergies - Medications Allergies/Adverse Reactions: Allergies aspirin Allergy (Verified 02/20/19 22:06) Unknown stomach cramps pork derived (porcine) Allergy (Verified 02/20/19 22:06) Rash venom-honey bee [bee venom (honey bee)] Allergy (Verified 02/20/19 22:06) Anaphylaxis Pork/Porcine Containing Products Adverse Reaction (Severe, Verified 02/20/19 22:06) Nausea,VOMITING Home Medications: Home Medications Medication Instructions Recorded Confirmed Last Taken Type AtorvaSTATin [Lipitor] 40 mg PO QHS #30 05/22/19 Unknown Rx Clonidine HCl [Catapres] 0.3 mg PO BID #60 05/22/19 Unknown Rx Epoetin Prashant 10,000 Unit [Procrit] 10,000 unit SUB-Q KATERYNA PRN vial 05/22/19 Unknown Rx Metoprolol [Lopressor TAB] 12.5 mg PO BID #60 tablet 05/22/19 Unknown Rx Oxycodone HCl [oxyCODONE] 10 mg PO Q6H PRN #20 05/22/19 Unknown Rx amLODIPine 20 mg PO DAILY #30 05/22/19 Unknown Rx Active Medications: Generic Name Dose Route Start Last Admin Trade Name Freq PRN Reason Stop Dose Admin Acetaminophen 650 mg 05/10/19 23:23 05/21/19 21:26 Tylenol PO 650 mg Q4H PRN Administration Pain MILD(1-3)/Fever >100.5/DOUGLAS Atorvastatin Calcium 40 mg 05/11/19 22:00 05/21/19 21:26 Lipitor PO 40 mg QHS BEAN Administration Diphenhydramine HCl 25 mg 05/16/19 22:39 05/21/19 00:21 Benadryl PO 25 mg Q6H PRN Administration Itching Diphenhydramine HCl 25 mg 05/20/19 15:00 05/22/19 04:46 Benadryl IV 25 mg Q48HR PRN Administration Itching Epoetin Prashant 10,000 unit 05/11/19 09:12 05/21/19 16:15 Procrit SUB-Q 10,000 unit KATERYNA PRN Administration hemodialysis Sodium Chloride 100 mls @ 999 mls/hr 05/18/19 08:37 Nacl 0.9% IV KATERYNA PRN Hypotension Metoprolol Tartrate 12.5 mg 05/12/19 22:00 05/21/19 21:26 Metoprolol PO 12.5 mg BID BEAN Administration Morphine Sulfate 2 mg 05/11/19 23:07 05/22/19 04:46 Morphine IV 2 mg Q4H PRN Administration Pain, Moderate (5-10) Ondansetron HCl 4 mg 11/22/19 23:23 Zofran IV Q8H PRN Nausea And Vomiting Oxycodone/Acetaminophen 1 tab 05/10/19 23:23 05/21/19 09:55 Percocet 5/325 PO 1 tab Q6H PRN Administration Pain, Moderate (4-6) Polyethylene Glycol 17 gm 05/16/19 11:07 Miralax 3350 PO BID PRN Constipation Sodium Chloride 10 ml 05/11/19 10:00 05/21/19 22:00 Sodium Chloride Flush Syringe 10 Ml IV 10 ml BID BEAN Administration Sodium Chloride 10 ml 05/10/19 23:23 05/19/19 02:36 Sodium Chloride Flush Syringe 10 Ml IV 10 ml PRN PRN Administration LINE FLUSH
--- NOTE | 2019-05-22 11:12 | Discharge Summary ---
Providers - Providers Date of Admission: 05/11/19 14:28 Date of discharge: 05/22/19 Attending physician: GLADIS DONG 05/10/19 23:23 Consult to Physician [CONS] Routine Comment: Consulting Provider: LYRIC DIAMOND Physician Instructions: Reason For Exam: hd 05/11/19 01:19 Consult to Dietitian/Nutrition [CONS] Routine Physician Instructions: Reason For Exam: Reason for Consult: Pt needs oral supplement 05/13/19 11:11 Physical Therapy Evaluation and Treat [CONS] Routine Comment: Reason For Exam: placement 05/16/19 07:31 Consult to Wound/ET Nurse [CONS] Routine Reason For Exam: wound eval Primary care physician: PAN DEVULCANIZER Hospitalization Reason for admission: missed HD Condition: Stable Hospital course: Patient is 72-year-old man with a history of end-stage renal disease on dialysis, hypertension, CHF, A. fib, coronary artery disease, PTSD, COPD comes emergency room with complaints of shortness of breath, he missed dialysis for 1 week. The patient also complained of chest pain. Patient had a stress test in January which showed no ischemia. Cardiology saw the patient in consultation and found to have cardiac isoenzymes that were negative. They recommended continued medical therapy for nonischemic cardiomyopathy, chronic systolic heart failure and non-obstructive CAD as tolerated. The patient was seen by nephrology consultation underwent his normal scheduled hemodialysis. Patient requested for discharge to a rehabilitation facility for deconditioning. Case management attempted to arrange for acceptance. However, no bed was available given his insurance situation. Therefore, patient will be discharged home with home health. The patient was counseled regarding his medical noncompliance and importance of hemodialysis. Dedicated discharge time 32 minutes. Disposition: - TO HOME OR SELFCARE Time spent for discharge: 32 - Discharge Diagnoses (1) A-fib Status: Acute Qualifiers: Atrial fibrillation type: persistent (2) Acute CHF (congestive heart failure) Status: Acute (3) Acute and chronic respiratory failure with hypoxia Status: Acute (4) Acute chest pain Status: Acute (5) Anemia in CKD (chronic kidney disease) Status: Acute Qualifiers: Chronic kidney disease stage: on chronic dialysis Qualified Code(s): N18.6 - End stage renal disease; D63.1 - Anemia in chronic kidney disease; Z99.2 - Dependence on renal dialysis (6) CAD (coronary artery disease) Status: Acute (7) Chronic HFrEF (heart failure with reduced ejection fraction) Status: Acute (8) ESRD (end stage renal disease) on dialysis Status: Acute (9) HTN (hypertension) Status: Acute (10) Volume overload Status: Acute Qualifiers: Hypervolemia type: unspecified Qualified Code(s): E87.70 - Fluid overload, unspecified Core Measure Documentation - Palliative Care Palliative Care/ Comfort Measures: Not Applicable - Core Measures Any of the following diagnoses?: none Exam - Constitutional Vitals: Temp Pulse Resp BP Pulse Ox 97.9 F 86 18 115/81 100 05/22/19 08:14 05/22/19 08:14 05/22/19 08:14 05/22/19 08:14 05/22/19 08:14 General appearance: Present: no acute distress, well-nourished - EENT Eyes: Present: PERRL ENT: hearing intact, clear oral mucosa - Neck Neck: Present: supple, normal ROM - Respiratory Respiratory effort: normal Respiratory: bilateral: CTA - Cardiovascular Heart Sounds: Present: S1 & S2. Absent: rub, click - Extremities Extremities: pulses symmetrical, No edema Peripheral Pulses: within normal limits - Abdominal General gastrointestinal: Present: soft, non-tender, non-distended, normal bowel sounds Male genitourinary: Present: normal - Integumentary Integumentary: Present: clear, warm, dry - Musculoskeletal Musculoskeletal: gait normal, strength equal bilaterally - Psychiatric Psychiatric: appropriate mood/affect, intact judgment & insight - Neurologic Neurologic: CNII-XII intact, moves all extremities Plan Activity: advance as tolerated Weight Bearing Status: Weight Bear as Tolerated Diet: renal Follow up with: AVRIL BENITEZ MD [Primary Care Provider] - 7 Days LYRIC DIAMOND MD [Staff Physician] - 7 Days Prescriptions: amLODIPine 20 mg PO DAILY #30 Clonidine HCl [Catapres] 0.3 mg PO BID #60 AtorvaSTATin [Lipitor] 40 mg PO QHS #30 Metoprolol [Lopressor TAB] 12.5 mg PO BID #60 tablet Oxycodone HCl [oxyCODONE] 10 mg PO Q6H PRN #20 PRN Reason: Pain
[2019-05-22] MEDS: METOPROLOL TARTRATE 25 MG TAB PO SCH (11:18)
[2019-05-22] MEDS: diphenhydrAMINE 25 MG CAP PO PRN (11:18)
[2019-05-22 17:00] VITALS: BP 110/76
== END 2019-05-22 19:30 | disposition home health service (06) | DRG 291 ==
LOC: ED 18:38 → 4A 22:18 → OBSVTOIN 05-11 14:28
PROVIDERS: ADMIT Internal Medicine; ATTEND Hospitalist
PROC: 5A1D70Z Performance of Urinary Filtration, Intermittent, Less than 6 Hours Per Day (ICD-10-PCS; principal; 2019-05-11)
PROC: 5A1D70Z Performance of Urinary Filtration, Intermittent, Less than 6 Hours Per Day (ICD-10-PCS; 2019-05-13)
PROC: 5A1D70Z Performance of Urinary Filtration, Intermittent, Less than 6 Hours Per Day (ICD-10-PCS; 2019-05-15)
PROC: 5A1D70Z Performance of Urinary Filtration, Intermittent, Less than 6 Hours Per Day (ICD-10-PCS; 2019-05-18)
PROC: 5A1D70Z Performance of Urinary Filtration, Intermittent, Less than 6 Hours Per Day (ICD-10-PCS; 2019-05-21)
DX: I13.2 Hypertensive heart and chronic kidney disease with heart failure and with stage 5 chronic kidney disease, or end stage renal disease (principal); J96.21 Acute and chronic respiratory failure with hypoxia; N18.6 End stage renal disease; E43 Unspecified severe protein-calorie malnutrition; I50.23 Acute on chronic systolic (congestive) heart failure; E87.5 Hyperkalemia; E87.70 Fluid overload, unspecified; D69.6 Thrombocytopenia, unspecified; I25.10 Atherosclerotic heart disease of native coronary artery without angina pectoris; J44.9 Chronic obstructive pulmonary disease, unspecified; F43.10 Post-traumatic stress disorder, unspecified; I48.20 Chronic atrial fibrillation, unspecified; E11.22 Type 2 diabetes mellitus with diabetic chronic kidney disease; E11.51 Type 2 diabetes mellitus with diabetic peripheral angiopathy without gangrene; E87.2 Acidosis; Z68.1 Body mass index [BMI] 19.9 or less, adult; M19.90 Unspecified osteoarthritis, unspecified site; D63.1 Anemia in chronic kidney disease; I42.0 Dilated cardiomyopathy; Z82.49 Family history of ischemic heart disease and other diseases of the circulatory system; Z99.2 Dependence on renal dialysis; Z79.899 Other long term (current) drug therapy; Z88.6 Allergy status to analgesic agent; Z91.030 Bee allergy status; Z89.212 Acquired absence of left upper limb below elbow; Z86.718 Personal history of other venous thrombosis and embolism; Z91.14 Patient's other noncompliance with medication regimen
CPT/HCPCS: 36415; 71045; 80048; 80061; 80074; 82550; 82553; 82962; 84484; 85025; 85027; 94760; 96365; 96366; 96372; 96375; G0378; A9270-GY; J0610; J0885; J1200; J1815; J2270; J7030; Q0163

== ENCOUNTER 2019-05-26 23:01 | Observation (INO) | payer MEDICAID ==
[2019-05-26] MEDS ORDERED: MORPHINE 2 MG/1 ML INJ IV ONE (23:31)
--- NOTE | 2019-05-26 23:42 | Emergency Department Report ---
ED General Adult HPI - General Chief complaint: Pain General Stated complaint: NECK/BACK PAIN Time Seen by Provider: 05/26/19 23:24 Source: patient Mode of arrival: Stretcher Limitations: No Limitations - History of Present Illness Initial comments: 72-year-old male with history of DM, HTN, chronic atrial fibrillation, CAD, CHF, ESRD, chronic neck and back pain, presents to ED with complaint of neck and back pain. Patient states he takes oxycodone at home for pain. He reports history of mulitple neck and lower back surgeries. He reports exacerbation of this pain today. Patient denies any fever, acute trauma. States when his pain becomes this bad, he usually comes to the ER for a shot of morphine. Patient also reported as he missed his last dialysis session. States he was switched from T-Th-Sat schedule to a MWF schedule. Last dialyzed 4 days ago. Patient reports only mild shortness of breath. Nephrology: Dr Blum Ortho: Dr Del Angel -: This morning Location: neck, back Radiation: non-radiation Quality: aching Consistency: constant Improves with: none Worsens with: movement Associated Symptoms: shortness of breath. denies: chest pain, fever/chills, nausea/vomiting - Related Data Previous Rx's Medication Instructions Recorded Last Taken Type AtorvaSTATin [Lipitor] 40 mg PO QHS #30 05/22/19 Unknown Rx Clonidine HCl [Catapres] 0.3 mg PO BID #60 05/22/19 Unknown Rx Epoetin Prashant 10,000 Unit [Procrit] 10,000 unit SUB-Q KATERYNA PRN vial 05/22/19 Unknown Rx Metoprolol [Lopressor TAB] 12.5 mg PO BID #60 tablet 05/22/19 Unknown Rx Oxycodone HCl [oxyCODONE] 10 mg PO Q6H PRN #20 05/22/19 Unknown Rx amLODIPine 20 mg PO DAILY #30 05/22/19 Unknown Rx Allergies Allergy/AdvReac Type Severity Reaction Status Date / Time aspirin Allergy Unknown Verified 02/20/19 22:06 pork derived (porcine) Allergy Rash Verified 02/20/19 22:06 venom-honey bee Allergy Anaphylaxis Verified 02/20/19 22:06 [bee venom (honey bee)] Pork/Porcine Containing AdvReac Severe Nausea,VOMI Verified 02/20/19 22:06 Products TING ED Review of Systems ROS: Stated complaint: NECK/BACK PAIN Other details as noted in HPI Comment: All other systems reviewed and negative Constitutional: denies: chills, fever Respiratory: shortness of breath Cardiovascular: denies: chest pain Gastrointestinal: denies: abdominal pain, nausea, vomiting Neurological: denies: headache, numbness, paresthesias ED Past Medical Hx - Past Medical History Previous Medical History?: Yes Hx Hypertension: Yes Hx Heart Attack/AMI: No Hx Congestive Heart Failure: Yes Hx Diabetes: Yes Hx Deep Vein Thrombosis: Yes Hx Pulmonary Embolism: No Hx Liver Disease: Yes Hx Renal Disease: No Hx Arthritis: Yes (generalized) Hx Seizures: No Hx Kidney Stones: No Hx Psychiatric Treatment: Yes (PTSD) Hx Asthma: No Hx COPD: Yes Hx Tuberculosis: No Hx HIV: No Additional medical history: 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 abd surgery after war related ingury partial "stomach removal'. Left upper extremity amputation below elbow - Social History Smoking Status: Never Smoker Substance Use Type: None - Medications Home Medications: Home Medications Medication Instructions Recorded Confirmed Last Taken Type AtorvaSTATin [Lipitor] 40 mg PO QHS #30 05/22/19 05/27/19 Unknown Rx Clonidine HCl [Catapres] 0.3 mg PO BID #60 05/22/19 05/27/19 Unknown Rx Epoetin Prashant 10,000 Unit [Procrit] 10,000 unit SUB-Q KATERYNA PRN vial 05/22/19 05/27/19 Unknown Rx Metoprolol [Lopressor TAB] 12.5 mg PO BID #60 tablet 05/22/19 05/27/19 Unknown Rx Oxycodone HCl [oxyCODONE] 10 mg PO Q6H PRN #20 05/22/19 05/27/19 Unknown Rx amLODIPine 20 mg PO DAILY #30 05/22/19 05/27/19 Unknown Rx ED Physical Exam - General Limitations: No Limitations General appearance: alert, in no apparent distress - Head Head exam: Present: atraumatic, normocephalic - Eye Eye exam: Present: normal appearance, EOMI - ENT ENT exam: Present: mucous membranes moist - Neck Neck exam: Present: normal inspection - Respiratory Respiratory exam: Present: normal lung sounds bilaterally. Absent: respiratory distress - Cardiovascular Cardiovascular Exam: Present: normal rhythm, tachycardia - GI/Abdominal GI/Abdominal exam: Present: soft. Absent: distended, tenderness - Extremities Exam Extremities exam: Present: normal inspection - Neurological Exam Neurological exam: Present: alert, oriented X3, CN II-XII intact - Psychiatric Psychiatric exam: Present: normal affect, normal mood - Skin Skin exam: Present: warm, dry, intact, normal color ED Course Vital Signs 05/26/19 23:12 Temperature 98 F Pulse Rate 106 H Respiratory 16 Rate Blood Pressure 156/108 O2 Sat by Pulse 96 Oximetry - Consultations Consultation #1: 05/27/19 01:[address] Nicole, states he will dialyze in the morning. ED Medical Decision Making - Lab Data Result diagrams: 05/27/19 00:28 05/27/19 00:28 - EKG Data -: EKG Interpreted by Me Rate: tachycardia - EKG Data Interpretation: other (afib, incomplete RBBB, LAFB, lateral T wave inversion) - Radiology Data Radiology results: report reviewed, image reviewed - Medical Decision Making 72 yo M presents to ED after missing dialysis. Has not been dialyzed in 4 days. He reports some shortness of breath. O2 sats are normal, pt is in no respiratory distress. CXR shows bilateral plerual effusions and pulmonary edema. Potassium is elevated at 5.8. Pt given insulin, D50, calcium gluconate, kayexalate. Spoke w/ farm operator, will dialyze in the morning. Patient will be admitted by hospitalist, Dr Saez. - Differential Diagnosis chronic pain, hyperkalemia, pulm edema Critical Care Time: Yes Critical care time in (mins) excluding proc time.: 35 Critical care attestation.: If time is entered above; I have spent that time in minutes in the direct care of this critically ill patient, excluding procedure time. Critical Care Time: 35 minutes ED Disposition Clinical Impression: Hyperkalemia, ESRD needing dialysis, Pleural effusion, Pulmonary edema, Chronic neck and back pain Disposition: OP ADMIT IP TO THIS HOSP Is pt being admited?: Yes Condition: Stable Instructions: Pulmonary Edema (ED) Referrals: PRIMARY CARE, [Primary Care Provider] - 3-5 Days Time of Disposition: 01:49
--- NOTE | 2019-05-26 23:59 | XRay Report ---
CHEST 1 VIEW 05/26/2019 11:40 PM INDICATION / CLINICAL INFORMATION: sob. COMPARISON: One view of the chest from 05/11/2019. FINDINGS: SUPPORT DEVICES: Stable right internal jugular vein PermCath. HEART / MEDIASTINUM: Stable. LUNGS / PLEURA: Small to moderate bilateral pleural effusions, left greater than right, are noted wit h bilateral atelectasis/edema that appears similar to the prior exam. No pneumothorax. ADDITIONAL FINDINGS: Left subclavian vein stents are unchanged. Severe atherosclerosis is noted along the right upper extremity and throughout the base of the neck. Partially visualized cervicothoracic spine fusion appears stable. IMPRESSION: Stable abnormal appearance of the chest compared to 05/11/2019. Signer Name: Dallin Mera MD Signed: 05/26/2019 11:54 PM Workstation Name: [id number]
[2019-05-27 01:11] LABS: Basophils # (Auto) 0.1 K/mm3 (0.0-0.1); Basophils % (Auto) 1.3 % (0.0-1.8); Eosinophils # (Auto) 0.2 K/mm3 (0.0-0.4); Eosinophils % (Auto) 5.2 % (0.0-4.3); Hematocrit 30.6 % (35.5-45.6); Hemoglobin 9.8 gm/dl (11.8-15.2); Lymphocytes % (Auto) 25.1 % (13.4-35.0); Mean Corpuscular HGB Conc 32 % (32-34); Mean Corpuscular Volume 98 fl (84-94); Monocytes # (Auto) 0.3 K/mm3 (0.0-0.8); Monocytes % (Auto) 7.2 % (0.0-7.3); Platelet Count 132 K/mm3 (140-440); Red Blood Count 3.13 M/mm3 (3.65-5.03); Red Cell Distribution Width 16.9 % (13.2-15.2)
[2019-05-27 01:33] LABS: Calcium 8.5 mg/dL (8.4-10.2)
[2019-05-27] MEDS ORDERED: DEXTROSE 50% IN WATER (25GM) 50 ML SYRINGE IV ONE (01:44)
[2019-05-27] MEDS ORDERED: INSULIN REGULAR, HUMAN 100 UNITS/1 ML IV ONE (01:44)
[2019-05-27] MEDS ORDERED: SODIUM POLYSTYRENE 15 GM/60 ML ORAL LIQD PO ONE (01:44)
[2019-05-27] MEDS ORDERED: CALCIUM GLUCONATE 1,000 MG in SODIUM CHLORIDE 0.9% 100 ML IV ONE (01:44)
[2019-05-27] MEDS ORDERED: ONDANSETRON 4 MG/2 ML INJ IV PRN (02:04)
[2019-05-27] MEDS ORDERED: ACETAMINOPHEN 325 MG TAB PO PRN (02:04)
--- NOTE | 2019-05-27 02:08 | History and Physical Report ---
History of Present Illness Date of examination: 05/27/19 History of present illness: 72-year-old man with a history of end-stage renal disease on dialysis, hypertension, CHF, A. fib, coronary artery disease, PTSD, COPD comes emergency room with complaints of shortness of breath, he missed dialysis on monday. His last dialysis was on Monday before being discharged from the hospital, states his transportation did not pick him up. Also complain of a headache, shortness of breath Review of systems Constitutional: no weight loss, chills, fever Ears, eyes, nose, mouth and throat: no nasal congestion, no nasal discharge, no sinus pressure, no vision change, no red eye. Neck: No neck pain or rigidity. Cardiovascular: no palpitations, chest pain Respiratory: no cough Gastrointestinal: no hematochezia, abdominal pain Genitourinary : no frequency , no hematuria Musculoskeletal: no joint swelling or muscle ache Integumentary: no rash, no pruritis Neurological: no parathesias, no focal weakness Endocrine: no cold or heat intolerance, no polyuria or polydipsia Hematologic/Lymphatic: no easy bruising, no easy bleeding, no gland swelling Allergic/Immunologic: no urticaria, no angioedema. PAST MEDICAL HISTORY: end-stage renal disease on dialysis, hypertension, CHF, A. fib, COPD, PVD PAST SURGICAL HISTORY: clot removal in left upper extremity left arm amputation, multiple fingers amputation, AV fistula, neck and back surgery SOCIAL HISTORY: Denies alcohol, drugs, tobacco FAMILY HISTORY: Hypertension Medications and Allergies Allergies Allergy/AdvReac Type Severity Reaction Status Date / Time aspirin Allergy Unknown Verified 02/20/19 22:06 pork derived (porcine) Allergy Rash Verified 02/20/19 22:06 venom-honey bee Allergy Anaphylaxis Verified 02/20/19 22:06 [bee venom (honey bee)] Pork/Porcine Containing AdvReac Severe Nausea,VOMI Verified 02/20/19 22:06 Products TING Home Medications Medication Instructions Recorded Confirmed Last Taken Type AtorvaSTATin [Lipitor] 40 mg PO QHS #30 05/22/19 05/27/19 Unknown Rx Clonidine HCl [Catapres] 0.3 mg PO BID #60 05/22/19 05/27/19 Unknown Rx Epoetin Prashant 10,000 Unit [Procrit] 10,000 unit SUB-Q KATERYNA PRN vial 05/22/19 05/27/19 Unknown Rx Metoprolol [Lopressor TAB] 12.5 mg PO BID #60 tablet 05/22/19 05/27/19 Unknown Rx Oxycodone HCl [oxyCODONE] 10 mg PO Q6H PRN #20 05/22/19 05/27/19 Unknown Rx amLODIPine 20 mg PO DAILY #30 05/22/19 05/27/19 Unknown Rx Active Meds: Active Medications Acetaminophen (Tylenol) 650 mg PO Q4H PRN PRN Reason: Pain MILD(1-3)/Fever >100.5/DOUGLAS Ondansetron HCl (Zofran) 4 mg IV Q8H PRN PRN Reason: Nausea And Vomiting Oxycodone/Acetaminophen (Percocet 5/325) 1 tab PO Q6H PRN PRN Reason: Pain, Moderate (4-6) Sodium Chloride (Sodium Chloride Flush Syringe 10 Ml) 10 ml IV BID BEAN Sodium Chloride (Sodium Chloride Flush Syringe 10 Ml) 10 ml IV PRN PRN PRN Reason: LINE FLUSH Exam - Physical Exam Narrative exam: General Apperance: The patient lying in bed, breathing comfortable HEENT: Normocephalic, atraumatic. Pupils equally round and reactive to light, EOMI, Left subconjunctival hemorrhage no sclericterus or JVD or thyromegaly or nodule. , no carotid bruit, mucous membranes moist, no exudate or erythema Heart: S1-S2, regular is rhythm Lungs: clear bilaterally, breathing comfortable Abdomen: Positive bowel sounds, soft, nontender, nondistended, no organomegaly Extremities: amputation of the left forearm, No edema cyanosis clubbing Skin: no rash, nodule, warm and dry Neuro: cranial nerves 2-12 intact, speech is fluent, motor/sensory intact - Constitutional Vitals: Temp Pulse Resp BP Pulse Ox 98 F 106 H 16 156/108 96 05/26/19 23:12 05/26/19 23:12 05/26/19 23:12 05/26/19 23:12 05/26/19 23:12 Results - Labs CBC & Chem 7: 05/27/19 00:28 05/27/19 00:28 Labs: Abnormal lab results 05/27/19 05/27/19 Range/Units 00:28 00:28 WBC 4.1 L (4.5-11.0) K/mm3 RBC 3.13 L (3.65-5.03) M/mm3 Hgb 9.8 L (11.8-15.2) gm/dl Hct 30.6 L (35.5-45.6) % MCV 98 H (84-94) fl RDW 16.9 H (13.2-15.2) % Plt Count 132 L (140-440) K/mm3 Eos % (Auto) 5.2 H (0.0-4.3) % Lymph # 1.0 L (1.2-5.4) K/mm3 Potassium 5.8 H (3.6-5.0) mmol/L Carbon Dioxide 21 L (22-30) mmol/L BUN 70 H (9-20) mg/dL Creatinine 9.2 H (0.8-1.5) mg/dL - Imaging and Cardiology EKG: image reviewed Chest x-ray: report reviewed Assessment and Plan Assessment Hyperkalemia End-stage renal disease on dialysis Headache A. fib Coronary artery disease CHF, Chronic, systolic Hypertension PTSD Thrombocytopenia PVD s/p left arm amputation Plan Admit to medicine s/p cocktail for hyperkalemia, follow potassium level renal was consulted for dialysis check CT head, cardiac enzymes Continue appropriate outpatient medications DVT prophylaxis, percocet
--- NOTE | 2019-05-27 02:51 | Cat Scan Report ---
CT HEAD WITHOUT CONTRAST INDICATION : Headache. TECHNIQUE: Axial, coronal and sagittal CT imaging was performed from the skull apex through the skul l base without contrast. All CT scans at this location are performed using CT dose reduction for ALA RA by means of automated exposure control. COMPARISON: CT head without contrast from 02/27/2019. FINDINGS: PARENCHYMA: No mass, midline shift, hemorrhage, extraaxial collection or acute territorial infarctio n. Generalized atrophy is stable. VENTRICLES: Symmetric and normal in size. SOFT TISSUES: Soft tissues including the orbits appear normal. BONES: No acute osseous abnormality. SINUSES: No significant abnormality. ADDITIONAL FINDINGS: There is severe generalized atherosclerosis. IMPRESSION: No acute intracranial abnormality. Signer Name: Dallin Mera MD Signed: 05/27/2019 2:46 AM Workstation Name: [id number]
[2019-05-27 03:12] LABS: Creatine Kinase MB 4.8 ng/mL (0.0-4.0)
[2019-05-27 05:15] LABS: Chol/HDL Ratio 2.02 %
[2019-05-27] MEDS: oxyCODONE /ACETAMINOPHEN 5-325MG TAB PO PRN ×2 (06:04→22:23)
[2019-05-27] MEDS ORDERED: SODIUM CHLORIDE 0.9% 100 ML IV PRN (09:00)
[2019-05-27] MEDS ORDERED: NON-FORMULARY EACH (Clonidine Hcl [Catapres] 0.3 MG) PO SCH (10:00)
[2019-05-27] MEDS ORDERED: diphenhydrAMINE 50 MG/ML VIAL IV ONE (10:15)
[2019-05-27 12:11] LABS: Creatine Kinase MB 4.6 ng/mL (0.0-4.0)
--- NOTE | 2019-05-27 12:39 | Event Note ---
Date: 05/27/19 Patient with fluid overload from missed dialysis. I have seen and exmined him. Nephrology for dialysis management. Continue current management. Poss dc home tomorrow.
[2019-05-27] MEDS: EPOETIN ALFA 10,000 UNIT/1 ML INJ SUB-Q PRN (12:53)
[2019-05-27] MEDS: amLODIPine 10 MG TAB PO SCH (14:42)
[2019-05-27] MEDS: cloNIDine 0.1 MG TAB PO SCH ×2 (14:44→22:28)
[2019-05-27] MEDS: METOPROLOL TARTRATE 25 MG TAB PO SCH ×2 (14:45→22:25)
--- NOTE | 2019-05-27 14:47 | Consultation ---
History of Present Illness - Reason for Consult Consult date: 05/27/19 end stage renal disease, hyperkalemia - History of Present Illness The patient is a 72 YO male who is known to our service with history significant for DM type 2, HTN, Chronic A.fib, CAD, CHF, PTSD, PAD s/p left forearm ampu tation, chronic L pleural effusion (Transudate) s/p multiple thoracentesis and ESRD on hemodialysis (TTS) who presented to [facility] ED with complaints of shortness of breath. Patient was discharged from this facility on 05/22 and was last dialyzed on the same day prior to d/c. Per pt the transportation didn't pick him up for dialysis on 05/24 and missed the hemodialysis session. He denies fever, chills, dizzines, nausea, vomiting, abd pain, leg swelling or weakness. Labs were significant for K 5.8 and Troponin 0.6. Chest x-ray in the ER showed bilateral pleural effusion. Pt was admitted for further management. Patient has been coming to various hospitals with multiple complaints. Nephrology was consulted for further evaluation. Past History Past Medical History: atrial fib, CAD, diabetes, dialysis, ESRD, heart failure, hypertension Medications and Allergies Allergies Allergy/AdvReac Type Severity Reaction Status Date / Time aspirin Allergy Unknown Verified 02/20/19 22:06 pork derived (porcine) Allergy Rash Verified 02/20/19 22:06 venom-honey bee Allergy Anaphylaxis Verified 02/20/19 22:06 [bee venom (honey bee)] Pork/Porcine Containing AdvReac Severe Nausea,VOMI Verified 02/20/19 22:06 Products TING Home Medications Medication Instructions Recorded Confirmed Last Taken Type AtorvaSTATin [Lipitor] 40 mg PO QHS #30 05/22/19 05/27/19 Unknown Rx Clonidine HCl [Catapres] 0.3 mg PO BID #60 05/22/19 05/27/19 Unknown Rx Epoetin Prashant 10,000 Unit [Procrit] 10,000 unit SUB-Q KATERYNA PRN vial 05/22/19 05/27/19 Unknown Rx Metoprolol [Lopressor TAB] 12.5 mg PO BID #60 tablet 05/22/19 05/27/19 Unknown Rx Oxycodone HCl [oxyCODONE] 10 mg PO Q6H PRN #20 05/22/19 05/27/19 Unknown Rx amLODIPine 20 mg PO DAILY #30 05/22/19 05/27/19 Unknown Rx Active Meds: Active Medications Acetaminophen (Tylenol) 650 mg PO Q4H PRN PRN Reason: Pain MILD(1-3)/Fever >100.5/DOUGLAS Amlodipine Besylate (Amlodipine) 20 mg PO DAILY [facility] Atorvastatin Calcium (Lipitor) 40 mg PO QHS BEAN Clonidine HCl (Catapres) 0.3 mg PO BID [facility] Epoetin Prashant (Procrit) 10,000 unit SUB-Q KATERYNA PRN PRN Reason: hemodialysis Last Admin: 05/27/19 12:53 Dose: 10,000 unit Documented by: Sodium Chloride (Nacl 0.9%) 100 mls @ 999 mls/hr IV KATERYNA PRN PRN Reason: Hypotension Metoprolol Tartrate (Metoprolol) 12.5 mg PO BID [facility] Ondansetron HCl (Zofran) 4 mg IV Q8H PRN PRN Reason: Nausea And Vomiting Oxycodone/Acetaminophen (Percocet 5/325) 1 tab PO Q6H PRN PRN Reason: Pain, Moderate (4-6) Last Admin: 05/27/19 06:04 Dose: 1 tab Documented by: Sodium Chloride (Sodium Chloride Flush Syringe 10 Ml) 10 ml IV BID [facility] Sodium Chloride (Sodium Chloride Flush Syringe 10 Ml) 10 ml IV PRN PRN PRN Reason: LINE FLUSH Review of Systems Constitutional: no weight loss, no weight gain, no fever, no chills, no fatigue, no weakness, no poor appetite Cardiovascular: orthopnea, shortness of breath, high blood pressure, no chest pain, no edema, no syncope, no lightheadedness, no leg edema Respiratory: shortness of breath, no cough Gastrointestinal: no abdominal pain, no nausea, no vomiting, no diarrhea, no melena Genitourinary Male: no dysuria, no hematuria Musculoskeletal: no morning stiffness, no muscle weakness, no muscle cramps Integumentary: no rash, no wounds Neurological: no syncope, no change in speech, no change in mentation, no confusion Exam - Vital Signs Vital signs: Vital Signs Temp Pulse Resp BP Pulse Ox 98 F 106 H 16 156/108 96 05/26/19 23:12 05/26/19 23:12 05/26/19 23:12 05/26/19 23:12 05/26/19 23:12 - General Appearance General appearance: well-developed, appears stated age, other (not in distress, R IJ tunnel catheter) EENT: ATNC, PERRL, hearing intact, vision intact Neck: Present: neck supple, trachea midline Respiratory: Clear to Ascultation Heart: irregularly irregular, S1S2, no murmurs Gastrointestinal: Present: normoactive bowel sounds. Absent: tenderness, distended Integumentary: no rash, warm and dry Neurologic: no focal deficit, no asterixis, alert and oriented x3 Musculoskeletal: Present: other (no edema, L forearm amputated, R arm AVF) Results - Lab Results 05/27/19 00:28 05/27/19 00:28 Most recent lab results Calcium 8.5 mg/dL (8.4-10.2) 05/27/19 00:28 Assessment and Plan 1. ESRD: Patient was admitted after he missed one session of hemodialysis. Continue hemodialysis three times a week. HD today. 2. FEN: Hyperkalemia, HD today. Metabolic acidosis, HD today. Volume overload, UF with HD. Renal diet. Monitor. 3. Chronic pleural effusion. 4. Chronic A.fib: Mostly rate controlled. 5. HTN. 6. Anemia: Epogen with HD. 7. PAD.
[2019-05-28 05:53] LABS: Eosinophils # (Auto) 0.1 K/mm3 (0.0-0.4); Eosinophils % (Auto) 4.1 % (0.0-4.3); Hematocrit 31.5 % (35.5-45.6); Hemoglobin 9.8 gm/dl (11.8-15.2); Lymphocytes # (Auto) 0.9 K/mm3 (1.2-5.4); Lymphocytes % (Auto) 27.1 % (13.4-35.0); Mean Corpuscular HGB Conc 31 % (32-34); Mean Corpuscular Volume 100 fl (84-94); Monocytes # (Auto) 0.5 K/mm3 (0.0-0.8); Platelet Count 103 K/mm3 (140-440); Red Blood Count 3.15 M/mm3 (3.65-5.03); Red Cell Distribution Width 17.1 % (13.2-15.2)
[2019-05-28 06:14] LABS: Calcium 8.5 mg/dL (8.4-10.2)
[2019-05-28] MEDS: cloNIDine 0.1 MG TAB PO SCH (10:29)
[2019-05-28] MEDS: amLODIPine 10 MG TAB PO SCH (10:29)
[2019-05-28] MEDS: METOPROLOL TARTRATE 25 MG TAB PO SCH ×2 (10:29→21:22)
--- NOTE | 2019-05-28 14:10 | Progress Note ---
Assessment and Plan 1. ESRD: Patient was admitted after he missed one session of hemodialysis. Continue hemodialysis three times a week, MWF schedule. 2. FEN: Hyperkalemia, improved. Metabolic acidosis, improved. Volume overload, s/p UF with HD. Renal diet. Monitor. 3. Chronic pleural effusion. 4. Chronic A.fib: Mostly rate controlled. 5. HTN. 6. Anemia: Epogen with HD. 7. PAD. Examination: General appearance: well-developed, appears stated age, not in distress HEENT: ATNC, ELENI, hearing intact, vision intact Neck: neck supple, trachea midline Respiratory: Clear to Ascultation Heart: irregularly irregular, S1S2, no murmurs Gastrointestinal: normoactive bowel sounds, not tender, not distended Integumentary: no rash, warm and dry Neurologic: no focal deficit, no asterixis, alert and oriented x3 Ext: no edema, L forearm amputated Hemodialysis access: R IJ tunnel catheter, R arm AVF Subjective Date of service: 05/28/19 Interval history: Patient was seen and examined at the bedside. Doing ok. Objective - Vital Signs Vital signs: Vital Signs - 12hr 05/28/19 05/28/19 05/28/19 03:00 04:02 08:26 Temperature 97.4 F L Pulse Rate 84 81 Respiratory 18 18 Rate Blood Pressure 120/80 O2 Sat by Pulse 98 91 98 Oximetry 05/28/19 05/28/19 08:40 10:29 Temperature 97.9 F Pulse Rate 74 74 Respiratory 18 Rate Blood Pressure 111/76 111/76 O2 Sat by Pulse 100 Oximetry - Lab 05/28/19 05:11 05/28/19 05:11 Most recent lab results Calcium 8.5 mg/dL (8.4-10.2) 05/28/19 05:11 Medications & Allergies - Medications Allergies/Adverse Reactions: Allergies aspirin Allergy (Verified 02/20/19 22:06) Unknown stomach cramps pork derived (porcine) Allergy (Verified 02/20/19 22:06) Rash venom-honey bee [bee venom (honey bee)] Allergy (Verified 02/20/19 22:06) Anaphylaxis Pork/Porcine Containing Products Adverse Reaction (Severe, Verified 02/20/19 22:06) Nausea,VOMITING Home Medications: Home Medications Medication Instructions Recorded Confirmed Last Taken Type AtorvaSTATin [Lipitor] 40 mg PO QHS #30 05/22/19 05/27/19 Unknown Rx Clonidine HCl [Catapres] 0.3 mg PO BID #60 05/22/19 05/27/19 Unknown Rx Epoetin Prashant 10,000 Unit [Procrit] 10,000 unit SUB-Q KATERYNA PRN vial 05/22/19 05/27/19 Unknown Rx Metoprolol [Lopressor TAB] 12.5 mg PO BID #60 tablet 05/22/19 05/27/19 Unknown Rx Oxycodone HCl [oxyCODONE] 10 mg PO Q6H PRN #20 05/22/19 05/27/19 Unknown Rx amLODIPine 20 mg PO DAILY #30 05/22/19 05/27/19 Unknown Rx Active Medications: Generic Name Dose Route Start Last Admin Trade Name Freq PRN Reason Stop Dose Admin Acetaminophen 650 mg 05/27/19 02:04 Tylenol PO Q4H PRN Pain MILD(1-3)/Fever >100.5/DOULGAS Amlodipine Besylate 20 mg 05/27/19 10:00 05/28/19 10:29 Amlodipine PO 20 mg DAILY BEAN Administration Atorvastatin Calcium 40 mg 05/27/19 22:00 05/27/19 22:24 Lipitor PO 40 mg QHS BEAN Administration Clonidine HCl 0.3 mg 05/27/19 10:00 05/28/19 10:29 Catapres PO 0.3 mg BID BEAN Administration Epoetin Prashant 10,000 unit 05/27/19 02:24 05/27/19 12:53 Procrit SUB-Q 10,000 unit KATERYNA PRN Administration hemodialysis Sodium Chloride 100 mls @ 999 mls/hr 05/27/19 09:00 Nacl 0.9% IV KATERYNA PRN Hypotension Metoprolol Tartrate 12.5 mg 05/27/19 10:00 05/28/19 10:29 Metoprolol PO 12.5 mg BID BEAN Administration Ondansetron HCl 4 mg 05/27/19 02:04 Zofran IV Q8H PRN Nausea And Vomiting Oxycodone/Acetaminophen 1 tab 05/27/19 02:04 05/27/19 22:23 Percocet 5/325 PO 1 tab Q6H PRN Administration Pain, Moderate (4-6) Sodium Chloride 10 ml 05/27/19 10:00 05/28/19 10:30 Sodium Chloride Flush Syringe 10 Ml IV 10 ml BID BEAN Administration Sodium Chloride 10 ml 05/27/19 02:04 Sodium Chloride Flush Syringe 10 Ml IV PRN PRN LINE FLUSH
--- NOTE | 2019-05-28 16:47 | Progress Note ---
Assessment and Plan 72-year-old man with a history of end-stage renal disease on dialysis, hypertension, CHF, A. fib, coronary artery disease, PTSD, COPD comes emergency room with complaints of shortness of breath, he missed dialysis on monday. His last dialysis was on Monday before being discharged from the hospital, states his transportation did not pick him up. Also complain of a headache, shortness of breath Dysphagia and is on hemodialysis Hyperkalemia Headache A. fib Coronary artery disease CHF, Chronic, systolic Hypertension PTSD Thrombocytopenia PVD s/p left arm amputation Plan Continue with hemodialysis. Nephrology consulted and following Hyperkalemia resolved Daily weights, strict input and output Beta blockers, ACEI, diuresis, Trend platelets CT head was normal, cardiac enzymes Continue appropriate outpatient medications DVT prophylaxis, percocet Subjective Date of service: 05/28/19 Principal diagnosis: estimated allergies or hemodialysis, shortness of breath, pulmonary edema. Interval history: Shortness of breath. Denies any fever. No chest pain. Objective - Exam Narrative Exam: Constitutional: Well-nourished well-developed. In no distress Head: Normocephalic atraumatic Eyes: Pupils are equal round and reactive to light Nose: No enlarged turbinates, no septal deviation. Mouth: Moist mucous membranes. Neck: Supple no thyromegaly. No bruit. No JVD Heart: Regular rate and rhythm, S1-S2 normal. No rubs murmurs or gallop Lungs: Decreased breath sounds bilaterally . no rales or rhonchi Abdomen: Soft, nontender. Bowel sound are present. Extremities: No edema, no cyanosis, no clubbing. Neuro: Alert oriented Oriented x3. No focal sensory or motor deficit. Skin: No rashes or hyperpigmented spots Musculoskeletal system: No joint pain or swelling Hematological: No petechia or subcutanous hemorrhages. Immunological: No multiple septic spots on the skin Lymphatic: No generalized lymphadenopathy Psychiatry: Euthymic. Calm. - Constitutional Vitals: Vital Signs - 12hr 05/28/19 05/28/19 05/28/19 08:26 08:40 10:29 Temperature 97.9 F Pulse Rate 74 74 Respiratory 18 Rate Blood Pressure 111/76 111/76 O2 Sat by Pulse 98 100 Oximetry 05/28/19 05/28/19 05/28/19 11:00 15:00 16:37 Temperature 97.9 F Pulse Rate 83 72 Respiratory 18 18 Rate Blood Pressure 109/76 O2 Sat by Pulse 98 100 Oximetry - Labs CBC & Chem 7: 05/28/19 05:11 05/28/19 05:11 Labs: Abnormal lab results 05/27/19 05/28/19 05/28/19 Range/Units 20:58 05:11 05:11 WBC 3.2 L (4.5-11.0) K/mm3 RBC 3.15 L (3.65-5.03) M/mm3 Hgb 9.8 L (11.8-15.2) gm/dl Hct 31.5 L (35.5-45.6) % MCV 100 H (84-94) fl MCHC 31 L (32-34) % RDW 17.1 H (13.2-15.2) % Plt Count 103 L (140-440) K/mm3 [place] % (Auto) 15.0 H (0.0-7.3) % Lymph # 0.9 L (1.2-5.4) K/mm3 Seg Neutrophils # 1.7 L (1.8-7.7) K/mm3 Sodium 135 L (137-145) mmol/L BUN 35 H (9-20) mg/dL Creatinine 5.7 H (0.8-1.5) mg/dL Glucose 124 H (75-100) mg/dL POC Glucose 193 H (70-105) 05/28/19 05/28/19 05/28/19 Range/Units 08:46 12:13 16:44 WBC (4.5-11.0) K/mm3 RBC (3.65-5.03) M/mm3 Hgb (11.8-15.2) gm/dl Hct (35.5-45.6) % MCV (84-94) fl MCHC (32-34) % RDW (13.2-15.2) % Plt Count (140-440) K/mm3 [place] % (Auto) (0.0-7.3) % Lymph # (1.2-5.4) K/mm3 Seg Neutrophils # (1.8-7.7) K/mm3 Sodium (137-145) mmol/L BUN (9-20) mg/dL Creatinine (0.8-1.5) mg/dL Glucose (75-100) mg/dL POC Glucose 126 H 134 H 123 H (70-105)
[2019-05-28] MEDS: oxyCODONE /ACETAMINOPHEN 5-325MG TAB PO PRN (17:11)
[2019-05-29] MEDS ORDERED: HYDROmorphone 1 MG/1 ML INJ IV ONE (00:18)
[2019-05-29] MEDS: cloNIDine 0.1 MG TAB PO SCH ×2 (00:38→11:24)
[2019-05-29] MEDS ORDERED: SODIUM CHLORIDE 0.9% 100 ML IV PRN (08:02)
[2019-05-29] MEDS ORDERED: diphenhydrAMINE 50 MG/ML VIAL IV PRN (08:02)
[2019-05-29 08:55] LABS: Basophils % (Auto) 0.7 % (0.0-1.8); Eosinophils # (Auto) 0.1 K/mm3 (0.0-0.4); Eosinophils % (Auto) 4.2 % (0.0-4.3); Hematocrit 26.8 % (35.5-45.6); Hemoglobin 8.8 gm/dl (11.8-15.2); Lymphocytes # (Auto) 0.7 K/mm3 (1.2-5.4); Lymphocytes % (Auto) 20.5 % (13.4-35.0); Mean Corpuscular HGB Conc 33 % (32-34); Mean Corpuscular Volume 96 fl (84-94); Monocytes # (Auto) 0.2 K/mm3 (0.0-0.8); Monocytes % (Auto) 7.5 % (0.0-7.3); Platelet Count 100 K/mm3 (140-440); Red Cell Distribution Width 16.1 % (13.2-15.2)
[2019-05-29 09:03] LABS: Albumin 2.7 g/dL (3.9-5); Calcium 8.6 mg/dL (8.4-10.2)
[2019-05-29 09:11] LABS: INR 1.56 (0.87-1.13)
--- NOTE | 2019-05-29 09:45 | Progress Note ---
Assessment and Plan 1. ESRD: Patient was admitted after he missed one session of hemodialysis. Continue hemodialysis three times a week, MWF schedule. 2. FEN: Hyperkalemia, improved. Metabolic acidosis, improved. Volume overload, s/p UF with HD. Renal diet. Monitor. 3. Chronic pleural effusion. 4. Chronic A.fib: Mostly rate controlled. 5. HTN. 6. Anemia: Epogen with HD. 7. PAD. Examination: General appearance: well-developed, appears stated age, not in distress HEENT: ATNC, ELENI, hearing intact, vision intact Neck: neck supple, trachea midline Respiratory: Clear to Ascultation Heart: irregularly irregular, S1S2, no murmurs Gastrointestinal: normoactive bowel sounds, not tender, not distended Integumentary: no rash, warm and dry Neurologic: no focal deficit, no asterixis, alert and oriented x3 Ext: no edema, L forearm amputated Hemodialysis access: R IJ tunnel catheter, R arm AVF Subjective Date of service: 05/29/19 Principal diagnosis: estimated allergies or hemodialysis, shortness of breath, pulmonary edema. Interval history: Patient was seen and examined at the bedside. Doing ok. Objective - Vital Signs Vital signs: Vital Signs - 12hr 05/28/19 05/28/19 05/28/19 21:54 23:30 23:35 Temperature 97.3 F L Pulse Rate 76 76 Respiratory 18 Rate Respiratory Rate [Chest] Respiratory Rate [Posterior Neck] Blood Pressure 127/83 O2 Sat by Pulse 100 100 Oximetry 05/29/19 05/29/19 05/29/19 00:34 00:38 00:48 Temperature Pulse Rate 83 Respiratory 16 Rate Respiratory 16 Rate [Chest] Respiratory 16 Rate [Posterior Neck] Blood Pressure 127/83 O2 Sat by Pulse Oximetry 05/29/19 05/29/19 05/29/19 01:04 03:20 03:49 Temperature 97.9 F Pulse Rate 79 91 H Respiratory 16 18 Rate Respiratory Rate [Chest] Respiratory Rate [Posterior Neck] Blood Pressure 139/94 O2 Sat by Pulse 100 Oximetry 05/29/19 05/29/19 08:23 08:36 Temperature 97.4 F L Pulse Rate 76 Respiratory 18 Rate Respiratory Rate [Chest] Respiratory Rate [Posterior Neck] Blood Pressure 125/79 O2 Sat by Pulse 100 100 Oximetry - Lab 05/29/19 08:08 05/29/19 08:08 Most recent lab results Calcium 8.6 mg/dL (8.4-10.2) 05/29/19 08:08 Medications & Allergies - Medications Allergies/Adverse Reactions: Allergies aspirin Allergy (Verified 02/20/19 22:06) Unknown stomach cramps pork derived (porcine) Allergy (Verified 02/20/19 22:06) Rash venom-honey bee [bee venom (honey bee)] Allergy (Verified 02/20/19 22:06) Anaphylaxis Pork/Porcine Containing Products Adverse Reaction (Severe, Verified 02/20/19 22:06) Nausea,VOMITING Home Medications: Home Medications Medication Instructions Recorded Confirmed Last Taken Type AtorvaSTATin [Lipitor] 40 mg PO QHS #30 05/22/19 05/27/19 Unknown Rx Clonidine HCl [Catapres] 0.3 mg PO BID #60 05/22/19 05/27/19 Unknown Rx Epoetin Prashant 10,000 Unit [Procrit] 10,000 unit SUB-Q KATERYNA PRN vial 05/22/19 05/27/19 Unknown Rx Metoprolol [Lopressor TAB] 12.5 mg PO BID #60 tablet 05/22/19 05/27/19 Unknown Rx Oxycodone HCl [oxyCODONE] 10 mg PO Q6H PRN #20 05/22/19 05/27/19 Unknown Rx amLODIPine 20 mg PO DAILY #30 05/22/19 05/27/19 Unknown Rx Active Medications: Generic Name Dose Route Start Last Admin Trade Name Freq PRN Reason Stop Dose Admin Acetaminophen 650 mg 05/27/19 02:04 Tylenol PO Q4H PRN Pain MILD(1-3)/Fever >100.5/DOUGLAS Amlodipine Besylate 20 mg 05/27/19 10:00 05/28/19 10:29 Amlodipine PO 20 mg DAILY BEAN Administration Atorvastatin Calcium 40 mg 05/27/19 22:00 05/28/19 21:22 Lipitor PO 40 mg QHS BEAN Administration Clonidine HCl 0.3 mg 05/27/19 10:00 05/29/19 00:38 Catapres PO 0.3 mg BID BEAN Administration Diphenhydramine HCl 25 mg 05/29/19 08:02 Benadryl IV KATERYNA PRN Itching Epoetin Prashant 10,000 unit 05/27/19 02:24 05/27/19 12:53 Procrit SUB-Q 10,000 unit KATERYNA PRN Administration hemodialysis Sodium Chloride 100 mls @ 999 mls/hr 05/29/19 08:02 Nacl 0.9% IV KATERYNA PRN Hypotension Metoprolol Tartrate 12.5 mg 05/27/19 10:00 05/28/19 21:22 Metoprolol PO 12.5 mg BID BEAN Administration Ondansetron HCl 4 mg 05/27/19 02:04 Zofran IV Q8H PRN Nausea And Vomiting Oxycodone/Acetaminophen 1 tab 05/27/19 02:04 05/28/19 17:11 Percocet 5/325 PO 1 tab Q6H PRN Administration Pain, Moderate (4-6) Sodium Chloride 10 ml 05/27/19 10:00 05/28/19 21:25 Sodium Chloride Flush Syringe 10 Ml IV 10 ml BID BEAN Administration Sodium Chloride 10 ml 05/27/19 02:04 Sodium Chloride Flush Syringe 10 Ml IV PRN PRN LINE FLUSH
--- NOTE | 2019-05-29 10:06 | Discharge Summary ---
Providers - Providers Date of Admission: 05/27/19 02:04 Date of discharge: 05/29/19 Attending physician: ENEDINA WASHINGTON 05/27/19 01:49 Consult to Physician [CONS] Stat Comment: Dr. Martins spoke with Dr. Diamond @ 0147 Consulting Provider: LYRIC DIAMOND Physician Instructions: Reason For Exam: hyperkalemia Primary care physician: FILM EXAMINER Hospitalization Condition: Fair Hospital course: 72-year-old man with a history of end-stage renal disease on dialysis, hypertension, CHF, A. fib, coronary artery disease, PTSD, COPD presented to emergency room with complaints of shortness of breath after he missed dialysis for one day. He stated g discharged from the hospital, states his transportation did not pick him up. Also complain of a headache, shortness of breath. He was seen and evaluated in ED, diagnosed with hyperkalemia, fluid overload. he was given calcium Insulin , Kayexalate for hyperkalemia, admitted. patient was seen by Claim Agent dialysis done. ESRD on hemodialysis Hyperkalemia, resolved after dialysis , medications including Calcium gluconate, Insulin, kayexalate Headache A. fib Coronary artery disease,stable. No chest pain CHF, Chronic, systolic Hypertension PTSD Thrombocytopenia PVD s/p left arm amputation Total time spent on discharge, 32 mins Disposition: TO HOME OR SELFCARE - Discharge Diagnoses (1) CAD (coronary artery disease) Status: Acute (2) Medical non-compliance Status: Acute (3) HTN (hypertension) Status: Acute (4) Hyperkalemia Status: Acute (5) ESRD needing dialysis Status: Chronic (6) HTN (hypertension) Status: Chronic Qualifiers: Hypertension type: essential hypertension Qualified Code(s): I10 - Essential (primary) hypertension (7) Type 2 diabetes mellitus with diabetic chronic kidney disease Status: Chronic Qualifiers: Chronic kidney disease stage: on chronic dialysis Core Measure Documentation - Palliative Care Palliative Care/ Comfort Measures: Not Applicable - Core Measures Any of the following diagnoses?: none Exam - Constitutional Vitals: Temp Pulse Resp BP Pulse Ox 97.4 F L 76 18 125/79 100 05/29/19 08:23 05/29/19 08:23 05/29/19 08:23 05/29/19 08:23 05/29/19 08:36 Plan Activity: no restrictions Diet: low fat, low cholesterol, low salt, renal Plan of Treatment: 1.Follow up with PCP in 1 week. 2.Continue routine hemodialysis as scheduled Follow up with: PRIMARY CARE, [Primary Care Provider] - 3-5 Days
[2019-05-29] MEDS ORDERED: SODIUM CHLORIDE*PRIMING MACHINE ONLY FOR DIALYSIS MC ONE ×2 (10:58→13:22)
[2019-05-29] MEDS: EPOETIN ALFA 10,000 UNIT/1 ML INJ SUB-Q PRN (11:17)
[2019-05-29] MEDS: amLODIPine 10 MG TAB PO SCH (11:24)
[2019-05-29] MEDS: METOPROLOL TARTRATE 25 MG TAB PO SCH (11:24)
[2019-05-29 13:51] VITALS: BP 128/81
== END 2019-05-29 17:45 | disposition home or self-care (01) ==
LOC: ED 23:01 → 4A 05-27 02:04
PROVIDERS: ADMIT Internal Medicine; ATTEND Internal Medicine
DX: I13.2 Hypertensive heart and chronic kidney disease with heart failure and with stage 5 chronic kidney disease, or end stage renal disease (principal); I50.22 Chronic systolic (congestive) heart failure; N18.6 End stage renal disease; E11.22 Type 2 diabetes mellitus with diabetic chronic kidney disease; I25.10 Atherosclerotic heart disease of native coronary artery without angina pectoris; I48.91 Unspecified atrial fibrillation; E87.5 Hyperkalemia; D69.6 Thrombocytopenia, unspecified; R51 Headache; J44.9 Chronic obstructive pulmonary disease, unspecified; J90 Pleural effusion, not elsewhere classified; J81.1 Chronic pulmonary edema; M54.2 Cervicalgia; M54.9 Dorsalgia, unspecified; M19.90 Unspecified osteoarthritis, unspecified site; G89.29 Other chronic pain; Z99.2 Dependence on renal dialysis; Z86.711 Personal history of pulmonary embolism
CPT/HCPCS: 36415; 70450; 71045; 80048; 80053; 80061; 82550; 82553; 82962; 84484; 85025; 85610; 93005; 93010; 94760; 96372; 96374; 96375; 96376; 99291; A9270; G0378; J0610; J0885; J1170; J1200; J2270; J7030; G0257; J1815

== ENCOUNTER 2019-07-09 21:31 | Inpatient (IN) | payer MEDICAID ==
--- NOTE | 2019-07-09 22:14 | Emergency Department Report ---
ED General Adult HPI - General Chief complaint: Nausea/Vomiting/Diarrhea Stated complaint: LOOSE BOWELS,LOW POTASSIUM Time Seen by Provider: 07/09/19 22:09 Source: EMS Mode of arrival: Stretcher Limitations: Physical Limitation - History of Present Illness Initial comments: Patient is a 72-year-old male the patient's emergency room complaints of diarrhe a 1 day. Patient states he was just discharged from this hospital yesterday for missed dialysis and hyperkalemia. Patient states she is having muscle cramps at times. And he feels like his potassium was up again. Patient states he had dialysis prior to discharge here yesterday. Patient states he is due for dialysis tomorrow. Patient states that his diarrhea is worsening. Patient states he is having frequent loose stools. Patient denies abdominal pain. Patient denies fever chills. Patient denies nausea vomiting. Patient denies chest pain or shortness of breath. -: Sudden Associated Symptoms: weakness, other. denies: confusion, chest pain, cough, diaphoresis, fever/chills, headaches, loss of appetite, malaise, nausea/vomiting, rash, seizure, shortness of breath, syncope Treatments Prior to Arrival: none - Related Data Previous Rx's Medication Instructions Recorded Last Taken Type AtorvaSTATin [Lipitor] 40 mg PO QHS #30 05/22/19 Unknown Rx Epoetin Prashant 10,000 Unit [Procrit] 10,000 unit SUB-Q KATERYNA PRN vial 05/22/19 Unknown Rx Metoprolol [Lopressor TAB] 12.5 mg PO BID #60 tablet 05/22/19 Unknown Rx Oxycodone HCl [oxyCODONE] 10 mg PO Q6H PRN #20 05/22/19 Unknown Rx amLODIPine 20 mg PO DAILY #30 05/22/19 Unknown Rx Acetaminophen [Acetaminophen TAB] 1 tab PO Q4H PRN #15 tablet 07/08/19 Unknown Rx Allergies Allergy/AdvReac Type Severity Reaction Status Date / Time aspirin Allergy Unknown Verified 02/20/19 22:06 pork derived (porcine) Allergy Rash Verified 02/20/19 22:06 venom-honey bee Allergy Anaphylaxis Verified 02/20/19 22:06 [bee venom (honey bee)] Pork/Porcine Containing AdvReac Severe Nausea,VOMI Verified 02/20/19 22:06 Products TING ED Review of Systems ROS: Stated complaint: LOOSE BOWELS,LOW POTASSIUM Other details as noted in HPI Constitutional: weakness. denies: chills, fever Eyes: denies: eye pain, eye discharge, vision change ENT: denies: ear pain, throat pain Respiratory: denies: cough, shortness of breath, wheezing Cardiovascular: denies: chest pain, palpitations Endocrine: no symptoms reported Gastrointestinal: diarrhea. denies: abdominal pain, nausea Genitourinary: denies: urgency, dysuria Musculoskeletal: denies: back pain, joint swelling, arthralgia Skin: denies: rash, lesions Neurological: weakness. 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 abd surgery after war related ingury partial "stomach removal'. Left upper extremity amputation below elbow - Family History Family history: no significant - Social History Smoking Status: Never Smoker Substance Use Type: None - Medications Home Medications: Home Medications Medication Instructions Recorded Confirmed Last Taken Type AtorvaSTATin [Lipitor] 40 mg PO QHS #30 05/22/19 07/09/19 Unknown Rx Epoetin Prashant 10,000 Unit [Procrit] 10,000 unit SUB-Q KATERYNA PRN vial 05/22/19 07/09/19 Unknown Rx Metoprolol [Lopressor TAB] 12.5 mg PO BID #60 tablet 05/22/19 07/09/19 Unknown Rx Oxycodone HCl [oxyCODONE] 10 mg PO Q6H PRN #20 05/22/19 07/09/19 Unknown Rx amLODIPine 20 mg PO DAILY #30 05/22/19 07/09/19 Unknown Rx Acetaminophen [Acetaminophen TAB] 1 tab PO Q4H PRN #15 tablet 07/08/19 07/09/19 Unknown Rx ED Physical Exam - General Limitations: Physical Limitation General appearance: alert, in no apparent distress - Head Head exam: Present: atraumatic, normocephalic - Eye Eye exam: Present: normal appearance - ENT ENT exam: Present: mucous membranes moist - Neck Neck exam: Present: normal inspection - Respiratory Respiratory exam: Present: normal lung sounds bilaterally. Absent: respiratory distress, wheezes, rales, rhonchi - Cardiovascular Cardiovascular Exam: Present: regular rate, normal rhythm. Absent: systolic murmur, diastolic murmur, rubs, gallop - GI/Abdominal GI/Abdominal exam: Present: soft, normal bowel sounds - Rectal Rectal exam: Present: deferred - Extremities Exam Extremities exam: Present: normal inspection - Back Exam Back exam: Present: normal inspection - Neurological Exam Neurological exam: Present: alert, oriented X3 - Psychiatric Psychiatric exam: Present: normal affect, normal mood - Skin Skin exam: Present: warm, dry, intact, normal color. Absent: rash ED Course Vital Signs 07/09/19 07/09/19 07/09/19 21:46 21:52 22:00 Temperature 98.5 F Pulse Rate 112 H 111 H Respiratory 18 15 Rate Blood Pressure 125/87 125/87 129/94 O2 Sat by Pulse 99 Oximetry 07/09/19 22:15 Temperature Pulse Rate 112 H Respiratory 17 Rate Blood Pressure 130/84 O2 Sat by Pulse 100 Oximetry - Reevaluation(s) Reevaluation #1: I discussed all results patient discussed plan of care patient. Patient agrees to plan of care. Patient will be admitted to the hospitalist service. 07/10/19 00:36 - Consultations Consultation #1: Discussed case with nephrology, Dr. aranda. Dr. aranda recommends admission and calcium, Kayexalate and fluids. 07/10/19 00:34 Consultation #2: Hospitalist consult for admission. Hospitalist admit patient. 07/10/19 00:36 ED Medical Decision Making - Lab Data Result diagrams: 07/09/19 22:47 07/09/19 22:47 - Medical Decision Making Patient is a 72-year-old mellitus emergency with complaints of diarrhea and weakness. Patient's potassium 5.9. I discussed case with patient's associate product integrity engineer. Patient associate product integrity engineer wants patient admitted and patient to have potassium lowering agents. Patient given fluids ER. Patient admitted to the hospitalist service. - Differential Diagnosis weakness, diarrhea, dehydration, hyperkalemia, electrolyte imbalance. Critical Care Time: Yes Critical care time in (mins) excluding proc time.: 35 Critical care attestation.: If time is entered above; I have spent that time in minutes in the direct care of this critically ill patient, excluding procedure time. Critical Care Time: 35 ED Disposition Clinical Impression: Weakness, ESRD (end stage renal disease) on dialysis, Hyperkalemia Diarrhea Qualifiers: Diarrhea type: unspecified type Qualified Code(s): R19.7 - Diarrhea, unspecified Anemia Qualifiers: Anemia type: unspecified type Qualified Code(s): D64.9 - Anemia, unspecified Disposition: DC-09 OP ADMIT IP TO THIS HOSP Is pt being admited?: Yes Does the pt Need Aspirin: No Condition: Critical Time of Disposition: 00:38
[2019-07-09 23:51] LABS: Hematocrit 28.1 % (35.5-45.6); Hemoglobin 9.2 gm/dl (11.8-15.2); Mean Corpuscular HGB Conc 33 % (32-34); Mean Corpuscular Volume 99 fl (84-94); Platelet Count 104 K/mm3 (140-440); Red Blood Count 2.84 M/mm3 (3.65-5.03); Red Cell Distribution Width 19.8 % (13.2-15.2)
[2019-07-10] MEDS ORDERED: SODIUM CHLORIDE 0.9% 500 ML 500 ML IV ONE (00:05)
[2019-07-10 00:18] LABS: Albumin 2.6 g/dL (3.9-5); Calcium 8.2 mg/dL (8.4-10.2)
[2019-07-10] MEDS ORDERED: CALCIUM CHLORIDE 1,000 MG/10 ML SDV IVP ONE (00:37)
[2019-07-10] MEDS ORDERED: SODIUM POLYSTYRENE 15 GM/60 ML ORAL LIQD PO ONE (00:37)
--- NOTE | 2019-07-10 02:07 | History and Physical Report ---
History of Present Illness Date of examination: 07/10/19 Date of admission: 07/10/19 Chief complaint: Diarrhea History of present illness: Patient is 72-year-old male with a past medical history of end-stage renal disease on HD, A. fib, systolic heart failure, coronary artery disease, PTSD and COPD dependent on home oxygen at 3 L who presents to ER with complaints of diarrhea since this evening. Review of medical records show patient's recent discharge yesterday for missed dialysis and hyperkalemia. Patient states he "feels like his potassium might be up again" and experiencing shortness of breath intermittently. He currently denies fever, chills, or palpitations. Patient admitted for medical stabilization due to high likelihood of worsening symptoms and decompensation without dialysis. Past History Past Medical History: other (Noted in HPI) Past Surgical History: Other (neck and back surgery x3, Vessel taken from right thigh and placed in left upper arm d/t blood clot. abd surgery after war related ingury partial "stomach removal'. Left upper extremity amputation, multiple fingers amputation, AV fistula) Social history: other ((former smoker quit 5 yrs ago)) Family history: no significant family history Medications and Allergies Allergies Allergy/AdvReac Type Severity Reaction Status Date / Time aspirin Allergy Unknown Verified 02/20/19 22:06 pork derived (porcine) Allergy Rash Verified 02/20/19 22:06 venom-honey bee Allergy Anaphylaxis Verified 02/20/19 22:06 [bee venom (honey bee)] Pork/Porcine Containing AdvReac Severe Nausea,VOMI Verified 02/20/19 22:06 Products TING Home Medications Medication Instructions Recorded Confirmed Last Taken Type AtorvaSTATin [Lipitor] 40 mg PO QHS #30 05/22/19 07/09/19 Unknown Rx Epoetin Prashant 10,000 Unit [Procrit] 10,000 unit SUB-Q KATERYNA PRN vial 05/22/19 Unknown Rx Metoprolol [Lopressor TAB] 12.5 mg PO BID #60 tablet 05/22/19 07/09/19 Unknown Rx Oxycodone HCl [oxyCODONE] 10 mg PO Q6H PRN #20 05/22/19 07/09/19 Unknown Rx amLODIPine 20 mg PO DAILY #30 05/22/19 07/09/19 Unknown Rx Acetaminophen [Acetaminophen TAB] 1 tab PO Q4H PRN #15 tablet 07/08/19 07/09/19 Unknown Rx Review of Systems All systems: negative Respiratory: shortness of breath, home oxygen Gastrointestinal: nausea, diarrhea Exam - Physical Exam Narrative exam: - Physical Exam Narrative exam: Physical exam General appearance: Present: No acute distress, thin, well-developed, chronically ill appearing older adult male - EENT Eyes: Present: PERRL, EOM intact ENT: hearing intact, poor dentition - Neck Neck: Present: supple, normal ROM - Respiratory Respiratory effort: Non-labored Respiratory: bilateral: diminished (bases) - Cardiovascular Heart rate: 107 (bpm) Rhythm: regular Heart Sounds: Present: S1 & S2. Absent: rub, click - Extremities Extremities: no ischemia, pulses intact, abnormal (lower arm amputation) - Peripheral Assessment Peripheral Pulses: within normal limits - Abdominal General gastrointestinal: soft, non-tender, normal bowel sounds - Integumentary Integumentary: Present: warm, dry - Musculoskeletal Musculoskeletal: generalized weakness - Psychiatric Psychiatric: cooperative - Constitutional Vitals: Temp Pulse Resp BP Pulse Ox 98.5 F 116 H 28 H 128/85 100 07/09/19 21:52 07/10/19 00:45 07/10/19 00:45 07/10/19 00:45 07/10/19 00:45 ARSALAN score - Arsalan Score Age > 65: (1) Yes Aspirin use within the Past 7 Days: (1) Yes 3 or more CAD Risk Factors: (1) Yes 2 or more Angina events in past 24 hrs: (1) Yes Known CAD with more than 50% Stenosis: (0) No Elevated Cardiac Markers: (1) Yes ST Deviation Greater than 0.5mm: (0) No ARSALAN Score: 5 Results - Labs CBC & Chem 7: 07/09/19 22:47 07/09/19 22:47 Labs: Laboratory Last Values WBC 3.7 K/mm3 (4.5-11.0) L 07/09/19 22:47 RBC 2.84 M/mm3 (3.65-5.03) L 07/09/19 22:47 Hgb 9.2 gm/dl (11.8-15.2) L 07/09/19 22:47 Hct 28.1 % (35.5-45.6) L 07/09/19 22:47 MCV 99 fl (84-94) H 07/09/19 22:47 MCH 33 pg (28-32) H 07/09/19 22:47 MCHC 33 % (32-34) 07/09/19 22:47 RDW 19.8 % (13.2-15.2) H 07/09/19 22:47 Plt Count 104 K/mm3 (140-440) L 07/09/19 22:47 Sodium 138 mmol/L (137-145) 07/09/19 22:47 Potassium 5.9 mmol/L (3.6-5.0) H 07/09/19 22:47 Chloride 98.4 mmol/L (98-107) 07/09/19 22:47 Carbon Dioxide 25 mmol/L (22-30) 07/09/19 22:47 Anion Gap 21 mmol/L 07/09/19 22:47 BUN 49 mg/dL (9-20) H 07/09/19 22:47 Creatinine 5.1 mg/dL (0.8-1.5) H 07/09/19 22:47 Estimated GFR 14 ml/min 07/09/19 22:47 BUN/Creatinine Ratio 10 % 07/09/19 22:47 Glucose 164 mg/dL (75-100) H 07/09/19 22:47 Calcium 8.2 mg/dL (8.4-10.2) L 07/09/19 22:47 Total Bilirubin 0.50 mg/dL (0.1-1.2) 07/09/19 22:47 AST 55 units/L (5-40) H 07/09/19 22:47 ALT 36 units/L (7-56) 07/09/19 22:47 Alkaline Phosphatase 170 units/L (35-129) H 07/09/19 22:47 Total Protein 6.4 g/dL (6.3-8.2) 07/09/19 22:47 Albumin 2.6 g/dL (3.9-5) L 07/09/19 22:47 Albumin/Globulin Ratio 0.7 % 07/09/19 22:47 - Imaging and Cardiology EKG: report reviewed (sinus tachycardia; normal STs except for flipped T waves in the lateral leads) Assessment and Plan Assessment and plan: ESRD (end stage renal disease) on dialysis -Monday dialysis -Nephrology consulted in ED Acute hyperkalemia -Treated with Kayexalate, Calcium Gluconate in the ER -HD to schedule -Monitor labs CHF (congestive heart failure) -Strict I/O, daily weight -monitor uop q shift -afterload reduction -blood pressure control Acidosis -supportive care, -repeat labs in AM HTN (hypertension) -Cont antihypertensives and adjust meds as necessary Diarrhea -Since resolved in the ER -Antidiarrheal PRN A-fib -EKG shows Sinus rhythm -Rate control with home meds once reconciled Anemia -due to chronic kidney disease -Continue home meds once reconciled DVT prophylaxis -SCDs bilaterally - Heparin and GI prophylaxis VTE prophylaxis?: Chemical Reason for no VTE Prophylaxis: Anticoagulant allergy Plan of care discussed with patient/family: Yes
[2019-07-10] MEDS ORDERED: ONDANSETRON 4 MG/2 ML INJ IV PRN (02:08)
[2019-07-10] MEDS ORDERED: HEPARIN 10,000 UNITS/10 ML VIAL IV PRN (02:08)
[2019-07-10] MEDS ORDERED: SODIUM CHLORIDE 0.9% 100 ML IV PRN ×2 (02:08→08:00)
[2019-07-10] MEDS ORDERED: NON-FORMULARY EACH (Oxycodone Hcl [Oxycodone] 10 MG) PO PRN (02:11)
[2019-07-10] MEDS ORDERED: CALCIUM CHLORIDE 1,000 MG in SODIUM CHLORIDE 0.9% 100 ML IV ONE (02:30)
[2019-07-10 03:26] LABS: Band Neutrophils # (Manual) 0.3 K/mm3; Target Cells Rare; Total Cells Counted 100
[2019-07-10 03:29] LABS: Tear Drop Cells Rare
[2019-07-10 03:30] LABS: Platelet Estimate Consistent w Auto
[2019-07-10] MEDS ORDERED: oxyCODONE 5 MG TAB ONE (05:04)
[2019-07-10] MEDS: oxyCODONE 5 MG TAB PO PRN ×2 (05:06→17:45)
[2019-07-10] MEDS ORDERED: SODIUM CHLORIDE*PRIMING MACHINE ONLY FOR DIALYSIS MC ONE (11:19)
[2019-07-10] MEDS ORDERED: diphenhydrAMINE 50 MG/ML VIAL ONE (12:11)
[2019-07-10] MEDS: amLODIPine 10 MG TAB PO SCH (16:19)
[2019-07-10] MEDS: METOPROLOL TARTRATE 25 MG TAB PO SCH ×2 (16:19→21:38)
--- NOTE | 2019-07-10 21:03 | Consultation ---
History of Present Illness - Reason for Consult Consult date: 07/10/19 end stage renal disease, hyperkalemia - History of Present Illness The patient is a 72 YO male who is known to our service with history significant for DM type 2, HTN, Chronic A.fib, CAD, CHF, PTSD, PAD s/p left forearm ampu tation, chronic L pleural effusion (Transudate) s/p multiple thoracentesis and ESRD on hemodialysis (TTS) who presented to [facility] ED 07/10 with c/o diarrhea. He was discharged from this facility on 07/08 and was last dialyzed on 07/08/2019. Pt has transportation issues that makes him difficult to go to the outpatient dialysis clinic. He denies N, V, D, CP, fever, chills, dizziness, vomiting, abd pain, leg swelling or weakness. Labs were significant for K 5.9. Pt was admitted for further management. Nephrology was consulted for further evaluation. Past History Past Medical History: other (Noted in HPI) Past Surgical History: Other (neck and back surgery x3, Vessel taken from right thigh and placed in left upper arm d/t blood clot. abd surgery after war related ingury partial "stomach removal'. Left upper extremity amputation, multiple fingers amputation, AV fistula) Social history: other ((former smoker quit 5 yrs ago)) Family history: no significant family history Medications and Allergies Allergies Allergy/AdvReac Type Severity Reaction Status Date / Time aspirin Allergy Unknown Verified 02/20/19 22:06 pork derived (porcine) Allergy Rash Verified 02/20/19 22:06 venom-honey bee Allergy Anaphylaxis Verified 02/20/19 22:06 [bee venom (honey bee)] Pork/Porcine Containing AdvReac Severe Nausea,VOMI Verified 02/20/19 22:06 Products TING Home Medications Medication Instructions Recorded Confirmed Last Taken Type AtorvaSTATin [Lipitor] 40 mg PO QHS #30 05/22/19 07/09/19 Unknown Rx Epoetin Prashant 10,000 Unit [Procrit] 10,000 unit SUB-Q KATERYNA PRN vial 05/22/19 07/09/19 Unknown Rx Metoprolol [Lopressor TAB] 12.5 mg PO BID #60 tablet 05/22/19 07/09/19 Unknown Rx Oxycodone HCl [oxyCODONE] 10 mg PO Q6H PRN #20 05/22/19 07/09/19 Unknown Rx amLODIPine 20 mg PO DAILY #30 05/22/19 07/09/19 Unknown Rx Acetaminophen [Acetaminophen TAB] 1 tab PO Q4H PRN #15 tablet 07/08/19 07/09/19 Unknown Rx Active Meds: Active Medications Acetaminophen (Tylenol) 650 mg PO Q4H PRN PRN Reason: Pain MILD(1-3)/Fever >100.5/DOUGLAS Amlodipine Besylate (Amlodipine) 20 mg PO DAILY [facility] Last Admin: 07/10/19 16:19 Dose: 20 mg Documented by: Atorvastatin Calcium (Lipitor) 40 mg PO QHS [facility] Epoetin Prashant (Procrit) 10,000 unit SUB-Q KATERYNA PRN PRN Reason: hemodialysis Heparin Sodium (Porcine) (Heparin 10,000 Units/10 Ml) 1,000 unit IV KATERYNA PRN PRN Reason: hemodialysis Sodium Chloride (Nacl 0.9%) 100 mls @ 999 mls/hr IV KATERYNA PRN PRN Reason: Hypotension Metoprolol Tartrate (Metoprolol) 12.5 mg PO BID [facility] Last Admin: 07/10/19 16:19 Dose: 12.5 mg Documented by: Ondansetron HCl (Zofran) 4 mg IV Q8H PRN PRN Reason: Nausea And Vomiting Oxycodone HCl (Roxicodone) 10 mg PO Q6H PRN PRN Reason: Pain, Moderate (4-6) Last Admin: 07/10/19 17:45 Dose: 10 mg Documented by: Pneumococcal Polyvalent Vaccine (Pneumovax 23) 0.5 ml IM .ONCE ONE Stop: 07/11/19 12:01 Sodium Chloride (Sodium Chloride Flush Syringe 10 Ml) 10 ml IV BID [facility] Sodium Chloride (Sodium Chloride Flush Syringe 10 Ml) 10 ml IV PRN PRN PRN Reason: LINE FLUSH Review of Systems Constitutional: no weight loss, no weight gain, no fever, no chills, no anorexia, no weakness Cardiovascular: shortness of breath, high blood pressure, no chest pain, no orthopnea, no edema, no syncope, no lightheadedness, no leg edema Respiratory: shortness of breath, no cough, no hemoptysis Gastrointestinal: diarrhea, no abdominal pain, no nausea, no vomiting, no melena Genitourinary Male: no dysuria, no hematuria Rectal: no bleeding Musculoskeletal: no muscle weakness, no muscle cramps Integumentary: no wounds, no jaundice Neurological: no seizures, no syncope, no convulsions, no aphasia, no change in speech, no change in mentation, no confusion Exam - Vital Signs Vital signs: Vital Signs BP 125/87 07/09/19 21:46 - General Appearance General appearance: well-developed, appears stated age, other (not in distress, R IJ tunnel catheter) EENT: ATNC, PERRL, hearing intact, vision intact Neck: Present: neck supple, trachea midline Respiratory: Clear to Ascultation Heart: S1S2, no murmurs Gastrointestinal: Present: normoactive bowel sounds. Absent: tenderness, distended Integumentary: no rash, warm and dry Neurologic: no focal deficit, no asterixis, alert and oriented x3 Musculoskeletal: Present: other (L forearm amputation, R arm AVF) Results - Lab Results 07/09/19 22:47 07/10/19 09:10 Most recent lab results Calcium 8.2 mg/dL (8.4-10.2) L 07/09/19 22:47 Assessment and Plan 1. ESRD: Patient was admitted with hyperkalemia. Continue hemodialysis three times a week, MWF schedule. HD today. 2. FEN: Hyperkalemia, HD today. HD with low K bath. Renal diet. Monitor. 3. Diarrhea. 4. Chronic pleural effusion. 5. Chronic A.fib. 6. HTN. 7. Anemia: Epogen if needed. 8. PAD.
[2019-07-11] MEDS: METOPROLOL TARTRATE 25 MG TAB PO SCH ×2 (09:27→22:22)
[2019-07-11] MEDS: amLODIPine 10 MG TAB PO SCH (09:27)
--- NOTE | 2019-07-11 09:50 | Progress Note ---
Assessment and Plan 1. ESRD: Patient was admitted with hyperkalemia. Continue hemodialysis three times a week, MWF schedule. Hemodialysis: 07/10. 2. FEN: Hyperkalemia, s/p HD 07/10. HD with low K bath. Kayexalate ordered. Renal diet. Monitor. 3. Diarrhea: Resolved. 4. Chronic pleural effusion. 5. Chronic A.fib. 6. HTN. 7. Anemia: Epogen if needed. 8. PAD. Examination: General appearance: well-developed, appears stated age, not in distress HEENT: ATNC, ELENI, hearing intact, vision intact Neck: neck supple, trachea midline Respiratory: Clear to Ascultation Heart: S1S2, irregular, no murmurs Gastrointestinal: soft, normoactive bowel sounds, NT, ND Integumentary: no rash, warm and dry Neurologic: no focal deficit, no asterixis, alert and oriented x3 Ext: L forearm amputation, no edema Hemodialysis access: R IJ tunnel catheter Subjective Date of service: 07/11/19 Interval history: Patient was seen and examined at the bedside. Doing ok. Objective - Vital Signs Vital signs: Vital Signs - 12hr 07/10/19 07/11/19 07/11/19 23:00 00:00 04:03 Temperature 98.5 F 98.6 F Pulse Rate 102 H 118 H 112 H Pulse Rate [ Apical] Pulse Rate [ Left Radial] Pulse Rate [ Right Radial] Respiratory 20 20 Rate Blood Pressure 104/71 126/90 O2 Sat by Pulse 100 100 Oximetry 07/11/19 07/11/19 07/11/19 08:21 09:04 09:27 Temperature 98.5 F Pulse Rate 114 H 114 H Pulse Rate [ 112 H Apical] Pulse Rate [ 112 H Left Radial] Pulse Rate [ 112 H Right Radial] Respiratory 19 20 Rate Blood Pressure 130/93 130/93 O2 Sat by Pulse 99 100 Oximetry - Lab 07/11/19 11:55 07/11/19 11:55 Most recent lab results Calcium 8.2 mg/dL (8.4-10.2) L 07/09/19 22:47 Medications & Allergies - Medications Allergies/Adverse Reactions: Allergies aspirin Allergy (Verified 02/20/19 22:06) Unknown stomach cramps pork derived (porcine) Allergy (Verified 02/20/19 22:06) Rash venom-honey bee [bee venom (honey bee)] Allergy (Verified 02/20/19 22:06) Anaphylaxis Pork/Porcine Containing Products Adverse Reaction (Severe, Verified 02/20/19 22:06) Nausea,VOMITING Home Medications: Home Medications Medication Instructions Recorded Confirmed Last Taken Type AtorvaSTATin [Lipitor] 40 mg PO QHS #30 05/22/19 07/09/19 Unknown Rx Epoetin Prashant 10,000 Unit [Procrit] 10,000 unit SUB-Q KATERYNA PRN vial 05/22/19 07/09/19 Unknown Rx Metoprolol [Lopressor TAB] 12.5 mg PO BID #60 tablet 05/22/19 07/09/19 Unknown Rx Oxycodone HCl [oxyCODONE] 10 mg PO Q6H PRN #20 05/22/19 07/09/19 Unknown Rx amLODIPine 20 mg PO DAILY #30 05/22/19 07/09/19 Unknown Rx Acetaminophen [Acetaminophen TAB] 1 tab PO Q4H PRN #15 tablet 07/08/19 07/09/19 Unknown Rx Active Medications: Generic Name Dose Route Start Last Admin Trade Name Freq PRN Reason Stop Dose Admin Acetaminophen 650 mg 07/10/19 02:08 Tylenol PO Q4H PRN Pain MILD(1-3)/Fever >100.5/DOUGLAS Amlodipine Besylate 20 mg 07/10/19 10:00 07/11/19 09:27 Amlodipine PO 20 mg DAILY BEAN Administration Atorvastatin Calcium 40 mg 07/10/19 22:00 07/10/19 21:38 Lipitor PO 40 mg QHS BEAN Administration Epoetin Prashant 10,000 unit 07/10/19 02:11 Procrit SUB-Q KATERYNA PRN hemodialysis Heparin Sodium (Porcine) 1,000 unit 07/10/19 02:08 Heparin 10,000 Units/10 Ml IV KATERYNA PRN hemodialysis Sodium Chloride 100 mls @ 999 mls/hr 07/10/19 08:00 Nacl 0.9% IV KATERYNA PRN Hypotension Metoprolol Tartrate 12.5 mg 07/10/19 10:00 07/11/19 09:27 Metoprolol PO 12.5 mg BID BEAN Administration Ondansetron HCl 4 mg 07/10/19 02:08 Zofran IV Q8H PRN Nausea And Vomiting Oxycodone HCl 10 mg 07/10/19 02:19 07/10/19 17:45 Roxicodone PO 10 mg Q6H PRN Administration Pain, Moderate (4-6) Pneumococcal Polyvalent Vaccine 0.5 ml 07/11/19 12:00 Pneumovax 23 IM 07/11/19 12:01 .ONCE ONE Sodium Chloride 10 ml 07/10/19 10:00 07/11/19 09:29 Sodium Chloride Flush Syringe 10 Ml IV 10 ml BID BEAN Administration Sodium Chloride 10 ml 07/10/19 02:08 Sodium Chloride Flush Syringe 10 Ml IV PRN PRN LINE FLUSH
[2019-07-11] MEDS ORDERED: PNEUMOCOCCAL 23 Valent 0.5 ML VIAL IM ONE (12:00)
[2019-07-11] MEDS ORDERED: FLU VACC QUAD 2019-20 (3 YR UP)/PF 60 MCG/0.5 ML SYRINGE IM ONE (12:00)
[2019-07-11] MEDS: diphenhydrAMINE 50 MG/ML VIAL IV PRN ×2 (12:17→18:18)
[2019-07-11 12:28] LABS: Hematocrit 29.7 % (35.5-45.6); Hemoglobin 9.8 gm/dl (11.8-15.2); Mean Corpuscular HGB Conc 33 % (32-34); Mean Corpuscular Volume 98 fl (84-94); Platelet Count 112 K/mm3 (140-440); Red Blood Count 3.03 M/mm3 (3.65-5.03); Red Cell Distribution Width 19.2 % (13.2-15.2)
[2019-07-11 12:53] LABS: Calcium 8.8 mg/dL (8.4-10.2)
[2019-07-11 13:20] LABS: Anisocytosis Few; Ovalocytes Rare; Platelet Estimate Consistent w Auto; Poikilocytosis Few; Target Cells Rare; Total Cells Counted 100
--- NOTE | 2019-07-11 15:48 | Progress Note ---
Assessment and Plan ESRD (end stage renal disease) on dialysis -Monday dialysis -Needs Dialysis placement manager research development involved Acute hyperkalemia -Treated with Kayexalate, Calcium Gluconate in the ER -HD to schedule -Monitor labs CHF (congestive heart failure) -Strict I/O, daily weight -monitor uop q shift -afterload reduction -blood pressure control Acidosis -supportive care, -repeat labs in AM HTN (hypertension) -Cont antihypertensives and adjust meds as necessary Diarrhea -Since resolved in the ER -Antidiarrheal PRN A-fib -EKG shows Sinus rhythm -Rate control with home meds once reconciled Anemia -due to chronic kidney disease -Continue home meds once reconciled DVT prophylaxis -SCDs bilaterally - Heparin and GI prophylaxis VTE prophylaxis?: Chemical Reason for no VTE Prophylaxis: Anticoagulant allergy Plan of care discussed with patient/family: Yes Waiting for HD Chair Subjective Date of service: 07/11/19 Principal diagnosis: Volume overload Interval history: Patient is 72-year-old male with a past medical history of end-stage renal disease on HD, A. fib, systolic heart failure, coronary artery disease, PTSD and COPD dependent on home oxygen at 3 L who presents to ER with complaints of diarrhea since this evening. Review of medical records show patient's recent discharge yesterday for missed dialysis and hyperkalemia. Patient states he "feels like his potassium might be up again" and experiencing shortness of breath intermittently. He currently denies fever, chills, or palpitations. Patient admitted for medical stabilization due to high likelihood of worsening symptoms and decompensation without dialysis. Objective - Constitutional Vitals: Vital Signs - 12hr 07/11/19 07/11/19 07/11/19 04:03 08:21 09:00 Temperature 98.6 F Pulse Rate 112 H 108 H Pulse Rate [ 112 H Apical] Pulse Rate [ 112 H Left Radial] Pulse Rate [ 112 H Right Radial] Respiratory 20 19 Rate Blood Pressure 126/90 O2 Sat by Pulse 100 99 Oximetry 07/11/19 07/11/19 09:04 09:27 Temperature 98.5 F Pulse Rate 114 H 114 H Pulse Rate [ Apical] Pulse Rate [ Left Radial] Pulse Rate [ Right Radial] Respiratory 20 Rate Blood Pressure 130/93 130/93 O2 Sat by Pulse 100 Oximetry General appearance: Present: no acute distress, well-nourished - EENT Eyes: PERRL, EOM intact ENT: hearing intact, clear oral mucosa Ears: bilateral: normal - Neck Neck: supple, normal ROM - Respiratory Respiratory effort: normal Respiratory: bilateral: CTA - Breasts Breasts: normal - Cardiovascular Heart rate: 78 Rhythm: regular Heart Sounds: Present: S1 & S2. Absent: gallop, rub Extremities: pulses intact, No edema, normal color, Full ROM - Gastrointestinal General gastrointestinal: Present: soft, non-tender, non-distended, normal bowel sounds - Genitourinary Male genitourinary: normal - Integumentary Integumentary: clear, warm, dry - Musculoskeletal Musculoskeletal: 1, strength equal bilaterally - Neurologic Neurologic: moves all extremities - Psychiatric Psychiatric: memory intact, appropriate mood/affect, intact judgment & insight - Labs CBC & Chem 7: 07/11/19 11:55 07/11/19 11:55 Labs: Abnormal lab results 07/10/19 07/11/19 07/11/19 Range/Units 20:26 11:55 11:55 WBC 4.0 L (4.5-11.0) K/mm3 RBC 3.03 L (3.65-5.03) M/mm3 Hgb 9.8 L (11.8-15.2) gm/dl Hct 29.7 L (35.5-45.6) % MCV 98 H (84-94) fl RDW 19.2 H (13.2-15.2) % Plt Count 112 L (140-440) K/mm3 Monocytes % (Manual) 20.0 H (0.0-7.3) % Lymphocytes # (Manual) 1.0 L (1.2-5.4) K/mm3 Potassium 5.5 H (3.6-5.0) mmol/L Chloride 97.6 L (98-107) mmol/L BUN 32 H (9-20) mg/dL Creatinine 3.9 H (0.8-1.5) mg/dL Glucose 112 H (75-100) mg/dL POC Glucose 213 H (70-105)
[2019-07-11] MEDS ORDERED: SODIUM POLYSTYRENE 15 GM/60 ML ORAL LIQD PO ONE (21:32)
[2019-07-12] MEDS: diphenhydrAMINE 50 MG/ML VIAL IV PRN ×3 (01:20→19:59)
[2019-07-12 06:23] LABS: Calcium 8.2 mg/dL (8.4-10.2)
[2019-07-12] MEDS: METOPROLOL TARTRATE 25 MG TAB PO SCH ×2 (10:00→21:57)
[2019-07-12] MEDS: amLODIPine 10 MG TAB PO SCH (10:00)
[2019-07-12] MEDS ORDERED: SODIUM CHLORIDE*PRIMING MACHINE ONLY FOR DIALYSIS MC ONE (10:55)
--- NOTE | 2019-07-12 11:05 | Progress Note ---
Assessment and Plan Assessment and plan: ESRD (end stage renal disease) on dialysis -Monday dialysis -Needs Dialysis placement -building manager involved Acute hyperkalemia -Resolved CHF (congestive heart failure) -Strict I/O, daily weight -monitor uop q shift -afterload reduction -blood pressure control Acidosis -supportive care, -repeat labs in AM HTN (hypertension) -Cont antihypertensives and adjust meds as necessary Diarrhea -Since resolved in the ER -Antidiarrheal PRN A-fib -EKG shows Sinus rhythm -Rate control with home meds once reconciled Anemia -due to chronic kidney disease -Continue home meds once reconciled DVT prophylaxis -SCDs bilaterally - Heparin and GI prophylaxis History Interval history: No new issues overnight. Hospitalist Physical - Constitutional Vitals: Temp Pulse Resp BP Pulse Ox 98.3 F 112 H 18 134/90 100 07/12/19 07:43 07/12/19 05:02 07/12/19 07:43 07/12/19 07:43 07/12/19 05:02 General appearance: Present: no acute distress, well-nourished - EENT Eyes: Present: PERRL, EOM intact ENT: hearing intact, clear oral mucosa, dentition normal - Neck Neck: Present: supple, normal ROM - Respiratory Respiratory effort: normal Respiratory: bilateral: CTA - Cardiovascular Rhythm: regular Heart Sounds: Present: S1 & S2. Absent: gallop, rub - Extremities Extremities: no ischemia, No edema, Full ROM - Abdominal General gastrointestinal: soft, non-tender, non-distended, normal bowel sounds - Integumentary Integumentary: Present: clear, warm, dry - Neurologic Neurologic: CNII-XII intact, moves all extremities ROGER score - Roger Score Age > 65: (1) Yes Aspirin use within the Past 7 Days: (1) Yes 3 or more CAD Risk Factors: (1) Yes 2 or more Angina events in past 24 hrs: (1) Yes Known CAD with more than 50% Stenosis: (0) No Elevated Cardiac Markers: (1) Yes ST Deviation Greater than 0.5mm: (0) No ROGER Score: 5 Results - Labs CBC & Chem 7: 07/11/19 11:55 07/12/19 05:06 Labs: Laboratory Last Values WBC 4.0 K/mm3 (4.5-11.0) L 07/11/19 11:55 RBC 3.03 M/mm3 (3.65-5.03) L 07/11/19 11:55 Hgb 9.8 gm/dl (11.8-15.2) L 07/11/19 11:55 Hct 29.7 % (35.5-45.6) L 07/11/19 11:55 MCV 98 fl (84-94) H 07/11/19 11:55 MCH 32 pg (28-32) 07/11/19 11:55 MCHC 33 % (32-34) 07/11/19 11:55 RDW 19.2 % (13.2-15.2) H 07/11/19 11:55 Plt Count 112 K/mm3 (140-440) L 07/11/19 11:55 [place] % (Auto) Management Trainer 07/11/19 11:55 Add Manual Diff Complete 07/11/19 11:55 Total Counted 100 07/11/19 11:55 Seg Neuts % (Manual) 50.0 % (40.0-70.0) 07/11/19 11:55 Band Neutrophils % 0 % 07/11/19 11:55 Lymphocytes % (Manual) 26.0 % (13.4-35.0) 07/11/19 11:55 Reactive Lymphs % (Man) 0 % 07/11/19 11:55 Monocytes % (Manual) 20.0 % (0.0-7.3) H 07/11/19 11:55 Eosinophils % (Manual) 3.0 % (0.0-4.3) 07/11/19 11:55 Basophils % (Manual) 1.0 % (0.0-1.8) 07/11/19 11:55 Metamyelocytes % 0 % 07/11/19 11:55 Myelocytes % 0 % 07/11/19 11:55 Promyelocytes % 0 % 07/11/19 11:55 Blast Cells % 0 % 07/11/19 11:55 Nucleated RBC % Not Reportable 07/11/19 11:55 Seg Neutrophils # Man 2.0 K/mm3 (1.8-7.7) 07/11/19 11:55 Band Neutrophils # 0.0 K/mm3 07/11/19 11:55 Lymphocytes # (Manual) 1.0 K/mm3 (1.2-5.4) L 07/11/19 11:55 Abs React Lymphs (Man) 0.0 K/mm3 07/11/19 11:55 Monocytes # (Manual) 0.8 K/mm3 (0.0-0.8) 07/11/19 11:55 Eosinophils # (Manual) 0.1 K/mm3 (0.0-0.4) 07/11/19 11:55 Basophils # (Manual) 0.0 K/mm3 (0.0-0.1) 07/11/19 11:55 Metamyelocytes # 0.0 K/mm3 07/11/19 11:55 Myelocytes # 0.0 K/mm3 07/11/19 11:55 Promyelocytes # 0.0 K/mm3 07/11/19 11:55 Blast Cells # 0.0 K/mm3 07/11/19 11:55 WBC Morphology Not Reportable 07/11/19 11:55 Hypersegmented Neuts Not Reportable 07/11/19 11:55 Hyposegmented Neuts Not Reportable 07/11/19 11:55 Hypogranular Neuts Not Reportable 07/11/19 11:55 Smudge Cells Not Reportable 07/11/19 11:55 Toxic Granulation Not Reportable 07/11/19 11:55 Toxic Vacuolation Not Reportable 07/11/19 11:55 Dohle Bodies Not Reportable 07/11/19 11:55 Pelger-Huet Anomaly Not Reportable 07/11/19 11:55 Gertrude Rods Not Reportable 07/11/19 11:55 Platelet Estimate Consistent w auto 07/11/19 11:55 Clumped Platelets Not Reportable 07/11/19 11:55 Plt Clumps, EDTA Not Reportable 07/11/19 11:55 Large Platelets Not Reportable 07/11/19 11:55 Giant Platelets Not Reportable 07/11/19 11:55 Platelet Satelliting Not Reportable 07/11/19 11:55 Plt Morphology Comment Not Reportable 07/11/19 11:55 RBC Morphology Not Reportable 07/11/19 11:55 Dimorphic RBCs Not Reportable 07/11/19 11:55 Polychromasia Not Reportable 07/11/19 11:55 Hypochromasia Not Reportable 07/11/19 11:55 Poikilocytosis Few 07/11/19 11:55 Anisocytosis Few 07/11/19 11:55 Microcytosis Not Reportable 07/11/19 11:55 Macrocytosis Not Reportable 07/11/19 11:55 Spherocytes Not Reportable 07/11/19 11:55 Pappenheimer Bodies Not Reportable 07/11/19 11:55 Sickle Cells Not Reportable 07/11/19 11:55 Target Cells Rare 07/11/19 11:55 Tear Drop Cells Not Reportable 07/11/19 11:55 Ovalocytes Rare 07/11/19 11:55 Helmet Cells Not Reportable 07/11/19 11:55 [place] Bodies Not Reportable 07/11/19 11:55 [place] Rings Not Reportable 07/11/19 11:55 Priya Cells Not Reportable 07/11/19 11:55 Bite Cells Not Reportable 07/11/19 11:55 Crenated Cell Not Reportable 07/11/19 11:55 Elliptocytes Not Reportable 07/11/19 11:55 Acanthocytes (Spur) Not Reportable 07/11/19 11:55 Rouleaux Not Reportable 07/11/19 11:55 Hemoglobin C Crystals Not Reportable 07/11/19 11:55 Schistocytes Not Reportable 07/11/19 11:55 Malaria parasites Not Reportable 07/11/19 11:55 Jacob Bodies Not Reportable 07/11/19 11:55 Hem Pathologist Commnt No 07/11/19 11:55 Sodium 139 mmol/L (137-145) 07/12/19 05:06 Potassium 5.3 mmol/L (3.6-5.0) H 07/12/19 05:06 Chloride 98.5 mmol/L (98-107) 07/12/19 05:06 Carbon Dioxide 27 mmol/L (22-30) 07/12/19 05:06 Anion Gap 19 mmol/L 07/12/19 05:06 BUN 45 mg/dL (9-20) H 07/12/19 05:06 Creatinine 4.6 mg/dL (0.8-1.5) H 07/12/19 05:06 Estimated GFR 15 ml/min 07/12/19 05:06 BUN/Creatinine Ratio 10 % 07/12/19 05:06 Glucose 101 mg/dL (75-100) H 07/12/19 05:06 POC Glucose 130 (70-105) H 07/11/19 16:40 Calcium 8.2 mg/dL (8.4-10.2) L 07/12/19 05:06 Total Bilirubin 0.50 mg/dL (0.1-1.2) 07/09/19 22:47 AST 55 units/L (5-40) H 07/09/19 22:47 ALT 36 units/L (7-56) 07/09/19 22:47 Alkaline Phosphatase 170 units/L (35-129) H 07/09/19 22:47 Total Protein 6.4 g/dL (6.3-8.2) 07/09/19 22:47 Albumin 2.6 g/dL (3.9-5) L 07/09/19 22:47 Albumin/Globulin Ratio 0.7 % 07/09/19 22:47 Active Medications - Current Medications Current Medications: Generic Name Dose Route Start Last Admin Trade Name Freq PRN Reason Stop Dose Admin Acetaminophen 650 mg 07/10/19 02:08 Tylenol PO Q4H PRN Pain MILD(1-3)/Fever >100.5/DOUGLAS Amlodipine Besylate 20 mg 07/10/19 10:00 07/11/19 09:27 Amlodipine PO 20 mg DAILY BEAN Administration Atorvastatin Calcium 40 mg 07/10/19 22:00 07/11/19 22:22 Lipitor PO 40 mg QHS BEAN Administration Diphenhydramine HCl 25 mg 07/11/19 12:03 07/12/19 01:20 Benadryl IV 25 mg Q6H PRN Administration Itching Epoetin Prashant 10,000 unit 07/10/19 02:11 Procrit SUB-Q KATERYNA PRN hemodialysis Heparin Sodium (Porcine) 1,000 unit 07/10/19 02:08 Heparin 10,000 Units/10 Ml IV KATERYNA PRN hemodialysis Sodium Chloride 100 mls @ 999 mls/hr 07/10/19 08:00 Nacl 0.9% IV KATERYNA PRN Hypotension Metoprolol Tartrate 12.5 mg 07/10/19 10:00 07/11/19 22:22 Metoprolol PO 12.5 mg BID BEAN Administration Ondansetron HCl 4 mg 07/10/19 02:08 Zofran IV Q8H PRN Nausea And Vomiting Oxycodone HCl 10 mg 07/10/19 02:19 07/10/19 17:45 Roxicodone PO 10 mg Q6H PRN Administration Pain, Moderate (4-6) Sodium Chloride 10 ml 07/10/19 10:00 07/11/19 22:24 Sodium Chloride Flush Syringe 10 Ml IV 10 ml BID BEAN Administration Sodium Chloride 10 ml 07/10/19 02:08 Sodium Chloride Flush Syringe 10 Ml IV PRN PRN LINE FLUSH
--- NOTE | 2019-07-12 12:17 | Progress Note ---
Assessment and Plan 1. ESRD: Patient was admitted with hyperkalemia. Continue hemodialysis three times a week, MWF schedule. Hemodialysis: 07/10, 07/12. 2. FEN: Hyperkalemia, HD today. HD with low K bath. Renal diet. Monitor. 3. Diarrhea: Resolved. 4. Chronic pleural effusion. 5. Chronic A.fib. 6. HTN. 7. Anemia: Epogen if needed. 8. PAD. Await outpatient HD chair. Examination: General appearance: well-developed, appears stated age, not in distress HEENT: ATNC, ELENI, hearing intact, vision intact Neck: neck supple, trachea midline Respiratory: Clear to Ascultation Heart: S1S2, irregular, no murmur Gastrointestinal: soft, normoactive bowel sounds, NT, ND Integumentary: no rash, warm and dry Neurologic: no focal deficit, no asterixis, alert and oriented x3 Ext: L forearm amputation, no edema Hemodialysis access: R IJ tunnel catheter, R arm AVF Subjective Date of service: 07/12/19 Principal diagnosis: Volume overload Interval history: Patient was seen and examined at the bedside while on HD. Doing ok. Objective - Vital Signs Vital signs: Vital Signs - 12hr 07/12/19 07/12/19 07/12/19 05:02 07:43 10:00 Temperature 98.5 F 98.3 F 98.3 F Pulse Rate 112 H 111 H Respiratory 20 18 18 Rate Blood Pressure 125/89 134/90 124/80 O2 Sat by Pulse 100 Oximetry 07/12/19 07/12/19 07/12/19 10:15 10:30 10:45 Temperature Pulse Rate 111 H 112 H 107 H Respiratory Rate Blood Pressure 124/82 123/79 125/84 O2 Sat by Pulse Oximetry 07/12/19 11:00 Temperature Pulse Rate 115 H Respiratory Rate Blood Pressure 132/84 O2 Sat by Pulse Oximetry - Lab 07/11/19 11:55 07/12/19 05:06 Most recent lab results Calcium 8.2 mg/dL (8.4-10.2) L 07/12/19 05:06 Medications & Allergies - Medications Allergies/Adverse Reactions: Allergies aspirin Allergy (Verified 02/20/19 22:06) Unknown stomach cramps pork derived (porcine) Allergy (Verified 02/20/19 22:06) Rash venom-honey bee [bee venom (honey bee)] Allergy (Verified 02/20/19 22:06) Anaphylaxis Pork/Porcine Containing Products Adverse Reaction (Severe, Verified 02/20/19 22:06) Nausea,VOMITING Home Medications: Home Medications Medication Instructions Recorded Confirmed Last Taken Type AtorvaSTATin [Lipitor] 40 mg PO QHS #30 05/22/19 07/09/19 Unknown Rx Epoetin Prashant 10,000 Unit [Procrit] 10,000 unit SUB-Q KATERYNA PRN vial 05/22/19 07/09/19 Unknown Rx Metoprolol [Lopressor TAB] 12.5 mg PO BID #60 tablet 05/22/19 07/09/19 Unknown Rx Oxycodone HCl [oxyCODONE] 10 mg PO Q6H PRN #20 05/22/19 07/09/19 Unknown Rx amLODIPine 20 mg PO DAILY #30 05/22/19 07/09/19 Unknown Rx Acetaminophen [Acetaminophen TAB] 1 tab PO Q4H PRN #15 tablet 07/08/19 07/09/19 Unknown Rx Active Medications: Generic Name Dose Route Start Last Admin Trade Name Freq PRN Reason Stop Dose Admin Acetaminophen 650 mg 07/10/19 02:08 Tylenol PO Q4H PRN Pain MILD(1-3)/Fever >100.5/DOUGLAS Amlodipine Besylate 20 mg 07/10/19 10:00 07/11/19 09:27 Amlodipine PO 20 mg DAILY BEAN Administration Atorvastatin Calcium 40 mg 07/10/19 22:00 07/11/19 22:22 Lipitor PO 40 mg QHS BEAN Administration Diphenhydramine HCl 25 mg 07/11/19 12:03 07/12/19 11:00 Benadryl IV 25 mg Q6H PRN Administration Itching Epoetin Prashant 10,000 unit 07/10/19 02:11 Procrit SUB-Q KATERYNA PRN hemodialysis Heparin Sodium (Porcine) 1,000 unit 07/10/19 02:08 Heparin 10,000 Units/10 Ml IV KATERYNA PRN hemodialysis Sodium Chloride 100 mls @ 999 mls/hr 07/10/19 08:00 Nacl 0.9% IV KATERYNA PRN Hypotension Metoprolol Tartrate 12.5 mg 07/10/19 10:00 07/11/19 22:22 Metoprolol PO 12.5 mg BID BEAN Administration Ondansetron HCl 4 mg 07/10/19 02:08 Zofran IV Q8H PRN Nausea And Vomiting Oxycodone HCl 10 mg 07/10/19 02:19 07/10/19 17:45 Roxicodone PO 10 mg Q6H PRN Administration Pain, Moderate (4-6) Sodium Chloride 10 ml 07/10/19 10:00 07/11/19 22:24 Sodium Chloride Flush Syringe 10 Ml IV 10 ml BID BEAN Administration Sodium Chloride 10 ml 07/10/19 02:08 Sodium Chloride Flush Syringe 10 Ml IV PRN PRN LINE FLUSH
[2019-07-12] MEDS: EPOETIN ALFA 10,000 UNIT/1 ML INJ SUB-Q PRN (13:00)
[2019-07-13 04:13] LABS: Calcium 8.6 mg/dL (8.4-10.2)
[2019-07-13] MEDS: amLODIPine 10 MG TAB PO SCH (09:33)
[2019-07-13] MEDS: METOPROLOL TARTRATE 25 MG TAB PO SCH ×2 (09:34→21:46)
[2019-07-13] MEDS: diphenhydrAMINE 50 MG/ML VIAL IV PRN ×2 (09:35→18:50)
--- NOTE | 2019-07-13 10:53 | Consultation ---
History of Present Illness Consult date: 07/13/19 Consult reason: atrial fibrillation, congestive heart failure History of present illness: 72-year old male with multiple medical problems. He has chronic atrial fibrillation previously considered no longer a candidate for oral anticoagulation due to increase risk for falls and bleeding. He has severe dilated nonischemic cardiomyopathy and single vessel, nonobstructive disease of the LAD noted on a cardiac catheterization January of 2017. His latest cardiac workup was done at this hospital 4 months ago. He had a persantine thallium stress test that reports a no ischemia, ejection fraction 25-30% by echocardiogram. Co-morbidities includes end-stage renal disease on hemodialysis and recurrent pleural effusion requiring frequent thoracentesis. He is now admitted with hyperkalemia Past History Past Medical History: other (Noted in HPI) Past Surgical History: Other (neck and back surgery x3, Vessel taken from right thigh and placed in left upper arm d/t blood clot. abd surgery after war related ingury partial "stomach removal'. Left upper extremity amputation, multiple fingers amputation, AV fistula) Social history: other ((former smoker quit 5 yrs ago)) Family history: no significant family history Medications and Allergies Allergies Allergy/AdvReac Type Severity Reaction Status Date / Time aspirin Allergy Unknown Verified 02/20/19 22:06 pork derived (porcine) Allergy Rash Verified 02/20/19 22:06 venom-honey bee Allergy Anaphylaxis Verified 02/20/19 22:06 [bee venom (honey bee)] Pork/Porcine Containing AdvReac Severe Nausea,VOMI Verified 02/20/19 22:06 Products TING Home Medications Medication Instructions Recorded Confirmed Last Taken Type AtorvaSTATin [Lipitor] 40 mg PO QHS #30 05/22/19 07/09/19 Unknown Rx Epoetin Prashant 10,000 Unit [Procrit] 10,000 unit SUB-Q KATERYNA PRN vial 05/22/19 07/09/19 Unknown Rx Metoprolol [Lopressor TAB] 12.5 mg PO BID #60 tablet 05/22/19 07/09/19 Unknown Rx Oxycodone HCl [oxyCODONE] 10 mg PO Q6H PRN #20 05/22/19 07/09/19 Unknown Rx amLODIPine 20 mg PO DAILY #30 05/22/19 07/09/19 Unknown Rx Acetaminophen [Acetaminophen TAB] 1 tab PO Q4H PRN #15 tablet 07/08/19 07/09/19 Unknown Rx Active Meds: Active Medications Acetaminophen (Tylenol) 650 mg PO Q4H PRN PRN Reason: Pain MILD(1-3)/Fever >100.5/DOUGLAS Amlodipine Besylate (Amlodipine) 20 mg PO DAILY [facility] Last Admin: 07/13/19 09:33 Dose: 20 mg Documented by: Atorvastatin Calcium (Lipitor) 40 mg PO QHS [facility] Last Admin: 07/12/19 21:57 Dose: 40 mg Documented by: Diphenhydramine HCl (Benadryl) 25 mg IV Q6H PRN PRN Reason: Itching Last Admin: 07/13/19 09:35 Dose: 25 mg Documented by: Epoetin Prashant (Procrit) 10,000 unit SUB-Q KATERYNA PRN PRN Reason: hemodialysis Last Admin: 07/12/19 13:00 Dose: 10,000 unit Documented by: Heparin Sodium (Porcine) (Heparin 10,000 Units/10 Ml) 1,000 unit IV KATERYNA PRN PRN Reason: hemodialysis Sodium Chloride (Nacl 0.9%) 100 mls @ 999 mls/hr IV KATERYNA PRN PRN Reason: Hypotension Metoprolol Tartrate (Metoprolol) 12.5 mg PO BID [facility] Last Admin: 07/13/19 09:34 Dose: 12.5 mg Documented by: Ondansetron HCl (Zofran) 4 mg IV Q8H PRN PRN Reason: Nausea And Vomiting Oxycodone HCl (Roxicodone) 10 mg PO Q6H PRN PRN Reason: Pain, Moderate (4-6) Last Admin: 07/10/19 17:45 Dose: 10 mg Documented by: Sodium Chloride (Sodium Chloride Flush Syringe 10 Ml) 10 ml IV BID [facility] Last Admin: 07/13/19 09:35 Dose: 10 ml Documented by: Sodium Chloride (Sodium Chloride Flush Syringe 10 Ml) 10 ml IV PRN PRN PRN Reason: LINE FLUSH Physical Examination Vital Signs BP 125/87 07/09/19 21:46 General appearance: no acute distress Cardiac: Positive: Irregularly Regular, Tachycardia Lungs: Positive: Normal Exam Abdomen: Positive: Soft, Active Bowel Sounds Extremities: Present: +1 Edema Results 07/11/19 11:55 07/13/19 04:00 Comprehensive Metabolic Panel 07/13/19 Range/Units 04:00 Sodium 138 (137-145) mmol/L Potassium 3.9 D (3.6-5.0) mmol/L Chloride 96.3 L (98-107) mmol/L Carbon Dioxide 30 (22-30) mmol/L BUN 23 H (9-20) mg/dL Creatinine 3.2 H (0.8-1.5) mg/dL Glucose 104 H (75-100) mg/dL Calcium 8.6 (8.4-10.2) mg/dL Assessment and Plan 1. Persistent atrial flutter and fibrillation: Not anticoagulated due to r ecurrent falls 2. NICMP 3. ESRD on HD Recommend: Fluid electrlyte management with dialysis Continue current GDMT for NICMP. Unable to use BEATRICE inhibitor or ARB due to frequent hyperkalemia
--- NOTE | 2019-07-13 12:15 | Progress Note ---
Assessment and Plan Assessment and plan: ESRD (end stage renal disease) on dialysis -Monday dialysis -Needs Dialysis placement -credit analysis manager involved Acute hyperkalemia -Resolved CHF (congestive heart failure) -Strict I/O, daily weight -monitor uop q shift -afterload reduction -blood pressure control Acidosis -supportive care, -repeat labs in AM HTN (hypertension) -Cont antihypertensives and adjust meds as necessary Diarrhea -Since resolved in the ER -Antidiarrheal PRN A-fib -EKG shows Sinus rhythm -Rate control with home meds once reconciled Anemia -due to chronic kidney disease -Continue home meds once reconciled DVT prophylaxis -SCDs bilaterally - Heparin and GI prophylaxis Disposition. Patient is a readmit due to dialysis scheduling conflict with Joann spoke with a Ms Jackson [phone]. However, [facility], Ms Hutchinson called stated that they may have a chair time but will need to have there Quality Head sign clinicals, and asking if pt can stay until Monday for official chair time. Anticipate discharge Monday. History Interval history: No new issues overnight. Hospitalist Physical - Constitutional Vitals: Temp Pulse Resp BP Pulse Ox 97.9 F 120 H 18 128/88 99 07/13/19 07:53 07/13/19 09:34 07/13/19 07:53 07/13/19 09:34 07/13/19 07:53 General appearance: Present: no acute distress - EENT Eyes: Present: PERRL, EOM intact ENT: hearing intact, clear oral mucosa, dentition normal - Neck Neck: Present: supple, normal ROM - Respiratory Respiratory effort: normal Respiratory: bilateral: CTA - Cardiovascular Rhythm: regular Heart Sounds: Present: S1 & S2. Absent: gallop, rub - Extremities Extremities: no ischemia, No edema, Full ROM - Abdominal General gastrointestinal: soft, non-tender, non-distended, normal bowel sounds - Integumentary Integumentary: Present: clear, warm, dry - Neurologic Neurologic: CNII-XII intact, moves all extremities ROGER score - Roger Score Age > 65: (1) Yes Aspirin use within the Past 7 Days: (1) Yes 3 or more CAD Risk Factors: (1) Yes 2 or more Angina events in past 24 hrs: (1) Yes Known CAD with more than 50% Stenosis: (0) No Elevated Cardiac Markers: (1) Yes ST Deviation Greater than 0.5mm: (0) No ROGER Score: 5 Results - Labs CBC & Chem 7: 07/11/19 11:55 07/13/19 04:00 Labs: Laboratory Last Values WBC 4.0 K/mm3 (4.5-11.0) L 07/11/19 11:55 RBC 3.03 M/mm3 (3.65-5.03) L 07/11/19 11:55 Hgb 9.8 gm/dl (11.8-15.2) L 07/11/19 11:55 Hct 29.7 % (35.5-45.6) L 07/11/19 11:55 MCV 98 fl (84-94) H 07/11/19 11:55 MCH 32 pg (28-32) 07/11/19 11:55 MCHC 33 % (32-34) 07/11/19 11:55 RDW 19.2 % (13.2-15.2) H 07/11/19 11:55 Plt Count 112 K/mm3 (140-440) L 07/11/19 11:55 [place] % (Auto) Heel Splitter 07/11/19 11:55 Add Manual Diff Complete 07/11/19 11:55 Total Counted 100 07/11/19 11:55 Seg Neuts % (Manual) 50.0 % (40.0-70.0) 07/11/19 11:55 Band Neutrophils % 0 % 07/11/19 11:55 Lymphocytes % (Manual) 26.0 % (13.4-35.0) 07/11/19 11:55 Reactive Lymphs % (Man) 0 % 07/11/19 11:55 Monocytes % (Manual) 20.0 % (0.0-7.3) H 07/11/19 11:55 Eosinophils % (Manual) 3.0 % (0.0-4.3) 07/11/19 11:55 Basophils % (Manual) 1.0 % (0.0-1.8) 07/11/19 11:55 Metamyelocytes % 0 % 07/11/19 11:55 Myelocytes % 0 % 07/11/19 11:55 Promyelocytes % 0 % 07/11/19 11:55 Blast Cells % 0 % 07/11/19 11:55 Nucleated RBC % Not Reportable 07/11/19 11:55 Seg Neutrophils # Man 2.0 K/mm3 (1.8-7.7) 07/11/19 11:55 Band Neutrophils # 0.0 K/mm3 07/11/19 11:55 Lymphocytes # (Manual) 1.0 K/mm3 (1.2-5.4) L 07/11/19 11:55 Abs React Lymphs (Man) 0.0 K/mm3 07/11/19 11:55 Monocytes # (Manual) 0.8 K/mm3 (0.0-0.8) 07/11/19 11:55 Eosinophils # (Manual) 0.1 K/mm3 (0.0-0.4) 07/11/19 11:55 Basophils # (Manual) 0.0 K/mm3 (0.0-0.1) 07/11/19 11:55 Metamyelocytes # 0.0 K/mm3 07/11/19 11:55 Myelocytes # 0.0 K/mm3 07/11/19 11:55 Promyelocytes # 0.0 K/mm3 07/11/19 11:55 Blast Cells # 0.0 K/mm3 07/11/19 11:55 WBC Morphology Not Reportable 07/11/19 11:55 Hypersegmented Neuts Not Reportable 07/11/19 11:55 Hyposegmented Neuts Not Reportable 07/11/19 11:55 Hypogranular Neuts Not Reportable 07/11/19 11:55 Smudge Cells Not Reportable 07/11/19 11:55 Toxic Granulation Not Reportable 07/11/19 11:55 Toxic Vacuolation Not Reportable 07/11/19 11:55 Dohle Bodies Not Reportable 07/11/19 11:55 Pelger-Huet Anomaly Not Reportable 07/11/19 11:55 Gertrude Rods Not Reportable 07/11/19 11:55 Platelet Estimate Consistent w auto 07/11/19 11:55 Clumped Platelets Not Reportable 07/11/19 11:55 Plt Clumps, EDTA Not Reportable 07/11/19 11:55 Large Platelets Not Reportable 07/11/19 11:55 Giant Platelets Not Reportable 07/11/19 11:55 Platelet Satelliting Not Reportable 07/11/19 11:55 Plt Morphology Comment Not Reportable 07/11/19 11:55 RBC Morphology Not Reportable 07/11/19 11:55 Dimorphic RBCs Not Reportable 07/11/19 11:55 Polychromasia Not Reportable 07/11/19 11:55 Hypochromasia Not Reportable 07/11/19 11:55 Poikilocytosis Few 07/11/19 11:55 Anisocytosis Few 07/11/19 11:55 Microcytosis Not Reportable 07/11/19 11:55 Macrocytosis Not Reportable 07/11/19 11:55 Spherocytes Not Reportable 07/11/19 11:55 Pappenheimer Bodies Not Reportable 07/11/19 11:55 Sickle Cells Not Reportable 07/11/19 11:55 Target Cells Rare 07/11/19 11:55 Tear Drop Cells Not Reportable 07/11/19 11:55 Ovalocytes Rare 07/11/19 11:55 Helmet Cells Not Reportable 07/11/19 11:55 Mercado-Ridott Bodies Not Reportable 07/11/19 11:55 Cheney Rings Not Reportable 07/11/19 11:55 York Cells Not Reportable 07/11/19 11:55 Bite Cells Not Reportable 07/11/19 11:55 Crenated Cell Not Reportable 07/11/19 11:55 Elliptocytes Not Reportable 07/11/19 11:55 Acanthocytes (Spur) Not Reportable 07/11/19 11:55 Rouleaux Not Reportable 07/11/19 11:55 Hemoglobin C Crystals Not Reportable 07/11/19 11:55 Schistocytes Not Reportable 07/11/19 11:55 Malaria parasites Not Reportable 07/11/19 11:55 Jacob Bodies Not Reportable 07/11/19 11:55 Hem Pathologist Commnt No 07/11/19 11:55 Sodium 138 mmol/L (137-145) 07/13/19 04:00 Potassium 3.9 mmol/L (3.6-5.0) D 07/13/19 04:00 Chloride 96.3 mmol/L (98-107) L 07/13/19 04:00 Carbon Dioxide 30 mmol/L (22-30) 07/13/19 04:00 Anion Gap 16 mmol/L 07/13/19 04:00 BUN 23 mg/dL (9-20) H 07/13/19 04:00 Creatinine 3.2 mg/dL (0.8-1.5) H 07/13/19 04:00 Estimated GFR 23 ml/min 07/13/19 04:00 BUN/Creatinine Ratio 7 % 07/13/19 04:00 Glucose 104 mg/dL (75-100) H 07/13/19 04:00 POC Glucose 104 (70-105) 07/13/19 11:28 Calcium 8.6 mg/dL (8.4-10.2) 07/13/19 04:00 Magnesium 1.60 mg/dL (1.7-2.3) L 07/13/19 02:08 Total Bilirubin 0.50 mg/dL (0.1-1.2) 07/09/19 22:47 AST 55 units/L (5-40) H 07/09/19 22:47 ALT 36 units/L (7-56) 07/09/19 22:47 Alkaline Phosphatase 170 units/L (35-129) H 07/09/19 22:47 Total Protein 6.4 g/dL (6.3-8.2) 07/09/19 22:47 Albumin 2.6 g/dL (3.9-5) L 07/09/19 22:47 Albumin/Globulin Ratio 0.7 % 07/09/19 22:47 Active Medications - Current Medications Current Medications: Generic Name Dose Route Start Last Admin Trade Name Freq PRN Reason Stop Dose Admin Acetaminophen 650 mg 07/10/19 02:08 Tylenol PO Q4H PRN Pain MILD(1-3)/Fever >100.5/DOUGLAS Amlodipine Besylate 20 mg 07/10/19 10:00 07/13/19 09:33 Amlodipine PO 20 mg DAILY BEAN Administration Atorvastatin Calcium 40 mg 07/10/19 22:00 07/12/19 21:57 Lipitor PO 40 mg QHS BEAN Administration Diphenhydramine HCl 25 mg 07/11/19 12:03 07/13/19 09:35 Benadryl IV 25 mg Q6H PRN Administration Itching Epoetin Prashant 10,000 unit 07/10/19 02:11 07/12/19 13:00 Procrit SUB-Q 10,000 unit KATERYNA PRN Administration hemodialysis Heparin Sodium (Porcine) 1,000 unit 07/10/19 02:08 Heparin 10,000 Units/10 Ml IV KATERYNA PRN hemodialysis Sodium Chloride 100 mls @ 999 mls/hr 07/10/19 08:00 Nacl 0.9% IV KATERYNA PRN Hypotension Metoprolol Tartrate 12.5 mg 07/10/19 10:00 07/13/19 09:34 Metoprolol PO 12.5 mg BID BEAN Administration Ondansetron HCl 4 mg 07/10/19 02:08 Zofran IV Q8H PRN Nausea And Vomiting Oxycodone HCl 10 mg 07/10/19 02:19 07/10/19 17:45 Roxicodone PO 10 mg Q6H PRN Administration Pain, Moderate (4-6) Sodium Chloride 10 ml 07/10/19 10:00 07/13/19 09:35 Sodium Chloride Flush Syringe 10 Ml IV 10 ml BID BEAN Administration Sodium Chloride 10 ml 07/10/19 02:08 Sodium Chloride Flush Syringe 10 Ml IV PRN PRN LINE FLUSH
--- NOTE | 2019-07-13 12:27 | Progress Note ---
Assessment and Plan 1. ESRD: Patient was admitted with hyperkalemia. Continue hemodialysis three times a week, MWF schedule. Hemodialysis: 07/10, 07/12. 2. FEN: Hyperkalemia, improved with HD. Renal diet. Monitor. 3. Diarrhea: Resolved. 4. Chronic pleural effusion. 5. Chronic A.fib. 6. HTN. 7. Anemia: Epogen if needed. 8. PAD. Await outpatient HD chair. Examination: General appearance: well-developed, appears stated age, not in distress HEENT: ATNC, ELENI, hearing intact, vision intact Neck: neck supple, trachea midline Respiratory: Clear to Ascultation Heart: S1S2, irregular, no murmur Gastrointestinal: soft, normoactive bowel sounds, NT, ND Integumentary: no rash, warm and dry Neurologic: no focal deficit, no asterixis, alert and oriented x3 Ext: L forearm amputation, no edema Hemodialysis access: R IJ tunnel catheter, R arm AVF Subjective Date of service: 07/13/19 Principal diagnosis: Volume overload Interval history: Patient was seen and examined at the bedside. Doing ok. Objective - Vital Signs Vital signs: Vital Signs - 12hr 07/13/19 07/13/19 07/13/19 05:13 07:53 09:33 Temperature 97.8 F 97.9 F Pulse Rate 114 H 116 H 120 H Respiratory 22 18 Rate Blood Pressure 138/94 128/88 128/88 O2 Sat by Pulse 100 99 Oximetry 07/13/19 09:34 Temperature Pulse Rate 120 H Respiratory Rate Blood Pressure 128/88 O2 Sat by Pulse Oximetry - Lab 07/11/19 11:55 07/13/19 04:00 Most recent lab results Calcium 8.6 mg/dL (8.4-10.2) 07/13/19 04:00 Magnesium 1.60 mg/dL (1.7-2.3) L 07/13/19 02:08 Medications & Allergies - Medications Allergies/Adverse Reactions: Allergies aspirin Allergy (Verified 02/20/19 22:06) Unknown stomach cramps pork derived (porcine) Allergy (Verified 02/20/19 22:06) Rash venom-honey bee [bee venom (honey bee)] Allergy (Verified 02/20/19 22:06) Anaphylaxis Pork/Porcine Containing Products Adverse Reaction (Severe, Verified 02/20/19 22: 06) Nausea,VOMITING Home Medications: Home Medications Medication Instructions Recorded Confirmed Last Taken Type AtorvaSTATin [Lipitor] 40 mg PO QHS #30 05/22/19 07/09/19 Unknown Rx Epoetin Prashant 10,000 Unit [Procrit] 10,000 unit SUB-Q KATERYNA PRN vial 05/22/19 07/09/19 Unknown Rx Metoprolol [Lopressor TAB] 12.5 mg PO BID #60 tablet 05/22/19 07/09/19 Unknown Rx Oxycodone HCl [oxyCODONE] 10 mg PO Q6H PRN #20 05/22/19 07/09/19 Unknown Rx amLODIPine 20 mg PO DAILY #30 05/22/19 07/09/19 Unknown Rx Acetaminophen [Acetaminophen TAB] 1 tab PO Q4H PRN #15 tablet 07/08/19 07/09/19 Unknown Rx Active Medications: Generic Name Dose Route Start Last Admin Trade Name Freq PRN Reason Stop Dose Admin Acetaminophen 650 mg 07/10/19 02:08 Tylenol PO Q4H PRN Pain MILD(1-3)/Fever >100.5/DOUGLAS Amlodipine Besylate 20 mg 07/10/19 10:00 07/13/19 09:33 Amlodipine PO 20 mg DAILY BEAN Administration Atorvastatin Calcium 40 mg 07/10/19 22:00 07/12/19 21:57 Lipitor PO 40 mg QHS BEAN Administration Diphenhydramine HCl 25 mg 07/11/19 12:03 07/13/19 09:35 Benadryl IV 25 mg Q6H PRN Administration Itching Epoetin Prashant 10,000 unit 07/10/19 02:11 07/12/19 13:00 Procrit SUB-Q 10,000 unit KATERYNA PRN Administration hemodialysis Heparin Sodium (Porcine) 1,000 unit 07/10/19 02:08 Heparin 10,000 Units/10 Ml IV KATERYNA PRN hemodialysis Sodium Chloride 100 mls @ 999 mls/hr 07/10/19 08:00 Nacl 0.9% IV KATERYNA PRN Hypotension Metoprolol Tartrate 12.5 mg 07/10/19 10:00 07/13/19 09:34 Metoprolol PO 12.5 mg BID BEAN Administration Ondansetron HCl 4 mg 07/10/19 02:08 Zofran IV Q8H PRN Nausea And Vomiting Oxycodone HCl 10 mg 07/10/19 02:19 07/10/19 17:45 Roxicodone PO 10 mg Q6H PRN Administration Pain, Moderate (4-6) Sodium Chloride 10 ml 07/10/19 10:00 07/13/19 09:35 Sodium Chloride Flush Syringe 10 Ml IV 10 ml BID BEAN Administration Sodium Chloride 10 ml 07/10/19 02:08 Sodium Chloride Flush Syringe 10 Ml IV PRN PRN LINE FLUSH
[2019-07-14] MEDS: diphenhydrAMINE 50 MG/ML VIAL IV PRN ×3 (01:59→18:03)
[2019-07-14] MEDS: amLODIPine 10 MG TAB PO SCH (09:13)
[2019-07-14] MEDS: METOPROLOL TARTRATE 25 MG TAB PO SCH ×2 (09:14→21:18)
--- NOTE | 2019-07-14 11:25 | Progress Note ---
Assessment and Plan Assessment and plan: ESRD (end stage renal disease) on dialysis -Monday dialysis -Needs Dialysis placement -area operations manager involved Acute hyperkalemia -Resolved CHF (congestive heart failure) -Strict I/O, daily weight -monitor uop q shift -afterload reduction -blood pressure control Acidosis -supportive care, -repeat labs in AM HTN (hypertension) -Cont antihypertensives and adjust meds as necessary Diarrhea -Since resolved in the ER -Antidiarrheal PRN A-fib -EKG shows Sinus rhythm -Rate control with home meds once reconciled Anemia -due to chronic kidney disease -Continue home meds once reconciled DVT prophylaxis -SCDs bilaterally - Heparin and GI prophylaxis Disposition. Patient is a readmit due to dialysis scheduling conflict with [facility] spoke with a Ms Jackson [phone]. However, [facility], Ms Hutchinson called stated that they may have a chair time but will need to have there Chainstitch Seat Joiner sign clinicals, and asking if pt can stay until Monday for official chair time. Anticipate discharge Monday. History Interval history: No new issues overnight. Hospitalist Physical - Constitutional Vitals: Temp Pulse Resp BP Pulse Ox 97.9 F 103 H 18 128/94 100 07/14/19 08:09 07/14/19 09:14 07/14/19 08:09 07/14/19 09:14 07/14/19 08:09 General appearance: Present: no acute distress - EENT Eyes: Present: PERRL, EOM intact ENT: hearing intact, clear oral mucosa, dentition normal - Neck Neck: Present: supple, normal ROM - Respiratory Respiratory effort: normal Respiratory: bilateral: CTA - Cardiovascular Rhythm: regular Heart Sounds: Present: S1 & S2. Absent: gallop, rub - Extremities Extremities: no ischemia, No edema, Full ROM - Abdominal General gastrointestinal: soft, non-tender, non-distended, normal bowel sounds - Integumentary Integumentary: Present: clear, warm, dry - Neurologic Neurologic: CNII-XII intact, moves all extremities ROGER score - Roger Score Age > 65: (1) Yes Aspirin use within the Past 7 Days: (1) Yes 3 or more CAD Risk Factors: (1) Yes 2 or more Angina events in past 24 hrs: (1) Yes Known CAD with more than 50% Stenosis: (0) No Elevated Cardiac Markers: (1) Yes ST Deviation Greater than 0.5mm: (0) No ROGER Score: 5 Results - Labs CBC & Chem 7: 07/11/19 11:55 07/13/19 04:00 Labs: Laboratory Last Values WBC 4.0 K/mm3 (4.5-11.0) L 07/11/19 11:55 RBC 3.03 M/mm3 (3.65-5.03) L 07/11/19 11:55 Hgb 9.8 gm/dl (11.8-15.2) L 07/11/19 11:55 Hct 29.7 % (35.5-45.6) L 07/11/19 11:55 MCV 98 fl (84-94) H 07/11/19 11:55 MCH 32 pg (28-32) 07/11/19 11:55 MCHC 33 % (32-34) 07/11/19 11:55 RDW 19.2 % (13.2-15.2) H 07/11/19 11:55 Plt Count 112 K/mm3 (140-440) L 07/11/19 11:55 [place] % (Auto) Food Supervisor 07/11/19 11:55 Add Manual Diff Complete 07/11/19 11:55 Total Counted 100 07/11/19 11:55 Seg Neuts % (Manual) 50.0 % (40.0-70.0) 07/11/19 11:55 Band Neutrophils % 0 % 07/11/19 11:55 Lymphocytes % (Manual) 26.0 % (13.4-35.0) 07/11/19 11:55 Reactive Lymphs % (Man) 0 % 07/11/19 11:55 Monocytes % (Manual) 20.0 % (0.0-7.3) H 07/11/19 11:55 Eosinophils % (Manual) 3.0 % (0.0-4.3) 07/11/19 11:55 Basophils % (Manual) 1.0 % (0.0-1.8) 07/11/19 11:55 Metamyelocytes % 0 % 07/11/19 11:55 Myelocytes % 0 % 07/11/19 11:55 Promyelocytes % 0 % 07/11/19 11:55 Blast Cells % 0 % 07/11/19 11:55 Nucleated RBC % Not Reportable 07/11/19 11:55 Seg Neutrophils # Man 2.0 K/mm3 (1.8-7.7) 07/11/19 11:55 Band Neutrophils # 0.0 K/mm3 07/11/19 11:55 Lymphocytes # (Manual) 1.0 K/mm3 (1.2-5.4) L 07/11/19 11:55 Abs React Lymphs (Man) 0.0 K/mm3 07/11/19 11:55 Monocytes # (Manual) 0.8 K/mm3 (0.0-0.8) 07/11/19 11:55 Eosinophils # (Manual) 0.1 K/mm3 (0.0-0.4) 07/11/19 11:55 Basophils # (Manual) 0.0 K/mm3 (0.0-0.1) 07/11/19 11:55 Metamyelocytes # 0.0 K/mm3 07/11/19 11:55 Myelocytes # 0.0 K/mm3 07/11/19 11:55 Promyelocytes # 0.0 K/mm3 07/11/19 11:55 Blast Cells # 0.0 K/mm3 07/11/19 11:55 WBC Morphology Not Reportable 07/11/19 11:55 Hypersegmented Neuts Not Reportable 07/11/19 11:55 Hyposegmented Neuts Not Reportable 07/11/19 11:55 Hypogranular Neuts Not Reportable 07/11/19 11:55 Smudge Cells Not Reportable 07/11/19 11:55 Toxic Granulation Not Reportable 07/11/19 11:55 Toxic Vacuolation Not Reportable 07/11/19 11:55 Dohle Bodies Not Reportable 07/11/19 11:55 Pelger-Huet Anomaly Not Reportable 07/11/19 11:55 Gertrude Rods Not Reportable 07/11/19 11:55 Platelet Estimate Consistent w auto 07/11/19 11:55 Clumped Platelets Not Reportable 07/11/19 11:55 Plt Clumps, EDTA Not Reportable 07/11/19 11:55 Large Platelets Not Reportable 07/11/19 11:55 Giant Platelets Not Reportable 07/11/19 11:55 Platelet Satelliting Not Reportable 07/11/19 11:55 Plt Morphology Comment Not Reportable 07/11/19 11:55 RBC Morphology Not Reportable 07/11/19 11:55 Dimorphic RBCs Not Reportable 07/11/19 11:55 Polychromasia Not Reportable 07/11/19 11:55 Hypochromasia Not Reportable 07/11/19 11:55 Poikilocytosis Few 07/11/19 11:55 Anisocytosis Few 07/11/19 11:55 Microcytosis Not Reportable 07/11/19 11:55 Macrocytosis Not Reportable 07/11/19 11:55 Spherocytes Not Reportable 07/11/19 11:55 Pappenheimer Bodies Not Reportable 07/11/19 11:55 Sickle Cells Not Reportable 07/11/19 11:55 Target Cells Rare 07/11/19 11:55 Tear Drop Cells Not Reportable 07/11/19 11:55 Ovalocytes Rare 07/11/19 11:55 Helmet Cells Not Reportable 07/11/19 11:55 Mercado-Joffre Bodies Not Reportable 07/11/19 11:55 Raymond Rings Not Reportable 07/11/19 11:55 Priya Cells Not Reportable 07/11/19 11:55 Bite Cells Not Reportable 07/11/19 11:55 Crenated Cell Not Reportable 07/11/19 11:55 Elliptocytes Not Reportable 07/11/19 11:55 Acanthocytes (Spur) Not Reportable 07/11/19 11:55 Rouleaux Not Reportable 07/11/19 11:55 Hemoglobin C Crystals Not Reportable 07/11/19 11:55 Schistocytes Not Reportable 07/11/19 11:55 Malaria parasites Not Reportable 07/11/19 11:55 Jacob Bodies Not Reportable 07/11/19 11:55 Hem Pathologist Commnt No 07/11/19 11:55 Sodium 138 mmol/L (137-145) 07/13/19 04:00 Potassium 3.9 mmol/L (3.6-5.0) D 07/13/19 04:00 Chloride 96.3 mmol/L (98-107) L 07/13/19 04:00 Carbon Dioxide 30 mmol/L (22-30) 07/13/19 04:00 Anion Gap 16 mmol/L 07/13/19 04:00 BUN 23 mg/dL (9-20) H 07/13/19 04:00 Creatinine 3.2 mg/dL (0.8-1.5) H 07/13/19 04:00 Estimated GFR 23 ml/min 07/13/19 04:00 BUN/Creatinine Ratio 7 % 07/13/19 04:00 Glucose 104 mg/dL (75-100) H 07/13/19 04:00 POC Glucose 91 (70-105) 07/14/19 08:21 Calcium 8.6 mg/dL (8.4-10.2) 07/13/19 04:00 Magnesium 1.60 mg/dL (1.7-2.3) L 07/13/19 02:08 Total Bilirubin 0.50 mg/dL (0.1-1.2) 07/09/19 22:47 AST 55 units/L (5-40) H 07/09/19 22:47 ALT 36 units/L (7-56) 07/09/19 22:47 Alkaline Phosphatase 170 units/L (35-129) H 07/09/19 22:47 Total Protein 6.4 g/dL (6.3-8.2) 07/09/19 22:47 Albumin 2.6 g/dL (3.9-5) L 07/09/19 22:47 Albumin/Globulin Ratio 0.7 % 07/09/19 22:47 Active Medications - Current Medications Current Medications: Generic Name Dose Route Start Last Admin Trade Name Freq PRN Reason Stop Dose Admin Acetaminophen 650 mg 07/10/19 02:08 Tylenol PO Q4H PRN Pain MILD(1-3)/Fever >100.5/DOUGLAS Amlodipine Besylate 20 mg 07/10/19 10:00 07/14/19 09:13 Amlodipine PO 20 mg DAILY BEAN Administration Atorvastatin Calcium 40 mg 07/10/19 22:00 07/13/19 21:46 Lipitor PO 40 mg QHS BEAN Administration Diphenhydramine HCl 25 mg 07/11/19 12:03 07/14/19 09:20 Benadryl IV 25 mg Q6H PRN Administration Itching Epoetin Prashant 10,000 unit 07/10/19 02:11 07/12/19 13:00 Procrit SUB-Q 10,000 unit KATERYNA PRN Administration hemodialysis Heparin Sodium (Porcine) 1,000 unit 07/10/19 02:08 Heparin 10,000 Units/10 Ml IV KATERYNA PRN hemodialysis Sodium Chloride 100 mls @ 999 mls/hr 07/10/19 08:00 Nacl 0.9% IV KATERYNA PRN Hypotension Metoprolol Tartrate 12.5 mg 07/10/19 10:00 07/14/19 09:14 Metoprolol PO 12.5 mg BID BEAN Administration Ondansetron HCl 4 mg 07/10/19 02:08 Zofran IV Q8H PRN Nausea And Vomiting Oxycodone HCl 10 mg 07/10/19 02:19 07/10/19 17:45 Roxicodone PO 10 mg Q6H PRN Administration Pain, Moderate (4-6) Sodium Chloride 10 ml 07/10/19 10:00 07/14/19 09:15 Sodium Chloride Flush Syringe 10 Ml IV 10 ml BID BEAN Administration Sodium Chloride 10 ml 07/10/19 02:08 Sodium Chloride Flush Syringe 10 Ml IV PRN PRN LINE FLUSH
--- NOTE | 2019-07-14 11:34 | Progress Note ---
Assessment and Plan 1. Persistent atrial flutter and fibrillation: Not anticoagulated due to recurrent falls 2. NICMP 3. ESRD on HD Recommend: Fluid and electrlyte management with dialysis Continue current GDMT for NICMP. Unable to use BEATRICE inhibitor or ARB due to frequent hyperkalemia Subjective Date of service: 07/14/19 Principal diagnosis: Volume overload Interval history: No acute events Objective Vital Signs Temp Pulse Pulse Resp BP Pulse Ox 07/14/19 09:14 103 H 128/94 07/14/19 09:13 103 H 128/94 07/14/19 08:09 97.9 F 103 H 18 128/94 100 07/14/19 07:51 18 98 07/14/19 07:40 97 H 07/14/19 04:54 97.8 F 108 H 18 133/92 99 07/13/19 23:16 98.1 F 116 H 18 123/85 99 07/13/19 21:46 111 H 112/77 07/13/19 20:21 111 H 18 99 07/13/19 20:13 98.2 F 111 H 18 112/77 99 07/13/19 19:46 114 H 07/13/19 17:06 98.2 F 110 H 18 112/75 99 - Physical Examination Neck: Positive: neck supple, trachea midline Cardiac: Positive: irregularly irregular Lungs: Positive: clear to auscultation Abdomen: Positive: Soft, Active Bowel Sounds Extremities: Present: +1 Edema - Imaging and Cardiology EKG: report reviewed (sinus tachycardia; normal STs except for flipped T waves in the lateral leads)
--- NOTE | 2019-07-14 13:56 | Progress Note ---
Assessment and Plan 1. ESRD: Patient was admitted with hyperkalemia. Continue hemodialysis three times a week, MWF schedule. Hemodialysis: 07/10, 07/12. 2. FEN: Hyperkalemia, improved with HD. Renal diet. Monitor. 3. Diarrhea: Resolved. 4. Chronic pleural effusion. 5. Chronic A.fib. 6. HTN. 7. Anemia: Epogen if needed. 8. PAD. Await outpatient HD chair. Examination: General appearance: well-developed, appears stated age, not in distress HEENT: ATNC, ELENI, hearing intact, vision intact Neck: neck supple, trachea midline Respiratory: Clear to Ascultation Heart: S1S2, irregular, no murmur Gastrointestinal: soft, normoactive bowel sounds, NT, ND Integumentary: no rash, warm and dry Neurologic: no focal deficit, no asterixis, alert and oriented x3 Ext: L forearm amputation, no edema Hemodialysis access: R IJ tunnel catheter, R arm AVF Subjective Date of service: 07/14/19 Principal diagnosis: Volume overload Interval history: Patient was seen and examined at the bedside. Doing ok. Objective - Vital Signs Vital signs: Vital Signs - 12hr 07/14/19 07/14/19 07/14/19 04:54 07:40 07:51 Temperature 97.8 F Pulse Rate 108 H 97 H Respiratory 18 18 Rate Blood Pressure 133/92 O2 Sat by Pulse 99 98 Oximetry 07/14/19 07/14/19 07/14/19 08:09 09:13 09:14 Temperature 97.9 F Pulse Rate 103 H 103 H 103 H Respiratory 18 Rate Blood Pressure 128/94 128/94 128/94 O2 Sat by Pulse 100 Oximetry 07/14/19 11:12 Temperature 97.4 F L Pulse Rate Respiratory 18 Rate Blood Pressure 104/74 O2 Sat by Pulse Oximetry - Lab 07/11/19 11:55 07/13/19 04:00 Most recent lab results Calcium 8.6 mg/dL (8.4-10.2) 07/13/19 04:00 Magnesium 1.60 mg/dL (1.7-2.3) L 07/13/19 02:08 Medications & Allergies - Medications Allergies/Adverse Reactions: Allergies aspirin Allergy (Verified 02/20/19 22:06) Unknown stomach cramps pork derived (porcine) Allergy (Verified 02/20/19 22:06) Rash venom-honey bee [bee venom (honey bee)] Allergy (Verified 02/20/19 22:06) Anaphylaxis Pork/Porcine Containing Products Adverse Reaction (Severe, Verified 02/20/19 22:06) Nausea,VOMITING Home Medications: Home Medications Medication Instructions Recorded Confirmed Last Taken Type AtorvaSTATin [Lipitor] 40 mg PO QHS #30 05/22/19 07/09/19 Unknown Rx Epoetin Prashant 10,000 Unit [Procrit] 10,000 unit SUB-Q KATERYNA PRN vial 05/22/19 07/09/19 Unknown Rx Metoprolol [Lopressor TAB] 12.5 mg PO BID #60 tablet 05/22/19 07/09/19 Unknown Rx Oxycodone HCl [oxyCODONE] 10 mg PO Q6H PRN #20 05/22/19 07/09/19 Unknown Rx amLODIPine 20 mg PO DAILY #30 /10/0507/09/19 Unknown Rx Acetaminophen [Acetaminophen TAB] 1 tab PO Q4H PRN #15 tablet 07/08/19 07/09/19 Unknown Rx Active Medications: Generic Name Dose Route Start Last Admin Trade Name Freq PRN Reason Stop Dose Admin Acetaminophen 650 mg 07/10/19 02:08 Tylenol PO Q4H PRN Pain MILD(1-3)/Fever >100.5/DOUGLAS Amlodipine Besylate 20 mg 07/10/19 10:00 07/14/19 09:13 Amlodipine PO 20 mg DAILY BEAN Administration Atorvastatin Calcium 40 mg 07/10/19 22:00 07/13/19 21:46 Lipitor PO 40 mg QHS BEAN Administration Diphenhydramine HCl 25 mg 07/11/19 12:03 07/14/19 09:20 Benadryl IV 25 mg Q6H PRN Administration Itching Epoetin Prashant 10,000 unit 07/10/19 02:11 07/12/19 13:00 Procrit SUB-Q 10,000 unit KATERYNA PRN Administration hemodialysis Heparin Sodium (Porcine) 1,000 unit 07/10/19 02:08 Heparin 10,000 Units/10 Ml IV KATERYNA PRN hemodialysis Sodium Chloride 100 mls @ 999 mls/hr 07/10/19 08:00 Nacl 0.9% IV KATERYNA PRN Hypotension Metoprolol Tartrate 12.5 mg 07/10/19 10:00 07/14/19 09:14 Metoprolol PO 12.5 mg BID BEAN Administration Ondansetron HCl 4 mg 07/10/19 02:08 Zofran IV Q8H PRN Nausea And Vomiting Oxycodone HCl 10 mg 07/10/19 02:19 07/10/19 17:45 Roxicodone PO 10 mg Q6H PRN Administration Pain, Moderate (4-6) Sodium Chloride 10 ml 07/10/19 10:00 07/14/19 09:15 Sodium Chloride Flush Syringe 10 Ml IV 10 ml BID BEAN Administration Sodium Chloride 10 ml 07/10/19 02:08 Sodium Chloride Flush Syringe 10 Ml IV PRN PRN LINE FLUSH
[2019-07-14] MEDS: oxyCODONE 5 MG TAB PO PRN (21:18)
[2019-07-15] MEDS: diphenhydrAMINE 50 MG/ML VIAL IV PRN ×2 (01:06→10:30)
--- NOTE | 2019-07-15 09:00 | Progress Note ---
Assessment and Plan Chronic atrial fibrillation, rate control previously considered no longer a candidate for anticoagulation due to high risk of falls and bleeding. Dilated nonischemic cardiomyopathy ejection fraction 25-30% by echocardiogram 01/2019 moderate concentric LVH, LV moderately dilated and trace AI with an ejection fraction 49% by echo 05/07 at [facility] End-stage renal disease on hemodialysis Hyperkalemia DM type II PVD s/p left arm amputation Hypertension Thrombocytopenia, chronic Non-obstructive CAD no ischemia by MPI 01/2019. LHC 01/2017 revealed non-obstructive, single vessel disease of the proximal LAD recommended for medical therapy. Recommendations: Continue medical therapy for chronic atrial fibrillation, NICMP and non-obstr uctive single vessel coronary artery disease. Unable to use BEATRICE inhibitor or ARB due to frequent hyperkalemia. Subjective Date of service: 07/15/19 Principal diagnosis: Volume overload Interval history: Seen in dialysis. Patient has no cardiac complaints. Afib with a well controlled ventricular rate on telemetry. Objective Vital Signs Temp Pulse Resp BP Pulse Ox 07/15/19 07:17 18 97 07/15/19 03:54 97.9 F 91 H 16 115/80 98 07/14/19 23:23 97.8 F 96 H 18 113/80 100 07/14/19 22:00 18 98 07/14/19 21:18 95 H 108/69 07/14/19 20:45 98.0 F 95 H 16 108/69 98 07/14/19 16:53 97.9 F 92 H 18 109/76 99 07/14/19 11:12 97.4 F L 18 104/74 07/14/19 09:14 103 H 128/94 07/14/19 09:13 103 H 128/94 - Physical Examination General: No Apparent Distress HEENT: Positive: PERRL Neck: Positive: trachea midline Cardiac: Positive: irregularly irregular Lungs: Positive: Decreased Breath Sounds Abdomen: Positive: Soft
--- NOTE | 2019-07-15 09:13 | Progress Note ---
Assessment and Plan 1. ESRD: Patient was admitted with hyperkalemia. Continue hemodialysis three times a week, MWF schedule. Hemodialysis: 07/10, 07/12, 07/15. 2. FEN: Hyperkalemia, improved with HD. Renal diet. Monitor. 3. Diarrhea: Resolved. 4. Chronic pleural effusion. 5. Chronic A.fib. 6. HTN. 7. Anemia: Epogen if needed. 8. PAD. Await outpatient HD chair. Examination: General appearance: well-developed, appears stated age, not in distress HEENT: ATNC, ELENI, hearing intact, vision intact Neck: neck supple, trachea midline Respiratory: Clear to Ascultation Heart: S1S2, irregular, no murmur Gastrointestinal: soft, normoactive bowel sounds, NT, ND Integumentary: no rash, warm and dry Neurologic: no focal deficit, no asterixis, alert and oriented x3 Ext: L forearm amputation, no edema Hemodialysis access: R IJ tunnel catheter, R arm AVF Subjective Date of service: 07/15/19 Principal diagnosis: Volume overload Interval history: Patient was seen and examined at the bedside. Doing ok. Objective - Vital Signs Vital signs: Vital Signs - 12hr 07/14/19 07/14/19 07/14/19 21:18 22:00 23:23 Temperature 97.8 F Pulse Rate 95 H 96 H Respiratory 18 18 Rate Blood Pressure 108/69 113/80 O2 Sat by Pulse 98 100 Oximetry 07/15/19 07/15/19 03:54 07:17 Temperature 97.9 F Pulse Rate 91 H Respiratory 16 18 Rate Blood Pressure 115/80 O2 Sat by Pulse 98 97 Oximetry - Lab 07/11/19 11:55 07/13/19 04:00 Most recent lab results Calcium 8.6 mg/dL (8.4-10.2) 07/13/19 04:00 Magnesium 1.60 mg/dL (1.7-2.3) L 07/13/19 02:08 Medications & Allergies - Medications Allergies/Adverse Reactions: Allergies aspirin Allergy (Verified 02/20/19 22:06) Unknown stomach cramps pork derived (porcine) Allergy (Verified 02/20/19 22:06) Rash venom-honey bee [bee venom (honey bee)] Allergy (Verified 02/20/19 22:06) Anaphylaxis Pork/Porcine Containing Products Adverse Reaction (Severe, Verified 02/20/19 22:06) Nausea,VOMITING Home Medications: Home Medications Medication Instructions Recorded Confirmed Last Taken Type AtorvaSTATin [Lipitor] 40 mg PO QHS #30 05/22/19 07/09/19 Unknown Rx Epoetin Prashant 10,000 Unit [Procrit] 10,000 unit SUB-Q KATERYNA PRN vial 05/22/19 07/09/19 Unknown Rx Metoprolol [Lopressor TAB] 12.5 mg PO BID #60 tablet 05/22/19 07/09/19 Unknown Rx Oxycodone HCl [oxyCODONE] 10 mg PO Q6H PRN #20 05/22/19 07/09/19 Unknown Rx amLODIPine 20 mg PO DAILY #30 05/22/19 07/09/19 Unknown Rx Acetaminophen [Acetaminophen TAB] 1 tab PO Q4H PRN #15 tablet 07/08/19 07/09/19 Unknown Rx Active Medications: Generic Name Dose Route Start Last Admin Trade Name Freq PRN Reason Stop Dose Admin Acetaminophen 650 mg 07/10/19 02:08 Tylenol PO Q4H PRN Pain MILD(1-3)/Fever >100.5/DOUGLAS Amlodipine Besylate 20 mg 07/10/19 10:00 07/14/19 09:13 Amlodipine PO 20 mg DAILY BEAN Administration Atorvastatin Calcium 40 mg 07/10/19 22:00 07/14/19 21:18 Lipitor PO 40 mg QHS BEAN Administration Diphenhydramine HCl 25 mg 07/11/19 12:03 07/15/19 01:06 Benadryl IV 25 mg Q6H PRN Administration Itching Epoetin Prashant 10,000 unit 07/10/19 02:11 07/12/19 13:00 Procrit SUB-Q 10,000 unit KATERYNA PRN Administration hemodialysis Heparin Sodium (Porcine) 1,000 unit 07/10/19 02:08 Heparin 10,000 Units/10 Ml IV KATERYNA PRN hemodialysis Sodium Chloride 100 mls @ 999 mls/hr 07/10/19 08:00 Nacl 0.9% IV KATERYNA PRN Hypotension Metoprolol Tartrate 12.5 mg 07/10/19 10:00 07/14/19 21:18 Metoprolol PO 12.5 mg BID BEAN Administration Ondansetron HCl 4 mg 07/10/19 02:08 Zofran IV Q8H PRN Nausea And Vomiting Oxycodone HCl 10 mg 07/10/19 02:19 07/14/19 21:18 Roxicodone PO 10 mg Q6H PRN Administration Pain, Moderate (4-6) Sodium Chloride 10 ml 07/10/19 10:00 07/15/19 01:06 Sodium Chloride Flush Syringe 10 Ml IV 10 ml BID BEAN Administration Sodium Chloride 10 ml 07/10/19 02:08 Sodium Chloride Flush Syringe 10 Ml IV PRN PRN LINE FLUSH
--- NOTE | 2019-07-15 10:51 | Progress Note ---
Assessment and Plan Assessment and plan: ESRD (end stage renal disease) on dialysis -Monday dialysis -Needs Dialysis placement -manager clinical services involved Acute hyperkalemia -Resolved Acute on chronic systolic heart failure -Strict I/O, daily weight -monitor uop q shift -afterload reduction -blood pressure control Acidosis -supportive care, -repeat labs in AM HTN (hypertension) -Cont antihypertensives and adjust meds as necessary Diarrhea -Since resolved in the ER -Antidiarrheal PRN SIRS without acute organ dysfunction. Resolved. A-fib -EKG shows Sinus rhythm -Rate control with home meds once reconciled Anemia -due to chronic kidney disease -Continue home meds once reconciled Moderate protein calorie malnutrition. Nutritional support. DVT prophylaxis -SCDs bilaterally - Heparin and GI prophylaxis Disposition. Await OP HD chair History Interval history: No new issues overnight. Hospitalist Physical - Constitutional Vitals: Temp Pulse Resp BP Pulse Ox 97.9 F 91 H 18 115/80 97 07/15/19 03:54 07/15/19 03:54 07/15/19 07:17 07/15/19 03:54 07/15/19 07:17 General appearance: Present: no acute distress - EENT Eyes: Present: PERRL, EOM intact ENT: hearing intact, clear oral mucosa, dentition normal - Neck Neck: Present: supple, normal ROM - Respiratory Respiratory effort: normal Respiratory: bilateral: CTA - Cardiovascular Rhythm: regular Heart Sounds: Present: S1 & S2. Absent: gallop, rub - Extremities Extremities: no ischemia, No edema, Full ROM - Abdominal General gastrointestinal: soft, non-tender, non-distended, normal bowel sounds - Integumentary Integumentary: Present: clear, warm, dry - Neurologic Neurologic: CNII-XII intact, moves all extremities ROGER score - Roger Score Age > 65: (1) Yes Aspirin use within the Past 7 Days: (1) Yes 3 or more CAD Risk Factors: (1) Yes 2 or more Angina events in past 24 hrs: (1) Yes Known CAD with more than 50% Stenosis: (0) No Elevated Cardiac Markers: (1) Yes ST Deviation Greater than 0.5mm: (0) No ROGER Score: 5 Results - Labs CBC & Chem 7: 07/15/19 08:06 07/15/19 08:06 Labs: Laboratory Last Values WBC 4.0 K/mm3 (4.5-11.0) L 07/11/19 11:55 RBC 3.03 M/mm3 (3.65-5.03) L 07/11/19 11:55 Hgb 9.8 gm/dl (11.8-15.2) L 07/11/19 11:55 Hct 29.7 % (35.5-45.6) L 07/11/19 11:55 MCV 98 fl (84-94) H 07/11/19 11:55 MCH 32 pg (28-32) 07/11/19 11:55 MCHC 33 % (32-34) 07/11/19 11:55 RDW 19.2 % (13.2-15.2) H 07/11/19 11:55 Plt Count 112 K/mm3 (140-440) L 07/11/19 11:55 [place] % (Auto) Warehouse Representative 07/11/19 11:55 Add Manual Diff Complete 07/11/19 11:55 Total Counted 100 07/11/19 11:55 Seg Neuts % (Manual) 50.0 % (40.0-70.0) 07/11/19 11:55 Band Neutrophils % 0 % 07/11/19 11:55 Lymphocytes % (Manual) 26.0 % (13.4-35.0) 07/11/19 11:55 Reactive Lymphs % (Man) 0 % 07/11/19 11:55 Monocytes % (Manual) 20.0 % (0.0-7.3) H 07/11/19 11:55 Eosinophils % (Manual) 3.0 % (0.0-4.3) 07/11/19 11:55 Basophils % (Manual) 1.0 % (0.0-1.8) 07/11/19 11:55 Metamyelocytes % 0 % 07/11/19 11:55 Myelocytes % 0 % 07/11/19 11:55 Promyelocytes % 0 % 07/11/19 11:55 Blast Cells % 0 % 07/11/19 11:55 Nucleated RBC % Not Reportable 07/11/19 11:55 Seg Neutrophils # Man 2.0 K/mm3 (1.8-7.7) 07/11/19 11:55 Band Neutrophils # 0.0 K/mm3 07/11/19 11:55 Lymphocytes # (Manual) 1.0 K/mm3 (1.2-5.4) L 07/11/19 11:55 Abs React Lymphs (Man) 0.0 K/mm3 07/11/19 11:55 Monocytes # (Manual) 0.8 K/mm3 (0.0-0.8) 07/11/19 11:55 Eosinophils # (Manual) 0.1 K/mm3 (0.0-0.4) 07/11/19 11:55 Basophils # (Manual) 0.0 K/mm3 (0.0-0.1) 07/11/19 11:55 Metamyelocytes # 0.0 K/mm3 07/11/19 11:55 Myelocytes # 0.0 K/mm3 07/11/19 11:55 Promyelocytes # 0.0 K/mm3 07/11/19 11:55 Blast Cells # 0.0 K/mm3 07/11/19 11:55 WBC Morphology Not Reportable 07/11/19 11:55 Hypersegmented Neuts Not Reportable 07/11/19 11:55 Hyposegmented Neuts Not Reportable 07/11/19 11:55 Hypogranular Neuts Not Reportable 07/11/19 11:55 Smudge Cells Not Reportable 07/11/19 11:55 Toxic Granulation Not Reportable 07/11/19 11:55 Toxic Vacuolation Not Reportable 07/11/19 11:55 Dohle Bodies Not Reportable 07/11/19 11:55 Pelger-Huet Anomaly Not Reportable 07/11/19 11:55 Gertrude Rods Not Reportable 07/11/19 11:55 Platelet Estimate Consistent w auto 07/11/19 11:55 Clumped Platelets Not Reportable 07/11/19 11:55 Plt Clumps, EDTA Not Reportable 07/11/19 11:55 Large Platelets Not Reportable 07/11/19 11:55 Giant Platelets Not Reportable 07/11/19 11:55 Platelet Satelliting Not Reportable 07/11/19 11:55 Plt Morphology Comment Not Reportable 07/11/19 11:55 RBC Morphology Not Reportable 07/11/19 11:55 Dimorphic RBCs Not Reportable 07/11/19 11:55 Polychromasia Not Reportable 07/11/19 11:55 Hypochromasia Not Reportable 07/11/19 11:55 Poikilocytosis Few 07/11/19 11:55 Anisocytosis Few 07/11/19 11:55 Microcytosis Not Reportable 07/11/19 11:55 Macrocytosis Not Reportable 07/11/19 11:55 Spherocytes Not Reportable 07/11/19 11:55 Pappenheimer Bodies Not Reportable 07/11/19 11:55 Sickle Cells Not Reportable 07/11/19 11:55 Target Cells Rare 07/11/19 11:55 Tear Drop Cells Not Reportable 07/11/19 11:55 Ovalocytes Rare 07/11/19 11:55 Helmet Cells Not Reportable 07/11/19 11:55 Mercado-Hutchinson Bodies Not Reportable 07/11/19 11:55 [place] Rings Not Reportable 07/11/19 11:55 [place] Cells Not Reportable 07/11/19 11:55 Bite Cells Not Reportable 07/11/19 11:55 Crenated Cell Not Reportable 07/11/19 11:55 Elliptocytes Not Reportable 07/11/19 11:55 Acanthocytes (Spur) Not Reportable 07/11/19 11:55 Rouleaux Not Reportable 07/11/19 11:55 Hemoglobin C Crystals Not Reportable 07/11/19 11:55 Schistocytes Not Reportable 07/11/19 11:55 Malaria parasites Not Reportable 07/11/19 11:55 Jacob Bodies Not Reportable 07/11/19 11:55 Hem Pathologist Commnt No 07/11/19 11:55 Sodium 138 mmol/L (137-145) 07/13/19 04:00 Potassium 3.9 mmol/L (3.6-5.0) D 07/13/19 04:00 Chloride 96.3 mmol/L (98-107) L 07/13/19 04:00 Carbon Dioxide 30 mmol/L (22-30) 07/13/19 04:00 Anion Gap 16 mmol/L 07/13/19 04:00 BUN 23 mg/dL (9-20) H 07/13/19 04:00 Creatinine 3.2 mg/dL (0.8-1.5) H 07/13/19 04:00 Estimated GFR 23 ml/min 07/13/19 04:00 BUN/Creatinine Ratio 7 % 07/13/19 04:00 Glucose 104 mg/dL (75-100) H 07/13/19 04:00 POC Glucose 122 (70-105) H 07/14/19 21:46 Calcium 8.6 mg/dL (8.4-10.2) 07/13/19 04:00 Magnesium 1.60 mg/dL (1.7-2.3) L 07/13/19 02:08 Total Bilirubin 0.50 mg/dL (0.1-1.2) 07/09/19 22:47 AST 55 units/L (5-40) H 07/09/19 22:47 ALT 36 units/L (7-56) 07/09/19 22:47 Alkaline Phosphatase 170 units/L (35-129) H 07/09/19 22:47 Total Protein 6.4 g/dL (6.3-8.2) 07/09/19 22:47 Albumin 2.6 g/dL (3.9-5) L 07/09/19 22:47 Albumin/Globulin Ratio 0.7 % 07/09/19 22:47 Active Medications - Current Medications Current Medications: Generic Name Dose Route Start Last Admin Trade Name Freq PRN Reason Stop Dose Admin Acetaminophen 650 mg 07/10/19 02:08 Tylenol PO Q4H PRN Pain MILD(1-3)/Fever >100.5/DOUGLAS Amlodipine Besylate 20 mg 07/10/19 10:00 07/14/19 09:13 Amlodipine PO 20 mg DAILY BEAN Administration Atorvastatin Calcium 40 mg 07/10/19 22:00 07/14/19 21:18 Lipitor PO 40 mg QHS BEAN Administration Diphenhydramine HCl 25 mg 07/11/19 12:03 07/15/19 01:06 Benadryl IV 25 mg Q6H PRN Administration Itching Epoetin Prashant 10,000 unit 07/10/19 02:11 07/12/19 13:00 Procrit SUB-Q 10,000 unit KATERYNA PRN Administration hemodialysis Heparin Sodium (Porcine) 1,000 unit 07/10/19 02:08 Heparin 10,000 Units/10 Ml IV KATERYNA PRN hemodialysis Sodium Chloride 100 mls @ 999 mls/hr 07/10/19 08:00 Nacl 0.9% IV KATERYNA PRN Hypotension Metoprolol Tartrate 12.5 mg 07/10/19 10:00 07/14/19 21:18 Metoprolol PO 12.5 mg BID BEAN Administration Ondansetron HCl 4 mg 07/10/19 02:08 Zofran IV Q8H PRN Nausea And Vomiting Oxycodone HCl 10 mg 07/10/19 02:19 07/14/19 21:18 Roxicodone PO 10 mg Q6H PRN Administration Pain, Moderate (4-6) Sodium Chloride 10 ml 07/10/19 10:00 07/15/19 01:06 Sodium Chloride Flush Syringe 10 Ml IV 10 ml BID BEAN Administration Sodium Chloride 10 ml 07/10/19 02:08 Sodium Chloride Flush Syringe 10 Ml IV PRN PRN LINE FLUSH
[2019-07-15 10:57] LABS: Eosinophils # (Auto) 0.1 K/mm3 (0.0-0.4); Eosinophils % (Auto) 2.5 % (0.0-4.3); Hematocrit 23.5 % (35.5-45.6); Hemoglobin 7.8 gm/dl (11.8-15.2); Lymphocytes # (Auto) 0.7 K/mm3 (1.2-5.4); Lymphocytes % (Auto) 20.8 % (13.4-35.0); Mean Corpuscular HGB Conc 33 % (32-34); Mean Corpuscular Volume 98 fl (84-94); Monocytes # (Auto) 0.5 K/mm3 (0.0-0.8); Monocytes % (Auto) 13.6 % (0.0-7.3); Platelet Count 120 K/mm3 (140-440); Red Blood Count 2.39 M/mm3 (3.65-5.03); Red Cell Distribution Width 18.8 % (13.2-15.2)
[2019-07-15 11:22] LABS: Calcium 8.4 mg/dL (8.4-10.2)
[2019-07-15] MEDS ORDERED: SODIUM CHLORIDE*PRIMING MACHINE ONLY FOR DIALYSIS MC ONE (12:46)
[2019-07-15] MEDS: EPOETIN ALFA 10,000 UNIT/1 ML INJ SUB-Q PRN (13:30)
[2019-07-15] MEDS: amLODIPine 10 MG TAB PO SCH (16:29)
[2019-07-15] MEDS: METOPROLOL TARTRATE 25 MG TAB PO SCH ×2 (16:30→21:26)
[2019-07-15] MEDS: oxyCODONE 5 MG TAB PO PRN (16:32)
[2019-07-16] MEDS: diphenhydrAMINE 50 MG/ML VIAL IV PRN ×4 (00:27→23:57)
[2019-07-16] MEDS: METOPROLOL TARTRATE 25 MG TAB PO SCH ×2 (09:11→23:58)
[2019-07-16] MEDS: amLODIPine 10 MG TAB PO SCH (09:12)
--- NOTE | 2019-07-16 10:22 | Progress Note ---
Assessment and Plan Chronic atrial fibrillation, rate control previously considered no longer a candidate for anticoagulation due to high risk of falls and bleeding. Dilated nonischemic cardiomyopathy ejection fraction 25-30% by echocardiogram 01/2019 moderate concentric LVH, LV moderately dilated and trace AI with an ejection fraction 49% by echo 05/07 at [facility] End-stage renal disease on hemodialysis Anemia Hyperkalemia DM type II PVD s/p left arm amputation Hypertension Thrombocytopenia, chronic Non-obstructive CAD no ischemia by MPI 01/2019. LHC 01/2017 revealed non-obstructive, single vessel disease of the proximal LAD recommended for medical therapy. Recommendations: Continue medical therapy for chronic atrial fibrillation, NICMP and non- obstructive single vessel coronary artery disease. Unable to use BEATRICE inhibitor or ARB due to frequent hyperkalemia. Subjective Date of service: 07/16/19 Principal diagnosis: Volume overload Interval history: Patient is resting in bed comfortably. Afib with a well controlled ventricular rate on telemetry. Objective Vital Signs Temp Pulse Resp BP Pulse Ox 07/16/19 09:12 116 H 117/73 07/16/19 09:11 116 H 117/73 07/16/19 08:03 99.3 F 116 H 18 117/73 100 07/16/19 04:05 99.8 F H 119 H 18 133/93 100 07/15/19 23:40 97.9 F 105 H 18 115/82 98 07/15/19 22:00 96 H 18 98 07/15/19 19:40 98.5 F 92 H 18 111/74 96 07/15/19 16:30 118 H 133/88 07/15/19 16:29 118 H 133/88 07/15/19 16:27 98.3 F 119 H 19 133/88 100 07/15/19 14:50 98.3 F 99 H 19 125/88 100 07/15/19 13:45 98.0 F 102 H 18 115/64 07/15/19 13:30 104 H 110/60 07/15/19 13:15 101 H 112/62 07/15/19 13:00 106 H 102/70 07/15/19 12:45 107 H 114/68 07/15/19 12:30 107 H 111/59 07/15/19 12:15 108 H 116/73 07/15/19 12:00 101 H 110/61 07/15/19 11:45 110 H 118/74 07/15/19 11:35 110 H 07/15/19 11:30 111 H 118/76 07/15/19 11:15 109 H 119/75 07/15/19 11:00 110 H 124/68 07/15/19 10:45 106 H 120/68 07/15/19 10:30 97.9 F 107 H 18 122/68 - Physical Examination General: No Apparent Distress HEENT: Positive: PERRL Neck: Positive: trachea midline Cardiac: Positive: irregularly irregular Lungs: Positive: Decreased Breath Sounds Abdomen: Positive: Soft - Labs and Meds CBC 07/15/19 Range/Units 08:06 WBC 3.4 L (4.5-11.0) K/mm3 RBC 2.39 L (3.65-5.03) M/mm3 Hgb 7.8 L (11.8-15.2) gm/dl Hct 23.5 L (35.5-45.6) % Plt Count 120 L (140-440) K/mm3 Lymph # 0.7 L (1.2-5.4) K/mm3 [place] # 0.5 (0.0-0.8) K/mm3 Eos # 0.1 (0.0-0.4) K/mm3 Baso # 0.0 (0.0-0.1) K/mm3 Comprehensive Metabolic Panel 07/15/19 Range/Units 08:06 Sodium 137 (137-145) mmol/L Potassium 4.6 (3.6-5.0) mmol/L Chloride 97.1 L (98-107) mmol/L Carbon Dioxide 23 D (22-30) mmol/L BUN 49 H (9-20) mg/dL Creatinine 5.7 H D (0.8-1.5) mg/dL Glucose 129 H (75-100) mg/dL Calcium 8.4 (8.4-10.2) mg/dL
[2019-07-16] MEDS: oxyCODONE 5 MG TAB PO PRN ×2 (11:21→19:00)
--- NOTE | 2019-07-16 15:10 | Progress Note ---
Assessment and Plan 1. ESRD: Patient was admitted with hyperkalemia. Continue hemodialysis three times a week, MWF schedule. Hemodialysis: 07/10, 07/12, 07/15. 2. FEN: Hyperkalemia, improved with HD. Renal diet. Monitor. 3. Diarrhea: Resolved. 4. Chronic pleural effusion. 5. Chronic A.fib. 6. HTN. 7. Anemia: Epogen if needed. 8. PAD. Await outpatient HD chair. Examination: General appearance: well-developed, appears stated age, not in distress HEENT: ATNC, ELENI, hearing intact, vision intact Neck: neck supple, trachea midline Respiratory: Clear to Ascultation Heart: S1S2, irregular, no murmur Gastrointestinal: soft, normoactive bowel sounds, NT, ND Integumentary: no rash, warm and dry Neurologic: no focal deficit, no asterixis, alert and oriented x3 Ext: L forearm amputation, no edema Hemodialysis access: R IJ tunnel catheter, R arm AVF Subjective Date of service: 07/16/19 Principal diagnosis: Volume overload Interval history: Patient was seen and examined at the bedside. Was able to use R arm AVF 07/15. Doing ok. Objective - Vital Signs Vital signs: Vital Signs - 12hr 07/16/19 07/16/19 07/16/19 04:05 08:03 09:11 Temperature 99.8 F H 99.3 F Pulse Rate 119 H 116 H 116 H Pulse Rate [ Apical] Respiratory 18 18 Rate Respiratory Rate [Back] Respiratory Rate [Chest] Blood Pressure 133/93 117/73 117/73 O2 Sat by Pulse 100 100 Oximetry 07/16/19 07/16/19 07/16/19 09:12 10:00 11:21 Temperature Pulse Rate 116 H 118 H Pulse Rate [ 108 H Apical] Respiratory 20 20 Rate Respiratory 20 Rate [Back] Respiratory 20 Rate [Chest] Blood Pressure 117/73 O2 Sat by Pulse 100 Oximetry 07/16/19 11:39 Temperature 97.9 F Pulse Rate 121 H Pulse Rate [ Apical] Respiratory 18 Rate Respiratory Rate [Back] Respiratory Rate [Chest] Blood Pressure 119/86 O2 Sat by Pulse 100 Oximetry - Lab 07/15/19 08:06 07/15/19 08:06 Most recent lab results Calcium 8.4 mg/dL (8.4-10.2) 07/15/19 08:06 Magnesium 1.60 mg/dL (1.7-2.3) L 07/13/19 02:08 Medications & Allergies - Medications Allergies/Adverse Reactions: Allergies aspirin Allergy (Verified 02/20/19 22:06) Unknown stomach cramps pork derived (porcine) Allergy (Verified 02/20/19 22:06) Rash venom-honey bee [bee venom (honey bee)] Allergy (Verified 02/20/19 22:06) Anaphylaxis Pork/Porcine Containing Products Adverse Reaction (Severe, Verified 02/20/19 22:06) Nausea,VOMITING Home Medications: Home Medications Medication Instructions Recorded Confirmed Last Taken Type AtorvaSTATin [Lipitor] 40 mg PO QHS #30 05/22/19 07/09/19 Unknown Rx Epoetin Prashant 10,000 Unit [Procrit] 10,000 unit SUB-Q KATERYNA PRN vial 05/22/19 07/09/19 Unknown Rx Metoprolol [Lopressor TAB] 12.5 mg PO BID #60 tablet 05/22/19 07/09/19 Unknown Rx Oxycodone HCl [oxyCODONE] 10 mg PO Q6H PRN #20 05/22/19 07/09/19 Unknown Rx amLODIPine 20 mg PO DAILY #30 05/22/19 07/09/19 Unknown Rx Acetaminophen [Acetaminophen TAB] 1 tab PO Q4H PRN #15 tablet 07/08/19 07/09/19 Unknown Rx Active Medications: Generic Name Dose Route Start Last Admin Trade Name Freq PRN Reason Stop Dose Admin Acetaminophen 650 mg 07/10/19 02:08 Tylenol PO Q4H PRN Pain MILD(1-3)/Fever >100.5/DOUGLAS Amlodipine Besylate 20 mg 07/10/19 10:00 07/16/19 09:12 Amlodipine PO 20 mg DAILY BEAN Administration Atorvastatin Calcium 40 mg 07/10/19 22:00 07/15/19 21:26 Lipitor PO 40 mg QHS BEAN Administration Diphenhydramine HCl 25 mg 07/11/19 12:03 07/16/19 09:11 Benadryl IV 25 mg Q6H PRN Administration Itching Epoetin Prashant 10,000 unit 07/10/19 02:11 07/15/19 13:30 Procrit SUB-Q 10,000 unit KATERYNA PRN Administration hemodialysis Heparin Sodium (Porcine) 1,000 unit 07/10/19 02:08 Heparin 10,000 Units/10 Ml IV KATERYNA PRN hemodialysis Sodium Chloride 100 mls @ 999 mls/hr 07/10/19 08:00 Nacl 0.9% IV KATERYNA PRN Hypotension Metoprolol Tartrate 12.5 mg 07/10/19 10:00 07/16/19 09:11 Metoprolol PO 12.5 mg BID BEAN Administration Ondansetron HCl 4 mg 07/10/19 02:08 Zofran IV Q8H PRN Nausea And Vomiting Oxycodone HCl 10 mg 07/10/19 02:19 07/16/19 11:21 Roxicodone PO 10 mg Q6H PRN Administration Pain, Moderate (4-6) Sodium Chloride 10 ml 07/10/19 10:00 07/16/19 09:12 Sodium Chloride Flush Syringe 10 Ml IV 10 ml BID BEAN Administration Sodium Chloride 10 ml 07/10/19 02:08 Sodium Chloride Flush Syringe 10 Ml IV PRN PRN LINE FLUSH
--- NOTE | 2019-07-16 16:29 | Progress Note ---
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 Resolved. A-fib -EKG shows Sinus rhythm -Rate control with home meds once reconciled Anemia -due to chronic kidney disease Moderate protein calorie malnutrition. Nutritional support. DVT prophylaxis -SCDs bilaterally - Heparin and GI prophylaxis Disposition: Patient medically stable for discharge but awaiting outpatient dialysis placement History Interval history: Patient denies chest pain or shortness of breath Hospitalist Physical - Physical exam Narrative exam: GEN: Not in acute distress, lying in bed, malnourished HEENT: Normocephalic, atraumatic, Neck: supple, No JVD Lungs: Clear to auscultation bilaterally, no wheeze, heart;S1 and S2 reg, no murmurs Abd:soft, non tender, non distended, normal bowel sounds Ext: No edema, no clubbing, no cyanosis Neuro: AAO X 3, no focal neurological signs - Constitutional Vitals: Temp Pulse Resp BP Pulse Ox 97.9 F 121 H 18 119/86 100 07/16/19 11:39 07/16/19 11:39 07/16/19 11:39 07/16/19 11:39 07/16/19 11:39 General appearance: Present: no acute distress ROGER score - Roger Score Age > 65: (1) Yes Aspirin use within the Past 7 Days: (1) Yes 3 or more CAD Risk Factors: (1) Yes 2 or more Angina events in past 24 hrs: (1) Yes Known CAD with more than 50% Stenosis: (0) No Elevated Cardiac Markers: (1) Yes ST Deviation Greater than 0.5mm: (0) No ROGER Score: 5 Results - Labs CBC & Chem 7: 07/17/19 07:00 07/15/19 08:06 Labs: Laboratory Last Values WBC 3.4 K/mm3 (4.5-11.0) L 07/15/19 08:06 RBC 2.39 M/mm3 (3.65-5.03) L 07/15/19 08:06 Hgb 7.8 gm/dl (11.8-15.2) L 07/15/19 08:06 Hct 23.5 % (35.5-45.6) L 07/15/19 08:06 MCV 98 fl (84-94) H 07/15/19 08:06 MCH 33 pg (28-32) H 07/15/19 08:06 MCHC 33 % (32-34) 07/15/19 08:06 RDW 18.8 % (13.2-15.2) H 07/15/19 08:06 Plt Count 120 K/mm3 (140-440) L 07/15/19 08:06 Lymph % (Auto) 20.8 % (13.4-35.0) 07/15/19 08:06 [place] % (Auto) 13.6 % (0.0-7.3) H 07/15/19 08:06 Eos % (Auto) 2.5 % (0.0-4.3) 07/15/19 08:06 Baso % (Auto) 1.0 % (0.0-1.8) 07/15/19 08:06 Lymph # 0.7 K/mm3 (1.2-5.4) L 07/15/19 08:06 [place] # 0.5 K/mm3 (0.0-0.8) 07/15/19 08:06 Eos # 0.1 K/mm3 (0.0-0.4) 07/15/19 08:06 Baso # 0.0 K/mm3 (0.0-0.1) 07/15/19 08:06 Add Manual Diff Complete 07/11/19 11:55 Total Counted 100 07/11/19 11:55 Seg Neutrophils % 62.1 % (40.0-70.0) 07/15/19 08:06 Seg Neuts % (Manual) 50.0 % (40.0-70.0) 07/11/19 11:55 Band Neutrophils % 0 % 07/11/19 11:55 Lymphocytes % (Manual) 26.0 % (13.4-35.0) 07/11/19 11:55 Reactive Lymphs % (Man) 0 % 07/11/19 11:55 Monocytes % (Manual) 20.0 % (0.0-7.3) H 07/11/19 11:55 Eosinophils % (Manual) 3.0 % (0.0-4.3) 07/11/19 11:55 Basophils % (Manual) 1.0 % (0.0-1.8) 07/11/19 11:55 Metamyelocytes % 0 % 07/11/19 11:55 Myelocytes % 0 % 07/11/19 11:55 Promyelocytes % 0 % 07/11/19 11:55 Blast Cells % 0 % 07/11/19 11:55 Nucleated RBC % Not Reportable 07/11/19 11:55 Seg Neutrophils # 2.1 K/mm3 (1.8-7.7) 07/15/19 08:06 Seg Neutrophils # Man 2.0 K/mm3 (1.8-7.7) 07/11/19 11:55 Band Neutrophils # 0.0 K/mm3 07/11/19 11:55 Lymphocytes # (Manual) 1.0 K/mm3 (1.2-5.4) L 07/11/19 11:55 Abs React Lymphs (Man) 0.0 K/mm3 07/11/19 11:55 Monocytes # (Manual) 0.8 K/mm3 (0.0-0.8) 07/11/19 11:55 Eosinophils # (Manual) 0.1 K/mm3 (0.0-0.4) 07/11/19 11:55 Basophils # (Manual) 0.0 K/mm3 (0.0-0.1) 07/11/19 11:55 Metamyelocytes # 0.0 K/mm3 07/11/19 11:55 Myelocytes # 0.0 K/mm3 07/11/19 11:55 Promyelocytes # 0.0 K/mm3 07/11/19 11:55 Blast Cells # 0.0 K/mm3 07/11/19 11:55 WBC Morphology Not Reportable 07/11/19 11:55 Hypersegmented Neuts Not Reportable 07/11/19 11:55 Hyposegmented Neuts Not Reportable 07/11/19 11:55 Hypogranular Neuts Not Reportable 07/11/19 11:55 Smudge Cells Not Reportable 07/11/19 11:55 Toxic Granulation Not Reportable 07/11/19 11:55 Toxic Vacuolation Not Reportable 07/11/19 11:55 Dohle Bodies Not Reportable 07/11/19 11:55 Pelger-Huet Anomaly Not Reportable 07/11/19 11:55 Gertrude Rods Not Reportable 07/11/19 11:55 Platelet Estimate Consistent w auto 07/11/19 11:55 Clumped Platelets Not Reportable 07/11/19 11:55 Plt Clumps, EDTA Not Reportable 07/11/19 11:55 Large Platelets Not Reportable 07/11/19 11:55 Giant Platelets Not Reportable 07/11/19 11:55 Platelet Satelliting Not Reportable 07/11/19 11:55 Plt Morphology Comment Not Reportable 07/11/19 11:55 RBC Morphology Not Reportable 07/11/19 11:55 Dimorphic RBCs Not Reportable 07/11/19 11:55 Polychromasia Not Reportable 07/11/19 11:55 Hypochromasia Not Reportable 07/11/19 11:55 Poikilocytosis Few 07/11/19 11:55 Anisocytosis Few 07/11/19 11:55 Microcytosis Not Reportable 07/11/19 11:55 Macrocytosis Not Reportable 07/11/19 11:55 Spherocytes Not Reportable 07/11/19 11:55 Pappenheimer Bodies Not Reportable 07/11/19 11:55 Sickle Cells Not Reportable 07/11/19 11:55 Target Cells Rare 07/11/19 11:55 Tear Drop Cells Not Reportable 07/11/19 11:55 Ovalocytes Rare 07/11/19 11:55 Helmet Cells Not Reportable 07/11/19 11:55 Mercado-Clever Bodies Not Reportable 07/11/19 11:55 Sherwood Rings Not Reportable 07/11/19 11:55 Priya Cells Not Reportable 07/11/19 11:55 Bite Cells Not Reportable 07/11/19 11:55 Crenated Cell Not Reportable 07/11/19 11:55 Elliptocytes Not Reportable 07/11/19 11:55 Acanthocytes (Spur) Not Reportable 07/11/19 11:55 Rouleaux Not Reportable 07/11/19 11:55 Hemoglobin C Crystals Not Reportable 07/11/19 11:55 Schistocytes Not Reportable 07/11/19 11:55 Malaria parasites Not Reportable 07/11/19 11:55 Jacob Bodies Not Reportable 07/11/19 11:55 Hem Pathologist Commnt No 07/11/19 11:55 Sodium 137 mmol/L (137-145) 07/15/19 08:06 Potassium 4.6 mmol/L (3.6-5.0) 07/15/19 08:06 Chloride 97.1 mmol/L (98-107) L 07/15/19 08:06 Carbon Dioxide 23 mmol/L (22-30) D 07/15/19 08:06 Anion Gap 22 mmol/L 07/15/19 08:06 BUN 49 mg/dL (9-20) H 07/15/19 08:06 Creatinine 5.7 mg/dL (0.8-1.5) H D 07/15/19 08:06 Estimated GFR 12 ml/min 07/15/19 08:06 BUN/Creatinine Ratio 9 % 07/15/19 08:06 Glucose 129 mg/dL (75-100) H 07/15/19 08:06 POC Glucose 95 (70-105) 07/16/19 11:48 Calcium 8.4 mg/dL (8.4-10.2) 07/15/19 08:06 Magnesium 1.60 mg/dL (1.7-2.3) L 07/13/19 02:08 Total Bilirubin 0.50 mg/dL (0.1-1.2) 07/09/19 22:47 AST 55 units/L (5-40) H 07/09/19 22:47 ALT 36 units/L (7-56) 07/09/19 22:47 Alkaline Phosphatase 170 units/L (35-129) H 07/09/19 22:47 Total Protein 6.4 g/dL (6.3-8.2) 07/09/19 22:47 Albumin 2.6 g/dL (3.9-5) L 07/09/19 22:47 Albumin/Globulin Ratio 0.7 % 07/09/19 22:47 Active Medications - Current Medications Current Medications: Generic Name Dose Route Start Last Admin Trade Name Freq PRN Reason Stop Dose Admin Acetaminophen 650 mg 07/10/19 02:08 Tylenol PO Q4H PRN Pain MILD(1-3)/Fever >100.5/DOUGLAS Amlodipine Besylate 20 mg 07/10/19 10:00 07/16/19 09:12 Amlodipine PO 20 mg DAILY BEAN Administration Atorvastatin Calcium 40 mg 07/10/19 22:00 07/15/19 21:26 Lipitor PO 40 mg QHS BEAN Administration Diphenhydramine HCl 25 mg 07/11/19 12:03 07/16/19 16:05 Benadryl IV 25 mg Q6H PRN Administration Itching Epoetin Prashant 10,000 unit 07/10/19 02:11 07/15/19 13:30 Procrit SUB-Q 10,000 unit KATERYNA PRN Administration hemodialysis Heparin Sodium (Porcine) 1,000 unit 07/10/19 02:08 Heparin 10,000 Units/10 Ml IV KATERYNA PRN hemodialysis Sodium Chloride 100 mls @ 999 mls/hr 07/10/19 08:00 Nacl 0.9% IV KATERYNA PRN Hypotension Metoprolol Tartrate 12.5 mg 07/10/19 10:00 07/16/19 09:11 Metoprolol PO 12.5 mg BID BEAN Administration Ondansetron HCl 4 mg 07/10/19 02:08 Zofran IV Q8H PRN Nausea And Vomiting Oxycodone HCl 10 mg 07/10/19 02:19 07/16/19 11:21 Roxicodone PO 10 mg Q6H PRN Administration Pain, Moderate (4-6) Sodium Chloride 10 ml 07/10/19 10:00 07/16/19 09:12 Sodium Chloride Flush Syringe 10 Ml IV 10 ml BID BEAN Administration Sodium Chloride 10 ml 07/10/19 02:08 Sodium Chloride Flush Syringe 10 Ml IV PRN PRN LINE FLUSH
[2019-07-17] MEDS: diphenhydrAMINE 50 MG/ML VIAL IV PRN ×2 (05:20→16:03)
[2019-07-17 07:26] LABS: Hematocrit 24.6 % (35.5-45.6); Hemoglobin 8.1 gm/dl (11.8-15.2); Mean Corpuscular HGB Conc 33 % (32-34); Mean Corpuscular Volume 99 fl (84-94); Platelet Count 109 K/mm3 (140-440); Red Blood Count 2.49 M/mm3 (3.65-5.03); Red Cell Distribution Width 19.7 % (13.2-15.2)
[2019-07-17] MEDS: oxyCODONE 5 MG TAB PO PRN ×3 (09:13→20:54)
--- NOTE | 2019-07-17 10:46 | Progress Note ---
Assessment and Plan Chronic atrial fibrillation, rate control previously considered no longer a candidate for anticoagulation due to high risk of falls and bleeding. Dilated nonischemic cardiomyopathy unable to use BEATRICE inhibitor or ARB due to frequent hyperkalemia. ejection fraction 25-30% by echocardiogram 01/2019 moderate concentric LVH, LV moderately dilated and trace AI with an ejection fraction 49% by echo 05/07 at [facility] End-stage renal disease on hemodialysis Anemia Hyperkalemia DM type II PVD s/p left arm amputation Hypertension Thrombocytopenia, chronic Non-obstructive CAD no ischemia by MPI 01/2019. LHC 01/2017 revealed non-obstructive, single vessel disease of the proximal LAD recommended for medical therapy. Recommendations: Continue medical therapy for chronic atrial fibrillation, NICMP and non- obstructive single vessel coronary artery disease. We will follow intermittently. Subjective Date of service: 07/17/19 Principal diagnosis: Volume overload Interval history: Patient is resting in bed comfortably. Afib with a well controlled ventricular rate on telemetry. Objective Vital Signs Temp Pulse Pulse Resp BP BP Pulse Ox 07/17/19 09:22 96 07/17/19 08:16 99.1 F 99 H 20 98/66 100 07/17/19 03:17 98.1 F 92 H 18 112/77 94 07/16/19 23:58 94 H 111/78 07/16/19 22:00 92 H 92 H 20 100 07/16/19 21:02 99.1 F 16 111/78 93 07/16/19 19:26 99.0 F 94 H 18 104/69 97 07/16/19 19:00 20 07/16/19 16:59 98.9 F 115 H 18 105/75 98 07/16/19 11:39 97.9 F 121 H 18 119/86 100 07/16/19 11:21 20 - Physical Examination General: No Apparent Distress HEENT: Positive: PERRL Neck: Positive: trachea midline Cardiac: Positive: irregularly irregular Lungs: Positive: Decreased Breath Sounds Neuro: Positive: Grossly Intact Abdomen: Positive: Soft - Labs and Meds CBC 07/17/19 Range/Units 07:00 WBC 5.4 (4.5-11.0) K/mm3 RBC 2.49 L (3.65-5.03) M/mm3 Hgb 8.1 L (11.8-15.2) gm/dl Hct 24.6 L (35.5-45.6) % Plt Count 109 L (140-440) K/mm3
[2019-07-17] MEDS ORDERED: SODIUM CHLORIDE*PRIMING MACHINE ONLY FOR DIALYSIS MC ONE (12:51)
[2019-07-17] MEDS: EPOETIN ALFA 10,000 UNIT/1 ML INJ SUB-Q PRN (13:00)
--- NOTE | 2019-07-17 13:23 | Progress Note ---
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 Resolved. A-fib -EKG shows Sinus rhythm -Rate control with home meds once reconciled Anemia -due to chronic kidney disease Moderate protein calorie malnutrition. Nutritional support. DVT prophylaxis -SCDs bilaterally - Heparin and GI prophylaxis Disposition: Patient medically stable for discharge but awaiting outpatient dialysis placement History Interval history: Patient denies chest pain or shortness of breath Hospitalist Physical - Physical exam Narrative exam: GEN: Not in acute distress, lying in bed, malnourished HEENT: Normocephalic, atraumatic, Neck: supple, No JVD Lungs: Clear to auscultation bilaterally, no wheeze, heart;S1 and S2 reg, no murmurs Abd:soft, non tender, non distended, normal bowel sounds Ext: No edema, no clubbing, no cyanosis Neuro: AAO X 3, no focal neurological signs - Constitutional Vitals: Temp Pulse Resp BP Pulse Ox 99.1 F 99 H 20 98/66 96 07/17/19 08:16 07/17/19 08:16 07/17/19 08:16 07/17/19 08:16 07/17/19 09:22 General appearance: Present: no acute distress ROGER score - Roger Score Age > 65: (1) Yes Aspirin use within the Past 7 Days: (1) Yes 3 or more CAD Risk Factors: (1) Yes 2 or more Angina events in past 24 hrs: (1) Yes Known CAD with more than 50% Stenosis: (0) No Elevated Cardiac Markers: (1) Yes ST Deviation Greater than 0.5mm: (0) No ROGER Score: 5 Results - Labs CBC & Chem 7: 07/17/19 07:00 07/15/19 08:06 Labs: Laboratory Last Values WBC 5.4 K/mm3 (4.5-11.0) 07/17/19 07:00 RBC 2.49 M/mm3 (3.65-5.03) L 07/17/19 07:00 Hgb 8.1 gm/dl (11.8-15.2) L 07/17/19 07:00 Hct 24.6 % (35.5-45.6) L 07/17/19 07:00 MCV 99 fl (84-94) H 07/17/19 07:00 MCH 33 pg (28-32) H 07/17/19 07:00 MCHC 33 % (32-34) 07/17/19 07:00 RDW 19.7 % (13.2-15.2) H 07/17/19 07:00 Plt Count 109 K/mm3 (140-440) L 07/17/19 07:00 Lymph % (Auto) 20.8 % (13.4-35.0) 07/15/19 08:06 [place] % (Auto) 13.6 % (0.0-7.3) H 07/15/19 08:06 Eos % (Auto) 2.5 % (0.0-4.3) 07/15/19 08:06 Baso % (Auto) 1.0 % (0.0-1.8) 07/15/19 08:06 Lymph # 0.7 K/mm3 (1.2-5.4) L 07/15/19 08:06 [place] # 0.5 K/mm3 (0.0-0.8) 07/15/19 08:06 Eos # 0.1 K/mm3 (0.0-0.4) 07/15/19 08:06 Baso # 0.0 K/mm3 (0.0-0.1) 07/15/19 08:06 Add Manual Diff Complete 07/11/19 11:55 Total Counted 100 07/11/19 11:55 Seg Neutrophils % 62.1 % (40.0-70.0) 07/15/19 08:06 Seg Neuts % (Manual) 50.0 % (40.0-70.0) 07/11/19 11:55 Band Neutrophils % 0 % 07/11/19 11:55 Lymphocytes % (Manual) 26.0 % (13.4-35.0) 07/11/19 11:55 Reactive Lymphs % (Man) 0 % 07/11/19 11:55 Monocytes % (Manual) 20.0 % (0.0-7.3) H 07/11/19 11:55 Eosinophils % (Manual) 3.0 % (0.0-4.3) 07/11/19 11:55 Basophils % (Manual) 1.0 % (0.0-1.8) 07/11/19 11:55 Metamyelocytes % 0 % 07/11/19 11:55 Myelocytes % 0 % 07/11/19 11:55 Promyelocytes % 0 % 07/11/19 11:55 Blast Cells % 0 % 07/11/19 11:55 Nucleated RBC % Not Reportable 07/11/19 11:55 Seg Neutrophils # 2.1 K/mm3 (1.8-7.7) 07/15/19 08:06 Seg Neutrophils # Man 2.0 K/mm3 (1.8-7.7) 07/11/19 11:55 Band Neutrophils # 0.0 K/mm3 07/11/19 11:55 Lymphocytes # (Manual) 1.0 K/mm3 (1.2-5.4) L 07/11/19 11:55 Abs React Lymphs (Man) 0.0 K/mm3 07/11/19 11:55 Monocytes # (Manual) 0.8 K/mm3 (0.0-0.8) 07/11/19 11:55 Eosinophils # (Manual) 0.1 K/mm3 (0.0-0.4) 07/11/19 11:55 Basophils # (Manual) 0.0 K/mm3 (0.0-0.1) 07/11/19 11:55 Metamyelocytes # 0.0 K/mm3 07/11/19 11:55 Myelocytes # 0.0 K/mm3 07/11/19 11:55 Promyelocytes # 0.0 K/mm3 07/11/19 11:55 Blast Cells # 0.0 K/mm3 07/11/19 11:55 WBC Morphology Not Reportable 07/11/19 11:55 Hypersegmented Neuts Not Reportable 07/11/19 11:55 Hyposegmented Neuts Not Reportable 07/11/19 11:55 Hypogranular Neuts Not Reportable 07/11/19 11:55 Smudge Cells Not Reportable 07/11/19 11:55 Toxic Granulation Not Reportable 07/11/19 11:55 Toxic Vacuolation Not Reportable 07/11/19 11:55 Dohle Bodies Not Reportable 07/11/19 11:55 Pelger-Huet Anomaly Not Reportable 07/11/19 11:55 Gertrude Rods Not Reportable 07/11/19 11:55 Platelet Estimate Consistent w auto 07/11/19 11:55 Clumped Platelets Not Reportable 07/11/19 11:55 Plt Clumps, EDTA Not Reportable 07/11/19 11:55 Large Platelets Not Reportable 07/11/19 11:55 Giant Platelets Not Reportable 07/11/19 11:55 Platelet Satelliting Not Reportable 07/11/19 11:55 Plt Morphology Comment Not Reportable 07/11/19 11:55 RBC Morphology Not Reportable 07/11/19 11:55 Dimorphic RBCs Not Reportable 07/11/19 11:55 Polychromasia Not Reportable 07/11/19 11:55 Hypochromasia Not Reportable 07/11/19 11:55 Poikilocytosis Few 07/11/19 11:55 Anisocytosis Few 07/11/19 11:55 Microcytosis Not Reportable 07/11/19 11:55 Macrocytosis Not Reportable 07/11/19 11:55 Spherocytes Not Reportable 07/11/19 11:55 Pappenheimer Bodies Not Reportable 07/11/19 11:55 Sickle Cells Not Reportable 07/11/19 11:55 Target Cells Rare 07/11/19 11:55 Tear Drop Cells Not Reportable 07/11/19 11:55 Ovalocytes Rare 07/11/19 11:55 Helmet Cells Not Reportable 07/11/19 11:55 [place] Bodies Not Reportable 07/11/19 11:55 [place] Rings Not Reportable 07/11/19 11:55 Priya Cells Not Reportable 07/11/19 11:55 Bite Cells Not Reportable 07/11/19 11:55 Crenated Cell Not Reportable 07/11/19 11:55 Elliptocytes Not Reportable 07/11/19 11:55 Acanthocytes (Spur) Not Reportable 07/11/19 11:55 Rouleaux Not Reportable 07/11/19 11:55 Hemoglobin C Crystals Not Reportable 07/11/19 11:55 Schistocytes Not Reportable 07/11/19 11:55 Malaria parasites Not Reportable 07/11/19 11:55 Jacob Bodies Not Reportable 07/11/19 11:55 Hem Pathologist Commnt No 07/11/19 11:55 Sodium 137 mmol/L (137-145) 07/15/19 08:06 Potassium 4.6 mmol/L (3.6-5.0) 07/15/19 08:06 Chloride 97.1 mmol/L (98-107) L 07/15/19 08:06 Carbon Dioxide 23 mmol/L (22-30) D 07/15/19 08:06 Anion Gap 22 mmol/L 07/15/19 08:06 BUN 49 mg/dL (9-20) H 07/15/19 08:06 Creatinine 5.7 mg/dL (0.8-1.5) H D 07/15/19 08:06 Estimated GFR 12 ml/min 07/15/19 08:06 BUN/Creatinine Ratio 9 % 07/15/19 08:06 Glucose 129 mg/dL (75-100) H 07/15/19 08:06 POC Glucose 98 (70-105) 07/16/19 16:45 Calcium 8.4 mg/dL (8.4-10.2) 07/15/19 08:06 Magnesium 1.60 mg/dL (1.7-2.3) L 07/13/19 02:08 Total Bilirubin 0.50 mg/dL (0.1-1.2) 07/09/19 22:47 AST 55 units/L (5-40) H 07/09/19 22:47 ALT 36 units/L (7-56) 07/09/19 22:47 Alkaline Phosphatase 170 units/L (35-129) H 07/09/19 22:47 Total Protein 6.4 g/dL (6.3-8.2) 07/09/19 22:47 Albumin 2.6 g/dL (3.9-5) L 07/09/19 22:47 Albumin/Globulin Ratio 0.7 % 07/09/19 22:47 Active Medications - Current Medications Current Medications: Generic Name Dose Route Start Last Admin Trade Name Freq PRN Reason Stop Dose Admin Acetaminophen 650 mg 07/10/19 02:08 Tylenol PO Q4H PRN Pain MILD(1-3)/Fever >100.5/DOUGLAS Amlodipine Besylate 20 mg 07/10/19 10:00 07/16/19 09:12 Amlodipine PO 20 mg DAILY BEAN Administration Atorvastatin Calcium 40 mg 07/10/19 22:00 07/16/19 23:57 Lipitor PO 40 mg QHS BEAN Administration Diphenhydramine HCl 25 mg 07/11/19 12:03 07/17/19 05:20 Benadryl IV 25 mg Q6H PRN Administration Itching Epoetin Prashant 10,000 unit 07/10/19 02:11 07/15/19 13:30 Procrit SUB-Q 10,000 unit KATERYNA PRN Administration hemodialysis Heparin Sodium (Porcine) 1,000 unit 07/10/19 02:08 Heparin 10,000 Units/10 Ml IV KATERYNA PRN hemodialysis Sodium Chloride 100 mls @ 999 mls/hr 07/10/19 08:00 Nacl 0.9% IV KATERYNA PRN Hypotension Metoprolol Tartrate 12.5 mg 07/10/19 10:00 07/16/19 23:58 Metoprolol PO 12.5 mg BID BEAN Administration Ondansetron HCl 4 mg 07/10/19 02:08 Zofran IV Q8H PRN Nausea And Vomiting Oxycodone HCl 10 mg 07/10/19 02:19 07/17/19 09:13 Roxicodone PO 10 mg Q6H PRN Administration Pain, Moderate (4-6) Sodium Chloride 10 ml 07/10/19 10:00 07/16/19 23:58 Sodium Chloride Flush Syringe 10 Ml IV 10 ml BID BEAN Administration Sodium Chloride 10 ml 07/10/19 02:08 Sodium Chloride Flush Syringe 10 Ml IV PRN PRN LINE FLUSH Nutrition/Malnutrition Assess - Dietary Evaluation Nutrition/Malnutrition Findings: Nutrition Notes Start: 07/17/19 09:30 Freq: Status: Active Protocol: Document 07/17/19 09:30 JAE (Rec: 07/17/19 09:48 JAE [id number]) Co-Sign 07/17/19 09:30 LP Nutrition Notes Need for Assessment generated from: LOS Initial or Follow up Assessment Current Diagnosis CKD (stage V CKD),COPD, Coronary Artery Disease,Heart Failure,Hyperlipidemia Other Pertinent Diagnosis On HD, afib, pulmonary edema Current Diet Renal Labs/Tests BUN 49 Cr 5.7 BG 129 Pertinent Medications Lipitor Height 5 ft 9 in Weight 56.2 kg Usual Body Weight 72.7 kg [place] Body Weight (kg) 72.72 BMI 18.3 Weight change and time frame Pt reported a 22.6% wt loss in 3 months. Weight Status Underweight Subjective/Other Information RD screen for LOS. Pt stated he had a loss of apetite due to operations he's had in the past, and stress. Pt stated [employer] he ate a couple bites of two meals a day. Pt stated he didn't eat breakfast due to not being hungry. Pt stated that he ate 100% of all meals yesterday. Offered pt a supplement due to poor intakes , but he denied it. Preferences were noted. Pt had slight muscle depletion in the temples. Percent of energy/protein needs met: 84%/87% Burn Absent Trauma Absent GI Symptoms None Current % PO Good (75-100%) Minimum of two criteria Yes Interpretation of Weight Loss (severe) >7.5% in 3 months Muscle Mass Mild Depletion (non-severe) #1 Nutrition Diagnosis Malnutrition Etiology Decreased appetite from stress , and previous operations As Evidenced by Signs and Symptoms Mild muscle mass depletion, >7 .5% wt loss in 3 months. Is patient on ventilator? No Is Patient Ambulatory and/or Out of Bed Yes REE-([facility]-ambulatory/OOB) [ 1699.594 [id number]] Kcal/Kg value to use for calculation 34 Approximate Energy Requirements Using 1911 kcal/Kg Calculation Used for Recommendations Kcal/kg Additional Notes Protein: 67g (>1.2g/kg) Fluid: 5977-0718 ml or per MD Nutrition Intervention Change Diet Order: Continue current Goal #1 Meet at least 80% of energy and protein needs via PO intakes Goal #2 Wt gain/maintenance Anticipated Discharge Needs: Renal diet Follow-Up By: 07/19/19 Additional Comments F/U for PO intakes
--- NOTE | 2019-07-17 14:01 | Progress Note ---
Assessment and Plan 1. ESRD: Patient was admitted with hyperkalemia. Continue hemodialysis three times a week, MWF schedule. Hemodialysis: 07/10, 07/12, 07/15, 07/17. 2. FEN: Hyperkalemia, improved with HD. Renal diet. Monitor. 3. Diarrhea: Resolved. 4. Chronic pleural effusion. 5. Chronic A.fib. 6. HTN. 7. Anemia: Epogen with HD. 8. PAD. Await outpatient HD chair. 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 No new complaints. Objective - Vital Signs Vital signs: Vital Signs - 12hr 07/17/19 07/17/19 07/17/19 03:17 08:16 09:22 Temperature 98.1 F 99.1 F Pulse Rate 92 H 99 H Respiratory 18 20 Rate Blood Pressure 112/77 98/66 O2 Sat by Pulse 94 100 96 Oximetry - Lab 07/17/19 07:00 07/15/19 08:06 Most recent lab results Calcium 8.4 mg/dL (8.4-10.2) 07/15/19 08:06 Magnesium 1.60 mg/dL (1.7-2.3) L 07/13/19 02:08 Medications & Allergies - Medications Allergies/Adverse Reactions: Allergies aspirin Allergy (Verified 02/20/19 22:06) Unknown stomach cramps pork derived (porcine) Allergy (Verified 02/20/19 22:06) Rash venom-honey bee [bee venom (honey bee)] Allergy (Verified 02/20/19 22:06) Anaphylaxis Pork/Porcine Containing Products Adverse Reaction (Severe, Verified 02/20/19 22:06) Nausea,VOMITING Home Medications: Home Medications Medication Instructions Recorded Confirmed Last Taken Type AtorvaSTATin [Lipitor] 40 mg PO QHS #30 05/22/19 07/09/19 Unknown Rx Epoetin Prashant 10,000 Unit [Procrit] 10,000 unit SUB-Q KATERYNA PRN vial 05/22/19 07/09/19 Unknown Rx Metoprolol [Lopressor TAB] 12.5 mg PO BID #60 tablet 05/22/19 07/09/19 Unknown Rx Oxycodone HCl [oxyCODONE] 10 mg PO Q6H PRN #20 05/22/19 07/09/19 Unknown Rx amLODIPine 20 mg PO DAILY #30 05/22/19 07/09/19 Unknown Rx Acetaminophen [Acetaminophen TAB] 1 tab PO Q4H PRN #15 tablet 07/08/19 07/09/19 Unknown Rx Active Medications: Generic Name Dose Route Start Last Admin Trade Name Freq PRN Reason Stop Dose Admin Acetaminophen 650 mg 07/10/19 02:08 Tylenol PO Q4H PRN Pain MILD(1-3)/Fever >100.5/DOUGLAS Amlodipine Besylate 20 mg 07/10/19 10:00 07/16/19 09:12 Amlodipine PO 20 mg DAILY BEAN Administration Atorvastatin Calcium 40 mg 07/10/19 22:00 07/16/19 23:57 Lipitor PO 40 mg QHS BEAN Administration Diphenhydramine HCl 25 mg 07/11/19 12:03 07/17/19 05:20 Benadryl IV 25 mg Q6H PRN Administration Itching Epoetin Prashant 10,000 unit 07/10/19 02:11 07/15/19 13:30 Procrit SUB-Q 10,000 unit KATERYNA PRN Administration hemodialysis Heparin Sodium (Porcine) 1,000 unit 07/10/19 02:08 Heparin 10,000 Units/10 Ml IV KATERYNA PRN hemodialysis Sodium Chloride 100 mls @ 999 mls/hr 07/10/19 08:00 Nacl 0.9% IV KATERYNA PRN Hypotension Metoprolol Tartrate 12.5 mg 07/10/19 10:00 07/16/19 23:58 Metoprolol PO 12.5 mg BID BEAN Administration Ondansetron HCl 4 mg 07/10/19 02:08 Zofran IV Q8H PRN Nausea And Vomiting Oxycodone HCl 10 mg 07/10/19 02:19 07/17/19 09:13 Roxicodone PO 10 mg Q6H PRN Administration Pain, Moderate (4-6) Sodium Chloride 10 ml 07/10/19 10:00 07/16/19 23:58 Sodium Chloride Flush Syringe 10 Ml IV 10 ml BID BEAN Administration Sodium Chloride 10 ml 07/10/19 02:08 Sodium Chloride Flush Syringe 10 Ml IV PRN PRN LINE FLUSH
[2019-07-17] MEDS: amLODIPine 10 MG TAB PO SCH (14:32)
[2019-07-17] MEDS: METOPROLOL TARTRATE 25 MG TAB PO SCH ×2 (14:32→21:03)
[2019-07-18] MEDS: diphenhydrAMINE 50 MG/ML VIAL IV PRN ×4 (00:47→23:17)
[2019-07-18] MEDS: METOPROLOL TARTRATE 25 MG TAB PO SCH ×2 (11:34→23:17)
[2019-07-18] MEDS: amLODIPine 10 MG TAB PO SCH (11:34)
--- NOTE | 2019-07-18 13:16 | Progress Note ---
Assessment and Plan 1. ESRD: Patient was admitted with hyperkalemia. Continue hemodialysis three times a week, MWF schedule. Hemodialysis: 07/10, 07/12, 07/15, 07/17. 2. FEN: Hyperkalemia, improved with HD. Renal diet. Monitor. 3. Diarrhea: Resolved. 4. Chronic pleural effusion. 5. Chronic A.fib. 6. HTN. 7. Anemia: Epogen with HD. 8. PAD. Await outpatient HD chair. 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 No new complaints. Objective - Vital Signs Vital signs: Vital Signs - 12hr 07/18/19 07/18/19 07/18/19 02:12 07:41 11:34 Temperature 98.9 F 98.2 F Pulse Rate 101 H 104 H Respiratory 18 18 Rate Blood Pressure 120/76 120/80 114/81 O2 Sat by Pulse 97 100 Oximetry - Lab 07/17/19 07:00 07/15/19 08:06 Most recent lab results Calcium 8.4 mg/dL (8.4-10.2) 07/15/19 08:06 Magnesium 1.60 mg/dL (1.7-2.3) L 07/13/19 02:08 Medications & Allergies - Medications Allergies/Adverse Reactions: Allergies aspirin Allergy (Verified 02/20/19 22:06) Unknown stomach cramps pork derived (porcine) Allergy (Verified 02/20/19 22:06) Rash venom-honey bee [bee venom (honey bee)] Allergy (Verified 02/20/19 22:06) Anaphylaxis Pork/Porcine Containing Products Adverse Reaction (Severe, Verified 02/20/19 22:06) Nausea,VOMITING Home Medications: Home Medications Medication Instructions Recorded Confirmed Last Taken Type AtorvaSTATin [Lipitor] 40 mg PO QHS #30 05/22/19 07/09/19 Unknown Rx Epoetin Prashant 10,000 Unit [Procrit] 10,000 unit SUB-Q KATERYNA PRN vial 05/22/19 07/09/19 Unknown Rx Metoprolol [Lopressor TAB] 12.5 mg PO BID #60 tablet 05/22/19 07/09/19 Unknown Rx Oxycodone HCl [oxyCODONE] 10 mg PO Q6H PRN #20 05/22/19 07/09/19 Unknown Rx amLODIPine 20 mg PO DAILY #30 05/22/19 07/09/19 Unknown Rx Acetaminophen [Acetaminophen TAB] 1 tab PO Q4H PRN #15 tablet 07/08/19 07/09/19 Unknown Rx Active Medications: Generic Name Dose Route Start Last Admin Trade Name Freq PRN Reason Stop Dose Admin Acetaminophen 650 mg 07/10/19 02:08 Tylenol PO Q4H PRN Pain MILD(1-3)/Fever >100.5/DOUGLAS Amlodipine Besylate 20 mg 07/10/19 10:00 07/18/19 11:34 Amlodipine PO Not Given DAILY BEAN Atorvastatin Calcium 40 mg 07/10/19 22:00 07/17/19 21:03 Lipitor PO 40 mg QHS BEAN Administration Diphenhydramine HCl 25 mg 07/11/19 12:03 07/18/19 07:36 Benadryl IV 25 mg Q6H PRN Administration Itching Epoetin Prashant 10,000 unit 07/10/19 02:11 07/17/19 13:00 Procrit SUB-Q 10,000 unit KATERYNA PRN Administration hemodialysis Heparin Sodium (Porcine) 1,000 unit 07/10/19 02:08 Heparin 10,000 Units/10 Ml IV KATERYNA PRN hemodialysis Sodium Chloride 100 mls @ 999 mls/hr 07/10/19 08:00 Nacl 0.9% IV KATERYNA PRN Hypotension Metoprolol Tartrate 12.5 mg 07/10/19 10:00 07/18/19 11:34 Metoprolol PO Not Given BID BEAN Ondansetron HCl 4 mg 07/10/19 02:08 Zofran IV Q8H PRN Nausea And Vomiting Oxycodone HCl 10 mg 07/10/19 02:19 07/17/19 20:54 Roxicodone PO 10 mg Q6H PRN Administration Pain, Moderate (4-6) Sodium Chloride 10 ml 07/10/19 10:00 07/18/19 11:36 Sodium Chloride Flush Syringe 10 Ml IV 10 ml BID BEAN Administration Sodium Chloride 10 ml 07/10/19 02:08 Sodium Chloride Flush Syringe 10 Ml IV PRN PRN LINE FLUSH
--- NOTE | 2019-07-18 16:34 | Progress Note ---
Assessment and Plan Assessment and plan: End stage renal disease on dialysis -Monday dialysis -Needs Dialysis placement -adoption manager involved Acute hyperkalemia -Resolved Acute on chronic systolic heart failure -Strict I/O, daily weight -monitor uop q shift -afterload reduction -blood pressure control Acidosis -supportive care, -repeat labs in AM HTN (hypertension) -Cont antihypertensives and adjust meds as necessary Diarrhea -Since resolved in the ER -Antidiarrheal PRN SIRS without acute organ dysfunction. Resolved. A-fib -EKG shows Sinus rhythm -Rate control with home meds once reconciled Anemia -due to chronic kidney disease Moderate protein calorie malnutrition. Nutritional support. DVT prophylaxis -SCDs bilaterally - Heparin and GI prophylaxis Disposition: Patient medically stable for discharge but awaiting outpatient dialysis placement History Interval history: Patient denies chest pain or shortness of breath, No new complaints Hospitalist Physical - Physical exam Narrative exam: GEN: Not in acute distress, lying in bed, malnourished HEENT: Normocephalic, atraumatic, Neck: supple, No JVD Lungs: Clear to auscultation bilaterally, no wheeze, heart;S1 and S2 reg, no murmurs Abd:soft, non tender, non distended, normal bowel sounds Ext: No edema, no clubbing, no cyanosis Neuro: AAO X 3, no focal neurological signs - Constitutional Vitals: Temp Pulse Resp BP Pulse Ox 97.9 F 114 H 18 104/68 100 07/18/19 13:06 07/18/19 13:06 07/18/19 13:06 07/18/19 13:06 07/18/19 13:06 General appearance: Present: no acute distress ROGER score - Roger Score Age > 65: (1) Yes Aspirin use within the Past 7 Days: (1) Yes 3 or more CAD Risk Factors: (1) Yes 2 or more Angina events in past 24 hrs: (1) Yes Known CAD with more than 50% Stenosis: (0) No Elevated Cardiac Markers: (1) Yes ST Deviation Greater than 0.5mm: (0) No ROGER Score: 5 Results - Labs CBC & Chem 7: 07/17/19 07:00 07/15/19 08:06 Labs: Laboratory Last Values WBC 5.4 K/mm3 (4.5-11.0) 07/17/19 07:00 RBC 2.49 M/mm3 (3.65-5.03) L 07/17/19 07:00 Hgb 8.1 gm/dl (11.8-15.2) L 07/17/19 07:00 Hct 24.6 % (35.5-45.6) L 07/17/19 07:00 MCV 99 fl (84-94) H 07/17/19 07:00 MCH 33 pg (28-32) H 07/17/19 07:00 MCHC 33 % (32-34) 07/17/19 07:00 RDW 19.7 % (13.2-15.2) H 07/17/19 07:00 Plt Count 109 K/mm3 (140-440) L 07/17/19 07:00 Lymph % (Auto) 20.8 % (13.4-35.0) 07/15/19 08:06 [place] % (Auto) 13.6 % (0.0-7.3) H 07/15/19 08:06 Eos % (Auto) 2.5 % (0.0-4.3) 07/15/19 08:06 Baso % (Auto) 1.0 % (0.0-1.8) 07/15/19 08:06 Lymph # 0.7 K/mm3 (1.2-5.4) L 07/15/19 08:06 [place] # 0.5 K/mm3 (0.0-0.8) 07/15/19 08:06 Eos # 0.1 K/mm3 (0.0-0.4) 07/15/19 08:06 Baso # 0.0 K/mm3 (0.0-0.1) 07/15/19 08:06 Add Manual Diff Complete 07/11/19 11:55 Total Counted 100 07/11/19 11:55 Seg Neutrophils % 62.1 % (40.0-70.0) 07/15/19 08:06 Seg Neuts % (Manual) 50.0 % (40.0-70.0) 07/11/19 11:55 Band Neutrophils % 0 % 07/11/19 11:55 Lymphocytes % (Manual) 26.0 % (13.4-35.0) 07/11/19 11:55 Reactive Lymphs % (Man) 0 % 07/11/19 11:55 Monocytes % (Manual) 20.0 % (0.0-7.3) H 07/11/19 11:55 Eosinophils % (Manual) 3.0 % (0.0-4.3) 07/11/19 11:55 Basophils % (Manual) 1.0 % (0.0-1.8) 07/11/19 11:55 Metamyelocytes % 0 % 07/11/19 11:55 Myelocytes % 0 % 07/11/19 11:55 Promyelocytes % 0 % 07/11/19 11:55 Blast Cells % 0 % 07/11/19 11:55 Nucleated RBC % Not Reportable 07/11/19 11:55 Seg Neutrophils # 2.1 K/mm3 (1.8-7.7) 07/15/19 08:06 Seg Neutrophils # Man 2.0 K/mm3 (1.8-7.7) 07/11/19 11:55 Band Neutrophils # 0.0 K/mm3 07/11/19 11:55 Lymphocytes # (Manual) 1.0 K/mm3 (1.2-5.4) L 07/11/19 11:55 Abs React Lymphs (Man) 0.0 K/mm3 07/11/19 11:55 Monocytes # (Manual) 0.8 K/mm3 (0.0-0.8) 07/11/19 11:55 Eosinophils # (Manual) 0.1 K/mm3 (0.0-0.4) 07/11/19 11:55 Basophils # (Manual) 0.0 K/mm3 (0.0-0.1) 07/11/19 11:55 Metamyelocytes # 0.0 K/mm3 07/11/19 11:55 Myelocytes # 0.0 K/mm3 07/11/19 11:55 Promyelocytes # 0.0 K/mm3 07/11/19 11:55 Blast Cells # 0.0 K/mm3 07/11/19 11:55 WBC Morphology Not Reportable 07/11/19 11:55 Hypersegmented Neuts Not Reportable 07/11/19 11:55 Hyposegmented Neuts Not Reportable 07/11/19 11:55 Hypogranular Neuts Not Reportable 07/11/19 11:55 Smudge Cells Not Reportable 07/11/19 11:55 Toxic Granulation Not Reportable 07/11/19 11:55 Toxic Vacuolation Not Reportable 07/11/19 11:55 Dohle Bodies Not Reportable 07/11/19 11:55 Pelger-Huet Anomaly Not Reportable 07/11/19 11:55 Gertrude Rods Not Reportable 07/11/19 11:55 Platelet Estimate Consistent w auto 07/11/19 11:55 Clumped Platelets Not Reportable 07/11/19 11:55 Plt Clumps, EDTA Not Reportable 07/11/19 11:55 Large Platelets Not Reportable 07/11/19 11:55 Giant Platelets Not Reportable 07/11/19 11:55 Platelet Satelliting Not Reportable 07/11/19 11:55 Plt Morphology Comment Not Reportable 07/11/19 11:55 RBC Morphology Not Reportable 07/11/19 11:55 Dimorphic RBCs Not Reportable 07/11/19 11:55 Polychromasia Not Reportable 07/11/19 11:55 Hypochromasia Not Reportable 07/11/19 11:55 Poikilocytosis Few 07/11/19 11:55 Anisocytosis Few 07/11/19 11:55 Microcytosis Not Reportable 07/11/19 11:55 Macrocytosis Not Reportable 07/11/19 11:55 Spherocytes Not Reportable 07/11/19 11:55 Pappenheimer Bodies Not Reportable 07/11/19 11:55 Sickle Cells Not Reportable 07/11/19 11:55 Target Cells Rare 07/11/19 11:55 Tear Drop Cells Not Reportable 07/11/19 11:55 Ovalocytes Rare 07/11/19 11:55 Helmet Cells Not Reportable 07/11/19 11:55 [place] Bodies Not Reportable 07/11/19 11:55 [place] Rings Not Reportable 07/11/19 11:55 Priya Cells Not Reportable 07/11/19 11:55 Bite Cells Not Reportable 07/11/19 11:55 Crenated Cell Not Reportable 07/11/19 11:55 Elliptocytes Not Reportable 07/11/19 11:55 Acanthocytes (Spur) Not Reportable 07/11/19 11:55 Rouleaux Not Reportable 07/11/19 11:55 Hemoglobin C Crystals Not Reportable 07/11/19 11:55 Schistocytes Not Reportable 07/11/19 11:55 Malaria parasites Not Reportable 07/11/19 11:55 Jacob Bodies Not Reportable 07/11/19 11:55 Hem Pathologist Commnt No 07/11/19 11:55 Sodium 137 mmol/L (137-145) 07/15/19 08:06 Potassium 4.6 mmol/L (3.6-5.0) 07/15/19 08:06 Chloride 97.1 mmol/L (98-107) L 07/15/19 08:06 Carbon Dioxide 23 mmol/L (22-30) D 07/15/19 08:06 Anion Gap 22 mmol/L 07/15/19 08:06 BUN 49 mg/dL (9-20) H 07/15/19 08:06 Creatinine 5.7 mg/dL (0.8-1.5) H D 07/15/19 08:06 Estimated GFR 12 ml/min 07/15/19 08:06 BUN/Creatinine Ratio 9 % 07/15/19 08:06 Glucose 129 mg/dL (75-100) H 07/15/19 08:06 POC Glucose 98 (70-105) 07/16/19 16:45 Calcium 8.4 mg/dL (8.4-10.2) 07/15/19 08:06 Magnesium 1.60 mg/dL (1.7-2.3) L 07/13/19 02:08 Total Bilirubin 0.50 mg/dL (0.1-1.2) 07/09/19 22:47 AST 55 units/L (5-40) H 07/09/19 22:47 ALT 36 units/L (7-56) 07/09/19 22:47 Alkaline Phosphatase 170 units/L (35-129) H 07/09/19 22:47 Total Protein 6.4 g/dL (6.3-8.2) 07/09/19 22:47 Albumin 2.6 g/dL (3.9-5) L 07/09/19 22:47 Albumin/Globulin Ratio 0.7 % 07/09/19 22:47 Active Medications - Current Medications Current Medications: Generic Name Dose Route Start Last Admin Trade Name Freq PRN Reason Stop Dose Admin Acetaminophen 650 mg 07/10/19 02:08 Tylenol PO Q4H PRN Pain MILD(1-3)/Fever >100.5/DOUGLAS Amlodipine Besylate 20 mg 07/10/19 10:00 07/18/19 11:34 Amlodipine PO Not Given DAILY [facility] Atorvastatin Calcium 40 mg 07/10/19 22:00 07/17/19 21:03 Lipitor PO 40 mg QHS BEAN Administration Diphenhydramine HCl 25 mg 07/11/19 12:03 07/18/19 14:47 Benadryl IV 25 mg Q6H PRN Administration Itching Epoetin Prashant 10,000 unit 07/10/19 02:11 07/17/19 13:00 Procrit SUB-Q 10,000 unit KATERYNA PRN Administration hemodialysis Heparin Sodium (Porcine) 1,000 unit 07/10/19 02:08 Heparin 10,000 Units/10 Ml IV KATERYNA PRN hemodialysis Sodium Chloride 100 mls @ 999 mls/hr 07/10/19 08:00 Nacl 0.9% IV KATERYNA PRN Hypotension Lidocaine/Prilocaine 1 applic 07/19/19 10:00 Emla TP 3XW [facility] Metoprolol Tartrate 12.5 mg 07/10/19 10:00 07/18/19 11:34 Metoprolol PO Not Given BID [facility] Ondansetron HCl 4 mg 07/10/19 02:08 Zofran IV Q8H PRN Nausea And Vomiting Oxycodone HCl 10 mg 07/10/19 02:19 07/17/19 20:54 Roxicodone PO 10 mg Q6H PRN Administration Pain, Moderate (4-6) Sodium Chloride 10 ml 07/10/19 10:00 07/18/19 11:36 Sodium Chloride Flush Syringe 10 Ml IV 10 ml BID EBAN Administration Sodium Chloride 10 ml 07/10/19 02:08 Sodium Chloride Flush Syringe 10 Ml IV PRN PRN LINE FLUSH Nutrition/Malnutrition Assess - Dietary Evaluation Nutrition/Malnutrition Findings: Nutrition Notes Start: 07/17/19 09:30 Freq: Status: Active Protocol: Document 07/17/19 09:30 JAE (Rec: 07/17/19 09:48 JAE [id number]) Co-Sign 07/17/19 09:30 LP Nutrition Notes Need for Assessment generated from: LOS Initial or Follow up Assessment Current Diagnosis CKD (stage V CKD),COPD, Coronary Artery Disease,Heart Failure,Hyperlipidemia Other Pertinent Diagnosis On HD, afib, pulmonary edema Current Diet Renal Labs/Tests BUN 49 Cr 5.7 BG 129 Pertinent Medications Lipitor Height 5 ft 9 in Weight 56.2 kg Usual Body Weight 72.7 kg Moran Body Weight (kg) 72.72 BMI 18.3 Weight change and time frame Pt reported a 22.6% wt loss in 3 months. Weight Status Underweight Subjective/Other Information RD screen for LOS. Pt stated he had a loss of apetite due to operations he's had in the past, and stress. Pt stated [employer]ING [employer]ACH[employer]PER[employer] he ate a couple bites of two meals a day. Pt stated he didn't eat breakfast due to not being hungry. Pt stated that he ate 100% of all meals yesterday. Offered pt a supplement due to poor intakes , but he denied it. Preferences were noted. Pt had slight muscle depletion in the temples. Percent of energy/protein needs met: 84%/87% Burn Absent Trauma Absent GI Symptoms None Current % PO Good (75-100%) Minimum of two criteria Yes Interpretation of Weight Loss (severe) >7.5% in 3 months Muscle Mass Mild Depletion (non-severe) #1 Nutrition Diagnosis Malnutrition Etiology Decreased appetite from stress , and previous operations As Evidenced by Signs and Symptoms Mild muscle mass depletion, >7 .5% wt loss in 3 months. Is patient on ventilator? No Is Patient Ambulatory and/or Out of Bed Yes REE-([facility]-ambulatory/OOB) [ 1699.594 [id number]] Kcal/Kg value to use for calculation 34 Approximate Energy Requirements Using 1911 kcal/Kg Calculation Used for Recommendations Kcal/kg Additional Notes Protein: 67g (>1.2g/kg) Fluid: 5538-5241 ml or per MD Nutrition Intervention Change Diet Order: Continue current Goal #1 Meet at least 80% of energy and protein needs via PO intakes Goal #2 Wt gain/maintenance Anticipated Discharge Needs: Renal diet Follow-Up By: 07/19/19 Additional Comments F/U for PO intakes
[2019-07-18] MEDS: oxyCODONE 5 MG TAB PO PRN (20:11)
[2019-07-19 05:08] LABS: Hematocrit 24.2 % (35.5-45.6); Hemoglobin 7.9 gm/dl (11.8-15.2); Mean Corpuscular HGB Conc 33 % (32-34); Mean Corpuscular Volume 102 fl (84-94); Platelet Count 109 K/mm3 (140-440); Red Blood Count 2.37 M/mm3 (3.65-5.03); Red Cell Distribution Width 19.5 % (13.2-15.2)
[2019-07-19 05:31] LABS: Calcium 8.5 mg/dL (8.4-10.2)
[2019-07-19] MEDS: diphenhydrAMINE 50 MG/ML VIAL IV PRN ×3 (05:43→18:11)
[2019-07-19 06:52] LABS: Basophils % (Manual) 0 % (0.0-1.8); Burr Cells Few; Ovalocytes Few; Tear Drop Cells Few; Total Cells Counted 100
[2019-07-19 06:53] LABS: Platelet Estimate Consistent w Auto; Schistocytes Few
--- NOTE | 2019-07-19 09:06 | Progress Note ---
Assessment and Plan 1. ESRD: Patient was admitted with hyperkalemia. Continue hemodialysis three times a week, MWF schedule. Hemodialysis: 07/10, 07/12, 07/15, 07/17, 07/19. 2. FEN: Hyperkalemia, improved with HD. Renal diet. Monitor. 3. Diarrhea: Resolved. 4. Chronic pleural effusion. 5. Chronic A.fib. 6. HTN. 7. Anemia: Epogen with HD. 8. PAD. Await outpatient HD chair. Examination: General appearance: well-developed, appears stated age, not in distress HEENT: ATNC, ELENI, hearing intact, vision intact Neck: neck supple, trachea midline Respiratory: Clear to Auscultation Heart: S1S2, irregular, no murmur Gastrointestinal: soft, normoactive bowel sounds, NT, ND Integumentary: no rash, warm and dry Neurologic: no focal deficit, no asterixis, alert and oriented x3 Ext: L forearm amputation, no edema Hemodialysis access: R IJ tunnel catheter, R arm AVF Subjective Date of service: 07/19/19 Principal diagnosis: Volume overload Interval history: Patient was seen and examined at bedside. No new complaints. Objective - Vital Signs Vital signs: Vital Signs - 12hr 07/18/19 07/18/19 07/18/19 21:49 22:00 23:17 Temperature 98.9 F Pulse Rate 114 H 117 H 114 H Pulse Rate [ 114 H Left Radial] Respiratory 16 Rate Blood Pressure 122/87 122/87 Blood Pressure [Right] O2 Sat by Pulse 100 100 Oximetry 07/19/19 07/19/19 02:00 08:22 Temperature 97.5 F L 97.9 F Pulse Rate 112 H 103 H Pulse Rate [ Left Radial] Respiratory 18 20 Rate Blood Pressure 140/95 Blood Pressure 118/76 [Right] O2 Sat by Pulse 96 96 Oximetry - Lab 07/19/19 04:04 07/19/19 04:04 Most recent lab results Calcium 8.5 mg/dL (8.4-10.2) 07/19/19 04:04 Magnesium 1.60 mg/dL (1.7-2.3) L 07/13/19 02:08 Medications & Allergies - Medications Allergies/Adverse Reactions: Allergies aspirin Allergy (Verified 02/20/19 22:06) Unknown stomach cramps pork derived (porcine) Allergy (Verified 02/20/19 22:06) Rash venom-honey bee [bee venom (honey bee)] Allergy (Verified 02/20/19 22:06) Anaphylaxis Pork/Porcine Containing Products Adverse Reaction (Severe, Verified 02/20/19 22:06) Nausea,VOMITING Home Medications: Home Medications Medication Instructions Recorded Confirmed Last Taken Type AtorvaSTATin [Lipitor] 40 mg PO QHS #30 05/22/19 07/09/19 Unknown Rx Epoetin Prashant 10,000 Unit [Procrit] 10,000 unit SUB-Q KATERYNA PRN vial 05/22/19 07/09/19 Unknown Rx Metoprolol [Lopressor TAB] 12.5 mg PO BID #60 tablet 05/22/19 07/09/19 Unknown Rx Oxycodone HCl [oxyCODONE] 10 mg PO Q6H PRN #20 05/22/19 07/09/19 Unknown Rx amLODIPine 20 mg PO DAILY #30 05/22/19 07/09/19 Unknown Rx Acetaminophen [Acetaminophen TAB] 1 tab PO Q4H PRN #15 tablet 07/08/19 07/09/19 Unknown Rx Active Medications: Generic Name Dose Route Start Last Admin Trade Name Freq PRN Reason Stop Dose Admin Acetaminophen 650 mg 07/10/19 02:08 Tylenol PO Q4H PRN Pain MILD(1-3)/Fever >100.5/DOUGLAS Amlodipine Besylate 20 mg 07/10/19 10:00 07/18/19 11:34 Amlodipine PO Not Given DAILY BEAN Atorvastatin Calcium 40 mg 07/10/19 22:00 07/18/19 23:16 Lipitor PO 40 mg QHS BEAN Administration Diphenhydramine HCl 25 mg 07/11/19 12:03 07/19/19 05:43 Benadryl IV 25 mg Q6H PRN Administration Itching Epoetin Prashant 10,000 unit 07/10/19 02:11 07/17/19 13:00 Procrit SUB-Q 10,000 unit KATERYNA PRN Administration hemodialysis Heparin Sodium (Porcine) 1,000 unit 07/10/19 02:08 Heparin 10,000 Units/10 Ml IV KATERYNA PRN hemodialysis Sodium Chloride 100 mls @ 999 mls/hr 07/10/19 08:00 Nacl 0.9% IV KATERYNA PRN Hypotension Lidocaine/Prilocaine 1 applic 07/19/19 10:00 Emla TP MoWeFr BEAN Metoprolol Tartrate 12.5 mg 07/10/19 10:00 07/18/19 23:17 Metoprolol PO 12.5 mg BID BEAN Administration Ondansetron HCl 4 mg 07/10/19 02:08 Zofran IV Q8H PRN Nausea And Vomiting Oxycodone HCl 10 mg 07/10/19 02:19 07/18/19 20:11 Roxicodone PO 10 mg Q6H PRN Administration Pain, Moderate (4-6) Sodium Chloride 10 ml 07/10/19 10:00 07/18/19 23:18 Sodium Chloride Flush Syringe 10 Ml IV 10 ml BID BEAN Administration Sodium Chloride 10 ml 07/10/19 02:08 Sodium Chloride Flush Syringe 10 Ml IV PRN PRN LINE FLUSH
[2019-07-19] MEDS ORDERED: SODIUM CHLORIDE*PRIMING MACHINE ONLY FOR DIALYSIS MC ONE (10:49)
--- NOTE | 2019-07-19 12:32 | Progress Note ---
Assessment and Plan Assessment and plan: End stage renal disease on dialysis -Monday dialysis -Needs Dialysis placement -health safety manager involved Acute hyperkalemia -Resolved Acute on chronic systolic heart failure -Strict I/O, daily weight -monitor uop q shift -afterload reduction -blood pressure control Acidosis -supportive care, -repeat labs in AM HTN (hypertension) -Cont antihypertensives and adjust meds as necessary Diarrhea -Since resolved in the ER -Antidiarrheal PRN SIRS without acute organ dysfunction. Resolved. A-fib -EKG shows Sinus rhythm -Rate control with home meds once reconciled Anemia -due to chronic kidney disease Moderate protein calorie malnutrition. Nutritional support. DVT prophylaxis -SCDs bilaterally - Heparin and GI prophylaxis Disposition: Patient medically stable for discharge but awaiting outpatient dialysis placement History Interval history: Patient denies chest pain or shortness of breath, No new complaints Hospitalist Physical - Physical exam Narrative exam: GEN: Not in acute distress, lying in bed, malnourished HEENT: Normocephalic, atraumatic, Neck: supple, No JVD Lungs: Clear to auscultation bilaterally, no wheeze, heart;S1 and S2 reg, no murmurs Abd:soft, non tender, non distended, normal bowel sounds Ext: No edema, no clubbing, no cyanosis Neuro: AAO X 3, no focal neurological signs - Constitutional Vitals: Temp Pulse Resp BP Pulse Ox 98.7 F 111 H 20 127/86 96 07/19/19 10:15 07/19/19 11:30 07/19/19 10:15 07/19/19 11:30 07/19/19 08:22 General appearance: Present: no acute distress ROGER score - Roger Score Age > 65: (1) Yes Aspirin use within the Past 7 Days: (1) Yes 3 or more CAD Risk Factors: (1) Yes 2 or more Angina events in past 24 hrs: (1) Yes Known CAD with more than 50% Stenosis: (0) No Elevated Cardiac Markers: (1) Yes ST Deviation Greater than 0.5mm: (0) No ROGER Score: 5 Results - Labs CBC & Chem 7: 07/19/19 04:04 07/19/19 04:04 Labs: Laboratory Last Values WBC 3.7 K/mm3 (4.5-11.0) L 07/19/19 04:04 RBC 2.37 M/mm3 (3.65-5.03) L 07/19/19 04:04 Hgb 7.9 gm/dl (11.8-15.2) L 07/19/19 04:04 Hct 24.2 % (35.5-45.6) L 07/19/19 04:04 MCV 102 fl (84-94) H 07/19/19 04:04 MCH 33 pg (28-32) H 07/19/19 04:04 MCHC 33 % (32-34) 07/19/19 04:04 RDW 19.5 % (13.2-15.2) H 07/19/19 04:04 Plt Count 109 K/mm3 (140-440) L 07/19/19 04:04 Lymph % (Auto) 20.8 % (13.4-35.0) 07/15/19 08:06 [place] % (Auto) Metalworking Specialist 07/19/19 04:04 Eos % (Auto) 2.5 % (0.0-4.3) 07/15/19 08:06 Baso % (Auto) 1.0 % (0.0-1.8) 07/15/19 08:06 Lymph # 0.7 K/mm3 (1.2-5.4) L 07/15/19 08:06 [place] # 0.5 K/mm3 (0.0-0.8) 07/15/19 08:06 Eos # 0.1 K/mm3 (0.0-0.4) 07/15/19 08:06 Baso # 0.0 K/mm3 (0.0-0.1) 07/15/19 08:06 Add Manual Diff Complete 07/19/19 04:04 Total Counted 100 07/19/19 04:04 Seg Neutrophils % 62.1 % (40.0-70.0) 07/15/19 08:06 Seg Neuts % (Manual) 52.0 % (40.0-70.0) 07/19/19 04:04 Band Neutrophils % 0 % 07/19/19 04:04 Lymphocytes % (Manual) 35.0 % (13.4-35.0) 07/19/19 04:04 Reactive Lymphs % (Man) 0 % 07/19/19 04:04 Monocytes % (Manual) 9.0 % (0.0-7.3) H 07/19/19 04:04 Eosinophils % (Manual) 4.0 % (0.0-4.3) 07/19/19 04:04 Basophils % (Manual) 0 % (0.0-1.8) 07/19/19 04:04 Metamyelocytes % 0 % 07/19/19 04:04 Myelocytes % 0 % 07/19/19 04:04 Promyelocytes % 0 % 07/19/19 04:04 Blast Cells % 0 % 07/19/19 04:04 Nucleated RBC % Not Reportable 07/19/19 04:04 Seg Neutrophils # 2.1 K/mm3 (1.8-7.7) 07/15/19 08:06 Seg Neutrophils # Man 1.9 K/mm3 (1.8-7.7) 07/19/19 04:04 Band Neutrophils # 0.0 K/mm3 07/19/19 04:04 Lymphocytes # (Manual) 1.3 K/mm3 (1.2-5.4) 07/19/19 04:04 Abs React Lymphs (Man) 0.0 K/mm3 07/19/19 04:04 Monocytes # (Manual) 0.3 K/mm3 (0.0-0.8) 07/19/19 04:04 Eosinophils # (Manual) 0.1 K/mm3 (0.0-0.4) 07/19/19 04:04 Basophils # (Manual) 0.0 K/mm3 (0.0-0.1) 07/19/19 04:04 Metamyelocytes # 0.0 K/mm3 07/19/19 04:04 Myelocytes # 0.0 K/mm3 07/19/19 04:04 Promyelocytes # 0.0 K/mm3 07/19/19 04:04 Blast Cells # 0.0 K/mm3 07/19/19 04:04 WBC Morphology Not Reportable 07/19/19 04:04 Hypersegmented Neuts Not Reportable 07/19/19 04:04 Hyposegmented Neuts Not Reportable 07/19/19 04:04 Hypogranular Neuts Not Reportable 07/19/19 04:04 Smudge Cells Not Reportable 07/19/19 04:04 Toxic Granulation Not Reportable 07/19/19 04:04 Toxic Vacuolation Not Reportable 07/19/19 04:04 Dohle Bodies Not Reportable 07/19/19 04:04 Pelger-Huet Anomaly Not Reportable 07/19/19 04:04 Gertrude Rods Not Reportable 07/19/19 04:04 Platelet Estimate Consistent w auto 07/19/19 04:04 Clumped Platelets Not Reportable 07/19/19 04:04 Plt Clumps, EDTA Not Reportable 07/19/19 04:04 Large Platelets Not Reportable 07/19/19 04:04 Giant Platelets Not Reportable 07/19/19 04:04 Platelet Satelliting Not Reportable 07/19/19 04:04 Plt Morphology Comment Not Reportable 07/19/19 04:04 RBC Morphology Not Reportable 07/19/19 04:04 Dimorphic RBCs Not Reportable 07/19/19 04:04 Polychromasia Not Reportable 07/19/19 04:04 Hypochromasia Not Reportable 07/19/19 04:04 Poikilocytosis Not Reportable 07/19/19 04:04 Anisocytosis Not Reportable 07/19/19 04:04 Microcytosis Not Reportable 07/19/19 04:04 Macrocytosis Not Reportable 07/19/19 04:04 Spherocytes Not Reportable 07/19/19 04:04 Pappenheimer Bodies Not Reportable 07/19/19 04:04 Sickle Cells Not Reportable 07/19/19 04:04 Target Cells Not Reportable 07/19/19 04:04 Tear Drop Cells Few 07/19/19 04:04 Ovalocytes Few 07/19/19 04:04 Helmet Cells Not Reportable 07/19/19 04:04 Merc[place] Bodies Not Reportable 07/19/19 04:04 Speed Rings Not Reportable 07/19/19 04:04 Priya Cells Few 07/19/19 04:04 Bite Cells Not Reportable 07/19/19 04:04 Crenated Cell Not Reportable 07/19/19 04:04 Elliptocytes Not Reportable 07/19/19 04:04 Acanthocytes (Spur) Not Reportable 07/19/19 04:04 Rouleaux Not Reportable 07/19/19 04:04 Hemoglobin C Crystals Not Reportable 07/19/19 04:04 Schistocytes Few 07/19/19 04:04 Malaria parasites Not Reportable 07/19/19 04:04 Jacob Bodies Not Reportable 07/19/19 04:04 Hem Pathologist Commnt No 07/19/19 04:04 Sodium 132 mmol/L (137-145) L 07/19/19 04:04 Potassium 5.1 mmol/L (3.6-5.0) H 07/19/19 04:04 Chloride 93.6 mmol/L (98-107) L 07/19/19 04:04 Carbon Dioxide 26 mmol/L (22-30) 07/19/19 04:04 Anion Gap 18 mmol/L 07/19/19 04:04 BUN 40 mg/dL (9-20) H 07/19/19 04:04 Creatinine 4.8 mg/dL (0.8-1.5) H 07/19/19 04:04 Estimated GFR 15 ml/min 07/19/19 04:04 BUN/Creatinine Ratio 8 % 07/19/19 04:04 Glucose 104 mg/dL (75-100) H 07/19/19 04:04 POC Glucose 140 (70-105) H 07/18/19 22:03 Calcium 8.5 mg/dL (8.4-10.2) 07/19/19 04:04 Magnesium 1.60 mg/dL (1.7-2.3) L 07/13/19 02:08 Total Bilirubin 0.50 mg/dL (0.1-1.2) 07/09/19 22:47 AST 55 units/L (5-40) H 07/09/19 22:47 ALT 36 units/L (7-56) 07/09/19 22:47 Alkaline Phosphatase 170 units/L (35-129) H 07/09/19 22:47 Total Protein 6.4 g/dL (6.3-8.2) 07/09/19 22:47 Albumin 2.6 g/dL (3.9-5) L 07/09/19 22:47 Albumin/Globulin Ratio 0.7 % 07/09/19 22:47 Active Medications - Current Medications Current Medications: Generic Name Dose Route Start Last Admin Trade Name Freq PRN Reason Stop Dose Admin Acetaminophen 650 mg 07/10/19 02:08 Tylenol PO Q4H PRN Pain MILD(1-3)/Fever >100.5/DOUGLAS Amlodipine Besylate 20 mg 07/10/19 10:00 07/18/19 11:34 Amlodipine PO Not Given DAILY BEAN Atorvastatin Calcium 40 mg 07/10/19 22:00 07/18/19 23:16 Lipitor PO 40 mg QHS BEAN Administration Diphenhydramine HCl 25 mg 07/11/19 12:03 07/19/19 05:43 Benadryl IV 25 mg Q6H PRN Administration Itching Epoetin Prashant 10,000 unit 07/10/19 02:11 07/17/19 13:00 Procrit SUB-Q 10,000 unit KATERYNA PRN Administration hemodialysis Heparin Sodium (Porcine) 1,000 unit 07/10/19 02:08 Heparin 10,000 Units/10 Ml IV KATERYNA PRN hemodialysis Sodium Chloride 100 mls @ 999 mls/hr 07/10/19 08:00 Nacl 0.9% IV KATERYNA PRN Hypotension Lidocaine/Prilocaine 1 applic 07/19/19 10:00 Emla TP MoWeFr BEAN Metoprolol Tartrate 12.5 mg 07/10/19 10:00 07/18/19 23:17 Metoprolol PO 12.5 mg BID BEAN Administration Ondansetron HCl 4 mg 07/10/19 02:08 Zofran IV Q8H PRN Nausea And Vomiting Oxycodone HCl 10 mg 07/10/19 02:19 07/18/19 20:11 Roxicodone PO 10 mg Q6H PRN Administration Pain, Moderate (4-6) Sodium Chloride 10 ml 07/10/19 10:00 07/18/19 23:18 Sodium Chloride Flush Syringe 10 Ml IV 10 ml BID BEAN Administration Sodium Chloride 10 ml 07/10/19 02:08 Sodium Chloride Flush Syringe 10 Ml IV PRN PRN LINE FLUSH Nutrition/Malnutrition Assess - Dietary Evaluation Nutrition/Malnutrition Findings: Nutrition Notes Start: 07/17/19 09:30 Freq: Status: Active Protocol: Document 07/19/19 10:09 JAE (Rec: 07/19/19 10:13 [id number] [id number]) Co-Sign 07/19/19 10:09 LP Nutrition Notes Initial or Follow up Reassessment Current Diagnosis CKD (stage V CKD),COPD, Coronary Artery Disease,Heart Failure,Hyperlipidemia Other Pertinent Diagnosis On HD, afib, pulmonary edema Current Diet Renal Labs/Tests K 5.1 BUN 40 Cr 4.8 Pertinent Medications Lipitor Height 5 ft 9 in Weight 56.2 kg [place] Body Weight (kg) 72.72 BMI 18.3 Weight Status Underweight Subjective/Other Information F/U for PO intakes. Pt stated his appetite is fair. Pt stated eating about 50% of meals yesterday. Pt didn't eat breakfast this morning due to HD and it would make him nauseaous. Pt stated he would eat it later. Percent of energy/protein needs met: 56%/58% Burn Absent Trauma Absent GI Symptoms None Current % PO Fair (50-74%) Minimum of two criteria Yes Interpretation of Weight Loss (severe) >7.5% in 3 months Muscle Mass Mild Depletion (non-severe) #1 Nutrition Diagnosis Malnutrition Diagnosis Progress(for reassessment Continues documentation) Is patient on ventilator? No Is Patient Ambulatory and/or Out of Bed Yes REE-([place] [place]-ambulatory/OOB) [ 1699.594 [id number]] Kcal/Kg value to use for calculation 34 Approximate Energy Requirements Using 1911 kcal/Kg Calculation Used for Recommendations Kcal/kg Additional Notes Protein: 67g (>1.2g/kg) Fluid: 1680-5108 ml or per MD Nutrition Intervention Change Diet Order: Continue current Goal #1 Meet at least 80% of energy and protein needs via PO intakes Goal #2 Wt gain/maintenance Anticipated Discharge Needs: Renal diet Follow-Up By: 07/23/19 Additional Comments F/U for PO intakes
[2019-07-19] MEDS: amLODIPine 10 MG TAB PO SCH (15:07)
[2019-07-19] MEDS: METOPROLOL TARTRATE 25 MG TAB PO SCH ×2 (15:08→21:17)
[2019-07-19] MEDS: EMLA CREAM 5 GM TP SCH (15:09)
[2019-07-19] MEDS: oxyCODONE 5 MG TAB PO PRN (15:09)
[2019-07-20] MEDS: diphenhydrAMINE 50 MG/ML VIAL IV PRN ×4 (00:21→21:43)
[2019-07-20] MEDS: oxyCODONE 5 MG TAB PO PRN ×3 (05:54→21:42)
[2019-07-20] MEDS: amLODIPine 10 MG TAB PO SCH (10:09)
[2019-07-20] MEDS: METOPROLOL TARTRATE 25 MG TAB PO SCH ×2 (10:10→21:44)
--- NOTE | 2019-07-20 10:12 | Progress Note ---
Assessment and Plan 1. chronic combined systolic and diastolic Heart failure 2. Dilated Nonischemic Cardiomyopathy 3. ESRD 4. Essential Hypertension. Plan. Continue conservative cardiac management. Subjective Date of service: 07/20/19 Principal diagnosis: Volume overload Interval history: No cardiac complains Objective Vital Signs Temp Pulse Resp BP Pulse Ox 07/20/19 08:07 98.8 F 111 H 18 141/95 96 07/20/19 02:13 99.0 F 87 18 127/87 97 07/19/19 19:44 98.8 F 104 H 18 105/76 95 07/19/19 15:09 18 07/19/19 15:08 117 H 137/96 07/19/19 15:07 117 H 137/96 07/19/19 14:54 98.1 F 117 H 18 137/96 94 07/19/19 13:45 98.7 F 103 H 18 128/92 07/19/19 13:15 112 H 129/89 07/19/19 13:00 112 H 129/86 07/19/19 12:45 112 H 130/72 07/19/19 12:30 110 H 132/79 07/19/19 12:15 112 H 121/89 07/19/19 12:00 109 H 128/87 07/19/19 11:45 111 H 123/92 07/19/19 11:30 111 H 127/86 07/19/19 11:15 112 H 121/82 07/19/19 11:00 113 H 126/87 07/19/19 10:45 117 H 124/90 07/19/19 10:30 113 H 123/88 07/19/19 10:15 98.7 F 113 H 20 129/90 - Physical Examination General: No Apparent Distress HEENT: Positive: PERRL Neck: Positive: trachea midline Cardiac: Positive: Regular Rate, S1/S2, PMI, Laterally Displaced. Negative: S3, S4 Lungs: Positive: Normal Exam, No Wheeze, Rales, Rhonchi Neuro: Positive: Grossly Intact Abdomen: Positive: Soft Extremities: Present: +1 Edema - Imaging and Cardiology EKG: report reviewed (sinus tachycardia; normal STs except for flipped T waves in the lateral leads) - EKG Sinus rhythms and dysrhythmias: sinus rhythm
--- NOTE | 2019-07-20 10:27 | Progress Note ---
Assessment and Plan Assessment and plan: End stage renal disease on dialysis -Monday dialysis -Needs Dialysis placement -traffic manager involved Acute hyperkalemia -Resolved Acute on chronic systolic heart failure -Strict I/O, daily weight -monitor uop q shift -afterload reduction -blood pressure control Acidosis -supportive care, -repeat labs in AM HTN (hypertension) -Cont antihypertensives and adjust meds as necessary Diarrhea -Since resolved in the ER -Antidiarrheal PRN SIRS without acute organ dysfunction. Resolved. A-fib -EKG shows Sinus rhythm -Rate control with home meds once reconciled Anemia -due to chronic kidney disease Moderate protein calorie malnutrition. Nutritional support. DVT prophylaxis -SCDs bilaterally - Heparin and GI prophylaxis Disposition: Patient medically stable for discharge but awaiting outpatient dialysis placement History Interval history: Patient denies chest pain or shortness of breath, No new complaints Hospitalist Physical - Physical exam Narrative exam: GEN: Not in acute distress, lying in bed, malnourished HEENT: Normocephalic, atraumatic, Neck: supple, No JVD Lungs: Clear to auscultation bilaterally, no wheeze, heart;S1 and S2 reg, no murmurs Abd:soft, non tender, non distended, normal bowel sounds Ext: No edema, no clubbing, no cyanosis Neuro: AAO X 3, no focal neurological signs - Constitutional Vitals: Temp Pulse Resp BP Pulse Ox 98.8 F 111 H 18 141/95 96 07/20/19 08:07 07/20/19 08:07 07/20/19 08:07 07/20/19 08:07 07/20/19 08:07 General appearance: Present: no acute distress ROGER score - Roger Score Age > 65: (1) Yes Aspirin use within the Past 7 Days: (1) Yes 3 or more CAD Risk Factors: (1) Yes 2 or more Angina events in past 24 hrs: (1) Yes Known CAD with more than 50% Stenosis: (0) No Elevated Cardiac Markers: (1) Yes ST Deviation Greater than 0.5mm: (0) No ROGER Score: 5 Results - Labs CBC & Chem 7: 07/19/19 04:04 07/19/19 04:04 Labs: Laboratory Last Values WBC 3.7 K/mm3 (4.5-11.0) L 07/19/19 04:04 RBC 2.37 M/mm3 (3.65-5.03) L 07/19/19 04:04 Hgb 7.9 gm/dl (11.8-15.2) L 07/19/19 04:04 Hct 24.2 % (35.5-45.6) L 07/19/19 04:04 MCV 102 fl (84-94) H 07/19/19 04:04 MCH 33 pg (28-32) H 07/19/19 04:04 MCHC 33 % (32-34) 07/19/19 04:04 RDW 19.5 % (13.2-15.2) H 07/19/19 04:04 Plt Count 109 K/mm3 (140-440) L 07/19/19 04:04 Lymph % (Auto) 20.8 % (13.4-35.0) 07/15/19 08:06 [place] % (Auto) Pressure Supervisor 07/19/19 04:04 Eos % (Auto) 2.5 % (0.0-4.3) 07/15/19 08:06 Baso % (Auto) 1.0 % (0.0-1.8) 07/15/19 08:06 Lymph # 0.7 K/mm3 (1.2-5.4) L 07/15/19 08:06 [place] # 0.5 K/mm3 (0.0-0.8) 07/15/19 08:06 Eos # 0.1 K/mm3 (0.0-0.4) 07/15/19 08:06 Baso # 0.0 K/mm3 (0.0-0.1) 07/15/19 08:06 Add Manual Diff Complete 07/19/19 04:04 Total Counted 100 07/19/19 04:04 Seg Neutrophils % 62.1 % (40.0-70.0) 07/15/19 08:06 Seg Neuts % (Manual) 52.0 % (40.0-70.0) 07/19/19 04:04 Band Neutrophils % 0 % 07/19/19 04:04 Lymphocytes % (Manual) 35.0 % (13.4-35.0) 07/19/19 04:04 Reactive Lymphs % (Man) 0 % 07/19/19 04:04 Monocytes % (Manual) 9.0 % (0.0-7.3) H 07/19/19 04:04 Eosinophils % (Manual) 4.0 % (0.0-4.3) 07/19/19 04:04 Basophils % (Manual) 0 % (0.0-1.8) 07/19/19 04:04 Metamyelocytes % 0 % 07/19/19 04:04 Myelocytes % 0 % 07/19/19 04:04 Promyelocytes % 0 % 07/19/19 04:04 Blast Cells % 0 % 07/19/19 04:04 Nucleated RBC % Not Reportable 07/19/19 04:04 Seg Neutrophils # 2.1 K/mm3 (1.8-7.7) 07/15/19 08:06 Seg Neutrophils # Man 1.9 K/mm3 (1.8-7.7) 07/19/19 04:04 Band Neutrophils # 0.0 K/mm3 07/19/19 04:04 Lymphocytes # (Manual) 1.3 K/mm3 (1.2-5.4) 07/19/19 04:04 Abs React Lymphs (Man) 0.0 K/mm3 07/19/19 04:04 Monocytes # (Manual) 0.3 K/mm3 (0.0-0.8) 07/19/19 04:04 Eosinophils # (Manual) 0.1 K/mm3 (0.0-0.4) 07/19/19 04:04 Basophils # (Manual) 0.0 K/mm3 (0.0-0.1) 07/19/19 04:04 Metamyelocytes # 0.0 K/mm3 07/19/19 04:04 Myelocytes # 0.0 K/mm3 07/19/19 04:04 Promyelocytes # 0.0 K/mm3 07/19/19 04:04 Blast Cells # 0.0 K/mm3 07/19/19 04:04 WBC Morphology Not Reportable 07/19/19 04:04 Hypersegmented Neuts Not Reportable 07/19/19 04:04 Hyposegmented Neuts Not Reportable 07/19/19 04:04 Hypogranular Neuts Not Reportable 07/19/19 04:04 Smudge Cells Not Reportable 07/19/19 04:04 Toxic Granulation Not Reportable 07/19/19 04:04 Toxic Vacuolation Not Reportable 07/19/19 04:04 Dohle Bodies Not Reportable 07/19/19 04:04 Pelger-Huet Anomaly Not Reportable 07/19/19 04:04 Gertrude Rods Not Reportable 07/19/19 04:04 Platelet Estimate Consistent w auto 07/19/19 04:04 Clumped Platelets Not Reportable 07/19/19 04:04 Plt Clumps, EDTA Not Reportable 07/19/19 04:04 Large Platelets Not Reportable 07/19/19 04:04 Giant Platelets Not Reportable 07/19/19 04:04 Platelet Satelliting Not Reportable 07/19/19 04:04 Plt Morphology Comment Not Reportable 07/19/19 04:04 RBC Morphology Not Reportable 07/19/19 04:04 Dimorphic RBCs Not Reportable 07/19/19 04:04 Polychromasia Not Reportable 07/19/19 04:04 Hypochromasia Not Reportable 07/19/19 04:04 Poikilocytosis Not Reportable 07/19/19 04:04 Anisocytosis Not Reportable 07/19/19 04:04 Microcytosis Not Reportable 07/19/19 04:04 Macrocytosis Not Reportable 07/19/19 04:04 Spherocytes Not Reportable 07/19/19 04:04 Pappenheimer Bodies Not Reportable 07/19/19 04:04 Sickle Cells Not Reportable 07/19/19 04:04 Target Cells Not Reportable 07/19/19 04:04 Tear Drop Cells Few 07/19/19 04:04 Ovalocytes Few 07/19/19 04:04 Helmet Cells Not Reportable 07/19/19 04:04 Merc[place] Bodies Not Reportable 07/19/19 04:04 Blossom Rings Not Reportable 07/19/19 04:04 Priya Cells Few 07/19/19 04:04 Bite Cells Not Reportable 07/19/19 04:04 Crenated Cell Not Reportable 07/19/19 04:04 Elliptocytes Not Reportable 07/19/19 04:04 Acanthocytes (Spur) Not Reportable 07/19/19 04:04 Rouleaux Not Reportable 07/19/19 04:04 Hemoglobin C Crystals Not Reportable 07/19/19 04:04 Schistocytes Few 07/19/19 04:04 Malaria parasites Not Reportable 07/19/19 04:04 Jacob Bodies Not Reportable 07/19/19 04:04 Hem Pathologist Commnt No 07/19/19 04:04 Sodium 132 mmol/L (137-145) L 07/19/19 04:04 Potassium 5.1 mmol/L (3.6-5.0) H 07/19/19 04:04 Chloride 93.6 mmol/L (98-107) L 07/19/19 04:04 Carbon Dioxide 26 mmol/L (22-30) 07/19/19 04:04 Anion Gap 18 mmol/L 07/19/19 04:04 BUN 40 mg/dL (9-20) H 07/19/19 04:04 Creatinine 4.8 mg/dL (0.8-1.5) H 07/19/19 04:04 Estimated GFR 15 ml/min 07/19/19 04:04 BUN/Creatinine Ratio 8 % 07/19/19 04:04 Glucose 104 mg/dL (75-100) H 07/19/19 04:04 POC Glucose 199 (70-105) H 07/19/19 17:03 Calcium 8.5 mg/dL (8.4-10.2) 07/19/19 04:04 Magnesium 1.60 mg/dL (1.7-2.3) L 07/13/19 02:08 Total Bilirubin 0.50 mg/dL (0.1-1.2) 07/09/19 22:47 AST 55 units/L (5-40) H 07/09/19 22:47 ALT 36 units/L (7-56) 07/09/19 22:47 Alkaline Phosphatase 170 units/L (35-129) H 07/09/19 22:47 Total Protein 6.4 g/dL (6.3-8.2) 07/09/19 22:47 Albumin 2.6 g/dL (3.9-5) L 07/09/19 22:47 Albumin/Globulin Ratio 0.7 % 07/09/19 22:47 Active Medications - Current Medications Current Medications: Generic Name Dose Route Start Last Admin Trade Name Freq PRN Reason Stop Dose Admin Acetaminophen 650 mg 07/10/19 02:08 Tylenol PO Q4H PRN Pain MILD(1-3)/Fever >100.5/DOUGLAS Amlodipine Besylate 20 mg 07/10/19 10:00 07/20/19 10:09 Amlodipine PO 20 mg DAILY BEAN Administration Atorvastatin Calcium 40 mg 07/10/19 22:00 07/19/19 21:17 Lipitor PO 40 mg QHS BEAN Administration Diphenhydramine HCl 25 mg 07/11/19 12:03 07/20/19 05:54 Benadryl IV 25 mg Q6H PRN Administration Itching Epoetin Prashant 10,000 unit 07/10/19 02:11 07/17/19 13:00 Procrit SUB-Q 10,000 unit KATERYNA PRN Administration hemodialysis Heparin Sodium (Porcine) 1,000 unit 07/10/19 02:08 Heparin 10,000 Units/10 Ml IV KATERYNA PRN hemodialysis Sodium Chloride 100 mls @ 999 mls/hr 07/10/19 08:00 Nacl 0.9% IV KATERYNA PRN Hypotension Lidocaine/Prilocaine 1 applic 07/19/19 10:00 07/19/19 15:09 Emla TP 1 applic MoWeFr BEAN Administration Metoprolol Tartrate 12.5 mg 07/10/19 10:00 07/20/19 10:10 Metoprolol PO 12.5 mg BID BEAN Administration Ondansetron HCl 4 mg 07/10/19 02:08 Zofran IV Q8H PRN Nausea And Vomiting Oxycodone HCl 10 mg 07/10/19 02:19 07/20/19 05:54 Roxicodone PO 10 mg Q6H PRN Administration Pain, Moderate (4-6) Sodium Chloride 10 ml 07/10/19 10:00 07/20/19 10:18 Sodium Chloride Flush Syringe 10 Ml IV 10 ml BID BEAN Administration Sodium Chloride 10 ml 07/10/19 02:08 Sodium Chloride Flush Syringe 10 Ml IV PRN PRN LINE FLUSH Nutrition/Malnutrition Assess - Dietary Evaluation Nutrition/Malnutrition Findings: Nutrition Notes Start: 07/17/19 09:30 Freq: Status: Active Protocol: Document 07/19/19 10:09 JAE (Rec: 07/19/19 10:13 JAE [id number]) Co-Sign 07/19/19 10:09 LP Nutrition Notes Initial or Follow up Reassessment Current Diagnosis CKD (stage V CKD),COPD, Coronary Artery Disease,Heart Failure,Hyperlipidemia Other Pertinent Diagnosis On HD, afib, pulmonary edema Current Diet Renal Labs/Tests K 5.1 BUN 40 Cr 4.8 Pertinent Medications Lipitor Height 5 ft 9 in Weight 56.2 kg [place] Body Weight (kg) 72.72 BMI 18.3 Weight Status Underweight Subjective/Other Information F/U for PO intakes. Pt stated his appetite is fair. Pt stated eating about 50% of meals yesterday. Pt didn't eat breakfast this morning due to HD and it would make him nauseaous. Pt stated he would eat it later. Percent of energy/protein needs met: 56%/58% Burn Absent Trauma Absent GI Symptoms None Current % PO Fair (50-74%) Minimum of two criteria Yes Interpretation of Weight Loss (severe) >7.5% in 3 months Muscle Mass Mild Depletion (non-severe) #1 Nutrition Diagnosis Malnutrition Diagnosis Progress(for reassessment Continues documentation) Is patient on ventilator? No Is Patient Ambulatory and/or Out of Bed Yes REE-([place]-ambulatory/OOB) [ 1699.594 [id number].[email or web address]] Kcal/Kg value to use for calculation 34 Approximate Energy Requirements Using 1911 kcal/Kg Calculation Used for Recommendations Kcal/kg Additional Notes Protein: 67g (>1.2g/kg) Fluid: 5694-6722 ml or per MD Nutrition Intervention Change Diet Order: Continue current Goal #1 Meet at least 80% of energy and protein needs via PO intakes Goal #2 Wt gain/maintenance Anticipated Discharge Needs: Renal diet Follow-Up By: 07/23/19 Additional Comments F/U for PO intakes
--- NOTE | 2019-07-20 15:01 | Progress Note ---
Assessment and Plan 1. ESRD: Patient was admitted with hyperkalemia. Continue hemodialysis three times a week, MWF schedule. Hemodialysis: 07/10, 07/12, 07/15, 07/17, 07/19. 2. FEN: Hyperkalemia, improving with HD. Renal diet. Monitor. 3. Diarrhea: Resolved. 4. Chronic pleural effusion. 5. Chronic A.fib. 6. HTN. 7. Anemia: Epogen with HD. 8. PAD. Await outpatient HD chair. Examination: General appearance: well-developed, appears stated age, not in distress HEENT: ATNC, ELENI, hearing intact, vision intact Neck: neck supple, trachea midline Respiratory: Clear to Auscultation Heart: S1S2, irregular, no murmur Gastrointestinal: soft, normoactive bowel sounds, NT, ND Integumentary: no rash, warm and dry Neurologic: no focal deficit, no asterixis, alert and oriented x3 Ext: L forearm amputation, no edema Hemodialysis access: R IJ tunnel catheter, R arm AVF Subjective Date of service: 07/20/19 Principal diagnosis: Volume overload Interval history: Patient was seen and examined at bedside. No new complaints. Objective - Vital Signs Vital signs: Vital Signs - 12hr 07/20/19 07/20/19 07/20/19 08:07 10:00 12:41 Temperature 98.8 F Pulse Rate 111 H 108 H Respiratory 18 18 Rate Blood Pressure 141/95 O2 Sat by Pulse 96 96 97 Oximetry - Lab 07/19/19 04:04 07/19/19 04:04 Most recent lab results Calcium 8.5 mg/dL (8.4-10.2) 07/19/19 04:04 Magnesium 1.60 mg/dL (1.7-2.3) L 07/13/19 02:08 Medications & Allergies - Medications Allergies/Adverse Reactions: Allergies aspirin Allergy (Verified 02/20/19 22:06) Unknown stomach cramps pork derived (porcine) Allergy (Verified 02/20/19 22:06) Rash venom-honey bee [bee venom (honey bee)] Allergy (Verified 02/20/19 22:06) Anaphylaxis Pork/Porcine Containing Products Adverse Reaction (Severe, Verified 02/20/19 22:06) Nausea,VOMITING Home Medications: Home Medications Medication Instructions Recorded Confirmed Last Taken Type AtorvaSTATin [Lipitor] 40 mg PO QHS #30 05/22/19 07/09/19 Unknown Rx Epoetin Prashant 10,000 Unit [Procrit] 10,000 unit SUB-Q KATERYNA PRN vial 05/22/19 07/09/19 Unknown Rx Metoprolol [Lopressor TAB] 12.5 mg PO BID #60 tablet 05/22/19 07/09/19 Unknown Rx Oxycodone HCl [oxyCODONE] 10 mg PO Q6H PRN #20 05/22/19 07/09/19 Unknown Rx amLODIPine 20 mg PO DAILY #30 05/22/19 07/09/19 Unknown Rx Acetaminophen [Acetaminophen TAB] 1 tab PO Q4H PRN #15 tablet 07/08/19 07/09/19 Unknown Rx Active Medications: Generic Name Dose Route Start Last Admin Trade Name Freq PRN Reason Stop Dose Admin Acetaminophen 650 mg 07/10/19 02:08 Tylenol PO Q4H PRN Pain MILD(1-3)/Fever >100.5/DOUGLAS Amlodipine Besylate 20 mg 07/10/19 10:00 07/20/19 10:09 Amlodipine PO 20 mg DAILY BEAN Administration Atorvastatin Calcium 40 mg 07/10/19 22:00 07/19/19 21:17 Lipitor PO 40 mg QHS BEAN Administration Diphenhydramine HCl 25 mg 07/11/19 12:03 07/20/19 14:13 Benadryl IV 25 mg Q6H PRN Administration Itching Epoetin Prashant 10,000 unit 07/10/19 02:11 07/17/19 13:00 Procrit SUB-Q 10,000 unit KATERYNA PRN Administration hemodialysis Heparin Sodium (Porcine) 1,000 unit 07/10/19 02:08 Heparin 10,000 Units/10 Ml IV KATERYNA PRN hemodialysis Sodium Chloride 100 mls @ 999 mls/hr 07/10/19 08:00 Nacl 0.9% IV KATERYNA PRN Hypotension Lidocaine/Prilocaine 1 applic 07/19/19 10:00 07/19/19 15:09 Emla TP 1 applic MoWeFr BEAN Administration Metoprolol Tartrate 12.5 mg 07/10/19 10:00 07/20/19 10:10 Metoprolol PO 12.5 mg BID BEAN Administration Ondansetron HCl 4 mg 07/10/19 02:08 Zofran IV Q8H PRN Nausea And Vomiting Oxycodone HCl 10 mg 07/10/19 02:19 07/20/19 14:13 Roxicodone PO 10 mg Q6H PRN Administration Pain, Moderate (4-6) Sodium Chloride 10 ml 07/10/19 10:00 07/20/19 10:18 Sodium Chloride Flush Syringe 10 Ml IV 10 ml BID BEAN Administration Sodium Chloride 10 ml 07/10/19 02:08 Sodium Chloride Flush Syringe 10 Ml IV PRN PRN LINE FLUSH
[2019-07-21] MEDS: oxyCODONE 5 MG TAB PO PRN ×3 (04:24→17:01)
[2019-07-21] MEDS: diphenhydrAMINE 50 MG/ML VIAL IV PRN ×4 (04:25→23:08)
[2019-07-21] MEDS: amLODIPine 10 MG TAB PO SCH (10:04)
[2019-07-21] MEDS: METOPROLOL TARTRATE 25 MG TAB PO SCH ×2 (10:05→22:56)
--- NOTE | 2019-07-21 10:40 | Progress Note ---
Assessment and Plan 1. chronic combined systolic and diastolic Heart failure 2. Dilated Nonischemic Cardiomyopathy 3. ESRD 4. Essential Hypertension. Plan. Continue conservative cardiac management. Subjective Date of service: 07/21/19 Principal diagnosis: Volume overload Interval history: No cardiac complains Objective Vital Signs Temp Pulse Resp BP Pulse Ox 07/21/19 10:00 102 H 20 98 07/21/19 07:55 97.5 F L 113 H 118/83 98 07/21/19 02:53 113 H 95 07/21/19 02:50 98.3 F 20 119/89 07/20/19 22:00 109 H 20 98 07/20/19 21:44 103 H 126/93 07/20/19 21:39 111 H 126/93 96 07/20/19 20:09 109 H 98 07/20/19 20:01 98.7 F 20 113/81 07/20/19 19:45 99 07/20/19 13:17 97.8 F 116 H 18 135/93 100 07/20/19 12:41 97 - Physical Examination General: No Apparent Distress HEENT: Positive: PERRL Neck: Positive: trachea midline Cardiac: Positive: Regular Rate, S1/S2, PMI, Laterally Displaced Lungs: Positive: clear to auscultation, No Wheeze, Rales, Rhonchi Neuro: Positive: Grossly Intact Abdomen: Positive: Soft Extremities: Present: +1 Edema - Labs and Meds Comprehensive Metabolic Panel 07/21/19 Range/Units 08:34 Sodium 135 L (137-145) mmol/L Potassium 4.4 (3.6-5.0) mmol/L Chloride 95.7 L (98-107) mmol/L Carbon Dioxide 21 L (22-30) mmol/L BUN 33 H (9-20) mg/dL Creatinine 4.5 H (0.8-1.5) mg/dL Glucose 131 H (75-100) mg/dL Calcium 9.0 (8.4-10.2) mg/dL - Imaging and Cardiology EKG: report reviewed (sinus tachycardia; normal STs except for flipped T waves in the lateral leads) - EKG Sinus rhythms and dysrhythmias: sinus rhythm
--- NOTE | 2019-07-21 11:40 | Progress Note ---
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 Resolved. A-fib -EKG shows Sinus rhythm -Rate control with home meds once reconciled Anemia -due to chronic kidney disease Moderate protein calorie malnutrition. Nutritional support. DVT prophylaxis -SCDs bilaterally - Heparin and GI prophylaxis Disposition: Patient medically stable for discharge but awaiting outpatient dialysis placement History Interval history: Patient denies chest pain or shortness of breath, No new complaints Hospitalist Physical - Physical exam Narrative exam: GEN: Not in acute distress, lying in bed, malnourished HEENT: Normocephalic, atraumatic, Neck: supple, No JVD Lungs: Clear to auscultation bilaterally, no wheeze, heart;S1 and S2 reg, no murmurs Abd:soft, non tender, non distended, normal bowel sounds Ext: No edema, no clubbing, no cyanosis Neuro: AAO X 3, no focal neurological signs - Constitutional Vitals: Temp Pulse Resp BP Pulse Ox 97.5 F L 102 H 20 118/83 98 07/21/19 07:55 07/21/19 10:00 07/21/19 10:00 07/21/19 07:55 07/21/19 10:00 General appearance: Present: no acute distress ROGER score - Roger Score Age > 65: (1) Yes Aspirin use within the Past 7 Days: (1) Yes 3 or more CAD Risk Factors: (1) Yes 2 or more Angina events in past 24 hrs: (1) Yes Known CAD with more than 50% Stenosis: (0) No Elevated Cardiac Markers: (1) Yes ST Deviation Greater than 0.5mm: (0) No ROGER Score: 5 Results - Labs CBC & Chem 7: 07/19/19 04:04 07/21/19 08:34 Labs: Laboratory Last Values WBC 3.7 K/mm3 (4.5-11.0) L 07/19/19 04:04 RBC 2.37 M/mm3 (3.65-5.03) L 07/19/19 04:04 Hgb 7.9 gm/dl (11.8-15.2) L 07/19/19 04:04 Hct 24.2 % (35.5-45.6) L 07/19/19 04:04 MCV 102 fl (84-94) H 07/19/19 04:04 MCH 33 pg (28-32) H 07/19/19 04:04 MCHC 33 % (32-34) 07/19/19 04:04 RDW 19.5 % (13.2-15.2) H 07/19/19 04:04 Plt Count 109 K/mm3 (140-440) L 07/19/19 04:04 Lymph % (Auto) 20.8 % (13.4-35.0) 07/15/19 08:06 [place] % (Auto) Charging Plug Placer 07/19/19 04:04 Eos % (Auto) 2.5 % (0.0-4.3) 07/15/19 08:06 Baso % (Auto) 1.0 % (0.0-1.8) 07/15/19 08:06 Lymph # 0.7 K/mm3 (1.2-5.4) L 07/15/19 08:06 [place] # 0.5 K/mm3 (0.0-0.8) 07/15/19 08:06 Eos # 0.1 K/mm3 (0.0-0.4) 07/15/19 08:06 Baso # 0.0 K/mm3 (0.0-0.1) 07/15/19 08:06 Add Manual Diff Complete 07/19/19 04:04 Total Counted 100 07/19/19 04:04 Seg Neutrophils % 62.1 % (40.0-70.0) 07/15/19 08:06 Seg Neuts % (Manual) 52.0 % (40.0-70.0) 07/19/19 04:04 Band Neutrophils % 0 % 07/19/19 04:04 Lymphocytes % (Manual) 35.0 % (13.4-35.0) 07/19/19 04:04 Reactive Lymphs % (Man) 0 % 07/19/19 04:04 Monocytes % (Manual) 9.0 % (0.0-7.3) H 07/19/19 04:04 Eosinophils % (Manual) 4.0 % (0.0-4.3) 07/19/19 04:04 Basophils % (Manual) 0 % (0.0-1.8) 07/19/19 04:04 Metamyelocytes % 0 % 07/19/19 04:04 Myelocytes % 0 % 07/19/19 04:04 Promyelocytes % 0 % 07/19/19 04:04 Blast Cells % 0 % 07/19/19 04:04 Nucleated RBC % Not Reportable 07/19/19 04:04 Seg Neutrophils # 2.1 K/mm3 (1.8-7.7) 07/15/19 08:06 Seg Neutrophils # Man 1.9 K/mm3 (1.8-7.7) 07/19/19 04:04 Band Neutrophils # 0.0 K/mm3 07/19/19 04:04 Lymphocytes # (Manual) 1.3 K/mm3 (1.2-5.4) 07/19/19 04:04 Abs React Lymphs (Man) 0.0 K/mm3 07/19/19 04:04 Monocytes # (Manual) 0.3 K/mm3 (0.0-0.8) 07/19/19 04:04 Eosinophils # (Manual) 0.1 K/mm3 (0.0-0.4) 07/19/19 04:04 Basophils # (Manual) 0.0 K/mm3 (0.0-0.1) 07/19/19 04:04 Metamyelocytes # 0.0 K/mm3 07/19/19 04:04 Myelocytes # 0.0 K/mm3 07/19/19 04:04 Promyelocytes # 0.0 K/mm3 07/19/19 04:04 Blast Cells # 0.0 K/mm3 07/19/19 04:04 WBC Morphology Not Reportable 07/19/19 04:04 Hypersegmented Neuts Not Reportable 07/19/19 04:04 Hyposegmented Neuts Not Reportable 07/19/19 04:04 Hypogranular Neuts Not Reportable 07/19/19 04:04 Smudge Cells Not Reportable 07/19/19 04:04 Toxic Granulation Not Reportable 07/19/19 04:04 Toxic Vacuolation Not Reportable 07/19/19 04:04 Dohle Bodies Not Reportable 07/19/19 04:04 Pelger-Huet Anomaly Not Reportable 07/19/19 04:04 Gertrude Rods Not Reportable 07/19/19 04:04 Platelet Estimate Consistent w auto 07/19/19 04:04 Clumped Platelets Not Reportable 07/19/19 04:04 Plt Clumps, EDTA Not Reportable 07/19/19 04:04 Large Platelets Not Reportable 07/19/19 04:04 Giant Platelets Not Reportable 07/19/19 04:04 Platelet Satelliting Not Reportable 07/19/19 04:04 Plt Morphology Comment Not Reportable 07/19/19 04:04 RBC Morphology Not Reportable 07/19/19 04:04 Dimorphic RBCs Not Reportable 07/19/19 04:04 Polychromasia Not Reportable 07/19/19 04:04 Hypochromasia Not Reportable 07/19/19 04:04 Poikilocytosis Not Reportable 07/19/19 04:04 Anisocytosis Not Reportable 07/19/19 04:04 Microcytosis Not Reportable 07/19/19 04:04 Macrocytosis Not Reportable 07/19/19 04:04 Spherocytes Not Reportable 07/19/19 04:04 Pappenheimer Bodies Not Reportable 07/19/19 04:04 Sickle Cells Not Reportable 07/19/19 04:04 Target Cells Not Reportable 07/19/19 04:04 Tear Drop Cells Few 07/19/19 04:04 Ovalocytes Few 07/19/19 04:04 Helmet Cells Not Reportable 07/19/19 04:04 Mercado-Dupont Bodies Not Reportable 07/19/19 04:04 Icard Rings Not Reportable 07/19/19 04:04 Philip Cells Few 07/19/19 04:04 Bite Cells Not Reportable 07/19/19 04:04 Crenated Cell Not Reportable 07/19/19 04:04 Elliptocytes Not Reportable 07/19/19 04:04 Acanthocytes (Spur) Not Reportable 07/19/19 04:04 Rouleaux Not Reportable 07/19/19 04:04 Hemoglobin C Crystals Not Reportable 07/19/19 04:04 Schistocytes Few 07/19/19 04:04 Malaria parasites Not Reportable 07/19/19 04:04 Jacob Bodies Not Reportable 07/19/19 04:04 Hem Pathologist Commnt No 07/19/19 04:04 Sodium 135 mmol/L (137-145) L 07/21/19 08:34 Potassium 4.4 mmol/L (3.6-5.0) 07/21/19 08:34 Chloride 95.7 mmol/L (98-107) L 07/21/19 08:34 Carbon Dioxide 21 mmol/L (22-30) L 07/21/19 08:34 Anion Gap 23 mmol/L 07/21/19 08:34 BUN 33 mg/dL (9-20) H 07/21/19 08:34 Creatinine 4.5 mg/dL (0.8-1.5) H 07/21/19 08:34 Estimated GFR 16 ml/min 07/21/19 08:34 BUN/Creatinine Ratio 7 % 07/21/19 08:34 Glucose 131 mg/dL (75-100) H 07/21/19 08:34 POC Glucose 199 (70-105) H 07/19/19 17:03 Calcium 9.0 mg/dL (8.4-10.2) 07/21/19 08:34 Magnesium 1.60 mg/dL (1.7-2.3) L 07/13/19 02:08 Total Bilirubin 0.50 mg/dL (0.1-1.2) 07/09/19 22:47 AST 55 units/L (5-40) H 07/09/19 22:47 ALT 36 units/L (7-56) 07/09/19 22:47 Alkaline Phosphatase 170 units/L (35-129) H 07/09/19 22:47 Total Protein 6.4 g/dL (6.3-8.2) 07/09/19 22:47 Albumin 2.6 g/dL (3.9-5) L 07/09/19 22:47 Albumin/Globulin Ratio 0.7 % 07/09/19 22:47 Active Medications - Current Medications Current Medications: Generic Name Dose Route Start Last Admin Trade Name Freq PRN Reason Stop Dose Admin Acetaminophen 650 mg 07/10/19 02:08 Tylenol PO Q4H PRN Pain MILD(1-3)/Fever >100.5/DOUGLAS Amlodipine Besylate 20 mg 07/10/19 10:00 07/21/19 10:04 Amlodipine PO 20 mg DAILY BEAN Administration Atorvastatin Calcium 40 mg 07/10/19 22:00 07/20/19 21:44 Lipitor PO 40 mg QHS BEAN Administration Diphenhydramine HCl 25 mg 07/11/19 12:03 07/21/19 10:06 Benadryl IV 25 mg Q6H PRN Administration Itching Epoetin Prashant 10,000 unit 07/10/19 02:11 07/17/19 13:00 Procrit SUB-Q 10,000 unit KATERYNA PRN Administration hemodialysis Heparin Sodium (Porcine) 1,000 unit 07/10/19 02:08 Heparin 10,000 Units/10 Ml IV KATERYNA PRN hemodialysis Sodium Chloride 100 mls @ 999 mls/hr 07/10/19 08:00 Nacl 0.9% IV KATERYNA PRN Hypotension Lidocaine/Prilocaine 1 applic 07/19/19 10:00 07/19/19 15:09 Emla TP 1 applic MoWeFr BEAN Administration Metoprolol Tartrate 12.5 mg 07/10/19 10:00 07/21/19 10:05 Metoprolol PO 12.5 mg BID BEAN Administration Ondansetron HCl 4 mg 07/10/19 02:08 Zofran IV Q8H PRN Nausea And Vomiting Oxycodone HCl 10 mg 07/10/19 02:19 07/21/19 10:05 Roxicodone PO 10 mg Q6H PRN Administration Pain, Moderate (4-6) Sodium Chloride 10 ml 07/10/19 10:00 07/21/19 10:06 Sodium Chloride Flush Syringe 10 Ml IV 10 ml BID BEAN Administration Sodium Chloride 10 ml 07/10/19 02:08 Sodium Chloride Flush Syringe 10 Ml IV PRN PRN LINE FLUSH Nutrition/Malnutrition Assess - Dietary Evaluation Nutrition/Malnutrition Findings: Nutrition Notes Start: 07/17/19 09:30 Freq: Status: Active Protocol: Document 07/19/19 10:09 JAE (Rec: 07/19/19 10:13 [id number] [id number]) Co-Sign 07/19/19 10:09 LP Nutrition Notes Initial or Follow up Reassessment Current Diagnosis CKD (stage V CKD),COPD, Coronary Artery Disease,Heart Failure,Hyperlipidemia Other Pertinent Diagnosis On HD, afib, pulmonary edema Current Diet Renal Labs/Tests K 5.1 BUN 40 Cr 4.8 Pertinent Medications Lipitor Height 5 ft 9 in Weight 56.2 kg [place] Body Weight (kg) 72.72 BMI 18.3 Weight Status Underweight Subjective/Other Information F/U for PO intakes. Pt stated his appetite is fair. Pt stated eating about 50% of meals yesterday. Pt didn't eat breakfast this morning due to HD and it would make him nauseaous. Pt stated he would eat it later. Percent of energy/protein needs met: 56%/58% Burn Absent Trauma Absent GI Symptoms None Current % PO Fair (50-74%) Minimum of two criteria Yes Interpretation of Weight Loss (severe) >7.5% in 3 months Muscle Mass Mild Depletion (non-severe) #1 Nutrition Diagnosis Malnutrition Diagnosis Progress(for reassessment Continues documentation) Is patient on ventilator? No Is Patient Ambulatory and/or Out of Bed Yes REE-([place]-ambulatory/OOB) [ 1699.594 [id number]] Kcal/Kg value to use for calculation 34 Approximate Energy Requirements Using 1911 kcal/Kg Calculation Used for Recommendations Kcal/kg Additional Notes Protein: 67g (>1.2g/kg) Fluid: 1028-3782 ml or per MD Nutrition Intervention Change Diet Order: Continue current Goal #1 Meet at least 80% of energy and protein needs via PO intakes Goal #2 Wt gain/maintenance Anticipated Discharge Needs: Renal diet Follow-Up By: 07/23/19 Additional Comments F/U for PO intakes
--- NOTE | 2019-07-21 13:50 | Progress Note ---
Assessment and Plan 1. ESRD: Patient was admitted with hyperkalemia. Continue hemodialysis three times a week, MWF schedule. Hemodialysis: 07/10, 07/12, 07/15, 07/17, 07/19. 2. FEN: Hyperkalemia, improving with HD, monitor. Renal diet. Monitor. 3. Diarrhea: Resolved. 4. Chronic pleural effusion. 5. Chronic A.fib. 6. HTN. 7. Anemia: Epogen with HD. 8. PAD. Await outpatient HD chair. Examination: General appearance: well-developed, appears stated age, not in distress HEENT: ATNC, ELENI, hearing intact, vision intact Neck: neck supple, trachea midline Respiratory: Clear to Auscultation Heart: S1S2, irregular, no murmur Gastrointestinal: soft, normoactive bowel sounds, NT, ND Integumentary: no rash, warm and dry Neurologic: no focal deficit, no asterixis, alert and oriented x3 Ext: L forearm amputation, no edema Hemodialysis access: R IJ tunnel catheter, R arm AVF Subjective Date of service: 07/21/19 Principal diagnosis: Volume overload Interval history: Patient was seen and examined at bedside. Patient has complaints of nausea but denies emesis. Objective - Vital Signs Vital signs: Vital Signs - 12hr 07/21/19 07/21/19 07/21/19 02:50 02:53 07:55 Temperature 98.3 F 97.5 F L Pulse Rate 113 H 113 H Respiratory 20 Rate Blood Pressure 119/89 118/83 O2 Sat by Pulse 95 98 Oximetry 07/21/19 10:00 Temperature Pulse Rate 102 H Respiratory 20 Rate Blood Pressure O2 Sat by Pulse 98 Oximetry - Lab 07/19/19 04:04 07/21/19 08:34 Most recent lab results Calcium 9.0 mg/dL (8.4-10.2) 07/21/19 08:34 Magnesium 1.60 mg/dL (1.7-2.3) L 07/13/19 02:08 Medications & Allergies - Medications Allergies/Adverse Reactions: Allergies aspirin Allergy (Verified 02/20/19 22:06) Unknown stomach cramps pork derived (porcine) Allergy (Verified 02/20/19 22:06) Rash venom-honey bee [bee venom (honey bee)] Allergy (Verified 02/20/19 22:06) Anaphylaxis Pork/Porcine Containing Products Adverse Reaction (Severe, Verified 02/20/19 22:06) Nausea,VOMITING Home Medications: Home Medications Medication Instructions Recorded Confirmed Last Taken Type AtorvaSTATin [Lipitor] 40 mg PO QHS #30 05/22/19 07/09/19 Unknown Rx Epoetin Prashant 10,000 Unit [Procrit] 10,000 unit SUB-Q KATERYNA PRN vial 05/22/19 07/09/19 Unknown Rx Metoprolol [Lopressor TAB] 12.5 mg PO BID #60 tablet 05/22/19 07/09/19 Unknown Rx Oxycodone HCl [oxyCODONE] 10 mg PO Q6H PRN #20 05/22/19 07/09/19 Unknown Rx amLODIPine 20 mg PO DAILY #30 05/22/19 07/09/19 Unknown Rx Acetaminophen [Acetaminophen TAB] 1 tab PO Q4H PRN #15 tablet 07/08/19 07/09/19 Unknown Rx Active Medications: Generic Name Dose Route Start Last Admin Trade Name Freq PRN Reason Stop Dose Admin Acetaminophen 650 mg 07/10/19 02:08 Tylenol PO Q4H PRN Pain MILD(1-3)/Fever >100.5/DOUGLAS Amlodipine Besylate 20 mg 07/10/19 10:00 07/21/19 10:04 Amlodipine PO 20 mg DAILY BEAN Administration Atorvastatin Calcium 40 mg 07/10/19 22:00 07/20/19 21:44 Lipitor PO 40 mg QHS BEAN Administration Diphenhydramine HCl 25 mg 07/11/19 12:03 07/21/19 10:06 Benadryl IV 25 mg Q6H PRN Administration Itching Epoetin Prashant 10,000 unit 07/10/19 02:11 07/17/19 13:00 Procrit SUB-Q 10,000 unit KATERYNA PRN Administration hemodialysis Heparin Sodium (Porcine) 1,000 unit 07/10/19 02:08 Heparin 10,000 Units/10 Ml IV KATERYNA PRN hemodialysis Sodium Chloride 100 mls @ 999 mls/hr 07/10/19 08:00 Nacl 0.9% IV KATERYNA PRN Hypotension Lidocaine/Prilocaine 1 applic 07/19/19 10:00 07/19/19 15:09 Emla TP 1 applic MoWeFr BEAN Administration Metoprolol Tartrate 12.5 mg 07/10/19 10:00 07/21/19 10:05 Metoprolol PO 12.5 mg BID BEAN Administration Ondansetron HCl 4 mg 07/10/19 02:08 Zofran IV Q8H PRN Nausea And Vomiting Oxycodone HCl 10 mg 07/10/19 02:19 07/21/19 10:05 Roxicodone PO 10 mg Q6H PRN Administration Pain, Moderate (4-6) Sodium Chloride 10 ml 07/10/19 10:00 07/21/19 10:06 Sodium Chloride Flush Syringe 10 Ml IV 10 ml BID BEAN Administration Sodium Chloride 10 ml 07/10/19 02:08 Sodium Chloride Flush Syringe 10 Ml IV PRN PRN LINE FLUSH
[2019-07-22] MEDS: ACETAMINOPHEN 325 MG TAB PO PRN (05:56)
[2019-07-22] MEDS: diphenhydrAMINE 50 MG/ML VIAL IV PRN ×3 (05:57→18:06)
--- NOTE | 2019-07-22 11:22 | Progress Note ---
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 Resolved. A-fib -EKG shows Sinus rhythm -Rate control with home meds once reconciled Anemia -due to chronic kidney disease Moderate protein calorie malnutrition. Nutritional support. DVT prophylaxis -SCDs bilaterally - Heparin and GI prophylaxis Disposition: Patient medically stable for discharge but awaiting outpatient dialysis placement History Interval history: Patient denies chest pain or shortness of breath, No new complaints Hospitalist Physical - Physical exam Narrative exam: GEN: Not in acute distress, lying in bed, malnourished HEENT: Normocephalic, atraumatic, Neck: supple, No JVD Lungs: Clear to auscultation bilaterally, no wheeze, heart;S1 and S2 reg, no murmurs Abd:soft, non tender, non distended, normal bowel sounds Ext: No edema, no clubbing, no cyanosis Neuro: AAO X 3, no focal neurological signs - Constitutional Vitals: Temp Pulse Resp BP Pulse Ox 97.6 F 111 H 20 138/98 100 07/22/19 08:14 07/22/19 08:14 07/22/19 08:14 07/22/19 08:14 07/22/19 08:14 General appearance: Present: no acute distress ROGER score - Roger Score Age > 65: (1) Yes Aspirin use within the Past 7 Days: (1) Yes 3 or more CAD Risk Factors: (1) Yes 2 or more Angina events in past 24 hrs: (1) Yes Known CAD with more than 50% Stenosis: (0) No Elevated Cardiac Markers: (1) Yes ST Deviation Greater than 0.5mm: (0) No ROGER Score: 5 Results - Labs CBC & Chem 7: 07/19/19 04:04 07/21/19 08:34 Labs: Laboratory Last Values WBC 3.7 K/mm3 (4.5-11.0) L 07/19/19 04:04 RBC 2.37 M/mm3 (3.65-5.03) L 07/19/19 04:04 Hgb 7.9 gm/dl (11.8-15.2) L 07/19/19 04:04 Hct 24.2 % (35.5-45.6) L 07/19/19 04:04 MCV 102 fl (84-94) H 07/19/19 04:04 MCH 33 pg (28-32) H 07/19/19 04:04 MCHC 33 % (32-34) 07/19/19 04:04 RDW 19.5 % (13.2-15.2) H 07/19/19 04:04 Plt Count 109 K/mm3 (140-440) L 07/19/19 04:04 Lymph % (Auto) 20.8 % (13.4-35.0) 07/15/19 08:06 Sumner % (Auto) Derrickman Helper 07/19/19 04:04 Eos % (Auto) 2.5 % (0.0-4.3) 07/15/19 08:06 Baso % (Auto) 1.0 % (0.0-1.8) 07/15/19 08:06 Lymph # 0.7 K/mm3 (1.2-5.4) L 07/15/19 08:06 Sumner # 0.5 K/mm3 (0.0-0.8) 07/15/19 08:06 Eos # 0.1 K/mm3 (0.0-0.4) 07/15/19 08:06 Baso # 0.0 K/mm3 (0.0-0.1) 07/15/19 08:06 Add Manual Diff Complete 07/19/19 04:04 Total Counted 100 07/19/19 04:04 Seg Neutrophils % 62.1 % (40.0-70.0) 07/15/19 08:06 Seg Neuts % (Manual) 52.0 % (40.0-70.0) 07/19/19 04:04 Band Neutrophils % 0 % 07/19/19 04:04 Lymphocytes % (Manual) 35.0 % (13.4-35.0) 07/19/19 04:04 Reactive Lymphs % (Man) 0 % 07/19/19 04:04 Monocytes % (Manual) 9.0 % (0.0-7.3) H 07/19/19 04:04 Eosinophils % (Manual) 4.0 % (0.0-4.3) 07/19/19 04:04 Basophils % (Manual) 0 % (0.0-1.8) 07/19/19 04:04 Metamyelocytes % 0 % 07/19/19 04:04 Myelocytes % 0 % 07/19/19 04:04 Promyelocytes % 0 % 07/19/19 04:04 Blast Cells % 0 % 07/19/19 04:04 Nucleated RBC % Not Reportable 07/19/19 04:04 Seg Neutrophils # 2.1 K/mm3 (1.8-7.7) 07/15/19 08:06 Seg Neutrophils # Man 1.9 K/mm3 (1.8-7.7) 07/19/19 04:04 Band Neutrophils # 0.0 K/mm3 07/19/19 04:04 Lymphocytes # (Manual) 1.3 K/mm3 (1.2-5.4) 07/19/19 04:04 Abs React Lymphs (Man) 0.0 K/mm3 07/19/19 04:04 Monocytes # (Manual) 0.3 K/mm3 (0.0-0.8) 07/19/19 04:04 Eosinophils # (Manual) 0.1 K/mm3 (0.0-0.4) 07/19/19 04:04 Basophils # (Manual) 0.0 K/mm3 (0.0-0.1) 07/19/19 04:04 Metamyelocytes # 0.0 K/mm3 07/19/19 04:04 Myelocytes # 0.0 K/mm3 07/19/19 04:04 Promyelocytes # 0.0 K/mm3 07/19/19 04:04 Blast Cells # 0.0 K/mm3 07/19/19 04:04 WBC Morphology Not Reportable 07/19/19 04:04 Hypersegmented Neuts Not Reportable 07/19/19 04:04 Hyposegmented Neuts Not Reportable 07/19/19 04:04 Hypogranular Neuts Not Reportable 07/19/19 04:04 Smudge Cells Not Reportable 07/19/19 04:04 Toxic Granulation Not Reportable 07/19/19 04:04 Toxic Vacuolation Not Reportable 07/19/19 04:04 Dohle Bodies Not Reportable 07/19/19 04:04 Pelger-Huet Anomaly Not Reportable 07/19/19 04:04 Gertrude Rods Not Reportable 07/19/19 04:04 Platelet Estimate Consistent w auto 07/19/19 04:04 Clumped Platelets Not Reportable 07/19/19 04:04 Plt Clumps, EDTA Not Reportable 07/19/19 04:04 Large Platelets Not Reportable 07/19/19 04:04 Giant Platelets Not Reportable 07/19/19 04:04 Platelet Satelliting Not Reportable 07/19/19 04:04 Plt Morphology Comment Not Reportable 07/19/19 04:04 RBC Morphology Not Reportable 07/19/19 04:04 Dimorphic RBCs Not Reportable 07/19/19 04:04 Polychromasia Not Reportable 07/19/19 04:04 Hypochromasia Not Reportable 07/19/19 04:04 Poikilocytosis Not Reportable 07/19/19 04:04 Anisocytosis Not Reportable 07/19/19 04:04 Microcytosis Not Reportable 07/19/19 04:04 Macrocytosis Not Reportable 07/19/19 04:04 Spherocytes Not Reportable 07/19/19 04:04 Pappenheimer Bodies Not Reportable 07/19/19 04:04 Sickle Cells Not Reportable 07/19/19 04:04 Target Cells Not Reportable 07/19/19 04:04 Tear Drop Cells Few 07/19/19 04:04 Ovalocytes Few 07/19/19 04:04 Helmet Cells Not Reportable 07/19/19 04:04 Mercado-[place] Bodies Not Reportable 07/19/19 04:04 Hardin Rings Not Reportable 07/19/19 04:04 Chrisman Cells Few 07/19/19 04:04 Bite Cells Not Reportable 07/19/19 04:04 Crenated Cell Not Reportable 07/19/19 04:04 Elliptocytes Not Reportable 07/19/19 04:04 Acanthocytes (Spur) Not Reportable 07/19/19 04:04 Rouleaux Not Reportable 07/19/19 04:04 Hemoglobin C Crystals Not Reportable 07/19/19 04:04 Schistocytes Few 07/19/19 04:04 Malaria parasites Not Reportable 07/19/19 04:04 Jacob Bodies Not Reportable 07/19/19 04:04 Hem Pathologist Commnt No 07/19/19 04:04 Sodium 135 mmol/L (137-145) L 07/21/19 08:34 Potassium 4.4 mmol/L (3.6-5.0) 07/21/19 08:34 Chloride 95.7 mmol/L (98-107) L 07/21/19 08:34 Carbon Dioxide 21 mmol/L (22-30) L 07/21/19 08:34 Anion Gap 23 mmol/L 07/21/19 08:34 BUN 33 mg/dL (9-20) H 07/21/19 08:34 Creatinine 4.5 mg/dL (0.8-1.5) H 07/21/19 08:34 Estimated GFR 16 ml/min 07/21/19 08:34 BUN/Creatinine Ratio 7 % 07/21/19 08:34 Glucose 131 mg/dL (75-100) H 07/21/19 08:34 POC Glucose 199 (70-105) H 07/19/19 17:03 Calcium 9.0 mg/dL (8.4-10.2) 07/21/19 08:34 Magnesium 1.60 mg/dL (1.7-2.3) L 07/13/19 02:08 Total Bilirubin 0.50 mg/dL (0.1-1.2) 07/09/19 22:47 AST 55 units/L (5-40) H 07/09/19 22:47 ALT 36 units/L (7-56) 07/09/19 22:47 Alkaline Phosphatase 170 units/L (35-129) H 07/09/19 22:47 Total Protein 6.4 g/dL (6.3-8.2) 07/09/19 22:47 Albumin 2.6 g/dL (3.9-5) L 07/09/19 22:47 Albumin/Globulin Ratio 0.7 % 07/09/19 22:47 Active Medications - Current Medications Current Medications: Generic Name Dose Route Start Last Admin Trade Name Freq PRN Reason Stop Dose Admin Acetaminophen 650 mg 07/10/19 02:08 07/22/19 05:56 Tylenol PO 650 mg Q4H PRN Administration Pain MILD(1-3)/Fever >100.5/DOUGLAS Amlodipine Besylate 20 mg 07/10/19 10:00 07/21/19 10:04 Amlodipine PO 20 mg DAILY BEAN Administration Atorvastatin Calcium 40 mg 07/10/19 22:00 07/21/19 22:55 Lipitor PO 40 mg QHS BEAN Administration Diphenhydramine HCl 25 mg 07/11/19 12:03 07/22/19 05:57 Benadryl IV 25 mg Q6H PRN Administration Itching Epoetin Prashant 10,000 unit 07/10/19 02:11 07/17/19 13:00 Procrit SUB-Q 10,000 unit KATERYNA PRN Administration hemodialysis Heparin Sodium (Porcine) 1,000 unit 07/10/19 02:08 Heparin 10,000 Units/10 Ml IV KATERYNA PRN hemodialysis Sodium Chloride 100 mls @ 999 mls/hr 07/10/19 08:00 Nacl 0.9% IV KATERYNA PRN Hypotension Lidocaine/Prilocaine 1 applic 07/19/19 10:00 07/19/19 15:09 Emla TP 1 applic MoWeFr BEAN Administration Metoprolol Tartrate 12.5 mg 07/10/19 10:00 07/21/19 22:56 Metoprolol PO 12.5 mg BID BEAN Administration Ondansetron HCl 4 mg 07/10/19 02:08 07/21/19 22:55 Zofran IV 4 mg Q8H PRN Administration Nausea And Vomiting Oxycodone HCl 10 mg 07/10/19 02:19 07/21/19 17:01 Roxicodone PO 10 mg Q6H PRN Administration Pain, Moderate (4-6) Sodium Chloride 10 ml 07/10/19 10:00 07/21/19 22:57 Sodium Chloride Flush Syringe 10 Ml IV 10 ml BID BEAN Administration Sodium Chloride 10 ml 07/10/19 02:08 Sodium Chloride Flush Syringe 10 Ml IV PRN PRN LINE FLUSH Nutrition/Malnutrition Assess - Dietary Evaluation Nutrition/Malnutrition Findings: Nutrition Notes Start: 07/17/19 09:30 Freq: Status: Active Protocol: Document 07/19/19 10:09 JAE (Rec: 07/19/19 10:13 [id number] [id number]) Co-Sign 07/19/19 10:09 LP Nutrition Notes Initial or Follow up Reassessment Current Diagnosis CKD (stage V CKD),COPD, Coronary Artery Disease,Heart Failure,Hyperlipidemia Other Pertinent Diagnosis On HD, afib, pulmonary edema Current Diet Renal Labs/Tests K 5.1 BUN 40 Cr 4.8 Pertinent Medications Lipitor Height 5 ft 9 in Weight 56.2 kg [place] Body Weight (kg) 72.72 BMI 18.3 Weight Status Underweight Subjective/Other Information F/U for PO intakes. Pt stated his appetite is fair. Pt stated eating about 50% of meals yesterday. Pt didn't eat breakfast this morning due to HD and it would make him nauseaous. Pt stated he would eat it later. Percent of energy/protein needs met: 56%/58% Burn Absent Trauma Absent GI Symptoms None Current % PO Fair (50-74%) Minimum of two criteria Yes Interpretation of Weight Loss (severe) >7.5% in 3 months Muscle Mass Mild Depletion (non-severe) #1 Nutrition Diagnosis Malnutrition Diagnosis Progress(for reassessment Continues documentation) Is patient on ventilator? No Is Patient Ambulatory and/or Out of Bed Yes REE-([place]-St. Jeor-ambulatory/OOB) [ 1699.594 [id number]] Kcal/Kg value to use for calculation 34 Approximate Energy Requirements Using 1911 kcal/Kg Calculation Used for Recommendations Kcal/kg Additional Notes Protein: 67g (>1.2g/kg) Fluid: 1295-6996 ml or per MD Nutrition Intervention Change Diet Order: Continue current Goal #1 Meet at least 80% of energy and protein needs via PO intakes Goal #2 Wt gain/maintenance Anticipated Discharge Needs: Renal diet Follow-Up By: 07/23/19 Additional Comments F/U for PO intakes
[2019-07-22] MEDS ORDERED: SODIUM CHLORIDE*PRIMING MACHINE ONLY FOR DIALYSIS MC ONE (11:34)
--- NOTE | 2019-07-22 11:50 | Progress Note ---
Assessment and Plan 1. ESRD: Patient was admitted with hyperkalemia. Continue hemodialysis three times a week, MWF schedule. Hemodialysis: 07/10, 07/12, 07/15, 07/17, 07/19, 07/22. 2. FEN: Hyperkalemia, improving with HD, monitor. Renal diet. Monitor. 3. Diarrhea: Resolved. 4. Chronic pleural effusion. 5. Chronic A.fib. 6. HTN. 7. Anemia: Epogen with HD. 8. PAD. Await outpatient HD chair. 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 Patient states he was still nauseous early this morning but it is improving. No other complaints. Objective - Vital Signs Vital signs: Vital Signs - 12hr 07/22/19 07/22/19 07/22/19 02:14 02:15 05:56 Temperature 98.3 F Pulse Rate 112 H Respiratory 18 20 Rate Blood Pressure 126/85 O2 Sat by Pulse 91 Oximetry 07/22/19 07/22/19 06:56 08:14 Temperature 97.6 F Pulse Rate 111 H Respiratory 18 20 Rate Blood Pressure 138/98 O2 Sat by Pulse 100 Oximetry - Lab 07/19/19 04:04 07/21/19 08:34 Most recent lab results Calcium 9.0 mg/dL (8.4-10.2) 07/21/19 08:34 Magnesium 1.60 mg/dL (1.7-2.3) L 07/13/19 02:08 Medications & Allergies - Medications Allergies/Adverse Reactions: Allergies aspirin Allergy (Verified 02/20/19 22:06) Unknown stomach cramps pork derived (porcine) Allergy (Verified 02/20/19 22:06) Rash venom-honey bee [bee venom (honey bee)] Allergy (Verified 02/20/19 22:06) Anaphylaxis Pork/Porcine Containing Products Adverse Reaction (Severe, Verified 02/20/19 22:06) Nausea,VOMITING Home Medications: Home Medications Medication Instructions Recorded Confirmed Last Taken Type AtorvaSTATin [Lipitor] 40 mg PO QHS #30 05/22/19 07/09/19 Unknown Rx Epoetin Prashant 10,000 Unit [Procrit] 10,000 unit SUB-Q KATERYNA PRN vial 05/22/19 07/09/19 Unknown Rx Metoprolol [Lopressor TAB] 12.5 mg PO BID #60 tablet 05/22/19 07/09/19 Unknown Rx Oxycodone HCl [oxyCODONE] 10 mg PO Q6H PRN #20 05/22/19 07/09/19 Unknown Rx amLODIPine 20 mg PO DAILY #30 05/22/19 07/09/19 Unknown Rx Acetaminophen [Acetaminophen TAB] 1 tab PO Q4H PRN #15 tablet 07/08/19 07/09/19 Unknown Rx Active Medications: Generic Name Dose Route Start Last Admin Trade Name Freq PRN Reason Stop Dose Admin Acetaminophen 650 mg 07/10/19 02:08 07/22/19 05:56 Tylenol PO 650 mg Q4H PRN Administration Pain MILD(1-3)/Fever >100.5/DOUGLAS Amlodipine Besylate 20 mg 07/10/19 10:00 07/21/19 10:04 Amlodipine PO 20 mg DAILY BEAN Administration Atorvastatin Calcium 40 mg 07/10/19 22:00 07/21/19 22:55 Lipitor PO 40 mg QHS BEAN Administration Diphenhydramine HCl 25 mg 07/11/19 12:03 07/22/19 05:57 Benadryl IV 25 mg Q6H PRN Administration Itching Epoetin Prashant 10,000 unit 07/10/19 02:11 07/17/19 13:00 Procrit SUB-Q 10,000 unit KATERYNA PRN Administration hemodialysis Heparin Sodium (Porcine) 1,000 unit 07/10/19 02:08 Heparin 10,000 Units/10 Ml IV KATERYNA PRN hemodialysis Sodium Chloride 100 mls @ 999 mls/hr 07/10/19 08:00 Nacl 0.9% IV KATERYNA PRN Hypotension Lidocaine/Prilocaine 1 applic 07/19/19 10:00 07/19/19 15:09 Emla TP 1 applic MoWeFr BEAN Administration Metoprolol Tartrate 12.5 mg 07/10/19 10:00 07/21/19 22:56 Metoprolol PO 12.5 mg BID BEAN Administration Ondansetron HCl 4 mg 07/10/19 02:08 07/21/19 22:55 Zofran IV 4 mg Q8H PRN Administration Nausea And Vomiting Oxycodone HCl 10 mg 07/10/19 02:19 07/21/19 17:01 Roxicodone PO 10 mg Q6H PRN Administration Pain, Moderate (4-6) Sodium Chloride 10 ml 07/10/19 10:00 07/21/19 22:57 Sodium Chloride Flush Syringe 10 Ml IV 10 ml BID BEAN Administration Sodium Chloride 10 ml 07/10/19 02:08 Sodium Chloride Flush Syringe 10 Ml IV PRN PRN LINE FLUSH
[2019-07-22] MEDS: METOPROLOL TARTRATE 25 MG TAB PO SCH ×2 (15:36→21:08)
[2019-07-22] MEDS: amLODIPine 10 MG TAB PO SCH (15:37)
[2019-07-22] MEDS: EMLA CREAM 5 GM TP SCH (16:06)
[2019-07-22] MEDS: EPOETIN ALFA 10,000 UNIT/1 ML INJ SUB-Q PRN (19:59)
[2019-07-22] MEDS: oxyCODONE 5 MG TAB PO PRN (20:36)
[2019-07-23] MEDS: diphenhydrAMINE 50 MG/ML VIAL IV PRN ×3 (00:21→12:18)
[2019-07-23] MEDS: ACETAMINOPHEN 325 MG TAB PO PRN (06:20)
--- NOTE | 2019-07-23 07:15 | Progress Note ---
Assessment and Plan 1. ESRD: Patient was admitted with hyperkalemia. Continue hemodialysis three times a week, MWF schedule. Hemodialysis: 07/10, 07/12, 07/15, 07/17, 07/19, 07/22. Patient is awaiting outpatient dialysis chair. 2. FEN: Hyperkalemia, improving with HD, monitor. Renal diet. Monitor. 3. Diarrhea: Resolved. 4. Chronic pleural effusion. 5. Chronic A.fib. 6. HTN. 7. Anemia: Epogen with HD. 8. PAD. Await outpatient HD chair. Examination: General appearance: well-developed, appears stated age, not in distress HEENT: ATNC, ELENI, hearing intact, vision intact Neck: neck supple, trachea midline Respiratory: Clear to Auscultation Heart: S1S2, irregular, no murmur Gastrointestinal: soft, normoactive bowel sounds, NT, ND Integumentary: no rash, warm and dry Neurologic: no focal deficit, no asterixis, alert and oriented x3 Ext: L forearm amputation, no edema Hemodialysis access: R IJ tunnel catheter, R arm AVF Subjective Date of service: 07/23/19 Principal diagnosis: Volume overload Interval history: Patient was seen and examined in the dialysis unit during his HD treatment. Patient states he is still nauseous but it is relieved with medication and food. No other complaints. Objective - Vital Signs Vital signs: Vital Signs - 12hr 07/22/19 07/22/19 07/22/19 19:55 22:00 22:16 Temperature 98.0 F Pulse Rate 111 H Pulse Rate [ 111 H Left Radial] Respiratory 18 18 Rate Blood Pressure 132/93 O2 Sat by Pulse 94 94 90 Oximetry 07/23/19 02:43 Temperature 98.1 F Pulse Rate 88 Pulse Rate [ Left Radial] Respiratory 18 Rate Blood Pressure 109/72 O2 Sat by Pulse 93 Oximetry - Lab 07/19/19 04:04 07/21/19 08:34 Most recent lab results Calcium 9.0 mg/dL (8.4-10.2) 07/21/19 08:34 Magnesium 1.60 mg/dL (1.7-2.3) L 07/13/19 02:08 Medications & Allergies - Medications Allergies/Adverse Reactions: Allergies aspirin Allergy (Verified 02/20/19 22:06) Unknown stomach cramps pork derived (porcine) Allergy (Verified 02/20/19 22:06) Rash venom-honey bee [bee venom (honey bee)] Allergy (Verified 02/20/19 22:06) Anaphylaxis Pork/Porcine Containing Products Adverse Reaction (Severe, Verified 02/20/19 22:06) Nausea,VOMITING Home Medications: Home Medications Medication Instructions Recorded Confirmed Last Taken Type AtorvaSTATin [Lipitor] 40 mg PO QHS #30 05/22/19 07/09/19 Unknown Rx Epoetin Prashant 10,000 Unit [Procrit] 10,000 unit SUB-Q KATERYNA PRN vial 05/22/19 07/09/19 Unknown Rx Metoprolol [Lopressor TAB] 12.5 mg PO BID #60 tablet 05/22/19 07/09/19 Unknown Rx Oxycodone HCl [oxyCODONE] 10 mg PO Q6H PRN #20 05/22/19 07/09/19 Unknown Rx amLODIPine 20 mg PO DAILY #30 05/22/19 07/09/19 Unknown Rx Acetaminophen [Acetaminophen TAB] 1 tab PO Q4H PRN #15 tablet 07/08/19 07/09/19 Unknown Rx Active Medications: Generic Name Dose Route Start Last Admin Trade Name Freq PRN Reason Stop Dose Admin Acetaminophen 650 mg 07/10/19 02:08 07/23/19 06:20 Tylenol PO 650 mg Q4H PRN Administration Pain MILD(1-3)/Fever >100.5/DOUGLAS Amlodipine Besylate 20 mg 07/10/19 10:00 07/22/19 15:37 Amlodipine PO 20 mg DAILY BEAN Administration Atorvastatin Calcium 40 mg 07/10/19 22:00 07/22/19 21:08 Lipitor PO 40 mg QHS BEAN Administration Diphenhydramine HCl 25 mg 07/11/19 12:03 07/23/19 06:19 Benadryl IV 25 mg Q6H PRN Administration Itching Epoetin Prashant 10,000 unit 07/10/19 02:11 07/22/19 19:59 Procrit SUB-Q 10,000 unit KATERYNA PRN Administration hemodialysis Heparin Sodium (Porcine) 1,000 unit 07/10/19 02:08 Heparin 10,000 Units/10 Ml IV KATERYNA PRN hemodialysis Sodium Chloride 100 mls @ 999 mls/hr 07/10/19 08:00 Nacl 0.9% IV KATERYNA PRN Hypotension Lidocaine/Prilocaine 1 applic 07/19/19 10:00 07/22/19 16:06 Emla TP 1 applic MoWeFr BEAN Administration Metoprolol Tartrate 12.5 mg 07/10/19 10:00 07/22/19 21:08 Metoprolol PO 12.5 mg BID BEAN Administration Ondansetron HCl 4 mg 07/10/19 02:08 07/21/19 22:55 Zofran IV 4 mg Q8H PRN Administration Nausea And Vomiting Oxycodone HCl 10 mg 07/10/19 02:19 07/22/19 20:36 Roxicodone PO 10 mg Q6H PRN Administration Pain, Moderate (4-6) Sodium Chloride 10 ml 07/10/19 10:00 07/22/19 21:09 Sodium Chloride Flush Syringe 10 Ml IV 10 ml BID BEAN Administration Sodium Chloride 10 ml 07/10/19 02:08 07/22/19 18:07 Sodium Chloride Flush Syringe 10 Ml IV 10 ml PRN PRN Administration LINE FLUSH
--- NOTE | 2019-07-23 10:25 | Progress Note ---
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 Resolved. A-fib -EKG shows Sinus rhythm -Rate control with home meds Anemia -due to chronic kidney disease -Continue home meds once reconciled Moderate protein calorie malnutrition. Nutritional support. DVT prophylaxis -SCDs bilaterally - Heparin and GI prophylaxis Disposition. Await OP HD chair History Interval history: No new issues overnight. Hospitalist Physical - Constitutional Vitals: Temp Pulse Resp BP Pulse Ox 98.1 F 88 18 109/72 96 07/23/19 02:43 07/23/19 02:43 07/23/19 02:43 07/23/19 02:43 07/23/19 08:04 General appearance: Present: no acute distress - EENT Eyes: Present: PERRL, EOM intact ENT: hearing intact, clear oral mucosa, dentition normal - Neck Neck: Present: supple, normal ROM - Respiratory Respiratory effort: normal Respiratory: bilateral: CTA - Cardiovascular Rhythm: regular Heart Sounds: Present: S1 & S2. Absent: gallop, rub - Extremities Extremities: no ischemia, No edema, Full ROM - Abdominal General gastrointestinal: soft, non-tender, non-distended, normal bowel sounds - Integumentary Integumentary: Present: clear, warm, dry - Neurologic Neurologic: CNII-XII intact, moves all extremities ROGER score - Roger Score Age > 65: (1) Yes Aspirin use within the Past 7 Days: (1) Yes 3 or more CAD Risk Factors: (1) Yes 2 or more Angina events in past 24 hrs: (1) Yes Known CAD with more than 50% Stenosis: (0) No Elevated Cardiac Markers: (1) Yes ST Deviation Greater than 0.5mm: (0) No ROGER Score: 5 Results - Labs CBC & Chem 7: 07/19/19 04:04 07/21/19 08:34 Labs: Laboratory Last Values WBC 3.7 K/mm3 (4.5-11.0) L 07/19/19 04:04 RBC 2.37 M/mm3 (3.65-5.03) L 07/19/19 04:04 Hgb 7.9 gm/dl (11.8-15.2) L 07/19/19 04:04 Hct 24.2 % (35.5-45.6) L 07/19/19 04:04 MCV 102 fl (84-94) H 07/19/19 04:04 MCH 33 pg (28-32) H 07/19/19 04:04 MCHC 33 % (32-34) 07/19/19 04:04 RDW 19.5 % (13.2-15.2) H 07/19/19 04:04 Plt Count 109 K/mm3 (140-440) L 07/19/19 04:04 Lymph % (Auto) 20.8 % (13.4-35.0) 07/15/19 08:06 Sutton % (Auto) Electrician Supervisor 07/19/19 04:04 Eos % (Auto) 2.5 % (0.0-4.3) 07/15/19 08:06 Baso % (Auto) 1.0 % (0.0-1.8) 07/15/19 08:06 Lymph # 0.7 K/mm3 (1.2-5.4) L 07/15/19 08:06 Sutton # 0.5 K/mm3 (0.0-0.8) 07/15/19 08:06 Eos # 0.1 K/mm3 (0.0-0.4) 07/15/19 08:06 Baso # 0.0 K/mm3 (0.0-0.1) 07/15/19 08:06 Add Manual Diff Complete 07/19/19 04:04 Total Counted 100 07/19/19 04:04 Seg Neutrophils % 62.1 % (40.0-70.0) 07/15/19 08:06 Seg Neuts % (Manual) 52.0 % (40.0-70.0) 07/19/19 04:04 Band Neutrophils % 0 % 07/19/19 04:04 Lymphocytes % (Manual) 35.0 % (13.4-35.0) 07/19/19 04:04 Reactive Lymphs % (Man) 0 % 07/19/19 04:04 Monocytes % (Manual) 9.0 % (0.0-7.3) H 07/19/19 04:04 Eosinophils % (Manual) 4.0 % (0.0-4.3) 07/19/19 04:04 Basophils % (Manual) 0 % (0.0-1.8) 07/19/19 04:04 Metamyelocytes % 0 % 07/19/19 04:04 Myelocytes % 0 % 07/19/19 04:04 Promyelocytes % 0 % 07/19/19 04:04 Blast Cells % 0 % 07/19/19 04:04 Nucleated RBC % Not Reportable 07/19/19 04:04 Seg Neutrophils # 2.1 K/mm3 (1.8-7.7) 07/15/19 08:06 Seg Neutrophils # Man 1.9 K/mm3 (1.8-7.7) 07/19/19 04:04 Band Neutrophils # 0.0 K/mm3 07/19/19 04:04 Lymphocytes # (Manual) 1.3 K/mm3 (1.2-5.4) 07/19/19 04:04 Abs React Lymphs (Man) 0.0 K/mm3 07/19/19 04:04 Monocytes # (Manual) 0.3 K/mm3 (0.0-0.8) 07/19/19 04:04 Eosinophils # (Manual) 0.1 K/mm3 (0.0-0.4) 07/19/19 04:04 Basophils # (Manual) 0.0 K/mm3 (0.0-0.1) 07/19/19 04:04 Metamyelocytes # 0.0 K/mm3 07/19/19 04:04 Myelocytes # 0.0 K/mm3 07/19/19 04:04 Promyelocytes # 0.0 K/mm3 07/19/19 04:04 Blast Cells # 0.0 K/mm3 07/19/19 04:04 WBC Morphology Not Reportable 07/19/19 04:04 Hypersegmented Neuts Not Reportable 07/19/19 04:04 Hyposegmented Neuts Not Reportable 07/19/19 04:04 Hypogranular Neuts Not Reportable 07/19/19 04:04 Smudge Cells Not Reportable 07/19/19 04:04 Toxic Granulation Not Reportable 07/19/19 04:04 Toxic Vacuolation Not Reportable 07/19/19 04:04 Dohle Bodies Not Reportable 07/19/19 04:04 Pelger-Huet Anomaly Not Reportable 07/19/19 04:04 Gertrude Rods Not Reportable 07/19/19 04:04 Platelet Estimate Consistent w auto 07/19/19 04:04 Clumped Platelets Not Reportable 07/19/19 04:04 Plt Clumps, EDTA Not Reportable 07/19/19 04:04 Large Platelets Not Reportable 07/19/19 04:04 Giant Platelets Not Reportable 07/19/19 04:04 Platelet Satelliting Not Reportable 07/19/19 04:04 Plt Morphology Comment Not Reportable 07/19/19 04:04 RBC Morphology Not Reportable 07/19/19 04:04 Dimorphic RBCs Not Reportable 07/19/19 04:04 Polychromasia Not Reportable 07/19/19 04:04 Hypochromasia Not Reportable 07/19/19 04:04 Poikilocytosis Not Reportable 07/19/19 04:04 Anisocytosis Not Reportable 07/19/19 04:04 Microcytosis Not Reportable 07/19/19 04:04 Macrocytosis Not Reportable 07/19/19 04:04 Spherocytes Not Reportable 07/19/19 04:04 Pappenheimer Bodies Not Reportable 07/19/19 04:04 Sickle Cells Not Reportable 07/19/19 04:04 Target Cells Not Reportable 07/19/19 04:04 Tear Drop Cells Few 07/19/19 04:04 Ovalocytes Few 07/19/19 04:04 Helmet Cells Not Reportable 07/19/19 04:04 [place] Bodies Not Reportable 07/19/19 04:04 Bryan Rings Not Reportable 07/19/19 04:04 Priya Cells Few 07/19/19 04:04 Bite Cells Not Reportable 07/19/19 04:04 Crenated Cell Not Reportable 07/19/19 04:04 Elliptocytes Not Reportable 07/19/19 04:04 Acanthocytes (Spur) Not Reportable 07/19/19 04:04 Rouleaux Not Reportable 07/19/19 04:04 Hemoglobin C Crystals Not Reportable 07/19/19 04:04 Schistocytes Few 07/19/19 04:04 Malaria parasites Not Reportable 07/19/19 04:04 Jacob Bodies Not Reportable 07/19/19 04:04 Hem Pathologist Commnt No 07/19/19 04:04 Sodium 135 mmol/L (137-145) L 07/21/19 08:34 Potassium 4.4 mmol/L (3.6-5.0) 07/21/19 08:34 Chloride 95.7 mmol/L (98-107) L 07/21/19 08:34 Carbon Dioxide 21 mmol/L (22-30) L 07/21/19 08:34 Anion Gap 23 mmol/L 07/21/19 08:34 BUN 33 mg/dL (9-20) H 07/21/19 08:34 Creatinine 4.5 mg/dL (0.8-1.5) H 07/21/19 08:34 Estimated GFR 16 ml/min 07/21/19 08:34 BUN/Creatinine Ratio 7 % 07/21/19 08:34 Glucose 131 mg/dL (75-100) H 07/21/19 08:34 POC Glucose 199 (70-105) H 07/19/19 17:03 Calcium 9.0 mg/dL (8.4-10.2) 07/21/19 08:34 Magnesium 1.60 mg/dL (1.7-2.3) L 07/13/19 02:08 Total Bilirubin 0.50 mg/dL (0.1-1.2) 07/09/19 22:47 AST 55 units/L (5-40) H 07/09/19 22:47 ALT 36 units/L (7-56) 07/09/19 22:47 Alkaline Phosphatase 170 units/L (35-129) H 07/09/19 22:47 Total Protein 6.4 g/dL (6.3-8.2) 07/09/19 22:47 Albumin 2.6 g/dL (3.9-5) L 07/09/19 22:47 Albumin/Globulin Ratio 0.7 % 07/09/19 22:47 Active Medications - Current Medications Current Medications: Generic Name Dose Route Start Last Admin Trade Name Freq PRN Reason Stop Dose Admin Acetaminophen 650 mg 07/10/19 02:08 07/23/19 06:20 Tylenol PO 650 mg Q4H PRN Administration Pain MILD(1-3)/Fever >100.5/DOUGLAS Amlodipine Besylate 20 mg 07/10/19 10:00 07/22/19 15:37 Amlodipine PO 20 mg DAILY BEAN Administration Atorvastatin Calcium 40 mg 07/10/19 22:00 07/22/19 21:08 Lipitor PO 40 mg QHS BEAN Administration Diphenhydramine HCl 25 mg 07/11/19 12:03 07/23/19 06:19 Benadryl IV 25 mg Q6H PRN Administration Itching Epoetin Prashant 10,000 unit 07/10/19 02:11 07/22/19 19:59 Procrit SUB-Q 10,000 unit KATERYNA PRN Administration hemodialysis Heparin Sodium (Porcine) 1,000 unit 07/10/19 02:08 Heparin 10,000 Units/10 Ml IV KATERYNA PRN hemodialysis Sodium Chloride 100 mls @ 999 mls/hr 07/10/19 08:00 Nacl 0.9% IV KATERYNA PRN Hypotension Lidocaine/Prilocaine 1 applic 07/19/19 10:00 07/22/19 16:06 Emla TP 1 applic MoWeFr BEAN Administration Metoprolol Tartrate 12.5 mg 07/10/19 10:00 07/22/19 21:08 Metoprolol PO 12.5 mg BID BEAN Administration Ondansetron HCl 4 mg 07/10/19 02:08 07/21/19 22:55 Zofran IV 4 mg Q8H PRN Administration Nausea And Vomiting Oxycodone HCl 10 mg 07/10/19 02:19 07/22/19 20:36 Roxicodone PO 10 mg Q6H PRN Administration Pain, Moderate (4-6) Sodium Chloride 10 ml 07/10/19 10:00 07/22/19 21:09 Sodium Chloride Flush Syringe 10 Ml IV 10 ml BID BEAN Administration Sodium Chloride 10 ml 07/10/19 02:08 07/22/19 18:07 Sodium Chloride Flush Syringe 10 Ml IV 10 ml PRN PRN Administration LINE FLUSH Nutrition/Malnutrition Assess - Dietary Evaluation Nutrition/Malnutrition Findings: Nutrition Notes Start: 07/17/19 0 9:30 Freq: Status: Active Protocol: Document 07/23/19 10:00 JAE (Rec: 07/23/19 10:06 JAE [id number]) Co-Sign 07/23/19 10:00 LP Nutrition Notes Initial or Follow up Reassessment Current Diagnosis CKD (stage V CKD),COPD, Coronary Artery Disease, Diabetes,Heart Failure, Hyperlipidemia Other Pertinent Diagnosis On HD, afib, pulmonary edema Current Diet Renal Labs/Tests BUN 33 Cr 4.5 Pertinent Medications Reviewed Height 5 ft 9 in Weight 56.2 kg [place] Body Weight (kg) 72.72 BMI 18.3 Weight Status Underweight Subjective/Other Information F/U for PO intakes. Pt stated his appetite has been bad and that he threw up a couple days ago. Pt reported not vomiting since then. Pt stated he is still nauseated. Pt ate about 50% of dinner yesterday and nothing else. Pt didn't eat breakfast this morning. Pt requested Ensure clear. Preferences for lunch were noted. Percent of energy/protein needs met: 14%/15% Burn Absent Trauma Absent GI Symptoms None Current % PO Poor (25-49%) Minimum of two criteria Yes Interpretation of Weight Loss (severe) >7.5% in 3 months Muscle Mass Mild Depletion (non-severe) #1 Nutrition Diagnosis Malnutrition As Evidenced by Signs and Symptoms Pt's intake of 14%/15% of energy and protein needs Diagnosis Progress(for reassessment Worsened documentation) Is patient on ventilator? No Is Patient Ambulatory and/or Out of Bed Yes REE-([facility]-ambulatory/OOB) [ 1699.594 [id number]] Kcal/Kg value to use for calculation 34 Approximate Energy Requirements Using 1911 kcal/Kg Calculation Used for Recommendations Kcal/kg Additional Notes Protein: 67g (>1.2g/kg) Fluid: 3230-1235 ml or per MD Nutrition Intervention Change Diet Order: Continue current Add Supplement/Snack (indicate name/kcal Ensure clear BID /protein ) Provides kCal: 480 Provides Protein (gm) 16 Goal #1 Meet at least 80% of energy and protein needs via PO intakes Goal #2 Wt gain/maintenance Anticipated Discharge Needs: Renal diet Follow-Up By: 07/25/19 Additional Comments F/U for PO intakes and ONS tolerance
[2019-07-23] MEDS: amLODIPine 10 MG TAB PO SCH (12:18)
[2019-07-23] MEDS: METOPROLOL TARTRATE 25 MG TAB PO SCH (12:18)
[2019-07-23] MEDS: oxyCODONE 5 MG TAB PO PRN (12:19)
--- NOTE | 2019-07-23 13:59 | Discharge Summary ---
Providers - Providers Date of Admission: 07/10/19 16:32 Date of discharge: 07/23/19 Attending physician: GLADIS DONG 07/10/19 00:35 Consult to Physician [CONS] Routine Comment: Consulting Provider: LYRIC DIAMOND Physician Instructions: Reason For Exam: hd. k 07/10/19 06:44 Consult to Wound/ET Nurse [CONS] Routine Reason For Exam: wound eval Primary care physician: LICENSED FUNERAL DIRECTOR Hospitalization Reason for admission: missed HD Condition: Stable Hospital course: The patient is a 72 YO male with history significant for DM type 2, HTN, Chronic A.fib, CAD, CHF, PTSD, PAD s/p left forearm amputation, chronic L pleural effusion (Transudate) s/p multiple thoracentesis and ESRD on hemodialysis (TTS) who presented to [facility] ED 07/10 with c/o diarrhea. He was discharged from this facility on 07/08 and was last dialyzed on 07/08/2019. Pt had transportation issues that made it difficult to go to the outpatient dialysis clinic. He denied N, V, D, CP, fever, chills, dizziness, vomiting, abd pain, leg swelling or weakness. Labs were significant for K 5.9. Pt was admitted for further management. Nephrology was consulted for further evaluation. Patient received his appropriate hemodialysis during the hospitalization. Patient had no hospital complications. Case management was consulted and eventually over a period of time finally arrange for outpatient hemodialysis. Patient is felt to have received maximal hospital benefit and will be discharged home. Dedicated discharge time 32 minutes. Disposition: - TO HOME OR SELFCARE Time spent for discharge: 32 - Discharge Diagnoses (1) ESRD (end stage renal disease) on dialysis Status: Chronic Core Measure Documentation - Palliative Care Palliative Care/ Comfort Measures: Not Applicable - Core Measures Any of the following diagnoses?: none Exam - Constitutional Vitals: Temp Pulse Resp BP Pulse Ox 98.1 F 88 18 109/72 96 07/23/19 02:43 07/23/19 02:43 07/23/19 02:43 07/23/19 02:43 07/23/19 08:04 General appearance: Present: no acute distress, well-nourished - EENT Eyes: Present: PERRL ENT: hearing intact, clear oral mucosa - Neck Neck: Present: supple, normal ROM - Respiratory Respiratory effort: normal Respiratory: bilateral: CTA - Cardiovascular Heart Sounds: Present: S1 & S2. Absent: rub, click - Extremities Extremities: pulses symmetrical, No edema Peripheral Pulses: within normal limits - Abdominal General gastrointestinal: Present: soft, non-tender, non-distended, normal bowel sounds Male genitourinary: Present: normal - Integumentary Integumentary: Present: clear, warm, dry - Musculoskeletal Musculoskeletal: gait normal, strength equal bilaterally - Psychiatric Psychiatric: appropriate mood/affect, intact judgment & insight - Neurologic Neurologic: CNII-XII intact, moves all extremities Plan Activity: advance as tolerated Weight Bearing Status: Weight Bear as Tolerated Follow up with: PRIMARY CAREMD [Primary Care Provider] - 7 Days LYRIC DIAMOND MD [Staff Physician] - 7 Days Prescriptions: amLODIPine 20 mg PO DAILY #30 AtorvaSTATin [Lipitor] 40 mg PO QHS #30 Metoprolol [Lopressor TAB] 12.5 mg PO BID #60 tablet
[2019-07-23 19:37] VITALS: BP 115/78
== END 2019-07-23 20:24 | disposition home or self-care (01) | DRG 291 ==
LOC: ED 21:31 → INTOOBSV 07-10 02:21 → 4A 07-10 02:21 → OBSVTOIN 07-10 16:32 → 2B-ACE 07-16 20:27
PROVIDERS: ADMIT Internal Medicine Geriatric Medicine; ATTEND Hospitalist
PROC: 5A1D70Z Performance of Urinary Filtration, Intermittent, Less than 6 Hours Per Day (ICD-10-PCS; 2019-07-10)
PROC: 3E0234Z Introduction of Serum, Toxoid and Vaccine into Muscle, Percutaneous Approach (ICD-10-PCS; principal; 2019-07-11)
PROC: 5A1D70Z Performance of Urinary Filtration, Intermittent, Less than 6 Hours Per Day (ICD-10-PCS; 2019-07-12)
PROC: 5A1D70Z Performance of Urinary Filtration, Intermittent, Less than 6 Hours Per Day (ICD-10-PCS; 2019-07-15)
PROC: 5A1D70Z Performance of Urinary Filtration, Intermittent, Less than 6 Hours Per Day (ICD-10-PCS; 2019-07-17)
PROC: 5A1D70Z Performance of Urinary Filtration, Intermittent, Less than 6 Hours Per Day (ICD-10-PCS; 2019-07-19)
PROC: 5A1D70Z Performance of Urinary Filtration, Intermittent, Less than 6 Hours Per Day (ICD-10-PCS; 2019-07-22)
DX: I13.2 Hypertensive heart and chronic kidney disease with heart failure and with stage 5 chronic kidney disease, or end stage renal disease (principal); N18.6 End stage renal disease; I50.23 Acute on chronic systolic (congestive) heart failure; E87.5 Hyperkalemia; R65.10 Systemic inflammatory response syndrome (SIRS) of non-infectious origin without acute organ dysfunction; E44.0 Moderate protein-calorie malnutrition; E87.2 Acidosis; D63.1 Anemia in chronic kidney disease; D69.6 Thrombocytopenia, unspecified; I42.0 Dilated cardiomyopathy; I48.20 Chronic atrial fibrillation, unspecified; I25.10 Atherosclerotic heart disease of native coronary artery without angina pectoris; E11.22 Type 2 diabetes mellitus with diabetic chronic kidney disease; R19.7 Diarrhea, unspecified; Z68.1 Body mass index [BMI] 19.9 or less, adult; Z23 Encounter for immunization; Z91.030 Bee allergy status; Z88.8 Allergy status to other drugs, medicaments and biological substances; Z91.018 Allergy to other foods; Z89.022 Acquired absence of left finger(s); Z87.891 Personal history of nicotine dependence; Z79.82 Long term (current) use of aspirin; Z79.899 Other long term (current) drug therapy; Z99.2 Dependence on renal dialysis; Z86.718 Personal history of other venous thrombosis and embolism; Z79.84 Long term (current) use of oral hypoglycemic drugs
CPT/HCPCS: 36415; 80048; 80053; 82962; 83735; 84132; 85007; 85025; 85027; 90686; 90732; 93005; 93010; 94760; G0378; A9270-GY; J0885; J1200; J1644; J2405; J7030; J7040

== ENCOUNTER 2019-07-28 21:47 | Emergency (ER) | payer MEDICAID ==
--- NOTE | 2019-07-28 23:20 | Emergency Department Report ---
HPI - General Chief Complaint: Abdominal Pain Time Seen by Provider: 07/28/19 22:21 - HPI HPI: 72-year-old -[place] male presents to the emergency department with a complaint of a 3 day history of constipation and some abdominal pain. He has a past medical history of atrial fibrillation, CHF, end-stage renal disease, hypertension, insulin-dependent diabetes and nonischemic cardiomyopathy. The patient was admitted here for issues regarding his dialysis in late June and was discharged on 07/23/19. The patient was also just discharged from [facility] yesterday after spending a few days there were some issues with his dialysis and chronic back pains. He has not tried any stool softeners or laxatives, or any other treatment for her symptoms prior to arrival today. 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 abd surgery after war related ingury partial "stomach removal'. Left upper extremity amputation below elbow - Social History Smoking Status: Former Smoker Substance Use Type: None - Medications Home Medications: Home Medications Medication Instructions Recorded Confirmed Last Taken Type Epoetin Prashant 10,000 Unit [Procrit] 10,000 unit SUB-Q KATERYNA PRN vial 05/22/19 07/09/19 Unknown Rx Oxycodone HCl [oxyCODONE] 10 mg PO Q6H PRN #20 05/22/19 07/09/19 Unknown Rx Acetaminophen [Acetaminophen TAB] 1 tab PO Q4H PRN #15 tablet 07/08/19 07/09/19 Unknown Rx AtorvaSTATin [Lipitor] 40 mg PO QHS #30 07/23/19 Unknown Rx Lidocain2.5%/Prilocai2.5% [Emla] 1 applic TP MoWeFr tube 07/23/19 Unknown Rx Metoprolol [Lopressor TAB] 12.5 mg PO BID #60 tablet 07/23/19 Unknown Rx amLODIPine 20 mg PO DAILY #30 07/23/19 Unknown Rx bisacodyL [Dulcolax] 5 mg PO DAILY PRN #10 tab 07/29/19 Unknown Rx ED Review of Systems ROS: Stated complaint: ABDOMINAL PAIN/CONSTIPATION Other details as noted in HPI Comment: All other systems reviewed and negative Constitutional: denies: chills, fever Eyes: denies: eye pain, vision change ENT: denies: ear pain, throat pain Respiratory: denies: cough, shortness of breath Cardiovascular: denies: chest pain, palpitations Gastrointestinal: abdominal pain, constipation. denies: vomiting Genitourinary: denies: dysuria, discharge Musculoskeletal: denies: joint swelling, arthralgia Skin: denies: rash, lesions Neurological: denies: headache, weakness Physical Exam - Physical Exam Vital Signs: Vital Signs 07/28/19 07/28/19 22:10 22:30 Temperature 98.2 F Pulse Rate 118 H Respiratory 18 20 Rate Blood Pressure 137/96 Blood Pressure 137/96 [Left] O2 Sat by Pulse 99 99 Oximetry Physical Exam: GENERAL: The patient is well-developed well-nourished. HEENT: Normocephalic. Atraumatic. Patient has moist mucous membranes. EYES: Extraocular motions are intact. NECK: Supple. Trachea is midline. CHEST/LUNGS: Clear to auscultation. There is no respiratory distress noted. HEART/CARDIOVASCULAR: Regular. There is mild tachycardia. There is no murmur. ABDOMEN: Abdomen is soft. Mild generalized abdominal tenderness to palpation. No guarding. Patient has normal bowel sounds. There is no abdominal distention. SKIN:Skin is warm and dry. . NEURO: The patient is awake, alert, and oriented. The patient is cooperative. The patient has no focal neurologic deficits. Normal speech. MUSCULOSKELETAL: There is no tenderness or deformity. There is no evidence of acute injury. ED Course Vital Signs 07/28/19 07/28/19 22:10 22:30 Temperature 98.2 F Pulse Rate 118 H Respiratory 18 20 Rate Blood Pressure 137/96 Blood Pressure 137/96 [Left] O2 Sat by Pulse 99 99 Oximetry ED Medical Decision Making - Lab Data Result diagrams: 07/28/19 22:54 07/28/19 22:54 - Radiology Data Radiology results: report reviewed, image reviewed interpreted by me: Abdominal x-ray shows nonspecific nonobstructive bowel gas with increased stool volume. CT ABDOMEN AND PELVIS WITHOUT CONTRAST INDICATION: General is abdominal pain. Constipation. COMPARISON: CT abdomen and pelvis without contrast from 03/28/2019. TECHNIQUE: Axial, coronal and sagittal CT imaging of the abdomen and pelvis was performed without contrast. Lack of intravenous contrast limits evaluation of the vascular and solid organs. All CT scans at this location are performed using CT dose reduction for ALARA by means of automated exposure control. FINDINGS: LOWER CHEST: Moderate to severe cardiomegaly is noted without a significant pericardial effusion. There is a trace left pleural effusion and small right pleural effusion with associated atelectasis. LIVER: No significant abnormality. BILIARY: No significant abnormality. PANCREAS: No significant abnormality. SPLEEN: No significant abnormality. ADRENALS: No significant abnormality. KIDNEYS AND URETERS: No acute abnormality. Stable findings of end-stage renal disease with numerous bilateral renal cysts and atrophy. GI TRACT: No significant abnormality of the stomach or small bowel. The colon contains a large amount of stool without an additional significant abnormalities. The appendix is not well- visualized. PERITONEUM: No free fluid. No free air. No fluid collection. LYMPH NODES: No significant adenopathy. VASCULATURE: The aorta is normal in caliber. Severe generalized atherosclerosis is again noted. URINARY BLADDER: Collapsed without a distinct abnormality. REPRODUCTIVE ORGANS: No significant abnormality. ADDITIONAL FINDINGS: None. SKELETAL SYSTEM: No acute abnormality. Degenerative changes are again noted along the spine with unremarkable appearing lower lumbar fusion. Generalized sclerosis is consistent with ESRD. IMPRESSION: 1. Findings consistent with constipation. No other acute abnormality of the abdomen or pelvis. 2. Additional findings as above. Signer Name: Dallin Mera MD - Medical Decision Making This patient presents to the emergency department with the complaint of a 3 day history of constipation. On examination he has some mild generalized tenderness to palpation but otherwise the abdomen is nondistended, soft, and nontoxic in appearance. He has good bowel sounds heard to auscultation. Abdominal x-ray sh ows some increased stool volume and nonobstructive nonspecific bowel gas. A CT scan of the abdomen and pelvis without contrast was completed that also shows some signs of constipation without any other acute process. His labs are mostly unremarkable. There is some anemia of chronic kidney disease that is actually improved from his last visit. There is very mild hyperkalemia with a potassium of 5.3 and his renal function is consistent with his end-stage renal disease. Patient's vital signs have been stable throughout his ED course. He does have some mild tachycardia but this appears consistent with all of his previous visits. The patient has no complaints of any chest pain, palpitations. I believe the patient appears safe for discharge home. However, the patient says that his is unable to care for him as she has had a stroke and the home health care previously arranged has fallen through. Patient will remain in the emergency department until the morning for a case management consult. - Differential Diagnosis constipation, bowel obstruction, colitis, diverticulitis Critical Care Time: No Critical care attestation.: If time is entered above; I have spent that time in minutes in the direct care of this critically ill patient, excluding procedure time. ED Disposition Clinical Impression: Increased stool volume, ESRD (end stage renal disease) on dialysis Abdominal pain Qualifiers: Abdominal location: generalized Qualified Code(s): R10.84 - Generalized abdominal pain Disposition: - TO HOME OR SELFCARE Is pt being admited?: No Condition: Stable Instructions: Chronic Kidney Disease (ED), Constipation (ED), High Fiber Diet (ED), End-Stage Kidney Disease (ED) Additional Instructions: Please follow up with your primary care physician in the next few days. Continue with your normal dialysis regimen. Return to the emergency Department with any worsening of your symptoms or any acute distress. Prescriptions: bisacodyL [Dulcolax] 5 mg PO DAILY PRN #10 tab PRN Reason: Constipation Referrals: PRIMARY CAREMD [Referring] - 2-3 Days LYRIC DIAMOND MD [Staff Physician] - 2-3 Days Time of Disposition: 02:39
[2019-07-28 23:22] LABS: Basophils % (Auto) 0.9 % (0.0-1.8); Eosinophils # (Auto) 0.2 K/mm3 (0.0-0.4); Eosinophils % (Auto) 4.3 % (0.0-4.3); Hematocrit 26.7 % (35.5-45.6); Hemoglobin 8.8 gm/dl (11.8-15.2); Lymphocytes # (Auto) 0.8 K/mm3 (1.2-5.4); Lymphocytes % (Auto) 23.2 % (13.4-35.0); Mean Corpuscular HGB Conc 33 % (32-34); Mean Corpuscular Volume 100 fl (84-94); Monocytes # (Auto) 0.3 K/mm3 (0.0-0.8); Monocytes % (Auto) 9.6 % (0.0-7.3); Platelet Count 121 K/mm3 (140-440); Red Blood Count 2.67 M/mm3 (3.65-5.03); Red Cell Distribution Width 19.2 % (13.2-15.2)
--- NOTE | 2019-07-28 23:35 | XRay Report ---
ABDOMEN 2 VIEWS INDICATION / CLINICAL INFORMATION: Unspecified abdominal pain. Constipation. COMPARISON: CT abdomen and pelvis without contrast from 03/28/2019. FINDINGS: TUBES / LINES: None. BOWEL GAS PATTERN: No dilated bowel loops are seen. A large amount of stool is noted along the rectum . FREE AIR / EXTRALUMINAL GAS: None seen. ADDITIONAL FINDINGS: Severe generalized atherosclerosis is unchanged. No additional significant findi ngs. IMPRESSION: Findings suggestive of constipation. No other acute abnormality of the abdomen. Signer Name: Dallin Mera MD Signed: 07/28/2019 11:30 PM Workstation Name: [id number]
[2019-07-28 23:43] LABS: Albumin 2.9 g/dL (3.9-5); Calcium 8.9 mg/dL (8.4-10.2)
--- NOTE | 2019-07-29 00:33 | Cat Scan Report ---
CT ABDOMEN AND PELVIS WITHOUT CONTRAST INDICATION: General is abdominal pain. Constipation. COMPARISON: CT abdomen and pelvis without contrast from 03/28/2019. TECHNIQUE: Axial, coronal and sagittal CT imaging of the abdomen and pelvis was performed without co ntrast. Lack of intravenous contrast limits evaluation of the vascular and solid organs. All CT sca ns at this location are performed using CT dose reduction for ALARA by means of automated exposure co ntrol. FINDINGS: LOWER CHEST: Moderate to severe cardiomegaly is noted without a significant pericardial effusion. The re is a trace left pleural effusion and small right pleural effusion with associated atelectasis. LIVER: No significant abnormality. BILIARY: No significant abnormality. PANCREAS: No significant abnormality. SPLEEN: No significant abnormality. ADRENALS: No significant abnormality. KIDNEYS AND URETERS: No acute abnormality. Stable findings of end-stage renal disease with numerous b ilateral renal cysts and atrophy. GI TRACT: No significant abnormality of the stomach or small bowel. The colon contains a large amount of stool without an additional significant abnormalities. The appendix is not well-visualized. PERITONEUM: No free fluid. No free air. No fluid collection. LYMPH NODES: No significant adenopathy. VASCULATURE: The aorta is normal in caliber. Severe generalized atherosclerosis is again noted. URINARY BLADDER: Collapsed without a distinct abnormality. REPRODUCTIVE ORGANS: No significant abnormality. ADDITIONAL FINDINGS: None. SKELETAL SYSTEM: No acute abnormality. Degenerative changes are again noted along the spine with unre markable appearing lower lumbar fusion. Generalized sclerosis is consistent with ESRD. IMPRESSION: 1. Findings consistent with constipation. No other acute abnormality of the abdomen or pelvis. 2. Additional findings as above. Signer Name: Dallin Mera MD Signed: 07/29/2019 12:29 AM Workstation Name: [email or web address]
[2019-07-29] MEDS ORDERED: ACETAMINOPHEN 325 MG TAB PO ONE (02:45)
[2019-07-29 07:25] VITALS: BP 136/85
== END 2019-07-29 13:15 | disposition home or self-care (01) ==
LOC: ED 21:47
DX: K21.9 Gastro-esophageal reflux disease without esophagitis (principal); R10.9 Unspecified abdominal pain; I11.0 Hypertensive heart disease with heart failure; I50.9 Heart failure, unspecified; M19.90 Unspecified osteoarthritis, unspecified site; F43.10 Post-traumatic stress disorder, unspecified; J44.9 Chronic obstructive pulmonary disease, unspecified; Z98.890 Other specified postprocedural states; Z87.891 Personal history of nicotine dependence; Z79.899 Other long term (current) drug therapy; Z88.0 Allergy status to penicillin; Z91.030 Bee allergy status; Z88.8 Allergy status to other drugs, medicaments and biological substances
CPT/HCPCS: 36415; 74019; 74176; 80053; 83690; 85025

== ENCOUNTER 2019-07-29 19:43 | Emergency (ER) | payer MEDICAID ==
--- NOTE | 2019-07-30 00:01 | Emergency Department Report ---
ED Rash HPI - HPI Chief Complaint: Skin Rash Stated Complaint: ITCHING Time Seen by Provider: 07/29/19 22:59 Duration: Today Location: Other (diffuse) Suspected Cause: Medication Rash Symptoms: Yes Itching, No Facial Swelling, No Tongue/Oral Swelling, No Breathing Difficulties, No Choking Sensation, No Wheezing/Dyspnea Severity: mild Other History: 72-year-old male with history of DM, HTN, chronic atrial fibrillation, CAD, CHF, ESRD, chronic neck and back pain, presents to ED with complaint of constipation and allergic reaction. Patient was seen yesterday for constipation, had CT abdomen pelvis done that did not show any evidence of obstruction. He was given a prescription for stool softeners and presents today stating that after taking the stool softener he broke out into hives, which have now resolved. Patient also requesting pain medication for his chronic neck and back pain. ED Review of Systems ROS: Stated complaint: ITCHING Other details as noted in HPI Comment: All other systems reviewed and negative Constitutional: denies: chills, fever Gastrointestinal: constipation. denies: vomiting Skin: rash ED Past Medical Hx - Past Medical History Hx Hypertension: Yes Hx Heart Attack/AMI: No Hx Congestive Heart Failure: Yes Hx Diabetes: Yes Hx Deep Vein Thrombosis: Yes Hx Pulmonary Embolism: No Hx Liver Disease: Yes Hx Renal Disease: No Hx Arthritis: Yes (generalized) Hx Seizures: No Hx Kidney Stones: No Hx Psychiatric Treatment: Yes (PTSD) Hx Asthma: No Hx COPD: Yes Hx Tuberculosis: No Hx HIV: No Additional medical history: 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 abd surgery after war related ingury partial "stomach removal'. Left upper extremity amputation below elbow - Social History Smoking Status: Former Smoker Substance Use Type: None - Medications Home Medications: Home Medications Medication Instructions Recorded Confirmed Last Taken Type Epoetin Prashant 10,000 Unit [Procrit] 10,000 unit SUB-Q KATERYNA PRN vial 05/22/19 07/09/19 Unknown Rx Oxycodone HCl [oxyCODONE] 10 mg PO Q6H PRN #20 12/04/19 01/21/20 Unknown Rx Acetaminophen [Acetaminophen TAB] 1 tab PO Q4H PRN #15 tablet 07/08/19 07/09/19 Unknown Rx AtorvaSTATin [Lipitor] 40 mg PO QHS #30 07/23/19 Unknown Rx Lidocain2.5%/Prilocai2.5% [Emla] 1 applic TP MoWeFr tube 07/23/19 Unknown Rx Metoprolol [Lopressor TAB] 12.5 mg PO BID #60 tablet 07/23/19 Unknown Rx amLODIPine 20 mg PO DAILY #30 07/23/19 Unknown Rx bisacodyL [Dulcolax] 5 mg PO DAILY PRN #10 tab 07/29/19 Unknown Rx Sodium Phosphate,[place]-Dibasic 133 ml RC ONCE #1 enema 07/30/19 Unknown Rx [Fleet Enema] Rash Exam - Exam General: Vital signs noted. No distress. Alert and acting appropriately. HEENT: No Conjuctival Injection, No Compromised Airway Lungs: Yes Good Air Exchange, No Wheezes, No Stridor, No Labored Respirations, No Retractions Heart: Yes Regular Skin: Yes Other (skin is dry diffusely), No Urticarial Rash Other: Positive: Abdomen Normal, Neurologic Normal, Musculoskeletal Normal ED Course Vital Signs 07/29/19 21:27 Temperature 97.6 F Pulse Rate 114 H Respiratory 22 Rate Blood Pressure 139/100 [Left] O2 Sat by Pulse 100 Oximetry Critical care attestation.: If time is entered above; I have spent that time in minutes in the direct care of this critically ill patient, excluding procedure time. ED Disposition Clinical Impression: Constipation, Allergic reaction Disposition: - TO HOME OR SELFCARE Is pt being admited?: No Condition: Stable Instructions: Constipation (ED), Allergies (ED) Prescriptions: Sodium Phosphate,[place]-Dibasic [Fleet Enema] 133 ml RC ONCE #1 enema Referrals: PRIMARY CARE, [Primary Care Provider] - 3-5 Days Time of Disposition: 00:11
[2019-07-30 03:33] VITALS: BP 101/78
== END 2019-07-30 03:43 | disposition home or self-care (01) ==
LOC: ED 19:43
DX: T78.40XA Allergy, unspecified, initial encounter (principal); K59.00 Constipation, unspecified; I11.0 Hypertensive heart disease with heart failure; I50.9 Heart failure, unspecified; E11.9 Type 2 diabetes mellitus without complications; I82.409 Acute embolism and thrombosis of unspecified deep veins of unspecified lower extremity; J44.9 Chronic obstructive pulmonary disease, unspecified; M13.88 Other specified arthritis, other site; Z79.899 Other long term (current) drug therapy; Z98.890 Other specified postprocedural states; Z87.891 Personal history of nicotine dependence; Z91.030 Bee allergy status; Z91.018 Allergy to other foods; Z88.8 Allergy status to other drugs, medicaments and biological substances; X58.XXXA Exposure to other specified factors, initial encounter; Y93.89 Activity, other specified; Y92.89 Other specified places as the place of occurrence of the external cause; Y99.8 Other external cause status

== ENCOUNTER 2019-09-08 22:54 | Emergency (ER) | payer MEDICAID ==
[2019-09-08] MEDS ORDERED: oxyCODONE /ACETAMINOPHEN 5-325MG TAB PO ONE (23:31)
[2019-09-08] MEDS ORDERED: MORPHINE 4 MG/1 ML INJ IM ONE (23:31)
--- NOTE | 2019-09-08 23:31 | Emergency Department Report ---
ED Neck Pain/Injury HPI - General Chief Complaint: Neck Pain/Injury Stated Complaint: NECK PAIN Time Seen by Provider: 09/08/19 23:10 Source: patient, EMS, old records reviewed Mode of arrival: Stretcher Limitations: Physical Limitation - History of Present Illness Initial Comments: Mr. Recinos is a 72-year-old female male with history of end-stage renal disease on hemodialysis, anemia, hypertension, atrial fibrillation, DVT, COPD, diabetes mellitus peripheral vascular disease status post left arm amputation who presents with neck and back pain. He has tingling in his right extremity. Neck and back pain has been present for over a year's time. He has a prescription for oxycodone his normal medication. He will be unable to fill this prescriptio n until . He has been in his normal state of health. He states that he has never felt better. He arrived per EMS. Patient is bedbound. MD Complaint: neck pain -: Gradual, This afternoon Place: home Severity: moderate Quality: aching Improves With: none Worsens With: none Associated Symptoms: tingling (Tingling in the right hand) - Related Data Previous Rx's Medication Instructions Recorded Last Taken Type Epoetin Prashant 10,000 Unit [Procrit] 10,000 unit SUB-Q KATERYNA PRN vial 05/22/19 Unknown Rx Acetaminophen [Acetaminophen TAB] 1 tab PO Q4H PRN #15 tablet 07/08/19 Unknown Rx AtorvaSTATin [Lipitor] 40 mg PO QHS #30 07/23/19 Unknown Rx Lidocain2.5%/Prilocai2.5% [Emla] 1 applic TP MoWeFr tube 07/23/19 Unknown Rx amLODIPine 20 mg PO DAILY #30 07/23/19 Unknown Rx bisacodyL [Dulcolax tab] 5 mg PO DAILY PRN #10 tab 07/29/19 Unknown Rx Sodium Phosphate,[place]-Dibasic 133 ml RC ONCE #1 enema 07/30/19 Unknown Rx [Fleet Enema] Metoprolol [Lopressor TAB] 25 mg PO BID #30 tablet 08/24/19 Unknown Rx Oxycodone HCl [oxyCODONE] 10 mg PO Q6H PRN #14 tab 08/25/19 Unknown Rx Allergies Allergy/AdvReac Type Severity Reaction Status Date / Time aspirin Allergy Unknown Verified 02/20/19 22:06 pork derived (porcine) Allergy Rash Verified 02/20/19 22:06 venom-honey bee Allergy Anaphylaxis Verified 02/20/19 22:06 [bee venom (honey bee)] Pork/Porcine Containing AdvReac Severe Nausea,VOMI Verified 02/20/19 22:06 Products TING ED Review of Systems ROS: Stated complaint: NECK PAIN Other details as noted in HPI Comment: All other systems reviewed and negative Constitutional: denies: fever, malaise Respiratory: denies: cough Cardiovascular: denies: chest pain ED Past Medical Hx - Past Medical History Previous Medical History?: Yes Hx Hypertension: Yes Hx Heart Attack/AMI: No Hx Congestive Heart Failure: Yes Hx Diabetes: Yes Hx Deep Vein Thrombosis: Yes Hx Pulmonary Embolism: No Hx Liver Disease: Yes Hx Renal Disease: No Hx Arthritis: Yes (generalized) Hx Seizures: No Hx Kidney Stones: No Hx Psychiatric Treatment: Yes (PTSD) Hx Asthma: No Hx COPD: Yes Hx Tuberculosis: No Hx HIV: No Additional medical history: 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 abd surgery after war related ingury partial "stomach removal'. Left upper extremity amputation below elbow - Social History Smoking Status: Never Smoker Substance Use Type: None - Medications Home Medications: Home Medications Medication Instructions Recorded Confirmed Last Taken Type Epoetin Prashant 10,000 Unit [Procrit] 10,000 unit SUB-Q KATERYNA PRN vial 05/22/19 07/09/19 Unknown Rx Acetaminophen [Acetaminophen TAB] 1 tab PO Q4H PRN #15 tablet 07/08/19 07/09/19 Unknown Rx AtorvaSTATin [Lipitor] 40 mg PO QHS #30 07/23/19 Unknown Rx Lidocain2.5%/Prilocai2.5% [Emla] 1 applic TP MoWeFr tube 07/23/19 Unknown Rx amLODIPine 20 mg PO DAILY #30 07/23/19 Unknown Rx bisacodyL [Dulcolax tab] 5 mg PO DAILY PRN #10 tab 07/29/19 Unknown Rx Sodium Phosphate,[place]-Dibasic 133 ml RC ONCE #1 enema 07/30/19 Unknown Rx [Fleet Enema] Metoprolol [Lopressor TAB] 25 mg PO BID #30 tablet 08/24/19 Unknown Rx Oxycodone HCl [oxyCODONE] 10 mg PO Q6H PRN #14 tab 08/25/19 Unknown Rx ED Physical Exam - General Limitations: Physical Limitation General appearance: alert, in no apparent distress, other (Awake alert no acute distress uses right arm fluidly) - Head Head exam: Present: atraumatic, normocephalic - Eye Eye exam: Present: normal appearance - ENT ENT exam: Present: mucous membranes moist - Neck Neck exam: Present: normal inspection, full ROM - Respiratory Respiratory exam: Present: normal lung sounds bilaterally. Absent: respiratory distress, wheezes, rales, rhonchi - Cardiovascular Cardiovascular Exam: Present: regular rate, normal rhythm, normal heart sounds. Absent: rubs, gallop - GI/Abdominal GI/Abdominal exam: Present: soft, normal bowel sounds. 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 Absent: rash ED Course Vital Signs 09/08/19 23:10 Respiratory 18 Rate ED Medical Decision Making - Medical Decision Making Mr. Recinos appears well considering his several comorbidities.. Believe that he presents with chronic neck and back pain. Admittedly he has been to 2 other hospitals within the last week for similar concerns. He explains that even if I provided a prescription for oxycodone, the prescription will not be filled until . He currently has a prescription for oxycodone provided by another physician. He received morphine IM and oxycodone in the emergency department. Discharged home. Critical care attestation.: If time is entered above; I have spent that time in minutes in the direct care of this critically ill patient, excluding procedure time. ED Disposition Clinical Impression: Chronic neck and back pain Disposition: TO HOME OR SELFCARE Is pt being admited?: No Does the pt Need Aspirin: No Condition: Stable Referrals: HUGO FELIZ MD [Primary Care Provider] - 3-5 Days
[2019-09-09 00:14] VITALS: BP 156/89
== END 2019-09-09 04:00 | disposition home or self-care (01) ==
LOC: ED 22:54
DX: G89.29 Other chronic pain (principal); E11.22 Type 2 diabetes mellitus with diabetic chronic kidney disease; I12.0 Hypertensive chronic kidney disease with stage 5 chronic kidney disease or end stage renal disease; N18.6 End stage renal disease; J44.9 Chronic obstructive pulmonary disease, unspecified; Z91.018 Allergy to other foods; Z88.6 Allergy status to analgesic agent; Z91.030 Bee allergy status
CPT/HCPCS: 96372; 99283; J2270

== ENCOUNTER 2019-09-09 23:17 | Observation (INO) | payer MEDICAID ==
--- NOTE | 2019-09-09 23:44 | Emergency Department Report ---
ED General Adult HPI - General Stated complaint: ARM TINGLING Time Seen by Provider: 09/09/19 23:37 Source: patient, old records reviewed Mode of arrival: Stretcher Limitations: No Limitations - History of Present Illness Initial comments: CC: "Something has to be wrong. I need CT scan or MRI." HPI: Mr. Herrera is a 72 yo male with hx of ESRD on HD, Atrial fibrillation, CHF, IDDDM, chronic neck back pain who returns to the ER with neck and back pain. He has right hand tingling which is intermittent. He has been unable to fill prescription for oxycodone for unknown reason. He has been bed bound for at least a year. No new trauma. No paralysis or trouble with speech. He arrives per EMS. Previous history of surgeries to the cervical and lumbar spine -: Gradual, days(s) (Several days) Location: neck, back Quality: other (Tingling in right hand constant neck and back pain) Consistency: constant Improves with: none Worsens with: none Associated Symptoms: denies other symptoms - Related Data Previous Rx's Medication Instructions Recorded Last Taken Type Epoetin Prashant 10,000 Unit [Procrit] 10,000 unit SUB-Q KATERYNA PRN vial 05/22/19 Unknown Rx Acetaminophen [Acetaminophen TAB] 1 tab PO Q4H PRN #15 tablet 07/08/19 Unknown Rx AtorvaSTATin [Lipitor] 40 mg PO QHS #30 07/23/19 Unknown Rx Lidocain2.5%/Prilocai2.5% [Emla] 1 applic TP MoWeFr tube 07/23/19 Unknown Rx amLODIPine 20 mg PO DAILY #30 07/23/19 Unknown Rx bisacodyL [Dulcolax tab] 5 mg PO DAILY PRN #10 tab 07/29/19 Unknown Rx Sodium Phosphate,[place]-Dibasic 133 ml RC ONCE #1 enema 07/30/19 Unknown Rx [Fleet Enema] Metoprolol [Lopressor TAB] 25 mg PO BID #30 tablet 08/24/19 Unknown Rx Oxycodone HCl [oxyCODONE] 10 mg PO Q6H PRN #14 tab 08/25/19 Unknown Rx Allergies Allergy/AdvReac Type Severity Reaction Status Date / Time aspirin Allergy Unknown Verified 02/20/19 22:06 pork derived (porcine) Allergy Rash Verified 02/20/19 22:06 venom-honey bee Allergy Anaphylaxis Verified 02/20/19 22:06 [bee venom (honey bee)] Pork/Porcine Containing AdvReac Severe Nausea,VOMI Verified 02/20/19 22:06 Products TING ED Review of Systems ROS: Stated complaint: ARM TINGLING Other details as noted in HPI Comment: All other systems reviewed and negative Constitutional: denies: fever, malaise Respiratory: denies: cough Cardiovascular: denies: chest pain Gastrointestinal: denies: abdominal pain Musculoskeletal: back pain Neurological: paresthesias ED Past Medical Hx - Past Medical History Previous Medical History?: Yes Hx Hypertension: Yes Hx Heart Attack/AMI: No Hx Congestive Heart Failure: Yes Hx Diabetes: Yes Hx Deep Vein Thrombosis: Yes Hx Pulmonary Embolism: No Hx Liver Disease: Yes Hx Renal Disease: No Hx Arthritis: Yes (generalized) Hx Seizures: No Hx Kidney Stones: No Hx Psychiatric Treatment: Yes (PTSD) Hx Asthma: No Hx COPD: Yes Hx Tuberculosis: No Hx HIV: No Additional medical history: 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 abd surgery after war related ingury partial "stomach removal'. Left upper extremity amputation below elbow - Social History Smoking Status: Never Smoker Substance Use Type: None - Medications Home Medications: Home Medications Medication Instructions Recorded Confirmed Last Taken Type Epoetin Prashant 10,000 Unit [Procrit] 10,000 unit SUB-Q KATERYNA PRN vial 05/22/19 07/09/19 Unknown Rx Acetaminophen [Acetaminophen TAB] 1 tab PO Q4H PRN #15 tablet 07/08/19 07/09/19 Unknown Rx AtorvaSTATin [Lipitor] 40 mg PO QHS #30 07/23/19 Unknown Rx Lidocain2.5%/Prilocai2.5% [Emla] 1 applic TP MoWeFr tube 07/23/19 Unknown Rx amLODIPine 20 mg PO DAILY #30 07/23/19 Unknown Rx bisacodyL [Dulcolax tab] 5 mg PO DAILY PRN #10 tab 07/29/19 Unknown Rx Sodium Phosphate,[place]-Dibasic 133 ml RC ONCE #1 enema 07/30/19 Unknown Rx [Fleet Enema] Metoprolol [Lopressor TAB] 25 mg PO BID #30 tablet 08/24/19 Unknown Rx Oxycodone HCl [oxyCODONE] 10 mg PO Q6H PRN #14 tab 08/25/19 Unknown Rx ED Physical Exam - General General appearance: alert, in no apparent distress, other (Appears chronically ill frail speaking fluidly) - Head Head exam: Present: atraumatic, normocephalic - Eye Eye exam: Present: normal appearance - ENT ENT exam: Present: mucous membranes moist - Neck Neck exam: Present: normal inspection - Respiratory Respiratory exam: Present: normal lung sounds bilaterally. Absent: respiratory distress, wheezes, rales, rhonchi - Cardiovascular Cardiovascular Exam: Present: regular rate, normal rhythm. Absent: rubs, gallop - GI/Abdominal GI/Abdominal exam: Present: soft, normal bowel sounds. Absent: distended, tenderness, guarding, rebound - Rectal Rectal exam: Present: deferred - Extremities Exam Extremities exam: Present: normal inspection, other (AV fistula right forearm positive thrill positive bruit intact it network architect in the right hand intact sensation to light touch left arm amputation) - Back Exam Back exam: Present: normal inspection, full ROM - Neurological Exam Neurological exam: Present: alert, oriented X3 - Expanded Neurological Exam Expanded Patient oriented to: Present: person, place, time Speech: Present: fluid speech Cranial nerves: EOM's Intact: Normal Cerebellar function: Finger to Nose: Normal Sensory exam: Upper Extremity Light Touch: Normal Motor strength exam: RUE: 5, LUE: 5, RLE: 5, LLE: 5 Best Eye Response (Fulda): (4) open spontaneously Best Motor Response (Jesus): (6) obeys commands Best Verbal Response (Fulda): (5) oriented Jesus Total: 15 - Psychiatric Psychiatric exam: Present: normal affect, normal mood - Skin Skin exam: Present: warm, dry, intact, normal color, other (Scaly skin lower extremities). Absent: rash ED Course Vital Signs 09/09/19 09/10/19 23:48 00:37 Temperature 98.0 F Pulse Rate 108 H Respiratory 20 20 Rate Blood Pressure 156/110 O2 Sat by Pulse 95 Oximetry ED Medical Decision Making - Lab Data Result diagrams: 09/10/19 00:29 09/10/19 00:29 - EKG Data 09/09/19 23:55 EKG obtained 2346 Sinus tachycardia rate 100 bpm leftward axis deviation prolonged QT interval no ST elevation nonischemic T wave pattern - Radiology Data Radiology results: report reviewed CT lumbar spine: Postsurgical changes L5-S1 no interval change from exam on March 2019 CT cervical spine: Excessive anterior posterior postoperative changes no significant interval change from prior exam March 2019 CT head no acute findings or interval change from August 2019 - Medical Decision Making 1. Hyperesthesia right hand tingling not typical for acute CVA, possible vascular steal syndrome with AV fistula in the right forearm, versus radiculopathy cervical 2. Chronic neck and back pain with previous history of neck and back surgeries does not appear changed per patient. Patient has had numerous ED encounters over several years time for neck and back pain which appears to be chronic in nature. 3. Hyperkalemia end-stage renal disease: Adolescent Counselor Dr. Nicole will consult, hyperkalemia treatment ordered Admitted to hospitalist Critical care attestation.: If time is entered above; I have spent that time in minutes in the direct care of this critically ill patient, excluding procedure time. ED Disposition Clinical Impression: Cervical radiculopathy, Chronic neck and back pain, Hyperkalemia Disposition: DC-09 OP ADMIT IP TO THIS HOSP Is pt being admited?: Yes Does the pt Need Aspirin: No Condition: Stable
[2019-09-09] MEDS ORDERED: oxyCODONE /ACETAMINOPHEN 5-325MG TAB PO ONE (23:55)
[2019-09-10 00:53] LABS: Basophils % (Auto) 0.6 % (0.0-1.8); Eosinophils # (Auto) 0.4 K/mm3 (0.0-0.4); Lymphocytes % (Auto) 22.8 % (13.4-35.0); Mean Corpuscular HGB Conc 31 % (32-34); Mean Corpuscular Volume 100 fl (84-94); Monocytes # (Auto) 0.5 K/mm3 (0.0-0.8); Monocytes % (Auto) 10.2 % (0.0-7.3); Platelet Count 141 K/mm3 (140-440); Red Blood Count 2.91 M/mm3 (3.65-5.03); Red Cell Distribution Width 16.9 % (13.2-15.2)
[2019-09-10 01:13] LABS: Albumin 3.4 g/dL (3.9-5); Calcium 9.5 mg/dL (8.4-10.2)
--- NOTE | 2019-09-10 01:47 | Cat Scan Report ---
CT head/brain wo con INDICATION / CLINICAL INFORMATION: LEFT Arm Paresthesia No Trauma. TECHNIQUE: All CT scans at this location are performed using CT dose reduction for ALARA by means of automated e xposure control. COMPARISON: 08/22/2019 FINDINGS: Mild cerebral atrophy is present. No mass or mass effect is seen. There is no evidence of intracrania l hemorrhage. No obvious area of infarction is identified. Visualized paranasal sinuses are clear. IMPRESSION: No acute findings or interval change from 08/22/2019 Signer Name: Anthony Soto MD FACR Signed: 09/10/2019 1:43 AM Workstation Name: [id number]
--- NOTE | 2019-09-10 01:55 | Cat Scan Report ---
CT cervical spine wo con INDICATION / CLINICAL INFORMATION: Pt complains of neck pain with hand tingling on RIGHT arm. No Trauma.. TECHNIQUE: All CT scans at this location are performed using CT dose reduction for ALARA by means of automated e xposure control. COMPARISON: 04/01/2019 FINDINGS: Extensive anterior and posterior postoperative changes seen throughout the cervical region. There are erosions of the tip of the odontoid process unchanged. No acute fracture is identified. No significa nt spinal stenosis is seen. IMPRESSION: Extensive anterior and posterior post operative changes in the cervical spine. Overall no significant interval change from prior examination dated 04/01/2019 Signer Name: Anthony Soto MD FACR Signed: 09/10/2019 1:50 AM Workstation Name: [id number]
--- NOTE | 2019-09-10 01:59 | Cat Scan Report ---
CT lumbar spine wo con INDICATION / CLINICAL INFORMATION: Pt complains of lower back pain. Hx of previous back surgery.. TECHNIQUE: All CT scans at this location are performed using CT dose reduction for ALARA by means of automated e xposure control. COMPARISON: 04/01/2019 FINDINGS: Postsurgical changes seen at L5-S1. Mild diffuse degenerative changes seen throughout the lumbar dick on. No evidence of a fracture or significant spinal stenosis. IMPRESSION: Postsurgical change at L5-S1. No interval change from prior examination dated 04/01/2019 Signer Name: Anthony Soto MD FACR Signed: 09/10/2019 1:54 AM Workstation Name: [id number]
[2019-09-10] MEDS ORDERED: CALCIUM GLUCONATE 1,000 MG in SODIUM CHLORIDE 0.9% 100 ML IV ONE (02:09)
[2019-09-10] MEDS ORDERED: DEXTROSE 50% IN WATER (25GM) 50 ML SYRINGE IV ONE (02:09)
[2019-09-10] MEDS ORDERED: INSULIN REGULAR, HUMAN 100 UNITS/1 ML IV ONE (02:09)
[2019-09-10] MEDS ORDERED: SODIUM POLYSTYRENE 15 GM/60 ML ORAL LIQD PO ONE (02:09)
[2019-09-10] MEDS ORDERED: ACETAMINOPHEN 325 MG TAB PO PRN (02:54)
[2019-09-10] MEDS ORDERED: ONDANSETRON 4 MG/2 ML INJ IV PRN (02:54)
--- NOTE | 2019-09-10 02:56 | History and Physical Report ---
History of Present Illness History of present illness: 72-year-old man with a history of end-stage renal disease on dialysis, hypertension, CHF, A. fib, coronary artery disease, PTSD, COPD, chronic pain, wheelchair-bound comes emergency room for evaluation. He complains of shortness of breath, fatigue, pain all over including his back, arms, legs, chest, all over. Patient states that he had dialysis on Monday, they took off 2 L, however they usually take 3 L off. The patient is hyperkalemic, experiencing shortness of breath for which she will be admitted Review of systems Constitutional: no weight loss, chills, fever Ears, eyes, nose, mouth and throat: no nasal congestion, no nasal discharge, no sinus pressure, no vision change, no red eye. Neck: No neck pain or rigidity. Cardiovascular: no palpitations Respiratory: no cough Gastrointestinal: no hematochezia, abdominal pain Genitourinary : no frequency , no hematuria Musculoskeletal: no joint swelling Integumentary: no rash, no pruritis Neurological: no parathesias, no focal weakness Endocrine: no cold or heat intolerance, no polyuria or polydipsia Hematologic/Lymphatic: no easy bruising, no easy bleeding, no gland swelling Allergic/Immunologic: no urticaria, no angioedema. PAST MEDICAL HISTORY: end-stage renal disease on dialysis, hypertension, CHF, A. fib, COPD, PVD, diabetes PAST SURGICAL HISTORY: clot removal in left upper extremity left arm amputation, multiple fingers amputation, AV fistula, neck and back surgery SOCIAL HISTORY: Denies alcohol, drugs, tobacco FAMILY HISTORY: Hypertension Medications and Allergies Allergies Allergy/AdvReac Type Severity Reaction Status Date / Time aspirin Allergy Unknown Verified 02/20/19 22:06 pork derived (porcine) Allergy Rash Verified 02/20/19 22:06 venom-honey bee Allergy Anaphylaxis Verified 02/20/19 22:06 [bee venom (honey bee)] Pork/Porcine Containing AdvReac Severe Nausea,VOMI Verified 02/20/19 22:06 Products TING Home Medications Medication Instructions Recorded Confirmed Last Taken Type Epoetin Prashant 10,000 Unit [Procrit] 10,000 unit SUB-Q KATERYNA PRN vial 05/22/19 07/09/19 Unknown Rx Acetaminophen [Acetaminophen TAB] 1 tab PO Q4H PRN #15 tablet 07/08/19 07/09/19 Unknown Rx AtorvaSTATin [Lipitor] 40 mg PO QHS #30 07/23/19 Unknown Rx Lidocain2.5%/Prilocai2.5% [Emla] 1 applic TP MoWeFr tube 07/23/19 Unknown Rx amLODIPine 20 mg PO DAILY #30 07/23/19 Unknown Rx bisacodyL [Dulcolax tab] 5 mg PO DAILY PRN #10 tab 07/29/19 Unknown Rx Sodium Phosphate,[place]-Dibasic 133 ml RC ONCE #1 enema 07/30/19 Unknown Rx [Fleet Enema] Metoprolol [Lopressor TAB] 25 mg PO BID #30 tablet 08/24/19 Unknown Rx Oxycodone HCl [oxyCODONE] 10 mg PO Q6H PRN #14 tab 08/25/19 Unknown Rx oxyCODONE /ACETAMINOPHEN [Percocet 1 tab PO BID PRN #6 tablet 09/11/19 Unknown Rx 5/325 mg] Active Meds: Active Medications Sodium Bicarbonate (Sodium Bicarbonate 50meq Syringe) 50 meq IV ONCE ONE Stop: 09/10/19 03:01 Exam - Physical Exam Narrative exam: General Apperance: The patient lying in bed, breathing comfortable HEENT: Normocephalic, atraumatic. Pupils equally round and reactive to light, EOMI, Left subconjunctival hemorrhage no sclericterus or JVD or thyromegaly or nodule. , no carotid bruit, mucous membranes moist, no exudate or erythema Heart: S1-S2, regular is rhythm Lungs: clear bilaterally, breathing comfortable Abdomen: Positive bowel sounds, soft, nontender, nondistended, no organomegaly Extremities: amputation of the left forearm, No edema cyanosis clubbing Skin: no rash, nodule, warm and dry Neuro: cranial nerves 2-12 intact, speech is fluent, motor/sensory intact - Constitutional Vitals: Temp Pulse Resp BP Pulse Ox 98.0 F 108 H 20 156/110 95 09/09/19 23:48 09/09/19 23:48 09/10/19 00:37 09/09/19 23:48 09/09/19 23:48 Results - Labs CBC & Chem 7: 09/11/19 09:11 09/11/19 09:11 Labs: Abnormal lab results 03/24/20 03/24/20 Range/Units 00:29 00:29 RBC 2.91 L (3.65-5.03) M/mm3 Hgb 9.0 L (11.8-15.2) gm/dl Hct 29.0 L (35.5-45.6) % MCV 100 H (84-94) fl MCHC 31 L (32-34) % RDW 16.9 H (13.2-15.2) % [place] % (Auto) 10.2 H (0.0-7.3) % Eos % (Auto) 9.0 H (0.0-4.3) % Lymph # 1.0 L (1.2-5.4) K/mm3 Sodium 136 L (137-145) mmol/L Potassium 6.5 H* (3.6-5.0) mmol/L Chloride 95.9 L (98-107) mmol/L BUN 39 H (9-20) mg/dL Creatinine 5.6 H (0.8-1.5) mg/dL AST 48 H (5-40) units/L Alkaline Phosphatase 172 H (35-129) units/L Albumin 3.4 L (3.9-5) g/dL - Imaging and Cardiology CT Scan - head: report reviewed Assessment and Plan CT cervical and lumbar spine reviewed Assessment Hyperkalemia/End-stage renal disease on dialysis patient to recieve cocktail for hyperkalemia, follow potassium level renal was consulted for dialysis Chronic pain, start percocet A. fib, stable Not a candidate for anticoagulation secondary to frequent falls Coronary artery disease Continue appropriate outpatient medications, check cardiac enzyme Diabetes Check fingersticks, start sliding scale CHF, Chronic, systolic Hypertension, continue outpatient medications PTSD Thrombocytopenia imprving fro 08/22, continue to monitor PVD s/p left arm amputation DVT prophylaxis
[2019-09-10] MEDS ORDERED: SODIUM BICARB 8.4% 50 MEQ/50 ML SYRINGE IV ONE (03:00)
[2019-09-10] MEDS ORDERED: DEXTROSE 50% IN WATER (25GM) 50 ML SYRINGE IV PRN (03:50)
[2019-09-10 05:49] LABS: Creatine Kinase MB 4.6 ng/mL (0.0-4.0)
[2019-09-10] MEDS: oxyCODONE /ACETAMINOPHEN 5-325MG TAB PO PRN ×3 (06:10→23:01)
[2019-09-10 07:01] LABS: Chol/HDL Ratio 1.94 %
[2019-09-10] MEDS: INSULIN LISPRO 100 UNIT/ML SUB-Q SCH ×4 (07:30→22:59)
[2019-09-10] MEDS ORDERED: SODIUM CHLORIDE 0.9% 500 ML 500 ML IV ONE (08:12)
--- NOTE | 2019-09-10 08:21 | Consultation ---
History of Present Illness - Reason for Consult Consult date: 09/10/19 end stage renal disease - History of Present Illness This is a 72 year old male patient well known to our service with pmh s ignificant for hypertension, end stage renal disease on HD (/ at [facility]), Type 2 diabetes mellitus, chronic paroxysmal Afib, chronic bronchospasm, PTSD, chronic pain, CHF, obstructive sleep apnea (noncompliant with home cpap). He has had multiple hospital admissions between [facility] and [facility] in the past couple of months. He was most recently discharged from [facility] on 09/02 after a six day admission for volume overload 2/2 noncompliance with scheduled HD and also had complaints of neck and back pain at that time. He returned to [facility] ED on 09/03 but was not admitted to the hospital and subsequently discharged home from the ED. He presented to [facility] ED on 09/08 with complaints of shortness of breath and chronic pain. He denies chest pain, fever, chills, nausea, vomiting, diarrhea, abdominal pain, rash. At time of admission and consultation, labs significant for hemoglobin 9.0, potassium 6.5, sodium 136, creatinine 5.6, BUN 39, troponin 0.481. CT of head negative for any acute findings. CT lumbar spine and cervical spine showed no changes from prior imaging in March 2019. Of note, pt had workup regarding neck pain at [facility] during August 2019 admission that was discussed with neurosurgery and pt was advised to f/u with his PCP as outpatient and given neck brace. Nephrology was consulted for further evaluation and treatment of end stage renal disease and maintenance HD. Past History Past Medical History: atrial fib, diabetes, dialysis, ESRD, heart failure, hypertension, other (chronic pain, chronic bronchospasm, obstructive sleep apnea, medical noncompliance) Social history: , lives with family Medications and Allergies Allergies Allergy/AdvReac Type Severity Reaction Status Date / Time aspirin Allergy Unknown Verified 02/20/19 22:06 pork derived (porcine) Allergy Rash Verified 02/20/19 22:06 venom-honey bee Allergy Anaphylaxis Verified 02/20/19 22:06 [bee venom (honey bee)] Pork/Porcine Containing AdvReac Severe Nausea,VOMI Verified 02/20/19 22:06 Products TING Home Medications Medication Instructions Recorded Confirmed Last Taken Type Epoetin Prashant 10,000 Unit [Procrit] 10,000 unit SUB-Q KATERYNA PRN vial 05/22/19 07/09/19 Unknown Rx Acetaminophen [Acetaminophen TAB] 1 tab PO Q4H PRN #15 tablet 07/08/19 07/09/19 Unknown Rx AtorvaSTATin [Lipitor] 40 mg PO QHS #30 07/23/19 Unknown Rx Lidocain2.5%/Prilocai2.5% [Emla] 1 applic TP MoWeFr tube 07/23/19 Unknown Rx amLODIPine 20 mg PO DAILY #30 07/23/19 Unknown Rx bisacodyL [Dulcolax tab] 5 mg PO DAILY PRN #10 tab 07/29/19 Unknown Rx Sodium Phosphate,[place]-Dibasic 133 ml RC ONCE #1 enema 07/30/19 Unknown Rx [Fleet Enema] Metoprolol [Lopressor TAB] 25 mg PO BID #30 tablet 08/24/19 Unknown Rx Oxycodone HCl [oxyCODONE] 10 mg PO Q6H PRN #14 tab 08/25/19 Unknown Rx Active Meds: Active Medications Acetaminophen (Tylenol) 650 mg PO Q4H PRN PRN Reason: Pain MILD(1-3)/Fever >100.5/DOUGLAS Dextrose (D50w (25gm) Syringe) 0 ml IV Q30MIN PRN; Protocol PRN Reason: Hypoglycemia Sodium Chloride (Nacl 0.9% 500 Ml) 500 mls @ 999 mls/hr IV ONCE ONE Stop: 09/10/19 08:42 Insulin Human Lispro (Humalog) 0 unit SUB-Q ACHS [facility]; Protocol Ondansetron HCl (Zofran) 4 mg IV Q8H PRN PRN Reason: Nausea And Vomiting Oxycodone/Acetaminophen (Percocet 5/325) 1 tab PO Q4H PRN PRN Reason: Pain, Moderate (4-6) Last Admin: 09/10/19 06:10 Dose: 1 tab Documented by: Sodium Chloride (Sodium Chloride Flush Syringe 10 Ml) 10 ml IV BID BEAN Sodium Chloride (Sodium Chloride Flush Syringe 10 Ml) 10 ml IV PRN PRN PRN Reason: LINE FLUSH Review of Systems Constitutional: no weight loss, no weight gain, no fever, no chills Ears, nose, mouth and throat: no nasal discharge, no epistaxis Cardiovascular: no chest pain, no palpitations, no syncope Respiratory: shortness of breath, no cough Gastrointestinal: no abdominal pain, no nausea, no vomiting, no diarrhea Musculoskeletal: neck pain, no muscle weakness, no limitation of motion Integumentary: no rash, no wounds Exam - Vital Signs Vital signs: Vital Signs Temp Pulse Resp BP Pulse Ox 98.0 F 108 H 20 156/110 96 09/09/19 23:48 09/09/19 23:48 09/09/19 23:48 09/09/19 23:48 09/09/19 23:48 - General Appearance General appearance: well-developed, appears stated age, chronically ill EENT: PERRL, mucous membranes moist Neck: Present: neck supple, trachea midline Respiratory: Clear to Ascultation, Decreased Breath Sounds (bibasilar) Heart: regular, tachycardia, S1S2, no murmurs Gastrointestinal: Present: normal, normoactive bowel sounds. Absent: tenderness, distended, masses Integumentary: no rash, warm and dry, other (R arm AVF) Neurologic: no focal deficit, alert and oriented x3 Musculoskeletal: Present: other (L forearm amputation, FROM all other extremitie s) Psychiatric: cooperative Results - Lab Results 09/10/19 00:29 09/10/19 13:49 Most recent lab results Calcium 9.5 mg/dL (8.4-10.2) 09/10/19 00:29 Assessment and Plan 1.End stage renal disease on HD: T/T/Sa schedule at [facility]. Last outpatient HD 09/06. Multiple hospitalizations 2/2 volume overload due to missed HD treatments. Strict I&O. Meds dosage based on GFR. Hemodialysis: 09/09. 2. FEN: Volume overload, HD today, UF with HD as tolerated, monitor. Hyperkalemia, cocktail given in ED, HD today, monitor. Mild hyponatremia, monitor. Monitor lytes and volume status. 3. Chronic pain/neck pain: Lumbar and Cervical Spine CT revealed no changes from previous imaging. Recent workup at [facility]. 4. A fib: 5. Chronic CHF w/ reduced EF: Fluid restriction. Monitor volume status. 6. Type 2 diabetes mellitus: Monitor blood glucose. 7. Elevated troponins, chronic: 8. Anemia of chronic disease: Epogen with HD as needed. Monitor. 9. Hypertension: BP is fluctuating. Pt hypotensive at time of consultation requiring fluid bolus. Monitor BP closely. 10. Thrombocytopenia: No s/s bleeding. Monitor.
--- NOTE | 2019-09-10 08:33 | Progress Note ---
Assessment and Plan Assessment and plan: CT cervical and lumbar spine reviewed --Hypotension; brief episode Improved after normal saline bolus Closely monitor blood pressures Hold antihypertensives --Malignant hypertension; Continue current antihypertensives, PRN medications --Hyperkalemia patient to recieve cocktail for hyperkalemia, follow potassium level , hemodialysis today --End-stage renal disease on dialysis HD per schedule nephrology following --Chronic pain; Pain management and supportive care --A. fib; rate controlled Continue beta-blockers Not a candidate for anticoagulation due to recurrent falls --History of coronary artery disease Continue current cardiac medications Cardiology consult if needed --Chronic elevation of troponins; NSTEMI type II Secondary to end-stage renal disease --Type II diabetes; Accu-Chek sliding scale coverage ADA diet and insulin as needed --CHF, Chronic, systolic; Hemodialysis per schedule, low-sodium diet Fluid restriction --History of hypertension; Closely monitor blood pressures adjust as needed --Thrombocytopenia; Monitor platelet levels no evidence of bleeding imprving fro 08/22, continue to monitor --PVD s/p left arm amputation; Supportive care --DVT prophylaxis; Heparin renal dose Monitor closely and adjust management as needed Plan of care reviewed with the patient and his nurse History Interval history: I have seen and examined the patient at the bedside this morning Patient has been running low blood pressures, received fluid bolus With mild improvement, patient is asymptomatic Except for generalized body pains, asking for more pain medications Patient is scheduled for dialysis today No new complaints Vital signs reviewed Hospitalist Physical - Constitutional Vitals: Temp Pulse Resp BP Pulse Ox 97.4 F L 110 H 18 46/16 100 09/10/19 05:53 09/10/19 08:06 09/10/19 05:53 09/10/19 08:06 09/10/19 08:06 General appearance: Present: no acute distress, cachectic, disheveled - EENT Eyes: Present: PERRL, EOM intact - Neck Neck: Present: supple, normal ROM - Respiratory Respiratory effort: normal Respiratory: bilateral: diminished, negative: rales, rhonchi, wheezing - Cardiovascular Rhythm: regular Heart Sounds: Present: S1 & S2 - Extremities Extremities: no ischemia, No edema - Abdominal General gastrointestinal: soft, non-tender, non-distended, normal bowel sounds - Integumentary Integumentary: Present: clear, warm - Psychiatric Psychiatric: appropriate mood/affect, cooperative - Neurologic Neurologic: CNII-XII intact, moves all extremities ARSALAN score - Arsalan Score Age > 65: (1) Yes Aspirin use within the Past 7 Days: (1) Yes 3 or more CAD Risk Factors: (1) Yes 2 or more Angina events in past 24 hrs: (1) Yes Known CAD with more than 50% Stenosis: (0) No Elevated Cardiac Markers: (1) Yes ST Deviation Greater than 0.5mm: (0) No ARSALAN Score: 5 Results - Labs CBC & Chem 7: 09/10/19 00:29 09/10/19 13:49 Labs: Laboratory Last Values WBC 4.5 K/mm3 (4.5-11.0) 09/10/19 00: RBC 2.91 M/mm3 (3.65-5.03) L 09/10/19 00: Hgb 9.0 gm/dl (11.8-15.2) L 09/10/19 00: Hct 29.0 % (35.5-45.6) L 09/10/19 00: MCV 100 fl (84-94) H 09/10/19 00: MCH 31 pg (28-32) 09/10/19 00: MCHC 31 % (32-34) L 09/10/19 00: RDW 16.9 % (13.2-15.2) H 09/10/19 00:29 Plt Count 141 K/mm3 (140-440) 09/10/19 00: Lymph % (Auto) 22.8 % (13.4-35.0) 09/10/19 00: [place] % (Auto) 10.2 % (0.0-7.3) H 09/10/19 00:29 Eos % (Auto) 9.0 % (0.0-4.3) H 09/10/19 00:29 Baso % (Auto) 0.6 % (0.0-1.8) 09/10/19 00: Lymph # 1.0 K/mm3 (1.2-5.4) L 09/10/19 00: [place] # 0.5 K/mm3 (0.0-0.8) 09/10/19 00: Eos # 0.4 K/mm3 (0.0-0.4) 09/10/19 00:29 Baso # 0.0 K/mm3 (0.0-0.1) 09/10/19 00:29 Seg Neutrophils % 57.4 % (40.0-70.0) 09/10/19 00:29 Seg Neutrophils # 2.6 K/mm3 (1.8-7.7) 09/10/19 00:29 Sodium 136 mmol/L (137-145) L 09/10/19 00:29 Potassium 6.5 mmol/L (3.6-5.0) H* 09/10/19 00:29 Chloride 95.9 mmol/L (98-107) L 09/10/19 00:29 Carbon Dioxide 23 mmol/L (22-30) 09/10/19 00:29 Anion Gap 24 mmol/L 09/10/19 00:29 BUN 39 mg/dL (9-20) H 09/10/19 00:29 Creatinine 5.6 mg/dL (0.8-1.5) H 09/10/19 00:29 Estimated GFR 12 ml/min 09/10/19 00:29 BUN/Creatinine Ratio 7 % 09/10/19 00:29 Glucose 83 mg/dL (75-100) 09/10/19 00:29 POC Glucose 161 (70-105) H 09/10/19 03:57 Calcium 9.5 mg/dL (8.4-10.2) 09/10/19 00:29 Total Bilirubin 0.50 mg/dL (0.1-1.2) 09/10/19 00:29 AST 48 units/L (5-40) H 09/10/19 00:29 ALT 26 units/L (7-56) 09/10/19 00:29 Alkaline Phosphatase 172 units/L (35-129) H 09/10/19 00:29 Total Creatine Kinase 82 units/L (55-170) 09/10/19 04:45 CK-MB (CK-2) 4.6 ng/mL (0.0-4.0) H 09/10/19 04:45 CK-MB (CK-2) Rel Index 5.6 (0-4) H 09/10/19 04:45 Troponin T 0.481 ng/mL (0.00-0.029) H* 09/10/19 04:45 Total Protein 7.7 g/dL (6.3-8.2) 09/10/19 00:29 Albumin 3.4 g/dL (3.9-5) L 09/10/19 00:29 Albumin/Globulin Ratio 0.8 % 09/10/19 00:29 Triglycerides 78 mg/dL (2-149) 09/10/19 04:45 Cholesterol 68 mg/dL (50-199) 09/10/19 04:45 LDL Cholesterol Direct 22 mg/dL (50-130) L 09/10/19 04:45 HDL Cholesterol 35 mg/dL (40-59) L 09/10/19 04:45 Cholesterol/HDL Ratio 1.94 % 09/10/19 04:45 Cordero/IV: IV Catheter Type [Right INT / Saline Lock External Jugular] Active Medications - Current Medications Current Medications: Generic Name Dose Route Start Last Admin Trade Name Freq PRN Reason Stop Dose Admin Acetaminophen 650 mg 09/10/19 02:54 Tylenol PO Q4H PRN Pain MILD(1-3)/Fever >100.5/DOUGLAS Dextrose 0 ml 09/10/19 03:50 D50w (25gm) Syringe IV Q30MIN PRN Hypoglycemia Protocol Sodium Chloride 500 mls @ 999 mls/hr 09/10/19 08:12 Nacl 0.9% 500 Ml IV 09/10/19 08:42 ONCE ONE Insulin Human Lispro 0 unit 09/10/19 07:30 Humalog SUB-Q ACHS BEAN Protocol Ondansetron HCl 4 mg 09/10/19 02:54 Zofran IV Q8H PRN Nausea And Vomiting Oxycodone/Acetaminophen 1 tab 09/10/19 02:54 09/10/19 06:10 Percocet 5/325 PO 1 tab Q4H PRN Administration Pain, Moderate (4-6) Sodium Chloride 10 ml 09/10/19 10:00 Sodium Chloride Flush Syringe 10 Ml IV BID BEAN Sodium Chloride 10 ml 09/10/19 02:54 Sodium Chloride Flush Syringe 10 Ml IV PRN PRN LINE FLUSH
[2019-09-10] MEDS: METOPROLOL TARTRATE 25 MG TAB PO SCH ×2 (10:00→23:01)
[2019-09-10] MEDS ORDERED: EPOETIN ALFA 10,000 UNIT/1 ML INJ SUB-Q PRN (10:33)
[2019-09-10] MEDS ORDERED: SODIUM CHLORIDE 0.9% 100 ML IV PRN (10:33)
[2019-09-10] MEDS ORDERED: MIDODRINE 5 MG TAB PO ONE (14:08)
[2019-09-10] MEDS ORDERED: SODIUM CHLORIDE 0.9% 250ML 0 ML ONE (15:25)
[2019-09-10] MEDS: MIDODRINE 5 MG TAB PO SCH (16:00)
[2019-09-10] MEDS: diphenhydrAMINE 25 MG CAP PO PRN (16:06)
[2019-09-10] MEDS ORDERED: SODIUM CHLORIDE 0.9% 1000 ML 2,000 ML ONE (19:10)
[2019-09-10] MEDS ORDERED: HEPARIN 5,000 UNIT/1 ML VIAL SUB-Q SCH (22:00)
[2019-09-11] MEDS: diphenhydrAMINE 25 MG CAP PO PRN (02:05)
[2019-09-11] MEDS: oxyCODONE /ACETAMINOPHEN 5-325MG TAB PO PRN ×2 (02:54→09:42)
[2019-09-11] MEDS: INSULIN LISPRO 100 UNIT/ML SUB-Q SCH ×2 (08:01→12:18)
--- NOTE | 2019-09-11 08:39 | Progress Note ---
Assessment and Plan 1.End stage renal disease on HD: TTS schedule at [facility]. Last outpatient HD 09/06. Multiple hospitalizations 2/2 hyperkalemia / volume overload due to missed HD treatments. Meds dosage based on GFR. Hemodialysis: 09/09. 2. FEN: Volume overload, s/p UF with HD yesterday, monitor. Hyperkalemia, s/p HD yesterday, monitor. Mild hyponatremia, monitor. Monitor lytes and volume status. 3. Hypotension: Midodrine. 4. Chronic pain/neck pain: Lumbar and Cervical Spine CT revealed no changes from previous imaging. Recent workup at [facility]. 5. Chronic A fib. 6. Chronic CHF w/ reduced EF: Fluid restriction. Monitor volume status. 7. Type 2 diabetes mellitus: Monitor blood glucose. 8. Elevated troponins, chronic: 9. Anemia of chronic disease: Epogen with HD as needed. Monitor. Subjective: Interval history: Patient was seen and examined at the bedside. No new complaint. Objective - Exam General appearance: well-developed, appears stated age, chronically ill HEENT: ELENI, mucous membranes moist Neck: trachea midline Respiratory: Clear to Ascultation Heart: rregular, tachycardia, S1S2, no murmurs Gastrointestinal: soft, normoactive bowel sounds, not tender, not distended Integumentary: no rash, warm and dry Neurologic: no focal deficit, alert and oriented x3 Ext: L forearm amputation, no edema Hemodialysis access: R arm AVF Subjective Date of service: 09/11/19 Objective - Vital Signs Vital signs: Vital Signs - 12hr 09/10/19 09/10/19 09/10/19 21:25 21:35 23:01 Temperature Pulse Rate 115 H Pulse Rate [ Apical] Pulse Rate [ From Monitor] Respiratory 18 Rate Blood Pressure O2 Sat by Pulse 100 Oximetry 09/10/19 09/11/19 09/11/19 23:51 02:54 04:07 Temperature 98.4 F Pulse Rate 114 H 116 H Pulse Rate [ Apical] Pulse Rate [ From Monitor] Respiratory 20 16 22 Rate Blood Pressure 132/100 137/99 O2 Sat by Pulse 98 100 Oximetry 09/11/19 09/11/19 09/11/19 06:00 08:01 08:26 Temperature Pulse Rate Pulse Rate [ 120 H Apical] Pulse Rate [ 117 H From Monitor] Respiratory 16 20 Rate Blood Pressure O2 Sat by Pulse 100 98 Oximetry - Lab 09/10/19 00:29 09/10/19 13:49 Most recent lab results Calcium 9.5 mg/dL (8.4-10.2) 09/10/19 00:29 Medications & Allergies - Medications Allergies/Adverse Reactions: Allergies aspirin Allergy (Verified 02/20/19 22:06) Unknown stomach cramps pork derived (porcine) Allergy (Verified 02/20/19 22:06) Rash venom-honey bee [bee venom (honey bee)] Allergy (Verified 02/20/19 22:06) Anaphylaxis Pork/Porcine Containing Products Adverse Reaction (Severe, Verified 02/20/19 22:06) Nausea,VOMITING Home Medications: Home Medications Medication Instructions Recorded Confirmed Last Taken Type Epoetin Prashant 10,000 Unit [Procrit] 10,000 unit SUB-Q KATERYNA PRN vial 05/22/19 07/09/19 Unknown Rx Acetaminophen [Acetaminophen TAB] 1 tab PO Q4H PRN #15 tablet 07/08/19 07/09/19 Unknown Rx AtorvaSTATin [Lipitor] 40 mg PO QHS #30 07/23/19 Unknown Rx Lidocain2.5%/Prilocai2.5% [Emla] 1 applic TP MoWeFr tube 07/23/19 Unknown Rx amLODIPine 20 mg PO DAILY #30 07/23/19 Unknown Rx bisacodyL [Dulcolax tab] 5 mg PO DAILY PRN #10 tab 07/29/19 Unknown Rx Sodium Phosphate,[place]-Dibasic 133 ml RC ONCE #1 enema 07/30/19 Unknown Rx [Fleet Enema] Metoprolol [Lopressor TAB] 25 mg PO BID #30 tablet 08/24/19 Unknown Rx Oxycodone HCl [oxyCODONE] 10 mg PO Q6H PRN #14 tab 08/25/19 Unknown Rx Active Medications: Generic Name Dose Route Start Last Admin Trade Name Freq PRN Reason Stop Dose Admin Acetaminophen 650 mg 09/10/19 02:54 Tylenol PO Q4H PRN Pain MILD(1-3)/Fever >100.5/DOUGLAS Atorvastatin Calcium 40 mg 09/10/19 22:00 09/10/19 23:01 Lipitor PO 40 mg QHS BEAN Administration Dextrose 0 ml 09/10/19 03:50 D50w (25gm) Syringe IV Q30MIN PRN Hypoglycemia Protocol Diphenhydramine HCl 25 mg 09/10/19 12:00 09/11/19 02:05 Benadryl PO 25 mg ONCE PRN Administration Itching DURING DIALYSIS Epoetin Prashant 10,000 unit 09/10/19 10:33 Procrit SUB-Q KATERYNA PRN hemodialysis Sodium Chloride 100 mls @ 999 mls/hr 09/10/19 10:33 Nacl 0.9% IV KATERYNA PRN Hypotension Insulin Human Lispro 0 unit 09/10/19 07:30 09/11/19 08:01 Humalog SUB-Q Not Given ACHS [facility] Protocol Metoprolol Tartrate 25 mg 09/10/19 10:00 09/10/19 23:01 Metoprolol PO 25 mg BID [facility] Administration Midodrine 10 mg 09/10/19 16:00 09/10/19 16:00 Proamatine PO Not Given TID@0800,1200,1600 [facility] Ondansetron HCl 4 mg 09/10/19 02:54 Zofran IV Q8H PRN Nausea And Vomiting Oxycodone/Acetaminophen 1 tab 09/10/19 02:54 09/11/19 02:54 Percocet 5/325 PO 1 tab Q4H PRN Administration Pain, Moderate (4-6) Sodium Chloride 10 ml 09/10/19 10:00 09/10/19 23:02 Sodium Chloride Flush Syringe 10 Ml IV 10 ml BID BEAN Administration Sodium Chloride 10 ml 09/10/19 02:54 09/10/19 08:52 Sodium Chloride Flush Syringe 10 Ml IV 10 ml PRN PRN Administration LINE FLUSH
[2019-09-11] MEDS: MIDODRINE 5 MG TAB PO SCH ×2 (09:41→12:18)
[2019-09-11] MEDS: METOPROLOL TARTRATE 25 MG TAB PO SCH (09:42)
[2019-09-11 09:50] LABS: Hematocrit 29.5 % (35.5-45.6); Hemoglobin 9.1 gm/dl (11.8-15.2); Mean Corpuscular HGB Conc 31 % (32-34); Mean Corpuscular Volume 102 fl (84-94); Red Blood Count 2.88 M/mm3 (3.65-5.03); Red Cell Distribution Width 17.5 % (13.2-15.2)
[2019-09-11 09:57] LABS: Platelet Count 93 K/mm3 (140-440)
[2019-09-11 09:59] LABS: Calcium 9.2 mg/dL (8.4-10.2)
[2019-09-11 12:26] LABS: Basophils % (Manual) 0 % (0.0-1.8); Total Cells Counted 100
[2019-09-11 12:27] LABS: Anisocytosis 1+; Target Cells 1+
[2019-09-11 12:28] LABS: Schistocytes Few; Tear Drop Cells Few
[2019-09-11 12:29] LABS: Burr Cells Few; Large Platelets Few; Platelet Estimate Consistent w Auto
--- NOTE | 2019-09-11 12:34 | Discharge Summary ---
Providers - Providers Date of Admission: 09/10/19 02:48 Date of discharge: 09/11/19 Attending physician: MIKA VERDE 09/10/19 01:04 Consult to Case Management [CONS] Stat Services Needed at Discharge: Imaging Assistant Notified:: n Additional Physician Instructions: chronic pain, daily ED visits to several hospitals, needs outpatient resources possible SNF 09/10/19 02:54 Consult to Physician [CONS] Routine Comment: Consulting Provider: LYRIC DIAMOND Physician Instructions: Reason For Exam: hd/hi k Primary care physician: MENTAL HEALTH COUNSELOR Hospitalization Condition: Stable Disposition: DC-01 TO HOME OR SELFCARE Time spent for discharge: 32 min Core Measure Documentation - Palliative Care Palliative Care/ Comfort Measures: Not Applicable - Core Measures Any of the following diagnoses?: none Exam - Constitutional Vitals: Temp Pulse Resp BP Pulse Ox 97.6 F 114 H 20 143/99 98 09/11/19 08:25 09/11/19 09:42 09/11/19 09:42 09/11/19 09:42 09/11/19 08:26 General appearance: Present: no acute distress, well-nourished - EENT Eyes: Present: PERRL, EOM intact - Neck Neck: Present: supple, normal ROM - Respiratory Respiratory effort: normal Respiratory: bilateral: diminished, negative: rales, rhonchi, wheezing - Cardiovascular Rhythm: regular Heart Sounds: Present: S1 & S2 - Extremities Extremities: no ischemia, No edema - Abdominal General gastrointestinal: Present: soft, non-tender, non-distended - Integumentary Integumentary: Present: clear, warm - Musculoskeletal Musculoskeletal: strength equal bilaterally, generalized weakness - Psychiatric Psychiatric: cooperative - Neurologic Neurologic: moves all extremities Plan Activity: advance as tolerated, fall precautions Diet: renal Durable Medical Equipment Needed Upon Discharge: Cane, Crutches Additional Instructions: Follow renal , hemodialysis per schedule. Fall precautions. Advised to comply with medications, diet, hemodialysis and follow- up visits Follow up with: AVRIL BENITEZ MD [Primary Care Provider] - 3-5 Days LYRIC DIAMOND MD [Staff Physician] - 7 Days Prescriptions: oxyCODONE /ACETAMINOPHEN [Percocet 5/325 mg] 1 tab PO BID PRN #6 tablet PRN Reason: Pain, Moderate (4-6)
[2019-09-11] MEDS ORDERED: diphenhydrAMINE 50 MG/ML VIAL IV ONE (13:00)
[2019-09-11 17:08] VITALS: BP 140/97
== END 2019-09-11 17:57 | disposition home or self-care (01) ==
LOC: ED 23:17 → 4A 09-10 02:48 → UNDOADMOB 09-10 04:34 → 4A 09-10 04:34 → INTOOBSV 09-10 04:34
PROVIDERS: ADMIT Internal Medicine; ATTEND Internal Medicine
DX: I13.2 Hypertensive heart and chronic kidney disease with heart failure and with stage 5 chronic kidney disease, or end stage renal disease (principal); E11.22 Type 2 diabetes mellitus with diabetic chronic kidney disease; N18.6 End stage renal disease; I50.22 Chronic systolic (congestive) heart failure; E87.6 Hypokalemia; I25.10 Atherosclerotic heart disease of native coronary artery without angina pectoris; F43.10 Post-traumatic stress disorder, unspecified; D69.6 Thrombocytopenia, unspecified; E11.51 Type 2 diabetes mellitus with diabetic peripheral angiopathy without gangrene; G89.29 Other chronic pain; J44.9 Chronic obstructive pulmonary disease, unspecified; Z89.202 Acquired absence of left upper limb, unspecified level; Z99.2 Dependence on renal dialysis; Z79.01 Long term (current) use of anticoagulants; Z79.899 Other long term (current) drug therapy; Z88.6 Allergy status to analgesic agent; Z91.030 Bee allergy status; Z91.018 Allergy to other foods
CPT/HCPCS: 36415; 70450; 72125; 72131; 80048; 80053; 80061; 82550; 82553; 82962; 84132; 84484; 85007; 85025; 87116; 93005; 93010; 94760; 96374; 96375; 99285; A9270; G0257; G0378; J0610; J1200; J2405; J7030; J7040; J0885; J1815; J7050

== ENCOUNTER 2019-09-22 00:40 | Emergency (ER) | payer MEDICAID ==
[2019-09-22] MEDS ORDERED: oxyCODONE /ACETAMINOPHEN 5-325MG TAB PO ONE (00:58)
[2019-09-22] MEDS ORDERED: dilTIAZem 30 MG TAB PO ONE (00:58)
[2019-09-22] MEDS ORDERED: ACETAMINOPHEN 325 MG TAB PO PRN (00:58)
[2019-09-22] MEDS ORDERED: amLODIPine 5 MG TAB PO ONE (00:59)
[2019-09-22] MEDS ORDERED: METOPROLOL TARTRATE 50 MG TAB PO ONE (00:59)
[2019-09-22] MEDS ORDERED: METOPROLOL TARTRATE 25 MG TAB PO SCH ×2 (01:00→08:00)
--- NOTE | 2019-09-22 01:01 | Emergency Department Report ---
ED General Adult HPI - General Chief complaint: Dyspnea/Respdistress Stated complaint: HI Time Seen by Provider: 09/22/19 00:45 Source: patient, EMS ( EMS documentation not available at time of chart dictation ), RN notes reviewed, old records reviewed Mode of arrival: Stretcher - History of Present Illness Initial comments: The patient is a 72-year-old gentleman. I am very familiar with this patient. Today, he is brought to the hospital by emergency medical services with a complaint of chronic lower back pain, chronic paracervical neck pain, chronic chest wall pain, and chronic shortness of breath. Past medical history includes chronic A. fib, end-stage renal disease on hemodialysis, peripheral vascular disease, anemia, thrombocytopenia, DJD, chronic pain, chronic recurrent pleural effusions. Apparently during her recent hospitalization, director of social media marketing were requested to help out with the patient as an outpatient as he has multiple and frequent returns to the emergency room. Patient received hemodialysis on schedule this week. The patient makes no complaint of fever, vomiting, hematemesis, bright red blood per rectum, or urinary symptoms. He is not currently on systemic anticoagulation given anemia, and the fact that he is a significant fall risk. He reports that he was given Percocet, but ran out of this prescription. His pain in the emergency room is improved with Percocet. -: month(s) Location: neck, chest (Chest wall pain), back Quality: aching Consistency: constant Improves with: medication Worsens with: movement - Related Data Previous Rx's Medication Instructions Recorded Last Taken Type Epoetin Prashant 10,000 Unit [Procrit] 10,000 unit SUB-Q KATERYNA PRN vial 05/22/19 Unknown Rx Acetaminophen [Acetaminophen TAB] 1 tab PO Q4H PRN #15 tablet 07/08/19 Unknown Rx AtorvaSTATin [Lipitor] 40 mg PO QHS #30 07/23/19 Unknown Rx Lidocain2.5%/Prilocai2.5% [Emla] 1 applic TP MoWeFr tube 07/23/19 Unknown Rx amLODIPine 20 mg PO DAILY #30 07/23/19 Unknown Rx bisacodyL [Dulcolax tab] 5 mg PO DAILY PRN #10 tab 07/29/19 Unknown Rx Sodium Phosphate,[place]-Dibasic 133 ml RC ONCE #1 enema 07/30/19 Unknown Rx [Fleet Enema] Metoprolol [Lopressor TAB] 25 mg PO BID #30 tablet 08/24/19 Unknown Rx Oxycodone HCl [oxyCODONE] 10 mg PO Q6H PRN #14 tab 08/25/19 Unknown Rx oxyCODONE /ACETAMINOPHEN [Percocet 1 tab PO BID PRN #6 tablet 09/11/19 Unknown Rx 5/325 mg] Allergies Allergy/AdvReac Type Severity Reaction Status Date / Time aspirin Allergy Unknown Verified 02/20/19 22:06 pork derived (porcine) Allergy Rash Verified 02/20/19 22:06 venom-honey bee Allergy Anaphylaxis Verified 02/20/19 22:06 [bee venom (honey bee)] Pork/Porcine Containing AdvReac Severe Nausea,VOMI Verified 02/20/19 22:06 Products TING ED Review of Systems ROS: Stated complaint: HI Other details as noted in HPI Constitutional: see HPI Eyes: as per HPI ENT: as per HPI Respiratory: see HPI Cardiovascular: as per HPI Endocrine: see HPI Gastrointestinal: as per HPI Genitourinary: as per HPI Musculoskeletal: as per HPI Skin: as per HPI Neurological: as per HPI Psychiatric: as per HPI Hematological/Lymphatic: as per HPI ED Past Medical Hx - Past Medical History Hx Hypertension: Yes Hx Heart Attack/AMI: No Hx Congestive Heart Failure: Yes Hx Diabetes: Yes Hx Deep Vein Thrombosis: Yes Hx Pulmonary Embolism: No Hx Liver Disease: Yes Hx Renal Disease: Yes Hx Arthritis: Yes (generalized) Hx Seizures: No Hx Kidney Stones: No Hx Psychiatric Treatment: Yes (PTSD) Hx Asthma: No Hx COPD: Yes Hx Tuberculosis: No Hx HIV: No Additional medical history: 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 abd surgery after war related ingury partial "stomach removal'. Left upper extremity amputation below elbow - Social History Smoking Status: Former Smoker - Medications Home Medications: Home Medications Medication Instructions Recorded Confirmed Last Taken Type Epoetin Prashant 10,000 Unit [Procrit] 10,000 unit SUB-Q KATERYNA PRN vial 05/22/19 07/09/19 Unknown Rx Acetaminophen [Acetaminophen TAB] 1 tab PO Q4H PRN #15 tablet 07/08/19 07/09/19 Unknown Rx AtorvaSTATin [Lipitor] 40 mg PO QHS #30 07/23/19 Unknown Rx Lidocain2.5%/Prilocai2.5% [Emla] 1 applic TP MoWeFr tube 07/23/19 Unknown Rx amLODIPine 20 mg PO DAILY #30 07/23/19 Unknown Rx bisacodyL [Dulcolax tab] 5 mg PO DAILY PRN #10 tab 07/29/19 Unknown Rx Sodium Phosphate,[place]-Dibasic 133 ml RC ONCE #1 enema 07/30/19 Unknown Rx [Fleet Enema] Metoprolol [Lopressor TAB] 25 mg PO BID #30 tablet 08/24/19 Unknown Rx Oxycodone HCl [oxyCODONE] 10 mg PO Q6H PRN #14 tab 08/25/19 Unknown Rx oxyCODONE /ACETAMINOPHEN [Percocet 1 tab PO BID PRN #6 tablet 09/11/19 Unknown Rx 5/325 mg] ED Physical Exam - General Limitations: Physical Limitation General appearance: alert, anxious - Head Head exam: Present: atraumatic, normocephalic - Eye Eye exam: Present: normal appearance, EOMI - ENT ENT exam: Present: normal exam, normal orophraynx, mucous membranes moist, normal external ear exam - Neck Neck exam: Present: normal inspection, full ROM. Absent: tenderness, meningismus - Respiratory Respiratory exam: Present: chest wall tenderness, other (Faint crackles noted at the bilateral lung bases, left greater than right). Absent: respiratory distress, wheezes, rales, stridor - Cardiovascular Cardiovascular Exam: Present: tachycardia, irregular rhythm, normal heart sounds. Absent: systolic murmur, diastolic murmur, rubs, gallop - GI/Abdominal GI/Abdominal exam: Present: soft. Absent: distended, tenderness, guarding, rebound, rigid, pulsatile mass - Rectal Rectal exam: Present: deferred - Extremities Exam Extremities exam: Present: normal inspection, full ROM, other (There is a left upper extremity stump status post amputation. Right upper extremity graft. 2+ femoral pulses noted bilaterally. There is no long bony tenderness. The muscular compartments are soft.) - Back Exam Back exam: Present: paraspinal tenderness. Absent: CVA tenderness (R), CVA tenderness (L) - Neurological Exam Neurological exam: Present: alert, other (There is no facial droop. The tongue is midline. The extraocular movements are intact bilaterally. Speaking in full sentences. Alert and oriented. 5 out of 5 strength in 4 extremities. Se nsation is intact to light touch in 4 extremities) - Psychiatric Psychiatric exam: Present: anxious - Skin Skin exam: Present: warm, dry, intact, normal color. Absent: rash ED Course Vital Signs 09/22/19 09/22/19 09/22/19 00:57 01:09 01:46 Temperature 97.7 F Pulse Rate 105 H 105 H 99 H Respiratory 19 19 Rate Blood Pressure 133/105 Blood Pressure 133/105 135/89 [Left] O2 Sat by Pulse 100 99 Oximetry - Reevaluation(s) Reevaluation #1: 09/22/19 02:11 Please note that the patient was recently evaluated at this hospital for both neck and back pain, he had noncontrast CT scan of the cervical spine and lumbar spine, which showed chronic findings, but no acute disease. These reports have been pasted into this particular chart. ED Medical Decision Making - Lab Data Result diagrams: 09/22/19 01:10 09/22/19 01:10 Vital Signs 09/22/19 09/22/19 09/22/19 00:57 01:09 01:46 Temperature 97.7 F Pulse Rate 105 H 105 H 99 H Respiratory 19 19 Rate Blood Pressure 133/105 Blood Pressure 133/105 135/89 [Left] O2 Sat by Pulse 100 99 Oximetry Lab Results 09/22/19 09/22/19 09/22/19 Range/Units 01:10 01:10 01:10 Hgb 9.1 L (11.8-15.2) gm/dl Hct 27.7 L (35.5-45.6) % Plt Count 81 L (140-440) K/mm3 PT 19.8 H (12.2-14.9) Sec. INR 1.65 H (0.87-1.13) Sodium 135 L (137-145) mmol/L Potassium 2.8 L* (3.6-5.0) mmol/L Chloride 95.7 L (98-107) mmol/L Carbon Dioxide 30 (22-30) mmol/L Anion Gap 12 mmol/L BUN 12 (9-20) mg/dL Creatinine 2.8 H (0.8-1.5) mg/dL Estimated GFR 27 ml/min BUN/Creatinine Ratio 4 % Glucose 122 H (75-100) mg/dL Calcium 8.5 (8.4-10.2) mg/dL Magnesium 1.90 (1.7-2.3) mg/dL Total Creatine Kinase 53 L (55-170) units/L - EKG Data -: EKG Interpreted by Ne Rate: tachycardia - EKG Data 09/22/19 02:09 The EKG today shows atrial flutter, 2-1 conduction, left axis deviation, left anterior fascicular block, QTC prolonged, left ventricular hypertrophy, abnormal EKG, not a STEMI, unchanged from prior. - Radiology Data Radiology results: report reviewed, image reviewed Print Report Referring Physician: ENEDINA GREENBERG Patient Name: NEENA GARCIA Date of : 1947-02-12 Sex: Male Report Date: 2019-09-22 Report Status: Finalized Findings [facility] [address] [place] [address] XRay Report Signed Patient: NEENA GARCIA MR#: [id number] 59 : 02/12/1947 Acct:[id number] Age/Sex: 72 / M ADM Date: 09/22/19 Loc: ED Attending Dr: Ordering Physician: ENEDINA GREENBERG MD Date of Service: 09/22/19 Procedure(s): XR chest 1V ap Accession Number(s): [id number] cc: ENEDINA GREENBERG MD Fluoro Time In Minutes: CHEST 1 VIEW INDICATION / CLINICAL INFORMATION: esrd sob. COMPARISON: 08/24/2019 FINDINGS: SUPPORT DEVICES: None. HEART / MEDIASTINUM: Stable enlargement of the cardiac silhouette LUNGS / PLEURA: The right pleural effusion persists. Bilateral pleural-parenchymal opacities are not significantly changed. No pneumothorax. ADDITIONAL FINDINGS: No significant additional fin dings. IMPRESSION: 1. Stable bibasilar opacities representing atelectasis and/or pleural effusion. Signer Name: Sd Rivera MD Signed: 09/22/2019 1:26 AM Workstation Name: [id number] Transcribed By: [place] Dictated By: Sd Rivera MD Electronically Authenticated By: Sd Rivera MD Signed Date/Time: 09/22/19125 DD/ 0123 Print Report Referring Physician: CAROL LAGUERRE Patient Name: NEENA GARCIA Date of : 1947-02-12 Sex: Male Report Date: 2019-09-10 Report Status: Finalized Findings [address] [address] Cat Scan Report Signed Patient: NEENA GARCIA MR#: [id number] 59 : 02/12/1947 Acct:[id number] Age/Sex: 72 / M ADM Date: 09/09/19 Loc: ED Attending Dr: Ordering Physician: Carol Aj MD Date of Service: 09/09/19 Procedure(s): CT lumbar spine wo con Accession Number(s): [id number] cc: aCrol Aj MD CT lumbar spine wo con INDICATION / CLINICAL INFORMATION: Pt complains of lower back pain. Hx of previous back surgery.. TECHNIQUE: All CT scans at this location are performed using CT dose reduction for ALARA by means of automated exposure control. COMPARISON: 04/01/2019 FINDINGS: Postsurgical changes seen at L5-S1. Mild diffuse degenerative changes seen throughout the lumbar region. No evidence of a fracture or significant spinal stenosis. IMPRESSION: Postsurgical change at L5-S1. No interval change from prior examination dated 04/01/2019 Signer Name: Anthony Soto MD FACR Signed: 09/10/2019 1:54 AM Workstation Name: [id number] Transcribed By: [place] Dictated By: Anthony Soto MD Electronically Authenticated By: Anthony Soto MD Signed Date/Time: 09/10/19 0154 Print Report Referring Physician: CAROL LAGUERRE Patient Name: NEENA GARCIA Date of : 1947-02-12 Sex: Male Report Date: 2019-09-10 Report Status: Finalized Findings [address] [address] Cat Scan Report Signed Patient: NEENA GARCIA MR#: [id number] 59 : 02/12/1947 Acct:[id number] Age/Sex: 72 / M ADM Date: 09/09/19 Loc: ED Attending Dr: Ordering Physician: Carol Aj MD Date of Service: 09/09/19 Procedure(s): CT cervical spine wo con Accession Number(s): [id number] cc: Carol Aj MD CT cervical spine wo con INDICATION / CLINICAL INFORMATION: Pt complains of neck pain with hand tingling on RIGHT arm. No Trauma.. TECHNIQUE: All CT scans at this location are performed using CT dose reduction for ALARA by means of automated exposure control. COMPARISON: 04/01/2019 FINDINGS: Extensive anterior and posterior postoperative changes seen throughout the cervical region. There are erosions of the tip of the odontoid process unchanged. No acute fracture is identified. No significant spinal stenosis is seen. IMPRESSION: Extensive anterior and posterior post operative changes in the cervical spine. Overall no significant interval change from prior examination dated 04/01/2019 Signer Name: Anthony Soto MD FACR Signed: 09/10/2019 1:50 AM Workstation Name: [id number] Transcribed By: [place] Dictated By: Anthony Soto MD Electronically Authenticated By: Anthony Soto MD Signed Date/Time: 09/10/19 0150 DD/ 0147 TD/TT: - Medical Decision Making Differential diagnosis, including but not limited to: Chronic end-stage renal disease, chronic pleural effusions, chronic chest wall pain, chronic musculoskeletal back and neck pain Assessment and plan: 72-year-old gentleman whom I evaluated multiple times in the past, who is presenting with chronic pain syndrome and chest wall pain. His tachycardia is resolved. He is on chronic oxygen at home. He is not clinically fluid overloaded. He has chronic pleural effusions. Resting comfortably at this time after Percocet. Suspect that patient's primary motivation is pain control, he does not appear to have an emergent medical condition at this time that requires admission to the hospital. Laboratory abnormalities are reviewed and appreciated. He recently received dialysis. He will need to follow-up with his outpatient primary care doctor or cabinet finisher or nuclear waste process operator Critical care attestation.: If time is entered above; I have spent that time in minutes in the direct care of this critically ill patient, excluding procedure time. ED Disposition Clinical Impression: ESRD (end stage renal disease) on dialysis, Anemia, Pleural effusion, left, Chronic neck and back pain, Chest wall pain Disposition: DC-01 TO HOME OR SELFCARE Is pt being admited?: No Does the pt Need Aspirin: No Condition: Stable Instructions: Chest Pain (ED) Additional Instructions: Continue home oxygen therapy. Follow-up with your primary care doctor, cabinet finisher, or nuclear waste process operator within the next 5 to 7 days. Wash hands very thoroughly with soap and water, wash all clothing in the washing machine, continue outpatient medications. Avoid consumption of alcohol, tobacco products and smoke products. Return to the emergency room right away with new, worsened or different sympto ms, or symptoms not present on the initial emergency room evaluation. Referrals: JOSEPH JORGE MD [Staff Physician] - 3-5 Days MARY ANN JACKSON MD [Staff Physician] - 3-5 Days LYRIC DIAMOND MD [Staff Physician] - 3-5 Days
[2019-09-22 01:23] LABS: Hematocrit 27.7 % (35.5-45.6); Hemoglobin 9.1 gm/dl (11.8-15.2)
--- NOTE | 2019-09-22 01:30 | XRay Report ---
CHEST 1 VIEW INDICATION / CLINICAL INFORMATION: esrd sob. COMPARISON: 08/24/2019 FINDINGS: SUPPORT DEVICES: None. HEART / MEDIASTINUM: Stable enlargement of the cardiac silhouette LUNGS / PLEURA: The right pleural effusion persists. Bilateral pleural-parenchymal opacities are not significantly changed. No pneumothorax. ADDITIONAL FINDINGS: No significant additional findings. IMPRESSION: 1. Stable bibasilar opacities representing atelectasis and/or pleural effusion. Signer Name: Sd Rivera MD Signed: 09/22/2019 1:26 AM Workstation Name: [id number]
[2019-09-22 01:36] LABS: INR 1.65 (0.87-1.13)
[2019-09-22 01:37] LABS: Calcium 8.5 mg/dL (8.4-10.2)
[2019-09-22 01:46] VITALS: BP 135/89
[2019-09-22] MEDS ORDERED: amLODIPine 10 MG TAB PO SCH (10:00)
== END 2019-09-22 03:30 | disposition home or self-care (01) ==
LOC: ED 00:40
DX: N18.6 End stage renal disease (principal); F43.10 Post-traumatic stress disorder, unspecified; E11.22 Type 2 diabetes mellitus with diabetic chronic kidney disease; J90 Pleural effusion, not elsewhere classified; D64.9 Anemia, unspecified; R07.89 Other chest pain; M54.2 Cervicalgia; M54.5 Low back pain; J44.9 Chronic obstructive pulmonary disease, unspecified; G89.29 Other chronic pain; I12.0 Hypertensive chronic kidney disease with stage 5 chronic kidney disease or end stage renal disease; Z99.2 Dependence on renal dialysis
CPT/HCPCS: 36415; 71045; 80048; 82550; 83735; 85014; 85018; 85049; 85610; 93005; 93010; 99284

== ENCOUNTER 2019-09-23 20:34 | Emergency (ER) | payer MEDICAID ==
[2019-09-23] MEDS ORDERED: oxyCODONE /ACETAMINOPHEN 5-325MG TAB PO ONE (22:02)
--- NOTE | 2019-09-23 22:19 | Emergency Department Report ---
ED General Adult HPI - General Chief complaint: Dyspnea/Respdistress Stated complaint: HI Time Seen by Provider: 09/23/19 21:51 Source: patient, EMS Mode of arrival: Stretcher Limitations: Physical Limitation - History of Present Illness Initial comments: Chief complaint: "I have neck and back pain" HPI: This is a 72-year-old male with history of end-stage renal disease on hemodialysis, atrial fibrillation, chronic respiratory failure on supplemental oxygen, cervical and lumbar DDD, CHF, insulin-dependent diabetes, chronic pain who presents with neck and back pain. I have evaluated this gentleman on previous occasions. He has had persistent neck and back pain for several years. He denies any recent trauma or falls. He also states that he has shortness of breath. Oxygen saturation 100% according to EMS on home O2 settings. He currently denies chest pain fever or cough. He was recently evaluated by my colleague here in the emergency department on yesterday. Patient was recently discharged from the hospital September 10. At that time patient required hemodialysis for hyperkalemia. -: year(s) (Several years) Quality: aching Consistency: constant Improves with: none Worsens with: none Associated Symptoms: other (Shortness of breath) Treatments Prior to Arrival: none - Related Data Previous Rx's Medication Instructions Recorded Last Taken Type Epoetin Prashant 10,000 Unit [Procrit] 10,000 unit SUB-Q KATERYNA PRN vial 05/22/19 Unknown Rx Acetaminophen [Acetaminophen TAB] 1 tab PO Q4H PRN #15 tablet 07/08/19 Unknown Rx AtorvaSTATin [Lipitor] 40 mg PO QHS #30 07/23/19 Unknown Rx Lidocain2.5%/Prilocai2.5% [Emla] 1 applic TP MoWeFr tube 07/23/19 Unknown Rx amLODIPine 20 mg PO DAILY #30 07/23/19 Unknown Rx bisacodyL [Dulcolax tab] 5 mg PO DAILY PRN #10 tab 07/29/19 Unknown Rx Sodium Phosphate,[place]-Dibasic 133 ml RC ONCE #1 enema 07/30/19 Unknown Rx [Fleet Enema] Metoprolol [Lopressor TAB] 25 mg PO BID #30 tablet 08/24/19 Unknown Rx Oxycodone HCl [oxyCODONE] 10 mg PO Q6H PRN #14 tab 08/25/19 Unknown Rx oxyCODONE /ACETAMINOPHEN [Percocet 1 tab PO BID PRN #6 tablet 09/11/19 Unknown Rx 5/325 mg] Allergies Allergy/AdvReac Type Severity Reaction Status Date / Time aspirin Allergy Unknown Verified 02/20/19 22:06 pork derived (porcine) Allergy Rash Verified 02/20/19 22:06 venom-honey bee Allergy Anaphylaxis Verified 02/20/19 22:06 [bee venom (honey bee)] Pork/Porcine Containing AdvReac Severe Nausea,VOMI Verified 02/20/19 22:06 Products TING ED Review of Systems ROS: Stated complaint: HI Other details as noted in HPI Comment: All other systems reviewed and negative Constitutional: denies: fever, malaise Respiratory: shortness of breath Cardiovascular: denies: chest pain Gastrointestinal: denies: abdominal pain, nausea, vomiting ED Past Medical Hx - Past Medical History Previous Medical History?: Yes Hx Hypertension: Yes Hx Heart Attack/AMI: No Hx Congestive Heart Failure: Yes Hx Diabetes: Yes Hx Deep Vein Thrombosis: Yes Hx Pulmonary Embolism: No Hx Liver Disease: Yes Hx Renal Disease: Yes Hx Arthritis: Yes (generalized) Hx Seizures: No Hx Kidney Stones: No Hx Psychiatric Treatment: Yes (PTSD) Hx Asthma: No Hx COPD: Yes Hx Tuberculosis: No Hx HIV: No Additional medical history: 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 abd surgery after war related ingury partial "stomach removal'. Left upper extremity amputation below elbow - Social History Smoking Status: Former Smoker - Medications Home Medications: Home Medications Medication Instructions Recorded Confirmed Last Taken Type Epoetin Prashant 10,000 Unit [Procrit] 10,000 unit SUB-Q KATERYNA PRN vial 05/22/19 07/09/19 Unknown Rx Acetaminophen [Acetaminophen TAB] 1 tab PO Q4H PRN #15 tablet 07/08/19 07/09/19 Unknown Rx AtorvaSTATin [Lipitor] 40 mg PO QHS #30 07/23/19 Unknown Rx Lidocain2.5%/Prilocai2.5% [Emla] 1 applic TP MoWeFr tube 07/23/19 Unknown Rx amLODIPine 20 mg PO DAILY #30 07/23/19 Unknown Rx bisacodyL [Dulcolax tab] 5 mg PO DAILY PRN #10 tab 07/29/19 Unknown Rx Sodium Phosphate,[place]-Dibasic 133 ml RC ONCE #1 enema 07/30/19 Unknown Rx [Fleet Enema] Metoprolol [Lopressor TAB] 25 mg PO BID #30 tablet 08/24/19 Unknown Rx Oxycodone HCl [oxyCODONE] 10 mg PO Q6H PRN #14 tab 08/25/19 Unknown Rx oxyCODONE /ACETAMINOPHEN [Percocet 1 tab PO BID PRN #6 tablet 09/11/19 Unknown Rx 5/325 mg] ED Physical Exam - General Limitations: Physical Limitation General appearance: alert, in no apparent distress - Head Head exam: Present: atraumatic, normocephalic - Eye Eye exam: Present: normal appearance - ENT ENT exam: Present: mucous membranes moist - Neck Neck exam: Present: normal inspection, full ROM - Respiratory Respiratory exam: Present: normal lung sounds bilaterally. Absent: respiratory distress, wheezes, rales, rhonchi - Cardiovascular Cardiovascular Exam: Present: regular rate, normal rhythm, normal heart sounds. Absent: rubs, gallop - GI/Abdominal GI/Abdominal exam: Present: soft. Absent: distended, tenderness, guarding - Rectal Rectal exam: Present: deferred - Extremities Exam Extremities exam: Present: other (Left upper arm extremity amputation) - Neurological Exam Neurological exam: Present: alert, oriented X3 - Psychiatric Psychiatric exam: Present: normal affect, normal mood - Skin Skin exam: Present: warm, dry, intact, normal color. Absent: rash ED Course Vital Signs 09/23/19 09/23/19 22:08 22:21 Temperature 98.2 F Pulse Rate 109 H Respiratory 23 20 Rate Blood Pressure 131/93 [Left] O2 Sat by Pulse 100 100 Oximetry ED Medical Decision Making - Lab Data Result diagrams: 09/23/19 22:10 09/23/19 22:10 - EKG Data 09/23/19 22:47 EKG obtained 2237 Atrial fibrillation ventricular rate 110 bpm left axis deviation no ST elevation positive PVCs - Radiology Data Radiology results: report reviewed Bilateral opacities pleural effusion unchanged from prior exam. Portable chest radiograph according to radiology impression - Medical Decision Making 1. Chronic neck and back pain: Patient received Percocet here in the emergency department without history of trauma 2. Shortness of breath without pneumonia or new pulmonary edema. Oxygen saturation 100% on supplemental oxygen. Patient has hemodialysis scheduled at 9 AM. His transport will pick him up at 8:30 AM. Patient is discharged home. Labs notable for hypokalemia 3.4 Critical care attestation.: If time is entered above; I have spent that time in minutes in the direct care of this critically ill patient, excluding procedure time. ED Disposition Clinical Impression: Chronic neck and back pain, ESRD (end stage renal disease) on dialysis, Shortness of breath Disposition: DC-01 TO HOME OR SELFCARE Is pt being admited?: No Does the pt Need Aspirin: No Condition: Stable Referrals: AURELIO ACEVEDO [Other] - 3-5 Days
[2019-09-23 22:34] LABS: Basophils % (Auto) 1.1 % (0.0-1.8); Eosinophils # (Auto) 0.2 K/mm3 (0.0-0.4); Eosinophils % (Auto) 6.4 % (0.0-4.3); Hematocrit 27.6 % (35.5-45.6); Lymphocytes # (Auto) 0.7 K/mm3 (1.2-5.4); Lymphocytes % (Auto) 23.5 % (13.4-35.0); Mean Corpuscular HGB Conc 33 % (32-34); Mean Corpuscular Volume 98 fl (84-94); Monocytes # (Auto) 0.3 K/mm3 (0.0-0.8); Monocytes % (Auto) 11.2 % (0.0-7.3); Red Cell Distribution Width 17.4 % (13.2-15.2)
[2019-09-23 22:36] LABS: Platelet Count 82 K/mm3 (140-440)
--- NOTE | 2019-09-23 22:37 | XRay Report ---
CHEST 1 VIEW INDICATION / CLINICAL INFORMATION: MAIN: Dyspnea; Pt arrives with EMS co sob and needing a medication refill. Seen here yesterday for sa me. COMPARISON: 09/22/2019 FINDINGS: SUPPORT DEVICES: None. HEART / MEDIASTINUM: Stable. LUNGS / PLEURA: Bilateral pleural-parenchymal opacities are unchanged. No pneumothorax. ADDITIONAL FINDINGS: No significant additional findings. IMPRESSION: 1. Pleural effusion/atelectasis unchanged. Signer Name: Sd Rivera MD Signed: 09/23/2019 10:33 PM Workstation Name: [id number]
[2019-09-23 22:52] LABS: Calcium 8.5 mg/dL (8.4-10.2)
[2019-09-23 23:28] VITALS: BP 136/94
== END 2019-09-24 00:22 | disposition home or self-care (01) ==
LOC: ED 20:34
DX: E13.22 Other specified diabetes mellitus with diabetic chronic kidney disease (principal); I13.2 Hypertensive heart and chronic kidney disease with heart failure and with stage 5 chronic kidney disease, or end stage renal disease; I50.9 Heart failure, unspecified; N18.6 End stage renal disease; F43.10 Post-traumatic stress disorder, unspecified; M13.88 Other specified arthritis, other site; J44.9 Chronic obstructive pulmonary disease, unspecified; Z86.718 Personal history of other venous thrombosis and embolism; Z79.01 Long term (current) use of anticoagulants; Z99.2 Dependence on renal dialysis; Z87.891 Personal history of nicotine dependence
CPT/HCPCS: 36415; 71045; 80048; 85025; 93005; 93010

== ENCOUNTER 2019-09-27 05:43 | Inpatient (IN) | payer MEDICAID ==
--- NOTE | 2019-09-27 06:20 | Emergency Department Report ---
ED General Adult HPI - General Chief complaint: Headache Stated complaint: GENERAL ILLNESS Time Seen by Provider: 09/27/19 06:16 Source: EMS Mode of arrival: Stretcher Limitations: Physical Limitation - History of Present Illness Initial comments: This is a 72-year-old male who has frequent visits to the emergency department. This includes recent noncompliance with his dialysis. He was here yesterday for headache. However, at this time he is not complaining of headache. The patient tells me that his visiting nurse told him he had a fever. He did not inquire as to the degree of temperature elevation. He stated the nurse's plan was for him to go to the emergency department. This he did. Yesterday was his dialysis today. He did not receive dialysis. He states "1 thing I know is that I need dialysis". He does have some dyspnea. He states he has been coughing more frequently over the past 2 days. He does not report any productive sputum. He states he has had some diarrhea about twice a night for the last 2 days as well. He is not complaining of chest pain or abdominal pain. He does have chronic neck and lower back pain. He is anuric. Data Collected from recent records. Admission for missed dialysis, recent presentation for possible fever and headache. Negative CT in 09/05. Hospitalization Condition: Fair Hospital course: Patient is a 72-year-old man with a history of end-stage renal disease on hemodialysis, dialysis, hypertension, CHF, A. fib, coronary artery disease, PTSD, COPD, chronic pain, wheelchair-bound comes emergency room for evaluation. He complains of shortness of breath as he missed dialysis on Monday. DDX: End-stage renal disease on hemodialysis: renal was consulted for dialysis Chronic pain syndrome: Counseling done A. fib, stable: Not a candidate for anticoagulation secondary to frequent falls Coronary artery disease: Continue appropriate outpatient medications, check card iac enzyme Diabetes mellitus type 2: Check fingersticks, start sliding scale CHF, Chronic, systolic Hypertension, continue outpatient medications PTSD Thrombocytopenia, continue to monitor DVT prophylaxis. Today, he is brought to the hospital by emergency medical services with a complaint of chronic lower back pain, chronic paracervical neck pain, chronic chest wall pain, and chronic shortness of breath. Past medical history includes chronic A. fib, end-stage renal disease on hemodialysis, peripheral vascular disease, anemia, thrombocytopenia, DJD, chronic pain, chronic recurrent pleural effusions. COMPARISON: 08/22/2019 FINDINGS: Mild cerebral atrophy is present. No mass or mass effect is seen. There is no evidence of intracranial hemorrhage. No obvious area of infarction is identified. Visualized paranasal sinuses are clear. -: days(s) Consistency: intermittent Associated Symptoms: cough, fever/chills (Does not report chills. States nurse detected a fever yesterday.), shortness of breath - Related Data Previous Rx's Medication Instructions Recorded Last Taken Type Epoetin Prashant 10,000 Unit [Procrit] 10,000 unit SUB-Q KATERYNA PRN vial 05/22/19 Unknown Rx Acetaminophen [Acetaminophen TAB] 1 tab PO Q4H PRN #15 tablet 07/08/19 Unknown Rx AtorvaSTATin [Lipitor] 40 mg PO QHS #30 07/23/19 Unknown Rx Lidocain2.5%/Prilocai2.5% [Emla] 1 applic TP MoWeFr tube 07/23/19 Unknown Rx amLODIPine 20 mg PO DAILY #30 07/23/19 Unknown Rx bisacodyL [Dulcolax tab] 5 mg PO DAILY PRN #10 tab 07/29/19 Unknown Rx Sodium Phosphate,[place]-Dibasic 133 ml RC ONCE #1 enema 07/30/19 Unknown Rx [Fleet Enema] Metoprolol [Lopressor TAB] 25 mg PO BID #30 tablet 08/24/19 Unknown Rx Oxycodone HCl [oxyCODONE] 10 mg PO Q6H PRN #14 tab 08/25/19 Unknown Rx oxyCODONE /ACETAMINOPHEN [Percocet 1 tab PO BID PRN #6 tablet 09/11/19 Unknown Rx 5/325 mg] Allergies Allergy/AdvReac Type Severity Reaction Status Date / Time aspirin Allergy Unknown Verified 02/20/19 22:06 pork derived (porcine) Allergy Rash Verified 02/20/19 22:06 venom-honey bee Allergy Anaphylaxis Verified 02/20/19 22:06 [bee venom (honey bee)] Pork/Porcine Containing AdvReac Severe Nausea,VOMI Verified 02/20/19 22:06 Products TING ED Review of Systems ROS: Stated complaint: GENERAL ILLNESS Other details as noted in HPI Constitutional: fever. denies: chills Eyes: denies: eye discharge, vision change ENT: denies: ear pain, throat pain Respiratory: cough, shortness of breath Cardiovascular: denies: chest pain, palpitations Endocrine: no symptoms reported Gastrointestinal: denies: abdominal pain, vomiting, diarrhea Genitourinary: as per HPI Musculoskeletal: back pain (Chronic). denies: joint swelling Skin: denies: rash, lesions Neurological: headache (Yesterday). denies: weakness, numbness Psychiatric: denies: auditory hallucinations, visual hallucinations Hematological/Lymphatic: denies: easy bleeding, swollen glands ED Past Medical Hx - Past Medical History Previous Medical History?: Yes Hx Hypertension: Yes Hx Heart Attack/AMI: No Hx Congestive Heart Failure: Yes Hx Diabetes: Yes Hx Deep Vein Thrombosis: Yes Hx Pulmonary Embolism: No Hx Liver Disease: Yes Hx Renal Disease: Yes Hx Arthritis: Yes (generalized) Hx Seizures: No Hx Kidney Stones: No Hx Psychiatric Treatment: Yes (PTSD) Hx Asthma: No Hx COPD: Yes Hx Tuberculosis: No Hx HIV: No Additional medical history: 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 abd surgery after war related ingury partial "stomach removal'. Left upper extremity amputation below elbow - Social History Smoking Status: Never Smoker Substance Use Type: None - Medications Home Medications: Home Medications Medication Instructions Recorded Confirmed Last Taken Type Epoetin Prashant 10,000 Unit [Procrit] 10,000 unit SUB-Q KATERYNA PRN vial 05/22/19 07/09/19 Unknown Rx Acetaminophen [Acetaminophen TAB] 1 tab PO Q4H PRN #15 tablet 07/08/19 07/09/19 Unknown Rx AtorvaSTATin [Lipitor] 40 mg PO QHS #30 07/23/19 Unknown Rx Lidocain2.5%/Prilocai2.5% [Emla] 1 applic TP MoWeFr tube 07/23/19 Unknown Rx amLODIPine 20 mg PO DAILY #30 07/23/19 Unknown Rx bisacodyL [Dulcolax tab] 5 mg PO DAILY PRN #10 tab 07/29/19 Unknown Rx Sodium Phosphate,[place]-Dibasic 133 ml RC ONCE #1 enema 07/30/19 Unknown Rx [Fleet Enema] Metoprolol [Lopressor TAB] 25 mg PO BID #30 tablet 08/24/19 Unknown Rx Oxycodone HCl [oxyCODONE] 10 mg PO Q6H PRN #14 tab 08/25/19 Unknown Rx oxyCODONE /ACETAMINOPHEN [Percocet 1 tab PO BID PRN #6 tablet 09/11/19 Unknown Rx 5/325 mg] ED Physical Exam - General Limitations: Physical Limitation General appearance: other (Chronically ill and somewhat pale) - Head Head exam: Present: atraumatic, normocephalic - Eye Eye exam: Present: EOMI. Absent: scleral icterus - ENT ENT exam: Present: mucous membranes dry (Perhaps somewhat), normal external ear exam - Neck Neck exam: Absent: tenderness, meningismus - Respiratory Respiratory exam: Present: normal lung sounds bilaterally. Absent: respiratory distress - Cardiovascular Cardiovascular Exam: Present: normal rhythm, tachycardia - GI/Abdominal GI/Abdominal exam: Present: soft, normal bowel sounds. Absent: distended, tenderness, guarding, rebound, rigid - Extremities Exam Extremities exam: Present: other (Below the elbow amputation left. Intact stump.) - Back Exam Back exam: Absent: CVA tenderness (R), CVA tenderness (L), vertebral tenderness - Neurological Exam Neurological exam: Present: alert, CN II-XII intact. Absent: motor sensory deficit - Psychiatric Psychiatric exam: Present: normal mood, flat affect - Skin Skin exam: Present: warm, dry, other (Chronic dry and scaly skin) ED Course Vital Signs 09/27/19 09/27/19 09/27/19 06:02 07:30 08:46 Temperature 98.6 F Pulse Rate 118 H 122 H Respiratory 22 24 24 Rate Blood Pressure 118/56 160/90 [left arm] O2 Sat by Pulse 100 100 100 Oximetry - Reevaluation(s) Reevaluation #1: I have ordered the hospital-based Covid test. It will be collected. However please note there is no Oxonica order for this yet. 09/27/19 07:04 Reevaluation #2: Discussed with Dr. Nicole. He will consult. Discussed with Dr. Bonilla. Agrees with CT chest with contrast. Case management consult placed. 09/27/19 09:24 ED Medical Decision Making - Lab Data Result diagrams: 09/27/19 07:17 09/27/19 07:17 Laboratory Results - last 24 hr 09/27/19 07:17 Republic % (Auto) 9.8 H Eos % (Auto) 4.1 Republic # 0.3 Eos # 0.1 Baso # 0.0 Seg Neutrophils % 59.8 Seg Neutrophils # 1.6 L - EKG Data -: EKG Interpreted by Me EKG shows normal: sinus rhythm Rate: tachycardia - EKG Data Interpretation: nonspecific ST-T wave adriana, subendocardial ischemia, other (Left anterior fascicular block) - Radiology Data Radiology results: image reviewed (Bilateral pleural effusions, CHF) Critical care attestation.: If time is entered above; I have spent that time in minutes in the direct care of this critically ill patient, excluding procedure time. ED Disposition Clinical Impression: End-stage renal disease needing dialysis, Tachycardia, Elevated d-dimer, Lymphopenia, Thrombocytopenia Congestive heart failure Qualifiers: Heart failure type: combined systolic and diastolic Heart failure chronicity: acute on chronic Qualified Code(s): I50.43 - Acute on chronic combined systolic (congestive) and diastolic (congestive) heart failure Neutropenia Qualifiers: Neutropenia type: unspecified Qualified Code(s): D70.9 - Neutropenia, unspec ified Disposition: OP ADMIT IP TO THIS HOSP Is pt being admited?: Yes Does the pt Need Aspirin: No (Contraindicated due to thrombocytopenia) Condition: Stable
[2019-09-27 07:39] LABS: Basophils % (Auto) 1.1 % (0.0-1.8); Eosinophils # (Auto) 0.1 K/mm3 (0.0-0.4); Eosinophils % (Auto) 4.1 % (0.0-4.3); Hematocrit 25.6 % (35.5-45.6); Hemoglobin 8.1 gm/dl (11.8-15.2); Lymphocytes # (Auto) 0.7 K/mm3 (1.2-5.4); Lymphocytes % (Auto) 25.2 % (13.4-35.0); Mean Corpuscular HGB Conc 32 % (32-34); Mean Corpuscular Volume 100 fl (84-94); Monocytes # (Auto) 0.3 K/mm3 (0.0-0.8); Monocytes % (Auto) 9.8 % (0.0-7.3); Red Blood Count 2.57 M/mm3 (3.65-5.03); Red Cell Distribution Width 17.1 % (13.2-15.2)
[2019-09-27 07:48] LABS: INR 1.58 (0.87-1.13)
[2019-09-27 07:54] LABS: Platelet Count 78 K/mm3 (140-440)
[2019-09-27 08:04] LABS: Alanine Aminotransferase 11 units/L (7-56); Albumin 3.1 g/dL (3.9-5); BUN/Creatinine Ratio 6; Blood Urea Nitrogen 33 mg/dL (9-20); Hemolysis Index 3
[2019-09-27 08:06] LABS: C-Reactive Protein 0.5 mg/dL (0.00-1.30)
[2019-09-27 08:36] LABS: Bilirubin,Direct < 0.2 mg/dL (0-0.2)
[2019-09-27] MEDS ORDERED: HYDROcodone/ACETAMINOPHEN 10-325MG TAB ONE (08:41)
--- NOTE | 2019-09-27 08:42 | XRay Report ---
CHEST 1 VIEW INDICATION: HI. COMPARISON: 09/26/2019 FINDINGS: Support devices: None. Heart: Stable cardiomegaly. Lungs/Pleura: Basilar effusion persists with associated volume loss/opacity remains right greater barbara n left. There is mild superimposed vascular congestion/edema. Basilar aeration is mildly improved. Additional findings: None. IMPRESSION: Improving basilar aeration. Signer Name: Francois Ang MD Signed: 09/27/2019 8:38 AM Workstation Name: [id number]
[2019-09-27] MEDS ORDERED: SODIUM CHLORIDE 0.9% 100 ML IV PRN (09:04)
--- NOTE | 2019-09-27 09:04 | Consultation ---
History of Present Illness - Reason for Consult Consult date: 09/27/19 end stage renal disease - History of Present Illness This is a 72 year old male patient well known to our service with history significant for Type 2 diabetes mellitus, Hypertension, ESRD HD (TTS schedule at [facility]), chronic paroxysmal A.fib, chronic bronchospasm, PTSD, chronic pain, CHF, obstructive sleep apnea (noncompliant with home cpap), Anemia, chronic bilateral pleural effusion and medical non-compliance who presented to [facility] ED 09/26 with c/o sob since the previous night. He has had multiple hospital admissions between [facility]. He was most recently discharged from [facility] on 09/25/19 afted treated for missed HD and volume overload. Inspite multiple counseling he adamantly refusing to go to outpatient center and presents to one of the hospital with various complaints. He denies chest pain, fever, chills, cough, nausea, vomiting, diarrhea, abdominal pain, rash or leg swelling. At time of admission and consultation, labs significant for hemoglobin 8.1, creatinine 5.[address] of head negative for any acute findings. CT chest showed large R sided pleural effusion. Nephrology was consulted for further evaluation and treatment of end stage renal disease and maintenance HD. Past History Past Medical History: other (See HPI) Medications and Allergies Allergies Allergy/AdvReac Type Severity Reaction Status Date / Time aspirin Allergy Unknown Verified 02/20/19 22:06 pork derived (porcine) Allergy Rash Verified 02/20/19 22:06 venom-honey bee Allergy Anaphylaxis Verified 02/20/19 22:06 [bee venom (honey bee)] Pork/Porcine Containing AdvReac Severe Nausea,VOMI Verified 02/20/19 22:06 Products TING Home Medications Medication Instructions Recorded Confirmed Last Taken Type Epoetin Prashant 10,000 Unit [Procrit] 10,000 unit SUB-Q KATERYNA PRN vial 05/22/19 07/09/19 Unknown Rx Acetaminophen [Acetaminophen TAB] 1 tab PO Q4H PRN #15 tablet 07/08/19 07/09/19 Unknown Rx AtorvaSTATin [Lipitor] 40 mg PO QHS #30 07/23/19 Unknown Rx Lidocain2.5%/Prilocai2.5% [Emla] 1 applic TP MoWeFr tube 07/23/19 Unknown Rx amLODIPine 20 mg PO DAILY #30 07/23/19 Unknown Rx bisacodyL [Dulcolax tab] 5 mg PO DAILY PRN #10 tab 07/29/19 Unknown Rx Sodium Phosphate,[place]-Dibasic 133 ml RC ONCE #1 enema 07/30/19 Unknown Rx [Fleet Enema] Metoprolol [Lopressor TAB] 25 mg PO BID #30 tablet 08/24/19 Unknown Rx Oxycodone HCl [oxyCODONE] 10 mg PO Q6H PRN #14 tab 08/25/19 Unknown Rx oxyCODONE /ACETAMINOPHEN [Percocet 1 tab PO BID PRN #6 tablet 09/11/19 Unknown Rx 5/325 mg] Review of Systems Constitutional: no weight loss, no weight gain, no fever, no chills, no anorexia, no weakness Cardiovascular: shortness of breath, high blood pressure, no chest pain, no orthopnea, no edema, no syncope, no lightheadedness, no leg edema Respiratory: shortness of breath, no cough, no dyspnea on exertion Gastrointestinal: no abdominal pain, no nausea, no vomiting, no diarrhea, no melena Genitourinary Male: no dysuria, no hematuria Musculoskeletal: no muscle weakness Neurological: no paralysis, no weakness, no convulsions, no aphasia, no change in speech, no change in mentation, no confusion Exam - Vital Signs Vital signs: Vital Signs Temp Pulse Resp BP Pulse Ox 98.6 F 118 H 22 118/56 100 09/27/19 06:02 09/27/19 06:02 09/27/19 06:02 09/27/19 06:02 09/27/19 06:02 - General Appearance General appearance: well-developed, appears stated age, other (no distress) EENT: ATNC, PERRL, mucous membranes moist, hearing intact, vision intact Neck: Present: neck supple, trachea midline Respiratory: Clear to Ascultation, Decreased Breath Sounds (R side) Heart: regular, tachycardia, S1S2 Gastrointestinal: Present: normoactive bowel sounds. Absent: tenderness, distended Integumentary: no rash, warm and dry Neurologic: no focal deficit, no asterixis, alert and oriented x3 Musculoskeletal: Present: other (no edema, L forearm amputated, R arm AVF) Results - Lab Results 09/27/19 07:17 09/27/19 07:17 Most recent lab results Calcium 9.0 mg/dL (8.4-10.2) 09/27/19 07:17 Phosphorus 3.40 mg/dL (2.5-4.5) 09/27/19 07:17 Magnesium 1.90 mg/dL (1.7-2.3) 09/27/19 07:17 Assessment and Plan 1.End stage renal disease on HD: TTS schedule at [facility]. Multiple hospitalizations 2/2 volume overload due to noncompliance with HD treatments. Meds dosage based on GFR. Hemodialysis: 09/26. 2. FEN: Volume overload, UF with HD as tolerated, monitor. Monitor lytes and volume status. 3. Anemia: Epogen with HD. 4. Suspected COVID-19. 5. Paroxysmal A.fib: On Eliquis. 6. Chronic CHF w/ reduced EF: Monitor volume status. 7. Chronic pleural effusion. 8. Type 2 diabetes mellitus: Monitor blood glucose. 9. HTN.
[2019-09-27] MEDS ORDERED: HYDROcodone/ACETAMINOPHEN 10-325MG TAB PO ONE (09:45)
[2019-09-27] MEDS ORDERED: EPOETIN ALFA 20,000 UNIT/1 ML INJ SUB-Q PRN (10:00)
[2019-09-27] MEDS ORDERED: diphenhydrAMINE 25 MG CAP PO ONE (11:00)
--- NOTE | 2019-09-27 11:36 | History and Physical Report ---
History of Present Illness Date of examination: 09/27/19 Date of admission: 09/27/19 09:31 Chief complaint: fever, cough, shortness of breath History of present illness: Patient is 72-year-old man with a history of end-stage renal disease on dialysis, hypertension, chronic congestive CHF, atrial fibrillation, coronary artery disease, PTSD, COPD, chronic pain, wheelchair-bound comes emergency room for evaluation. He presents with fever, cough and shortness of breath. patient states his home health nurse says he had a fever. Patient acknowledges shortness of breath , worse on exertion and cough. In addition, he missed dialysis for one day. Patient was seen and valuated in [place] and will be admitted for further management and to r/o [facility]- infection. PUI?: Yes Past History Past Medical History: atrial fib, arthritis, COPD, diabetes, DVT, ESRD, heart failure, hypertension Social history: lives with family. denies: smoking, alcohol abuse Family history: no significant family history Medications and Allergies Allergies Allergy/AdvReac Type Severity Reaction Status Date / Time aspirin Allergy Unknown Verified 02/20/19 22:06 pork derived (porcine) Allergy Rash Verified 02/20/19 22:06 venom-honey bee Allergy Anaphylaxis Verified 02/20/19 22:06 [bee venom (honey bee)] Pork/Porcine Containing AdvReac Severe Nausea,VOMI Verified 02/20/19 22:06 Products TING Home Medications Medication Instructions Recorded Confirmed Last Taken Type Epoetin Prashant 10,000 Unit [Procrit] 10,000 unit SUB-Q KATERYNA PRN vial 05/22/19 07/09/19 Unknown Rx Acetaminophen [Acetaminophen TAB] 1 tab PO Q4H PRN #15 tablet 07/08/19 07/09/19 Unknown Rx AtorvaSTATin [Lipitor] 40 mg PO QHS #30 07/23/19 Unknown Rx Lidocain2.5%/Prilocai2.5% [Emla] 1 applic TP MoWeFr tube 07/23/19 Unknown Rx amLODIPine 20 mg PO DAILY #30 07/23/19 Unknown Rx bisacodyL [Dulcolax tab] 5 mg PO DAILY PRN #10 tab 07/29/19 Unknown Rx Sodium Phosphate,[place]-Dibasic 133 ml RC ONCE #1 enema 07/30/19 Unknown Rx [Fleet Enema] Metoprolol [Lopressor TAB] 25 mg PO BID #30 tablet 08/24/19 Unknown Rx Oxycodone HCl [oxyCODONE] 10 mg PO Q6H PRN #14 tab 08/25/19 Unknown Rx oxyCODONE /ACETAMINOPHEN [Percocet 1 tab PO BID PRN #6 tablet 09/11/19 Unknown Rx 5/325 mg] Active Meds: Active Medications Epoetin Prashant (Procrit) 20,000 unit SUB-Q KATERYNA PRN PRN Reason: hemodialysis Sodium Chloride (Nacl 0.9%) 100 mls @ 999 mls/hr IV KATERYNA PRN PRN Reason: Hypotension Review of Systems All systems: negative (No abd pain, no chest pain, no abd pain. All other systems reviewed and are negative.) Exam - Physical Exam Narrative exam: 72-year-old man with a history of end-stage renal disease on dialysis, hypertension, CHF, A. fib, coronary artery disease, PTSD, COPD, chronic pain, wheelchair-bound comes emergency room for evaluation. He complains of shortness of breath, fatigue, pain all over including his back, arms, legs, chest, all over. Patient states that he had dialysis on Monday, they took off 2 L, however they usually take 3 L off. The patient is hyperkalemic, experiencing shortness of breath for which she will be admitted - Constitutional Vitals: Temp Pulse Resp BP Pulse Ox 98.6 F 122 H 24 160/90 100 09/27/19 06:02 09/27/19 07:30 09/27/19 08:46 09/27/19 07:30 09/27/19 08:46 Results - Labs CBC & Chem 7: 09/27/19 07:17 09/27/19 07:17 Labs: Abnormal lab results 09/27/19 09/27/19 09/27/19 Range/Units 07:17 07:17 07:17 WBC 2.6 L (4.5-11.0) K/mm3 RBC 2.57 L (3.65-5.03) M/mm3 Hgb 8.1 L (11.8-15.2) gm/dl Hct 25.6 L (35.5-45.6) % MCV 100 H (84-94) fl RDW 17.1 H (13.2-15.2) % Plt Count 78 L (140-440) K/mm3 Long % (Auto) 9.8 H (0.0-7.3) % Lymph # 0.7 L (1.2-5.4) K/mm3 Seg Neutrophils # 1.6 L (1.8-7.7) K/mm3 PT 19.1 H (12.2-14.9) Sec. INR 1.58 H (0.87-1.13) D-Dimer 737.21 H (0-234) ng/mlDDU BUN 33 H (9-20) mg/dL Creatinine 5.1 H (0.8-1.5) mg/dL Ferritin (13.0-400.0) ng/mL Alkaline Phosphatase 184 H (35-129) units/L Albumin 3.1 L (3.9-5) g/dL 09/27/19 Range/Units 07:17 WBC (4.5-11.0) K/mm3 RBC (3.65-5.03) M/mm3 Hgb (11.8-15.2) gm/dl Hct (35.5-45.6) % MCV (84-94) fl RDW (13.2-15.2) % Plt Count (140-440) K/mm3 Long % (Auto) (0.0-7.3) % Lymph # (1.2-5.4) K/mm3 Seg Neutrophils # (1.8-7.7) K/mm3 PT (12.2-14.9) Sec. INR (0.87-1.13) D-Dimer (0-234) ng/mlDDU BUN (9-20) mg/dL Creatinine (0.8-1.5) mg/dL Ferritin 457.4 H (13.0-400.0) ng/mL Alkaline Phosphatase (35-129) units/L Albumin (3.9-5) g/dL Assessment and Plan Fever, cough, SOB PUI to r/o Covid admit to 3rd floor nasopharyngeal swab for Covid Contact isolation, Droplet isolation ESRD on dialysis Nephrology following Afib continue Eliquis Chronic CHF EF 25-30% History of DVT On Eliquis CAD, non obstructive Medical management Nonischemic cardiomyopathy, EF 25-30% Hypertension Right pleural effusion,large Will consult pulm Thrombocytopenia Full code status
--- NOTE | 2019-09-27 12:53 | Cat Scan Report ---
CT chest w con INDICATION: Cough elevated dimer HI. TECHNIQUE: All CT scans at this location are performed using the following dose modulation technique: Automated exposure control. CONTRAST: 40 mL IV injection. COMPARISON: CT chest 03/09/2019. FINDINGS: Development of large right-sided effusion with associated volume loss. Mild volume loss/sca rring remains at the left base. Mild edema is suspected. Negative for significant infiltrate or domin ant mass lesion. No mediastinal mass or adenopathy. Coronary artery calcification and cardiomegaly are again noted. Imaging of the upper abdomen demonstrates right atherosclerotic calcification of the aorta and branch es. Changes of end-stage renal disease are again noted including cystic degeneration. IMPRESSION: 1. Large right effusion with associated volume loss. 2. Left basilar volume loss/scarring. 3. Changes of chronic renal failure. Signer Name: Francois Ang MD Signed: 09/27/2019 12:48 PM Workstation Name: [id number]
[2019-09-27] MEDS ORDERED: ONDANSETRON 4 MG/2 ML INJ IV PRN (15:16)
[2019-09-27] MEDS ORDERED: ACETAMINOPHEN 325 MG TAB PO PRN (15:16)
[2019-09-27] MEDS: METOPROLOL TARTRATE 25 MG TAB PO SCH ×2 (15:57→22:08)
[2019-09-27] MEDS: diphenhydrAMINE 50 MG/ML VIAL IV PRN ×2 (15:58→22:24)
[2019-09-27] MEDS: HYDROcodone/ACETAMINOPHEN 5-325 MG TAB PO PRN ×2 (15:59→22:08)
[2019-09-28] MEDS: HYDROcodone/ACETAMINOPHEN 5-325 MG TAB PO PRN ×4 (03:08→21:22)
[2019-09-28] MEDS: diphenhydrAMINE 50 MG/ML VIAL IV PRN ×4 (03:09→21:23)
[2019-09-28] MEDS ORDERED: SODIUM CHLORIDE 0.9% 100 ML IV PRN (08:08)
--- NOTE | 2019-09-28 08:10 | Progress Note ---
Assessment and Plan 1.End stage renal disease on HD: TTS schedule at [facility]. Multiple hospitalizations 2/2 volume overload due to noncompliance with HD treatments. Meds dosage based on GFR. Hemodialysis: 09/26, 09/27. 2. FEN: Volume overload, UF with HD as tolerated, monitor. Monitor lytes and volume status. 3. Anemia: Epogen with HD. 4. Suspected COVID-19. 5. Paroxysmal A.fib: Was on Eliquis. 6. Chronic CHF w/ reduced EF: Monitor volume status. 7. Chronic pleural effusion. 8. Type 2 diabetes mellitus: Monitor blood glucose. 9. HTN. - Subjective: Patient was seen and examined at the bedside. Doing ok. - General Appearance General appearance: well-developed, appears stated age, no distress HEENT: ATNC, PERRL, mucous membranes moist, hearing intact, vision intact Neck: neck supple, trachea midline Respiratory: Clear to Ascultation, Decreased Breath Sounds (R side) Heart: regular, tachycardia, S1S2 Gastrointestinal: soft, normoactive bowel sounds, not tender, not distended Integumentary: no rash, warm and dry Neurologic: no focal deficit, no asterixis, alert and oriented x3 Ext: no edema, L forearm amputated Hemodialysis access: R arm AVF Subjective Date of service: 09/28/19 PUI?: Yes Objective - Vital Signs Vital signs: Vital Signs - 12hr 09/27/19 09/27/19 09/28/19 21:07 22:08 04:12 Temperature 97.6 F 98.3 F Pulse Rate 121 H 121 H 114 H Respiratory 20 18 24 Rate Blood Pressure 133/92 133/92 125/88 O2 Sat by Pulse 100 89 Oximetry 09/28/19 06:43 Temperature Pulse Rate Respiratory Rate Blood Pressure O2 Sat by Pulse 100 Oximetry - Lab 09/28/19 10:25 09/28/19 10:25 Most recent lab results Calcium 9.0 mg/dL (8.4-10.2) 09/27/19 07:17 Phosphorus 3.40 mg/dL (2.5-4.5) 09/27/19 07:17 Magnesium 1.90 mg/dL (1.7-2.3) 09/27/19 07:17 Medications & Allergies - Medications Allergies/Adverse Reactions: Allergies aspirin Allergy (Verified 02/20/19 22:06) Unknown stomach cramps pork derived (porcine) Allergy (Verified 02/20/19 22:06) Rash venom-honey bee [bee venom (honey bee)] Allergy (Verified 02/20/19 22:06) Anaphylaxis Pork/Porcine Containing Products Adverse Reaction (Severe, Verified 02/20/19 22:06) Nausea,VOMITING Home Medications: Home Medications Medication Instructions Recorded Confirmed Last Taken Type Epoetin Prashant 10,000 Unit [Procrit] 10,000 unit SUB-Q KATERYNA PRN vial 05/22/19 09/28/19 09/28/19 Rx Acetaminophen [Acetaminophen TAB] 1 tab PO Q4H PRN #15 tablet 07/08/19 09/28/19 Unknown Rx AtorvaSTATin [Lipitor] 40 mg PO QHS #30 07/23/19 09/28/19 Unknown Rx Lidocain2.5%/Prilocai2.5% [Emla] 1 applic TP MoWeFr tube 07/23/19 09/28/19 Unknown Rx amLODIPine 20 mg PO DAILY #30 07/23/19 09/28/19 Unknown Rx bisacodyL [Dulcolax tab] 5 mg PO DAILY PRN #10 tab 07/29/19 09/28/19 Unknown Rx Sodium Phosphate,[place]-Dibasic 133 ml RC ONCE #1 enema 07/30/19 09/28/19 Unknown Rx [Fleet Enema] Metoprolol [Lopressor TAB] 25 mg PO BID #30 tablet 08/24/19 09/28/19 Unknown Rx Oxycodone HCl [oxyCODONE] 10 mg PO Q6H PRN #14 tab 08/25/19 09/28/19 Unknown Rx oxyCODONE /ACETAMINOPHEN [Percocet 1 tab PO BID PRN #6 tablet 09/11/19 09/28/19 Unknown Rx 5/325 mg] Active Medications: Generic Name Dose Route Start Last Admin Trade Name Freq PRN Reason Stop Dose Admin Acetaminophen 650 mg 09/27/19 15:16 Tylenol PO Q4H PRN Pain MILD(1-3)/Fever >100.5/DOUGLAS Acetaminophen/Hydrocodone Bitart 1 each 09/27/19 15:16 09/28/19 03:08 [place] 5/325 PO 1 each Q6H PRN Administration Pain, Moderate (4-6) Diphenhydramine HCl 25 mg 09/27/19 15:33 09/28/19 03:09 Benadryl IV 25 mg Q6H PRN Administration Itching or hives Epoetin Prashant 20,000 unit 09/27/19 10:00 Procrit SUB-Q KATERYNA PRN hemodialysis Sodium Chloride 100 mls @ 999 mls/hr 09/27/19 09:04 Nacl 0.9% IV KATERYNA PRN Hypotension Sodium Chloride 100 mls @ 999 mls/hr 09/28/19 08:08 Nacl 0.9% IV KATERYNA PRN Hypotension Metoprolol Tartrate 25 mg 09/27/19 16:00 09/27/19 22:08 Metoprolol PO 25 mg BID BEAN Administration Ondansetron HCl 4 mg 09/27/19 15:16 09/28/19 05:17 Zofran IV 4 mg Q8H PRN Administration Nausea And Vomiting Sodium Chloride 10 ml 09/27/19 22:00 09/27/19 22:03 Sodium Chloride Flush Syringe 10 Ml IV 10 ml BID BEAN Administration Sodium Chloride 10 ml 09/27/19 15:16 Sodium Chloride Flush Syringe 10 Ml IV PRN PRN LINE FLUSH
[2019-09-28] MEDS: METOPROLOL TARTRATE 25 MG TAB PO SCH ×2 (09:27→21:23)
--- NOTE | 2019-09-28 10:39 | Progress Note ---
Assessment and Plan Assessment and plan: Fever, cough, SOB PUI to r/o Covid admitted to 3rd floor nasopharyngeal swab for Covid done and sent yesterday 09/27 Contact isolation, Droplet isolation ESRD on dialysis Nephrology following Afib Eliquis discontinued Chronic CHF EF 25-30% History of DVT On Eliquis CAD, non obstructive Medical management Nonischemic cardiomyopathy, EF 25-30% Hypertension Right pleural effusion,large evaluated by Pulm Will repeat CXR Thrombocytopenia chronic Full code status History Interval history: patient with cough, SOB and fever PUI?: Yes Hospitalist Physical - Physical exam Narrative exam: Gen: Not in acute distress, lying in bed, malnourished HEENT: Normocephalic, atraumatic Neck: supple, no JVD Heart: S1 and S2 reg, no murmurs, rubs or gallop Lungs: Clear to auscultation bilaterally, Abd: soft, non tender, non distended, normal BS, Ext: Left forearm amputation, no clubbing, no cyanosis Neuro: Awake, alert, oriented X 3, - Constitutional Vitals: Temp Pulse Resp BP Pulse Ox 98.3 F 111 H 24 136/91 100 09/28/19 04:12 09/28/19 09:27 09/28/19 04:12 09/28/19 09:42 09/28/19 09:25 ROGER score - Roger Score Age > 65: (1) Yes Aspirin use within the Past 7 Days: (1) Yes 3 or more CAD Risk Factors: (1) Yes 2 or more Angina events in past 24 hrs: (1) Yes Known CAD with more than 50% Stenosis: (0) No Elevated Cardiac Markers: (1) Yes ST Deviation Greater than 0.5mm: (0) No ROGER Score: 5 Results - Labs CBC & Chem 7: 09/28/19 10:25 09/28/19 10:25 Labs: Laboratory Last Values WBC 2.6 K/mm3 (4.5-11.0) L 09/27/19 07:17 RBC 2.57 M/mm3 (3.65-5.03) L 09/27/19 07:17 Hgb 8.1 gm/dl (11.8-15.2) L 09/27/19 07:17 Hct 25.6 % (35.5-45.6) L 09/27/19 07:17 MCV 100 fl (84-94) H 09/27/19 07:17 MCH 32 pg (28-32) 09/27/19 07:17 MCHC 32 % (32-34) 09/27/19 07:17 RDW 17.1 % (13.2-15.2) H 09/27/19 07:17 Plt Count 78 K/mm3 (140-440) L 09/27/19 07:17 Lymph % (Auto) 25.2 % (13.4-35.0) 09/27/19 07:17 [place] % (Auto) 9.8 % (0.0-7.3) H 09/27/19 07:17 Eos % (Auto) 4.1 % (0.0-4.3) 09/27/19 07:17 Baso % (Auto) 1.1 % (0.0-1.8) 09/27/19 07:17 Lymph # 0.7 K/mm3 (1.2-5.4) L 09/27/19 07:17 [place] # 0.3 K/mm3 (0.0-0.8) 09/27/19 07:17 Eos # 0.1 K/mm3 (0.0-0.4) 09/27/19 07:17 Baso # 0.0 K/mm3 (0.0-0.1) 09/27/19 07:17 Seg Neutrophils % 59.8 % (40.0-70.0) 09/27/19 07:17 Seg Neutrophils # 1.6 K/mm3 (1.8-7.7) L 09/27/19 07:17 PT 19.1 Sec. (12.2-14.9) H 09/27/19 07:17 INR 1.58 (0.87-1.13) H 09/27/19 07:17 APTT 36.0 Sec. (24.2-36.6) 09/27/19 07:17 D-Dimer 737.21 ng/mlDDU (0-234) H 09/27/19 07:17 Sodium 140 mmol/L (137-145) 09/27/19 07:17 Potassium 4.6 mmol/L (3.6-5.0) 09/27/19 07:17 Chloride 100.4 mmol/L (98-107) 09/27/19 07:17 Carbon Dioxide 24 mmol/L (22-30) 09/27/19 07:17 Anion Gap 20 mmol/L 09/27/19 07:17 BUN 33 mg/dL (9-20) H 09/27/19 07:17 Creatinine 5.1 mg/dL (0.8-1.5) H 09/27/19 07:17 Estimated GFR 14 ml/min 09/27/19 07:17 BUN/Creatinine Ratio 6 % 09/27/19 07:17 Glucose 87 mg/dL (75-100) 09/27/19 07:17 Lactic Acid 0.90 mmol/L (0.7-2.0) 09/27/19 07:17 Calcium 9.0 mg/dL (8.4-10.2) 09/27/19 07:17 Phosphorus 3.40 mg/dL (2.5-4.5) 09/27/19 07:17 Magnesium 1.90 mg/dL (1.7-2.3) 09/27/19 07:17 Ferritin 457.4 ng/mL (13.0-400.0) H 09/27/19 07:17 Total Bilirubin 0.40 mg/dL (0.1-1.2) 09/27/19 07:17 Direct Bilirubin < 0.2 mg/dL (0-0.2) 09/27/19 07:17 Indirect Bilirubin 0.2 mg/dL 09/27/19 07:17 AST 17 units/L (5-40) 09/27/19 07:17 ALT 11 units/L (7-56) 09/27/19 07:17 Alkaline Phosphatase 184 units/L (35-129) H 09/27/19 07:17 Lactate Dehydrogenase 159 units/L (91-180) 09/27/19 07:17 C-Reactive Protein 0.50 mg/dL (0.00-1.30) 09/27/19 07:17 NT-Pro-B Natriuret Pep > 35056 pg/mL (0-900) H 09/27/19 07:17 Total Protein 7.5 g/dL (6.3-8.2) 09/27/19 07:17 Albumin 3.1 g/dL (3.9-5) L 09/27/19 07:17 Albumin/Globulin Ratio 0.7 % 09/27/19 07:17 Procalcitonin 0.19 ng/mL (<0.15) 09/27/19 07:17 Microbiology: Microbiology 09/27/19 Unknown Peripheral/Venous Blood Culture - Preliminary NO GROWTH AFTER 24 HOURS 09/27/19 Unknown Peripheral/Venous Blood Culture - Preliminary NO GROWTH AFTER 24 HOURS [place]/IV: Voiding Method Bedpan IV Catheter Type [Right Peripheral IV External Jugular] Active Medications - Current Medications Current Medications: Generic Name Dose Route Start Last Admin Trade Name Freq PRN Reason Stop Dose Admin Acetaminophen 650 mg 09/27/19 15:16 Tylenol PO Q4H PRN Pain MILD(1-3)/Fever >100.5/DOUGLAS Acetaminophen/Hydrocodone Bitart 1 each 09/27/19 15:16 09/28/19 09:12 [place] 5/325 PO 1 each Q6H PRN Administration Pain, Moderate (4-6) Diphenhydramine HCl 25 mg 09/27/19 15:33 09/28/19 09:16 Benadryl IV 25 mg Q6H PRN Administration Itching or hives Epoetin Prashant 20,000 unit 09/27/19 10:00 Procrit SUB-Q KATERYNA PRN hemodialysis Sodium Chloride 100 mls @ 999 mls/hr 09/27/19 09:04 Nacl 0.9% IV KATERYNA PRN Hypotension Sodium Chloride 100 mls @ 999 mls/hr 09/28/19 08:08 Nacl 0.9% IV KATERYNA PRN Hypotension Metoprolol Tartrate 25 mg 09/27/19 16:00 09/28/19 09:27 Metoprolol PO 25 mg BID BEAN Administration Ondansetron HCl 4 mg 09/27/19 15:16 09/28/19 05:17 Zofran IV 4 mg Q8H PRN Administration Nausea And Vomiting Sodium Chloride 10 ml 09/27/19 22:00 09/28/19 09:49 Sodium Chloride Flush Syringe 10 Ml IV 10 ml BID BEAN Administration Sodium Chloride 10 ml 09/27/19 15:16 Sodium Chloride Flush Syringe 10 Ml IV PRN PRN LINE FLUSH
[2019-09-28 10:43] LABS: Hematocrit 29.6 % (35.5-45.6); Hemoglobin 9.3 gm/dl (11.8-15.2); Mean Corpuscular HGB Conc 32 % (32-34); Mean Corpuscular Volume 101 fl (84-94); Red Blood Count 2.95 M/mm3 (3.65-5.03); Red Cell Distribution Width 17.3 % (13.2-15.2)
[2019-09-28 10:48] LABS: Platelet Count 81 K/mm3 (140-440)
[2019-09-28 11:03] LABS: Calcium 9.6 mg/dL (8.4-10.2)
--- NOTE | 2019-09-28 12:48 | Consultation ---
History of Present Illness Consult date: 09/28/19 Requesting physician: ENEDINA WASHINTGON Reason for consult: pleural effusion History of present illness: 72 y/o male, well known to me and this hospital as he is admitted almost every month presents with dyspnea and needing HD per chart also, with reported outside fevers. Pulmonary has been consulted for recurrent right pleural effusion. This has been tapped several times in the past. It is a transudate. Patient is noncompliant with HD therapy. He has no family support and pleurx could not be placed for that matter. He is usually comfortable with the effusion and it has never had to be drained in an emergent basis. Past History Past Medical History: atrial fib, arthritis, COPD, diabetes, DVT, ESRD, heart failure, hypertension Social history: lives with family. denies: smoking, alcohol abuse Family history: no significant family history Medications and Allergies Allergies Allergy/AdvReac Type Severity Reaction Status Date / Time aspirin Allergy Unknown Verified 02/20/19 22:06 pork derived (porcine) Allergy Rash Verified 02/20/19 22:06 venom-honey bee Allergy Anaphylaxis Verified 02/20/19 22:06 [bee venom (honey bee)] Pork/Porcine Containing AdvReac Severe Nausea,VOMI Verified 02/20/19 22:06 Products TING Home Medications Medication Instructions Recorded Confirmed Last Taken Type Epoetin Prashant 10,000 Unit [Procrit] 10,000 unit SUB-Q KATERYNA PRN vial 05/22/19 07/09/19 Unknown Rx Acetaminophen [Acetaminophen TAB] 1 tab PO Q4H PRN #15 tablet 07/08/19 07/09/19 Unknown Rx AtorvaSTATin [Lipitor] 40 mg PO QHS #30 07/23/19 Unknown Rx Lidocain2.5%/Prilocai2.5% [Emla] 1 applic TP MoWeFr tube 07/23/19 Unknown Rx amLODIPine 20 mg PO DAILY #30 07/23/19 Unknown Rx bisacodyL [Dulcolax tab] 5 mg PO DAILY PRN #10 tab 07/29/19 Unknown Rx Sodium Phosphate,[place]-Dibasic 133 ml RC ONCE #1 enema 07/30/19 Unknown Rx [Fleet Enema] Metoprolol [Lopressor TAB] 25 mg PO BID #30 tablet 08/24/19 Unknown Rx Oxycodone HCl [oxyCODONE] 10 mg PO Q6H PRN #14 tab 08/25/19 Unknown Rx oxyCODONE /ACETAMINOPHEN [Percocet 1 tab PO BID PRN #6 tablet 09/11/19 Unknown Rx 5/325 mg] Active Meds: Active Medications Acetaminophen (Tylenol) 650 mg PO Q4H PRN PRN Reason: Pain MILD(1-3)/Fever >100.5/DOUGLAS Acetaminophen/Hydrocodone Bitart ([place] 5/325) 1 each PO Q6H PRN PRN Reason: Pain, Moderate (4-6) Last Admin: 09/28/19 09:12 Dose: 1 each Documented by: Diphenhydramine HCl (Benadryl) 25 mg IV Q6H PRN PRN Reason: Itching or hives Last Admin: 09/28/19 09:16 Dose: 25 mg Documented by: Epoetin Prashant (Procrit) 20,000 unit SUB-Q KATERYNA PRN PRN Reason: hemodialysis Sodium Chloride (Nacl 0.9%) 100 mls @ 999 mls/hr IV KATERYNA PRN PRN Reason: Hypotension Sodium Chloride (Nacl 0.9%) 100 mls @ 999 mls/hr IV KATERYNA PRN PRN Reason: Hypotension Metoprolol Tartrate (Metoprolol) 25 mg PO BID [facility] Last Admin: 09/28/19 09:27 Dose: 25 mg Documented by: Ondansetron HCl (Zofran) 4 mg IV Q8H PRN PRN Reason: Nausea And Vomiting Last Admin: 09/28/19 05:17 Dose: 4 mg Documented by: Sodium Chloride (Sodium Chloride Flush Syringe 10 Ml) 10 ml IV BID [facility] Last Admin: 09/28/19 09:49 Dose: 10 ml Documented by: Sodium Chloride (Sodium Chloride Flush Syringe 10 Ml) 10 ml IV PRN PRN PRN Reason: LINE FLUSH Review of Systems All systems: negative Physical Examination Vital signs: Vital Signs Temp Pulse Resp BP Pulse Ox 98.6 F 118 H 22 118/56 100 09/27/19 06:02 09/27/19 06:02 09/27/19 06:02 09/27/19 06:02 09/27/19 06:02 General appearance: other (reviewed IMS exam in an effor to save PPE) Results - Laboratory Findings CBC and BMP: 09/28/19 10:25 09/28/19 10:25 PT/INR, D-dimer PT 19.1 Sec. (12.2-14.9) H 09/27/19 07:17 INR 1.58 (0.87-1.13) H 09/27/19 07:17 D-Dimer 737.21 ng/mlDDU (0-234) H 09/27/19 07:17 Abnormal lab findings: Abnormal Labs 09/27/19 09/27/19 09/27/19 07:17 07:17 07:17 WBC 2.6 L RBC 2.57 L Hgb 8.1 L Hct 25.6 L MCV 100 H RDW 17.1 H Plt Count 78 L [place] % (Auto) 9.8 H Lymph # 0.7 L Seg Neutrophils # 1.6 L PT 19.1 H INR 1.58 H D-Dimer 737.21 H Potassium Chloride BUN 33 H Creatinine 5.1 H Ferritin Alkaline Phosphatase 184 H NT-Pro-B Natriuret Pep > 59177 H Albumin 3.1 L 09/27/19 09/28/19 09/28/19 07:17 10:25 10:25 WBC 3.1 L RBC 2.95 L Hgb 9.3 L Hct 29.6 L MCV 101 H RDW 17.3 H Plt Count 81 L [place] % (Auto) Lymph # Seg Neutrophils # PT INR D-Dimer Potassium 5.4 H Chloride 97.2 L BUN 25 H Creatinine 3.5 H Ferritin 457.4 H Alkaline Phosphatase NT-Pro-B Natriuret Pep Albumin - Diagnostic Findings Chest x-ray: image reviewed Assessment and Plan 72 y/o male with ESRD on HD and recurrent right pleural effusions. 1. If patient is symptomatic, can ask IR to drain but would wait until after HD and repeat CXR to see if effusion is still large enough to tap. 2. Patient is not a candidate for pleurx. He has no one at home that can help him manage Stable sats on 2 liters NC Will see as needed. Call if questions.
[2019-09-28] MEDS ORDERED: SODIUM CHLORIDE 0.9% 1000 ML 2,000 ML ONE (13:52)
[2019-09-28] MEDS ORDERED: HEPARIN 5,000 UNIT/1 ML VIAL SUB-Q SCH (15:00)
[2019-09-29] MEDS: HYDROcodone/ACETAMINOPHEN 5-325 MG TAB PO PRN ×4 (03:43→21:42)
[2019-09-29] MEDS: diphenhydrAMINE 50 MG/ML VIAL IV PRN ×4 (03:44→21:42)
[2019-09-29] MEDS ORDERED: ALBUTEROL 8.5 GM INHALATION IH PRN (08:16)
[2019-09-29] MEDS: METOPROLOL TARTRATE 25 MG TAB PO SCH ×2 (09:45→21:42)
--- NOTE | 2019-09-29 10:23 | Progress Note ---
Assessment and Plan Assessment and plan: Fever, cough, SOB Was PUI , now negative for Covid19 admitted to 3rd floor nasopharyngeal swab for Covid done and sent 09/27 Contact isolation, Droplet isolation ESRD on dialysis Nephrology following Afib Eliquis discontinued Chronic CHF EF 25-30% History of DVT On Eliquis CAD, non obstructive Medical management Nonischemic cardiomyopathy, EF 25-30% Hypertension Right pleural effusion,large evaluated by Pulm Will repeat CXR tomorrow Thrombocytopenia chronic Full code status 09/29/19 called by Nurse that Negative for Covid. Will transfer to tele. repeat CXR tomorrow History Interval history: patient with cough, SOB and fever PUI?: Yes Hospitalist Physical - Physical exam Narrative exam: Gen: Not in acute distress, lying in bed, malnourished HEENT: Normocephalic, atraumatic Neck: supple, no JVD Heart: S1 and S2 reg, no murmurs, rubs or gallop Lungs: Clear to auscultation bilaterally, Abd: soft, non tender, non distended, normal BS, Ext: Left forearm amputation, no clubbing, no cyanosis Neuro: Awake, alert - Constitutional Vitals: Temp Pulse Resp BP Pulse Ox 97.5 F L 117 H 18 123/91 100 09/29/19 05:19 09/29/19 05:19 09/29/19 05:19 09/29/19 05:19 09/29/19 08:15 ROGER score - Roger Score Age > 65: (1) Yes Aspirin use within the Past 7 Days: (1) Yes 3 or more CAD Risk Factors: (1) Yes 2 or more Angina events in past 24 hrs: (1) Yes Known CAD with more than 50% Stenosis: (0) No Elevated Cardiac Markers: (1) Yes ST Deviation Greater than 0.5mm: (0) No ROGER Score: 5 Results - Labs CBC & Chem 7: 09/28/19 10:25 09/28/19 10:25 Labs: Laboratory Last Values WBC 3.1 K/mm3 (4.5-11.0) L 09/28/19 10:25 RBC 2.95 M/mm3 (3.65-5.03) L 09/28/19 10:25 Hgb 9.3 gm/dl (11.8-15.2) L 09/28/19 10:25 Hct 29.6 % (35.5-45.6) L 09/28/19 10:25 MCV 101 fl (84-94) H 09/28/19 10:25 MCH 32 pg (28-32) 09/28/19 10:25 MCHC 32 % (32-34) 09/28/19 10:25 RDW 17.3 % (13.2-15.2) H 09/28/19 10:25 Plt Count 81 K/mm3 (140-440) L 09/28/19 10:25 Lymph % (Auto) 25.2 % (13.4-35.0) 09/27/19 07:17 [place] % (Auto) 9.8 % (0.0-7.3) H 09/27/19 07:17 Eos % (Auto) 4.1 % (0.0-4.3) 09/27/19 07:17 Baso % (Auto) 1.1 % (0.0-1.8) 09/27/19 07:17 Lymph # 0.7 K/mm3 (1.2-5.4) L 09/27/19 07:17 [place] # 0.3 K/mm3 (0.0-0.8) 09/27/19 07:17 Eos # 0.1 K/mm3 (0.0-0.4) 09/27/19 07:17 Baso # 0.0 K/mm3 (0.0-0.1) 09/27/19 07:17 Seg Neutrophils % 59.8 % (40.0-70.0) 09/27/19 07:17 Seg Neutrophils # 1.6 K/mm3 (1.8-7.7) L 09/27/19 07:17 PT 19.1 Sec. (12.2-14.9) H 09/27/19 07:17 INR 1.58 (0.87-1.13) H 09/27/19 07:17 APTT 36.0 Sec. (24.2-36.6) 09/27/19 07:17 D-Dimer 737.21 ng/mlDDU (0-234) H 09/27/19 07:17 Sodium 138 mmol/L (137-145) 09/28/19 10:25 Potassium 5.4 mmol/L (3.6-5.0) H 09/28/19 10:25 Chloride 97.2 mmol/L (98-107) L 09/28/19 10:25 Carbon Dioxide 25 mmol/L (22-30) 09/28/19 10:25 Anion Gap 21 mmol/L 09/28/19 10:25 BUN 25 mg/dL (9-20) H 09/28/19 10:25 Creatinine 3.5 mg/dL (0.8-1.5) H 09/28/19 10:25 Estimated GFR 21 ml/min 09/28/19 10:25 BUN/Creatinine Ratio 7 % 09/28/19 10:25 Glucose 83 mg/dL (75-100) 09/28/19 10:25 Lactic Acid 0.90 mmol/L (0.7-2.0) 09/27/19 07:17 Calcium 9.6 mg/dL (8.4-10.2) 09/28/19 10:25 Phosphorus 3.40 mg/dL (2.5-4.5) 09/27/19 07:17 Magnesium 1.90 mg/dL (1.7-2.3) 09/27/19 07:17 Ferritin 457.4 ng/mL (13.0-400.0) H 09/27/19 07:17 Total Bilirubin 0.40 mg/dL (0.1-1.2) 09/27/19 07:17 Direct Bilirubin < 0.2 mg/dL (0-0.2) 09/27/19 07:17 Indirect Bilirubin 0.2 mg/dL 09/27/19 07:17 AST 17 units/L (5-40) 09/27/19 07:17 ALT 11 units/L (7-56) 09/27/19 07:17 Alkaline Phosphatase 184 units/L (35-129) H 09/27/19 07:17 Lactate Dehydrogenase 159 units/L (91-180) 09/27/19 07:17 C-Reactive Protein 0.50 mg/dL (0.00-1.30) 09/27/19 07:17 NT-Pro-B Natriuret Pep > 82261 pg/mL (0-900) H 09/27/19 07:17 Total Protein 7.5 g/dL (6.3-8.2) 09/27/19 07:17 Albumin 3.1 g/dL (3.9-5) L 09/27/19 07:17 Albumin/Globulin Ratio 0.7 % 09/27/19 07:17 Procalcitonin 0.19 ng/mL (<0.15) 09/27/19 07:17 Microbiology: Microbiology 09/27/19 Unknown Peripheral/Venous Blood Culture - Preliminary NO GROWTH AFTER 48 HOURS 09/27/19 Unknown Peripheral/Venous Blood Culture - Preliminary NO GROWTH AFTER 48 HOURS Cordero/IV: Voiding Method Urinal IV Catheter Type [Right Peripheral IV External Jugular] Active Medications - Current Medications Current Medications: Generic Name Dose Route Start Last Admin Trade Name Freq PRN Reason Stop Dose Admin Acetaminophen 650 mg 09/27/19 15:16 Tylenol PO Q4H PRN Pain MILD(1-3)/Fever >100.5/DOUGLAS Acetaminophen/Hydrocodone Bitart 1 each 09/27/19 15:16 09/29/19 09:46 [place] 5/325 PO 1 each Q6H PRN Administration Pain, Moderate (4-6) Albuterol 2 puff 09/29/19 08:16 Proair IH Q6HRT PRN Shortness Of Breath Diphenhydramine HCl 25 mg 09/27/19 15:33 09/29/19 09:46 Benadryl IV 25 mg Q6H PRN Administration Itching or hives Epoetin Prashant 20,000 unit 09/27/19 10:00 Procrit SUB-Q KATERYNA PRN hemodialysis Sodium Chloride 100 mls @ 999 mls/hr 09/27/19 09:04 Nacl 0.9% IV KATERYNA PRN Hypotension Sodium Chloride 100 mls @ 999 mls/hr 09/28/19 08:08 Nacl 0.9% IV KATERYNA PRN Hypotension Metoprolol Tartrate 25 mg 09/27/19 16:00 09/29/19 09:45 Metoprolol PO 25 mg BID BEAN Administration Ondansetron HCl 4 mg 09/27/19 15:16 09/28/19 05:17 Zofran IV 4 mg Q8H PRN Administration Nausea And Vomiting Sodium Chloride 10 ml 09/27/19 22:00 09/29/19 09:47 Sodium Chloride Flush Syringe 10 Ml IV 10 ml BID BEAN Administration Sodium Chloride 10 ml 09/27/19 15:16 Sodium Chloride Flush Syringe 10 Ml IV PRN PRN LINE FLUSH
--- NOTE | 2019-09-29 11:22 | Progress Note ---
Assessment and Plan 1.End stage renal disease on HD: TTS schedule at [facility]. Multiple hospitalizations 2/2 volume overload due to noncompliance with HD treatments. Meds dosage based on GFR. Hemodialysis: 09/26, 09/27. 2. FEN: Volume overload, UF with HD as tolerated, monitor. Monitor lytes and volume status. 3. Anemia: Epogen with HD. 4. Suspected COVID-19: Negative results. 5. Paroxysmal A.fib: Was on Eliquis. 6. Chronic CHF w/ reduced EF: Monitor volume status. 7. Chronic pleural effusion. 8. Type 2 diabetes mellitus: Monitor blood glucose. 9. HTN. - Subjective: Patient was seen and examined at the bedside. Doing ok. - General Appearance General appearance: well-developed, appears stated age, no distress HEENT: ATNC, PERRL, mucous membranes moist, hearing intact, vision intact Neck: neck supple, trachea midline Respiratory: Clear to Ascultation, Decreased Breath Sounds bibasal Heart: regular, tachycardia, S1S2 Gastrointestinal: soft, normoactive bowel sounds, not tender, not distended Integumentary: no rash, warm and dry Neurologic: no focal deficit, no asterixis, alert and oriented x3 Ext: no edema, L forearm amputated Hemodialysis access: R arm AVF Subjective Date of service: 09/29/19 PUI?: Yes Objective - Vital Signs Vital signs: Vital Signs - 12hr 09/29/19 09/29/19 09/29/19 05:19 08:15 09:45 Temperature 97.5 F L Pulse Rate 117 H Respiratory 18 Rate Blood Pressure 123/91 Blood Pressure 121/87 [left arm] O2 Sat by Pulse 100 100 100 Oximetry - Lab 09/28/19 10:25 09/28/19 10:25 Most recent lab results Calcium 9.6 mg/dL (8.4-10.2) 09/28/19 10:25 Phosphorus 3.40 mg/dL (2.5-4.5) 09/27/19 07:17 Magnesium 1.90 mg/dL (1.7-2.3) 09/27/19 07:17 Medications & Allergies - Medications Allergies/Adverse Reactions: Allergies aspirin Allergy (Verified 02/20/19 22:06) Unknown stomach cramps pork derived (porcine) Allergy (Verified 02/20/19 22:06) Rash venom-honey bee [bee venom (honey bee)] Allergy (Verified 02/20/19 22:06) Anaphylaxis Pork/Porcine Containing Products Adverse Reaction (Severe, Verified 02/20/19 22:06) Nausea,VOMITING Home Medications: Home Medications Medication Instructions Recorded Confirmed Last Taken Type Epoetin Prashant 10,000 Unit [Procrit] 10,000 unit SUB-Q KATERYNA PRN vial 05/22/19 09/28/19 09/28/19 Rx Acetaminophen [Acetaminophen TAB] 1 tab PO Q4H PRN #15 tablet 07/08/19 09/28/19 Unknown Rx AtorvaSTATin [Lipitor] 40 mg PO QHS #30 07/23/19 09/28/19 Unknown Rx Lidocain2.5%/Prilocai2.5% [Emla] 1 applic TP MoWeFr tube 07/23/19 09/28/19 Unknown Rx amLODIPine 20 mg PO DAILY #30 07/23/19 09/28/19 Unknown Rx bisacodyL [Dulcolax tab] 5 mg PO DAILY PRN #10 tab 07/29/19 09/28/19 Unknown Rx Sodium Phosphate,[place]-Dibasic 133 ml RC ONCE #1 enema 07/30/19 09/28/19 Unknown Rx [Fleet Enema] Metoprolol [Lopressor TAB] 25 mg PO BID #30 tablet 08/24/19 09/28/19 Unknown Rx Oxycodone HCl [oxyCODONE] 10 mg PO Q6H PRN #14 tab 08/25/19 09/28/19 Unknown Rx oxyCODONE /ACETAMINOPHEN [Percocet 1 tab PO BID PRN #6 tablet 09/11/19 09/28/19 Unknown Rx 5/325 mg] Active Medications: Generic Name Dose Route Start Last Admin Trade Name Freq PRN Reason Stop Dose Admin Acetaminophen 650 mg 09/27/19 15:16 Tylenol PO Q4H PRN Pain MILD(1-3)/Fever >100.5/DOUGLAS Acetaminophen/Hydrocodone Bitart 1 each 09/27/19 15:16 09/29/19 09:46 [place] 5/325 PO 1 each Q6H PRN Administration Pain, Moderate (4-6) Albuterol 2 puff 09/29/19 08:16 Proair IH Q6HRT PRN Shortness Of Breath Diphenhydramine HCl 25 mg 09/27/19 15:33 09/29/19 09:46 Benadryl IV 25 mg Q6H PRN Administration Itching or hives Epoetin Prashant 20,000 unit 09/27/19 10:00 Procrit SUB-Q KATERYNA PRN hemodialysis Sodium Chloride 100 mls @ 999 mls/hr 09/27/19 09:04 Nacl 0.9% IV KATERYNA PRN Hypotension Sodium Chloride 100 mls @ 999 mls/hr 09/28/19 08:08 Nacl 0.9% IV KATERYNA PRN Hypotension Metoprolol Tartrate 25 mg 09/27/19 16:00 09/29/19 09:45 Metoprolol PO 25 mg BID BEAN Administration Ondansetron HCl 4 mg 09/27/19 15:16 09/28/19 05:17 Zofran IV 4 mg Q8H PRN Administration Nausea And Vomiting Sodium Chloride 10 ml 09/27/19 22:00 09/29/19 09:47 Sodium Chloride Flush Syringe 10 Ml IV 10 ml BID BEAN Administration Sodium Chloride 10 ml 09/27/19 15:16 Sodium Chloride Flush Syringe 10 Ml IV PRN PRN LINE FLUSH
--- NOTE | 2019-09-29 12:13 | Event Note ---
Date: 09/29/19 Informed by Charge Nurse, rene that Negative Covid per lab.
--- NOTE | 2019-09-29 19:57 | XRay Report ---
CHEST 1 VIEW, 09/29/2019 6:45 PM CLINICAL INFORMATION/INDICATION: Pleural effusion COMPARISON: Chest radiograph, 09/27/2019 FINDINGS: SUPPORT DEVICES: None. HEART: There is stable moderate enlargement of the cardiac silhouette. LUNGS/PLEURA: Bibasilar pleuroparenchymal opacities have not significantly changed. ADDITIONAL FINDINGS: No additional acute findings. IMPRESSION: 1. Stable moderate enlargement of the cardiac silhouette. 2. Stable appearance of bibasilar pleuroparenchymal opacities, favored to represent a combination of pleural effusion and atelectasis. Signer Name: Maria D Dorsey MD Signed: 09/29/2019 7:52 PM Workstation Name: [id number]
[2019-09-30] MEDS: HYDROcodone/ACETAMINOPHEN 5-325 MG TAB PO PRN ×2 (05:51→11:29)
[2019-09-30] MEDS: diphenhydrAMINE 50 MG/ML VIAL IV PRN ×2 (05:52→11:56)
[2019-09-30 06:15] LABS: Calcium 9.5 mg/dL (8.4-10.2)
[2019-09-30] MEDS ORDERED: DEXTROSE 50% IN WATER (25GM) 50 ML SYRINGE IV ONE ×3 (06:20→08:17)
--- NOTE | 2019-09-30 09:33 | Progress Note ---
Assessment and Plan 72 y/o male with ESRD on HD and recurrent right pleural effusions. No new recs, please see below. 1. If patient is symptomatic, can ask IR to drain but would wait until after HD and repeat CXR to see if effusion is still large enough to tap. 2. Patient is not a candidate for pleurx. He has no one at home that can help him manage Stable sats on 2 liters NC Will see as needed. Call if questions. Subjective Date of service: 09/30/19 Interval history: No acute events. Stable on 2 liters NC. CXR is unchanged. PUI?: Yes COVID19: Negative Objective Vital Signs - 12hr 09/29/19 09/30/19 09/30/19 23:28 00:00 05:42 Temperature 98.4 F 97.3 F L Pulse Rate 107 H 106 H 107 H Respiratory 20 18 Rate Blood Pressure 121/87 117/80 O2 Sat by Pulse 100 100 Oximetry 09/30/19 07:41 Temperature 97.7 F Pulse Rate 105 H Respiratory 18 Rate Blood Pressure 121/87 O2 Sat by Pulse 100 Oximetry Constitutional: other (reviewed IMS exam in an effor to save PPE) CBC and BMP: 09/28/19 10:25 09/30/19 07:16 ABG, PT/INR, D-dimer: PT/INR, D-dimer PT 19.1 Sec. (12.2-14.9) H 09/27/19 07:17 INR 1.58 (0.87-1.13) H 09/27/19 07:17 D-Dimer 737.21 ng/mlDDU (0-234) H 09/27/19 07:17 Abnormal lab findings: Abnormal Labs 09/27/19 09/27/19 09/27/19 07:17 07:17 07:17 WBC 2.6 L RBC 2.57 L Hgb 8.1 L Hct 25.6 L MCV 100 H RDW 17.1 H Plt Count 78 L [place] % (Auto) 9.8 H Lymph # 0.7 L Seg Neutrophils # 1.6 L PT 19.1 H INR 1.58 H D-Dimer 737.21 H Sodium Potassium Chloride BUN 33 H Creatinine 5.1 H Glucose Ferritin Alkaline Phosphatase 184 H NT-Pro-B Natriuret Pep > 00111 H Albumin 3.1 L 09/27/19 09/28/19 09/28/19 07:17 10:25 10:25 WBC 3.1 L RBC 2.95 L Hgb 9.3 L Hct 29.6 L MCV 101 H RDW 17.3 H Plt Count 81 L [place] % (Auto) Lymph # Seg Neutrophils # PT INR D-Dimer Sodium Potassium 5.4 H Chloride 97.2 L BUN 25 H Creatinine 3.5 H Glucose Ferritin 457.4 H Alkaline Phosphatase NT-Pro-B Natriuret Pep Albumin 09/30/19 09/30/19 03:44 07:16 WBC RBC Hgb Hct MCV RDW Plt Count [place] % (Auto) Lymph # Seg Neutrophils # PT INR D-Dimer Sodium 133 L Potassium 5.3 H Chloride 93.7 L BUN 29 H Creatinine 3.7 H Glucose 31 L* 108 H Ferritin Alkaline Phosphatase NT-Pro-B Natriuret Pep Albumin
[2019-09-30] MEDS: METOPROLOL TARTRATE 25 MG TAB PO SCH (11:28)
--- NOTE | 2019-09-30 11:57 | Vascular Lab Report ---
DUPLEX DOPPLER LOWER EXTREMITY VEINS, RIGHT INDICATION: Pain right lower ext,right thigh. TECHNIQUE: Duplex doppler imaging was performed through the veins of the right lower extremity using venous compression and other maneuvers. COMPARISON: No relevant prior imaging study available. FINDINGS: Right Common femoral vein: Negative. Right Superficial femoral vein: Negative. Right Popliteal vein: Negative. Right Calf veins: Negative. Additional findings: None.. IMPRESSION: No sonographic evidence for DVT in the right lower extremity. Signer Name: Piero Lang Jr, MD Signed: 09/30/2019 11:52 AM Workstation Name: [id number]
[2019-09-30] MEDS ORDERED: SODIUM POLYSTYRENE 15 GM/60 ML ORAL LIQD PO NR (12:33)
--- NOTE | 2019-09-30 12:59 | Discharge Summary ---
Providers - Providers Date of Admission: 09/27/19 09:31 Date of discharge: 09/30/19 Attending physician: ENEDINA WASHINGTON 09/27/19 09:04 Consult to Physician [CONS] Urgent Comment: DR RAD ZUNIGA W/DR DIAMOND @[id number] Consulting Provider: LYRIC DIAMOND Physician Instructions: Reason For Exam: HI ESRD needs D 09/27/19 09:29 Consult to Case Management [CONS] Urgent Services Needed at Discharge: [facility] [employer] [facility] Notified:: no Comment:: PT WANTS TO BE PLACED IN A NH WITH 09/28/19 10:47 Consult to Physician [CONS] Routine Comment: Consulting Provider: KENNY PINEDA Physician Instructions: Reason For Exam: large right pleural effusion Primary care physician: [facility] MD ARMINDA Hospitalization Condition: Fair Disposition: DC-01 TO HOME OR SELFCARE - Discharge Diagnoses (1) SIRS (systemic inflammatory response syndrome) Status: Acute (2) Severe malnutrition Status: Acute Core Measure Documentation - Palliative Care Palliative Care/ Comfort Measures: Not Applicable - Core Measures Any of the following diagnoses?: none Exam - Constitutional Vitals: Temp Pulse Resp BP Pulse Ox 97.7 F 105 H 18 121/86 96 09/30/19 07:41 09/30/19 11:28 09/30/19 07:41 09/30/19 11:28 09/30/19 09:40 Plan Activity: advance as tolerated Diet: renal Special Instructions: home oxygen via (NC at 2l/min) Plan of Treatment: 1.Follow up with PCP in 2-3 weeks. 2.Continue routine hemodialysis as scheduled. 3.Continue home Oxygen at 2l/min Follow up with: JUANITA ROCKWELL MD [Primary Care Provider] - 7 Days
[2019-09-30 16:42] VITALS: BP 114/85
--- NOTE | 2019-09-30 23:25 | Progress Note ---
Assessment and Plan 1.End stage renal disease on HD: TTS schedule at [facility]. Multiple hospitalizations 2/2 volume overload due to noncompliance with HD treatments. Meds dosage based on GFR. Hemodialysis: 09/26, 09/27. 2. FEN: Volume overload, UF with HD as tolerated, monitor. Monitor lytes and volume status. 3. Anemia: Epogen with HD. 4. Suspected COVID-19: Negative results. 5. Paroxysmal A.fib: Was on Eliquis. 6. Chronic CHF w/ reduced EF: Monitor volume status. 7. Chronic pleural effusion. 8. Type 2 diabetes mellitus: Monitor blood glucose. 9. HTN. - Subjective: Patient was seen and examined at the bedside. Doing ok. - General Appearance General appearance: well-developed, appears stated age, no distress HEENT: ATNC, PERRL, mucous membranes moist, hearing intact, vision intact Neck: neck supple, trachea midline Respiratory: Clear to Ascultation, Decreased Breath Sounds bibasal Heart: regular, tachycardia, S1S2 Gastrointestinal: soft, normoactive bowel sounds, not tender, not distended Integumentary: no rash, warm and dry Neurologic: no focal deficit, no asterixis, alert and oriented x3 Ext: no edema, L forearm amputated, small area of induration over the medial aspect of R thigh Hemodialysis access: R arm AVF Subjective Date of service: 09/30/19 PUI?: Yes COVID19: Negative Objective - Vital Signs Vital signs: Vital Signs - 12hr 09/30/19 09/30/19 11:28 11:45 Temperature 97.5 F L Pulse Rate 105 H 106 H Respiratory 18 Rate Blood Pressure 121/86 114/85 O2 Sat by Pulse 100 Oximetry - Lab 09/28/19 10:25 09/30/19 07:16 Most recent lab results Calcium 9.5 mg/dL (8.4-10.2) 09/30/19 03:44 Phosphorus 3.40 mg/dL (2.5-4.5) 09/27/19 07:17 Magnesium 1.90 mg/dL (1.7-2.3) 09/27/19 07:17 Medications & Allergies - Medications Allergies/Adverse Reactions: Allergies aspirin Allergy (Verified 02/20/19 22:06) Unknown stomach cramps pork derived (porcine) Allergy (Verified 02/20/19 22:06) Rash venom-honey bee [bee venom (honey bee)] Allergy (Verified 02/20/19 22:06) Anaphylaxis Pork/Porcine Containing Products Adverse Reaction (Severe, Verified 02/20/19 22:06) Nausea,VOMITING Home Medications: Home Medications Medication Instructions Recorded Confirmed Last Taken Type Epoetin Prashant 10,000 Unit [Procrit] 10,000 unit SUB-Q KATERYNA PRN vial 05/22/19 09/28/19 09/28/19 Rx Acetaminophen [Acetaminophen TAB] 1 tab PO Q4H PRN #15 tablet 07/08/19 09/28/19 Unknown Rx AtorvaSTATin [Lipitor] 40 mg PO QHS #30 07/23/19 09/28/19 Unknown Rx Lidocain2.5%/Prilocai2.5% [Emla] 1 applic TP MoWeFr tube 07/23/19 09/28/19 Unknown Rx amLODIPine 20 mg PO DAILY #30 07/23/19 09/28/19 Unknown Rx bisacodyL [Dulcolax tab] 5 mg PO DAILY PRN #10 tab 07/29/19 09/28/19 Unknown Rx Sodium Phosphate,[place]-Dibasic 133 ml RC ONCE #1 enema 07/30/19 09/28/19 Unknown Rx [Fleet Enema] Metoprolol [Lopressor TAB] 25 mg PO BID #30 tablet 08/24/19 09/28/19 Unknown Rx Oxycodone HCl [oxyCODONE] 10 mg PO Q6H PRN #14 tab 08/25/19 09/28/19 Unknown Rx oxyCODONE /ACETAMINOPHEN [Percocet 1 tab PO BID PRN #6 tablet 09/11/19 09/28/19 Unknown Rx 5/325 mg] Apixaban [Eliquis] 2.5 mg PO BID 09/30/19 09/30/19 Unknown History
== END 2019-09-30 17:42 | disposition home or self-care (01) | DRG 640 ==
LOC: ED 05:43 → 4A 09:31 → 3A 11:48 → 4A 09-29 13:30
PROVIDERS: ADMIT Internal Medicine; ATTEND Internal Medicine
PROC: 5A1D70Z Performance of Urinary Filtration, Intermittent, Less than 6 Hours Per Day (ICD-10-PCS; principal; 2019-09-27)
PROC: 5A1D70Z Performance of Urinary Filtration, Intermittent, Less than 6 Hours Per Day (ICD-10-PCS; 2019-09-29)
DX: E87.70 Fluid overload, unspecified (principal); N18.6 End stage renal disease; E43 Unspecified severe protein-calorie malnutrition; I48.91 Unspecified atrial fibrillation; D61.818 Other pancytopenia; I50.22 Chronic systolic (congestive) heart failure; D69.6 Thrombocytopenia, unspecified; Z03.818 Encounter for observation for suspected exposure to other biological agents ruled out; Z88.6 Allergy status to analgesic agent; Z91.030 Bee allergy status; Z88.8 Allergy status to other drugs, medicaments and biological substances; Z91.018 Allergy to other foods; I13.2 Hypertensive heart and chronic kidney disease with heart failure and with stage 5 chronic kidney disease, or end stage renal disease; Z99.2 Dependence on renal dialysis; I25.10 Atherosclerotic heart disease of native coronary artery without angina pectoris; J44.9 Chronic obstructive pulmonary disease, unspecified; E11.22 Type 2 diabetes mellitus with diabetic chronic kidney disease; R65.10 Systemic inflammatory response syndrome (SIRS) of non-infectious origin without acute organ dysfunction; D64.9 Anemia, unspecified; J91.8 Pleural effusion in other conditions classified elsewhere; Z68.1 Body mass index [BMI] 19.9 or less, adult
CPT/HCPCS: 36415; 71045; 71260; 80048; 80053; 80074; 80076; 82140; 82728; 82947; 82962; 83615; 83735; 83880; 84100; 84145; 85007; 85025; 85027; 85379; 85610; 85730; 86140; 87040; 87116; 93005; 93010; 94760; 96374; 96375; 96376; G0378; G0257; J0360; J0885; J1200; J2270; J2405; J7030; Q0162; Q9967